=== PATIENT | male | born 1955 | race Caucasian/White ===

== ENCOUNTER 2016-11-07 13:53 | Inpatient (IN) | payer MEDICAID, OTHER ==
[~2016-11-07] VITALS: Ht 160 cm; Wt 84.1 kg
[~2016-11-07 13:53] MED LIST: LACTATED RINGER'S 1000 ML INJ 1,000 ML IV ONE; NEOSTIGMINE 3 MG/3 ML SYR IV ONE; NORMOSOL R INJ 1,000 ML IV ONE; ONDANSETRON HCL 4 MG/2 ML VIAL IV PUSH ONE; PHENYLEPH/NS 1000 MCG/10 ML SYR IV ONE; PROPOFOL 200 MG/20 ML AMP IV ONE; ePHEDrine/NS 25 MG/5 ML SYR IV ONE
[2016-11-07] MEDS ORDERED: DIPHTH/TETANUS/ACEL PERTUSSIS (BOOSTER) 0.5 ML VIAL/PFS IM ONE (13:58)
[2016-11-07] MEDS ORDERED: ceFAZolin 2 GM PREMIX 50 ML ONE (13:58)
[2016-11-07] MEDS ORDERED: MORPHINE SULFATE 8 MG/ML INJ ONE (14:01)
[2016-11-07] MEDS ORDERED: HYDROmorphone HCL PF 1 MG/ML VIAL ONE (14:05)
[2016-11-07 14:07] VITALS: O2SAT 99
[2016-11-07 14:16] LABS: I-STAT POTASSIUM 3.8 MMOL/L (3.5-4.9)
[2016-11-07 14:17] LABS: AUTOMATED NEUTROPHIL # 7.4 TH/MM3 (1.8-7.7); BASOPHIL # 0.2 TH/MM3 (0-0.2); BASOPHIL % 1.3 % (0.0-2.0); EOSINOPHIL # 0.1 TH/MM3 (0-0.4); HEMATOCRIT 40.4 % (39.0-51.0); HEMO FLAGS DIFF FINAL; LYMPH % 20.9 % (9.0-44.0); LYMPHOCYTE # 2.4 TH/MM3 (1.0-4.8); MEAN CELL VOLUME 97.1 FL (80.0-100.0); MEAN CORPUSCULAR HEMOGLOBIN 34.3 PG (27.0-34.0); MEAN CORPUSCULAR HGB CONC 35.3 % (32.0-36.0); MONO % 11.5 % (0.0-8.0); NEUT % 65.3 % (16.0-70.0); PLATELET COUNT 200 TH/MM3 (150-450); RED BLOOD COUNT 4.16 MIL/MM3 (4.50-5.90); RED CELL DISTRIBUTION WIDTH 12.6 % (11.6-17.2); WHITE BLOOD COUNT 11.4 TH/MM3 (4.0-11.0)
[2016-11-07 14:18] VITALS: BP 123/66; PULSE 66; RESP 15; O2SAT 97
[2016-11-07] MEDS ORDERED: LACTATED RINGER'S 1000 ML INJ 1,000 ML IV SCH (14:22)
[2016-11-07 14:28] LABS: APTT (PATIENT) 25.8 SEC (24.3-30.1); INTERNATIONAL NORMALIZED RATIO 0.9 RATIO; PROTHROMBIN TIME - PATIENT 10.2 SEC (9.8-11.6)
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
[2016-11-07] MEDS ORDERED: HYDROmorphone HCL PF 1 MG/ML VIAL IV PRN (14:30)
[2016-11-07] MEDS ORDERED: NALOXONE HCL 0.4 MG/ML AMP IV PRN (14:30)
[2016-11-07] MEDS ORDERED: GENTAMICIN SULFATE 80 MG/2 ML VIAL IM SCH (14:30)
[2016-11-07] MEDS ORDERED: Post-op Orders (for Pharmacy) MISC XX ONE (14:30)
[2016-11-07] MEDS ORDERED: oxyCODONE/ACETAMINOPHEN 10 MG/325 MG TAB PO PRN (14:30)
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
[2016-11-07] MEDS ORDERED: HYDROmorphone HCL PF 1 MG/ML VIAL IV PUSH PRN (14:45)
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
[2016-11-07 15:30] VITALS: BP 123/66
[2016-11-07] MEDS ORDERED: Post-op Orders (for Pharmacy) MISC XX SCH (15:45)
[2016-11-07] MEDS ORDERED: ceFAZolin INJ 1,000 MG VIAL ONE (15:48)
[2016-11-07] MEDS ORDERED: GENTAMICIN SULFATE 80 MG/2 ML VIAL ONE ×2 (15:49→17:10)
[2016-11-07] MEDS ORDERED: ACETAMINOPHEN 1000 MG/100 ML VIAL IV ONE (15:56)
[2016-11-07] MEDS ORDERED: MIDAZOLAM HCL 2 MG/2 ML VIAL ONE (15:56)
[2016-11-07] MEDS ORDERED: FAMOTIDINE 20 MG/2 ML VIAL ONE (15:56)
--- NOTE | 2016-11-07 15:56 | MH ---
cc: MD JOSE,ОЛЬГА DATE OF ADMISSION: 11/07/2016 ADMITTING DIAGNOSIS: Bilateral open comminuted tibia and fibula fractures. HISTORY OF PRESENT ILLNESS: This 50-mkg-dlhf-old male was transferred to our institution as a Priority One Trauma Alert. 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 The patient presents with bilateral open tibia fractures. PAST MEDICAL HISTORY: 1. Diabetes mellitus. 2. Hypertension. PAST SURGICAL HISTORY: CABG. MEDICATIONS: Not known. ALLERGIES: Not known. SOCIAL HISTORY: Not known. PHYSICAL EXAMINATION: GENERAL: The physical examination reveals a 52-xss-ljuf-old male in moderate distress. HEAD, EYES, EARS, NOSE, THROAT: Normocephalic. No trauma to the head. Pupils equal and reactive. Extraocular muscles intact. No hemotympanum. No miner sign. No raccoon's eyes. NECK: Bilateral carotid pulses. No bruits. CHEST: Clear. Bilateral breath sounds. HEART: Regular rhythm. ABDOMEN: Soft. Active bowel sounds. No rebound. No guarding. No masses. EXTREMITIES: The patient has bilateral femoral, bilateral popliteal, posterior tibial and dorsalis pedis pulses on palpation. He has bilateral comminuted tibia and fibula fractures on the left side and mid tibia on the right side, a proximal tibial fracture and then distally above the ankle. NEUROLOGIC: The patient is grossly intact. He is awake, alert and oriented. Motorically he is intact with limitations of moving his legs. He has severe pain in both. BACK: No injury to the back noted. IMPRESSION AND RECOMMENDATIONS: The patient was assessed according to trauma principals. Primary and secondary survey, resuscitation and definitive care were carried out. The patient is resuscitated with fluids, given antibiotics, tetanus and pain medication and is now admitted to the trauma service with orthopedic consult for washout and fixation today. CRITICAL CARE TIME: Thirty-eight (38) minutes. Ольга CARRASCO/SARAH /3:44 PM /3:51 PM
[2016-11-07] MEDS ORDERED: GENTAMICIN SULFATE 80 MG/2 ML VIAL IRRIGATION ONE (16:26)
[2016-11-07] MEDS ORDERED: PANTOPRAZOLE SODIUM 40 MG VIAL IV SCH (17:00)
[2016-11-07] MEDS ORDERED: GENTAMICIN/SOD CHL 80 MG/100 ML IV SCH (17:00)
[2016-11-07] MEDS ORDERED: fentaNYL CITRATE 250 MCG/5 ML AMP ONE (17:03)
[2016-11-07] MEDS ORDERED: BACITRACIN TOP OINT 15 GM TUBE ONE (18:09)
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
--- NOTE | 2016-11-07 18:26 | RADRPT ---
EXAM DATE/TIME: 11/07/2016 17:31 [facility] COMPARISON: No previous studies available for comparison. INDICATIONS : Ex-fix right ankle fracture. Trauma alert. MEDICAL HISTORY : None. SURGICAL HISTORY : None. ENCOUNTER: Subsequent ACUITY: 1 day PAIN SCORE: Non-responsive. LOCATION: Right ankle FINDINGS: 2 spot intraoperative fluoroscopic views of the right ankle demonstrate oblique comminuted fracture o f the distal tibia and fibular fracture with improved alignment and fibular external fixation intrame dullary pin placement. CONCLUSION: Postoperative changes. Mumtaz Cornelius MD on November 07, 2016 at 18:23 Board Certified Radiologist. This report was verified electronically.
[2016-11-07] MEDS ORDERED: DO NOT ADM ANY ANTICOAGULANT DRUGS PRN (18:33)
--- NOTE | 2016-11-07 19:42 | MB ---
cc: JOSE HART DATE OF CONSULTATION 11/07/2016 REASON FOR CONSULTATION Open bilateral tibia and fibula fractures. CONSULTING PHYSICIAN Dr. Anaya. 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 The car apparently slipped off blocks. The car pinned him against a wall. He had severe bilateral leg pain. He presented to the emergency room as a trauma alert. He is found to have bilateral open tibia and fibula fractures. He is currently awake and alert in the emergency department. He complains of bilateral leg pain. He denies loss of consciousness. Pain is worse with movement. PAST MEDICAL HISTORY Illnesses diabetes, hypertension and smoking dependence. SURGERIES Coronary artery bypass. MEDICATIONS Please see EMR for completed list of inpatient medications. ALLERGIES NO KNOWN DRUG ALLERGIES. SOCIAL HISTORY The patient smokes a pack a day. He does drink alcohol. He denies drug use. FAMILY HISTORY Noncontributory. REVIEW OF SYSTEMS The patient denies headache, visual changes, neck pain, chest pain, shortness of breath, abdominal pain, nausea or vomiting or recent weight loss. He complains of bilateral leg pain. PHYSICAL EXAMINATION GENERAL: The patient is a well-developed, well-nourished male in no acute distress. He is awake and alert. He is alert and oriented x3. VITAL SIGNS: Pulse 80, respirations 15, blood pressure 123/65, O2 sat 98% on 3 liters nasal cannula. HEAD: The patient is normocephalic. Pupils are equal. NECK: Soft, nontender. Trachea is midline. ABDOMEN: Soft, nontender, nondistended. EXTREMITIES: Examination of bilateral upper extremities reveals no pain with shoulder, elbow or wrist motion. He has intact sensation in all fingers. He has good cap refill in fingers. Radial pulses are palpable. Examination of left leg reveals no obvious pain or deformity about his hip or knee. He has a large laceration over his mid tibia. There is exposed bone. Dorsalis pedis pulses palpable. He has good cap refill in his foot. Examination of right leg reveals no obvious pain or deformity about his hip or knee. There is obvious deformity around his ankle. There is exposed tibia and fibula fracture noted. There is a large laceration over the ankle joint and posterior calf. X-RAYS X-rays of the left tibia were reviewed. The patient has a comminuted midshaft tibia fracture. X-rays of right ankle were reviewed. The patient has a displaced complex distal tibia and fibula fracture. IMPRESSION 1. Open right tibia and fibula fractures. 2. Open left tibia and fibula fractures. 3. Diabetes. 4. Smoking dependence. PLAN Treatment options were discussed with the patient. At this point I would recommend irrigation debridement of bilateral lower legs today with possible internal fixation versus possible external fixation of fractures. He will likely need multiple surgeries. Risks of surgery include bleeding, infection, injury to arteris, nerves or blood vessels, nonunion, malunion, need for amputation osteomyelitis, painful hardware as well as medical complications including blood clot, stroke, heart attack and . I had a lengthy discussion with the patient regarding the need to stop smoking. If he continues to smoke he has high risk of developing infection and need for amputation. All questions were answered. I will plan on surgery today. A mid-level provider in my office, nurse practitioner or PA, may see this patient on a follow-up basis and continue to implement the objective of this plan including: Starting or adjusting medications, injections of muscle, tendon, bursa or joints, cast application, orthotic or brace application, physical therapy, further radiographic studies including x-ray, MRI, CT, ultrasounds or bone scan, vascular studies, neurologic studies, or other specialist consultations, and proceeding with surgical management as appropriate. MD BASILIO Bazan/ROSEMARIE /6:02 PM /7:33 PM
[2016-11-07] MEDS: KETOROLAC TROMETHAMINE 30 MG/ML (IVP) VIAL IVP SCH (20:00)
[2016-11-07] MEDS: LACTATED RINGER'S 1000 ML INJ 1,000 ML IV SCH (20:00)
[2016-11-07 20:40] VITALS: BP 109/78; PULSE 83; RESP 18; TEMP 96.8; O2SAT 96
[2016-11-07] MEDS: ACETAMINOPHEN/HYDROcodone 325 MG/10 MG TAB PO PRN (20:57)
[2016-11-07] MEDS: ONDANSETRON HCL 4 MG/2 ML VIAL IV PRN (21:36)
[2016-11-07] MEDS: SODIUM CHLORIDE 0.9% FLUSH 10 ML FLUSH IV FLUSH SCH (21:42)
[2016-11-07] MEDS: DOCUSATE SODIUM 100 MG CAP PO SCH (21:43)
[2016-11-08] VITALS (8 sets, daily range): BP systolic 103–119; BP diastolic 58–65; PULSE 69–85; RESP 18; TEMP 96.2–99; O2SAT 94–96
[2016-11-08] MEDS: ceFAZolin 2 GM PREMIX 50 ML IV SCH ×4 (00:42→22:58)
[2016-11-08] MEDS: GENTAMICIN 80 MG PREMIX 100 ML IV SCH ×4 (00:43→22:58)
[2016-11-08] MEDS: ACETAMINOPHEN/HYDROcodone 325 MG/10 MG TAB PO PRN ×6 (03:04→23:25)
[2016-11-08] MEDS: LACTATED RINGER'S 1000 ML INJ 1,000 ML IV SCH ×2 (03:07→07:51)
[2016-11-08] MEDS: MORPHINE SULFATE 4 MG/ML INJ IV PUSH PRN ×2 (04:45→07:50)
[2016-11-08] MEDS: KETOROLAC TROMETHAMINE 30 MG/ML (IVP) VIAL IVP SCH ×2 (05:53→18:21)
--- NOTE | 2016-11-08 06:56 | PD.ORT.PN ---
Subjective Subjective Remarks s/p I&D with exfix application bilateral tibias s/p wound vac application left tibia reports pain. otherwise no new complaints. Objective Vitals Vital Signs Date Time Temp Pulse Resp B/P Pulse Ox O2 Delivery O2 Flow Rate FiO2 11/08/16 04:30 98.7 76 18 105/58 96 11/08/16 00:35 96.2 69 18 103/61 96 11/07/16 20:40 96.8 83 18 109/78 96 11/07/16 20:20 70 14 119/68 97 Nasal Cannula 2 11/07/16 20:12 Room Air 11/07/16 20:00 72 14 122/62 100 Nasal Cannula 2 11/07/16 19:46 78 14 119/63 100 Nasal Cannula 2 11/07/16 19:45 70 14 114/70 99 Nasal Cannula 2 11/07/16 19:30 78 14 119/63 100 Nasal Cannula 2 11/07/16 19:15 71 14 122/63 98 Nasal Cannula 2 11/07/16 19:00 67 14 121/67 97 Nasal Cannula 2 11/07/16 18:45 69 14 159/75 96 Nasal Cannula 2 11/07/16 18:30 98.6 79 14 133/77 97 Nasal Cannula 2 11/07/16 15:30 80 15 123/66 98 11/07/16 14:18 66 15 123/66 97 11/07/16 14:07 99 3.00 I/O 11/07/16 11/07/16 11/07/16 11/08/16 11/08/16 11/08/16 07:00 15:00 23:00 07:00 15:00 23:00 Intake Total 3240 ml 680 ml Output Total 1450 ml 100 ml Balance 1790 ml 580 ml Intake Oral 240 ml IV Total 700 ml 680 ml Other 2300 ml Output Urine Total 1100 ml Drainage Total 200 ml 100 ml Estimated Blood Loss 150 ml # Bowel Movements 0 Result Diagram: 11/07/16 135 Other Results Laboratory Tests Test 11/07/16 13:55 Prothrombin Time 10.2 SEC (9.8-11.6) Prothromb Time International 0.9 RATIO Ratio Imaging Last 24 hours Impressions Pelvis X-Ray 11/07/16 1355 Signed Impressions: Service Date/Time: Monday, November 07, 2016 13:34 - CONCLUSION: No acute disease. Behzad Finch Jr., MD Chest X-Ray 11/07/16 4218 Signed Impressions: Service Date/Time: Monday, November 07, 2016 13:34 - CONCLUSION: No acute disease. Jac Gonzales MD Objective Remarks RLE: Dressings clean and dry. intact. NVI with full sensation and motor function. +exfix. pin sites. clean LLE: +vac. good seal. exfix in place. pin sites clean. no sensation over medial foot. inability to dorsiflex or flex toes/foot. Assessment & Plan Assessment and Plan 1) Bilateral Open Tibia Fractures s/p I&D with exfix/wound vac application - POD 1 -NWB BLE -maintain vac left leg - 125mmHg, intermittent, 3:1 -maintain dressings right leg - pin care BID -npo after MN -hold lovenox -sign consents -potential surgery tomorrow Jef Steve Nov 08, 2016 06:56
[2016-11-08 07:51] LABS: HEMATOCRIT 28.4 % (39.0-51.0); REVIEW FLAG FINAL
[2016-11-08] MEDS: SODIUM CHLORIDE 0.9% FLUSH 10 ML FLUSH IV FLUSH SCH ×2 (07:52→19:46)
[2016-11-08] MEDS: DOCUSATE SODIUM 100 MG CAP PO SCH (07:57)
[2016-11-08] MEDS ORDERED: ACETAMINOPHEN 325 MG TAB PO PRN (08:15)
[2016-11-08] MEDS ORDERED: GLUCAGON 1 MG/ML VIAL OTHER PRN (08:15)
[2016-11-08] MEDS ORDERED: MAGNESIUM HYDROXIDE SUSP 30 ML CUP PO PRN (08:15)
[2016-11-08] MEDS ORDERED: cloNIDine HCL 0.1 MG TAB PO PRN (08:15)
[2016-11-08] MEDS ORDERED: ENALAPRILAT 1.25 MG/ML VIAL IV PRN (08:15)
[2016-11-08] MEDS ORDERED: DEXTROSE 50% IN WATER 50 ML VIAL(D50) IV PRN (08:15)
--- NOTE | 2016-11-08 08:15 | PD.CONS ---
[facility] By Dr Anaya Reason for Consult Medical management of diabetes disease, hypertension and coronary artery disease Primary Care Physician Unknown Diagnoses: History of Present Illness This is a 60sh male who was brought in as a TRAUMA ALERT. He was working on a car when the car apparently slipped off the blocks. The car pinned him against a wall. He had severe bilateral leg pain and sustained bilateral open tibial and fibular fractures. He underwent I and D and external fixation. Wound VAC has been applied on the left lower extremity. He is on IV Ancef and gentamicin. Consultation has been requested by patient's attending to evaluate and manage multiple medical conditions which are CAD, hypertension and diabetes mellitus. He underwent CABG in 2010 and has been pain-free on aspirin, lisinopril, propranolol and pravastatin. He also has hypertension which is controlled on MARGIE inhibitor and beta gil. He also has diabetes mellitus also stable on metformin. Review of Systems Except as stated in HPI: all other systems reviewed are Neg Past Family Social History Allergies: Coded Allergies: No Known Allergies (Unverified , 11/07/16) Past Medical History As previously mentioned Past Surgical History CABG Reported Medications Protonix (Pantoprazole Sodium) 40 Mg Tab 40 Mg PO DAILY Ferrous Sulfate 325 Mg (65 Mg Iron) Tablet 325 Mg PO DAILY Metformin (Metformin HCl) 500 Mg Tab 500 Mg PO BIDPC With meals Propranolol (Propranolol HCl) 80 Mg Tab 80 Mg PO Q12HR Nitroglycerin SL (Nitroglycerin) 0.4 Mg Subl 0.4 Mg SL DIRECTED PRN ONE TABLET UNDER THE TONGUE NEEDED FOR CHEST PAIN, MAY REPEAT EVERY FIVE MINUTES FOR A TOTAL OF 3 DOSES OR CALL 911 IF NO RELIEF Lisinopril 5 Mg Tab 25 Mg PO DAILY Pravastatin 80 Mg Tab 80 Mg PO DAILY Aspirin 81 Mg Chew 81 Mg CHEW DAILY Family History Coronary artery disease Social History He smokes and drinks Physical Exam Vital Signs Vital Signs Date Time Temp Pulse Resp B/P Pulse Ox O2 Delivery O2 Flow Rate FiO2 11/08/16 07:55 96 21 11/08/16 04:30 98.7 76 18 105/58 96 11/08/16 00:35 96.2 69 18 103/61 96 11/07/16 20:40 96.8 83 18 109/78 96 11/07/16 20:20 70 14 119/68 97 Nasal Cannula 2 11/07/16 20:12 Room Air 7/21/17 20:00 72 14 122/62 100 Nasal Cannula 2 11/07/16 19:46 78 14 119/63 100 Nasal Cannula 2 11/07/16 19:45 70 14 114/70 99 Nasal Cannula 2 11/07/16 19:30 78 14 119/63 100 Nasal Cannula 2 11/07/16 19:15 71 14 122/63 98 Nasal Cannula 2 11/07/16 19:00 67 14 121/67 97 Nasal Cannula 2 11/07/16 18:45 69 14 159/75 96 Nasal Cannula 2 11/07/16 18:30 98.6 79 14 133/77 97 Nasal Cannula 2 11/07/16 15:30 80 15 123/66 98 11/07/16 14:18 66 15 123/66 97 11/07/16 14:07 99 3.00 Physical Exam GENERAL: This is a well-nourished, well-developed patient, in no apparent distress. SKIN: No rashes, ecchymoses or lesions. Cool and dry. HEAD: Atraumatic. Normocephalic. No temporal or scalp tenderness. EYES: Pupils equal round and reactive. Extraocular motions intact. No scleral icterus. No injection or drainage. ENT: Nose without bleeding, purulent drainage or septal hematoma. Throat without erythema, tonsillar hypertrophy or exudate. Uvula midline. Airway patent. NECK: Trachea midline. No JVD or lymphadenopathy. Supple, nontender, no meningeal signs. CARDIOVASCULAR: Regular rate and rhythm without murmurs, gallops, or rubs. RESPIRATORY: Clear to auscultation. Breath sounds equal bilaterally. No wheezes , rales, or rhonchi. GASTROINTESTINAL: Abdomen soft, non-tender, nondistended. No hepato-splenomegaly , or palpable masses. No guarding. MUSCULOSKELETAL: Extremities without clubbing, cyanosis, or edema. Ex fix BLE. Decreased left toe movements NEUROLOGICAL: Awake and alert. Cranial nerves II through XII intact. Normal speech. Intermittent bilateral upper intention tremors Laboratory Laboratory Tests Test 11/07/16 11/08/16 13:55 07:19 White Blood Count 11.4 Red Blood Count 4.16 Hemoglobin 14.3 9.9 Bedside Hemoglobin 13.9 Hematocrit 40.4 28.4 Bedside Hematocrit 41.0 Mean Corpuscular Volume 97.1 Mean Corpuscular Hemoglobin 34.3 Mean Corpuscular Hemoglobin 35.3 Concent Red Cell Distribution Width 12.6 Platelet Count 200 Mean Platelet Volume 7.8 Neutrophils (%) (Auto) 65.3 Lymphocytes (%) (Auto) 20.9 Monocytes (%) (Auto) 11.5 Eosinophils (%) (Auto) 1.0 Basophils (%) (Auto) 1.3 Neutrophils # (Auto) 7.4 Lymphocytes # (Auto) 2.4 Monocytes # (Auto) 1.3 Eosinophils # (Auto) 0.1 Basophils # (Auto) 0.2 CBC Comment DIFF FINAL Differential Comment Prothrombin Time 10.2 Prothromb Time International 0.9 Ratio Activated Partial 25.8 Thromboplast Time Bedside Sodium 140 Bedside Potassium 3.8 Bedside Chloride 108 Bedside Blood Urea Nitrogen 13 Bedside Creatinine 0.9 Bedside Glucose 116 Blood Type O POSITIVE Antibody Screen NEGATIVE Crossmatch Leukocyte-Reduced Red Blood Cells Blood Bank Comment Result Diagram: 11/08/16 0719 Imaging EKG tracing interpreted by me with sinus rhythm Chest x-ray image interpreted with no acute cardiopulmonary disease Last Impressions Pelvis X-Ray 11/07/16 1355 Signed Impressions: Service Date/Time: Monday, November 07, 2016 13:34 - CONCLUSION: No acute disease. Behzad Finch Jr., MD Chest X-Ray 11/07/16 1355 Signed Impressions: Service Date/Time: Monday, November 07, 2016 13:34 - CONCLUSION: No acute disease. Jac Gonzales MD Tibia/Fibula X-Ray 11/07/16 0000 Signed Impressions: Service Date/Time: Monday, November 07, 2016 16:44 - CONCLUSION: Postoperative changes. Mumtaz Cornelius MD Ankle X-Ray 11/07/16 0000 Signed Impressions: Service Date/Time: Monday, November 07, 2016 17:31 - CONCLUSION: Postoperative changes. Mumtaz Cornelius MD Assessment and Plan Assessment and Plan This is a male who was brought in as a TRAUMA ALERT. He was working on a car when the car apparently slipped off the blocks. The car pinned him against a wall. He had severe bilateral leg pain and sustained bilateral open tibial and fibular fractures. He underwent I and D and external fixation. Wound VAC has been applied on the left lower extremity. He is on IV Ancef and gentamicin. Continue postoperative care with physical therapy, wound care, incentive spirometry, pain management with Lortab and IV morphine and DVT prophylaxis with Lovenox currently on hold for possible surgery in the morning. Consultation has been requested by patient's attending to evaluate and manage multiple medical conditions which are CAD, hypertension and diabetes mellitus. Coronary artery disease. EKG tracing with sinus rhythm. He is pain-free. Restart aspirin if okay with orthopedic surgery, MARGIE inhibitor, beta gil and statin Hypertension. Stable. Continue above-named mentioned medications. Monitor with as needed clonidine and IV Vasotec Diabetes mellitus. Monitor fingerstick sugars sliding scale coverage. Hold metformin for now Tobacco abuse. Counseled Alcohol abuse. CIWA protocol. Counseled Chronic tremors. Patient on Inderal Leukocytosis likely reactive. Monitor Discussed Condition With Patient Trent Leon MD Nov 08, 2016 08:15
[2016-11-08] MEDS ORDERED: METF500T PO (10:32)
[2016-11-08] MEDS ORDERED: PROT40TA PO (10:32)
[2016-11-08] MEDS ORDERED: NITR1SUB3 SL (10:32)
[2016-11-08] MEDS ORDERED: PRAV80TA2 PO (10:32)
[2016-11-08] MEDS ORDERED: LISI-519 PO (10:32)
[2016-11-08] MEDS ORDERED: PROP80TA PO (10:32)
[2016-11-08] MEDS ORDERED: FERR325T8 PO (10:32)
[2016-11-08] MEDS ORDERED: ASPI81CH CHEW (10:32)
[2016-11-08] MEDS: INSULIN ASPART SUPPLEMENTAL SCALE SQ SCH ×3 (10:57→20:21)
--- NOTE | 2016-11-08 12:26 | EKG ---
Date Performed: 11/07/2016 Time Performed: 15:53:25 PTAGE: 89 years EKG: Sinus rhythm NORMAL ECG INTERPRETATION BASED ON A DEFAULT AGE OF 40 YEARS NO PREVIOUS TRACING DOCTOR: Jhon De Luna Interpretating Date/Time 11/08/2016 12:20:39
[2016-11-08] MEDS ORDERED: LACTULOSE SYRUP 20 GM/30 ML CUP PO PRN (12:45)
[2016-11-08] MEDS ORDERED: PILL SPLITTER OTHER PRN (12:45)
[2016-11-08] MEDS ORDERED: NITROGLYCERIN 0.4 MG SL 25 TABS/BTL SL PRN (12:45)
--- NOTE | 2016-11-08 12:59 | HHI.PR ---
Subjective Subjective Notes S/P Bilateral tib/fib I & D, bilateral external fixation Complains of leg pain Reports he has a baseline tremor, denies ETOH abuse Objective Vitals/I&O Vital Signs Date Time Temp Pulse Resp B/P Pulse Ox O2 Delivery O2 Flow Rate FiO2 11/08/16 11:39 98.8 78 18 119/65 94 11/08/16 07:55 21 11/07/16 20:20 Nasal Cannula 2 Labs Laboratory Tests Test 11/07/16 11/08/16 13:55 07:19 White Blood Count 11.4 Red Blood Count 4.16 Hemoglobin 14.3 9.9 Bedside Hemoglobin 13.9 Hematocrit 40.4 28.4 Bedside Hematocrit 41.0 Mean Corpuscular Volume 97.1 Mean Corpuscular Hemoglobin 34.3 Mean Corpuscular Hemoglobin 35.3 Concent Red Cell Distribution Width 12.6 Platelet Count 200 Mean Platelet Volume 7.8 Neutrophils (%) (Auto) 65.3 Lymphocytes (%) (Auto) 20.9 Monocytes (%) (Auto) 11.5 Eosinophils (%) (Auto) 1.0 Basophils (%) (Auto) 1.3 Neutrophils # (Auto) 7.4 Lymphocytes # (Auto) 2.4 Monocytes # (Auto) 1.3 Eosinophils # (Auto) 0.1 Basophils # (Auto) 0.2 CBC Comment DIFF FINAL Differential Comment Prothrombin Time 10.2 Prothromb Time International 0.9 Ratio Activated Partial 25.8 Thromboplast Time Bedside Sodium 140 Bedside Potassium 3.8 Bedside Chloride 108 Bedside Blood Urea Nitrogen 13 Bedside Creatinine 0.9 Bedside Glucose 116 Blood Type O POSITIVE Antibody Screen NEGATIVE Crossmatch Leukocyte-Reduced Red Blood Cells Blood Bank Comment Radiology Last Impressions Pelvis X-Ray 11/07/16 1355 Signed Impressions: Service Date/Time: Monday, November 07, 2016 13:34 - CONCLUSION: No acute disease. Behzad Finch Jr., MD Chest X-Ray 11/07/16 1355 Signed Impressions: Service Date/Time: Monday, November 07, 2016 13:34 - CONCLUSION: No acute disease. Jac Gonzales MD Tibia/Fibula X-Ray 11/07/16 0000 Signed Impressions: Service Date/Time: Monday, November 07, 2016 16:44 - CONCLUSION: Postoperative changes. Mumtaz Cornelius MD Ankle X-Ray 11/07/16 0000 Signed Impressions: Service Date/Time: Monday, November 07, 2016 17:31 - CONCLUSION: Postoperative changes. Mumtaz Cornelius MD Narrative Exam GENERAL: Adult male in his 60s lying in bed. SKIN: Warm and dry. HEAD: Atraumatic. Normocephalic. NECK: Trachea midline. No JVD. CARDIOVASCULAR: Regular rate and rhythm. RESPIRATORY: No accessory muscle use. Lungs clear to auscultation. Breath sounds equal bilaterally. GASTROINTESTINAL: Abdomen soft, non-tender, nondistended. + BS. MUSCULOSKELETAL: Extremities without cyanosis, or edema. Bilateral legs with external fixators in place. LLE with wound vac. + pulses NEUROLOGICAL: Awake and alert. Normal speech. Patient with tremors in hands. A/P Assessment and Plan INJURIES: BILAT Open tib/fib fxs 11/07: Bilateral tib/fib I & D, bilateral external fixation PMHx: HLD, DM, HTN, CAD, CVA, GERD, tremor? Diet: ADA Pulmonary: IS Pain: [place], Toradol IV, Added Neurontin 400 TID, Increased IV Morphine Activity:BR. PT ordered (NWB BLE) GI: PO Protonix Bowel: Elke-colace, PRN Lactulose. LBM 0 DVT: SCDs, Lovenox 30 BID BILAT Open tib/fib fxs Orthopedics consulted 11/07: Bilateral tib/fib I & D, bilateral external fixation Pain control PT ordered- W/C training NWB BLE ABX: Gentamycin Ortho plans to take patient back to the OR possible tomorrow Plan of care discussed with patient, family and RN at bedside. Case management consulted to assist with discharge planning. Alina Sosa Nov 08, 2016 12:59
[2016-11-08] MEDS ORDERED: LORazepam 2 MG/ML VIAL IV PUSH PRN ×4 (13:00)
[2016-11-08] MEDS ORDERED: FLUMAZENIL 0.5 MG/5 ML VIAL IV PUSH PRN (13:00)
[2016-11-08] MEDS ORDERED: HALOPERIDOL LACTATE 5 MG/ML AMP IM PRN (13:00)
[2016-11-08] MEDS ORDERED: LORazepam 1 MG TAB PO PRN (13:00)
[2016-11-08] MEDS ORDERED: LORazepam 2 MG TAB PO PRN (13:00)
[2016-11-08] MEDS: PANTOPRAZOLE SOD 40 MG DELAYED RELEASE TAB PO SCH (13:15)
[2016-11-08] MEDS: CALCIUM CARBONATE 500 MG CHEWABLE TAB CHEW PRN (13:15)
[2016-11-08] MEDS: ASPIRIN 81 MG CHEW TAB CHEW SCH (13:15)
[2016-11-08] MEDS: MORPHINE SULFATE 8 MG/ML INJ IV PUSH PRN (13:15)
[2016-11-08] MEDS: FERROUS SULFATE 325 MG (65 MG ELEMENTAL IRON) TAB PO SCH (13:16)
[2016-11-08] MEDS: GABAPENTIN 400 MG CAP PO SCH ×2 (13:16→18:20)
[2016-11-08] MEDS: LISINOPRIL 10 MG TAB PO SCH (13:16)
[2016-11-08] MEDS: DOCUSATE SODIUM 50 MG/SENNA 8.6 MG TAB PO SCH ×2 (13:16→19:44)
[2016-11-08] MEDS ORDERED: ENOXAPARIN SODIUM 30 MG/0.3 ML SYRINGE SQ SCH (17:00)
[2016-11-08] MEDS: PRAVASTATIN SOD 80 MG TAB PO SCH (19:45)
[2016-11-08] MEDS: PROPRANOLOL HCL 80 MG TAB PO SCH (19:47)
[2016-11-08] MEDS ORDERED: SENN1TAB PO (20:12)
[2016-11-08] MEDS ORDERED: MAGN400S PO (20:12)
[2016-11-08] MEDS ORDERED: COMMODE 3-IN-11 MIS (20:16)
[2016-11-08] MEDS ORDERED: TUB TRANSFER BO1 MIS (20:16)
[2016-11-08] MEDS ORDERED: BEDSIDE COMMODE1 MI1 (20:16)
[2016-11-08] MEDS ORDERED: WHEEMIS3 (20:16)
[2016-11-09] VITALS (7 sets, daily range): BP systolic 93–121; BP diastolic 55–69; PULSE 73–95; RESP 18–20; TEMP 96.9–100.4; O2SAT 92–95
[2016-11-09] MEDS ORDERED: INSULIN HUMAN REGULAR 1,000 UNITS/10 ML VIAL SQ PRN (00:45)
[2016-11-09] MEDS ORDERED: CHLORHEXIDINE GLUCONATE 2 % 1 PACK (2 CLOTHS) TOPICAL PRN (00:45)
[2016-11-09] MEDS ORDERED: POVIDONE IODINE 5% (ANTISEPSIS KIT) 4 APPLICATIONS EACH NARE PRN (00:45)
[2016-11-09] MEDS ORDERED: METOPROLOL TARTRATE 25 MG TAB PO PRN (00:45)
[2016-11-09] MEDS ORDERED: LACTATED RINGER'S 1000 ML IV PRN (00:45)
[2016-11-09] MEDS ORDERED: SODIUM CHLORID 0.9% 500 ML IV PRN (00:45)
[2016-11-09] MEDS: ACETAMINOPHEN/HYDROcodone 325 MG/10 MG TAB PO PRN ×5 (03:27→23:46)
[2016-11-09] MEDS: MORPHINE SULFATE 8 MG/ML INJ IV PUSH PRN ×3 (04:08→17:45)
[2016-11-09] MEDS: KETOROLAC TROMETHAMINE 30 MG/ML (IVP) VIAL IVP SCH ×2 (06:26→17:47)
[2016-11-09] MEDS: INSULIN ASPART SUPPLEMENTAL SCALE SQ SCH ×4 (06:26→20:16)
--- NOTE | 2016-11-09 06:40 | PD.ORT.PN ---
Subjective Subjective Remarks s/p I&D with exfix application bilateral tibias s/p wound vac application left tibia reports pain. otherwise no new complaints. Objective Vitals Vital Signs Date Time Temp Pulse Resp B/P Pulse Ox O2 Delivery O2 Flow Rate FiO2 11/09/16 04:04 99.0 84 18 98/66 95 11/09/16 00:07 98.0 74 18 95/58 95 11/08/16 23:14 80 11/08/16 20:35 98.5 82 18 109/60 96 11/08/16 20:21 18 11/08/16 19:36 18 11/08/16 16:00 99.0 85 18 118/62 95 11/08/16 11:39 98.8 78 18 119/65 94 11/08/16 08:00 98.7 77 18 109/62 94 11/08/16 07:55 96 21 I/O 11/08/16 11/08/16 11/08/16 11/09/16 11/09/16 11/09/16 07:00 15:00 23:00 07:00 15:00 23:00 Intake Total 920 ml 1816 ml 420 ml Output Total 500 ml 1025 ml 1000 ml 50 ml Balance 420 ml 791 ml -580 ml -50 ml Intake Oral 240 ml 900 ml 420 ml IV Total 680 ml 916 ml Output Urine Total 400 ml 950 ml 1000 ml Drainage Total 100 ml 75 ml 50 ml # Bowel Movements 0 0 0 Result Diagram: 11/08/16 0719 Imaging Last 24 hours Impressions Pelvis X-Ray 11/07/16 1355 Signed Impressions: Service Date/Time: Monday, November 07, 2016 13:34 - CONCLUSION: No acute disease. Behzad Finch Jr., MD Chest X-Ray 11/07/16 1355 Signed Impressions: Service Date/Time: Monday, November 07, 2016 13:34 - CONCLUSION: No acute disease. Jac Gonzales MD Objective Remarks RLE: Dressings clean and dry. intact. NVI with full sensation and motor function. +exfix. pin sites. clean LLE: +vac. good seal. exfix in place. pin sites clean. no sensation over medial foot. inability to dorsiflex or flex toes/foot. Assessment & Plan Assessment and Plan 1) Bilateral Open Tibia Fractures s/p I&D with exfix/wound vac application - POD 2 -NWB BLE -maintain vac left leg - 125mmHg, intermittent, 3:1 -maintain dressings right leg - pin care BID -no surgery today. -restart diet -npo after MN -hold lovenox -sign consents -potential surgery tomorrow Jef Steve Nov 09, 2016 06:40
[2016-11-09 07:00] LABS: AUTOMATED NEUTROPHIL # 10.6 TH/MM3 (1.8-7.7); BASOPHIL % 0.3 % (0.0-2.0); EOSINOPHIL # 0.1 TH/MM3 (0-0.4); EOSINOPHIL % 0.7 % (0.0-4.0); HEMATOCRIT 26.9 % (39.0-51.0); HEMO FLAGS DIFF FINAL; LYMPH % 7.1 % (9.0-44.0); LYMPHOCYTE # 0.9 TH/MM3 (1.0-4.8); MEAN CELL VOLUME 97.7 FL (80.0-100.0); MEAN CORPUSCULAR HEMOGLOBIN 34.5 PG (27.0-34.0); MEAN CORPUSCULAR HGB CONC 35.3 % (32.0-36.0); MONO % 11.6 % (0.0-8.0); NEUT % 80.3 % (16.0-70.0); PLATELET COUNT 114 TH/MM3 (150-450); RED BLOOD COUNT 2.76 MIL/MM3 (4.50-5.90); RED CELL DISTRIBUTION WIDTH 12.4 % (11.6-17.2); WHITE BLOOD COUNT 13.3 TH/MM3 (4.0-11.0)
[2016-11-09 07:23] LABS: ALT (GPT) 17 U/L (12-78); ANION GAP 7 MEQ/L (5-15); AST (GOT) 61 U/L (15-37); BICARBONATE 28.2 MEQ/L (21.0-32.0); BLOOD UREA NITROGEN 6 MG/DL (7-18); CHLORIDE 104 MEQ/L (98-107); GLOMERULAR FILTRATION RATE 132 ML/MIN (>89); MAGNESIUM 1.9 MG/DL (1.5-2.5); POTASSIUM 3.6 MEQ/L (3.5-5.1); SODIUM (NA) 139 MEQ/L (136-145)
[2016-11-09 07:25] LABS: ALKALINE PHOSPHATASE 52 U/L (45-117); TOTAL BILIRUBIN ADULT 0.6 MG/DL (0.2-1.0)
[2016-11-09] MEDS: GENTAMICIN 80 MG PREMIX 100 ML IV SCH ×3 (08:45→23:43)
[2016-11-09] MEDS: ceFAZolin 2 GM PREMIX 50 ML IV SCH ×3 (08:45→23:42)
[2016-11-09] MEDS: DOCUSATE SODIUM 50 MG/SENNA 8.6 MG TAB PO SCH ×2 (08:46→20:15)
[2016-11-09] MEDS: PROPRANOLOL HCL 80 MG TAB PO SCH ×3 (08:48→20:19)
[2016-11-09] MEDS: MULTIVITAMINS/MINERALS THERAPEUTIC TAB PO SCH (08:48)
[2016-11-09] MEDS: FOLIC ACID 1 MG TAB PO SCH (08:48)
[2016-11-09] MEDS: FERROUS SULFATE 325 MG (65 MG ELEMENTAL IRON) TAB PO SCH (08:48)
[2016-11-09] MEDS: GABAPENTIN 400 MG CAP PO SCH ×3 (08:48→17:47)
[2016-11-09] MEDS: ASPIRIN 81 MG CHEW TAB CHEW SCH (08:48)
[2016-11-09] MEDS: THIAMINE HCL 100 MG TAB PO SCH (08:49)
[2016-11-09] MEDS: PANTOPRAZOLE SOD 40 MG DELAYED RELEASE TAB PO SCH (08:49)
[2016-11-09] MEDS: LISINOPRIL 10 MG TAB PO SCH (08:51)
[2016-11-09] MEDS: SODIUM CHLORIDE 0.9% FLUSH 10 ML FLUSH IV FLUSH SCH ×2 (08:51→20:15)
[2016-11-09] MEDS ORDERED: POTASSIUM CHLORIDE 20 MEQ CONTROLLED RELEASE TAB PO ONE (11:00)
--- NOTE | 2016-11-09 12:15 | HHI.PR ---
Subjective Subjective Notes PTD: 2 Patient sitting up in bed. No distress noted. Patient states, "I'll live, I guess." Objective Vitals/I&O Vital Signs Date Time Temp Pulse Resp B/P Pulse Ox O2 Delivery O2 Flow Rate FiO2 11/09/16 08:00 98.3 95 20 93/55 94 11/08/16 07:55 21 11/07/16 20:20 Nasal Cannula 2 Labs Laboratory Tests Test 11/09/16 06:09 White Blood Count 13.3 Red Blood Count 2.76 Hemoglobin 9.5 Hematocrit 26.9 Mean Corpuscular Volume 97.7 Mean Corpuscular Hemoglobin 34.5 Mean Corpuscular Hemoglobin 35.3 Concent Red Cell Distribution Width 12.4 Platelet Count 114 Mean Platelet Volume 8.2 Neutrophils (%) (Auto) 80.3 Lymphocytes (%) (Auto) 7.1 Monocytes (%) (Auto) 11.6 Eosinophils (%) (Auto) 0.7 Basophils (%) (Auto) 0.3 Neutrophils # (Auto) 10.6 Lymphocytes # (Auto) 0.9 Monocytes # (Auto) 1.5 Eosinophils # (Auto) 0.1 Basophils # (Auto) 0.0 CBC Comment DIFF FINAL Differential Comment Sodium Level 139 Potassium Level 3.6 Chloride Level 104 Carbon Dioxide Level 28.2 Anion Gap 7 Blood Urea Nitrogen 6 Creatinine 0.62 Estimat Glomerular Filtration 132 Rate Random Glucose 112 Calcium Level 8.0 Magnesium Level 1.9 Total Bilirubin 0.6 Aspartate Amino Transf 61 (AST/SGOT) Alanine Aminotransferase 17 (ALT/SGPT) Alkaline Phosphatase 52 Total Protein 5.9 Albumin 2.6 Radiology Last Impressions Pelvis X-Ray 11/07/16 1355 Signed Impressions: Service Date/Time: Monday, November 07, 2016 13:34 - CONCLUSION: No acute disease. Behzad Finch Jr., MD Chest X-Ray 11/07/16 1355 Signed Impressions: Service Date/Time: Monday, November 07, 2016 13:34 - CONCLUSION: No acute disease. Jac Gonzales MD Tibia/Fibula X-Ray 11/07/16 0000 Signed Impressions: Service Date/Time: Monday, November 07, 2016 16:44 - CONCLUSION: Postoperative changes. Mumtaz Cornelius MD Ankle X-Ray 11/07/16 0000 Signed Impressions: Service Date/Time: Monday, November 07, 2016 17:31 - CONCLUSION: Postoperative changes. Mumtaz Cornelius MD Narrative Exam GENERAL: This is a 61-year-old male lying in bed. No distress noted. Pleasant and cooperative. SKIN: Warm and dry. HEAD: Atraumatic. Normocephalic. EYES: PERRLA ENT: No nasal bleeding or discharge. Mucous membranes pink and moist. NECK: Trachea midline. No JVD. CARDIOVASCULAR: Regular rate and rhythm. RESPIRATORY: No accessory muscle use. Lungs are clear to auscultation. Breath sounds equal bilaterally. No distress or dyspnea. GASTROINTESTINAL: BS + x 4 quads. Abdomen soft, non-tender, nondistended. MUSCULOSKELETAL: Extremities without cyanosis, or edema. Bilateral lower extremity ex-fixes in place . Pin sites intact and healthy . Wound vac noted to LEFT lower extremity. + peripheral pulses x 4 extremities. Warm with good capillary refill and sensation. MAEW. NEUROLOGICAL: Awake and alert. Normal speech and pattern. 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 PMHx: HLD, DM, HTN, CAD, CVA, GERD, tremor? INJURIES: BILAT Open tib/fib fxs Procedures: 11/07: Bilateral tib/fib I & D, bilateral external fixation w wound vac to LEFT 11/10: Back to OR with ortho Consults: Orthopedics. Hospitalists. Diet: Regular ADA diet. Tolerating po diet. Encourage good po intake with each meal. Pulmonary: Encourage good pulmonary toileting. IS at bedside and pt encouraged to use. Rationale for use explained to patient, and verbalized understanding. Intensified with acapella and EZ pap. Follow-up labs in the morning. DC IV fluids Hypertension management: Lisinopril. Propanolol. (Pravachol). PAIN Management: [place] 15 mg. Morphine 6 mg q 2h. Toradol 30 mg q 12 h. Neurontin 400 mg TID. CIWA protocol in place, with the addition of Haldol 2 mg PRN Activity: BR. PT and OT ordered. (NWB BLE) wheelchair training. GI prophylaxis: Protonix po. Bowel regimen: Elke-colace and MOM. Lactulose. LBM: 0 DVT prophylaxis: Mechanical VTE with SCDs. Chemical management with Lovenox 30 BID SQ - on hold for surgery tomorrow. DC Planning: Case management consulted for assistance with final discharge disposition. Emotional support provided to patient and family at bedside and plan of care discussed. Discussed with RN at bedside. Patient is hemodynamically stable and being managed on the med/surg floor. BILAT Open tib/fib fxs Orthopedics consulted and assisting in management and care 11/07: Bilateral tib/fib I & D, bilateral external fixation w wound vac to LEFT 11/10: Return to OR with ortho Pain management. PT and OT ordered Wheelchair training NWB BLE IV antibiotics DVT prophylaxis Hypertension Diabetes Hospitalist consulted and assisting in management and care Resume home medications - lisinopril. Propanolol. Resume Pravachol ADA diet Sliding-scale insulin EtOH abuse CIWA protocol Haldol 2 mg PRN MVI Serial neuro checks Monitor for withdrawal Problem Qualifiers (1) Fracture of tibia, left, open: Qualified Code: S82.255B - Type I or II open nondisplaced comminuted fracture of shaft of left tibia, initial encounter (2) Fracture of tibia, right, open: Qualified Code: S82.251C - Type III open displaced comminuted fracture of shaft of right tibia, initial encounter Josefina Yin Nov 09, 2016 12:15
--- NOTE | 2016-11-09 12:18 | HHI.PR ---
Subjective Remarks Follow-up bilateral lower extremity fractures. States he is doing okay pain currently managed. Requesting a clipper to cut avulsed skin right middle finger which he sustained 1 week ago when finger got caught. Dw RN, low normal BP from pain meds denies dizziness, syncope, chest pain and shortness of breath Objective Vitals Vital Signs Date Time Temp Pulse Resp B/P Pulse Ox O2 Delivery O2 Flow Rate FiO2 11/09/16 08:00 98.3 95 20 93/55 94 11/09/16 04:04 99.0 84 18 98/66 95 11/09/16 00:07 98.0 74 18 95/58 95 11/08/16 23:14 80 11/08/16 20:35 98.5 82 18 109/60 96 11/08/16 20:21 18 11/08/16 19:36 18 11/08/16 16:00 99.0 85 18 118/62 95 I/O 11/08/16 11/08/16 11/08/16 11/09/16 11/09/16 11/09/16 07:00 15:00 23:00 07:00 15:00 23:00 Intake Total 920 ml 1816 ml 420 ml 0 ml Output Total 500 ml 1025 ml 1000 ml 600 ml Balance 420 ml 791 ml -580 ml -600 ml Intake Oral 240 ml 900 ml 420 ml 0 ml IV Total 680 ml 916 ml Output Urine Total 400 ml 950 ml 1000 ml 550 ml Drainage Total 100 ml 75 ml 50 ml # Bowel Movements 0 0 0 0 Result Diagram: 11/09/1609 11/09/16 06 Objective Remarks Well-developed, well-nourished in no distress Lungs are clear equal expansion Regular rate and rhythm no murmur Intermittent intention tremors Bilateral lower extremities with external fixator. Decrease bowel movements worse on the left Procedures s/p I&D with exfix application bilateral tibias s/p wound vac application left tibia With the assistance of RN, under sterile technique the avulsed skin of the right middle finger was clipped. No bleeding noted. Patient gave consent A/P Problem List: (1) Fracture of tibia, left, open ICD Code: S82.202B Status: Acute (2) Fracture of tibia, right, open ICD Code: S82.201B Status: Acute Assessment and Plan This is a male who was brought in as a TRAUMA ALERT. He was working on a car when the car apparently slipped off the blocks. The car pinned him against a wall. He had severe bilateral leg pain and sustained bilateral open tibial and fibular fractures. He underwent I and D and external fixation. Wound VAC has been applied on the left lower extremity. He is on IV Ancef and gentamicin. Continue postoperative care with physical therapy, wound care, incentive spirometry, pain management with Lortab and IV morphine and DVT prophylaxis with Lovenox currently on hold for possible surgery in the morning. Consultation has been requested by patient's attending to evaluate and manage multiple medical conditions which are CAD, hypertension and diabetes mellitus. Coronary artery disease. EKG tracing with sinus rhythm. He is pain-free. Restart aspirin if okay with orthopedic surgery, MARGIE inhibitor, beta gil and statin Hypertension. Low normal BP readings likely secondary to narcotic. He is asymptomatic. Continue above-named mentioned medications with hold parameters. Monitor with as needed clonidine and IV Vasotec Diabetes mellitus. Monitor fingerstick sugars sliding scale coverage. Hold metformin for now Tobacco abuse. Counseled Alcohol abuse. CIWA protocol. Counseled Slightly elevated AST secondary to call use. We'll monitor Chronic tremors. Patient on Inderal Leukocytosis likely reactive. Monitor. UA pending Wound care. Discharge Planning I spent 35 minutes [id number] with the patient or on the miller discussing the patient's disposition, prognosis, and plan of care with patient's caregivers. Over half the time spent was devoted to counseling the patient regarding care with caregivers Problem Qualifiers (1) Fracture of tibia, left, open: Qualified Code: S82.255B - Type I or II open nondisplaced comminuted fracture of shaft of left tibia, initial encounter (2) Fracture of tibia, right, open: Qualified Code: S82.251C - Type III open displaced comminuted fracture of shaft of right tibia, initial encounter Trent Leon MD Nov 09, 2016 12:18
[2016-11-09 12:19] LABS: HEMOGLOBIN A1a 1.7 %; HEMOGLOBIN A1b 0.7 %; HEMOGLOBIN Ao 84.9 %; HEMOGLOBIN F 1.3 %; HEMOGLOBIN LA1C 1.6 %; HEMOGLOBIN P3 3.3 %
[2016-11-09] MEDS: PRAVASTATIN SOD 80 MG TAB PO SCH (20:15)
[2016-11-10] VITALS (8 sets, daily range): BP systolic 100–110; BP diastolic 54–60; PULSE 83–105; RESP 16–19; TEMP 99–99.6; O2SAT 92–95
[2016-11-10] MEDS: MORPHINE SULFATE 8 MG/ML INJ IV PUSH PRN ×3 (02:56→18:43)
[2016-11-10] MEDS: KETOROLAC TROMETHAMINE 30 MG/ML (IVP) VIAL IVP SCH (05:32)
[2016-11-10] MEDS: INSULIN ASPART SUPPLEMENTAL SCALE SQ SCH ×4 (05:49→22:31)
--- NOTE | 2016-11-10 06:51 | PD.ORT.PN ---
Subjective Subjective Remarks s/p I&D with exfix application bilateral tibias s/p wound vac application left tibia reports pain. otherwise no new complaints. Objective Vitals Vital Signs Date Time Temp Pulse Resp B/P Pulse Ox O2 Delivery O2 Flow Rate FiO2 11/10/16 00:48 99.0 88 18 103/58 95 11/09/16 20:16 99.0 73 19 95/69 93 11/09/16 19:25 88 11/09/16 16:00 100.4 95 18 121/69 92 11/09/16 12:00 96.9 87 20 106/57 94 11/09/16 08:00 98.3 95 20 93/55 94 I/O 11/09/16 11/09/16 11/09/16 11/10/16 11/10/16 11/10/16 06:59 14:59 22:59 06:59 14:59 22:59 Intake Total 0 ml 1396 ml 360 ml 170 ml Output Total 600 ml 650 ml 650 ml 650 ml Balance -600 ml 746 ml -290 ml -480 ml Intake Oral 0 ml 600 ml 360 ml 0 ml IV Total 796 ml 170 ml Output Urine Total 550 ml 650 ml 650 ml 650 ml Drainage Total 50 ml 0 ml # Bowel Movements 0 0 0 0 Result Diagram: 11/09/16 0609 11/09/16 06 Imaging Last 24 hours Impressions Pelvis X-Ray 11/07/16 1355 Signed Impressions: Service Date/Time: Monday, November 07, 2016 13:34 - CONCLUSION: No acute disease. Behzad Finch Jr., MD Chest X-Ray 11/07/16 1355 Signed Impressions: Service Date/Time: Monday, November 07, 2016 13:34 - CONCLUSION: No acute disease. Jac Gonzales MD Objective Remarks RLE: Dressings clean and dry. intact. NVI with full sensation and motor function. +exfix. pin sites. clean LLE: +vac. good seal. exfix in place. pin sites clean. no sensation over medial foot. inability to dorsiflex or flex toes/foot. Assessment & Plan Assessment and Plan 1) Bilateral Open Tibia Fractures s/p I&D with exfix/wound vac application - POD 3 -NWB BLE -maintain vac left leg - 125mmHg, intermittent, 3:1 -maintain dressings right leg - pin care BID -surgery today Jef Steve Nov 10, 2016 06:51
[2016-11-10 07:13] LABS: HEMATOCRIT 26.9 % (39.0-51.0); MEAN CELL VOLUME 98.6 FL (80.0-100.0); MEAN CORPUSCULAR HEMOGLOBIN 33.7 PG (27.0-34.0); MEAN CORPUSCULAR HGB CONC 34.2 % (32.0-36.0); PLATELET COUNT 112 TH/MM3 (150-450); RED BLOOD COUNT 2.73 MIL/MM3 (4.50-5.90); RED CELL DISTRIBUTION WIDTH 12.5 % (11.6-17.2); REVIEW FLAG FINAL; WHITE BLOOD COUNT 11.8 TH/MM3 (4.0-11.0)
[2016-11-10 07:36] LABS: BICARBONATE 28.3 MEQ/L (21.0-32.0); POTASSIUM 3.8 MEQ/L (3.5-5.1)
[2016-11-10] MEDS: GENTAMICIN 80 MG PREMIX 100 ML IV SCH ×3 (08:16→16:30)
[2016-11-10] MEDS: ceFAZolin 2 GM PREMIX 50 ML IV SCH ×2 (08:16→16:29)
[2016-11-10] MEDS ORDERED: FAMOTIDINE 20 MG/2 ML VIAL ONE (08:51)
[2016-11-10] MEDS ORDERED: RESP: ALBUTEROL 2.5 MG/3 ML NEB (PRN) ONE (08:53)
--- NOTE | 2016-11-10 08:56 | MP ---
cc: SALBADOR HART DATE OF SURGERY 11/07/2016 PREOPERATIVE DIAGNOSES 1. Open left tibia and fibula fractures. 2. Open right tibia and fibula fractures. POSTOPERATIVE DIAGNOSES 1. Open left tibia and fibula fractures. 2. Open right tibia and fibula fractures. SURGEON Salbador Hart MD. MERCHANDISING EXECUTION MANAGER SURGEON Jef Steve PA-C. The surgical procedure was assisted by my physician assistant professor of marine biology. My PA's presence was necessary throughout this case for the manipulation and positioning of the surgical extremity. My PA was assisting me throughout the duration of this procedure. The skill set of a physician assistant professor of marine biology was medically necessary to complete this procedure. During the surgical case the surgical consultant was working at the back table and the physician assistant professor of marine biology was directly assisting me. PROCEDURE 1. Left tibia and fibula irrigation and debridement. 2. Open reduction of left tibia fracture. 3. External fixation of left tibia fracture. 4. Application of wound VAC dressing 5. Irrigation and debridement of right tibia and fibula fractures. 6. Open reduction of right tibia and fibula fractures. 7. External fixation of right tibia fracture. 8. Open reduction internal fixation of right fibula fracture. 9. Complex wound closure of a 20-cm laceration. DETAILS OF PROCEDURE This patient known as Jonathan Cloud was working on a car when it pinned him against a wall. He was seen and evaluated preoperatively. I had a lengthy discussion regarding the risks ad benefits of surgery. The operative sites were marked. He was brought to the OR and placed on the OR table. He was given IV sedation and general anesthesia. A time-out procedure was performed. The left leg was prepped with alcohol followed by Hibiclens and draped in the usual sterile fashion. The procedure began with irrigation and debridement of the open fracture. The skin, subcutaneous tissue, fascia and bone were sharply debrided. Multiple bone fragments were removed. Curettes were used to debride the edges of the bone. Overall the wound was relatively clean. Soft tissue was excised that was contaminated. The wound was now thoroughly irrigated with pulsatile lavage. Next attention was turned to external fixation. An external fixator construct was created. Two pins were placed in the tibia above the fracture and two pins were placed below the fracture. Next, attention was turned to reduction of the fracture. The fracture was manipulated. A fracture tenaculum was used to aid in reduction. Fluoroscopy confirmed well-aligned fracture. The external fixator was now tightened to hold reduction. At this point attention was turned to application of the wound VAC dressing. A VAC dressing was cut to fit the wound. Adaptic was placed around the skin edges. VAC dressing was sealed appropriately. Sterile dressings were applied. At this point the patient was repositioned. The right leg was now prepped with alcohol, followed by Hibiclens and draped in the usual fashion. The procedure began with irrigation and debridement of the right tibia and fibula fractures. The fractures were easily visualized through the open wound. The skin, subcutaneous tissue and fascia were sharply debrided. Curettes and rongeurs were used to debride soft tissue and bone. The wound was now thoroughly irrigated with 3 liters of sterile saline. Next, attention was turned to reduction of the tibia. The tibia was manipulated, the fracture reduced to a well-aligned position. The fractures was relatively unstable. At this point attention was turned to the fibula. A percutaneous incision was made distal to the fibula. A 2-mm Steinmann pin was now placed through the tip of the fibula. The fibula was held in a reduced position and visualized through the open wound. The Steinmann pin was placed in a retrograde fashion across the fracture. This was found to stabilize the fibula well. Next, attention was turned to external fixation. An external fixator construct was created. Two pins were placed at the tibia. A transcalcaneal pin was placed into the calcaneus. Additional pins were placed in the first and fifth metatarsals. External fixator construct was created. External fixator was tightened after the tibia was reduced. Fluoroscopy confirmed reduction of the tibia. The fracture was manipulated to achieve excellent reduction. Last, attention was turned to wound closure. The patient had two complex lacerations on his calf. The subcutaneous tissue was reapproximated 3-0 PDS. The skin was then closed with 3-0 nylon. A combination of retention sutures and vertical mattress sutures were utilized. Sterile dressings were applied. The patient was transferred to Recovery in stable condition. MD BASILIO Bazan/MIGUELINA /6:06 PM /8:35 AM
[2016-11-10] MEDS: GABAPENTIN 400 MG CAP PO SCH ×3 (09:00→16:30)
[2016-11-10] MEDS: SODIUM CHLORIDE 0.9% FLUSH 10 ML FLUSH IV FLUSH SCH ×2 (09:00→22:29)
[2016-11-10] MEDS: FERROUS SULFATE 325 MG (65 MG ELEMENTAL IRON) TAB PO SCH (09:00)
[2016-11-10] MEDS: PROPRANOLOL HCL 80 MG TAB PO SCH ×2 (09:00→22:31)
[2016-11-10] MEDS: MULTIVITAMINS/MINERALS THERAPEUTIC TAB PO SCH (09:00)
[2016-11-10] MEDS: DOCUSATE SODIUM 50 MG/SENNA 8.6 MG TAB PO SCH ×2 (09:00→22:24)
[2016-11-10] MEDS: ASPIRIN 81 MG CHEW TAB CHEW SCH (09:00)
[2016-11-10] MEDS: THIAMINE HCL 100 MG TAB PO SCH (09:00)
[2016-11-10] MEDS: LISINOPRIL 10 MG TAB PO SCH (09:00)
[2016-11-10] MEDS: FOLIC ACID 1 MG TAB PO SCH (09:00)
[2016-11-10] MEDS: LACTULOSE SYRUP 20 GM/30 ML CUP PO SCH (09:00)
[2016-11-10] MEDS: PANTOPRAZOLE SOD 40 MG DELAYED RELEASE TAB PO SCH (09:00)
[2016-11-10] MEDS: NEOMYCIN/POLYMYXIN/BACITRACIN OINT 15 GM TUBE TOPICAL SCH (09:00)
[2016-11-10] MEDS ORDERED: GENTAMICIN SULFATE 80 MG/2 ML VIAL ONE (09:02)
[2016-11-10] MEDS ORDERED: ACETAMINOPHEN 1000 MG/100 ML VIAL IV ONE (09:13)
--- NOTE | 2016-11-10 10:54 | HHI.PR ---
Subjective Subjective Notes PTD: 3 1000: IN OR 1100: In OR 1235: In OR 1430: In OR Objective Vitals/I&O Vital Signs Date Time Temp Pulse Resp B/P Pulse Ox O2 Delivery O2 Flow Rate FiO2 11/10/16 07:48 99.4 84 19 102/60 93 11/08/16 07:55 21 11/07/16 20:20 Nasal Cannula 2 Labs Laboratory Tests Test 11/10/16 06:47 White Blood Count 11.8 Red Blood Count 2.73 Hemoglobin 9.2 Hematocrit 26.9 Mean Corpuscular Volume 98.6 Mean Corpuscular Hemoglobin 33.7 Mean Corpuscular Hemoglobin 34.2 Concent Red Cell Distribution Width 12.5 Platelet Count 112 Mean Platelet Volume 7.5 Sodium Level 136 Potassium Level 3.8 Chloride Level 102 Carbon Dioxide Level 28.3 Anion Gap 6 Blood Urea Nitrogen 7 Creatinine 0.69 Estimat Glomerular Filtration 117 Rate Random Glucose 105 Calcium Level 8.2 Radiology Last Impressions Pelvis X-Ray 11/07/16 1355 Signed Impressions: Service Date/Time: Monday, November 07, 2016 13:34 - CONCLUSION: No acute disease. Behzad Finch Jr., MD Chest X-Ray 11/07/16 1355 Signed Impressions: Service Date/Time: Monday, November 07, 2016 13:34 - CONCLUSION: No acute disease. Jac Gonzales MD Tibia/Fibula X-Ray 11/07/16 0000 Signed Impressions: Service Date/Time: Monday, November 07, 2016 16:44 - CONCLUSION: Postoperative changes. Mumtaz Cornelius MD Ankle X-Ray 11/07/16 0000 Signed Impressions: Service Date/Time: Monday, November 07, 2016 17:31 - CONCLUSION: Postoperative changes. 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 PMHx: HLD, DM, HTN, CAD, CVA, GERD, tremor? INJURIES: BILAT Open tib/fib fxs Procedures: 11/07: Bilateral tib/fib I & D, bilateral external fixation w wound vac to LEFT 11/10: ORIF RIGHT tib/fib fx. I&D LEFT tib fx. Muscle flap. IM Nail LEFT tibia w wound vac. Consults: Orthopedics. Hospitalists. Diet: Regular ADA diet once awake after OR. Encourage good po intake with each meal. Pulmonary: Encourage good pulmonary toileting. IS at bedside and pt encouraged to use. Rationale for use explained to patient, and verbalized understanding. Intensified with acapella and EZ pap. Hypertension management: Lisinopril. Propanolol. (Pravachol). PAIN Management: Headrick 10 mg q 3 h. Morphine 6 mg q 2h. Toradol 30 mg q 12 h. Neurontin 400 mg TID. CIWA protocol in place, with the addition of Haldol 2 mg PRN Activity: BR. PT and OT ordered. (NWB BLE) wheelchair training. GI prophylaxis: Protonix po. Bowel regimen: Elke-colace and MOM. Lactulose. LBM: 0 DVT prophylaxis: Mechanical VTE with SCDs. Chemical management with Lovenox 30 BID SQ post OR. DC Planning: Case management consulted for assistance with final discharge disposition. Emotional support provided to patient and family at bedside and plan of care discussed. Discussed with RN at bedside. Patient is hemodynamically stable and being managed on the med/surg floor. BILAT Open tib/fib fxs Orthopedics consulted and assisting in management and care 11/07: Bilateral tib/fib I & D, bilateral external fixation w wound vac to LEFT * 11/10: ORIF RIGHT tib/fib fx. I&D LEFT tib fx. Muscle flap. IM Nail LEFT tibia w wound vac. Pain management. PT and OT ordered Wheelchair training NWB BLE IV antibiotics DVT prophylaxis Hypertension Diabetes Hospitalist consulted and assisting in management and care Resume home medications - lisinopril. Propanolol. Resume Pravachol ADA diet Sliding-scale insulin EtOH abuse CIWA protocol Haldol 2 mg PRN MVI Serial neuro checks Monitor for withdrawal The exam, history, and the medical decision-making described in the above note were completed with the assistance of the mid-level provider. I reviewed and agree with the findings presented. I attest that I had a [id number] encounter with the patient on the same day, and personally performed and documented my assessment and findings in the medical record. Problem Qualifiers (1) Fracture of tibia, left, open: Qualified Code: S82.255B - Type I or II open nondisplaced comminuted fracture of shaft of left tibia, initial encounter (2) Fracture of tibia, right, open: Qualified Code: S82.251C - Type III open displaced comminuted fracture of shaft of right tibia, initial encounter Josefina Yin Nov 10, 2016 10:54 Lacho Felipe MD Nov 11, 2016 17:21 (1) Fracture of tibia, left, open: Qualified Code: S82.255B - Type I or II open nondisplaced comminuted fracture of shaft of left tibia, initial encounter (2) Fracture of tibia, right, open: Qualified Code: S82.251C - Type III open displaced comminuted fracture of shaft of right tibia, initial encounter Josefina Yin Nov 10, 2016 10:54
--- NOTE | 2016-11-10 11:59 | PD.OP ---
cc: Salbador Gillis MD Operative Report Date of Surgery: Nov 10, 2016 Preoperative Diagnosis: Open right distal tibia and fibula fractures, open left tibia and fibula shaft fractures Postoperative Diagnosis: Procedure: Open reduction internal fixation of right distal tibia and fibula fractures Nonoperative treatment left tibial plateau fracture Irrigation and debridement of left tibia shaft fracture, removal external fixation, soleus muscle rotational flap, intramedullary nail fixation left tibia , application of wound VAC dressing Surgeon: Salbador Gillis Art Installer(s): KAMALA Ibarra PA-C The surgical procedure was assisted by my physician addictions counselor assistant. My P.A. presence was necessary throughout this case for the manipulation and positioning of the surgical extremity. My P.A. was assisting me throughout the duration of this procedure. The skill set of a physician addictions counselor assistant was medically necessary to complete this procedure. During the surgical case the surgical garment fitter was working at the back table and the physician addictions counselor assistant was directly assisting me. Operation and Findings: Implants: synthes [10]mm x [315]mm tibial nail Plan of activity: Nonweightbearing bilateral legs Patient was seen and examined preoperatively. An informed consent was obtained from patient after detailed discussion of risk and benefits. Risks of surgery include bleeding, infection, painful hardware, nonunion, malunion, leg length discrepancy, need for hardware removal, and medical complications associated with anesthesia including blood clots, stroke, heart attack, and were discussed. Operative site was marked. Patient was brought to the operating room placed on or table. Patient received IV antibiotics and was given IV sedation GETA. The right leg leg was prepped with alcohol Hibiclens and draped in usual sterile fashion. Timeout procedure was performed Procedure began with examination of the right tibia and fibula fractures under fluoroscopy. The previously placed pin was removed from the fibula. The skin flaps appeared to be healthy and viable. The traumatic lacerations were well closed. At this point attention was turned towards fixation of the tibia. The external fixator clamps were loosened. The tibia was gently manipulated. 2 percutaneous incisions were made on each side of the tibia fracture. A pointed fracture tenaculum was used to reduce and compress fracture. Fluoroscopy confirmed appropriate reduction of fracture. Two 3.5 mm Synthes cortical lag screws were now placed from medial to lateral. Decompression was obtained. The fracture tenaculum was removed. Next attention was turned towards the fibula. The fibula was manually reduced. A per case incision was made distal to the fibula. The 2.8 mm drill was placed through the tip of the fibula and advanced up the fibular canal. Fluoroscopy confirmed appropriate drill placement. A Synthes 4.0 cortical screw 100 mm in length was now placed in a retrograde fashion across the fracture site. Fluoroscopy confirmed well aligned fracture with well-placed hardware. The external fixator was now tightened for additional stability. Sterile dressings were now applied. Next attention was turned to the left leg. The left leg was now prepped with alcohol followed by Hibiclens. Procedure began with loosening of the external fixator. Clamps were now removed. The fracture was exposed. Curettes and rongeurs were now used to debride bone. Overall the skin and soft tissue appeared relatively healthy. There were areas of the anterior tibialis and deep compartment muscles which were debrided sharply. Soft tissue and bone were now thoroughly irrigated with sterile saline. At this point the remainder the extra fixator was removed. Clamps were loosened. Pins were now removed. Pin sites were cleaned with curettes and then thoroughly irrigated. Next, attention was turned towards reduction of fracture. A pointed fracture clamp was placed. Traction was applied. Fracture was reduced. There was comminution of the fracture. The fracture reduced and excellent alignment was achieved. Fracture clamp was used to aid in reduction. Next a 3 cm incision was made proximal to the patella. Quadriceps tendon was split in line with fibers. Cannulas were placed in the patellofemoral joint to protect the articular surface at all times. A guidepin was placed into the tibia and advanced in the tibial canal. Fluoroscopy was used to confirm appropriate guidepin placement. An opening reamer was used to open the tibial canal. A ball-tipped guidewire was advanced down the tibial canal. Guidepin was passed across the fracture site into the center of the distal tibia. Fluoroscopy confirmed guidepin placement. The nail length was now measured. The fracture was now held in a reduced position and the canal was reamed. The canal was reamed up to appropriate size. A Synthes nail was now selected. Next the nail was fully seated. Using perfect karuk technique 2 distal interlocking screws were placed. Using the insertion handle as a guide 2 proximal interlocking screws were placed. Fluoroscopy confirmed excellent of fracture with well- placed hardware. Incisions and the knee joint were thoroughly irrigated with sterile saline. Fascia was closed with #1 Vicryl, subcutaneous tissues closed with 3-0 Vicryl and skin was closed with giuseppe. Next attention was turned to soleus muscle flap. The fracture and medial aspect of the tibia had no soft tissue coverage. The traumatic laceration was extended distally to expose the soleus muscle. The soleus muscle was carefully mobilized from the deep posterior compartment. Care was taken to avoid injury to neurovascular structures. Proximally the soleus was mobilized from the medial head of the gastrocnemius muscle. The majority of the soleus muscle appeared to be healthy. The distal portion did have some traumatic injury from the fracture. This portion of the soleus did appear questionable for long-term survival. The soleus was now split midline. The medial aspect of the soleus was mobilized for coverage of the tibia. Once the soleus was mobilized it was wrapped around the tibial fracture. The tibia fracture was completely covered. The soleus muscle and fascia were now sutured in place using 2-0 PDS suture. The skin flaps were now closed with 3-0 PDS and 3-0 nylon. At this point a VAC dressing was placed over the entire wound. VAC dressing was sealed appropriately and set at 75 mmHg intermittent. Patient will need additional surgery later this week for evaluation of the viability of the muscle flap and possible split-thickness skin grafting. If the soleus muscle necrosis and does not survive, patient will likely need a free tissue transfer. Sterile dressings were applied. Patient was awakened and transferred to recovery in stable condition. Salbador Gillis MD Nov 10, 2016 11:59
[2016-11-10] MEDS ORDERED: PHENYLEPH/NS 1000 MCG/10 ML SYR IV ONE (12:00)
[2016-11-10] MEDS ORDERED: ONDANSETRON HCL 4 MG/2 ML VIAL IV PUSH ONE (12:00)
[2016-11-10] MEDS ORDERED: PROPOFOL 200 MG/20 ML AMP IV ONE (12:00)
[2016-11-10] MEDS ORDERED: LACTATED RINGER'S 1000 ML INJ 1,000 ML IV ONE (12:00)
[2016-11-10] MEDS ORDERED: DO NOT ADM ANY ANTICOAGULANT DRUGS PRN (12:29)
[2016-11-10] MEDS ORDERED: *MEPERIDINE 25 MG INJ VIAL PERIprocedural Use ONLY ONE (12:36)
[2016-11-10] MEDS ORDERED: fentaNYL CITRATE 250 MCG/5 ML AMP ONE (12:48)
[2016-11-10] MEDS ORDERED: MIDAZOLAM HCL 2 MG/2 ML VIAL ONE (12:48)
--- NOTE | 2016-11-10 12:53 | RADRPT ---
EXAM DATE/TIME: 11/10/2016 10:07 [facility] COMPARISON: ANKLE RIGHT LIMITED (AP&LAT), November 07, 2016, 17:31. INDICATIONS : ORIF right ankle. MEDICAL HISTORY : None. SURGICAL HISTORY : External fixator. ENCOUNTER: Subsequent ACUITY: 3 days PAIN SCORE: Non-responsive. LOCATION: Right distal tib/fib. FINDINGS: Again is seen bridging the fibula. Cortical lag screws are seen in the tibia. External fixer is amy dent. Alignment anatomic. CONCLUSION: Anatomic alignment following ORIF in an external fixator. Arvind Flores MD FACR on November 10, 2016 at 12:51 Board Certified Radiologist. This report was verified electronically.
--- NOTE | 2016-11-10 12:54 | RADRPT ---
EXAM DATE/TIME: 11/10/2016 10:07 [facility] COMPARISON: TIBIA/FIBULA LEFT (AP/LAT), November 07, 2016, 16:44. INDICATIONS : Left tibia IM nail. MEDICAL HISTORY : None. SURGICAL HISTORY : External fixator. ENCOUNTER: Subsequent ACUITY: 3 days PAIN SCORE: Non-responsive. LOCATION: Left tibia. FINDINGS: Intramedullary mariano is seen bridging the tibial fracture. Alignment anatomic. CONCLUSION: Anatomic Alignment following left tibial IM mariano. Arvind Flores MD FACR on November 10, 2016 at 12:52 Board Certified Radiologist. This report was verified electronically.
[2016-11-10] MEDS: CALCIUM/VITAMIN D 250 MG/125 U TAB PO SCH ×2 (13:00→16:31)
[2016-11-10] MEDS: LACTATED RINGER'S 1000 ML INJ 1,000 ML IV SCH (13:00)
[2016-11-10] MEDS ORDERED: *morphine SULFATE 8 MG/ML PERIprocedure ONLY ONE (14:36)
--- NOTE | 2016-11-10 15:19 | HHI.PR ---
Subjective Remarks Follow-up orthopedic injuries. Tolerated surgery today. He has no complaints seen with daughter. Discussed with RN Objective Vitals Vital Signs Date Time Temp Pulse Resp B/P Pulse Ox O2 Delivery O2 Flow Rate FiO2 11/10/16 07:48 99.4 84 19 102/60 93 11/10/16 04:59 99.0 86 18 104/60 95 11/10/16 00:48 99.0 88 18 103/58 95 11/09/16 20:16 99.0 73 19 95/69 93 11/09/16 19:25 88 11/09/16 16:00 100.4 95 18 121/69 92 I/O 11/09/16 11/09/16 11/09/16 11/10/16 11/10/16 11/10/16 07:00 15:00 23:00 07:00 15:00 23:00 Intake Total 0 ml 1396 ml 360 ml 170 ml 0 ml Output Total 600 ml 650 ml 650 ml 650 ml 650 ml Balance -600 ml 746 ml -290 ml -480 ml -650 ml Intake Oral 0 ml 600 ml 360 ml 0 ml 0 ml IV Total 796 ml 170 ml Output Urine Total 550 ml 650 ml 650 ml 650 ml 650 ml Drainage Total 50 ml 0 ml # Bowel Movements 0 0 0 0 Result Diagram: 11/10/16 0647 11/10/16646 Objective Remarks Well-developed, well-nourished in no distress Lungs are clear equal expansion Regular rate and rhythm no murmur Improved tremors Bilateral lower extremities with dry dressing. Fixators removed. Decrease bowel movements worse on the left Procedures 1.s/p I&D with exfix application bilateral tibias s/p wound vac application left tibia 2.With the assistance of RN, under sterile technique the avulsed skin of the right middle finger was clipped. No bleeding noted. Patient gave consent 3.Open reduction internal fixation of right distal tibia and fibula fractures Nonoperative treatment left tibial plateau fracture Irrigation and debridement of left tibia shaft fracture, removal external fixation, soleus muscle rotational flap, intramedullary nail fixation left tibia , application of wound VAC dressing A/P Problem List: (1) Fracture of tibia, left, open ICD Code: S82.202B Status: Acute (2) Fracture of tibia, right, open ICD Code: S82.201B Status: Acute Assessment and Plan This is a male who was brought in as a TRAUMA ALERT. He was working on a car when the car apparently slipped off the blocks. The car pinned him against a wall. He had severe bilateral leg pain and sustained bilateral open tibial and fibular fractures. He underwent I and D and external fixation. Wound VAC has been applied on the left lower extremity. He is on IV Ancef and gentamicin. Had another surgery today 11/10 as follows: Open reduction internal fixation of right distal tibia and fibula fractures. Nonoperative treatment left tibial plateau fracture. Irrigation and debridement of left tibia shaft fracture, removal external fixation, soleus muscle rotational flap, intramedullary nail fixation left tibia, application of wound VAC dressing. Stable. Continue postoperative care with physical therapy, wound care, incentive spirometry, pain management with Lortab and IV morphine and DVT prophylaxis with Lovenox currently on hold Coronary artery disease. EKG tracing with sinus rhythm. He is pain-free. Restart aspirin if okay with orthopedic surgery, MARGIE inhibitor, beta gil and statin Hypertension. Low normal BP readings likely secondary to narcotic. Stable blood counts. He is asymptomatic. Continue above-named mentioned medications with hold parameters. Monitor with as needed clonidine and IV Vasotec Diabetes mellitus. Stable. Monitor fingerstick sugars sliding scale coverage. Hold metformin for now Tobacco abuse. Counseled Alcohol abuse. CIWA protocol. Counseled Slightly elevated AST secondary to call use. We'll monitor Chronic tremors. Patient on Inderal Leukocytosis likely reactive. Improving. Monitor. UA ordered Wound care. Discharge Planning Discharge when cleared by orthopedic surgery Problem Qualifiers (1) Fracture of tibia, left, open: Qualified Code: S82.255B - Type I or II open nondisplaced comminuted fracture of shaft of left tibia, initial encounter (2) Fracture of tibia, right, open: Qualified Code: S82.251C - Type III open displaced comminuted fracture of shaft of right tibia, initial encounter Trent Leon MD Nov 10, 2016 15:19
[2016-11-10] MEDS: ACETAMINOPHEN/HYDROcodone 325 MG/10 MG TAB PO PRN ×2 (16:28→22:25)
[2016-11-10] MEDS: PRAVASTATIN SOD 80 MG TAB PO SCH (22:24)
[2016-11-10] MEDS: MAGNESIUM HYDROXIDE SUSP 30 ML CUP PO SCH (22:24)
[2016-11-11] VITALS (15 sets, daily range): BP systolic 84–114; BP diastolic 40–66; PULSE 75–99; RESP 16–20; TEMP 96.8–99.4; O2SAT 90–98
[2016-11-11] MEDS: ceFAZolin 2 GM PREMIX 50 ML IV SCH ×4 (00:53→23:12)
[2016-11-11] MEDS: ENOXAPARIN SODIUM 30 MG/0.3 ML SYRINGE SQ SCH ×3 (00:53→23:13)
[2016-11-11] MEDS: LACTATED RINGER'S 1000 ML INJ 1,000 ML IV SCH ×2 (00:53→09:00)
[2016-11-11] MEDS: MORPHINE SULFATE 8 MG/ML INJ IV PUSH PRN (00:54)
[2016-11-11] MEDS: GENTAMICIN 80 MG PREMIX 100 ML IV SCH ×3 (01:03→18:56)
--- NOTE | 2016-11-11 06:31 | PD.ORT.PN ---
Subjective Subjective Remarks POD 1 s/p IMN left tibia with soleus muscle flap POD 1 s/p ORIF with revision exfix right tibia doing well. pain controlled Objective Vitals Vital Signs Date Time Temp Pulse Resp B/P Pulse Ox O2 Delivery O2 Flow Rate FiO2 11/11/16 04:00 98.4 79 18 84/50 96 11/11/16 00:00 99.2 85 17 102/59 90 11/10/16 23:53 94 Nasal Cannula 2.00 11/10/16 19:02 Nasal Cannula 2.00 11/10/16 19:00 99.0 105 16 100/54 94 11/10/16 17:18 92 2.00 11/10/16 14:45 95 14 105/52 94 Nasal Cannula 2 11/10/16 14:30 97 14 112/55 96 Nasal Cannula 2 11/10/16 14:15 91 14 116/67 94 Nasal Cannula 2 11/10/16 14:00 90 14 116/57 93 Nasal Cannula 4 11/10/16 14:00 99.6 94 19 110/57 92 11/10/16 13:45 96 14 119/66 93 Nasal Cannula 4 11/10/16 13:30 95 14 118/58 93 Nasal Cannula 4 11/10/16 13:15 97 14 118/58 93 Nasal Cannula 4 11/10/16 13:00 93 14 115/60 100 Simple Mask 10 11/10/16 12:36 97.2 109 14 107/71 100 Simple Mask 10 11/10/16 07:48 99.4 84 19 102/60 93 I/O 11/10/16 11/10/16 11/10/16 11/11/16 11/11/16 11/11/16 06:59 14:59 22:59 06:59 14:59 22:59 Intake Total 170 ml 2250 ml 540 ml 480 ml Output Total 650 ml 1500 ml 0 ml 800 ml Balance -480 ml 750 ml 540 ml -320 ml Intake Oral 0 ml 0 ml 0 ml 480 ml IV Total 170 ml 250 ml 540 ml Other 2000 ml Output Urine Total 650 ml 1350 ml 800 ml Drainage Total 0 ml 0 ml Estimated Blood Loss 150 ml # Bowel Movements 0 0 Result Diagram: 11/10/16 0647 11/10/16 0647 Imaging Last 24 hours Impressions Pelvis X-Ray 11/07/16 1355 Signed Impressions: Service Date/Time: Monday, November 07, 2016 13:34 - CONCLUSION: No acute disease. Behzad Finch Jr., MD Chest X-Ray 11/07/16 1359 Signed Impressions: Service Date/Time: Monday, November 07, 2016 13:34 - CONCLUSION: No acute disease. Jac Gonzales MD Objective Remarks RLE: Dressings clean and dry. intact. NVI with full sensation and motor function. +exfix. pin sites. clean LLE: +vac. good seal. no sensation over medial foot. inability to dorsiflex or flex toes/foot. Assessment & Plan Assessment and Plan 1) Right Open Tibia Fracture s/p exfix revision with ORIF - POD 1 2) Left Open Tibia Fracture s/p Soleus muscle flap with IMN and removal of exfix - POD 1 -NWB BLE -pin care BID right leg -maintain vac left leg -vac settinmmHg, intermittent, 3:1 -npo after MN wed -plan for surgery thurs for potential skin grafting left let -if muscle flap and wound does not look graftable, will have to transfer to [facility] for free tissue flap Jef Steve Nov 11, 2016 06:31
[2016-11-11] MEDS: INSULIN ASPART SUPPLEMENTAL SCALE SQ SCH ×4 (06:44→23:16)
[2016-11-11] MEDS ORDERED: BISACODYL 10 MG SUPP RECTAL ONE (07:00)
[2016-11-11] MEDS ORDERED: BISACODYL EC 5 MG TABEC PO ONE (07:00)
[2016-11-11 07:14] LABS: HEMATOCRIT 21.7 % (39.0-51.0); REVIEW FLAG FINAL
[2016-11-11] MEDS: LISINOPRIL 10 MG TAB PO SCH (09:00)
[2016-11-11] MEDS: NEOMYCIN/POLYMYXIN/BACITRACIN OINT 15 GM TUBE TOPICAL SCH (09:00)
[2016-11-11] MEDS: PROPRANOLOL HCL 80 MG TAB PO SCH ×2 (09:00→23:14)
[2016-11-11] MEDS: LACTULOSE SYRUP 20 GM/30 ML CUP PO SCH (10:16)
[2016-11-11] MEDS: DOCUSATE SODIUM 50 MG/SENNA 8.6 MG TAB PO SCH ×2 (10:16→23:14)
[2016-11-11] MEDS: FERROUS SULFATE 325 MG (65 MG ELEMENTAL IRON) TAB PO SCH (10:17)
[2016-11-11] MEDS: FOLIC ACID 1 MG TAB PO SCH (10:17)
[2016-11-11] MEDS: CALCIUM/VITAMIN D 250 MG/125 U TAB PO SCH ×3 (10:17→17:12)
[2016-11-11] MEDS: GABAPENTIN 400 MG CAP PO SCH ×3 (10:17→17:12)
[2016-11-11] MEDS: ASPIRIN 81 MG CHEW TAB CHEW SCH (10:17)
[2016-11-11] MEDS: SODIUM CHLORIDE 0.9% FLUSH 10 ML FLUSH IV FLUSH SCH ×2 (10:18→23:14)
[2016-11-11] MEDS: ACETAMINOPHEN/HYDROcodone 325 MG/10 MG TAB PO PRN ×2 (10:19→23:13)
[2016-11-11] MEDS: MULTIVITAMINS/MINERALS THERAPEUTIC TAB PO SCH (10:23)
[2016-11-11] MEDS: PANTOPRAZOLE SOD 40 MG DELAYED RELEASE TAB PO SCH (10:23)
[2016-11-11] MEDS: THIAMINE HCL 100 MG TAB PO SCH (10:23)
--- NOTE | 2016-11-11 10:30 | HHI.PR ---
Subjective Subjective Notes PTD: 4 Patient sitting up in bed. No distress noted. Patient states, "I've been here a week and I have gone yet [bowel movement]. Objective Vitals/I&O Vital Signs Date Time Temp Pulse Resp B/P Pulse Ox O2 Delivery O2 Flow Rate FiO2 11/11/16 08:00 99.4 82 18 90/48 90 11/10/16 23:53 Nasal Cannula 2.00 11/08/16 07:55 21 Labs Laboratory Tests Test 11/11/16 05:37 Hemoglobin 7.4 Hematocrit 21.7 Radiology Last Impressions Pelvis X-Ray 11/07/16 1355 Signed Impressions: Service Date/Time: Monday, November 07, 2016 13:34 - CONCLUSION: No acute disease. Behzad Finch Jr., MD Chest X-Ray 11/07/16 1355 Signed Impressions: Service Date/Time: Monday, November 07, 2016 13:34 - CONCLUSION: No acute disease. Jac Gonzales MD Tibia/Fibula X-Ray 11/07/16 0000 Signed Impressions: Service Date/Time: Monday, November 07, 2016 16:44 - CONCLUSION: Postoperative changes. Mumtaz Cornelius MD Ankle X-Ray 11/07/16 0000 Signed Impressions: Service Date/Time: Monday, November 07, 2016 17:31 - CONCLUSION: Postoperative changes. Mumtaz Cornelius MD Narrative Exam GENERAL: This is a 61-year-old male sitting up in bed. No distress noted. SKIN: Warm and dry. HEAD: Atraumatic. Normocephalic. EYES: PERRLA ENT: No nasal bleeding or discharge. Mucous membranes pink and moist. NECK: Trachea midline. No JVD. CARDIOVASCULAR: Regular rate and rhythm. RESPIRATORY: No accessory muscle use. Lungs are clear to auscultation. Breath sounds equal bilaterally. No distress or dyspnea. GASTROINTESTINAL: BS + x 4 quads. Abdomen soft, non-tender, nondistended. MUSCULOSKELETAL: Extremities without cyanosis, or edema. Right lower extremity ex-fix in place. Left lower extremity with wound VAC in place and wrapped in Raul bandage. + peripheral pulses x 4 extremities. Warm with good capillary refill and sensation. MAEW. NEUROLOGICAL: Awake and alert. Normal speech and pattern. 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 PMHx: HLD, DM, HTN, CAD, CVA, GERD, tremor? INJURIES: BILAT Open tib/fib fxs Procedures: 11/07: Bilateral tib/fib I & D, bilateral external fixation w wound vac to LEFT 11/10: ORIF RIGHT tib/fib fx. I&D LEFT tib fx. Muscle flap. IM Nail LEFT tibia w wound vac. Consults: Orthopedics. Hospitalists. Diet: Regular ADA diet once awake after OR. Encourage good po intake with each meal. Pulmonary: Encourage good pulmonary toileting. IS at bedside and pt encouraged to use. Rationale for use explained to patient, and verbalized understanding. Intensified with acapella and EZ pap. Hypertension management: Lisinopril. Propanolol. (Pravachol). PAIN Management: [place] 10 mg q 3 h. Morphine 6 mg q 2h. Toradol 30 mg q 12 h. Neurontin 400 mg TID. CIWA protocol in place, with the addition of Haldol 2 mg PRN Activity: OOB with assistance PT and OT ordered. (NWB BLE) wheelchair training. GI prophylaxis: Protonix po. Bowel regimen: Elke-colace and MOM. Lactulose. LBM: 0. Intensified with bisacodyl PO/WI 1 dose today. DVT prophylaxis: Mechanical VTE with SCDs. Chemical management with Lovenox 30 BID SQ. DC Planning: Case management consulted for assistance with final discharge disposition. Patient is pending to go for additional surgery on , he may need to go to [facility] for a free flap. Await Dr. Mathias's recommendation. Emotional support provided to patient and family at bedside and plan of care discussed. Discussed with RN at bedside. Patient is hemodynamically stable and being managed on the med/surg floor. BILAT Open tib/fib fxs Orthopedics consulted and assisting in management and care 11/07: Bilateral tib/fib I & D, bilateral external fixation w wound vac to LEFT 11/10: ORIF RIGHT tib/fib fx. I&D LEFT tib fx. Muscle flap. IM Nail LEFT tibia w wound vac. 11/13: Patient will return to the OR with orthopedics. Orthopedics will attempt a muscle graft, however the patient may need to go to [facility] for a free flap Pain management. PT and OT ordered OOB with assist Wheelchair training NWB BLE IV antibiotics DVT prophylaxis Posttraumatic blood loss anemia H&H - 7..7 11/11: PRBC x 2 Follow-up labs in the morning Hypertension Diabetes Hospitalist consulted and assisting in management and care Resume home medications - lisinopril. Propanolol. Resume Pravachol ADA diet Sliding-scale insulin EtOH abuse CIWA protocol Haldol 2 mg PRN MVI Serial neuro checks Monitor for withdrawal The exam, history, and the medical decision-making described in the above note were completed with the assistance of the mid-level provider. I reviewed and agree with the findings presented. I attest that I had a [id number] encounter with the patient on the same day, and personally performed and documented my assessment and findings in the medical record. Problem Qualifiers (1) Fracture of tibia, left, open: Qualified Code: S82.255B - Type I or II open nondisplaced comminuted fracture of shaft of left tibia, initial encounter (2) Fracture of tibia, right, open: Qualified Code: S82.251C - Type III open displaced comminuted fracture of shaft of right tibia, initial encounter Josefina Yin Nov 11, 2016 10:30 Lacho Felipe MD Nov 11, 2016 17:16
--- NOTE | 2016-11-11 11:14 | HHI.PR ---
Trent Leon MD Nov 11, 2016 11:14
[2016-11-11] MEDS ORDERED: FUROSEMIDE 20 MG/2 ML VIAL IV ONE (11:15)
--- NOTE | 2016-11-11 14:08 | HHI.PR ---
Subjective Remarks Follow-up anemia. Complains of surgical pain. States he will be dizzy if he gets up with hemoglobin of 7.4. Agrees with blood transfusion. Discussed with RN Objective Vitals Vital Signs Date Time Temp Pulse Resp B/P Pulse Ox O2 Delivery O2 Flow Rate FiO2 11/11/16 14:05 75 11/11/16 12:46 79 11/11/16 12:40 98.4 79 16 90/40 92 11/11/16 12:40 92 Nasal Cannula 3.00 11/11/16 11:40 94 11/11/16 11:02 2.00 11/11/16 10:15 92 Nasal Cannula 2.00 11/11/16 08:00 99.4 82 18 90/48 90 11/11/16 06:41 84 11/11/16 04:00 98.4 79 18 84/50 96 11/11/16 00:00 99.2 85 17 102/59 90 11/10/16 23:53 94 Nasal Cannula 2.00 11/10/16 20:45 83 11/10/16 19:02 Nasal Cannula 2.00 11/10/16 19:00 99.0 105 16 100/54 94 11/10/16 17:18 92 2.00 11/10/16 14:45 95 14 105/52 94 Nasal Cannula 2 11/10/16 14:30 97 14 112/55 96 Nasal Cannula 2 11/10/16 14:15 91 14 116/67 94 Nasal Cannula 2 I/O 11/10/16 11/10/16 11/10/16 11/11/16 11/11/16 11/11/16 06:59 14:59 22:59 06:59 14:59 22:59 Intake Total 170 ml 2250 ml 540 ml 480 ml 1472 ml Output Total 650 ml 1500 ml 0 ml 900 ml 100 ml Balance -480 ml 750 ml 540 ml -420 ml 1372 ml Intake Oral 0 ml 0 ml 0 ml 480 ml IV Total 170 ml 250 ml 540 ml 1472 ml Other 2000 ml Output Urine Total 650 ml 1350 ml 800 ml Drainage Total 0 ml 0 ml 100 ml 100 ml Estimated Blood Loss 150 ml # Bowel Movements 0 0 Result Diagram: 11/11/16 0537 11/10/16 0647 Imaging Last Impressions Tibia/Fibula X-Ray 11/10/16 0000 Signed Impressions: Service Date/Time: Thursday, November 10, 2016 10:07 - CONCLUSION: Anatomic Alignment following left tibial IM mariano. Arvind Flores MD FACR Ankle X-Ray 11/10/16 0000 Signed Impressions: Service Date/Time: Thursday, November 10, 2016 10:07 - CONCLUSION: Anatomic alignment following ORIF in an external fixator. Arvind Flores MD FACR Pelvis X-Ray 11/07/16 1355 Signed Impressions: Service Date/Time: Monday, November 07, 2016 13:34 - CONCLUSION: No acute disease. Behzad Finch Jr., MD Chest X-Ray 11/07/16 1355 Signed Impressions: Service Date/Time: Monday, November 07, 2016 13:34 - CONCLUSION: No acute disease. Jac Gonzales MD Objective Remarks Well-developed, well-nourished in no distress Skin is warm not diaphoretic Pupils equal or that the jaundice Lungs are clear equal expansion Regular rate and rhythm no murmur Improved tremors Bilateral lower extremities with dry dressing. Right leg with fixator. Decrease digit movements much less on the left Alert and oriented speech is clear Procedures 1.s/p I&D with exfix application bilateral tibias s/p wound vac application left tibia 2.With the assistance of RN, under sterile technique the avulsed skin of the right middle finger was clipped. No bleeding noted. Patient gave consent 3.Open reduction internal fixation of right distal tibia and fibula fractures Nonoperative treatment left tibial plateau fracture Irrigation and debridement of left tibia shaft fracture, removal external fixation, soleus muscle rotational flap, intramedullary nail fixation left tibia , application of wound VAC dressing A/P Problem List: (1) Fracture of tibia, left, open ICD Code: S82.202B Status: Acute (2) Fracture of tibia, right, open ICD Code: S82.201B Status: Acute Assessment and Plan This is a male who was brought in as a [employer]. He was working on a car when the car apparently slipped off the blocks. The car pinned him against a wall. He had severe bilateral leg pain and sustained bilateral open tibial and fibular fractures. He underwent I and D and external fixation. Wound VAC has been applied on the left lower extremity. He is on IV Ancef and gentamicin. Had another surgery 11/10 as follows: Open reduction internal fixation of right distal tibia and fibula fractures. Nonoperative treatment left tibial plateau fracture. Irrigation and debridement of left tibia shaft fracture, removal external fixation, soleus muscle rotational flap, intramedullary nail fixation left tibia, application of wound VAC dressing. Stable. Continue postoperative care with physical therapy, wound care, incentive spirometry, pain management with Lortab and IV morphine and DVT prophylaxis with Lovenox. 11/13 potential skin grafting left leg. If muscle flap and wound does not look graftable, will have to transfer to [facility] for free tissue flap per orthopedic surgery Postoperative anemia secondary to acute blood loss with hemoglobin 7.4. Agrees with blood transfusion. Repeat H&H in the morning Coronary artery disease. EKG tracing with sinus rhythm. He is pain-free. Restart aspirin if okay with orthopedic surgery, MARGIE inhibitor, beta gil and statin Hypertension. Low normal BP readings likely secondary to narcotic. Stable blood counts. He is asymptomatic. Continue above-named mentioned medications with hold parameters. Monitor with as needed clonidine and IV Vasotec Diabetes mellitus. Stable. Monitor fingerstick sugars sliding scale coverage. Hold metformin for now Tobacco abuse. Counseled Alcohol abuse. CIWA protocol. Counseled Slightly elevated AST secondary to call use. We'll monitor Chronic tremors. Patient on Inderal Leukocytosis likely reactive. Improving. Monitor. UA ordered Wound care. Discharge Planning Discharge when cleared by orthopedic surgery Problem Qualifiers (1) Fracture of tibia, left, open: Qualified Code: S82.255B - Type I or II open nondisplaced comminuted fracture of shaft of left tibia, initial encounter (2) Fracture of tibia, right, open: Qualified Code: S82.251C - Type III open displaced comminuted fracture of shaft of right tibia, initial encounter Trent Leon MD Nov 11, 2016 14:08
[2016-11-11] MEDS: SODIUM CHLOR 0.9% 250 ML INJ 250 ML IV ONE (14:10)
[2016-11-11] MEDS: PRAVASTATIN SOD 80 MG TAB PO SCH (23:12)
[2016-11-11] MEDS: MAGNESIUM HYDROXIDE SUSP 30 ML CUP PO SCH (23:14)
[2016-11-12] VITALS (13 sets, daily range): BP systolic 85–116; BP diastolic 46–60; PULSE 74–86; RESP 18–19; TEMP 96.2–100.5; O2SAT 87–97
[2016-11-12] MEDS: GENTAMICIN 80 MG PREMIX 100 ML IV SCH ×3 (02:35→17:26)
[2016-11-12] MEDS: ACETAMINOPHEN/HYDROcodone 325 MG/10 MG TAB PO PRN ×5 (05:47→21:16)
[2016-11-12] MEDS: INSULIN ASPART SUPPLEMENTAL SCALE SQ SCH ×4 (06:50→21:00)
--- NOTE | 2016-11-12 06:56 | PD.ORT.PN ---
Subjective Subjective Remarks POD 2 s/p IMN left tibia with soleus muscle flap POD 2 s/p ORIF with revision exfix right tibia doing well. pain controlled Objective Vitals Vital Signs Date Time Temp Pulse Resp B/P Pulse Ox O2 Delivery O2 Flow Rate FiO2 11/12/16 05:25 99.5 80 18 111/59 93 11/12/16 05:05 99.4 81 19 112/53 93 11/12/16 04:40 99.1 78 18 90/53 94 11/12/16 00:50 99.7 86 18 85/49 94 11/11/16 20:40 99.1 93 18 98/53 94 11/11/16 20:05 88 11/11/16 19:30 Nasal Cannula 3.00 11/11/16 19:14 89 11/11/16 17:37 83 11/11/16 16:00 97.8 78 20 92/50 92 11/11/16 15:39 75 11/11/16 14:05 75 11/11/16 12:46 79 11/11/16 12:40 98.4 79 16 90/40 92 11/11/16 12:40 92 Nasal Cannula 3.00 11/11/16 11:40 94 11/11/16 11:02 2.00 11/11/16 10:15 92 Nasal Cannula 2.00 11/11/16 08:00 99.4 82 18 90/48 90 I/O 11/11/16 11/11/16 11/11/16 11/12/16 11/12/16 11/12/16 06:59 14:59 22:59 06:59 14:59 22:59 Intake Total 480 ml 2072 ml 240 ml 588 ml Output Total 900 ml 1100 ml 900 ml 100 ml Balance -420 ml 972 ml -660 ml 488 ml Intake Oral 480 ml 600 ml 240 ml IV Total 1472 ml 588 ml Output Urine Total 800 ml 1000 ml 900 ml Drainage Total 100 ml 100 ml 100 ml # Bowel Movements 0 1 1 Result Diagram: 11/11/16 0537 11/10/16 0647 Imaging Last 24 hours Impressions Pelvis X-Ray 11/07/16 8405 Signed Impressions: Service Date/Time: Monday, November 07, 2016 13:34 - CONCLUSION: No acute disease. Behzad Finch Jr., MD Chest X-Ray 11/07/16 8223 Signed Impressions: Service Date/Time: Monday, November 07, 2016 13:34 - CONCLUSION: No acute disease. Jac Gonzales MD Objective Remarks RLE: Dressings clean and dry. intact. NVI with full sensation and motor function. +exfix. pin sites. clean LLE: +vac. good seal. no sensation over medial foot. inability to dorsiflex or flex toes/foot. Assessment & Plan Assessment and Plan 1) Right Open Tibia Fracture s/p exfix revision with ORIF - POD 2 2) Left Open Tibia Fracture s/p Soleus muscle flap with IMN and removal of exfix - POD 2 -NWB BLE -pin care BID right leg -maintain vac left leg -vac settinmmHg, intermittent, 3:1 -npo after MN wed -plan for surgery thurs for potential skin grafting left leg -if muscle flap and wound does not look graftable, will have to transfer to [facility] for free tissue flap Jef Steve Nov 12, 2016 06:55
[2016-11-12] MEDS: LISINOPRIL 10 MG TAB PO SCH (09:00)
[2016-11-12] MEDS: LACTULOSE SYRUP 20 GM/30 ML CUP PO SCH (09:00)
[2016-11-12] MEDS: DOCUSATE SODIUM 50 MG/SENNA 8.6 MG TAB PO SCH ×2 (09:00→21:12)
[2016-11-12] MEDS: PROPRANOLOL HCL 80 MG TAB PO SCH ×2 (09:00→21:12)
[2016-11-12] MEDS: SODIUM CHLORIDE 0.9% FLUSH 10 ML FLUSH IV FLUSH SCH ×2 (09:00→21:00)
[2016-11-12] MEDS: GABAPENTIN 400 MG CAP PO SCH ×3 (09:12→17:25)
[2016-11-12] MEDS: CALCIUM/VITAMIN D 250 MG/125 U TAB PO SCH ×3 (09:13→17:26)
[2016-11-12] MEDS: MULTIVITAMINS/MINERALS THERAPEUTIC TAB PO SCH (09:13)
[2016-11-12] MEDS: THIAMINE HCL 100 MG TAB PO SCH (09:13)
[2016-11-12] MEDS: PANTOPRAZOLE SOD 40 MG DELAYED RELEASE TAB PO SCH (09:13)
[2016-11-12] MEDS: ASPIRIN 81 MG CHEW TAB CHEW SCH (09:13)
[2016-11-12] MEDS: FOLIC ACID 1 MG TAB PO SCH (09:14)
[2016-11-12] MEDS: FERROUS SULFATE 325 MG (65 MG ELEMENTAL IRON) TAB PO SCH (09:14)
[2016-11-12] MEDS: NEOMYCIN/POLYMYXIN/BACITRACIN OINT 15 GM TUBE TOPICAL SCH (09:15)
[2016-11-12] MEDS: ceFAZolin 2 GM PREMIX 50 ML IV SCH ×2 (09:17→17:25)
--- NOTE | 2016-11-12 10:43 | HHI.PR ---
Subjective Subjective Notes PTD: 5 Patient sitting up in bed. Patient disgruntled. " Aren't they gonna do nothing?" Objective Vitals/I&O Vital Signs Date Time Temp Pulse Resp B/P Pulse Ox O2 Delivery O2 Flow Rate FiO2 11/12/16 08:02 96.2 81 18 96/48 93 11/11/16 19:30 Nasal Cannula 3.00 11/08/16 07:55 21 Labs Laboratory Tests Test 11/12/16 00:31 Blood Type O POSITIVE Antibody Screen NEGATIVE Crossmatch Leukocyte-Reduced Red Blood Cells Blood Bank Comment Radiology Last Impressions Tibia/Fibula X-Ray 11/10/16 0000 Signed Impressions: Service Date/Time: Thursday, November 10, 2016 10:07 - CONCLUSION: Anatomic Alignment following left tibial IM mariano. Arvind Flores MD FACR Ankle X-Ray 11/10/16 0000 Signed Impressions: Service Date/Time: Thursday, November 10, 2016 10:07 - CONCLUSION: Anatomic alignment following ORIF in an external fixator. Arvind Flores MD FACR Pelvis X-Ray 11/07/16 1355 Signed Impressions: Service Date/Time: Monday, November 07, 2016 13:34 - CONCLUSION: No acute disease. Behzad Finch Jr., MD Chest X-Ray 11/07/16 1355 Signed Impressions: Service Date/Time: Monday, November 07, 2016 13:34 - CONCLUSION: No acute disease. Jac Gonzales MD Narrative Exam GENERAL: This is a 61-year-old male sitting up in bed. No distress noted. SKIN: Warm and dry. HEAD: Atraumatic. Normocephalic. EYES: PERRLA ENT: No nasal bleeding or discharge. Mucous membranes pink and moist. NECK: Trachea midline. No JVD. CARDIOVASCULAR: Regular rate and rhythm. RESPIRATORY: No accessory muscle use. Lungs are clear to auscultation. Breath sounds equal bilaterally. No distress or dyspnea. GASTROINTESTINAL: BS + x 4 quads. Abdomen soft, non-tender, nondistended. MUSCULOSKELETAL: Extremities without cyanosis, or edema. Right lower extremity ex-fix in place. Left lower extremity with wound VAC in place and wrapped in Raul bandage. + peripheral pulses x 4 extremities. Warm with good capillary refill and sensation. MAEW. NEUROLOGICAL: Awake and alert. Normal speech and pattern. 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 PMHx: HLD, DM, HTN, CAD, CVA, GERD, tremor? INJURIES: BILAT Open tib/fib fxs Procedures: 11/07: Bilateral tib/fib I & D, bilateral external fixation w wound vac to LEFT 11/10: ORIF RIGHT tib/fib fx. I&D LEFT tib fx. Muscle flap. IM Nail LEFT tibia w wound vac. 11/13: Plan for return to OR for skin/muscle graft. Consults: Orthopedics. Hospitalists. Diet: Regular ADA diet once awake after OR. Encourage good po intake with each meal. Pulmonary: Encourage good pulmonary toileting. IS at bedside and pt encouraged to use. Rationale for use explained to patient, and verbalized understanding. Intensified with acapella and EZ pap. Added duo nebs PRN wheezing . Hypertension management: Lisinopril. Propanolol. (Pravachol). PAIN Management: [place] 10 mg q 3 h. Morphine 6 mg q 2h. Toradol 30 mg q 12 h. Neurontin 400 mg TID. CIWA protocol in place, with the addition of Haldol 2 mg PRN Activity: Bedrest per Dr. Mathias. PT and OT ordered. (NWB BLE) wheelchair training. GI prophylaxis: Protonix po. Bowel regimen: Elke-colace and MOM. Lactulose. LBM: 11/12. DVT prophylaxis: Mechanical VTE with SCDs. Chemical management with Lovenox 30 BID SQ. DC Planning: Case management consulted for assistance with final discharge disposition. Patient is pending to go for additional surgery on tomorrow, and he may need to go to [facility] for a free flap. Await Dr. Mathias's recommendation. Emotional support provided to patient and family at bedside and plan of care discussed. Discussed with RN at bedside. Patient is hemodynamically stable and being managed on the med/surg floor. BILAT Open tib/fib fxs Orthopedics consulted and assisting in management and care 11/07: Bilateral tib/fib I & D, bilateral external fixation w wound vac to LEFT 11/10: ORIF RIGHT tib/fib fx. I&D LEFT tib fx. Muscle flap. IM Nail LEFT tibia w wound vac. *11/13: Patient will return to the OR with orthopedics. Orthopedics will attempt a muscle graft, however the patient may need to go to [facility] for a free flap Pain management. PT and OT ordered Bedrest only per Dr. Mathias NWMarlyn BLE IV antibiotics DVT prophylaxis Posttraumatic blood loss anemia H&H - ..7 11/12: PRBC x 2 Follow-up labs post transfusion Hypertension Diabetes Hospitalist consulted and assisting in management and care Resume home medications - lisinopril. Propanolol. Resume Pravachol ADA diet Sliding-scale insulin EtOH abuse CIWA protocol Haldol 2 mg PRN MVI Serial neuro checks Monitor for withdrawal The exam, history, and the medical decision-making described in the above note were completed with the assistance of the mid-level provider. I reviewed and agree with the findings presented. I attest that I had a [id number] encounter with the patient on the same day, and personally performed and documented my assessment and findings in the medical record. Problem Qualifiers (1) Fracture of tibia, left, open: (2) Fracture of tibia, right, open: Josefina Yin Nov 12, 2016 10:42 Lacho Felipe MD Jan 04, 2017 17:36
[2016-11-12] MEDS ORDERED: FUROSEMIDE 20 MG/2 ML VIAL IV ONE (11:00)
[2016-11-12] MEDS: SODIUM CHLOR 0.9% 250 ML INJ 250 ML IV ONE (11:19)
[2016-11-12] MEDS ORDERED: RESP: ALBUTEROL 2.5 MG/IPRATROPIUM 0.5 MG NEB (PRN) NEB (13:15)
--- NOTE | 2016-11-12 16:23 | HHI.PR ---
Subjective Remarks Follow-up anemia. Tolerated blood transfusion. Denies any complaints for more surgery tomorrow. Seen with . Discussed with RN Objective Vitals Vital Signs Date Time Temp Pulse Resp B/P Pulse Ox O2 Delivery O2 Flow Rate FiO2 11/12/16 14:38 99.9 74 18 97/46 97 11/12/16 13:54 87 21 11/12/16 12:05 99.0 81 19 103/53 93 11/12/16 11:54 100.0 78 18 103/60 96 11/12/16 10:55 99.0 82 19 101/57 95 11/12/16 09:10 99.0 82 19 101/57 95 Manual Cuff/Auscultation 11/12/16 08:02 96.2 81 18 96/48 93 11/12/16 05:25 99.5 80 18 111/59 93 11/12/16 05:05 99.4 81 19 112/53 93 11/12/16 04:40 99.1 78 18 90/53 94 11/12/16 00:50 99.7 86 18 85/49 94 11/11/16 20:40 99.1 93 18 98/53 94 11/11/16 20:05 88 11/11/16 19:30 Nasal Cannula 3.00 11/11/16 19:14 89 11/11/16 17:37 83 I/O 11/11/16 11/11/16 11/11/16 11/12/16 11/12/16 11/12/16 07:00 15:00 23:00 07:00 15:00 23:00 Intake Total 480 ml 2072 ml 240 ml 828 ml Output Total 900 ml 1100 ml 900 ml 1600 ml 50 ml Balance -420 ml 972 ml -660 ml -772 ml -50 ml Intake Oral 480 ml 600 ml 240 ml 240 ml IV Total 1472 ml 588 ml Output Urine Total 800 ml 1000 ml 900 ml 1400 ml Drainage Total 100 ml 100 ml 200 ml 50 ml # Bowel Movements 0 1 1 1 Result Diagram: 11/11/16 0537 11/10/16 0647 Objective Remarks Well-developed, well-nourished in no distress Skin is warm not diaphoretic Pupils equal or that the jaundice Lungs are clear equal expansion Regular rate and rhythm no murmur Improved tremors Bilateral lower extremities with dry dressing. Right leg with fixator. Improving toe movements less on the left Alert and oriented speech is clear Procedures 1.s/p I&D with exfix application bilateral tibias s/p wound vac application left tibia 2.With the assistance of RN, under sterile technique the avulsed skin of the right middle finger was clipped. No bleeding noted. Patient gave consent 3.Open reduction internal fixation of right distal tibia and fibula fractures Nonoperative treatment left tibial plateau fracture Irrigation and debridement of left tibia shaft fracture, removal external fixation, soleus muscle rotational flap, intramedullary nail fixation left tibia , application of wound VAC dressing A/P Problem List: (1) Fracture of tibia, left, open ICD Code: S82.202B Status: Acute (2) Fracture of tibia, right, open ICD Code: S82.201B Status: Acute Assessment and Plan This is a male who was brought in as a TRAUMA ALERT. He was working on a car when the car apparently slipped off the blocks. The car pinned him against a wall. He had severe bilateral leg pain and sustained bilateral open tibial and fibular fractures. He underwent I and D and external fixation. Wound VAC has been applied on the left lower extremity. He is on IV Ancef and gentamicin. Had another surgery 11/10 as follows: Open reduction internal fixation of right distal tibia and fibula fractures. Nonoperative treatment left tibial plateau fracture. Irrigation and debridement of left tibia shaft fracture, removal external fixation, soleus muscle rotational flap, intramedullary nail fixation left tibia, application of wound VAC dressing. Stable. Continue postoperative care with physical therapy, wound care, incentive spirometry, pain management with Lortab and IV morphine and DVT prophylaxis with Lovenox. Tomorrow 11/13 for potential skin grafting left leg. If muscle flap and wound does not look graftable, will have to transfer to [facility] for free tissue flap per orthopedic surgery Postoperative anemia secondary to acute blood loss with hemoglobin 7.4. Status post blood transfusion. Repeat H&H pending Coronary artery disease. EKG tracing with sinus rhythm. He is pain-free. Restart aspirin if okay with orthopedic surgery, MARGIE inhibitor, beta gil and statin Hypertension. Low normal BP readings likely secondary to narcotic and anemia. He is asymptomatic. Improving. Continue above-named mentioned medications with hold parameters. Diabetes mellitus. Stable. Monitor fingerstick sugars sliding scale coverage. Hold metformin for now Tobacco abuse. Counseled Alcohol abuse. CIWA protocol. Counseled Slightly elevated AST secondary to call use. We'll monitor Chronic tremors. Patient on Inderal Leukocytosis likely reactive. Improving. Monitor. Discontinue Reinoso catheter after surgery Wound care. Discharge Planning Discharge when cleared by orthopedic surgery Problem Qualifiers (1) Fracture of tibia, left, open: Qualified Code: S82.255B - Type I or II open nondisplaced comminuted fracture of shaft of left tibia, initial encounter (2) Fracture of tibia, right, open: Qualified Code: S82.251C - Type III open displaced comminuted fracture of shaft of right tibia, initial encounter Trent Leon MD Nov 12, 2016 16:23
[2016-11-12 20:25] LABS: HEMATOCRIT 27.8 % (39.0-51.0); MEAN CELL VOLUME 95.2 FL (80.0-100.0); MEAN CORPUSCULAR HEMOGLOBIN 32.4 PG (27.0-34.0); MEAN CORPUSCULAR HGB CONC 34.1 % (32.0-36.0); PLATELET COUNT 183 TH/MM3 (150-450); RED BLOOD COUNT 2.92 MIL/MM3 (4.50-5.90); RED CELL DISTRIBUTION WIDTH 14.1 % (11.6-17.2); REVIEW FLAG FINAL; WHITE BLOOD COUNT 10.9 TH/MM3 (4.0-11.0)
[2016-11-12 20:41] LABS: BICARBONATE 26.9 MEQ/L (21.0-32.0); POTASSIUM 3.3 MEQ/L (3.5-5.1)
[2016-11-12] MEDS: PRAVASTATIN SOD 80 MG TAB PO SCH (21:12)
[2016-11-12] MEDS: MAGNESIUM HYDROXIDE SUSP 30 ML CUP PO SCH (21:12)
[2016-11-13] VITALS (9 sets, daily range): BP systolic 93–106; BP diastolic 51–74; PULSE 61–87; RESP 17–20; TEMP 96.4–100.1; O2SAT 94–99
[2016-11-13] MEDS: ceFAZolin 2 GM PREMIX 50 ML IV SCH ×4 (00:05→20:40)
[2016-11-13] MEDS: ACETAMINOPHEN/HYDROcodone 325 MG/10 MG TAB PO PRN ×6 (00:07→23:46)
[2016-11-13] MEDS: GENTAMICIN 80 MG PREMIX 100 ML IV SCH ×3 (02:49→17:20)
[2016-11-13] MEDS ORDERED: CHLORHEXIDINE GLUCONATE 2 % 1 PACK (2 CLOTHS) TOPICAL PRN (05:00)
[2016-11-13] MEDS ORDERED: POVIDONE IODINE 5% (ANTISEPSIS KIT) 4 APPLICATIONS EACH NARE PRN (05:00)
[2016-11-13] MEDS ORDERED: LACTATED RINGER'S 1000 ML IV PRN (05:00)
[2016-11-13] MEDS ORDERED: SODIUM CHLORID 0.9% 500 ML IV PRN (05:00)
[2016-11-13] MEDS ORDERED: METOPROLOL TARTRATE 25 MG TAB PO PRN (05:00)
[2016-11-13] MEDS: INSULIN ASPART SUPPLEMENTAL SCALE SQ SCH ×4 (06:28→20:42)
--- NOTE | 2016-11-13 06:34 | PD.ORT.PN ---
Subjective Subjective Remarks POD 3 s/p IMN left tibia with soleus muscle flap POD 3 s/p ORIF with revision exfix right tibia doing well. pain controlled Objective Vitals Vital Signs Date Time Temp Pulse Resp B/P Pulse Ox O2 Delivery O2 Flow Rate FiO2 11/13/16 04:40 99.9 67 18 93/51 95 11/13/16 01:07 18 11/13/16 00:15 100.1 72 18 106/57 96 11/12/16 20:40 100.5 83 18 116/59 96 11/12/16 19:30 Nasal Cannula 3.00 11/12/16 15:45 99.1 76 19 106/59 96 11/12/16 14:38 99.9 74 18 97/46 97 11/12/16 13:54 87 21 11/12/16 12:05 99.0 81 19 103/53 93 11/12/16 11:54 100.0 78 18 103/60 96 11/12/16 10:55 99.0 82 19 101/57 95 11/12/16 09:10 99.0 82 19 101/57 95 Manual Cuff/Auscultation 11/12/16 08:02 96.2 81 18 96/48 93 I/O 11/12/16 11/12/16 11/12/16 11/13/16 11/13/16 11/13/16 07:00 15:00 23:00 07:00 15:00 23:00 Intake Total 828 ml 960 ml 240 ml Output Total 1600 ml 2700 ml 1150 ml Balance -772 ml -1740 ml -910 ml Intake Oral 240 ml 960 ml 240 ml IV Total 588 ml Output Urine Total 1400 ml 2650 ml 1150 ml Drainage Total 200 ml 50 ml # Voids 0 # Bowel Movements 1 0 0 Result Diagram: 11/12/16199911/12/161999 Imaging Last 24 hours Impressions Pelvis X-Ray 11/07/16 6490 Signed Impressions: Service Date/Time: Monday, November 07, 2016 13:34 - CONCLUSION: No acute disease. Behzad Finch Jr., MD Chest X-Ray 11/07/16 8659 Signed Impressions: Service Date/Time: Monday, November 07, 2016 13:34 - CONCLUSION: No acute disease. Jac F. Tocci, MD Objective Remarks RLE: Dressings clean and dry. intact. NVI with full sensation and motor function. +exfix. pin sites. clean LLE: +vac. good seal. no sensation over medial foot. inability to dorsiflex or flex toes/foot. Assessment & Plan Assessment and Plan 1) Right Open Tibia Fracture s/p exfix revision with ORIF - POD 3 2) Left Open Tibia Fracture s/p Soleus muscle flap with IMN and removal of exfix - POD 3 -NWB BLE -pin care BID right leg -maintain vac left leg -vac settinmmHg, intermittent, 3:1 -surgery today for I&D and potential skin grafting left leg Jef Steve Nov 13, 2016 06:34
[2016-11-13] MEDS ORDERED: GENTAMICIN SULFATE 80 MG/2 ML VIAL ONE (07:15)
[2016-11-13] MEDS ORDERED: LIDOCAINE 2% JELLY 30 ML TUBE ONE (07:15)
[2016-11-13] MEDS ORDERED: MINERAL OIL 10 ML VIAL ONE (07:15)
[2016-11-13] MEDS ORDERED: RESP: ALBUTEROL 2.5 MG/3 ML NEB (PRN) ONE (07:34)
[2016-11-13] MEDS ORDERED: DEXAMETHASONE SOD PHOS 4 MG/ML VIAL ONE (07:36)
[2016-11-13] MEDS ORDERED: FAMOTIDINE 20 MG/2 ML VIAL ONE (07:36)
[2016-11-13 07:41] LABS: BASOPHIL % 0.3 % (0.0-2.0); EOSINOPHIL # 0.2 TH/MM3 (0-0.4); EOSINOPHIL % 1.6 % (0.0-4.0); HEMATOCRIT 27.7 % (39.0-51.0); HEMO FLAGS DIFF FINAL; LYMPH % 5.5 % (9.0-44.0); LYMPHOCYTE # 0.7 TH/MM3 (1.0-4.8); MEAN CELL VOLUME 95.7 FL (80.0-100.0); MEAN CORPUSCULAR HGB CONC 33.5 % (32.0-36.0); MONO % 12.9 % (0.0-8.0); NEUT % 79.7 % (16.0-70.0); PLATELET COUNT 206 TH/MM3 (150-450); RED CELL DISTRIBUTION WIDTH 14.2 % (11.6-17.2); WHITE BLOOD COUNT 12.5 TH/MM3 (4.0-11.0)
[2016-11-13] MEDS ORDERED: RESP: ALBUTEROL 2.5 MG/IPRATROPIUM 0.5 MG NEB (SCH) ONE (07:47)
[2016-11-13] MEDS: LACTATED RINGER'S 1000 ML INJ 1,000 ML IV SCH ×3 (08:42→20:44)
[2016-11-13 08:45] LABS: ALT (GPT) 16 U/L (12-78); ANION GAP 9 MEQ/L (5-15); AST (GOT) 74 U/L (15-37); BICARBONATE 24.9 MEQ/L (21.0-32.0); BLOOD UREA NITROGEN 11 MG/DL (7-18); CHLORIDE 97 MEQ/L (98-107); GLOMERULAR FILTRATION RATE 123 ML/MIN (>89); POTASSIUM 3.7 MEQ/L (3.5-5.1); SODIUM (NA) 131 MEQ/L (136-145)
[2016-11-13 08:48] LABS: ALKALINE PHOSPHATASE 70 U/L (45-117); TOTAL BILIRUBIN ADULT 0.5 MG/DL (0.2-1.0)
--- NOTE | 2016-11-13 08:48 | PD.OP ---
cc: Salbador Gillis MD Operative Report Date of Surgery: Nov 13, 2016 Preoperative Diagnosis: Open left tibia fracture Postoperative Diagnosis: Procedure: Irrigation and debridement of left tibia, application wound VAC dressing Anesthesia: Gen. Surgeon: Salbador Gillis Diagnostic Radiologic Technologist(s): KAMALA Ibarra PA-C The surgical procedure was assisted by my physician web production assistant. My P.A. presence was necessary throughout this case for the manipulation and positioning of the surgical extremity. My P.A. was assisting me throughout the duration of this procedure. The skill set of a physician web production assistant was medically necessary to complete this procedure. During the surgical case the surgical brace maker was working at the back table and the physician web production assistant was directly assisting me. Operation and Findings: [place] sustained open bilateral tibia fractures from being hit by a car that he was working on. Informed consent was obtained preoperatively and operative site was marked. He was brought to operating room. He was given IV sedation and general anesthesia. He received IV antibiotics. Timeout procedure was performed. Left leg was prepped with alcohol followed by Hibiclens and draped in usual sterile fashion. Procedure began with debridement of the wound. Areas of skin subcutaneous tissue fascia and muscle were sharply debrided. At this time of last surgery he had a soleus muscle flap performed. The distal portion of the muscle flap appears to be necrosing. The distal portion of the soleus muscle was excised. The bone was cleaned with curettes. The proximal portion of the muscle still appeared to be mostly viable. Wound was now thoroughly irrigated with sterile saline. A VAC dressing was cut to fit the wound. VAC dressing was sealed appropriately. Patient was awakened and transferred to recovery room in stable condition. Patient will need additional surgery for his left leg. Patient may benefit from a free tissue transfer. I will discuss with plastic surgery at [facility] for possible free tissue transfer. Without free tissue transfer, patient will likely need multiple VAC dressings until there is enough graduation tissues to skin graft. Salbador Gillis MD Nov 13, 2016 08:48
[2016-11-13] MEDS: PROPRANOLOL HCL 80 MG TAB PO SCH ×2 (09:00→20:31)
[2016-11-13] MEDS: MULTIVITAMINS/MINERALS THERAPEUTIC TAB PO SCH (09:00)
[2016-11-13] MEDS: GABAPENTIN 400 MG CAP PO SCH ×3 (09:00→17:19)
[2016-11-13] MEDS: LISINOPRIL 10 MG TAB PO SCH (09:00)
[2016-11-13] MEDS: FERROUS SULFATE 325 MG (65 MG ELEMENTAL IRON) TAB PO SCH (09:00)
[2016-11-13] MEDS: LACTULOSE SYRUP 20 GM/30 ML CUP PO SCH (09:00)
[2016-11-13] MEDS: CALCIUM/VITAMIN D 250 MG/125 U TAB PO SCH ×3 (09:00→17:19)
[2016-11-13] MEDS: PANTOPRAZOLE SOD 40 MG DELAYED RELEASE TAB PO SCH (09:00)
[2016-11-13] MEDS: DOCUSATE SODIUM 50 MG/SENNA 8.6 MG TAB PO SCH ×2 (09:00→20:40)
[2016-11-13] MEDS: FOLIC ACID 1 MG TAB PO SCH (09:00)
[2016-11-13] MEDS: THIAMINE HCL 100 MG TAB PO SCH (09:00)
[2016-11-13] MEDS: ASPIRIN 81 MG CHEW TAB CHEW SCH (09:00)
[2016-11-13] MEDS: SODIUM CHLORIDE 0.9% FLUSH 10 ML FLUSH IV FLUSH SCH ×2 (09:00→20:41)
[2016-11-13] MEDS: NEOMYCIN/POLYMYXIN/BACITRACIN OINT 15 GM TUBE TOPICAL SCH (09:00)
[2016-11-13] MEDS ORDERED: MIDAZOLAM HCL 2 MG/2 ML VIAL ONE (09:25)
[2016-11-13] MEDS ORDERED: fentaNYL CITRATE 250 MCG/5 ML AMP ONE (09:25)
--- NOTE | 2016-11-13 11:31 | HHI.PR ---
Subjective Subjective Notes PTD: 6 Patient lying in bed. Visitor at bedside. " I'm hurting like hell, but other than that." " I have no idea what's going on here." Objective Vitals/I&O Vital Signs Date Time Temp Pulse Resp B/P Pulse Ox O2 Delivery O2 Flow Rate FiO2 11/13/16 10:10 97.8 60 16 117/61 95 Nasal Cannula 3 11/12/16 13:54 21 Labs Laboratory Tests Test 11/12/16 11/13/16 20:00 07:13 White Blood Count 10.9 12.5 Red Blood Count 2.92 2.90 Hemoglobin 9.5 9.3 Hematocrit 27.8 27.7 Mean Corpuscular Volume 95.2 95.7 Mean Corpuscular Hemoglobin 32.4 32.0 Mean Corpuscular Hemoglobin 34.1 33.5 Concent Red Cell Distribution Width 14.1 14.2 Platelet Count 183 206 Mean Platelet Volume 7.8 7.9 Sodium Level 131 131 Potassium Level 3.3 3.7 Chloride Level 97 97 Carbon Dioxide Level 26.9 24.9 Anion Gap 7 9 Blood Urea Nitrogen 12 11 Creatinine 0.86 0.66 Estimat Glomerular Filtration 90 123 Rate Random Glucose 175 109 Calcium Level 7.6 7.9 Neutrophils (%) (Auto) 79.7 Lymphocytes (%) (Auto) 5.5 Monocytes (%) (Auto) 12.9 Eosinophils (%) (Auto) 1.6 Basophils (%) (Auto) 0.3 Neutrophils # (Auto) 10.0 Lymphocytes # (Auto) 0.7 Monocytes # (Auto) 1.6 Eosinophils # (Auto) 0.2 Basophils # (Auto) 0.0 CBC Comment DIFF FINAL Differential Comment Total Bilirubin 0.5 Aspartate Amino Transf 74 (AST/SGOT) Alanine Aminotransferase 16 (ALT/SGPT) Alkaline Phosphatase 70 Total Protein 5.9 Albumin 1.9 Radiology Last Impressions Tibia/Fibula X-Ray 11/10/16 0000 Signed Impressions: Service Date/Time: Thursday, November 10, 2016 10:07 - CONCLUSION: Anatomic Alignment following left tibial IM mariano. Arvind Flores MD FACR Ankle X-Ray 11/10/16 0000 Signed Impressions: Service Date/Time: Thursday, November 10, 2016 10:07 - CONCLUSION: Anatomic alignment following ORIF in an external fixator. Arvind Flores MD FACR Pelvis X-Ray 11/07/16 2060 Signed Impressions: Service Date/Time: Monday, November 07, 2016 13:34 - CONCLUSION: No acute disease. Behzad Finch Jr., MD Chest X-Ray 11/07/16 9663 Signed Impressions: Service Date/Time: Monday, November 07, 2016 13:34 - CONCLUSION: No acute disease. Jac Gonzales MD Narrative Exam GENERAL: This is a 61-year-old male sitting up in bed. No distress noted. SKIN: Warm and dry. HEAD: Atraumatic. Normocephalic. EYES: PERRLA ENT: No nasal bleeding or discharge. Mucous membranes pink and moist. NECK: Trachea midline. No JVD. CARDIOVASCULAR: Regular rate and rhythm. RESPIRATORY: No accessory muscle use. Lungs are clear to auscultation. Breath sounds equal bilaterally. No distress or dyspnea. GASTROINTESTINAL: BS + x 4 quads. Abdomen soft, non-tender, nondistended. MUSCULOSKELETAL: Extremities without cyanosis, or edema. Right lower extremity ex-fix in place. Left lower extremity with wound VAC in place and wrapped in Raul bandage. + peripheral pulses x 4 extremities. Warm with good capillary refill and sensation. MAEW. NEUROLOGICAL: Awake and alert. Normal speech and pattern. 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 PMHx: HLD, DM, HTN, CAD, CVA, GERD, tremor? INJURIES: BILAT Open tib/fib fxs Procedures: 11/07: Bilateral tib/fib I & D, bilateral external fixation w wound vac to LEFT 11/10: ORIF RIGHT tib/fib fx. I&D LEFT tib fx. Muscle flap. IM Nail LEFT tibia w wound vac. 11/13: LEFT leg I&D. Consults: Orthopedics. Hospitalists. Diet: Regular ADA diet once awake after OR. Encourage good po intake with each meal. Pulmonary: Encourage good pulmonary toileting. IS at bedside and pt encouraged to use. Rationale for use explained to patient, and verbalized understanding. Intensified with acapella and EZ pap. Added duo nebs PRN wheezing Hypertension management: Lisinopril. Propanolol. (Pravachol). PAIN Management: [place] 10 mg q 3 h. Morphine 6 mg q 2h. Toradol 30 mg q 12 h. Neurontin 400 mg TID. CIWA protocol in place, with the addition of Haldol 2 mg PRN Activity: Bedrest per Dr. Mathias. PT and OT ordered. (NWB BLE) wheelchair training. GI prophylaxis: Protonix po. Bowel regimen: Elke-colace and MOM. Lactulose. LBM: 11/12. DVT prophylaxis: Mechanical VTE with SCDs. Chemical management with Lovenox 30 BID SQ. DC Planning: Case management consulted for assistance with final discharge disposition. Surgery completed today/left leg I&D. Plans may be arranged by Dr. Mathias for patient to transfer to [facility] for a free flap. Await Dr. Mathias's plan. Emotional support provided to patient and family at bedside and plan of care discussed. Discussed with RN at bedside. Patient is hemodynamically stable and being managed on the med/surg floor. BILAT Open tib/fib fxs Orthopedics consulted and assisting in management and care 11/07: Bilateral tib/fib I & D, bilateral external fixation w wound vac to LEFT 11/10: ORIF RIGHT tib/fib fx. I&D LEFT tib fx. Muscle flap. IM Nail LEFT tibia w wound vac. 11/13: LEFT leg I&D. Patient may need to go to [facility] for a free flap - awaiting Dr. Mathias's plan Pain management. PT and OT ordered Bedrest only per Dr. Mathias NWB BLE IV antibiotics DVT prophylaxis Posttraumatic blood loss anemia H&H - 9.11/12: PRBC x 2 Continue to monitor closely Transfuse for hemoglobin less than 7.0 Hypertension Diabetes Hospitalist consulted and assisting in management and care Resume home medications - lisinopril. Propanolol. Resume Pravachol ADA diet Sliding-scale insulin EtOH abuse CIWA protocol Haldol 2 mg PRN MVI Serial neuro checks Monitor for withdrawal Attending Statement The exam, history, and the medical decision-making described in the above note were completed with the assistance of the mid-level provider. I reviewed and agree with the findings presented. I attest that I had a [id number] encounter with the patient on the same day, and personally performed and documented my assessment and findings in the medical record. bilateral extremities warm, perfused, exfix on right wants to go home TERELL continue PT/OT DC once cleared by ortho Problem Qualifiers (1) Fracture of tibia, left, open: Qualified Code: S82.255B - Type I or II open nondisplaced comminuted fracture of shaft of left tibia, initial encounter (2) Fracture of tibia, right, open: Qualified Code: S82.251C - Type III open displaced comminuted fracture of shaft of right tibia, initial encounter Josefina Yin Nov 13, 2016 11:31 Kayden Manrique MD Nov 13, 2016 22:50
[2016-11-13] MEDS ORDERED: ePHEDrine/NS 25 MG/5 ML SYR IV ONE (12:00)
[2016-11-13] MEDS ORDERED: ONDANSETRON HCL 4 MG/2 ML VIAL IV PUSH ONE (12:00)
[2016-11-13] MEDS ORDERED: PROPOFOL 200 MG/20 ML AMP IV ONE (12:00)
[2016-11-13] MEDS ORDERED: NEOSTIGMINE 3 MG/3 ML SYR IV ONE (12:00)
[2016-11-13] MEDS ORDERED: PHENYLEPH/NS 1000 MCG/10 ML SYR IV ONE (12:00)
[2016-11-13] MEDS ORDERED: LACTATED RINGER'S 1000 ML INJ 1,000 ML IV ONE (12:00)
--- NOTE | 2016-11-13 14:17 | HHI.PR ---
Subjective Remarks Seen postop. We are still determining at the patient's graft surgery will be enough for if he needs a flap procedure. Patient seen postop and has no complaints of pain. Objective Vital Signs Date Time Temp Pulse Resp B/P Pulse Ox O2 Delivery O2 Flow Rate FiO2 11/13/16 12:00 87 11/13/16 11:38 96.4 61 17 100/56 95 11/13/16 10:10 97.8 60 16 117/61 95 Nasal Cannula 3 11/13/16 10:02 96 Simple Mask 8.00 11/13/16 10:00 61 16 112/63 93 Nasal Cannula 3 11/13/16 09:45 62 16 110/66 92 Nasal Cannula 3 11/13/16 09:30 63 16 108/65 96 Simple Mask 8 11/13/16 09:15 98.3 65 18 100/56 94 Simple Mask 8 11/13/16 07:40 99.1 68 17 95/54 95 11/13/16 04:40 99.9 67 18 93/51 95 11/13/16 01:07 18 11/13/16 00:15 100.1 72 18 106/57 96 11/12/16 20:40 100.5 83 18 116/59 96 11/12/16 19:30 Nasal Cannula 3.00 11/12/16 15:45 99.1 76 19 106/59 96 11/12/16 14:38 99.9 74 18 97/46 97 I/O 11/12/16 11/12/16 11/12/16 11/13/16 11/13/16 11/13/16 06:59 14:59 22:59 06:59 14:59 22:59 Intake Total 828 ml 960 ml 240 ml 0 ml 1100 ml Output Total 1600 ml 2700 ml 1150 ml 1000 ml 610 ml Balance -772 ml -1740 ml -910 ml -1000 ml 490 ml Intake Oral 240 ml 960 ml 240 ml 0 ml IV Total 588 ml 100 ml Other 1000 ml Output Urine Total 1400 ml 2650 ml 1150 ml 1000 ml 600 ml Drainage Total 200 ml 50 ml Estimated Blood Loss 10 ml # Voids 0 # Bowel Movements 1 0 0 0 Result Diagram: 11/13/1671211/13/16712 Objective Remarks GENERAL: NAD, A&Ox3 HEAD: Normocephalic. NECK: Supple, trachea midline. No lymphadenopathy. EYES: No scleral icterus. No injection or drainage. CARDIOVASCULAR: Regular rate and rhythm without murmurs, gallops, or rubs. RESPIRATORY: Breath sounds equal bilaterally. No accessory muscle use. GASTROINTESTINAL: Abdomen soft, non-tender, nondistended. MUSCULOSKELETAL: No cyanosis, or edema. Right lower leg bandaged with external fixation in place. Left lower and upper leg bandaged SKIN: Warm and dry. NEURO: No focal neurological deficitis. A/P Problem List: (1) Fracture of tibia, left, open ICD Code: S82.202B (2) Fracture of tibia, right, open ICD Code: S82.201B Assessment and Plan Assessment and Plan 61-year-old male admitted secondary to bilateral leg trauma after car fell on his legs while he was working on. Open fractures were present bilaterally. Now status post surgical repair Bilateral open tibia-fibula fractures Left tibial plateau fracture Open fractures have been surgically repaired, right side has external fixation Determination of need for transfer to [facility] is in process Patient doing well postop here today Continue pain treatments Continue DVT prophylaxis Continue wound VAC as needed Orthopedics following Anemia Related to blood loss Stable since transfusion Follow hemoglobin and hematocrit Coronary artery disease Asymptomatic Continue beta gil, MARGIE inhibitor, and statin Hypertension Treatments being held Narcotics have a blood pressure depressing effect in this patient Diabetes mellitus type 2 Follow blood sugars Insulin sliding scale Diabetic diet Alcohol abuse Elevated LFTs No DTs when seen Cessation recommended Tobacco abuse Cessation recommended Chronic essential tremor Continue Inderal Discharge Planning Long-term plan is for discharge to home with wheelchair needed as patient rehabs over long-term period of time (3 months or more) Problem Qualifiers (1) Fracture of tibia, left, open: Qualified Code: S82.255B - Type I or II open nondisplaced comminuted fracture of shaft of left tibia, initial encounter (2) Fracture of tibia, right, open: Qualified Code: S82.251C - Type III open displaced comminuted fracture of shaft of right tibia, initial encounter Sony Pickard MD Nov 13, 2016 14:17
[2016-11-13] MEDS: MORPHINE SULFATE 8 MG/ML INJ IV PUSH PRN ×2 (14:50→20:43)
[2016-11-13] MEDS: PRAVASTATIN SOD 80 MG TAB PO SCH (20:40)
[2016-11-13] MEDS: MAGNESIUM HYDROXIDE SUSP 30 ML CUP PO SCH (20:41)
[2016-11-14] VITALS (7 sets, daily range): BP systolic 98–120; BP diastolic 56–67; PULSE 62–74; RESP 16–18; TEMP 96.5–98.9; O2SAT 95–98
[2016-11-14] MEDS: MORPHINE SULFATE 8 MG/ML INJ IV PUSH PRN ×5 (00:55→19:46)
[2016-11-14] MEDS: GENTAMICIN 80 MG PREMIX 100 ML IV SCH ×3 (02:15→17:53)
[2016-11-14] MEDS: CALCIUM CARBONATE 500 MG CHEWABLE TAB CHEW PRN (02:31)
[2016-11-14] MEDS: ceFAZolin 2 GM PREMIX 50 ML IV SCH ×3 (04:28→19:46)
[2016-11-14] MEDS: ACETAMINOPHEN/HYDROcodone 325 MG/10 MG TAB PO PRN ×5 (04:28→22:10)
[2016-11-14] MEDS: INSULIN ASPART SUPPLEMENTAL SCALE SQ SCH ×4 (06:18→19:47)
[2016-11-14 06:31] LABS: HEMATOCRIT 27.4 % (39.0-51.0); MEAN CELL VOLUME 95.9 FL (80.0-100.0); MEAN CORPUSCULAR HEMOGLOBIN 31.7 PG (27.0-34.0); PLATELET COUNT 225 TH/MM3 (150-450); RED BLOOD COUNT 2.86 MIL/MM3 (4.50-5.90); RED CELL DISTRIBUTION WIDTH 14.2 % (11.6-17.2); REVIEW FLAG FINAL; WHITE BLOOD COUNT 11.8 TH/MM3 (4.0-11.0)
[2016-11-14 07:00] LABS: BICARBONATE 29.5 MEQ/L (21.0-32.0); POTASSIUM 4.3 MEQ/L (3.5-5.1)
--- NOTE | 2016-11-14 07:44 | PD.ORT.PN ---
Subjective Subjective Remarks Pain controlled Objective Vitals Vital Signs Date Time Temp Pulse Resp B/P Pulse Ox O2 Delivery O2 Flow Rate FiO2 11/14/16 04:00 97.0 68 16 108/67 96 11/14/16 00:00 98.0 69 16 104/61 98 11/13/16 19:50 97.9 67 20 102/74 99 11/13/16 16:00 97.5 62 17 104/57 94 11/13/16 12:00 87 11/13/16 11:38 96.4 61 17 100/56 95 11/13/16 10:10 97.8 60 16 117/61 95 Nasal Cannula 3 11/13/16 10:02 96 Simple Mask 8.00 11/13/16 10:00 61 16 112/63 93 Nasal Cannula 3 11/13/16 09:45 62 16 110/66 92 Nasal Cannula 3 11/13/16 09:30 63 16 108/65 96 Simple Mask 8 11/13/16 09:15 98.3 65 18 100/56 94 Simple Mask 8 I/O 11/13/16 11/13/16 11/13/16 11/14/16 11/14/16 11/14/16 07:00 15:00 23:00 07:00 15:00 23:00 Intake Total 0 ml 1650 ml 960 ml 720 ml Output Total 1000 ml 1560 ml 1900 ml 1650 ml Balance -1000 ml 90 ml -940 ml -930 ml Intake Oral 0 ml 550 ml 960 ml 720 ml IV Total 100 ml Other 1000 ml Output Urine Total 1000 ml 1550 ml 1900 ml 1650 ml Estimated Blood Loss 10 ml # Bowel Movements 0 0 Result Diagram: 11/14/1612 11/14/16 0612 Imaging Last 24 hours Impressions Pelvis X-Ray 11/07/16 1355 Signed Impressions: Service Date/Time: Monday, November 07, 2016 13:34 - CONCLUSION: No acute disease. Behzad Finch Jr., MD Chest X-Ray 11/07/16 1355 Signed Impressions: Service Date/Time: Monday, November 07, 2016 13:34 - CONCLUSION: No acute disease. Jac Gonzales MD Objective Remarks RLE: Dressings clean and dry. intact. NVI with full sensation and motor function. +exfix. pin sites. clean LLE: +vac. good seal. no sensation over medial foot. inability to dorsiflex or flex toes/foot. Assessment & Plan Assessment and Plan 1) Right Open Tibia Fracture s/p exfix revision with ORIF - POD 4 2) Left Open Tibia Fracture s/p Soleus muscle flap with IMN and removal of exfix - POD 1 -NWB BLE -pin care BID right leg -maintain vac left leg -vac settinmmHg, intermittent, 3:1 -Will plan on vac change bedside on Thursday and - have Ioban, Xeroform and extra-large wound VAC sponge bedside Ronald Hatch Jr. Nov 14, 2016 07:44
[2016-11-14] MEDS: NEOMYCIN/POLYMYXIN/BACITRACIN OINT 15 GM TUBE TOPICAL SCH (09:00)
[2016-11-14] MEDS: PROPRANOLOL HCL 80 MG TAB PO SCH ×2 (09:00→19:46)
[2016-11-14] MEDS: LACTULOSE SYRUP 20 GM/30 ML CUP PO SCH (09:00)
[2016-11-14] MEDS: DOCUSATE SODIUM 50 MG/SENNA 8.6 MG TAB PO SCH ×2 (09:00→19:46)
[2016-11-14] MEDS: LISINOPRIL 10 MG TAB PO SCH (09:00)
[2016-11-14] MEDS: GABAPENTIN 400 MG CAP PO SCH ×3 (09:24→17:51)
[2016-11-14] MEDS: FERROUS SULFATE 325 MG (65 MG ELEMENTAL IRON) TAB PO SCH (09:24)
[2016-11-14] MEDS: THIAMINE HCL 100 MG TAB PO SCH (09:24)
[2016-11-14] MEDS: PANTOPRAZOLE SOD 40 MG DELAYED RELEASE TAB PO SCH (09:24)
[2016-11-14] MEDS: CALCIUM/VITAMIN D 250 MG/125 U TAB PO SCH ×3 (09:25→17:51)
[2016-11-14] MEDS: ASPIRIN 81 MG CHEW TAB CHEW SCH (09:25)
[2016-11-14] MEDS: SODIUM CHLORIDE 0.9% FLUSH 10 ML FLUSH IV FLUSH SCH ×2 (09:26→19:47)
--- NOTE | 2016-11-14 10:56 | HHI.PR ---
Subjective Remarks Pain was present overnight but is better controlled today. Patient's primary complaint is difficulty sleeping at night. Long-term hospitalization is expected and patient understands possible need of amputation if no healing occurs or infection starts. Objective Vital Signs Date Time Temp Pulse Resp B/P Pulse Ox O2 Delivery O2 Flow Rate FiO2 11/14/16 07:50 97.6 64 18 109/67 95 11/14/16 04:00 97.0 68 16 108/67 96 11/14/16 00:00 98.0 69 16 104/61 98 11/13/16 20:40 74 11/13/16 20:40 98 Nasal Cannula 3.00 11/13/16 19:50 97.9 67 20 102/74 99 11/13/16 16:00 97.5 62 17 104/57 94 11/13/16 12:00 87 11/13/16 11:38 96.4 61 17 100/56 95 I/O 11/13/16 11/13/16 11/13/16 11/14/16 11/14/16 11/14/16 07:00 15:00 23:00 07:00 15:00 23:00 Intake Total 0 ml 1650 ml 960 ml 720 ml Output Total 1000 ml 1560 ml 1900 ml 1650 ml Balance -1000 ml 90 ml -940 ml -930 ml Intake Oral 0 ml 550 ml 960 ml 720 ml IV Total 100 ml Other 1000 ml Output Urine Total 1000 ml 1550 ml 1900 ml 1650 ml Drainage Total 0 ml 0 ml Estimated Blood Loss 10 ml # Bowel Movements 0 0 Result Diagram: 11/14/1661111/14/16 0612 Objective Remarks GENERAL: NAD, A&Ox3 HEAD: Normocephalic. NECK: Supple, trachea midline. No lymphadenopathy. EYES: No scleral icterus. No injection or drainage. CARDIOVASCULAR: Regular rate and rhythm without murmurs, gallops, or rubs. RESPIRATORY: Breath sounds equal bilaterally. No accessory muscle use. GASTROINTESTINAL: Abdomen soft, non-tender, nondistended. MUSCULOSKELETAL: No cyanosis, or edema. Right lower leg bandaged with external fixation in place. Left lower and upper leg bandaged SKIN: Warm and dry. NEURO: No focal neurological deficitis. A/P Problem List: (1) Fracture of tibia, left, open ICD Code: S82.202B (2) Fracture of tibia, right, open ICD Code: S82.201B Assessment and Plan Assessment and Plan 61-year-old male admitted secondary to bilateral leg trauma after car fell on his legs while he was working on. Open fractures were present bilaterally. Now status post surgical repair. Ambien started for insomnia. Plan for further surgical intervention in 3 days. Bilateral open tibia-fibula fractures Left tibial plateau fracture Open fractures have been surgically repaired, right side has external fixation Determination of need for transfer to [facility] is in process Patient doing well postop here today Continue pain treatments Continue DVT prophylaxis Continue wound VAC as needed Orthopedics following Anemia Related to blood loss Stable since transfusion Follow hemoglobin and hematocrit Coronary artery disease Asymptomatic Continue beta gil, MARGIE inhibitor, and statin Hypertension Treatments being held Narcotics have a blood pressure depressing effect in this patient Diabetes mellitus type 2 Follow blood sugars Insulin sliding scale Diabetic diet Alcohol abuse Elevated LFTs No DTs when seen Cessation recommended Tobacco abuse Cessation recommended Chronic essential tremor Continue Inderal Discharge Planning Long-term plan is for discharge to home with wheelchair needed as patient rehabs over long-term period of time (3 months or more) Problem Qualifiers (1) Fracture of tibia, left, open: Qualified Code: S82.255B - Type I or II open nondisplaced comminuted fracture of shaft of left tibia, initial encounter (2) Fracture of tibia, right, open: Qualified Code: S82.251C - Type III open displaced comminuted fracture of shaft of right tibia, initial encounter Sony Pickard MD Nov 14, 2016 10:56
--- NOTE | 2016-11-14 14:40 | HHI.PR ---
Subjective Subjective Notes Complains of insomnia Pain controlled Objective Vitals/I&O Vital Signs Date Time Temp Pulse Resp B/P Pulse Ox O2 Delivery O2 Flow Rate FiO2 11/14/16 11:48 97.6 74 18 120/59 95 11/14/16 11:37 Nasal Cannula 3.00 11/12/16 13:54 21 Labs Laboratory Tests Test 11/14/16 06:12 White Blood Count 11.8 Red Blood Count 2.86 Hemoglobin 9.1 Hematocrit 27.4 Mean Corpuscular Volume 95.9 Mean Corpuscular Hemoglobin 31.7 Mean Corpuscular Hemoglobin 33.0 Concent Red Cell Distribution Width 14.2 Platelet Count 225 Mean Platelet Volume 7.8 Sodium Level 135 Potassium Level 4.3 Chloride Level 98 Carbon Dioxide Level 29.5 Anion Gap 8 Blood Urea Nitrogen 11 Creatinine 0.75 Estimat Glomerular Filtration 106 Rate Random Glucose 136 Calcium Level 8.5 Radiology Last Impressions Tibia/Fibula X-Ray 11/10/16 0000 Signed Impressions: Service Date/Time: Thursday, November 10, 2016 10:07 - CONCLUSION: Anatomic Alignment following left tibial IM mariano. Arvind Flores MD FACR Ankle X-Ray 11/10/16 0000 Signed Impressions: Service Date/Time: Thursday, November 10, 2016 10:07 - CONCLUSION: Anatomic alignment following ORIF in an external fixator. Arvind Flores MD FACR Pelvis X-Ray 11/07/16 1355 Signed Impressions: Service Date/Time: Monday, November 07, 2016 13:34 - CONCLUSION: No acute disease. Behzad Finch Jr., MD Chest X-Ray 11/07/16 1355 Signed Impressions: Service Date/Time: Monday, November 07, 2016 13:34 - CONCLUSION: No acute disease. Jac Gonzales MD Narrative Exam GENERAL: 61 year old well-nourished male OOB in wheelchair. SKIN: Warm and dry. HEAD: Atraumatic. Normocephalic. NECK: Trachea midline. No JVD. CARDIOVASCULAR: Regular rate and rhythm. RESPIRATORY: No accessory muscle use. Lungs clear to auscultation. Breath sounds equal bilaterally. GASTROINTESTINAL: Abdomen soft, non-tender, nondistended. + BS. MUSCULOSKELETAL: Extremities without cyanosis, or edema. RLE with ex-fix. LLE with tamia wrap and wound vac in place. + pulses x4, MAEW. NEUROLOGICAL: Awake and alert. Normal speech. A/P Problem List: (1) Fracture of tibia, left, open (2) Fracture of tibia, right, open Assessment and Plan INJURIES: BILAT Open tib/fib fxs 11/07: Bilateral tib/fib I & D, bilateral external fixation 11/10: ORIF RIGHT tib/fib fx. I&D LEFT tib fx. Muscle flap. IM Nail LEFT tibia w wound vac placement 11/13: LEFT leg I&D PMHx: HLD, DM, HTN, CAD, CVA, GERD, tremor? Diet: ADA, tolerating Pulmonary: IS Pain: [place]ony, Toradol IV, Neurontin, IV Morphine Activity: OOB. PT ordered (NWB BLE) GI: PO Protonix Bowel: Elke-colace, PRN Lactulose. LBM 11/12 DVT: SCDs, Lovenox 30 BID BILAT Open tib/fib fxs Orthopedics consulted 11/07: Bilateral tib/fib I & D, bilateral external fixation 11/10: ORIF RIGHT tib/fib fx. I&D LEFT tib fx. Muscle flap. IM Nail LEFT tibia w wound vac placement 11/13: LEFT leg I&D Pain control Pin care BID OOB- PT - W/C training NWB BLE ABX: Gentamycin, Ancef Insomnia Added Trazodone 100 HS DC gomez today Plan of care discussed with patient and RN at bedside. Case management consulted to assist with discharge planning. Problem Qualifiers (1) Fracture of tibia, left, open: Qualified Code: S82.255B - Type I or II open nondisplaced comminuted fracture of shaft of left tibia, initial encounter (2) Fracture of tibia, right, open: Qualified Code: S82.251C - Type III open displaced comminuted fracture of shaft of right tibia, initial encounter Alina Sosa [employer] Nov 14, 2016 14:40
[2016-11-14] MEDS: LACTATED RINGER'S 1000 ML INJ 1,000 ML IV SCH ×2 (14:42→19:47)
[2016-11-14] MEDS: traZODone HCL 100 MG TAB PO SCH (19:46)
[2016-11-14] MEDS: MAGNESIUM HYDROXIDE SUSP 30 ML CUP PO SCH (19:46)
[2016-11-14] MEDS: PRAVASTATIN SOD 80 MG TAB PO SCH (19:46)
[2016-11-15 00:35] VITALS: BP 114/65; PULSE 68; RESP 18; TEMP 98.3; O2SAT 96
[2016-11-15] MEDS: GENTAMICIN 80 MG PREMIX 100 ML IV SCH ×3 (02:03→17:58)
[2016-11-15] MEDS: ACETAMINOPHEN/HYDROcodone 325 MG/10 MG TAB PO PRN ×6 (02:07→22:38)
[2016-11-15] MEDS: ceFAZolin 2 GM PREMIX 50 ML IV SCH ×3 (05:01→19:56)
[2016-11-15] MEDS: INSULIN ASPART SUPPLEMENTAL SCALE SQ SCH ×4 (07:00→19:58)
[2016-11-15 08:00] VITALS: BP 121/70; PULSE 70; RESP 18; TEMP 97.6; O2SAT 97
[2016-11-15] MEDS: THIAMINE HCL 100 MG TAB PO SCH (08:24)
[2016-11-15] MEDS: FERROUS SULFATE 325 MG (65 MG ELEMENTAL IRON) TAB PO SCH (08:25)
[2016-11-15] MEDS: PROPRANOLOL HCL 80 MG TAB PO SCH ×2 (08:25→19:58)
[2016-11-15] MEDS: ASPIRIN 81 MG CHEW TAB CHEW SCH (08:26)
[2016-11-15] MEDS: PANTOPRAZOLE SOD 40 MG DELAYED RELEASE TAB PO SCH (08:26)
[2016-11-15] MEDS: GABAPENTIN 400 MG CAP PO SCH ×3 (08:27→17:55)
[2016-11-15] MEDS: CALCIUM/VITAMIN D 250 MG/125 U TAB PO SCH ×3 (08:27→17:55)
[2016-11-15] MEDS: LISINOPRIL 10 MG TAB PO SCH (08:28)
[2016-11-15] MEDS: DOCUSATE SODIUM 50 MG/SENNA 8.6 MG TAB PO SCH ×2 (08:28→19:58)
[2016-11-15] MEDS: LACTULOSE SYRUP 20 GM/30 ML CUP PO SCH (08:29)
[2016-11-15] MEDS: SODIUM CHLORIDE 0.9% FLUSH 10 ML FLUSH IV FLUSH SCH ×2 (08:30→19:58)
[2016-11-15] MEDS: NEOMYCIN/POLYMYXIN/BACITRACIN OINT 15 GM TUBE TOPICAL SCH (08:31)
--- NOTE | 2016-11-15 10:35 | HHI.PR ---
Subjective Remarks Pain controlled except when patient moves. Plan for further surgical intervention on Thursday. Patient slept better with Ambien. Objective Vital Signs Date Time Temp Pulse Resp B/P Pulse Ox O2 Delivery O2 Flow Rate FiO2 11/15/16 08:00 97.6 70 18 121/70 97 11/15/16 00:35 98.3 68 18 114/65 96 11/14/16 22:07 21 11/14/16 20:35 98.9 65 18 98/56 95 11/14/16 19:45 96 Nasal Cannula 2.00 11/14/16 16:00 96.5 62 18 119/62 97 11/14/16 11:48 97.6 74 18 120/59 95 11/14/16 11:37 96 Nasal Cannula 3.00 I/O 11/14/16 11/14/16 11/14/16 11/15/16 11/15/16 11/15/16 07:00 15:00 23:00 07:00 15:00 23:00 Intake Total 720 ml 620 ml 240 ml 480 ml Output Total 1650 ml 50 ml 600 ml 1400 ml Balance -930 ml 570 ml -360 ml -920 ml Intake Oral 720 ml 620 ml 240 ml 480 ml Output Urine Total 1650 ml 600 ml 1400 ml Drainage Total 0 ml 50 ml 0 ml 0 ml # Voids 2 # Bowel Movements 2 1 Result Diagram: 11/14/1661111/14/16611 Objective Remarks GENERAL: NAD, A&Ox3 HEAD: Normocephalic. NECK: Supple, trachea midline. No lymphadenopathy. EYES: No scleral icterus. No injection or drainage. CARDIOVASCULAR: Regular rate and rhythm without murmurs, gallops, or rubs. RESPIRATORY: Breath sounds equal bilaterally. No accessory muscle use. GASTROINTESTINAL: Abdomen soft, non-tender, nondistended. MUSCULOSKELETAL: No cyanosis, or edema. Right lower leg bandaged with external fixation in place. Left lower and upper leg bandaged SKIN: Warm and dry. NEURO: No focal neurological deficitis. A/P Problem List: (1) Fracture of tibia, left, open ICD Code: S82.202B (2) Fracture of tibia, right, open ICD Code: S82.201B Assessment and Plan Assessment and Plan 61-year-old male admitted secondary to bilateral leg trauma after car fell on his legs while he was working on. Open fractures were present bilaterally. Now status post surgical repair. Sonny has had benefit and will be continued. Plan for further surgical intervention in 2 days. Continue PT. Continue monitoring in the hospital. Bilateral open tibia-fibula fractures Left tibial plateau fracture Open fractures have been surgically repaired, right side has external fixation Determination of need for transfer to [facility] is in process Patient doing well postop here today Continue pain treatments Continue DVT prophylaxis Continue wound VAC as needed Orthopedics following Anemia Related to blood loss Stable since transfusion Follow hemoglobin and hematocrit Coronary artery disease Asymptomatic Continue beta gil, MARGIE inhibitor, and statin Hypertension Treatments being held Narcotics have a blood pressure depressing effect in this patient Diabetes mellitus type 2 Follow blood sugars Insulin sliding scale Diabetic diet Alcohol abuse Elevated LFTs No DTs when seen Cessation recommended Tobacco abuse Cessation recommended Chronic essential tremor Continue Inderal Discharge Planning Long-term plan is for discharge to home with wheelchair needed as patient rehabs over long-term period of time (3 months or more) Problem Qualifiers (1) Fracture of tibia, left, open: Qualified Code: S82.255B - Type I or II open nondisplaced comminuted fracture of shaft of left tibia, initial encounter (2) Fracture of tibia, right, open: Qualified Code: S82.251C - Type III open displaced comminuted fracture of shaft of right tibia, initial encounter Sony Pickard MD Nov 15, 2016 10:35 am
[2016-11-15] MEDS: LACTATED RINGER'S 1000 ML INJ 1,000 ML IV SCH ×2 (10:42→20:42)
[2016-11-15 12:00] VITALS: BP 89/51; PULSE 62; RESP 18; TEMP 97.9; O2SAT 98
[2016-11-15 12:39] VITALS: BP 107/63; PULSE 61; RESP 18; O2SAT 94
--- NOTE | 2016-11-15 14:12 | HHI.PR ---
Subjective Subjective Notes Pain controlled Concerned about needing an amputation of his RLE Objective Vitals/I&O Vital Signs Date Time Temp Pulse Resp B/P Pulse Ox O2 Delivery O2 Flow Rate FiO2 11/15/16 12:39 61 18 107/63 94 11/15/16 12:00 97.9 11/14/16 22:07 21 11/14/16 19:45 Nasal Cannula 2.00 Radiology Last Impressions Tibia/Fibula X-Ray 11/10/16 0000 Signed Impressions: Service Date/Time: Thursday, November 10, 2016 10:07 - CONCLUSION: Anatomic Alignment following left tibial IM mariano. Arvind Flores MD FACR Ankle X-Ray 11/10/16 0000 Signed Impressions: Service Date/Time: Thursday, November 10, 2016 10:07 - CONCLUSION: Anatomic alignment following ORIF in an external fixator. Arvind Flores MD FACR Pelvis X-Ray 11/07/16 1355 Signed Impressions: Service Date/Time: Monday, November 07, 2016 13:34 - CONCLUSION: No acute disease. Behzad Finch Jr., MD Chest X-Ray 11/07/16 1355 Signed Impressions: Service Date/Time: Monday, November 07, 2016 13:34 - CONCLUSION: No acute disease. Jac Gonzales MD Narrative Exam GENERAL: 61 year old well-nourished male lying in bed. SKIN: Warm and dry. HEAD: Atraumatic. Normocephalic. NECK: Trachea midline. No JVD. CARDIOVASCULAR: Regular rate and rhythm. RESPIRATORY: No accessory muscle use. Lungs clear to auscultation. Breath sounds equal bilaterally. GASTROINTESTINAL: Abdomen soft, non-tender, nondistended. + BS. MUSCULOSKELETAL: Extremities without cyanosis, +2 edema RLE. RLE with ex-fix, pin sites clean. LLE with tamia wrap and wound vac in place. + pulses x4, MAEW. NEUROLOGICAL: Awake and alert. Normal speech. A/P Problem List: (1) Fracture of tibia, left, open (2) Fracture of tibia, right, open Assessment and Plan INJURIES: BILAT Open tib/fib fxs 11/07: Bilateral tib/fib I & D, bilateral external fixation 11/10: ORIF RIGHT tib/fib fx. I&D LEFT tib fx. Muscle flap. IM Nail LEFT tibia w wound vac placement 11/13: LEFT leg I&D PMHx: HLD, DM, HTN, CAD, CVA, GERD, tremor? Diet: ADA, tolerating. Added Glucerna shakes Pulmonary: IS Pain: [place], Toradol IV, Neurontin, IV Morphine Activity: OOB. PT ordered (NWB BLE) GI: PO Protonix Bowel: Elke-colace, PRN Lactulose. LBM 11/15 DVT: SCDs, Lovenox 30 BID BILAT Open tib/fib fxs Orthopedics consulted 11/07: Bilateral tib/fib I & D, bilateral external fixation 11/10: ORIF RIGHT tib/fib fx. I&D LEFT tib fx. Muscle flap. IM Nail LEFT tibia w wound vac placement 11/13: LEFT leg I&D Pain control Pin care BID OOB- PT - W/C training NWB BLE ABX: Gentamicin, Ancef Ortho planning vac change on Thursday Insomnia Trazodone 100 HS Plan of care discussed with patient and RN at bedside. Case management consulted to assist with discharge planning. Attending Statement The exam, history, and the medical decision-making described in the above note were completed with the assistance of the mid-level provider. I reviewed and agree with the findings presented. I attest that I had a [id number] encounter with the patient on the same day, and personally performed and documented my assessment and findings in the medical record. bilateral lower extremity open fractures, complex, may need flap at [facility], await ortho recs continue supportive care, PT, OOB, pain control Problem Qualifiers (1) Fracture of tibia, left, open: Qualified Code: S82.255B - Type I or II open nondisplaced comminuted fracture of shaft of left tibia, initial encounter (2) Fracture of tibia, right, open: Qualified Code: S82.251C - Type III open displaced comminuted fracture of shaft of right tibia, initial encounter Alina Sosa Nov 15, 2016 14:12 Kayden Manrique MD Nov 15, 2016 19:22
[2016-11-15] MEDS: CALCIUM CARBONATE 500 MG CHEWABLE TAB CHEW PRN (14:16)
[2016-11-15 16:00] VITALS: BP 95/54; PULSE 60; RESP 18; TEMP 99.2; O2SAT 99
[2016-11-15] MEDS: MAGNESIUM HYDROXIDE SUSP 30 ML CUP PO SCH (19:57)
[2016-11-15] MEDS: MORPHINE SULFATE 8 MG/ML INJ IV PUSH PRN (19:57)
[2016-11-15] MEDS: PRAVASTATIN SOD 80 MG TAB PO SCH (19:58)
[2016-11-15] MEDS: traZODone HCL 100 MG TAB PO SCH (19:58)
[2016-11-15 20:00] VITALS: BP 119/65; PULSE 68; RESP 21; TEMP 97.7; O2SAT 97
--- NOTE | 2016-11-15 21:48 | PD.ORT.PN ---
Subjective Subjective Remarks no issues. Objective Vitals Vital Signs Date Time Temp Pulse Resp B/P Pulse Ox O2 Delivery O2 Flow Rate FiO2 11/15/16 20:02 18 11/15/16 20:00 97.7 68 21 119/65 97 11/15/16 16:00 99.2 60 18 95/54 99 11/15/16 12:39 61 18 107/63 94 11/15/16 12:00 97.9 62 18 89/51 98 11/15/16 08:00 97.6 70 18 121/70 97 11/15/16 00:35 98.3 68 18 114/65 96 11/14/16 22:07 21 I/O 11/14/16 11/14/16 11/14/16 11/15/16 11/15/16 11/15/16 07:00 15:00 23:00 07:00 15:00 23:00 Intake Total 720 ml 620 ml 240 ml 480 ml 600 ml Output Total 1650 ml 50 ml 600 ml 1400 ml 1000 ml Balance -930 ml 570 ml -360 ml -920 ml -400 ml Intake Oral 720 ml 620 ml 240 ml 480 ml 600 ml Output Urine Total 1650 ml 600 ml 1400 ml 1000 ml Drainage Total 0 ml 50 ml 0 ml 0 ml # Voids 2 # Bowel Movements 2 1 1 Result Diagram: 11/14/1612 11/14/16 0612 Imaging Last 24 hours Impressions Pelvis X-Ray 11/07/16 1355 Signed Impressions: Service Date/Time: Monday, November 07, 2016 13:34 - CONCLUSION: No acute disease. Behzad Finch Jr., MD Chest X-Ray 11/07/16 1355 Signed Impressions: Service Date/Time: Monday, November 07, 2016 13:34 - CONCLUSION: No acute disease. Jac Gonzales MD Objective Remarks RLE: Dressings clean and dry. intact. NVI with full sensation and motor function. +exfix. pin sites. clean LLE: +vac. good seal. no sensation over medial foot. inability to dorsiflex or flex toes/foot. Assessment & Plan Assessment and Plan 1) Right Open Tibia Fracture s/p exfix revision with ORIF - POD 5 2) Left Open Tibia Fracture s/p Soleus muscle flap with IMN and removal of exfix - POD 2 -NWB BLE -pin care BID right leg -maintain vac left leg -vac settinmmHg, intermittent, 3:1 -Will plan on vac change bedside on Thursday and - have Ioban, Xeroform and extra-large wound VAC sponge bedside Yoandy Sosa Jr., MD Nov 15, 2016 21:47
[2016-11-16] VITALS (9 sets, daily range): BP systolic 95–114; BP diastolic 51–69; PULSE 59–75; RESP 16–18; TEMP 96.8–98.3; O2SAT 95–98
[2016-11-16] MEDS: ACETAMINOPHEN/HYDROcodone 325 MG/10 MG TAB PO PRN ×4 (02:37→17:43)
[2016-11-16] MEDS: GENTAMICIN 80 MG PREMIX 100 ML IV SCH ×2 (02:38→09:14)
[2016-11-16] MEDS: ceFAZolin 2 GM PREMIX 50 ML IV SCH ×3 (04:09→21:54)
[2016-11-16] MEDS: MORPHINE SULFATE 8 MG/ML INJ IV PUSH PRN (04:42)
[2016-11-16] MEDS: LACTATED RINGER'S 1000 ML INJ 1,000 ML IV SCH ×3 (04:58→21:53)
[2016-11-16] MEDS: INSULIN ASPART SUPPLEMENTAL SCALE SQ SCH ×4 (06:58→21:00)
[2016-11-16] MEDS: NEOMYCIN/POLYMYXIN/BACITRACIN OINT 15 GM TUBE TOPICAL SCH (09:00)
[2016-11-16] MEDS: LISINOPRIL 10 MG TAB PO SCH (09:00)
[2016-11-16] MEDS: PROPRANOLOL HCL 80 MG TAB PO SCH ×2 (09:00→21:53)
[2016-11-16] MEDS: PANTOPRAZOLE SOD 40 MG DELAYED RELEASE TAB PO SCH (09:10)
[2016-11-16] MEDS: LACTULOSE SYRUP 20 GM/30 ML CUP PO SCH (09:10)
[2016-11-16] MEDS: GABAPENTIN 400 MG CAP PO SCH (09:10)
[2016-11-16] MEDS: FERROUS SULFATE 325 MG (65 MG ELEMENTAL IRON) TAB PO SCH (09:10)
[2016-11-16] MEDS: CALCIUM/VITAMIN D 250 MG/125 U TAB PO SCH ×3 (09:12→17:42)
[2016-11-16] MEDS: DOCUSATE SODIUM 50 MG/SENNA 8.6 MG TAB PO SCH ×2 (09:12→21:53)
[2016-11-16] MEDS: ASPIRIN 81 MG CHEW TAB CHEW SCH (09:13)
[2016-11-16] MEDS: THIAMINE HCL 100 MG TAB PO SCH (09:13)
[2016-11-16] MEDS: SODIUM CHLORIDE 0.9% FLUSH 10 ML FLUSH IV FLUSH SCH ×2 (09:16→21:53)
[2016-11-16] MEDS ORDERED: MORPHINE SULFATE 15 MG CONTROLLED RELEASE TAB PO ONE (10:15)
--- NOTE | 2016-11-16 10:18 | HHI.PR ---
Subjective Remarks Further surgical intervention tomorrow. Primary complaint today is pain. No constipation. No other complaints. Objective Vital Signs Date Time Temp Pulse Resp B/P Pulse Ox O2 Delivery O2 Flow Rate FiO2 11/16/16 08:00 98.0 59 18 95/51 97 11/16/16 04:47 17 11/16/16 04:44 96 Nasal Cannula 2.00 11/16/16 04:35 97.0 60 17 95/55 95 11/16/16 03:37 16 11/16/16 01:37 Nasal Cannula 2.00 11/16/16 00:00 98.3 63 16 96/58 96 11/15/16 20:00 97.7 68 21 119/65 97 11/15/16 16:00 99.2 60 18 95/54 99 11/15/16 12:39 61 18 107/63 94 11/15/16 12:00 97.9 62 18 89/51 98 I/O 11/15/16 11/15/16 11/15/16 11/16/16 11/16/16 11/16/16 06:59 14:59 22:59 06:59 14:59 22:59 Intake Total 480 ml 1320 ml 720 ml Output Total 1400 ml 1650 ml 600 ml Balance -920 ml -330 ml 120 ml Intake Oral 480 ml 1320 ml 720 ml Output Urine Total 1400 ml 1650 ml 600 ml Drainage Total 0 ml 0 ml 0 ml # Bowel Movements 1 1 1 Result Diagram: 11/14/16 0612 11/14/16 0612 Objective Remarks GENERAL: NAD, A&Ox3 HEAD: Normocephalic. NECK: Supple, trachea midline. No lymphadenopathy. EYES: No scleral icterus. No injection or drainage. CARDIOVASCULAR: Regular rate and rhythm without murmurs, gallops, or rubs. RESPIRATORY: Breath sounds equal bilaterally. No accessory muscle use. GASTROINTESTINAL: Abdomen soft, non-tender, nondistended. MUSCULOSKELETAL: No cyanosis, or edema. Right lower leg bandaged with external fixation in place. Left lower and upper leg bandaged SKIN: Warm and dry. NEURO: No focal neurological deficitis. A/P Problem List: (1) Fracture of tibia, left, open ICD Code: S82.202B (2) Fracture of tibia, right, open ICD Code: S82.201B Assessment and Plan Assessment and Plan 61-year-old male admitted secondary to bilateral leg trauma after car fell on his legs while he was working on. Open fractures were present bilaterally. Now status post surgical repair. Further surgical intervention tomorrow. Pain treatments adjusted. MS Contin 15 mg by mouth every 12 hours added. Bilateral open tibia-fibula fractures Left tibial plateau fracture Open fractures have been surgically repaired, right side has external fixation Determination of need for transfer to [facility] is in process Patient doing well postop here today Continue pain treatments Continue DVT prophylaxis Continue wound VAC as needed Orthopedics following Anemia Related to blood loss Stable since transfusion Follow hemoglobin and hematocrit Coronary artery disease Asymptomatic Continue beta gil, MARGIE inhibitor, and statin Hypertension Treatments being held Narcotics have a blood pressure depressing effect in this patient Diabetes mellitus type 2 Follow blood sugars Insulin sliding scale Diabetic diet Alcohol abuse Elevated LFTs No DTs when seen Cessation recommended Tobacco abuse Cessation recommended Chronic essential tremor Continue Inderal Discharge Planning Long-term plan is for discharge to home with wheelchair needed as patient rehabs over long-term period of time (3 months or more) Problem Qualifiers (1) Fracture of tibia, left, open: Qualified Code: S82.255B - Type I or II open nondisplaced comminuted fracture of shaft of left tibia, initial encounter (2) Fracture of tibia, right, open: Qualified Code: S82.251C - Type III open displaced comminuted fracture of shaft of right tibia, initial encounter Sony Pickard MD Nov 16, 2016 10:18
--- NOTE | 2016-11-16 12:03 | PD.ORT.PN ---
Subjective Subjective Remarks POD 6 s/p IMN left tibia with soleus muscle flap POD 6 s/p ORIF with revision exfix right tibia POD 3 s/p vac change left leg doing well. pain controlled Objective Vitals Vital Signs Date Time Temp Pulse Resp B/P Pulse Ox O2 Delivery O2 Flow Rate FiO2 11/16/16 08:00 98.0 59 18 95/51 97 11/16/16 04:47 17 11/16/16 04:44 96 Nasal Cannula 2.00 11/16/16 04:35 97.0 60 17 95/55 95 11/16/16 03:37 16 11/16/16 01:37 Nasal Cannula 2.00 11/16/16 00:00 98.3 63 16 96/58 96 11/15/16 20:00 97.7 68 21 119/65 97 11/15/16 16:00 99.2 60 18 95/54 99 11/15/16 12:39 61 18 107/63 94 I/O 11/15/16 11/15/16 11/15/16 11/16/16 11/16/16 11/16/16 07:00 15:00 23:00 07:00 15:00 23:00 Intake Total 480 ml 1320 ml 720 ml Output Total 1400 ml 1650 ml 600 ml Balance -920 ml -330 ml 120 ml Intake Oral 480 ml 1320 ml 720 ml Output Urine Total 1400 ml 1650 ml 600 ml Drainage Total 0 ml 0 ml 0 ml # Bowel Movements 1 1 1 Result Diagram: 11/14/16 0612 11/14/16 0612 Imaging Last 24 hours Impressions Pelvis X-Ray 11/07/16 1355 Signed Impressions: Service Date/Time: Monday, November 07, 2016 13:34 - CONCLUSION: No acute disease. Behzad Finch Jr., MD Chest X-Ray 11/07/16 1355 Signed Impressions: Service Date/Time: Monday, November 07, 2016 13:34 - CONCLUSION: No acute disease. Jac Gonzales MD Objective Remarks RLE: Dressings clean and dry. intact. NVI with full sensation and motor function. +exfix. pin sites. clean LLE: +vac. good seal. no sensation over medial foot. inability to dorsiflex or flex toes/foot. Assessment & Plan Assessment and Plan 1) Right Open Tibia Fracture s/p exfix revision with ORIF - POD 6 2) Left Open Tibia Fracture s/p Soleus muscle flap with IMN and removal of exfix - POD 6 -NWB BLE -pin care BID right leg -maintain vac left leg -vac settinmmHg, intermittent, 3:1 -Will plan on vac change bedside on Thursday and - have Ioban, Xeroform and extra-large wound VAC sponge bedside Jef Steve Nov 16, 2016 12:03
[2016-11-16] MEDS: GABAPENTIN 300 MG CAP PO SCH ×2 (12:32→17:43)
--- NOTE | 2016-11-16 12:59 | HHI.PR ---
Subjective Subjective Notes Reports left leg pain was bad this AM Eating well Objective Vitals/I&O Vital Signs Date Time Temp Pulse Resp B/P Pulse Ox O2 Delivery O2 Flow Rate FiO2 11/16/16 08:00 98.0 59 18 95/51 97 11/16/16 04:44 Nasal Cannula 2.00 11/14/16 22:07 21 Radiology Last Impressions Tibia/Fibula X-Ray 11/10/16 0000 Signed Impressions: Service Date/Time: Thursday, November 10, 2016 10:07 - CONCLUSION: Anatomic Alignment following left tibial IM mariano. Arvind Flores MD FACR Ankle X-Ray 11/10/16 0000 Signed Impressions: Service Date/Time: Thursday, November 10, 2016 10:07 - CONCLUSION: Anatomic alignment following ORIF in an external fixator. Arvind Flores MD FACR Pelvis X-Ray 11/07/16 1355 Signed Impressions: Service Date/Time: Monday, November 07, 2016 13:34 - CONCLUSION: No acute disease. Behzad Finch Jr., MD Chest X-Ray 11/07/16 1355 Signed Impressions: Service Date/Time: Monday, November 07, 2016 13:34 - CONCLUSION: No acute disease. Jac Gonzales MD Narrative Exam GENERAL: 61 year old well-nourished male lying in bed. SKIN: Warm and dry. HEAD: Atraumatic. Normocephalic. NECK: Trachea midline. No JVD. CARDIOVASCULAR: Regular rate and rhythm. RESPIRATORY: No accessory muscle use. Lungs clear to auscultation. Breath sounds equal bilaterally. GASTROINTESTINAL: Abdomen soft, non-tender, nondistended. + BS. MUSCULOSKELETAL: Extremities without cyanosis, +2 edema RLE. RLE with ex-fix, pin sites clean. LLE with tamia wrap and wound vac in place. + pulses x4, MAEW. NEUROLOGICAL: Awake and alert. Normal speech. A/P Problem List: (1) Fracture of tibia, left, open (2) Fracture of tibia, right, open Assessment and Plan INJURIES: BILAT Open tib/fib fxs 11/07: Bilateral tib/fib I & D, bilateral external fixation 11/10: ORIF RIGHT tib/fib fx. I&D LEFT tib fx. Muscle flap. IM Nail LEFT tibia w wound vac placement 7/27: LEFT leg I&D PMHx: HLD, tobacco abuse, DM, HTN, CAD, CVA, GERD, tremor? Diet: ADA, tolerating, Glucerna shakes Pulmonary: IS Pain: [place], Toradol IV, IV Morphine, Neurontin dose increased. Activity: OOB. PT ordered (NWB BLE) GI: PO Protonix Bowel: Elke-colace, PRN Lactulose. LBM 11/15 DVT: SCDs, Lovenox 30 BID BILAT Open tib/fib fxs Orthopedics consulted 11/07: Bilateral tib/fib I & D, bilateral external fixation 11/10: ORIF RIGHT tib/fib fx. I&D LEFT tib fx. Muscle flap. IM Nail LEFT tibia w wound vac placement 11/13: LEFT leg I&D Pain control Pin care BID OOB- PT - W/C training NWB BLE ABX: Gentamicin, Ancef Ortho planning vac change on Thursday Insomnia Trazodone 100 HS Plan of care discussed with patient and RN at bedside. Case management consulted to assist with discharge planning. Remarks seen and examined with [employer]-agree with assessment and plan overall stable pain control DVT prophylaxis ortho-OR next week Problem Qualifiers (1) Fracture of tibia, left, open: Qualified Code: S82.255B - Type I or II open nondisplaced comminuted fracture of shaft of left tibia, initial encounter (2) Fracture of tibia, right, open: Qualified Code: S82.251C - Type III open displaced comminuted fracture of shaft of right tibia, initial encounter Alina Sosa Nov 16, 2016 12:59 Rebekah Massey MD Nov 16, 2016 17:01
[2016-11-16] MEDS: traZODone HCL 100 MG TAB PO SCH (21:53)
[2016-11-16] MEDS: MAGNESIUM HYDROXIDE SUSP 30 ML CUP PO SCH (21:53)
[2016-11-16] MEDS: MORPHINE SULFATE 15 MG CONTROLLED RELEASE TAB PO SCH (21:54)
[2016-11-16] MEDS: PRAVASTATIN SOD 80 MG TAB PO SCH (21:54)
[2016-11-17] MEDS: ceFAZolin 2 GM PREMIX 50 ML IV SCH ×3 (03:40→21:09)
[2016-11-17] MEDS: ACETAMINOPHEN/HYDROcodone 325 MG/10 MG TAB PO PRN ×3 (03:41→23:34)
[2016-11-17 04:00] VITALS: BP 116/64; PULSE 63; RESP 18; TEMP 98; O2SAT 95
[2016-11-17] MEDS: INSULIN ASPART SUPPLEMENTAL SCALE SQ SCH ×4 (06:37→21:00)
[2016-11-17 07:55] VITALS: BP 106/66; PULSE 62; RESP 18; TEMP 96.5; O2SAT 97
[2016-11-17] MEDS: MORPHINE SULFATE 8 MG/ML INJ IV PUSH PRN ×3 (08:25→15:09)
--- NOTE | 2016-11-17 08:29 | PD.ORT.PN ---
Subjective Subjective Remarks Pain controlled Objective Vitals Vital Signs Date Time Temp Pulse Resp B/P Pulse Ox O2 Delivery O2 Flow Rate FiO2 11/17/16 07:55 96.5 62 18 106/66 97 11/17/16 04:30 18 11/17/16 04:00 98.0 63 18 116/64 95 11/17/16 01:00 Room Air 11/16/16 23:40 97.5 60 17 95/61 96 11/16/16 22:54 17 11/16/16 22:00 98 Nasal Cannula 2.00 11/16/16 20:05 96.8 75 17 114/69 96 11/16/16 16:00 97.6 70 18 108/61 98 11/16/16 12:00 97.5 65 18 97/56 98 I/O 11/16/16 11/16/16 11/16/16 11/17/16 11/17/16 11/17/16 06:59 14:59 22:59 06:59 14:59 22:59 Intake Total 720 ml 840 ml 720 ml Output Total 600 ml 1750 ml 0 ml 1600 ml Balance 120 ml -910 ml 0 ml -880 ml Intake Oral 720 ml 840 ml 720 ml Output Urine Total 600 ml 1750 ml 1600 ml Drainage Total 0 ml 0 ml 0 ml # Bowel Movements 1 0 1 Result Diagram: 11/14/1612 11/14/16 06 Imaging Last 24 hours Impressions Pelvis X-Ray 11/07/16 1355 Signed Impressions: Service Date/Time: Monday, November 07, 2016 13:34 - CONCLUSION: No acute disease. Behzad Finch Jr., MD Chest X-Ray 11/07/16 1355 Signed Impressions: Service Date/Time: Monday, November 07, 2016 13:34 - CONCLUSION: No acute disease. Jac Gonzales MD Objective Remarks RLE: Dressings clean and dry. intact. NVI with full sensation and motor function. +exfix. pin sites. clean LLE: Wound VAC taken down. Soleus muscle flap debrided. Distal end of soleus is dusky but not necrosis. Medial portion of the soleus that had traumatic puncture with tibia had small portion with necrosis. Necrosed muscle is debrided with scalpel. New wound VAC application applied. Good seal. no sensation over medial foot. inability to dorsiflex or flex toes/foot. Assessment & Plan Assessment and Plan 1) Right Open Tibia Fracture s/p exfix revision with ORIF - POD 7 2) Left Open Tibia Fracture s/p Soleus muscle flap with IMN and removal of exfix - POD 7 -NWB BLE -pin care BID right leg -maintain vac left leg -vac settinmmHg, intermittent, 3:1 -Will plan on vac change bedside on - have Ioban, Xeroform and extra- large wound VAC sponge bedside Ronald Hatch Jr. Nov 17, 2016 08:29
[2016-11-17] MEDS: DOCUSATE SODIUM 50 MG/SENNA 8.6 MG TAB PO SCH ×2 (09:57→21:00)
[2016-11-17] MEDS: GABAPENTIN 300 MG CAP PO SCH ×3 (09:57→17:21)
[2016-11-17] MEDS: FERROUS SULFATE 325 MG (65 MG ELEMENTAL IRON) TAB PO SCH (09:57)
[2016-11-17] MEDS: PANTOPRAZOLE SOD 40 MG DELAYED RELEASE TAB PO SCH (09:57)
[2016-11-17] MEDS: CALCIUM/VITAMIN D 250 MG/125 U TAB PO SCH ×3 (09:57→17:21)
[2016-11-17] MEDS: ASPIRIN 81 MG CHEW TAB CHEW SCH (09:58)
[2016-11-17] MEDS: LISINOPRIL 10 MG TAB PO SCH (09:58)
[2016-11-17] MEDS: PROPRANOLOL HCL 80 MG TAB PO SCH ×2 (09:59→21:09)
[2016-11-17] MEDS: THIAMINE HCL 100 MG TAB PO SCH (09:59)
[2016-11-17] MEDS: LACTULOSE SYRUP 20 GM/30 ML CUP PO SCH (09:59)
[2016-11-17] MEDS: SODIUM CHLORIDE 0.9% FLUSH 10 ML FLUSH IV FLUSH SCH ×2 (10:00→21:09)
[2016-11-17] MEDS: MORPHINE SULFATE 15 MG CONTROLLED RELEASE TAB PO SCH ×2 (10:01→21:10)
[2016-11-17] MEDS: NEOMYCIN/POLYMYXIN/BACITRACIN OINT 15 GM TUBE TOPICAL SCH (10:03)
[2016-11-17 11:50] VITALS: BP 121/68; PULSE 67; RESP 18; TEMP 97.5; O2SAT 96
--- NOTE | 2016-11-17 12:00 | HHI.PR ---
Subjective Remarks Status post surgical procedure this morning. Patient's primary complaint is pain. No other complaints. Wound needs to be monitored further. Objective Vital Signs Date Time Temp Pulse Resp B/P Pulse Ox O2 Delivery O2 Flow Rate FiO2 11/17/16 08:30 18 11/17/16 07:55 96.5 62 18 106/66 97 11/17/16 04:30 18 11/17/16 04:00 98.0 63 18 116/64 95 11/17/16 01:00 Room Air 11/16/16 23:40 97.5 60 17 95/61 96 11/16/16 22:54 17 11/16/16 22:00 98 Nasal Cannula 2.00 11/16/16 20:05 96.8 75 17 114/69 96 11/16/16 16:00 97.6 70 18 108/61 98 11/16/16 12:00 97.5 65 18 97/56 98 I/O 11/16/16 11/16/16 11/16/16 11/17/16 11/17/16 11/17/16 07:00 15:00 23:00 07:00 15:00 23:00 Intake Total 720 ml 840 ml 720 ml Output Total 600 ml 1750 ml 0 ml 1600 ml Balance 120 ml -910 ml 0 ml -880 ml Intake Oral 720 ml 840 ml 720 ml Output Urine Total 600 ml 1750 ml 1600 ml Drainage Total 0 ml 0 ml 0 ml # Bowel Movements 1 0 1 Result Diagram: 11/14/1661111/14/16 0612 Objective Remarks GENERAL: NAD, A&Ox3 HEAD: Normocephalic. NECK: Supple, trachea midline. No lymphadenopathy. EYES: No scleral icterus. No injection or drainage. CARDIOVASCULAR: Regular rate and rhythm without murmurs, gallops, or rubs. RESPIRATORY: Breath sounds equal bilaterally. No accessory muscle use. GASTROINTESTINAL: Abdomen soft, non-tender, nondistended. MUSCULOSKELETAL: No cyanosis, or edema. Right lower leg bandaged with external fixation in place. Left lower and upper leg bandaged SKIN: Warm and dry. NEURO: No focal neurological deficitis. A/P Problem List: (1) Fracture of tibia, left, open ICD Code: S82.202B (2) Fracture of tibia, right, open ICD Code: S82.201B Assessment and Plan Assessment and Plan 61-year-old male admitted secondary to bilateral leg trauma after car fell on his legs while he was working on. Open fractures were present bilaterally. Now status post surgical repair. Further surgical intervention occurred today. Continue pain treatments. Continue monitoring given started MS Contin yesterday. Wound care and dressing changes. Bilateral open tibia-fibula fractures Left tibial plateau fracture Open fractures have been surgically repaired, right side has external fixation Determination of need for transfer to [facility] is in process Patient doing well postop here today Continue pain treatments Continue DVT prophylaxis Continue wound VAC as needed Orthopedics following Anemia Related to blood loss Stable since transfusion Follow hemoglobin and hematocrit Coronary artery disease Asymptomatic Continue beta gil, MARGIE inhibitor, and statin Hypertension Treatments being held Narcotics have a blood pressure depressing effect in this patient Diabetes mellitus type 2 Follow blood sugars Insulin sliding scale Diabetic diet Alcohol abuse Elevated LFTs No DTs when seen Cessation recommended Tobacco abuse Cessation recommended Chronic essential tremor Continue Inderal Discharge Planning Long-term plan is for discharge to home with wheelchair needed as patient rehabs over long-term period of time (3 months or more) Problem Qualifiers (1) Fracture of tibia, left, open: Qualified Code: S82.255B - Type I or II open nondisplaced comminuted fracture of shaft of left tibia, initial encounter (2) Fracture of tibia, right, open: Qualified Code: S82.251C - Type III open displaced comminuted fracture of shaft of right tibia, initial encounter Sony Pickard MD Nov 17, 2016 12:00
--- NOTE | 2016-11-17 12:02 | HHI.PR ---
Subjective Subjective Notes Painful S/P wound vac change this AM with Ortho Objective Vitals/I&O Vital Signs Date Time Temp Pulse Resp B/P Pulse Ox O2 Delivery O2 Flow Rate FiO2 11/17/16 08:30 18 11/17/16 07:55 96.5 62 106/66 97 11/17/16 01:00 Room Air 11/16/16 22:00 2.00 11/14/16 22:07 21 Radiology Last Impressions Tibia/Fibula X-Ray 11/10/16 0000 Signed Impressions: Service Date/Time: Thursday, November 10, 2016 10:07 - CONCLUSION: Anatomic Alignment following left tibial IM mariano. Arvind Flores MD FACR Ankle X-Ray 11/10/16 0000 Signed Impressions: Service Date/Time: Thursday, November 10, 2016 10:07 - CONCLUSION: Anatomic alignment following ORIF in an external fixator. Arvind Flores MD FACR Pelvis X-Ray 11/07/16 1355 Signed Impressions: Service Date/Time: Monday, November 07, 2016 13:34 - CONCLUSION: No acute disease. Behzad Finch Jr., MD Chest X-Ray 11/07/16 1355 Signed Impressions: Service Date/Time: Monday, November 07, 2016 13:34 - CONCLUSION: No acute disease. Jac Gonzales MD Narrative Exam GENERAL: 61 year old well-nourished male lying in bed. SKIN: Warm and dry. HEAD: Atraumatic. Normocephalic. NECK: Trachea midline. No JVD. CARDIOVASCULAR: Regular rate and rhythm. RESPIRATORY: No accessory muscle use. Lungs clear to auscultation. Breath sounds equal bilaterally. GASTROINTESTINAL: Abdomen soft, non-tender, nondistended. + BS. MUSCULOSKELETAL: Extremities without cyanosis, +2 edema RLE. RLE with ex-fix, pin sites clean. LLE with tamia wrap and wound vac in place. + pulses x4, MAEW. NEUROLOGICAL: Awake and alert. Normal speech. A/P Problem List: (1) Fracture of tibia, left, open (2) Fracture of tibia, right, open Assessment and Plan INJURIES: BILAT Open tib/fib fxs 11/07: Bilateral tib/fib I & D, bilateral external fixation 11/10: ORIF RIGHT tib/fib fx. I&D LEFT tib fx. Muscle flap. IM Nail LEFT tibia w wound vac placement 11/13: LEFT leg I&D PMHx: HLD, tobacco abuse, DM, HTN, CAD, CVA, GERD, tremor? Diet: ADA, tolerating, Glucerna shakes Pulmonary: IS Pain: [place], Toradol IV, IV Morphine, Neurontin dose increased. Activity: OOB. PT ordered (NWB BLE) GI: PO Protonix Bowel: Elke-colace, PRN Lactulose. LBM 11/17 DVT: SCDs, Lovenox 30 BID BILAT Open tib/fib fxs Orthopedics consulted 11/07: Bilateral tib/fib I & D, bilateral external fixation 11/10: ORIF RIGHT tib/fib fx. I&D LEFT tib fx. Muscle flap. IM Nail LEFT tibia w wound vac placement 11/13: LEFT leg I&D Pain control Pin care BID OOB- PT - W/C training NWB BLE ABX: Gentamicin, Ancef Ortho planning vac change on Insomnia Trazodone 100 HS Plan of care discussed with patient at bedside. Case management consulted to assist with discharge planning. Problem Qualifiers (1) Fracture of tibia, left, open: Qualified Code: S82.255B - Type I or II open nondisplaced comminuted fracture of shaft of left tibia, initial encounter (2) Fracture of tibia, right, open: Qualified Code: S82.251C - Type III open displaced comminuted fracture of shaft of right tibia, initial encounter Alina Sosa Nov 17, 2016 12:02
[2016-11-17] MEDS: LACTATED RINGER'S 1000 ML INJ 1,000 ML IV SCH ×2 (12:14→22:42)
[2016-11-17] MEDS: SODIUM CHLORIDE 0.9% FLUSH 10 ML FLUSH IV FLUSH PRN (15:09)
[2016-11-17 16:00] VITALS: BP 129/65; PULSE 67; RESP 18; TEMP 97.8; O2SAT 96
[2016-11-17 19:00] VITALS: BP 129/73; PULSE 68; RESP 17; TEMP 99.1; O2SAT 95
[2016-11-17] MEDS: traZODone HCL 100 MG TAB PO SCH (21:00)
[2016-11-17] MEDS: PRAVASTATIN SOD 80 MG TAB PO SCH (21:09)
[2016-11-17] MEDS: MAGNESIUM HYDROXIDE SUSP 30 ML CUP PO SCH (21:10)
[2016-11-18] VITALS: BP 109/67; PULSE 69; RESP 17; TEMP 98.6; O2SAT 95
[2016-11-18] MEDS: ACETAMINOPHEN/HYDROcodone 325 MG/10 MG TAB PO PRN (04:34)
[2016-11-18] MEDS: ceFAZolin 2 GM PREMIX 50 ML IV SCH ×3 (04:34→20:46)
[2016-11-18] MEDS: INSULIN ASPART SUPPLEMENTAL SCALE SQ SCH ×4 (05:53→20:45)
[2016-11-18 08:00] VITALS: BP 125/70; PULSE 60; RESP 18; TEMP 97.7; O2SAT 98
[2016-11-18 08:19] LABS: BICARBONATE 26.5 MEQ/L (21.0-32.0); POTASSIUM 5.2 MEQ/L (3.5-5.1)
[2016-11-18 08:31] LABS: HEMATOCRIT 36.8 % (39.0-51.0); MEAN CELL VOLUME 96.6 FL (80.0-100.0); MEAN CORPUSCULAR HEMOGLOBIN 31.5 PG (27.0-34.0); MEAN CORPUSCULAR HGB CONC 32.6 % (32.0-36.0); PLATELET COUNT 532 TH/MM3 (150-450); RED BLOOD COUNT 3.81 MIL/MM3 (4.50-5.90); RED CELL DISTRIBUTION WIDTH 14.1 % (11.6-17.2); REVIEW FLAG FINAL; WHITE BLOOD COUNT 16.8 TH/MM3 (4.0-11.0)
[2016-11-18] MEDS: LACTATED RINGER'S 1000 ML INJ 1,000 ML IV SCH (08:42)
[2016-11-18] MEDS: ASPIRIN 81 MG CHEW TAB CHEW SCH (09:58)
[2016-11-18] MEDS: GABAPENTIN 300 MG CAP PO SCH ×3 (09:58→17:23)
[2016-11-18] MEDS: PANTOPRAZOLE SOD 40 MG DELAYED RELEASE TAB PO SCH (09:58)
[2016-11-18] MEDS: CALCIUM/VITAMIN D 250 MG/125 U TAB PO SCH ×3 (09:59→17:23)
[2016-11-18] MEDS: THIAMINE HCL 100 MG TAB PO SCH (09:59)
[2016-11-18] MEDS: LISINOPRIL 10 MG TAB PO SCH (09:59)
[2016-11-18] MEDS: MORPHINE SULFATE 15 MG CONTROLLED RELEASE TAB PO SCH ×2 (10:00→20:44)
[2016-11-18] MEDS: FERROUS SULFATE 325 MG (65 MG ELEMENTAL IRON) TAB PO SCH (10:00)
[2016-11-18] MEDS: NEOMYCIN/POLYMYXIN/BACITRACIN OINT 15 GM TUBE TOPICAL SCH (10:00)
[2016-11-18] MEDS: PROPRANOLOL HCL 80 MG TAB PO SCH ×2 (10:01→20:45)
[2016-11-18] MEDS: SODIUM CHLORIDE 0.9% FLUSH 10 ML FLUSH IV FLUSH SCH ×2 (10:01→20:45)
[2016-11-18] MEDS: LACTULOSE SYRUP 20 GM/30 ML CUP PO SCH (10:02)
[2016-11-18] MEDS: DOCUSATE SODIUM 50 MG/SENNA 8.6 MG TAB PO SCH ×2 (10:06→20:45)
[2016-11-18] MEDS: SODIUM CHLORIDE 0.9% FLUSH 10 ML FLUSH IV FLUSH PRN (11:14)
[2016-11-18 12:00] VITALS: BP 99/65; PULSE 57; RESP 18; TEMP 96.8; O2SAT 100
--- NOTE | 2016-11-18 13:00 | PD.ORT.PN ---
Subjective Subjective Remarks POD 8 s/p IMN left tibia with soleus muscle flap POD 8 s/p ORIF with revision exfix right tibia POD 1 s/p vac change left leg doing well. pain controlled Objective Vitals Vital Signs Date Time Temp Pulse Resp B/P Pulse Ox O2 Delivery O2 Flow Rate FiO2 11/18/16 08:00 97.7 60 18 125/70 98 11/18/16 00:00 98.6 69 17 109/67 95 11/17/16 19:00 99.1 68 17 129/73 95 11/17/16 18:58 Room Air 11/17/16 16:00 97.8 67 18 129/65 96 I/O 11/17/16 11/17/16 11/17/16 11/18/16 11/18/16 11/18/16 07:00 15:00 23:00 07:00 15:00 23:00 Intake Total 3403 ml 480 ml 300 ml Output Total 0 ml 3300 ml 1000 ml 800 ml Balance 0 ml 103 ml -520 ml -500 ml Intake Oral 1680 ml 480 ml 300 ml IV Total 1723 ml Output Urine Total 3300 ml 1000 ml 800 ml Drainage Total 0 ml 0 ml 0 ml # Voids 2 # Bowel Movements 2 0 0 Result Diagram: 11/18/16 0653 11/18/16 0653 Imaging Last 24 hours Impressions Pelvis X-Ray 11/07/16 1355 Signed Impressions: Service Date/Time: Monday, November 07, 2016 13:34 - CONCLUSION: No acute disease. Behzad Finch Jr., MD Chest X-Ray 11/07/16 1355 Signed Impressions: Service Date/Time: Monday, November 07, 2016 13:34 - CONCLUSION: No acute disease. Jac Gonzales MD Objective Remarks RLE: Dressings clean and dry. intact. NVI with full sensation and motor function. +exfix. pin sites. clean LLE: Wound VAC taken down. Soleus muscle flap debrided. Distal end of soleus is dusky but not necrosis. Medial portion of the soleus that had traumatic puncture with tibia had small portion with necrosis. Necrosed muscle is debrided with scalpel. New wound VAC application applied. Good seal. no sensation over medial foot. inability to dorsiflex or flex toes/foot. Assessment & Plan Assessment and Plan 1) Right Open Tibia Fracture s/p exfix revision with ORIF - POD 8 2) Left Open Tibia Fracture s/p Soleus muscle flap with IMN and removal of exfix - POD 8 -NWB BLE -pin care BID right leg -maintain vac left leg -vac settinmmHg, intermittent, 3:1 -Will plan on vac change bedside on - have Ioban, Xeroform and extra- large wound VAC sponge bedside Jef Steve Nov 18, 2016 13:00
--- NOTE | 2016-11-18 14:40 | HHI.PR ---
Subjective Subjective Notes Painful, states he just got back to bed with PT Objective Vitals/I&O Vital Signs Date Time Temp Pulse Resp B/P Pulse Ox O2 Delivery O2 Flow Rate FiO2 11/18/16 12:00 96.8 57 18 99/65 100 11/17/16 18:58 Room Air 11/16/16 22:00 2.00 11/14/16 22:07 21 Labs Laboratory Tests Test 11/18/16 06:53 White Blood Count 16.8 Red Blood Count 3.81 Hemoglobin 12.0 Hematocrit 36.8 Mean Corpuscular Volume 96.6 Mean Corpuscular Hemoglobin 31.5 Mean Corpuscular Hemoglobin 32.6 Concent Red Cell Distribution Width 14.1 Platelet Count 532 Mean Platelet Volume 7.7 Sodium Level 129 Potassium Level 5.2 Chloride Level 93 Carbon Dioxide Level 26.5 Anion Gap 10 Blood Urea Nitrogen 17 Creatinine 0.93 Estimat Glomerular Filtration 83 Rate Random Glucose 121 Calcium Level 9.5 Radiology Last Impressions Tibia/Fibula X-Ray 11/10/16 0000 Signed Impressions: Service Date/Time: Thursday, November 10, 2016 10:07 - CONCLUSION: Anatomic Alignment following left tibial IM mariano. Arvind Flores MD FACR Ankle X-Ray 11/10/16 0000 Signed Impressions: Service Date/Time: Thursday, November 10, 2016 10:07 - CONCLUSION: Anatomic alignment following ORIF in an external fixator. Arvind Flores MD FACR Pelvis X-Ray 11/07/16 1355 Signed Impressions: Service Date/Time: Monday, November 07, 2016 13:34 - CONCLUSION: No acute disease. Behzad Finch Jr., MD Chest X-Ray 11/07/16 1355 Signed Impressions: Service Date/Time: Monday, November 07, 2016 13:34 - CONCLUSION: No acute disease. Jac Gonzales MD Narrative Exam GENERAL: 61 year old well-nourished male lying in bed. SKIN: Warm and dry. HEAD: Atraumatic. Normocephalic. NECK: Trachea midline. No JVD. CARDIOVASCULAR: Regular rate and rhythm. RESPIRATORY: No accessory muscle use. Lungs clear to auscultation. Breath sounds equal bilaterally. GASTROINTESTINAL: Abdomen soft, non-tender, nondistended. + BS. MUSCULOSKELETAL: Extremities without cyanosis, +2 edema RLE. RLE with ex-fix, pin sites clean. LLE with tamia wrap and wound vac in place. + pulses x4, MAEW. NEUROLOGICAL: Awake and alert. Normal speech. A/P Problem List: (1) Fracture of tibia, left, open (2) Fracture of tibia, right, open Assessment and Plan INJURIES: BILAT Open tib/fib fxs 11/07: Bilateral tib/fib I & D, bilateral external fixation 11/10: ORIF RIGHT tib/fib fx. I&D LEFT tib fx. Muscle flap. IM Nail LEFT tibia w wound vac placement 11/13: LEFT leg I&D PMHx: HLD, tobacco abuse, DM, HTN, CAD, CVA, GERD Diet: ADA, tolerating, Glucerna shakes Pulmonary: IS Pain: [place], Toradol IV, IV Morphine, Neurontin dose increased. Activity: OOB. PT ordered (NWB BLE) GI: PO Protonix Bowel: Elke-colace, PRN Lactulose. LBM 11/17 DVT: SCDs, Lovenox 30 BID BILAT Open tib/fib fxs Orthopedics consulted 11/07: Bilateral tib/fib I & D, bilateral external fixation 11/10: ORIF RIGHT tib/fib fx. I&D LEFT tib fx. Muscle flap. IM Nail LEFT tibia w wound vac placement 11/13: LEFT leg I&D Pain control Pin care BID OOB- PT - W/C training NWB BLE ABX: Gentamicin, Ancef Ortho planning vac change on Th Insomnia Trazodone 100 HS Plan of care discussed with patient at bedside. Case management consulted to assist with discharge planning. Problem Qualifiers (1) Fracture of tibia, left, open: Qualified Code: S82.255B - Type I or II open nondisplaced comminuted fracture of shaft of left tibia, initial encounter (2) Fracture of tibia, right, open: Qualified Code: S82.251C - Type III open displaced comminuted fracture of shaft of right tibia, initial encounter Alina Sosa Nov 18, 2016 14:40
[2016-11-18 16:00] VITALS: BP 92/51; PULSE 58; RESP 18; TEMP 97.1; O2SAT 97
--- NOTE | 2016-11-18 16:31 | HHI.PR ---
Subjective Remarks patient c/o pain in lower extremities bp noted to be low rn states patient is taking lots of water wbc is trending up sodium trended down Objective Vitals Vital Signs Date Time Temp Pulse Resp B/P Pulse Ox O2 Delivery O2 Flow Rate FiO2 11/18/16 12:00 96.8 57 18 99/65 100 11/18/16 08:00 97.7 60 18 125/70 98 11/18/16 00:00 98.6 69 17 109/67 95 11/17/16 19:00 99.1 68 17 129/73 95 11/17/16 18:58 Room Air I/O 11/17/16 11/17/16 11/17/16 11/18/16 11/18/16 11/18/16 07:00 15:00 23:00 07:00 15:00 23:00 Intake Total 3403 ml 480 ml 300 ml Output Total 0 ml 3300 ml 1000 ml 800 ml 0 ml Balance 0 ml 103 ml -520 ml -500 ml 0 ml Intake Oral 1680 ml 480 ml 300 ml IV Total 1723 ml Output Urine Total 3300 ml 1000 ml 800 ml Drainage Total 0 ml 0 ml 0 ml 0 ml # Voids 2 # Bowel Movements 2 0 0 Result Diagram: 11/18/16 0653 11/18/16 0653 Imaging Last Impressions Tibia/Fibula X-Ray 11/10/16 0000 Signed Impressions: Service Date/Time: Thursday, November 10, 2016 10:07 - CONCLUSION: Anatomic Alignment following left tibial IM mariano. Arvind Flores MD FACR Ankle X-Ray 11/10/16 0000 Signed Impressions: Service Date/Time: Thursday, November 10, 2016 10:07 - CONCLUSION: Anatomic alignment following ORIF in an external fixator. Arvind Flores MD FACR Pelvis X-Ray 11/07/16 1355 Signed Impressions: Service Date/Time: Monday, November 07, 2016 13:34 - CONCLUSION: No acute disease. Behzad Finch Jr., MD Chest X-Ray 11/07/16 1355 Signed Impressions: Service Date/Time: Monday, November 07, 2016 13:34 - CONCLUSION: No acute disease. Jac Gonzales MD Objective Remarks GENERAL: NAD, A&Ox3 HEAD: Normocephalic. NECK: Supple, trachea midline. No lymphadenopathy. EYES: No scleral icterus. No injection or drainage. CARDIOVASCULAR: Regular rate and rhythm without murmurs, gallops, or rubs. RESPIRATORY: Breath sounds equal bilaterally. No accessory muscle use. GASTROINTESTINAL: Abdomen soft, non-tender, nondistended. MUSCULOSKELETAL: No cyanosis, or edema. Right lower leg bandaged with external fixation in place. Left lower and upper leg bandaged SKIN: Warm and dry. NEURO: No focal neurological deficitis. Procedures 1.s/p I&D with exfix application bilateral tibias s/p wound vac application left tibia 2.With the assistance of RN, under sterile technique the avulsed skin of the right middle finger was clipped. No bleeding noted. Patient gave consent 3.Open reduction internal fixation of right distal tibia and fibula fractures Nonoperative treatment left tibial plateau fracture Irrigation and debridement of left tibia shaft fracture, removal external fixation, soleus muscle rotational flap, intramedullary nail fixation left tibia , application of wound VAC dressing Medications and IVs Current Medications Medications (Trade) Dose Ordered Sig/Milagro Route Start Time Stop Time Status Last Admin (NS Flush) 2 ml UNSCH PRN IV FLUSH 11/07/16 14:30 11/18/16 11:14 (NS Flush) 2 ml BID IV FLUSH 11/07/16 21:00 11/18/16 20:45 (Zofran Inj) 4 mg Q6H PRN IV 11/07/16 14:30 11/07/16 21:36 (Narcan Inj) 0.4 mg UNSCH PRN IV 11/07/16 14:30 (Tylenol) 650 mg Q4H PRN PO 11/08/16 08:15 (Tums Chew) 1,000 mg TID PRN CHEW 11/08/16 08:15 11/15/16 14:16 (D50w (Vial) Inj) 50 ml UNSCH PRN IV 11/08/16 08:15 (Glucagon Inj) 1 mg UNSCH PRN OTHER 11/08/16 08:15 (Vasotec Inj) 1.25 mg Q6H PRN IV 11/08/16 08:15 (Catapres) 0.1 mg Q6H PRN PO 11/08/16 08:15 (Aspirin Chew) 81 mg DAILY CHEW 11/08/16 12:45 11/18/16 09:58 (Ferrous Sulfate) 325 mg DAILY PO 11/08/16 12:45 11/18/16 10:00 (Prinivil) 25 mg DAILY PO 11/08/16 12:45 Hold 11/18/16 09:59 (Nitrostat Sl) 0.4 mg Q6HR PRN SL 11/08/16 12:45 (Protonix) 40 mg DAILY PO 11/08/16 12:45 11/18/16 09:58 (Pravachol) 80 mg HS PO 11/08/16 21:00 11/18/16 20:46 (Inderal) 80 mg Q12HR PO 11/08/16 21:00 11/18/16 10:01 (Pill Splitter) 1 ea UNSCH PRN OTHER 11/08/16 12:45 (Elke-Colace) 1 tab BID PO 11/08/16 12:45 11/18/16 10:06 (Vitamin B1) 100 mg DAILY PO 11/09/16 09:00 11/18/16 09:59 (Romazicon Inj) 0.2 mg Q1M PRN IV PUSH 11/08/16 13:00 (Ativan) 1 mg Q4H PRN PO 11/08/16 13:00 (Ativan Inj) 1 mg Q4H PRN IV PUSH 11/08/16 13:00 (Ativan) 2 mg Q2H PRN PO 11/08/16 13:00 (Ativan Inj) 2 mg Q2H PRN IV PUSH 11/08/16 13:00 (Ativan Inj) 2 mg Q1H PRN IV PUSH 11/08/16 13:00 (Ativan Inj) 2 mg Q15M PRN IV PUSH 11/08/16 13:00 (Haldol Inj) 2 mg Q15M PRN IM 11/08/16 13:00 (Neosporin Oint) 1 applic DAILY TOPICAL 11/10/16 09:00 11/15/16 08:31 (Lactulose Liq) 30 ml DAILY PO 11/10/16 09:00 11/18/16 10:02 (Milk Of Magnesia Liq) 30 ml HS PO 11/10/16 21:00 11/17/16 21:10 (Lovenox Inj) 30 mg Q12H SQ 11/11/16 00:00 Hold 11/11/16 23:13 Calcium/Vitamin D 250 mg 250 mg TID PO 11/10/16 13:00 11/18/16 17:23 (Ancef 2 Gm Premix) 50 ml @ 100 mls/hr Q8H IV 11/13/16 12:00 11/20/16 11:59 11/18/16 20:46 (Ambien) 5 mg HS PRN PO 11/14/16 11:00 (Desyrel) 100 mg HS PO 11/14/16 21:00 11/17/16 21:00 (Neurontin) 600 mg TID PO 11/16/16 13:00 11/18/16 17:23 (Oramorph Sr) 30 mg Q12HR PO 11/18/16 21:00 11/18/16 20:44 (Morphine Inj) 6 mg Q4H PRN IV PUSH 11/18/16 16:45 Morphine Sulfate 3 mg 3 mg Q3H PRN IV PUSH 11/18/16 16:45 (NS 1000 ml Inj) 1,000 ml @ 125 mls/hr Q8H IV 11/19/16 00:15 UNV Urinary Catheter: No A/P Problem List: (1) Fracture of tibia, left, open ICD Code: S82.202B Status: Acute (2) Fracture of tibia, right, open ICD Code: S82.201B Status: Acute Assessment and Plan 61-year-old male admitted secondary to bilateral leg trauma after car fell on his legs while he was working on. Open fractures were present bilaterally. Bilateral open tibia-fibula fractures Left tibial plateau fracture Open fractures have been surgically repaired, right side has external fixation Determination of need for transfer to [facility] is in process Patient doing well postop here today Continue pain treatments Continue DVT prophylaxis Continue wound VAC as needed Orthopedics following 11/18 Pain uncontrolled, Increase dose of Oramorph from 15 mg BID to 30 mg po BID. Will DC oral percocet until pain is controlled and keep on IV morphine only. Anemia Related to blood loss Stable since transfusion Follow hemoglobin and hematocrit Coronary artery disease Asymptomatic Continue beta gil, MARGIE inhibitor, and statin 11/18 Will hold BB and MARGIE due to hypotension. Hypertension Treatments being held Narcotics have a blood pressure depressing effect in this patient Diabetes mellitus type 2 Follow blood sugars Insulin sliding scale Diabetic diet Alcohol abuse Elevated LFTs No DTs when seen Cessation recommended Tobacco abuse Cessation recommended Chronic essential tremor Hold inderal for now due to hypotension Hypotension Will give !liter normal saline bolus x1, DC LR and start normal saline. Bolus with NS prn Hyponatremia check serum and urine osmolality. DC Lactated Ringers and start on NS. Will fluid restrict depending on osmolality results. Will monitor BMP Mild Hyperkalemia Monitor BMP. Leukocytosis Check urinalysis. No fevers. Likely reactive to stres due to hypotension. Discharge Planning GI prophylaxis: PPI No chemoprophylaxis due to blood loss Problem Qualifiers (1) Fracture of tibia, left, open: Qualified Code: S82.255B - Type I or II open nondisplaced comminuted fracture of shaft of left tibia, initial encounter (2) Fracture of tibia, right, open: Qualified Code: S82.251C - Type III open displaced comminuted fracture of shaft of right tibia, initial encounter Davis Tao MD Nov 18, 2016 16:31
[2016-11-18] MEDS ORDERED: SODIUM CHLOR 0.9% 1000 ML INJ 1,000 ML IV ONE (16:45)
[2016-11-18] MEDS ORDERED: MORPHINE SULFATE 8 MG/ML INJ IV PUSH PRN (16:45)
[2016-11-18 20:30] VITALS: BP 92/55; PULSE 79; RESP 18; TEMP 97.6; O2SAT 96
[2016-11-18] MEDS: traZODone HCL 100 MG TAB PO SCH (20:45)
[2016-11-18] MEDS: MAGNESIUM HYDROXIDE SUSP 30 ML CUP PO SCH (20:45)
[2016-11-18] MEDS: PRAVASTATIN SOD 80 MG TAB PO SCH (20:46)
[2016-11-18 22:39] LABS: BLOOD, URINE NEG (NEG); COMMENT (UR) CULT NOT INDICATED; CULTURE IF INDICATED CULT NOT INDICATED; GLUCOSE,URINE NEG (NEG); KETONE, URINE NEG (NEG); MUCUS URINE FEW /lpf (OCC); NITRITE,URINE NEG (NEG); URINE COLOR YELLOW (YELLW/STRAW)
[2016-11-19 00:15] VITALS: BP 98/58; PULSE 62; RESP 18; TEMP 97.4; O2SAT 95
[2016-11-19] MEDS ORDERED: SODIUM CHLORID 0.9% 500 ML INJ 500 ML IV ONE (00:15)
[2016-11-19] MEDS: MORPHINE SULFATE 4 MG/ML INJ IV PUSH PRN ×2 (02:18→16:36)
[2016-11-19] MEDS: SODIUM CHLOR 0.9% 1000 ML INJ 1,000 ML IV SCH ×3 (02:20→16:15)
[2016-11-19 03:02] LABS: AUTOMATED NEUTROPHIL # 14.1 TH/MM3 (1.8-7.7); BASOPHIL # 0.1 TH/MM3 (0-0.2); BASOPHIL % 0.6 % (0.0-2.0); EOSINOPHIL # 0.2 TH/MM3 (0-0.4); EOSINOPHIL % 0.9 % (0.0-4.0); HEMATOCRIT 34.5 % (39.0-51.0); LYMPH % 7.7 % (9.0-44.0); LYMPHOCYTE # 1.3 TH/MM3 (1.0-4.8); MEAN CELL VOLUME 96.2 FL (80.0-100.0); MEAN CORPUSCULAR HEMOGLOBIN 31.6 PG (27.0-34.0); MEAN CORPUSCULAR HGB CONC 32.8 % (32.0-36.0); MONO % 9.8 % (0.0-8.0); PLATELET COUNT 475 TH/MM3 (150-450); RED BLOOD COUNT 3.59 MIL/MM3 (4.50-5.90); RED CELL DISTRIBUTION WIDTH 14.2 % (11.6-17.2); WHITE BLOOD COUNT 17.5 TH/MM3 (4.0-11.0)
[2016-11-19 03:07] LABS: HEMO FLAGS AUTO DIFF
[2016-11-19 03:26] LABS: ALT (GPT) 32 U/L (12-78); ANION GAP 7 MEQ/L (5-15); AST (GOT) 64 U/L (15-37); BICARBONATE 28.7 MEQ/L (21.0-32.0); BLOOD UREA NITROGEN 23 MG/DL (7-18); CHLORIDE 96 MEQ/L (98-107); GLOMERULAR FILTRATION RATE 73 ML/MIN (>89); MAGNESIUM 2.6 MG/DL (1.5-2.5); POTASSIUM 5.6 MEQ/L (3.5-5.1); SODIUM (NA) 132 MEQ/L (136-145)
[2016-11-19 03:29] LABS: ALKALINE PHOSPHATASE 87 U/L (45-117); TOTAL BILIRUBIN ADULT 0.4 MG/DL (0.2-1.0)
[2016-11-19] MEDS: ceFAZolin 2 GM PREMIX 50 ML IV SCH ×3 (04:22→20:52)
[2016-11-19] MEDS: INSULIN ASPART SUPPLEMENTAL SCALE SQ SCH ×4 (05:59→20:52)
[2016-11-19 08:02] VITALS: BP 112/64; PULSE 63; RESP 17; TEMP 95.7; O2SAT 97
[2016-11-19 08:11] LABS: BANDS 5 % (0-6); EOSINOPHILS 2 % (0-4); METAMYELOCYTES 1 % (0-1); MYELOCYTES 1 % (0-0); NEUTROPHIL # MANUAL DIFF 14.2 TH/MM3 (1.8-7.7); PLATELET ESTIMATE SMEAR HIGH (NORMAL); PLATELET MORPHOLOGY NORMAL (NORMAL); POLYS (SEG NEUTROPHILS) 74 % (16-70); SCAN/DIFF FINAL DIFF MANUAL; WBC DIFF SAMPLE 100
[2016-11-19] MEDS: DOCUSATE SODIUM 50 MG/SENNA 8.6 MG TAB PO SCH ×3 (09:00→20:54)
[2016-11-19] MEDS: SODIUM CHLORIDE 0.9% FLUSH 10 ML FLUSH IV FLUSH SCH ×2 (09:00→20:52)
[2016-11-19] MEDS: LACTULOSE SYRUP 20 GM/30 ML CUP PO SCH (09:00)
[2016-11-19] MEDS: NEOMYCIN/POLYMYXIN/BACITRACIN OINT 15 GM TUBE TOPICAL SCH (09:00)
[2016-11-19] MEDS: FERROUS SULFATE 325 MG (65 MG ELEMENTAL IRON) TAB PO SCH (09:25)
[2016-11-19] MEDS: CALCIUM/VITAMIN D 250 MG/125 U TAB PO SCH ×3 (09:25→16:41)
[2016-11-19] MEDS: GABAPENTIN 300 MG CAP PO SCH ×3 (09:25→16:41)
[2016-11-19] MEDS: THIAMINE HCL 100 MG TAB PO SCH (09:25)
[2016-11-19] MEDS: MORPHINE SULFATE 15 MG CONTROLLED RELEASE TAB PO SCH ×2 (09:26→20:51)
[2016-11-19] MEDS: ASPIRIN 81 MG CHEW TAB CHEW SCH (09:26)
[2016-11-19] MEDS: PANTOPRAZOLE SOD 40 MG DELAYED RELEASE TAB PO SCH (09:26)
--- NOTE | 2016-11-19 11:13 | PD.ORT.PN ---
Subjective Subjective Remarks POD 9 s/p IMN left tibia with soleus muscle flap POD 9 s/p ORIF with revision exfix right tibia POD 2 s/p vac change left leg at bedside doing well. pain controlled. no changes Objective Vitals Vital Signs Date Time Temp Pulse Resp B/P Pulse Ox O2 Delivery O2 Flow Rate FiO2 11/19/16 08:02 95.7 63 17 112/64 97 11/19/16 00:15 97.4 62 18 98/58 95 11/18/16 20:30 97.6 79 18 92/55 96 11/18/16 16:00 97.1 58 18 92/51 97 11/18/16 12:00 96.8 57 18 99/65 100 I/O 11/18/16 11/18/16 11/18/16 11/19/16 11/19/16 11/19/16 07:00 15:00 23:00 07:00 15:00 23:00 Intake Total 300 ml 960 ml 240 ml 1340 ml Output Total 800 ml 0 ml 400 ml 1400 ml Balance -500 ml 960 ml -160 ml -60 ml Intake Oral 300 ml 960 ml 240 ml 480 ml IV Total 860 ml Output Urine Total 800 ml 400 ml 1400 ml Drainage Total 0 ml 0 ml 0 ml # Voids 3 # Bowel Movements 0 2 0 1 Result Diagram: 11/19/16 0220 11/19/16 0220 Imaging Last 24 hours Impressions Pelvis X-Ray 11/07/16 1355 Signed Impressions: Service Date/Time: Monday, November 07, 2016 13:34 - CONCLUSION: No acute disease. Behzad Finch Jr., MD Chest X-Ray 11/07/16 1355 Signed Impressions: Service Date/Time: Monday, November 07, 2016 13:34 - CONCLUSION: No acute disease. Jac Gonzales MD Objective Remarks RLE: Dressings clean and dry. intact. NVI with full sensation and motor function. +exfix. pin sites. clean LLE: Wound VAC taken down. Soleus muscle flap debrided. Distal end of soleus is dusky but not necrosis. Medial portion of the soleus that had traumatic puncture with tibia had small portion with necrosis. Necrosed muscle is debrided with scalpel. New wound VAC application applied. Good seal. no sensation over medial foot. inability to dorsiflex or flex toes/foot. Assessment & Plan Assessment and Plan 1) Right Open Tibia Fracture s/p exfix revision with ORIF - POD 9 2) Left Open Tibia Fracture s/p Soleus muscle flap with IMN and removal of exfix - POD 9 -NWB BLE -pin care BID right leg -maintain vac left leg -vac settinmmHg, intermittent, 3:1 -Will plan on vac change bedside on - have Ioban, Xeroform and extra- large wound VAC sponge bedside Jef Steve Nov 19, 2016 11:12
[2016-11-19 11:19] VITALS: BP 115/63; PULSE 67; RESP 17; TEMP 97.6; O2SAT 97
[2016-11-19 14:32] LABS: BICARBONATE 26.6 MEQ/L (21.0-32.0); POTASSIUM 5.1 MEQ/L (3.5-5.1)
[2016-11-19 16:00] VITALS: BP 108/64; PULSE 69; RESP 17; TEMP 97.4; O2SAT 98
--- NOTE | 2016-11-19 18:59 | HHI.PR ---
Subjective Remarks late entry - patient seen at 11:20 am states pain is better wbc trending up bp low overnight Objective Vitals Vital Signs Date Time Temp Pulse Resp B/P Pulse Ox O2 Delivery O2 Flow Rate FiO2 11/19/16 16:00 97.4 69 17 108/64 98 11/19/16 11:19 97.6 67 17 115/63 97 11/19/16 09:20 Room Air 11/19/16 08:02 95.7 63 17 112/64 97 11/19/16 00:15 97.4 62 18 98/58 95 11/18/16 20:30 97.6 79 18 92/55 96 I/O 11/18/16 11/18/16 11/18/16 11/19/16 11/19/16 11/19/16 06:59 14:59 22:59 06:59 14:59 22:59 Intake Total 300 ml 960 ml 240 ml 1340 ml 1200 ml Output Total 800 ml 0 ml 400 ml 1400 ml 2375 ml Balance -500 ml 960 ml -160 ml -60 ml -1175 ml Intake Oral 300 ml 960 ml 240 ml 480 ml 1200 ml IV Total 860 ml Output Urine Total 800 ml 400 ml 1400 ml 2375 ml Drainage Total 0 ml 0 ml 0 ml # Voids 3 6 # Bowel Movements 0 2 0 1 0 Result Diagram: 11/19/16 0220 11/19/16 1340 Imaging Last Impressions Tibia/Fibula X-Ray 11/10/16 0000 Signed Impressions: Service Date/Time: Thursday, November 10, 2016 10:07 - CONCLUSION: Anatomic Alignment following left tibial IM mariano. Arvind Flores MD FACR Ankle X-Ray 11/10/16 0000 Signed Impressions: Service Date/Time: Thursday, November 10, 2016 10:07 - CONCLUSION: Anatomic alignment following ORIF in an external fixator. Arvind Flores MD FACR Pelvis X-Ray 11/07/16 1355 Signed Impressions: Service Date/Time: Monday, November 07, 2016 13:34 - CONCLUSION: No acute disease. Behzad Finch Jr., MD Chest X-Ray 11/07/16 1355 Signed Impressions: Service Date/Time: Monday, November 07, 2016 13:34 - CONCLUSION: No acute disease. Jac Gonzales MD Objective Remarks GENERAL: NAD, A&Ox3 HEAD: Normocephalic. NECK: Supple, trachea midline. No lymphadenopathy. EYES: No scleral icterus. No injection or drainage. CARDIOVASCULAR: Regular rate and rhythm without murmurs, gallops, or rubs. RESPIRATORY: Breath sounds equal bilaterally. No accessory muscle use. GASTROINTESTINAL: Abdomen soft, non-tender, nondistended. MUSCULOSKELETAL: No cyanosis, or edema. Right lower leg bandaged with external fixation in place. Left lower and upper leg bandaged SKIN: Warm and dry. NEURO: No focal neurological deficitis. Procedures 1.s/p I&D with exfix application bilateral tibias s/p wound vac application left tibia 2.With the assistance of RN, under sterile technique the avulsed skin of the right middle finger was clipped. No bleeding noted. Patient gave consent 3.Open reduction internal fixation of right distal tibia and fibula fractures Nonoperative treatment left tibial plateau fracture Irrigation and debridement of left tibia shaft fracture, removal external fixation, soleus muscle rotational flap, intramedullary nail fixation left tibia , application of wound VAC dressing Medications and IVs Current Medications Medications (Trade) Dose Ordered Sig/Milagro Route Start Time Stop Time Status Last Admin (NS Flush) 2 ml UNSCH PRN IV FLUSH 11/07/16 14:30 11/18/16 11:14 (NS Flush) 2 ml BID IV FLUSH 11/07/16 21:00 11/19/16 20:52 (Zofran Inj) 4 mg Q6H PRN IV 11/07/16 14:30 11/07/16 21:36 (Narcan Inj) 0.4 mg UNSCH PRN IV 11/07/16 14:30 (Tylenol) 650 mg Q4H PRN PO 11/08/16 08:15 (Tums Chew) 1,000 mg TID PRN CHEW 11/08/16 08:15 11/15/16 14:16 (D50w (Vial) Inj) 50 ml UNSCH PRN IV 11/08/16 08:15 (Glucagon Inj) 1 mg UNSCH PRN OTHER 11/08/16 08:15 (Vasotec Inj) 1.25 mg Q6H PRN IV 11/08/16 08:15 (Catapres) 0.1 mg Q6H PRN PO 11/08/16 08:15 (Aspirin Chew) 81 mg DAILY CHEW 11/08/16 12:45 11/19/16 09:26 (Ferrous Sulfate) 325 mg DAILY PO 11/08/16 12:45 11/19/16 09:25 (Prinivil) 25 mg DAILY PO 11/08/16 12:45 Hold 11/18/16 09:59 (Nitrostat Sl) 0.4 mg Q6HR PRN SL 11/08/16 12:45 (Protonix) 40 mg DAILY PO 11/08/16 12:45 11/19/16 09:26 (Pravachol) 80 mg HS PO 11/08/16 21:00 11/19/16 20:51 (Inderal) 80 mg Q12HR PO 11/08/16 21:00 Hold 11/18/16 10:01 (Pill Splitter) 1 ea UNSCH PRN OTHER 11/08/16 12:45 (Elke-Colace) 1 tab BID PO 11/08/16 12:45 11/18/16 10:06 (Vitamin B1) 100 mg DAILY PO 11/09/16 09:00 11/19/16 09:25 (Romazicon Inj) 0.2 mg Q1M PRN IV PUSH 11/08/16 13:00 (Ativan) 1 mg Q4H PRN PO 11/08/16 13:00 (Ativan Inj) 1 mg Q4H PRN IV PUSH 11/08/16 13:00 (Ativan) 2 mg Q2H PRN PO 11/08/16 13:00 (Ativan Inj) 2 mg Q2H PRN IV PUSH 11/08/16 13:00 (Ativan Inj) 2 mg Q1H PRN IV PUSH 11/08/16 13:00 (Ativan Inj) 2 mg Q15M PRN IV PUSH 11/08/16 13:00 (Haldol Inj) 2 mg Q15M PRN IM 11/08/16 13:00 (Neosporin Oint) 1 applic DAILY TOPICAL 11/10/16 09:00 11/15/16 08:31 (Lactulose Liq) 30 ml DAILY PO 11/10/16 09:00 11/18/16 10:02 (Milk Of Magnesia Liq) 30 ml HS PO 11/10/16 21:00 11/19/16 20:51 (Lovenox Inj) 30 mg Q12H SQ 11/11/16 00:00 Hold 11/11/16 23:13 Calcium/Vitamin D 250 mg 250 mg TID PO 11/10/16 13:00 11/19/16 16:41 (Ancef 2 Gm Premix) 50 ml @ 100 mls/hr Q8H IV 11/13/16 12:00 11/20/16 11:59 11/19/16 20:52 (Ambien) 5 mg HS PRN PO 11/14/16 11:00 (Desyrel) 100 mg HS PO 11/14/16 21:00 11/19/16 20:51 (Neurontin) 600 mg TID PO 11/16/16 13:00 11/19/16 16:41 (Oramorph Sr) 30 mg Q12HR PO 11/18/16 21:00 11/19/16 20:51 (Morphine Inj) 6 mg Q4H PRN IV PUSH 11/18/16 16:45 11/19/16 05:59 (Morphine Inj) 3 mg Q3H PRN IV PUSH 11/18/16 16:45 11/19/16 16:36 (Mycostatin Powder) 1 applic Q12HR TOPICAL 11/19/16 21:00 Urinary Catheter: No Vascular Central Line Catheter: No A/P Problem List: (1) Fracture of tibia, left, open ICD Code: S82.202B Status: Acute (2) Fracture of tibia, right, open ICD Code: S82.201B Status: Acute Assessment and Plan 61-year-old male admitted secondary to bilateral leg trauma after car fell on his legs while he was working on. Open fractures were present bilaterally. Bilateral open tibia-fibula fractures Left tibial plateau fracture Open fractures have been surgically repaired, right side has external fixation Determination of need for transfer to [facility] is in process Patient doing well postop here today Continue pain treatments Continue DVT prophylaxis Continue wound VAC as needed Orthopedics following 11/18 Pain uncontrolled, Increase dose of Oramorph from 15 mg BID to 30 mg po BID. Will DC oral percocet until pain is controlled and keep on IV morphine only. 11/19 Pain better controlled. Continue pain management as above. Anemia Related to blood loss Stable since transfusion Follow hemoglobin and hematocrit Coronary artery disease Asymptomatic Continue beta gil, MARGIE inhibitor, and statin 11/19 Continue to hold BB and MARGIE due to hypotension. Hypertension Treatments being held Narcotics have a blood pressure depressing effect in this patient Diabetes mellitus type 2 Follow blood sugars Insulin sliding scale Diabetic diet Alcohol abuse Elevated LFTs No DTs when seen Cessation recommended Tobacco abuse Cessation recommended Chronic essential tremor Hold inderal for now due to hypotension Hypotension 8/1 sp 1 !liter normal saline bolus x1, DC LR and start normal saline. Bolus with NS prn 8/2 bp better. Cotninue to monitor Hyponatremia check serum and urine osmolality. DC Lactated Ringers and start on NS. Will fluid restrict depending on osmolality results. Will monitor BMP 8/2 Sodium trending down on normal saline - start fluid restriction. Mild Hyperkalemia 8/2 K better on IV fluids - continue to monitor BMP Leukocytosis Check urinalysis. No fevers. Likely reactive to stres due to hypotension. 8/2 UA negative. Patient afebrile. consult infectious disease. GI prophylaxis: PPI No chemoprophylaxis due to blood loss Discharge Planning Pending ID consult. improvement of hyponatremia Problem Qualifiers (1) Fracture of tibia, left, open: Qualified Code: S82.255B - Type I or II open nondisplaced comminuted fracture of shaft of left tibia, initial encounter (2) Fracture of tibia, right, open: Qualified Code: S82.251C - Type III open displaced comminuted fracture of shaft of right tibia, initial encounter Davis Tao MD Nov 19, 2016 18:59
[2016-11-19 20:45] VITALS: BP 119/62; PULSE 67; RESP 17; TEMP 97; O2SAT 99
[2016-11-19] MEDS: traZODone HCL 100 MG TAB PO SCH (20:51)
[2016-11-19] MEDS: PRAVASTATIN SOD 80 MG TAB PO SCH (20:51)
[2016-11-19] MEDS: MAGNESIUM HYDROXIDE SUSP 30 ML CUP PO SCH (20:51)
[2016-11-19] MEDS: NYSTATIN 100,000 U/GM PWD 15 GM BTL TOPICAL SCH (21:00)
[2016-11-20 00:35] VITALS: BP 133/69; PULSE 76; RESP 18; TEMP 97.6; O2SAT 98
[2016-11-20] MEDS ORDERED: ACETAMINOPHEN/HYDROcodone 325 MG/7.5 MG TAB PO PRN (00:45)
[2016-11-20] MEDS: ACETAMINOPHEN/HYDROcodone 325 MG/10 MG TAB PO PRN ×4 (01:01→16:47)
[2016-11-20] MEDS: ceFAZolin 2 GM PREMIX 50 ML IV SCH (04:43)
[2016-11-20] MEDS: INSULIN ASPART SUPPLEMENTAL SCALE SQ SCH ×4 (07:00→22:30)
[2016-11-20 07:58] LABS: BASOPHIL # 0.1 TH/MM3 (0-0.2); BASOPHIL % 0.6 % (0.0-2.0); EOSINOPHIL # 0.1 TH/MM3 (0-0.4); EOSINOPHIL % 0.7 % (0.0-4.0); HEMATOCRIT 32.8 % (39.0-51.0); LYMPH % 8.5 % (9.0-44.0); LYMPHOCYTE # 1.2 TH/MM3 (1.0-4.8); MEAN CELL VOLUME 95.5 FL (80.0-100.0); MEAN CORPUSCULAR HEMOGLOBIN 31.1 PG (27.0-34.0); MEAN CORPUSCULAR HGB CONC 32.5 % (32.0-36.0); MONO % 12.7 % (0.0-8.0); NEUT % 77.5 % (16.0-70.0); PLATELET COUNT 436 TH/MM3 (150-450); RED BLOOD COUNT 3.43 MIL/MM3 (4.50-5.90); WHITE BLOOD COUNT 14.3 TH/MM3 (4.0-11.0)
[2016-11-20 08:00] VITALS: BP 119/69; PULSE 81; RESP 18; TEMP 97.2; O2SAT 97
[2016-11-20 08:04] LABS: HEMO FLAGS AUTO DIFF
[2016-11-20 08:23] LABS: ANION GAP 8 MEQ/L (5-15); AST (GOT) 56 U/L (15-37); BICARBONATE 23.8 MEQ/L (21.0-32.0); BLOOD UREA NITROGEN 14 MG/DL (7-18); CHLORIDE 97 MEQ/L (98-107); GLOMERULAR FILTRATION RATE 125 ML/MIN (>89); POTASSIUM 4.7 MEQ/L (3.5-5.1); SODIUM (NA) 129 MEQ/L (136-145)
[2016-11-20 08:24] LABS: ALT (GPT) 27 U/L (12-78)
[2016-11-20] MEDS: CALCIUM/VITAMIN D 250 MG/125 U TAB PO SCH ×3 (08:25→16:46)
[2016-11-20] MEDS: LACTULOSE SYRUP 20 GM/30 ML CUP PO SCH (08:25)
[2016-11-20] MEDS: FERROUS SULFATE 325 MG (65 MG ELEMENTAL IRON) TAB PO SCH (08:25)
[2016-11-20 08:26] LABS: ALKALINE PHOSPHATASE 86 U/L (45-117); TOTAL BILIRUBIN ADULT 0.4 MG/DL (0.2-1.0)
[2016-11-20] MEDS: MORPHINE SULFATE 15 MG CONTROLLED RELEASE TAB PO SCH ×2 (08:26→22:32)
[2016-11-20] MEDS: NYSTATIN 100,000 U/GM PWD 15 GM BTL TOPICAL SCH ×2 (08:26→21:00)
[2016-11-20] MEDS: PANTOPRAZOLE SOD 40 MG DELAYED RELEASE TAB PO SCH (08:26)
[2016-11-20] MEDS: DOCUSATE SODIUM 50 MG/SENNA 8.6 MG TAB PO SCH ×2 (08:26→22:32)
[2016-11-20] MEDS: ASPIRIN 81 MG CHEW TAB CHEW SCH (08:26)
[2016-11-20] MEDS: THIAMINE HCL 100 MG TAB PO SCH (08:26)
[2016-11-20] MEDS: SODIUM CHLORIDE 0.9% FLUSH 10 ML FLUSH IV FLUSH SCH ×2 (08:26→22:33)
[2016-11-20] MEDS: GABAPENTIN 300 MG CAP PO SCH ×3 (08:26→16:46)
[2016-11-20] MEDS: NEOMYCIN/POLYMYXIN/BACITRACIN OINT 15 GM TUBE TOPICAL SCH (08:27)
[2016-11-20 10:31] LABS: BANDS 6 % (0-6); BASOPHILS 1 % (0-2); MYELOCYTES 2 % (0-0); NEUTROPHIL # MANUAL DIFF 11.6 TH/MM3 (1.8-7.7); PLATELET ESTIMATE SMEAR NORMAL (NORMAL); PLATELET MORPHOLOGY NORMAL (NORMAL); POLYS (SEG NEUTROPHILS) 73 % (16-70); SCAN/DIFF FINAL DIFF MANUAL; WBC DIFF SAMPLE 100
[2016-11-20 12:00] VITALS: BP 127/69; PULSE 68; RESP 18; TEMP 98.4; O2SAT 98
--- NOTE | 2016-11-20 13:41 | HHI.PR ---
Subjective Remarks states pain is better controlled states oral pain medications give him indigestion denies cp/sob afebrile wbc trending down Objective Vitals Vital Signs Date Time Temp Pulse Resp B/P Pulse Ox O2 Delivery O2 Flow Rate FiO2 11/20/16 12:00 98.4 68 18 127/69 98 11/20/16 08:00 97.2 81 18 119/69 97 11/20/16 00:35 97.6 76 18 133/69 98 11/19/16 20:45 97.0 67 17 119/62 99 11/19/16 16:00 97.4 69 17 108/64 98 I/O 11/19/16 11/19/16 11/19/16 11/20/16 11/20/16 11/20/16 06:59 14:59 22:59 06:59 14:59 22:59 Intake Total 1340 ml 1200 ml 480 ml 240 ml Output Total 1400 ml 2375 ml 950 ml 850 ml Balance -60 ml -1175 ml -470 ml -610 ml Intake Oral 480 ml 1200 ml 480 ml 240 ml IV Total 860 ml Output Urine Total 1400 ml 2375 ml 950 ml 850 ml Drainage Total 0 ml # Voids 6 # Bowel Movements 1 0 0 1 Result Diagram: 11/20/16 0737 11/20/16 0737 Imaging Last Impressions Tibia/Fibula X-Ray 11/10/16 0000 Signed Impressions: Service Date/Time: Thursday, November 10, 2016 10:07 - CONCLUSION: Anatomic Alignment following left tibial IM mariano. Arvind Flores MD FACR Ankle X-Ray 11/10/16 0000 Signed Impressions: Service Date/Time: Thursday, November 10, 2016 10:07 - CONCLUSION: Anatomic alignment following ORIF in an external fixator. Arvind Flores MD FACR Pelvis X-Ray 11/07/16 1355 Signed Impressions: Service Date/Time: Monday, November 07, 2016 13:34 - CONCLUSION: No acute disease. Behzad Finch Jr., MD Chest X-Ray 11/07/16 1355 Signed Impressions: Service Date/Time: Monday, November 07, 2016 13:34 - CONCLUSION: No acute disease. Jac Gonzales MD Objective Remarks GENERAL: NAD, A&Ox3 HEAD: Normocephalic. NECK: Supple, trachea midline. No lymphadenopathy. EYES: No scleral icterus. No injection or drainage. CARDIOVASCULAR: Regular rate and rhythm without murmurs, gallops, or rubs. RESPIRATORY: Breath sounds equal bilaterally. No accessory muscle use. GASTROINTESTINAL: Abdomen soft, non-tender, nondistended. MUSCULOSKELETAL: No cyanosis, or edema. Right lower leg bandaged with external fixation in place. Left lower and upper leg bandaged SKIN: Warm and dry. NEURO: No focal neurological deficitis. Procedures 1.s/p I&D with exfix application bilateral tibias s/p wound vac application left tibia 2.With the assistance of RN, under sterile technique the avulsed skin of the right middle finger was clipped. No bleeding noted. Patient gave consent 3.Open reduction internal fixation of right distal tibia and fibula fractures Nonoperative treatment left tibial plateau fracture Irrigation and debridement of left tibia shaft fracture, removal external fixation, soleus muscle rotational flap, intramedullary nail fixation left tibia , application of wound VAC dressing Medications and IVs Current Medications Medications (Trade) Dose Ordered Sig/Milagro Route Start Time Stop Time Status Last Admin (NS Flush) 2 ml UNSCH PRN IV FLUSH 11/07/16 14:30 11/18/16 11:14 (NS Flush) 2 ml BID IV FLUSH 11/07/16 21:00 11/20/16 08:26 (Zofran Inj) 4 mg Q6H PRN IV 11/07/16 14:30 11/07/16 21:36 (Narcan Inj) 0.4 mg UNSCH PRN IV 11/07/16 14:30 (Tylenol) 650 mg Q4H PRN PO 11/08/16 08:15 (Tums Chew) 1,000 mg TID PRN CHEW 11/08/16 08:15 11/15/16 14:16 (D50w (Vial) Inj) 50 ml UNSCH PRN IV 11/08/16 08:15 (Glucagon Inj) 1 mg UNSCH PRN OTHER 11/08/16 08:15 (Vasotec Inj) 1.25 mg Q6H PRN IV 11/08/16 08:15 (Catapres) 0.1 mg Q6H PRN PO 11/08/16 08:15 (Aspirin Chew) 81 mg DAILY CHEW 11/08/16 12:45 11/20/16 08:26 (Ferrous Sulfate) 325 mg DAILY PO 11/08/16 12:45 11/20/16 08:25 (Prinivil) 25 mg DAILY PO 11/08/16 12:45 Hold 11/18/16 09:59 (Nitrostat Sl) 0.4 mg Q6HR PRN SL 11/08/16 12:45 (Protonix) 40 mg DAILY PO 11/08/16 12:45 11/20/16 08:26 (Pravachol) 80 mg HS PO 11/08/16 21:00 11/19/16 20:51 (Inderal) 80 mg Q12HR PO 11/08/16 21:00 Hold 11/18/16 10:01 (Pill Splitter) 1 ea UNSCH PRN OTHER 11/08/16 12:45 ([place]-Colace) 1 tab BID PO 11/08/16 12:45 11/20/16 08:26 (Vitamin B1) 100 mg DAILY PO 11/09/16 09:00 11/20/16 08:26 (Romazicon Inj) 0.2 mg Q1M PRN IV PUSH 11/08/16 13:00 (Ativan) 1 mg Q4H PRN PO 11/08/16 13:00 (Ativan Inj) 1 mg Q4H PRN IV PUSH 11/08/16 13:00 (Ativan) 2 mg Q2H PRN PO 11/08/16 13:00 (Ativan Inj) 2 mg Q2H PRN IV PUSH 11/08/16 13:00 (Ativan Inj) 2 mg Q1H PRN IV PUSH 11/08/16 13:00 (Ativan Inj) 2 mg Q15M PRN IV PUSH 11/08/16 13:00 (Haldol Inj) 2 mg Q15M PRN IM 11/08/16 13:00 (Neosporin Oint) 1 applic DAILY TOPICAL 11/10/16 09:00 11/20/16 08:27 (Lactulose Liq) 30 ml DAILY PO 11/10/16 09:00 11/20/16 08:25 (Milk Of Magnesia Liq) 30 ml HS PO 11/10/16 21:00 11/19/16 20:51 (Lovenox Inj) 30 mg Q12H SQ 11/11/16 00:00 Hold 11/11/16 23:13 (Oscal-D 250-125) 250 mg TID PO 11/10/16 13:00 11/20/16 16:46 (Ambien) 5 mg HS PRN PO 11/14/16 11:00 (Desyrel) 100 mg HS PO 11/14/16 21:00 11/19/16 20:51 (Neurontin) 600 mg TID PO 11/16/16 13:00 11/20/16 16:46 (Oramorph Sr) 30 mg Q12HR PO 11/18/16 21:00 11/20/16 08:26 (Mycostatin Powder) 1 applic Q12HR TOPICAL 11/19/16 21:00 ([place] 7.5-325 Mg) 1 tab Q4H PRN PO 11/20/16 00:45 ([place] 10-325 Mg) 1 tab Q4H PRN PO 11/20/16 00:45 11/20/16 16:47 (Dilaudid Pf Inj) 1 mg Q4H PRN IV PUSH 11/20/16 00:45 Urinary Catheter: No Vascular Central Line Catheter: No A/P Problem List: (1) Fracture of tibia, left, open ICD Code: S82.202B Status: Acute (2) Fracture of tibia, right, open ICD Code: S82.201B Status: Acute Assessment and Plan 61-year-old male admitted secondary to bilateral leg trauma after car fell on his legs while he was working on. Open fractures were present bilaterally. Bilateral open tibia-fibula fractures Left tibial plateau fracture Open fractures have been surgically repaired, right side has external fixation Determination of need for transfer to [facility] is in process Patient doing well postop here today Continue pain treatments Continue DVT prophylaxis Continue wound VAC as needed Orthopedics following 11/18 Pain uncontrolled, Increase dose of Oramorph from 15 mg BID to 30 mg po BID. Will DC oral percocet until pain is controlled and keep on IV morphine only. 11/19 Pain better controlled. Continue pain management as above. Anemia Related to blood loss Stable since transfusion Follow hemoglobin and hematocrit Coronary artery disease Asymptomatic Continue beta gil, MARGIE inhibitor, and statin 11/30 Continue to hold BB and MARGIE due to hypotension. Hypertension Treatments being held Narcotics have a blood pressure depressing effect in this patient Diabetes mellitus type 2 Follow blood sugars Insulin sliding scale Diabetic diet Alcohol abuse Elevated LFTs No DTs when seen Cessation recommended Tobacco abuse Cessation recommended Chronic essential tremor Hold inderal for now due to hypotension Hypotension 8/1 sp 1 !liter normal saline bolus x1, DC LR and start normal saline. Bolus with NS prn 8/2 bp better. Continue to monitor 8/3 bp stable. Hyponatremia check serum and urine osmolality. DC Lactated Ringers and start on NS. Will fluid restrict depending on osmolality results. Will monitor BMP 8/2 Sodium trending down on normal saline - start fluid restriction. 8/3 sodium slightly improved 128 - 129. Mild Hyperkalemia 8/2 K better on IV fluids - continue to monitor BMP 8/3 resolved. Leukocytosis Check urinalysis. No fevers. Likely reactive to stres due to hypotension. 8/2 UA negative. Patient afebrile. consult infectious disease. 8/3 Likely reactive - now wbc trending down. GI prophylaxis: PPI No chemoprophylaxis due to blood loss Discharge Planning Pending ID consult. improvement of hyponatremia Problem Qualifiers (1) Fracture of tibia, left, open: Qualified Code: S82.255B - Type I or II open nondisplaced comminuted fracture of shaft of left tibia, initial encounter (2) Fracture of tibia, right, open: Qualified Code: S82.251C - Type III open displaced comminuted fracture of shaft of right tibia, initial encounter Davis Tao MD Nov 20, 2016 13:41
[2016-11-20 16:00] VITALS: BP 143/86; PULSE 71; RESP 18; TEMP 99.1; O2SAT 100
--- NOTE | 2016-11-20 17:01 | PD.ID.CON ---
History of Present Illness Service ID Consult Requested By Reason for Consult Evaluation and management of leukocytosis post trauma surgery patient Primary Care Physician Unknown Diagnoses: History of Present Illness is a 61 y/o CM with PMHx of DM,HTN, Hard of hearing, CAD, s/p CABG who was brought in as a trauma alert. Patient was apparently working on his car and the car apparently slipped off the block and the car pinned the patient against a wall. He sustained bilateral open tibia fibula fractures. He has undergone multiple irrigation debridement procedures last one being on 11/13/16. Patient has had no fevers but leucocytosis which fluctuates. Infection workup is pending but clinically does not behave like infection or sepsis. He denies any complaints. Denies diarrhea Has no Central line. UA negative CXR ordered and reviewed by me negative. ID consulted for leucocytosis in post op trauma pt. Review of Systems ROS Limitations: Hearing Impaired, Poor Historian Past Family Social History Allergies: Coded Allergies: No Known Allergies (Unverified , 11/07/16) Past Medical History CABG HTN CAD DM Past Surgical History CABG Reported Medications Reported Meds & Active Scripts Active Reported Protonix (Pantoprazole Sodium) 40 Mg Tab 40 Mg PO DAILY Ferrous Sulfate 325 Mg (65 Mg Iron) Tablet 325 Mg PO DAILY Metformin (Metformin HCl) 500 Mg Tab 500 Mg PO BIDPC With meals Propranolol (Propranolol HCl) 80 Mg Tab 80 Mg PO Q12HR Nitroglycerin SL (Nitroglycerin) 0.4 Mg Subl 0.4 Mg SL DIRECTED PRN ONE TABLET UNDER THE TONGUE NEEDED FOR CHEST PAIN, MAY REPEAT EVERY FIVE MINUTES FOR A TOTAL OF 3 DOSES OR CALL 911 IF NO RELIEF Lisinopril 5 Mg Tab 25 Mg PO DAILY Pravastatin 80 Mg Tab 80 Mg PO DAILY Aspirin 81 Mg Chew 81 Mg CHEW DAILY Active Ordered Medications Current Medications Medications (Trade) Dose Ordered Sig/Milagro Route Start Time Stop Time Status Last Admin (NS Flush) 2 ml UNSCH PRN IV FLUSH 11/07/16 14:30 11/18/16 11:14 (NS Flush) 2 ml BID IV FLUSH 11/07/16 21:00 11/20/16 08:26 (Zofran Inj) 4 mg Q6H PRN IV 11/07/16 14:30 11/07/16 21:36 (Narcan Inj) 0.4 mg UNSCH PRN IV 11/07/16 14:30 (Tylenol) 650 mg Q4H PRN PO 11/08/16 08:15 (Tums Chew) 1,000 mg TID PRN CHEW 11/08/16 08:15 11/15/16 14:16 (D50w (Vial) Inj) 50 ml UNSCH PRN IV 11/08/16 08:15 (Glucagon Inj) 1 mg UNSCH PRN OTHER 11/08/16 08:15 (Vasotec Inj) 1.25 mg Q6H PRN IV 11/08/16 08:15 (Catapres) 0.1 mg Q6H PRN PO 11/08/16 08:15 (Aspirin Chew) 81 mg DAILY CHEW 11/08/16 12:45 11/20/16 08:26 (Ferrous Sulfate) 325 mg DAILY PO 11/08/16 12:45 11/20/16 08:25 (Prinivil) 25 mg DAILY PO 11/08/16 12:45 Hold 11/18/16 09:59 (Nitrostat Sl) 0.4 mg Q6HR PRN SL 11/08/16 12:45 (Protonix) 40 mg DAILY PO 11/08/16 12:45 11/20/16 08:26 (Pravachol) 80 mg HS PO 11/08/16 21:00 11/19/16 20:51 (Inderal) 80 mg Q12HR PO 11/08/16 21:00 Hold 11/18/16 10:01 (Pill Splitter) 1 ea UNSCH PRN OTHER 11/08/16 12:45 (Elke-Colace) 1 tab BID PO 11/08/16 12:45 11/20/16 08:26 (Vitamin B1) 100 mg DAILY PO 11/09/16 09:00 11/20/16 08:26 (Romazicon Inj) 0.2 mg Q1M PRN IV PUSH 11/08/16 13:00 (Ativan) 1 mg Q4H PRN PO 11/08/16 13:00 (Ativan Inj) 1 mg Q4H PRN IV PUSH 11/08/16 13:00 (Ativan) 2 mg Q2H PRN PO 11/08/16 13:00 (Ativan Inj) 2 mg Q2H PRN IV PUSH 11/08/16 13:00 (Ativan Inj) 2 mg Q1H PRN IV PUSH 11/08/16 13:00 (Ativan Inj) 2 mg Q15M PRN IV PUSH 11/08/16 13:00 (Haldol Inj) 2 mg Q15M PRN IM 11/08/16 13:00 (Neosporin Oint) 1 applic DAILY TOPICAL 11/10/16 09:00 11/20/16 08:27 (Lactulose Liq) 30 ml DAILY PO 11/10/16 09:00 11/20/16 08:25 (Milk Of Magnesia Liq) 30 ml HS PO 11/10/16 21:00 11/19/16 20:51 (Lovenox Inj) 30 mg Q12H SQ 11/11/16 00:00 Hold 11/11/16 23:13 (Oscal-D 250-125) 250 mg TID PO 11/10/16 13:00 11/20/16 16:46 (Ambien) 5 mg HS PRN PO 11/14/16 11:00 (Desyrel) 100 mg HS PO 11/14/16 21:00 11/19/16 20:51 (Neurontin) 600 mg TID PO 11/16/16 13:00 11/20/16 16:46 (Oramorph Sr) 30 mg Q12HR PO 11/18/16 21:00 11/20/16 08:26 (Mycostatin Powder) 1 applic Q12HR TOPICAL 11/19/16 21:00 ([place] 7.5-325 Mg) 1 tab Q4H PRN PO 11/20/16 00:45 ([place] 10-325 Mg) 1 tab Q4H PRN PO 11/20/16 00:45 11/20/16 16:47 (Dilaudid Pf Inj) 1 mg Q4H PRN IV PUSH 11/20/16 00:45 Family History could not be obtained. Pt hard of hearing. Social History He smokes and drinks. Hard of hearing. Physical Exam Vital Signs Vital Signs Date Time Temp Pulse Resp B/P Pulse Ox O2 Delivery O2 Flow Rate FiO2 11/20/16 12:00 98.4 68 18 127/69 98 11/20/16 08:00 97.2 81 18 119/69 97 11/20/16 00:35 97.6 76 18 133/69 98 11/19/16 20:45 97.0 67 17 119/62 99 Physical Exam GENERAL: This is a well-nourished, well-developed patient, in no apparent distress. SKIN: No rashes, ecchymoses or lesions. Cool and dry. HEAD: Atraumatic. Normocephalic. No temporal or scalp tenderness. EYES: Pupils equal round and reactive. Extraocular motions intact. No scleral icterus. No injection or drainage. ENT: Nose without bleeding, purulent drainage or septal hematoma. Throat without erythema, tonsillar hypertrophy or exudate. Uvula midline. Airway patent. NECK: Trachea midline. Supple, nontender, no meningeal signs. CARDIOVASCULAR: Regular rate and rhythm without murmurs, gallops, or rubs. RESPIRATORY: Clear to auscultation. Breath sounds equal bilaterally. No wheezes , rales, or rhonchi. GASTROINTESTINAL: Abdomen soft, non-tender, nondistended. MUSCULOSKELETAL: Right LE with pins and rods. LLE with wound vac in place. Bilateral toes able to wiggle. NEUROLOGICAL: Awake and alert.Grossly non focal Psych: cooperative IV line sites with no e.o infection. Laboratory Laboratory Tests Test 11/20/16 07:37 White Blood Count 14.3 Red Blood Count 3.43 Hemoglobin 10.7 Hematocrit 32.8 Mean Corpuscular Volume 95.5 Mean Corpuscular Hemoglobin 31.1 Mean Corpuscular Hemoglobin 32.5 Concent Red Cell Distribution Width 14.0 Platelet Count 436 Mean Platelet Volume 7.2 Neutrophils (%) (Auto) 77.5 Lymphocytes (%) (Auto) 8.5 Monocytes (%) (Auto) 12.7 Eosinophils (%) (Auto) 0.7 Basophils (%) (Auto) 0.6 Neutrophils # (Auto) 11.0 Lymphocytes # (Auto) 1.2 Monocytes # (Auto) 1.8 Eosinophils # (Auto) 0.1 Basophils # (Auto) 0.1 CBC Comment AUTO DIFF Differential Total Cells 100 Counted Neutrophils % (Manual) 73 Band Neutrophils % 6 Lymphocytes % 8 Monocytes % 10 Basophils % 1 Neutrophils # (Manual) 11.6 Myelocytes 2 Differential Comment FINAL DIFF MANUAL Platelet Estimate NORMAL Platelet Morphology Comment NORMAL Red Cell Morphology Comment NORMAL Sodium Level 129 Potassium Level 4.7 Chloride Level 97 Carbon Dioxide Level 23.8 Anion Gap 8 Blood Urea Nitrogen 14 Creatinine 0.65 Estimat Glomerular Filtration 125 Rate Random Glucose 120 Calcium Level 8.2 Total Bilirubin 0.4 Aspartate Amino Transf 56 (AST/SGOT) Alanine Aminotransferase 27 (ALT/SGPT) Alkaline Phosphatase 86 Total Protein 6.7 Albumin 2.5 Date/Time Procedure Status Source Growth 11/19/16 13:45 Aerobic Blood Culture - Preliminary Resulted Blood Peripheral NO GROWTH IN 1 DAY 11/19/16 13:45 Anaerobic Blood Culture - Preliminary Resulted Blood Peripheral NO GROWTH IN 1 DAY Result Diagram: 11/20/16 0737 11/20/16 0737 Imaging Last Impressions Tibia/Fibula X-Ray 11/10/16 0000 Signed Impressions: Service Date/Time: Thursday, November 10, 2016 10:07 - CONCLUSION: Anatomic Alignment following left tibial IM mariano. Arvind Flores MD FACR Ankle X-Ray 11/10/16 0000 Signed Impressions: Service Date/Time: Thursday, November 10, 2016 10:07 - CONCLUSION: Anatomic alignment following ORIF in an external fixator. Arvind Flores MD FACR Pelvis X-Ray 11/07/16 1355 Signed Impressions: Service Date/Time: Monday, November 07, 2016 13:34 - CONCLUSION: No acute disease. Behzad Finch Jr., MD Chest X-Ray 11/07/16 1355 Signed Impressions: Service Date/Time: Monday, November 07, 2016 13:34 - CONCLUSION: No acute disease. Jac Gonzales MD Assessment and Plan Assessment and Plan Leucocytosis likely reactive. Bilateral tibia fibular fractures s/p I&D. External fixator in right leg. wound vac in left leg. Recs Leucocytosis likely reactive. Follow all cultures Unless shows signs of sepsis ok to withold antibiotics. Will sign off please call back if any change in clinical condition or questions or any positive cultures. Lauren Reyez MD Nov 20, 2016 17:01
[2016-11-20] MEDS: HYDROmorphone HCL PF 1 MG/ML VIAL IV PUSH PRN (17:21)
--- NOTE | 2016-11-20 17:40 | RADRPT ---
EXAM DATE/TIME: 11/20/2016 17:08 [facility] COMPARISON: CHEST SINGLE AP, November 07, 2016, 13:34. INDICATIONS : Short of breath. MEDICAL HISTORY : Hypertension. Diabetes mellitus type II. SURGICAL HISTORY : Cardiac bypass. ENCOUNTER: Subsequent ACUITY: 2 weeks PAIN SCORE: 0/10 LOCATION: Bilateral chest FINDINGS: Median sternotomy wires with disruption of the cephalad wires similar to prior exam. No new focal ple ural or parenchymal opacities. Cardiomediastinal contours are within normal limits. Bony thorax is in tact. CONCLUSION: 1. No acute abnormality or significant interval change. Sukhi Stevens MD on November 20, 2016 at 17:37 Board Certified Radiologist. This report was verified electronically.
--- NOTE | 2016-11-20 18:25 | PD.ORT.PN ---
Subjective Subjective Remarks Pain controlled Objective Vitals Vital Signs Date Time Temp Pulse Resp B/P Pulse Ox O2 Delivery O2 Flow Rate FiO2 11/20/16 16:00 99.1 71 18 143/86 100 11/20/16 12:00 98.4 68 18 127/69 98 11/20/16 08:00 97.2 81 18 119/69 97 11/20/16 00:35 97.6 76 18 133/69 98 11/19/16 20:45 97.0 67 17 119/62 99 I/O 11/19/16 11/19/16 11/19/16 11/20/16 11/20/16 11/20/16 06:59 14:59 22:59 06:59 14:59 22:59 Intake Total 1340 ml 1200 ml 480 ml 240 ml 720 ml Output Total 1400 ml 2375 ml 950 ml 850 ml 1300 ml Balance -60 ml -1175 ml -470 ml -610 ml -580 ml Intake Oral 480 ml 1200 ml 480 ml 240 ml 720 ml IV Total 860 ml Output Urine Total 1400 ml 2375 ml 950 ml 850 ml 1300 ml Drainage Total 0 ml # Voids 6 # Bowel Movements 1 0 0 1 0 Result Diagram: 11/20/16 0737 11/20/16 0737 Imaging Last 24 hours Impressions Pelvis X-Ray 11/07/16 1355 Signed Impressions: Service Date/Time: Monday, November 07, 2016 13:34 - CONCLUSION: No acute disease. Behzad Finch Jr., MD Chest X-Ray 11/07/16 1355 Signed Impressions: Service Date/Time: Monday, November 07, 2016 13:34 - CONCLUSION: No acute disease. Jac Gonzales MD Objective Remarks RLE: Dressings clean and dry. intact. NVI with full sensation and motor function. +exfix. pin sites. clean LLE: Wound VAC taken down. Soleus muscle flap debrided. Distal end of soleus is dusky but not necrosed. Medial portion of the soleus that had traumatic puncture with tibia had small portion with necrosis. New wound VAC application applied. Good seal. no sensation over medial foot. inability to dorsiflex or flex toes/foot. Assessment & Plan Assessment and Plan 1) Right Open Tibia Fracture s/p exfix revision with ORIF - POD 10 2) Left Open Tibia Fracture s/p Soleus muscle flap with IMN and removal of exfix - POD 10 -NWB BLE -pin care BID right leg -maintain vac left leg -vac settinmmHg, intermittent, 3:1 -Will plan on vac change bedside on Thursday- have Ioban, Xeroform and extra- large wound VAC sponge bedside Nothing by mouth after midnight on Thursday night and will examine with Dr. Gillis Thursday morning for future plan Ronald Hatch Jr. Nov 20, 2016 18:25
[2016-11-20 20:35] VITALS: BP 110/56; PULSE 72; RESP 17; TEMP 98.9; O2SAT 100
[2016-11-20] MEDS: MAGNESIUM HYDROXIDE SUSP 30 ML CUP PO SCH (22:31)
[2016-11-20] MEDS: PRAVASTATIN SOD 80 MG TAB PO SCH (22:31)
[2016-11-20] MEDS: traZODone HCL 100 MG TAB PO SCH (22:32)
[2016-11-21 00:35] VITALS: BP 107/66; PULSE 85; RESP 17; TEMP 99.8; O2SAT 98
[2016-11-21] MEDS: HYDROmorphone HCL PF 1 MG/ML VIAL IV PUSH PRN (03:45)
[2016-11-21] MEDS: INSULIN ASPART SUPPLEMENTAL SCALE SQ SCH ×4 (06:35→21:59)
[2016-11-21 08:00] VITALS: BP 126/72; PULSE 82; RESP 18; TEMP 97.9; O2SAT 99
[2016-11-21] MEDS: DOCUSATE SODIUM 50 MG/SENNA 8.6 MG TAB PO SCH ×2 (08:15→21:52)
[2016-11-21] MEDS: ASPIRIN 81 MG CHEW TAB CHEW SCH (08:15)
[2016-11-21] MEDS: FERROUS SULFATE 325 MG (65 MG ELEMENTAL IRON) TAB PO SCH (08:15)
[2016-11-21] MEDS: CALCIUM/VITAMIN D 250 MG/125 U TAB PO SCH ×3 (08:15→16:35)
[2016-11-21] MEDS: THIAMINE HCL 100 MG TAB PO SCH (08:15)
[2016-11-21] MEDS: PANTOPRAZOLE SOD 40 MG DELAYED RELEASE TAB PO SCH (08:15)
[2016-11-21] MEDS: GABAPENTIN 300 MG CAP PO SCH ×3 (08:15→16:35)
[2016-11-21] MEDS: MORPHINE SULFATE 15 MG CONTROLLED RELEASE TAB PO SCH ×2 (08:15→21:52)
[2016-11-21] MEDS: SODIUM CHLORIDE 0.9% FLUSH 10 ML FLUSH IV FLUSH SCH ×2 (08:16→21:53)
[2016-11-21] MEDS: LACTULOSE SYRUP 20 GM/30 ML CUP PO SCH (08:16)
[2016-11-21] MEDS: NEOMYCIN/POLYMYXIN/BACITRACIN OINT 15 GM TUBE TOPICAL SCH (08:17)
[2016-11-21] MEDS: NYSTATIN 100,000 U/GM PWD 15 GM BTL TOPICAL SCH ×2 (08:18→21:00)
[2016-11-21] MEDS: ACETAMINOPHEN/HYDROcodone 325 MG/10 MG TAB PO PRN ×2 (11:42→16:35)
[2016-11-21 12:00] VITALS: BP 119/62; PULSE 77; RESP 18; TEMP 98.5; O2SAT 97
[2016-11-21 16:00] VITALS: BP 114/70; PULSE 76; RESP 18; TEMP 98; O2SAT 98
--- NOTE | 2016-11-21 16:11 | HHI.PR ---
Subjective Remarks pain is controlled denies fevers/chills Objective Vitals Vital Signs Date Time Temp Pulse Resp B/P Pulse Ox O2 Delivery O2 Flow Rate FiO2 11/21/16 08:00 97.9 82 18 126/72 99 11/21/16 04:12 16 11/21/16 02:00 Room Air 11/21/16 00:35 99.8 85 17 107/66 98 11/20/16 23:32 18 11/20/16 20:35 98.9 72 17 110/56 100 I/O 11/20/16 11/20/16 11/20/16 11/21/16 11/21/16 11/21/16 07:00 15:00 23:00 07:00 15:00 23:00 Intake Total 240 ml 1440 ml 480 ml Output Total 850 ml 2100 ml 0 ml Balance -610 ml -660 ml 480 ml Intake Oral 240 ml 1440 ml 480 ml Output Urine Total 850 ml 2100 ml Drainage Total 0 ml 0 ml # Voids 2 # Bowel Movements 1 0 0 Result Diagram: 11/20/16 0737 11/20/16 0737 Imaging Last Impressions Chest X-Ray 11/20/16 0000 Signed Impressions: Service Date/Time: November 17:08 - CONCLUSION: 1. No acute abnormality or significant interval change. Sukhi Stevens MD Tibia/Fibula X-Ray 11/10/16 0000 Signed Impressions: Service Date/Time: Thursday, November 10, 2016 10:07 - CONCLUSION: Anatomic Alignment following left tibial IM mariano. Arvind Flores MD FACR Ankle X-Ray 11/10/16 0000 Signed Impressions: Service Date/Time: Thursday, November 10, 2016 10:07 - CONCLUSION: Anatomic alignment following ORIF in an external fixator. Arvind Flores MD FACR Pelvis X-Ray 11/07/16 1355 Signed Impressions: Service Date/Time: Monday, November 07, 2016 13:34 - CONCLUSION: No acute disease. Behzad Finch Jr., MD Objective Remarks GENERAL: NAD, A&Ox3 HEAD: Normocephalic. NECK: Supple, trachea midline. No lymphadenopathy. EYES: No scleral icterus. No injection or drainage. CARDIOVASCULAR: Regular rate and rhythm without murmurs, gallops, or rubs. RESPIRATORY: Breath sounds equal bilaterally. No accessory muscle use. GASTROINTESTINAL: Abdomen soft, non-tender, nondistended. MUSCULOSKELETAL: No cyanosis, or edema. Right lower leg bandaged with external fixation in place. Left lower and upper leg bandaged SKIN: Warm and dry. NEURO: No focal neurological deficitis. Procedures 1.s/p I&D with exfix application bilateral tibias s/p wound vac application left tibia 2.With the assistance of RN, under sterile technique the avulsed skin of the right middle finger was clipped. No bleeding noted. Patient gave consent 3.Open reduction internal fixation of right distal tibia and fibula fractures Nonoperative treatment left tibial plateau fracture Irrigation and debridement of left tibia shaft fracture, removal external fixation, soleus muscle rotational flap, intramedullary nail fixation left tibia , application of wound VAC dressing Medications and IVs Current Medications Medications (Trade) Dose Ordered Sig/Milagro Route Start Time Stop Time Status Last Admin (NS Flush) 2 ml UNSCH PRN IV FLUSH 11/07/16 14:30 11/18/16 11:14 (NS Flush) 2 ml BID IV FLUSH 11/07/16 21:00 11/21/16 08:16 (Zofran Inj) 4 mg Q6H PRN IV 11/07/16 14:30 11/07/16 21:36 (Narcan Inj) 0.4 mg UNSCH PRN IV 11/07/16 14:30 (Tylenol) 650 mg Q4H PRN PO 11/08/16 08:15 (Tums Chew) 1,000 mg TID PRN CHEW 11/08/16 08:15 11/15/16 14:16 (D50w (Vial) Inj) 50 ml UNSCH PRN IV 11/08/16 08:15 (Glucagon Inj) 1 mg UNSCH PRN OTHER 11/08/16 08:15 (Vasotec Inj) 1.25 mg Q6H PRN IV 11/08/16 08:15 (Catapres) 0.1 mg Q6H PRN PO 11/08/16 08:15 (Aspirin Chew) 81 mg DAILY CHEW 11/08/16 12:45 11/21/16 08:15 (Ferrous Sulfate) 325 mg DAILY PO 11/08/16 12:45 11/21/16 08:15 (Prinivil) 25 mg DAILY PO 11/08/16 12:45 Hold 11/18/16 09:59 (Nitrostat Sl) 0.4 mg Q6HR PRN SL 11/08/16 12:45 (Protonix) 40 mg DAILY PO 11/08/16 12:45 11/21/16 08:15 (Pravachol) 80 mg HS PO 11/08/16 21:00 11/20/16 22:31 (Inderal) 80 mg Q12HR PO 11/08/16 21:00 Hold 11/18/16 10:01 (Pill Splitter) 1 ea UNSCH PRN OTHER 11/08/16 12:45 (Elke-Colace) 1 tab BID PO 11/08/16 12:45 11/21/16 08:15 (Vitamin B1) 100 mg DAILY PO 11/09/16 09:00 11/21/16 08:15 (Romazicon Inj) 0.2 mg Q1M PRN IV PUSH 11/08/16 13:00 (Ativan) 1 mg Q4H PRN PO 11/08/16 13:00 (Ativan Inj) 1 mg Q4H PRN IV PUSH 11/08/16 13:00 (Ativan) 2 mg Q2H PRN PO 11/08/16 13:00 (Ativan Inj) 2 mg Q2H PRN IV PUSH 11/08/16 13:00 (Ativan Inj) 2 mg Q1H PRN IV PUSH 11/08/16 13:00 (Ativan Inj) 2 mg Q15M PRN IV PUSH 11/08/16 13:00 (Haldol Inj) 2 mg Q15M PRN IM 11/08/16 13:00 (Neosporin Oint) 1 applic DAILY TOPICAL 11/10/16 09:00 11/20/16 08:27 (Lactulose Liq) 30 ml DAILY PO 11/10/16 09:00 11/20/16 08:25 (Milk Of Magnesia Liq) 30 ml HS PO 11/10/16 21:00 11/20/16 22:31 (Lovenox Inj) 30 mg Q12H SQ 11/11/16 00:00 Hold 11/11/16 23:13 (Oscal-D 250-125) 250 mg TID PO 11/10/16 13:00 11/21/16 16:35 (Ambien) 5 mg HS PRN PO 11/14/16 11:00 (Desyrel) 100 mg HS PO 11/14/16 21:00 11/20/16 22:32 (Neurontin) 600 mg TID PO 11/16/16 13:00 11/21/16 16:35 (Oramorph Sr) 30 mg Q12HR PO 11/18/16 21:00 11/21/16 08:15 (Mycostatin Powder) 1 applic Q12HR TOPICAL 11/19/16 21:00 ([place] 7.5-325 Mg) 1 tab Q4H PRN PO 11/20/16 00:45 ([place] 10-325 Mg) 1 tab Q4H PRN PO 11/20/16 00:45 11/21/16 16:35 (Dilaudid Pf Inj) 1 mg Q4H PRN IV PUSH 11/20/16 00:45 11/21/16 03:45 A/P Problem List: (1) Fracture of tibia, left, open ICD Code: S82.202B Status: Acute (2) Fracture of tibia, right, open ICD Code: S82.201B Status: Acute Assessment and Plan 61-year-old male admitted secondary to bilateral leg trauma after car fell on his legs while he was working on. Open fractures were present bilaterally. Bilateral open tibia-fibula fractures Left tibial plateau fracture Open fractures have been surgically repaired, right side has external fixation Determination of need for transfer to [facility] is in process Patient doing well postop here today Continue pain treatments Continue DVT prophylaxis Continue wound VAC as needed Orthopedics following 11/18 Pain uncontrolled, Increase dose of Oramorph from 15 mg BID to 30 mg po BID. Will DC oral percocet until pain is controlled and keep on IV morphine only. 11/19 Pain better controlled. Continue pain management as above. Anemia Related to blood loss Stable since transfusion Follow hemoglobin and hematocrit Coronary artery disease Asymptomatic Continue beta gil, MARGIE inhibitor, and statin 11/30 Continue to hold BB and MARGIE due to hypotension. 12/01 Bp better resume MARGIE. Hypertension antihypertensives held Narcotics have a blood pressure depressing effect in this patient Diabetes mellitus type 2 Follow blood sugars Insulin sliding scale Diabetic diet Alcohol abuse Elevated LFTs No DTs when seen Cessation recommended Tobacco abuse Cessation recommended Chronic essential tremor Hold inderal for now due to hypotension 12/01 Resume Inderal since BP better Hypotension 11/18 sp 1 !liter normal saline bolus x1, DC LR and start normal saline. Bolus with NS prn 8/2 bp better. Continue to monitor 8/3 bp stable. Hyponatremia check serum and urine osmolality. DC Lactated Ringers and start on NS. Will fluid restrict depending on osmolality results. Will monitor BMP 8/2 Sodium trending down on normal saline - start fluid restriction. 8/3 sodium slightly improved 128 - 129. Mild Hyperkalemia 8/2 K better on IV fluids - continue to monitor BMP 8/3 resolved. Leukocytosis Check urinalysis. No fevers. Likely reactive to stres due to hypotension. 8/2 UA negative. Patient afebrile. consult infectious disease. 11/21 Likely reactive - now wbc trending down. Antibiotics discontinued. GI prophylaxis: PPI No chemoprophylaxis due to blood loss Discharge Planning Possible Dc in am if sodium stable. Problem Qualifiers (1) Fracture of tibia, left, open: Qualified Code: S82.255B - Type I or II open nondisplaced comminuted fracture of shaft of left tibia, initial encounter (2) Fracture of tibia, right, open: Qualified Code: S82.251C - Type III open displaced comminuted fracture of shaft of right tibia, initial encounter Davis Tao MD Nov 21, 2016 16:11
[2016-11-21 20:30] VITALS: BP 117/62; PULSE 72; RESP 17; TEMP 98.2; O2SAT 95
[2016-11-21] MEDS: PRAVASTATIN SOD 80 MG TAB PO SCH (21:52)
[2016-11-21] MEDS: traZODone HCL 100 MG TAB PO SCH (21:52)
[2016-11-21] MEDS: MAGNESIUM HYDROXIDE SUSP 30 ML CUP PO SCH (21:52)
[2016-11-22 00:35] VITALS: BP 104/67; PULSE 99; RESP 18; TEMP 99.2; O2SAT 96
[2016-11-22] MEDS: HYDROmorphone HCL PF 1 MG/ML VIAL IV PUSH PRN ×4 (00:50→21:28)
[2016-11-22] MEDS: ACETAMINOPHEN/HYDROcodone 325 MG/10 MG TAB PO PRN ×2 (04:46→18:21)
[2016-11-22] MEDS: INSULIN ASPART SUPPLEMENTAL SCALE SQ SCH ×4 (07:00→21:30)
--- NOTE | 2016-11-22 07:45 | PD.ORT.PN ---
Subjective Subjective Remarks pt has no complaints Objective Vitals Vital Signs Date Time Temp Pulse Resp B/P Pulse Ox O2 Delivery O2 Flow Rate FiO2 11/22/16 05:55 18 11/22/16 03:18 Room Air 11/22/16 01:20 18 11/22/16 00:35 99.2 99 18 104/67 96 11/21/16 22:52 18 11/21/16 20:30 98.2 72 17 117/62 95 11/21/16 16:00 98.0 76 18 114/70 98 11/21/16 12:00 98.5 77 18 119/62 97 11/21/16 08:00 97.9 82 18 126/72 99 I/O 11/21/16 11/21/16 11/21/16 11/22/16 11/22/16 11/22/16 07:00 15:00 23:00 07:00 15:00 23:00 Intake Total 480 ml 1440 ml 480 ml 480 ml Output Total 0 ml 1500 ml 850 ml 700 ml Balance 480 ml -60 ml -370 ml -220 ml Intake Oral 480 ml 1440 ml 480 ml 480 ml Output Urine Total 1500 ml 850 ml 700 ml Drainage Total 0 ml 0 ml 0 ml # Voids 2 3 # Bowel Movements 1 0 0 Result Diagram: 11/20/16 0737 11/20/16 0737 Imaging Last 24 hours Impressions Pelvis X-Ray 11/07/16 1355 Signed Impressions: Service Date/Time: Monday, November 07, 2016 13:34 - CONCLUSION: No acute disease. Behzad Finch Jr., MD Chest X-Ray 11/07/16 1355 Signed Impressions: Service Date/Time: Monday, November 07, 2016 13:34 - CONCLUSION: No acute disease. Jac Gonzales MD Objective Remarks seen by Dr. Jimmy Quiles sitting in wheelchair at bedside RLE: Dressings clean and dry. intact. NVI with full sensation and motor function. +exfix. pin sites. clean LLE: Wound VAC previously taken down. Soleus muscle flap debrided. Distal end of soleus is dusky but not necrosed. Medial portion of the soleus that had traumatic puncture with tibia had small portion with necrosis. New wound VAC application applied. Good seal. no sensation over medial foot. inability to dorsiflex or flex toes/foot. Assessment & Plan Assessment and Plan 1) Right Open Tibia Fracture s/p exfix revision with ORIF - POD 12 2) Left Open Tibia Fracture s/p Soleus muscle flap with IMN and removal of exfix - POD 12 -NWB BLE -pin care BID right leg -maintain vac left leg -vac settinmmHg, intermittent, 3:1 -Will plan on vac change bedside on Thursday- have Ioban, Xeroform and extra- large wound VAC sponge bedside Nothing by mouth after midnight on Thursday night and will examine with Dr. Gillis Thursday morning for future plan Niru Ravi Nov 22, 2016 07:45
[2016-11-22 08:00] VITALS: BP 141/80; PULSE 79; RESP 18; TEMP 98.1; O2SAT 99
[2016-11-22] MEDS: THIAMINE HCL 100 MG TAB PO SCH (08:04)
[2016-11-22] MEDS: CALCIUM/VITAMIN D 250 MG/125 U TAB PO SCH ×3 (08:04→18:21)
[2016-11-22] MEDS: ASPIRIN 81 MG CHEW TAB CHEW SCH (08:04)
[2016-11-22] MEDS: NYSTATIN 100,000 U/GM PWD 15 GM BTL TOPICAL SCH ×2 (08:05→21:00)
[2016-11-22] MEDS: PANTOPRAZOLE SOD 40 MG DELAYED RELEASE TAB PO SCH (08:05)
[2016-11-22] MEDS: FERROUS SULFATE 325 MG (65 MG ELEMENTAL IRON) TAB PO SCH (08:05)
[2016-11-22] MEDS: GABAPENTIN 300 MG CAP PO SCH ×3 (08:05→18:21)
[2016-11-22] MEDS: LACTULOSE SYRUP 20 GM/30 ML CUP PO SCH (08:06)
[2016-11-22] MEDS: NEOMYCIN/POLYMYXIN/BACITRACIN OINT 15 GM TUBE TOPICAL SCH (08:06)
[2016-11-22] MEDS: DOCUSATE SODIUM 50 MG/SENNA 8.6 MG TAB PO SCH ×2 (08:07→21:29)
[2016-11-22] MEDS: SODIUM CHLORIDE 0.9% FLUSH 10 ML FLUSH IV FLUSH SCH ×2 (08:07→21:29)
[2016-11-22 08:29] LABS: AUTOMATED NEUTROPHIL # 10.5 TH/MM3 (1.8-7.7); BASOPHIL # 0.1 TH/MM3 (0-0.2); BASOPHIL % 0.7 % (0.0-2.0); EOSINOPHIL # 0.1 TH/MM3 (0-0.4); EOSINOPHIL % 0.9 % (0.0-4.0); HEMATOCRIT 33.2 % (39.0-51.0); HEMO FLAGS DIFF FINAL; LYMPH % 11.7 % (9.0-44.0); LYMPHOCYTE # 1.6 TH/MM3 (1.0-4.8); MEAN CELL VOLUME 94.3 FL (80.0-100.0); MEAN CORPUSCULAR HEMOGLOBIN 31.9 PG (27.0-34.0); MEAN CORPUSCULAR HGB CONC 33.9 % (32.0-36.0); MONO % 11.7 % (0.0-8.0); PLATELET COUNT 472 TH/MM3 (150-450); RED BLOOD COUNT 3.52 MIL/MM3 (4.50-5.90); RED CELL DISTRIBUTION WIDTH 13.6 % (11.6-17.2)
[2016-11-22 08:59] LABS: ALKALINE PHOSPHATASE 111 U/L (45-117); ALT (GPT) 33 U/L (12-78); ANION GAP 11 MEQ/L (5-15); AST (GOT) 56 U/L (15-37); BICARBONATE 26.4 MEQ/L (21.0-32.0); BLOOD UREA NITROGEN 13 MG/DL (7-18); CHLORIDE 93 MEQ/L (98-107); GLOMERULAR FILTRATION RATE 97 ML/MIN (>89); POTASSIUM 4.5 MEQ/L (3.5-5.1); SODIUM (NA) 130 MEQ/L (136-145); TOTAL BILIRUBIN ADULT 0.4 MG/DL (0.2-1.0)
[2016-11-22 11:58] VITALS: BP 136/84; PULSE 74; RESP 17; TEMP 96.8; O2SAT 99
[2016-11-22] MEDS: MORPHINE SULFATE 15 MG CONTROLLED RELEASE TAB PO SCH ×3 (12:41→21:28)
--- NOTE | 2016-11-22 12:56 | HHI.PR ---
Subjective Remarks Pain is controlled The patient denies fevers or chills Denies chest pain, shortness of breath Denies abdominal pain, nausea or vomiting Afebrile Objective Vitals Vital Signs Date Time Temp Pulse Resp B/P Pulse Ox O2 Delivery O2 Flow Rate FiO2 11/22/16 11:58 96.8 74 17 136/84 99 11/22/16 08:40 16 11/22/16 08:00 98.1 79 18 141/80 99 11/22/16 05:55 18 11/22/16 03:18 Room Air 11/22/16 00:35 99.2 99 18 104/67 96 11/21/16 22:52 18 11/21/16 20:30 98.2 72 17 117/62 95 11/21/16 16:00 98.0 76 18 114/70 98 I/O 11/21/16 11/21/16 11/21/16 11/22/16 11/22/16 11/22/16 06:59 14:59 22:59 06:59 14:59 22:59 Intake Total 480 ml 1920 ml 480 ml Output Total 0 ml 2350 ml 700 ml 0 ml Balance 480 ml -430 ml -220 ml 0 ml Intake Oral 480 ml 1920 ml 480 ml Output Urine Total 2350 ml 700 ml Drainage Total 0 ml 0 ml 0 ml # Voids 2 3 # Bowel Movements 1 0 0 Result Diagram: 11/22/16 0743 11/22/16 0743 Imaging Last Impressions Chest X-Ray 11/20/16 0000 Signed Impressions: Service Date/Time: November 17:08 - CONCLUSION: 1. No acute abnormality or significant interval change. Sukhi Stevens MD Tibia/Fibula X-Ray 11/10/16 0000 Signed Impressions: Service Date/Time: Thursday, November 10, 2016 10:07 - CONCLUSION: Anatomic Alignment following left tibial IM mariano. Arvind Flores MD FACR Ankle X-Ray 11/10/16 0000 Signed Impressions: Service Date/Time: Thursday, November 10, 2016 10:07 - CONCLUSION: Anatomic alignment following ORIF in an external fixator. Arvind Flores MD FACR Pelvis X-Ray 11/07/16 1355 Signed Impressions: Service Date/Time: Monday, November 07, 2016 13:34 - CONCLUSION: No acute disease. Behzad Finch Jr., MD Objective Remarks GENERAL: NAD, A&Ox3 HEAD: Normocephalic. NECK: Supple, trachea midline. No lymphadenopathy. EYES: No scleral icterus. No injection or drainage. CARDIOVASCULAR: Regular rate and rhythm without murmurs, gallops, or rubs. RESPIRATORY: Breath sounds equal bilaterally. No accessory muscle use. GASTROINTESTINAL: Abdomen soft, non-tender, nondistended. MUSCULOSKELETAL: No cyanosis, or edema. Right lower leg bandaged with external fixation in place. Left lower and upper leg bandaged SKIN: Warm and dry. NEURO: No focal neurological deficitis. Procedures 1.s/p I&D with exfix application bilateral tibias s/p wound vac application left tibia 2.With the assistance of RN, under sterile technique the avulsed skin of the right middle finger was clipped. No bleeding noted. Patient gave consent 3.Open reduction internal fixation of right distal tibia and fibula fractures Nonoperative treatment left tibial plateau fracture Irrigation and debridement of left tibia shaft fracture, removal external fixation, soleus muscle rotational flap, intramedullary nail fixation left tibia , application of wound VAC dressing Medications and IVs Current Medications Medications (Trade) Dose Ordered Sig/Milagro Route Start Time Stop Time Status Last Admin (NS Flush) 2 ml UNSCH PRN IV FLUSH 11/07/16 14:30 11/18/16 11:14 (NS Flush) 2 ml BID IV FLUSH 11/07/16 21:00 11/22/16 08:07 (Zofran Inj) 4 mg Q6H PRN IV 11/07/16 14:30 11/07/16 21:36 (Narcan Inj) 0.4 mg UNSCH PRN IV 11/07/16 14:30 (Tylenol) 650 mg Q4H PRN PO 11/08/16 08:15 (Tums Chew) 1,000 mg TID PRN CHEW 11/08/16 08:15 11/15/16 14:16 (D50w (Vial) Inj) 50 ml UNSCH PRN IV 11/08/16 08:15 (Glucagon Inj) 1 mg UNSCH PRN OTHER 11/08/16 08:15 (Vasotec Inj) 1.25 mg Q6H PRN IV 11/08/16 08:15 (Catapres) 0.1 mg Q6H PRN PO 11/08/16 08:15 (Aspirin Chew) 81 mg DAILY CHEW 11/08/16 12:45 11/22/16 08:04 (Ferrous Sulfate) 325 mg DAILY PO 11/08/16 12:45 11/22/16 08:05 (Prinivil) 25 mg DAILY PO 11/08/16 12:45 Hold 11/18/16 09:59 (Nitrostat Sl) 0.4 mg Q6HR PRN SL 11/08/16 12:45 (Protonix) 40 mg DAILY PO 11/08/16 12:45 11/22/16 08:05 (Pravachol) 80 mg HS PO 11/08/16 21:00 11/21/16 21:52 (Inderal) 80 mg Q12HR PO 11/08/16 21:00 Hold 11/18/16 10:01 (Pill Splitter) 1 ea UNSCH PRN OTHER 11/08/16 12:45 (Elke-Colace) 1 tab BID PO 11/08/16 12:45 11/21/16 08:15 (Vitamin B1) 100 mg DAILY PO 11/09/16 09:00 11/22/16 08:04 (Romazicon Inj) 0.2 mg Q1M PRN IV PUSH 11/08/16 13:00 (Ativan) 1 mg Q4H PRN PO 11/08/16 13:00 (Ativan Inj) 1 mg Q4H PRN IV PUSH 11/08/16 13:00 (Ativan) 2 mg Q2H PRN PO 11/08/16 13:00 (Ativan Inj) 2 mg Q2H PRN IV PUSH 11/08/16 13:00 (Ativan Inj) 2 mg Q1H PRN IV PUSH 11/08/16 13:00 (Ativan Inj) 2 mg Q15M PRN IV PUSH 11/08/16 13:00 (Haldol Inj) 2 mg Q15M PRN IM 11/08/16 13:00 (Neosporin Oint) 1 applic DAILY TOPICAL 11/10/16 09:00 11/22/16 08:06 (Lactulose Liq) 30 ml DAILY PO 11/10/16 09:00 11/20/16 08:25 (Milk Of Magnesia Liq) 30 ml HS PO 11/10/16 21:00 11/21/16 21:52 (Lovenox Inj) 30 mg Q12H SQ 11/11/16 00:00 Hold 11/11/16 23:13 (Oscal-D 250-125) 250 mg TID PO 11/10/16 13:00 11/22/16 08:04 (Ambien) 5 mg HS PRN PO 11/14/16 11:00 (Desyrel) 100 mg HS PO 11/14/16 21:00 11/21/16 21:52 (Neurontin) 600 mg TID PO 11/16/16 13:00 11/22/16 08:05 (Oramorph Sr) 30 mg Q12HR PO 11/18/16 21:00 11/21/16 21:52 (Mycostatin Powder) 1 applic Q12HR TOPICAL 11/19/16 21:00 11/22/16 08:05 ([place] 7.5-325 Mg) 1 tab Q4H PRN PO 11/20/16 00:45 ([place] 10-325 Mg) 1 tab Q4H PRN PO 11/20/16 00:45 11/22/16 04:46 (Dilaudid Pf Inj) 1 mg Q4H PRN IV PUSH 11/20/16 00:45 11/22/16 08:04 Urinary Catheter: No Vascular Central Line Catheter: No A/P Problem List: (1) Fracture of tibia, left, open ICD Code: S82.202B Status: Acute (2) Fracture of tibia, right, open ICD Code: S82.201B Status: Acute Assessment and Plan 61-year-old male admitted secondary to bilateral leg trauma after car fell on his legs while he was working on. Open fractures were present bilaterally. Bilateral open tibia-fibula fractures Left tibial plateau fracture Open fractures have been surgically repaired, right side has external fixation Determination of need for transfer to [facility] is in process Patient doing well postop here today Continue DVT prophylaxis Continue wound VAC over left leg as per orthopedic surgery recommendations. Appreciate orthopedic surgery recommendations and efforts. Patient was started on Oramorph initially at 15 mg by mouth twice a day which was increased to 30 mg by mouth twice a day on 11/18/16 due to uncontrolled pain. Patient was also started on [place] and Dilaudid IV for breakthrough pain. 11/22 pain seems to be better controlled. Continue pain management as above. Acute blood loss anemia Related to blood loss Status post transfusion of 2 units of packed red blood cells in 11/12/16. Continue to monitor CBC and hemoglobin as well as hematocrit which have been stable. Coronary artery disease Seems stable. The patient is asymptomatic. Continue beta gil, MARGIE inhibitor, and statin 11/22 Continue to hold MARGIE inhibitor Hypertension Antihypertensive held due to hypotension. Narcotics seem to have a depressive affect on this patient, however blood pressure has much improved after the patient was taken off IV morphine 11/22 Resume propanolol at a lower dose - 40 mg by mouth twice a day instead of 80 mg by mouth twice a day with holding parameters, continue to monitor vital signs. Diabetes mellitus type 2 Blood sugar seems to be stable. Continue SSI with insulin NovoLog. Continue to monitor Accu-Cheks. Continue with diabetic diet Alcohol abuse AST mildly elevated, AST within normal range. There is no evidence of alcohol withdrawal at this moment. Alcohol cessation recommended Tobacco abuse Cessation recommended. Chronic essential tremor Hold inderal for now due to hypotension 11/22 Resume Inderal at a lowetr dose and holding parameters since patient tremors are worst.1 Hypotension Resolved after IV normal saline bolus. Continue to monitor vital signs. Hyponatremia Sodium trending up on fluid restriction. 128 -129 - 130. Continue to monitor BMP. Mild Hyperkalemia Potassium trending down on IV fluids. Continue to monitor BMP. K currently 4.5 on 11/22. Leukocytosis Likely reactive. ID consulted, appreciate recommendations. Blood cultures negative to date, continue to monitor. WBC continued to trend down and patient is a febrile without clear signs of infection. GI prophylaxis: PPI No chemoprophylaxis due to blood loss Discharge Planning Patient for wound VAC change on Thursday. Problem Qualifiers (1) Fracture of tibia, left, open: Qualified Code: S82.255B - Type I or II open nondisplaced comminuted fracture of shaft of left tibia, initial encounter (2) Fracture of tibia, right, open: Qualified Code: S82.251C - Type III open displaced comminuted fracture of shaft of right tibia, initial encounter Davis Tao MD Nov 22, 2016 12:56
[2016-11-22 16:00] VITALS: BP 123/70; PULSE 77; RESP 18; TEMP 97.5; O2SAT 99
[2016-11-22 20:00] VITALS: BP 130/68; PULSE 79; RESP 20; TEMP 99.3; O2SAT 97
[2016-11-22] MEDS: traZODone HCL 100 MG TAB PO SCH (21:28)
[2016-11-22] MEDS: PROPRANOLOL HCL 40 MG TAB PO SCH (21:29)
[2016-11-22] MEDS: PRAVASTATIN SOD 80 MG TAB PO SCH (21:29)
[2016-11-22] MEDS: MAGNESIUM HYDROXIDE SUSP 30 ML CUP PO SCH (21:29)
[2016-11-23] VITALS: BP 109/68; PULSE 82; RESP 20; TEMP 97.6; O2SAT 99
[2016-11-23] MEDS: ACETAMINOPHEN/HYDROcodone 325 MG/10 MG TAB PO PRN ×4 (01:56→20:40)
[2016-11-23] MEDS: HYDROmorphone HCL PF 1 MG/ML VIAL IV PUSH PRN ×3 (04:11→16:43)
[2016-11-23] MEDS: INSULIN ASPART SUPPLEMENTAL SCALE SQ SCH ×4 (06:16→20:41)
[2016-11-23 08:00] VITALS: BP 103/63; PULSE 59; RESP 18; TEMP 97.1; O2SAT 100
--- NOTE | 2016-11-23 08:15 | PD.ORT.PN ---
Subjective Subjective Remarks pt has no complaints Objective Vitals Vital Signs Date Time Temp Pulse Resp B/P Pulse Ox O2 Delivery O2 Flow Rate FiO2 11/23/16 00:00 97.6 82 20 109/68 99 11/22/16 20:00 99.3 79 20 130/68 97 11/22/16 16:00 97.5 77 18 123/70 99 11/22/16 15:39 16 11/22/16 15:07 16 11/22/16 11:58 96.8 74 17 136/84 99 I/O 11/22/16 11/22/16 11/22/16 11/23/16 11/23/16 11/23/16 07:00 15:00 23:00 07:00 15:00 23:00 Intake Total 480 ml 1200 ml 240 ml 360 ml Output Total 700 ml 1000 ml 1100 ml Balance -220 ml 1200 ml -760 ml -740 ml Intake Oral 480 ml 1200 ml 240 ml 360 ml Output Urine Total 700 ml 1000 ml 1100 ml Drainage Total 0 ml 0 ml 0 ml # Voids 5 # Bowel Movements 0 1 Result Diagram: 11/22/16 0743 11/22/16 0743 Imaging Last 24 hours Impressions Pelvis X-Ray 11/07/16 1355 Signed Impressions: Service Date/Time: Monday, November 07, 2016 13:34 - CONCLUSION: No acute disease. Behzad Finch Jr., MD Chest X-Ray 11/07/16 1355 Signed Impressions: Service Date/Time: Monday, November 07, 2016 13:34 - CONCLUSION: No acute disease. Jac Gonzales MD Objective Remarks seen by Dr. Jimmy Quiles sitting up in bed RLE: Dressings clean and dry. intact. NVI with full sensation and motor function. +exfix. pin sites. clean LLE: Wound VAC previously taken down. Soleus muscle flap debrided. Distal end of soleus is dusky but not necrosed. Medial portion of the soleus that had traumatic puncture with tibia had small portion with necrosis. New wound VAC application applied. Good seal. no sensation over medial foot. inability to dorsiflex or flex toes/foot. Assessment & Plan Assessment and Plan 1) Right Open Tibia Fracture s/p exfix revision with ORIF - POD #13 2) Left Open Tibia Fracture s/p Soleus muscle flap with IMN and removal of exfix - POD #13 -NWB BLE -pin care BID right leg -maintain vac left leg -vac settinmmHg, intermittent, 3:1 -Will plan on vac change bedside on Thursday- have Ioban, Xeroform and extra- large wound VAC sponge bedside Nothing by mouth after midnight on Thursday night and will examine with Dr. Gillis Thursday morning for future plan Niru Ravi Nov 23, 2016 08:15
[2016-11-23] MEDS: GABAPENTIN 300 MG CAP PO SCH ×3 (08:29→16:43)
[2016-11-23] MEDS: ASPIRIN 81 MG CHEW TAB CHEW SCH (08:29)
[2016-11-23] MEDS: PANTOPRAZOLE SOD 40 MG DELAYED RELEASE TAB PO SCH (08:29)
[2016-11-23] MEDS: THIAMINE HCL 100 MG TAB PO SCH (08:29)
[2016-11-23] MEDS: CALCIUM/VITAMIN D 250 MG/125 U TAB PO SCH ×3 (08:29→16:43)
[2016-11-23] MEDS: FERROUS SULFATE 325 MG (65 MG ELEMENTAL IRON) TAB PO SCH (08:29)
[2016-11-23] MEDS: MORPHINE SULFATE 15 MG CONTROLLED RELEASE TAB PO SCH ×2 (08:30→20:40)
[2016-11-23] MEDS: PROPRANOLOL HCL 40 MG TAB PO SCH ×2 (08:30→20:40)
[2016-11-23] MEDS: DOCUSATE SODIUM 50 MG/SENNA 8.6 MG TAB PO SCH ×2 (08:31→20:41)
[2016-11-23] MEDS: NYSTATIN 100,000 U/GM PWD 15 GM BTL TOPICAL SCH ×2 (08:31→20:41)
[2016-11-23] MEDS: NEOMYCIN/POLYMYXIN/BACITRACIN OINT 15 GM TUBE TOPICAL SCH (08:31)
[2016-11-23] MEDS: SODIUM CHLORIDE 0.9% FLUSH 10 ML FLUSH IV FLUSH SCH ×2 (08:34→20:41)
[2016-11-23] MEDS: LACTULOSE SYRUP 20 GM/30 ML CUP PO SCH (08:34)
[2016-11-23 12:00] VITALS: BP 101/66; PULSE 58; RESP 18; TEMP 97.1; O2SAT 94
[2016-11-23 16:00] VITALS: BP 119/65; PULSE 63; RESP 18; TEMP 98.1; O2SAT 99
--- NOTE | 2016-11-23 18:19 | HHI.PR ---
Subjective Remarks patient seen on wheelchair denies cp/sob denies fevers/chills pain controlled' Objective Vitals Vital Signs Date Time Temp Pulse Resp B/P Pulse Ox O2 Delivery O2 Flow Rate FiO2 11/23/16 17:21 16 11/23/16 16:31 16 11/23/16 16:00 98.1 63 18 119/65 99 11/23/16 12:00 97.1 58 18 101/66 94 11/23/16 09:37 16 11/23/16 08:00 97.1 59 18 103/63 100 11/23/16 00:00 97.6 82 20 109/68 99 11/22/16 20:00 99.3 79 20 130/68 97 I/O 11/22/16 11/22/16 11/22/16 11/23/16 11/23/16 11/23/16 07:00 15:00 23:00 07:00 15:00 23:00 Intake Total 480 ml 1200 ml 240 ml 360 ml 1200 ml Output Total 700 ml 1000 ml 1100 ml Balance -220 ml 1200 ml -760 ml -740 ml 1200 ml Intake Oral 480 ml 1200 ml 240 ml 360 ml 1200 ml Output Urine Total 700 ml 1000 ml 1100 ml Drainage Total 0 ml 0 ml 0 ml # Voids 5 6 # Bowel Movements 0 1 0 Result Diagram: 11/22/1643 11/22/16 0743 Objective Remarks GENERAL: NAD, A&Ox3 HEAD: Normocephalic. NECK: Supple, trachea midline. No lymphadenopathy. EYES: No scleral icterus. No injection or drainage. CARDIOVASCULAR: Regular rate and rhythm without murmurs, gallops, or rubs. RESPIRATORY: Breath sounds equal bilaterally. No accessory muscle use. GASTROINTESTINAL: Abdomen soft, non-tender, nondistended. MUSCULOSKELETAL: No cyanosis, or edema. Right lower leg bandaged with external fixation in place. Left lower and upper leg bandaged SKIN: Warm and dry. NEURO: No focal neurological deficitis. Procedures 1.s/p I&D with exfix application bilateral tibias s/p wound vac application left tibia 2.With the assistance of RN, under sterile technique the avulsed skin of the right middle finger was clipped. No bleeding noted. Patient gave consent 3.Open reduction internal fixation of right distal tibia and fibula fractures Nonoperative treatment left tibial plateau fracture Irrigation and debridement of left tibia shaft fracture, removal external fixation, soleus muscle rotational flap, intramedullary nail fixation left tibia , application of wound VAC dressing A/P Problem List: (1) Fracture of tibia, left, open ICD Code: S82.202B Status: Acute (2) Fracture of tibia, right, open ICD Code: S82.201B Status: Acute Assessment and Plan 61-year-old male admitted secondary to bilateral leg trauma after car fell on his legs while he was working on. Open fractures were present bilaterally. Bilateral open tibia-fibula fractures Left tibial plateau fracture Open fractures have been surgically repaired, right side has external fixation Determination of need for transfer to [facility] is in process Patient doing well postop here today Continue DVT prophylaxis Continue wound VAC over left leg as per orthopedic surgery recommendations. Appreciate orthopedic surgery recommendations and efforts. Patient was started on Oramorph initially at 15 mg by mouth twice a day which was increased to 30 mg by mouth twice a day on 11/18/16 due to uncontrolled pain. Patient was also started on [place] and Dilaudid IV for breakthrough pain. 11/22 pain seems to be better controlled. Continue pain management as above. 11/23 for wound vanc change in am as per Dr Gillis. Acute blood loss anemia Related to blood loss Status post transfusion of 2 units of packed red blood cells in 11/12/16. Continue to monitor CBC and hemoglobin as well as hematocrit which have been stable. Coronary artery disease Seems stable. The patient is asymptomatic. Continue beta gil, MARGIE inhibitor, and statin 11/22 Continue to hold MARGIE inhibitor Hypertension Antihypertensive held due to hypotension. Narcotics seem to have a depressive affect on this patient, however blood pressure has much improved after the patient was taken off IV morphine 11/22 Resume propanolol at a lower dose - 40 mg by mouth twice a day instead of 80 mg by mouth twice a day with holding parameters, continue to monitor vital signs. Diabetes mellitus type 2 Blood sugar seems to be stable. Continue SSI with insulin NovoLog. Continue to monitor Accu-Cheks. Continue with diabetic diet Alcohol abuse AST mildly elevated, AST within normal range. There is no evidence of alcohol withdrawal at this moment. Alcohol cessation recommended Tobacco abuse Cessation recommended. Chronic essential tremor Hold inderal for now due to hypotension 11/22 Resume Inderal at a lowetr dose and holding parameters since patient tremors are worst.1 Hypotension Resolved after IV normal saline bolus. Continue to monitor vital signs. Hyponatremia Sodium trending up on fluid restriction. 128 -129 - 130. Continue to monitor BMP. Mild Hyperkalemia Potassium trending down on IV fluids. Continue to monitor BMP. K currently 4.5 on 11/22. Leukocytosis Likely reactive. ID consulted, appreciate recommendations. Blood cultures negative to date, continue to monitor. WBC continued to trend down and patient is a febrile without clear signs of infection. GI prophylaxis: PPI No chemoprophylaxis due to blood loss Discharge Planning Patient for wound VAC change on Thursday. Problem Qualifiers (1) Fracture of tibia, left, open: Qualified Code: S82.255B - Type I or II open nondisplaced comminuted fracture of shaft of left tibia, initial encounter (2) Fracture of tibia, right, open: Qualified Code: S82.251C - Type III open displaced comminuted fracture of shaft of right tibia, initial encounter Davis Tao MD Nov 23, 2016 18:19
[2016-11-23] MEDS: traZODone HCL 100 MG TAB PO SCH (20:40)
[2016-11-23] MEDS: PRAVASTATIN SOD 80 MG TAB PO SCH (20:41)
[2016-11-23] MEDS: MAGNESIUM HYDROXIDE SUSP 30 ML CUP PO SCH (20:41)
[2016-11-23 20:55] VITALS: BP 127/77; PULSE 72; RESP 16; TEMP 98.6; O2SAT 98
[2016-11-24] MEDS: HYDROmorphone HCL PF 1 MG/ML VIAL IV PUSH PRN ×3 (00:06→18:35)
[2016-11-24 00:57] VITALS: BP 102/68; PULSE 68; RESP 17; TEMP 98; O2SAT 97
[2016-11-24] MEDS ORDERED: POVIDONE IODINE 5% (ANTISEPSIS KIT) 4 APPLICATIONS EACH NARE PRN (02:45)
[2016-11-24] MEDS ORDERED: INSULIN HUMAN REGULAR 1,000 UNITS/10 ML VIAL SQ PRN (02:45)
[2016-11-24] MEDS ORDERED: LACTATED RINGER'S 1000 ML IV PRN (02:45)
[2016-11-24] MEDS ORDERED: CHLORHEXIDINE GLUCONATE 2 % 1 PACK (2 CLOTHS) TOPICAL PRN (02:45)
[2016-11-24] MEDS ORDERED: SODIUM CHLORID 0.9% 500 ML IV PRN (02:45)
[2016-11-24 04:50] VITALS: BP 102/64; PULSE 67; RESP 18; TEMP 97.2; O2SAT 98
[2016-11-24] MEDS: ACETAMINOPHEN/HYDROcodone 325 MG/10 MG TAB PO PRN ×4 (05:10→23:50)
[2016-11-24] MEDS: INSULIN ASPART SUPPLEMENTAL SCALE SQ SCH ×4 (07:00→21:00)
--- NOTE | 2016-11-24 07:11 | PD.ORT.PN ---
Subjective Subjective Remarks Pain controlled Objective Vitals Vital Signs Date Time Temp Pulse Resp B/P Pulse Ox O2 Delivery O2 Flow Rate FiO2 11/24/16 04:50 97.2 67 18 102/64 98 11/24/16 00:57 98.0 68 17 102/68 97 11/23/16 20:55 98.6 72 16 127/77 98 11/23/16 17:21 16 11/23/16 16:31 16 11/23/16 16:00 98.1 63 18 119/65 99 11/23/16 12:00 97.1 58 18 101/66 94 11/23/16 09:37 16 11/23/16 08:00 97.1 59 18 103/63 100 I/O 11/23/16 11/23/16 11/23/16 11/24/16 11/24/16 11/24/16 06:59 14:59 22:59 06:59 14:59 22:59 Intake Total 360 ml 1200 ml 480 ml 0 ml Output Total 1100 ml 0 ml Balance -740 ml 1200 ml 480 ml 0 ml Intake Oral 360 ml 1200 ml 480 ml 0 ml Output Urine Total 1100 ml Drainage Total 0 ml 0 ml # Voids 6 2 2 # Bowel Movements 0 0 0 Result Diagram: 11/22/16 0743 11/22/16 0743 Imaging Last 24 hours Impressions Pelvis X-Ray 11/07/16 1355 Signed Impressions: Service Date/Time: Monday, November 07, 2016 13:34 - CONCLUSION: No acute disease. Behzad Finch Jr., MD Chest X-Ray 11/07/16 1355 Signed Impressions: Service Date/Time: Monday, November 07, 2016 13:34 - CONCLUSION: No acute disease. Jca Gonzales MD Objective Remarks sitting up in bed RLE: Dressings clean and dry. intact. NVI with full sensation and motor function. +exfix. pin sites. clean LLE: Wound VAC previously taken down. Soleus muscle flap debrided. Distal end of soleus is dusky but not necrosed. Medial portion of the soleus that had traumatic puncture with tibia had small portion with necrosis. New wound VAC application applied. Good seal. no sensation over medial foot. inability to dorsiflex or flex toes/foot. Assessment & Plan Assessment and Plan 1) Right Open Tibia Fracture s/p exfix revision with ORIF - POD #14 2) Left Open Tibia Fracture s/p Soleus muscle flap with IMN and removal of exfix - POD #14 -NWB BLE -pin care BID right leg -maintain vac left leg -vac settinmmHg, intermittent, 3:1 -xrays right ankle and left tibia -Will plan on vac change bedside on - have Ioban, Xeroform and extra- large wound VAC sponge bedside resume diet Ronald Hatch Jr. Nov 24, 2016 07:11
[2016-11-24 08:00] VITALS: BP 126/68; PULSE 66; RESP 18; TEMP 99.7; O2SAT 96
[2016-11-24] MEDS: PROPRANOLOL HCL 40 MG TAB PO SCH ×2 (08:43→21:47)
[2016-11-24] MEDS: CALCIUM/VITAMIN D 250 MG/125 U TAB PO SCH ×3 (08:43→16:36)
[2016-11-24] MEDS: GABAPENTIN 300 MG CAP PO SCH ×3 (08:43→16:36)
[2016-11-24] MEDS: THIAMINE HCL 100 MG TAB PO SCH (08:43)
[2016-11-24] MEDS: MORPHINE SULFATE 15 MG CONTROLLED RELEASE TAB PO SCH ×2 (08:44→21:47)
[2016-11-24] MEDS: PANTOPRAZOLE SOD 40 MG DELAYED RELEASE TAB PO SCH (08:44)
[2016-11-24] MEDS: ASPIRIN 81 MG CHEW TAB CHEW SCH (08:44)
[2016-11-24] MEDS: FERROUS SULFATE 325 MG (65 MG ELEMENTAL IRON) TAB PO SCH (08:44)
[2016-11-24] MEDS: NYSTATIN 100,000 U/GM PWD 15 GM BTL TOPICAL SCH ×2 (08:48→21:48)
[2016-11-24] MEDS: DOCUSATE SODIUM 50 MG/SENNA 8.6 MG TAB PO SCH ×2 (08:48→21:46)
[2016-11-24] MEDS: SODIUM CHLORIDE 0.9% FLUSH 10 ML FLUSH IV FLUSH SCH ×2 (08:48→21:47)
[2016-11-24] MEDS: NEOMYCIN/POLYMYXIN/BACITRACIN OINT 15 GM TUBE TOPICAL SCH (08:48)
[2016-11-24] MEDS: LACTULOSE SYRUP 20 GM/30 ML CUP PO SCH (08:48)
[2016-11-24 09:25] LABS: HEMATOCRIT 33.2 % (39.0-51.0); MEAN CELL VOLUME 93.3 FL (80.0-100.0); MEAN CORPUSCULAR HEMOGLOBIN 31.7 PG (27.0-34.0); MEAN CORPUSCULAR HGB CONC 33.9 % (32.0-36.0); PLATELET COUNT 483 TH/MM3 (150-450); RED BLOOD COUNT 3.56 MIL/MM3 (4.50-5.90); RED CELL DISTRIBUTION WIDTH 13.9 % (11.6-17.2); REVIEW FLAG FINAL; WHITE BLOOD COUNT 14.1 TH/MM3 (4.0-11.0)
[2016-11-24 09:31] LABS: APTT (PATIENT) 28.2 SEC (24.3-30.1); PROTHROMBIN TIME - PATIENT 10.6 SEC (9.8-11.6)
[2016-11-24 10:08] LABS: BICARBONATE 26.2 MEQ/L (21.0-32.0); POTASSIUM 4.3 MEQ/L (3.5-5.1)
--- NOTE | 2016-11-24 10:41 | RADRPT ---
EXAM DATE/TIME: 11/24/2016 10:06 [facility] COMPARISON: TIBIA/FIBULA RIGHT (AP/LAT), November 07, 2016, 13:34. TIBIA/FIBULA LEFT (AP/LAT), November 07, 2016, 13:34. TIBIA/FIBULA LEFT (AP/LAT), November 10, 2016, 10:07. INDICATIONS : Post op left tibia fracture. MEDICAL HISTORY : None. SURGICAL HISTORY : ORIF left tibia ENCOUNTER: Subsequent ACUITY: 2 weeks PAIN SCORE: 8/10 LOCATION: Left tibia FINDINGS: Two view examination of the left tibia again demonstrates postsurgical changes following ORIF. A tibi al intramedullary mariano is in stable position. Fracture fragment alignment including displaced fibular fractures are stable. There are no erosive changes or significant periosteal reaction. A mildly displaced avulsion fracture is identified involving the lateral tibial plateau. CONCLUSION: 1. Mildly displaced lateral tibial plateau fracture which is not clearly evident on the previous stud ies. 2. Otherwise stable left tibia status post ORIF. 3. Wound VAC remains in place. Dex Wild MD on November 24, 2016 at 10:35 Board Certified Radiologist. This report was verified electronically.
--- NOTE | 2016-11-24 10:44 | RADRPT ---
EXAM DATE/TIME: 11/24/2016 10:08 [facility] COMPARISON: ANKLE RIGHT LIMITED (AP&LAT), November 10, 2016, 10:07. INDICATIONS : Post op right ankle. MEDICAL HISTORY : None. SURGICAL HISTORY : ORIF and ex-fix right ankle ENCOUNTER: Subsequent ACUITY: 2 weeks PAIN SCORE: 8/10 LOCATION: Right ankle FINDINGS: Three view exam was performed of the right ankle. Postsurgical changes following ORIF and placement o f an external fixation device are again noted. Distal left fibular and tibial screws are in stable po sition. There is no significant change in fracture fragment alignment. Ankle mortise remains well maintained. CONCLUSION: Stable satisfactory appearance of the right ankle as described. Dex Wild MD on November 24, 2016 at 10:40 Board Certified Radiologist. This report was verified electronically.
[2016-11-24 12:00] VITALS: BP 92/55; PULSE 62; RESP 18; TEMP 98.2; O2SAT 95
[2016-11-24 16:00] VITALS: BP 109/56; PULSE 57; RESP 18; TEMP 98.2; O2SAT 94
[2016-11-24] MEDS: ONDANSETRON HCL 4 MG/2 ML VIAL IV PRN ×2 (16:15→21:48)
--- NOTE | 2016-11-24 16:26 | HHI.PR ---
Subjective Remarks pain controlled denies fevers/chills denies diarrhea denies cough had a Tmax of 99.7 Objective Vitals Vital Signs Date Time Temp Pulse Resp B/P Pulse Ox O2 Delivery O2 Flow Rate FiO2 11/24/16 16:00 98.2 57 18 109/56 94 11/24/16 12:00 98.2 62 18 92/55 95 11/24/16 08:00 99.7 66 18 126/68 96 11/24/16 04:50 97.2 67 18 102/64 98 11/24/16 00:57 98.0 68 17 102/68 97 11/23/16 20:55 98.6 72 16 127/77 98 11/23/16 17:21 16 11/23/16 16:31 16 I/O 11/23/16 11/23/16 11/23/16 11/24/16 11/24/16 11/24/16 07:00 15:00 23:00 07:00 15:00 23:00 Intake Total 360 ml 1200 ml 480 ml 0 ml 600 ml Output Total 1100 ml 0 ml 0 ml 800 ml Balance -740 ml 1200 ml 480 ml 0 ml -200 ml Intake Oral 360 ml 1200 ml 480 ml 0 ml 600 ml Output Urine Total 1100 ml 800 ml Drainage Total 0 ml 0 ml 0 ml # Voids 6 2 2 # Bowel Movements 0 0 0 Result Diagram: 11/24/16 0858 11/24/16 0858 Imaging Last Impressions Tibia/Fibula X-Ray 11/24/16 0000 Signed Impressions: Service Date/Time: Thursday, November 24, 2016 10:06 - CONCLUSION: 1. Mildly displaced lateral tibial plateau fracture which is not clearly evident on the previous studies. 2. Otherwise stable left tibia status post ORIF. 3. Wound VAC remains in place. Dex Wild MD Ankle X-Ray 11/24/16 0000 Signed Impressions: Service Date/Time: Thursday, November 24, 2016 10:08 - CONCLUSION: Stable satisfactory appearance of the right ankle as described. Dex Wild MD Chest X-Ray 11/20/16 0000 Signed Impressions: Service Date/Time: November 17:08 - CONCLUSION: 1. No acute abnormality or significant interval change. Sukhi Stevens MD Pelvis X-Ray 11/07/16 9547 Signed Impressions: Service Date/Time: Monday, November 07, 2016 13:34 - CONCLUSION: No acute disease. Behzad Finch Jr., MD Objective Remarks GENERAL: NAD, A&Ox3 HEAD: Normocephalic. NECK: Supple, trachea midline. No lymphadenopathy. EYES: No scleral icterus. No injection or drainage. CARDIOVASCULAR: Regular rate and rhythm without murmurs, gallops, or rubs. RESPIRATORY: Breath sounds equal bilaterally. No accessory muscle use. GASTROINTESTINAL: Abdomen soft, non-tender, nondistended. MUSCULOSKELETAL: No cyanosis, or edema. Right lower leg bandaged with external fixation in place. Left lower and upper leg bandaged SKIN: Warm and dry. NEURO: No focal neurological deficitis. Procedures 1.s/p I&D with exfix application bilateral tibias s/p wound vac application left tibia 2.With the assistance of RN, under sterile technique the avulsed skin of the right middle finger was clipped. No bleeding noted. Patient gave consent 3.Open reduction internal fixation of right distal tibia and fibula fractures Nonoperative treatment left tibial plateau fracture Irrigation and debridement of left tibia shaft fracture, removal external fixation, soleus muscle rotational flap, intramedullary nail fixation left tibia , application of wound VAC dressing Medications and IVs Current Medications Medications (Trade) Dose Ordered Sig/Milagro Route Start Time Stop Time Status Last Admin (NS Flush) 2 ml UNSCH PRN IV FLUSH 11/07/16 14:30 11/18/16 11:14 (NS Flush) 2 ml BID IV FLUSH 11/07/16 21:00 11/24/16 08:48 (Zofran Inj) 4 mg Q6H PRN IV 11/07/16 14:30 11/24/16 16:15 (Narcan Inj) 0.4 mg UNSCH PRN IV 11/07/16 14:30 (Tylenol) 650 mg Q4H PRN PO 11/08/16 08:15 (Tums Chew) 1,000 mg TID PRN CHEW 11/08/16 08:15 11/15/16 14:16 (D50w (Vial) Inj) 50 ml UNSCH PRN IV 11/08/16 08:15 (Glucagon Inj) 1 mg UNSCH PRN OTHER 11/08/16 08:15 (Vasotec Inj) 1.25 mg Q6H PRN IV 11/08/16 08:15 (Catapres) 0.1 mg Q6H PRN PO 11/08/16 08:15 (Aspirin Chew) 81 mg DAILY CHEW 11/08/16 12:45 11/24/16 08:44 (Ferrous Sulfate) 325 mg DAILY PO 11/08/16 12:45 11/24/16 08:44 (Prinivil) 25 mg DAILY PO 11/08/16 12:45 Hold 11/18/16 09:59 (Nitrostat Sl) 0.4 mg Q6HR PRN SL 11/08/16 12:45 (Protonix) 40 mg DAILY PO 11/08/16 12:45 11/24/16 08:44 (Pravachol) 80 mg HS PO 11/08/16 21:00 11/23/16 20:41 (Pill Splitter) 1 ea UNSCH PRN OTHER 11/08/16 12:45 (Elke-Colace) 1 tab BID PO 11/08/16 12:45 11/23/16 20:41 (Vitamin B1) 100 mg DAILY PO 11/09/16 09:00 11/24/16 08:43 (Romazicon Inj) 0.2 mg Q1M PRN IV PUSH 11/08/16 13:00 (Ativan) 1 mg Q4H PRN PO 11/08/16 13:00 (Ativan Inj) 1 mg Q4H PRN IV PUSH 11/08/16 13:00 (Ativan) 2 mg Q2H PRN PO 11/08/16 13:00 (Ativan Inj) 2 mg Q2H PRN IV PUSH 11/08/16 13:00 (Ativan Inj) 2 mg Q1H PRN IV PUSH 11/08/16 13:00 (Ativan Inj) 2 mg Q15M PRN IV PUSH 11/08/16 13:00 (Haldol Inj) 2 mg Q15M PRN IM 11/08/16 13:00 (Neosporin Oint) 1 applic DAILY TOPICAL 11/10/16 09:00 11/23/16 08:31 (Lactulose Liq) 30 ml DAILY PO 11/10/16 09:00 11/20/16 08:25 (Milk Of Magnesia Liq) 30 ml HS PO 11/10/16 21:00 8/6/17 20:41 (Lovenox Inj) 30 mg Q12H SQ 11/11/16 00:00 Hold 11/11/16 23:13 (Oscal-D 250-125) 250 mg TID PO 11/10/16 13:00 11/24/16 16:36 (Ambien) 5 mg HS PRN PO 11/14/16 11:00 (Desyrel) 100 mg HS PO 11/14/16 21:00 11/23/16 20:40 (Neurontin) 600 mg TID PO 11/16/16 13:00 11/24/16 16:36 (Oramorph Sr) 30 mg Q12HR PO 11/18/16 21:00 11/24/16 08:44 (Mycostatin Powder) 1 applic Q12HR TOPICAL 11/19/16 21:00 11/23/16 20:41 ([place] 7.5-325 Mg) 1 tab Q4H PRN PO 11/20/16 00:45 ([place] 10-325 Mg) 1 tab Q4H PRN PO 11/20/16 00:45 11/24/16 16:37 (Dilaudid Pf Inj) 1 mg Q4H PRN IV PUSH 11/20/16 00:45 11/24/16 06:22 Propranolol HCl 40 mg 40 mg Q12HR PO 11/22/16 21:00 11/24/16 08:43 Lactated Ringer's 1,000 ml @ 30 mls/hr Q24H PRN IV 11/24/16 02:45 11/27/16 02:44 (NS 500 ml Inj) 500 ml @ 30 mls/hr [id number] PRN IV 11/24/16 02:45 11/27/16 02:44 Urinary Catheter: No Vascular Central Line Catheter: No A/P Problem List: (1) Fracture of tibia, left, open ICD Code: S82.202B Status: Acute (2) Fracture of tibia, right, open ICD Code: S82.201B Status: Acute Assessment and Plan 61-year-old male admitted secondary to bilateral leg trauma after car fell on his legs while he was working on. Open fractures were present bilaterally. Bilateral open tibia-fibula fractures Left tibial plateau fracture Open fractures have been surgically repaired, right side has external fixation Determination of need for transfer to [facility] is in process Patient doing well postop here today Continue DVT prophylaxis Continue wound VAC over left leg as per orthopedic surgery recommendations. Appreciate orthopedic surgery recommendations and efforts. Patient was started on Oramorph initially at 15 mg by mouth twice a day which was increased to 30 mg by mouth twice a day on 11/18/16 due to uncontrolled pain. Patient was also started on [place] and Dilaudid IV for breakthrough pain. Continue pain management - for wound vac change on . Acute blood loss anemia Related to blood loss Status post transfusion of 2 units of packed red blood cells in 11/12/16. Continue to monitor CBC and hemoglobin as well as hematocrit which have been stable. Coronary artery disease Seems stable. The patient is asymptomatic. Continue beta gil, MARGIE inhibitor, and statin 11/22 Continue to hold MARGIE inhibitor Hypertension Antihypertensive held due to hypotension. Narcotics seem to have a depressive affect on this patient, however blood pressure has much improved after the patient was taken off IV morphine 11/22 Resume propanolol at a lower dose - 40 mg by mouth twice a day instead of 80 mg by mouth twice a day with holding parameters, continue to monitor vital signs. Diabetes mellitus type 2 Blood sugar seems to be stable. Continue SSI with insulin NovoLog. Continue to monitor Accu-Cheks. Continue with diabetic diet Alcohol abuse AST mildly elevated, AST within normal range. There is no evidence of alcohol withdrawal at this moment. Alcohol cessation recommended Tobacco abuse Cessation recommended. Chronic essential tremor Hold inderal for now due to hypotension Continue Inderal with holding parameters. Hypotension Resolved after IV normal saline bolus. Continue to monitor vital signs. Hyponatremia Sodium trending up on fluid restriction. 128 -129 - 130 - 132. Continue to monitor BMP. Mild Hyperkalemia Treated w Iv fluids. now resolved. Continue to monitor BMP. Leukocytosis Likely reactive. ID consulted, appreciate recommendations. Blood cultures negative to date, continue to monitor. 11/24 WBC stable at 14 K - no fevers. continue to monitor WBC. GI prophylaxis: PPI No chemoprophylaxis due to blood loss Discharge Planning Patient for wound VAC change on . Problem Qualifiers (1) Fracture of tibia, left, open: Qualified Code: S82.255B - Type I or II open nondisplaced comminuted fracture of shaft of left tibia, initial encounter (2) Fracture of tibia, right, open: Qualified Code: S82.251C - Type III open displaced comminuted fracture of shaft of right tibia, initial encounter Davis Tao MD Nov 24, 2016 16:26
[2016-11-24 20:00] VITALS: BP 106/60; PULSE 68; RESP 18; TEMP 98.5; O2SAT 100
[2016-11-24] MEDS: PRAVASTATIN SOD 80 MG TAB PO SCH (21:46)
[2016-11-24] MEDS: MAGNESIUM HYDROXIDE SUSP 30 ML CUP PO SCH (21:47)
[2016-11-24] MEDS: traZODone HCL 100 MG TAB PO SCH (23:50)
[2016-11-25] VITALS: BP 108/64; PULSE 62; RESP 19; TEMP 97.9; O2SAT 98
[2016-11-25] MEDS: ACETAMINOPHEN/HYDROcodone 325 MG/10 MG TAB PO PRN ×3 (03:48→15:22)
[2016-11-25 04:00] VITALS: BP 109/63; PULSE 61; RESP 20; TEMP 97.8; O2SAT 97
[2016-11-25] MEDS: INSULIN ASPART SUPPLEMENTAL SCALE SQ SCH ×4 (07:00→21:00)
--- NOTE | 2016-11-25 07:00 | RADRPT ---
EXAM DATE/TIME: 11/25/2016 06:44 [facility] COMPARISON: TIBIA/FIBULA LEFT (AP/LAT), November 24, 2016, 10:06. INDICATIONS : Follow up on left tibial surgery. MEDICAL HISTORY : None. SURGICAL HISTORY : None. ENCOUNTER: Subsequent ACUITY: 3 days PAIN SCORE: 4/10 LOCATION: Left lower extremity FINDINGS: Antegrade intramedullary mariano is noted at the proximal tibia with 2 proximal interlocking screws. Ther e are skin giuseppe at the medial aspect of the left lower leg and suprapatellar region. There is a fr acture deformity of the lateral tibial plateau again seen. CONCLUSION: Post surgical changes are identified. Mumtaz Cornelius MD on November 25, 2016 at 6:57 Board Certified Radiologist. This report was verified electronically.
[2016-11-25 08:00] VITALS: BP 103/58; PULSE 58; RESP 18; TEMP 97.5; O2SAT 97
[2016-11-25] MEDS: GABAPENTIN 300 MG CAP PO SCH ×3 (08:24→18:06)
[2016-11-25] MEDS: THIAMINE HCL 100 MG TAB PO SCH (08:25)
[2016-11-25] MEDS: DOCUSATE SODIUM 50 MG/SENNA 8.6 MG TAB PO SCH ×2 (08:25→22:37)
[2016-11-25] MEDS: PROPRANOLOL HCL 40 MG TAB PO SCH ×2 (08:25→22:37)
[2016-11-25] MEDS: ASPIRIN 81 MG CHEW TAB CHEW SCH (08:25)
[2016-11-25] MEDS: PANTOPRAZOLE SOD 40 MG DELAYED RELEASE TAB PO SCH (08:25)
[2016-11-25] MEDS: FERROUS SULFATE 325 MG (65 MG ELEMENTAL IRON) TAB PO SCH (08:25)
[2016-11-25] MEDS: CALCIUM/VITAMIN D 250 MG/125 U TAB PO SCH ×3 (08:25→18:00)
[2016-11-25] MEDS: MORPHINE SULFATE 15 MG CONTROLLED RELEASE TAB PO SCH ×2 (08:25→22:37)
[2016-11-25] MEDS: LACTULOSE SYRUP 20 GM/30 ML CUP PO SCH (08:27)
[2016-11-25] MEDS: SODIUM CHLORIDE 0.9% FLUSH 10 ML FLUSH IV FLUSH SCH ×2 (08:28→22:39)
[2016-11-25] MEDS: NEOMYCIN/POLYMYXIN/BACITRACIN OINT 15 GM TUBE TOPICAL SCH (08:30)
[2016-11-25] MEDS: NYSTATIN 100,000 U/GM PWD 15 GM BTL TOPICAL SCH ×2 (08:30→22:38)
[2016-11-25] MEDS: ONDANSETRON HCL 4 MG/2 ML VIAL IV PRN (10:50)
[2016-11-25 12:00] VITALS: BP 94/62; PULSE 68; RESP 18; TEMP 98.1; O2SAT 95
[2016-11-25 12:27] LABS: BICARBONATE 28.6 MEQ/L (21.0-32.0)
[2016-11-25 16:00] VITALS: BP 102/58; PULSE 64; RESP 18; TEMP 97.6; O2SAT 97
[2016-11-25] MEDS ORDERED: PROCHLORPERAZINE INJ 10 MG/2 ML VIAL IV PUSH PRN (16:15)
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
[2016-11-25] MEDS ORDERED: SODIUM CHLORID 0.9% 500 ML INJ 500 ML IV ONE (17:00)
[2016-11-25] MEDS: MAGNESIUM HYDROXIDE SUSP 30 ML CUP PO SCH ×2 (21:00→22:37)
[2016-11-25] MEDS: PRAVASTATIN SOD 80 MG TAB PO SCH (22:37)
[2016-11-25] MEDS: traZODone HCL 100 MG TAB PO SCH (22:37)
[2016-11-25 22:45] VITALS: BP 123/74; PULSE 63; RESP 20; TEMP 98.4; O2SAT 99
[2016-11-26] VITALS: BP 101/63; PULSE 63; RESP 17; TEMP 98.9; O2SAT 98
[2016-11-26] MEDS: ACETAMINOPHEN/HYDROcodone 325 MG/10 MG TAB PO PRN ×5 (03:35→22:24)
[2016-11-26 04:00] VITALS: BP 102/60; PULSE 59; RESP 20; TEMP 96.4; O2SAT 98
[2016-11-26] MEDS: INSULIN ASPART SUPPLEMENTAL SCALE SQ SCH ×4 (05:58→20:59)
--- NOTE | 2016-11-26 07:16 | PD.ORT.PN ---
Subjective Subjective Remarks Pain controlled Objective Vitals Vital Signs Date Time Temp Pulse Resp B/P Pulse Ox O2 Delivery O2 Flow Rate FiO2 11/26/16 04:00 96.4 59 20 102/60 98 11/26/16 00:00 98.9 63 17 101/63 98 11/25/16 22:45 98.4 63 20 123/74 99 11/25/16 18:53 Room Air 11/25/16 16:00 97.6 64 18 102/58 97 11/25/16 12:00 98.1 68 18 94/62 95 11/25/16 08:00 97.5 58 18 103/58 97 I/O 11/25/16 11/25/16 11/25/16 11/26/16 11/26/16 11/26/16 07:00 15:00 23:00 07:00 15:00 23:00 Intake Total 480 ml 971 ml 480 ml Output Total 1225 ml 20 ml 800 ml Balance -745 ml 951 ml -320 ml Intake Oral 480 ml 650 ml 480 ml IV Total 321 ml Output Urine Total 1225 ml 800 ml Drainage Total 20 ml # Voids 4 Result Diagram: 11/24/16 0858 11/25/16 1134 Imaging Last 24 hours Impressions Pelvis X-Ray 11/07/16 1355 Signed Impressions: Service Date/Time: Monday, November 07, 2016 13:34 - CONCLUSION: No acute disease. Behzad Finch Jr., MD Chest X-Ray 11/07/16 1355 Signed Impressions: Service Date/Time: Monday, November 07, 2016 13:34 - CONCLUSION: No acute disease. Jac Gonzales MD Objective Remarks sitting up in bed RLE: Dressings clean and dry. intact. NVI with full sensation and motor function. +exfix. pin sites. clean LLE: Wound VAC intact. Good seal. no sensation over medial foot. inability to dorsiflex or flex toes/foot. Assessment & Plan Assessment and Plan 1) Right Open Tibia Fracture s/p exfix revision with ORIF - POD #15 2) Left Open Tibia Fracture s/p Soleus muscle flap with IMN and removal of exfix - POD #15 -NWB BLE -pin care BID right leg -maintain vac left leg -vac settinmmHg, intermittent, 3:1 -xrays right ankle and left tibia -Resume diet -Nothing by mouth after midnight with planned surgery tomorrow morning with Dr. Stew Hatch,Ronald CLEARY Nov 26, 2016 07:16
[2016-11-26 08:00] VITALS: BP 104/61; PULSE 95; RESP 17; TEMP 97; O2SAT 98
[2016-11-26 08:20] LABS: AUTOMATED NEUTROPHIL # 8.7 TH/MM3 (1.8-7.7); BASOPHIL # 0.1 TH/MM3 (0-0.2); BASOPHIL % 0.9 % (0.0-2.0); EOSINOPHIL # 0.1 TH/MM3 (0-0.4); EOSINOPHIL % 1.3 % (0.0-4.0); HEMATOCRIT 32.8 % (39.0-51.0); HEMO FLAGS DIFF FINAL; LYMPH % 14.9 % (9.0-44.0); LYMPHOCYTE # 1.8 TH/MM3 (1.0-4.8); MEAN CELL VOLUME 94.7 FL (80.0-100.0); MEAN CORPUSCULAR HEMOGLOBIN 31.8 PG (27.0-34.0); MEAN CORPUSCULAR HGB CONC 33.5 % (32.0-36.0); MONO % 9.6 % (0.0-8.0); NEUT % 73.3 % (16.0-70.0); PLATELET COUNT 373 TH/MM3 (150-450); RED BLOOD COUNT 3.46 MIL/MM3 (4.50-5.90); RED CELL DISTRIBUTION WIDTH 13.7 % (11.6-17.2); WHITE BLOOD COUNT 11.9 TH/MM3 (4.0-11.0)
[2016-11-26] MEDS: DOCUSATE SODIUM 50 MG/SENNA 8.6 MG TAB PO SCH ×2 (08:29→20:12)
[2016-11-26] MEDS: GABAPENTIN 300 MG CAP PO SCH ×3 (08:29→17:12)
[2016-11-26] MEDS: ASPIRIN 81 MG CHEW TAB CHEW SCH (08:29)
[2016-11-26] MEDS: THIAMINE HCL 100 MG TAB PO SCH (08:29)
[2016-11-26] MEDS: CALCIUM/VITAMIN D 250 MG/125 U TAB PO SCH ×3 (08:29→17:12)
[2016-11-26] MEDS: PROPRANOLOL HCL 40 MG TAB PO SCH ×2 (08:29→20:13)
[2016-11-26] MEDS: FERROUS SULFATE 325 MG (65 MG ELEMENTAL IRON) TAB PO SCH (08:29)
[2016-11-26] MEDS: LACTULOSE SYRUP 20 GM/30 ML CUP PO SCH (08:31)
[2016-11-26] MEDS: PANTOPRAZOLE SOD 40 MG DELAYED RELEASE TAB PO SCH (08:34)
[2016-11-26 08:38] LABS: ALT (GPT) 18 U/L (12-78); ANION GAP 7 MEQ/L (5-15); AST (GOT) 23 U/L (15-37); BICARBONATE 31.6 MEQ/L (21.0-32.0); BLOOD UREA NITROGEN 9 MG/DL (7-18); CHLORIDE 99 MEQ/L (98-107); GLOMERULAR FILTRATION RATE 111 ML/MIN (>89); POTASSIUM 4.2 MEQ/L (3.5-5.1); SODIUM (NA) 138 MEQ/L (136-145)
[2016-11-26] MEDS: SODIUM CHLORIDE 0.9% FLUSH 10 ML FLUSH IV FLUSH SCH ×2 (08:38→20:14)
[2016-11-26 08:40] LABS: ALKALINE PHOSPHATASE 104 U/L (45-117); TOTAL BILIRUBIN ADULT 0.3 MG/DL (0.2-1.0)
[2016-11-26] MEDS: NYSTATIN 100,000 U/GM PWD 15 GM BTL TOPICAL SCH ×2 (09:00→21:00)
[2016-11-26] MEDS: NEOMYCIN/POLYMYXIN/BACITRACIN OINT 15 GM TUBE TOPICAL SCH (09:00)
[2016-11-26] MEDS: MORPHINE SULFATE 15 MG CONTROLLED RELEASE TAB PO SCH ×2 (10:47→20:13)
[2016-11-26 12:00] VITALS: BP 134/77; PULSE 58; PULSE 98; RESP 17; TEMP 96.9; O2SAT 100
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
[2016-11-26 16:00] VITALS: BP 105/59; PULSE 58; RESP 17; TEMP 97.4; O2SAT 100
[2016-11-26 20:00] VITALS: BP 122/67; PULSE 63; RESP 18; TEMP 97.3; O2SAT 100
[2016-11-26] MEDS: MAGNESIUM HYDROXIDE SUSP 30 ML CUP PO SCH (20:12)
[2016-11-26] MEDS: PRAVASTATIN SOD 80 MG TAB PO SCH (20:12)
[2016-11-26] MEDS: traZODone HCL 100 MG TAB PO SCH (20:12)
[2016-11-27] VITALS: BP 107/60; PULSE 63; RESP 18; TEMP 98.7; O2SAT 98
[2016-11-27] MEDS: ACETAMINOPHEN/HYDROcodone 325 MG/10 MG TAB PO PRN ×2 (03:15→14:57)
[2016-11-27] MEDS: HYDROmorphone HCL PF 1 MG/ML VIAL IV PUSH PRN (06:27)
[2016-11-27] MEDS: INSULIN ASPART SUPPLEMENTAL SCALE SQ SCH ×4 (06:44→20:04)
[2016-11-27 08:00] VITALS: BP 139/80; PULSE 60; RESP 17; TEMP 98.5; O2SAT 95
[2016-11-27] MEDS: NYSTATIN 100,000 U/GM PWD 15 GM BTL TOPICAL SCH ×2 (09:00→20:05)
--- NOTE | 2016-11-27 09:35 | PD.ORT.PN ---
Subjective Subjective Remarks Pain controlled Objective Vitals Vital Signs Date Time Temp Pulse Resp B/P Pulse Ox O2 Delivery O2 Flow Rate FiO2 11/27/16 08:00 98.5 60 17 139/80 95 11/27/16 00:00 98.7 63 18 107/60 98 11/26/16 20:00 100 Room Air 11/26/16 20:00 97.3 63 18 122/67 100 11/26/16 16:00 97.4 58 17 105/59 100 11/26/16 12:00 96.9 58 17 134/77 100 I/O 11/26/16 11/26/16 11/26/16 11/27/16 11/27/16 11/27/16 06:59 14:59 22:59 06:59 14:59 22:59 Intake Total 600 ml 240 ml 0 ml Output Total 600 ml Balance 0 ml 240 ml 0 ml Intake Oral 600 ml 240 ml 0 ml Output Urine Total 600 ml # Voids 1 1 # Bowel Movements 0 0 0 Result Diagram: 11/26/16 0649 11/26/16 0649 Imaging Last 24 hours Impressions Pelvis X-Ray 11/07/16 1095 Signed Impressions: Service Date/Time: Monday, November 07, 2016 13:34 - CONCLUSION: No acute disease. Behzad Finch Jr., MD Chest X-Ray 11/07/16 9284 Signed Impressions: Service Date/Time: Monday, November 07, 2016 13:34 - CONCLUSION: No acute disease. Jac Gonzales MD Objective Remarks sitting up in bed RLE: Dressings clean and dry. intact. with full sensation and motor function. + exfix. pin sites. clean LLE: Wound VAC intact. Wound VAC taken down and soleus flap is continuing to granulate in over the proximal portion. The distal portion of the muscle does appear to be demarcating with the most distal end failing NVI Good seal. no sensation over medial foot. inability to dorsiflex or flex toes/foot. Assessment & Plan Assessment and Plan 1) Right Open Tibia Fracture s/p exfix revision with ORIF - POD #16 2) Left Open Tibia Fracture s/p Soleus muscle flap with IMN and removal of exfix - POD #16 3) left tibia plateau fracture treated nonoperatively -NWB BLE -pin care BID right leg -maintain vac left leg -vac settinmmHg, intermittent, 3:1 -Resume diet -Nothing by mouth after midnight with planned surgery tomorrow morning with Dr. Stew Hatch,Ronald CLEARY Nov 27, 2016 09:34
[2016-11-27] MEDS: MORPHINE SULFATE 15 MG CONTROLLED RELEASE TAB PO SCH ×2 (09:40→20:03)
[2016-11-27] MEDS: CALCIUM/VITAMIN D 250 MG/125 U TAB PO SCH ×3 (09:40→17:12)
[2016-11-27] MEDS: DOCUSATE SODIUM 50 MG/SENNA 8.6 MG TAB PO SCH ×2 (09:40→20:04)
[2016-11-27] MEDS: LACTULOSE SYRUP 20 GM/30 ML CUP PO SCH (09:40)
[2016-11-27] MEDS: PANTOPRAZOLE SOD 40 MG DELAYED RELEASE TAB PO SCH (09:40)
[2016-11-27] MEDS: PROPRANOLOL HCL 40 MG TAB PO SCH ×2 (09:41→20:04)
[2016-11-27] MEDS: SODIUM CHLORIDE 0.9% FLUSH 10 ML FLUSH IV FLUSH SCH ×2 (09:41→20:04)
[2016-11-27] MEDS: GABAPENTIN 300 MG CAP PO SCH ×3 (09:41→17:12)
[2016-11-27] MEDS: ASPIRIN 81 MG CHEW TAB CHEW SCH (09:41)
[2016-11-27] MEDS: FERROUS SULFATE 325 MG (65 MG ELEMENTAL IRON) TAB PO SCH (09:41)
[2016-11-27] MEDS: THIAMINE HCL 100 MG TAB PO SCH (09:41)
[2016-11-27] MEDS: NEOMYCIN/POLYMYXIN/BACITRACIN OINT 15 GM TUBE TOPICAL SCH (09:45)
[2016-11-27 11:24] VITALS: O2SAT 96
[2016-11-27 12:00] VITALS: BP 114/66; PULSE 62; RESP 17; TEMP 97.5; O2SAT 97
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
[2016-11-27 16:00] VITALS: BP 141/61; PULSE 70; RESP 17; TEMP 97.8; O2SAT 98
[2016-11-27 20:00] VITALS: BP 120/66; PULSE 70; RESP 18; TEMP 98.8; O2SAT 97
[2016-11-27] MEDS: MAGNESIUM HYDROXIDE SUSP 30 ML CUP PO SCH (20:03)
[2016-11-27] MEDS: PRAVASTATIN SOD 80 MG TAB PO SCH (20:03)
[2016-11-27] MEDS: traZODone HCL 100 MG TAB PO SCH (20:04)
[2016-11-28] VITALS: BP 95/52; PULSE 65; RESP 18; TEMP 98.4; O2SAT 97
[2016-11-28] MEDS: ACETAMINOPHEN/HYDROcodone 325 MG/10 MG TAB PO PRN ×4 (00:18→15:46)
[2016-11-28] MEDS: HYDROmorphone HCL PF 1 MG/ML VIAL IV PUSH PRN (02:24)
[2016-11-28 04:00] VITALS: BP 104/62; PULSE 66; RESP 18; TEMP 96.7; O2SAT 98
[2016-11-28] MEDS: PROPRANOLOL HCL 40 MG TAB PO SCH ×2 (06:45→21:26)
[2016-11-28] MEDS: INSULIN ASPART SUPPLEMENTAL SCALE SQ SCH ×4 (07:00→21:24)
[2016-11-28] MEDS ORDERED: GENTAMICIN SULFATE 80 MG/2 ML VIAL ONE (07:18)
[2016-11-28] MEDS ORDERED: ceFAZolin 2 GM PREMIX 50 ML ONE (07:38)
[2016-11-28] MEDS ORDERED: VANCOMYCIN HCL 1000 MG VIAL ONE (07:38)
[2016-11-28] MEDS ORDERED: SODIUM CHLOR 0.9% 250 ML INJ 250 ML ONE (07:39)
--- NOTE | 2016-11-28 07:47 | PD.ORT.PN ---
Subjective Subjective Remarks Pain controlled Objective Vitals Vital Signs Date Time Temp Pulse Resp B/P Pulse Ox O2 Delivery O2 Flow Rate FiO2 11/28/16 05:58 18 11/28/16 04:00 96.7 66 18 104/62 98 11/28/16 02:45 18 11/28/16 00:00 98.4 65 18 95/52 97 11/27/16 21:03 18 11/27/16 20:00 98.8 70 18 120/66 97 11/27/16 16:00 97.8 70 17 141/61 98 11/27/16 12:00 97.5 62 17 114/66 97 11/27/16 11:24 96 21 11/27/16 08:00 98.5 60 17 139/80 95 I/O 11/27/16 11/27/16 11/27/16 11/28/16 11/28/16 11/28/16 07:00 15:00 23:00 07:00 15:00 23:00 Intake Total 0 ml 800 ml 720 ml 0 ml Output Total 2400 ml 700 ml 1000 ml Balance 0 ml -1600 ml 20 ml -1000 ml Intake Oral 0 ml 800 ml 720 ml 0 ml Output Urine Total 2400 ml 700 ml 1000 ml Drainage Total 0 ml 0 ml 0 ml # Voids 1 # Bowel Movements 0 0 0 0 Result Diagram: 11/26/16 0649 11/26/16 0649 Imaging Last 24 hours Impressions Pelvis X-Ray 11/07/16 1355 Signed Impressions: Service Date/Time: Monday, November 07, 2016 13:34 - CONCLUSION: No acute disease. Behzad Finch Jr., MD Chest X-Ray 11/07/16 2502 Signed Impressions: Service Date/Time: Monday, November 07, 2016 13:34 - CONCLUSION: No acute disease. Jac Gonzales MD Objective Remarks sitting up in bed RLE: Dressings clean and dry. intact. with full sensation and motor function. + exfix. pin sites. clean LLE: Wound VAC intact. Good seal. no sensation over medial foot. inability to dorsiflex or flex toes/foot. Assessment & Plan Assessment and Plan 1) Right Open Tibia Fracture s/p exfix revision with ORIF - POD #17 2) Left Open Tibia Fracture s/p Soleus muscle flap with IMN and removal of exfix - POD #17 3) left tibia plateau fracture treated nonoperatively -NWB BLE -pin care BID right leg -maintain vac left leg -vac settinmmHg, intermittent, 3:1 -Nothing by mouth Surgery this morning Ronald Hatch Jr. Nov 28, 2016 07:47
[2016-11-28 08:00] VITALS: BP 107/64; PULSE 59; RESP 19; TEMP 96.8; O2SAT 96
[2016-11-28] MEDS: MORPHINE SULFATE 15 MG CONTROLLED RELEASE TAB PO SCH ×2 (08:50→21:26)
[2016-11-28] MEDS: CALCIUM/VITAMIN D 250 MG/125 U TAB PO SCH ×3 (08:53→17:53)
[2016-11-28] MEDS: ASPIRIN 81 MG CHEW TAB CHEW SCH (08:53)
[2016-11-28] MEDS: GABAPENTIN 300 MG CAP PO SCH ×3 (08:53→17:53)
[2016-11-28] MEDS: FERROUS SULFATE 325 MG (65 MG ELEMENTAL IRON) TAB PO SCH (08:53)
[2016-11-28] MEDS: SODIUM CHLORIDE 0.9% FLUSH 10 ML FLUSH IV FLUSH SCH ×2 (08:53→21:26)
[2016-11-28] MEDS: LACTULOSE SYRUP 20 GM/30 ML CUP PO SCH (08:53)
[2016-11-28] MEDS: THIAMINE HCL 100 MG TAB PO SCH (08:54)
[2016-11-28] MEDS: NYSTATIN 100,000 U/GM PWD 15 GM BTL TOPICAL SCH (08:54)
[2016-11-28] MEDS: PANTOPRAZOLE SOD 40 MG DELAYED RELEASE TAB PO SCH (08:54)
[2016-11-28] MEDS: NEOMYCIN/POLYMYXIN/BACITRACIN OINT 15 GM TUBE TOPICAL SCH (08:54)
[2016-11-28] MEDS: DOCUSATE SODIUM 50 MG/SENNA 8.6 MG TAB PO SCH ×2 (08:54→21:26)
[2016-11-28] MEDS ORDERED: fentaNYL CITRATE 250 MCG/5 ML AMP ONE (10:15)
[2016-11-28] MEDS ORDERED: ceFAZolin INJ 1,000 MG VIAL ONE (10:23)
[2016-11-28] MEDS: LACTATED RINGER'S 1000 ML INJ 1,000 ML IV SCH ×2 (10:59→20:59)
--- NOTE | 2016-11-28 11:06 | PD.OP ---
cc: Salbador Gillis MD Operative Report Date of Surgery: Nov 28, 2016 Preoperative Diagnosis: Open left tibia and fibular fractures with large open wound Postoperative Diagnosis: Same Procedure: Irrigation and debridement of left open tibia fracture with application of wound VAC dressing Anesthesia: Gen. Surgeon: Salbador Gillis Local Hazmat Driver(s): KAMALA Ibarra PA-C The surgical procedure was assisted by my physician instructional assistant. My P.A. presence was necessary throughout this case for the manipulation and positioning of the surgical extremity. My P.A. was assisting me throughout the duration of this procedure. The skill set of a physician instructional assistant was medically necessary to complete this procedure. During the surgical case the neurosurgical nurse was working at the back table and the physician instructional assistant was directly assisting me. Operation and Findings: Mr. Donohue is well-known to me from previous lower extremity surgeries. Informed consent was obtained and operative site was marked. He is brought to operating room. He was given IV sedation and general anesthesia. He received IV antibiotics. Timeout procedure was performed. Left leg was prepped with alcohol followed by Hibiclens and draped usual sterile fashion. Procedure began with debridement of the wound. Skin subcutaneous tissue and fascia were sharply debrided. A small area of the soleus muscle was also debrided. A portion of the anterior tibialis was also debrided. Curettes were used to debride around the tibia. Overall the wound appeared to be healthy with good granulation tissue forming. The wound was now thoroughly irrigated with sterile saline. Next attention was turned to wound VAC dressing. VAC dressing was cut to fit the wound. Xeroform was placed around the skin edges. VAC dressing was now sealed appropriately using Ioban. VAC dressing was set at intermittent 125 mmHg 3 on and 1 off. Patient was awakened and transferred to recovery room in stable condition. Salbador Gillis MD Nov 28, 2016 11:06
--- NOTE | 2016-11-28 11:21 | PD.ORT.PN ---
Subjective Subjective Remarks Pain controlled Objective Vitals Vital Signs Date Time Temp Pulse Resp B/P Pulse Ox O2 Delivery O2 Flow Rate FiO2 11/28/16 08:00 96.8 59 19 107/64 96 11/28/16 05:58 18 11/28/16 04:00 96.7 66 18 104/62 98 11/28/16 02:45 18 11/28/16 00:00 98.4 65 18 95/52 97 11/27/16 21:03 18 11/27/16 20:00 98.8 70 18 120/66 97 11/27/16 16:00 97.8 70 17 141/61 98 11/27/16 12:00 97.5 62 17 114/66 97 11/27/16 11:24 96 21 I/O 11/27/16 11/27/16 11/27/16 11/28/16 11/28/16 11/28/16 07:00 15:00 23:00 07:00 15:00 23:00 Intake Total 0 ml 800 ml 720 ml 0 ml Output Total 2400 ml 700 ml 1000 ml Balance 0 ml -1600 ml 20 ml -1000 ml Intake Oral 0 ml 800 ml 720 ml 0 ml Output Urine Total 2400 ml 700 ml 1000 ml Drainage Total 0 ml 0 ml 0 ml # Voids 1 # Bowel Movements 0 0 0 0 Result Diagram: 11/26/16 0649 11/26/16 0649 Imaging Last 24 hours Impressions Pelvis X-Ray 11/07/16 1355 Signed Impressions: Service Date/Time: Monday, November 07, 2016 13:34 - CONCLUSION: No acute disease. Behzad Finch Jr., MD Chest X-Ray 11/07/16 7779 Signed Impressions: Service Date/Time: Monday, November 07, 2016 13:34 - CONCLUSION: No acute disease. Jac Gonzales MD Objective Remarks sitting up in bed RLE: Dressings clean and dry. intact. with full sensation and motor function. + exfix. pin sites. clean LLE: Wound VAC intact. Good seal. no sensation over medial foot. inability to dorsiflex or flex toes/foot. Assessment & Plan Assessment and Plan 1) Right Open Tibia Fracture s/p exfix revision with ORIF - POD #17 2) Left Open Tibia Fracture s/p Soleus muscle flap with IMN and removal of exfix - POD #17 3) left tibia plateau fracture treated nonoperatively -NWB BLE -pin care BID right leg -maintain vac left leg -vac settinmmHg, intermittent, 3:1 -will plan on vac change Thursday Ronald Hatch Jr. Nov 28, 2016 11:21
[2016-11-28] MEDS ORDERED: DO NOT ADM ANY ANTICOAGULANT DRUGS PRN (11:22)
[2016-11-28] MEDS ORDERED: SENNOSIDES 8.6 MG TAB PO PRN (11:30)
[2016-11-28] MEDS ORDERED: *RESP: ALBUTEROL 2.5 MG/3 ML NEB (PRN) PERIprocedural Use ONLY NEB ONE (11:38)
[2016-11-28] MEDS ORDERED: DEXAMETHASONE SOD PHOS 4 MG/ML VIAL ONE (11:51)
[2016-11-28] MEDS ORDERED: PROPOFOL 200 MG/20 ML AMP IV ONE (12:00)
[2016-11-28] MEDS ORDERED: DEXAMETHASONE SOD PHOS 4 MG/ML VIAL IV ONE (12:00)
[2016-11-28] MEDS ORDERED: ONDANSETRON HCL 4 MG/2 ML VIAL IV PUSH ONE (12:00)
[2016-11-28] MEDS ORDERED: ePHEDrine/NS 25 MG/5 ML SYR IV ONE (12:00)
[2016-11-28] MEDS ORDERED: *morphine SULFATE 8 MG/ML PERIprocedure ONLY ONE (12:01)
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
[2016-11-28] MEDS: NYSTATIN 100,000 UNIT/GM CREAM 15 GM TOPICAL SCH ×2 (15:39→17:57)
[2016-11-28] MEDS: ceFAZolin 2 GM PREMIX 50 ML IV SCH (15:45)
[2016-11-28 16:00] VITALS: BP 114/82; PULSE 70; RESP 18; TEMP 95.6; O2SAT 96
[2016-11-28 20:20] VITALS: BP 120/71; PULSE 66; RESP 18; TEMP 97.3; O2SAT 97
[2016-11-28] MEDS: PRAVASTATIN SOD 80 MG TAB PO SCH (21:26)
[2016-11-28] MEDS: MAGNESIUM HYDROXIDE SUSP 30 ML CUP PO SCH (21:26)
[2016-11-28] MEDS: traZODone HCL 100 MG TAB PO SCH (21:26)
[2016-11-29] MEDS: ceFAZolin 2 GM PREMIX 50 ML IV SCH ×4 (00:01→23:50)
[2016-11-29] MEDS: ACETAMINOPHEN/HYDROcodone 325 MG/10 MG TAB PO PRN ×6 (00:02→23:50)
[2016-11-29] MEDS: NYSTATIN 100,000 UNIT/GM CREAM 15 GM TOPICAL SCH ×4 (00:07→18:13)
[2016-11-29 00:21] VITALS: BP 142/69; PULSE 55; RESP 18; TEMP 96.5; O2SAT 99
[2016-11-29 06:32] VITALS: O2SAT 98
[2016-11-29] MEDS: INSULIN ASPART SUPPLEMENTAL SCALE SQ SCH ×4 (06:42→21:00)
[2016-11-29] MEDS: LACTATED RINGER'S 1000 ML INJ 1,000 ML IV SCH ×2 (06:42→16:59)
[2016-11-29] MEDS: HYDROmorphone HCL PF 1 MG/ML VIAL IV PUSH PRN ×2 (06:48→16:30)
[2016-11-29 08:00] VITALS: BP 120/73; PULSE 57; RESP 18; TEMP 97.5; O2SAT 98
[2016-11-29] MEDS: NEOMYCIN/POLYMYXIN/BACITRACIN OINT 15 GM TUBE TOPICAL SCH ×2 (09:00→18:10)
[2016-11-29] MEDS: PROPRANOLOL HCL 40 MG TAB PO SCH ×2 (09:00→20:37)
[2016-11-29] MEDS: SODIUM CHLORIDE 0.9% FLUSH 10 ML FLUSH IV FLUSH SCH ×2 (09:00→20:37)
[2016-11-29] MEDS: THIAMINE HCL 100 MG TAB PO SCH (09:17)
[2016-11-29] MEDS: GABAPENTIN 300 MG CAP PO SCH ×3 (09:18→18:09)
[2016-11-29] MEDS: DOCUSATE SODIUM 50 MG/SENNA 8.6 MG TAB PO SCH ×2 (09:18→20:37)
[2016-11-29] MEDS: CALCIUM/VITAMIN D 250 MG/125 U TAB PO SCH ×3 (09:18→18:09)
[2016-11-29] MEDS: FERROUS SULFATE 325 MG (65 MG ELEMENTAL IRON) TAB PO SCH (09:19)
[2016-11-29] MEDS: ASPIRIN 81 MG CHEW TAB CHEW SCH (09:19)
[2016-11-29] MEDS: MORPHINE SULFATE 15 MG CONTROLLED RELEASE TAB PO SCH ×2 (09:24→20:37)
[2016-11-29] MEDS: LACTULOSE SYRUP 20 GM/30 ML CUP PO SCH (09:24)
[2016-11-29] MEDS: PANTOPRAZOLE SOD 40 MG DELAYED RELEASE TAB PO SCH (09:24)
[2016-11-29 12:00] VITALS: BP 98/60; PULSE 64; RESP 18; TEMP 97.1; O2SAT 97
[2016-11-29] MEDS: MAGNESIUM HYDROXIDE SUSP 30 ML CUP PO PRN (12:43)
[2016-11-29] MEDS: BISACODYL 10 MG SUPP RECTAL PRN (13:48)
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
[2016-11-29 16:00] VITALS: BP 117/70; PULSE 63; RESP 18; TEMP 95.6; O2SAT 100
[2016-11-29 20:00] VITALS: BP 117/70; PULSE 60; RESP 17; TEMP 97.7; O2SAT 98
[2016-11-29] MEDS: MAGNESIUM HYDROXIDE SUSP 30 ML CUP PO SCH (20:36)
[2016-11-29] MEDS: PRAVASTATIN SOD 80 MG TAB PO SCH (20:37)
[2016-11-29] MEDS: traZODone HCL 100 MG TAB PO SCH (20:37)
[2016-11-30] VITALS (7 sets, daily range): BP systolic 103–126; BP diastolic 56–70; PULSE 53–114; RESP 16–18; TEMP 96.3–97.2; O2SAT 96–100
[2016-11-30] MEDS: NYSTATIN 100,000 UNIT/GM CREAM 15 GM TOPICAL SCH ×4 (00:02→18:00)
[2016-11-30] MEDS: LACTATED RINGER'S 1000 ML INJ 1,000 ML IV SCH ×3 (02:32→21:25)
[2016-11-30] MEDS: MORPHINE SULFATE 15 MG CONTROLLED RELEASE TAB PO SCH ×3 (05:33→20:25)
[2016-11-30] MEDS: ceFAZolin 2 GM PREMIX 50 ML IV SCH ×3 (05:34→22:36)
[2016-11-30] MEDS: INSULIN ASPART SUPPLEMENTAL SCALE SQ SCH ×4 (07:00→20:26)
[2016-11-30] MEDS: PROPRANOLOL HCL 40 MG TAB PO SCH ×2 (08:40→20:25)
[2016-11-30] MEDS: THIAMINE HCL 100 MG TAB PO SCH (08:40)
[2016-11-30] MEDS: CALCIUM/VITAMIN D 250 MG/125 U TAB PO SCH ×3 (08:40→17:38)
[2016-11-30] MEDS: DOCUSATE SODIUM 50 MG/SENNA 8.6 MG TAB PO SCH ×2 (08:40→20:25)
[2016-11-30] MEDS: FERROUS SULFATE 325 MG (65 MG ELEMENTAL IRON) TAB PO SCH (08:40)
[2016-11-30] MEDS: ASPIRIN 81 MG CHEW TAB CHEW SCH (08:40)
[2016-11-30] MEDS: LACTULOSE SYRUP 20 GM/30 ML CUP PO SCH (08:40)
[2016-11-30] MEDS: GABAPENTIN 300 MG CAP PO SCH ×3 (08:40→17:38)
[2016-11-30] MEDS: PANTOPRAZOLE SOD 40 MG DELAYED RELEASE TAB PO SCH (08:40)
[2016-11-30] MEDS: SODIUM CHLORIDE 0.9% FLUSH 10 ML FLUSH IV FLUSH SCH ×2 (08:43→20:24)
[2016-11-30] MEDS: ACETAMINOPHEN/HYDROcodone 325 MG/10 MG TAB PO PRN ×4 (08:43→22:37)
[2016-11-30] MEDS: HYDROmorphone HCL PF 1 MG/ML VIAL IV PUSH PRN (10:46)
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
[2016-11-30] MEDS: MAGNESIUM HYDROXIDE SUSP 30 ML CUP PO SCH (20:25)
[2016-11-30] MEDS: traZODone HCL 100 MG TAB PO SCH (20:25)
[2016-11-30] MEDS: PRAVASTATIN SOD 80 MG TAB PO SCH (20:25)
[2016-12-01] VITALS (7 sets, daily range): BP systolic 93–124; BP diastolic 51–69; PULSE 55–73; RESP 16–18; TEMP 96.8–98.1; O2SAT 94–99
[2016-12-01] MEDS: ACETAMINOPHEN/HYDROcodone 325 MG/10 MG TAB PO PRN ×5 (02:53→22:26)
[2016-12-01] MEDS: MORPHINE SULFATE 15 MG CONTROLLED RELEASE TAB PO SCH ×3 (06:04→20:40)
[2016-12-01] MEDS: NYSTATIN 100,000 UNIT/GM CREAM 15 GM TOPICAL SCH ×5 (06:11→22:13)
[2016-12-01] MEDS: INSULIN ASPART SUPPLEMENTAL SCALE SQ SCH ×4 (06:12→20:42)
[2016-12-01] MEDS: ceFAZolin 2 GM PREMIX 50 ML IV SCH (06:46)
--- NOTE | 2016-12-01 06:49 | PD.ORT.PN ---
Subjective Subjective Remarks Pain controlled Objective Vitals Vital Signs Date Time Temp Pulse Resp B/P Pulse Ox O2 Delivery O2 Flow Rate FiO2 12/01/16 04:46 Room Air 12/01/16 04:07 18 12/01/16 00:00 98.0 70 16 102/59 98 11/30/16 21:24 18 11/30/16 19:00 96.7 61 17 105/66 100 11/30/16 16:00 96.9 61 18 103/66 99 11/30/16 12:00 97.0 114 18 104/61 97 11/30/16 10:08 96 21 11/30/16 08:00 98 Room Air 11/30/16 08:00 96.3 53 18 126/70 96 I/O 11/30/16 11/30/16 11/30/16 12/01/16 12/01/16 12/01/16 07:00 15:00 23:00 07:00 15:00 23:00 Intake Total 480 ml 1080 ml Output Total 850 ml 25 ml 25 ml Balance -370 ml 1055 ml -25 ml Intake Oral 480 ml 1080 ml Output Urine Total 800 ml Drainage Total 50 ml 25 ml 25 ml # Voids 7 # Bowel Movements 1 Imaging Last 24 hours Impressions Pelvis X-Ray 11/07/16 1355 Signed Impressions: Service Date/Time: Monday, November 07, 2016 13:34 - CONCLUSION: No acute disease. Behzad Finch Jr., MD Chest X-Ray 11/07/16 1355 Signed Impressions: Service Date/Time: Monday, November 07, 2016 13:34 - CONCLUSION: No acute disease. Jac Gonzales MD Objective Remarks sitting up in bed RLE: Dressings clean and dry. intact. with full sensation and motor function. + exfix. pin sites. clean LLE: Wound VAC intact. Good seal. no sensation over medial foot. inability to dorsiflex or flex toes/foot. Assessment & Plan Assessment and Plan 1) Right Open Tibia Fracture s/p exfix revision with ORIF - POD #20 2) Left Open Tibia Fracture s/p Soleus muscle flap with IMN and removal of exfix - POD #20 3) left tibia plateau fracture treated nonoperatively -NWB BLE -pin care BID right leg -maintain vac left leg -vac settinmmHg, intermittent, 3:1 -will plan on vac change Thursday - need extra-large wound VAC, to Xeroform, and Ioban bedside for change Ronald Hatch Jr. Dec 01, 2016 06:48
[2016-12-01] MEDS: LACTATED RINGER'S 1000 ML INJ 1,000 ML IV SCH ×3 (08:59→22:13)
[2016-12-01] MEDS: DOCUSATE SODIUM 50 MG/SENNA 8.6 MG TAB PO SCH ×2 (09:00→20:41)
[2016-12-01] MEDS: LACTULOSE SYRUP 20 GM/30 ML CUP PO SCH (09:00)
[2016-12-01] MEDS: SODIUM CHLORIDE 0.9% FLUSH 10 ML FLUSH IV FLUSH SCH ×2 (09:00→20:42)
[2016-12-01] MEDS: NEOMYCIN/POLYMYXIN/BACITRACIN OINT 15 GM TUBE TOPICAL SCH (09:00)
[2016-12-01] MEDS: PROPRANOLOL HCL 40 MG TAB PO SCH ×2 (09:37→20:41)
[2016-12-01] MEDS: ASPIRIN 81 MG CHEW TAB CHEW SCH (09:37)
[2016-12-01] MEDS: THIAMINE HCL 100 MG TAB PO SCH (09:37)
[2016-12-01] MEDS: FERROUS SULFATE 325 MG (65 MG ELEMENTAL IRON) TAB PO SCH (09:38)
[2016-12-01] MEDS: PANTOPRAZOLE SOD 40 MG DELAYED RELEASE TAB PO SCH (09:38)
[2016-12-01] MEDS: CALCIUM/VITAMIN D 250 MG/125 U TAB PO SCH ×3 (09:38→17:13)
[2016-12-01] MEDS: GABAPENTIN 300 MG CAP PO SCH ×3 (09:38→17:13)
--- NOTE | 2016-12-01 10:58 | HHI.PR ---
Subjective Remarks Follow-up visit bilateral leg trauma, external fixator in place. Patient seen and examined today. Pain is more manageable. States he woke up this morning feeling that his ears are stuffy. States his sinuses are bothering him overnight. Reports postnasal drip. Otherwise, denies SOB/ dyspnea. Denies chest pain, palpitations, headaches, dizziness. Denies fevers, chills, n/v/d. Denies hematuria, dysuria. Objective Vitals Vital Signs Date Time Temp Pulse Resp B/P Pulse Ox O2 Delivery O2 Flow Rate FiO2 12/01/16 08:00 97.4 55 18 124/61 99 12/01/16 07:35 18 12/01/16 04:46 Room Air 12/01/16 04:07 18 12/01/16 00:00 98.0 70 16 102/59 98 11/30/16 19:00 96.7 61 17 105/66 100 11/30/16 16:00 96.9 61 18 103/66 99 11/30/16 12:00 97.0 114 18 104/61 97 I/O 11/30/16 11/30/16 11/30/16 12/01/16 12/01/16 12/01/16 07:00 15:00 23:00 07:00 15:00 23:00 Intake Total 480 ml 1080 ml Output Total 850 ml 25 ml 25 ml Balance -370 ml 1055 ml -25 ml Intake Oral 480 ml 1080 ml Output Urine Total 800 ml Drainage Total 50 ml 25 ml 25 ml # Voids 7 # Bowel Movements 1 Imaging Last Impressions Knee X-Ray 11/25/16 0000 Signed Impressions: Service Date/Time: Friday, November 25, 2016 06:44 - CONCLUSION: Post surgical changes are identified. Mumtaz Cornelius MD Tibia/Fibula X-Ray 11/24/16 0000 Signed Impressions: Service Date/Time: Thursday, November 24, 2016 10:06 - CONCLUSION: 1. Mildly displaced lateral tibial plateau fracture which is not clearly evident on the previous studies. 2. Otherwise stable left tibia status post ORIF. 3. Wound VAC remains in place. Dex Wild MD Ankle X-Ray 11/24/16 0000 Signed Impressions: Service Date/Time: Thursday, November 24, 2016 10:08 - CONCLUSION: Stable satisfactory appearance of the right ankle as described. Dex Wild MD Chest X-Ray 11/20/16 0000 Signed Impressions: Service Date/Time: November 17:08 - CONCLUSION: 1. No acute abnormality or significant interval change. Sukhi Stevens MD Pelvis X-Ray 11/07/16 1355 Signed Impressions: Service Date/Time: Monday, November 07, 2016 13:34 - CONCLUSION: No acute disease. Behzad Finch Jr., MD Objective Remarks GENERAL: This is a well-nourished, well-developed patient, in no apparent distress. SKIN: Warm and dry. Wound VAC in place left lower extremity draining small amount serosanguineous. HEENT: Normocephalic. Pupils equal round and reactive. Nose without bleeding. Airway patent. Bilateral tympanic membranes clear, no erythema, or edema in the canal area, no effusion NECK: Trachea midline. No JVD. Supple. CARDIOVASCULAR: Regular rate and rhythm without murmurs, gallops, or rubs. RESPIRATORY: Clear to auscultation. Breath sounds equal bilaterally. No wheezes , rales, or rhonchi. GASTROINTESTINAL: Abdomen soft, non-tender, nondistended. Bowel Sounds normoactive x4. MUSCULOSKELETAL: Extremities without clubbing, cyanosis. Right lower extremity with Raul wrap external fixation in place. Left lower and upper leg with Raul wrap's. Bilateral toes able to wiggle weakly. Pulses palpable. NEUROLOGICAL: Awake and alert. Oriented to time, place, person. No focal neuro deficit. Tremors RUE > LUE. Moves all extremities. Normal speech. Procedures 1.s/p I&D with ex fix application bilateral tibias s/p wound vac application left tibia 2.With the assistance of RN, under sterile technique the avulsed skin of the right middle finger was clipped. No bleeding noted. Patient gave consent 3.Open reduction internal fixation of right distal tibia and fibula fractures Nonoperative treatment left tibial plateau fracture Irrigation and debridement of left tibia shaft fracture, removal external fixation, soleus muscle rotational flap, intramedullary nail fixation left tibia , application of wound VAC dressing 4.7 Irrigation and debridement of left tibia, application wound VAC dressing 5. 8 Irrigation and debridement of left open tibia fracture with application of wound VAC dressing A/P Problem List: (1) Fracture of tibia, left, open ICD Code: S82.202B Status: Acute (2) Fracture of tibia, right, open ICD Code: S82.201B Status: Acute (3) Hypotension ICD Code: I95.9 Status: Acute Assessment and Plan 61-year-old male admitted secondary to bilateral leg trauma after car fell on his legs while he was working on. Open fractures were present bilaterally. Sinus irritation - Bilat TM clear - Zyrtec qhs - Flonase daily Bilateral open tibia-fibula fractures Left tibial plateau fracture - Open fractures have been surgically repaired, right side has external fixation - Continue wound VAC over left leg as per orthopedic surgery recommendations. - Continue pain management with Lortab, Oramorph and IV Dilaudid. - Lortab dose when necessary, increase Oramorph to every 8 hours and keep IV Dilaudid. Discuss with patient that this is short-term related to injuries. - Improved pain control Acute blood loss anemia - Related to trauma vs post op blood loss - Status post transfusion of 2 units of packed red blood cells in 11/12/16. - Continue to monitor CBC - Stable for now Coronary artery disease - Seems stable. The patient is asymptomatic. - Continue propranolol and statin - Clonidine PRN Hypertension - RAUL inhibitor held due to hypotension. - Narcotics seem to have a depressive affect on this patient, however blood pressure has much improved after the patient was taken off IV morphine - Propranolol being tolerated by patient Diabetes mellitus type 2 - Blood sugar seems to be stable. - Continue SSI with insulin NovoLog. Continue to monitor Accu-Cheks. - Continue with diabetic diet Alcohol abuse - AST mildly elevated, AST within normal range. - There is no evidence of alcohol withdrawal at this moment. - Alcohol cessation recommended Tobacco abuse - Cessation recommended. Chronic essential tremor - Continue Propranolol with holding parameters, HR <55 Hyponatremia - Sodium trending up on fluid restriction. - Improving Sodium 134 -->138 - Continue to monitor BMP. Leukocytosis - Likely reactive. ID consulted, appreciate recommendations. - Blood cultures negative to date, continue to monitor. - Continue Cefazolin IV , stop date 12/01/16 Dermatitis. Nystatin. wd care GI prophylaxis: PPI No chemoprophylaxis due to blood loss. Pharmacological prophylaxis on hold per orthopedic surgery Discharge Planning Plan for discharge pending clearance from orthopedic team. Problem Qualifiers (1) Fracture of tibia, left, open: Qualified Code: S82.255B - Type I or II open nondisplaced comminuted fracture of shaft of left tibia, initial encounter (2) Fracture of tibia, right, open: Qualified Code: S82.251C - Type III open displaced comminuted fracture of shaft of right tibia, initial encounter (3) Hypotension: Qualified Code: I95.89 - Other specified hypotension Dion Umana [facility] Dec 01, 2016 10:58
[2016-12-01] MEDS: FLUTICASONE PROPIONATE 50 MCG/ACT 16 GM NASAL SPRAY EACH NARE SCH (14:26)
[2016-12-01] MEDS: HYDROmorphone HCL PF 1 MG/ML VIAL IV PUSH PRN (17:12)
[2016-12-01] MEDS: MAGNESIUM HYDROXIDE SUSP 30 ML CUP PO SCH (20:41)
[2016-12-01] MEDS: PRAVASTATIN SOD 80 MG TAB PO SCH (20:41)
[2016-12-01] MEDS: CETIRIZINE HCL 10 MG TAB PO SCH (20:42)
[2016-12-01] MEDS: traZODone HCL 100 MG TAB PO SCH (20:42)
[2016-12-02] VITALS (7 sets, daily range): BP systolic 95–114; BP diastolic 61–68; PULSE 58–75; RESP 16–18; TEMP 96–98.2; O2SAT 95–97
[2016-12-02] MEDS: HYDROmorphone HCL PF 1 MG/ML VIAL IV PUSH PRN ×2 (00:30→07:42)
[2016-12-02] MEDS: ACETAMINOPHEN/HYDROcodone 325 MG/10 MG TAB PO PRN ×4 (03:46→20:31)
[2016-12-02] MEDS: NYSTATIN 100,000 UNIT/GM CREAM 15 GM TOPICAL SCH ×3 (05:06→18:40)
[2016-12-02] MEDS: MORPHINE SULFATE 15 MG CONTROLLED RELEASE TAB PO SCH ×3 (05:06→22:39)
[2016-12-02] MEDS: INSULIN ASPART SUPPLEMENTAL SCALE SQ SCH ×4 (06:23→20:40)
[2016-12-02] MEDS: SODIUM CHLORIDE 0.9% FLUSH 10 ML FLUSH IV FLUSH SCH ×2 (09:00→20:35)
[2016-12-02] MEDS: NEOMYCIN/POLYMYXIN/BACITRACIN OINT 15 GM TUBE TOPICAL SCH (09:00)
[2016-12-02] MEDS: ASPIRIN 81 MG CHEW TAB CHEW SCH (09:18)
[2016-12-02] MEDS: PANTOPRAZOLE SOD 40 MG DELAYED RELEASE TAB PO SCH (09:18)
[2016-12-02] MEDS: LACTULOSE SYRUP 20 GM/30 ML CUP PO SCH (09:18)
[2016-12-02] MEDS: FERROUS SULFATE 325 MG (65 MG ELEMENTAL IRON) TAB PO SCH (09:18)
[2016-12-02] MEDS: GABAPENTIN 300 MG CAP PO SCH ×3 (09:18→18:40)
[2016-12-02] MEDS: DOCUSATE SODIUM 50 MG/SENNA 8.6 MG TAB PO SCH ×2 (09:19→20:30)
[2016-12-02] MEDS: THIAMINE HCL 100 MG TAB PO SCH (09:19)
[2016-12-02] MEDS: CALCIUM/VITAMIN D 250 MG/125 U TAB PO SCH ×3 (09:19→18:40)
[2016-12-02] MEDS: PROPRANOLOL HCL 40 MG TAB PO SCH ×2 (09:19→20:30)
[2016-12-02] MEDS: FLUTICASONE PROPIONATE 50 MCG/ACT 16 GM NASAL SPRAY EACH NARE SCH (09:32)
--- NOTE | 2016-12-02 11:41 | HHI.PR ---
Subjective Remarks Follow-up visit bilateral leg trauma, external fixator in place. Patient seen and examined today. Patient reports pain is controlled at present. He denies any acute medical complaints. He denies any fever or chills. Denies any chest pain or shortness of breath. Denies any nausea, vomiting or abdominal pain. He reports a good appetite. States he is moving his bowels. Denies any complaints of dysuria or diarrhea. Underwent wound VAC change at the bedside earlier this morning. Objective Vitals Vital Signs Date Time Temp Pulse Resp B/P Pulse Ox O2 Delivery O2 Flow Rate FiO2 12/02/16 08:00 98.2 61 18 108/65 96 12/02/16 00:15 96.7 72 18 102/62 95 12/01/16 20:30 97.7 67 17 109/66 95 12/01/16 18:10 18 12/01/16 18:00 98 21 12/01/16 16:21 17 12/01/16 16:00 96.8 58 18 108/69 94 12/01/16 14:26 18 12/01/16 12:08 98 12/01/16 12:00 98.1 73 18 93/51 96 I/O 12/01/16 12/01/16 12/01/16 12/02/16 12/02/16 12/02/16 07:00 15:00 23:00 07:00 15:00 23:00 Intake Total 1440 ml 480 ml Output Total 25 ml 500 ml 450 ml Balance -25 ml 940 ml 30 ml Intake Oral 1440 ml 480 ml Output Urine Total 500 ml 450 ml Drainage Total 25 ml 0 ml 0 ml # Voids 3 2 # Bowel Movements 1 0 Imaging Last Impressions Knee X-Ray 11/25/16 0000 Signed Impressions: Service Date/Time: Friday, November 25, 2016 06:44 - CONCLUSION: Post surgical changes are identified. Mumtaz Cornelius MD Tibia/Fibula X-Ray 11/24/16 0000 Signed Impressions: Service Date/Time: Thursday, November 24, 2016 10:06 - CONCLUSION: 1. Mildly displaced lateral tibial plateau fracture which is not clearly evident on the previous studies. 2. Otherwise stable left tibia status post ORIF. 3. Wound VAC remains in place. Dex Wild MD Ankle X-Ray 11/24/16 0000 Signed Impressions: Service Date/Time: Thursday, November 24, 2016 10:08 - CONCLUSION: Stable satisfactory appearance of the right ankle as described. Dex Wild MD Chest X-Ray 11/20/16 0000 Signed Impressions: Service Date/Time: November 17:08 - CONCLUSION: 1. No acute abnormality or significant interval change. Sukhi Stevens MD Pelvis X-Ray 11/07/16 1355 Signed Impressions: Service Date/Time: Monday, November 07, 2016 13:34 - CONCLUSION: No acute disease. Behzad Finch Jr., MD Objective Remarks GENERAL: This is a well-nourished, well-developed patient, in no apparent distress. Awake and alert. SKIN: Warm and dry. Wound VAC in place left lower extremity draining small amount serosanguineous. HEENT: Normocephalic. Pupils equal round and reactive. Nose without bleeding. Airway patent. NECK: Trachea midline. No JVD. Supple. CARDIOVASCULAR: Regular rate and rhythm without murmurs, gallops, or rubs. RESPIRATORY: Clear to auscultation. Breath sounds equal bilaterally. No wheezes , rales, or rhonchi. GASTROINTESTINAL: Abdomen soft, non-tender, nondistended. Bowel Sounds normoactive x4. MUSCULOSKELETAL: Extremities without clubbing, cyanosis. Right lower extremity with Raul wrap external fixation in place. Left lower and upper leg with Raul wrap's. Bilateral toes able to wiggle weakly. Pulses palpable. Edema noted in bilateral feet. NEUROLOGICAL: Awake and alert. Oriented to time, place, person. No focal neuro deficit. Non-tremulous. Moves all extremities. Normal speech. Procedures 1.s/p I&D with ex fix application bilateral tibias s/p wound vac application left tibia 2.With the assistance of RN, under sterile technique the avulsed skin of the right middle finger was clipped. No bleeding noted. Patient gave consent 3.Open reduction internal fixation of right distal tibia and fibula fractures Nonoperative treatment left tibial plateau fracture Irrigation and debridement of left tibia shaft fracture, removal external fixation, soleus muscle rotational flap, intramedullary nail fixation left tibia , application of wound VAC dressing 4.11/13 Irrigation and debridement of left tibia, application wound VAC dressing 5. 8 Irrigation and debridement of left open tibia fracture with application of wound VAC dressing 6. 12/01 wound vac change at the bedside Medications and IVs Current Medications Medications (Trade) Dose Ordered Sig/Milagro Route Start Time Stop Time Status Last Admin (NS Flush) 2 ml UNSCH PRN IV FLUSH 11/07/16 14:30 11/18/16 11:14 (NS Flush) 2 ml BID IV FLUSH 11/07/16 21:00 12/01/16 20:42 (Zofran Inj) 4 mg Q6H PRN IV 11/07/16 14:30 11/25/16 10:50 (Narcan Inj) 0.4 mg UNSCH PRN IV 11/07/16 14:30 (Tylenol) 650 mg Q4H PRN PO 11/08/16 08:15 (Tums Chew) 1,000 mg TID PRN CHEW 11/08/16 08:15 11/15/16 14:16 (D50w (Vial) Inj) 50 ml UNSCH PRN IV 11/08/16 08:15 (Glucagon Inj) 1 mg UNSCH PRN OTHER 11/08/16 08:15 (Vasotec Inj) 1.25 mg Q6H PRN IV 11/08/16 08:15 (Catapres) 0.1 mg Q6H PRN PO 11/08/16 08:15 (Aspirin Chew) 81 mg DAILY CHEW 11/08/16 12:45 12/02/16 09:18 (Ferrous Sulfate) 325 mg DAILY PO 11/08/16 12:45 12/02/16 09:18 (Prinivil) 25 mg DAILY PO 11/08/16 12:45 Hold 11/18/16 09:59 (Nitrostat Sl) 0.4 mg Q6HR PRN SL 11/08/16 12:45 (Protonix) 40 mg DAILY PO 11/08/16 12:45 12/02/16 09:18 (Pravachol) 80 mg HS PO 11/08/16 21:00 12/01/16 20:41 (Pill Splitter) 1 ea UNSCH PRN OTHER 11/08/16 12:45 (Elke-Colace) 1 tab BID PO 11/08/16 12:45 12/02/16 09:19 (Vitamin B1) 100 mg DAILY PO 11/09/16 09:00 12/02/16 09:19 (Romazicon Inj) 0.2 mg Q1M PRN IV PUSH 11/08/16 13:00 (Haldol Inj) 2 mg Q15M PRN IM 11/08/16 13:00 (Neosporin Oint) 1 applic DAILY TOPICAL 11/10/16 09:00 11/29/16 18:10 (Lactulose Liq) 30 ml DAILY PO 11/10/16 09:00 12/02/16 09:18 (Milk Of Magnesia Liq) 30 ml HS PO 11/10/16 21:00 12/01/16 20:41 (Lovenox Inj) 30 mg Q12H SQ 11/11/16 00:00 Hold 11/11/16 23:13 (Oscal-D 250-125) 250 mg TID PO 11/10/16 13:00 12/02/16 09:19 (Ambien) 5 mg HS PRN PO 11/14/16 11:00 (Desyrel) 100 mg HS PO 11/14/16 21:00 12/01/16 20:42 (Neurontin) 600 mg TID PO 11/16/16 13:00 12/02/16 09:18 ([place] 10-325 Mg) 1 tab Q4H PRN PO 11/20/16 00:45 11/28/16 08:50 (Dilaudid Pf Inj) 1 mg Q4H PRN IV PUSH 11/20/16 00:45 12/02/16 07:42 (Inderal) 40 mg Q12HR PO 11/22/16 21:00 12/02/16 09:19 Prochlorperazine Edisylate 10 mg 10 mg Q8H PRN IV PUSH 11/25/16 16:15 11/25/16 18:00 (Lr 1000 ml Inj) 1,000 ml @ 100 mls/hr Q10H IV 11/28/16 10:59 (Milk Of Magnesia Liq) 30 ml Q12H PRN PO 11/28/16 11:30 11/29/16 12:43 (Senokot) 17.2 mg Q12H PRN PO 11/28/16 11:30 (Dulcolax Supp) 10 mg DAILY PRN RECTAL 11/28/16 11:30 11/29/16 13:48 ([place] 10-325 Mg) 1.5 tab Q4H PRN PO 11/28/16 15:00 12/02/16 09:19 (Mycostatin Cream) 1 applic Q6HR TOPICAL 11/28/16 14:00 12/02/16 05:06 (Oramorph Sr) 30 mg Q8HR PO 11/29/16 22:00 12/02/16 05:06 (ZyrTEC) 10 mg HS PO 12/01/16 21:00 12/08/16 20:59 12/01/16 20:42 (Flonase Jerzy Spr) 2 spray DAILY EACH NARE 12/01/16 11:00 12/15/16 10:59 12/02/16 09:32 A/P Problem List: (1) Fracture of tibia, left, open ICD Code: S82.202B Status: Acute (2) Fracture of tibia, right, open ICD Code: S82.201B Status: Acute (3) Hypotension ICD Code: I95.9 Status: Acute Assessment and Plan 61-year-old male admitted secondary to bilateral leg trauma after car fell on his legs while he was working on. Open fractures were present bilaterally. Bilateral open tibia-fibula fractures Left tibial plateau fracture - Open fractures have been surgically repaired, right side has external fixation - Continue wound VAC over left leg as per orthopedic surgery recommendations. s/p wound vac change earlier today at the bedside. - left tibial plateau treated nonoperatively - Pin care BID to right leg - Lortab dose when necessary, Oramorph 30mg every 8 hours and IV Dilaudid 1mg q4H prn breakthrough pain. - discussed with MADIHA Chaudhari - patient cleared to resume Lovenox sq Acute blood loss anemia - Related to trauma vs post op blood loss - Status post transfusion of 2 units of packed red blood cells in 11/12/16. - Stable - on iron supplementation daily. Check iron studies. - monitor CBC as indicated Coronary artery disease with h/o previous CABG - Appears stable. Patient is asymptomatic. - Continue propranolol and statin - ASA 81mg daily - Clonidine PRN Hypertension - RAUL inhibitor held due to hypotension. - Narcotics seem to have a depressive affect on this patient, however blood pressure has much improved after the patient was taken off IV morphine - Propranolol being tolerated by patient Diabetes mellitus type 2 - Blood sugar 88 this am - Continue SSI with insulin NovoLog. Continue to monitor Accu-Cheks. Alcohol abuse Transaminitis, resolved - AST and ALT now within normal range. - Continue with daily thiamine and folic acid - Alcohol cessation recommended Tobacco abuse - Cessation recommended. Chronic essential tremor - Continue Propranolol with holding parameters, HR <55 Hyponatremia - Sodium trending up on fluid restriction. - Improving Sodium 134 -->138 - Continue to monitor BMP. Labs ordered for tomorrow. Leukocytosis - Likely reactive. ID consulted, appreciate recommendations. - Blood cultures show no growth in 5 days - Completed Cefazolin IV, stop date 12/01/16 - CBC ordered for am Dermatitis. Nystatin. care GI prophylaxis: PPI Resume Lovenox sq Discussed with patient and Dr. Leon Problem Qualifiers (1) Fracture of tibia, left, open: Qualified Code: S82.255B - Type I or II open nondisplaced comminuted fracture of shaft of left tibia, initial encounter (2) Fracture of tibia, right, open: Qualified Code: S82.251C - Type III open displaced comminuted fracture of shaft of right tibia, initial encounter (3) Hypotension: Qualified Code: I95.89 - Other specified hypotension Mary De Luna Dec 02, 2016 11:41 Mary De Luna Dec 02, 2016 11:41
--- NOTE | 2016-12-02 11:56 | PD.ORT.PN ---
Subjective Subjective Remarks POD 22 s/p left tibia IMN and right tibia ORIF s/p left tibia soleus flap doing well. pain controlled. ambulating with walker Objective Vitals Vital Signs Date Time Temp Pulse Resp B/P Pulse Ox O2 Delivery O2 Flow Rate FiO2 12/02/16 08:00 98.2 61 18 108/65 96 12/02/16 00:15 96.7 72 18 102/62 95 12/01/16 20:30 97.7 67 17 109/66 95 12/01/16 18:10 18 12/01/16 18:00 98 21 12/01/16 16:21 17 12/01/16 16:00 96.8 58 18 108/69 94 12/01/16 14:26 18 12/01/16 12:08 98 12/01/16 12:00 98.1 73 18 93/51 96 I/O 12/01/16 12/01/16 12/01/16 12/02/16 12/02/16 12/02/16 06:59 14:59 22:59 06:59 14:59 22:59 Intake Total 1440 ml 480 ml Output Total 25 ml 500 ml 450 ml Balance -25 ml 940 ml 30 ml Intake Oral 1440 ml 480 ml Output Urine Total 500 ml 450 ml Drainage Total 25 ml 0 ml 0 ml # Voids 3 2 # Bowel Movements 1 0 Imaging Last 24 hours Impressions Pelvis X-Ray 11/07/16 1355 Signed Impressions: Service Date/Time: Monday, November 07, 2016 13:34 - CONCLUSION: No acute disease. Behzad Finch Jr., MD Chest X-Ray 11/07/16 1355 Signed Impressions: Service Date/Time: Monday, November 07, 2016 13:34 - CONCLUSION: No acute disease. Jac Gonzales MD Objective Remarks sitting up in bed RLE: Dressings clean and dry. intact. with full sensation and motor function. + exfix. pin sites. clean LLE: Wound VAC intact. Good seal. no sensation over medial foot. inability to dorsiflex or flex toes/foot. vac removed. muscle flap healing. Assessment & Plan Assessment and Plan 1) Right Open Tibia Fracture s/p exfix revision with ORIF - POD #22 2) Left Open Tibia Fracture s/p Soleus muscle flap with IMN and removal of exfix - POD #22 3) left tibia plateau fracture treated nonoperatively -NWB BLE -pin care BID right leg -vac changed at bedside -maintain vac left leg -vac settinmmHg, intermittent, 3:1 Jef Steve Dec 02, 2016 11:56
[2016-12-02] MEDS: LACTATED RINGER'S 1000 ML INJ 1,000 ML IV SCH (14:59)
[2016-12-02] MEDS: MAGNESIUM HYDROXIDE SUSP 30 ML CUP PO SCH (20:30)
[2016-12-02] MEDS: traZODone HCL 100 MG TAB PO SCH (20:30)
[2016-12-02] MEDS: CETIRIZINE HCL 10 MG TAB PO SCH (20:31)
[2016-12-02] MEDS: PRAVASTATIN SOD 80 MG TAB PO SCH (20:31)
[2016-12-03] VITALS (7 sets, daily range): BP systolic 97–119; BP diastolic 62–71; PULSE 58–70; RESP 17–18; TEMP 96–97.9; O2SAT 96–98
[2016-12-03] MEDS: ENOXAPARIN SODIUM 30 MG/0.3 ML SYRINGE SQ SCH ×2 (02:37→11:16)
[2016-12-03] MEDS: ACETAMINOPHEN/HYDROcodone 325 MG/10 MG TAB PO PRN ×4 (02:45→17:48)
[2016-12-03] MEDS: MORPHINE SULFATE 15 MG CONTROLLED RELEASE TAB PO SCH (06:09)
[2016-12-03] MEDS: INSULIN ASPART SUPPLEMENTAL SCALE SQ SCH (06:14)
[2016-12-03] MEDS: NYSTATIN 100,000 UNIT/GM CREAM 15 GM TOPICAL SCH ×3 (06:14→12:00)
[2016-12-03] MEDS: GABAPENTIN 300 MG CAP PO SCH ×3 (08:05→17:43)
[2016-12-03] MEDS: PROPRANOLOL HCL 40 MG TAB PO SCH ×2 (08:05→21:00)
[2016-12-03] MEDS: DOCUSATE SODIUM 50 MG/SENNA 8.6 MG TAB PO SCH ×2 (08:06→21:00)
[2016-12-03] MEDS: ASPIRIN 81 MG CHEW TAB CHEW SCH (08:06)
[2016-12-03] MEDS: CALCIUM/VITAMIN D 250 MG/125 U TAB PO SCH ×3 (08:06→17:43)
[2016-12-03] MEDS: FOLIC ACID 1 MG TAB PO SCH (08:06)
[2016-12-03] MEDS: FERROUS SULFATE 325 MG (65 MG ELEMENTAL IRON) TAB PO SCH (08:06)
[2016-12-03] MEDS: PANTOPRAZOLE SOD 40 MG DELAYED RELEASE TAB PO SCH (08:06)
--- NOTE | 2016-12-03 08:51 | HHI.PR ---
Subjective Remarks Follow-up visit bilateral leg trauma, external fixator in place. Patient seen and examined. Patient denies any issues overnight. Pain controlled. Cleared by Ortho to resume Lovenox. Patient denies any chest pain or SOB. No fever or chills. No nausea, vomiting or abdominal pain. (+)BM at 330am. Denies any dysuria. Objective Vitals Vital Signs Date Time Temp Pulse Resp B/P Pulse Ox O2 Delivery O2 Flow Rate FiO2 12/03/16 07:32 97.3 58 18 110/62 97 12/03/16 00:35 97.9 70 17 97/62 97 12/02/16 20:40 96.7 75 16 114/68 97 12/02/16 17:50 96 21 12/02/16 16:00 97.9 58 18 103/61 97 12/02/16 13:39 96 12/02/16 12:00 96.0 70 18 95/62 96 I/O 12/02/16 12/02/16 12/02/16 12/03/16 12/03/16 12/03/16 07:00 15:00 23:00 07:00 15:00 23:00 Intake Total 480 ml 740 ml 480 ml 480 ml Output Total 450 ml 50 ml 500 ml Balance 30 ml 740 ml 430 ml -20 ml Intake Oral 480 ml 740 ml 480 ml 480 ml Output Urine Total 450 ml 500 ml Drainage Total 0 ml 50 ml # Voids 2 4 2 # Bowel Movements 0 0 1 0 Imaging Last Impressions Knee X-Ray 11/25/16 0000 Signed Impressions: Service Date/Time: Friday, November 25, 2016 06:44 - CONCLUSION: Post surgical changes are identified. Mumtaz Cornelius MD Tibia/Fibula X-Ray 11/24/16 0000 Signed Impressions: Service Date/Time: Thursday, November 24, 2016 10:06 - CONCLUSION: 1. Mildly displaced lateral tibial plateau fracture which is not clearly evident on the previous studies. 2. Otherwise stable left tibia status post ORIF. 3. Wound VAC remains in place. Dex Wild MD Ankle X-Ray 11/24/16 0000 Signed Impressions: Service Date/Time: Thursday, November 24, 2016 10:08 - CONCLUSION: Stable satisfactory appearance of the right ankle as described. Dex Wild MD Chest X-Ray 11/20/16 0000 Signed Impressions: Service Date/Time: November 17:08 - CONCLUSION: 1. No acute abnormality or significant interval change. Sukhi Stevens MD Pelvis X-Ray 11/07/16 1355 Signed Impressions: Service Date/Time: Monday, November 07, 2016 13:34 - CONCLUSION: No acute disease. Behzad Finch Jr., MD Objective Remarks GENERAL: This is a well-nourished, well-developed patient, in no apparent distress. Awake and alert. Sitting up in hospital bed. SKIN: Warm and dry. Wound VAC in place left lower extremity draining serosanguineous fluid. HEENT: Normocephalic. Pupils equal round and reactive. Nose without bleeding. Airway patent. NECK: Trachea midline. No JVD. Supple. CARDIOVASCULAR: Regular rate and rhythm without murmurs, gallops, or rubs. RESPIRATORY: Clear to auscultation. Breath sounds equal bilaterally. No wheezes , rales, or rhonchi. GASTROINTESTINAL: Abdomen soft, non-tender, nondistended. Bowel Sounds normoactive x4. MUSCULOSKELETAL: Extremities without clubbing, cyanosis. Right lower extremity with external fixation in place. Left lower leg with Raul wrap's, wound vac in place. Bilateral toes able to wiggle weakly. Pulses palpable. Edema noted in bilateral feet. NEUROLOGICAL: Awake and alert. Oriented to time, place, person. No focal neuro deficit. Non-tremulous. Moves all extremities. Normal speech. Procedures 1.s/p I&D with ex fix application bilateral tibias s/p wound vac application left tibia 2.With the assistance of RN, under sterile technique the avulsed skin of the right middle finger was clipped. No bleeding noted. Patient gave consent 3.Open reduction internal fixation of right distal tibia and fibula fractures Nonoperative treatment left tibial plateau fracture Irrigation and debridement of left tibia shaft fracture, removal external fixation, soleus muscle rotational flap, intramedullary nail fixation left tibia , application of wound VAC dressing 4.11/13 Irrigation and debridement of left tibia, application wound VAC dressing 5. 11/28 Irrigation and debridement of left open tibia fracture with application of wound VAC dressing 6. 12/01 wound vac change at the bedside Medications and IVs Current Medications Medications (Trade) Dose Ordered Sig/Milagro Route Start Time Stop Time Status Last Admin (NS Flush) 2 ml UNSCH PRN IV FLUSH 11/07/16 14:30 11/18/16 11:14 (NS Flush) 2 ml BID IV FLUSH 11/07/16 21:00 12/02/16 20:35 (Zofran Inj) 4 mg Q6H PRN IV 11/07/16 14:30 11/25/16 10:50 (Narcan Inj) 0.4 mg UNSCH PRN IV 11/07/16 14:30 (Tylenol) 650 mg Q4H PRN PO 11/08/16 08:15 (Tums Chew) 1,000 mg TID PRN CHEW 11/08/16 08:15 11/15/16 14:16 (D50w (Vial) Inj) 50 ml UNSCH PRN IV 11/08/16 08:15 (Glucagon Inj) 1 mg UNSCH PRN OTHER 11/08/16 08:15 (Vasotec Inj) 1.25 mg Q6H PRN IV 11/08/16 08:15 (Catapres) 0.1 mg Q6H PRN PO 11/08/16 08:15 (Aspirin Chew) 81 mg DAILY CHEW 11/08/16 12:45 12/03/16 08:06 (Ferrous Sulfate) 325 mg DAILY PO 11/08/16 12:45 12/03/16 08:06 (Prinivil) 25 mg DAILY PO 11/08/16 12:45 Hold 11/18/16 09:59 (Nitrostat Sl) 0.4 mg Q6HR PRN SL 11/08/16 12:45 (Protonix) 40 mg DAILY PO 11/08/16 12:45 12/03/16 08:06 (Pravachol) 80 mg HS PO 11/08/16 21:00 12/02/16 20:31 (Pill Splitter) 1 ea UNSCH PRN OTHER 11/08/16 12:45 (Elke-Colace) 1 tab BID PO 11/08/16 12:45 12/03/16 08:06 (Vitamin B1) 100 mg DAILY PO 11/09/16 09:00 12/02/16 09:19 (Romazicon Inj) 0.2 mg Q1M PRN IV PUSH 11/08/16 13:00 (Haldol Inj) 2 mg Q15M PRN IM 11/08/16 13:00 (Neosporin Oint) 1 applic DAILY TOPICAL 11/10/16 09:00 11/29/16 18:10 (Lactulose Liq) 30 ml DAILY PO 11/10/16 09:00 12/02/16 09:18 (Milk Of Magnesia Liq) 30 ml HS PO 11/10/16 21:00 12/02/16 20:30 (Lovenox Inj) 30 mg Q12H SQ 11/11/16 00:00 12/03/16 02:37 (Oscal-D 250-125) 250 mg TID PO 11/10/16 13:00 12/03/16 08:06 (Ambien) 5 mg HS PRN PO 11/14/16 11:00 (Desyrel) 100 mg HS PO 11/14/16 21:00 12/02/16 20:30 (Neurontin) 600 mg TID PO 11/16/16 13:00 12/03/16 08:05 (Ethan 10-325 Mg) 1 tab Q4H PRN PO 11/20/16 00:45 12/03/16 08:04 (Dilaudid Pf Inj) 1 mg Q4H PRN IV PUSH 11/20/16 00:45 12/02/16 07:42 (Inderal) 40 mg Q12HR PO 11/22/16 21:00 12/03/16 08:05 Prochlorperazine Edisylate 10 mg 10 mg Q8H PRN IV PUSH 11/25/16 16:15 11/25/16 18:00 (Lr 1000 ml Inj) 1,000 ml @ 100 mls/hr Q10H IV 11/28/16 10:59 (Milk Of Magnesia Liq) 30 ml Q12H PRN PO 11/28/16 11:30 11/29/16 12:43 (Senokot) 17.2 mg Q12H PRN PO 11/28/16 11:30 (Dulcolax Supp) 10 mg DAILY PRN RECTAL 11/28/16 11:30 11/29/16 13:48 (Ethan 10-325 Mg) 1.5 tab Q4H PRN PO 11/28/16 15:00 12/03/16 02:45 (Mycostatin Cream) 1 applic Q6HR TOPICAL 11/28/16 14:00 12/03/16 06:14 (Oramorph Sr) 30 mg Q8HR PO 11/29/16 22:00 12/03/16 06:09 (ZyrTEC) 10 mg HS PO 12/01/16 21:00 12/08/16 20:59 12/02/16 20:31 (Flonase Jerzy Spr) 2 spray DAILY EACH NARE 12/01/16 11:00 12/15/16 10:59 12/02/16 09:32 (Folate) 1 mg DAILY PO 12/03/16 09:00 12/03/16 08:06 A/P Problem List: (1) Fracture of tibia, left, open ICD Code: S82.202B Status: Acute (2) Fracture of tibia, right, open ICD Code: S82.201B Status: Acute (3) Hypotension ICD Code: I95.9 Status: Acute Assessment and Plan 61-year-old male admitted secondary to bilateral leg trauma after car fell on his legs while he was working on. Open fractures were present bilaterally. Bilateral open tibia-fibula fractures Left tibial plateau fracture - Open fractures have been surgically repaired, right side has external fixation - Continue wound VAC left leg as per orthopedic surgery recommendations. s/ p wound vac change 12/02 at the bedside. - left tibial plateau treated nonoperatively - Pin care BID to right leg - NWB Alden LEs - Lortab dose when necessary, Oramorph 30mg every 8 hours and IV Dilaudid 1mg q4H prn breakthrough pain. - discussed with MADIHA Chaudhari - patient cleared to resume Lovenox sq Acute blood loss anemia - Related to trauma vs post op blood loss - Status post transfusion of 2 units of packed red blood cells in 11/12/16. - Stable - on iron supplementation daily. Check iron studies. - today's labs pending - monitor CBC as indicated Coronary artery disease with h/o previous CABG - Appears stable. Patient is asymptomatic. - Continue propranolol and statin - ASA 81mg daily - Clonidine PRN Hypertension - RAUL inhibitor held due to hypotension. - Narcotics seem to have a depressive affect on this patient, however blood pressure has much improved after the patient was taken off IV morphine - Propranolol being tolerated by patient Diabetes mellitus type 2 - Blood sugar 92 this am - Continue SSI with insulin NovoLog. Continue to monitor Accu-Cheks. Alcohol abuse Transaminitis, resolved - AST and ALT now within normal range. - Continue with daily thiamine and folic acid - Alcohol cessation recommended Tobacco abuse - Cessation recommended. Chronic essential tremor - Continue Propranolol with holding parameters, HR <55 Hyponatremia - Sodium trending up on fluid restriction. - Improving Sodium 134 -->138 - Continue to monitor BMP. Labs pending. Leukocytosis - Likely reactive. ID consulted, appreciate recommendations. - Blood cultures show no growth in 5 days - Completed Cefazolin IV, stop date 12/01/16 - CBC pending Dermatitis. Nystatin. care GI prophylaxis: PPI DVT prophylaxis: Lovenox sq Discussed with patient and Dr. Leon Discharge Planning Pending Ortho clearance Problem Qualifiers (1) Fracture of tibia, left, open: Qualified Code: S82.255B - Type I or II open nondisplaced comminuted fracture of shaft of left tibia, initial encounter (2) Fracture of tibia, right, open: Qualified Code: S82.251C - Type III open displaced comminuted fracture of shaft of right tibia, initial encounter (3) Hypotension: Qualified Code: I95.89 - Other specified hypotension Mary De Luna Dec 03, 2016 08:51 Mary De Luna Dec 03, 2016 08:51
[2016-12-03] MEDS: FLUTICASONE PROPIONATE 50 MCG/ACT 16 GM NASAL SPRAY EACH NARE SCH (09:00)
[2016-12-03] MEDS: SODIUM CHLORIDE 0.9% FLUSH 10 ML FLUSH IV FLUSH SCH ×2 (09:00→21:05)
[2016-12-03] MEDS: THIAMINE HCL 100 MG TAB PO SCH (09:00)
[2016-12-03] MEDS: LACTULOSE SYRUP 20 GM/30 ML CUP PO SCH (09:00)
[2016-12-03] MEDS: NEOMYCIN/POLYMYXIN/BACITRACIN OINT 15 GM TUBE TOPICAL SCH (09:00)
[2016-12-03 10:05] LABS: HEMATOCRIT 32.6 % (39.0-51.0); MEAN CELL VOLUME 95.2 FL (80.0-100.0); MEAN CORPUSCULAR HEMOGLOBIN 31.8 PG (27.0-34.0); MEAN CORPUSCULAR HGB CONC 33.4 % (32.0-36.0); PLATELET COUNT 179 TH/MM3 (150-450); RED BLOOD COUNT 3.43 MIL/MM3 (4.50-5.90); RED CELL DISTRIBUTION WIDTH 14.1 % (11.6-17.2); REVIEW FLAG FINAL; WHITE BLOOD COUNT 8.4 TH/MM3 (4.0-11.0)
[2016-12-03 10:28] LABS: BLOOD UREA NITROGEN 6 MG/DL (7-18)
[2016-12-03 10:29] LABS: ANION GAP 7 MEQ/L (5-15); BICARBONATE 31.7 MEQ/L (21.0-32.0); CHLORIDE 100 MEQ/L (98-107); GLOMERULAR FILTRATION RATE 103 ML/MIN (>89); POTASSIUM 3.9 MEQ/L (3.5-5.1); SODIUM (NA) 139 MEQ/L (136-145); TRANSFERRIN IRON PROFILE 195 MG/DL (200-360)
[2016-12-03 10:31] LABS: FERRITIN 208 NG/ML (26-388)
[2016-12-03] MEDS: HYDROmorphone HCL PF 1 MG/ML VIAL IV PUSH PRN ×3 (11:18→21:04)
[2016-12-03] MEDS: MORPHINE SULFATE 30 MG CONTROLLED RELEASE TAB PO SCH ×2 (15:08→21:00)
[2016-12-03] MEDS: PRAVASTATIN SOD 80 MG TAB PO SCH (21:00)
[2016-12-03] MEDS: MAGNESIUM HYDROXIDE SUSP 30 ML CUP PO SCH (21:00)
[2016-12-03] MEDS: CETIRIZINE HCL 10 MG TAB PO SCH (21:00)
[2016-12-03] MEDS: traZODone HCL 100 MG TAB PO SCH (21:00)
[2016-12-04] MEDS: ENOXAPARIN SODIUM 30 MG/0.3 ML SYRINGE SQ SCH (00:03)
[2016-12-04] MEDS: ACETAMINOPHEN/HYDROcodone 325 MG/10 MG TAB PO PRN ×5 (00:03→20:40)
[2016-12-04] MEDS: NYSTATIN 100,000 UNIT/GM CREAM 15 GM TOPICAL SCH ×4 (00:05→17:28)
[2016-12-04] MEDS: ONDANSETRON HCL 4 MG/2 ML VIAL IV PRN ×2 (00:12→06:13)
[2016-12-04 00:33] VITALS: BP 109/68; PULSE 71; RESP 18; TEMP 97.3; O2SAT 97
[2016-12-04] MEDS: MORPHINE SULFATE 30 MG CONTROLLED RELEASE TAB PO SCH ×3 (06:08→22:20)
[2016-12-04 07:27] VITALS: BP 95/49; PULSE 59; RESP 18; TEMP 97.1; O2SAT 96
--- NOTE | 2016-12-04 07:40 | PD.ORT.PN ---
Subjective Subjective Remarks POD 24 s/p left tibia IMN and right tibia ORIF s/p left tibia soleus flap doing well. pain controlled. ambulating with walker Objective Vitals Vital Signs Date Time Temp Pulse Resp B/P Pulse Ox O2 Delivery O2 Flow Rate FiO2 12/04/16 07:27 97.1 59 18 95/49 96 12/04/16 05:00 16 12/04/16 00:33 97.3 71 18 109/68 97 12/03/16 20:40 96.8 70 18 104/63 96 12/03/16 17:47 98 21 12/03/16 16:06 18 12/03/16 16:00 96.0 62 18 119/69 98 12/03/16 15:45 18 12/03/16 14:16 98 12/03/16 11:40 97.1 70 18 104/71 98 12/03/16 09:30 18 I/O 12/03/16 12/03/16 12/03/16 12/04/16 12/04/16 12/04/16 06:59 14:59 22:59 06:59 14:59 22:59 Intake Total 480 ml 960 ml 360 ml 480 ml Output Total 500 ml 200 ml 700 ml Balance -20 ml 960 ml 160 ml -220 ml Intake Oral 480 ml 960 ml 360 ml 480 ml Output Urine Total 500 ml 200 ml 700 ml # Voids 4 # Bowel Movements 0 1 0 1 Result Diagram: 12/03/16 0857 12/03/16 0857 Imaging Last 24 hours Impressions Pelvis X-Ray 11/07/16 1355 Signed Impressions: Service Date/Time: Monday, November 07, 2016 13:34 - CONCLUSION: No acute disease. Behzad Finch Jr., MD Chest X-Ray 11/07/16 1355 Signed Impressions: Service Date/Time: Monday, November 07, 2016 13:34 - CONCLUSION: No acute disease. Jac Gonzales MD Objective Remarks sitting up in bed RLE: Dressings clean and dry. intact. with full sensation and motor function. + exfix. pin sites. clean LLE: Wound VAC intact. Good seal. no sensation over medial foot. inability to dorsiflex or flex toes/foot. Assessment & Plan Assessment and Plan 1) Right Open Tibia Fracture s/p exfix revision with ORIF - POD #24 2) Left Open Tibia Fracture s/p Soleus muscle flap with IMN and removal of exfix - POD #24 3) left tibia plateau fracture treated nonoperatively -NWB BLE -pin care BID right leg -vac changed at bedside -maintain vac left leg -vac settinmmHg, intermittent, 3:1 -will change vac at bedside tomorrow; have supplies in room Jef Steve Dec 04, 2016 07:40
[2016-12-04] MEDS: GABAPENTIN 300 MG CAP PO SCH ×3 (08:31→17:26)
[2016-12-04] MEDS: DOCUSATE SODIUM 50 MG/SENNA 8.6 MG TAB PO SCH ×2 (08:32→20:43)
[2016-12-04] MEDS: FERROUS SULFATE 325 MG (65 MG ELEMENTAL IRON) TAB PO SCH (08:32)
[2016-12-04] MEDS: ASPIRIN 81 MG CHEW TAB CHEW SCH (08:32)
[2016-12-04] MEDS: THIAMINE HCL 100 MG TAB PO SCH (08:32)
[2016-12-04] MEDS: PANTOPRAZOLE SOD 40 MG DELAYED RELEASE TAB PO SCH (08:32)
[2016-12-04] MEDS: FOLIC ACID 1 MG TAB PO SCH (08:32)
[2016-12-04] MEDS: CALCIUM/VITAMIN D 250 MG/125 U TAB PO SCH ×3 (08:32→17:25)
[2016-12-04] MEDS: LACTULOSE SYRUP 20 GM/30 ML CUP PO SCH (08:34)
[2016-12-04] MEDS: NEOMYCIN/POLYMYXIN/BACITRACIN OINT 15 GM TUBE TOPICAL SCH (08:34)
[2016-12-04] MEDS: SODIUM CHLORIDE 0.9% FLUSH 10 ML FLUSH IV FLUSH SCH ×2 (08:34→20:42)
[2016-12-04] MEDS: FLUTICASONE PROPIONATE 50 MCG/ACT 16 GM NASAL SPRAY EACH NARE SCH (08:34)
[2016-12-04] MEDS: PROPRANOLOL HCL 40 MG TAB PO SCH ×2 (08:34→20:36)
[2016-12-04] MEDS: CALCIUM CARBONATE 500 MG CHEWABLE TAB CHEW PRN ×2 (09:18→17:26)
[2016-12-04] MEDS: LACTOBACILLUS ACIDOPHILUS TAB PO SCH ×3 (11:25→17:25)
--- NOTE | 2016-12-04 11:32 | RADRPT ---
EXAM DATE/TIME: 12/04/2016 10:42 [facility] COMPARISON: No previous studies available for comparison. INDICATIONS : Nausea, vomiting. MEDICAL HISTORY : heart burn SURGICAL HISTORY : None. ENCOUNTER: Initial ACUITY: 3 weeks PAIN SCORE: 0/10 LOCATION: Bilateral abdomen FINDINGS: Supine view of the abdomen was performed. The abdominal bowel gas pattern is normal. No abnormal ma sses, calcifications, or organomegaly is seen. The osseous structures are unremarkable. Vascular monica cifications are present. CONCLUSION: Unremarkable bowel gas pattern. Ronald Rao MD on December 04, 2016 at 11:14 Board Certified Radiologist. This report was verified electronically.
[2016-12-04] MEDS ORDERED: ALUMINUM/MAGNESIUM/SIMETH 30 ML CUP PO ONE (11:45)
[2016-12-04 12:00] VITALS: BP 106/61; PULSE 65; RESP 18; TEMP 96.5; O2SAT 95
--- NOTE | 2016-12-04 12:05 | HHI.PR ---
Subjective Remarks Follow-up visit bilateral leg trauma, external fixator in place. Patient seen and examined. Patient complaining of nausea with single episode of vomiting this morning. Reports he's had heartburn since yesterday afternoon. No relief with Tums the patient's been taking that he had brought in from the outside. Denies any abdominal pain. Denies any fever or chills. Does endorse 1 loose stool last night. Denies any chest pain or shortness of breath. Objective Vitals Vital Signs Date Time Temp Pulse Resp B/P Pulse Ox O2 Delivery O2 Flow Rate FiO2 12/04/16 07:27 97.1 59 18 95/49 96 12/04/16 05:00 16 12/04/16 00:33 97.3 71 18 109/68 97 12/03/16 20:40 96.8 70 18 104/63 96 12/03/16 17:47 98 21 12/03/16 16:06 18 12/03/16 16:00 96.0 62 18 119/69 98 12/03/16 15:45 18 12/03/16 14:16 98 12/03/16 11:40 97.1 70 18 104/71 98 I/O 12/03/16 12/03/16 12/03/16 12/04/16 12/04/16 12/04/16 07:00 15:00 23:00 07:00 15:00 23:00 Intake Total 480 ml 960 ml 360 ml 480 ml Output Total 500 ml 200 ml 700 ml Balance -20 ml 960 ml 160 ml -220 ml Intake Oral 480 ml 960 ml 360 ml 480 ml Output Urine Total 500 ml 200 ml 700 ml # Voids 4 # Bowel Movements 0 1 0 1 Result Diagram: 12/03/16 0857 12/03/16 0857 Imaging Last Impressions Knee X-Ray 11/25/16 0000 Signed Impressions: Service Date/Time: Friday, November 25, 2016 06:44 - CONCLUSION: Post surgical changes are identified. Mumtaz Cornelius MD Tibia/Fibula X-Ray 11/24/16 0000 Signed Impressions: Service Date/Time: Thursday, November 24, 2016 10:06 - CONCLUSION: 1. Mildly displaced lateral tibial plateau fracture which is not clearly evident on the previous studies. 2. Otherwise stable left tibia status post ORIF. 3. Wound VAC remains in place. Dex F. Torri, MD Ankle X-Ray 11/24/16 0000 Signed Impressions: Service Date/Time: Thursday, November 24, 2016 10:08 - CONCLUSION: Stable satisfactory appearance of the right ankle as described. Dex Wild MD Chest X-Ray 11/20/16 0000 Signed Impressions: Service Date/Time: November 17:08 - CONCLUSION: 1. No acute abnormality or significant interval change. Sukhi Stevens MD Pelvis X-Ray 11/07/16 1355 Signed Impressions: Service Date/Time: Monday, November 07, 2016 13:34 - CONCLUSION: No acute disease. Behzad Finch Jr., MD Objective Remarks GENERAL: This is a well-nourished, well-developed patient, in no apparent distress. Awake and alert. Sitting up in hospital bed. SKIN: Warm and dry. Wound VAC in place left lower extremity draining serosanguineous fluid. HEENT: Normocephalic. Pupils equal round and reactive. Nose without bleeding. Airway patent. NECK: Trachea midline. No JVD. Supple. CARDIOVASCULAR: Regular rate and rhythm without murmurs, gallops, or rubs. RESPIRATORY: Clear to auscultation. Breath sounds equal bilaterally. No wheezes , rales, or rhonchi. GASTROINTESTINAL: Abdomen soft, non-tender, nondistended. Bowel Sounds normoactive x4. MUSCULOSKELETAL: Extremities without clubbing, cyanosis. Right lower extremity with external fixation in place. Left lower leg with Raul wrap's, wound vac in place. Bilateral toes able to wiggle weakly. Pulses palpable. Edema noted in bilateral feet. NEUROLOGICAL: Awake and alert. Oriented to time, place, person. No focal neuro deficit. Non-tremulous. Moves all extremities. Normal speech. Procedures 1.s/p I&D with ex fix application bilateral tibias s/p wound vac application left tibia 2.With the assistance of RN, under sterile technique the avulsed skin of the right middle finger was clipped. No bleeding noted. Patient gave consent 3.Open reduction internal fixation of right distal tibia and fibula fractures Nonoperative treatment left tibial plateau fracture Irrigation and debridement of left tibia shaft fracture, removal external fixation, soleus muscle rotational flap, intramedullary nail fixation left tibia , application of wound VAC dressing 4.11/13 Irrigation and debridement of left tibia, application wound VAC dressing 5. 11/28 Irrigation and debridement of left open tibia fracture with application of wound VAC dressing 6. 12/01 wound vac change at the bedside Medications and IVs Current Medications Medications (Trade) Dose Ordered Sig/Milagro Route Start Time Stop Time Status Last Admin (NS Flush) 2 ml UNSCH PRN IV FLUSH 11/07/16 14:30 11/18/16 11:14 (NS Flush) 2 ml BID IV FLUSH 11/07/16 21:00 12/03/16 21:05 (Zofran Inj) 4 mg Q6H PRN IV 11/07/16 14:30 12/04/16 06:13 (Narcan Inj) 0.4 mg UNSCH PRN IV 11/07/16 14:30 (Tylenol) 650 mg Q4H PRN PO 11/08/16 08:15 (Tums Chew) 1,000 mg TID PRN CHEW 11/08/16 08:15 12/04/16 09:18 (Vasotec Inj) 1.25 mg Q6H PRN IV 11/08/16 08:15 (Catapres) 0.1 mg Q6H PRN PO 11/08/16 08:15 (Aspirin Chew) 81 mg DAILY CHEW 11/08/16 12:45 12/04/16 08:32 (Ferrous Sulfate) 325 mg DAILY PO 11/08/16 12:45 12/04/16 08:32 (Prinivil) 25 mg DAILY PO 11/08/16 12:45 Hold 11/18/16 09:59 (Nitrostat Sl) 0.4 mg Q6HR PRN SL 11/08/16 12:45 (Protonix) 40 mg DAILY PO 11/08/16 12:45 12/04/16 08:32 (Pravachol) 80 mg HS PO 11/08/16 21:00 12/03/16 21:00 (Pill Splitter) 1 ea UNSCH PRN OTHER 11/08/16 12:45 (Elke-Colace) 1 tab BID PO 11/08/16 12:45 12/04/16 08:32 (Vitamin B1) 100 mg DAILY PO 11/09/16 09:00 12/04/16 08:32 (Romazicon Inj) 0.2 mg Q1M PRN IV PUSH 11/08/16 13:00 (Haldol Inj) 2 mg Q15M PRN IM 11/08/16 13:00 (Neosporin Oint) 1 applic DAILY TOPICAL 11/10/16 09:00 12/03/16 09:00 (Lactulose Liq) 30 ml DAILY PO 11/10/16 09:00 12/02/16 09:18 (Milk Of Magnesia Liq) 30 ml HS PO 11/10/16 21:00 12/02/16 20:30 (Oscal-D 250-125) 250 mg TID PO 11/10/16 13:00 12/04/16 08:32 (Ambien) 5 mg HS PRN PO 11/14/16 11:00 (Desyrel) 100 mg HS PO 11/14/16 21:00 12/03/16 21:00 (Neurontin) 600 mg TID PO 11/16/16 13:00 12/04/16 08:31 (Jackson 10-325 Mg) 1 tab Q4H PRN PO 11/20/16 00:45 12/03/16 08:04 (Dilaudid Pf Inj) 1 mg Q4H PRN IV PUSH 11/20/16 00:45 12/03/16 21:04 (Inderal) 40 mg Q12HR PO 11/22/16 21:00 12/03/16 21:00 (Compazine Inj) 10 mg Q8H PRN IV PUSH 11/25/16 16:15 11/25/16 18:00 (Milk Of Magnesia Liq) 30 ml Q12H PRN PO 11/28/16 11:30 11/29/16 12:43 (Senokot) 17.2 mg Q12H PRN PO 11/28/16 11:30 (Dulcolax Supp) 10 mg DAILY PRN RECTAL 11/28/16 11:30 11/29/16 13:48 (Jackson 10-325 Mg) 1.5 tab Q4H PRN PO 11/28/16 15:00 12/04/16 04:01 (Mycostatin Cream) 1 applic Q6HR TOPICAL 11/28/16 14:00 12/04/16 06:09 (ZyrTEC) 10 mg HS PO 12/01/16 21:00 12/08/16 20:59 12/03/16 21:00 (Flonase Jerzy Spr) 2 spray DAILY EACH NARE 12/01/16 11:00 12/15/16 10:59 12/04/16 08:34 (Folate) 1 mg DAILY PO 12/03/16 09:00 12/04/16 08:32 (Oramorph Sr) 30 mg Q8HR PO 12/03/16 14:00 12/04/16 06:08 (Lactinex) 1 tab TID PO 12/04/16 09:00 (Lovenox Inj) 40 mg DAILY SQ 12/05/16 09:00 A/P Problem List: (1) Fracture of tibia, left, open ICD Code: S82.202B Status: Acute (2) Fracture of tibia, right, open ICD Code: S82.201B Status: Acute (3) Hypotension ICD Code: I95.9 Status: Acute Assessment and Plan 61-year-old male admitted secondary to bilateral leg trauma after car fell on his legs while he was working on. Open fractures were present bilaterally. N/V Dyspepsia KUB requested patient informed his nurse if he has another loose stool and we will order C. difficile trial of Mylanta follow up on labs Zofran prn Monitor Bilateral open tibia-fibula fractures Left tibial plateau fracture s/p left tibia IMN and soleus flap s/p RIght tibia ORIF and application of external fixator with subsequent revision - Open fractures have been surgically repaired, right side has external fixation - Continue wound VAC left leg as per orthopedic surgery recommendations. s/ p wound vac change 12/02 at the bedside. Plan for repeat wound vac change tomorrow am. - left tibial plateau treated nonoperatively - Pin care BID to right leg - NWB BLEs - Lortab dose when necessary, Oramorph 30mg every 8 hours and IV Dilaudid 1mg q4H prn breakthrough pain. - discussed with MADIHA Chaudhari - patient cleared to resume Lovenox sq Acute blood loss anemia - Related to trauma vs post op blood loss - Status post transfusion of 2 units of packed red blood cells in 11/12/16. - Stable - on iron supplementation daily. Iron studies reviewed - iron 55, TIBC 273, %sat 20.1 and ferritin 208 - monitor CBC as indicated Coronary artery disease with h/o previous CABG - Appears stable. Patient is asymptomatic. - Continue propranolol and statin - ASA 81mg daily - Clonidine PRN Hypertension - RAUL inhibitor held due to hypotension. - Narcotics seem to have a depressive affect on this patient, however blood pressure has much improved after the patient was taken off IV morphine - Propranolol being tolerated by patient Diabetes mellitus type 2 - blood sugars consistently low - discontinue accucheks Alcohol abuse Transaminitis, resolved - AST and ALT now within normal range. - Continue with daily thiamine and folic acid - Alcohol cessation recommended Tobacco abuse - Cessation recommended. Chronic essential tremor - Continue Propranolol with holding parameters, HR <55 Hyponatremia - resolved Leukocytosis - Likely reactive. ID consulted, appreciate recommendations. - Blood cultures show no growth in 5 days - Completed Cefazolin IV, stop date 12/01/16 - resolved Dermatitis. Nystatin. wd care GI prophylaxis: PPI DVT prophylaxis: Lovenox sq Discussed with patient and Dr. Pickard Discharge Planning Pending Ortho clearance Problem Qualifiers (1) Fracture of tibia, left, open: Qualified Code: S82.255B - Type I or II open nondisplaced comminuted fracture of shaft of left tibia, initial encounter (2) Fracture of tibia, right, open: Qualified Code: S82.251C - Type III open displaced comminuted fracture of shaft of right tibia, initial encounter (3) Hypotension: Qualified Code: I95.89 - Other specified hypotension Mary De Luna Dec 04, 2016 12:05
[2016-12-04 14:17] VITALS: O2SAT 97
[2016-12-04 16:00] VITALS: BP 105/58; PULSE 63; RESP 18; TEMP 97.4; O2SAT 96
[2016-12-04 16:38] LABS: AUTOMATED NEUTROPHIL # 6.1 TH/MM3 (1.8-7.7); BASOPHIL # 0.1 TH/MM3 (0-0.2); BASOPHIL % 0.7 % (0.0-2.0); EOSINOPHIL # 0.2 TH/MM3 (0-0.4); EOSINOPHIL % 2.5 % (0.0-4.0); HEMATOCRIT 36.7 % (39.0-51.0); HEMO FLAGS DIFF FINAL; LYMPH % 21.4 % (9.0-44.0); MONO % 9.9 % (0.0-8.0); NEUT % 65.5 % (16.0-70.0); PLATELET COUNT 176 TH/MM3 (150-450); RED BLOOD COUNT 3.78 MIL/MM3 (4.50-5.90); WHITE BLOOD COUNT 9.3 TH/MM3 (4.0-11.0)
[2016-12-04 16:58] LABS: ANION GAP 6 MEQ/L (5-15); AST (GOT) 17 U/L (15-37); BICARBONATE 32.2 MEQ/L (21.0-32.0); BLOOD UREA NITROGEN 8 MG/DL (7-18); CHLORIDE 99 MEQ/L (98-107); GLOMERULAR FILTRATION RATE 98 ML/MIN (>89); POTASSIUM 4.1 MEQ/L (3.5-5.1); SODIUM (NA) 137 MEQ/L (136-145)
[2016-12-04 16:59] LABS: ALT (GPT) 10 U/L (12-78)
[2016-12-04 17:01] LABS: ALKALINE PHOSPHATASE 104 U/L (45-117); TOTAL BILIRUBIN ADULT 0.5 MG/DL (0.2-1.0)
[2016-12-04 20:30] VITALS: BP 102/69; PULSE 69; RESP 18; TEMP 96.8; O2SAT 96
[2016-12-04] MEDS: PRAVASTATIN SOD 80 MG TAB PO SCH (20:36)
[2016-12-04] MEDS: CETIRIZINE HCL 10 MG TAB PO SCH (20:36)
[2016-12-04] MEDS: traZODone HCL 100 MG TAB PO SCH (20:37)
[2016-12-04] MEDS: MAGNESIUM HYDROXIDE SUSP 30 ML CUP PO SCH (20:42)
[2016-12-05 00:36] VITALS: BP 108/64; PULSE 62; RESP 18; TEMP 98.2; O2SAT 97
[2016-12-05] MEDS: ACETAMINOPHEN/HYDROcodone 325 MG/10 MG TAB PO PRN ×5 (00:37→21:44)
[2016-12-05] MEDS: NYSTATIN 100,000 UNIT/GM CREAM 15 GM TOPICAL SCH ×5 (05:20→20:09)
[2016-12-05] MEDS: MORPHINE SULFATE 30 MG CONTROLLED RELEASE TAB PO SCH ×3 (06:03→20:08)
[2016-12-05] MEDS: HYDROmorphone HCL PF 1 MG/ML VIAL IV PUSH PRN ×3 (07:33→20:09)
[2016-12-05] MEDS: SODIUM CHLORIDE 0.9% FLUSH 10 ML FLUSH IV FLUSH SCH ×2 (07:35→20:09)
[2016-12-05 08:00] VITALS: BP 115/63; PULSE 60; RESP 20; TEMP 97.8; O2SAT 94
[2016-12-05] MEDS: DOCUSATE SODIUM 50 MG/SENNA 8.6 MG TAB PO SCH ×2 (08:10→20:07)
[2016-12-05] MEDS: PANTOPRAZOLE SOD 40 MG DELAYED RELEASE TAB PO SCH (08:10)
[2016-12-05] MEDS: GABAPENTIN 300 MG CAP PO SCH ×3 (08:10→16:56)
[2016-12-05] MEDS: LACTOBACILLUS ACIDOPHILUS TAB PO SCH ×2 (08:10→20:08)
[2016-12-05] MEDS: FERROUS SULFATE 325 MG (65 MG ELEMENTAL IRON) TAB PO SCH (08:11)
[2016-12-05] MEDS: CALCIUM/VITAMIN D 250 MG/125 U TAB PO SCH ×3 (08:11→16:56)
[2016-12-05] MEDS: FOLIC ACID 1 MG TAB PO SCH (08:11)
[2016-12-05] MEDS: THIAMINE HCL 100 MG TAB PO SCH (08:11)
[2016-12-05] MEDS: CALCIUM CARBONATE 500 MG CHEWABLE TAB CHEW PRN ×2 (08:11→16:56)
[2016-12-05] MEDS: ASPIRIN 81 MG CHEW TAB CHEW SCH (08:11)
[2016-12-05] MEDS: ENOXAPARIN SODIUM 40 MG/0.4 ML SYRINGE SQ SCH (08:12)
[2016-12-05] MEDS: PROPRANOLOL HCL 40 MG TAB PO SCH ×2 (08:12→20:07)
[2016-12-05] MEDS: LACTULOSE SYRUP 20 GM/30 ML CUP PO SCH (08:13)
[2016-12-05] MEDS: FLUTICASONE PROPIONATE 50 MCG/ACT 16 GM NASAL SPRAY EACH NARE SCH (08:17)
[2016-12-05] MEDS: NEOMYCIN/POLYMYXIN/BACITRACIN OINT 15 GM TUBE TOPICAL SCH (09:00)
--- NOTE | 2016-12-05 09:26 | HHI.PR ---
Subjective Remarks Follow-up visit bilateral leg trauma, external fixator in place. Patient seen and examined. Patient continues to have nausea. No further episodes of vomiting since yesterday am. Eating some but appetite decreased. Still complaining of "heart burn". Denies any abdominal pain. Previous EGD but patient can not recall when or the results. States he has heartburn frequently at home. Denies any relief from Mylanta or Tums. Denies any fever or chills. Denies any chest pain or SOB. Denies any diarrhea since the one loose stool he had night before last. Reports normal BM earlier today. s/p wound vac change at the bedside this morning. Objective Vitals Vital Signs Date Time Temp Pulse Resp B/P Pulse Ox O2 Delivery O2 Flow Rate FiO2 12/05/16 00:36 98.2 62 18 108/64 97 12/04/16 20:30 96.8 69 18 102/69 96 12/04/16 16:00 97.4 63 18 105/58 96 12/04/16 14:17 97 21 12/04/16 12:00 96.5 65 18 106/61 95 I/O 12/04/16 12/04/16 12/04/16 12/05/16 12/05/16 12/05/16 06:59 14:59 22:59 06:59 14:59 22:59 Intake Total 480 ml 480 ml 240 ml 240 ml Output Total 700 ml 500 ml Balance -220 ml 480 ml 240 ml -260 ml Intake Oral 480 ml 480 ml 240 ml 240 ml Output Urine Total 700 ml 500 ml # Voids 2 1 # Bowel Movements 1 1 0 Result Diagram: 12/04/16 1550 12/04/16 1550 Imaging Last Impressions Abdomen X-Ray 12/04/16 0000 Signed Impressions: Service Date/Time: November 10:42 - CONCLUSION: Unremarkable bowel gas pattern. Ronald Rao MD Knee X-Ray 11/25/16 0000 Signed Impressions: Service Date/Time: Friday, November 25, 2016 06:44 - CONCLUSION: Post surgical changes are identified. Mumtaz Cornelius MD Tibia/Fibula X-Ray 11/24/16 0000 Signed Impressions: Service Date/Time: Thursday, November 24, 2016 10:06 - CONCLUSION: 1. Mildly displaced lateral tibial plateau fracture which is not clearly evident on the previous studies. 2. Otherwise stable left tibia status post ORIF. 3. Wound VAC remains in place. Dex Wild MD Ankle X-Ray 11/24/16 0000 Signed Impressions: Service Date/Time: Thursday, November 24, 2016 10:08 - CONCLUSION: Stable satisfactory appearance of the right ankle as described. Dex Wild MD Chest X-Ray 11/20/16 0000 Signed Impressions: Service Date/Time: November 17:08 - CONCLUSION: 1. No acute abnormality or significant interval change. Sukhi Stevens MD Pelvis X-Ray 11/07/16 1355 Signed Impressions: Service Date/Time: Monday, November 07, 2016 13:34 - CONCLUSION: No acute disease. Behzad Finch Jr., MD Objective Remarks GENERAL: This is a well-nourished, well-developed patient, in no apparent distress. Awake and alert. Sitting up in hospital bed. SKIN: Warm and dry. Wound VAC in place left lower extremity draining serosanguineous fluid. Dressing C/D/I. HEENT: Normocephalic. Pupils equal round and reactive. Nose without bleeding. Airway patent. NECK: Trachea midline. No JVD. Supple. CARDIOVASCULAR: Regular rate and rhythm without murmurs, gallops, or rubs. RESPIRATORY: Clear to auscultation. Breath sounds equal bilaterally. No wheezes , rales, or rhonchi. GASTROINTESTINAL: Abdomen soft, non-tender, nondistended. Bowel Sounds normoactive x4. MUSCULOSKELETAL: Extremities without clubbing, cyanosis. Right lower extremity with external fixation in place. Left lower leg with Raul wrap's, wound vac in place. Bilateral toes able to wiggle weakly. Pulses palpable. Edema noted in bilateral feet. NEUROLOGICAL: Awake and alert. Oriented to time, place, person. No focal neuro deficit. Non-tremulous. Moves all extremities. Normal speech. Procedures 1.s/p I&D with ex fix application bilateral tibias s/p wound vac application left tibia 2.With the assistance of RN, under sterile technique the avulsed skin of the right middle finger was clipped. No bleeding noted. Patient gave consent 3.Open reduction internal fixation of right distal tibia and fibula fractures Nonoperative treatment left tibial plateau fracture Irrigation and debridement of left tibia shaft fracture, removal external fixation, soleus muscle rotational flap, intramedullary nail fixation left tibia , application of wound VAC dressing 4.11/13 Irrigation and debridement of left tibia, application wound VAC dressing 5. 11/28 Irrigation and debridement of left open tibia fracture with application of wound VAC dressing 6. 12/01 wound vac change at the bedside 7. 12/05 wound vac change at the bedside Medications and IVs Current Medications Medications (Trade) Dose Ordered Sig/Milagro Route Start Time Stop Time Status Last Admin (NS Flush) 2 ml UNSCH PRN IV FLUSH 11/07/16 14:30 11/18/16 11:14 (NS Flush) 2 ml BID IV FLUSH 11/07/16 21:00 12/05/16 07:35 (Zofran Inj) 4 mg Q6H PRN IV 11/07/16 14:30 12/04/16 06:13 (Narcan Inj) 0.4 mg UNSCH PRN IV 11/07/16 14:30 (Tylenol) 650 mg Q4H PRN PO 11/08/16 08:15 (Tums Chew) 1,000 mg TID PRN CHEW 11/08/16 08:15 12/05/16 08:11 (Vasotec Inj) 1.25 mg Q6H PRN IV 11/08/16 08:15 (Catapres) 0.1 mg Q6H PRN PO 11/08/16 08:15 (Aspirin Chew) 81 mg DAILY CHEW 11/08/16 12:45 12/05/16 08:11 (Ferrous Sulfate) 325 mg DAILY PO 11/08/16 12:45 12/05/16 08:11 (Prinivil) 25 mg DAILY PO 11/08/16 12:45 Hold 11/18/16 09:59 (Nitrostat Sl) 0.4 mg Q6HR PRN SL 11/08/16 12:45 (Protonix) 40 mg DAILY PO 11/08/16 12:45 12/05/16 08:10 (Pravachol) 80 mg HS PO 11/08/16 21:00 12/04/16 20:36 (Pill Splitter) 1 ea UNSCH PRN OTHER 11/08/16 12:45 (Elke-Colace) 1 tab BID PO 11/08/16 12:45 12/05/16 08:10 (Vitamin B1) 100 mg DAILY PO 11/09/16 09:00 12/05/16 08:11 (Romazicon Inj) 0.2 mg Q1M PRN IV PUSH 11/08/16 13:00 (Haldol Inj) 2 mg Q15M PRN IM 11/08/16 13:00 (Neosporin Oint) 1 applic DAILY TOPICAL 11/10/16 09:00 12/03/16 09:00 (Lactulose Liq) 30 ml DAILY PO 11/10/16 09:00 12/02/16 09:18 (Milk Of Magnesia Liq) 30 ml HS PO 11/10/16 21:00 12/02/16 20:30 (Oscal-D 250-125) 250 mg TID PO 11/10/16 13:00 12/05/16 08:11 (Ambien) 5 mg HS PRN PO 11/14/16 11:00 (Desyrel) 100 mg HS PO 11/14/16 21:00 12/04/16 20:37 (Neurontin) 600 mg TID PO 11/16/16 13:00 12/05/16 08:10 (Rule 10-325 Mg) 1 tab Q4H PRN PO 11/20/16 00:45 12/03/16 08:04 (Dilaudid Pf Inj) 1 mg Q4H PRN IV PUSH 11/20/16 00:45 12/05/16 07:33 (Inderal) 40 mg Q12HR PO 11/22/16 21:00 12/05/16 08:12 (Compazine Inj) 10 mg Q8H PRN IV PUSH 11/25/16 16:15 11/25/16 18:00 (Milk Of Magnesia Liq) 30 ml Q12H PRN PO 11/28/16 11:30 11/29/16 12:43 (Senokot) 17.2 mg Q12H PRN PO 11/28/16 11:30 (Dulcolax Supp) 10 mg DAILY PRN RECTAL 11/28/16 11:30 11/29/16 13:48 (Rule 10-325 Mg) 1.5 tab Q4H PRN PO 11/28/16 15:00 12/05/16 05:19 (Mycostatin Cream) 1 applic Q6HR TOPICAL 11/28/16 14:00 12/05/16 05:20 (ZyrTEC) 10 mg HS PO 12/01/16 21:00 12/08/16 20:59 12/04/16 20:36 (Flonase Jerzy Spr) 2 spray DAILY EACH NARE 12/01/16 11:00 12/15/16 10:59 12/05/16 08:17 (Folate) 1 mg DAILY PO 12/03/16 09:00 12/05/16 08:11 (Oramorph Sr) 30 mg Q8HR PO 12/03/16 14:00 12/05/16 06:03 (Lactinex) 1 tab TID PO 12/04/16 09:00 12/05/16 08:10 (Lovenox Inj) 40 mg DAILY SQ 12/05/16 09:00 12/05/16 08:12 (Mag-Al Plus Susp Liq) 30 ml Q6HR PRN PO 12/04/16 18:00 (Carafate Liq) 1 gm QID PO 12/05/16 09:00 A/P Problem List: (1) Fracture of tibia, left, open ICD Code: S82.202B Status: Acute (2) Fracture of tibia, right, open ICD Code: S82.201B Status: Acute (3) Hypotension ICD Code: I95.9 Status: Acute Assessment and Plan 61-year-old male admitted secondary to bilateral leg trauma after car fell on his legs while he was working on. Open fractures were present bilaterally. N/V Dyspepsia no vomiting but persistent nausea. Obtain Gallbladder US. KUB personally reviewed and was unremarkable requested patient informed his nurse if he has another loose stool and we will order C. difficile - no further episodes of diarrhea trial of Mylanta - no relief ppr. Continue Protonix 40mg daily. Add Carafate. normal white count. LFTs WNL. Lipase normal. Zofran prn Monitor Bilateral open tibia-fibula fractures Left tibial plateau fracture - Open fractures have been surgically repaired, right side has external fixation - Continue wound VAC left leg as per orthopedic surgery recommendations. s/ p wound vac change this morning. Repeat wound vac change on Thursday. - left tibial plateau treated nonoperatively - Pin care BID to right leg - NWB BLEs - Lortab dose when necessary, Oramorph 30mg every 8 hours and IV Dilaudid 1mg q4H prn breakthrough pain. - discussed with MADIHA Chaudhari - patient cleared to resume Lovenox sq Acute blood loss anemia - Related to trauma vs post op blood loss - Status post transfusion of 2 units of packed red blood cells in 11/12/16. - on iron supplementation daily. Iron studies reviewed. - hemoglobin trending up - monitor CBC as indicated Coronary artery disease with h/o previous CABG - Appears stable. Patient is asymptomatic. - Continue propranolol and statin - ASA 81mg daily - Clonidine PRN Hypertension - RAUL inhibitor held due to hypotension. - Narcotics seem to have a depressive affect on this patient, however blood pressure has much improved after the patient was taken off IV morphine - Propranolol being tolerated by patient Diabetes mellitus type 2 - blood sugars well controlled - d/c ISS and accucheks Alcohol abuse Transaminitis, resolved - AST and ALT now within normal range. - Continue with daily thiamine and folic acid - Alcohol cessation recommended Tobacco abuse - Cessation recommended. Chronic essential tremor - Continue Propranolol with holding parameters, HR <55 Leukocytosis - Likely reactive. ID consulted, appreciate recommendations. - Blood cultures show no growth in 5 days - Completed Cefazolin IV, stop date 12/01/16 - resolved GI prophylaxis: PPI DVT prophylaxis: Lovenox sq Discussed with patient and Dr. Pickard Discharge Planning Pending Ortho clearance Problem Qualifiers (1) Fracture of tibia, left, open: Qualified Code: S82.255B - Type I or II open nondisplaced comminuted fracture of shaft of left tibia, initial encounter (2) Fracture of tibia, right, open: Qualified Code: S82.251C - Type III open displaced comminuted fracture of shaft of right tibia, initial encounter (3) Hypotension: Qualified Code: I95.89 - Other specified hypotension Mary De Luna Dec 05, 2016 09:26
[2016-12-05] MEDS: SUCRALFATE 1 GM/10 ML CUP PO SCH ×4 (09:27→20:08)
--- NOTE | 2016-12-05 09:41 | PD.ORT.PN ---
Subjective Subjective Remarks POD 25 s/p left tibia IMN and right tibia ORIF s/p left tibia soleus flap s/p left tibial plateau fracture doing well. pain controlled. ambulating with wheelchair Objective Vitals Vital Signs Date Time Temp Pulse Resp B/P Pulse Ox O2 Delivery O2 Flow Rate FiO2 12/05/16 00:36 98.2 62 18 108/64 97 12/04/16 20:30 96.8 69 18 102/69 96 12/04/16 16:00 97.4 63 18 105/58 96 12/04/16 14:17 97 21 12/04/16 12:00 96.5 65 18 106/61 95 I/O 12/04/16 12/04/16 12/04/16 12/05/16 12/05/16 12/05/16 07:00 15:00 23:00 07:00 15:00 23:00 Intake Total 480 ml 480 ml 240 ml 240 ml Output Total 700 ml 500 ml Balance -220 ml 480 ml 240 ml -260 ml Intake Oral 480 ml 480 ml 240 ml 240 ml Output Urine Total 700 ml 500 ml # Voids 2 1 # Bowel Movements 1 1 0 Result Diagram: 12/04/16 1550 12/04/16 1550 Imaging Last 24 hours Impressions Pelvis X-Ray 11/07/16 1355 Signed Impressions: Service Date/Time: Monday, November 07, 2016 13:34 - CONCLUSION: No acute disease. Behzad Finch Jr., MD Chest X-Ray 11/07/16 1355 Signed Impressions: Service Date/Time: Monday, November 07, 2016 13:34 - CONCLUSION: No acute disease. Jac Gonzales MD Objective Remarks sitting up in bed RLE: Dressings clean and dry. intact. with full sensation and motor function. + exfix. pin sites. clean LLE: Wound VAC intact. Good seal. no sensation over medial foot. inability to dorsiflex or flex toes/foot. vac removed and wound visualized. clean. + granulation tissue. Assessment & Plan Assessment and Plan 1) Right Open Tibia Fracture s/p exfix revision with ORIF - POD #25 2) Left Open Tibia Fracture s/p Soleus muscle flap with IMN and removal of exfix - POD #25 3) left tibia plateau fracture treated nonoperatively -NWB BLE -pin care BID right leg -vac changed at bedside today -maintain vac left leg -vac settinmmHg, intermittent, 3:1 -plan for another vac change catarino/Jef Tapia Dec 05, 2016 09:41
--- NOTE | 2016-12-05 09:49 | RADRPT ---
EXAM DATE/TIME: 12/05/2016 08:38 [facility] COMPARISON: No previous studies available for comparison. INDICATIONS : Nausea and vomiting. MEDICAL HISTORY : No additional SURGICAL HISTORY : No additional ENCOUNTER: Initial ACUITY: 1 day PAIN SCORE: 0/10 LOCATION: Right upper quadrant MEASUREMENTS: LIVER: 14.8 cm length COMMON DUCT: 4 mm RIGHT KIDNEY: 10.8 x 5.3 x 5.3 cm FINDINGS: LIVER: Normal echotexture without focal lesion or ductal dilatation. COMMON DUCT: No intraluminal mass or stone visualized. GALLBLADDER: Contains no stones, demonstrates no wall thickening or pericholecystic fluid. PANCREAS: Could not visualize or evaluate due to overlying bowel gas. RIGHT KIDNEY: No evidence of hydronephrosis, stone, or mass. CONCLUSION: Unremarkable exam. Gallbladder is within normal limits with no evidence of cholelithi asis. Ronald Rao MD on December 05, 2016 at 9:47 Board Certified Radiologist. This report was verified electronically.
[2016-12-05] MEDS: SODIUM CHLORIDE 0.9% FLUSH 10 ML FLUSH IV FLUSH PRN (12:05)
[2016-12-05 12:40] VITALS: BP 108/59; PULSE 61; RESP 20; TEMP 95.7; O2SAT 96
[2016-12-05 16:00] VITALS: BP 106/60; PULSE 63; RESP 20; TEMP 96.5; O2SAT 96
[2016-12-05 17:59] VITALS: O2SAT 96
[2016-12-05 19:00] VITALS: BP 118/69; PULSE 64; RESP 18; TEMP 97; O2SAT 97
[2016-12-05] MEDS: CETIRIZINE HCL 10 MG TAB PO SCH (20:07)
[2016-12-05] MEDS: PRAVASTATIN SOD 80 MG TAB PO SCH (20:07)
[2016-12-05] MEDS: traZODone HCL 100 MG TAB PO SCH (20:08)
[2016-12-05] MEDS: MAGNESIUM HYDROXIDE SUSP 30 ML CUP PO SCH (20:08)
[2016-12-05] MEDS: ALUMINUM/MAGNESIUM/SIMETH 30 ML CUP PO PRN (20:13)
[2016-12-06] VITALS (7 sets, daily range): BP systolic 85–113; BP diastolic 54–70; PULSE 60–66; RESP 16–19; TEMP 96.7–98.9; O2SAT 93–99
[2016-12-06] MEDS: HYDROmorphone HCL PF 1 MG/ML VIAL IV PUSH PRN (00:04)
[2016-12-06] MEDS: ACETAMINOPHEN/HYDROcodone 325 MG/10 MG TAB PO PRN ×4 (04:00→20:22)
[2016-12-06] MEDS: NYSTATIN 100,000 UNIT/GM CREAM 15 GM TOPICAL SCH ×4 (06:00→20:23)
[2016-12-06] MEDS: MORPHINE SULFATE 30 MG CONTROLLED RELEASE TAB PO SCH ×3 (06:13→20:22)
[2016-12-06] MEDS: CALCIUM CARBONATE 500 MG CHEWABLE TAB CHEW PRN (08:52)
[2016-12-06] MEDS: LACTOBACILLUS ACIDOPHILUS TAB PO SCH ×2 (08:52→20:22)
[2016-12-06] MEDS: SUCRALFATE 1 GM/10 ML CUP PO SCH ×4 (08:52→20:23)
[2016-12-06] MEDS: ALUMINUM/MAGNESIUM/SIMETH 30 ML CUP PO PRN (08:52)
[2016-12-06] MEDS: PANTOPRAZOLE SOD 40 MG DELAYED RELEASE TAB PO SCH (08:52)
[2016-12-06] MEDS: FOLIC ACID 1 MG TAB PO SCH (08:52)
[2016-12-06] MEDS: ENOXAPARIN SODIUM 40 MG/0.4 ML SYRINGE SQ SCH (08:52)
[2016-12-06] MEDS: DOCUSATE SODIUM 50 MG/SENNA 8.6 MG TAB PO SCH ×2 (08:53→20:22)
[2016-12-06] MEDS: GABAPENTIN 300 MG CAP PO SCH ×3 (08:53→17:06)
[2016-12-06] MEDS: THIAMINE HCL 100 MG TAB PO SCH (08:53)
[2016-12-06] MEDS: ASPIRIN 81 MG CHEW TAB CHEW SCH (08:53)
[2016-12-06] MEDS: CALCIUM/VITAMIN D 250 MG/125 U TAB PO SCH ×3 (08:53→17:06)
[2016-12-06] MEDS: PROPRANOLOL HCL 40 MG TAB PO SCH ×2 (08:53→20:22)
[2016-12-06] MEDS: FLUTICASONE PROPIONATE 50 MCG/ACT 16 GM NASAL SPRAY EACH NARE SCH (08:57)
[2016-12-06] MEDS: SODIUM CHLORIDE 0.9% FLUSH 10 ML FLUSH IV FLUSH SCH ×2 (08:57→20:23)
[2016-12-06] MEDS: LACTULOSE SYRUP 20 GM/30 ML CUP PO SCH (08:57)
[2016-12-06] MEDS: NEOMYCIN/POLYMYXIN/BACITRACIN OINT 15 GM TUBE TOPICAL SCH (08:57)
--- NOTE | 2016-12-06 10:00 | HHI.PR ---
Subjective Remarks Follow-up visit bilateral leg trauma, external fixator in place. Patient seen and examined. Patient reports vomiting last night. States he feels much better today. No nausea. Looking forward to breakfast. Denies any fever or chills. Denies any chest pain or SOB. (+)BM yesterday. No diarrhea. Leg pain fairly well controlled. Objective Vitals Vital Signs Date Time Temp Pulse Resp B/P Pulse Ox O2 Delivery O2 Flow Rate FiO2 12/06/16 08:48 97.0 63 16 111/70 93 12/06/16 00:00 97.8 64 17 102/61 95 12/05/16 19:00 97.0 64 18 118/69 97 12/05/16 19:00 97.0 64 18 118/69 97 12/05/16 17:59 96 21 12/05/16 16:00 96.5 63 20 106/60 96 12/05/16 12:40 95.7 61 20 108/59 96 I/O 12/05/16 12/05/16 12/05/16 12/06/16 12/06/16 12/06/16 07:00 15:00 23:00 07:00 15:00 23:00 Intake Total 240 ml 480 ml 480 ml Output Total 500 ml 100 ml 0 ml 0 ml Balance -260 ml -100 ml 480 ml 480 ml Intake Oral 240 ml 480 ml 480 ml Output Urine Total 500 ml Drainage Total 100 ml 0 ml 0 ml # Voids 3 3 # Bowel Movements 1 0 Result Diagram: 12/04/16 1550 12/04/16 1550 Imaging Last Impressions Gall Bladder Ultrasound 12/05/16 0000 Signed Impressions: Service Date/Time: Monday, December 05, 2016 08:38 - CONCLUSION: Unremarkable exam. Gallbladder is within normal limits with no evidence of cholelithiasis. Ronald Rao MD Abdomen X-Ray 12/04/16 0000 Signed Impressions: Service Date/Time: November 10:42 - CONCLUSION: Unremarkable bowel gas pattern. Ronald Rao MD Knee X-Ray 11/25/16 0000 Signed Impressions: Service Date/Time: Friday, November 25, 2016 06:44 - CONCLUSION: Post surgical changes are identified. Mumtaz Cornelius MD Tibia/Fibula X-Ray 11/24/16 0000 Signed Impressions: Service Date/Time: Thursday, November 24, 2016 10:06 - CONCLUSION: 1. Mildly displaced lateral tibial plateau fracture which is not clearly evident on the previous studies. 2. Otherwise stable left tibia status post ORIF. 3. Wound VAC remains in place. Dex Wild MD Ankle X-Ray 11/24/16 0000 Signed Impressions: Service Date/Time: Thursday, November 24, 2016 10:08 - CONCLUSION: Stable satisfactory appearance of the right ankle as described. Dex Wild MD Chest X-Ray 11/20/16 0000 Signed Impressions: Service Date/Time: November 17:08 - CONCLUSION: 1. No acute abnormality or significant interval change. Sukhi Stevens MD Pelvis X-Ray 11/07/16 1355 Signed Impressions: Service Date/Time: Monday, November 07, 2016 13:34 - CONCLUSION: No acute disease. Behzad Finch Jr., MD Objective Remarks GENERAL: This is a well-nourished, well-developed patient, in no apparent distress. Awake and alert. Sitting up in hospital bed. SKIN: Warm and dry. Wound VAC in place left lower extremity draining serosanguineous fluid. Dressing C/D/I. HEENT: Normocephalic. EOMI. Nose without bleeding. MMM. Airway patent. NECK: Trachea midline. Supple. CARDIOVASCULAR: Regular rate and rhythm without murmurs, gallops, or rubs. RESPIRATORY: Clear to auscultation. Breath sounds equal bilaterally. No wheezes , rales, or rhonchi. GASTROINTESTINAL: Abdomen soft, non-tender, nondistended. Bowel Sounds normoactive x4. MUSCULOSKELETAL: Extremities without clubbing, cyanosis. Right lower extremity with external fixation in place. Left lower leg with Raul wrap's, wound vac in place. Bilateral toes able to wiggle weakly. Pulses palpable. Edema noted in bilateral feet. NEUROLOGICAL: Awake and alert. Oriented to time, place, person. No focal neuro deficit. Non-tremulous. Moves all extremities. Normal speech. Procedures 1.s/p I&D with ex fix application bilateral tibias s/p wound vac application left tibia 2.With the assistance of RN, under sterile technique the avulsed skin of the right middle finger was clipped. No bleeding noted. Patient gave consent 3.Open reduction internal fixation of right distal tibia and fibula fractures Nonoperative treatment left tibial plateau fracture Irrigation and debridement of left tibia shaft fracture, removal external fixation, soleus muscle rotational flap, intramedullary nail fixation left tibia , application of wound VAC dressing 4.11/13 Irrigation and debridement of left tibia, application wound VAC dressing 5. 11/28 Irrigation and debridement of left open tibia fracture with application of wound VAC dressing 6. 12/01 wound vac change at the bedside 7. 12/05 wound vac change at the bedside Medications and IVs Current Medications Medications (Trade) Dose Ordered Sig/Milagro Route Start Time Stop Time Status Last Admin (NS Flush) 2 ml UNSCH PRN IV FLUSH 11/07/16 14:30 12/05/16 12:05 (NS Flush) 2 ml BID IV FLUSH 11/07/16 21:00 12/05/16 20:09 (Zofran Inj) 4 mg Q6H PRN IV 11/07/16 14:30 12/04/16 06:13 (Narcan Inj) 0.4 mg UNSCH PRN IV 11/07/16 14:30 (Tylenol) 650 mg Q4H PRN PO 11/08/16 08:15 (Tums Chew) 1,000 mg TID PRN CHEW 11/08/16 08:15 12/06/16 08:52 (Vasotec Inj) 1.25 mg Q6H PRN IV 11/08/16 08:15 (Catapres) 0.1 mg Q6H PRN PO 11/08/16 08:15 (Aspirin Chew) 81 mg DAILY CHEW 11/08/16 12:45 12/06/16 08:53 (Prinivil) 25 mg DAILY PO 11/08/16 12:45 Hold 11/18/16 09:59 (Nitrostat Sl) 0.4 mg Q6HR PRN SL 11/08/16 12:45 (Protonix) 40 mg DAILY PO 11/08/16 12:45 12/06/16 08:52 (Pravachol) 80 mg HS PO 11/08/16 21:00 12/05/16 20:07 (Pill Splitter) 1 ea UNSCH PRN OTHER 11/08/16 12:45 (Elke-Colace) 1 tab BID PO 11/08/16 12:45 12/06/16 08:53 (Vitamin B1) 100 mg DAILY PO 11/09/16 09:00 12/06/16 08:53 (Romazicon Inj) 0.2 mg Q1M PRN IV PUSH 11/08/16 13:00 (Haldol Inj) 2 mg Q15M PRN IM 11/08/16 13:00 (Neosporin Oint) 1 applic DAILY TOPICAL 11/10/16 09:00 12/03/16 09:00 (Lactulose Liq) 30 ml DAILY PO 11/10/16 09:00 12/02/16 09:18 (Milk Of Magnesia Liq) 30 ml HS PO 11/10/16 21:00 12/05/16 20:08 (Oscal-D 250-125) 250 mg TID PO 11/10/16 13:00 12/06/16 08:53 (Ambien) 5 mg HS PRN PO 11/14/16 11:00 (Desyrel) 100 mg HS PO 11/14/16 21:00 12/05/16 20:08 (Neurontin) 600 mg TID PO 11/16/16 13:00 12/06/16 08:53 ([place] 10-325 Mg) 1 tab Q4H PRN PO 11/20/16 00:45 12/03/16 08:04 (Dilaudid Pf Inj) 1 mg Q4H PRN IV PUSH 11/20/16 00:45 12/06/16 00:04 (Inderal) 40 mg Q12HR PO 11/22/16 21:00 12/06/16 08:53 (Compazine Inj) 10 mg Q8H PRN IV PUSH 11/25/16 16:15 11/25/16 18:00 (Milk Of Magnesia Liq) 30 ml Q12H PRN PO 11/28/16 11:30 11/29/16 12:43 (Senokot) 17.2 mg Q12H PRN PO 11/28/16 11:30 (Dulcolax Supp) 10 mg DAILY PRN RECTAL 11/28/16 11:30 11/29/16 13:48 ([place] 10-325 Mg) 1.5 tab Q4H PRN PO 11/28/16 15:00 12/06/16 08:54 (Mycostatin Cream) 1 applic Q6HR TOPICAL 11/28/16 14:00 12/06/16 06:00 (ZyrTEC) 10 mg HS PO 12/01/16 21:00 12/08/16 20:59 12/05/16 20:07 (Flonase Jerzy Spr) 2 spray DAILY EACH NARE 12/01/16 11:00 12/15/16 10:59 12/06/16 08:57 (Folate) 1 mg DAILY PO 12/03/16 09:00 12/06/16 08:52 (Oramorph Sr) 30 mg Q8HR PO 12/03/16 14:00 12/06/16 06:13 (Lovenox Inj) 40 mg DAILY SQ 12/05/16 09:00 12/06/16 08:52 (Mag-Al Plus Susp Liq) 30 ml Q6HR PRN PO 12/04/16 18:00 12/06/16 08:52 (Carafate Liq) 1 gm QID PO 12/05/16 09:00 12/06/16 08:52 (Lactinex) 1 tab BID PO 12/05/16 21:00 12/06/16 08:52 A/P Problem List: (1) Fracture of tibia, left, open ICD Code: S82.202B Status: Acute (2) Fracture of tibia, right, open ICD Code: S82.201B Status: Acute (3) Hypotension ICD Code: I95.9 Status: Acute Assessment and Plan 61-year-old male admitted secondary to bilateral leg trauma after car fell on his legs while he was working on. Open fractures were present bilaterally. N/V Dyspepsia Improved Gallbladder personally reviewed and unremarkable KUB unremarkable requested patient informed his nurse if he has another loose stool and we will order C. difficile - no further episodes of diarrhea trial of Mylanta - no relief ppr. Continue Protonix 40mg daily. Continue Carafate. normal white count. LFTs WNL. Lipase normal. Zofran prn Monitor Bilateral open tibia-fibula fractures Left tibial plateau fracture - Open fractures have been surgically repaired, right side has external fixation - Continue wound VAC left leg as per orthopedic surgery recommendations. s/ p wound vac change yesterday. Repeat wound vac change on Thursday. - left tibial plateau treated nonoperatively - Pin care BID to right leg - NWB BLEs - Lortab dose when necessary, Oramorph 30mg every 8 hours and IV Dilaudid 1mg q4H prn breakthrough pain. - discussed with MADIHA Chaudhari - patient cleared to resume Lovenox sq Acute blood loss anemia - Related to trauma vs post op blood loss - Status post transfusion of 2 units of packed red blood cells in 11/12/16. - on iron supplementation daily. Iron studies reviewed. - hemoglobin trending up - monitor CBC as indicated Coronary artery disease with h/o previous CABG - Appears stable. Patient is asymptomatic. - Continue propranolol and statin - ASA 81mg daily - Clonidine PRN Hypertension - RAUL inhibitor held due to hypotension. - Narcotics seem to have a depressive affect on this patient, however blood pressure has much improved after the patient was taken off IV morphine - Propranolol being tolerated by patient Diabetes mellitus type 2 - blood sugars well controlled - d/c ISS and accucheks Alcohol abuse Transaminitis, resolved - AST and ALT now within normal range. - Continue with daily thiamine and folic acid - Alcohol cessation recommended Tobacco abuse - Cessation recommended. Chronic essential tremor - Continue Propranolol with holding parameters, HR <55 Leukocytosis - Likely reactive. ID consulted, appreciate recommendations. - Blood cultures show no growth in 5 days - Completed Cefazolin IV, stop date 12/01/16 - resolved GI prophylaxis: PPI DVT prophylaxis: Lovenox sq Discussed with patient, nursing staff and Dr. Pickard Discharge Planning Pending Ortho clearance Problem Qualifiers (1) Fracture of tibia, left, open: Qualified Code: S82.255B - Type I or II open nondisplaced comminuted fracture of shaft of left tibia, initial encounter (2) Fracture of tibia, right, open: Qualified Code: S82.251C - Type III open displaced comminuted fracture of shaft of right tibia, initial encounter (3) Hypotension: Qualified Code: I95.89 - Other specified hypotension Mary De Luna Dec 06, 2016 10:00
[2016-12-06] MEDS: BISACODYL 10 MG SUPP RECTAL PRN (17:06)
[2016-12-06] MEDS: MAGNESIUM HYDROXIDE SUSP 30 ML CUP PO SCH (20:21)
[2016-12-06] MEDS: CETIRIZINE HCL 10 MG TAB PO SCH (20:22)
[2016-12-06] MEDS: traZODone HCL 100 MG TAB PO SCH (20:23)
[2016-12-06] MEDS: PRAVASTATIN SOD 80 MG TAB PO SCH (20:23)
[2016-12-07] MEDS: ACETAMINOPHEN/HYDROcodone 325 MG/10 MG TAB PO PRN ×4 (00:20→17:27)
[2016-12-07] MEDS: HYDROmorphone HCL PF 1 MG/ML VIAL IV PUSH PRN (03:51)
[2016-12-07] MEDS: NYSTATIN 100,000 UNIT/GM CREAM 15 GM TOPICAL SCH ×4 (05:45→20:05)
[2016-12-07] MEDS: MORPHINE SULFATE 30 MG CONTROLLED RELEASE TAB PO SCH ×3 (05:45→20:04)
[2016-12-07 07:53] VITALS: BP 118/68; PULSE 66; RESP 18; TEMP 96.5; O2SAT 97
[2016-12-07] MEDS: CALCIUM/VITAMIN D 250 MG/125 U TAB PO SCH ×3 (09:15→17:26)
[2016-12-07] MEDS: THIAMINE HCL 100 MG TAB PO SCH (09:15)
[2016-12-07] MEDS: ASPIRIN 81 MG CHEW TAB CHEW SCH (09:15)
[2016-12-07] MEDS: DOCUSATE SODIUM 50 MG/SENNA 8.6 MG TAB PO SCH ×2 (09:15→20:05)
[2016-12-07] MEDS: LACTOBACILLUS ACIDOPHILUS TAB PO SCH ×2 (09:15→20:03)
[2016-12-07] MEDS: NEOMYCIN/POLYMYXIN/BACITRACIN OINT 15 GM TUBE TOPICAL SCH (09:15)
[2016-12-07] MEDS: PROPRANOLOL HCL 40 MG TAB PO SCH ×2 (09:15→20:03)
[2016-12-07] MEDS: GABAPENTIN 300 MG CAP PO SCH ×3 (09:15→17:26)
[2016-12-07] MEDS: FLUTICASONE PROPIONATE 50 MCG/ACT 16 GM NASAL SPRAY EACH NARE SCH (09:15)
[2016-12-07] MEDS: SODIUM CHLORIDE 0.9% FLUSH 10 ML FLUSH IV FLUSH SCH ×2 (09:15→20:05)
[2016-12-07] MEDS: SUCRALFATE 1 GM/10 ML CUP PO SCH ×4 (09:15→20:04)
[2016-12-07] MEDS: FOLIC ACID 1 MG TAB PO SCH (09:15)
[2016-12-07] MEDS: ENOXAPARIN SODIUM 40 MG/0.4 ML SYRINGE SQ SCH (09:15)
[2016-12-07] MEDS: PANTOPRAZOLE SOD 40 MG DELAYED RELEASE TAB PO SCH (09:15)
[2016-12-07] MEDS: LACTULOSE SYRUP 20 GM/30 ML CUP PO SCH (09:15)
[2016-12-07 12:00] VITALS: BP 112/64; PULSE 70; RESP 18; TEMP 95.8; O2SAT 99
--- NOTE | 2016-12-07 15:43 | HHI.PR ---
Subjective Remarks Follow-up visit bilateral leg trauma, external fixator in place. Patient seen and examined today. Patient denies any stomach issues this morning. No recurrence of vomiting. Denies any nausea. Denies any abdominal pain. Reports he has a good appetite. Denies any fever of chills. Denies any chest pain or shortness of breath. Pain is controlled. Patient reports multiple bowel movements. Discussed with nursing staff - patient had Dulcolax suppository, MOM and Elke Colace yesterday. Objective Vitals Vital Signs Date Time Temp Pulse Resp B/P (MAP) Pulse Ox O2 Delivery O2 Flow Rate FiO2 12/07/16 12:00 95.8 70 18 112/64 (80) 99 12/07/16 07:53 96.5 66 18 118/68 (85) 97 12/06/16 23:58 97.3 66 18 112/65 (81) 98 12/06/16 19:27 97.1 60 19 112/68 (83) 98 12/06/16 16:00 98.9 64 16 113/69 (84) 99 I/O 12/06/16 12/06/16 12/06/16 12/07/16 12/07/16 12/07/16 06:59 14:59 22:59 06:59 14:59 22:59 Intake Total 480 ml 750 ml 720 ml 480 ml Output Total 0 ml 250 ml 850 ml Balance 480 ml 750 ml 470 ml -370 ml Intake Oral 480 ml 750 ml 720 ml 480 ml Output Urine Total 250 ml 850 ml Drainage Total 0 ml 0 ml 0 ml # Voids 3 3 3 # Bowel Movements 0 0 0 3 Result Diagram: 12/04/16 1550 12/04/16 1550 Imaging Last Impressions Gall Bladder Ultrasound 12/05/16 0000 Signed Impressions: Service Date/Time: Monday, December 05, 2016 08:38 - CONCLUSION: Unremarkable exam. Gallbladder is within normal limits with no evidence of cholelithiasis. Ronald Rao MD Abdomen X-Ray 12/04/16 0000 Signed Impressions: Service Date/Time: November 10:42 - CONCLUSION: Unremarkable bowel gas pattern. Ronald Rao MD Knee X-Ray 11/25/16 0000 Signed Impressions: Service Date/Time: Friday, November 25, 2016 06:44 - CONCLUSION: Post surgical changes are identified. Mumtaz Cornelius MD Tibia/Fibula X-Ray 11/24/16 0000 Signed Impressions: Service Date/Time: Thursday, November 24, 2016 10:06 - CONCLUSION: 1. Mildly displaced lateral tibial plateau fracture which is not clearly evident on the previous studies. 2. Otherwise stable left tibia status post ORIF. 3. Wound VAC remains in place. Dex Wild MD Ankle X-Ray 11/24/16 0000 Signed Impressions: Service Date/Time: Thursday, November 24, 2016 10:08 - CONCLUSION: Stable satisfactory appearance of the right ankle as described. Dex Wild MD Chest X-Ray 11/20/16 0000 Signed Impressions: Service Date/Time: November 17:08 - CONCLUSION: 1. No acute abnormality or significant interval change. Sukhi Stevens MD Pelvis X-Ray 11/07/16 1355 Signed Impressions: Service Date/Time: Monday, November 07, 2016 13:34 - CONCLUSION: No acute disease. Behzad Finch Jr., MD Objective Remarks GENERAL: This is a well-nourished, well-developed patient, in no apparent distress. Awake and alert. Sitting up in hospital bed. Appears comfortable. SKIN: Warm and dry. Wound VAC in place left lower extremity draining serosanguineous fluid. Dressing C/D/I. HEENT: Normocephalic. EOMI. Nose without bleeding. MMM. Airway patent. NECK: Trachea midline. Supple. CARDIOVASCULAR: Regular rate and rhythm without murmurs, gallops, or rubs. RESPIRATORY: Clear to auscultation. Breath sounds equal bilaterally. No wheezes , rales, or rhonchi. GASTROINTESTINAL: Abdomen soft, non-tender, nondistended. Bowel Sounds normoactive x4. MUSCULOSKELETAL: Extremities without clubbing, cyanosis. Right lower extremity with external fixation in place. Left lower leg with Raul wrap's, wound vac in place. Bilateral toes able to wiggle weakly. Pulses palpable. Edema noted in bilateral feet. NEUROLOGICAL: Awake and alert. Oriented to time, place, person. No focal neuro deficit. Non-tremulous. Moves all extremities. Normal speech. Procedures 1.s/p I&D with ex fix application bilateral tibias s/p wound vac application left tibia 2.With the assistance of RN, under sterile technique the avulsed skin of the right middle finger was clipped. No bleeding noted. Patient gave consent 3.Open reduction internal fixation of right distal tibia and fibula fractures Nonoperative treatment left tibial plateau fracture Irrigation and debridement of left tibia shaft fracture, removal external fixation, soleus muscle rotational flap, intramedullary nail fixation left tibia , application of wound VAC dressing 4.11/13 Irrigation and debridement of left tibia, application wound VAC dressing 5. 11/28 Irrigation and debridement of left open tibia fracture with application of wound VAC dressing 6. 12/01 wound vac change at the bedside 7. 12/05 wound vac change at the bedside Medications and IVs Current Medications Medications (Trade) Dose Ordered Sig/Milagro Route Start Time Stop Time Status Last Admin (NS Flush) 2 ml UNSCH PRN IV FLUSH 11/07/16 14:30 12/05/16 12:05 (NS Flush) 2 ml BID IV FLUSH 11/07/16 21:00 12/07/16 09:15 (Zofran Inj) 4 mg Q6H PRN IV 11/07/16 14:30 12/04/16 06:13 (Narcan Inj) 0.4 mg UNSCH PRN IV 11/07/16 14:30 (Tylenol) 650 mg Q4H PRN PO 11/08/16 08:15 (Tums Chew) 1,000 mg TID PRN CHEW 11/08/16 08:15 12/06/16 08:52 (Vasotec Inj) 1.25 mg Q6H PRN IV 11/08/16 08:15 (Catapres) 0.1 mg Q6H PRN PO 11/08/16 08:15 (Aspirin Chew) 81 mg DAILY CHEW 11/08/16 12:45 12/07/16 09:15 (Prinivil) 25 mg DAILY PO 11/08/16 12:45 Future Hold 11/18/16 09:59 (Nitrostat Sl) 0.4 mg Q6HR PRN SL 11/08/16 12:45 (Protonix) 40 mg DAILY PO 11/08/16 12:45 12/07/16 09:15 (Pravachol) 80 mg HS PO 11/08/16 21:00 12/06/16 20:23 (Pill Splitter) 1 ea UNSCH PRN OTHER 11/08/16 12:45 (Elke-Colace) 1 tab BID PO 11/08/16 12:45 12/07/16 09:15 (Vitamin B1) 100 mg DAILY PO 11/09/16 09:00 12/07/16 09:15 (Romazicon Inj) 0.2 mg Q1M PRN IV PUSH 11/08/16 13:00 (Haldol Inj) 2 mg Q15M PRN IM 11/08/16 13:00 (Neosporin Oint) 1 applic DAILY TOPICAL 11/10/16 09:00 12/07/16 09:15 (Lactulose Liq) 30 ml DAILY PO 11/10/16 09:00 12/02/16 09:18 (Milk Of Magnesia Liq) 30 ml HS PO 11/10/16 21:00 12/06/16 20:21 (Oscal-D 250-125) 250 mg TID PO 11/10/16 13:00 12/07/16 12:47 (Duoneb Neb) 1 ampule Q4HR NEB PRN NEB 11/12/16 13:15 (Ambien) 5 mg HS PRN PO 11/14/16 11:00 (Desyrel) 100 mg HS PO 11/14/16 21:00 12/06/16 20:23 (Neurontin) 600 mg TID PO 11/16/16 13:00 12/07/16 12:47 (Alden 10-325 Mg) 1 tab Q4H PRN PO 11/20/16 00:45 12/07/16 12:47 (Dilaudid Pf Inj) 1 mg Q4H PRN IV PUSH 11/20/16 00:45 12/07/16 03:51 (Inderal) 40 mg Q12HR PO 11/22/16 21:00 12/06/16 20:22 (Compazine Inj) 10 mg Q8H PRN IV PUSH 11/25/16 16:15 11/25/16 18:00 (Milk Of Magnesia Liq) 30 ml Q12H PRN PO 11/28/16 11:30 11/29/16 12:43 (Senokot) 17.2 mg Q12H PRN PO 11/28/16 11:30 (Dulcolax Supp) 10 mg DAILY PRN RECTAL 11/28/16 11:30 12/06/16 17:06 (Alden 10-325 Mg) 1.5 tab Q4H PRN PO 11/28/16 15:00 12/06/16 08:54 (Mycostatin Cream) 1 applic Q6HR TOPICAL 11/28/16 14:00 12/07/16 09:15 (ZyrTEC) 10 mg HS PO 12/01/16 21:00 12/08/16 20:59 12/06/16 20:22 (Flonase Jerzy Spr) 2 spray DAILY EACH NARE 12/01/16 11:00 12/15/16 10:59 12/07/16 09:15 (Folate) 1 mg DAILY PO 12/03/16 09:00 12/07/16 09:15 (Oramorph Sr) 30 mg Q8HR PO 12/03/16 14:00 12/07/16 14:32 (Lovenox Inj) 40 mg DAILY SQ 12/05/16 09:00 12/07/16 09:15 (Mag-Al Plus Susp Liq) 30 ml Q6HR PRN PO 12/04/16 18:00 12/06/16 08:52 (Carafate Liq) 1 gm QID PO 12/05/16 09:00 12/07/16 12:47 (Lactinex) 1 tab BID PO 12/05/16 21:00 12/07/16 09:15 A/P Problem List: (1) Fracture of tibia, left, open ICD Code: S82.202B - Unspecified fracture of shaft of left tibia, initial encounter for open fracture type I or II Status: Acute (2) Fracture of tibia, right, open ICD Code: S82.201B - Unspecified fracture of shaft of right tibia, initial encounter for open fracture type I or II Status: Acute (3) Hypotension ICD Code: I95.9 - Hypotension, unspecified Status: Acute Assessment and Plan 61-year-old male admitted secondary to bilateral leg trauma after car fell on his legs while he was working on. Open fractures were present bilaterally. N/V Dyspepsia Resolved Continue PPI and Carafate Multiple bowel movements likely due to receiving multiple constipation meds Patient does not appear septic. He is afebrile. Denies any N/V or abdominal pain. Good appetite. Bilateral open tibia-fibula fractures Left tibial plateau fracture - Open fractures have been surgically repaired, right side has external fixation - Continue wound VAC left leg as per orthopedic surgery recommendations. s/ p wound vac change Thursday. Repeat wound vac change on Thursday. - left tibial plateau treated nonoperatively - Pin care BID to right leg - NWB BLEs - Lortab dose when necessary, Oramorph 30mg every 8 hours and IV Dilaudid 1mg q4H prn breakthrough pain. - discussed with MADIHA Chaudhari - patient cleared to resume Lovenox sq Acute blood loss anemia - Related to trauma vs post op blood loss - Status post transfusion of 2 units of packed red blood cells in 11/12/16. - on iron supplementation daily. Iron studies reviewed. - hemoglobin trending up - monitor CBC as indicated Coronary artery disease with h/o previous CABG - Appears stable. Patient is asymptomatic. - Continue propranolol and statin - ASA 81mg daily - Clonidine PRN Hypertension - RAUL inhibitor held due to hypotension. - Narcotics seem to have a depressive affect on this patient, however blood pressure has much improved after the patient was taken off IV morphine - Propranolol being tolerated by patient Diabetes mellitus type 2 - blood sugars well controlled - d/c ISS and accucheks Alcohol abuse Transaminitis, resolved - AST and ALT now within normal range. - Continue with daily thiamine and folic acid - Alcohol cessation recommended Tobacco abuse - Cessation recommended. Chronic essential tremor - Continue Propranolol with holding parameters, HR <55 Leukocytosis - Likely reactive. ID consulted, appreciate recommendations. - Blood cultures show no growth in 5 days - Completed Cefazolin IV, stop date 12/01/16 - resolved GI prophylaxis: PPI DVT prophylaxis: Lovenox sq Discussed with patient, nursing staff and Dr. Pickard Discharge Planning Pending Ortho clearance Problem Qualifiers (1) Fracture of tibia, left, open: (2) Fracture of tibia, right, open: (3) Hypotension: Mary De Luna Dec 07, 2016 15:43
[2016-12-07 16:00] VITALS: BP 124/63; PULSE 69; RESP 18; TEMP 96.3; O2SAT 98
[2016-12-07] MEDS: CETIRIZINE HCL 10 MG TAB PO SCH (20:03)
[2016-12-07] MEDS: traZODone HCL 100 MG TAB PO SCH (20:03)
[2016-12-07] MEDS: PRAVASTATIN SOD 80 MG TAB PO SCH (20:03)
[2016-12-07] MEDS: MAGNESIUM HYDROXIDE SUSP 30 ML CUP PO SCH (20:05)
[2016-12-07 20:36] VITALS: BP 116/64; PULSE 69; RESP 19; TEMP 96.7; O2SAT 98
[2016-12-07 23:15] VITALS: BP 118/66; PULSE 67; RESP 18; TEMP 97.1; O2SAT 99
[2016-12-08] MEDS: ACETAMINOPHEN/HYDROcodone 325 MG/10 MG TAB PO PRN ×6 (01:11→20:09)
[2016-12-08] MEDS: HYDROmorphone HCL PF 1 MG/ML VIAL IV PUSH PRN ×4 (03:12→16:08)
[2016-12-08] MEDS: NYSTATIN 100,000 UNIT/GM CREAM 15 GM TOPICAL SCH ×3 (05:03→18:00)
[2016-12-08] MEDS: MORPHINE SULFATE 30 MG CONTROLLED RELEASE TAB PO SCH ×3 (05:03→22:18)
[2016-12-08 05:24] LABS: HEMATOCRIT 33.7 % (39.0-51.0); MEAN CELL VOLUME 94.9 FL (80.0-100.0); MEAN CORPUSCULAR HEMOGLOBIN 31.5 PG (27.0-34.0); MEAN CORPUSCULAR HGB CONC 33.2 % (32.0-36.0); PLATELET COUNT 181 TH/MM3 (150-450); RED BLOOD COUNT 3.55 MIL/MM3 (4.50-5.90); RED CELL DISTRIBUTION WIDTH 13.8 % (11.6-17.2); REVIEW FLAG FINAL; WHITE BLOOD COUNT 10.4 TH/MM3 (4.0-11.0)
[2016-12-08 05:28] LABS: PROTHROMBIN TIME - PATIENT 10.7 SEC (9.8-11.6)
[2016-12-08 05:33] LABS: BICARBONATE 29.8 MEQ/L (21.0-32.0); POTASSIUM 3.8 MEQ/L (3.5-5.1)
--- NOTE | 2016-12-08 06:54 | PD.ORT.PN ---
Subjective Subjective Remarks POD 28 s/p left tibia IMN and right tibia ORIF s/p left tibia soleus flap s/p left tibial plateau fracture doing well. pain controlled. ambulating with wheelchair Objective Vitals Vital Signs Date Time Temp Pulse Resp B/P (MAP) Pulse Ox O2 Delivery O2 Flow Rate FiO2 12/07/16 23:15 97.1 67 18 118/66 (83) 99 12/07/16 20:36 96.7 69 19 116/64 (81) 98 12/07/16 16:00 96.3 69 18 124/63 (83) 98 12/07/16 12:00 95.8 70 18 112/64 (80) 99 12/07/16 07:53 96.5 66 18 118/68 (85) 97 I/O 12/07/16 12/07/16 12/07/16 12/08/16 12/08/16 12/08/16 07:00 15:00 23:00 07:00 15:00 23:00 Intake Total 480 ml 960 ml 480 ml Output Total 850 ml 50 ml Balance -370 ml 960 ml 430 ml Intake Oral 480 ml 960 ml 480 ml Output Urine Total 850 ml Drainage Total 0 ml 50 ml # Voids 4 5 # Bowel Movements 3 3 0 Result Diagram: 12/08/16 0458 12/08/16 0458 Other Results Laboratory Tests Test 12/08/16 04:58 Prothromb Time International Ratio 1.0 RATIO Prothrombin Time 10.7 SEC (9.8-11.6) Imaging Last 24 hours Impressions Pelvis X-Ray 11/07/16 6388 Signed Impressions: Service Date/Time: Monday, November 07, 2016 13:34 - CONCLUSION: No acute disease. Behzad Finch Jr., MD Chest X-Ray 11/07/16 2301 Signed Impressions: Service Date/Time: Monday, November 07, 2016 13:34 - CONCLUSION: No acute disease. Jac Gonzales MD Objective Remarks sitting up in bed RLE: Dressings clean and dry. intact. with full sensation and motor function. + exfix. pin sites. clean LLE: Wound VAC intact. Good seal. no sensation over medial foot. inability to dorsiflex or flex toes/foot. vac removed and wound visualized. clean. + granulation tissue. Assessment & Plan Assessment and Plan 1) Right Open Tibia Fracture s/p exfix revision with ORIF - POD #28 2) Left Open Tibia Fracture s/p Soleus muscle flap with IMN and removal of exfix - POD #28 3) left tibia plateau fracture treated nonoperatively -NWB BLE -pin care BID right leg -vac changed at bedside today -maintain vac left leg -vac settinmmHg, intermittent, 3:1 -plan for vac change and I&D in OR tomorrow -NPO Jef Esteban Dec 08, 2016 06:54
[2016-12-08 07:52] VITALS: BP 107/58; PULSE 57; RESP 17; TEMP 98.4; O2SAT 100
[2016-12-08] MEDS: FOLIC ACID 1 MG TAB PO SCH (08:00)
[2016-12-08] MEDS: ENOXAPARIN SODIUM 40 MG/0.4 ML SYRINGE SQ SCH (08:00)
[2016-12-08] MEDS: SUCRALFATE 1 GM/10 ML CUP PO SCH ×4 (08:00→20:09)
[2016-12-08] MEDS: THIAMINE HCL 100 MG TAB PO SCH (08:01)
[2016-12-08] MEDS: LACTOBACILLUS ACIDOPHILUS TAB PO SCH ×2 (08:01→20:08)
[2016-12-08] MEDS: PROPRANOLOL HCL 40 MG TAB PO SCH (08:01)
[2016-12-08] MEDS: PANTOPRAZOLE SOD 40 MG DELAYED RELEASE TAB PO SCH (08:02)
[2016-12-08] MEDS: GABAPENTIN 300 MG CAP PO SCH ×3 (08:02→16:08)
[2016-12-08] MEDS: CALCIUM/VITAMIN D 250 MG/125 U TAB PO SCH ×3 (08:02→16:08)
[2016-12-08] MEDS: ASPIRIN 81 MG CHEW TAB CHEW SCH (08:02)
[2016-12-08] MEDS: LACTULOSE SYRUP 20 GM/30 ML CUP PO SCH (08:06)
[2016-12-08] MEDS: DOCUSATE SODIUM 50 MG/SENNA 8.6 MG TAB PO SCH ×2 (08:06→20:10)
[2016-12-08] MEDS: NEOMYCIN/POLYMYXIN/BACITRACIN OINT 15 GM TUBE TOPICAL SCH (09:00)
[2016-12-08] MEDS: FLUTICASONE PROPIONATE 50 MCG/ACT 16 GM NASAL SPRAY EACH NARE SCH (09:00)
[2016-12-08] MEDS: SODIUM CHLORIDE 0.9% FLUSH 10 ML FLUSH IV FLUSH SCH ×2 (09:00→20:13)
[2016-12-08] MEDS ORDERED: POLYETHYLENE GLYCOL 17 GM PKG PO PRN (10:00)
--- NOTE | 2016-12-08 10:03 | HHI.PR ---
Subjective Remarks Follow-up visit bilateral leg trauma, external fixator in place. Patient seen and examined today. He endorses poor sleep last night. Diarrhea resolved - laxatives on hold. Patient denies any nausea, vomiting or abdominal pain. Denies any fever or chills. Denies any chest pain or shortness of breath. Wound vac change at the bedside. OR procedure in am for possible skin flap or wound vac change intraop. NPO after MN. Objective Vitals Vital Signs Date Time Temp Pulse Resp B/P (MAP) Pulse Ox O2 Delivery O2 Flow Rate FiO2 12/08/16 07:52 98.4 57 17 107/58 (74) 100 12/07/16 23:15 97.1 67 18 118/66 (83) 99 12/07/16 20:36 96.7 69 19 116/64 (81) 98 12/07/16 16:00 96.3 69 18 124/63 (83) 98 12/07/16 12:00 95.8 70 18 112/64 (80) 99 I/O 12/07/16 12/07/16 12/07/16 12/08/16 12/08/16 12/08/16 07:00 15:00 23:00 07:00 15:00 23:00 Intake Total 480 ml 960 ml 480 ml 720 ml Output Total 850 ml 50 ml 750 ml Balance -370 ml 960 ml 430 ml -30 ml Intake Oral 480 ml 960 ml 480 ml 720 ml Output Urine Total 850 ml 750 ml Drainage Total 0 ml 50 ml 0 ml # Voids 4 5 # Bowel Movements 3 3 0 0 Result Diagram: 12/08/16 0458 12/08/16 0458 Imaging Last Impressions Gall Bladder Ultrasound 12/05/16 0000 Signed Impressions: Service Date/Time: Monday, December 05, 2016 08:38 - CONCLUSION: Unremarkable exam. Gallbladder is within normal limits with no evidence of cholelithiasis. Ronald Rao MD Abdomen X-Ray 12/04/16 0000 Signed Impressions: Service Date/Time: November 10:42 - CONCLUSION: Unremarkable bowel gas pattern. Ronald Rao MD Knee X-Ray 11/25/16 0000 Signed Impressions: Service Date/Time: Friday, November 25, 2016 06:44 - CONCLUSION: Post surgical changes are identified. Mumtaz Cornelius MD Tibia/Fibula X-Ray 11/24/16 0000 Signed Impressions: Service Date/Time: Thursday, November 24, 2016 10:06 - CONCLUSION: 1. Mildly displaced lateral tibial plateau fracture which is not clearly evident on the previous studies. 2. Otherwise stable left tibia status post ORIF. 3. Wound VAC remains in place. Dex Wild MD Ankle X-Ray 11/24/16 0000 Signed Impressions: Service Date/Time: Thursday, November 24, 2016 10:08 - CONCLUSION: Stable satisfactory appearance of the right ankle as described. Dex Wild MD Chest X-Ray 11/20/16 0000 Signed Impressions: Service Date/Time: November 17:08 - CONCLUSION: 1. No acute abnormality or significant interval change. Sukhi Stevens MD Pelvis X-Ray 11/07/16 1355 Signed Impressions: Service Date/Time: Monday, November 07, 2016 13:34 - CONCLUSION: No acute disease. Behzad Finch Jr., MD Objective Remarks GENERAL: This is a well-nourished, well-developed patient, in no apparent distress. Awake and alert. Sitting up in hospital bed. Looks tired. SKIN: Warm and dry. Wound VAC in place left lower extremity draining serosanguineous fluid. Dressing C/D/I. HEENT: Normocephalic. EOMI. Nose without bleeding. MMM. Airway patent. NECK: Trachea midline. Supple. CARDIOVASCULAR: Regular rate and rhythm without murmurs, gallops, or rubs. RESPIRATORY: Clear to auscultation. Breath sounds equal bilaterally. No wheezes , rales, or rhonchi. GASTROINTESTINAL: Abdomen soft, non-tender, nondistended. Bowel Sounds normoactive x4. MUSCULOSKELETAL: Extremities without clubbing, cyanosis. Right lower extremity with external fixation in place. Left lower leg with Raul wrap's, wound vac in place. Bilateral toes able to wiggle weakly. Pulses palpable. Edema noted in bilateral feet. NEUROLOGICAL: Awake and alert. Oriented to time, place, person. No focal neuro deficit. Non-tremulous. Moves all extremities. Decreased sensation to light touch tops of both feet. Normal speech. Procedures 1.s/p I&D with ex fix application bilateral tibias s/p wound vac application left tibia 2.With the assistance of RN, under sterile technique the avulsed skin of the right middle finger was clipped. No bleeding noted. Patient gave consent 3.Open reduction internal fixation of right distal tibia and fibula fractures Nonoperative treatment left tibial plateau fracture Irrigation and debridement of left tibia shaft fracture, removal external fixation, soleus muscle rotational flap, intramedullary nail fixation left tibia , application of wound VAC dressing 4.11/13 Irrigation and debridement of left tibia, application wound VAC dressing 5. 11/28 Irrigation and debridement of left open tibia fracture with application of wound VAC dressing 6. 12/01 wound vac change at the bedside 7. 12/05 wound vac change at the bedside 8. 12/08 wound vac change at the bedside Medications and IVs Current Medications Medications (Trade) Dose Ordered Sig/Milagro Route Start Time Stop Time Status Last Admin (NS Flush) 2 ml UNSCH PRN IV FLUSH 11/07/16 14:30 12/05/16 12:05 (NS Flush) 2 ml BID IV FLUSH 11/07/16 21:00 12/07/16 20:05 (Zofran Inj) 4 mg Q6H PRN IV 11/07/16 14:30 12/04/16 06:13 (Narcan Inj) 0.4 mg UNSCH PRN IV 11/07/16 14:30 (Tylenol) 650 mg Q4H PRN PO 11/08/16 08:15 (Tums Chew) 1,000 mg TID PRN CHEW 11/08/16 08:15 12/06/16 08:52 (Vasotec Inj) 1.25 mg Q6H PRN IV 11/08/16 08:15 (Catapres) 0.1 mg Q6H PRN PO 11/08/16 08:15 (Aspirin Chew) 81 mg DAILY CHEW 11/08/16 12:45 12/08/16 08:02 (Prinivil) 25 mg DAILY PO 11/08/16 12:45 Future Hold 11/18/16 09:59 (Nitrostat Sl) 0.4 mg Q6HR PRN SL 11/08/16 12:45 (Protonix) 40 mg DAILY PO 11/08/16 12:45 12/08/16 08:02 (Pravachol) 80 mg HS PO 11/08/16 21:00 12/07/16 20:03 (Pill Splitter) 1 ea UNSCH PRN OTHER 11/08/16 12:45 (Elke-Colace) 1 tab BID PO 11/08/16 12:45 12/07/16 09:15 (Vitamin B1) 100 mg DAILY PO 11/09/16 09:00 12/08/16 08:01 (Romazicon Inj) 0.2 mg Q1M PRN IV PUSH 11/08/16 13:00 (Haldol Inj) 2 mg Q15M PRN IM 11/08/16 13:00 (Neosporin Oint) 1 applic DAILY TOPICAL 11/10/16 09:00 12/07/16 09:15 (Lactulose Liq) 30 ml DAILY PO 11/10/16 09:00 12/02/16 09:18 (Milk Of Magnesia Liq) 30 ml HS PO 11/10/16 21:00 12/06/16 20:21 (Oscal-D 250-125) 250 mg TID PO 11/10/16 13:00 12/08/16 08:02 (Duoneb Neb) 1 ampule Q4HR NEB PRN NEB 11/12/16 13:15 (Ambien) 5 mg HS PRN PO 11/14/16 11:00 (Desyrel) 100 mg HS PO 11/14/16 21:00 12/07/16 20:03 (Neurontin) 600 mg TID PO 11/16/16 13:00 12/08/16 08:02 (Ada 10-325 Mg) 1 tab Q4H PRN PO 11/20/16 00:45 12/08/16 06:20 (Dilaudid Pf Inj) 1 mg Q4H PRN IV PUSH 11/20/16 00:45 12/08/16 08:11 (Inderal) 40 mg Q12HR PO 11/22/16 21:00 12/08/16 08:01 (Compazine Inj) 10 mg Q8H PRN IV PUSH 11/25/16 16:15 11/25/16 18:00 (Milk Of Magnesia Liq) 30 ml Q12H PRN PO 11/28/16 11:30 11/29/16 12:43 (Senokot) 17.2 mg Q12H PRN PO 11/28/16 11:30 (Dulcolax Supp) 10 mg DAILY PRN RECTAL 11/28/16 11:30 12/06/16 17:06 (Ada 10-325 Mg) 1.5 tab Q4H PRN PO 11/28/16 15:00 12/06/16 08:54 (Mycostatin Cream) 1 applic Q6HR TOPICAL 11/28/16 14:00 12/08/16 05:03 (ZyrTEC) 10 mg HS PO 12/01/16 21:00 12/08/16 20:59 12/07/16 20:03 (Flonase Jerzy Spr) 2 spray DAILY EACH NARE 12/01/16 11:00 12/15/16 10:59 12/07/16 09:15 (Folate) 1 mg DAILY PO 12/03/16 09:00 12/08/16 08:00 (Oramorph Sr) 30 mg Q8HR PO 12/03/16 14:00 12/08/16 05:03 (Lovenox Inj) 40 mg DAILY SQ 12/05/16 09:00 12/08/16 08:00 (Mag-Al Plus Susp Liq) 30 ml Q6HR PRN PO 12/04/16 18:00 12/06/16 08:52 (Carafate Liq) 1 gm QID PO 12/05/16 09:00 12/08/16 08:00 (Lactinex) 1 tab BID PO 12/05/16 21:00 12/08/16 08:01 A/P Problem List: (1) Fracture of tibia, left, open ICD Code: S82.202B - Unspecified fracture of shaft of left tibia, initial encounter for open fracture type I or II Status: Acute (2) Fracture of tibia, right, open ICD Code: S82.201B - Unspecified fracture of shaft of right tibia, initial encounter for open fracture type I or II Status: Acute (3) Hypotension ICD Code: I95.9 - Hypotension, unspecified Status: Acute Assessment and Plan 61-year-old male admitted secondary to bilateral leg trauma after car fell on his legs while he was working on. Open fractures were present bilaterally. Diarrhea Improved Patient does not appear septic. He is afebrile. Denies any N/V or abdominal pain. Good appetite. D/C lactulose Elke Colace on hold continue Lactobacillus N/V Dyspepsia Resolved Continue PPI and Carafate Bilateral open tibia-fibula fractures Left tibial plateau fracture - Open fractures have been surgically repaired, right side has external fixation - Continue wound VAC left leg as per orthopedic surgery recommendations. s/ p wound vac change at bedside today. Ortho plans to take patient to the OR tomorrow for possible skin flap vs wound vac change. NPO after MN. - left tibial plateau treated nonoperatively - Pin care BID to right leg - NWB BLEs - Lortab dose when necessary, Oramorph 30mg every 8 hours and IV Dilaudid 1mg q4H prn breakthrough pain. - discussed with MADIHA Chaudhari - patient cleared to resume Lovenox sq Acute blood loss anemia - Related to trauma vs post op blood loss - Status post transfusion of 2 units of packed red blood cells in 11/12/16. - on iron supplementation daily. Iron studies reviewed. - hemoglobin stable - monitor CBC as indicated Coronary artery disease with h/o previous CABG - Appears stable. Patient is asymptomatic. - Continue propranolol and statin - ASA 81mg daily - Clonidine PRN Hypertension - RAUL inhibitor held due to hypotension. - Narcotics seem to have a depressive affect on this patient, however blood pressure has much improved after the patient was taken off IV morphine - BP 107/58. HR 57. Decrease dose of propranolol 20mg BID. Monitor. Diabetes mellitus type 2 - blood sugars well controlled - d/c ISS and accucheks Hyponatremia - mild - encourage fluids - monitor. repeat labs in few days.CBC Alcohol abuse Transaminitis, resolved - AST and ALT now within normal range. - Continue with daily thiamine and folic acid - Alcohol cessation recommended Tobacco abuse - Cessation recommended. Chronic essential tremor - Continue Propranolol at lower dose due to bradycardia with holding parameters, HR <55 Leukocytosis - Likely reactive. ID consulted, appreciate recommendations. - Blood cultures show no growth in 5 days - Completed Cefazolin IV, stop date 12/01/16 - resolved GI prophylaxis: PPI DVT prophylaxis: Lovenox sq Discussed with patient, nursing staff and Dr. Pickard Discharge Planning Pending Ortho clearance Problem Qualifiers (1) Fracture of tibia, left, open: (2) Fracture of tibia, right, open: (3) Hypotension: Mary De Luna Dec 08, 2016 10:03
[2016-12-08 11:39] VITALS: BP 103/53; PULSE 63; RESP 17; TEMP 98.7; O2SAT 97
[2016-12-08 15:44] VITALS: BP 100/58; PULSE 72; RESP 17; TEMP 98.6; O2SAT 98
[2016-12-08 19:00] VITALS: BP 115/65; PULSE 62; RESP 17; TEMP 97.9; O2SAT 100
[2016-12-08] MEDS: PRAVASTATIN SOD 80 MG TAB PO SCH (20:08)
[2016-12-08] MEDS: MAGNESIUM HYDROXIDE SUSP 30 ML CUP PO SCH (20:10)
[2016-12-08] MEDS: PROPRANOLOL HCL 20 MG TAB PO SCH (20:10)
[2016-12-08] MEDS: traZODone HCL 100 MG TAB PO SCH (20:12)
[2016-12-09] VITALS: BP 116/60; PULSE 59; RESP 17; TEMP 97; O2SAT 99
[2016-12-09] MEDS: ACETAMINOPHEN/HYDROcodone 325 MG/10 MG TAB PO PRN ×5 (00:25→22:29)
[2016-12-09] MEDS: NYSTATIN 100,000 UNIT/GM CREAM 15 GM TOPICAL SCH ×4 (00:30→18:00)
[2016-12-09] MEDS ORDERED: POVIDONE IODINE 5% (ANTISEPSIS KIT) 4 APPLICATIONS EACH NARE PRN (01:30)
[2016-12-09] MEDS ORDERED: CHLORHEXIDINE GLUCONATE 2 % 1 PACK (2 CLOTHS) TOPICAL PRN (01:30)
[2016-12-09] MEDS ORDERED: SODIUM CHLORID 0.9% 500 ML IV PRN (01:30)
[2016-12-09] MEDS ORDERED: INSULIN HUMAN REGULAR 1,000 UNITS/10 ML VIAL SQ PRN (01:30)
[2016-12-09] MEDS ORDERED: LACTATED RINGER'S 1000 ML IV PRN (01:30)
[2016-12-09 04:00] VITALS: BP 121/64; PULSE 61; RESP 17; TEMP 96.6; O2SAT 99
[2016-12-09] MEDS: MORPHINE SULFATE 30 MG CONTROLLED RELEASE TAB PO SCH ×3 (05:04→20:34)
--- NOTE | 2016-12-09 06:42 | PD.ORT.PN ---
Subjective Subjective Remarks POD 29 s/p left tibia IMN and right tibia ORIF s/p left tibia soleus flap s/p left tibial plateau fracture doing well. pain controlled. ambulating with wheelchair Objective Vitals Vital Signs Date Time Temp Pulse Resp B/P (MAP) Pulse Ox O2 Delivery O2 Flow Rate FiO2 12/09/16 04:00 96.6 61 17 121/64 (83) 99 12/09/16 00:00 97.0 59 17 116/60 (78) 99 12/08/16 19:00 97.9 62 17 115/65 (82) 100 12/08/16 15:44 98.6 72 17 100/58 (72) 98 12/08/16 11:39 98.7 63 17 103/53 (70) 97 12/08/16 07:52 98.4 57 17 107/58 (74) 100 I/O 12/08/16 12/08/16 12/08/16 12/09/16 12/09/16 12/09/16 07:00 15:00 23:00 07:00 15:00 23:00 Intake Total 720 ml 700 ml 480 ml 480 ml Output Total 750 ml 500 ml 600 ml Balance -30 ml 200 ml 480 ml -120 ml Intake Oral 720 ml 700 ml 480 ml 480 ml Output Urine Total 750 ml 500 ml 600 ml Drainage Total 0 ml # Voids 4 # Bowel Movements 0 0 0 Result Diagram: 12/08/16 0458 12/08/16 0458 Imaging Last 24 hours Impressions Pelvis X-Ray 11/07/16 5395 Signed Impressions: Service Date/Time: Monday, November 07, 2016 13:34 - CONCLUSION: No acute disease. Behzad Finch Jr., MD Chest X-Ray 11/07/16 8342 Signed Impressions: Service Date/Time: Monday, November 07, 2016 13:34 - CONCLUSION: No acute disease. Jac Gonzales MD Objective Remarks sitting up in bed RLE: Dressings clean and dry. intact. with full sensation and motor function. + exfix. pin sites. clean LLE: Wound VAC intact. Good seal. no sensation over medial foot. inability to dorsiflex or flex toes/foot. vac removed and wound visualized. clean. + granulation tissue. Assessment & Plan Assessment and Plan 1) Right Open Tibia Fracture s/p exfix revision with ORIF - POD #29 2) Left Open Tibia Fracture s/p Soleus muscle flap with IMN and removal of exfix - POD #29 3) left tibia plateau fracture treated nonoperatively -NWB BLE -pin care BID right leg -vac changed at bedside today -maintain vac left leg -vac settinmmHg, intermittent, 3:1 -OR today for I&D and vac change Jef Steve Dec 09, 2016 06:41
[2016-12-09 07:42] VITALS: BP 102/58; PULSE 66; RESP 18; TEMP 97.1; O2SAT 98
[2016-12-09] MEDS: HYDROmorphone HCL PF 1 MG/ML VIAL IV PUSH PRN ×2 (08:16→12:55)
[2016-12-09] MEDS: CALCIUM/VITAMIN D 250 MG/125 U TAB PO SCH ×3 (08:16→18:04)
[2016-12-09] MEDS: GABAPENTIN 300 MG CAP PO SCH ×3 (08:17→18:04)
[2016-12-09] MEDS: PANTOPRAZOLE SOD 40 MG DELAYED RELEASE TAB PO SCH (08:17)
[2016-12-09] MEDS: THIAMINE HCL 100 MG TAB PO SCH (08:17)
[2016-12-09] MEDS: LACTOBACILLUS ACIDOPHILUS TAB PO SCH ×2 (08:17→20:34)
[2016-12-09] MEDS: PROPRANOLOL HCL 20 MG TAB PO SCH ×2 (08:17→20:34)
[2016-12-09] MEDS: DOCUSATE SODIUM 50 MG/SENNA 8.6 MG TAB PO SCH ×2 (08:17→20:54)
[2016-12-09] MEDS: FOLIC ACID 1 MG TAB PO SCH (08:18)
[2016-12-09] MEDS: FLUTICASONE PROPIONATE 50 MCG/ACT 16 GM NASAL SPRAY EACH NARE SCH (08:19)
[2016-12-09] MEDS: SUCRALFATE 1 GM/10 ML CUP PO SCH ×4 (08:19→20:33)
[2016-12-09] MEDS: SODIUM CHLORIDE 0.9% FLUSH 10 ML FLUSH IV FLUSH SCH ×2 (08:19→20:54)
[2016-12-09] MEDS: NEOMYCIN/POLYMYXIN/BACITRACIN OINT 15 GM TUBE TOPICAL SCH (08:20)
[2016-12-09] MEDS: ENOXAPARIN SODIUM 40 MG/0.4 ML SYRINGE SQ SCH (08:20)
[2016-12-09] MEDS: ASPIRIN 81 MG CHEW TAB CHEW SCH (09:00)
[2016-12-09 11:25] VITALS: BP 96/51; PULSE 54; RESP 18; TEMP 98.4; O2SAT 97
[2016-12-09] MEDS ORDERED: ePHEDrine/NS 25 MG/5 ML SYR IV ONE (12:00)
[2016-12-09] MEDS ORDERED: ONDANSETRON HCL 4 MG/2 ML VIAL IV PUSH ONE (12:00)
[2016-12-09] MEDS ORDERED: PROPOFOL 200 MG/20 ML AMP IV ONE (12:00)
--- NOTE | 2016-12-09 13:30 | HHI.PR ---
Subjective Remarks Follow-up visit bilateral leg trauma, external fixator in place. Patient seen and examined today. He endorses poor sleep last night. Pt stated he was "hungry" and wanting to eat; he is awaiting surgery this am. He denied fever, chills, nausea, vomiting, abdominal pain, cough, shortness of breath, Per RN ( Annita) pt without acute issues overnight or since start of shift. Objective Vitals Vital Signs Date Time Temp Pulse Resp B/P (MAP) Pulse Ox O2 Delivery O2 Flow Rate FiO2 12/09/16 11:25 98.4 54 18 96/51 (66) 97 12/09/16 07:42 97.1 66 18 102/58 (73) 98 12/09/16 04:00 96.6 61 17 121/64 (83) 99 12/09/16 00:00 97.0 59 17 116/60 (78) 99 12/08/16 19:00 97.9 62 17 115/65 (82) 100 12/08/16 15:44 98.6 72 17 100/58 (72) 98 I/O 12/08/16 12/08/16 12/08/16 12/09/16 12/09/16 12/09/16 07:00 15:00 23:00 07:00 15:00 23:00 Intake Total 720 ml 700 ml 480 ml 480 ml Output Total 750 ml 500 ml 600 ml Balance -30 ml 200 ml 480 ml -120 ml Intake Oral 720 ml 700 ml 480 ml 480 ml Output Urine Total 750 ml 500 ml 600 ml Drainage Total 0 ml # Voids 4 # Bowel Movements 0 0 0 Result Diagram: 12/08/16 0458 12/08/16 0458 Imaging Last Impressions Gall Bladder Ultrasound 12/05/16 0000 Signed Impressions: Service Date/Time: Monday, December 05, 2016 08:38 - CONCLUSION: Unremarkable exam. Gallbladder is within normal limits with no evidence of cholelithiasis. Ronald Rao MD Abdomen X-Ray 12/04/16 0000 Signed Impressions: Service Date/Time: November 10:42 - CONCLUSION: Unremarkable bowel gas pattern. Ronald Rao MD Knee X-Ray 11/25/16 0000 Signed Impressions: Service Date/Time: Friday, November 25, 2016 06:44 - CONCLUSION: Post surgical changes are identified. Mumtaz Cornelius MD Tibia/Fibula X-Ray 11/24/16 0000 Signed Impressions: Service Date/Time: Thursday, November 24, 2016 10:06 - CONCLUSION: 1. Mildly displaced lateral tibial plateau fracture which is not clearly evident on the previous studies. 2. Otherwise stable left tibia status post ORIF. 3. Wound VAC remains in place. Dex Wild MD Ankle X-Ray 11/24/16 0000 Signed Impressions: Service Date/Time: Thursday, November 24, 2016 10:08 - CONCLUSION: Stable satisfactory appearance of the right ankle as described. Dex Wild MD Chest X-Ray 11/20/16 0000 Signed Impressions: Service Date/Time: November 17:08 - CONCLUSION: 1. No acute abnormality or significant interval change. Sukhi Stevens MD Pelvis X-Ray 11/07/16 1355 Signed Impressions: Service Date/Time: Monday, November 07, 2016 13:34 - CONCLUSION: No acute disease. Behzad Finch Jr., MD Objective Remarks GENERAL: Pt laying abed, awake and alert. SKIN: Warm and dry. HEAD: Normocephalic. EYES: No scleral icterus. No injection or drainage. NECK: Supple, trachea midline. No lymphadenopathy. CARDIOVASCULAR: Regular rate and rhythm without murmurs, gallops, or rubs. RESPIRATORY: Breath sounds equal bilaterally. No accessory muscle use. GASTROINTESTINAL: Abdomen soft, non-tender, nondistended. MUSCULOSKELETAL: No cyanosis, or edema. Right leg ORIF. PSYCHIATRIC: Alert and oriented x 3. No overt signs of depression/anxiety. Procedures 1.s/p I&D with ex fix application bilateral tibias s/p wound vac application left tibia 2.With the assistance of RN, under sterile technique the avulsed skin of the right middle finger was clipped. No bleeding noted. Patient gave consent 3.Open reduction internal fixation of right distal tibia and fibula fractures Nonoperative treatment left tibial plateau fracture Irrigation and debridement of left tibia shaft fracture, removal external fixation, soleus muscle rotational flap, intramedullary nail fixation left tibia , application of wound VAC dressing 4.11/13 Irrigation and debridement of left tibia, application wound VAC dressing 5. 11/28 Irrigation and debridement of left open tibia fracture with application of wound VAC dressing 6. 12/01 wound vac change at the bedside 7. 12/05 wound vac change at the bedside 8. 12/08 wound vac change at the bedside Medications and IVs Current Medications Medications (Trade) Dose Ordered Sig/Milagro Route Start Time Stop Time Status Last Admin (NS Flush) 2 ml UNSCH PRN IV FLUSH 11/07/16 14:30 12/05/16 12:05 (NS Flush) 2 ml BID IV FLUSH 11/07/16 21:00 12/09/16 08:19 (Zofran Inj) 4 mg Q6H PRN IV 11/07/16 14:30 12/04/16 06:13 (Narcan Inj) 0.4 mg UNSCH PRN IV 11/07/16 14:30 (Tylenol) 650 mg Q4H PRN PO 11/08/16 08:15 (Tums Chew) 1,000 mg TID PRN CHEW 11/08/16 08:15 12/06/16 08:52 (Vasotec Inj) 1.25 mg Q6H PRN IV 11/08/16 08:15 (Catapres) 0.1 mg Q6H PRN PO 11/08/16 08:15 (Aspirin Chew) 81 mg DAILY CHEW 11/08/16 12:45 12/09/16 09:00 (Prinivil) 25 mg DAILY PO 11/08/16 12:45 Future Hold 11/18/16 09:59 (Nitrostat Sl) 0.4 mg Q6HR PRN SL 11/08/16 12:45 (Protonix) 40 mg DAILY PO 11/08/16 12:45 12/09/16 08:17 (Pravachol) 80 mg HS PO 11/08/16 21:00 12/08/16 20:08 (Pill Splitter) 1 ea UNSCH PRN OTHER 11/08/16 12:45 (Elke-Colace) 1 tab BID PO 11/08/16 12:45 12/09/16 08:17 (Vitamin B1) 100 mg DAILY PO 11/09/16 09:00 12/09/16 08:17 (Romazicon Inj) 0.2 mg Q1M PRN IV PUSH 11/08/16 13:00 (Haldol Inj) 2 mg Q15M PRN IM 11/08/16 13:00 (Neosporin Oint) 1 applic DAILY TOPICAL 11/10/16 09:00 12/09/16 08:20 (Milk Of Magnesia Liq) 30 ml HS PO 11/10/16 21:00 12/06/16 20:21 (Oscal-D 250-125) 250 mg TID PO 11/10/16 13:00 12/09/16 12:55 (Duoneb Neb) 1 ampule Q4HR NEB PRN NEB 11/12/16 13:15 (Ambien) 5 mg HS PRN PO 11/14/16 11:00 (Desyrel) 100 mg HS PO 11/14/16 21:00 12/08/16 20:12 (Neurontin) 600 mg TID PO 11/16/16 13:00 12/09/16 12:54 ([place]hattan 10-325 Mg) 1 tab Q4H PRN PO 11/20/16 00:45 12/08/16 18:40 (Dilaudid Pf Inj) 1 mg Q4H PRN IV PUSH 11/20/16 00:45 12/09/16 12:55 (Compazine Inj) 10 mg Q8H PRN IV PUSH 11/25/16 16:15 11/25/16 18:00 (Milk Of Magnesia Liq) 30 ml Q12H PRN PO 11/28/16 11:30 11/29/16 12:43 (Senokot) 17.2 mg Q12H PRN PO 11/28/16 11:30 (Dulcolax Supp) 10 mg DAILY PRN RECTAL 11/28/16 11:30 12/06/16 17:06 ([place]hattan 10-325 Mg) 1.5 tab Q4H PRN PO 11/28/16 15:00 12/09/16 10:27 (Mycostatin Cream) 1 applic Q6HR TOPICAL 11/28/16 14:00 12/09/16 08:20 (Flonase Jerzy Spr) 2 spray DAILY EACH NARE 12/01/16 11:00 12/15/16 10:59 12/09/16 08:19 (Folate) 1 mg DAILY PO 12/03/16 09:00 12/09/16 08:18 (Oramorph Sr) 30 mg Q8HR PO 12/03/16 14:00 12/09/16 12:55 (Lovenox Inj) 40 mg DAILY SQ 12/05/16 09:00 12/08/16 08:00 (Mag-Al Plus Susp Liq) 30 ml Q6HR PRN PO 12/04/16 18:00 12/06/16 08:52 (Carafate Liq) 1 gm QID PO 12/05/16 09:00 12/08/16 20:09 (Lactinex) 1 tab BID PO 12/05/16 21:00 12/09/16 08:17 (Miralax) 17 gm DAILY PRN PO 12/08/16 10:00 (Inderal) 20 mg Q12HR PO 12/08/16 21:00 12/09/16 08:17 Lactated Ringer's 1,000 ml @ 30 mls/hr Q24H PRN IV 12/09/16 01:30 12/12/16 01:29 Sodium Chloride 500 ml @ 30 mls/hr [id number] PRN IV 12/09/16 01:30 12/12/16 01:29 (Betadine 5% Antisepsis Kit) 1 applic [employer] PRN EACH NARE 12/09/16 01:30 12/12/16 01:29 (Chlorhexidine 2% Cloth) 3 pack [employer] PRN TOPICAL 12/09/16 01:30 12/12/16 01:29 (NovoLIN R INJ) See Protocol Table ... [employer] PRN SQ 12/09/16 01:30 12/12/16 01:29 A/P Problem List: (1) Fracture of tibia, left, open ICD Code: S82.202B - Unspecified fracture of shaft of left tibia, initial encounter for open fracture type I or II Status: Acute (2) Fracture of tibia, right, open ICD Code: S82.201B - Unspecified fracture of shaft of right tibia, initial encounter for open fracture type I or II Status: Acute (3) Hypotension ICD Code: I95.9 - Hypotension, unspecified Status: Acute Assessment and Plan 61-year-old male admitted secondary to bilateral leg trauma after car fell on his legs while he was working on. Open fractures were present bilaterally. Hypotensive episodes continue. Monitor blood pressure. Decrease of beta gil noted 12/08/16. Pt to OR on 12/09/16 for skin I&D and wound vac change Diarrhea -Improved -Patient does not appear septic. He is afebrile. Denies any N/V or abdominal pain. Good appetite. -D/C lactulose -Elke Colace on hold -continue Lactobacillus N/V Dyspepsia -Resolved -Continue PPI and Carafate Bilateral open tibia-fibula fractures Left tibial plateau fracture - Open fractures have been surgically repaired, right side has external fixation - Continue wound VAC left leg as per orthopedic surgery recommendations. s/ p wound vac change at bedside today. Ortho plans to take patient to the OR tomorrow for possible skin flap vs wound vac change. NPO after MN. - left tibial plateau treated nonoperatively - Pin care BID to right leg - NWB BLEs - Lortab dose when necessary, Oramorph 30mg every 8 hours and IV Dilaudid 1mg q4H prn breakthrough pain. - patient cleared by Ortho to resume Lovenox sq Acute blood loss anemia - Related to trauma vs post op blood loss - Status post transfusion of 2 units of packed red blood cells in 11/12/16. - on iron supplementation daily. Iron studies reviewed. - hemoglobin stable - monitor CBC as indicated Coronary artery disease with h/o previous CABG - Appears stable. Patient is asymptomatic. - Continue propranolol and statin - ASA 81mg daily - Clonidine PRN Hypertension - MARGIE inhibitor held due to hypotension. - Narcotics seem to have a depressive affect on this patient, however blood pressure has much improved after the patient was taken off IV morphine - BP 107/58. HR 57. Decrease dose of propranolol 20mg BID. Monitor. Diabetes mellitus type 2 - blood sugars well controlled - d/c ISS and accucheks Hyponatremia - mild - encourage fluids - monitor. repeat labs in few days.CBC Alcohol abuse Transaminitis, resolved - AST and ALT now within normal range. - Continue with daily thiamine and folic acid - Alcohol cessation recommended Tobacco abuse - Cessation recommended. Chronic essential tremor - Continue Propranolol at lower dose due to bradycardia with holding parameters, HR <55 Leukocytosis - Likely reactive. ID consulted, appreciate recommendations. - Blood cultures show no growth in 5 days - Completed Cefazolin IV, stop date 12/01/16 - resolved GI prophylaxis: PPI DVT prophylaxis: Lovenox sq Discussed with patient, nursing staff and Dr. Pickard Problem Qualifiers (1) Fracture of tibia, left, open: (2) Fracture of tibia, right, open: (3) Hypotension: Aurelio Patterson Jr. MADIHA Dec 09, 2016 13:30
[2016-12-09] MEDS ORDERED: GENTAMICIN SULFATE 80 MG/2 ML VIAL ONE (14:07)
[2016-12-09] MEDS ORDERED: BUPIVACAINE/EPINEPHRINE 0.25% 50 ML VIAL ONE (14:07)
[2016-12-09] MEDS ORDERED: MINERAL OIL 10 ML VIAL ONE (14:07)
[2016-12-09] MEDS ORDERED: ceFAZolin 2 GM PREMIX 50 ML ONE (15:06)
[2016-12-09] MEDS ORDERED: VANCOMYCIN HCL 1000 MG VIAL ONE (15:06)
[2016-12-09] MEDS: LACTATED RINGER'S 1000 ML INJ 1,000 ML IV SCH (15:57)
--- NOTE | 2016-12-09 16:02 | PD.OP ---
cc: Salbador Gillis MD Operative Report Date of Surgery: Dec 09, 2016 Preoperative Diagnosis: Open left tibia fracture with large open wound Postoperative Diagnosis: Procedure: Irrigation debridement of left tibia, application wound VAC dressing, application of AlloMax allograft dermal matrix Surgeon: Salbador Gillis Game Programmer(s): Jef Steve PA-C The surgical procedure was assisted by my physician ophthalmic surgical assistant. My P.A. presence was necessary throughout this case for the manipulation and positioning of the surgical extremity. My P.A. was assisting me throughout the duration of this procedure. The skill set of a physician ophthalmic surgical assistant was medically necessary to complete this procedure. During the surgical case the surgical appliance fitter was working at the back table and the physician ophthalmic surgical assistant was directly assisting me. Operation and Findings: Mr. Donohue is well-known to me from multiple previous lower extremity surgeries for bilateral open tibia fractures. Informed consent was obtained and operative site was marked. He is brought to operating room. He was given IV sedation and general anesthesia. He received IV antibiotics. Timeout procedure was performed. Left leg was prepped with alcohol followed by Hibiclens and draped usual sterile fashion. Procedure began with debridement of the wound. Skin subcutaneous tissue and fascia were sharply debrided. A small area of the soleus and gastrocnemius muscles were also debrided. A portion of the anterior tibialis was also debrided. Curettes were used to debride around the tibia. Overall the wound appeared to be healthy with good granulation tissue forming. The wound was now thoroughly irrigated with sterile saline. Patient has an area of exposed anterior tibialis tendon. There is essentially no granulation tissue forming over this tendon. At this point decision was made to place allograft dermal matrix. A 6 cm x 15 cm Allomax graft was opened. The graft was soaked in saline appropriately for 5 minutes. The graft was now perforated throughout the length of the graft. The graft was now placed over the open wound and exposed tendon. The graft was stapled in place. The graft was now covered with Adaptic. Next attention was turned to wound VAC dressing. VAC dressing was cut to fit the wound. Xeroform was placed around the skin edges. VAC dressing was now sealed appropriately using Ioban. VAC dressing was set at intermittent 125 mmHg 3 on and 1 off. Patient was awakened and transferred to recovery room in stable condition. Salbador Gillis MD Dec 09, 2016 16:02
[2016-12-09] MEDS ORDERED: DO NOT ADM ANY ANTICOAGULANT DRUGS PRN (16:20)
[2016-12-09] MEDS ORDERED: *morphine SULFATE 8 MG/ML PERIprocedure ONLY ONE ×2 (16:32→17:01)
[2016-12-09] MEDS ORDERED: fentaNYL CITRATE 250 MCG/5 ML AMP ONE (16:33)
[2016-12-09 19:27] VITALS: BP 116/63; PULSE 78; RESP 18; TEMP 97.9; O2SAT 99
[2016-12-09] MEDS: ceFAZolin 2 GM PREMIX 50 ML IV SCH (20:33)
[2016-12-09] MEDS: traZODone HCL 100 MG TAB PO SCH (20:34)
[2016-12-09] MEDS: PRAVASTATIN SOD 80 MG TAB PO SCH (20:34)
[2016-12-09] MEDS: GENTAMICIN 80 MG PREMIX 100 ML IV SCH (20:53)
[2016-12-09] MEDS: MAGNESIUM HYDROXIDE SUSP 30 ML CUP PO SCH (20:54)
[2016-12-09 23:37] VITALS: BP 109/58; PULSE 66; RESP 18; TEMP 98.4; O2SAT 97
[2016-12-10] MEDS: HYDROmorphone HCL PF 1 MG/ML VIAL IV PUSH PRN ×3 (00:43→18:05)
[2016-12-10] MEDS: LACTATED RINGER'S 1000 ML INJ 1,000 ML IV SCH ×3 (01:57→21:36)
[2016-12-10] MEDS: ACETAMINOPHEN/HYDROcodone 325 MG/10 MG TAB PO PRN ×5 (02:35→20:31)
[2016-12-10] MEDS: ceFAZolin 2 GM PREMIX 50 ML IV SCH ×3 (04:14→21:35)
[2016-12-10 04:48] VITALS: BP 95/56; PULSE 74; RESP 17; TEMP 98.6; O2SAT 96
[2016-12-10] MEDS: GENTAMICIN 80 MG PREMIX 100 ML IV SCH ×3 (04:59→21:35)
[2016-12-10] MEDS: MORPHINE SULFATE 30 MG CONTROLLED RELEASE TAB PO SCH ×3 (05:00→22:37)
[2016-12-10] MEDS: NYSTATIN 100,000 UNIT/GM CREAM 15 GM TOPICAL SCH ×4 (05:00→18:00)
--- NOTE | 2016-12-10 07:13 | PD.ORT.PN ---
Subjective Subjective Remarks POD 30 s/p left tibia IMN and right tibia ORIF s/p left tibia soleus flap s/p left tibial plateau fracture doing well. pain controlled. ambulating with wheelchair Objective Vitals Vital Signs Date Time Temp Pulse Resp B/P (MAP) Pulse Ox O2 Delivery O2 Flow Rate FiO2 12/10/16 05:44 21 12/10/16 04:48 98.6 74 17 95/56 (69) 96 12/10/16 01:13 18 12/09/16 23:37 98.4 66 18 109/58 (75) 97 12/09/16 19:27 97.9 78 18 116/63 (80) 99 12/09/16 19:05 18 12/09/16 17:00 97.5 63 12 108/56 (73) 95 Room Air 12/09/16 16:45 63 12 128/61 (83) 95 Room Air 12/09/16 16:30 67 12 141/77 (98) 95 Room Air 12/09/16 16:21 97.5 71 12 134/69 (90) 98 Room Air 12/09/16 11:25 98.4 54 18 96/51 (66) 97 12/09/16 07:42 97.1 66 18 102/58 (73) 98 I/O 12/09/16 12/09/16 12/09/16 12/10/16 12/10/16 12/10/16 07:00 15:00 23:00 07:00 15:00 23:00 Intake Total 480 ml 0 ml 880 ml 720 ml Output Total 600 ml 200 ml 5 ml 450 ml Balance -120 ml -200 ml 875 ml 270 ml Intake Oral 480 ml 0 ml 480 ml 720 ml Other 400 ml Output Urine Total 600 ml 200 ml 450 ml Drainage Total 0 ml Estimated Blood Loss 5 ml # Voids 3 4 4 # Bowel Movements 0 2 1 Result Diagram: 12/08/16 0458 12/08/16 045 Imaging Last 24 hours Impressions Pelvis X-Ray 11/07/16 846 Signed Impressions: Service Date/Time: Monday, November 07, 2016 13:34 - CONCLUSION: No acute disease. Behzad Finch Jr., MD Chest X-Ray 11/07/16 0459 Signed Impressions: Service Date/Time: Monday, November 07, 2016 13:34 - CONCLUSION: No acute disease. Jac Gonzales MD Objective Remarks sitting up in bed RLE: Dressings clean and dry. intact. with full sensation and motor function. + exfix. pin sites. clean LLE: Wound VAC intact. Good seal. no sensation over medial foot. inability to dorsiflex or flex toes/foot. vac removed and wound visualized. clean. + granulation tissue. Assessment & Plan Assessment and Plan 1) Right Open Tibia Fracture s/p exfix revision with ORIF - POD #30 2) Left Open Tibia Fracture s/p Soleus muscle flap with IMN and removal of exfix - POD #30 3) left tibia plateau fracture treated nonoperatively 4) s/p vac change with collagen grafting - POD 1 -NWB BLE -pin care BID right leg -vac changed at bedside today -maintain vac left leg -vac settinmmHg, intermittent, 3:1 - will plan for vac change at bedside thursday -if arrangements can be made from hospital standpoint to allow patient to leave for a few hours to attend to personal matters and come back, OK per ortho. Jef Steve Dec 10, 2016 07:13
[2016-12-10 08:00] VITALS: BP 105/64; PULSE 60; RESP 18; TEMP 96.9; O2SAT 97
[2016-12-10 08:14] LABS: AUTOMATED NEUTROPHIL # 6.1 TH/MM3 (1.8-7.7); BASOPHIL % 0.5 % (0.0-2.0); EOSINOPHIL # 0.2 TH/MM3 (0-0.4); EOSINOPHIL % 2.6 % (0.0-4.0); HEMO FLAGS DIFF FINAL; LYMPH % 20.2 % (9.0-44.0); LYMPHOCYTE # 1.9 TH/MM3 (1.0-4.8); MEAN CELL VOLUME 94.6 FL (80.0-100.0); MEAN CORPUSCULAR HEMOGLOBIN 31.3 PG (27.0-34.0); MONO % 12.9 % (0.0-8.0); NEUT % 63.8 % (16.0-70.0); PLATELET COUNT 211 TH/MM3 (150-450); RED BLOOD COUNT 3.49 MIL/MM3 (4.50-5.90); RED CELL DISTRIBUTION WIDTH 13.7 % (11.6-17.2); WHITE BLOOD COUNT 9.5 TH/MM3 (4.0-11.0)
[2016-12-10 08:39] LABS: BICARBONATE 27.4 MEQ/L (21.0-32.0); POTASSIUM 3.9 MEQ/L (3.5-5.1)
[2016-12-10] MEDS: PANTOPRAZOLE SOD 40 MG DELAYED RELEASE TAB PO SCH (08:41)
[2016-12-10] MEDS: FOLIC ACID 1 MG TAB PO SCH (08:41)
[2016-12-10] MEDS: PROPRANOLOL HCL 10 MG TAB PO SCH ×2 (08:41→21:36)
[2016-12-10] MEDS: DOCUSATE SODIUM 50 MG/SENNA 8.6 MG TAB PO SCH ×2 (08:41→20:31)
[2016-12-10] MEDS: LACTOBACILLUS ACIDOPHILUS TAB PO SCH ×2 (08:41→21:36)
[2016-12-10] MEDS: THIAMINE HCL 100 MG TAB PO SCH (08:41)
[2016-12-10] MEDS: GABAPENTIN 300 MG CAP PO SCH ×3 (08:42→18:04)
[2016-12-10] MEDS: ASPIRIN 81 MG CHEW TAB CHEW SCH (08:42)
[2016-12-10] MEDS: SODIUM CHLORIDE 0.9% FLUSH 10 ML FLUSH IV FLUSH SCH ×2 (08:42→21:36)
[2016-12-10] MEDS: CALCIUM/VITAMIN D 250 MG/125 U TAB PO SCH ×3 (08:42→18:05)
[2016-12-10] MEDS: FLUTICASONE PROPIONATE 50 MCG/ACT 16 GM NASAL SPRAY EACH NARE SCH (08:42)
[2016-12-10] MEDS: SUCRALFATE 1 GM/10 ML CUP PO SCH ×4 (08:43→20:31)
[2016-12-10] MEDS: ENOXAPARIN SODIUM 40 MG/0.4 ML SYRINGE SQ SCH (08:44)
[2016-12-10] MEDS: NEOMYCIN/POLYMYXIN/BACITRACIN OINT 15 GM TUBE TOPICAL SCH (08:45)
[2016-12-10 10:28] VITALS: O2SAT 98
--- NOTE | 2016-12-10 11:14 | HHI.PR ---
Subjective Remarks Follow-up visit bilateral leg trauma, external fixator in place. Pt seen and examined. Pt reported pain being controlled. He spoke of yesterday's debridement as "going well." Discussed hypotensive episodes, pt stated he takes propranolol "only for my shake" (history of tremor). Pt stated he has been on propranolol "since the 1989". He denied any new issues. Pt denied fever, cough, shortness of breath, NVD, bloody urine or stool. Per RN (Annita) no acute issues over night or since start of shift. Objective Vitals Vital Signs Date Time Temp Pulse Resp B/P (MAP) Pulse Ox O2 Delivery O2 Flow Rate FiO2 12/10/16 10:28 98 12/10/16 08:00 96.9 60 18 105/64 (78) 97 12/10/16 05:44 21 12/10/16 04:48 98.6 74 17 95/56 (69) 96 12/10/16 01:13 18 12/09/16 23:37 98.4 66 18 109/58 (75) 97 12/09/16 19:27 97.9 78 18 116/63 (80) 99 12/09/16 19:05 18 12/09/16 17:00 97.5 63 12 108/56 (73) 95 Room Air 12/09/16 16:45 63 12 128/61 (83) 95 Room Air 12/09/16 16:30 67 12 141/77 (98) 95 Room Air 12/09/16 16:21 97.5 71 12 134/69 (90) 98 Room Air 12/09/16 11:25 98.4 54 18 96/51 (66) 97 I/O 12/09/16 12/09/16 12/09/16 12/10/16 12/10/16 12/10/16 07:00 15:00 23:00 07:00 15:00 23:00 Intake Total 480 ml 0 ml 1030 ml 870 ml Output Total 600 ml 200 ml 5 ml 450 ml Balance -120 ml -200 ml 1025 ml 420 ml Intake Oral 480 ml 0 ml 480 ml 720 ml IV Total 150 ml 150 ml Other 400 ml Output Urine Total 600 ml 200 ml 450 ml Drainage Total 0 ml Estimated Blood Loss 5 ml # Voids 3 4 4 # Bowel Movements 0 2 1 Result Diagram: 12/10/1645 12/10/16744 Objective Remarks GENERAL: Pt laying abed, awake and alert. SKIN: Warm and dry. HEAD: Normocephalic. EYES: No scleral icterus. No injection or drainage. NECK: Supple, trachea midline. No lymphadenopathy. CARDIOVASCULAR: Regular rate and rhythm without murmurs, gallops, or rubs. RESPIRATORY: Breath sounds equal bilaterally. No accessory muscle use. GASTROINTESTINAL: Abdomen soft, non-tender, nondistended. MUSCULOSKELETAL: No cyanosis, or edema. Right leg ORIF. PSYCHIATRIC: Alert and oriented x 3. No overt signs of depression/anxiety. Pleasant and cooperative. Procedures 1.s/p I&D with ex fix application bilateral tibias s/p wound vac application left tibia 2.With the assistance of RN, under sterile technique the avulsed skin of the right middle finger was clipped. No bleeding noted. Patient gave consent 3.Open reduction internal fixation of right distal tibia and fibula fractures Nonoperative treatment left tibial plateau fracture Irrigation and debridement of left tibia shaft fracture, removal external fixation, soleus muscle rotational flap, intramedullary nail fixation left tibia , application of wound VAC dressing 4.11/13 Irrigation and debridement of left tibia, application wound VAC dressing 5. 11/28 Irrigation and debridement of left open tibia fracture with application of wound VAC dressing 6. 12/01 wound vac change at the bedside 7. 12/05 wound vac change at the bedside 8. 12/08 wound vac change at the bedside Medications and IVs Current Medications Medications (Trade) Dose Ordered Sig/Milagro Route Start Time Stop Time Status Last Admin (NS Flush) 2 ml UNSCH PRN IV FLUSH 11/07/16 14:30 12/05/16 12:05 (NS Flush) 2 ml BID IV FLUSH 11/07/16 21:00 12/10/16 08:42 (Zofran Inj) 4 mg Q6H PRN IV 11/07/16 14:30 12/04/16 06:13 (Narcan Inj) 0.4 mg UNSCH PRN IV 11/07/16 14:30 (Tylenol) 650 mg Q4H PRN PO 11/08/16 08:15 (Tums Chew) 1,000 mg TID PRN CHEW 11/08/16 08:15 12/06/16 08:52 (Vasotec Inj) 1.25 mg Q6H PRN IV 11/08/16 08:15 (Catapres) 0.1 mg Q6H PRN PO 11/08/16 08:15 (Aspirin Chew) 81 mg DAILY CHEW 11/08/16 12:45 12/10/16 08:42 (Prinivil) 25 mg DAILY PO 11/08/16 12:45 Future Hold 11/18/16 09:59 (Nitrostat Sl) 0.4 mg Q6HR PRN SL 11/08/16 12:45 (Protonix) 40 mg DAILY PO 11/08/16 12:45 12/10/16 08:41 (Pravachol) 80 mg HS PO 11/08/16 21:00 12/09/16 20:34 (Pill Splitter) 1 ea UNSCH PRN OTHER 11/08/16 12:45 (Elke-Colace) 1 tab BID PO 11/08/16 12:45 12/10/16 08:41 (Vitamin B1) 100 mg DAILY PO 11/09/16 09:00 12/10/16 08:41 (Romazicon Inj) 0.2 mg Q1M PRN IV PUSH 11/08/16 13:00 (Haldol Inj) 2 mg Q15M PRN IM 11/08/16 13:00 (Neosporin Oint) 1 applic DAILY TOPICAL 11/10/16 09:00 12/09/16 08:20 (Milk Of Magnesia Liq) 30 ml HS PO 11/10/16 21:00 12/06/16 20:21 (Oscal-D 250-125) 250 mg TID PO 11/10/16 13:00 12/10/16 08:42 (Duoneb Neb) 1 ampule Q4HR NEB PRN NEB 11/12/16 13:15 (Ambien) 5 mg HS PRN PO 11/14/16 11:00 (Desyrel) 100 mg HS PO 11/14/16 21:00 12/09/16 20:34 (Neurontin) 600 mg TID PO 11/16/16 13:00 12/10/16 08:42 (George 10-325 Mg) 1 tab Q4H PRN PO 11/20/16 00:45 12/08/16 18:40 (Dilaudid Pf Inj) 1 mg Q4H PRN IV PUSH 11/20/16 00:45 12/10/16 08:41 (Compazine Inj) 10 mg Q8H PRN IV PUSH 11/25/16 16:15 11/25/16 18:00 (Milk Of Magnesia Liq) 30 ml Q12H PRN PO 11/28/16 11:30 11/29/16 12:43 (Senokot) 17.2 mg Q12H PRN PO 11/28/16 11:30 (Dulcolax Supp) 10 mg DAILY PRN RECTAL 11/28/16 11:30 12/06/16 17:06 (George 10-325 Mg) 1.5 tab Q4H PRN PO 11/28/16 15:00 12/10/16 06:37 (Mycostatin Cream) 1 applic Q6HR TOPICAL 11/28/16 14:00 12/10/16 05:00 (Flonase Jerzy Spr) 2 spray DAILY EACH NARE 12/01/16 11:00 12/15/16 10:59 12/10/16 08:42 (Folate) 1 mg DAILY PO 12/03/16 09:00 12/10/16 08:41 (Oramorph Sr) 30 mg Q8HR PO 12/03/16 14:00 12/10/16 05:00 (Lovenox Inj) 40 mg DAILY SQ 12/05/16 09:00 12/08/16 08:00 (Mag-Al Plus Susp Liq) 30 ml Q6HR PRN PO 12/04/16 18:00 12/06/16 08:52 (Carafate Liq) 1 gm QID PO 12/05/16 09:00 12/10/16 08:43 (Lactinex) 1 tab BID PO 12/05/16 21:00 12/10/16 08:41 (Miralax) 17 gm DAILY PRN PO 12/08/16 10:00 Lactated Ringer's 1,000 ml @ 30 mls/hr Q24H PRN IV 12/09/16 01:30 12/12/16 01:29 Sodium Chloride 500 ml @ 30 mls/hr [id number] PRN IV 12/09/16 01:30 12/12/16 01:29 (Betadine 5% Antisepsis Kit) 1 applic SCREW CUTTER PRN EACH NARE 12/09/16 01:30 12/12/16 01:29 (Chlorhexidine 2% Cloth) 3 pack SCREW CUTTER PRN TOPICAL 12/09/16 01:30 12/12/16 01:29 (NovoLIN R INJ) See Protocol Table ... SCREW CUTTER PRN SQ 12/09/16 01:30 12/12/16 01:29 Lactated Ringer's 1,000 ml @ 100 mls/hr Q10H IV 12/09/16 15:57 Cefazolin Sodium/ Dextrose 50 ml @ 100 mls/hr Q8H IV 12/09/16 20:00 12/16/16 19:59 12/10/16 04:14 Gentamicin Sulfate/Sodium Chloride 100 ml @ 200 mls/hr Q8H IV 12/09/16 21:00 12/12/16 20:59 12/10/16 04:59 Miscellaneous Information ALL NURSING DEPARTME... UNSCH PRN .XX 12/09/16 16:20 12/10/16 16:19 (Inderal) 10 mg Q12HR PO 12/10/16 09:00 12/10/16 08:41 Urinary Catheter: No A/P Problem List: (1) Fracture of tibia, left, open ICD Code: S82.202B - Unspecified fracture of shaft of left tibia, initial encounter for open fracture type I or II Status: Acute (2) Fracture of tibia, right, open ICD Code: S82.201B - Unspecified fracture of shaft of right tibia, initial encounter for open fracture type I or II Status: Acute (3) Hypotension ICD Code: I95.9 - Hypotension, unspecified Status: Acute Assessment and Plan 61-year-old male admitted secondary to bilateral leg trauma after car fell on his legs while he was working on. Open fractures were present bilaterally. Hypotensive episodes continue. Decreased Propranolol to 10 mg BID. Diarrhea -Improved -Patient does not appear septic. He is afebrile. Denies any N/V or abdominal pain. Good appetite. -D/C lactulose -Elke Colace on hold -continue Lactobacillus N/V Dyspepsia -Resolved -Continue PPI and Carafate Bilateral open tibia-fibula fractures Left tibial plateau fracture - Open fractures have been surgically repaired, right side has external fixation - Continue wound VAC left leg as per orthopedic surgery recommendations. s/ p wound vac change at bedside today. Ortho plans to take patient to the OR tomorrow for possible skin flap vs wound vac change. NPO after MN. - left tibial plateau treated nonoperatively - Pin care BID to right leg - NWB BLEs - Lortab dose when necessary, Oramorph 30mg every 8 hours and IV Dilaudid 1mg q4H prn breakthrough pain. - patient cleared by Ortho to resume Lovenox sq Acute blood loss anemia - Related to trauma vs post op blood loss - Status post transfusion of 2 units of packed red blood cells in 11/12/16. - on iron supplementation daily. Iron studies reviewed. - hemoglobin stable - monitor CBC as indicated Coronary artery disease with h/o previous CABG - Appears stable. Patient is asymptomatic. - Continue propranolol and statin - ASA 81mg daily - Clonidine PRN Hypertension - MARGIE inhibitor held due to hypotension. - Narcotics seem to have a depressive affect on this patient, however blood pressure has much improved after the patient was taken off IV morphine - BP 107/58. HR 57. Decrease dose of propranolol 20mg BID. Monitor. Diabetes mellitus type 2 - blood sugars well controlled - d/c ISS and accucheks Hyponatremia - mild - encourage fluids - monitor. repeat labs in few days.CBC Alcohol abuse Transaminitis, resolved - AST and ALT now within normal range. - Continue with daily thiamine and folic acid - Alcohol cessation recommended Tobacco abuse - Cessation recommended. Chronic essential tremor - Continue Propranolol at lower dose due to bradycardia with holding parameters, HR <55 -Decreased propranolol to 10 mg BID Leukocytosis - Likely reactive. ID consulted, appreciate recommendations. - Blood cultures show no growth in 5 days - Completed Cefazolin IV, stop date 12/01/16 - resolved GI prophylaxis: PPI DVT prophylaxis: Lovenox sq Discussed with patient, nursing staff and Dr. Pickard Problem Qualifiers (1) Fracture of tibia, left, open: (2) Fracture of tibia, right, open: (3) Hypotension: Aurelio Patterson Jr. Dec 10, 2016 11:14
[2016-12-10 12:00] VITALS: BP 107/60; PULSE 64; RESP 18; TEMP 96.7; O2SAT 100
[2016-12-10 16:00] VITALS: BP 104/64; PULSE 63; RESP 18; TEMP 97; O2SAT 99
[2016-12-10 20:10] VITALS: BP 110/55; PULSE 71; RESP 17; TEMP 98; O2SAT 99
[2016-12-10] MEDS: PRAVASTATIN SOD 80 MG TAB PO SCH (20:31)
[2016-12-10] MEDS: traZODone HCL 100 MG TAB PO SCH (20:31)
[2016-12-10] MEDS: MAGNESIUM HYDROXIDE SUSP 30 ML CUP PO SCH (20:31)
[2016-12-11 00:21] VITALS: BP 86/56; PULSE 84; RESP 18; TEMP 97.8; O2SAT 96
[2016-12-11 03:50] VITALS: BP 115/62; PULSE 89; RESP 18; TEMP 98.2; O2SAT 97
[2016-12-11] MEDS: ACETAMINOPHEN/HYDROcodone 325 MG/10 MG TAB PO PRN ×4 (04:09→21:19)
[2016-12-11] MEDS: ceFAZolin 2 GM PREMIX 50 ML IV SCH ×3 (04:10→21:20)
[2016-12-11] MEDS: GENTAMICIN 80 MG PREMIX 100 ML IV SCH ×3 (04:36→21:20)
[2016-12-11] MEDS: LACTATED RINGER'S 1000 ML INJ 1,000 ML IV SCH ×3 (05:25→23:09)
[2016-12-11] MEDS: NYSTATIN 100,000 UNIT/GM CREAM 15 GM TOPICAL SCH ×5 (05:25→22:32)
[2016-12-11] MEDS: MORPHINE SULFATE 30 MG CONTROLLED RELEASE TAB PO SCH ×3 (05:29→22:31)
[2016-12-11 07:55] VITALS: BP 117/59; PULSE 58; RESP 16; TEMP 97.5; O2SAT 98
[2016-12-11] MEDS: ENOXAPARIN SODIUM 40 MG/0.4 ML SYRINGE SQ SCH (08:23)
[2016-12-11] MEDS: CALCIUM/VITAMIN D 250 MG/125 U TAB PO SCH ×3 (08:23→18:06)
[2016-12-11] MEDS: FOLIC ACID 1 MG TAB PO SCH (08:23)
[2016-12-11] MEDS: ASPIRIN 81 MG CHEW TAB CHEW SCH (08:23)
[2016-12-11] MEDS: GABAPENTIN 300 MG CAP PO SCH ×3 (08:23→18:06)
[2016-12-11] MEDS: PROPRANOLOL HCL 10 MG TAB PO SCH ×2 (08:23→21:20)
[2016-12-11] MEDS: PANTOPRAZOLE SOD 40 MG DELAYED RELEASE TAB PO SCH (08:23)
[2016-12-11] MEDS: THIAMINE HCL 100 MG TAB PO SCH (08:23)
[2016-12-11] MEDS: LACTOBACILLUS ACIDOPHILUS TAB PO SCH ×2 (08:23→21:19)
[2016-12-11] MEDS: SUCRALFATE 1 GM/10 ML CUP PO SCH ×4 (08:24→21:19)
[2016-12-11] MEDS: SODIUM CHLORIDE 0.9% FLUSH 10 ML FLUSH IV FLUSH SCH ×2 (08:24→21:20)
[2016-12-11] MEDS: DOCUSATE SODIUM 50 MG/SENNA 8.6 MG TAB PO SCH ×2 (08:24→21:20)
[2016-12-11] MEDS: NEOMYCIN/POLYMYXIN/BACITRACIN OINT 15 GM TUBE TOPICAL SCH (08:25)
[2016-12-11] MEDS: FLUTICASONE PROPIONATE 50 MCG/ACT 16 GM NASAL SPRAY EACH NARE SCH (08:26)
[2016-12-11] MEDS: HYDROmorphone HCL PF 1 MG/ML VIAL IV PUSH PRN ×2 (11:31→19:08)
[2016-12-11] MEDS: SODIUM CHLORIDE 0.9% FLUSH 10 ML FLUSH IV FLUSH PRN (11:31)
[2016-12-11 11:40] VITALS: BP 105/60; PULSE 65; RESP 16; TEMP 96.9; O2SAT 97
[2016-12-11] MEDS: BISACODYL 10 MG SUPP RECTAL PRN (12:30)
--- NOTE | 2016-12-11 14:48 | HHI.PR ---
Subjective Remarks Follow-up visit bilateral leg trauma, external fixator in place. Pt seen and examined. Pt reported pain being "up there this morning" and rated it as an "8 or 9 out of 10." Pt stated he was waiting "on my pain pill." Pt denied any worsening of his essential tremor since propranolol has been decreased.. He denied any new issues. Pt denied fever, cough, shortness of breath, NVD, bloody urine or stool. Per RN (Germania) no acute issues over night or since start of shift. Objective Vitals Vital Signs Date Time Temp Pulse Resp B/P (MAP) Pulse Ox O2 Delivery O2 Flow Rate FiO2 12/11/16 08:33 Room Air 12/11/16 07:55 97.5 58 16 117/59 (78) 98 12/11/16 03:50 98.2 89 18 115/62 (79) 97 12/11/16 00:21 97.8 84 18 86/56 (66) 96 12/10/16 20:10 98.0 71 17 110/55 (73) 99 12/10/16 16:00 97.0 63 18 104/64 (77) 99 I/O 12/10/16 12/10/16 12/10/16 12/11/16 12/11/16 12/11/16 07:00 15:00 23:00 07:00 15:00 23:00 Intake Total 870 ml 1110 ml 620 ml 580 ml Output Total 450 ml 75 ml 785 ml Balance 420 ml 1110 ml 545 ml -205 ml Intake Oral 720 ml 960 ml 620 ml 480 ml IV Total 150 ml 150 ml 100 ml Output Urine Total 450 ml 775 ml Drainage Total 75 ml 10 ml # Voids 4 5 2 # Bowel Movements 1 2 0 0 Result Diagram: 12/10/16 0745 12/10/16 0745 Imaging Last Impressions Gall Bladder Ultrasound 12/05/16 0000 Signed Impressions: Service Date/Time: Monday, December 05, 2016 08:38 - CONCLUSION: Unremarkable exam. Gallbladder is within normal limits with no evidence of cholelithiasis. Ronald Rao MD Abdomen X-Ray 12/04/16 0000 Signed Impressions: Service Date/Time: November 10:42 - CONCLUSION: Unremarkable bowel gas pattern. Ronald Rao MD Knee X-Ray 11/25/16 0000 Signed Impressions: Service Date/Time: Friday, November 25, 2016 06:44 - CONCLUSION: Post surgical changes are identified. Mumtaz Cornelius MD Tibia/Fibula X-Ray 11/24/16 0000 Signed Impressions: Service Date/Time: Thursday, November 24, 2016 10:06 - CONCLUSION: 1. Mildly displaced lateral tibial plateau fracture which is not clearly evident on the previous studies. 2. Otherwise stable left tibia status post ORIF. 3. Wound VAC remains in place. Dex Wild MD Ankle X-Ray 11/24/16 0000 Signed Impressions: Service Date/Time: Thursday, November 24, 2016 10:08 - CONCLUSION: Stable satisfactory appearance of the right ankle as described. Dex Wild MD Chest X-Ray 11/20/16 0000 Signed Impressions: Service Date/Time: November 17:08 - CONCLUSION: 1. No acute abnormality or significant interval change. Sukhi Stevens MD Pelvis X-Ray 11/07/16 1355 Signed Impressions: Service Date/Time: Monday, November 07, 2016 13:34 - CONCLUSION: No acute disease. Behzad Finch Jr., MD Objective Remarks GENERAL: Pt laying abed, awake and alert. Talking with physical therapist. SKIN: Warm and dry. HEAD: Normocephalic. EYES: No scleral icterus. No injection or drainage. NECK: Supple, trachea midline. No lymphadenopathy. CARDIOVASCULAR: Regular rate and rhythm without murmurs, gallops, or rubs. RESPIRATORY: Breath sounds equal bilaterally. No accessory muscle use. GASTROINTESTINAL: Abdomen soft, non-tender, nondistended. MUSCULOSKELETAL: No cyanosis, or edema. Right leg ORIF. PSYCHIATRIC: Alert and oriented x 3. No overt signs of depression/anxiety. Pleasant and cooperative. Procedures 1.s/p I&D with ex fix application bilateral tibias s/p wound vac application left tibia 2.With the assistance of RN, under sterile technique the avulsed skin of the right middle finger was clipped. No bleeding noted. Patient gave consent 3.Open reduction internal fixation of right distal tibia and fibula fractures Nonoperative treatment left tibial plateau fracture Irrigation and debridement of left tibia shaft fracture, removal external fixation, soleus muscle rotational flap, intramedullary nail fixation left tibia , application of wound VAC dressing 4.11/13 Irrigation and debridement of left tibia, application wound VAC dressing 5. 11/28 Irrigation and debridement of left open tibia fracture with application of wound VAC dressing 6. 12/01 wound vac change at the bedside 7. 12/05 wound vac change at the bedside 8. 12/08 wound vac change at the bedside Medications and IVs Current Medications Medications (Trade) Dose Ordered Sig/Milagro Route Start Time Stop Time Status Last Admin (NS Flush) 2 ml UNSCH PRN IV FLUSH 11/07/16 14:30 12/11/16 11:31 (NS Flush) 2 ml BID IV FLUSH 11/07/16 21:00 12/11/16 08:24 (Zofran Inj) 4 mg Q6H PRN IV 11/07/16 14:30 12/04/16 06:13 (Narcan Inj) 0.4 mg UNSCH PRN IV 11/07/16 14:30 (Tylenol) 650 mg Q4H PRN PO 11/08/16 08:15 (Tums Chew) 1,000 mg TID PRN CHEW 11/08/16 08:15 12/06/16 08:52 (Vasotec Inj) 1.25 mg Q6H PRN IV 11/08/16 08:15 (Catapres) 0.1 mg Q6H PRN PO 11/08/16 08:15 (Aspirin Chew) 81 mg DAILY CHEW 11/08/16 12:45 12/11/16 08:23 (Prinivil) 25 mg DAILY PO 11/08/16 12:45 Future Hold 11/18/16 09:59 (Nitrostat Sl) 0.4 mg Q6HR PRN SL 11/08/16 12:45 (Protonix) 40 mg DAILY PO 11/08/16 12:45 12/11/16 08:23 (Pravachol) 80 mg HS PO 11/08/16 21:00 12/10/16 20:31 (Pill Splitter) 1 ea UNSCH PRN OTHER 11/08/16 12:45 (Elke-Colace) 1 tab BID PO 11/08/16 12:45 12/11/16 08:24 (Vitamin B1) 100 mg DAILY PO 11/09/16 09:00 12/11/16 08:23 (Romazicon Inj) 0.2 mg Q1M PRN IV PUSH 11/08/16 13:00 (Haldol Inj) 2 mg Q15M PRN IM 11/08/16 13:00 (Neosporin Oint) 1 applic DAILY TOPICAL 11/10/16 09:00 12/09/16 08:20 (Milk Of Magnesia Liq) 30 ml HS PO 11/10/16 21:00 12/10/16 20:31 (Oscal-D 250-125) 250 mg TID PO 11/10/16 13:00 12/11/16 12:31 (Duoneb Neb) 1 ampule Q4HR NEB PRN NEB 11/12/16 13:15 (Ambien) 5 mg HS PRN PO 11/14/16 11:00 (Desyrel) 100 mg HS PO 11/14/16 21:00 12/10/16 20:31 (Neurontin) 600 mg TID PO 11/16/16 13:00 12/11/16 12:31 (Howard 10-325 Mg) 1 tab Q4H PRN PO 11/20/16 00:45 12/08/16 18:40 (Dilaudid Pf Inj) 1 mg Q4H PRN IV PUSH 11/20/16 00:45 12/11/16 11:31 (Compazine Inj) 10 mg Q8H PRN IV PUSH 11/25/16 16:15 11/25/16 18:00 (Milk Of Magnesia Liq) 30 ml Q12H PRN PO 11/28/16 11:30 11/29/16 12:43 (Senokot) 17.2 mg Q12H PRN PO 11/28/16 11:30 (Dulcolax Supp) 10 mg DAILY PRN RECTAL 11/28/16 11:30 12/11/16 12:30 (Howard 10-325 Mg) 1.5 tab Q4H PRN PO 11/28/16 15:00 12/11/16 08:25 (Mycostatin Cream) 1 applic Q6HR TOPICAL 11/28/16 14:00 12/10/16 05:00 (Flonase Jerzy Spr) 2 spray DAILY EACH NARE 12/01/16 11:00 12/15/16 10:59 12/11/16 08:26 (Folate) 1 mg DAILY PO 12/03/16 09:00 12/11/16 08:23 (Oramorph Sr) 30 mg Q8HR PO 12/03/16 14:00 12/11/16 14:10 (Lovenox Inj) 40 mg DAILY SQ 12/05/16 09:00 12/11/16 08:23 (Mag-Al Plus Susp Liq) 30 ml Q6HR PRN PO 12/04/16 18:00 12/06/16 08:52 (Carafate Liq) 1 gm QID PO 12/05/16 09:00 12/11/16 12:31 (Lactinex) 1 tab BID PO 12/05/16 21:00 12/11/16 08:23 (Miralax) 17 gm DAILY PRN PO 12/08/16 10:00 Lactated Ringer's 1,000 ml @ 30 mls/hr Q24H PRN IV 12/09/16 01:30 12/12/16 01:29 Sodium Chloride 500 ml @ 30 mls/hr [id number] PRN IV 12/09/16 01:30 12/12/16 01:29 (Betadine 5% Antisepsis Kit) 1 applic [employer] PRN EACH NARE 12/09/16 01:30 12/12/16 01:29 (Chlorhexidine 2% Cloth) 3 pack [employer]ER PRN TOPICAL 12/09/16 01:30 12/12/16 01:29 (NovoLIN R INJ) See Protocol Table ... [employer]ER PRN SQ 12/09/16 01:30 12/12/16 01:29 Lactated Ringer's 1,000 ml @ 100 mls/hr Q10H IV 12/09/16 15:57 Cefazolin Sodium/ Dextrose 50 ml @ 100 mls/hr Q8H IV 12/09/16 20:00 12/16/16 19:59 12/11/16 11:33 Gentamicin Sulfate/Sodium Chloride 100 ml @ 200 mls/hr Q8H IV 12/09/16 21:00 12/12/16 20:59 12/11/16 12:31 (Inderal) 10 mg Q12HR PO 12/10/16 09:00 12/11/16 08:23 Urinary Catheter: No A/P Problem List: (1) Fracture of tibia, left, open ICD Code: S82.202B - Unspecified fracture of shaft of left tibia, initial encounter for open fracture type I or II Status: Acute (2) Fracture of tibia, right, open ICD Code: S82.201B - Unspecified fracture of shaft of right tibia, initial encounter for open fracture type I or II Status: Acute (3) Hypotension ICD Code: I95.9 - Hypotension, unspecified Status: Acute Assessment and Plan 61-year-old male admitted secondary to bilateral leg trauma after car fell on his legs while he was working on. Open fractures were present bilaterally. Hypotensive episodes: lessening in frequency. Essential tremor: not appreciated. Decreased sodium level: Monitor with labs (12/12/16). Diarrhea -Improved -Patient does not appear septic. He is afebrile. Denies any N/V or abdominal pain. Good appetite. -D/C lactulose -Elke Colace on hold -continue Lactobacillus N/V Dyspepsia -Resolved -Continue PPI and Carafate Bilateral open tibia-fibula fractures Left tibial plateau fracture - Open fractures have been surgically repaired, right side has external fixation - Continue wound VAC left leg as per orthopedic surgery recommendations. s/ p wound vac change at bedside today. Ortho plans to take patient to the OR tomorrow for possible skin flap vs wound vac change. NPO after MN. - left tibial plateau treated nonoperatively - Pin care BID to right leg - NWB BLEs - Lortab dose when necessary, Oramorph 30mg every 8 hours and IV Dilaudid 1mg q4H prn breakthrough pain. - patient cleared by Ortho to resume Lovenox sq Acute blood loss anemia - Related to trauma vs post op blood loss - Status post transfusion of 2 units of packed red blood cells in 11/12/16. - on iron supplementation daily. Iron studies reviewed. - hemoglobin stable - monitor CBC as indicated Coronary artery disease with h/o previous CABG - Appears stable. Patient is asymptomatic. - Continue propranolol and statin - ASA 81mg daily - Clonidine PRN Hypertension - MARGIE inhibitor held due to hypotension. - Narcotics seem to have a depressive affect on this patient, however blood pressure has much improved after the patient was taken off IV morphine - BP 107/58. HR 57. Decrease dose of propranolol 10mg BID. Monitor. Diabetes mellitus type 2 - blood sugars well controlled - d/c ISS and accucheks Hyponatremia - mild - encourage fluids - monitor. repeat labs in few days.CBC Alcohol abuse Transaminitis, resolved - AST and ALT now within normal range. - Continue with daily thiamine and folic acid - Alcohol cessation recommended Tobacco abuse - Cessation recommended. Chronic essential tremor - Continue Propranolol at lower dose due to bradycardia with holding parameters, HR <55 -Decreased propranolol to 10 mg BID Leukocytosis - Likely reactive. ID consulted, appreciate recommendations. - Blood cultures show no growth in 5 days - Completed Cefazolin IV, stop date 12/01/16 - resolved GI prophylaxis: PPI DVT prophylaxis: Lovenox sq Discussed with patient, nursing staff and Dr. Pickard Problem Qualifiers (1) Fracture of tibia, left, open: (2) Fracture of tibia, right, open: (3) Hypotension: Aurelio Patterson Jr. Dec 11, 2016 14:48
[2016-12-11 15:15] VITALS: BP 103/58; PULSE 67; RESP 17; TEMP 96.8; O2SAT 99
[2016-12-11] MEDS ORDERED: MENTHOL/METHYL SALICYLATE OINT 30 GM TUBE TOPICAL PRN (15:30)
[2016-12-11 19:50] VITALS: BP 127/61; PULSE 98; RESP 16; TEMP 98.2; O2SAT 97
[2016-12-11] MEDS: MAGNESIUM HYDROXIDE SUSP 30 ML CUP PO SCH (21:19)
[2016-12-11] MEDS: PRAVASTATIN SOD 80 MG TAB PO SCH (21:20)
[2016-12-11] MEDS: traZODone HCL 100 MG TAB PO SCH (21:20)
[2016-12-12] VITALS: BP 116/60; PULSE 85; RESP 17; TEMP 98.3; O2SAT 99
[2016-12-12] MEDS: HYDROmorphone HCL PF 1 MG/ML VIAL IV PUSH PRN (00:23)
[2016-12-12] MEDS: ACETAMINOPHEN/HYDROcodone 325 MG/10 MG TAB PO PRN ×5 (01:50→23:50)
[2016-12-12] MEDS: MORPHINE SULFATE 30 MG CONTROLLED RELEASE TAB PO SCH ×3 (05:27→21:49)
[2016-12-12] MEDS: ceFAZolin 2 GM PREMIX 50 ML IV SCH ×3 (05:28→20:00)
[2016-12-12] MEDS: GENTAMICIN 80 MG PREMIX 100 ML IV SCH ×2 (05:28→12:25)
[2016-12-12] MEDS: NYSTATIN 100,000 UNIT/GM CREAM 15 GM TOPICAL SCH ×5 (05:32→21:52)
--- NOTE | 2016-12-12 07:07 | PD.ORT.PN ---
Subjective Subjective Remarks POD 30 s/p left tibia IMN and right tibia ORIF s/p left tibia soleus flap s/p left tibial plateau fracture doing well. pain controlled. ambulating with wheelchair Objective Vitals Vital Signs Date Time Temp Pulse Resp B/P (MAP) Pulse Ox O2 Delivery O2 Flow Rate FiO2 12/12/16 00:00 98.3 85 17 116/60 (78) 99 12/11/16 19:50 98.2 98 16 127/61 (83) 97 12/11/16 15:15 96.8 67 17 103/58 (73) 99 12/11/16 11:40 96.9 65 16 105/60 (75) 97 12/11/16 08:33 Room Air 12/11/16 07:55 97.5 58 16 117/59 (78) 98 I/O 12/11/16 12/11/16 12/11/16 12/12/16 12/12/16 12/12/16 07:00 15:00 23:00 07:00 15:00 23:00 Intake Total 580 ml 1160 ml 1060 ml 700 ml Output Total 785 ml 25 ml 775 ml 750 ml Balance -205 ml 1135 ml 285 ml -50 ml Intake Oral 480 ml 960 ml 960 ml 600 ml IV Total 100 ml 200 ml 100 ml 100 ml Output Urine Total 775 ml 750 ml 750 ml Drainage Total 10 ml 25 ml 25 ml 0 ml # Voids 3 # Bowel Movements 0 1 Result Diagram: 12/10/16 0745 12/10/16 0745 Imaging Last 24 hours Impressions Pelvis X-Ray 11/07/16 1355 Signed Impressions: Service Date/Time: Monday, November 07, 2016 13:34 - CONCLUSION: No acute disease. Behzad Finch Jr., MD Chest X-Ray 11/07/16 1355 Signed Impressions: Service Date/Time: Monday, November 07, 2016 13:34 - CONCLUSION: No acute disease. Jac Gonzales MD Objective Remarks sitting up in bed RLE: Dressings clean and dry. intact. with full sensation and motor function. + exfix. pin sites. clean LLE: Wound VAC intact. Good seal. no sensation over medial foot. inability to dorsiflex or flex toes/foot. vac removed and wound visualized. clean. + granulation tissue. Assessment & Plan Assessment and Plan 1) Right Open Tibia Fracture s/p exfix revision with ORIF - POD #31 2) Left Open Tibia Fracture s/p Soleus muscle flap with IMN and removal of exfix - POD #31 3) left tibia plateau fracture treated nonoperatively 4) s/p vac change with collagen grafting - POD 3 -NWB BLE -pin care BID right leg -vac changed at bedside today -maintain vac left leg -vac settinmmHg, intermittent, 3:1 - will plan for vac change at bedside thursday -if arrangements can be made from hospital standpoint to allow patient to leave for a few hours to attend to personal matters and come back, OK per ortho. Jef Steve Dec 12, 2016 07:07
[2016-12-12 07:15] VITALS: BP 119/58; PULSE 66; RESP 16; TEMP 97.2; O2SAT 96
[2016-12-12 07:57] LABS: HEMATOCRIT 33.2 % (39.0-51.0); MEAN CELL VOLUME 94.5 FL (80.0-100.0); MEAN CORPUSCULAR HGB CONC 31.7 % (32.0-36.0); PLATELET COUNT 270 TH/MM3 (150-450); RED BLOOD COUNT 3.52 MIL/MM3 (4.50-5.90); RED CELL DISTRIBUTION WIDTH 13.7 % (11.6-17.2); REVIEW FLAG FINAL; WHITE BLOOD COUNT 8.6 TH/MM3 (4.0-11.0)
[2016-12-12 08:19] LABS: BICARBONATE 30.1 MEQ/L (21.0-32.0); POTASSIUM 3.6 MEQ/L (3.5-5.1)
[2016-12-12] MEDS: FLUTICASONE PROPIONATE 50 MCG/ACT 16 GM NASAL SPRAY EACH NARE SCH (09:00)
[2016-12-12] MEDS: SODIUM CHLORIDE 0.9% FLUSH 10 ML FLUSH IV FLUSH SCH ×2 (09:00→21:00)
[2016-12-12] MEDS: PROPRANOLOL HCL 10 MG TAB PO SCH ×2 (09:00→21:50)
[2016-12-12] MEDS: NEOMYCIN/POLYMYXIN/BACITRACIN OINT 15 GM TUBE TOPICAL SCH (09:00)
[2016-12-12] MEDS: CALCIUM/VITAMIN D 250 MG/125 U TAB PO SCH ×3 (09:22→17:51)
[2016-12-12] MEDS: ENOXAPARIN SODIUM 40 MG/0.4 ML SYRINGE SQ SCH (09:22)
[2016-12-12] MEDS: THIAMINE HCL 100 MG TAB PO SCH (09:23)
[2016-12-12] MEDS: LACTOBACILLUS ACIDOPHILUS TAB PO SCH ×2 (09:23→21:50)
[2016-12-12] MEDS: PANTOPRAZOLE SOD 40 MG DELAYED RELEASE TAB PO SCH (09:23)
[2016-12-12] MEDS: ASPIRIN 81 MG CHEW TAB CHEW SCH (09:23)
[2016-12-12] MEDS: GABAPENTIN 300 MG CAP PO SCH ×3 (09:23→17:51)
[2016-12-12] MEDS: DOCUSATE SODIUM 50 MG/SENNA 8.6 MG TAB PO SCH ×2 (09:23→21:50)
[2016-12-12] MEDS: FOLIC ACID 1 MG TAB PO SCH (09:23)
[2016-12-12] MEDS: SUCRALFATE 1 GM/10 ML CUP PO SCH ×4 (09:23→21:49)
[2016-12-12 12:28] VITALS: BP 119/70; PULSE 66; RESP 17; TEMP 98.7; O2SAT 100
[2016-12-12] MEDS: LACTATED RINGER'S 1000 ML INJ 1,000 ML IV SCH ×2 (13:57→21:50)
--- NOTE | 2016-12-12 14:54 | HHI.PR ---
Subjective Remarks Follow-up visit bilateral leg trauma, external fixator in place. Pt seen and examined. Pt reported pain being a 5 /10 at time of interview. he spoke of pain ranging as high as "8 or a 9" and is "usually between 7 and a 8". Pt continues to deny any worsening of his essential tremor since propranolol has been decreased. Pt reported right shoulder pain due to arthritis. Requesting "dhaval-daniels or Icy hot ". Pt stated he is getting around unit in his wheelchair. He denied any new issues. Pt denied fever, cough, shortness of breath, NVD, headache, light headedness, bloody urine or stool. Per RN (Nataliia) no acute issues over night or since start of shift. Objective Vitals Vital Signs Date Time Temp Pulse Resp B/P (MAP) Pulse Ox O2 Delivery O2 Flow Rate FiO2 12/12/16 12:28 98.7 66 17 119/70 (86) 100 12/12/16 07:15 97.2 66 16 119/58 (78) 96 12/12/16 00:00 98.3 85 17 116/60 (78) 99 12/11/16 19:50 98.2 98 16 127/61 (83) 97 12/11/16 15:15 96.8 67 17 103/58 (73) 99 I/O 12/11/16 12/11/16 12/11/16 12/12/16 12/12/16 12/12/16 07:00 15:00 23:00 07:00 15:00 23:00 Intake Total 580 ml 1160 ml 1060 ml 700 ml Output Total 785 ml 25 ml 775 ml 750 ml Balance -205 ml 1135 ml 285 ml -50 ml Intake Oral 480 ml 960 ml 960 ml 600 ml IV Total 100 ml 200 ml 100 ml 100 ml Output Urine Total 775 ml 750 ml 750 ml Drainage Total 10 ml 25 ml 25 ml 0 ml # Voids 3 # Bowel Movements 0 1 Result Diagram: 12/12/1673112/12/16731 Objective Remarks GENERAL: Pt laying abed, awake and alert. SKIN: Warm and dry. HEAD: Normocephalic. EYES: No scleral icterus. No injection or drainage. NECK: Supple, trachea midline. No lymphadenopathy. CARDIOVASCULAR: Regular rate and rhythm without murmurs, gallops, or rubs. RESPIRATORY: Breath sounds equal bilaterally. No accessory muscle use. GASTROINTESTINAL: Abdomen soft, non-tender, nondistended. MUSCULOSKELETAL: No cyanosis, or edema. Right leg ORIF. PSYCHIATRIC: Alert and oriented x 3. No overt signs of depression/anxiety. Pleasant and cooperative. Procedures 1.s/p I&D with ex fix application bilateral tibias s/p wound vac application left tibia 2.With the assistance of RN, under sterile technique the avulsed skin of the right middle finger was clipped. No bleeding noted. Patient gave consent 3.Open reduction internal fixation of right distal tibia and fibula fractures Nonoperative treatment left tibial plateau fracture Irrigation and debridement of left tibia shaft fracture, removal external fixation, soleus muscle rotational flap, intramedullary nail fixation left tibia , application of wound VAC dressing 4.11/13 Irrigation and debridement of left tibia, application wound VAC dressing 5. 11/28 Irrigation and debridement of left open tibia fracture with application of wound VAC dressing 6. 12/01 wound vac change at the bedside 7. 12/05 wound vac change at the bedside 8. 12/08 wound vac change at the bedside Medications and IVs Current Medications Medications (Trade) Dose Ordered Sig/Milagro Route Start Time Stop Time Status Last Admin (NS Flush) 2 ml UNSCH PRN IV FLUSH 11/07/16 14:30 12/11/16 11:31 (NS Flush) 2 ml BID IV FLUSH 11/07/16 21:00 12/12/16 09:00 (Zofran Inj) 4 mg Q6H PRN IV 11/07/16 14:30 12/04/16 06:13 (Narcan Inj) 0.4 mg UNSCH PRN IV 11/07/16 14:30 (Tylenol) 650 mg Q4H PRN PO 11/08/16 08:15 (Tums Chew) 1,000 mg TID PRN CHEW 11/08/16 08:15 12/06/16 08:52 (Vasotec Inj) 1.25 mg Q6H PRN IV 11/08/16 08:15 (Catapres) 0.1 mg Q6H PRN PO 11/08/16 08:15 (Aspirin Chew) 81 mg DAILY CHEW 11/08/16 12:45 12/12/16 09:23 (Prinivil) 25 mg DAILY PO 11/08/16 12:45 Future Hold 11/18/16 09:59 (Nitrostat Sl) 0.4 mg Q6HR PRN SL 11/08/16 12:45 (Protonix) 40 mg DAILY PO 11/08/16 12:45 12/12/16 09:23 (Pravachol) 80 mg HS PO 11/08/16 21:00 12/11/16 21:20 (Pill Splitter) 1 ea UNSCH PRN OTHER 11/08/16 12:45 (Elke-Colace) 1 tab BID PO 11/08/16 12:45 12/12/16 09:23 (Vitamin B1) 100 mg DAILY PO 11/09/16 09:00 12/12/16 09:23 (Romazicon Inj) 0.2 mg Q1M PRN IV PUSH 11/08/16 13:00 (Haldol Inj) 2 mg Q15M PRN IM 11/08/16 13:00 (Neosporin Oint) 1 applic DAILY TOPICAL 11/10/16 09:00 12/09/16 08:20 (Milk Of Magnesia Liq) 30 ml HS PO 11/10/16 21:00 12/11/16 21:19 (Oscal-D 250-125) 250 mg TID PO 11/10/16 13:00 12/12/16 12:24 (Duoneb Neb) 1 ampule Q4HR NEB PRN NEB 11/12/16 13:15 (Ambien) 5 mg HS PRN PO 11/14/16 11:00 (Desyrel) 100 mg HS PO 11/14/16 21:00 12/11/16 21:20 (Neurontin) 600 mg TID PO 11/16/16 13:00 12/12/16 12:24 ([place] 10-325 Mg) 1 tab Q4H PRN PO 11/20/16 00:45 12/08/16 18:40 (Dilaudid Pf Inj) 1 mg Q4H PRN IV PUSH 11/20/16 00:45 12/12/16 00:23 (Compazine Inj) 10 mg Q8H PRN IV PUSH 11/25/16 16:15 11/25/16 18:00 (Milk Of Magnesia Liq) 30 ml Q12H PRN PO 11/28/16 11:30 11/29/16 12:43 (Senokot) 17.2 mg Q12H PRN PO 11/28/16 11:30 (Dulcolax Supp) 10 mg DAILY PRN RECTAL 11/28/16 11:30 12/11/16 12:30 ([place] 10-325 Mg) 1.5 tab Q4H PRN PO 11/28/16 15:00 12/12/16 12:26 (Mycostatin Cream) 1 applic Q6HR TOPICAL 11/28/16 14:00 12/10/16 05:00 (Flonase Jerzy Spr) 2 spray DAILY EACH NARE 12/01/16 11:00 12/15/16 10:59 12/11/16 08:26 (Folate) 1 mg DAILY PO 12/03/16 09:00 12/12/16 09:23 (Oramorph Sr) 30 mg Q8HR PO 12/03/16 14:00 12/12/16 05:27 (Lovenox Inj) 40 mg DAILY SQ 12/05/16 09:00 12/12/16 09:22 (Mag-Al Plus Susp Liq) 30 ml Q6HR PRN PO 12/04/16 18:00 12/06/16 08:52 (Carafate Liq) 1 gm QID PO 12/05/16 09:00 12/12/16 12:24 (Lactinex) 1 tab BID PO 12/05/16 21:00 12/12/16 09:23 Lactated Ringer's 1,000 ml @ 100 mls/hr Q10H IV 12/09/16 15:57 Cefazolin Sodium/ Dextrose 50 ml @ 100 mls/hr Q8H IV 12/09/16 20:00 12/16/16 19:59 12/12/16 12:24 Gentamicin Sulfate/Sodium Chloride 100 ml @ 200 mls/hr Q8H IV 12/09/16 21:00 12/12/16 20:59 12/12/16 12:25 (Inderal) 10 mg Q12HR PO 12/10/16 09:00 12/11/16 21:20 (Dhaval Daniels Oint) 1 applic UNSCH PRN TOPICAL 12/11/16 15:30 Urinary Catheter: No A/P Problem List: (1) Fracture of tibia, left, open ICD Code: S82.202B - Unspecified fracture of shaft of left tibia, initial encounter for open fracture type I or II Status: Acute (2) Fracture of tibia, right, open ICD Code: S82.201B - Unspecified fracture of shaft of right tibia, initial encounter for open fracture type I or II Status: Acute (3) Hypotension ICD Code: I95.9 - Hypotension, unspecified Status: Acute (4) Right shoulder pain ICD Code: M25.511 - Pain in right shoulder Assessment and Plan 61-year-old male admitted secondary to bilateral leg trauma after car fell on his legs while he was working on. Open fractures were present bilaterally. Hypotensive episodes: lessening in frequency. Essential tremor: not appreciated. Decreased sodium level: WNL. Right shoulder pain: Dhaval-daniels ordered. Diarrhea -Improved -Patient does not appear septic. He is afebrile. Denies any N/V or abdominal pain. Good appetite. -D/C lactulose -Elke Colace on hold -continue Lactobacillus N/V Dyspepsia -Resolved -Continue PPI and Carafate Bilateral open tibia-fibula fractures Left tibial plateau fracture - Open fractures have been surgically repaired, right side has external fixation - Continue wound VAC left leg as per orthopedic surgery recommendations. s/ p wound vac change at bedside today. Ortho plans to take patient to the OR tomorrow for possible skin flap vs wound vac change. NPO after MN. - left tibial plateau treated nonoperatively - Pin care BID to right leg - NWB BLEs - Lortab dose when necessary, Oramorph 30mg every 8 hours and IV Dilaudid 1mg q4H prn breakthrough pain. - patient cleared by Ortho to resume Lovenox sq Acute blood loss anemia - Related to trauma vs post op blood loss - Status post transfusion of 2 units of packed red blood cells in 11/12/16. - on iron supplementation daily. Iron studies reviewed. - hemoglobin stable - monitor CBC as indicated Coronary artery disease with h/o previous CABG - Appears stable. Patient is asymptomatic. - Continue propranolol and statin - ASA 81mg daily - Clonidine PRN Hypertension - MARGIE inhibitor held due to hypotension. - Narcotics seem to have a depressive affect on this patient, however blood pressure has much improved after the patient was taken off IV morphine - BP 107/58. HR 57. Decrease dose of propranolol 10mg BID. Monitor. Diabetes mellitus type 2 - blood sugars well controlled - d/c ISS and accucheks Hyponatremia - mild - encourage fluids - monitor. repeat labs in few days.CBC -WNL Alcohol abuse Transaminitis, resolved - AST and ALT now within normal range. - Continue with daily thiamine and folic acid - Alcohol cessation recommended Tobacco abuse - Cessation recommended. Chronic essential tremor - Continue Propranolol at lower dose due to bradycardia with holding parameters, HR <55 -Decreased propranolol to 10 mg BID Leukocytosis - Likely reactive. ID consulted, appreciate recommendations. - Blood cultures show no growth in 5 days - Completed Cefazolin IV, stop date 12/01/16 - resolved Right shoulder pain (arthritis): -Dhaval daniels, apply PRN GI prophylaxis: PPI DVT prophylaxis: Lovenox sq Discussed with patient, nursing staff and Dr. Pickard Problem Qualifiers (1) Fracture of tibia, left, open: (2) Fracture of tibia, right, open: (3) Hypotension: (4) Right shoulder pain: Qualified Codes: M25.511 - Pain in right shoulder; G89.29 - Other chronic pain Aurelio Patterson Jr. Dec 12, 2016 14:54
[2016-12-12 16:04] VITALS: BP 103/57; PULSE 71; RESP 18; TEMP 95.7; O2SAT 98
[2016-12-12 20:05] VITALS: BP 112/57; PULSE 68; RESP 16; TEMP 97; O2SAT 98
[2016-12-12] MEDS: PRAVASTATIN SOD 80 MG TAB PO SCH (21:50)
[2016-12-12] MEDS: MAGNESIUM HYDROXIDE SUSP 30 ML CUP PO SCH (21:50)
[2016-12-12] MEDS: traZODone HCL 100 MG TAB PO SCH (21:50)
[2016-12-13 00:12] VITALS: BP 127/77; PULSE 67; RESP 16; TEMP 97.3; O2SAT 98
[2016-12-13] MEDS: HYDROmorphone HCL PF 1 MG/ML VIAL IV PUSH PRN ×2 (02:22→19:59)
[2016-12-13] MEDS: ceFAZolin 2 GM PREMIX 50 ML IV SCH ×3 (02:22→19:58)
[2016-12-13] MEDS: MORPHINE SULFATE 30 MG CONTROLLED RELEASE TAB PO SCH ×3 (05:34→22:42)
[2016-12-13] MEDS: ACETAMINOPHEN/HYDROcodone 325 MG/10 MG TAB PO PRN ×4 (06:54→23:44)
[2016-12-13 08:00] VITALS: BP 124/66; PULSE 62; RESP 18; TEMP 97.2; O2SAT 100
[2016-12-13] MEDS: SODIUM CHLORIDE 0.9% FLUSH 10 ML FLUSH IV FLUSH SCH ×2 (09:00→19:59)
[2016-12-13] MEDS: FLUTICASONE PROPIONATE 50 MCG/ACT 16 GM NASAL SPRAY EACH NARE SCH (09:00)
[2016-12-13] MEDS: NEOMYCIN/POLYMYXIN/BACITRACIN OINT 15 GM TUBE TOPICAL SCH (09:00)
[2016-12-13] MEDS: CALCIUM/VITAMIN D 250 MG/125 U TAB PO SCH ×3 (09:42→17:29)
[2016-12-13] MEDS: PROPRANOLOL HCL 10 MG TAB PO SCH ×2 (09:42→19:58)
[2016-12-13] MEDS: ASPIRIN 81 MG CHEW TAB CHEW SCH (09:42)
[2016-12-13] MEDS: GABAPENTIN 300 MG CAP PO SCH ×3 (09:42→17:29)
[2016-12-13] MEDS: SUCRALFATE 1 GM/10 ML CUP PO SCH ×4 (09:42→19:58)
[2016-12-13] MEDS: LACTOBACILLUS ACIDOPHILUS TAB PO SCH ×2 (09:42→19:58)
[2016-12-13] MEDS: DOCUSATE SODIUM 50 MG/SENNA 8.6 MG TAB PO SCH ×2 (09:42→19:58)
[2016-12-13] MEDS: FOLIC ACID 1 MG TAB PO SCH (09:42)
[2016-12-13] MEDS: PANTOPRAZOLE SOD 40 MG DELAYED RELEASE TAB PO SCH (09:42)
[2016-12-13] MEDS: THIAMINE HCL 100 MG TAB PO SCH (09:42)
[2016-12-13] MEDS: LACTATED RINGER'S 1000 ML INJ 1,000 ML IV SCH ×2 (09:43→19:57)
[2016-12-13] MEDS: ENOXAPARIN SODIUM 40 MG/0.4 ML SYRINGE SQ SCH (09:43)
[2016-12-13 11:57] VITALS: BP 94/50; PULSE 70; RESP 18; TEMP 96.5; O2SAT 97
[2016-12-13] MEDS: NYSTATIN 100,000 UNIT/GM CREAM 15 GM TOPICAL SCH ×2 (12:00→17:44)
--- NOTE | 2016-12-13 12:04 | HHI.PR ---
Subjective Remarks Follow-up visit bilateral leg trauma, external fixator in place. Pt seen and examined. Pt reported pain "up there this morning." Stated his left knee was more painful than his right. Pt attributed some of the pain to "getting my (drainage) hose caught up in the wheel the other day. And I twisted my knee a bit" Pt stated "my tremor came back fierce this morning." Pt stated it impacted his ability to eat. Pt stated tremor can "get bad enough that my entire body shakes. " Pt reported right shoulder pain due was "better since I got some that dhaval-daniels on there." Pt stated as a result he had increased mobility of the shoulder as well as his neck. He denied any new issues. Pt denied fever, cough, shortness of breath, NVD, headache, light headedness, bloody urine or stool. Per RN (Aide) no acute issues over night or since start of shift. Objective Vitals Vital Signs Date Time Temp Pulse Resp B/P (MAP) Pulse Ox O2 Delivery O2 Flow Rate FiO2 12/13/16 08:00 97.2 62 18 124/66 (85) 100 12/13/16 00:12 97.3 67 16 127/77 (94) 98 12/12/16 20:05 97.0 68 16 112/57 (75) 98 12/12/16 16:04 95.7 71 18 103/57 (72) 98 12/12/16 12:28 98.7 66 17 119/70 (86) 100 I/O 12/12/16 12/12/16 12/12/16 12/13/16 12/13/16 12/13/16 07:00 15:00 23:00 07:00 15:00 23:00 Intake Total 700 ml 770 ml 1010 ml 960 ml Output Total 750 ml 930 ml 5 ml Balance -50 ml 770 ml 80 ml 960 ml -5 ml Intake Oral 600 ml 720 ml 960 ml 960 ml IV Total 100 ml 50 ml 50 ml Output Urine Total 750 ml 900 ml Drainage Total 0 ml 30 ml 5 ml # Voids 4 2 # Bowel Movements 1 Result Diagram: 12/12/16 0732 12/12/16 0732 Objective Remarks GENERAL: Pt laying abed, awake and alert. SKIN: Warm and dry. HEAD: Normocephalic. EYES: No scleral icterus. No injection or drainage. NECK: Supple, trachea midline. No lymphadenopathy. CARDIOVASCULAR: Regular rate and rhythm without murmurs, gallops, or rubs. RESPIRATORY: Breath sounds equal bilaterally. No accessory muscle use. GASTROINTESTINAL: Abdomen soft, non-tender, nondistended. MUSCULOSKELETAL: No cyanosis, or edema. Right leg ORIF. Bilateral upper extremity tremor noted. PSYCHIATRIC: Alert and oriented x 3. No overt signs of depression/anxiety. Pleasant and cooperative. Procedures 1.s/p I&D with ex fix application bilateral tibias s/p wound vac application left tibia 2.With the assistance of RN, under sterile technique the avulsed skin of the right middle finger was clipped. No bleeding noted. Patient gave consent 3.Open reduction internal fixation of right distal tibia and fibula fractures Nonoperative treatment left tibial plateau fracture Irrigation and debridement of left tibia shaft fracture, removal external fixation, soleus muscle rotational flap, intramedullary nail fixation left tibia , application of wound VAC dressing 4.11/13 Irrigation and debridement of left tibia, application wound VAC dressing 5. 11/28 Irrigation and debridement of left open tibia fracture with application of wound VAC dressing 6. 12/01 wound vac change at the bedside 7. 12/05 wound vac change at the bedside 8. 12/08 wound vac change at the bedside Medications and IVs Current Medications Medications (Trade) Dose Ordered Sig/Milagro Route Start Time Stop Time Status Last Admin (NS Flush) 2 ml UNSCH PRN IV FLUSH 11/07/16 14:30 12/11/16 11:31 (NS Flush) 2 ml BID IV FLUSH 11/07/16 21:00 12/12/16 09:00 (Zofran Inj) 4 mg Q6H PRN IV 11/07/16 14:30 12/04/16 06:13 (Narcan Inj) 0.4 mg UNSCH PRN IV 11/07/16 14:30 (Tylenol) 650 mg Q4H PRN PO 11/08/16 08:15 (Tums Chew) 1,000 mg TID PRN CHEW 11/08/16 08:15 12/06/16 08:52 (Vasotec Inj) 1.25 mg Q6H PRN IV 11/08/16 08:15 (Catapres) 0.1 mg Q6H PRN PO 11/08/16 08:15 (Aspirin Chew) 81 mg DAILY CHEW 11/08/16 12:45 12/13/16 09:42 (Prinivil) 25 mg DAILY PO 11/08/16 12:45 Future Hold 11/18/16 09:59 (Nitrostat Sl) 0.4 mg Q6HR PRN SL 11/08/16 12:45 (Protonix) 40 mg DAILY PO 11/08/16 12:45 12/13/16 09:42 (Pravachol) 80 mg HS PO 11/08/16 21:00 12/12/16 21:50 (Pill Splitter) 1 ea UNSCH PRN OTHER 11/08/16 12:45 (Elke-Colace) 1 tab BID PO 11/08/16 12:45 12/13/16 09:42 (Vitamin B1) 100 mg DAILY PO 11/09/16 09:00 12/13/16 09:42 (Romazicon Inj) 0.2 mg Q1M PRN IV PUSH 11/08/16 13:00 (Haldol Inj) 2 mg Q15M PRN IM 11/08/16 13:00 (Neosporin Oint) 1 applic DAILY TOPICAL 11/10/16 09:00 12/09/16 08:20 (Milk Of Magnesia Liq) 30 ml HS PO 11/10/16 21:00 12/12/16 21:50 (Oscal-D 250-125) 250 mg TID PO 11/10/16 13:00 12/13/16 09:42 (Duoneb Neb) 1 ampule Q4HR NEB PRN NEB 11/12/16 13:15 (Ambien) 5 mg HS PRN PO 11/14/16 11:00 (Desyrel) 100 mg HS PO 11/14/16 21:00 12/12/16 21:50 (Neurontin) 600 mg TID PO 11/16/16 13:00 12/13/16 09:42 ([place] 10-325 Mg) 1 tab Q4H PRN PO 11/20/16 00:45 12/08/16 18:40 (Dilaudid Pf Inj) 1 mg Q4H PRN IV PUSH 11/20/16 00:45 12/13/16 02:22 (Compazine Inj) 10 mg Q8H PRN IV PUSH 11/25/16 16:15 11/25/16 18:00 (Milk Of Magnesia Liq) 30 ml Q12H PRN PO 11/28/16 11:30 11/29/16 12:43 (Senokot) 17.2 mg Q12H PRN PO 11/28/16 11:30 (Dulcolax Supp) 10 mg DAILY PRN RECTAL 11/28/16 11:30 12/11/16 12:30 ([place] 10-325 Mg) 1.5 tab Q4H PRN PO 11/28/16 15:00 12/13/16 06:54 (Mycostatin Cream) 1 applic Q6HR TOPICAL 11/28/16 14:00 12/10/16 05:00 (Flonase Jerzy Spr) 2 spray DAILY EACH NARE 12/01/16 11:00 12/15/16 10:59 12/11/16 08:26 (Folate) 1 mg DAILY PO 12/03/16 09:00 12/13/16 09:42 (Oramorph Sr) 30 mg Q8HR PO 12/03/16 14:00 12/13/16 05:34 (Lovenox Inj) 40 mg DAILY SQ 12/05/16 09:00 12/13/16 09:43 (Mag-Al Plus Susp Liq) 30 ml Q6HR PRN PO 12/04/16 18:00 12/06/16 08:52 (Carafate Liq) 1 gm QID PO 12/05/16 09:00 12/13/16 09:42 (Lactinex) 1 tab BID PO 12/05/16 21:00 12/13/16 09:42 Lactated Ringer's 1,000 ml @ 100 mls/hr Q10H IV 12/09/16 15:57 Cefazolin Sodium/ Dextrose 50 ml @ 100 mls/hr Q8H IV 12/09/16 20:00 12/16/16 19:59 12/13/16 02:22 (Dhaval Daniels Oint) 1 applic UNSCH PRN TOPICAL 12/11/16 15:30 12/12/16 17:51 (Inderal) 20 mg Q12HR PO 12/13/16 21:00 Urinary Catheter: No A/P Problem List: (1) Fracture of tibia, left, open ICD Code: S82.202B - Unspecified fracture of shaft of left tibia, initial encounter for open fracture type I or II Status: Acute (2) Fracture of tibia, right, open ICD Code: S82.201B - Unspecified fracture of shaft of right tibia, initial encounter for open fracture type I or II Status: Acute (3) Hypotension ICD Code: I95.9 - Hypotension, unspecified Status: Acute (4) Right shoulder pain ICD Code: M25.511 - Pain in right shoulder Assessment and Plan 61-year-old male admitted secondary to bilateral leg trauma after car fell on his legs while he was working on. Open fractures were present bilaterally. Hypotensive episodes: continues. Monitor as Propranolol has been increased. Essential tremor: clearly present. Propranolol increased 20 mg BID Right shoulder pain: improved with use of Dhaval-daniels.. Diarrhea -Improved -Patient does not appear septic. He is afebrile. Denies any N/V or abdominal pain. Good appetite. -D/C lactulose -Elke Colace on hold -continue Lactobacillus N/V Dyspepsia -Resolved -Continue PPI and Carafate Bilateral open tibia-fibula fractures Left tibial plateau fracture - Open fractures have been surgically repaired, right side has external fixation - Continue wound VAC left leg as per orthopedic surgery recommendations. s/ p wound vac change at bedside today. Ortho plans to take patient to the OR tomorrow for possible skin flap vs wound vac change. NPO after MN. - left tibial plateau treated nonoperatively - Pin care BID to right leg - NWB BLEs - Lortab dose when necessary, Oramorph 30mg every 8 hours and IV Dilaudid 1mg q4H prn breakthrough pain. - patient cleared by Ortho to resume Lovenox sq Acute blood loss anemia - Related to trauma vs post op blood loss - Status post transfusion of 2 units of packed red blood cells in 11/12/16. - on iron supplementation daily. Iron studies reviewed. - hemoglobin stable - monitor CBC as indicated Coronary artery disease with h/o previous CABG - Appears stable. Patient is asymptomatic. - Continue propranolol and statin - ASA 81mg daily - Clonidine PRN Hypertension - MARGIE inhibitor held due to hypotension. - Narcotics seem to have a depressive affect on this patient, however blood pressure has much improved after the patient was taken off IV morphine - BP 107/58. HR 57. Decrease dose of propranolol 10mg BID. Monitor. -Propranolol increased 20 mg BID. Monitor Diabetes mellitus type 2 - blood sugars well controlled - d/c ISS and accucheks Hyponatremia - mild - encourage fluids - monitor. repeat labs in few days.CBC -WNL Alcohol abuse Transaminitis, resolved - AST and ALT now within normal range. - Continue with daily thiamine and folic acid - Alcohol cessation recommended Tobacco abuse - Cessation recommended. Chronic essential tremor - Continue Propranolol at lower dose due to bradycardia with holding parameters, HR <55 -Decreased propranolol to 10 mg BID -Increased propranolol to 20 mg BID due to resumption of essential tremor () Leukocytosis - Likely reactive. ID consulted, appreciate recommendations. - Blood cultures show no growth in 5 days - Completed Cefazolin IV, stop date 12/01/16 - resolved Right shoulder pain (arthritis): -Dhaval daniels, apply PRN GI prophylaxis: PPI DVT prophylaxis: Lovenox sq Discussed with patient, nursing staff and Dr. Rios Problem Qualifiers (1) Fracture of tibia, left, open: (2) Fracture of tibia, right, open: (3) Hypotension: (4) Right shoulder pain: Qualified Codes: M25.511 - Pain in right shoulder; G89.29 - Other chronic pain Aurelio Patterson Jr. Dec 13, 2016 12:04
[2016-12-13 16:00] VITALS: BP 118/69; PULSE 62; RESP 18; TEMP 97.4; O2SAT 97
[2016-12-13 19:15] VITALS: BP 112/68; PULSE 67; RESP 18; TEMP 97.2; O2SAT 97
[2016-12-13] MEDS: traZODone HCL 100 MG TAB PO SCH (19:58)
[2016-12-13] MEDS: MAGNESIUM HYDROXIDE SUSP 30 ML CUP PO SCH (19:58)
[2016-12-13] MEDS: PRAVASTATIN SOD 80 MG TAB PO SCH (19:58)
[2016-12-13] MEDS ORDERED: PROPRANOLOL HCL 10 MG TAB PO SCH (21:00)
[2016-12-13 23:15] VITALS: BP 108/58; PULSE 61; RESP 17; TEMP 97; O2SAT 98
[2016-12-13] MEDS: ZOLPIDEM TARTRATE 5 MG TAB PO PRN (23:44)
[2016-12-14] MEDS: NYSTATIN 100,000 UNIT/GM CREAM 15 GM TOPICAL SCH ×5 (00:10→21:47)
[2016-12-14] MEDS: HYDROmorphone HCL PF 1 MG/ML VIAL IV PUSH PRN (02:33)
[2016-12-14] MEDS: ceFAZolin 2 GM PREMIX 50 ML IV SCH ×3 (02:34→19:52)
[2016-12-14] MEDS: LACTATED RINGER'S 1000 ML INJ 1,000 ML IV SCH ×2 (03:33→15:57)
[2016-12-14 04:50] VITALS: BP 119/67; PULSE 68; RESP 16; TEMP 97.3; O2SAT 96
[2016-12-14] MEDS: MORPHINE SULFATE 30 MG CONTROLLED RELEASE TAB PO SCH ×3 (05:36→21:47)
[2016-12-14] MEDS: ACETAMINOPHEN/HYDROcodone 325 MG/10 MG TAB PO PRN ×3 (05:36→17:42)
[2016-12-14 08:16] VITALS: BP 116/67; PULSE 67; RESP 17; TEMP 96.6; O2SAT 99
[2016-12-14] MEDS: PROPRANOLOL HCL 10 MG TAB PO SCH ×2 (08:17→19:52)
[2016-12-14] MEDS: FOLIC ACID 1 MG TAB PO SCH (08:17)
[2016-12-14] MEDS: SUCRALFATE 1 GM/10 ML CUP PO SCH ×4 (08:17→19:53)
[2016-12-14] MEDS: ASPIRIN 81 MG CHEW TAB CHEW SCH (08:17)
[2016-12-14] MEDS: CALCIUM/VITAMIN D 250 MG/125 U TAB PO SCH ×3 (08:17→17:41)
[2016-12-14] MEDS: ENOXAPARIN SODIUM 40 MG/0.4 ML SYRINGE SQ SCH (08:17)
[2016-12-14] MEDS: GABAPENTIN 300 MG CAP PO SCH ×3 (08:18→17:42)
[2016-12-14] MEDS: FLUTICASONE PROPIONATE 50 MCG/ACT 16 GM NASAL SPRAY EACH NARE SCH (08:18)
[2016-12-14] MEDS: LACTOBACILLUS ACIDOPHILUS TAB PO SCH ×2 (08:18→19:53)
[2016-12-14] MEDS: PANTOPRAZOLE SOD 40 MG DELAYED RELEASE TAB PO SCH (08:18)
[2016-12-14] MEDS: DOCUSATE SODIUM 50 MG/SENNA 8.6 MG TAB PO SCH ×2 (08:18→19:53)
[2016-12-14] MEDS: THIAMINE HCL 100 MG TAB PO SCH (08:18)
[2016-12-14] MEDS: SODIUM CHLORIDE 0.9% FLUSH 10 ML FLUSH IV FLUSH SCH ×2 (08:20→19:53)
[2016-12-14] MEDS: NEOMYCIN/POLYMYXIN/BACITRACIN OINT 15 GM TUBE TOPICAL SCH (08:20)
--- NOTE | 2016-12-14 14:00 | HHI.PR ---
Subjective Remarks Follow-up visit bilateral leg trauma, external fixator in place. Pt seen and examined. Pt stated his tremor was "there a bit when I got up this morning." However, with medication "it went away." Pt stated he could "keep my breakfast on the fork this morning." Pt reported right shoulder pain due was "gone" due to the use of the "Aleks Daniels." He denied any new issues. Pt denied fever, cough, shortness of breath, NVD, headache, light headedness, bloody urine or stool. Per RN (Nataliia) no acute issues over night or since start of shift. Objective Vitals Vital Signs Date Time Temp Pulse Resp B/P (MAP) Pulse Ox O2 Delivery O2 Flow Rate FiO2 12/14/16 08:16 96.6 67 17 116/67 (83) 99 12/14/16 04:50 97.3 68 16 119/67 (84) 96 12/13/16 23:15 97.0 61 17 108/58 (75) 98 12/13/16 19:15 97.2 67 18 112/68 (83) 97 12/13/16 16:00 97.4 62 18 118/69 (85) 97 I/O 12/13/16 12/13/16 12/13/16 12/14/16 12/14/16 12/14/16 07:00 15:00 23:00 07:00 15:00 23:00 Intake Total 960 ml 960 ml 480 ml 640 ml Output Total 5 ml 600 ml 465 ml Balance 960 ml 955 ml -120 ml 175 ml Intake Oral 960 ml 960 ml 480 ml 640 ml Output Urine Total 600 ml 450 ml Drainage Total 5 ml 0 ml 15 ml # Voids 2 7 # Bowel Movements 1 1 0 Result Diagram: 12/12/16 0732 12/12/16 0732 Objective Remarks GENERAL: Pt laying abed using urinal asked clinician to return "when I'm done". Upon return, pt had transitioned to his wheelchair away from the bed. SKIN: Warm and dry. HEAD: Normocephalic. EYES: No scleral icterus. No injection or drainage. NECK: Supple, trachea midline. No lymphadenopathy. CARDIOVASCULAR: Regular rate and rhythm without murmurs, gallops, or rubs. RESPIRATORY: Breath sounds equal bilaterally. No accessory muscle use. GASTROINTESTINAL: Abdomen soft, non-tender, nondistended. MUSCULOSKELETAL: No cyanosis, or edema. Right leg ORIF. Bilateral upper extremity tremor absent. PSYCHIATRIC: Alert and oriented x 3. No overt signs of depression/anxiety. Pleasant and cooperative. Procedures 1.s/p I&D with ex fix application bilateral tibias s/p wound vac application left tibia 2.With the assistance of RN, under sterile technique the avulsed skin of the right middle finger was clipped. No bleeding noted. Patient gave consent 3.Open reduction internal fixation of right distal tibia and fibula fractures Nonoperative treatment left tibial plateau fracture Irrigation and debridement of left tibia shaft fracture, removal external fixation, soleus muscle rotational flap, intramedullary nail fixation left tibia , application of wound VAC dressing 4.11/13 Irrigation and debridement of left tibia, application wound VAC dressing 5. 11/28 Irrigation and debridement of left open tibia fracture with application of wound VAC dressing 6. 12/01 wound vac change at the bedside 7. 12/05 wound vac change at the bedside 8. 12/08 wound vac change at the bedside Medications and IVs Current Medications Medications (Trade) Dose Ordered Sig/Milagro Route Start Time Stop Time Status Last Admin (NS Flush) 2 ml UNSCH PRN IV FLUSH 11/07/16 14:30 12/11/16 11:31 (NS Flush) 2 ml BID IV FLUSH 11/07/16 21:00 12/12/16 09:00 (Zofran Inj) 4 mg Q6H PRN IV 11/07/16 14:30 12/04/16 06:13 (Narcan Inj) 0.4 mg UNSCH PRN IV 11/07/16 14:30 (Tylenol) 650 mg Q4H PRN PO 11/08/16 08:15 (Tums Chew) 1,000 mg TID PRN CHEW 11/08/16 08:15 12/06/16 08:52 (Vasotec Inj) 1.25 mg Q6H PRN IV 11/08/16 08:15 (Catapres) 0.1 mg Q6H PRN PO 11/08/16 08:15 (Aspirin Chew) 81 mg DAILY CHEW 11/08/16 12:45 12/14/16 08:17 (Prinivil) 25 mg DAILY PO 11/08/16 12:45 Future Hold 11/18/16 09:59 (Nitrostat Sl) 0.4 mg Q6HR PRN SL 11/08/16 12:45 (Protonix) 40 mg DAILY PO 11/08/16 12:45 12/14/16 08:18 (Pravachol) 80 mg HS PO 11/08/16 21:00 12/13/16 19:58 (Pill Splitter) 1 ea UNSCH PRN OTHER 11/08/16 12:45 (Elke-Colace) 1 tab BID PO 11/08/16 12:45 12/14/16 08:18 (Vitamin B1) 100 mg DAILY PO 11/09/16 09:00 12/14/16 08:18 (Romazicon Inj) 0.2 mg Q1M PRN IV PUSH 11/08/16 13:00 (Haldol Inj) 2 mg Q15M PRN IM 11/08/16 13:00 (Neosporin Oint) 1 applic DAILY TOPICAL 11/10/16 09:00 12/09/16 08:20 (Milk Of Magnesia Liq) 30 ml HS PO 11/10/16 21:00 12/13/16 19:58 (Oscal-D 250-125) 250 mg TID PO 11/10/16 13:00 12/14/16 12:41 (Duoneb Neb) 1 ampule Q4HR NEB PRN NEB 11/12/16 13:15 (Ambien) 5 mg HS PRN PO 11/14/16 11:00 12/13/16 23:44 (Desyrel) 100 mg HS PO 11/14/16 21:00 12/13/16 19:58 (Neurontin) 600 mg TID PO 11/16/16 13:00 12/14/16 12:41 (Doyle 10-325 Mg) 1 tab Q4H PRN PO 11/20/16 00:45 12/08/16 18:40 (Dilaudid Pf Inj) 1 mg Q4H PRN IV PUSH 11/20/16 00:45 12/14/16 02:33 (Compazine Inj) 10 mg Q8H PRN IV PUSH 11/25/16 16:15 11/25/16 18:00 (Milk Of Magnesia Liq) 30 ml Q12H PRN PO 11/28/16 11:30 11/29/16 12:43 (Senokot) 17.2 mg Q12H PRN PO 11/28/16 11:30 (Dulcolax Supp) 10 mg DAILY PRN RECTAL 11/28/16 11:30 12/11/16 12:30 (Doyle 10-325 Mg) 1.5 tab Q4H PRN PO 11/28/16 15:00 12/14/16 12:42 (Mycostatin Cream) 1 applic Q6HR TOPICAL 11/28/16 14:00 12/10/16 05:00 (Flonase Jerzy Spr) 2 spray DAILY EACH NARE 12/01/16 11:00 12/15/16 10:59 12/14/16 08:18 (Folate) 1 mg DAILY PO 12/03/16 09:00 12/14/16 08:17 (Oramorph Sr) 30 mg Q8HR PO 12/03/16 14:00 12/14/16 05:36 (Lovenox Inj) 40 mg DAILY SQ 12/05/16 09:00 12/14/16 08:17 (Mag-Al Plus Susp Liq) 30 ml Q6HR PRN PO 12/04/16 18:00 12/06/16 08:52 (Carafate Liq) 1 gm QID PO 12/05/16 09:00 12/14/16 12:41 (Lactinex) 1 tab BID PO 12/05/16 21:00 12/14/16 08:18 Lactated Ringer's 1,000 ml @ 100 mls/hr Q10H IV 12/09/16 15:57 Cefazolin Sodium/ Dextrose 50 ml @ 100 mls/hr Q8H IV 12/09/16 20:00 12/16/16 19:59 12/14/16 12:41 (Aleks Daniels Oint) 1 applic UNSCH PRN TOPICAL 12/11/16 15:30 12/12/16 17:51 (Inderal) 10 mg Q12HR PO 12/13/16 21:00 12/14/16 08:17 Urinary Catheter: No A/P Problem List: (1) Fracture of tibia, left, open ICD Code: S82.202B - Unspecified fracture of shaft of left tibia, initial encounter for open fracture type I or II Status: Acute (2) Fracture of tibia, right, open ICD Code: S82.201B - Unspecified fracture of shaft of right tibia, initial encounter for open fracture type I or II Status: Acute (3) Hypotension ICD Code: I95.9 - Hypotension, unspecified Status: Acute (4) Right shoulder pain ICD Code: M25.511 - Pain in right shoulder Assessment and Plan 61-year-old male admitted secondary to bilateral leg trauma after car fell on his legs while he was working on. Open fractures were present bilaterally. Hypotensive episodes: continues 2 in past 24 hours. Essential tremor: Absent. Propranolol continues at 10 mg BID Right shoulder pain: absent this morning... Diarrhea -Improved -Patient does not appear septic. He is afebrile. Denies any N/V or abdominal pain. Good appetite. -D/C lactulose -Elke Colace on hold -continue Lactobacillus N/V Dyspepsia -Resolved -Continue PPI and Carafate Bilateral open tibia-fibula fractures Left tibial plateau fracture - Open fractures have been surgically repaired, right side has external fixation - Continue wound VAC left leg as per orthopedic surgery recommendations. s/ p wound vac change at bedside today. Ortho plans to take patient to the OR tomorrow for possible skin flap vs wound vac change. NPO after MN. - left tibial plateau treated nonoperatively - Pin care BID to right leg - NWB BLEs - Lortab dose when necessary, Oramorph 30mg every 8 hours and IV Dilaudid 1mg q4H prn breakthrough pain. - patient cleared by Ortho to resume Lovenox sq Acute blood loss anemia - Related to trauma vs post op blood loss - Status post transfusion of 2 units of packed red blood cells in 11/12/16. - on iron supplementation daily. Iron studies reviewed. - hemoglobin stable - monitor CBC as indicated Coronary artery disease with h/o previous CABG - Appears stable. Patient is asymptomatic. - Continue propranolol and statin - ASA 81mg daily - Clonidine PRN Hypertension - MARGIE inhibitor held due to hypotension. - Narcotics seem to have a depressive affect on this patient, however blood pressure has much improved after the patient was taken off IV morphine - BP 107/58. HR 57. Decrease dose of propranolol 10mg BID. Monitor. -Propranolol dosage was missed for one day. Continue dose at 10 mg BID. Monitor BP. Diabetes mellitus type 2 - blood sugars well controlled - d/c ISS and accucheks Hyponatremia - mild - encourage fluids - monitor. repeat labs in few days.CBC -WNL Alcohol abuse Transaminitis, resolved - AST and ALT now within normal range. - Continue with daily thiamine and folic acid - Alcohol cessation recommended Tobacco abuse - Cessation recommended. Chronic essential tremor - Continue Propranolol at lower dose due to bradycardia with holding parameters, HR <55 -Decreased propranolol to 10 mg BID -Propranolol continues at 10 mg BID Leukocytosis - Likely reactive. ID consulted, appreciate recommendations. - Blood cultures show no growth in 5 days - Completed Cefazolin IV, stop date 12/01/16 - resolved Right shoulder pain (arthritis): -Aleks daniels, apply PRN -pain improved/absent. GI prophylaxis: PPI DVT prophylaxis: Lovenox sq Discussed with patient, nursing staff and Dr. Rios Problem Qualifiers (1) Fracture of tibia, left, open: (2) Fracture of tibia, right, open: (3) Hypotension: (4) Right shoulder pain: Qualified Codes: M25.511 - Pain in right shoulder; G89.29 - Other chronic pain Aurelio Patterson Jr. Dec 14, 2016 14:00
[2016-12-14 16:00] VITALS: BP 117/62; PULSE 61; RESP 18; TEMP 95.9; O2SAT 100
[2016-12-14] MEDS: PRAVASTATIN SOD 80 MG TAB PO SCH (19:52)
[2016-12-14] MEDS: MAGNESIUM HYDROXIDE SUSP 30 ML CUP PO SCH (19:53)
[2016-12-14] MEDS: traZODone HCL 100 MG TAB PO SCH (19:53)
[2016-12-14 20:25] VITALS: BP 124/66; PULSE 57; RESP 17; TEMP 96.7; O2SAT 99
[2016-12-14 23:15] VITALS: BP 100/55; PULSE 77; RESP 16; TEMP 97; O2SAT 97
[2016-12-15] MEDS: ACETAMINOPHEN/HYDROcodone 325 MG/10 MG TAB PO PRN ×3 (01:52→17:01)
[2016-12-15] MEDS: HYDROmorphone HCL PF 1 MG/ML VIAL IV PUSH PRN ×4 (03:55→20:52)
[2016-12-15] MEDS: ceFAZolin 2 GM PREMIX 50 ML IV SCH ×3 (03:56→20:52)
[2016-12-15] MEDS: LACTATED RINGER'S 1000 ML INJ 1,000 ML IV SCH ×3 (04:13→21:57)
[2016-12-15 05:00] VITALS: BP 105/66; PULSE 62; RESP 17; TEMP 96.7; O2SAT 99
[2016-12-15] MEDS: NYSTATIN 100,000 UNIT/GM CREAM 15 GM TOPICAL SCH ×4 (05:33→23:46)
[2016-12-15] MEDS: MORPHINE SULFATE 30 MG CONTROLLED RELEASE TAB PO SCH ×3 (05:33→22:38)
[2016-12-15 08:00] VITALS: BP 110/62; PULSE 60; RESP 18; TEMP 97; O2SAT 100
[2016-12-15] MEDS: DOCUSATE SODIUM 50 MG/SENNA 8.6 MG TAB PO SCH ×2 (08:50→20:52)
[2016-12-15] MEDS: PROPRANOLOL HCL 10 MG TAB PO SCH ×2 (08:50→20:52)
[2016-12-15] MEDS: THIAMINE HCL 100 MG TAB PO SCH (08:50)
[2016-12-15] MEDS: ENOXAPARIN SODIUM 40 MG/0.4 ML SYRINGE SQ SCH (08:50)
[2016-12-15] MEDS: SUCRALFATE 1 GM/10 ML CUP PO SCH ×4 (08:51→20:52)
[2016-12-15] MEDS: FOLIC ACID 1 MG TAB PO SCH (08:51)
[2016-12-15] MEDS: PANTOPRAZOLE SOD 40 MG DELAYED RELEASE TAB PO SCH (08:51)
[2016-12-15] MEDS: LACTOBACILLUS ACIDOPHILUS TAB PO SCH ×2 (08:51→20:52)
[2016-12-15] MEDS: GABAPENTIN 300 MG CAP PO SCH ×3 (08:51→16:58)
[2016-12-15] MEDS: SODIUM CHLORIDE 0.9% FLUSH 10 ML FLUSH IV FLUSH SCH (08:51)
[2016-12-15] MEDS: ASPIRIN 81 MG CHEW TAB CHEW SCH (08:51)
[2016-12-15] MEDS: CALCIUM/VITAMIN D 250 MG/125 U TAB PO SCH ×3 (08:51→16:58)
[2016-12-15] MEDS: NEOMYCIN/POLYMYXIN/BACITRACIN OINT 15 GM TUBE TOPICAL SCH (08:54)
[2016-12-15] MEDS: FLUTICASONE PROPIONATE 50 MCG/ACT 16 GM NASAL SPRAY EACH NARE SCH (08:54)
--- NOTE | 2016-12-15 10:14 | HHI.PR ---
Subjective Remarks Follow-up visit bilateral leg trauma, external fixator in place. Pt seen and examined. Pt stated his tremor was "hardly there this morning." He stated he is eating without food shaking off utensils. No right shoulder pain reported this morning. Pt reported poor sleep waking at 0200 and "being up until about 4 AM before I went back to sleep." Pt stated he "couldn't go back to sleep after they came in here at two o'clock and woke me up." Pt noted abdomen is "black and blue from that blood thinner shot they keep giving me." He denied any new issues. Pt denied fever, cough, shortness of breath, NVD, headache, light headedness, bloody urine or stool. Per RN (Meri) no acute issues over night or since start of shift. She reported pt is to have wound vac change today at bedside. Objective Vitals Vital Signs Date Time Temp Pulse Resp B/P (MAP) Pulse Ox O2 Delivery O2 Flow Rate FiO2 12/15/16 08:00 97.0 60 18 110/62 (78) 100 12/15/16 07:35 Room Air 12/15/16 05:00 96.7 62 17 105/66 (79) 99 12/14/16 23:15 97.0 77 16 100/55 (70) 97 12/14/16 20:25 96.7 57 17 124/66 (85) 99 12/14/16 16:00 95.9 61 18 117/62 (80) 100 I/O 12/14/16 12/14/16 12/14/16 12/15/16 12/15/16 12/15/16 06:59 14:59 22:59 06:59 14:59 22:59 Intake Total 640 ml 1560 ml 720 ml Output Total 465 ml 0 ml 650 ml Balance 175 ml 1560 ml 70 ml Intake Oral 640 ml 1560 ml 720 ml Output Urine Total 450 ml 600 ml Drainage Total 15 ml 0 ml 50 ml # Voids 9 # Bowel Movements 0 1 0 Result Diagram: 12/12/16 0732 12/12/16 0732 Objective Remarks GENERAL: Pt laying abed resting. NAD SKIN: Warm and dry. HEAD: Normocephalic. EYES: No scleral icterus. No injection or drainage. NECK: Supple, trachea midline. No lymphadenopathy. CARDIOVASCULAR: Regular rate and rhythm without murmurs, gallops, or rubs. RESPIRATORY: Breath sounds equal bilaterally. No accessory muscle use. GASTROINTESTINAL: Abdomen soft, nondistended. Left lower quadrant tenderness elicited. MUSCULOSKELETAL: No cyanosis, or edema. Right leg ORIF. Bilateral upper extremity tremor again absent. PSYCHIATRIC: Alert and oriented x 3. No overt signs of depression/anxiety. Pleasant and cooperative. Procedures 1.s/p I&D with ex fix application bilateral tibias s/p wound vac application left tibia 2.With the assistance of RN, under sterile technique the avulsed skin of the right middle finger was clipped. No bleeding noted. Patient gave consent 3.Open reduction internal fixation of right distal tibia and fibula fractures Nonoperative treatment left tibial plateau fracture Irrigation and debridement of left tibia shaft fracture, removal external fixation, soleus muscle rotational flap, intramedullary nail fixation left tibia , application of wound VAC dressing 4.11/13 Irrigation and debridement of left tibia, application wound VAC dressing 5. 11/28 Irrigation and debridement of left open tibia fracture with application of wound VAC dressing 6. 12/01 wound vac change at the bedside 7. 12/05 wound vac change at the bedside 8. 12/08 wound vac change at the bedside Medications and IVs Current Medications Medications (Trade) Dose Ordered Sig/Milagro Route Start Time Stop Time Status Last Admin (NS Flush) 2 ml UNSCH PRN IV FLUSH 11/07/16 14:30 12/11/16 11:31 (NS Flush) 2 ml BID IV FLUSH 11/07/16 21:00 12/15/16 08:51 (Zofran Inj) 4 mg Q6H PRN IV 11/07/16 14:30 12/04/16 06:13 (Narcan Inj) 0.4 mg UNSCH PRN IV 11/07/16 14:30 (Tylenol) 650 mg Q4H PRN PO 11/08/16 08:15 (Tums Chew) 1,000 mg TID PRN CHEW 11/08/16 08:15 12/06/16 08:52 (Vasotec Inj) 1.25 mg Q6H PRN IV 11/08/16 08:15 (Catapres) 0.1 mg Q6H PRN PO 11/08/16 08:15 (Aspirin Chew) 81 mg DAILY CHEW 11/08/16 12:45 12/15/16 08:51 (Prinivil) 25 mg DAILY PO 11/08/16 12:45 Future Hold 11/18/16 09:59 (Nitrostat Sl) 0.4 mg Q6HR PRN SL 11/08/16 12:45 (Protonix) 40 mg DAILY PO 11/08/16 12:45 12/15/16 08:51 (Pravachol) 80 mg HS PO 11/08/16 21:00 12/14/16 19:52 (Pill Splitter) 1 ea UNSCH PRN OTHER 11/08/16 12:45 (Elke-Colace) 1 tab BID PO 11/08/16 12:45 12/15/16 08:50 (Vitamin B1) 100 mg DAILY PO 11/09/16 09:00 12/15/16 08:50 (Romazicon Inj) 0.2 mg Q1M PRN IV PUSH 11/08/16 13:00 (Haldol Inj) 2 mg Q15M PRN IM 11/08/16 13:00 (Neosporin Oint) 1 applic DAILY TOPICAL 11/10/16 09:00 12/09/16 08:20 (Milk Of Magnfidencio Liq) 30 ml HS PO 11/10/16 21:00 12/14/16 19:53 (Oscal-D 250-125) 250 mg TID PO 11/10/16 13:00 12/15/16 08:51 (Duoneb Neb) 1 ampule Q4HR NEB PRN NEB 11/12/16 13:15 (Ambien) 5 mg HS PRN PO 11/14/16 11:00 12/13/16 23:44 (Desyrel) 100 mg HS PO 11/14/16 21:00 12/14/16 19:53 (Neurontin) 600 mg TID PO 11/16/16 13:00 12/15/16 08:51 (Clive 10-325 Mg) 1 tab Q4H PRN PO 11/20/16 00:45 12/08/16 18:40 (Dilaudid Pf Inj) 1 mg Q4H PRN IV PUSH 11/20/16 00:45 12/15/16 08:50 (Compazine Inj) 10 mg Q8H PRN IV PUSH 11/25/16 16:15 11/25/16 18:00 (Milk Of Magnesia Liq) 30 ml Q12H PRN PO 11/28/16 11:30 11/29/16 12:43 (Senokot) 17.2 mg Q12H PRN PO 11/28/16 11:30 (Dulcolax Supp) 10 mg DAILY PRN RECTAL 11/28/16 11:30 12/11/16 12:30 (Clive 10-325 Mg) 1.5 tab Q4H PRN PO 11/28/16 15:00 12/15/16 01:52 (Mycostatin Cream) 1 applic Q6HR TOPICAL 11/28/16 14:00 12/10/16 05:00 (Flonase Jerzy Spr) 2 spray DAILY EACH NARE 12/01/16 11:00 12/15/16 10:59 12/15/16 08:54 (Folate) 1 mg DAILY PO 12/03/16 09:00 12/15/16 08:51 (Oramorph Sr) 30 mg Q8HR PO 12/03/16 14:00 12/15/16 05:33 (Lovenox Inj) 40 mg DAILY SQ 12/05/16 09:00 12/15/16 08:50 (Mag-Al Plus Susp Liq) 30 ml Q6HR PRN PO 12/04/16 18:00 12/06/16 08:52 (Carafate Liq) 1 gm QID PO 12/05/16 09:00 12/15/16 08:51 (Lactinex) 1 tab BID PO 12/05/16 21:00 12/15/16 08:51 Lactated Ringer's 1,000 ml @ 100 mls/hr Q10H IV 12/09/16 15:57 Cefazolin Sodium/ Dextrose 50 ml @ 100 mls/hr Q8H IV 12/09/16 20:00 12/16/16 19:59 12/15/16 03:56 (Aleks Adniels Oint) 1 applic UNSCH PRN TOPICAL 12/11/16 15:30 12/12/16 17:51 (Inderal) 10 mg Q12HR PO 12/13/16 21:00 12/15/16 08:50 Urinary Catheter: No A/P Problem List: (1) Fracture of tibia, left, open ICD Code: S82.202B - Unspecified fracture of shaft of left tibia, initial encounter for open fracture type I or II Status: Acute (2) Fracture of tibia, right, open ICD Code: S82.201B - Unspecified fracture of shaft of right tibia, initial encounter for open fracture type I or II Status: Acute (3) Hypotension ICD Code: I95.9 - Hypotension, unspecified Status: Acute (4) Right shoulder pain ICD Code: M25.511 - Pain in right shoulder Assessment and Plan 61-year-old male admitted secondary to bilateral leg trauma after car fell on his legs while he was working on. Open fractures were present bilaterally. Hypotensive episodes: 2 noted over past 24 hours. Asymptomatic. Essential tremor: Absent. Insomnia: monitor. Pt declined sleeping agents at this time. Abdominal discomfort associated with Lovenox injection. Noted. Pt compliant with regimen at this time. Diarrhea -Improved -Patient does not appear septic. He is afebrile. Denies any N/V or abdominal pain. Good appetite. -D/C lactulose -Elke Colace on hold -continue Lactobacillus N/V Dyspepsia -Resolved -Continue PPI and Carafate Bilateral open tibia-fibula fractures Left tibial plateau fracture - Open fractures have been surgically repaired, right side has external fixation - Continue wound VAC left leg as per orthopedic surgery recommendations. s/ p wound vac change at bedside today. Ortho plans to take patient to the OR tomorrow for possible skin flap vs wound vac change. NPO after MN. - left tibial plateau treated nonoperatively - Pin care BID to right leg - NWB BLEs - Lortab dose when necessary, Oramorph 30mg every 8 hours and IV Dilaudid 1mg q4H prn breakthrough pain. - patient cleared by Ortho to resume Lovenox sq Acute blood loss anemia - Related to trauma vs post op blood loss - Status post transfusion of 2 units of packed red blood cells in 11/12/16. - on iron supplementation daily. Iron studies reviewed. - hemoglobin stable - monitor CBC as indicated Coronary artery disease with h/o previous CABG - Appears stable. Patient is asymptomatic. - Continue propranolol and statin - ASA 81mg daily - Clonidine PRN Hypertension - MARGIE inhibitor held due to hypotension. - Narcotics seem to have a depressive affect on this patient, however blood pressure has much improved after the patient was taken off IV morphine - BP 107/58. HR 57. Decrease dose of propranolol 10mg BID. Monitor. -Propranolol dosage was missed for one day. Continue dose at 10 mg BID. Monitor BP. Diabetes mellitus type 2 - blood sugars well controlled - d/c ISS and accucheks Hyponatremia - mild - encourage fluids - monitor. repeat labs in few days.CBC -WNL Alcohol abuse Transaminitis, resolved - AST and ALT now within normal range. - Continue with daily thiamine and folic acid - Alcohol cessation recommended Tobacco abuse - Cessation recommended. Chronic essential tremor - Continue Propranolol at lower dose due to bradycardia with holding parameters, HR <55 -Decreased propranolol to 10 mg BID -Propranolol continues at 10 mg BID Leukocytosis - Likely reactive. ID consulted, appreciate recommendations. - Blood cultures show no growth in 5 days - Completed Cefazolin IV, stop date 12/01/16 - resolved Right shoulder pain (arthritis): -Aleks daniels, apply PRN -pain improved/absent. GI prophylaxis: PPI DVT prophylaxis: Lovenox sq Discussed with patient, nursing staff and Dr. Rios Problem Qualifiers (1) Fracture of tibia, left, open: (2) Fracture of tibia, right, open: (3) Hypotension: (4) Right shoulder pain: Qualified Codes: M25.511 - Pain in right shoulder; G89.29 - Other chronic pain Aurelio Patterson Jr. Dec 15, 2016 10:14
[2016-12-15 12:00] VITALS: BP 108/68; PULSE 55; RESP 18; TEMP 96.5; O2SAT 99
[2016-12-15] MEDS ORDERED: BACITRACIN TOP OINT 15 GM TUBE TOPICAL PRN (12:30)
[2016-12-15 16:00] VITALS: BP 98/63; PULSE 73; RESP 16; TEMP 97; O2SAT 100
[2016-12-15] MEDS: traZODone HCL 100 MG TAB PO SCH (20:52)
[2016-12-15] MEDS: PRAVASTATIN SOD 80 MG TAB PO SCH (20:52)
[2016-12-15] MEDS: MAGNESIUM HYDROXIDE SUSP 30 ML CUP PO SCH (20:52)
[2016-12-16] VITALS (7 sets, daily range): BP systolic 112–132; BP diastolic 59–70; PULSE 58–73; RESP 17–18; TEMP 95.8–98.7; O2SAT 97–99
[2016-12-16] MEDS: ACETAMINOPHEN/HYDROcodone 325 MG/10 MG TAB PO PRN ×3 (02:17→21:30)
[2016-12-16] MEDS: ceFAZolin 2 GM PREMIX 50 ML IV SCH ×2 (04:13→13:42)
[2016-12-16] MEDS: HYDROmorphone HCL PF 1 MG/ML VIAL IV PUSH PRN ×5 (04:13→18:48)
[2016-12-16] MEDS: SODIUM CHLORIDE 0.9% FLUSH 10 ML FLUSH IV FLUSH SCH ×3 (04:14→21:35)
[2016-12-16] MEDS: MORPHINE SULFATE 30 MG CONTROLLED RELEASE TAB PO SCH ×3 (06:06→21:30)
--- NOTE | 2016-12-16 06:35 | PD.ORT.PN ---
Subjective Subjective Remarks Pain controlled Doing well, rolling in wheelchair around the floor Objective Vitals Vital Signs Date Time Temp Pulse Resp B/P (MAP) Pulse Ox O2 Delivery O2 Flow Rate FiO2 12/16/16 00:00 96.5 66 17 120/70 (87) 98 12/15/16 16:00 97.0 73 16 98/63 (75) 100 12/15/16 12:00 96.5 55 18 108/68 (81) 99 12/15/16 08:00 97.0 60 18 110/62 (78) 100 12/15/16 07:35 Room Air I/O 12/15/16 12/15/16 12/15/16 12/16/16 12/16/16 12/16/16 07:00 15:00 23:00 07:00 15:00 23:00 Intake Total 720 ml 50 ml 480 ml Output Total 650 ml Balance 70 ml 50 ml 480 ml Intake Oral 720 ml 480 ml IV Total 50 ml Output Urine Total 600 ml Drainage Total 50 ml # Voids 3 # Bowel Movements 0 0 Result Diagram: 12/12/16 0732 12/12/16 0732 Imaging Last 24 hours Impressions Pelvis X-Ray 11/07/16 1355 Signed Impressions: Service Date/Time: Monday, November 07, 2016 13:34 - CONCLUSION: No acute disease. Behzad Finch Jr., MD Chest X-Ray 11/07/16 1355 Signed Impressions: Service Date/Time: Monday, November 07, 2016 13:34 - CONCLUSION: No acute disease. Jac Gonzales MD Objective Remarks In wheelchair RLE: Dressings clean and dry. intact. with full sensation and motor function. + exfix. pin sites. clean LLE: Wound VAC intact. Good seal. no sensation over medial foot. inability to dorsiflex or flex toes/foot. Clean dry dressings intact Assessment & Plan Assessment and Plan 1) Right Open Tibia Fracture s/p exfix revision with ORIF - POD #33 2) Left Open Tibia Fracture s/p Soleus muscle flap with IMN and removal of exfix - POD #33 3) left tibia plateau fracture treated nonoperatively 4) s/p vac change with collagen grafting - POD 5/ recent vac change day 1 -NWB BLE -pin care BID right leg -maintain vac left leg -vac settinmmHg, intermittent, 3:1 - will plan for vac change at bedside Thursday Materials needed: Extra large large wound VAC, romel Costello, 3 large Adaptic's Ronald Hatch Jr. Dec 16, 2016 06:35
[2016-12-16] MEDS: LACTATED RINGER'S 1000 ML INJ 1,000 ML IV SCH (07:57)
[2016-12-16] MEDS: CALCIUM/VITAMIN D 250 MG/125 U TAB PO SCH ×3 (08:16→18:06)
[2016-12-16] MEDS: PROPRANOLOL HCL 10 MG TAB PO SCH ×2 (08:16→21:29)
[2016-12-16] MEDS: PANTOPRAZOLE SOD 40 MG DELAYED RELEASE TAB PO SCH (08:16)
[2016-12-16] MEDS: ASPIRIN 81 MG CHEW TAB CHEW SCH (08:16)
[2016-12-16] MEDS: DOCUSATE SODIUM 50 MG/SENNA 8.6 MG TAB PO SCH ×2 (08:16→21:31)
[2016-12-16] MEDS: FOLIC ACID 1 MG TAB PO SCH (08:17)
[2016-12-16] MEDS: LACTOBACILLUS ACIDOPHILUS TAB PO SCH ×2 (08:17→21:29)
[2016-12-16] MEDS: SUCRALFATE 1 GM/10 ML CUP PO SCH ×3 (08:17→21:30)
[2016-12-16] MEDS: GABAPENTIN 300 MG CAP PO SCH ×3 (08:17→18:06)
[2016-12-16] MEDS: THIAMINE HCL 100 MG TAB PO SCH (08:17)
[2016-12-16] MEDS: ENOXAPARIN SODIUM 40 MG/0.4 ML SYRINGE SQ SCH (09:00)
[2016-12-16] MEDS: NEOMYCIN/POLYMYXIN/BACITRACIN OINT 15 GM TUBE TOPICAL SCH (09:00)
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
[2016-12-16] MEDS: PRAVASTATIN SOD 80 MG TAB PO SCH (21:29)
[2016-12-16] MEDS: traZODone HCL 100 MG TAB PO SCH (21:29)
[2016-12-16] MEDS: MAGNESIUM HYDROXIDE SUSP 30 ML CUP PO SCH (21:30)
[2016-12-17] MEDS: ACETAMINOPHEN/HYDROcodone 325 MG/10 MG TAB PO PRN ×5 (03:55→21:14)
[2016-12-17 04:00] VITALS: BP 125/72; PULSE 60; RESP 17; TEMP 96.8; O2SAT 99
[2016-12-17] MEDS: MORPHINE SULFATE 30 MG CONTROLLED RELEASE TAB PO SCH ×3 (05:55→21:14)
[2016-12-17 08:00] VITALS: BP 116/70; PULSE 56; RESP 17; TEMP 97; O2SAT 99
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
[2016-12-17] MEDS: FOLIC ACID 1 MG TAB PO SCH (08:20)
[2016-12-17] MEDS: THIAMINE HCL 100 MG TAB PO SCH (08:20)
[2016-12-17] MEDS: ENOXAPARIN SODIUM 40 MG/0.4 ML SYRINGE SQ SCH (08:20)
[2016-12-17] MEDS: PANTOPRAZOLE SOD 40 MG DELAYED RELEASE TAB PO SCH (08:20)
[2016-12-17] MEDS: CALCIUM/VITAMIN D 250 MG/125 U TAB PO SCH ×3 (08:21→17:16)
[2016-12-17] MEDS: PROPRANOLOL HCL 10 MG TAB PO SCH ×2 (08:21→21:12)
[2016-12-17] MEDS: GABAPENTIN 300 MG CAP PO SCH ×3 (08:21→17:16)
[2016-12-17] MEDS: DOCUSATE SODIUM 50 MG/SENNA 8.6 MG TAB PO SCH ×2 (08:21→21:13)
[2016-12-17] MEDS: ASPIRIN 81 MG CHEW TAB CHEW SCH (08:21)
[2016-12-17] MEDS: LACTOBACILLUS ACIDOPHILUS TAB PO SCH ×2 (08:21→21:13)
[2016-12-17] MEDS: SODIUM CHLORIDE 0.9% FLUSH 10 ML FLUSH IV FLUSH SCH ×2 (08:28→21:19)
[2016-12-17] MEDS: NEOMYCIN/POLYMYXIN/BACITRACIN OINT 15 GM TUBE TOPICAL SCH (09:00)
[2016-12-17] MEDS: HYDROmorphone HCL PF 1 MG/ML VIAL IV PUSH PRN (10:38)
[2016-12-17] MEDS: SUCRALFATE 1 GM/10 ML CUP PO SCH ×2 (10:39→21:14)
--- NOTE | 2016-12-17 11:06 | RADRPT ---
EXAM DATE/TIME: 12/17/2016 10:13 [facility] COMPARISON: No previous studies available for comparison. INDICATIONS : Left ankle pain, patient fell forward out of the wheelchair yesterday. MEDICAL HISTORY : None. SURGICAL HISTORY : ORIF left ankle ENCOUNTER: Subsequent ACUITY: 2 days PAIN SCORE: 8/10 LOCATION: Left ankle FINDINGS: Severely comminuted fracture of the fibula is noted. Intramedullary mariano is evident. Alignment is an atomic across the fibula. CONCLUSION: Intramedullary mariano in tibia. Severely comminuted fibular fracture. Arvind Flores MD FACR on December 17, 2016 at 11:04 Board Certified Radiologist. This report was verified electronically.
--- NOTE | 2016-12-17 11:07 | RADRPT ---
EXAM DATE/TIME: 12/17/2016 10:16 [facility] COMPARISON: ANKLE RIGHT COMPLETE ([id number]), November 24, 2016, 10:08. INDICATIONS : Right ankle pain, patient fell forward out of wheelchair yesterday. MEDICAL HISTORY : None. SURGICAL HISTORY : ORIF and ex-fix right ankle ENCOUNTER: Subsequent ACUITY: 1 day PAIN SCORE: 0/10 LOCATION: Right ankle FINDINGS: Anatomic alignment in the external fixer. Screws are seen bridging the tibial fracture as well as fi bular fracture. CONCLUSION: Anatomic alignment. Arvind Flores MD FACR on December 17, 2016 at 11:05 Board Certified Radiologist. This report was verified electronically.
[2016-12-17 12:00] VITALS: BP 98/64; PULSE 76; RESP 17; TEMP 98.4; O2SAT 96
[2016-12-17 16:00] VITALS: BP 129/68; PULSE 67; RESP 17; TEMP 96.4; O2SAT 98
[2016-12-17 20:15] VITALS: BP 117/68; PULSE 65; RESP 17; TEMP 96.7; O2SAT 97
[2016-12-17] MEDS: PRAVASTATIN SOD 80 MG TAB PO SCH (21:13)
[2016-12-17] MEDS: traZODone HCL 100 MG TAB PO SCH (21:13)
[2016-12-17] MEDS: MAGNESIUM HYDROXIDE SUSP 30 ML CUP PO SCH (21:13)
[2016-12-18] MEDS: ACETAMINOPHEN/HYDROcodone 325 MG/10 MG TAB PO PRN ×5 (01:35→20:26)
[2016-12-18 03:50] VITALS: BP 101/65; PULSE 72; RESP 18; TEMP 97.9; O2SAT 97
[2016-12-18] MEDS: MORPHINE SULFATE 30 MG CONTROLLED RELEASE TAB PO SCH ×3 (05:26→20:23)
[2016-12-18 08:00] VITALS: BP 125/66; PULSE 66; RESP 16; TEMP 96.6; O2SAT 97
[2016-12-18] MEDS: DOCUSATE SODIUM 50 MG/SENNA 8.6 MG TAB PO SCH (09:00)
[2016-12-18] MEDS: SODIUM CHLORIDE 0.9% FLUSH 10 ML FLUSH IV FLUSH SCH ×2 (09:00→20:24)
[2016-12-18] MEDS: NEOMYCIN/POLYMYXIN/BACITRACIN OINT 15 GM TUBE TOPICAL SCH (09:00)
[2016-12-18] MEDS: LACTOBACILLUS ACIDOPHILUS TAB PO SCH ×3 (09:36→20:23)
[2016-12-18] MEDS: SUCRALFATE 1 GM/10 ML CUP PO SCH ×2 (09:36→20:22)
[2016-12-18] MEDS: GABAPENTIN 300 MG CAP PO SCH ×3 (09:36→20:23)
[2016-12-18] MEDS: PROPRANOLOL HCL 10 MG TAB PO SCH ×2 (09:36→20:23)
[2016-12-18] MEDS: PANTOPRAZOLE SOD 40 MG DELAYED RELEASE TAB PO SCH (09:36)
[2016-12-18] MEDS: THIAMINE HCL 100 MG TAB PO SCH (09:36)
[2016-12-18] MEDS: FOLIC ACID 1 MG TAB PO SCH (09:37)
[2016-12-18] MEDS: ENOXAPARIN SODIUM 40 MG/0.4 ML SYRINGE SQ SCH (09:37)
[2016-12-18] MEDS: CALCIUM/VITAMIN D 250 MG/125 U TAB PO SCH ×3 (09:37→20:23)
[2016-12-18] MEDS: ASPIRIN 81 MG CHEW TAB CHEW SCH (09:37)
--- NOTE | 2016-12-18 10:47 | HHI.PR ---
Subjective Remarks Follow-up visit bilateral leg trauma, external fixator in place. Patient seen and examined today. Patient reports both ankles are back to his baseline pain. States he didn't sleep well due to waking up at 2am in severe pain. He is also complaining of abdominal pain from the Lovenox shots. He is requesting if he can have a pill instead. Patient reports 4 loose stools this morning, the last one being completely watery. Denies any blood in stools. Denies any fever , chills, nausea or vomiting. Patient also endorses right sided upper back pain /spasm. Denies any chest pain or shortness of breath. Discussed with nursing staff, patient lost IV access and is requesting replacement for IV Dilaudid. Objective Vitals Vital Signs Date Time Temp Pulse Resp B/P (MAP) Pulse Ox O2 Delivery O2 Flow Rate FiO2 12/18/16 03:50 97.9 72 18 101/65 (77) 97 12/18/16 02:18 18 12/17/16 20:15 96.7 65 17 117/68 (84) 97 12/17/16 16:00 96.4 67 17 129/68 (88) 98 12/17/16 12:00 98.4 76 17 98/64 (75) 96 I/O 12/17/16 12/17/16 12/17/16 12/18/16 12/18/16 12/18/16 07:00 15:00 23:00 07:00 15:00 23:00 Intake Total 1760 ml 720 ml 720 ml Output Total 2450 ml 1000 ml 25 ml Balance -690 ml -280 ml 695 ml Intake Oral 1760 ml 720 ml 720 ml Output Urine Total 2450 ml 1000 ml Drainage Total 25 ml # Voids 3 # Bowel Movements 0 0 2 Imaging Last Impressions Ankle X-Ray 12/17/16 0000 Signed Impressions: Service Date/Time: Saturday, December 17, 2016 10:13 - CONCLUSION: Intramedullary mariano in tibia. Severely comminuted fibular fracture. Arvind Flores MD FACR Gall Bladder Ultrasound 12/05/16 0000 Signed Impressions: Service Date/Time: Monday, December 05, 2016 08:38 - CONCLUSION: Unremarkable exam. Gallbladder is within normal limits with no evidence of cholelithiasis. Ronald Rao MD Abdomen X-Ray 12/04/16 0000 Signed Impressions: Service Date/Time: November 10:42 - CONCLUSION: Unremarkable bowel gas pattern. Ronald Rao MD Knee X-Ray 11/25/16 0000 Signed Impressions: Service Date/Time: Friday, November 25, 2016 06:44 - CONCLUSION: Post surgical changes are identified. Mumtaz Cornelius MD Tibia/Fibula X-Ray 11/24/16 0000 Signed Impressions: Service Date/Time: Thursday, November 24, 2016 10:06 - CONCLUSION: 1. Mildly displaced lateral tibial plateau fracture which is not clearly evident on the previous studies. 2. Otherwise stable left tibia status post ORIF. 3. Wound VAC remains in place. Dex Wild MD Chest X-Ray 11/20/16 0000 Signed Impressions: Service Date/Time: November 17:08 - CONCLUSION: 1. No acute abnormality or significant interval change. Sukhi Stevens MD Pelvis X-Ray 11/07/16 1355 Signed Impressions: Service Date/Time: Monday, November 07, 2016 13:34 - CONCLUSION: No acute disease. Behzad Finch Jr., MD Objective Remarks GENERAL: This is a well-nourished, well-developed patient, in no apparent distress. Sitting up in hospital bed. Awake and alert. Requesting pain medication. SKIN: Warm and dry. Wound VAC in place left lower extremity draining serosanguineous fluid. Dressing C/D/I. HEENT: Normocephalic. EOMI. Nose without bleeding. MMM. Airway patent. NECK: Trachea midline. Supple. CARDIOVASCULAR: Regular rate and rhythm without murmurs, gallops, or rubs. RESPIRATORY: Clear to auscultation. Breath sounds equal bilaterally. No wheezes , rales, or rhonchi. GASTROINTESTINAL: Abdomen soft, non-tender, nondistended. Bowel Sounds normoactive x4. MUSCULOSKELETAL: Extremities without clubbing, cyanosis. Right lower extremity with external fixation in place. Left lower leg with Raul wrap's, wound vac in place. Bilateral toes able to wiggle weakly. Pulses palpable. Edema noted in bilateral feet. NEUROLOGICAL: Awake and alert. Oriented to time, place, person. No focal neuro deficit. Non-tremulous. Moves all extremities. Decreased sensation to light touch tops of both feet. Normal speech. Procedures 1.s/p I&D with ex fix application bilateral tibias s/p wound vac application left tibia 2.With the assistance of RN, under sterile technique the avulsed skin of the right middle finger was clipped. No bleeding noted. Patient gave consent 3.Open reduction internal fixation of right distal tibia and fibula fractures Nonoperative treatment left tibial plateau fracture Irrigation and debridement of left tibia shaft fracture, removal external fixation, soleus muscle rotational flap, intramedullary nail fixation left tibia , application of wound VAC dressing 4.11/13 Irrigation and debridement of left tibia, application wound VAC dressing 5. 11/28 Irrigation and debridement of left open tibia fracture with application of wound VAC dressing 6. 12/01 wound vac change at the bedside 7. 12/05 wound vac change at the bedside 8. 12/08 wound vac change at the bedside 9. 12/09 I&D left tibia, application of wound VAC dressing and application of AlloMax allograft dermal matrix Medications and IVs Current Medications Medications (Trade) Dose Ordered Sig/Milagro Route Start Time Stop Time Status Last Admin (NS Flush) 2 ml UNSCH PRN IV FLUSH 11/07/16 14:30 12/11/16 11:31 (NS Flush) 2 ml BID IV FLUSH 11/07/16 21:00 12/17/16 21:19 (Zofran Inj) 4 mg Q6H PRN IV 11/07/16 14:30 12/04/16 06:13 (Narcan Inj) 0.4 mg UNSCH PRN IV 11/07/16 14:30 (Tylenol) 650 mg Q4H PRN PO 11/08/16 08:15 (Tums Chew) 1,000 mg TID PRN CHEW 11/08/16 08:15 12/06/16 08:52 (Vasotec Inj) 1.25 mg Q6H PRN IV 11/08/16 08:15 (Catapres) 0.1 mg Q6H PRN PO 11/08/16 08:15 (Aspirin Chew) 81 mg DAILY CHEW 11/08/16 12:45 12/18/16 09:37 (Prinivil) 25 mg DAILY PO 11/08/16 12:45 Future Hold 11/18/16 09:59 (Nitrostat Sl) 0.4 mg Q6HR PRN SL 11/08/16 12:45 (Protonix) 40 mg DAILY PO 11/08/16 12:45 12/18/16 09:36 (Pravachol) 80 mg HS PO 11/08/16 21:00 12/17/16 21:13 (Pill Splitter) 1 ea UNSCH PRN OTHER 11/08/16 12:45 (Elke-Colace) 1 tab BID PO 11/08/16 12:45 Future Hold 12/17/16 21:13 (Vitamin B1) 100 mg DAILY PO 11/09/16 09:00 12/18/16 09:36 (Romazicon Inj) 0.2 mg Q1M PRN IV PUSH 11/08/16 13:00 (Haldol Inj) 2 mg Q15M PRN IM 11/08/16 13:00 (Neosporin Oint) 1 applic DAILY TOPICAL 11/10/16 09:00 12/17/16 09:00 (Milk Of Magnesia Liq) 30 ml HS PO 11/10/16 21:00 Future Hold 12/17/16 21:13 (Oscal-D 250-125) 250 mg TID PO 11/10/16 13:00 12/18/16 09:37 (Duoneb Neb) 1 ampule Q4HR NEB PRN NEB 11/12/16 13:15 (Ambien) 5 mg HS PRN PO 11/14/16 11:00 12/13/16 23:44 (Desyrel) 100 mg HS PO 11/14/16 21:00 12/17/16 21:13 (Neurontin) 600 mg TID PO 11/16/16 13:00 12/18/16 09:36 ([place] 10-325 Mg) 1 tab Q4H PRN PO 11/20/16 00:45 12/18/16 01:35 (Dilaudid Pf Inj) 1 mg Q4H PRN IV PUSH 11/20/16 00:45 12/17/16 10:38 (Compazine Inj) 10 mg Q8H PRN IV PUSH 11/25/16 16:15 11/25/16 18:00 (Milk Of Magnesia Liq) 30 ml Q12H PRN PO 11/28/16 11:30 11/29/16 12:43 (Senokot) 17.2 mg Q12H PRN PO 11/28/16 11:30 (Dulcolax Supp) 10 mg DAILY PRN RECTAL 11/28/16 11:30 12/11/16 12:30 ([place] 10-325 Mg) 1.5 tab Q4H PRN PO 11/28/16 15:00 12/18/16 09:37 (Folate) 1 mg DAILY PO 12/03/16 09:00 12/18/16 09:37 (Oramorph Sr) 30 mg Q8HR PO 12/03/16 14:00 12/18/16 05:26 (Lovenox Inj) 40 mg DAILY SQ 12/05/16 09:00 12/18/16 09:37 (Mag-Al Plus Susp Liq) 30 ml Q6HR PRN PO 12/04/16 18:00 12/06/16 08:52 (Lactinex) 1 tab BID PO 12/05/16 21:00 12/18/16 09:36 (Aleks Daniels Oint) 1 applic UNSCH PRN TOPICAL 12/11/16 15:30 12/12/16 17:51 (Inderal) 10 mg Q12HR PO 12/13/16 21:00 12/18/16 09:36 (Baciguent Oint) 1 applic DAILY PRN TOPICAL 12/15/16 12:30 (Carafate Liq) 1 gm BID PO 12/16/16 21:00 12/30/16 20:59 12/18/16 09:36 (Lidoderm 5% Patch.12 Hr) 1 patch DAILY T-DERMAL 12/18/16 10:00 Miscellaneous Information 1 Q24H T-DERMAL 12/18/16 21:00 A/P Problem List: (1) Fracture of tibia, left, open ICD Code: S82.202B - Unspecified fracture of shaft of left tibia, initial encounter for open fracture type I or II Status: Acute (2) Fracture of tibia, right, open ICD Code: S82.201B - Unspecified fracture of shaft of right tibia, initial encounter for open fracture type I or II Status: Acute (3) Hypotension ICD Code: I95.9 - Hypotension, unspecified Status: Acute (4) Right shoulder pain ICD Code: M25.511 - Pain in right shoulder Assessment and Plan 61-year-old male admitted secondary to bilateral leg trauma after car fell on his legs while he was working on. Open fractures were present bilaterally. Diarrhea - loose stools x 4 this am - hold stool softeners/laxatives - C diff PCR ordered - patient is afebrile, no N/V - continue on Lactobacillus, increase to TID - monitor Bilateral open tibia-fibula fractures Left tibial plateau fracture - Open fractures have been surgically repaired, right side has external fixation - Continue wound VAC left leg as per orthopedic surgery recommendations. s/p repeat I&D left tibia, application of wound VAC dressing and application of AlloMax allograft dermal matrix. On Cefazolin stopped 12/16/16. Plan for wound vac change on Thursday at the bedside. - left tibial plateau fracture treated nonoperatively - Pin care BID to right leg - NWB BLEs - Lortab dose when necessary, Oramorph 30mg every 8 hours. D/C IV Dilaudid. - 12/17 patient reports increased bilateral ankle pain and swelling after he fell forward onto both ankles while leaning down to pick something up off the floor while in his wheelchair. Xrays bilateral ankles ordered and reviewed personally - previously implanted hardware appears to be in place/intact. Improving clinically. Will defer to Ortho team. Discussed with patient safety concerns regarding wheelchair use. Acute blood loss anemia - Related to trauma vs post op blood loss - Status post transfusion of 2 units of packed red blood cells in 11/12/16. - on iron supplementation daily. Iron studies reviewed. - hemoglobin stable - monitor CBC as indicated Coronary artery disease with h/o previous CABG - Appears stable. Patient is asymptomatic. - Continue propranolol and statin - ASA 81mg daily - Clonidine PRN Hypertension - controlled - RAUL inhibitor held due to hypotension. - Narcotics seem to have a depressive affect on this patient, however blood pressure has much improved after the patient was taken off IV morphine Diabetes mellitus type 2 - blood sugars well controlled Alcohol abuse Transaminitis, resolved - AST and ALT now within normal range. - Continue with daily thiamine and folic acid - Alcohol cessation recommended Tobacco abuse - Cessation recommended. Chronic essential tremor - Continue Propranolol at lower dose due to bradycardia with holding parameters, HR <55 GI prophylaxis: PPI DVT prophylaxis: Lovenox sq Discussed with patient, nursing staff and Dr. Gabriel Discharge Planning Pending Ortho clearance Problem Qualifiers (1) Fracture of tibia, left, open: (2) Fracture of tibia, right, open: (3) Hypotension: (4) Right shoulder pain: Qualified Codes: M25.511 - Pain in right shoulder; G89.29 - Other chronic pain Mary De Luna Dec 18, 2016 10:47
[2016-12-18] MEDS: LIDOCAINE HCL 5% PATCH T-DERMAL SCH (11:33)
[2016-12-18 12:00] VITALS: BP 127/67; PULSE 63; RESP 18; TEMP 97; O2SAT 98
[2016-12-18 16:00] VITALS: BP 101/60; PULSE 61; RESP 16; TEMP 97.6; O2SAT 98
[2016-12-18 19:00] VITALS: BP 105/60; PULSE 67; RESP 16; TEMP 96.9; O2SAT 99
[2016-12-18] MEDS: PRAVASTATIN SOD 80 MG TAB PO SCH (20:23)
[2016-12-18] MEDS: traZODone HCL 100 MG TAB PO SCH (20:23)
[2016-12-18] MEDS ORDERED: REMOVE OLD LIDOCAINE PATCH T-DERMAL SCH (21:00)
[2016-12-19] MEDS: ACETAMINOPHEN/HYDROcodone 325 MG/10 MG TAB PO PRN ×6 (00:32→21:46)
[2016-12-19 04:00] VITALS: BP 105/60; PULSE 69; RESP 16; TEMP 97.3; O2SAT 99
[2016-12-19] MEDS: MORPHINE SULFATE 30 MG CONTROLLED RELEASE TAB PO SCH ×3 (05:06→21:47)
[2016-12-19 08:00] VITALS: BP 115/69; PULSE 62; RESP 18; TEMP 98; O2SAT 98
--- NOTE | 2016-12-19 08:00 | PD.ORT.PN ---
Subjective Subjective Remarks s/p left tibia IMN and right tibia ORIF with exfix s/p left tibia soleus flap s/p left tibial plateau fracture doing well. pain controlled. ambulating with wheelchair Objective Vitals Vital Signs Date Time Temp Pulse Resp B/P (MAP) Pulse Ox O2 Delivery O2 Flow Rate FiO2 12/19/16 04:00 97.3 69 16 105/60 (75) 99 12/18/16 19:00 96.9 67 16 105/60 (75) 99 12/18/16 16:00 97.6 61 16 101/60 (74) 98 12/18/16 12:00 97.0 63 18 127/67 (87) 98 12/18/16 08:00 96.6 66 16 125/66 (85) 97 I/O 12/18/16 12/18/16 12/18/16 12/19/16 12/19/16 12/19/16 07:00 15:00 23:00 07:00 15:00 23:00 Intake Total 720 ml 700 ml 480 ml 240 ml Output Total 25 ml 900 ml 250 ml 0 ml Balance 695 ml -200 ml 230 ml 240 ml Intake Oral 720 ml 700 ml 480 ml 240 ml Output Urine Total 900 ml 200 ml Drainage Total 25 ml 50 ml 0 ml # Voids 3 1 3 3 # Bowel Movements 2 4 0 0 Imaging Last 24 hours Impressions Pelvis X-Ray 11/07/16 1355 Signed Impressions: Service Date/Time: Monday, November 07, 2016 13:34 - CONCLUSION: No acute disease. Behzad Finch Jr., MD Chest X-Ray 11/07/16 1355 Signed Impressions: Service Date/Time: Monday, November 07, 2016 13:34 - CONCLUSION: No acute disease. Jac Gonzales MD Objective Remarks In wheelchair RLE: Dressings clean and dry. intact. with full sensation and motor function. + exfix. pin sites. clean LLE: Wound VAC intact. Good seal. no sensation over medial foot. slight stiffness with dorsiflexion. graft healing. +granulation tissue Assessment & Plan Assessment and Plan 1) Right Open Tibia Fracture s/p exfix revision with ORIF 2) Left Open Tibia Fracture s/p Soleus muscle flap with IMN and removal of exfix 3) left tibia plateau fracture treated nonoperatively 4) s/p vac change with collagen grafting - POD 6 / vac change today -NWB BLE -pin care BID right leg -maintain vac left leg -vac settinmmHg, intermittent, 3:1 - will plan for vac change at bedside thursday/thursday Materials needed: Extra large large wound VAC, romel Costello, 3 large Adaptic's Jef Steve Dec 19, 2016 08:00
[2016-12-19] MEDS: NEOMYCIN/POLYMYXIN/BACITRACIN OINT 15 GM TUBE TOPICAL SCH (09:00)
[2016-12-19] MEDS: SODIUM CHLORIDE 0.9% FLUSH 10 ML FLUSH IV FLUSH SCH ×2 (09:00→21:54)
[2016-12-19] MEDS: SUCRALFATE 1 GM/10 ML CUP PO SCH ×2 (09:29→21:47)
[2016-12-19] MEDS: ASPIRIN 81 MG CHEW TAB CHEW SCH (09:30)
[2016-12-19] MEDS: FOLIC ACID 1 MG TAB PO SCH (09:30)
[2016-12-19] MEDS: PANTOPRAZOLE SOD 40 MG DELAYED RELEASE TAB PO SCH (09:30)
[2016-12-19] MEDS: GABAPENTIN 300 MG CAP PO SCH ×3 (09:30→17:43)
[2016-12-19] MEDS: LACTOBACILLUS ACIDOPHILUS TAB PO SCH ×3 (09:30→17:43)
[2016-12-19] MEDS: PROPRANOLOL HCL 10 MG TAB PO SCH ×2 (09:30→21:47)
[2016-12-19] MEDS: THIAMINE HCL 100 MG TAB PO SCH (09:30)
[2016-12-19] MEDS: LIDOCAINE HCL 5% PATCH T-DERMAL SCH ×2 (09:31→21:45)
[2016-12-19] MEDS: CALCIUM/VITAMIN D 250 MG/125 U TAB PO SCH ×3 (09:31→17:43)
[2016-12-19] MEDS: ENOXAPARIN SODIUM 40 MG/0.4 ML SYRINGE SQ SCH (09:32)
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
[2016-12-19 12:00] VITALS: BP 113/66; PULSE 71; RESP 18; TEMP 95.7; O2SAT 94
[2016-12-19 20:30] VITALS: BP 125/75; PULSE 70; RESP 18; TEMP 96.8; O2SAT 100
[2016-12-19] MEDS: PRAVASTATIN SOD 80 MG TAB PO SCH (21:46)
[2016-12-19] MEDS: traZODone HCL 100 MG TAB PO SCH (21:46)
[2016-12-20 00:26] VITALS: BP 118/73; PULSE 65; RESP 18; TEMP 97; O2SAT 98
[2016-12-20] MEDS: ACETAMINOPHEN/HYDROcodone 325 MG/10 MG TAB PO PRN ×5 (03:51→20:45)
[2016-12-20] MEDS: MORPHINE SULFATE 30 MG CONTROLLED RELEASE TAB PO SCH ×3 (05:14→23:12)
--- NOTE | 2016-12-20 06:57 | PD.ORT.PN ---
Subjective Subjective Remarks Pain controlled Doing well Objective Vitals Vital Signs Date Time Temp Pulse Resp B/P (MAP) Pulse Ox O2 Delivery O2 Flow Rate FiO2 12/20/16 00:26 97.0 65 18 118/73 (88) 98 12/19/16 20:30 96.8 70 18 125/75 (92) 100 12/19/16 12:00 95.7 71 18 113/66 (82) 94 12/19/16 08:00 98.0 62 18 115/69 (84) 98 I/O 12/19/16 12/19/16 12/19/16 12/20/16 12/20/16 12/20/16 07:00 15:00 23:00 07:00 15:00 23:00 Intake Total 240 ml 800 ml 480 ml Output Total 0 ml 1200 ml 0 ml Balance 240 ml -400 ml 480 ml Intake Oral 240 ml 800 ml 480 ml Output Urine Total 1200 ml Drainage Total 0 ml 0 ml 0 ml # Voids 3 5 # Bowel Movements 0 1 0 Imaging Last 24 hours Impressions Pelvis X-Ray 11/07/16 [id number] Signed Impressions: Service Date/Time: Monday, November 07, 2016 13:34 - CONCLUSION: No acute disease. Behzad Finch Jr., MD Chest X-Ray 11/07/16 1359 Signed Impressions: Service Date/Time: Monday, November 07, 2016 13:34 - CONCLUSION: No acute disease. Jac Gonzales MD Objective Remarks RLE: Dressings clean and dry. intact. with full sensation and motor function. + exfix. pin sites. clean LLE: Wound VAC intact. Good seal. no sensation over medial foot. slight stiffness with dorsiflexion. graft healing. +granulation tissue. CKS Assessment & Plan Assessment and Plan 1) Right Open Tibia Fracture s/p exfix revision with ORIF 2) Left Open Tibia Fracture s/p Soleus muscle flap with IMN and removal of exfix 3) left tibia plateau fracture treated nonoperatively 4) s/p vac change with collagen grafting - POD 7 / vac change today -NWB BLE -pin care BID right leg -maintain vac left leg -vac settinmmHg, intermittent, 3:1 - will plan for vac change at bedside thursday/thursday Materials needed: Extra large large wound VAC, Ioban, bacitracin, 3 large Adaptic's Ronald Hatch Jr. MADIHA Dec 20, 2016 06:57
[2016-12-20 08:17] VITALS: BP 114/67; PULSE 66; RESP 17; TEMP 97.9; O2SAT 98
[2016-12-20] MEDS: PANTOPRAZOLE SOD 40 MG DELAYED RELEASE TAB PO SCH (08:21)
[2016-12-20] MEDS: CALCIUM/VITAMIN D 250 MG/125 U TAB PO SCH ×3 (08:21→17:32)
[2016-12-20] MEDS: PROPRANOLOL HCL 10 MG TAB PO SCH ×2 (08:21→20:41)
[2016-12-20] MEDS: THIAMINE HCL 100 MG TAB PO SCH (08:21)
[2016-12-20] MEDS: FOLIC ACID 1 MG TAB PO SCH (08:22)
[2016-12-20] MEDS: ASPIRIN 81 MG CHEW TAB CHEW SCH (08:22)
[2016-12-20] MEDS: SUCRALFATE 1 GM/10 ML CUP PO SCH ×2 (08:22→20:41)
[2016-12-20] MEDS: LACTOBACILLUS ACIDOPHILUS TAB PO SCH ×3 (08:22→17:32)
[2016-12-20] MEDS: GABAPENTIN 300 MG CAP PO SCH ×3 (08:22→17:32)
[2016-12-20] MEDS: ENOXAPARIN SODIUM 40 MG/0.4 ML SYRINGE SQ SCH (08:23)
[2016-12-20] MEDS: SODIUM CHLORIDE 0.9% FLUSH 10 ML FLUSH IV FLUSH SCH ×2 (08:24→20:41)
[2016-12-20] MEDS: REMOVE OLD LIDOCAINE PATCH T-DERMAL SCH (08:25)
[2016-12-20] MEDS: NEOMYCIN/POLYMYXIN/BACITRACIN OINT 15 GM TUBE TOPICAL SCH (08:25)
[2016-12-20 09:10] LABS: AUTOMATED NEUTROPHIL # 7.4 TH/MM3 (1.8-7.7); BASOPHIL % 0.4 % (0.0-2.0); EOSINOPHIL # 0.1 TH/MM3 (0-0.4); EOSINOPHIL % 1.2 % (0.0-4.0); HEMO FLAGS DIFF FINAL; LYMPH % 16.4 % (9.0-44.0); LYMPHOCYTE # 1.7 TH/MM3 (1.0-4.8); MEAN CELL VOLUME 93.4 FL (80.0-100.0); MEAN CORPUSCULAR HEMOGLOBIN 31.1 PG (27.0-34.0); MEAN CORPUSCULAR HGB CONC 33.3 % (32.0-36.0); PLATELET COUNT 211 TH/MM3 (150-450); RED BLOOD COUNT 3.64 MIL/MM3 (4.50-5.90); RED CELL DISTRIBUTION WIDTH 13.6 % (11.6-17.2); WHITE BLOOD COUNT 10.4 TH/MM3 (4.0-11.0)
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
[2016-12-20 09:38] LABS: BICARBONATE 28.7 MEQ/L (21.0-32.0)
[2016-12-20 11:25] VITALS: BP 109/63; PULSE 63; RESP 17; TEMP 97.3; O2SAT 100
[2016-12-20 16:30] VITALS: BP 114/66; PULSE 72; RESP 17; TEMP 97.4; O2SAT 98
[2016-12-20 20:20] VITALS: BP 140/69; PULSE 71; RESP 18; TEMP 96.2; O2SAT 98
[2016-12-20] MEDS: LIDOCAINE HCL 5% PATCH T-DERMAL SCH (20:40)
[2016-12-20] MEDS: traZODone HCL 100 MG TAB PO SCH (20:41)
[2016-12-20] MEDS: PRAVASTATIN SOD 80 MG TAB PO SCH (20:41)
[2016-12-21 00:09] VITALS: BP 113/69; PULSE 67; RESP 18; TEMP 96.9; O2SAT 96
[2016-12-21] MEDS: ACETAMINOPHEN/HYDROcodone 325 MG/10 MG TAB PO PRN ×5 (03:23→22:58)
[2016-12-21] MEDS: MORPHINE SULFATE 30 MG CONTROLLED RELEASE TAB PO SCH ×3 (06:03→21:04)
[2016-12-21 08:00] VITALS: BP 121/70; PULSE 73; RESP 18; TEMP 96.1; O2SAT 100
[2016-12-21] MEDS: LACTOBACILLUS ACIDOPHILUS TAB PO SCH ×3 (08:01→18:21)
[2016-12-21] MEDS: SUCRALFATE 1 GM/10 ML CUP PO SCH ×2 (08:01→21:04)
[2016-12-21] MEDS: PANTOPRAZOLE SOD 40 MG DELAYED RELEASE TAB PO SCH (08:01)
[2016-12-21] MEDS: ASPIRIN 81 MG CHEW TAB CHEW SCH (08:01)
[2016-12-21] MEDS: PROPRANOLOL HCL 10 MG TAB PO SCH ×2 (08:01→21:04)
[2016-12-21] MEDS: THIAMINE HCL 100 MG TAB PO SCH (08:01)
[2016-12-21] MEDS: CALCIUM/VITAMIN D 250 MG/125 U TAB PO SCH ×3 (08:01→18:21)
[2016-12-21] MEDS: FOLIC ACID 1 MG TAB PO SCH (08:01)
[2016-12-21] MEDS: GABAPENTIN 300 MG CAP PO SCH ×3 (08:02→18:21)
[2016-12-21] MEDS: ENOXAPARIN SODIUM 40 MG/0.4 ML SYRINGE SQ SCH (08:02)
[2016-12-21] MEDS: SODIUM CHLORIDE 0.9% FLUSH 10 ML FLUSH IV FLUSH SCH ×2 (08:02→21:00)
[2016-12-21] MEDS: NEOMYCIN/POLYMYXIN/BACITRACIN OINT 15 GM TUBE TOPICAL SCH (08:03)
[2016-12-21] MEDS: REMOVE OLD LIDOCAINE PATCH T-DERMAL SCH (08:03)
--- NOTE | 2016-12-21 09:33 | HHI.PR ---
Subjective Remarks No acute events overnight. Afebrile, vital signs stable. Patient states his diarrhea has resolved and he is now constipated. Is wheeling around the floor in a wheelchair. Appears very comfortable. Objective Vitals Vital Signs Date Time Temp Pulse Resp B/P (MAP) Pulse Ox O2 Delivery O2 Flow Rate FiO2 12/21/16 08:00 96.1 73 18 121/70 (87) 100 12/21/16 00:09 96.9 67 18 113/69 (84) 96 12/20/16 20:20 96.2 71 18 140/69 (92) 98 12/20/16 20:00 98 Room Air 12/20/16 16:30 97.4 72 17 114/66 (82) 98 12/20/16 11:25 97.3 63 17 109/63 (78) 100 I/O 12/20/16 12/20/16 12/20/16 12/21/16 12/21/16 12/21/16 07:00 15:00 23:00 07:00 15:00 23:00 Intake Total 480 ml 1200 ml 360 ml 480 ml Output Total 100 ml 0 ml 1200 ml Balance 380 ml 1200 ml 360 ml -720 ml Intake Oral 480 ml 1200 ml 360 ml 480 ml Output Urine Total 100 ml 1200 ml Drainage Total 0 ml 0 ml # Voids 3 5 3 # Bowel Movements 1 1 0 1 Result Diagram: 12/20/16 0811 12/20/16 0811 Objective Remarks GENERAL: This is a well-nourished, well-developed patient, in no apparent distress. Awake and alert. Requesting pain medication. SKIN: Warm and dry. Wound VAC in place left lower extremity draining serosanguineous fluid. Dressing C/D/I. HEENT: Normocephalic. EOMI. Nose without bleeding. MMM. Airway patent. NECK: Trachea midline. Supple. CARDIOVASCULAR: Regular rate and rhythm without murmurs, gallops, or rubs. RESPIRATORY: Clear to auscultation. Breath sounds equal bilaterally. No wheezes , rales, or rhonchi. GASTROINTESTINAL: Abdomen soft, non-tender, nondistended. Bowel Sounds normoactive x4. MUSCULOSKELETAL: Extremities without clubbing, cyanosis. Right lower extremity with external fixation in place. Left lower leg with Raul wrap's, wound vac in place. Bilateral toes able to wiggle weakly. Pulses palpable. NEUROLOGICAL: Awake and alert. Oriented to time, place, person. No focal neuro deficit. Non-tremulous. Moves all extremities. Decreased sensation to light touch tops of both feet. Normal speech. Procedures 1.s/p I&D with ex fix application bilateral tibias s/p wound vac application left tibia 2.With the assistance of RN, under sterile technique the avulsed skin of the right middle finger was clipped. No bleeding noted. Patient gave consent 3.Open reduction internal fixation of right distal tibia and fibula fractures Nonoperative treatment left tibial plateau fracture Irrigation and debridement of left tibia shaft fracture, removal external fixation, soleus muscle rotational flap, intramedullary nail fixation left tibia , application of wound VAC dressing 4.7 Irrigation and debridement of left tibia, application wound VAC dressing 5. 8 Irrigation and debridement of left open tibia fracture with application of wound VAC dressing 6. 8 wound vac change at the bedside 7. 8 wound vac change at the bedside 8. 8 wound vac change at the bedside 9. 8 I&D left tibia, application of wound VAC dressing and application of AlloMax allograft dermal matrix A/P Problem List: (1) Fracture of tibia, left, open ICD Code: S82.202B - Unspecified fracture of shaft of left tibia, initial encounter for open fracture type I or II Status: Acute (2) Fracture of tibia, right, open ICD Code: S82.201B - Unspecified fracture of shaft of right tibia, initial encounter for open fracture type I or II Status: Acute (3) Hypotension ICD Code: I95.9 - Hypotension, unspecified Status: Acute (4) Right shoulder pain ICD Code: M25.511 - Pain in right shoulder Assessment and Plan 61-year-old male admitted secondary to bilateral leg trauma after car fell on his legs while he was working on. Open fractures were present bilaterally. Constipation - Patient's diarrhea has resolved, no sample was able to be collected for C. difficile - Stool softeners resumed Bilateral open tibia-fibula fractures Left tibial plateau fracture - Follow-up visit bilateral leg trauma, external fixator in place. Patient seen and examined today. as we know he has diagnosis of Right Open Tibia Fracture status post External fixation revision with ORIF, Left Open Tibia Fracture status post Soleus Muscle flap with intramedullary nail removal of external fixation, left tibia plateau fracture non operatively, Status post Vac change with collagen grafting POD #7. vacuum changed yesterday, No weight bearing Acute blood loss anemia - Related to trauma vs post op blood loss - Status post transfusion of 2 units of packed red blood cells in 11/12/16. - on iron supplementation daily. Iron studies reviewed. - hemoglobin stable - monitor CBC as indicated Coronary artery disease with h/o previous CABG - Appears stable. Patient is asymptomatic. - Continue propranolol and statin - ASA 81mg daily - Clonidine PRN Hypertension - controlled - RAUL inhibitor held due to hypotension. - Narcotics seem to have a depressive affect on this patient, however blood pressure has much improved after the patient was taken off IV morphine Diabetes mellitus type 2 - blood sugars well controlled Alcohol abuse Transaminitis, resolved - AST and ALT now within normal range. - Continue with daily thiamine and folic acid - Alcohol cessation recommended Tobacco abuse - Cessation recommended. Chronic essential tremor - Continue Propranolol at lower dose due to bradycardia with holding parameters, HR <55 GI prophylaxis: PPI DVT prophylaxis: Lovenox sq Discharge Planning Pending clearance by orthopedic surgery Problem Qualifiers (1) Fracture of tibia, left, open: (2) Fracture of tibia, right, open: (3) Hypotension: (4) Right shoulder pain: Qualified Codes: M25.511 - Pain in right shoulder; G89.29 - Other chronic pain Kim Becker MD R3 Dec 21, 2016 09:33
[2016-12-21 12:00] VITALS: BP 131/74; PULSE 59; RESP 18; TEMP 96.1; O2SAT 98
[2016-12-21] MEDS: MAGNESIUM HYDROXIDE SUSP 30 ML CUP PO SCH (12:08)
[2016-12-21 16:00] VITALS: BP 113/74; PULSE 62; RESP 18; TEMP 95.7; O2SAT 100
[2016-12-21 20:31] VITALS: BP 137/71; PULSE 63; RESP 18; TEMP 98.6; O2SAT 96
[2016-12-21] MEDS: DOCUSATE SODIUM 50 MG/SENNA 8.6 MG TAB PO SCH (21:04)
[2016-12-21] MEDS: PRAVASTATIN SOD 80 MG TAB PO SCH (21:04)
[2016-12-21] MEDS: traZODone HCL 100 MG TAB PO SCH (21:04)
[2016-12-21] MEDS: LIDOCAINE HCL 5% PATCH T-DERMAL SCH (21:09)
[2016-12-22 00:30] VITALS: BP 106/69; PULSE 65; RESP 18; TEMP 98.2; O2SAT 96
[2016-12-22] MEDS: MORPHINE SULFATE 30 MG CONTROLLED RELEASE TAB PO SCH ×3 (05:36→23:04)
[2016-12-22] MEDS: ACETAMINOPHEN/HYDROcodone 325 MG/10 MG TAB PO PRN ×4 (07:40→20:46)
[2016-12-22 08:00] VITALS: BP 127/72; PULSE 72; RESP 18; TEMP 96.5; O2SAT 99
[2016-12-22] MEDS: SODIUM CHLORIDE 0.9% FLUSH 10 ML FLUSH IV FLUSH SCH ×2 (09:00→20:45)
[2016-12-22] MEDS: NEOMYCIN/POLYMYXIN/BACITRACIN OINT 15 GM TUBE TOPICAL SCH (09:00)
[2016-12-22] MEDS: PROPRANOLOL HCL 10 MG TAB PO SCH ×2 (09:32→20:45)
[2016-12-22] MEDS: CALCIUM/VITAMIN D 250 MG/125 U TAB PO SCH ×3 (09:32→17:07)
[2016-12-22] MEDS: GABAPENTIN 300 MG CAP PO SCH ×3 (09:32→17:07)
[2016-12-22] MEDS: SUCRALFATE 1 GM/10 ML CUP PO SCH ×2 (09:32→20:45)
[2016-12-22] MEDS: DOCUSATE SODIUM 50 MG/SENNA 8.6 MG TAB PO SCH ×2 (09:32→20:45)
[2016-12-22] MEDS: THIAMINE HCL 100 MG TAB PO SCH (09:32)
[2016-12-22] MEDS: FOLIC ACID 1 MG TAB PO SCH (09:32)
[2016-12-22] MEDS: PANTOPRAZOLE SOD 40 MG DELAYED RELEASE TAB PO SCH (09:32)
[2016-12-22] MEDS: LACTOBACILLUS ACIDOPHILUS TAB PO SCH ×3 (09:32→17:07)
[2016-12-22] MEDS: ASPIRIN 81 MG CHEW TAB CHEW SCH (09:32)
[2016-12-22] MEDS: ENOXAPARIN SODIUM 40 MG/0.4 ML SYRINGE SQ SCH (09:33)
[2016-12-22] MEDS: REMOVE OLD LIDOCAINE PATCH T-DERMAL SCH (09:34)
[2016-12-22 12:00] VITALS: BP 101/65; PULSE 72; RESP 18; TEMP 96.7; O2SAT 99
--- NOTE | 2016-12-22 14:21 | HHI.PR ---
Subjective Remarks Follow-up visit bilateral leg trauma, external fixator in place. Patient seen and examined today. Patient encountered wheeling around the unit. Patient complaining his pain medication only last a few hours. Otherwise has no acute medical complaints. Patient denies any fever, chills, N/V, chest pain, shortness of breath or abdominal pain. Objective Vitals Vital Signs Date Time Temp Pulse Resp B/P (MAP) Pulse Ox O2 Delivery O2 Flow Rate FiO2 12/22/16 12:00 96.7 72 18 101/65 (77) 99 12/22/16 08:40 16 12/22/16 08:00 96.5 72 18 127/72 (90) 99 12/22/16 00:30 98.2 65 18 106/69 (81) 96 12/21/16 20:31 98.6 63 18 137/71 (93) 96 12/21/16 20:00 99 Room Air 12/21/16 16:00 95.7 62 18 113/74 (87) 100 I/O 12/21/16 12/21/16 12/21/16 12/22/16 12/22/16 12/22/16 07:00 15:00 23:00 07:00 15:00 23:00 Intake Total 480 ml 1200 ml 360 ml 240 ml Output Total 1200 ml 800 ml Balance -720 ml 1200 ml 360 ml -560 ml Intake Oral 480 ml 1200 ml 360 ml 240 ml Output Urine Total 1200 ml 800 ml Drainage Total 0 ml # Voids 6 3 # Bowel Movements 1 1 0 0 Result Diagram: 12/20/16 0811 12/20/16 0811 Imaging Last Impressions Ankle X-Ray 12/17/16 0000 Signed Impressions: Service Date/Time: Saturday, December 17, 2016 10:13 - CONCLUSION: Intramedullary mariano in tibia. Severely comminuted fibular fracture. Arvind Flores MD FACR Gall Bladder Ultrasound 12/05/16 0000 Signed Impressions: Service Date/Time: Monday, December 05, 2016 08:38 - CONCLUSION: Unremarkable exam. Gallbladder is within normal limits with no evidence of cholelithiasis. Ronald Rao MD Abdomen X-Ray 12/04/16 0000 Signed Impressions: Service Date/Time: November 10:42 - CONCLUSION: Unremarkable bowel gas pattern. Ronald Rao MD Knee X-Ray 11/25/16 0000 Signed Impressions: Service Date/Time: Friday, November 25, 2016 06:44 - CONCLUSION: Post surgical changes are identified. Mumtaz Cornelius MD Tibia/Fibula X-Ray 11/24/16 0000 Signed Impressions: Service Date/Time: Thursday, November 24, 2016 10:06 - CONCLUSION: 1. Mildly displaced lateral tibial plateau fracture which is not clearly evident on the previous studies. 2. Otherwise stable left tibia status post ORIF. 3. Wound VAC remains in place. Dex Wild MD Chest X-Ray 11/20/16 0000 Signed Impressions: Service Date/Time: November 17:08 - CONCLUSION: 1. No acute abnormality or significant interval change. Sukhi Stevens MD Pelvis X-Ray 11/07/16 1355 Signed Impressions: Service Date/Time: Monday, November 07, 2016 13:34 - CONCLUSION: No acute disease. Behzad Finch Jr., MD Objective Remarks GENERAL: This is a well-nourished, well-developed patient, in no apparent distress. Awake and alert. Self propelling himself around the unit in wheelchair. SKIN: Warm and dry. Wound VAC in place left lower extremity draining serosanguineous fluid. Dressing C/D/I. HEENT: Normocephalic. EOMI. Nose without bleeding. MMM. Airway patent. NECK: Trachea midline. Supple. CARDIOVASCULAR: Regular rate and rhythm without murmurs, gallops, or rubs. RESPIRATORY: Clear to auscultation. Breath sounds equal bilaterally. No wheezes , rales, or rhonchi. GASTROINTESTINAL: Abdomen soft, non-tender, nondistended. Bowel Sounds normoactive x4. MUSCULOSKELETAL: Extremities without clubbing, cyanosis. Right lower extremity with external fixation in place. Left lower leg with Raul wrap's, wound vac in place. Bilateral toes able to wiggle weakly. Pulses palpable. Edema noted in bilateral feet. NEUROLOGICAL: Awake and alert. Oriented to time, place, person. No focal neuro deficit. Non-tremulous. Moves all extremities. Decreased sensation to light touch tops of both feet. Normal speech. Procedures 1.s/p I&D with ex fix application bilateral tibias s/p wound vac application left tibia 2.With the assistance of RN, under sterile technique the avulsed skin of the right middle finger was clipped. No bleeding noted. Patient gave consent 3.Open reduction internal fixation of right distal tibia and fibula fractures Nonoperative treatment left tibial plateau fracture Irrigation and debridement of left tibia shaft fracture, removal external fixation, soleus muscle rotational flap, intramedullary nail fixation left tibia , application of wound VAC dressing 4.11/13 Irrigation and debridement of left tibia, application wound VAC dressing 5. 11/28 Irrigation and debridement of left open tibia fracture with application of wound VAC dressing 6. 12/01 wound vac change at the bedside 7. 12/05 wound vac change at the bedside 8. 12/08 wound vac change at the bedside 9. 12/09 I&D left tibia, application of wound VAC dressing and application of AlloMax allograft dermal matrix Medications and IVs Current Medications Medications (Trade) Dose Ordered Sig/Milagro Route Start Time Stop Time Status Last Admin (NS Flush) 2 ml UNSCH PRN IV FLUSH 11/07/16 14:30 12/11/16 11:31 (NS Flush) 2 ml BID IV FLUSH 11/07/16 21:00 12/17/16 21:19 (Zofran Inj) 4 mg Q6H PRN IV 11/07/16 14:30 12/04/16 06:13 (Narcan Inj) 0.4 mg UNSCH PRN IV 11/07/16 14:30 (Tylenol) 650 mg Q4H PRN PO 11/08/16 08:15 (Tums Chew) 1,000 mg TID PRN CHEW 11/08/16 08:15 12/06/16 08:52 (Vasotec Inj) 1.25 mg Q6H PRN IV 11/08/16 08:15 (Catapres) 0.1 mg Q6H PRN PO 11/08/16 08:15 (Aspirin Chew) 81 mg DAILY CHEW 11/08/16 12:45 12/22/16 09:32 (Prinivil) 25 mg DAILY PO 11/08/16 12:45 Future Hold 11/18/16 09:59 (Nitrostat Sl) 0.4 mg Q6HR PRN SL 11/08/16 12:45 (Protonix) 40 mg DAILY PO 11/08/16 12:45 12/22/16 09:32 (Pravachol) 80 mg HS PO 11/08/16 21:00 12/21/16 21:04 (Pill Splitter) 1 ea UNSCH PRN OTHER 11/08/16 12:45 (Elke-Colace) 1 tab BID PO 11/08/16 12:45 Future hold 12/22/16 09:32 (Vitamin B1) 100 mg DAILY PO 11/09/16 09:00 12/22/16 09:32 (Romazicon Inj) 0.2 mg Q1M PRN IV PUSH 11/08/16 13:00 (Haldol Inj) 2 mg Q15M PRN IM 11/08/16 13:00 (Neosporin Oint) 1 applic DAILY TOPICAL 11/10/16 09:00 12/17/16 09:00 (Milk Of Magnesia Liq) 30 ml HS PO 11/10/16 21:00 Future hold 12/21/16 12:08 (Oscal-D 250-125) 250 mg TID PO 11/10/16 13:00 12/22/16 09:32 (Duoneb Neb) 1 ampule Q4HR NEB PRN NEB 11/12/16 13:15 (Ambien) 5 mg HS PRN PO 11/14/16 11:00 12/13/16 23:44 (Desyrel) 100 mg HS PO 11/14/16 21:00 12/21/16 21:04 (Neurontin) 600 mg TID PO 11/16/16 13:00 12/22/16 09:32 (Hancock 10-325 Mg) 1 tab Q4H PRN PO 11/20/16 00:45 12/20/16 12:53 (Compazine Inj) 10 mg Q8H PRN IV PUSH 11/25/16 16:15 11/25/16 18:00 (Milk Of Magnesia Liq) 30 ml Q12H PRN PO 11/28/16 11:30 11/29/16 12:43 (Senokot) 17.2 mg Q12H PRN PO 11/28/16 11:30 (Dulcolax Supp) 10 mg DAILY PRN RECTAL 11/28/16 11:30 12/11/16 12:30 (Hancock 10-325 Mg) 1.5 tab Q4H PRN PO 11/28/16 15:00 12/22/16 11:42 (Folate) 1 mg DAILY PO 12/03/16 09:00 12/22/16 09:32 (Oramorph Sr) 30 mg Q8HR PO 12/03/16 14:00 12/22/16 05:36 (Lovenox Inj) 40 mg DAILY SQ 12/05/16 09:00 12/22/16 09:33 (Mag-Al Plus Susp Liq) 30 ml Q6HR PRN PO 12/04/16 18:00 12/06/16 08:52 (Aleks Daniels Oint) 1 applic UNSCH PRN TOPICAL 12/11/16 15:30 12/12/16 17:51 (Inderal) 10 mg Q12HR PO 12/13/16 21:00 12/22/16 09:32 (Baciguent Oint) 1 applic DAILY PRN TOPICAL 12/15/16 12:30 (Carafate Liq) 1 gm BID PO 12/16/16 21:00 12/30/16 20:59 12/22/16 09:32 (Lactinex) 1 tab TID PO 12/18/16 13:00 12/22/16 09:32 (Lidoderm 5% Patch.12 Hr) 1 patch HS T-DERMAL 12/19/16 21:00 12/21/16 21:09 Miscellaneous Information 1 Q24H T-DERMAL 12/20/16 09:00 12/22/16 09:34 A/P Problem List: (1) Fracture of tibia, left, open ICD Code: S82.202B - Unspecified fracture of shaft of left tibia, initial encounter for open fracture type I or II Status: Acute (2) Fracture of tibia, right, open ICD Code: S82.201B - Unspecified fracture of shaft of right tibia, initial encounter for open fracture type I or II Status: Acute (3) Hypotension ICD Code: I95.9 - Hypotension, unspecified Status: Acute (4) Right shoulder pain ICD Code: M25.511 - Pain in right shoulder Assessment and Plan 61-year-old male admitted secondary to bilateral leg trauma after car fell on his legs while he was working on. Open fractures were present bilaterally. Constipation - Patient's diarrhea has resolved, no sample was able to be collected for C. difficile - Stool softeners resumed Bilateral open tibia-fibula fractures Left tibial plateau fracture - Open fractures have been surgically repaired, right side has external fixation - Continue wound VAC left leg as per orthopedic surgery recommendations. Undergoing serial wound vac changes per ortho. - left tibial plateau fracture treated nonoperatively - Pin care BID to right leg - NWB BLEs - Lortab dose when necessary, Oramorph 30mg every 8 hours. Acute blood loss anemia - Related to trauma vs post op blood loss - Status post transfusion of 2 units of packed red blood cells in 11/12/16. - on iron supplementation daily. Iron studies reviewed. - hemoglobin stable - monitor CBC as indicated Coronary artery disease with h/o previous CABG - Appears stable. Patient is asymptomatic. - Continue propranolol and statin - ASA 81mg daily - Clonidine PRN Hypertension - controlled - RAUL inhibitor held due to hypotension. - Narcotics seem to have a depressive affect on this patient, however blood pressure has much improved after the patient was taken off IV morphine Diabetes mellitus type 2 - blood sugars well controlled Alcohol abuse Transaminitis, resolved - AST and ALT now within normal range. - Continue with daily thiamine and folic acid - Alcohol cessation recommended Tobacco abuse - Cessation recommended. Chronic essential tremor - Continue Propranolol at lower dose due to bradycardia with holding parameters, HR <55 GI prophylaxis: PPI DVT prophylaxis: Lovenox sq Discussed with patient and Dr. Cisneros Discharge Planning Pending Ortho clearance Problem Qualifiers (1) Fracture of tibia, left, open: (2) Fracture of tibia, right, open: (3) Hypotension: (4) Right shoulder pain: Qualified Codes: M25.511 - Pain in right shoulder; G89.29 - Other chronic pain Mary De Luna Dec 22, 2016 14:21
[2016-12-22 16:00] VITALS: BP 116/70; PULSE 70; RESP 18; TEMP 96.4; O2SAT 99
[2016-12-22 19:00] VITALS: BP 114/62; PULSE 75; RESP 16; TEMP 96.5; O2SAT 99
[2016-12-22] MEDS: PRAVASTATIN SOD 80 MG TAB PO SCH (20:45)
[2016-12-22] MEDS: MAGNESIUM HYDROXIDE SUSP 30 ML CUP PO SCH (20:45)
[2016-12-22] MEDS: traZODone HCL 100 MG TAB PO SCH (20:45)
[2016-12-22] MEDS: LIDOCAINE HCL 5% PATCH T-DERMAL SCH (20:49)
[2016-12-22 23:35] VITALS: BP 148/54; PULSE 69; RESP 17; TEMP 97.8; O2SAT 97
[2016-12-23] MEDS: ACETAMINOPHEN/HYDROcodone 325 MG/10 MG TAB PO PRN ×5 (05:26→21:38)
[2016-12-23] MEDS: MORPHINE SULFATE 30 MG CONTROLLED RELEASE TAB PO SCH ×3 (06:58→21:37)
--- NOTE | 2016-12-23 07:00 | PD.ORT.PN ---
Subjective Subjective Remarks s/p left tibia IMN and right tibia ORIF with exfix s/p left tibia soleus flap s/p left tibial plateau fracture doing well. pain controlled. ambulating with wheelchair Objective Vitals Vital Signs Date Time Temp Pulse Resp B/P (MAP) Pulse Ox O2 Delivery O2 Flow Rate FiO2 12/22/16 23:35 97.8 69 17 148/54 (85) 97 12/22/16 20:00 99 Room Air 12/22/16 19:00 96.5 75 16 114/62 (79) 99 12/22/16 16:00 96.4 70 18 116/70 (85) 99 12/22/16 12:00 96.7 72 18 101/65 (77) 99 12/22/16 08:40 16 12/22/16 08:00 96.5 72 18 127/72 (90) 99 I/O 12/22/16 12/22/16 12/22/16 12/23/16 12/23/16 12/23/16 06:59 14:59 22:59 06:59 14:59 22:59 Intake Total 240 ml 720 ml 480 ml 480 ml Output Total 800 ml 0 ml Balance -560 ml 720 ml 480 ml 480 ml Intake Oral 240 ml 720 ml 480 ml 480 ml Output Urine Total 800 ml Drainage Total 0 ml # Voids 3 3 2 # Bowel Movements 0 2 0 0 Result Diagram: 12/20/16 0811 12/20/16 0811 Imaging Last 24 hours Impressions Pelvis X-Ray 11/07/16 1355 Signed Impressions: Service Date/Time: Monday, November 07, 2016 13:34 - CONCLUSION: No acute disease. Behzad Finch Jr., MD Chest X-Ray 11/07/16 1355 Signed Impressions: Service Date/Time: Monday, November 07, 2016 13:34 - CONCLUSION: No acute disease. Jac Gonzales MD Objective Remarks RLE: Dressings clean and dry. intact. with full sensation and motor function. + exfix. pin sites. clean LLE: Wound VAC intact. Good seal. no sensation over medial foot. slight stiffness with dorsiflexion. graft healing. +granulation tissue. CKS. slight drainage over distal aspect of graft. Assessment & Plan Assessment and Plan 1) Right Open Tibia Fracture s/p exfix revision with ORIF 2) Left Open Tibia Fracture s/p Soleus muscle flap with IMN and removal of exfix 3) left tibia plateau fracture treated nonoperatively 4) s/p vac change with collagen grafting -NWB BLE -pin care BID right leg -maintain vac left leg -vac settinmmHg, intermittent, 3:1 -vac changed at bedside today -swab culture done of drainage from graft -plan for vac change later in week. Jef Steve Dec 23, 2016 07:00
[2016-12-23 07:39] VITALS: BP 123/70; PULSE 73; RESP 18; TEMP 96.7; O2SAT 97
[2016-12-23] MEDS: LACTOBACILLUS ACIDOPHILUS TAB PO SCH ×3 (08:56→17:35)
[2016-12-23] MEDS: PANTOPRAZOLE SOD 40 MG DELAYED RELEASE TAB PO SCH (08:57)
[2016-12-23] MEDS: CALCIUM/VITAMIN D 250 MG/125 U TAB PO SCH ×3 (08:57→17:35)
[2016-12-23] MEDS: THIAMINE HCL 100 MG TAB PO SCH (08:57)
[2016-12-23] MEDS: PROPRANOLOL HCL 10 MG TAB PO SCH ×2 (08:58→21:38)
[2016-12-23] MEDS: DOCUSATE SODIUM 50 MG/SENNA 8.6 MG TAB PO SCH ×2 (08:58→21:37)
[2016-12-23] MEDS: FOLIC ACID 1 MG TAB PO SCH (08:58)
[2016-12-23] MEDS: ASPIRIN 81 MG CHEW TAB CHEW SCH (08:58)
[2016-12-23] MEDS: ENOXAPARIN SODIUM 40 MG/0.4 ML SYRINGE SQ SCH (08:59)
[2016-12-23] MEDS: SUCRALFATE 1 GM/10 ML CUP PO SCH ×2 (09:00→21:36)
[2016-12-23] MEDS: GABAPENTIN 300 MG CAP PO SCH ×3 (09:00→17:34)
[2016-12-23] MEDS: NEOMYCIN/POLYMYXIN/BACITRACIN OINT 15 GM TUBE TOPICAL SCH (09:00)
[2016-12-23] MEDS: REMOVE OLD LIDOCAINE PATCH T-DERMAL SCH (09:00)
[2016-12-23 15:51] VITALS: BP 123/73; PULSE 69; RESP 18; TEMP 97.9; O2SAT 98
[2016-12-23 20:06] VITALS: BP 112/68; PULSE 72; RESP 18; TEMP 97.8; O2SAT 97
--- NOTE | 2016-12-23 20:19 | HHI.PR ---
Subjective Remarks Follow-up visit bilateral leg trauma, external fixator in place. Patient seen and examined today. Patient encountered in his room sitting in wheel chair. Pt reported continued leg pain and medication not working for long periods of time. Pt reported increased sensation in his toes. Otherwise has no acute medical complaints. Patient denies any fever, chills, N/V, chest pain, shortness of breath or abdominal pain. Per Rn (Nadia) pt's pain medication had been addressed by surgical team earlier in he day. Per RN, pt had wound vac changed earlier in the day. Objective Vitals Vital Signs Date Time Temp Pulse Resp B/P (MAP) Pulse Ox O2 Delivery O2 Flow Rate FiO2 12/23/16 15:51 97.9 69 18 123/73 (90) 98 12/23/16 14:30 18 12/23/16 14:30 18 12/23/16 10:00 18 12/23/16 07:39 96.7 73 18 123/70 (87) 97 12/22/16 23:35 97.8 69 17 148/54 (85) 97 I/O 12/22/16 12/22/16 12/22/16 12/23/16 12/23/16 12/23/16 07:00 15:00 23:00 07:00 15:00 23:00 Intake Total 240 ml 720 ml 480 ml 480 ml 380 ml Output Total 800 ml 0 ml 0 ml Balance -560 ml 720 ml 480 ml 480 ml 380 ml Intake Oral 240 ml 720 ml 480 ml 480 ml 380 ml Output Urine Total 800 ml Drainage Total 0 ml 0 ml # Voids 3 3 2 3 # Bowel Movements 0 2 0 0 1 Result Diagram: 12/20/16 0811 12/20/16 0811 Imaging Last Impressions Ankle X-Ray 12/17/16 0000 Signed Impressions: Service Date/Time: Saturday, December 17, 2016 10:13 - CONCLUSION: Intramedullary mariano in tibia. Severely comminuted fibular fracture. Arvind Flores MD FACR Gall Bladder Ultrasound 12/05/16 0000 Signed Impressions: Service Date/Time: Monday, December 05, 2016 08:38 - CONCLUSION: Unremarkable exam. Gallbladder is within normal limits with no evidence of cholelithiasis. Ronald Rao MD Abdomen X-Ray 12/04/16 0000 Signed Impressions: Service Date/Time: November 10:42 - CONCLUSION: Unremarkable bowel gas pattern. Ronald Rao MD Knee X-Ray 11/25/16 0000 Signed Impressions: Service Date/Time: Friday, November 25, 2016 06:44 - CONCLUSION: Post surgical changes are identified. Mumtaz Cornelius MD Tibia/Fibula X-Ray 11/24/16 0000 Signed Impressions: Service Date/Time: Thursday, November 24, 2016 10:06 - CONCLUSION: 1. Mildly displaced lateral tibial plateau fracture which is not clearly evident on the previous studies. 2. Otherwise stable left tibia status post ORIF. 3. Wound VAC remains in place. Dex Wild MD Chest X-Ray 11/20/16 0000 Signed Impressions: Service Date/Time: November 17:08 - CONCLUSION: 1. No acute abnormality or significant interval change. Sukhi Stevens MD Pelvis X-Ray 11/07/16 1355 Signed Impressions: Service Date/Time: Monday, November 07, 2016 13:34 - CONCLUSION: No acute disease. Behzad Finch Jr., MD Objective Remarks GENERAL: Pt sitting in wheel chair. Smiling.NAD SKIN: Warm and dry. HEAD: Normocephalic. EYES: No scleral icterus. No injection or drainage. NECK: Supple, trachea midline. No lymphadenopathy. CARDIOVASCULAR: Regular rate and rhythm without murmurs, gallops, or rubs. RESPIRATORY: Breath sounds equal bilaterally. No accessory muscle use. GASTROINTESTINAL: Abdomen soft, nondistended. Left lower quadrant tenderness elicited. MUSCULOSKELETAL: No cyanosis, or edema. Right leg ORIF. No tremor noted. PSYCHIATRIC: Alert and oriented x 3. No overt signs of depression/anxiety. Pleasant and cooperative. Procedures 1.s/p I&D with ex fix application bilateral tibias s/p wound vac application left tibia 2.With the assistance of RN, under sterile technique the avulsed skin of the right middle finger was clipped. No bleeding noted. Patient gave consent 3.Open reduction internal fixation of right distal tibia and fibula fractures Nonoperative treatment left tibial plateau fracture Irrigation and debridement of left tibia shaft fracture, removal external fixation, soleus muscle rotational flap, intramedullary nail fixation left tibia , application of wound VAC dressing 4.11/13 Irrigation and debridement of left tibia, application wound VAC dressing 5. 11/28 Irrigation and debridement of left open tibia fracture with application of wound VAC dressing 6. 12/01 wound vac change at the bedside 7. 12/05 wound vac change at the bedside 8. 12/08 wound vac change at the bedside 9. 12/09 I&D left tibia, application of wound VAC dressing and application of AlloMax allograft dermal matrix Medications and IVs Current Medications Medications (Trade) Dose Ordered Sig/Milagro Route Start Time Stop Time Status Last Admin (NS Flush) 2 ml UNSCH PRN IV FLUSH 11/07/16 14:30 12/11/16 11:31 (NS Flush) 2 ml BID IV FLUSH 11/07/16 21:00 12/17/16 21:19 (Zofran Inj) 4 mg Q6H PRN IV 11/07/16 14:30 12/04/16 06:13 (Narcan Inj) 0.4 mg UNSCH PRN IV 11/07/16 14:30 (Tylenol) 650 mg Q4H PRN PO 11/08/16 08:15 (Tums Chew) 1,000 mg TID PRN CHEW 11/08/16 08:15 12/06/16 08:52 (Vasotec Inj) 1.25 mg Q6H PRN IV 11/08/16 08:15 (Catapres) 0.1 mg Q6H PRN PO 11/08/16 08:15 (Aspirin Chew) 81 mg DAILY CHEW 11/08/16 12:45 12/23/16 08:58 (Prinivil) 25 mg DAILY PO 11/08/16 12:45 Future Hold 11/18/16 09:59 (Nitrostat Sl) 0.4 mg Q6HR PRN SL 11/08/16 12:45 (Protonix) 40 mg DAILY PO 11/08/16 12:45 12/23/16 08:57 (Pravachol) 80 mg HS PO 11/08/16 21:00 12/22/16 20:45 (Pill Splitter) 1 ea UNSCH PRN OTHER 11/08/16 12:45 (Elke-Colace) 1 tab BID PO 11/08/16 12:45 Future hold 12/23/16 08:58 (Vitamin B1) 100 mg DAILY PO 11/09/16 09:00 12/23/16 08:57 (Romazicon Inj) 0.2 mg Q1M PRN IV PUSH 11/08/16 13:00 (Haldol Inj) 2 mg Q15M PRN IM 11/08/16 13:00 (Neosporin Oint) 1 applic DAILY TOPICAL 11/10/16 09:00 12/23/16 09:00 (Milk Of Magnesia Liq) 30 ml HS PO 11/10/16 21:00 Future hold 12/22/16 20:45 (Oscal-D 250-125) 250 mg TID PO 11/10/16 13:00 12/23/16 17:35 (Duoneb Neb) 1 ampule Q4HR NEB PRN NEB 11/12/16 13:15 (Ambien) 5 mg HS PRN PO 11/14/16 11:00 12/13/16 23:44 (Desyrel) 100 mg HS PO 11/14/16 21:00 12/22/16 20:45 (Neurontin) 600 mg TID PO 11/16/16 13:00 12/23/16 17:34 ([place] 10-325 Mg) 1 tab Q4H PRN PO 11/20/16 00:45 12/23/16 08:58 (Compazine Inj) 10 mg Q8H PRN IV PUSH 11/25/16 16:15 11/25/16 18:00 (Milk Of Magnesia Liq) 30 ml Q12H PRN PO 11/28/16 11:30 11/29/16 12:43 (Senokot) 17.2 mg Q12H PRN PO 11/28/16 11:30 (Dulcolax Supp) 10 mg DAILY PRN RECTAL 11/28/16 11:30 12/11/16 12:30 (Folate) 1 mg DAILY PO 12/03/16 09:00 12/23/16 08:58 (Oramorph Sr) 30 mg Q8HR PO 12/03/16 14:00 12/23/16 13:43 (Lovenox Inj) 40 mg DAILY SQ 12/05/16 09:00 12/23/16 08:59 (Mag-Al Plus Susp Liq) 30 ml Q6HR PRN PO 12/04/16 18:00 12/06/16 08:52 (Aleks Daniels Oint) 1 applic UNSCH PRN TOPICAL 12/11/16 15:30 12/12/16 17:51 (Inderal) 10 mg Q12HR PO 12/13/16 21:00 12/23/16 08:58 (Baciguent Oint) 1 applic DAILY PRN TOPICAL 12/15/16 12:30 (Carafate Liq) 1 gm BID PO 12/16/16 21:00 12/30/16 20:59 12/23/16 09:00 (Lactinex) 1 tab TID PO 12/18/16 13:00 12/23/16 17:35 (Lidoderm 5% Patch.12 Hr) 1 patch HS T-DERMAL 12/19/16 21:00 12/21/16 21:09 Miscellaneous Information 1 Q24H T-DERMAL 12/20/16 09:00 12/23/16 09:00 ([place] 10-325 Mg) 2 tab Q4H PRN PO 12/23/16 18:45 Urinary Catheter: No A/P Problem List: (1) Fracture of tibia, left, open ICD Code: S82.202B - Unspecified fracture of shaft of left tibia, initial encounter for open fracture type I or II Status: Acute (2) Fracture of tibia, right, open ICD Code: S82.201B - Unspecified fracture of shaft of right tibia, initial encounter for open fracture type I or II Status: Acute (3) Hypotension ICD Code: I95.9 - Hypotension, unspecified Status: Acute (4) Right shoulder pain ICD Code: M25.511 - Pain in right shoulder Assessment and Plan 61-year-old male admitted secondary to bilateral leg trauma after car fell on his legs while he was working on. Open fractures were present bilaterally. Constipation - Patient's diarrhea has resolved, no sample was able to be collected for C. difficile - Stool softeners resumed -noted to have 1-2 bowel movements per day. Bilateral open tibia-fibula fractures Left tibial plateau fracture - Open fractures have been surgically repaired, right side has external fixation - Continue wound VAC left leg as per orthopedic surgery recommendations. Undergoing serial wound vac changes per ortho. - left tibial plateau fracture treated nonoperatively - Pin care BID to right leg - NWB BLEs - Lortab dose when necessary, Oramorph 30mg every 8 hours. -Orthopedics increased [place] to 20 mg per administration. Acute blood loss anemia - Related to trauma vs post op blood loss - Status post transfusion of 2 units of packed red blood cells in 11/12/16. - on iron supplementation daily. Iron studies reviewed. - hemoglobin stable - monitor CBC as indicated Coronary artery disease with h/o previous CABG - Appears stable. Patient is asymptomatic. - Continue propranolol and statin - ASA 81mg daily - Clonidine PRN Hypertension - controlled - MARGIE inhibitor held due to hypotension. - Narcotics seem to have a depressive affect on this patient, however blood pressure has much improved after the patient was taken off IV morphine Diabetes mellitus type 2 - blood sugars well controlled Alcohol abuse Transaminitis, resolved - AST and ALT now within normal range. - Continue with daily thiamine and folic acid - Alcohol cessation recommended Tobacco abuse - Cessation recommended. Chronic essential tremor - Continue Propranolol at lower dose due to bradycardia with holding parameters, HR <55 GI prophylaxis: PPI DVT prophylaxis: Lovenox sq Discussed with patient, RN, and Dr. Cisneros Problem Qualifiers (1) Fracture of tibia, left, open: (2) Fracture of tibia, right, open: (3) Hypotension: (4) Right shoulder pain: Qualified Codes: M25.511 - Pain in right shoulder; G89.29 - Other chronic pain Aurelio Patterson Jr. Dec 23, 2016 20:19
[2016-12-23] MEDS: SODIUM CHLORIDE 0.9% FLUSH 10 ML FLUSH IV FLUSH SCH (21:20)
[2016-12-23] MEDS: traZODone HCL 100 MG TAB PO SCH (21:36)
[2016-12-23] MEDS: PRAVASTATIN SOD 80 MG TAB PO SCH (21:37)
[2016-12-23] MEDS: MAGNESIUM HYDROXIDE SUSP 30 ML CUP PO SCH (21:38)
[2016-12-23] MEDS: LIDOCAINE HCL 5% PATCH T-DERMAL SCH (21:42)
[2016-12-24] MEDS: ACETAMINOPHEN/HYDROcodone 325 MG/10 MG TAB PO PRN ×5 (02:01→21:10)
[2016-12-24] MEDS: MORPHINE SULFATE 30 MG CONTROLLED RELEASE TAB PO SCH ×3 (06:03→21:11)
--- NOTE | 2016-12-24 06:44 | PD.ORT.PN ---
Subjective Subjective Remarks Pain controlled Doing well Objective Vitals Vital Signs Date Time Temp Pulse Resp B/P (MAP) Pulse Ox O2 Delivery O2 Flow Rate FiO2 12/23/16 20:06 97.8 72 18 112/68 (83) 97 12/23/16 15:51 97.9 69 18 123/73 (90) 98 12/23/16 14:30 18 12/23/16 14:30 18 12/23/16 10:00 18 12/23/16 07:39 96.7 73 18 123/70 (87) 97 I/O 12/23/16 12/23/16 12/23/16 12/24/16 12/24/16 12/24/16 06:59 14:59 22:59 06:59 14:59 22:59 Intake Total 480 ml 380 ml 720 ml 480 ml Output Total 0 ml 0 ml 0 ml Balance 480 ml 380 ml 720 ml 480 ml Intake Oral 480 ml 380 ml 720 ml 480 ml Drainage Total 0 ml 0 ml 0 ml # Voids 2 3 2 3 # Bowel Movements 0 1 0 1 Result Diagram: 12/20/16 0811 12/20/16 0811 Imaging Last 24 hours Impressions Pelvis X-Ray 11/07/16 1355 Signed Impressions: Service Date/Time: Monday, November 07, 2016 13:34 - CONCLUSION: No acute disease. Behzad Finch Jr., MD Chest X-Ray 11/07/16 1355 Signed Impressions: Service Date/Time: Monday, November 07, 2016 13:34 - CONCLUSION: No acute disease. Jac Gonzales MD Objective Remarks RLE: Dressings clean and dry. intact. with full sensation and motor function. + exfix. pin sites. clean LLE: Wound VAC intact. Good seal. no sensation over medial foot. slight stiffness with dorsiflexion.CKS. slight drainage over distal aspect of graft. Assessment & Plan Assessment and Plan 1) Right Open Tibia Fracture s/p exfix revision with ORIF 2) Left Open Tibia Fracture s/p Soleus muscle flap with IMN and removal of exfix 3) left tibia plateau fracture treated nonoperatively 4) s/p vac change with collagen grafting -NWB BLE -pin care BID right leg -maintain vac left leg -vac settinmmHg, intermittent, 3:1 -vac change to be planned for Thursday Ronald Hatch Jr. Dec 24, 2016 06:44
[2016-12-24] MEDS: NEOMYCIN/POLYMYXIN/BACITRACIN OINT 15 GM TUBE TOPICAL SCH (09:00)
[2016-12-24] MEDS: REMOVE OLD LIDOCAINE PATCH T-DERMAL SCH (09:00)
[2016-12-24] MEDS: SODIUM CHLORIDE 0.9% FLUSH 10 ML FLUSH IV FLUSH SCH ×2 (09:00→21:12)
[2016-12-24] MEDS: SUCRALFATE 1 GM/10 ML CUP PO SCH ×2 (09:49→21:12)
[2016-12-24] MEDS: FOLIC ACID 1 MG TAB PO SCH (09:50)
[2016-12-24] MEDS: GABAPENTIN 300 MG CAP PO SCH ×3 (09:50→17:01)
[2016-12-24] MEDS: PANTOPRAZOLE SOD 40 MG DELAYED RELEASE TAB PO SCH (09:50)
[2016-12-24] MEDS: CALCIUM/VITAMIN D 250 MG/125 U TAB PO SCH ×3 (09:50→17:00)
[2016-12-24] MEDS: LACTOBACILLUS ACIDOPHILUS TAB PO SCH ×3 (09:50→17:01)
[2016-12-24] MEDS: PROPRANOLOL HCL 10 MG TAB PO SCH ×2 (09:50→21:11)
[2016-12-24] MEDS: THIAMINE HCL 100 MG TAB PO SCH (09:50)
[2016-12-24] MEDS: ASPIRIN 81 MG CHEW TAB CHEW SCH (09:50)
[2016-12-24] MEDS: DOCUSATE SODIUM 50 MG/SENNA 8.6 MG TAB PO SCH ×2 (09:50→21:11)
[2016-12-24] MEDS: ENOXAPARIN SODIUM 40 MG/0.4 ML SYRINGE SQ SCH (09:51)
[2016-12-24 11:50] VITALS: BP 106/56; PULSE 75; RESP 17; TEMP 97.7; O2SAT 98
[2016-12-24 15:53] VITALS: BP 110/58; PULSE 60; RESP 18; TEMP 97.8; O2SAT 99
--- NOTE | 2016-12-24 17:30 | HHI.PR ---
Subjective Remarks Follow-up visit bilateral leg trauma, external fixator in place. Patient seen and examined today. Patient encountered in hallway sitting in wheel chair. Pt reported being upset over financial issues related to his social security payment. Pt stated he "had the shakes really bad yesterday." Pt speculated it was related to him "being pissed off about my Social security getting screwed up." Pt reported continued bilateral leg pain. pt reported the left leg of his wheel chair "is a bit long and my foot is cramping." Pt said he is contacted nursing staff and "they called maintenance last night but they didn't come." Otherwise pt has no acute medical complaints. Patient denies any fever, chills, N/V, chest pain, shortness of breath or abdominal pain. Per RN, no acute issues noted overnight or since start of shift. Objective Vitals Vital Signs Date Time Temp Pulse Resp B/P (MAP) Pulse Ox O2 Delivery O2 Flow Rate FiO2 12/24/16 15:53 97.8 60 18 110/58 (75) 99 12/24/16 11:50 97.7 75 17 106/56 (73) 98 12/23/16 20:06 97.8 72 18 112/68 (83) 97 I/O 12/23/16 12/23/16 12/23/16 12/24/16 12/24/16 12/24/16 06:59 14:59 22:59 06:59 14:59 22:59 Intake Total 480 ml 380 ml 720 ml 480 ml 1000 ml Output Total 0 ml 0 ml 0 ml 700 ml Balance 480 ml 380 ml 720 ml 480 ml 300 ml Intake Oral 480 ml 380 ml 720 ml 480 ml 1000 ml Output Urine Total 700 ml Drainage Total 0 ml 0 ml 0 ml # Voids 2 3 2 3 # Bowel Movements 0 1 0 1 1 Result Diagram: 12/20/16 0811 12/20/16 0811 Imaging Last Impressions Ankle X-Ray 12/17/16 0000 Signed Impressions: Service Date/Time: Saturday, December 17, 2016 10:13 - CONCLUSION: Intramedullary mariano in tibia. Severely comminuted fibular fracture. Arvind Flores MD FACR Gall Bladder Ultrasound 12/05/16 0000 Signed Impressions: Service Date/Time: Monday, December 05, 2016 08:38 - CONCLUSION: Unremarkable exam. Gallbladder is within normal limits with no evidence of cholelithiasis. Ronald Rao MD Abdomen X-Ray 12/04/16 0000 Signed Impressions: Service Date/Time: November 10:42 - CONCLUSION: Unremarkable bowel gas pattern. Ronald Rao MD Knee X-Ray 11/25/16 0000 Signed Impressions: Service Date/Time: Friday, November 25, 2016 06:44 - CONCLUSION: Post surgical changes are identified. Mumtaz Cornelius MD Tibia/Fibula X-Ray 11/24/16 0000 Signed Impressions: Service Date/Time: Thursday, November 24, 2016 10:06 - CONCLUSION: 1. Mildly displaced lateral tibial plateau fracture which is not clearly evident on the previous studies. 2. Otherwise stable left tibia status post ORIF. 3. Wound VAC remains in place. Dex Wild MD Chest X-Ray 11/20/16 0000 Signed Impressions: Service Date/Time: November 17:08 - CONCLUSION: 1. No acute abnormality or significant interval change. Sukhi Stevens MD Pelvis X-Ray 11/07/16 1355 Signed Impressions: Service Date/Time: Monday, November 07, 2016 13:34 - CONCLUSION: No acute disease. Behzad Finch Jr., MD Objective Remarks GENERAL: Pt sitting in wheel chair. Smiling.NAD SKIN: Warm and dry. HEAD: Normocephalic. EYES: No scleral icterus. No injection or drainage. NECK: Supple, trachea midline. No lymphadenopathy. CARDIOVASCULAR: Regular rate and rhythm without murmurs, gallops, or rubs. RESPIRATORY: Breath sounds equal bilaterally. No accessory muscle use. GASTROINTESTINAL: Abdomen soft, nondistended. Left lower quadrant tenderness elicited. MUSCULOSKELETAL: No cyanosis, or edema. Right leg ORIF. Slight tremor noted. PSYCHIATRIC: Alert and oriented x 3. No overt signs of depression/anxiety. Pleasant and cooperative. Procedures 1.s/p I&D with ex fix application bilateral tibias s/p wound vac application left tibia 2.With the assistance of RN, under sterile technique the avulsed skin of the right middle finger was clipped. No bleeding noted. Patient gave consent 3.Open reduction internal fixation of right distal tibia and fibula fractures Nonoperative treatment left tibial plateau fracture Irrigation and debridement of left tibia shaft fracture, removal external fixation, soleus muscle rotational flap, intramedullary nail fixation left tibia , application of wound VAC dressing 4.7 Irrigation and debridement of left tibia, application wound VAC dressing 5. 8 Irrigation and debridement of left open tibia fracture with application of wound VAC dressing 6. 12/01 wound vac change at the bedside 7. 12/05 wound vac change at the bedside 8. 12/08 wound vac change at the bedside 9. 12/09 I&D left tibia, application of wound VAC dressing and application of AlloMax allograft dermal matrix Medications and IVs Current Medications Medications (Trade) Dose Ordered Sig/Milagro Route Start Time Stop Time Status Last Admin (NS Flush) 2 ml UNSCH PRN IV FLUSH 11/07/16 14:30 12/11/16 11:31 (NS Flush) 2 ml BID IV FLUSH 11/07/16 21:00 12/17/16 21:19 (Zofran Inj) 4 mg Q6H PRN IV 11/07/16 14:30 12/04/16 06:13 (Narcan Inj) 0.4 mg UNSCH PRN IV 11/07/16 14:30 (Tylenol) 650 mg Q4H PRN PO 11/08/16 08:15 (Tums Chew) 1,000 mg TID PRN CHEW 11/08/16 08:15 12/06/16 08:52 (Vasotec Inj) 1.25 mg Q6H PRN IV 11/08/16 08:15 (Catapres) 0.1 mg Q6H PRN PO 11/08/16 08:15 (Aspirin Chew) 81 mg DAILY CHEW 11/08/16 12:45 12/24/16 09:50 (Prinivil) 25 mg DAILY PO 11/08/16 12:45 Future Hold 11/18/16 09:59 (Nitrostat Sl) 0.4 mg Q6HR PRN SL 11/08/16 12:45 (Protonix) 40 mg DAILY PO 11/08/16 12:45 12/24/16 09:50 (Pravachol) 80 mg HS PO 11/08/16 21:00 12/23/16 21:37 (Pill Splitter) 1 ea UNSCH PRN OTHER 11/08/16 12:45 (Elke-Colace) 1 tab BID PO 11/08/16 12:45 Future hold 12/24/16 09:50 (Vitamin B1) 100 mg DAILY PO 11/09/16 09:00 12/24/16 09:50 (Romazicon Inj) 0.2 mg Q1M PRN IV PUSH 11/08/16 13:00 (Haldol Inj) 2 mg Q15M PRN IM 11/08/16 13:00 (Neosporin Oint) 1 applic DAILY TOPICAL 11/10/16 09:00 12/24/16 09:00 (Milk Of Magnesia Liq) 30 ml HS PO 11/10/16 21:00 Future hold 12/23/16 21:38 (Oscal-D 250-125) 250 mg TID PO 11/10/16 13:00 12/24/16 17:00 (Duoneb Neb) 1 ampule Q4HR NEB PRN NEB 11/12/16 13:15 (Ambien) 5 mg HS PRN PO 11/14/16 11:00 12/13/16 23:44 (Desyrel) 100 mg HS PO 11/14/16 21:00 12/23/16 21:36 (Neurontin) 600 mg TID PO 11/16/16 13:00 12/24/16 17:01 ([place] 10-325 Mg) 1 tab Q4H PRN PO 11/20/16 00:45 12/23/16 08:58 (Compazine Inj) 10 mg Q8H PRN IV PUSH 11/25/16 16:15 11/25/16 18:00 (Milk Of Magnesia Liq) 30 ml Q12H PRN PO 11/28/16 11:30 11/29/16 12:43 (Senokot) 17.2 mg Q12H PRN PO 11/28/16 11:30 (Dulcolax Supp) 10 mg DAILY PRN RECTAL 11/28/16 11:30 12/11/16 12:30 (Folate) 1 mg DAILY PO 12/03/16 09:00 12/24/16 09:50 (Oramorph Sr) 30 mg Q8HR PO 12/03/16 14:00 12/24/16 13:50 (Lovenox Inj) 40 mg DAILY SQ 12/05/16 09:00 12/24/16 09:51 (Mag-Al Plus Susp Liq) 30 ml Q6HR PRN PO 12/04/16 18:00 12/06/16 08:52 (Aleks Daniels Oint) 1 applic UNSCH PRN TOPICAL 12/11/16 15:30 12/12/16 17:51 (Inderal) 10 mg Q12HR PO 12/13/16 21:00 12/24/16 09:50 (Baciguent Oint) 1 applic DAILY PRN TOPICAL 12/15/16 12:30 (Carafate Liq) 1 gm BID PO 12/16/16 21:00 12/30/16 20:59 12/24/16 09:49 (Lactinex) 1 tab TID PO 12/18/16 13:00 12/24/16 17:01 (Lidoderm 5% Patch.12 Hr) 1 patch HS T-DERMAL 12/19/16 21:00 12/21/16 21:09 Miscellaneous Information 1 Q24H T-DERMAL 12/20/16 09:00 12/24/16 09:00 ([place] 10-325 Mg) 2 tab Q4H PRN PO 12/23/16 18:45 12/24/16 17:00 Urinary Catheter: No A/P Problem List: (1) Fracture of tibia, left, open ICD Code: S82.202B - Unspecified fracture of shaft of left tibia, initial encounter for open fracture type I or II Status: Acute (2) Fracture of tibia, right, open ICD Code: S82.201B - Unspecified fracture of shaft of right tibia, initial encounter for open fracture type I or II Status: Acute (3) Hypotension ICD Code: I95.9 - Hypotension, unspecified Status: Acute (4) Right shoulder pain ICD Code: M25.511 - Pain in right shoulder Assessment and Plan 61-year-old male admitted secondary to bilateral leg trauma after car fell on his legs while he was working on. Open fractures were present bilaterally. Tremors: Review beta gil. Consider increase if tremor continues. Constipation - Patient's diarrhea has resolved, no sample was able to be collected for C. difficile - Stool softeners resumed -noted to have 1-2 bowel movements per day. Bilateral open tibia-fibula fractures Left tibial plateau fracture - Open fractures have been surgically repaired, right side has external fixation - Continue wound VAC left leg as per orthopedic surgery recommendations. Undergoing serial wound vac changes per ortho. - left tibial plateau fracture treated nonoperatively - Pin care BID to right leg - NWB BLEs - Lortab dose when necessary, Oramorph 30mg every 8 hours. -Orthopedics increased [place] to 20 mg per administration. Acute blood loss anemia - Related to trauma vs post op blood loss - Status post transfusion of 2 units of packed red blood cells in 11/12/16. - on iron supplementation daily. Iron studies reviewed. - hemoglobin stable - monitor CBC as indicated Coronary artery disease with h/o previous CABG - Appears stable. Patient is asymptomatic. - Continue propranolol and statin - ASA 81mg daily - Clonidine PRN Hypertension - controlled - MARGIE inhibitor held due to hypotension. - Narcotics seem to have a depressive affect on this patient, however blood pressure has much improved after the patient was taken off IV morphine Diabetes mellitus type 2 - blood sugars well controlled Alcohol abuse Transaminitis, resolved - AST and ALT now within normal range. - Continue with daily thiamine and folic acid - Alcohol cessation recommended Tobacco abuse - Cessation recommended. Chronic essential tremor - Continue Propranolol at lower dose due to bradycardia with holding parameters, HR <55 GI prophylaxis: PPI DVT prophylaxis: Lovenox sq Discussed with patient, RN, and Dr. Cisneros Problem Qualifiers (1) Fracture of tibia, left, open: (2) Fracture of tibia, right, open: (3) Hypotension: (4) Right shoulder pain: Qualified Codes: M25.511 - Pain in right shoulder; G89.29 - Other chronic pain Aurelio Patterson Jr. Dec 24, 2016 17:30
[2016-12-24 20:58] VITALS: BP 119/56; PULSE 76; RESP 18; TEMP 97.8; O2SAT 96
[2016-12-24] MEDS: LIDOCAINE HCL 5% PATCH T-DERMAL SCH (21:11)
[2016-12-24] MEDS: PRAVASTATIN SOD 80 MG TAB PO SCH (21:11)
[2016-12-24] MEDS: traZODone HCL 100 MG TAB PO SCH (21:11)
[2016-12-24] MEDS: MAGNESIUM HYDROXIDE SUSP 30 ML CUP PO SCH (21:12)
[2016-12-25 00:41] VITALS: BP 102/57; PULSE 71; RESP 18; TEMP 98.4; O2SAT 96
[2016-12-25] MEDS: ACETAMINOPHEN/HYDROcodone 325 MG/10 MG TAB PO PRN ×5 (01:34→20:27)
[2016-12-25] MEDS: MORPHINE SULFATE 30 MG CONTROLLED RELEASE TAB PO SCH ×3 (05:47→20:28)
--- NOTE | 2016-12-25 06:57 | PD.ORT.PN ---
Subjective Subjective Remarks s/p left tibia IMN and right tibia ORIF with exfix s/p left tibia soleus flap s/p left tibial plateau fracture doing well. pain controlled. ambulating with wheelchair. cultures yesterday came back positive or MRSA from wound on leg Objective Vitals Vital Signs Date Time Temp Pulse Resp B/P (MAP) Pulse Ox O2 Delivery O2 Flow Rate FiO2 12/25/16 00:41 98.4 71 18 102/57 (72) 96 12/24/16 20:58 97.8 76 18 119/56 (77) 96 12/24/16 15:53 97.8 60 18 110/58 (75) 99 12/24/16 11:50 97.7 75 17 106/56 (73) 98 I/O 12/24/16 12/24/16 12/24/16 12/25/16 12/25/16 12/25/16 07:00 15:00 23:00 07:00 15:00 23:00 Intake Total 480 ml 1000 ml 840 ml Output Total 0 ml 700 ml 300 ml Balance 480 ml 300 ml 540 ml Intake Oral 480 ml 1000 ml 840 ml Output Urine Total 700 ml 300 ml Drainage Total 0 ml # Voids 3 3 # Bowel Movements 1 1 0 Imaging Last 24 hours Impressions Pelvis X-Ray 11/07/16 1355 Signed Impressions: Service Date/Time: Monday, November 07, 2016 13:34 - CONCLUSION: No acute disease. Behzad Finch Jr., MD Chest X-Ray 11/07/16 1355 Signed Impressions: Service Date/Time: Monday, November 07, 2016 13:34 - CONCLUSION: No acute disease. Jac Gonzales MD Objective Remarks RLE: Dressings clean and dry. intact. with full sensation and motor function. + exfix. pin sites. clean LLE: Wound VAC intact. Good seal. no sensation over medial foot. slight stiffness with dorsiflexion.CKS. slight drainage over distal aspect of graft. Assessment & Plan Assessment and Plan 1) Right Open Tibia Fracture s/p exfix revision with ORIF 2) Left Open Tibia Fracture s/p Soleus muscle flap with IMN and removal of exfix 3) left tibia plateau fracture treated nonoperatively 4) s/p vac change with collagen grafting -NWB BLE -pin care BID right leg -maintain vac left leg -plan for transition of vac to veraflow vac today at bedside. 3L bag of NS infused with 5g of vanc Jef Steve Dec 25, 2016 06:57
[2016-12-25 08:00] VITALS: BP 121/63; PULSE 97; RESP 16; TEMP 97.8; O2SAT 97
[2016-12-25] MEDS: REMOVE OLD LIDOCAINE PATCH T-DERMAL SCH (09:00)
[2016-12-25] MEDS: ENOXAPARIN SODIUM 40 MG/0.4 ML SYRINGE SQ SCH (09:46)
[2016-12-25] MEDS: FOLIC ACID 1 MG TAB PO SCH (09:47)
[2016-12-25] MEDS: NEOMYCIN/POLYMYXIN/BACITRACIN OINT 15 GM TUBE TOPICAL SCH (09:47)
[2016-12-25] MEDS: DOCUSATE SODIUM 50 MG/SENNA 8.6 MG TAB PO SCH ×2 (09:47→20:29)
[2016-12-25] MEDS: PROPRANOLOL HCL 10 MG TAB PO SCH ×2 (09:47→20:29)
[2016-12-25] MEDS: SODIUM CHLORIDE 0.9% FLUSH 10 ML FLUSH IV FLUSH SCH ×2 (09:47→20:30)
[2016-12-25] MEDS: LACTOBACILLUS ACIDOPHILUS TAB PO SCH ×3 (09:47→18:03)
[2016-12-25] MEDS: SUCRALFATE 1 GM/10 ML CUP PO SCH ×2 (09:47→20:30)
[2016-12-25] MEDS: CALCIUM/VITAMIN D 250 MG/125 U TAB PO SCH ×3 (09:47→18:04)
[2016-12-25] MEDS: GABAPENTIN 300 MG CAP PO SCH ×3 (09:47→18:04)
[2016-12-25] MEDS: PANTOPRAZOLE SOD 40 MG DELAYED RELEASE TAB PO SCH (09:47)
[2016-12-25] MEDS: THIAMINE HCL 100 MG TAB PO SCH (09:48)
[2016-12-25] MEDS: ASPIRIN 81 MG CHEW TAB CHEW SCH (09:48)
[2016-12-25] MEDS: MAGNESIUM HYDROXIDE SUSP 30 ML CUP PO PRN (09:54)
[2016-12-25 12:00] VITALS: BP 134/74; PULSE 96; RESP 18; TEMP 97.4; O2SAT 97
[2016-12-25 16:00] VITALS: BP 108/66; PULSE 61; RESP 18; TEMP 96.1; O2SAT 96
--- NOTE | 2016-12-25 16:43 | HHI.PR ---
Subjective Remarks Follow-up visit bilateral leg trauma, external fixator in place. Patient seen and examined today. Patient encountered in bed. Pt questioning why "all of you are wearing those damn things" (gowns). Informed pt of his MRSA status and the need for isolation precautions. Patient stated his tremors were not present today. Patient reported area of itching on his left leg. Otherwise pt has no acute medical complaints. Patient denies any fever, chills, N/V, chest pain, shortness of breath or abdominal pain. Per RN, no acute issues noted overnight or since start of shift. RN stated that she had explained to patient his MRSA status and was working to further educate him on this matter. Objective Vitals Vital Signs Date Time Temp Pulse Resp B/P (MAP) Pulse Ox O2 Delivery O2 Flow Rate FiO2 12/25/16 12:00 97.4 96 18 134/74 (94) 97 12/25/16 09:47 Room Air 12/25/16 08:00 97.8 97 16 121/63 (82) 97 12/25/16 00:41 98.4 71 18 102/57 (72) 96 12/24/16 20:58 97.8 76 18 119/56 (77) 96 I/O 12/24/16 12/24/16 12/24/16 12/25/16 12/25/16 12/25/16 06:59 14:59 22:59 06:59 14:59 22:59 Intake Total 480 ml 1000 ml 840 ml 480 ml 800 ml Output Total 0 ml 700 ml 300 ml 1200 ml 0 ml Balance 480 ml 300 ml 540 ml -720 ml 800 ml 0 ml Intake Oral 480 ml 1000 ml 840 ml 480 ml 800 ml Output Urine Total 700 ml 300 ml 1200 ml Drainage Total 0 ml 0 ml 0 ml # Voids 3 3 4 # Bowel Movements 1 1 0 0 1 Imaging Last Impressions Ankle X-Ray 12/17/16 0000 Signed Impressions: Service Date/Time: Saturday, December 17, 2016 10:13 - CONCLUSION: Intramedullary mariano in tibia. Severely comminuted fibular fracture. Arvind Flores MD FACR Gall Bladder Ultrasound 12/05/16 0000 Signed Impressions: Service Date/Time: Monday, December 05, 2016 08:38 - CONCLUSION: Unremarkable exam. Gallbladder is within normal limits with no evidence of cholelithiasis. Ronald Rao MD Abdomen X-Ray 12/04/16 0000 Signed Impressions: Service Date/Time: November 10:42 - CONCLUSION: Unremarkable bowel gas pattern. Ronald Rao MD Knee X-Ray 11/25/16 0000 Signed Impressions: Service Date/Time: Friday, November 25, 2016 06:44 - CONCLUSION: Post surgical changes are identified. Mumtaz Cornelius MD Tibia/Fibula X-Ray 11/24/16 0000 Signed Impressions: Service Date/Time: Thursday, November 24, 2016 10:06 - CONCLUSION: 1. Mildly displaced lateral tibial plateau fracture which is not clearly evident on the previous studies. 2. Otherwise stable left tibia status post ORIF. 3. Wound VAC remains in place. Dex Wild MD Chest X-Ray 11/20/16 0000 Signed Impressions: Service Date/Time: November 17:08 - CONCLUSION: 1. No acute abnormality or significant interval change. Sukhi Stevens MD Pelvis X-Ray 11/07/16 1355 Signed Impressions: Service Date/Time: Monday, November 07, 2016 13:34 - CONCLUSION: No acute disease. Behzad Finch Jr., MD Objective Remarks GENERAL: Pt sitting in his bed. Smiling.NAD SKIN: Warm and dry. HEAD: Normocephalic. EYES: No scleral icterus. No injection or drainage. NECK: Supple, trachea midline. No lymphadenopathy. CARDIOVASCULAR: Regular rate and rhythm without murmurs, gallops, or rubs. RESPIRATORY: Breath sounds equal bilaterally. No accessory muscle use. GASTROINTESTINAL: Abdomen soft, nondistended. Left lower quadrant tenderness elicited. MUSCULOSKELETAL: No cyanosis, or edema. Right leg ORIF. Slight tremor noted. PSYCHIATRIC: Alert and oriented x 3. No overt signs of depression/anxiety. Pleasant and cooperative. Procedures 1.s/p I&D with ex fix application bilateral tibias s/p wound vac application left tibia 2.With the assistance of RN, under sterile technique the avulsed skin of the right middle finger was clipped. No bleeding noted. Patient gave consent 3.Open reduction internal fixation of right distal tibia and fibula fractures Nonoperative treatment left tibial plateau fracture Irrigation and debridement of left tibia shaft fracture, removal external fixation, soleus muscle rotational flap, intramedullary nail fixation left tibia , application of wound VAC dressing 4.11/13 Irrigation and debridement of left tibia, application wound VAC dressing 5. 11/28 Irrigation and debridement of left open tibia fracture with application of wound VAC dressing 6. 12/01 wound vac change at the bedside 7. 12/05 wound vac change at the bedside 8. 12/08 wound vac change at the bedside 9. 12/09 I&D left tibia, application of wound VAC dressing and application of AlloMax allograft dermal matrix Medications and IVs Current Medications Medications (Trade) Dose Ordered Sig/Milagro Route Start Time Stop Time Status Last Admin (NS Flush) 2 ml UNSCH PRN IV FLUSH 11/07/16 14:30 12/11/16 11:31 (NS Flush) 2 ml BID IV FLUSH 11/07/16 21:00 12/17/16 21:19 (Zofran Inj) 4 mg Q6H PRN IV 11/07/16 14:30 12/04/16 06:13 (Narcan Inj) 0.4 mg UNSCH PRN IV 11/07/16 14:30 (Tylenol) 650 mg Q4H PRN PO 11/08/16 08:15 (Tums Chew) 1,000 mg TID PRN CHEW 11/08/16 08:15 12/06/16 08:52 (Vasotec Inj) 1.25 mg Q6H PRN IV 11/08/16 08:15 (Catapres) 0.1 mg Q6H PRN PO 11/08/16 08:15 (Aspirin Chew) 81 mg DAILY CHEW 11/08/16 12:45 12/25/16 09:48 (Prinivil) 25 mg DAILY PO 11/08/16 12:45 Future Hold 11/18/16 09:59 (Nitrostat Sl) 0.4 mg Q6HR PRN SL 11/08/16 12:45 (Protonix) 40 mg DAILY PO 11/08/16 12:45 12/25/16 09:47 (Pravachol) 80 mg HS PO 11/08/16 21:00 12/24/16 21:11 (Pill Splitter) 1 ea UNSCH PRN OTHER 11/08/16 12:45 (Elke-Colace) 1 tab BID PO 11/08/16 12:45 Future hold 12/25/16 09:47 (Vitamin B1) 100 mg DAILY PO 11/09/16 09:00 12/25/16 09:48 (Romazicon Inj) 0.2 mg Q1M PRN IV PUSH 11/08/16 13:00 (Haldol Inj) 2 mg Q15M PRN IM 11/08/16 13:00 (Neosporin Oint) 1 applic DAILY TOPICAL 11/10/16 09:00 12/24/16 09:00 (Milk Of Magnesia Liq) 30 ml HS PO 11/10/16 21:00 Future hold 12/23/16 21:38 (Oscal-D 250-125) 250 mg TID PO 11/10/16 13:00 12/25/16 13:50 (Duoneb Neb) 1 ampule Q4HR NEB PRN NEB 11/12/16 13:15 (Ambien) 5 mg HS PRN PO 11/14/16 11:00 12/13/16 23:44 (Desyrel) 100 mg HS PO 11/14/16 21:00 12/24/16 21:11 (Neurontin) 600 mg TID PO 11/16/16 13:00 12/25/16 13:50 ([place] 10-325 Mg) 1 tab Q4H PRN PO 11/20/16 00:45 12/23/16 08:58 (Compazine Inj) 10 mg Q8H PRN IV PUSH 11/25/16 16:15 11/25/16 18:00 (Milk Of Magnesia Liq) 30 ml Q12H PRN PO 11/28/16 11:30 12/25/16 09:54 (Senokot) 17.2 mg Q12H PRN PO 11/28/16 11:30 12/25/16 09:48 (Dulcolax Supp) 10 mg DAILY PRN RECTAL 11/28/16 11:30 12/11/16 12:30 (Folate) 1 mg DAILY PO 12/03/16 09:00 12/25/16 09:47 (Oramorph Sr) 30 mg Q8HR PO 12/03/16 14:00 12/25/16 13:50 (Lovenox Inj) 40 mg DAILY SQ 12/05/16 09:00 12/25/16 09:46 (Mag-Al Plus Susp Liq) 30 ml Q6HR PRN PO 12/04/16 18:00 12/06/16 08:52 (Aleks Daniels Oint) 1 applic UNSCH PRN TOPICAL 12/11/16 15:30 12/12/16 17:51 (Inderal) 10 mg Q12HR PO 12/13/16 21:00 12/25/16 09:47 (Baciguent Oint) 1 applic DAILY PRN TOPICAL 12/15/16 12:30 (Carafate Liq) 1 gm BID PO 12/16/16 21:00 12/30/16 20:59 12/25/16 09:47 (Lactinex) 1 tab TID PO 12/18/16 13:00 12/25/16 13:49 (Lidoderm 5% Patch.12 Hr) 1 patch HS T-DERMAL 12/19/16 21:00 12/21/16 21:09 Miscellaneous Information 1 Q24H T-DERMAL 12/20/16 09:00 12/24/16 09:00 ([place] 10-325 Mg) 2 tab Q4H PRN PO 12/23/16 18:45 12/25/16 15:45 Vancomycin HCl 5000 mg/Sodium Chloride 3,000 ml @ 10 mls/hr Q24H PRN IRRIGATION 12/25/16 08:00 Urinary Catheter: No A/P Problem List: (1) Fracture of tibia, left, open ICD Code: S82.202B - Unspecified fracture of shaft of left tibia, initial encounter for open fracture type I or II Status: Acute (2) Fracture of tibia, right, open ICD Code: S82.201B - Unspecified fracture of shaft of right tibia, initial encounter for open fracture type I or II Status: Acute (3) Hypotension ICD Code: I95.9 - Hypotension, unspecified Status: Acute (4) Right shoulder pain ICD Code: M25.511 - Pain in right shoulder Assessment and Plan 61-year-old male admitted secondary to bilateral leg trauma after car fell on his legs while he was working on. Open fractures were present bilaterally. Tremors: Absent at present. MRSA: Noted in left leg wound. ID consulted. Vancomycin ordered this morning. Constipation - Patient's diarrhea has resolved, no sample was able to be collected for C. difficile - Stool softeners resumed -noted to have 1-2 bowel movements per day. Bilateral open tibia-fibula fractures Left tibial plateau fracture - Open fractures have been surgically repaired, right side has external fixation - Continue wound VAC left leg as per orthopedic surgery recommendations. Undergoing serial wound vac changes per ortho. - left tibial plateau fracture treated nonoperatively - Pin care BID to right leg - NWB BLEs - Lortab dose when necessary, Oramorph 30mg every 8 hours. -Orthopedics increased [place] to 20 mg per administration. Acute blood loss anemia - Related to trauma vs post op blood loss - Status post transfusion of 2 units of packed red blood cells in 11/12/16. - on iron supplementation daily. Iron studies reviewed. - hemoglobin stable - monitor CBC as indicated Coronary artery disease with h/o previous CABG - Appears stable. Patient is asymptomatic. - Continue propranolol and statin - ASA 81mg daily - Clonidine PRN Hypertension - controlled - MARGIE inhibitor held due to hypotension. - Narcotics seem to have a depressive affect on this patient, however blood pressure has much improved after the patient was taken off IV morphine Diabetes mellitus type 2 - blood sugars well controlled Alcohol abuse Transaminitis, resolved - AST and ALT now within normal range. - Continue with daily thiamine and folic acid - Alcohol cessation recommended Tobacco abuse - Cessation recommended. Chronic essential tremor - Continue Propranolol at lower dose due to bradycardia with holding parameters, HR <55 GI prophylaxis: PPI DVT prophylaxis: Lovenox sq Discussed with patient, RN, and Dr. East Qualifiers (1) Fracture of tibia, left, open: (2) Fracture of tibia, right, open: (3) Hypotension: (4) Right shoulder pain: Qualified Codes: M25.511 - Pain in right shoulder; G89.29 - Other chronic pain Aurelio Patterson Jr. Dec 25, 2016 16:43
[2016-12-25] MEDS: LIDOCAINE HCL 5% PATCH T-DERMAL SCH (20:28)
[2016-12-25] MEDS: MAGNESIUM HYDROXIDE SUSP 30 ML CUP PO SCH (20:29)
[2016-12-25] MEDS: PRAVASTATIN SOD 80 MG TAB PO SCH (20:29)
[2016-12-25] MEDS: traZODone HCL 100 MG TAB PO SCH (20:29)
[2016-12-25 20:46] VITALS: BP 107/65; PULSE 61; RESP 18; TEMP 97.2; O2SAT 98
[2016-12-26] VITALS: BP 112/65; PULSE 67; RESP 18; TEMP 97; O2SAT 97
[2016-12-26] MEDS: MORPHINE SULFATE 30 MG CONTROLLED RELEASE TAB PO SCH ×3 (04:47→20:18)
[2016-12-26] MEDS: ACETAMINOPHEN/HYDROcodone 325 MG/10 MG TAB PO PRN ×4 (04:47→22:36)
[2016-12-26 08:00] VITALS: BP 132/68; PULSE 62; RESP 18; TEMP 96.4; O2SAT 96
[2016-12-26] MEDS: SUCRALFATE 1 GM/10 ML CUP PO SCH ×2 (10:04→20:18)
[2016-12-26] MEDS: PANTOPRAZOLE SOD 40 MG DELAYED RELEASE TAB PO SCH (10:05)
[2016-12-26] MEDS: PROPRANOLOL HCL 10 MG TAB PO SCH ×2 (10:05→20:18)
[2016-12-26] MEDS: ASPIRIN 81 MG CHEW TAB CHEW SCH (10:05)
[2016-12-26] MEDS: LACTOBACILLUS ACIDOPHILUS TAB PO SCH ×3 (10:05→17:57)
[2016-12-26] MEDS: ENOXAPARIN SODIUM 40 MG/0.4 ML SYRINGE SQ SCH (10:05)
[2016-12-26] MEDS: GABAPENTIN 300 MG CAP PO SCH ×3 (10:06→17:55)
[2016-12-26] MEDS: NEOMYCIN/POLYMYXIN/BACITRACIN OINT 15 GM TUBE TOPICAL SCH (10:06)
[2016-12-26] MEDS: CALCIUM/VITAMIN D 250 MG/125 U TAB PO SCH ×3 (10:06→17:55)
[2016-12-26] MEDS: FOLIC ACID 1 MG TAB PO SCH (10:06)
[2016-12-26] MEDS: ASCORBIC ACID 500 MG TAB PO SCH ×2 (10:06→20:18)
[2016-12-26] MEDS: REMOVE OLD LIDOCAINE PATCH T-DERMAL SCH (10:06)
[2016-12-26] MEDS: SODIUM CHLORIDE 0.9% FLUSH 10 ML FLUSH IV FLUSH SCH ×2 (10:06→20:19)
[2016-12-26] MEDS: THIAMINE HCL 100 MG TAB PO SCH (10:07)
[2016-12-26] MEDS: MAGNESIUM HYDROXIDE SUSP 30 ML CUP PO PRN (10:08)
[2016-12-26] MEDS: DOCUSATE SODIUM 50 MG/SENNA 8.6 MG TAB PO SCH ×2 (10:09→20:18)
[2016-12-26 12:00] VITALS: BP 147/61; PULSE 66; RESP 18; TEMP 97.3; O2SAT 97
--- NOTE | 2016-12-26 12:52 | PD.ORT.PN ---
Subjective Subjective Remarks s/p left tibia IMN and right tibia ORIF with exfix s/p left tibia soleus flap s/p left tibial plateau fracture doing well. pain controlled. ambulating with wheelchair. cultures yesterday came back positive or MRSA from wound on leg Objective Vitals Vital Signs Date Time Temp Pulse Resp B/P (MAP) Pulse Ox O2 Delivery O2 Flow Rate FiO2 12/26/16 08:00 96.4 62 18 132/68 (89) 96 12/26/16 00:00 97.0 67 18 112/65 (81) 97 12/25/16 20:46 97.2 61 18 107/65 (79) 98 12/25/16 16:00 96.1 61 18 108/66 (80) 96 I/O 12/25/16 12/25/16 12/25/16 12/26/16 12/26/16 12/26/16 07:00 15:00 23:00 07:00 15:00 23:00 Intake Total 480 ml 800 ml 480 ml 480 ml Output Total 1200 ml 675 ml 1000 ml Balance -720 ml 800 ml -195 ml -520 ml Intake Oral 480 ml 800 ml 480 ml 480 ml Output Urine Total 1200 ml 600 ml 1000 ml Drainage Total 0 ml 75 ml 0 ml # Voids 4 # Bowel Movements 0 1 0 0 Imaging Last 24 hours Impressions Pelvis X-Ray 11/07/16 1355 Signed Impressions: Service Date/Time: Monday, November 07, 2016 13:34 - CONCLUSION: No acute disease. Behzad Finch Jr., MD Chest X-Ray 11/07/16 1355 Signed Impressions: Service Date/Time: Monday, November 07, 2016 13:34 - CONCLUSION: No acute disease. Jac Gonzales MD Objective Remarks RLE: Dressings clean and dry. intact. with full sensation and motor function. + exfix. pin sites. clean LLE: Wound VAC intact. Good seal. no sensation over medial foot. slight stiffness with dorsiflexion.CKS. slight drainage over distal aspect of graft. Assessment & Plan Assessment and Plan 1) Right Open Tibia Fracture s/p exfix revision with ORIF 2) Left Open Tibia Fracture s/p Soleus muscle flap with IMN and removal of exfix 3) left tibia plateau fracture treated nonoperatively 4) s/p vac change with collagen grafting -NWB BLE -pin care BID right leg -veraflow vac placed on left leg -vac settings: -soak time: 3min -suction: 15min @ 100mmHg -maintain vac at all times -enough fluid in bag to last til approx late thu/ morning Jef Steve Dec 26, 2016 12:52
[2016-12-26] MEDS: FERROUS SULFATE 325 MG (65 MG ELEMENTAL IRON) TAB PO SCH ×2 (12:57→17:55)
--- NOTE | 2016-12-26 14:33 | HHI.IDPN ---
Subjective Subjective Remarks is a 61 y/o CM with PMHx of DM,HTN, Hard of hearing, CAD, s/p CABG who was brought in as a trauma alert. Patient was apparently working on his car and the car apparently slipped off the block and the car pinned the patient against a wall. He sustained bilateral open tibia fibula fractures. He has undergone multiple irrigation debridement procedures last one being on 11/13/16. Patient has had no fevers but leucocytosis which fluctuates. Infection workup is pending but clinically does not behave like infection or sepsis. He denies any complaints. He has undergone multiple debridements. ID was consulted as last culture grew MRSA. I d/w he is concerned that bone is exposed and there is deep infection. Overnight events reviewed with RN. No fevers No rash No diarrhea Started Vanco irrigation in wound vac. Antibiotics None Lines Line sites with no e.o infection Past Medical History reviewed Allergies: Coded Allergies: No Known Allergies (Unverified , 11/07/16) Objective . Vital Signs Date Time Temp Pulse Resp B/P (MAP) Pulse Ox O2 Delivery O2 Flow Rate FiO2 12/26/16 08:00 96.4 62 18 132/68 (89) 96 12/26/16 00:00 97.0 67 18 112/65 (81) 97 12/25/16 20:46 97.2 61 18 107/65 (79) 98 12/25/16 16:00 96.1 61 18 108/66 (80) 96 Imaging Last Impressions Ankle X-Ray 12/17/16 0000 Signed Impressions: Service Date/Time: Saturday, December 17, 2016 10:13 - CONCLUSION: Intramedullary mariano in tibia. Severely comminuted fibular fracture. Arvind Flores MD FACR Gall Bladder Ultrasound 12/05/16 0000 Signed Impressions: Service Date/Time: Monday, December 05, 2016 08:38 - CONCLUSION: Unremarkable exam. Gallbladder is within normal limits with no evidence of cholelithiasis. Ronald Rao MD Abdomen X-Ray 12/04/16 0000 Signed Impressions: Service Date/Time: November 10:42 - CONCLUSION: Unremarkable bowel gas pattern. Ronald Rao MD Knee X-Ray 11/25/16 0000 Signed Impressions: Service Date/Time: Friday, November 25, 2016 06:44 - CONCLUSION: Post surgical changes are identified. Mumtaz Cornelius MD Tibia/Fibula X-Ray 11/24/16 0000 Signed Impressions: Service Date/Time: Thursday, November 24, 2016 10:06 - CONCLUSION: 1. Mildly displaced lateral tibial plateau fracture which is not clearly evident on the previous studies. 2. Otherwise stable left tibia status post ORIF. 3. Wound VAC remains in place. Dex Wild MD Chest X-Ray 11/20/16 0000 Signed Impressions: Service Date/Time: November 17:08 - CONCLUSION: 1. No acute abnormality or significant interval change. Suhki Stevens MD Pelvis X-Ray 11/07/16 1355 Signed Impressions: Service Date/Time: Monday, November 07, 2016 13:34 - CONCLUSION: No acute disease. Behzad Finch Jr., MD Physical Exam GENERAL: This is a well-nourished, well-developed patient, in no apparent distress. SKIN: No rashes, ecchymoses or lesions. Cool and dry. HEAD: Atraumatic. Normocephalic. No temporal or scalp tenderness. EYES: Pupils equal round and reactive. Extraocular motions intact. No scleral icterus. No injection or drainage. ENT: Nose without bleeding, purulent drainage or septal hematoma. Throat without erythema, tonsillar hypertrophy or exudate. Uvula midline. Airway patent. NECK: Trachea midline. Supple, nontender, no meningeal signs. CARDIOVASCULAR: Regular rate and rhythm without murmurs, gallops, or rubs. RESPIRATORY: Clear to auscultation. Breath sounds equal bilaterally. No wheezes , rales, or rhonchi. GASTROINTESTINAL: Abdomen soft, non-tender, nondistended. MUSCULOSKELETAL: Right LE wound vac in place with vanco irrigation. NEUROLOGICAL: Awake and alert.Grossly non focal Psych: cooperative IV line sites with no e.o infection. Assessment & Plan Remarks MRSA in wound. Deep infection ? Osteomyelitis per dw Bilateral tibia fibular fractures s/p I&D. External fixator in right leg. wound vac in left leg. Recs Start Vanco IV (target 15-20) Weekly CBC with diff, CMP, to be followed by Hepas team. Vanco managed by pharmacy per targets above. Other ID MDs covering for me per call schedule till 12/30/16. Lauren Reyez MD Dec 26, 2016 14:33
[2016-12-26] MEDS ORDERED: Vancomycin Consult Pharmacy 1 EA OTHER SCH (14:45)
--- NOTE | 2016-12-26 16:06 | HHI.PR ---
Subjective Remarks Follow-up visit bilateral leg trauma, external fixator in place. Patient seen and examined today. Patient encountered in bed. Pt questioning "how I got that stuff (MRSA) on me?" Patient stated his tremors were "here for a little while this morning. They ain' t too bad now." Patient reported area of itching on his left leg had resolved with change of tape. He did not use Benadryl that had been ordered for him. Pt reported having history of being treated for iron deficiency and hemorrhoid bleeding. He denied presence of blood for the past two days. Otherwise pt has no acute medical complaints. Patient denies any fever, chills, N/V, chest pain, shortness of breath or abdominal pain. Per RN ([place]), no acute issues noted overnight or since start of shift. Objective Vitals Vital Signs Date Time Temp Pulse Resp B/P (MAP) Pulse Ox O2 Delivery O2 Flow Rate FiO2 12/26/16 08:00 96.4 62 18 132/68 (89) 96 12/26/16 00:00 97.0 67 18 112/65 (81) 97 12/25/16 20:46 97.2 61 18 107/65 (79) 98 12/25/16 16:00 96.1 61 18 108/66 (80) 96 I/O 12/25/16 12/25/16 12/25/16 12/26/16 12/26/16 12/26/16 06:59 14:59 22:59 06:59 14:59 22:59 Intake Total 480 ml 800 ml 480 ml 480 ml Output Total 1200 ml 675 ml 1000 ml Balance -720 ml 800 ml -195 ml -520 ml Intake Oral 480 ml 800 ml 480 ml 480 ml Output Urine Total 1200 ml 600 ml 1000 ml Drainage Total 0 ml 75 ml 0 ml # Voids 4 # Bowel Movements 0 1 0 0 Objective Remarks GENERAL: Pt sitting in his bed. Smiling.NAD SKIN: Warm and dry. HEAD: Normocephalic. EYES: No scleral icterus. No injection or drainage. NECK: Supple, trachea midline. No lymphadenopathy. CARDIOVASCULAR: Regular rate and rhythm without murmurs, gallops, or rubs. RESPIRATORY: Breath sounds equal bilaterally. No accessory muscle use. GASTROINTESTINAL: Abdomen soft, nondistended. Left lower quadrant tenderness elicited. MUSCULOSKELETAL: No cyanosis, or edema. Right leg ORIF. No tremor noted. PSYCHIATRIC: Alert and oriented x 3. No overt signs of depression/anxiety. Pleasant and cooperative. Procedures 1.s/p I&D with ex fix application bilateral tibias s/p wound vac application left tibia 2.With the assistance of RN, under sterile technique the avulsed skin of the right middle finger was clipped. No bleeding noted. Patient gave consent 3.Open reduction internal fixation of right distal tibia and fibula fractures Nonoperative treatment left tibial plateau fracture Irrigation and debridement of left tibia shaft fracture, removal external fixation, soleus muscle rotational flap, intramedullary nail fixation left tibia , application of wound VAC dressing 4.11/13 Irrigation and debridement of left tibia, application wound VAC dressing 5. 11/28 Irrigation and debridement of left open tibia fracture with application of wound VAC dressing 6. 12/01 wound vac change at the bedside 7. 12/05 wound vac change at the bedside 8. 12/08 wound vac change at the bedside 9. 12/09 I&D left tibia, application of wound VAC dressing and application of AlloMax allograft dermal matrix Medications and IVs Current Medications Medications (Trade) Dose Ordered Sig/Milagro Route Start Time Stop Time Status Last Admin (NS Flush) 2 ml UNSCH PRN IV FLUSH 11/07/16 14:30 12/11/16 11:31 (NS Flush) 2 ml BID IV FLUSH 11/07/16 21:00 12/17/16 21:19 (Zofran Inj) 4 mg Q6H PRN IV 11/07/16 14:30 12/04/16 06:13 (Narcan Inj) 0.4 mg UNSCH PRN IV 11/07/16 14:30 (Tylenol) 650 mg Q4H PRN PO 11/08/16 08:15 (Tums Chew) 1,000 mg TID PRN CHEW 11/08/16 08:15 12/06/16 08:52 (Vasotec Inj) 1.25 mg Q6H PRN IV 11/08/16 08:15 (Catapres) 0.1 mg Q6H PRN PO 11/08/16 08:15 (Aspirin Chew) 81 mg DAILY CHEW 11/08/16 12:45 12/26/16 10:05 (Prinivil) 25 mg DAILY PO 11/08/16 12:45 Future Hold 11/18/16 09:59 (Nitrostat Sl) 0.4 mg Q6HR PRN SL 11/08/16 12:45 (Protonix) 40 mg DAILY PO 11/08/16 12:45 12/26/16 10:05 (Pravachol) 80 mg HS PO 11/08/16 21:00 12/25/16 20:29 (Pill Splitter) 1 ea UNSCH PRN OTHER 11/08/16 12:45 (Elke-Colace) 1 tab BID PO 11/08/16 12:45 Future hold 12/26/16 10:09 (Vitamin B1) 100 mg DAILY PO 11/09/16 09:00 12/26/16 10:07 (Romazicon Inj) 0.2 mg Q1M PRN IV PUSH 11/08/16 13:00 (Haldol Inj) 2 mg Q15M PRN IM 11/08/16 13:00 (Neosporin Oint) 1 applic DAILY TOPICAL 11/10/16 09:00 12/24/16 09:00 (Milk Of Magnesia Liq) 30 ml HS PO 11/10/16 21:00 Future hold 12/25/16 20:29 (Oscal-D 250-125) 250 mg TID PO 11/10/16 13:00 12/26/16 12:57 (Duoneb Neb) 1 ampule Q4HR NEB PRN NEB 11/12/16 13:15 (Ambien) 5 mg HS PRN PO 11/14/16 11:00 12/13/16 23:44 (Desyrel) 100 mg HS PO 11/14/16 21:00 12/25/16 20:29 (Neurontin) 600 mg TID PO 11/16/16 13:00 12/26/16 12:57 ([place] 10-325 Mg) 1 tab Q4H PRN PO 11/20/16 00:45 12/23/16 08:58 (Compazine Inj) 10 mg Q8H PRN IV PUSH 11/25/16 16:15 11/25/16 18:00 (Milk Of Magnesia Liq) 30 ml Q12H PRN PO 11/28/16 11:30 12/26/16 10:08 (Senokot) 17.2 mg Q12H PRN PO 11/28/16 11:30 12/25/16 09:48 (Dulcolax Supp) 10 mg DAILY PRN RECTAL 11/28/16 11:30 12/11/16 12:30 (Folate) 1 mg DAILY PO 12/03/16 09:00 12/26/16 10:06 (Oramorph Sr) 30 mg Q8HR PO 12/03/16 14:00 12/26/16 14:24 (Lovenox Inj) 40 mg DAILY SQ 12/05/16 09:00 12/26/16 10:05 (Mag-Al Plus Susp Liq) 30 ml Q6HR PRN PO 12/04/16 18:00 12/06/16 08:52 (Aleks Daniels Oint) 1 applic UNSCH PRN TOPICAL 12/11/16 15:30 12/12/16 17:51 (Inderal) 10 mg Q12HR PO 12/13/16 21:00 12/26/16 10:05 (Baciguent Oint) 1 applic DAILY PRN TOPICAL 12/15/16 12:30 (Carafate Liq) 1 gm BID PO 12/16/16 21:00 12/30/16 20:59 12/26/16 10:04 (Lactinex) 1 tab TID PO 12/18/16 13:00 12/26/16 12:57 (Lidoderm 5% Patch.12 Hr) 1 patch HS T-DERMAL 12/19/16 21:00 12/21/16 21:09 Miscellaneous Information 1 Q24H T-DERMAL 12/20/16 09:00 12/24/16 09:00 ([place] 10-325 Mg) 2 tab Q4H PRN PO 12/23/16 18:45 12/26/16 10:08 Vancomycin HCl 5000 mg/Sodium Chloride 3,000 ml @ 10 mls/hr Q24H PRN IRRIGATION 12/25/16 08:00 (Benadryl) 12.5 mg Q4H PRN PO 12/25/16 16:45 (Ferrous Sulfate) 325 mg BID@,17 PO 12/26/16 12:00 12/26/16 12:57 (Vitamin C) 500 mg BID PO 12/26/16 09:00 12/26/16 10:06 Pharmacy Profile Note 0 ml @ 0 mls/hr UNSCH OTHER 12/26/16 14:45 Vancomycin HCl 1500 mg/Sodium Chloride 515 ml @ 257.5 mls/ hr Q12H IV 12/26/16 17:00 Miscellaneous Information SPECIFIC LAB TO BE .. ONCE ONCE .XX 12/28/16 04:45 12/28/16 04:46 Urinary Catheter: No A/P Problem List: (1) Fracture of tibia, left, open ICD Code: S82.202B - Unspecified fracture of shaft of left tibia, initial encounter for open fracture type I or II Status: Acute (2) Fracture of tibia, right, open ICD Code: S82.201B - Unspecified fracture of shaft of right tibia, initial encounter for open fracture type I or II Status: Acute (3) Hypotension ICD Code: I95.9 - Hypotension, unspecified Status: Acute (4) Right shoulder pain ICD Code: M25.511 - Pain in right shoulder Assessment and Plan 61-year-old male admitted secondary to bilateral leg trauma after car fell on his legs while he was working on. Open fractures were present bilaterally. Tremors: Absent at present. MRSA: ID consulted for reported MRSA of left leg. Awaiting their input. Iron deficiency: Supplementation initiated. labs ordered for AM. Constipation - Patient's diarrhea has resolved, no sample was able to be collected for C. difficile - Stool softeners resumed -noted to have 1-2 bowel movements per day. Bilateral open tibia-fibula fractures Left tibial plateau fracture - Open fractures have been surgically repaired, right side has external fixation - Continue wound VAC left leg as per orthopedic surgery recommendations. Undergoing serial wound vac changes per ortho. - left tibial plateau fracture treated nonoperatively - Pin care BID to right leg - NWB BLEs - Lortab dose when necessary, Oramorph 30mg every 8 hours. -Orthopedics increased [place] to 20 mg per administration. Acute blood loss anemia - Related to trauma vs post op blood loss - Status post transfusion of 2 units of packed red blood cells in 11/12/16. - on iron supplementation daily. Iron studies reviewed. - hemoglobin stable - monitor CBC as indicated Coronary artery disease with h/o previous CABG - Appears stable. Patient is asymptomatic. - Continue propranolol and statin - ASA 81mg daily - Clonidine PRN Hypertension - controlled - MARGIE inhibitor held due to hypotension. - Narcotics seem to have a depressive affect on this patient, however blood pressure has much improved after the patient was taken off IV morphine Diabetes mellitus type 2 - blood sugars well controlled Alcohol abuse Transaminitis, resolved - AST and ALT now within normal range. - Continue with daily thiamine and folic acid - Alcohol cessation recommended Tobacco abuse - Cessation recommended. Chronic essential tremor - Continue Propranolol at lower dose due to bradycardia with holding parameters, HR <55 GI prophylaxis: PPI DVT prophylaxis: Lovenox sq Discussed with patient, RN, and Dr. East Qualifiers (1) Fracture of tibia, left, open: (2) Fracture of tibia, right, open: (3) Hypotension: (4) Right shoulder pain: Qualified Codes: M25.511 - Pain in right shoulder; G89.29 - Other chronic pain Aurelio Patterson Jr. Dec 26, 2016 16:05
[2016-12-26] MEDS ORDERED: VANCOMYCIN 1,500 MG/NS 500 ML IV SCH ×2 (17:00)
[2016-12-26 17:23] LABS: BICARBONATE 30.7 MEQ/L (21.0-32.0); POTASSIUM 3.9 MEQ/L (3.5-5.1)
[2016-12-26] MEDS: PRAVASTATIN SOD 80 MG TAB PO SCH (20:18)
[2016-12-26] MEDS: MAGNESIUM HYDROXIDE SUSP 30 ML CUP PO SCH (20:18)
[2016-12-26] MEDS: traZODone HCL 100 MG TAB PO SCH (20:18)
[2016-12-26] MEDS: LIDOCAINE HCL 5% PATCH T-DERMAL SCH (20:18)
[2016-12-26 20:41] VITALS: BP 110/73; PULSE 72; RESP 18; TEMP 98.4; O2SAT 98
[2016-12-26] MEDS: diphenhydrAMINE HCL 25 MG CAP PO PRN (22:41)
[2016-12-27 00:42] VITALS: BP 102/61; PULSE 76; RESP 18; TEMP 97.9; O2SAT 98
[2016-12-27] MEDS: MORPHINE SULFATE 30 MG CONTROLLED RELEASE TAB PO SCH ×3 (05:44→20:54)
[2016-12-27 08:00] VITALS: BP 116/64; PULSE 77; RESP 18; TEMP 98.2; O2SAT 96
[2016-12-27] MEDS: VANCOMYCIN 1,500 MG/NS 500 ML IV SCH ×4 (08:00→20:03)
[2016-12-27] MEDS: ASCORBIC ACID 500 MG TAB PO SCH ×2 (08:39→20:01)
[2016-12-27] MEDS: ASPIRIN 81 MG CHEW TAB CHEW SCH (08:39)
[2016-12-27] MEDS: PROPRANOLOL HCL 10 MG TAB PO SCH ×2 (08:39→20:01)
[2016-12-27] MEDS: LACTOBACILLUS ACIDOPHILUS TAB PO SCH ×3 (08:39→17:49)
[2016-12-27] MEDS: CALCIUM/VITAMIN D 250 MG/125 U TAB PO SCH ×3 (08:39→17:50)
[2016-12-27] MEDS: DOCUSATE SODIUM 50 MG/SENNA 8.6 MG TAB PO SCH ×2 (08:39→20:01)
[2016-12-27] MEDS: GABAPENTIN 300 MG CAP PO SCH ×3 (08:39→17:49)
[2016-12-27] MEDS: THIAMINE HCL 100 MG TAB PO SCH (08:39)
[2016-12-27] MEDS: SUCRALFATE 1 GM/10 ML CUP PO SCH ×2 (08:40→20:01)
[2016-12-27] MEDS: ACETAMINOPHEN/HYDROcodone 325 MG/10 MG TAB PO PRN ×4 (08:40→22:34)
[2016-12-27] MEDS: PANTOPRAZOLE SOD 40 MG DELAYED RELEASE TAB PO SCH (08:40)
[2016-12-27] MEDS: FOLIC ACID 1 MG TAB PO SCH (08:40)
[2016-12-27] MEDS: ENOXAPARIN SODIUM 40 MG/0.4 ML SYRINGE SQ SCH (08:48)
[2016-12-27] MEDS: REMOVE OLD LIDOCAINE PATCH T-DERMAL SCH (09:00)
[2016-12-27] MEDS: SODIUM CHLORIDE 0.9% FLUSH 10 ML FLUSH IV FLUSH SCH ×2 (09:00→20:03)
[2016-12-27] MEDS: NEOMYCIN/POLYMYXIN/BACITRACIN OINT 15 GM TUBE TOPICAL SCH (09:00)
[2016-12-27 10:11] LABS: HEMATOCRIT 34.1 % (39.0-51.0); MEAN CELL VOLUME 92.3 FL (80.0-100.0); MEAN CORPUSCULAR HEMOGLOBIN 30.4 PG (27.0-34.0); PLATELET COUNT 203 TH/MM3 (150-450); RED BLOOD COUNT 3.69 MIL/MM3 (4.50-5.90); RED CELL DISTRIBUTION WIDTH 13.2 % (11.6-17.2); REVIEW FLAG FINAL; WHITE BLOOD COUNT 10.6 TH/MM3 (4.0-11.0)
[2016-12-27 10:39] LABS: BICARBONATE 28.6 MEQ/L (21.0-32.0); POTASSIUM 4.1 MEQ/L (3.5-5.1)
[2016-12-27 12:00] VITALS: BP 111/63; PULSE 72; RESP 18; TEMP 98.1; O2SAT 95
[2016-12-27] MEDS: FERROUS SULFATE 325 MG (65 MG ELEMENTAL IRON) TAB PO SCH ×2 (12:54→17:49)
[2016-12-27 16:00] VITALS: BP 104/62; PULSE 72; RESP 18; TEMP 98.1; O2SAT 99
--- NOTE | 2016-12-27 16:28 | HHI.PR ---
Subjective Remarks Follow-up visit bilateral leg trauma, external fixator in place. Patient seen and examined today. Patient encountered in bed. Patient reported significant left foot pain associated with a loose bone screw in the ORIF device. Patient reported loosening of the screw occurred overnight and experienced "a hell of a lot of pain whenever I move my foot". Patient reported itching associated with vancomycin administration in an IV line. He stated he did not have the same effect with the vancomycin administered through his wound VAC and fluids. Pt reported having tremors this morning before morning propranolol. He stated he did not recall if he had tremors late in the day or overnight. Otherwise pt has no acute medical complaints. Patient denies any fever, chills, N/V, chest pain, shortness of breath or abdominal pain. Per RN ([place]), patient is having foot pain as noted above. Otherwise, no acute issues noted overnight or since start of shift. Objective Vitals Vital Signs Date Time Temp Pulse Resp B/P (MAP) Pulse Ox O2 Delivery O2 Flow Rate FiO2 12/27/16 08:00 98.2 77 18 116/64 (81) 96 12/27/16 00:42 97.9 76 18 102/61 (75) 98 12/26/16 20:41 98.4 72 18 110/73 (85) 98 I/O 12/26/16 12/26/16 12/26/16 12/27/16 12/27/16 12/27/16 06:59 14:59 22:59 06:59 14:59 22:59 Intake Total 480 ml 800 ml 360 ml 995 ml Output Total 1000 ml 800 ml 700 ml 1050 ml Balance -520 ml 0 ml -340 ml -55 ml Intake Oral 480 ml 800 ml 360 ml 480 ml IV Total 515 ml Output Urine Total 1000 ml 800 ml 600 ml 700 ml Drainage Total 0 ml 100 ml 350 ml # Bowel Movements 0 1 0 0 Result Diagram: 12/27/16 1001 12/27/16 1001 Imaging Last Impressions Ankle X-Ray 12/17/16 0000 Signed Impressions: Service Date/Time: Saturday, December 17, 2016 10:13 - CONCLUSION: Intramedullary mariano in tibia. Severely comminuted fibular fracture. Arvind Flores MD FACR Gall Bladder Ultrasound 12/05/16 0000 Signed Impressions: Service Date/Time: Monday, December 05, 2016 08:38 - CONCLUSION: Unremarkable exam. Gallbladder is within normal limits with no evidence of cholelithiasis. Ronald Rao MD Abdomen X-Ray 12/04/16 0000 Signed Impressions: Service Date/Time: November 10:42 - CONCLUSION: Unremarkable bowel gas pattern. Ronald Rao MD Knee X-Ray 11/25/16 0000 Signed Impressions: Service Date/Time: Friday, November 25, 2016 06:44 - CONCLUSION: Post surgical changes are identified. Mumtaz Cornelius MD Tibia/Fibula X-Ray 11/24/16 0000 Signed Impressions: Service Date/Time: Thursday, November 24, 2016 10:06 - CONCLUSION: 1. Mildly displaced lateral tibial plateau fracture which is not clearly evident on the previous studies. 2. Otherwise stable left tibia status post ORIF. 3. Wound VAC remains in place. Dex Wild MD Chest X-Ray 11/20/16 0000 Signed Impressions: Service Date/Time: November 17:08 - CONCLUSION: 1. No acute abnormality or significant interval change. Sukih Stevens MD Pelvis X-Ray 11/07/16 1355 Signed Impressions: Service Date/Time: Monday, November 07, 2016 13:34 - CONCLUSION: No acute disease. Behzad Finch Jr., MD Objective Remarks GENERAL: Pt laying in his bed. Mild distress when pt moves his right foot. None noted when pt is at rest. SKIN: Warm and dry. Right foot slightly swollen. HEAD: Normocephalic. EYES: No scleral icterus. No injection or drainage. NECK: Supple, trachea midline. No lymphadenopathy. CARDIOVASCULAR: Regular rate and rhythm without murmurs, gallops, or rubs. RESPIRATORY: Breath sounds equal bilaterally. No accessory muscle use. GASTROINTESTINAL: Abdomen soft, nondistended. Left lower quadrant tenderness elicited. MUSCULOSKELETAL: No cyanosis, or edema. Right leg ORIF. No tremor noted. PSYCHIATRIC: Alert and oriented x 3. No overt signs of depression/anxiety. Pleasant and cooperative. Procedures 1.s/p I&D with ex fix application bilateral tibias s/p wound vac application left tibia 2.With the assistance of RN, under sterile technique the avulsed skin of the right middle finger was clipped. No bleeding noted. Patient gave consent 3.Open reduction internal fixation of right distal tibia and fibula fractures Nonoperative treatment left tibial plateau fracture Irrigation and debridement of left tibia shaft fracture, removal external fixation, soleus muscle rotational flap, intramedullary nail fixation left tibia , application of wound VAC dressing 4.11/13 Irrigation and debridement of left tibia, application wound VAC dressing 5. 11/28 Irrigation and debridement of left open tibia fracture with application of wound VAC dressing 6. 12/01 wound vac change at the bedside 7. 12/05 wound vac change at the bedside 8. 12/08 wound vac change at the bedside 9. 12/09 I&D left tibia, application of wound VAC dressing and application of AlloMax allograft dermal matrix Medications and IVs Current Medications Medications (Trade) Dose Ordered Sig/Milagro Route Start Time Stop Time Status Last Admin (NS Flush) 2 ml UNSCH PRN IV FLUSH 11/07/16 14:30 12/11/16 11:31 (NS Flush) 2 ml BID IV FLUSH 11/07/16 21:00 12/26/16 20:19 (Zofran Inj) 4 mg Q6H PRN IV 11/07/16 14:30 12/04/16 06:13 (Narcan Inj) 0.4 mg UNSCH PRN IV 11/07/16 14:30 (Tylenol) 650 mg Q4H PRN PO 11/08/16 08:15 (Tums Chew) 1,000 mg TID PRN CHEW 11/08/16 08:15 12/06/16 08:52 (Vasotec Inj) 1.25 mg Q6H PRN IV 11/08/16 08:15 (Catapres) 0.1 mg Q6H PRN PO 11/08/16 08:15 (Aspirin Chew) 81 mg DAILY CHEW 11/08/16 12:45 12/27/16 08:39 (Prinivil) 25 mg DAILY PO 11/08/16 12:45 Future Hold 11/18/16 09:59 (Nitrostat Sl) 0.4 mg Q6HR PRN SL 11/08/16 12:45 (Protonix) 40 mg DAILY PO 11/08/16 12:45 12/27/16 08:40 (Pravachol) 80 mg HS PO 11/08/16 21:00 12/26/16 20:18 (Pill Splitter) 1 ea UNSCH PRN OTHER 11/08/16 12:45 (Elke-Colace) 1 tab BID PO 11/08/16 12:45 Future hold 12/27/16 08:39 (Vitamin B1) 100 mg DAILY PO 11/09/16 09:00 12/27/16 08:39 (Romazicon Inj) 0.2 mg Q1M PRN IV PUSH 11/08/16 13:00 (Haldol Inj) 2 mg Q15M PRN IM 11/08/16 13:00 (Neosporin Oint) 1 applic DAILY TOPICAL 11/10/16 09:00 12/24/16 09:00 (Milk Of Magnesia Liq) 30 ml HS PO 11/10/16 21:00 Future hold 12/26/16 20:18 (Oscal-D 250-125) 250 mg TID PO 11/10/16 13:00 12/27/16 12:55 (Duoneb Neb) 1 ampule Q4HR NEB PRN NEB 11/12/16 13:15 (Ambien) 5 mg HS PRN PO 11/14/16 11:00 12/13/16 23:44 (Desyrel) 100 mg HS PO 11/14/16 21:00 12/26/16 20:18 (Neurontin) 600 mg TID PO 11/16/16 13:00 12/27/16 12:54 ([place] 10-325 Mg) 1 tab Q4H PRN PO 11/20/16 00:45 12/23/16 08:58 (Compazine Inj) 10 mg Q8H PRN IV PUSH 11/25/16 16:15 11/25/16 18:00 (Milk Of Magnesia Liq) 30 ml Q12H PRN PO 11/28/16 11:30 12/26/16 10:08 (Senokot) 17.2 mg Q12H PRN PO 11/28/16 11:30 12/25/16 09:48 (Dulcolax Supp) 10 mg DAILY PRN RECTAL 11/28/16 11:30 12/11/16 12:30 (Folate) 1 mg DAILY PO 12/03/16 09:00 12/27/16 08:40 (Oramorph Sr) 30 mg Q8HR PO 12/03/16 14:00 12/27/16 12:55 (Lovenox Inj) 40 mg DAILY SQ 12/05/16 09:00 12/27/16 08:48 (Mag-Al Plus Susp Liq) 30 ml Q6HR PRN PO 12/04/16 18:00 12/06/16 08:52 (Aleks Daniels Oint) 1 applic UNSCH PRN TOPICAL 12/11/16 15:30 12/12/16 17:51 (Inderal) 10 mg Q12HR PO 12/13/16 21:00 12/27/16 08:39 (Baciguent Oint) 1 applic DAILY PRN TOPICAL 12/15/16 12:30 (Carafate Liq) 1 gm BID PO 12/16/16 21:00 12/30/16 20:59 12/27/16 08:40 (Lactinex) 1 tab TID PO 12/18/16 13:00 12/27/16 12:54 (Lidoderm 5% Patch.12 Hr) 1 patch HS T-DERMAL 12/19/16 21:00 12/21/16 21:09 Miscellaneous Information 1 Q24H T-DERMAL 12/20/16 09:00 12/24/16 09:00 ([place] 10-325 Mg) 2 tab Q4H PRN PO 12/23/16 18:45 12/27/16 12:54 Vancomycin HCl 5000 mg/Sodium Chloride 3,000 ml @ 10 mls/hr Q24H PRN IRRIGATION 12/25/16 08:00 (Benadryl) 12.5 mg Q4H PRN PO 12/25/16 16:45 12/26/16 22:41 (Ferrous Sulfate) 325 mg BID@12,17 PO 12/26/16 12:00 12/27/16 12:54 (Vitamin C) 500 mg BID PO 12/26/16 09:00 12/27/16 08:39 Pharmacy Profile Note 0 ml @ 0 mls/hr UNSCH OTHER 12/26/16 14:45 Vancomycin HCl 1500 mg/Sodium Chloride 515 ml @ 257.5 mls/ hr Q12H IV 12/27/16 08:00 12/27/16 08:00 Miscellaneous Information SPECIFIC LAB TO BE LEANNA... ONCE ONCE .XX 12/28/16 07:45 12/28/16 07:46 Urinary Catheter: No A/P Problem List: (1) Fracture of tibia, left, open ICD Code: S82.202B - Unspecified fracture of shaft of left tibia, initial encounter for open fracture type I or II Status: Acute (2) Fracture of tibia, right, open ICD Code: S82.201B - Unspecified fracture of shaft of right tibia, initial encounter for open fracture type I or II Status: Acute (3) Hypotension ICD Code: I95.9 - Hypotension, unspecified Status: Acute (4) Right shoulder pain ICD Code: M25.511 - Pain in right shoulder Assessment and Plan 61-year-old male admitted secondary to bilateral leg trauma after car fell on his legs while he was working on. Open fractures were present bilaterally. MRSA: ID consulted for reported MRSA of left leg. Awaiting their input. Iron deficiency: Supplementation initiated. labs indicated slight improvement noted. Right foot pain: xray ordered. Constipation - Patient's diarrhea has resolved, no sample was able to be collected for C. difficile - Stool softeners resumed -noted to have 1-2 bowel movements per day. Bilateral open tibia-fibula fractures Left tibial plateau fracture - Open fractures have been surgically repaired, right side has external fixation - Continue wound VAC left leg as per orthopedic surgery recommendations. Undergoing serial wound vac changes per ortho. - left tibial plateau fracture treated nonoperatively - Pin care BID to right leg - NWB BLEs - Lortab dose when necessary, Oramorph 30mg every 8 hours. -Orthopedics increased [place] to 20 mg per administration. Acute blood loss anemia - Related to trauma vs post op blood loss - Status post transfusion of 2 units of packed red blood cells in 11/12/16. - on iron supplementation daily. Iron studies reviewed. - hemoglobin stable - monitor CBC as indicated Coronary artery disease with h/o previous CABG - Appears stable. Patient is asymptomatic. - Continue propranolol and statin - ASA 81mg daily - Clonidine PRN Hypertension - controlled - MARGIE inhibitor held due to hypotension. - Narcotics seem to have a depressive affect on this patient, however blood pressure has much improved after the patient was taken off IV morphine Diabetes mellitus type 2 - blood sugars well controlled Alcohol abuse Transaminitis, resolved - AST and ALT now within normal range. - Continue with daily thiamine and folic acid - Alcohol cessation recommended Tobacco abuse - Cessation recommended. Chronic essential tremor - Continue Propranolol at lower dose due to bradycardia with holding parameters, HR <55 GI prophylaxis: PPI DVT prophylaxis: Lovenox sq Discussed with patient, RN, and Dr. Olsno Problem Qualifiers (1) Fracture of tibia, left, open: (2) Fracture of tibia, right, open: (3) Hypotension: (4) Right shoulder pain: Qualified Codes: M25.511 - Pain in right shoulder; G89.29 - Other chronic pain Aurelio Patterson Jr. Dec 27, 2016 16:27
--- NOTE | 2016-12-27 17:37 | RADRPT ---
EXAM DATE/TIME: 12/27/2016 16:50 [facility] COMPARISON: ANKLE RIGHT COMPLETE ([id number]), December 17, 2016, 10:16. INDICATIONS : Right foot pain. MEDICAL HISTORY : None. SURGICAL HISTORY : ORIF and ex-fix right ankle. ENCOUNTER: Subsequent ACUITY: 2 weeks PAIN SCORE: 10/10 LOCATION: Right foot. FINDINGS: 2 views right foot. External fixator pin is seen in the great toe metatarsal shaft. Longitudinal inte rnal fixation screw in the distal fibula. 2 transverse screws in the distal tibia. Distal tibia and f ibula fractures again noted. No significant interval change at the fracture sites. 1 mm thick bone corinna cency is seen adjacent to the metatarsal pin. CONCLUSION: Distal tibia and fibula fractures with internal fixation hardware. Samir Massey MD on December 27, 2016 at 17:33 Board Certified Radiologist. This report was verified electronically.
[2016-12-27] MEDS: traZODone HCL 100 MG TAB PO SCH (20:01)
[2016-12-27] MEDS: PRAVASTATIN SOD 80 MG TAB PO SCH (20:01)
[2016-12-27] MEDS: diphenhydrAMINE HCL 25 MG CAP PO PRN (20:01)
[2016-12-27] MEDS: MAGNESIUM HYDROXIDE SUSP 30 ML CUP PO SCH (20:01)
[2016-12-27] MEDS: LIDOCAINE HCL 5% PATCH T-DERMAL SCH (20:03)
[2016-12-27 23:25] VITALS: BP_SYST 111; BP_SYST 116; BP_DIAS 68; BP_DIAS 80; PULSE 75; PULSE 83; RESP 17; TEMP 97.9; TEMP 98.8; O2SAT 97; O2SAT 98
[2016-12-28] MEDS: MORPHINE SULFATE 30 MG CONTROLLED RELEASE TAB PO SCH ×3 (04:05→21:12)
[2016-12-28] MEDS: ACETAMINOPHEN/HYDROcodone 325 MG/10 MG TAB PO PRN ×5 (04:05→21:12)
[2016-12-28 04:25] VITALS: BP 100/64; PULSE 70; RESP 17; TEMP 97.3; O2SAT 96
[2016-12-28] MEDS ORDERED: PHARMACY ORDERED LAB ONE ×2 (04:45→07:45)
[2016-12-28] MEDS: DOCUSATE SODIUM 50 MG/SENNA 8.6 MG TAB PO SCH ×2 (07:53→20:19)
[2016-12-28] MEDS: THIAMINE HCL 100 MG TAB PO SCH (07:53)
[2016-12-28] MEDS: ENOXAPARIN SODIUM 40 MG/0.4 ML SYRINGE SQ SCH (07:53)
[2016-12-28] MEDS: LACTOBACILLUS ACIDOPHILUS TAB PO SCH ×3 (07:53→17:05)
[2016-12-28] MEDS: ASCORBIC ACID 500 MG TAB PO SCH ×2 (07:53→20:19)
[2016-12-28] MEDS: PROPRANOLOL HCL 10 MG TAB PO SCH ×2 (07:53→20:19)
[2016-12-28] MEDS: GABAPENTIN 300 MG CAP PO SCH ×3 (07:53→17:05)
[2016-12-28] MEDS: SUCRALFATE 1 GM/10 ML CUP PO SCH ×2 (07:53→20:19)
[2016-12-28] MEDS: FOLIC ACID 1 MG TAB PO SCH (07:54)
[2016-12-28] MEDS: ASPIRIN 81 MG CHEW TAB CHEW SCH (07:54)
[2016-12-28] MEDS: SODIUM CHLORIDE 0.9% FLUSH 10 ML FLUSH IV FLUSH SCH ×2 (07:54→20:19)
[2016-12-28] MEDS: CALCIUM/VITAMIN D 250 MG/125 U TAB PO SCH ×3 (07:54→17:06)
[2016-12-28] MEDS: PANTOPRAZOLE SOD 40 MG DELAYED RELEASE TAB PO SCH (07:54)
[2016-12-28] MEDS: diphenhydrAMINE HCL 25 MG CAP PO PRN (07:54)
[2016-12-28 08:00] VITALS: BP 134/69; PULSE 58; RESP 18; TEMP 97.5; O2SAT 98
[2016-12-28] MEDS: NEOMYCIN/POLYMYXIN/BACITRACIN OINT 15 GM TUBE TOPICAL SCH (09:00)
[2016-12-28] MEDS: REMOVE OLD LIDOCAINE PATCH T-DERMAL SCH (09:00)
[2016-12-28] MEDS: VANCOMYCIN 1,500 MG/NS 500 ML IV SCH ×4 (09:30→20:19)
[2016-12-28 12:00] VITALS: BP 112/57; PULSE 71; RESP 18; TEMP 96.5; O2SAT 99
[2016-12-28] MEDS: FERROUS SULFATE 325 MG (65 MG ELEMENTAL IRON) TAB PO SCH ×2 (12:25→17:06)
--- NOTE | 2016-12-28 13:49 | HHI.PR ---
Subjective Remarks Follow-up for infection Patient complaining about not getting enough Benadryl when he is given vancomycin. Otherwise he stated that he wants the external fixator out. He has no other complaints. Dealt with patient's nurse. Patient's tech was at the bedside during the interview. Objective Vitals Vital Signs Date Time Temp Pulse Resp B/P (MAP) Pulse Ox O2 Delivery O2 Flow Rate FiO2 12/28/16 12:00 96.5 71 18 112/57 (75) 99 12/28/16 08:00 97.5 58 18 134/69 (90) 98 12/28/16 04:25 97.3 70 17 100/64 (76) 96 12/27/16 23:25 97.9 83 17 111/80 (90) 98 12/27/16 23:25 98.8 75 17 116/68 (84) 97 12/27/16 16:00 98.1 72 18 104/62 (76) 99 I/O 12/27/16 12/27/16 12/27/16 12/28/16 12/28/16 12/28/16 06:59 14:59 22:59 06:59 14:59 22:59 Intake Total 995 ml 1475 ml 995 ml 480 ml Output Total 1050 ml 875 ml 750 ml Balance -55 ml 1475 ml 120 ml -270 ml Intake Oral 480 ml 960 ml 480 ml 480 ml IV Total 515 ml 515 ml 515 ml Output Urine Total 700 ml 700 ml 400 ml Drainage Total 350 ml 175 ml 350 ml # Voids 5 # Bowel Movements 0 1 1 0 Result Diagram: 12/27/16 1001 12/27/16 1001 Objective Remarks GENERAL: Pt laying in his bed in no distress. CARDIOVASCULAR: Regular rate and rhythm without murmurs, gallops, or rubs. RESPIRATORY: Breath sounds equal bilaterally. No accessory muscle use. GASTROINTESTINAL: Abdomen soft, nondistended. Left lower quadrant tenderness elicited. MUSCULOSKELETAL: No cyanosis, or edema. Right leg ORIF. No tremor noted. Right with external fixator placed. There is erythema on the lower part of his ankle. An around some of the equipment. PSYCHIATRIC: Alert and oriented x 3. Procedures 1.s/p I&D with ex fix application bilateral tibias s/p wound vac application left tibia 2.With the assistance of RN, under sterile technique the avulsed skin of the right middle finger was clipped. No bleeding noted. Patient gave consent 3.Open reduction internal fixation of right distal tibia and fibula fractures Nonoperative treatment left tibial plateau fracture Irrigation and debridement of left tibia shaft fracture, removal external fixation, soleus muscle rotational flap, intramedullary nail fixation left tibia , application of wound VAC dressing 4.11/13 Irrigation and debridement of left tibia, application wound VAC dressing 5. 11/28 Irrigation and debridement of left open tibia fracture with application of wound VAC dressing 6. 12/01 wound vac change at the bedside 7. 12/05 wound vac change at the bedside 8. 12/08 wound vac change at the bedside 9. 12/09 I&D left tibia, application of wound VAC dressing and application of AlloMax allograft dermal matrix Medications and IVs Current Medications Cefazolin Sodium/ Dextrose 50 ml @ As Directed STK-MED ONCE .ROUTE Last administered on 11/13/16 08:09; Start 11/07/16 at 13:58; Stop 11/07/16 at 13:59 ; Status DC Diphtheria/ Tetanus/Acell Pertussis (Boostrix Inj) 0.5 ml STK-MED ONCE IM ; Start 11/07/16 at 13:58; Stop 11/07/16 at 13:59; Status DC Morphine Sulfate (Morphine Inj) 8 mg STK-MED ONCE .ROUTE ; Start 11/07/16 at 14: 01; Stop 11/07/16 at 14:02; Status DC Hydromorphone HCl (Dilaudid Pf Inj) 1 mg STK-MED ONCE .ROUTE Last administered on 11/07/16 19:15; Start 11/07/16 at 14:05; Stop 11/07/16 at 14:06; Status DC Lactated Ringer's 1,000 ml @ 100 mls/hr Q10H IV ; Start 11/07/16 at 14:22; Stop 11/07/16 at 19:02; Status DC Sodium Chloride (NS Flush) 2 ml UNSCH PRN IV FLUSH FLUSH AFTER USING IV ACCESS Last administered on 12/11/16 11:31; Start 11/07/16 at 14:30 Sodium Chloride (NS Flush) 2 ml BID IV FLUSH Last administered on 12/28/16 07: 54; Start 11/07/16 at 21:00 Ondansetron HCl (Zofran Inj) 4 mg Q6H PRN IV NAUSEA OR VOMITING Last administered on 12/04/16t 06:13; Start 11/07/16 at 14:30 Pantoprazole Sodium (Protonix Inj) 40 mg Q24H IV Last administered on t 20:00; Start 11/07/16 at 17:00; Stop 11/08/16 at 08:09; Status DC Docusate Sodium (Colace) 100 mg BID PO ; Start 11/07/16 at 21:00; Stop 11/08/16 at 13:04; Status DC Cefazolin Sodium 1000 mg/Sodium Chloride 100 ml @ 200 mls/hr Q8H IV ; Start at 22:00; Stop 11/07/16 at 22:00; Status DC Miscellaneous Information (Post-op Orders (for Pharmacy)) STAT ONCE XX ; Start 11/07/16 at 14:30; Stop 11/07/16 at 15:39; Status DC Oxycodone/ Acetaminophen (Percocet 10-325 Mg) 1 tab Q4H PRN PO 3-5; Start 11/07 at 14:30; Stop 11/07/16 at 19:03; Status DC Hydromorphone HCl (Dilaudid Pf Inj) 1 mg Q2H PRN IV Pain 6-10; Start 11/07/16 at 14:30; Stop 11/07/16 at 19:11; Status DC Naloxone HCl (Narcan Inj) 0.4 mg UNSCH PRN IV SEE LABEL COMMENTS; Start at 14:30 Gentamicin Sulfate (Gentamicin Inj) 80 mg Q8H IM ; Start 11/07/16 at 14:30; Stop 11/07/16 at 15:37; Status DC Hydromorphone HCl (Dilaudid Pf Inj) 0.5 mg ANCHOR TACK PULLER DOSING PRN IV PUSH pain; Start 11/07/16 at 14:45; Stop 11/07/16 at 19:11; Status DC Gentamicin Sulfate/Sodium Chloride 100 ml @ 200 mls/hr Q8H IV ; Start 11/07/16 at 17:00; Status Cancel Miscellaneous Information (Post-op Orders (for Pharmacy)) UNSCH X1 XX ; Start 11/07/16 at 15:45; Stop 11/08/16 at 06:00; Status DC Cefazolin Sodium (Ancef Inj) 1,000 mg STK-MED ONCE .ROUTE Last administered on 11/07/16 16:26; Start 11/07/16 at 15:48; Stop 11/07/16 at 15:49; Status DC Gentamicin Sulfate (Gentamicin Inj) 80 mg STK-MED ONCE .ROUTE Last administered on 11/07/16 16:26; Start 11/07/16 at 15:49; Stop 11/07/16 at 15:50 ; Status DC Acetaminophen (Ofirmev Inj) 1,000 mg STK-MED ONCE IV ; Start 11/07/16 at 15:56; Stop 11/07/16 at 15:57; Status DC Midazolam HCl (Versed Inj) 2 mg STK-MED ONCE .ROUTE ; Start 11/07/16 at 15:56; Stop 11/07/16 at 15:57; Status DC Famotidine (Pepcid Inj) 20 mg STK-MED ONCE .ROUTE ; Start 11/07/16 at 15:56; Stop 11/07/16 at 15:57; Status DC Gentamicin Sulfate (Gentamicin Inj) 240 mg STK-MED ONCE IRRIGATION Last administered on 11/07/16 16:26; Start 11/07/16 at 16:26; Stop 11/07/16 at 16:42 ; Status DC Fentanyl Citrate (fentaNYL INJ) 250 mcg STK-MED ONCE .ROUTE ; Start 11/07/16 at 17:03; Stop 11/07/16 at 17:04; Status DC Gentamicin Sulfate (Gentamicin Inj) 240 mg STK-MED ONCE .ROUTE Last administered on 11/07/16 16:26; Start 11/07/16 at 17:10; Stop 11/07/16 at 17:11 ; Status DC Lactated Ringer's 1,000 ml @ 100 mls/hr Q10H IV Last administered on 07:51; Start 11/07/16 at 18:00; Stop 11/08/16 at 12:46; Status DC Enoxaparin Sodium (Lovenox Inj) 30 mg Q12H SQ ; Start 11/08/16 at 17:00; Stop at 11:48; Status DC Cefazolin Sodium/ Dextrose 50 ml @ 100 mls/hr Q8H IV Last administered on 11/10 08:16; Start 11/08/16 at 00:00; Stop 11/10/16 at 12:47; Status DC Gentamicin Sulfate/Sodium Chloride 100 ml @ 200 mls/hr Q8H IV Last administered on 11/10/16 16:30; Start 11/08/16 at 00:00; Stop 11/10/16 at 16:29 ; Status DC Acetaminophen/ Hydrocodone Bitart (Hewitt 10-325 Mg) 1 tab Q3H PRN PO PAIN 3<10 Last administered on 11/08/16 10:36; Start 11/07/16 at 18:00; Stop 11/08/16 at 13:04; Status DC Morphine Sulfate (Morphine Inj) 4 mg Q3H PRN IV PUSH Break thru Pain Last administered on 11/08/16 07:50; Start 11/07/16 at 18:00; Stop 11/08/16 at 12:21 ; Status DC Ketorolac Tromethamine (Toradol Inj) 30 mg Q12H IVP Last administered on 05:32; Start 11/07/16 at 18:00; Stop 11/10/16 at 06:01; Status DC Bacitracin (Baciguent Oint) 15 applic STK-MED ONCE .ROUTE Last administered on 11/07/16 18:09; Start 11/07/16 at 18:09; Stop 11/07/16 at 18:10; Status DC Miscellaneous Information ALL NURSING DEPARTME... UNSCH PRN .XX SEE LABEL COMMENTS; Start 11/07/16 at 18:33; Stop 11/08/16 at 18:32; Status DC Acetaminophen (Tylenol) 650 mg Q4H PRN PO Temp > 100.4, pain 1-2; Start at 08:15 Magnesium Hydroxide (Milk Of Magnesia Liq) 30 ml DAILY PRN PO for Severe Constipation Last administered on 11/09/16 20:15; Start 11/08/16 at 08:15; Stop 11/10/16 at 09:00; Status DC Calcium Carbonate (Tums Chew) 1,000 mg TID PRN CHEW DYSPEPSIA Last administered on 12/06/16 08:52; Start 11/08/16 at 08:15 Dextrose (D50w (Vial) Inj) 50 ml UNSCH PRN IV HYPOGLYCEMIA-SEE COMMENTS; Start 11/08/16 at 08:15; Stop 12/03/16 at 09:16; Status DC Glucagon (Glucagon Inj) 1 mg UNSCH PRN OTHER HYPOGLYCEMIA-SEE COMMENTS; Start 11/08/16 at 08:15; Stop 12/03/16 at 09:16; Status DC Insulin Aspart (NovoLOG SUPPLEMENTAL SCALE) 1 ACHS SLIDING SCALE SQ Last administered on 12/01/16 13:21; Start 11/08/16 at 11:00; Stop 12/03/16 at 09:16 ; Status DC Enalaprilat (Vasotec Inj) 1.25 mg Q6H PRN IV SBP> OR = 180, DBP> OR = 100; Start 11/08/16 at 08:15 Clonidine (Catapres) 0.1 mg Q6H PRN PO SBP> OR = 180, DBP> OR = 100; Start at 08:15 Gabapentin (Neurontin) 400 mg TID PO Last administered on 11/16/16 09:10; Start 11/08/16 at 13:00; Stop 11/16/16 at 11:46; Status DC Morphine Sulfate (Morphine Inj) 6 mg Q3H PRN IV PUSH PAIN 6-10 Last administered on 11/17/16 15:09; Start 11/08/16 at 15:00; Stop 11/18/16 at 16:37 ; Status DC Aspirin (Aspirin Chew) 81 mg DAILY CHEW Last administered on 12/28/16 07:54; Start 11/08/16 at 12:45 Ferrous Sulfate (Ferrous Sulfate) 325 mg DAILY PO Last administered on 08:11; Start 11/08/16 at 12:45; Stop 12/05/16 at 09:25; Status DC Lisinopril (Prinivil) 25 mg DAILY PO Last administered on 11/18/16 09:59; Start 11/08/16 at 12:45; Status Future Hold Nitroglycerin (Nitrostat Sl) 0.4 mg Q6HR PRN SL CHEST PAIN; Start 11/08/16 at 12:45 Pantoprazole Sodium (Protonix) 40 mg DAILY PO Last administered on 12/28/16 07 :54; Start 11/08/16 at 12:45 Pravastatin Sodium (Pravachol) 80 mg HS PO Last administered on 12/27/16 20:01 ; Start 11/08/16 at 21:00 Propranolol HCl (Inderal) 80 mg Q12HR PO Last administered on 11/18/16 10:01; Start 11/08/16 at 21:00; Stop 11/22/16 at 12:49; Status DC Miscellaneous (Pill Splitter) 1 ea UNSCH PRN OTHER SEE LABEL COMMENTS; Start at 12:45 Senna/Docusate Sodium (Elke-Colace) 1 tab BID PO Last administered on 07:53; Start 11/08/16 at 12:45; Status Future hold Lactulose (Lactulose Liq) 30 ml DAILY PRN PO No BM in 2 days; Start 11/08/16 at 12:45; Stop 11/10/16 at 07:47; Status DC Acetaminophen/ Hydrocodone Bitart (Hewitt 10-325 Mg) 1.5 tab Q3H PRN PO PAIN 3- 10 Last administered on 11/09/16 23:46; Start 11/08/16 at 15:00; Stop 11/10/16 at 12:45; Status DC Folic Acid (Folate) 1 mg DAILY PO Last administered on 11/12/16 09:14; Start 11/09/16 at 09:00; Stop 11/14/16 at 08:59; Status DC Thiamine HCl (Vitamin B1) 100 mg DAILY PO Last administered on 12/28/16 07:53 ; Start 11/09/16 at 09:00 Multivitamins/ Minerals Therapeutic (Theragran M Tab) 1 tab DAILY PO Last administered on 11/12/16 09:13; Start 11/09/16 at 09:00; Stop 11/14/16 at 08:59 ; Status DC Flumazenil (Romazicon Inj) 0.2 mg Q1M PRN IV PUSH SEE LABEL COMMENTS; Start at 13:00 Lorazepam (Ativan) 1 mg Q4H PRN PO CIWA 8 - 10; Start 11/08/16 at 13:00; Stop 11/26/16 at 16:05; Status DC Lorazepam (Ativan Inj) 1 mg Q4H PRN IV PUSH CIWA 8 - 10; Start 11/08/16 at 13: 00; Stop 11/26/16 at 16:05; Status DC Lorazepam (Ativan) 2 mg Q2H PRN PO CIWA 11-14; Start 11/08/16 at 13:00; Stop at 16:05; Status DC Lorazepam (Ativan Inj) 2 mg Q2H PRN IV PUSH CIWA 11-14; Start 11/08/16 at 13:00 ; Stop 11/26/16 at 16:05; Status DC Lorazepam (Ativan Inj) 2 mg Q1H PRN IV PUSH CIWA 15-20; Start 11/08/16 at 13:00 ; Stop 11/26/16 at 16:05; Status DC Lorazepam (Ativan Inj) 2 mg Q15M PRN IV PUSH CIWA > 20; Start 11/08/16 at 13:00 ; Stop 11/26/16 at 16:05; Status DC Haloperidol Lactate (Haldol Inj) 2 mg Q15M PRN IM SEE LABEL COMMENTS; Start at 13:00 Lactated Ringer's 1,000 ml @ 30 mls/hr Q24H PRN IV SEE LABEL COMMENTS; Start at 00:45; Stop 11/09/16 at 12:05; Status DC Sodium Chloride 500 ml @ 30 mls/hr [id number] PRN IV SEE LABEL COMMENTS; Start at 00:45; Stop 11/09/16 at 12:05; Status DC Metoprolol Tartrate (Lopressor) 25 mg SHEET MET[employer] SUPERVISOR PRN PO SEE LABEL COMMENTS; Start 11/09/16 at 00:45; Stop 11/12/16 at 00:44; Status DC Povidone Iodine (Betadine 5% Antisepsis Kit) 1 applic SHEET [employer] SUPERVISOR PRN EACH NARE SEE LABEL COMMENTS; Start 11/09/16 at 00:45; Stop 11/12/16 at 00:44; Status DC Chlorhexidine Gluconate (Chlorhexidine 2% Cloth) 3 pack SHEET [employer] SUPERVISOR PRN TOPICAL SEE LABEL COMMENTS; Start 11/09/16 at 00:45; Stop 11/09/16 at 12:05; Status DC Insulin Human Regular (NovoLIN R INJ) See Protocol Table ... [employer] SUPERVISOR PRN SQ SEE PROTOCOL TABLE; Start 11/09/16 at 00:45; Stop 11/12/16 at 00:44; Status DC Potassium Chloride (KCl) 20 meq ONCE ONCE PO Last administered on 11/09/16 11 :40; Start 11/09/16 at 11:00; Stop 11/09/16 at 11:01; Status DC Neomycin/ Polymyxin/ Bacitracin (Neosporin Oint) 1 applic DAILY TOPICAL Last administered on 12/28/16 09:00; Start 11/10/16 at 09:00 Lactulose (Lactulose Liq) 30 ml DAILY PO Last administered on 12/02/16 09:18; Start 11/10/16 at 09:00; Stop 12/08/16 at 09:52; Status DC Magnesium Hydroxide (Milk Of Magnesia Liq) 30 ml HS PO Last administered on 12/27 20:01; Start 11/10/16 at 21:00; Status Future hold Famotidine (Pepcid Inj) 20 mg STK-MED ONCE .ROUTE Last administered on 08:51; Start 11/10/16 at 08:51; Stop 11/10/16 at 08:52; Status DC Albuterol Sulfate (Albuterol Neb) 2.5 mg STK-MED ONCE .ROUTE Last administered on 11/10/16 08:55; Start 11/10/16 at 08:53; Stop 11/10/16 at 08:54; Status DC Gentamicin Sulfate (Gentamicin Inj) 240 mg STK-MED ONCE .ROUTE Last administered on 11/10/16 09:48; Start 11/10/16 at 09:02; Stop 11/10/16 at 09:03 ; Status DC Acetaminophen (Ofirmev Inj) 1,000 mg STK-MED ONCE IV ; Start 11/10/16 at 09:13; Stop 11/10/16 at 09:14; Status DC Lactated Ringer's 1,000 ml @ 100 mls/hr Q10H IV Last administered on 00:53; Start 11/10/16 at 13:00; Stop 11/11/16 at 11:56; Status DC Enoxaparin Sodium (Lovenox Inj) 30 mg Q12H SQ Last administered on 12/04/16 00 :03; Start 11/11/16 at 00:00; Stop 12/04/16 at 09:43; Status DC Cefazolin Sodium/ Dextrose 50 ml @ 100 mls/hr Q8H IV Last administered on 11/13 00:05; Start 11/10/16 at 16:00; Stop 11/13/16 at 08:29; Status DC Gentamicin Sulfate/Sodium Chloride 100 ml @ 200 mls/hr Q8H IV Last administered on 11/13/16 10:00; Start 11/10/16 at 18:00; Stop 11/13/16 at 10:29 ; Status DC Acetaminophen/ Hydrocodone Bitart (Hewitt 10-325 Mg) 1 tab Q3H PRN PO PAIN 3<10 Last administered on 11/18/16 04:34; Start 11/10/16 at 11:45; Stop 11/18/16 at 16 :37; Status DC Calcium/Vitamin D (Oscal-D 250-125) 250 mg TID PO Last administered on 12:26; Start 11/10/16 at 13:00 Meperidine HCl (*DEMEROL INJ PERIprocedural ONLY) 25 mg STK-MED ONCE .ROUTE Last administered on 11/10/16 12:36; Start 11/10/16 at 12:36; Stop 11/10/16 at 12:37; Status DC Miscellaneous Information ALL NURSING DEPARTME... UNSCH PRN .XX SEE LABEL COMMENTS; Start 11/10/16 at 12:29; Stop 11/11/16 at 12:28; Status DC Midazolam HCl (Versed Inj) 2 mg STK-MED ONCE .ROUTE ; Start 11/10/16 at 12:48; Stop 11/10/16 at 12:49; Status DC Fentanyl Citrate (fentaNYL INJ) 250 mcg STK-MED ONCE .ROUTE ; Start 11/10/16 at 12:48; Stop 11/10/16 at 12:49; Status DC Morphine Sulfate (*morphine INJ PERIprocedure ONLY) 8 mg STK-MED ONCE .ROUTE Last administered on 11/10/16 14:36; Start 11/10/16 at 14:36; Stop 11/10/16 at 14:37; Status DC Bisacodyl (Dulcolax Ec) 10 mg ONCE ONCE PO Last administered on 11/11/16 10: 17; Start 11/11/16 at 07:00; Stop 11/11/16 at 07:04; Status DC Bisacodyl (Dulcolax Supp) 10 mg ONCE ONCE RECTAL Last administered on 10:17; Start 11/11/16 at 07:00; Stop 11/11/16 at 07:04; Status DC Sodium Chloride 250 ml @ 15 mls/hr ONCE ONCE IV Last administered on 11:19; Start 11/11/16 at 11:15; Stop 11/12/16 at 03:54; Status DC Furosemide (Lasix Inj) 20 mg ONCE ONCE IV ; Start 11/11/16 at 11:15; Stop 11/11 at 11:16; Status Cancel Furosemide (Lasix Inj) 20 mg ONCE ONCE IV Last administered on 11/12/16 11:18 ; Start 11/12/16 at 11:00; Stop 11/12/16 at 11:01; Status DC Albuterol/ Ipratropium (Duoneb Neb) 1 ampule Q4HR NEB PRN NEB wheezing; Start 11/12/16 at 13:15 Lactated Ringer's 1,000 ml @ 30 mls/hr Q24H PRN IV SEE LABEL COMMENTS; Start at 05:00; Stop 11/16/16 at 04:59; Status Cancel Sodium Chloride 500 ml @ 30 mls/hr [id number] PRN IV SEE LABEL COMMENTS; Start at 05:00; Stop 11/16/16 at 04:59; Status DC Metoprolol Tartrate (Lopressor) 25 mg SHEET [employer] SUPERVISOR PRN PO SEE LABEL COMMENTS; Start 11/13/16 at 05:00; Stop 11/16/16 at 04:59; Status DC Povidone Iodine (Betadine 5% Antisepsis Kit) 1 applic [employer] SUPERVISOR PRN EACH NARE SEE LABEL COMMENTS; Start 11/13/16 at 05:00; Stop 11/16/16 at 04:59; Status DC Chlorhexidine Gluconate (Chlorhexidine 2% Cloth) 3 pack SHEET [employer] SUPERVISOR PRN TOPICAL SEE LABEL COMMENTS; Start 11/13/16 at 05:00; Stop 11/16/16 at 04:59; Status DC Lidocaine HCl (Xylocaine 2% Jelly) 30 applic STK-MED ONCE .ROUTE ; Start at 07:15; Stop 11/13/16 at 07:16; Status DC Mineral Oil (Muri-Lube Oil) 10 ml STK-MED ONCE .ROUTE ; Start 11/13/16 at 07:15 ; Stop 11/13/16 at 07:16; Status DC Gentamicin Sulfate (Gentamicin Inj) 240 mg STK-MED ONCE .ROUTE Last administered on 11/13/16 08:20; Start 11/13/16 at 07:15; Stop 11/13/16 at 07:16 ; Status DC Albuterol Sulfate (Albuterol Neb) 2.5 mg STK-MED ONCE .ROUTE ; Start 11/13/16 at 07:34; Stop 11/13/16 at 07:35; Status DC Dexamethasone Sodium Phosphate (Decadron Inj) 4 mg STK-MED ONCE .ROUTE ; Start 11/13/16 at 07:36; Stop 11/13/16 at 07:37; Status DC Famotidine (Pepcid Inj) 20 mg STK-MED ONCE .ROUTE ; Start 11/13/16 at 07:36; Stop 11/13/16 at 07:37; Status DC Albuterol/ Ipratropium (Duoneb Neb) 1 ampule STK-MED ONCE .ROUTE Last administered on 11/13/16 07:50; Start 11/13/16 at 07:47; Stop 11/13/16 at 07:48 ; Status DC Lactated Ringer's 1,000 ml @ 100 mls/hr Q10H IV Last administered on 12:14; Start 11/13/16 at 08:42; Stop 11/18/16 at 16:33; Status DC Cefazolin Sodium/ Dextrose 50 ml @ 100 mls/hr Q8H IV Last administered on 04:43; Start 11/13/16 at 12:00; Stop 11/20/16 at 11:59; Status DC Gentamicin Sulfate/Sodium Chloride 100 ml @ 200 mls/hr Q8H IV Last administered on 11/16/16 09:14; Start 11/13/16 at 18:00; Stop 11/16/16 at 17:59 ; Status DC Midazolam HCl (Versed Inj) 2 mg STK-MED ONCE .ROUTE ; Start 11/13/16 at 09:25; Stop 11/13/16 at 09:26; Status DC Fentanyl Citrate (fentaNYL INJ) 250 mcg STK-MED ONCE .ROUTE ; Start 11/13/16 at 09:25; Stop 11/13/16 at 09:26; Status DC Zolpidem Tartrate (Ambien) 5 mg HS PRN PO Insomnia Last administered on 23:44; Start 11/14/16 at 11:00 Trazodone HCl (Desyrel) 100 mg HS PO Last administered on 12/27/16 20:01; Start 11/14/16 at 21:00 Morphine Sulfate (Oramorph Sr) 15 mg Q12HR PO Last administered on 11/18/16 10: 00; Start 11/16/16 at 21:00; Stop 11/18/16 at 16:36; Status DC Morphine Sulfate (Oramorph Sr) 15 mg ONCE ONCE PO Last administered on 12:32; Start 11/16/16 at 10:15; Stop 11/16/16 at 10:24; Status DC Gabapentin (Neurontin) 600 mg TID PO Last administered on 12/28/16 12:25; Start 11/16/16 at 13:00 Sodium Chloride 1,000 ml @ 999 mls/hr BOLUS ONCE IV Last administered on 17:22; Start 11/18/16 at 16:45; Stop 11/18/16 at 17:45; Status DC Morphine Sulfate (Oramorph Sr) 30 mg Q12HR PO Last administered on 11/29/16 09 :24; Start 11/18/16 at 21:00; Stop 11/29/16 at 14:26; Status DC Morphine Sulfate (Morphine Inj) 6 mg Q4H PRN IV PUSH PAIN SCALE 5 TO 10 Last administered on 11/19/16 05:59; Start 11/18/16 at 16:45; Stop 11/20/16 at 00:46; Status DC Morphine Sulfate (Morphine Inj) 3 mg Q3H PRN IV PUSH PAIN SCALE 1 TO 4 Last administered on 11/19/16 16:36; Start 11/18/16 at 16:45; Stop 11/20/16 at 00:46; Status DC Sodium Chloride 1,000 ml @ 125 mls/hr Q8H IV Last administered on 11/19/16 16: 15; Start 11/19/16 at 00:15; Stop 11/19/16 at 19:21; Status DC Sodium Chloride 500 ml @ 500 mls/hr BOLUS ONCE IV Last administered on 00:15; Start 11/19/16 at 00:15; Stop 11/19/16 at 01:14; Status DC Nystatin (Mycostatin Powder) 1 applic Q12HR TOPICAL Last administered on 08:54; Start 11/19/16 at 21:00; Stop 11/28/16 at 13:46; Status DC Acetaminophen/ Hydrocodone Bitart (Hewitt 7.5-325 Mg) 1 tab Q4H PRN PO PAIN SCALE 1 TO 4; Start 11/20/16 at 00:45; Stop 11/28/16 at 13:46; Status DC Acetaminophen/ Hydrocodone Bitart (Hewitt 10-325 Mg) 1 tab Q4H PRN PO PAIN SCALE 3-5 Last administered on 12/23/16 08:58; Start 11/20/16 at 00:45 Hydromorphone HCl (Dilaudid Pf Inj) 1 mg Q4H PRN IV PUSH BREAKTHROUGH PAIN Last administered on 12/17/16 10:38; Start 11/20/16 at 00:45; Stop 12/18/16 at 10:47; Status DC Propranolol HCl (Inderal) 40 mg Q12HR PO Last administered on 12/08/16 08:01; Start 11/22/16 at 21:00; Stop 12/08/16 at 10:00; Status DC Lactated Ringer's 1,000 ml @ 30 mls/hr Q24H PRN IV SEE LABEL COMMENTS; Start at 02:45; Stop 11/27/16 at 02:44; Status DC Sodium Chloride 500 ml @ 30 mls/hr [id number] PRN IV SEE LABEL COMMENTS; Start 11/24/16 at 02:45; Stop 11/27/16 at 02:44; Status DC Povidone Iodine (Betadine 5% Antisepsis Kit) 1 applic [employer]ET [employer] SUPERVISOR PRN EACH NARE SEE LABEL COMMENTS; Start 11/24/16 at 02:45; Stop 11/27/16 at 02:44; Status DC Chlorhexidine Gluconate (Chlorhexidine 2% Cloth) 3 pack SHEET [employer] SUPERVISOR PRN TOPICAL SEE LABEL COMMENTS; Start 11/24/16 at 02:45; Stop 11/27/16 at 02:44; Status DC Insulin Human Regular (NovoLIN R INJ) See Protocol Table ... [employer]ER SUPERVISOR PRN SQ SEE PROTOCOL TABLE; Start 11/24/16 at 02:45; Stop 11/27/16 at 02:44; Status DC Prochlorperazine Edisylate (Compazine Inj) 10 mg Q8H PRN IV PUSH NAUSEA/ VOMITING Last administered on 11/25/16 18:00; Start 11/25/16 at 16:15 Sodium Chloride 500 ml @ 500 mls/hr BOLUS ONCE IV Last administered on 18:06; Start 11/25/16 at 17:00; Stop 11/25/16 at 17:59; Status DC Gentamicin Sulfate (Gentamicin Inj) 240 mg STK-MED ONCE .ROUTE Last administered on 11/28/16 10:42; Start 11/28/16 at 07:18; Stop 11/28/16 at 07:19 ; Status DC Vancomycin HCl (Vancomycin Inj) 1,000 mg STK-MED ONCE .ROUTE Last administered on 12/09/16 15:25; Start 11/28/16 at 07:38; Stop 11/28/16 at 07:39; Status DC Cefazolin Sodium/ Dextrose 50 ml @ As Directed STK-MED ONCE .ROUTE Last administered on 12/09/16 15:20; Start 11/28/16 at 07:38; Stop 11/28/16 at 07:39 ; Status DC Sodium Chloride 250 ml @ As Directed STK-MED ONCE .ROUTE ; Start 11/28/16 at 07 :39; Stop 11/28/16 at 07:40; Status DC Fentanyl Citrate (fentaNYL INJ) 250 mcg STK-MED ONCE .ROUTE ; Start 11/28/16 at 10:15; Stop 11/28/16 at 10:16; Status DC Cefazolin Sodium (Ancef Inj) 1,000 mg STK-MED ONCE .ROUTE Last administered on 11/28/16 10:31; Start 11/28/16 at 10:23; Stop 11/28/16 at 10:24; Status DC Lactated Ringer's 1,000 ml @ 100 mls/hr Q10H IV ; Start 11/28/16 at 10:59; Stop 12/03/16 at 09:16; Status DC Cefazolin Sodium/ Dextrose 50 ml @ 100 mls/hr Q8H IV Last administered on 12/01 06:46; Start 11/28/16 at 15:00; Stop 12/01/16 at 14:59; Status DC Magnesium Hydroxide (Milk Of Magnfidencio Liq) 30 ml Q12H PRN PO MILD - MODERATE CONSTIPATION Last administered on 12/26/16 10:08; Start 11/28/16 at 11:30 Sennosides (Senokot) 17.2 mg Q12H PRN PO MODERATE - SEVERE CONSTIPATION Last administered on 12/25/16 09:48; Start 11/28/16 at 11:30 Bisacodyl (Dulcolax Supp) 10 mg DAILY PRN RECTAL SEVERE CONSITIPATION Last administered on 12/11/16 12:30; Start 11/28/16 at 11:30 Albuterol Sulfate (*ALBUTEROL NEB PERIprocedure ONLY) 2.5 mg STK-MED ONCE NEB Last administered on 11/28/16 11:38; Start 11/28/16 at 11:38; Stop 11/28/16 at 11:39; Status DC Dexamethasone Sodium Phosphate (Decadron Inj) 4 mg STK-MED ONCE .ROUTE ; Start 11/28/16 at 11:51; Stop 11/28/16 at 11:52; Status DC Dexamethasone Sodium Phosphate (Decadron Inj) 4 mg NOW ONCE IV Last administered on 11/28/16 12:00; Start 11/28/16 at 12:00; Stop 11/28/16 at 12:01 ; Status DC Miscellaneous Information ALL NURSING DEPARTME... UNSCH PRN .XX SEE LABEL COMMENTS; Start 11/28/16 at 11:22; Stop 11/29/16 at 11:21; Status DC Morphine Sulfate (*morphine INJ PERIprocedure ONLY) 8 mg STK-MED ONCE .ROUTE Last administered on 11/28/16 12:01; Start 11/28/16 at 12:01; Stop 11/28/16 at 12:02; Status DC Acetaminophen/ Hydrocodone Bitart ([place]itt 10-325 Mg) 1.5 tab Q4H PRN PO pain 6- 10 Last administered on 12/23/16 17:35; Start 11/28/16 at 15:00; Stop 12/23/16 at 18:38; Status DC Nystatin (Mycostatin Cream) 1 applic Q6HR TOPICAL Last administered on 05:00; Start 11/28/16 at 14:00; Stop 12/16/16 at 13:46; Status DC Morphine Sulfate (Oramorph Sr) 30 mg Q8HR PO Last administered on 12/03/16 06: 09; Start 11/29/16 at 22:00; Stop 12/03/16 at 12:16; Status DC Cetirizine HCl (ZyrTEC) 10 mg HS PO Last administered on 12/07/16 20:03; Start 12/01/16 at 21:00; Stop 12/08/16 at 20:59; Status DC Fluticasone Propionate (Flonase Jerzy Spr) 2 spray DAILY EACH NARE Last administered on 12/15/16 08:54; Start 12/01/16 at 11:00; Stop 12/15/16 at 10:59 ; Status DC Folic Acid (Folate) 1 mg DAILY PO Last administered on 12/28/16 07:54; Start 12/03/16 at 09:00 Morphine Sulfate (Oramorph Sr) 30 mg Q8HR PO Last administered on 12/28/16 12: 26; Start 12/03/16 at 14:00 Lactobacillus Acidophilus (Lactinex) 1 tab TID PO Last administered on 08:10; Start 12/04/16 at 09:00; Stop 12/05/16 at 09:26; Status DC Enoxaparin Sodium (Lovenox Inj) 40 mg DAILY SQ Last administered on 12/28/16 07:53; Start 12/05/16 at 09:00 Al Hydrox/Mg Hydrox/Simethicone (Mag-Al Plus Susp Liq) 30 ml ONCE ONCE PO Last administered on 12/04/16 11:55; Start 12/04/16 at 11:45; Stop 12/04/16 at 11:50; Status DC Al Hydrox/Mg Hydrox/Simethicone (Mag-Al Plus Susp Liq) 30 ml Q6HR PRN PO HEARTBURN, INDIGESTION Last administered on 12/06/16 08:52; Start 12/04/16 at 18:00 Sucralfate (Carafate Liq) 1 gm QID PO Last administered on 12/16/16 13:41; Start 12/05/16 at 09:00; Stop 12/16/16 at 13:43; Status DC Lactobacillus Acidophilus (Lactinex) 1 tab BID PO Last administered on 09:36; Start 12/05/16 at 21:00; Stop 12/18/16 at 10:47; Status DC Polyethylene Glycol (Miralax) 17 gm DAILY PRN PO CONSTIPATION; Start 12/08/16 at 10:00; Stop 12/11/16 at 15:18; Status DC Propranolol HCl (Inderal) 20 mg Q12HR PO Last administered on 12/09/16 20:34; Start 12/08/16 at 21:00; Stop 12/10/16 at 07:34; Status DC Lactated Ringer's 1,000 ml @ 30 mls/hr Q24H PRN IV SEE LABEL COMMENTS; Start at 01:30; Stop 12/12/16 at 01:29; Status DC Sodium Chloride 500 ml @ 30 mls/hr [id number] PRN IV SEE LABEL COMMENTS; Start at 01:30; Stop 12/12/16 at 01:29; Status DC Povidone Iodine (Betadine 5% Antisepsis Kit) 1 applic [employer] PRN EACH NARE SEE LABEL COMMENTS; Start 12/09/16 at 01:30; Stop 12/12/16 at 01:29; Status DC Chlorhexidine Gluconate (Chlorhexidine 2% Cloth) 3 pack [employer] PRN TOPICAL SEE LABEL COMMENTS; Start 12/09/16 at 01:30; Stop 12/12/16 at 01:29; Status DC Insulin Human Regular (NovoLIN R INJ) See Protocol Table ... [employer] PRN SQ SEE PROTOCOL TABLE; Start 12/09/16 at 01:30; Stop 12/12/16 at 01:29; Status DC Bupivacaine HCl/ Epinephrine Bitart (Sensorcaine-Epinephrine 0.25% Inj) 50 ml STK-MED ONCE .ROUTE ; Start 12/09/16 at 14:07; Stop 12/09/16 at 14:08; Status DC Mineral Oil (Muri-Lube Oil) 10 ml STK-MED ONCE .ROUTE ; Start 12/09/16 at 14:07 ; Stop 12/09/16 at 14:08; Status DC Gentamicin Sulfate (Gentamicin Inj) 240 mg STK-MED ONCE .ROUTE Last administered on 12/09/16 15:31; Start 12/09/16 at 14:07; Stop 12/09/16 at 14:08 ; Status DC Vancomycin HCl (Vancomycin Inj) 1,000 mg STK-MED ONCE .ROUTE ; Start 12/09/16 at 15:06; Stop 12/09/16 at 15:07; Status DC Cefazolin Sodium/ Dextrose 50 ml @ As Directed STK-MED ONCE .ROUTE ; Start 12/09 at 15:06; Stop 12/09/16 at 15:07; Status DC Lactated Ringer's 1,000 ml @ 100 mls/hr Q10H IV ; Start 12/09/16 at 15:57; Stop 12/16/16 at 13:45; Status DC Cefazolin Sodium/ Dextrose 50 ml @ 100 mls/hr Q8H IV Last administered on 12/16 13:42; Start 12/09/16 at 20:00; Stop 12/16/16 at 19:59; Status DC Gentamicin Sulfate/Sodium Chloride 100 ml @ 200 mls/hr Q8H IV Last administered on 12/12/16 12:25; Start 12/09/16 at 21:00; Stop 12/12/16 at 20:59 ; Status DC Morphine Sulfate (*morphine INJ PERIprocedure ONLY) 8 mg STK-MED ONCE .ROUTE Last administered on 12/09/16 16:32; Start 12/09/16 at 16:32; Stop 12/09/16 at 16:33; Status DC Fentanyl Citrate (fentaNYL INJ) 250 mcg STK-MED ONCE .ROUTE ; Start 12/09/16 at 16:33; Stop 12/09/16 at 16:34; Status DC Miscellaneous Information ALL NURSING DEPARTME... UNSCH PRN .XX SEE LABEL COMMENTS; Start 12/09/16 at 16:20; Stop 12/10/16 at 16:19; Status DC Morphine Sulfate (*morphine INJ PERIprocedure ONLY) 8 mg STK-MED ONCE .ROUTE Last administered on 12/09/16 17:01; Start 12/09/16 at 17:01; Stop 12/09/16 at 17:02; Status DC Propranolol HCl (Inderal) 10 mg Q12HR PO Last administered on 12/13/16 09:42; Start 12/10/16 at 09:00; Stop 12/13/16 at 10:32; Status DC Menthol/Methyl Salicylate (Aleks Daniels Oint) 1 applic UNSCH PRN TOPICAL arthritic pain Last administered on 12/12/16 17:51; Start 12/11/16 at 15:30 Propranolol HCl (Inderal) 20 mg Q12HR PO ; Start 12/13/16 at 21:00; Stop at 21:00; Status DC Propranolol HCl (Inderal) 10 mg Q12HR PO Last administered on 12/28/16 07:53; Start 12/13/16 at 21:00 Bacitracin (Baciguent Oint) 1 applic DAILY PRN TOPICAL WOUND VAC DRESSING CHANGE; Start 12/15/16 at 12:30 Sucralfate (Carafate Liq) 1 gm BID PO Last administered on 12/28/16 07:53; Start 12/16/16 at 21:00; Stop 12/30/16 at 20:59 Lidocaine HCl (Lidoderm 5% Patch.12 Hr) 1 patch DAILY T-DERMAL Last administered on 12/18/16 11:33; Start 12/18/16 at 10:00; Stop 12/19/16 at 19:35 ; Status DC Miscellaneous Information 1 Q24H T-DERMAL ; Start 12/18/16 at 21:00; Stop at 19:35; Status DC Lactobacillus Acidophilus (Lactinex) 1 tab TID PO Last administered on 12:24; Start 12/18/16 at 13:00 Lidocaine HCl (Lidoderm 5% Patch.12 Hr) 1 patch HS T-DERMAL Last administered on 12/21/16 21:09; Start 12/19/16 at 21:00 Miscellaneous Information 1 Q24H T-DERMAL Last administered on 9/6/17at 09:00; Start 12/20/16 at 09:00 Propofol (Diprivan 200 Mg/20 ml Inj) 200 mg STK-MED ONCE IV ; Start 11/07/16 at 12:00; Stop 12/23/16 at 10:36; Status DC Ephedrine Sulfate (ePHEDrine/NS 25 MG/5 ML SYR) 50 mg STK-MED ONCE IV ; Start at 12:00; Stop 12/23/16 at 10:36; Status DC Neostigmine Methylsulfate (Prostigmin Inj) 3 mg STK-MED ONCE IV ; Start at 12:00; Stop 12/23/16 at 10:36; Status DC Phenylephrine HCl (Neosynephrine/ NS 1000 Mcg/10ml Syr) 1,000 mcg STK-MED ONCE IV ; Start 11/07/16 at 12:00; Stop 12/23/16 at 10:37; Status DC Ondansetron HCl (Zofran Inj) 4 mg STK-MED ONCE IV PUSH ; Start 11/07/16 at 12:00 ; Stop 12/23/16 at 10:37; Status DC Lactated Ringer's 1,000 ml @ As Directed STK-MED ONCE IV ; Start 11/07/16 at 12 :00; Stop 12/23/16 at 10:37; Status DC Parenteral Electrolytes 1,000 ml @ As Directed STK-MED ONCE IV ; Start at 12:00; Stop 12/23/16 at 10:37; Status DC Propofol (Diprivan 200 Mg/20 ml Inj) 400 mg STK-MED ONCE IV ; Start 11/10/16 at 12:00; Stop 12/23/16 at 12:04; Status DC Phenylephrine HCl (Neosynephrine/ NS 1000 Mcg/10ml Syr) 2,000 mcg STK-MED ONCE IV ; Start 11/10/16 at 12:00; Stop 12/23/16 at 12:04; Status DC Ondansetron HCl (Zofran Inj) 4 mg STK-MED ONCE IV PUSH ; Start 11/10/16 at 12:00 ; Stop 12/23/16 at 12:04; Status DC Lactated Ringer's 1,000 ml @ As Directed STK-MED ONCE IV ; Start 11/10/16 at 12 :00; Stop 12/23/16 at 12:04; Status DC Propofol (Diprivan 200 Mg/20 ml Inj) 200 mg STK-MED ONCE IV ; Start 11/13/16 at 12:00; Stop 12/23/16 at 12:38; Status DC Ephedrine Sulfate (ePHEDrine/NS 25 MG/5 ML SYR) 25 mg STK-MED ONCE IV ; Start at 12:00; Stop 12/23/16 at 12:38; Status DC Phenylephrine HCl (Neosynephrine/ NS 1000 Mcg/10ml Syr) 1,000 mcg STK-MED ONCE IV ; Start 11/13/16 at 12:00; Stop 12/23/16 at 12:38; Status DC Ondansetron HCl (Zofran Inj) 4 mg STK-MED ONCE IV PUSH ; Start 11/13/16 at 12:00 ; Stop 12/23/16 at 12:38; Status DC Lactated Ringer's 1,000 ml @ As Directed STK-MED ONCE IV ; Start 11/13/16 at 12 :00; Stop 12/23/16 at 12:38; Status DC Neostigmine Methylsulfate (Prostigmin Inj) 3 mg STK-MED ONCE IV ; Start at 12:00; Stop 12/23/16 at 12:38; Status DC Propofol (Diprivan 200 Mg/20 ml Inj) 200 mg STK-MED ONCE IV ; Start 11/28/16 at 12:00; Stop 12/23/16 at 12:50; Status DC Ephedrine Sulfate (ePHEDrine/NS 25 MG/5 ML SYR) 25 mg STK-MED ONCE IV ; Start at 12:00; Stop 12/23/16 at 12:50; Status DC Ondansetron HCl (Zofran Inj) 4 mg STK-MED ONCE IV PUSH ; Start 11/28/16 at 12:00 ; Stop 12/23/16 at 12:50; Status DC Propofol (Diprivan 200 Mg/20 ml Inj) 200 mg STK-MED ONCE IV ; Start 12/09/16 at 12:00; Stop 12/23/16 at 14:38; Status DC Ephedrine Sulfate (ePHEDrine/NS 25 MG/5 ML SYR) 50 mg STK-MED ONCE IV ; Start at 12:00; Stop 12/23/16 at 14:38; Status DC Ondansetron HCl (Zofran Inj) 4 mg STK-MED ONCE IV PUSH ; Start 12/09/16 at 12:00 ; Stop 12/23/16 at 14:38; Status DC Acetaminophen/ Hydrocodone Bitart (Hewitt 10-325 Mg) 2 tab Q4H PRN PO pain 6-10 Last administered on 12/28/16 12:26; Start 12/23/16 at 18:45 Vancomycin HCl 5000 mg/Sodium Chloride 3,000 ml @ 10 mls/hr Q24H PRN IRRIGATION DRESSING CHANGE; Start 12/25/16 at 08:00 Diphenhydramine HCl (Benadryl) 12.5 mg Q4H PRN PO itching Last administered on 12/28/16 07:54; Start 12/25/16 at 16:45 Ferrous Sulfate (Ferrous Sulfate) 325 mg BID@12,17 PO Last administered on 12/28 12:25; Start 12/26/16 at 12:00 Ascorbic Acid (Vitamin C) 500 mg BID PO Last administered on 12/28/16 07:53; Start 12/26/16 at 09:00 Pharmacy Profile Note 0 ml @ 0 mls/hr UNSCH OTHER ; Start 12/26/16 at 14:45 Vancomycin HCl 1500 mg/Sodium Chloride 515 ml @ 257.5 mls/ hr Q12H IV Last administered on 12/26/16 20:17; Start 12/26/16 at 17:00; Stop 12/27/16 at 04:54; Status DC Miscellaneous Information SPECIFIC LAB TO BE LEANNA... ONCE ONCE .XX ; Start 12/28 at 04:45; Stop 12/28/16 at 04:46; Status Cancel Vancomycin HCl 1500 mg/Sodium Chloride 515 ml @ 257.5 mls/ hr Q12H IV Last administered on 12/28/16 09:30; Start 12/27/16 at 08:00 Miscellaneous Information SPECIFIC LAB TO BE LEANNA... ONCE ONCE .XX ; Start 12/28 at 07:45; Stop 12/28/16 at 07:46; Status DC Miscellaneous Information SPECIFIC LAB TO BE LEANNA... ONCE ONCE .XX ; Start 12/29 at 20:45; Stop 12/29/16 at 20:46 A/P Problem List: (1) Fracture of tibia, left, open ICD Code: S82.202B - Unspecified fracture of shaft of left tibia, initial encounter for open fracture type I or II Status: Acute (2) Fracture of tibia, right, open ICD Code: S82.201B - Unspecified fracture of shaft of right tibia, initial encounter for open fracture type I or II Status: Acute (3) Hypotension ICD Code: I95.9 - Hypotension, unspecified Status: Acute (4) Right shoulder pain ICD Code: M25.511 - Pain in right shoulder Assessment and Plan 61-year-old male admitted secondary to bilateral leg trauma after car fell on his legs while he was working on. Open fractures were present bilaterally. MRSA: -ID consulted stated to continue with vancomycin. Iron deficiency: -Supplementation initiated. Constipation - Patient's diarrhea has resolved, no sample was able to be collected for C. difficile - Stool softeners resumed -noted to have 1-2 bowel movements per day. Bilateral open tibia-fibula fractures Left tibial plateau fracture - Open fractures have been surgically repaired, right side has external fixation - Continue wound VAC left leg as per orthopedic surgery recommendations. Undergoing serial wound vac changes per ortho. - left tibial plateau fracture treated nonoperatively - Pin care BID to right leg - NWB BLEs - Lortab dose when necessary, Oramorph 30mg every 8 hours. -Orthopedics increased Hewitt to 20 mg per administration. Acute blood loss anemia - Related to trauma vs post op blood loss - Status post transfusion of 2 units of packed red blood cells in 11/12/16. - on iron supplementation daily. Iron studies reviewed. - hemoglobin stable - monitor CBC as indicated Coronary artery disease with h/o previous CABG - stable. Patient is asymptomatic. - Continue propranolol and statin - ASA 81mg daily - Clonidine PRN Hypertension - controlled - MARGIE inhibitor held due to hypotension. - Narcotics seem to have a depressive affect on this patient, however blood pressure has much improved after the patient was taken off IV morphine Diabetes mellitus type 2 - blood sugars well controlled Alcohol abuse Transaminitis, resolved - AST and ALT now within normal range. - Continue with daily thiamine and folic acid - Alcohol cessation recommended Tobacco abuse - Cessation recommended. Chronic essential tremor - Continue Propranolol at lower dose due to bradycardia with holding parameters, HR <55 GI prophylaxis: PPI DVT prophylaxis: Lovenox sq Problem Qualifiers (1) Fracture of tibia, left, open: (2) Fracture of tibia, right, open: (3) Hypotension: (4) Right shoulder pain: Qualified Codes: M25.511 - Pain in right shoulder; G89.29 - Other chronic pain Samreen Olson MD Dec 28, 2016 13:49
[2016-12-28 16:00] VITALS: BP 104/58; PULSE 69; RESP 18; TEMP 96.6; O2SAT 98
[2016-12-28] MEDS: diphenhydrAMINE HCL 50 MG CAP PO PRN (20:19)
[2016-12-28] MEDS: MAGNESIUM HYDROXIDE SUSP 30 ML CUP PO SCH (20:19)
[2016-12-28] MEDS: traZODone HCL 100 MG TAB PO SCH (20:19)
[2016-12-28] MEDS: PRAVASTATIN SOD 80 MG TAB PO SCH (20:19)
[2016-12-28] MEDS: LIDOCAINE HCL 5% PATCH T-DERMAL SCH (20:21)
[2016-12-29] MEDS: ACETAMINOPHEN/HYDROcodone 325 MG/10 MG TAB PO PRN ×5 (03:24→22:59)
[2016-12-29 03:30] VITALS: BP 108/72; PULSE 70; RESP 16; TEMP 96.1; O2SAT 97
[2016-12-29] MEDS: MORPHINE SULFATE 30 MG CONTROLLED RELEASE TAB PO SCH ×3 (05:53→20:51)
--- NOTE | 2016-12-29 08:06 | PD.ORT.PN ---
Subjective Subjective Remarks Patient complains of right foot pain around external fixator pin Objective Vitals Vital Signs Date Time Temp Pulse Resp B/P (MAP) Pulse Ox O2 Delivery O2 Flow Rate FiO2 12/29/16 03:30 96.1 70 16 108/72 (84) 97 12/28/16 16:00 96.6 69 18 104/58 (73) 98 12/28/16 12:00 96.5 71 18 112/57 (75) 99 I/O 12/28/16 12/28/16 12/28/16 12/29/16 12/29/16 12/29/16 07:00 15:00 23:00 07:00 15:00 23:00 Intake Total 480 ml 1200 ml 720 ml 480 ml Output Total 750 ml 1800 ml Balance -270 ml 1200 ml 720 ml -1320 ml Intake Oral 480 ml 1200 ml 720 ml 480 ml Output Urine Total 400 ml 1300 ml Drainage Total 350 ml 500 ml # Voids 7 3 # Bowel Movements 0 1 0 0 Result Diagram: 12/27/16 1001 12/27/16 1001 Imaging Last 24 hours Impressions Pelvis X-Ray 11/07/16 1355 Signed Impressions: Service Date/Time: Monday, November 07, 2016 13:34 - CONCLUSION: No acute disease. Behzad Finch Jr., MD Chest X-Ray 11/07/16 1355 Signed Impressions: Service Date/Time: Monday, November 07, 2016 13:34 - CONCLUSION: No acute disease. Jac Gonzales MD Objective Remarks RLE: Dressings clean and dry. intact. with full sensation and motor function. + exfix. pin sites--first metatarsal pin is loose, other pins appear to be clean and dry LLE: Wound VAC intact. Good seal. no sensation over medial foot. slight stiffness with dorsiflexion.CKS. slight drainage over distal aspect of graft. Assessment & Plan Assessment and Plan 1) Right Open Tibia Fracture s/p exfix revision with ORIF --- first metatarsal pin removed today 2) Left Open Tibia Fracture s/p Soleus muscle flap with IMN and removal of exfix 3) left tibia plateau fracture treated nonoperatively 4) s/p vac change with collagen grafting -NWB BLE -pin care BID right leg -veraflow vac placed on left leg -vac settings: -soak time: 3min -suction: 15min @ 100mmHg -maintain vac at all times -enough fluid in bag to last til approx late thu/ morning Salbador Mathias MD Dec 29, 2016 08:06
[2016-12-29] MEDS: REMOVE OLD LIDOCAINE PATCH T-DERMAL SCH (09:00)
[2016-12-29] MEDS: NEOMYCIN/POLYMYXIN/BACITRACIN OINT 15 GM TUBE TOPICAL SCH (09:00)
[2016-12-29] MEDS: THIAMINE HCL 100 MG TAB PO SCH (09:46)
[2016-12-29] MEDS: LACTOBACILLUS ACIDOPHILUS TAB PO SCH ×3 (09:46→17:43)
[2016-12-29] MEDS: PANTOPRAZOLE SOD 40 MG DELAYED RELEASE TAB PO SCH (09:46)
[2016-12-29] MEDS: ASCORBIC ACID 500 MG TAB PO SCH ×2 (09:46→20:30)
[2016-12-29] MEDS: ASPIRIN 81 MG CHEW TAB CHEW SCH (09:46)
[2016-12-29] MEDS: DOCUSATE SODIUM 50 MG/SENNA 8.6 MG TAB PO SCH ×2 (09:46→20:31)
[2016-12-29] MEDS: CALCIUM/VITAMIN D 250 MG/125 U TAB PO SCH ×3 (09:46→17:43)
[2016-12-29] MEDS: PROPRANOLOL HCL 10 MG TAB PO SCH ×2 (09:46→20:50)
[2016-12-29] MEDS: GABAPENTIN 300 MG CAP PO SCH ×3 (09:46→17:43)
[2016-12-29] MEDS: FOLIC ACID 1 MG TAB PO SCH (09:46)
[2016-12-29] MEDS: VANCOMYCIN 1,500 MG/NS 500 ML IV SCH ×8 (09:46→20:51)
[2016-12-29 09:47] VITALS: BP 119/62; PULSE 69; RESP 17; TEMP 97.2; O2SAT 98
[2016-12-29] MEDS: SODIUM CHLORIDE 0.9% FLUSH 10 ML FLUSH IV FLUSH SCH ×2 (09:47→20:30)
[2016-12-29] MEDS: ENOXAPARIN SODIUM 40 MG/0.4 ML SYRINGE SQ SCH (09:47)
[2016-12-29] MEDS: SUCRALFATE 1 GM/10 ML CUP PO SCH ×2 (09:47→20:30)
[2016-12-29] MEDS: diphenhydrAMINE HCL 50 MG CAP PO PRN (09:50)
--- NOTE | 2016-12-29 11:06 | HHI.PR ---
Subjective Remarks Follow-up for infection Patient has no complaints. He stated that the change Benadryl dose help with his itchiness while getting vancomycin. He had no other concerns. Objective Vitals Vital Signs Date Time Temp Pulse Resp B/P (MAP) Pulse Ox O2 Delivery O2 Flow Rate FiO2 12/29/16 09:47 97.2 69 17 119/62 (81) 98 12/29/16 03:30 96.1 70 16 108/72 (84) 97 12/28/16 16:00 96.6 69 18 104/58 (73) 98 12/28/16 12:00 96.5 71 18 112/57 (75) 99 I/O 12/28/16 12/28/16 12/28/16 12/29/16 12/29/16 12/29/16 07:00 15:00 23:00 07:00 15:00 23:00 Intake Total 480 ml 1200 ml 720 ml 480 ml Output Total 750 ml 1800 ml Balance -270 ml 1200 ml 720 ml -1320 ml Intake Oral 480 ml 1200 ml 720 ml 480 ml Output Urine Total 400 ml 1300 ml Drainage Total 350 ml 500 ml # Voids 7 3 # Bowel Movements 0 1 0 0 Result Diagram: 12/27/16 1001 12/27/16 1001 Objective Remarks GENERAL: Pt laying in his bed in no distress. CARDIOVASCULAR: Regular rate and rhythm without murmurs, gallops, or rubs. RESPIRATORY: Breath sounds equal bilaterally. No accessory muscle use. GASTROINTESTINAL: Abdomen soft, nondistended. Left lower quadrant tenderness elicited. MUSCULOSKELETAL: No cyanosis, or edema. Right leg ORIF. No tremor noted. Right with external fixator placed. Improvement in erythema and edema of the lower part of his ankle. PSYCHIATRIC: Alert and oriented x 3. Procedures 1.s/p I&D with ex fix application bilateral tibias s/p wound vac application left tibia 2.With the assistance of RN, under sterile technique the avulsed skin of the right middle finger was clipped. No bleeding noted. Patient gave consent 3.Open reduction internal fixation of right distal tibia and fibula fractures Nonoperative treatment left tibial plateau fracture Irrigation and debridement of left tibia shaft fracture, removal external fixation, soleus muscle rotational flap, intramedullary nail fixation left tibia , application of wound VAC dressing 4.11/13 Irrigation and debridement of left tibia, application wound VAC dressing 5. 11/28 Irrigation and debridement of left open tibia fracture with application of wound VAC dressing 6. 12/01 wound vac change at the bedside 7. 12/05 wound vac change at the bedside 8. 12/08 wound vac change at the bedside 9. 12/09 I&D left tibia, application of wound VAC dressing and application of AlloMax allograft dermal matrix Medications and IVs Current Medications Cefazolin Sodium/ Dextrose 50 ml @ As Directed STK-MED ONCE .ROUTE Last administered on 11/13/16 08:09; Start 11/07/16 at 13:58; Stop 11/07/16 at 13:59 ; Status DC Diphtheria/ Tetanus/Acell Pertussis (Boostrix Inj) 0.5 ml STK-MED ONCE IM ; Start 11/07/16 at 13:58; Stop 11/07/16 at 13:59; Status DC Morphine Sulfate (Morphine Inj) 8 mg STK-MED ONCE .ROUTE ; Start 11/07/16 at 14: 01; Stop 11/07/16 at 14:02; Status DC Hydromorphone HCl (Dilaudid Pf Inj) 1 mg STK-MED ONCE .ROUTE Last administered on 11/07/16 19:15; Start 11/07/16 at 14:05; Stop 11/07/16 at 14:06; Status DC Lactated Ringer's 1,000 ml @ 100 mls/hr Q10H IV ; Start 11/07/16 at 14:22; Stop 11/07/16 at 19:02; Status DC Sodium Chloride (NS Flush) 2 ml UNSCH PRN IV FLUSH FLUSH AFTER USING IV ACCESS Last administered on 12/11/16 11:31; Start 11/07/16 at 14:30 Sodium Chloride (NS Flush) 2 ml BID IV FLUSH Last administered on 12/29/16 09: 47; Start 11/07/16 at 21:00 Ondansetron HCl (Zofran Inj) 4 mg Q6H PRN IV NAUSEA OR VOMITING Last administered on 12/04/16 06:13; Start 11/07/16 at 14:30 Pantoprazole Sodium (Protonix Inj) 40 mg Q24H IV Last administered on 20:00; Start 11/07/16 at 17:00; Stop 11/08/16 at 08:09; Status DC Docusate Sodium (Colace) 100 mg BID PO ; Start 11/07/16 at 21:00; Stop 11/08/16 at 13:04; Status DC Cefazolin Sodium 1000 mg/Sodium Chloride 100 ml @ 200 mls/hr Q8H IV ; Start at 22:00; Stop 11/07/16 at 22:00; Status DC Miscellaneous Information (Post-op Orders (for Pharmacy)) STAT ONCE XX ; Start 11/07/16 at 14:30; Stop 11/07/16 at 15:39; Status DC Oxycodone/ Acetaminophen (Percocet 10-325 Mg) 1 tab Q4H PRN PO 3-5; Start 11/07 at 14:30; Stop 11/07/16 at 19:03; Status DC Hydromorphone HCl (Dilaudid Pf Inj) 1 mg Q2H PRN IV Pain 6-10; Start 11/07/16 at 14:30; Stop 11/07/16 at 19:11; Status DC Naloxone HCl (Narcan Inj) 0.4 mg UNSCH PRN IV SEE LABEL COMMENTS; Start at 14:30 Gentamicin Sulfate (Gentamicin Inj) 80 mg Q8H IM ; Start 11/07/16 at 14:30; Stop 11/07/16 at 15:37; Status DC Hydromorphone HCl (Dilaudid Pf Inj) 0.5 mg LINE LOCATOR DOSING PRN IV PUSH pain; Start 11/07/16 at 14:45; Stop 11/07/16 at 19:11; Status DC Gentamicin Sulfate/Sodium Chloride 100 ml @ 200 mls/hr Q8H IV ; Start 11/07/16 at 17:00; Status Cancel Miscellaneous Information (Post-op Orders (for Pharmacy)) UNSCH X1 XX ; Start 11/07/16 at 15:45; Stop 11/08/16 at 06:00; Status DC Cefazolin Sodium (Ancef Inj) 1,000 mg STK-MED ONCE .ROUTE Last administered on 11/07/16 16:26; Start 11/07/16 at 15:48; Stop 11/07/16 at 15:49; Status DC Gentamicin Sulfate (Gentamicin Inj) 80 mg STK-MED ONCE .ROUTE Last administered on 11/07/16 16:26; Start 11/07/16 at 15:49; Stop 11/07/16 at 15:50 ; Status DC Acetaminophen (Ofirmev Inj) 1,000 mg STK-MED ONCE IV ; Start 11/07/16 at 15:56; Stop 11/07/16 at 15:57; Status DC Midazolam HCl (Versed Inj) 2 mg STK-MED ONCE .ROUTE ; Start 11/07/16 at 15:56; Stop 11/07/16 at 15:57; Status DC Famotidine (Pepcid Inj) 20 mg STK-MED ONCE .ROUTE ; Start 11/07/16 at 15:56; Stop 11/07/16 at 15:57; Status DC Gentamicin Sulfate (Gentamicin Inj) 240 mg STK-MED ONCE IRRIGATION Last administered on 11/07/16 16:26; Start 11/07/16 at 16:26; Stop 11/07/16 at 16:42 ; Status DC Fentanyl Citrate (fentaNYL INJ) 250 mcg STK-MED ONCE .ROUTE ; Start 11/07/16 at 17:03; Stop 11/07/16 at 17:04; Status DC Gentamicin Sulfate (Gentamicin Inj) 240 mg STK-MED ONCE .ROUTE Last administered on 11/07/16 16:26; Start 11/07/16 at 17:10; Stop 11/07/16 at 17:11 ; Status DC Lactated Ringer's 1,000 ml @ 100 mls/hr Q10H IV Last administered on 07:51; Start 11/07/16 at 18:00; Stop 11/08/16 at 12:46; Status DC Enoxaparin Sodium (Lovenox Inj) 30 mg Q12H SQ ; Start 11/08/16 at 17:00; Stop at 11:48; Status DC Cefazolin Sodium/ Dextrose 50 ml @ 100 mls/hr Q8H IV Last administered on 11/10 08:16; Start 11/08/16 at 00:00; Stop 11/10/16 at 12:47; Status DC Gentamicin Sulfate/Sodium Chloride 100 ml @ 200 mls/hr Q8H IV Last administered on 11/10/16 16:30; Start 11/08/16 at 00:00; Stop 11/10/16 at 16:29 ; Status DC Acetaminophen/ Hydrocodone Bitart ([place] 10-325 Mg) 1 tab Q3H PRN PO PAIN 3<10 Last administered on 11/08/16 10:36; Start 11/07/16 at 18:00; Stop 11/08/16 at 13:04; Status DC Morphine Sulfate (Morphine Inj) 4 mg Q3H PRN IV PUSH Break thru Pain Last administered on 11/08/16 07:50; Start 11/07/16 at 18:00; Stop 11/08/16 at 12:21 ; Status DC Ketorolac Tromethamine (Toradol Inj) 30 mg Q12H IVP Last administered on 05:32; Start 11/07/16 at 18:00; Stop 11/10/16 at 06:01; Status DC Bacitracin (Baciguent Oint) 15 applic STK-MED ONCE .ROUTE Last administered on 11/07/16 18:09; Start 11/07/16 at 18:09; Stop 11/07/16 at 18:10; Status DC Miscellaneous Information ALL NURSING DEPARTME... UNSCH PRN .XX SEE LABEL COMMENTS; Start 11/07/16 at 18:33; Stop 11/08/16 at 18:32; Status DC Acetaminophen (Tylenol) 650 mg Q4H PRN PO Temp > 100.4, pain 1-2; Start at 08:15 Magnesium Hydroxide (Milk Of Magnesia Liq) 30 ml DAILY PRN PO for Severe Constipation Last administered on 11/09/16 20:15; Start 11/08/16 at 08:15; Stop 11/10/16 at 09:00; Status DC Calcium Carbonate (Tums Chew) 1,000 mg TID PRN CHEW DYSPEPSIA Last administered on 12/06/16 08:52; Start 11/08/16 at 08:15 Dextrose (D50w (Vial) Inj) 50 ml UNSCH PRN IV HYPOGLYCEMIA-SEE COMMENTS; Start 11/08/16 at 08:15; Stop 12/03/16 at 09:16; Status DC Glucagon (Glucagon Inj) 1 mg UNSCH PRN OTHER HYPOGLYCEMIA-SEE COMMENTS; Start 11/08/16 at 08:15; Stop 12/03/16 at 09:16; Status DC Insulin Aspart (NovoLOG SUPPLEMENTAL SCALE) 1 ACHS SLIDING SCALE SQ Last administered on 12/01/16 13:21; Start 11/08/16 at 11:00; Stop 12/03/16 at 09:16 ; Status DC Enalaprilat (Vasotec Inj) 1.25 mg Q6H PRN IV SBP> OR = 180, DBP> OR = 100; Start 11/08/16 at 08:15 Clonidine (Catapres) 0.1 mg Q6H PRN PO SBP> OR = 180, DBP> OR = 100; Start at 08:15 Gabapentin (Neurontin) 400 mg TID PO Last administered on 11/16/16 09:10; Start 11/08/16 at 13:00; Stop 11/16/16 at 11:46; Status DC Morphine Sulfate (Morphine Inj) 6 mg Q3H PRN IV PUSH PAIN 6-10 Last administered on 11/17/16 15:09; Start 11/08/16 at 15:00; Stop 11/18/16 at 16:37 ; Status DC Aspirin (Aspirin Chew) 81 mg DAILY CHEW Last administered on 12/29/16 09:46; Start 11/08/16 at 12:45 Ferrous Sulfate (Ferrous Sulfate) 325 mg DAILY PO Last administered on 08:11; Start 11/08/16 at 12:45; Stop 12/05/16 at 09:25; Status DC Lisinopril (Prinivil) 25 mg DAILY PO Last administered on 11/18/16 09:59; Start 11/08/16 at 12:45; Status Future Hold Nitroglycerin (Nitrostat Sl) 0.4 mg Q6HR PRN SL CHEST PAIN; Start 11/08/16 at 12:45 Pantoprazole Sodium (Protonix) 40 mg DAILY PO Last administered on 12/29/16 09 :46; Start 11/08/16 at 12:45 Pravastatin Sodium (Pravachol) 80 mg HS PO Last administered on 12/28/16 20:19 ; Start 11/08/16 at 21:00 Propranolol HCl (Inderal) 80 mg Q12HR PO Last administered on 11/18/16 10:01; Start 11/08/16 at 21:00; Stop 11/22/16 at 12:49; Status DC Miscellaneous (Pill Splitter) 1 ea UNSCH PRN OTHER SEE LABEL COMMENTS; Start at 12:45 Senna/Docusate Sodium (Elke-Colace) 1 tab BID PO Last administered on 09:46; Start 11/08/16 at 12:45; Status Future hold Lactulose (Lactulose Liq) 30 ml DAILY PRN PO No BM in 2 days; Start 11/08/16 at 12:45; Stop 11/10/16 at 07:47; Status DC Acetaminophen/ Hydrocodone Bitart ([place] 10-325 Mg) 1.5 tab Q3H PRN PO PAIN 3- 10 Last administered on 11/09/16 23:46; Start 11/08/16 at 15:00; Stop 11/10/16 at 12:45; Status DC Folic Acid (Folate) 1 mg DAILY PO Last administered on 11/12/16 09:14; Start 11/09/16 at 09:00; Stop 11/14/16 at 08:59; Status DC Thiamine HCl (Vitamin B1) 100 mg DAILY PO Last administered on 12/29/16 09:46 ; Start 11/09/16 at 09:00 Multivitamins/ Minerals Therapeutic (Theragran M Tab) 1 tab DAILY PO Last administered on 11/12/16 09:13; Start 11/09/16 at 09:00; Stop 11/14/16 at 08:59 ; Status DC Flumazenil (Romazicon Inj) 0.2 mg Q1M PRN IV PUSH SEE LABEL COMMENTS; Start at 13:00 Lorazepam (Ativan) 1 mg Q4H PRN PO CIWA 8 - 10; Start 11/08/16 at 13:00; Stop 11/26/16 at 16:05; Status DC Lorazepam (Ativan Inj) 1 mg Q4H PRN IV PUSH CIWA 8 - 10; Start 11/08/16 at 13: 00; Stop 11/26/16 at 16:05; Status DC Lorazepam (Ativan) 2 mg Q2H PRN PO CIWA 11-14; Start 11/08/16 at 13:00; Stop at 16:05; Status DC Lorazepam (Ativan Inj) 2 mg Q2H PRN IV PUSH CIWA 11-14; Start 11/08/16 at 13:00 ; Stop 11/26/16 at 16:05; Status DC Lorazepam (Ativan Inj) 2 mg Q1H PRN IV PUSH CIWA 15-20; Start 11/08/16 at 13:00 ; Stop 11/26/16 at 16:05; Status DC Lorazepam (Ativan Inj) 2 mg Q15M PRN IV PUSH CIWA > 20; Start 11/08/16 at 13:00 ; Stop 11/26/16 at 16:05; Status DC Haloperidol Lactate (Haldol Inj) 2 mg Q15M PRN IM SEE LABEL COMMENTS; Start at 13:00 Lactated Ringer's 1,000 ml @ 30 mls/hr Q24H PRN IV SEE LABEL COMMENTS; Start at 00:45; Stop 11/09/16 at 12:05; Status DC Sodium Chloride 500 ml @ 30 mls/hr [id number] PRN IV SEE LABEL COMMENTS; Start at 00:45; Stop 11/09/16 at 12:05; Status DC Metoprolol Tartrate (Lopressor) 25 mg MAINTENANCE MAN PRN PO SEE LABEL COMMENTS; Start 11/09/16 at 00:45; Stop 11/12/16 at 00:44; Status DC Povidone Iodine (Betadine 5% Antisepsis Kit) 1 applic MAINTENANCE MAN PRN EACH NARE SEE LABEL COMMENTS; Start 11/09/16 at 00:45; Stop 11/12/16 at 00:44; Status DC Chlorhexidine Gluconate (Chlorhexidine 2% Cloth) 3 pack MAINTENANCE MAN PRN TOPICAL SEE LABEL COMMENTS; Start 11/09/16 at 00:45; Stop 11/09/16 at 12:05; Status DC Insulin Human Regular (NovoLIN R INJ) See Protocol Table ... MAINTENANCE MAN PRN SQ SEE PROTOCOL TABLE; Start 11/09/16 at 00:45; Stop 11/12/16 at 00:44; Status DC Potassium Chloride (KCl) 20 meq ONCE ONCE PO Last administered on 11/09/16t 11 :40; Start 11/09/16 at 11:00; Stop 11/09/16 at 11:01; Status DC Neomycin/ Polymyxin/ Bacitracin (Neosporin Oint) 1 applic DAILY TOPICAL Last administered on 12/28/16 09:00; Start 11/10/16 at 09:00 Lactulose (Lactulose Liq) 30 ml DAILY PO Last administered on 12/02/16 09:18; Start 11/10/16 at 09:00; Stop 12/08/16 at 09:52; Status DC Magnesium Hydroxide (Milk Of Magnesia Liq) 30 ml HS PO Last administered on 20:19; Start 11/10/16 at 21:00; Status Future hold Famotidine (Pepcid Inj) 20 mg STK-MED ONCE .ROUTE Last administered on 08:51; Start 11/10/16 at 08:51; Stop 11/10/16 at 08:52; Status DC Albuterol Sulfate (Albuterol Neb) 2.5 mg STK-MED ONCE .ROUTE Last administered on 11/10/16 08:55; Start 11/10/16 at 08:53; Stop 11/10/16 at 08:54; Status DC Gentamicin Sulfate (Gentamicin Inj) 240 mg STK-MED ONCE .ROUTE Last administered on 11/10/16 09:48; Start 11/10/16 at 09:02; Stop 11/10/16 at 09:03 ; Status DC Acetaminophen (Ofirmev Inj) 1,000 mg STK-MED ONCE IV ; Start 11/10/16 at 09:13; Stop 11/10/16 at 09:14; Status DC Lactated Ringer's 1,000 ml @ 100 mls/hr Q10H IV Last administered on 00:53; Start 11/10/16 at 13:00; Stop 11/11/16 at 11:56; Status DC Enoxaparin Sodium (Lovenox Inj) 30 mg Q12H SQ Last administered on 12/04/16 00 :03; Start 11/11/16 at 00:00; Stop 12/04/16 at 09:43; Status DC Cefazolin Sodium/ Dextrose 50 ml @ 100 mls/hr Q8H IV Last administered on 11/13 00:05; Start 11/10/16 at 16:00; Stop 11/13/16 at 08:29; Status DC Gentamicin Sulfate/Sodium Chloride 100 ml @ 200 mls/hr Q8H IV Last administered on 11/13/16 10:00; Start 11/10/16 at 18:00; Stop 11/13/16 at 10:29 ; Status DC Acetaminophen/ Hydrocodone Bitart ([place] 10-325 Mg) 1 tab Q3H PRN PO PAIN 3<10 Last administered on 11/18/16 04:34; Start 11/10/16 at 11:45; Stop 11/18/16 at 16 :37; Status DC Calcium/Vitamin D (Oscal-D 250-125) 250 mg TID PO Last administered on 09:46; Start 11/10/16 at 13:00 Meperidine HCl (*DEMEROL INJ PERIprocedural ONLY) 25 mg STK-MED ONCE .ROUTE Last administered on 11/10/16 12:36; Start 11/10/16 at 12:36; Stop 11/10/16 at 12:37; Status DC Miscellaneous Information ALL NURSING DEPARTME... UNSCH PRN .XX SEE LABEL COMMENTS; Start 11/10/16 at 12:29; Stop 11/11/16 at 12:28; Status DC Midazolam HCl (Versed Inj) 2 mg STK-MED ONCE .ROUTE ; Start 11/10/16 at 12:48; Stop 11/10/16 at 12:49; Status DC Fentanyl Citrate (fentaNYL INJ) 250 mcg STK-MED ONCE .ROUTE ; Start 11/10/16 at 12:48; Stop 11/10/16 at 12:49; Status DC Morphine Sulfate (*morphine INJ PERIprocedure ONLY) 8 mg STK-MED ONCE .ROUTE Last administered on 11/10/16 14:36; Start 11/10/16 at 14:36; Stop 11/10/16 at 14:37; Status DC Bisacodyl (Dulcolax Ec) 10 mg ONCE ONCE PO Last administered on 11/11/16 10: 17; Start 11/11/16 at 07:00; Stop 11/11/16 at 07:04; Status DC Bisacodyl (Dulcolax Supp) 10 mg ONCE ONCE RECTAL Last administered on 10:17; Start 11/11/16 at 07:00; Stop 11/11/16 at 07:04; Status DC Sodium Chloride 250 ml @ 15 mls/hr ONCE ONCE IV Last administered on 11:19; Start 11/11/16 at 11:15; Stop 11/12/16 at 03:54; Status DC Furosemide (Lasix Inj) 20 mg ONCE ONCE IV ; Start 11/11/16 at 11:15; Stop 11/11 at 11:16; Status Cancel Furosemide (Lasix Inj) 20 mg ONCE ONCE IV Last administered on 11/12/16 11:18 ; Start 11/12/16 at 11:00; Stop 11/12/16 at 11:01; Status DC Albuterol/ Ipratropium (Duoneb Neb) 1 ampule Q4HR NEB PRN NEB wheezing; Start 11/12/16 at 13:15 Lactated Ringer's 1,000 ml @ 30 mls/hr Q24H PRN IV SEE LABEL COMMENTS; Start at 05:00; Stop 11/16/16 at 04:59; Status Cancel Sodium Chloride 500 ml @ 30 mls/hr [id number] PRN IV SEE LABEL COMMENTS; Start at 05:00; Stop 11/16/16 at 04:59; Status DC Metoprolol Tartrate (Lopressor) 25 mg MAINTENANCE MAN PRN PO SEE LABEL COMMENTS; Start 11/13/16 at 05:00; Stop 11/16/16 at 04:59; Status DC Povidone Iodine (Betadine 5% Antisepsis Kit) 1 applic MAINTENANCE MAN PRN EACH NARE SEE LABEL COMMENTS; Start 11/13/16 at 05:00; Stop 11/16/16 at 04:59; Status DC Chlorhexidine Gluconate (Chlorhexidine 2% Cloth) 3 pack MAINTENANCE MAN PRN TOPICAL SEE LABEL COMMENTS; Start 11/13/16 at 05:00; Stop 11/16/16 at 04:59; Status DC Lidocaine HCl (Xylocaine 2% Jelly) 30 applic STK-MED ONCE .ROUTE ; Start at 07:15; Stop 11/13/16 at 07:16; Status DC Mineral Oil (Muri-Lube Oil) 10 ml STK-MED ONCE .ROUTE ; Start 11/13/16 at 07:15 ; Stop 11/13/16 at 07:16; Status DC Gentamicin Sulfate (Gentamicin Inj) 240 mg STK-MED ONCE .ROUTE Last administered on 11/13/16 08:20; Start 11/13/16 at 07:15; Stop 11/13/16 at 07:16 ; Status DC Albuterol Sulfate (Albuterol Neb) 2.5 mg STK-MED ONCE .ROUTE ; Start 11/13/16 at 07:34; Stop 11/13/16 at 07:35; Status DC Dexamethasone Sodium Phosphate (Decadron Inj) 4 mg STK-MED ONCE .ROUTE ; Start 11/13/16 at 07:36; Stop 11/13/16 at 07:37; Status DC Famotidine (Pepcid Inj) 20 mg STK-MED ONCE .ROUTE ; Start 11/13/16 at 07:36; Stop 11/13/16 at 07:37; Status DC Albuterol/ Ipratropium (Duoneb Neb) 1 ampule STK-MED ONCE .ROUTE Last administered on 11/13/16 07:50; Start 11/13/16 at 07:47; Stop 11/13/16 at 07:48 ; Status DC Lactated Ringer's 1,000 ml @ 100 mls/hr Q10H IV Last administered on 12:14; Start 11/13/16 at 08:42; Stop 11/18/16 at 16:33; Status DC Cefazolin Sodium/ Dextrose 50 ml @ 100 mls/hr Q8H IV Last administered on 04:43; Start 11/13/16 at 12:00; Stop 11/20/16 at 11:59; Status DC Gentamicin Sulfate/Sodium Chloride 100 ml @ 200 mls/hr Q8H IV Last administered on 11/16/16 09:14; Start 11/13/16 at 18:00; Stop 11/16/16 at 17:59 ; Status DC Midazolam HCl (Versed Inj) 2 mg STK-MED ONCE .ROUTE ; Start 11/13/16 at 09:25; Stop 11/13/16 at 09:26; Status DC Fentanyl Citrate (fentaNYL INJ) 250 mcg STK-MED ONCE .ROUTE ; Start 11/13/16 at 09:25; Stop 11/13/16 at 09:26; Status DC Zolpidem Tartrate (Ambien) 5 mg HS PRN PO Insomnia Last administered on 23:44; Start 11/14/16 at 11:00 Trazodone HCl (Desyrel) 100 mg HS PO Last administered on 12/28/16 20:19; Start 11/14/16 at 21:00 Morphine Sulfate (Oramorph Sr) 15 mg Q12HR PO Last administered on 11/18/16 10: 00; Start 11/16/16 at 21:00; Stop 11/18/16 at 16:36; Status DC Morphine Sulfate (Oramorph Sr) 15 mg ONCE ONCE PO Last administered on 12:32; Start 11/16/16 at 10:15; Stop 11/16/16 at 10:24; Status DC Gabapentin (Neurontin) 600 mg TID PO Last administered on 12/29/16 09:46; Start 11/16/16 at 13:00 Sodium Chloride 1,000 ml @ 999 mls/hr BOLUS ONCE IV Last administered on 17:22; Start 11/18/16 at 16:45; Stop 11/18/16 at 17:45; Status DC Morphine Sulfate (Oramorph Sr) 30 mg Q12HR PO Last administered on 11/29/16 09 :24; Start 11/18/16 at 21:00; Stop 11/29/16 at 14:26; Status DC Morphine Sulfate (Morphine Inj) 6 mg Q4H PRN IV PUSH PAIN SCALE 5 TO 10 Last administered on 11/19/16 05:59; Start 11/18/16 at 16:45; Stop 11/20/16 at 00:46; Status DC Morphine Sulfate (Morphine Inj) 3 mg Q3H PRN IV PUSH PAIN SCALE 1 TO 4 Last administered on 11/19/16 16:36; Start 11/18/16 at 16:45; Stop 11/20/16 at 00:46; Status DC Sodium Chloride 1,000 ml @ 125 mls/hr Q8H IV Last administered on 11/19/16 16: 15; Start 11/19/16 at 00:15; Stop 11/19/16 at 19:21; Status DC Sodium Chloride 500 ml @ 500 mls/hr BOLUS ONCE IV Last administered on 00:15; Start 11/19/16 at 00:15; Stop 11/19/16 at 01:14; Status DC Nystatin (Mycostatin Powder) 1 applic Q12HR TOPICAL Last administered on 08:54; Start 11/19/16 at 21:00; Stop 11/28/16 at 13:46; Status DC Acetaminophen/ Hydrocodone Bitart ([place] 7.5-325 Mg) 1 tab Q4H PRN PO PAIN SCALE 1 TO 4; Start 11/20/16 at 00:45; Stop 11/28/16 at 13:46; Status DC Acetaminophen/ Hydrocodone Bitart ([place] 10-325 Mg) 1 tab Q4H PRN PO PAIN SCALE 3-5 Last administered on 12/23/16 08:58; Start 11/20/16 at 00:45 Hydromorphone HCl (Dilaudid Pf Inj) 1 mg Q4H PRN IV PUSH BREAKTHROUGH PAIN Last administered on 12/17/16 10:38; Start 11/20/16 at 00:45; Stop 12/18/16 at 10:47; Status DC Propranolol HCl (Inderal) 40 mg Q12HR PO Last administered on 12/08/16 08:01; Start 11/22/16 at 21:00; Stop 12/08/16 at 10:00; Status DC Lactated Ringer's 1,000 ml @ 30 mls/hr Q24H PRN IV SEE LABEL COMMENTS; Start at 02:45; Stop 11/27/16 at 02:44; Status DC Sodium Chloride 500 ml @ 30 mls/hr [id number] PRN IV SEE LABEL COMMENTS; Start 11/24/16 at 02:45; Stop 11/27/16 at 02:44; Status DC Povidone Iodine (Betadine 5% Antisepsis Kit) 1 applic MAINTENANCE MAN PRN EACH NARE SEE LABEL COMMENTS; Start 11/24/16 at 02:45; Stop 11/27/16 at 02:44; Status DC Chlorhexidine Gluconate (Chlorhexidine 2% Cloth) 3 pack MAINTENANCE MAN PRN TOPICAL SEE LABEL COMMENTS; Start 11/24/16 at 02:45; Stop 11/27/16 at 02:44; Status DC Insulin Human Regular (NovoLIN R INJ) See Protocol Table ... MAINTENANCE MAN PRN SQ SEE PROTOCOL TABLE; Start 11/24/16 at 02:45; Stop 11/27/16 at 02:44; Status DC Prochlorperazine Edisylate (Compazine Inj) 10 mg Q8H PRN IV PUSH NAUSEA/ VOMITING Last administered on 11/25/16 18:00; Start 11/25/16 at 16:15 Sodium Chloride 500 ml @ 500 mls/hr BOLUS ONCE IV Last administered on 18:06; Start 11/25/16 at 17:00; Stop 11/25/16 at 17:59; Status DC Gentamicin Sulfate (Gentamicin Inj) 240 mg STK-MED ONCE .ROUTE Last administered on 11/28/16 10:42; Start 11/28/16 at 07:18; Stop 11/28/16 at 07:19 ; Status DC Vancomycin HCl (Vancomycin Inj) 1,000 mg STK-MED ONCE .ROUTE Last administered on 12/09/16 15:25; Start 11/28/16 at 07:38; Stop 11/28/16 at 07:39; Status DC Cefazolin Sodium/ Dextrose 50 ml @ As Directed STK-MED ONCE .ROUTE Last administered on 12/09/16 15:20; Start 11/28/16 at 07:38; Stop 11/28/16 at 07:39 ; Status DC Sodium Chloride 250 ml @ As Directed STK-MED ONCE .ROUTE ; Start 11/28/16 at 07 :39; Stop 11/28/16 at 07:40; Status DC Fentanyl Citrate (fentaNYL INJ) 250 mcg STK-MED ONCE .ROUTE ; Start 11/28/16 at 10:15; Stop 11/28/16 at 10:16; Status DC Cefazolin Sodium (Ancef Inj) 1,000 mg STK-MED ONCE .ROUTE Last administered on 11/28/16 10:31; Start 11/28/16 at 10:23; Stop 11/28/16 at 10:24; Status DC Lactated Ringer's 1,000 ml @ 100 mls/hr Q10H IV ; Start 11/28/16 at 10:59; Stop 12/03/16 at 09:16; Status DC Cefazolin Sodium/ Dextrose 50 ml @ 100 mls/hr Q8H IV Last administered on 12/01 06:46; Start 11/28/16 at 15:00; Stop 12/01/16 at 14:59; Status DC Magnesium Hydroxide (Milk Of Magnfidencio Liq) 30 ml Q12H PRN PO MILD - MODERATE CONSTIPATION Last administered on 12/26/16 10:08; Start 11/28/16 at 11:30 Sennosides (Senokot) 17.2 mg Q12H PRN PO MODERATE - SEVERE CONSTIPATION Last administered on 12/25/16 09:48; Start 11/28/16 at 11:30 Bisacodyl (Dulcolax Supp) 10 mg DAILY PRN RECTAL SEVERE CONSITIPATION Last administered on 12/11/16 12:30; Start 11/28/16 at 11:30 Albuterol Sulfate (*ALBUTEROL NEB PERIprocedure ONLY) 2.5 mg STK-MED ONCE NEB Last administered on 11/28/16 11:38; Start 11/28/16 at 11:38; Stop 11/28/16 at 11:39; Status DC Dexamethasone Sodium Phosphate (Decadron Inj) 4 mg STK-MED ONCE .ROUTE ; Start 11/28/16 at 11:51; Stop 11/28/16 at 11:52; Status DC Dexamethasone Sodium Phosphate (Decadron Inj) 4 mg NOW ONCE IV Last administered on 11/28/16 12:00; Start 11/28/16 at 12:00; Stop 11/28/16 at 12:01 ; Status DC Miscellaneous Information ALL NURSING DEPARTME... UNSCH PRN .XX SEE LABEL COMMENTS; Start 11/28/16 at 11:22; Stop 11/29/16 at 11:21; Status DC Morphine Sulfate (*morphine INJ PERIprocedure ONLY) 8 mg STK-MED ONCE .ROUTE Last administered on 11/28/16 12:01; Start 11/28/16 at 12:01; Stop 11/28/16 at 12:02; Status DC Acetaminophen/ Hydrocodone Bitart ([place] 10-325 Mg) 1.5 tab Q4H PRN PO pain 6- 10 Last administered on 12/23/16 17:35; Start 11/28/16 at 15:00; Stop 12/23/16 at 18:38; Status DC Nystatin (Mycostatin Cream) 1 applic Q6HR TOPICAL Last administered on 05:00; Start 11/28/16 at 14:00; Stop 12/16/16 at 13:46; Status DC Morphine Sulfate (Oramorph Sr) 30 mg Q8HR PO Last administered on 12/03/16 06: 09; Start 11/29/16 at 22:00; Stop 12/03/16 at 12:16; Status DC Cetirizine HCl (ZyrTEC) 10 mg HS PO Last administered on 12/07/16 20:03; Start 12/01/16 at 21:00; Stop 12/08/16 at 20:59; Status DC Fluticasone Propionate (Flonase Jerzy Spr) 2 spray DAILY EACH NARE Last administered on 12/15/16 08:54; Start 12/01/16 at 11:00; Stop 12/15/16 at 10:59 ; Status DC Folic Acid (Folate) 1 mg DAILY PO Last administered on 12/29/16 09:46; Start 12/03/16 at 09:00 Morphine Sulfate (Oramorph Sr) 30 mg Q8HR PO Last administered on 12/29/16 05: 53; Start 12/03/16 at 14:00 Lactobacillus Acidophilus (Lactinex) 1 tab TID PO Last administered on 08:10; Start 12/04/16 at 09:00; Stop 12/05/16 at 09:26; Status DC Enoxaparin Sodium (Lovenox Inj) 40 mg DAILY SQ Last administered on 12/29/16 09:47; Start 12/05/16 at 09:00 Al Hydrox/Mg Hydrox/Simethicone (Mag-Al Plus Susp Liq) 30 ml ONCE ONCE PO Last administered on 12/04/16 11:55; Start 12/04/16 at 11:45; Stop 12/04/16 at 11:50; Status DC Al Hydrox/Mg Hydrox/Simethicone (Mag-Al Plus Susp Liq) 30 ml Q6HR PRN PO HEARTBURN, INDIGESTION Last administered on 12/06/16 08:52; Start 12/04/16 at 18:00 Sucralfate (Carafate Liq) 1 gm QID PO Last administered on 12/16/16 13:41; Start 12/05/16 at 09:00; Stop 12/16/16 at 13:43; Status DC Lactobacillus Acidophilus (Lactinex) 1 tab BID PO Last administered on 09:36; Start 12/05/16 at 21:00; Stop 12/18/16 at 10:47; Status DC Polyethylene Glycol (Miralax) 17 gm DAILY PRN PO CONSTIPATION; Start 12/08/16 at 10:00; Stop 12/11/16 at 15:18; Status DC Propranolol HCl (Inderal) 20 mg Q12HR PO Last administered on 12/09/16t 20:34; Start 12/08/16 at 21:00; Stop 12/10/16 at 07:34; Status DC Lactated Ringer's 1,000 ml @ 30 mls/hr Q24H PRN IV SEE LABEL COMMENTS; Start at 01:30; Stop 12/12/16 at 01:29; Status DC Sodium Chloride 500 ml @ 30 mls/hr [id number] PRN IV SEE LABEL COMMENTS; Start at 01:30; Stop 12/12/16 at 01:29; Status DC Povidone Iodine (Betadine 5% Antisepsis Kit) 1 applic MAINTENANCE MAN PRN EACH NARE SEE LABEL COMMENTS; Start 12/09/16 at 01:30; Stop 12/12/16 at 01:29; Status DC Chlorhexidine Gluconate (Chlorhexidine 2% Cloth) 3 pack MAINTENANCE MAN PRN TOPICAL SEE LABEL COMMENTS; Start 12/09/16 at 01:30; Stop 12/12/16 at 01:29; Status DC Insulin Human Regular (NovoLIN R INJ) See Protocol Table ... MAINTENANCE MAN PRN SQ SEE PROTOCOL TABLE; Start 12/09/16 at 01:30; Stop 12/12/16 at 01:29; Status DC Bupivacaine HCl/ Epinephrine Bitart (Sensorcaine-Epinephrine 0.25% Inj) 50 ml STK-MED ONCE .ROUTE ; Start 12/09/16 at 14:07; Stop 12/09/16 at 14:08; Status DC Mineral Oil (Muri-Lube Oil) 10 ml STK-MED ONCE .ROUTE ; Start 12/09/16 at 14:07 ; Stop 12/09/16 at 14:08; Status DC Gentamicin Sulfate (Gentamicin Inj) 240 mg STK-MED ONCE .ROUTE Last administered on 12/09/16 15:31; Start 12/09/16 at 14:07; Stop 12/09/16 at 14:08 ; Status DC Vancomycin HCl (Vancomycin Inj) 1,000 mg STK-MED ONCE .ROUTE ; Start 12/09/16 at 15:06; Stop 12/09/16 at 15:07; Status DC Cefazolin Sodium/ Dextrose 50 ml @ As Directed STK-MED ONCE .ROUTE ; Start 12/09 at 15:06; Stop 12/09/16 at 15:07; Status DC Lactated Ringer's 1,000 ml @ 100 mls/hr Q10H IV ; Start 12/09/16 at 15:57; Stop 12/16/16 at 13:45; Status DC Cefazolin Sodium/ Dextrose 50 ml @ 100 mls/hr Q8H IV Last administered on 12/16 13:42; Start 12/09/16 at 20:00; Stop 12/16/16 at 19:59; Status DC Gentamicin Sulfate/Sodium Chloride 100 ml @ 200 mls/hr Q8H IV Last administered on 12/12/16 12:25; Start 12/09/16 at 21:00; Stop 12/12/16 at 20:59 ; Status DC Morphine Sulfate (*morphine INJ PERIprocedure ONLY) 8 mg STK-MED ONCE .ROUTE Last administered on 12/09/16 16:32; Start 12/09/16 at 16:32; Stop 12/09/16 at 16:33; Status DC Fentanyl Citrate (fentaNYL INJ) 250 mcg STK-MED ONCE .ROUTE ; Start 12/09/16 at 16:33; Stop 12/09/16 at 16:34; Status DC Miscellaneous Information ALL NURSING DEPARTME... UNSCH PRN .XX SEE LABEL COMMENTS; Start 12/09/16 at 16:20; Stop 12/10/16 at 16:19; Status DC Morphine Sulfate (*morphine INJ PERIprocedure ONLY) 8 mg STK-MED ONCE .ROUTE Last administered on 12/09/16 17:01; Start 12/09/16 at 17:01; Stop 12/09/16 at 17:02; Status DC Propranolol HCl (Inderal) 10 mg Q12HR PO Last administered on 12/13/16 09:42; Start 12/10/16 at 09:00; Stop 12/13/16 at 10:32; Status DC Menthol/Methyl Salicylate (Aleks Daniels Oint) 1 applic UNSCH PRN TOPICAL arthritic pain Last administered on 12/12/16 17:51; Start 12/11/16 at 15:30 Propranolol HCl (Inderal) 20 mg Q12HR PO ; Start 12/13/16 at 21:00; Stop at 21:00; Status DC Propranolol HCl (Inderal) 10 mg Q12HR PO Last administered on 12/29/16 09:46; Start 12/13/16 at 21:00 Bacitracin (Baciguent Oint) 1 applic DAILY PRN TOPICAL WOUND VAC DRESSING CHANGE; Start 12/15/16 at 12:30 Sucralfate (Carafate Liq) 1 gm BID PO Last administered on 12/29/16 09:47; Start 12/16/16 at 21:00; Stop 12/30/16 at 20:59 Lidocaine HCl (Lidoderm 5% Patch.12 Hr) 1 patch DAILY T-DERMAL Last administered on 12/18/16 11:33; Start 12/18/16 at 10:00; Stop 12/19/16 at 19:35 ; Status DC Miscellaneous Information 1 Q24H T-DERMAL ; Start 12/18/16 at 21:00; Stop at 19:35; Status DC Lactobacillus Acidophilus (Lactinex) 1 tab TID PO Last administered on 09:46; Start 12/18/16 at 13:00 Lidocaine HCl (Lidoderm 5% Patch.12 Hr) 1 patch HS T-DERMAL Last administered on 12/21/16 21:09; Start 12/19/16 at 21:00 Miscellaneous Information 1 Q24H T-DERMAL Last administered on 12/24/16 09:00; Start 12/20/16 at 09:00 Propofol (Diprivan 200 Mg/20 ml Inj) 200 mg STK-MED ONCE IV ; Start 11/07/16 at 12:00; Stop 12/23/16 at 10:36; Status DC Ephedrine Sulfate (ePHEDrine/NS 25 MG/5 ML SYR) 50 mg STK-MED ONCE IV ; Start at 12:00; Stop 12/23/16 at 10:36; Status DC Neostigmine Methylsulfate (Prostigmin Inj) 3 mg STK-MED ONCE IV ; Start at 12:00; Stop 12/23/16 at 10:36; Status DC Phenylephrine HCl (Neosynephrine/ NS 1000 Mcg/10ml Syr) 1,000 mcg STK-MED ONCE IV ; Start 11/07/16 at 12:00; Stop 12/23/16 at 10:37; Status DC Ondansetron HCl (Zofran Inj) 4 mg STK-MED ONCE IV PUSH ; Start 11/07/16 at 12:00 ; Stop 12/23/16 at 10:37; Status DC Lactated Ringer's 1,000 ml @ As Directed STK-MED ONCE IV ; Start 11/07/16 at 12 :00; Stop 12/23/16 at 10:37; Status DC Parenteral Electrolytes 1,000 ml @ As Directed STK-MED ONCE IV ; Start at 12:00; Stop 12/23/16 at 10:37; Status DC Propofol (Diprivan 200 Mg/20 ml Inj) 400 mg STK-MED ONCE IV ; Start 11/10/16 at 12:00; Stop 12/23/16 at 12:04; Status DC Phenylephrine HCl (Neosynephrine/ NS 1000 Mcg/10ml Syr) 2,000 mcg STK-MED ONCE IV ; Start 11/10/16 at 12:00; Stop 12/23/16 at 12:04; Status DC Ondansetron HCl (Zofran Inj) 4 mg STK-MED ONCE IV PUSH ; Start 11/10/16 at 12:00 ; Stop 12/23/16 at 12:04; Status DC Lactated Ringer's 1,000 ml @ As Directed STK-MED ONCE IV ; Start 11/10/16 at 12 :00; Stop 12/23/16 at 12:04; Status DC Propofol (Diprivan 200 Mg/20 ml Inj) 200 mg STK-MED ONCE IV ; Start 11/13/16 at 12:00; Stop 12/23/16 at 12:38; Status DC Ephedrine Sulfate (ePHEDrine/NS 25 MG/5 ML SYR) 25 mg STK-MED ONCE IV ; Start at 12:00; Stop 12/23/16 at 12:38; Status DC Phenylephrine HCl (Neosynephrine/ NS 1000 Mcg/10ml Syr) 1,000 mcg STK-MED ONCE IV ; Start 11/13/16 at 12:00; Stop 12/23/16 at 12:38; Status DC Ondansetron HCl (Zofran Inj) 4 mg STK-MED ONCE IV PUSH ; Start 11/13/16 at 12:00 ; Stop 12/23/16 at 12:38; Status DC Lactated Ringer's 1,000 ml @ As Directed STK-MED ONCE IV ; Start 11/13/16 at 12 :00; Stop 12/23/16 at 12:38; Status DC Neostigmine Methylsulfate (Prostigmin Inj) 3 mg STK-MED ONCE IV ; Start at 12:00; Stop 12/23/16 at 12:38; Status DC Propofol (Diprivan 200 Mg/20 ml Inj) 200 mg STK-MED ONCE IV ; Start 11/28/16 at 12:00; Stop 12/23/16 at 12:50; Status DC Ephedrine Sulfate (ePHEDrine/NS 25 MG/5 ML SYR) 25 mg STK-MED ONCE IV ; Start at 12:00; Stop 12/23/16 at 12:50; Status DC Ondansetron HCl (Zofran Inj) 4 mg STK-MED ONCE IV PUSH ; Start 11/28/16 at 12:00 ; Stop 12/23/16 at 12:50; Status DC Propofol (Diprivan 200 Mg/20 ml Inj) 200 mg STK-MED ONCE IV ; Start 12/09/16 at 12:00; Stop 12/23/16 at 14:38; Status DC Ephedrine Sulfate (ePHEDrine/NS 25 MG/5 ML SYR) 50 mg STK-MED ONCE IV ; Start at 12:00; Stop 12/23/16 at 14:38; Status DC Ondansetron HCl (Zofran Inj) 4 mg STK-MED ONCE IV PUSH ; Start 12/09/16 at 12:00 ; Stop 12/23/16 at 14:38; Status DC Acetaminophen/ Hydrocodone Bitart ([place] 10-325 Mg) 2 tab Q4H PRN PO pain 6-10 Last administered on 12/29/16 07:22; Start 12/23/16 at 18:45 Vancomycin HCl 5000 mg/Sodium Chloride 3,000 ml @ 10 mls/hr Q24H PRN IRRIGATION DRESSING CHANGE; Start 12/25/16 at 08:00 Diphenhydramine HCl (Benadryl) 12.5 mg Q4H PRN PO itching Last administered on 12/28/16 07:54; Start 12/25/16 at 16:45; Stop 12/28/16 at 13:48; Status DC Ferrous Sulfate (Ferrous Sulfate) 325 mg BID@12,17 PO Last administered on 12/28 17:06; Start 12/26/16 at 12:00 Ascorbic Acid (Vitamin C) 500 mg BID PO Last administered on 12/29/16 09:46; Start 12/26/16 at 09:00 Pharmacy Profile Note 0 ml @ 0 mls/hr UNSCH OTHER ; Start 12/26/16 at 14:45 Vancomycin HCl 1500 mg/Sodium Chloride 515 ml @ 257.5 mls/ hr Q12H IV Last administered on 12/26/16 20:17; Start 12/26/16 at 17:00; Stop 12/27/16 at 04:54; Status DC Miscellaneous Information SPECIFIC LAB TO BE LEANNA... ONCE ONCE .XX ; Start 12/28 at 04:45; Stop 12/28/16 at 04:46; Status Cancel Vancomycin HCl 1500 mg/Sodium Chloride 515 ml @ 257.5 mls/ hr Q12H IV Last administered on 12/29/16 09:46; Start 12/27/16 at 08:00 Miscellaneous Information SPECIFIC LAB TO BE LEANNA... ONCE ONCE .XX ; Start 12/28 at 07:45; Stop 12/28/16 at 07:46; Status DC Miscellaneous Information SPECIFIC LAB TO BE LEANNA... ONCE ONCE .XX ; Start 12/29 at 20:45; Stop 12/29/16 at 20:46 Diphenhydramine HCl (Benadryl) 50 mg Q4H PRN PO itching Last administered on 09:50; Start 12/28/16 at 16:45 A/P Problem List: (1) Fracture of tibia, left, open ICD Code: S82.202B - Unspecified fracture of shaft of left tibia, initial encounter for open fracture type I or II Status: Acute (2) Fracture of tibia, right, open ICD Code: S82.201B - Unspecified fracture of shaft of right tibia, initial encounter for open fracture type I or II Status: Acute (3) Hypotension ICD Code: I95.9 - Hypotension, unspecified Status: Acute (4) Right shoulder pain ICD Code: M25.511 - Pain in right shoulder Assessment and Plan 61-year-old male admitted secondary to bilateral leg trauma after car fell on his legs while he was working on. Open fractures were present bilaterally. MRSA: -ID consulted stated to continue with vancomycin. Iron deficiency: -Supplementation given. Constipation - Patient's diarrhea has resolved, no sample was able to be collected for C. difficile - Stool softeners resumed Bilateral open tibia-fibula fractures Left tibial plateau fracture - Open fractures have been surgically repaired, right side has external fixation - Continue wound VAC left leg as per orthopedic surgery recommendations. Undergoing serial wound vac changes per ortho. - left tibial plateau fracture treated nonoperatively - Pin care BID to right leg - NWB BLEs - Lortab dose when necessary, Oramorph 30mg every 8 hours. -Orthopedics increased [place] to 20 mg per administration. Acute blood loss anemia - Related to trauma vs post op blood loss - Status post transfusion of 2 units of packed red blood cells in 11/12/16. - on iron supplementation daily. Iron studies reviewed. - hemoglobin stable - monitor CBC as indicated Coronary artery disease with h/o previous CABG - stable. Patient is asymptomatic. - Continue propranolol and statin - ASA 81mg daily - Clonidine PRN Hypertension - controlled - MARGIE inhibitor held due to hypotension. - Narcotics seem to have a depressive affect on this patient, however blood pressure has much improved after the patient was taken off IV morphine Diabetes mellitus type 2 - blood sugars well controlled Alcohol abuse Transaminitis, resolved - AST and ALT now within normal range. - Continue with daily thiamine and folic acid - Alcohol cessation recommended Tobacco abuse - Cessation recommended. Chronic essential tremor - Continue Propranolol at lower dose due to bradycardia with holding parameters, HR <55 GI prophylaxis: PPI DVT prophylaxis: Lovenox sq Problem Qualifiers (1) Fracture of tibia, left, open: (2) Fracture of tibia, right, open: (3) Hypotension: (4) Right shoulder pain: Qualified Codes: M25.511 - Pain in right shoulder; G89.29 - Other chronic pain Samreen Olson MD Dec 29, 2016 11:06
[2016-12-29] MEDS: FERROUS SULFATE 325 MG (65 MG ELEMENTAL IRON) TAB PO SCH ×2 (12:13→17:43)
[2016-12-29 12:15] VITALS: BP 107/58; PULSE 64; RESP 17; TEMP 96.1; O2SAT 97
[2016-12-29 16:00] VITALS: BP 107/57; PULSE 68; RESP 18; TEMP 96.1; O2SAT 99
[2016-12-29 20:05] VITALS: BP 109/59; PULSE 75; RESP 18; TEMP 97.9; O2SAT 99
[2016-12-29] MEDS: PRAVASTATIN SOD 80 MG TAB PO SCH (20:30)
[2016-12-29] MEDS: traZODone HCL 100 MG TAB PO SCH (20:30)
[2016-12-29] MEDS: MAGNESIUM HYDROXIDE SUSP 30 ML CUP PO SCH (20:31)
[2016-12-29] MEDS: LIDOCAINE HCL 5% PATCH T-DERMAL SCH (20:31)
[2016-12-29] MEDS ORDERED: PHARMACY ORDERED LAB ONE (20:45)
[2016-12-29] MEDS: ZOLPIDEM TARTRATE 5 MG TAB PO PRN (22:59)
[2016-12-30] MEDS: ACETAMINOPHEN/HYDROcodone 325 MG/10 MG TAB PO PRN ×4 (04:49→22:11)
[2016-12-30 08:00] VITALS: BP 123/67; PULSE 56; RESP 18; TEMP 97.1; O2SAT 98
[2016-12-30] MEDS: MORPHINE SULFATE 30 MG CONTROLLED RELEASE TAB PO SCH ×4 (08:29→22:06)
[2016-12-30] MEDS: LACTOBACILLUS ACIDOPHILUS TAB PO SCH ×3 (08:29→17:40)
[2016-12-30] MEDS: PANTOPRAZOLE SOD 40 MG DELAYED RELEASE TAB PO SCH (08:30)
[2016-12-30] MEDS: ASPIRIN 81 MG CHEW TAB CHEW SCH (08:30)
[2016-12-30] MEDS: GABAPENTIN 300 MG CAP PO SCH ×3 (08:30→17:40)
[2016-12-30] MEDS: THIAMINE HCL 100 MG TAB PO SCH (08:30)
[2016-12-30] MEDS: ASCORBIC ACID 500 MG TAB PO SCH ×2 (08:30→22:05)
[2016-12-30] MEDS: CALCIUM/VITAMIN D 250 MG/125 U TAB PO SCH ×3 (08:30→17:40)
[2016-12-30] MEDS: DOCUSATE SODIUM 50 MG/SENNA 8.6 MG TAB PO SCH ×2 (08:30→22:05)
[2016-12-30] MEDS: ENOXAPARIN SODIUM 40 MG/0.4 ML SYRINGE SQ SCH (08:30)
[2016-12-30] MEDS: FOLIC ACID 1 MG TAB PO SCH (08:30)
[2016-12-30] MEDS: SUCRALFATE 1 GM/10 ML CUP PO SCH (08:30)
[2016-12-30] MEDS: PROPRANOLOL HCL 10 MG TAB PO SCH ×2 (08:30→22:06)
[2016-12-30] MEDS: REMOVE OLD LIDOCAINE PATCH T-DERMAL SCH (08:31)
[2016-12-30] MEDS: NEOMYCIN/POLYMYXIN/BACITRACIN OINT 15 GM TUBE TOPICAL SCH (08:31)
[2016-12-30] MEDS: VANCOMYCIN 1,500 MG/NS 500 ML IV SCH ×4 (08:31→23:03)
[2016-12-30] MEDS: SODIUM CHLORIDE 0.9% FLUSH 10 ML FLUSH IV FLUSH SCH ×2 (08:31→22:06)
[2016-12-30] MEDS: diphenhydrAMINE HCL 50 MG CAP PO PRN ×2 (08:39→22:11)
[2016-12-30 11:59] VITALS: BP 112/66; PULSE 59; RESP 18; TEMP 97.9; O2SAT 97
[2016-12-30] MEDS: FERROUS SULFATE 325 MG (65 MG ELEMENTAL IRON) TAB PO SCH ×2 (12:19→17:40)
--- NOTE | 2016-12-30 14:33 | HHI.PR ---
Subjective Remarks f/u for infection patient has no complaints. He stated he is doing well but needs the hardware out. he remains afebrile. Objective Vitals Vital Signs Date Time Temp Pulse Resp B/P (MAP) Pulse Ox O2 Delivery O2 Flow Rate FiO2 12/30/16 11:59 97.9 59 18 112/66 (81) 97 12/30/16 08:00 97.1 56 18 123/67 (85) 98 12/29/16 20:05 97.9 75 18 109/59 (76) 99 12/29/16 16:00 96.1 68 18 107/57 (74) 99 I/O 12/29/16 12/29/16 12/29/16 12/30/16 12/30/16 12/30/16 07:00 15:00 23:00 07:00 15:00 23:00 Intake Total 480 ml 1200 ml 360 ml 480 ml Output Total 1800 ml 300 ml 700 ml 800 ml Balance -1320 ml 900 ml -340 ml -320 ml Intake Oral 480 ml 1200 ml 360 ml 480 ml Output Urine Total 1300 ml 700 ml 800 ml Drainage Total 500 ml 300 ml # Voids 6 # Bowel Movements 0 1 0 0 Result Diagram: 12/27/16 1001 12/27/16 1001 Objective Remarks GENERAL: Pt laying in his bed in no distress. CARDIOVASCULAR: Regular rate and rhythm without murmurs, gallops, or rubs. RESPIRATORY: Breath sounds equal bilaterally. No accessory muscle use. GASTROINTESTINAL: Abdomen soft, nondistended. Left lower quadrant tenderness elicited. MUSCULOSKELETAL: No cyanosis, or edema. Right leg ORIF. No tremor noted. Right with external fixator placed. Improvement in erythema and edema of the lower part of his ankle. PSYCHIATRIC: Alert and oriented x 3. Procedures 1.s/p I&D with ex fix application bilateral tibias s/p wound vac application left tibia 2.With the assistance of RN, under sterile technique the avulsed skin of the right middle finger was clipped. No bleeding noted. Patient gave consent 3.Open reduction internal fixation of right distal tibia and fibula fractures Nonoperative treatment left tibial plateau fracture Irrigation and debridement of left tibia shaft fracture, removal external fixation, soleus muscle rotational flap, intramedullary nail fixation left tibia , application of wound VAC dressing 4.11/13 Irrigation and debridement of left tibia, application wound VAC dressing 5. 11/28 Irrigation and debridement of left open tibia fracture with application of wound VAC dressing 6. 12/01 wound vac change at the bedside 7. 12/05 wound vac change at the bedside 8. 12/08 wound vac change at the bedside 9. 12/09 I&D left tibia, application of wound VAC dressing and application of AlloMax allograft dermal matrix Medications and IVs Current Medications Cefazolin Sodium/ Dextrose 50 ml @ As Directed STK-MED ONCE .ROUTE Last administered on 11/13/16 08:09; Start 11/07/16 at 13:58; Stop 11/07/16 at 13:59 ; Status DC Diphtheria/ Tetanus/Acell Pertussis (Boostrix Inj) 0.5 ml STK-MED ONCE IM ; Start 11/07/16 at 13:58; Stop 11/07/16 at 13:59; Status DC Morphine Sulfate (Morphine Inj) 8 mg STK-MED ONCE .ROUTE ; Start 11/07/16 at 14: 01; Stop 11/07/16 at 14:02; Status DC Hydromorphone HCl (Dilaudid Pf Inj) 1 mg STK-MED ONCE .ROUTE Last administered on 11/07/16 19:15; Start 11/07/16 at 14:05; Stop 11/07/16 at 14:06; Status DC Lactated Ringer's 1,000 ml @ 100 mls/hr Q10H IV ; Start 11/07/16 at 14:22; Stop 11/07/16 at 19:02; Status DC Sodium Chloride (NS Flush) 2 ml UNSCH PRN IV FLUSH FLUSH AFTER USING IV ACCESS Last administered on 12/11/16 11:31; Start 11/07/16 at 14:30 Sodium Chloride (NS Flush) 2 ml BID IV FLUSH Last administered on 12/30/16 08: 31; Start 11/07/16 at 21:00 Ondansetron HCl (Zofran Inj) 4 mg Q6H PRN IV NAUSEA OR VOMITING Last administered on 12/04/16 06:13; Start 11/07/16 at 14:30 Pantoprazole Sodium (Protonix Inj) 40 mg Q24H IV Last administered on 20:00; Start 11/07/16 at 17:00; Stop 11/08/16 at 08:09; Status DC Docusate Sodium (Colace) 100 mg BID PO ; Start 11/07/16 at 21:00; Stop 11/08/16 at 13:04; Status DC Cefazolin Sodium 1000 mg/Sodium Chloride 100 ml @ 200 mls/hr Q8H IV ; Start at 22:00; Stop 11/07/16 at 22:00; Status DC Miscellaneous Information (Post-op Orders (for Pharmacy)) STAT ONCE XX ; Start 11/07/16 at 14:30; Stop 11/07/16 at 15:39; Status DC Oxycodone/ Acetaminophen (Percocet 10-325 Mg) 1 tab Q4H PRN PO 3-5; Start 11/07 at 14:30; Stop 11/07/16 at 19:03; Status DC Hydromorphone HCl (Dilaudid Pf Inj) 1 mg Q2H PRN IV Pain 6-10; Start 11/07/16 at 14:30; Stop 11/07/16 at 19:11; Status DC Naloxone HCl (Narcan Inj) 0.4 mg UNSCH PRN IV SEE LABEL COMMENTS; Start at 14:30 Gentamicin Sulfate (Gentamicin Inj) 80 mg Q8H IM ; Start 11/07/16 at 14:30; Stop 11/07/16 at 15:37; Status DC Hydromorphone HCl (Dilaudid Pf Inj) 0.5 mg CLERK TELEVISION [employer]ODUCTION DOSING PRN IV PUSH pain; Start 11/07/16 at 14:45; Stop 11/07/16 at 19:11; Status DC Gentamicin Sulfate/Sodium Chloride 100 ml @ 200 mls/hr Q8H IV ; Start 11/07/16 at 17:00; Status Cancel Miscellaneous Information (Post-op Orders (for Pharmacy)) UNSCH X1 XX ; Start 11/07/16 at 15:45; Stop 11/08/16 at 06:00; Status DC Cefazolin Sodium (Ancef Inj) 1,000 mg STK-MED ONCE .ROUTE Last administered on 11/07/16 16:26; Start 11/07/16 at 15:48; Stop 11/07/16 at 15:49; Status DC Gentamicin Sulfate (Gentamicin Inj) 80 mg STK-MED ONCE .ROUTE Last administered on 11/07/16 16:26; Start 11/07/16 at 15:49; Stop 11/07/16 at 15:50 ; Status DC Acetaminophen (Ofirmev Inj) 1,000 mg STK-MED ONCE IV ; Start 11/07/16 at 15:56; Stop 11/07/16 at 15:57; Status DC Midazolam HCl (Versed Inj) 2 mg STK-MED ONCE .ROUTE ; Start 11/07/16 at 15:56; Stop 11/07/16 at 15:57; Status DC Famotidine (Pepcid Inj) 20 mg STK-MED ONCE .ROUTE ; Start 11/07/16 at 15:56; Stop 11/07/16 at 15:57; Status DC Gentamicin Sulfate (Gentamicin Inj) 240 mg STK-MED ONCE IRRIGATION Last administered on 11/07/16 16:26; Start 11/07/16 at 16:26; Stop 11/07/16 at 16:42 ; Status DC Fentanyl Citrate (fentaNYL INJ) 250 mcg STK-MED ONCE .ROUTE ; Start 11/07/16 at 17:03; Stop 11/07/16 at 17:04; Status DC Gentamicin Sulfate (Gentamicin Inj) 240 mg STK-MED ONCE .ROUTE Last administered on 11/07/16 16:26; Start 11/07/16 at 17:10; Stop 11/07/16 at 17:11 ; Status DC Lactated Ringer's 1,000 ml @ 100 mls/hr Q10H IV Last administered on 07:51; Start 11/07/16 at 18:00; Stop 11/08/16 at 12:46; Status DC Enoxaparin Sodium (Lovenox Inj) 30 mg Q12H SQ ; Start 11/08/16 at 17:00; Stop at 11:48; Status DC Cefazolin Sodium/ Dextrose 50 ml @ 100 mls/hr Q8H IV Last administered on 11/10 08:16; Start 11/08/16 at 00:00; Stop 11/10/16 at 12:47; Status DC Gentamicin Sulfate/Sodium Chloride 100 ml @ 200 mls/hr Q8H IV Last administered on 11/10/16 16:30; Start 11/08/16 at 00:00; Stop 11/10/16 at 16:29 ; Status DC Acetaminophen/ Hydrocodone Bitart ([place] 10-325 Mg) 1 tab Q3H PRN PO PAIN 3<10 Last administered on 11/08/16 10:36; Start 11/07/16 at 18:00; Stop 11/08/16 at 13:04; Status DC Morphine Sulfate (Morphine Inj) 4 mg Q3H PRN IV PUSH Break thru Pain Last administered on 11/08/16 07:50; Start 11/07/16 at 18:00; Stop 11/08/16 at 12:21 ; Status DC Ketorolac Tromethamine (Toradol Inj) 30 mg Q12H IVP Last administered on 05:32; Start 11/07/16 at 18:00; Stop 11/10/16 at 06:01; Status DC Bacitracin (Baciguent Oint) 15 applic STK-MED ONCE .ROUTE Last administered on 11/07/16 18:09; Start 11/07/16 at 18:09; Stop 11/07/16 at 18:10; Status DC Miscellaneous Information ALL NURSING DEPARTME... UNSCH PRN .XX SEE LABEL COMMENTS; Start 11/07/16 at 18:33; Stop 11/08/16 at 18:32; Status DC Acetaminophen (Tylenol) 650 mg Q4H PRN PO Temp > 100.4, pain 1-2; Start at 08:15 Magnesium Hydroxide (Milk Of Magnesia Liq) 30 ml DAILY PRN PO for Severe Constipation Last administered on 11/09/16 20:15; Start 11/08/16 at 08:15; Stop 11/10/16 at 09:00; Status DC Calcium Carbonate (Tums Chew) 1,000 mg TID PRN CHEW DYSPEPSIA Last administered on 12/06/16 08:52; Start 11/08/16 at 08:15 Dextrose (D50w (Vial) Inj) 50 ml UNSCH PRN IV HYPOGLYCEMIA-SEE COMMENTS; Start 11/08/16 at 08:15; Stop 12/03/16 at 09:16; Status DC Glucagon (Glucagon Inj) 1 mg UNSCH PRN OTHER HYPOGLYCEMIA-SEE COMMENTS; Start 11/08/16 at 08:15; Stop 12/03/16 at 09:16; Status DC Insulin Aspart (NovoLOG SUPPLEMENTAL SCALE) 1 ACHS SLIDING SCALE SQ Last administered on 12/01/16 13:21; Start 11/08/16 at 11:00; Stop 12/03/16 at 09:16 ; Status DC Enalaprilat (Vasotec Inj) 1.25 mg Q6H PRN IV SBP> OR = 180, DBP> OR = 100; Start 11/08/16 at 08:15 Clonidine (Catapres) 0.1 mg Q6H PRN PO SBP> OR = 180, DBP> OR = 100; Start at 08:15 Gabapentin (Neurontin) 400 mg TID PO Last administered on 11/16/16 09:10; Start 11/08/16 at 13:00; Stop 11/16/16 at 11:46; Status DC Morphine Sulfate (Morphine Inj) 6 mg Q3H PRN IV PUSH PAIN 6-10 Last administered on 11/17/16 15:09; Start 11/08/16 at 15:00; Stop 11/18/16 at 16:37 ; Status DC Aspirin (Aspirin Chew) 81 mg DAILY CHEW Last administered on 12/30/16 08:30; Start 11/08/16 at 12:45 Ferrous Sulfate (Ferrous Sulfate) 325 mg DAILY PO Last administered on 08:11; Start 11/08/16 at 12:45; Stop 12/05/16 at 09:25; Status DC Lisinopril (Prinivil) 25 mg DAILY PO Last administered on 11/18/16 09:59; Start 11/08/16 at 12:45; Status Future Hold Nitroglycerin (Nitrostat Sl) 0.4 mg Q6HR PRN SL CHEST PAIN; Start 11/08/16 at 12:45 Pantoprazole Sodium (Protonix) 40 mg DAILY PO Last administered on 12/30/16 08 :30; Start 11/08/16 at 12:45 Pravastatin Sodium (Pravachol) 80 mg HS PO Last administered on 12/29/16 20:30 ; Start 11/08/16 at 21:00 Propranolol HCl (Inderal) 80 mg Q12HR PO Last administered on 11/18/16 10:01; Start 11/08/16 at 21:00; Stop 11/22/16 at 12:49; Status DC Miscellaneous (Pill Splitter) 1 ea UNSCH PRN OTHER SEE LABEL COMMENTS; Start at 12:45 Senna/Docusate Sodium (Elke-Colace) 1 tab BID PO Last administered on 08:30; Start 11/08/16 at 12:45; Status Future hold Lactulose (Lactulose Liq) 30 ml DAILY PRN PO No BM in 2 days; Start 11/08/16 at 12:45; Stop 11/10/16 at 07:47; Status DC Acetaminophen/ Hydrocodone Bitart ([place] 10-325 Mg) 1.5 tab Q3H PRN PO PAIN 3- 10 Last administered on 11/09/16 23:46; Start 11/08/16 at 15:00; Stop 11/10/16 at 12:45; Status DC Folic Acid (Folate) 1 mg DAILY PO Last administered on 11/12/16 09:14; Start 11/09/16 at 09:00; Stop 11/14/16 at 08:59; Status DC Thiamine HCl (Vitamin B1) 100 mg DAILY PO Last administered on 12/30/16 08:30 ; Start 11/09/16 at 09:00 Multivitamins/ Minerals Therapeutic (Theragran M Tab) 1 tab DAILY PO Last administered on 11/12/16 09:13; Start 11/09/16 at 09:00; Stop 11/14/16 at 08:59 ; Status DC Flumazenil (Romazicon Inj) 0.2 mg Q1M PRN IV PUSH SEE LABEL COMMENTS; Start at 13:00 Lorazepam (Ativan) 1 mg Q4H PRN PO CIWA 8 - 10; Start 11/08/16 at 13:00; Stop 11/26/16 at 16:05; Status DC Lorazepam (Ativan Inj) 1 mg Q4H PRN IV PUSH CIWA 8 - 10; Start 11/08/16 at 13: 00; Stop 11/26/16 at 16:05; Status DC Lorazepam (Ativan) 2 mg Q2H PRN PO CIWA 11-14; Start 11/08/16 at 13:00; Stop at 16:05; Status DC Lorazepam (Ativan Inj) 2 mg Q2H PRN IV PUSH CIWA 11-14; Start 11/08/16 at 13:00 ; Stop 11/26/16 at 16:05; Status DC Lorazepam (Ativan Inj) 2 mg Q1H PRN IV PUSH CIWA 15-20; Start 11/08/16 at 13:00 ; Stop 11/26/16 at 16:05; Status DC Lorazepam (Ativan Inj) 2 mg Q15M PRN IV PUSH CIWA > 20; Start 11/08/16 at 13:00 ; Stop 11/26/16 at 16:05; Status DC Haloperidol Lactate (Haldol Inj) 2 mg Q15M PRN IM SEE LABEL COMMENTS; Start at 13:00 Lactated Ringer's 1,000 ml @ 30 mls/hr Q24H PRN IV SEE LABEL COMMENTS; Start at 00:45; Stop 11/09/16 at 12:05; Status DC Sodium Chloride 500 ml @ 30 mls/hr [id number] PRN IV SEE LABEL COMMENTS; Start at 00:45; Stop 11/09/16 at 12:05; Status DC Metoprolol Tartrate (Lopressor) 25 mg DEMAND GENERATOR MANAGER PRN PO SEE LABEL COMMENTS; Start 11/09/16 at 00:45; Stop 11/12/16 at 00:44; Status DC Povidone Iodine (Betadine 5% Antisepsis Kit) 1 applic DEMAND GENERATOR MANAGER PRN EACH NARE SEE LABEL COMMENTS; Start 11/09/16 at 00:45; Stop 11/12/16 at 00:44; Status DC Chlorhexidine Gluconate (Chlorhexidine 2% Cloth) 3 pack DEMAND GENERATOR MANAGER PRN TOPICAL SEE LABEL COMMENTS; Start 11/09/16 at 00:45; Stop 11/09/16 at 12:05; Status DC Insulin Human Regular (NovoLIN R INJ) See Protocol Table ... DEMAND GENERATOR MANAGER PRN SQ SEE PROTOCOL TABLE; Start 11/09/16 at 00:45; Stop 11/12/16 at 00:44; Status DC Potassium Chloride (KCl) 20 meq ONCE ONCE PO Last administered on 11/09/16t 11 :40; Start 11/09/16 at 11:00; Stop 11/09/16 at 11:01; Status DC Neomycin/ Polymyxin/ Bacitracin (Neosporin Oint) 1 applic DAILY TOPICAL Last administered on 12/28/16 09:00; Start 11/10/16 at 09:00 Lactulose (Lactulose Liq) 30 ml DAILY PO Last administered on 12/02/16 09:18; Start 11/10/16 at 09:00; Stop 12/08/16 at 09:52; Status DC Magnesium Hydroxide (Milk Of Magnesia Liq) 30 ml HS PO Last administered on 20:19; Start 11/10/16 at 21:00; Status Future hold Famotidine (Pepcid Inj) 20 mg STK-MED ONCE .ROUTE Last administered on 08:51; Start 11/10/16 at 08:51; Stop 11/10/16 at 08:52; Status DC Albuterol Sulfate (Albuterol Neb) 2.5 mg STK-MED ONCE .ROUTE Last administered on 11/10/16 08:55; Start 11/10/16 at 08:53; Stop 11/10/16 at 08:54; Status DC Gentamicin Sulfate (Gentamicin Inj) 240 mg STK-MED ONCE .ROUTE Last administered on 11/10/16 09:48; Start 11/10/16 at 09:02; Stop 11/10/16 at 09:03 ; Status DC Acetaminophen (Ofirmev Inj) 1,000 mg STK-MED ONCE IV ; Start 11/10/16 at 09:13; Stop 11/10/16 at 09:14; Status DC Lactated Ringer's 1,000 ml @ 100 mls/hr Q10H IV Last administered on 00:53; Start 11/10/16 at 13:00; Stop 11/11/16 at 11:56; Status DC Enoxaparin Sodium (Lovenox Inj) 30 mg Q12H SQ Last administered on 12/04/16 00 :03; Start 11/11/16 at 00:00; Stop 12/04/16 at 09:43; Status DC Cefazolin Sodium/ Dextrose 50 ml @ 100 mls/hr Q8H IV Last administered on 11/13 00:05; Start 11/10/16 at 16:00; Stop 11/13/16 at 08:29; Status DC Gentamicin Sulfate/Sodium Chloride 100 ml @ 200 mls/hr Q8H IV Last administered on 11/13/16 10:00; Start 11/10/16 at 18:00; Stop 11/13/16 at 10:29 ; Status DC Acetaminophen/ Hydrocodone Bitart ([place] 10-325 Mg) 1 tab Q3H PRN PO PAIN 3<10 Last administered on 11/18/16 04:34; Start 11/10/16 at 11:45; Stop 11/18/16 at 16 :37; Status DC Calcium/Vitamin D (Oscal-D 250-125) 250 mg TID PO Last administered on 12:20; Start 11/10/16 at 13:00 Meperidine HCl (*DEMEROL INJ PERIprocedural ONLY) 25 mg STK-MED ONCE .ROUTE Last administered on 11/10/16 12:36; Start 11/10/16 at 12:36; Stop 11/10/16 at 12:37; Status DC Miscellaneous Information ALL NURSING DEPARTME... UNSCH PRN .XX SEE LABEL COMMENTS; Start 11/10/16 at 12:29; Stop 11/11/16 at 12:28; Status DC Midazolam HCl (Versed Inj) 2 mg STK-MED ONCE .ROUTE ; Start 11/10/16 at 12:48; Stop 11/10/16 at 12:49; Status DC Fentanyl Citrate (fentaNYL INJ) 250 mcg STK-MED ONCE .ROUTE ; Start 11/10/16 at 12:48; Stop 11/10/16 at 12:49; Status DC Morphine Sulfate (*morphine INJ PERIprocedure ONLY) 8 mg STK-MED ONCE .ROUTE Last administered on 11/10/16 14:36; Start 11/10/16 at 14:36; Stop 11/10/16 at 14:37; Status DC Bisacodyl (Dulcolax Ec) 10 mg ONCE ONCE PO Last administered on 11/11/16 10: 17; Start 11/11/16 at 07:00; Stop 11/11/16 at 07:04; Status DC Bisacodyl (Dulcolax Supp) 10 mg ONCE ONCE RECTAL Last administered on 10:17; Start 11/11/16 at 07:00; Stop 11/11/16 at 07:04; Status DC Sodium Chloride 250 ml @ 15 mls/hr ONCE ONCE IV Last administered on 11:19; Start 11/11/16 at 11:15; Stop 11/12/16 at 03:54; Status DC Furosemide (Lasix Inj) 20 mg ONCE ONCE IV ; Start 11/11/16 at 11:15; Stop 11/11 at 11:16; Status Cancel Furosemide (Lasix Inj) 20 mg ONCE ONCE IV Last administered on 11/12/16 11:18 ; Start 11/12/16 at 11:00; Stop 11/12/16 at 11:01; Status DC Albuterol/ Ipratropium (Duoneb Neb) 1 ampule Q4HR NEB PRN NEB wheezing; Start 11/12/16 at 13:15 Lactated Ringer's 1,000 ml @ 30 mls/hr Q24H PRN IV SEE LABEL COMMENTS; Start at 05:00; Stop 11/16/16 at 04:59; Status Cancel Sodium Chloride 500 ml @ 30 mls/hr [id number] PRN IV SEE LABEL COMMENTS; Start at 05:00; Stop 11/16/16 at 04:59; Status DC Metoprolol Tartrate (Lopressor) 25 mg DEMAND GENERATOR MANAGER PRN PO SEE LABEL COMMENTS; Start 11/13/16 at 05:00; Stop 11/16/16 at 04:59; Status DC Povidone Iodine (Betadine 5% Antisepsis Kit) 1 applic DEMAND GENERATOR MANAGER PRN EACH NARE SEE LABEL COMMENTS; Start 11/13/16 at 05:00; Stop 11/16/16 at 04:59; Status DC Chlorhexidine Gluconate (Chlorhexidine 2% Cloth) 3 pack DEMAND GENERATOR MANAGER PRN TOPICAL SEE LABEL COMMENTS; Start 11/13/16 at 05:00; Stop 11/16/16 at 04:59; Status DC Lidocaine HCl (Xylocaine 2% Jelly) 30 applic STK-MED ONCE .ROUTE ; Start at 07:15; Stop 11/13/16 at 07:16; Status DC Mineral Oil (Muri-Lube Oil) 10 ml STK-MED ONCE .ROUTE ; Start 11/13/16 at 07:15 ; Stop 11/13/16 at 07:16; Status DC Gentamicin Sulfate (Gentamicin Inj) 240 mg STK-MED ONCE .ROUTE Last administered on 11/13/16 08:20; Start 11/13/16 at 07:15; Stop 11/13/16 at 07:16 ; Status DC Albuterol Sulfate (Albuterol Neb) 2.5 mg STK-MED ONCE .ROUTE ; Start 11/13/16 at 07:34; Stop 11/13/16 at 07:35; Status DC Dexamethasone Sodium Phosphate (Decadron Inj) 4 mg STK-MED ONCE .ROUTE ; Start 11/13/16 at 07:36; Stop 11/13/16 at 07:37; Status DC Famotidine (Pepcid Inj) 20 mg STK-MED ONCE .ROUTE ; Start 11/13/16 at 07:36; Stop 11/13/16 at 07:37; Status DC Albuterol/ Ipratropium (Duoneb Neb) 1 ampule STK-MED ONCE .ROUTE Last administered on 11/13/16 07:50; Start 11/13/16 at 07:47; Stop 11/13/16 at 07:48 ; Status DC Lactated Ringer's 1,000 ml @ 100 mls/hr Q10H IV Last administered on 12:14; Start 11/13/16 at 08:42; Stop 11/18/16 at 16:33; Status DC Cefazolin Sodium/ Dextrose 50 ml @ 100 mls/hr Q8H IV Last administered on 04:43; Start 11/13/16 at 12:00; Stop 11/20/16 at 11:59; Status DC Gentamicin Sulfate/Sodium Chloride 100 ml @ 200 mls/hr Q8H IV Last administered on 11/16/16 09:14; Start 11/13/16 at 18:00; Stop 11/16/16 at 17:59 ; Status DC Midazolam HCl (Versed Inj) 2 mg STK-MED ONCE .ROUTE ; Start 11/13/16 at 09:25; Stop 11/13/16 at 09:26; Status DC Fentanyl Citrate (fentaNYL INJ) 250 mcg STK-MED ONCE .ROUTE ; Start 11/13/16 at 09:25; Stop 11/13/16 at 09:26; Status DC Zolpidem Tartrate (Ambien) 5 mg HS PRN PO Insomnia Last administered on 22:59; Start 11/14/16 at 11:00 Trazodone HCl (Desyrel) 100 mg HS PO Last administered on 12/29/16 20:30; Start 11/14/16 at 21:00 Morphine Sulfate (Oramorph Sr) 15 mg Q12HR PO Last administered on 11/18/16 10: 00; Start 11/16/16 at 21:00; Stop 11/18/16 at 16:36; Status DC Morphine Sulfate (Oramorph Sr) 15 mg ONCE ONCE PO Last administered on 12:32; Start 11/16/16 at 10:15; Stop 11/16/16 at 10:24; Status DC Gabapentin (Neurontin) 600 mg TID PO Last administered on 12/30/16 12:19; Start 11/16/16 at 13:00 Sodium Chloride 1,000 ml @ 999 mls/hr BOLUS ONCE IV Last administered on 17:22; Start 11/18/16 at 16:45; Stop 11/18/16 at 17:45; Status DC Morphine Sulfate (Oramorph Sr) 30 mg Q12HR PO Last administered on 11/29/16 09 :24; Start 11/18/16 at 21:00; Stop 11/29/16 at 14:26; Status DC Morphine Sulfate (Morphine Inj) 6 mg Q4H PRN IV PUSH PAIN SCALE 5 TO 10 Last administered on 11/19/16 05:59; Start 11/18/16 at 16:45; Stop 11/20/16 at 00:46; Status DC Morphine Sulfate (Morphine Inj) 3 mg Q3H PRN IV PUSH PAIN SCALE 1 TO 4 Last administered on 11/19/16 16:36; Start 11/18/16 at 16:45; Stop 11/20/16 at 00:46; Status DC Sodium Chloride 1,000 ml @ 125 mls/hr Q8H IV Last administered on 11/19/16 16: 15; Start 11/19/16 at 00:15; Stop 11/19/16 at 19:21; Status DC Sodium Chloride 500 ml @ 500 mls/hr BOLUS ONCE IV Last administered on 00:15; Start 11/19/16 at 00:15; Stop 11/19/16 at 01:14; Status DC Nystatin (Mycostatin Powder) 1 applic Q12HR TOPICAL Last administered on 08:54; Start 11/19/16 at 21:00; Stop 11/28/16 at 13:46; Status DC Acetaminophen/ Hydrocodone Bitart ([place] 7.5-325 Mg) 1 tab Q4H PRN PO PAIN SCALE 1 TO 4; Start 11/20/16 at 00:45; Stop 11/28/16 at 13:46; Status DC Acetaminophen/ Hydrocodone Bitart ([place] 10-325 Mg) 1 tab Q4H PRN PO PAIN SCALE 3-5 Last administered on 12/23/16 08:58; Start 11/20/16 at 00:45 Hydromorphone HCl (Dilaudid Pf Inj) 1 mg Q4H PRN IV PUSH BREAKTHROUGH PAIN Last administered on 12/17/16 10:38; Start 11/20/16 at 00:45; Stop 12/18/16 at 10:47; Status DC Propranolol HCl (Inderal) 40 mg Q12HR PO Last administered on 12/08/16 08:01; Start 11/22/16 at 21:00; Stop 12/08/16 at 10:00; Status DC Lactated Ringer's 1,000 ml @ 30 mls/hr Q24H PRN IV SEE LABEL COMMENTS; Start at 02:45; Stop 11/27/16 at 02:44; Status DC Sodium Chloride 500 ml @ 30 mls/hr [id number] PRN IV SEE LABEL COMMENTS; Start 11/24/16 at 02:45; Stop 11/27/16 at 02:44; Status DC Povidone Iodine (Betadine 5% Antisepsis Kit) 1 applic DEMAND GENERATOR MANAGER PRN EACH NARE SEE LABEL COMMENTS; Start 11/24/16 at 02:45; Stop 11/27/16 at 02:44; Status DC Chlorhexidine Gluconate (Chlorhexidine 2% Cloth) 3 pack DEMAND GENERATOR MANAGER PRN TOPICAL SEE LABEL COMMENTS; Start 11/24/16 at 02:45; Stop 11/27/16 at 02:44; Status DC Insulin Human Regular (NovoLIN R INJ) See Protocol Table ... DEMAND GENERATOR MANAGER PRN SQ SEE PROTOCOL TABLE; Start 11/24/16 at 02:45; Stop 11/27/16 at 02:44; Status DC Prochlorperazine Edisylate (Compazine Inj) 10 mg Q8H PRN IV PUSH NAUSEA/ VOMITING Last administered on 11/25/16 18:00; Start 11/25/16 at 16:15 Sodium Chloride 500 ml @ 500 mls/hr BOLUS ONCE IV Last administered on 18:06; Start 11/25/16 at 17:00; Stop 11/25/16 at 17:59; Status DC Gentamicin Sulfate (Gentamicin Inj) 240 mg STK-MED ONCE .ROUTE Last administered on 11/28/16 10:42; Start 11/28/16 at 07:18; Stop 11/28/16 at 07:19 ; Status DC Vancomycin HCl (Vancomycin Inj) 1,000 mg STK-MED ONCE .ROUTE Last administered on 12/09/16 15:25; Start 11/28/16 at 07:38; Stop 11/28/16 at 07:39; Status DC Cefazolin Sodium/ Dextrose 50 ml @ As Directed STK-MED ONCE .ROUTE Last administered on 12/09/16 15:20; Start 11/28/16 at 07:38; Stop 11/28/16 at 07:39 ; Status DC Sodium Chloride 250 ml @ As Directed STK-MED ONCE .ROUTE ; Start 11/28/16 at 07 :39; Stop 11/28/16 at 07:40; Status DC Fentanyl Citrate (fentaNYL INJ) 250 mcg STK-MED ONCE .ROUTE ; Start 11/28/16 at 10:15; Stop 11/28/16 at 10:16; Status DC Cefazolin Sodium (Ancef Inj) 1,000 mg STK-MED ONCE .ROUTE Last administered on 11/28/16 10:31; Start 11/28/16 at 10:23; Stop 11/28/16 at 10:24; Status DC Lactated Ringer's 1,000 ml @ 100 mls/hr Q10H IV ; Start 11/28/16 at 10:59; Stop 12/03/16 at 09:16; Status DC Cefazolin Sodium/ Dextrose 50 ml @ 100 mls/hr Q8H IV Last administered on 12/01 06:46; Start 11/28/16 at 15:00; Stop 12/01/16 at 14:59; Status DC Magnesium Hydroxide (Milk Of Magnfidencio Liq) 30 ml Q12H PRN PO MILD - MODERATE CONSTIPATION Last administered on 12/26/16 10:08; Start 11/28/16 at 11:30 Sennosides (Senokot) 17.2 mg Q12H PRN PO MODERATE - SEVERE CONSTIPATION Last administered on 12/25/16 09:48; Start 11/28/16 at 11:30 Bisacodyl (Dulcolax Supp) 10 mg DAILY PRN RECTAL SEVERE CONSITIPATION Last administered on 12/11/16 12:30; Start 11/28/16 at 11:30 Albuterol Sulfate (*ALBUTEROL NEB PERIprocedure ONLY) 2.5 mg STK-MED ONCE NEB Last administered on 11/28/16 11:38; Start 11/28/16 at 11:38; Stop 11/28/16 at 11:39; Status DC Dexamethasone Sodium Phosphate (Decadron Inj) 4 mg STK-MED ONCE .ROUTE ; Start 11/28/16 at 11:51; Stop 11/28/16 at 11:52; Status DC Dexamethasone Sodium Phosphate (Decadron Inj) 4 mg NOW ONCE IV Last administered on 11/28/16 12:00; Start 11/28/16 at 12:00; Stop 11/28/16 at 12:01 ; Status DC Miscellaneous Information ALL NURSING DEPARTME... UNSCH PRN .XX SEE LABEL COMMENTS; Start 11/28/16 at 11:22; Stop 11/29/16 at 11:21; Status DC Morphine Sulfate (*morphine INJ PERIprocedure ONLY) 8 mg STK-MED ONCE .ROUTE Last administered on 11/28/16 12:01; Start 11/28/16 at 12:01; Stop 11/28/16 at 12:02; Status DC Acetaminophen/ Hydrocodone Bitart ([place] 10-325 Mg) 1.5 tab Q4H PRN PO pain 6- 10 Last administered on 12/23/16 17:35; Start 11/28/16 at 15:00; Stop 12/23/16 at 18:38; Status DC Nystatin (Mycostatin Cream) 1 applic Q6HR TOPICAL Last administered on 05:00; Start 11/28/16 at 14:00; Stop 12/16/16 at 13:46; Status DC Morphine Sulfate (Oramorph Sr) 30 mg Q8HR PO Last administered on 12/03/16 06: 09; Start 11/29/16 at 22:00; Stop 12/03/16 at 12:16; Status DC Cetirizine HCl (ZyrTEC) 10 mg HS PO Last administered on 12/07/16 20:03; Start 12/01/16 at 21:00; Stop 12/08/16 at 20:59; Status DC Fluticasone Propionate (Flonase Jerzy Spr) 2 spray DAILY EACH NARE Last administered on 12/15/16 08:54; Start 12/01/16 at 11:00; Stop 12/15/16 at 10:59 ; Status DC Folic Acid (Folate) 1 mg DAILY PO Last administered on 12/30/16 08:30; Start 12/03/16 at 09:00 Morphine Sulfate (Oramorph Sr) 30 mg Q8HR PO Last administered on 12/30/16 14: 17; Start 12/03/16 at 14:00 Lactobacillus Acidophilus (Lactinex) 1 tab TID PO Last administered on 08:10; Start 12/04/16 at 09:00; Stop 12/05/16 at 09:26; Status DC Enoxaparin Sodium (Lovenox Inj) 40 mg DAILY SQ Last administered on 12/30/16 08:30; Start 12/05/16 at 09:00 Al Hydrox/Mg Hydrox/Simethicone (Mag-Al Plus Susp Liq) 30 ml ONCE ONCE PO Last administered on 12/04/16 11:55; Start 12/04/16 at 11:45; Stop 12/04/16 at 11:50; Status DC Al Hydrox/Mg Hydrox/Simethicone (Mag-Al Plus Susp Liq) 30 ml Q6HR PRN PO HEARTBURN, INDIGESTION Last administered on 12/06/16 08:52; Start 12/04/16 at 18:00 Sucralfate (Carafate Liq) 1 gm QID PO Last administered on 12/16/16 13:41; Start 12/05/16 at 09:00; Stop 12/16/16 at 13:43; Status DC Lactobacillus Acidophilus (Lactinex) 1 tab BID PO Last administered on 09:36; Start 12/05/16 at 21:00; Stop 12/18/16 at 10:47; Status DC Polyethylene Glycol (Miralax) 17 gm DAILY PRN PO CONSTIPATION; Start 12/08/16 at 10:00; Stop 12/11/16 at 15:18; Status DC Propranolol HCl (Inderal) 20 mg Q12HR PO Last administered on 12/09/16t 20:34; Start 12/08/16 at 21:00; Stop 12/10/16 at 07:34; Status DC Lactated Ringer's 1,000 ml @ 30 mls/hr Q24H PRN IV SEE LABEL COMMENTS; Start at 01:30; Stop 12/12/16 at 01:29; Status DC Sodium Chloride 500 ml @ 30 mls/hr [id number] PRN IV SEE LABEL COMMENTS; Start at 01:30; Stop 12/12/16 at 01:29; Status DC Povidone Iodine (Betadine 5% Antisepsis Kit) 1 applic DEMAND GENERATOR MANAGER PRN EACH NARE SEE LABEL COMMENTS; Start 12/09/16 at 01:30; Stop 12/12/16 at 01:29; Status DC Chlorhexidine Gluconate (Chlorhexidine 2% Cloth) 3 pack DEMAND GENERATOR MANAGER PRN TOPICAL SEE LABEL COMMENTS; Start 12/09/16 at 01:30; Stop 12/12/16 at 01:29; Status DC Insulin Human Regular (NovoLIN R INJ) See Protocol Table ... DEMAND GENERATOR MANAGER PRN SQ SEE PROTOCOL TABLE; Start 12/09/16 at 01:30; Stop 12/12/16 at 01:29; Status DC Bupivacaine HCl/ Epinephrine Bitart (Sensorcaine-Epinephrine 0.25% Inj) 50 ml STK-MED ONCE .ROUTE ; Start 12/09/16 at 14:07; Stop 12/09/16 at 14:08; Status DC Mineral Oil (Muri-Lube Oil) 10 ml STK-MED ONCE .ROUTE ; Start 12/09/16 at 14:07 ; Stop 12/09/16 at 14:08; Status DC Gentamicin Sulfate (Gentamicin Inj) 240 mg STK-MED ONCE .ROUTE Last administered on 12/09/16 15:31; Start 12/09/16 at 14:07; Stop 12/09/16 at 14:08 ; Status DC Vancomycin HCl (Vancomycin Inj) 1,000 mg STK-MED ONCE .ROUTE ; Start 12/09/16 at 15:06; Stop 12/09/16 at 15:07; Status DC Cefazolin Sodium/ Dextrose 50 ml @ As Directed STK-MED ONCE .ROUTE ; Start 12/09 at 15:06; Stop 12/09/16 at 15:07; Status DC Lactated Ringer's 1,000 ml @ 100 mls/hr Q10H IV ; Start 12/09/16 at 15:57; Stop 12/16/16 at 13:45; Status DC Cefazolin Sodium/ Dextrose 50 ml @ 100 mls/hr Q8H IV Last administered on 12/16 13:42; Start 12/09/16 at 20:00; Stop 12/16/16 at 19:59; Status DC Gentamicin Sulfate/Sodium Chloride 100 ml @ 200 mls/hr Q8H IV Last administered on 12/12/16 12:25; Start 12/09/16 at 21:00; Stop 12/12/16 at 20:59 ; Status DC Morphine Sulfate (*morphine INJ PERIprocedure ONLY) 8 mg STK-MED ONCE .ROUTE Last administered on 12/09/16 16:32; Start 12/09/16 at 16:32; Stop 12/09/16 at 16:33; Status DC Fentanyl Citrate (fentaNYL INJ) 250 mcg STK-MED ONCE .ROUTE ; Start 12/09/16 at 16:33; Stop 12/09/16 at 16:34; Status DC Miscellaneous Information ALL NURSING DEPARTME... UNSCH PRN .XX SEE LABEL COMMENTS; Start 12/09/16 at 16:20; Stop 12/10/16 at 16:19; Status DC Morphine Sulfate (*morphine INJ PERIprocedure ONLY) 8 mg STK-MED ONCE .ROUTE Last administered on 12/09/16 17:01; Start 12/09/16 at 17:01; Stop 12/09/16 at 17:02; Status DC Propranolol HCl (Inderal) 10 mg Q12HR PO Last administered on 12/13/16 09:42; Start 12/10/16 at 09:00; Stop 12/13/16 at 10:32; Status DC Menthol/Methyl Salicylate (Aleks Daniels Oint) 1 applic UNSCH PRN TOPICAL arthritic pain Last administered on 12/12/16 17:51; Start 12/11/16 at 15:30 Propranolol HCl (Inderal) 20 mg Q12HR PO ; Start 12/13/16 at 21:00; Stop at 21:00; Status DC Propranolol HCl (Inderal) 10 mg Q12HR PO Last administered on 12/30/16 08:30; Start 12/13/16 at 21:00 Bacitracin (Baciguent Oint) 1 applic DAILY PRN TOPICAL WOUND VAC DRESSING CHANGE; Start 12/15/16 at 12:30 Sucralfate (Carafate Liq) 1 gm BID PO Last administered on 12/30/16 08:30; Start 12/16/16 at 21:00; Stop 12/30/16 at 20:59 Lidocaine HCl (Lidoderm 5% Patch.12 Hr) 1 patch DAILY T-DERMAL Last administered on 12/18/16 11:33; Start 12/18/16 at 10:00; Stop 12/19/16 at 19:35 ; Status DC Miscellaneous Information 1 Q24H T-DERMAL ; Start 12/18/16 at 21:00; Stop at 19:35; Status DC Lactobacillus Acidophilus (Lactinex) 1 tab TID PO Last administered on 12:19; Start 12/18/16 at 13:00 Lidocaine HCl (Lidoderm 5% Patch.12 Hr) 1 patch HS T-DERMAL Last administered on 12/29/16 20:31; Start 12/19/16 at 21:00 Miscellaneous Information 1 Q24H T-DERMAL Last administered on 12/24/16 09:00; Start 12/20/16 at 09:00 Propofol (Diprivan 200 Mg/20 ml Inj) 200 mg STK-MED ONCE IV ; Start 11/07/16 at 12:00; Stop 12/23/16 at 10:36; Status DC Ephedrine Sulfate (ePHEDrine/NS 25 MG/5 ML SYR) 50 mg STK-MED ONCE IV ; Start at 12:00; Stop 12/23/16 at 10:36; Status DC Neostigmine Methylsulfate (Prostigmin Inj) 3 mg STK-MED ONCE IV ; Start at 12:00; Stop 12/23/16 at 10:36; Status DC Phenylephrine HCl (Neosynephrine/ NS 1000 Mcg/10ml Syr) 1,000 mcg STK-MED ONCE IV ; Start 11/07/16 at 12:00; Stop 12/23/16 at 10:37; Status DC Ondansetron HCl (Zofran Inj) 4 mg STK-MED ONCE IV PUSH ; Start 11/07/16 at 12:00 ; Stop 12/23/16 at 10:37; Status DC Lactated Ringer's 1,000 ml @ As Directed STK-MED ONCE IV ; Start 11/07/16 at 12 :00; Stop 12/23/16 at 10:37; Status DC Parenteral Electrolytes 1,000 ml @ As Directed STK-MED ONCE IV ; Start at 12:00; Stop 12/23/16 at 10:37; Status DC Propofol (Diprivan 200 Mg/20 ml Inj) 400 mg STK-MED ONCE IV ; Start 11/10/16 at 12:00; Stop 12/23/16 at 12:04; Status DC Phenylephrine HCl (Neosynephrine/ NS 1000 Mcg/10ml Syr) 2,000 mcg STK-MED ONCE IV ; Start 11/10/16 at 12:00; Stop 12/23/16 at 12:04; Status DC Ondansetron HCl (Zofran Inj) 4 mg STK-MED ONCE IV PUSH ; Start 11/10/16 at 12:00 ; Stop 12/23/16 at 12:04; Status DC Lactated Ringer's 1,000 ml @ As Directed STK-MED ONCE IV ; Start 11/10/16 at 12 :00; Stop 12/23/16 at 12:04; Status DC Propofol (Diprivan 200 Mg/20 ml Inj) 200 mg STK-MED ONCE IV ; Start 11/13/16 at 12:00; Stop 12/23/16 at 12:38; Status DC Ephedrine Sulfate (ePHEDrine/NS 25 MG/5 ML SYR) 25 mg STK-MED ONCE IV ; Start at 12:00; Stop 12/23/16 at 12:38; Status DC Phenylephrine HCl (Neosynephrine/ NS 1000 Mcg/10ml Syr) 1,000 mcg STK-MED ONCE IV ; Start 11/13/16 at 12:00; Stop 12/23/16 at 12:38; Status DC Ondansetron HCl (Zofran Inj) 4 mg STK-MED ONCE IV PUSH ; Start 11/13/16 at 12:00 ; Stop 12/23/16 at 12:38; Status DC Lactated Ringer's 1,000 ml @ As Directed STK-MED ONCE IV ; Start 11/13/16 at 12 :00; Stop 12/23/16 at 12:38; Status DC Neostigmine Methylsulfate (Prostigmin Inj) 3 mg STK-MED ONCE IV ; Start at 12:00; Stop 12/23/16 at 12:38; Status DC Propofol (Diprivan 200 Mg/20 ml Inj) 200 mg STK-MED ONCE IV ; Start 11/28/16 at 12:00; Stop 12/23/16 at 12:50; Status DC Ephedrine Sulfate (ePHEDrine/NS 25 MG/5 ML SYR) 25 mg STK-MED ONCE IV ; Start at 12:00; Stop 12/23/16 at 12:50; Status DC Ondansetron HCl (Zofran Inj) 4 mg STK-MED ONCE IV PUSH ; Start 11/28/16 at 12:00 ; Stop 12/23/16 at 12:50; Status DC Propofol (Diprivan 200 Mg/20 ml Inj) 200 mg STK-MED ONCE IV ; Start 12/09/16 at 12:00; Stop 12/23/16 at 14:38; Status DC Ephedrine Sulfate (ePHEDrine/NS 25 MG/5 ML SYR) 50 mg STK-MED ONCE IV ; Start at 12:00; Stop 12/23/16 at 14:38; Status DC Ondansetron HCl (Zofran Inj) 4 mg STK-MED ONCE IV PUSH ; Start 12/09/16 at 12:00 ; Stop 12/23/16 at 14:38; Status DC Acetaminophen/ Hydrocodone Bitart ([place] 10-325 Mg) 2 tab Q4H PRN PO pain 6-10 Last administered on 12/30/16 12:21; Start 12/23/16 at 18:45 Vancomycin HCl 5000 mg/Sodium Chloride 3,000 ml @ 10 mls/hr Q24H PRN IRRIGATION DRESSING CHANGE; Start 12/25/16 at 08:00 Diphenhydramine HCl (Benadryl) 12.5 mg Q4H PRN PO itching Last administered on 12/28/16 07:54; Start 12/25/16 at 16:45; Stop 12/28/16 at 13:48; Status DC Ferrous Sulfate (Ferrous Sulfate) 325 mg BID@12,17 PO Last administered on 12/30 12:19; Start 12/26/16 at 12:00 Ascorbic Acid (Vitamin C) 500 mg BID PO Last administered on 12/30/16 08:30; Start 12/26/16 at 09:00 Pharmacy Profile Note 0 ml @ 0 mls/hr UNSCH OTHER ; Start 12/26/16 at 14:45 Vancomycin HCl 1500 mg/Sodium Chloride 515 ml @ 257.5 mls/ hr Q12H IV Last administered on 12/26/16 20:17; Start 12/26/16 at 17:00; Stop 12/27/16 at 04:54; Status DC Miscellaneous Information SPECIFIC LAB TO BE LEANNA... ONCE ONCE .XX ; Start 12/28 at 04:45; Stop 12/28/16 at 04:46; Status Cancel Vancomycin HCl 1500 mg/Sodium Chloride 515 ml @ 257.5 mls/ hr Q12H IV Last administered on 12/29/16 20:50; Start 12/27/16 at 08:00; Stop 12/29/16 at 20:35 ; Status DC Miscellaneous Information SPECIFIC LAB TO BE LEANNA... ONCE ONCE .XX ; Start 12/28 at 07:45; Stop 12/28/16 at 07:46; Status DC Miscellaneous Information SPECIFIC LAB TO BE LEANNA... ONCE ONCE .XX Last administered on 12/29/16 20:45; Start 12/29/16 at 20:45; Stop 12/29/16 at 20:46 ; Status DC Diphenhydramine HCl (Benadryl) 50 mg Q4H PRN PO itching Last administered on 08:39; Start 12/28/16 at 16:45 Vancomycin HCl 1500 mg/Sodium Chloride 515 ml @ 257.5 mls/ hr Q12H IV Last administered on 12/30/16 08:31; Start 12/29/16 at 21:00 Miscellaneous Information SPECIFIC LAB TO BE DRAWN:[facility] DATE TO BE DRDomenica. ONCE ONCE .XX ; Start 12/31/16 at 08:45; Stop 12/31/16 at 08:46 A/P Problem List: (1) Fracture of tibia, left, open ICD Code: S82.202B - Unspecified fracture of shaft of left tibia, initial encounter for open fracture type I or II Status: Acute (2) Fracture of tibia, right, open ICD Code: S82.201B - Unspecified fracture of shaft of right tibia, initial encounter for open fracture type I or II Status: Acute (3) Hypotension ICD Code: I95.9 - Hypotension, unspecified Status: Acute (4) Right shoulder pain ICD Code: M25.511 - Pain in right shoulder Assessment and Plan 61-year-old male admitted secondary to bilateral leg trauma after car fell on his legs while he was working on. Open fractures were present bilaterally. MRSA: -ID consulted stated to continue with vancomycin. Iron deficiency: -Supplementation given. Constipation - Patient's diarrhea has resolved, no sample was able to be collected for C. difficile - Stool softeners resumed Bilateral open tibia-fibula fractures Left tibial plateau fracture - Open fractures have been surgically repaired, right side has external fixation - Continue wound VAC left leg as per orthopedic surgery recommendations. Undergoing serial wound vac changes per ortho. - left tibial plateau fracture treated nonoperatively - Pin care BID to right leg - NWB BLEs - Lortab dose when necessary, Oramorph 30mg every 8 hours. -Orthopedics increased [place] to 20 mg per administration. Acute blood loss anemia - Related to trauma vs post op blood loss - Status post transfusion of 2 units of packed red blood cells in 11/12/16. - on iron supplementation daily. Iron studies reviewed. - hemoglobin stable - monitor CBC as indicated Coronary artery disease with h/o previous CABG - stable. Patient is asymptomatic. - Continue propranolol and statin - ASA 81mg daily - Clonidine PRN Hypertension - controlled - MARGIE inhibitor held due to hypotension. - Narcotics seem to have a depressive affect on this patient, however blood pressure has much improved after the patient was taken off IV morphine Diabetes mellitus type 2 - blood sugars well controlled Alcohol abuse Transaminitis, resolved - AST and ALT now within normal range. - Continue with daily thiamine and folic acid - Alcohol cessation recommended Tobacco abuse - Cessation recommended. Chronic essential tremor - Continue Propranolol at lower dose due to bradycardia with holding parameters, HR <55 GI prophylaxis: PPI DVT prophylaxis: Lovenox sq Problem Qualifiers (1) Fracture of tibia, left, open: (2) Fracture of tibia, right, open: (3) Hypotension: (4) Right shoulder pain: Qualified Codes: M25.511 - Pain in right shoulder; G89.29 - Other chronic pain Samreen Olson MD Dec 30, 2016 14:33
--- NOTE | 2016-12-30 15:11 | PD.ORT.PN ---
Subjective Subjective Remarks Pain controlled Doing well Objective Vitals Vital Signs Date Time Temp Pulse Resp B/P (MAP) Pulse Ox O2 Delivery O2 Flow Rate FiO2 12/30/16 11:59 97.9 59 18 112/66 (81) 97 12/30/16 08:00 97.1 56 18 123/67 (85) 98 12/29/16 20:05 97.9 75 18 109/59 (76) 99 12/29/16 16:00 96.1 68 18 107/57 (74) 99 I/O 12/29/16 12/29/16 12/29/16 12/30/16 12/30/16 12/30/16 07:00 15:00 23:00 07:00 15:00 23:00 Intake Total 480 ml 1200 ml 360 ml 480 ml Output Total 1800 ml 300 ml 700 ml 800 ml Balance -1320 ml 900 ml -340 ml -320 ml Intake Oral 480 ml 1200 ml 360 ml 480 ml Output Urine Total 1300 ml 700 ml 800 ml Drainage Total 500 ml 300 ml # Voids 6 # Bowel Movements 0 1 0 0 Result Diagram: 12/27/16 1001 12/27/16 1001 Imaging Last 24 hours Impressions Pelvis X-Ray 11/07/16 1355 Signed Impressions: Service Date/Time: Monday, November 07, 2016 13:34 - CONCLUSION: No acute disease. Behzad Finch Jr., MD Chest X-Ray 11/07/16 1355 Signed Impressions: Service Date/Time: Monday, November 07, 2016 13:34 - CONCLUSION: No acute disease. Jac Gonzales MD Objective Remarks RLE: Dressings clean and dry. intact. with full sensation and motor function. + exfix. pin sites--first metatarsal pin is loose, other pins appear to be clean and dry LLE: Wound VAC intact. Good seal. no sensation over medial foot. slight stiffness with dorsiflexion.CKS. vac removed showing graft incorporating well. One portion of anterior tibialis tendon is resistant to graft.wound vac with veriflo reapplied Assessment & Plan Assessment and Plan 1) Right Open Tibia Fracture s/p exfix revision with ORIF 2) Left Open Tibia Fracture s/p Soleus muscle flap with IMN and removal of exfix 3) left tibia plateau fracture treated nonoperatively 4) s/p vac change with collagen grafting 12/30 -NWB BLE -pin care BID right leg -veraflow vac placed on left leg -vac settings: -soak time: 3min of 10 CCs -suction: 15min @ 100mmHg -maintain vac at all times -will plan on vac change Thursday Ronald Hatch Jr. Dec 30, 2016 15:11
[2016-12-30 16:00] VITALS: BP 105/55; PULSE 72; RESP 18; TEMP 96.7; O2SAT 98
[2016-12-30 20:20] VITALS: BP 122/67; PULSE 69; RESP 18; TEMP 98; O2SAT 98
[2016-12-30] MEDS: MAGNESIUM HYDROXIDE SUSP 30 ML CUP PO SCH (22:05)
[2016-12-30] MEDS: PRAVASTATIN SOD 80 MG TAB PO SCH (22:05)
[2016-12-30] MEDS: traZODone HCL 100 MG TAB PO SCH (22:05)
[2016-12-30] MEDS: LIDOCAINE HCL 5% PATCH T-DERMAL SCH (22:08)
[2016-12-31 00:21] VITALS: BP 100/50; PULSE 65; RESP 18; TEMP 98.3; O2SAT 97
[2016-12-31] MEDS: ACETAMINOPHEN/HYDROcodone 325 MG/10 MG TAB PO PRN ×4 (03:31→16:58)
[2016-12-31] MEDS: MORPHINE SULFATE 30 MG CONTROLLED RELEASE TAB PO SCH ×3 (06:11→22:16)
[2016-12-31 08:00] VITALS: BP 114/65; PULSE 64; RESP 18; TEMP 97.7; O2SAT 97
[2016-12-31] MEDS: GABAPENTIN 300 MG CAP PO SCH ×3 (08:33→17:23)
[2016-12-31] MEDS: PANTOPRAZOLE SOD 40 MG DELAYED RELEASE TAB PO SCH (08:33)
[2016-12-31] MEDS: CALCIUM/VITAMIN D 250 MG/125 U TAB PO SCH ×3 (08:33→17:23)
[2016-12-31] MEDS: DOCUSATE SODIUM 50 MG/SENNA 8.6 MG TAB PO SCH ×2 (08:33→22:16)
[2016-12-31] MEDS: FOLIC ACID 1 MG TAB PO SCH (08:33)
[2016-12-31] MEDS: LACTOBACILLUS ACIDOPHILUS TAB PO SCH ×3 (08:33→17:24)
[2016-12-31] MEDS: ENOXAPARIN SODIUM 40 MG/0.4 ML SYRINGE SQ SCH (08:33)
[2016-12-31] MEDS: PROPRANOLOL HCL 10 MG TAB PO SCH ×2 (08:33→22:15)
[2016-12-31] MEDS: ASCORBIC ACID 500 MG TAB PO SCH ×2 (08:33→22:15)
[2016-12-31] MEDS: ASPIRIN 81 MG CHEW TAB CHEW SCH (08:34)
[2016-12-31] MEDS: THIAMINE HCL 100 MG TAB PO SCH (08:42)
[2016-12-31] MEDS: SODIUM CHLORIDE 0.9% FLUSH 10 ML FLUSH IV FLUSH SCH ×2 (08:42→22:15)
[2016-12-31] MEDS: diphenhydrAMINE HCL 50 MG CAP PO PRN ×2 (08:42→22:15)
[2016-12-31] MEDS ORDERED: PHARMACY ORDERED LAB ONE (08:45)
[2016-12-31] MEDS: VANCOMYCIN 1,500 MG/NS 500 ML IV SCH ×4 (08:48→22:17)
[2016-12-31] MEDS: NEOMYCIN/POLYMYXIN/BACITRACIN OINT 15 GM TUBE TOPICAL SCH (09:00)
[2016-12-31] MEDS: REMOVE OLD LIDOCAINE PATCH T-DERMAL SCH (09:00)
--- NOTE | 2016-12-31 10:59 | HHI.PR ---
Subjective Remarks Follow-up visit bilateral leg trauma, external fixator in place RLE, wound vac LLE, MRSA. Patient seen and examined. Patients only complaints are the Lovenox injections. He denies any fever or chills. Denies any chest pain or shortness of breath. Denies any N/V or abdominal pain. BLE pain controlled. Objective Vitals Vital Signs Date Time Temp Pulse Resp B/P (MAP) Pulse Ox O2 Delivery O2 Flow Rate FiO2 12/31/16 08:00 97.7 64 18 114/65 (81) 97 12/31/16 07:04 18 12/31/16 04:11 18 12/31/16 01:00 Room Air 12/31/16 00:21 98.3 65 18 100/50 (67) 97 12/30/16 20:20 98.0 69 18 122/67 (85) 98 12/30/16 16:00 96.7 72 18 105/55 (72) 98 12/30/16 11:59 97.9 59 18 112/66 (81) 97 I/O 12/30/16 12/30/16 12/30/16 12/31/16 12/31/16 12/31/16 07:00 15:00 23:00 07:00 15:00 23:00 Intake Total 480 ml 750 ml 360 ml 995 ml Output Total 800 ml 500 ml 1350 ml Balance -320 ml 750 ml -140 ml -355 ml Intake Oral 480 ml 750 ml 360 ml 480 ml IV Total 515 ml Output Urine Total 800 ml 300 ml 1100 ml Drainage Total 200 ml 250 ml # Voids 4 # Bowel Movements 0 0 0 2 Result Diagram: 12/27/16 1001 12/27/16 1001 Imaging Last Impressions Foot X-Ray 12/27/16 0000 Signed Impressions: Service Date/Time: Tuesday, December 27, 2016 16:50 - CONCLUSION: Distal tibia and fibula fractures with internal fixation hardware. Samir Massey MD Ankle X-Ray 12/17/16 0000 Signed Impressions: Service Date/Time: Saturday, December 17, 2016 10:13 - CONCLUSION: Intramedullary mariano in tibia. Severely comminuted fibular fracture. Arvind Flores MD FACR Gall Bladder Ultrasound 12/05/16 0000 Signed Impressions: Service Date/Time: Monday, December 05, 2016 08:38 - CONCLUSION: Unremarkable exam. Gallbladder is within normal limits with no evidence of cholelithiasis. Ronald Rao MD Abdomen X-Ray 12/04/16 0000 Signed Impressions: Service Date/Time: November 10:42 - CONCLUSION: Unremarkable bowel gas pattern. Ronald Rao MD Knee X-Ray 11/25/16 0000 Signed Impressions: Service Date/Time: Friday, November 25, 2016 06:44 - CONCLUSION: Post surgical changes are identified. Mumtaz Cornelius MD Tibia/Fibula X-Ray 11/24/16 0000 Signed Impressions: Service Date/Time: Thursday, November 24, 2016 10:06 - CONCLUSION: 1. Mildly displaced lateral tibial plateau fracture which is not clearly evident on the previous studies. 2. Otherwise stable left tibia status post ORIF. 3. Wound VAC remains in place. Dex Wild MD Chest X-Ray 11/20/16 0000 Signed Impressions: Service Date/Time: November 17:08 - CONCLUSION: 1. No acute abnormality or significant interval change. Sukhi Stevens MD Pelvis X-Ray 11/07/16 1355 Signed Impressions: Service Date/Time: Monday, November 07, 2016 13:34 - CONCLUSION: No acute disease. Behzad Finch Jr., MD Objective Remarks GENERAL: This is a well-nourished, well-developed patient, in no apparent distress. Awake and alert. Lying in hospital bed. SKIN: Warm and dry. Wound VAC in place left lower extremity draining serosanguineous fluid. Dressing C/D/I. HEENT: Normocephalic. EOMI. Nose without bleeding. MMM. Airway patent. NECK: Trachea midline. Supple. CARDIOVASCULAR: Regular rate and rhythm without murmurs, gallops, or rubs. RESPIRATORY: Clear to auscultation. Breath sounds equal bilaterally. No wheezes , rales, or rhonchi. GASTROINTESTINAL: Abdomen soft, non-tender, nondistended. Bowel Sounds normoactive x4. MUSCULOSKELETAL: Extremities without clubbing, cyanosis. Right lower extremity with external fixation in place. Left lower leg with Raul wrap's, wound vac in place. Bilateral toes able to wiggle weakly. Pulses palpable. Edema noted in bilateral feet improving. Decreased sensation medial aspect of left foot. NEUROLOGICAL: Awake and alert. Oriented to time, place, person. No focal neuro deficit. Non-tremulous. Moves all extremities. Normal speech. Procedures 1.s/p I&D with ex fix application bilateral tibias s/p wound vac application left tibia 2.With the assistance of RN, under sterile technique the avulsed skin of the right middle finger was clipped. No bleeding noted. Patient gave consent 3.Open reduction internal fixation of right distal tibia and fibula fractures Nonoperative treatment left tibial plateau fracture Irrigation and debridement of left tibia shaft fracture, removal external fixation, soleus muscle rotational flap, intramedullary nail fixation left tibia , application of wound VAC dressing 4.11/13 Irrigation and debridement of left tibia, application wound VAC dressing 5. 11/28 Irrigation and debridement of left open tibia fracture with application of wound VAC dressing 6. 12/01 wound vac change at the bedside 7. 12/05 wound vac change at the bedside 8. 12/08 wound vac change at the bedside 9. 12/09 I&D left tibia, application of wound VAC dressing and application of AlloMax allograft dermal matrix Medications and IVs Current Medications Medications (Trade) Dose Ordered Sig/Milagro Route Start Time Stop Time Status Last Admin (NS Flush) 2 ml UNSCH PRN IV FLUSH 11/07/16 14:30 12/11/16 11:31 (NS Flush) 2 ml BID IV FLUSH 11/07/16 21:00 12/31/16 08:42 (Zofran Inj) 4 mg Q6H PRN IV 11/07/16 14:30 12/04/16 06:13 (Narcan Inj) 0.4 mg UNSCH PRN IV 11/07/16 14:30 (Tylenol) 650 mg Q4H PRN PO 11/08/16 08:15 (Tums Chew) 1,000 mg TID PRN CHEW 11/08/16 08:15 12/06/16 08:52 (Vasotec Inj) 1.25 mg Q6H PRN IV 11/08/16 08:15 (Catapres) 0.1 mg Q6H PRN PO 11/08/16 08:15 (Aspirin Chew) 81 mg DAILY CHEW 11/08/16 12:45 12/31/16 08:34 (Prinivil) 25 mg DAILY PO 11/08/16 12:45 Future Hold 11/18/16 09:59 (Nitrostat Sl) 0.4 mg Q6HR PRN SL 11/08/16 12:45 (Protonix) 40 mg DAILY PO 11/08/16 12:45 12/31/16 08:33 (Pravachol) 80 mg HS PO 11/08/16 21:00 12/30/16 22:05 (Pill Splitter) 1 ea UNSCH PRN OTHER 11/08/16 12:45 (Elke-Colace) 1 tab BID PO 11/08/16 12:45 Future hold 12/31/16 08:33 (Vitamin B1) 100 mg DAILY PO 11/09/16 09:00 12/31/16 08:42 (Romazicon Inj) 0.2 mg Q1M PRN IV PUSH 11/08/16 13:00 (Haldol Inj) 2 mg Q15M PRN IM 11/08/16 13:00 (Neosporin Oint) 1 applic DAILY TOPICAL 11/10/16 09:00 12/28/16 09:00 (Milk Of Magnesia Liq) 30 ml HS PO 11/10/16 21:00 Future hold 12/30/16 22:05 (Oscal-D 250-125) 250 mg TID PO 11/10/16 13:00 12/31/16 08:33 (Duoneb Neb) 1 ampule Q4HR NEB PRN NEB 11/12/16 13:15 (Ambien) 5 mg HS PRN PO 11/14/16 11:00 12/29/16 22:59 (Desyrel) 100 mg HS PO 11/14/16 21:00 12/30/16 22:05 (Neurontin) 600 mg TID PO 11/16/16 13:00 12/31/16 08:33 ([place] 10-325 Mg) 1 tab Q4H PRN PO 11/20/16 00:45 12/23/16 08:58 (Compazine Inj) 10 mg Q8H PRN IV PUSH 11/25/16 16:15 11/25/16 18:00 (Milk Of Magnesia Liq) 30 ml Q12H PRN PO 11/28/16 11:30 12/26/16 10:08 (Senokot) 17.2 mg Q12H PRN PO 11/28/16 11:30 12/25/16 09:48 (Dulcolax Supp) 10 mg DAILY PRN RECTAL 11/28/16 11:30 12/11/16 12:30 (Folate) 1 mg DAILY PO 12/03/16 09:00 12/31/16 08:33 (Oramorph Sr) 30 mg Q8HR PO 12/03/16 14:00 12/31/16 06:11 (Lovenox Inj) 40 mg DAILY SQ 12/05/16 09:00 12/31/16 08:33 (Mag-Al Plus Susp Liq) 30 ml Q6HR PRN PO 12/04/16 18:00 12/06/16 08:52 (Aleks Daniels Oint) 1 applic UNSCH PRN TOPICAL 12/11/16 15:30 12/12/16 17:51 (Inderal) 10 mg Q12HR PO 12/13/16 21:00 12/31/16 08:33 (Baciguent Oint) 1 applic DAILY PRN TOPICAL 12/15/16 12:30 (Lactinex) 1 tab TID PO 12/18/16 13:00 12/31/16 08:33 (Lidoderm 5% Patch.12 Hr) 1 patch HS T-DERMAL 12/19/16 21:00 12/29/16 20:31 Miscellaneous Information 1 Q24H T-DERMAL 12/20/16 09:00 12/24/16 09:00 ([place] 10-325 Mg) 2 tab Q4H PRN PO 12/23/16 18:45 12/31/16 08:34 Vancomycin HCl 5000 mg/Sodium Chloride 3,000 ml @ 10 mls/hr Q24H PRN IRRIGATION 12/25/16 08:00 (Ferrous Sulfate) 325 mg BID@ PO 12/26/16 12:00 12/30/16 17:40 (Vitamin C) 500 mg BID PO 12/26/16 09:00 12/31/16 08:33 Pharmacy Profile Note 0 ml @ 0 mls/hr UNSCH OTHER 12/26/16 14:45 (Benadryl) 50 mg Q4H PRN PO 12/28/16 16:45 12/31/16 08:42 Vancomycin HCl 1500 mg/Sodium Chloride 515 ml @ 257.5 mls/ hr Q12H IV 12/29/16 21:00 12/31/16 08:48 A/P Problem List: (1) Fracture of tibia, left, open ICD Code: S82.202B - Unspecified fracture of shaft of left tibia, initial encounter for open fracture type I or II Status: Acute (2) Fracture of tibia, right, open ICD Code: S82.201B - Unspecified fracture of shaft of right tibia, initial encounter for open fracture type I or II Status: Acute (3) Hypotension ICD Code: I95.9 - Hypotension, unspecified Status: Acute (4) Right shoulder pain ICD Code: M25.511 - Pain in right shoulder Assessment and Plan 61-year-old male admitted secondary to bilateral leg trauma after car fell on his legs while he was working on. Open fractures were present bilaterally. Bilateral open tibia-fibula fractures Left tibial plateau fracture - Open fractures have been surgically repaired, right side has external fixation - Continue wound VAC left leg as per orthopedic surgery recommendations. Undergoing serial wound vac changes per ortho. - left tibial plateau fracture treated nonoperatively - Pin care BID to right leg - NWB BLEs - Lortab dose when necessary, Oramorph 30mg every 8 hours. MRSA - wound culture 12/23 positive for MRSA - ID following, appreciate their assistance. Started on Vanco with weekly CBC with diff, CMP per ID. Next lab draw 01/03/17. Acute blood loss anemia JAMAR - Related to trauma vs post op blood loss - Status post transfusion of 2 units of packed red blood cells in 11/12/16. - on iron supplementation daily. Iron studies reviewed. - hemoglobin stable - monitor CBC as indicated Coronary artery disease with h/o previous CABG - Appears stable. Patient is asymptomatic. - Continue propranolol and statin - ASA 81mg daily - Clonidine PRN Hypertension - controlled - RAUL inhibitor held due to hypotension. - Narcotics seem to have a depressive affect on this patient, however blood pressure has much improved after the patient was taken off IV morphine Diabetes mellitus type 2 - blood sugars well controlled Alcohol abuse Transaminitis, resolved - AST and ALT now within normal range. - Continue with daily thiamine and folic acid - Alcohol cessation recommended Tobacco abuse - Cessation recommended. Chronic essential tremor - Continue Propranolol at lower dose due to bradycardia with holding parameters, HR <55 GI prophylaxis: PPI DVT prophylaxis: Lovenox sq Discussed with patient, nursing staff and Dr. Meyer Discharge Planning Pending Ortho clearance Problem Qualifiers (1) Fracture of tibia, left, open: (2) Fracture of tibia, right, open: (3) Hypotension: (4) Right shoulder pain: Qualified Codes: M25.511 - Pain in right shoulder; G89.29 - Other chronic pain Mary De Luna Dec 31, 2016 10:59
[2016-12-31 12:00] VITALS: BP 123/76; PULSE 71; RESP 18; TEMP 97.2; O2SAT 98
[2016-12-31] MEDS: ALUMINUM/MAGNESIUM/SIMETH 30 ML CUP PO PRN (12:33)
[2016-12-31] MEDS: FERROUS SULFATE 325 MG (65 MG ELEMENTAL IRON) TAB PO SCH ×2 (12:34→16:58)
[2016-12-31 16:00] VITALS: BP 112/65; PULSE 62; RESP 18; TEMP 96.6; O2SAT 97
[2016-12-31 19:00] VITALS: BP 124/69; PULSE 64; RESP 16; TEMP 96.7; O2SAT 100
[2016-12-31] MEDS: traZODone HCL 100 MG TAB PO SCH (22:15)
[2016-12-31] MEDS: PRAVASTATIN SOD 80 MG TAB PO SCH (22:15)
[2016-12-31] MEDS: MAGNESIUM HYDROXIDE SUSP 30 ML CUP PO SCH (22:15)
[2016-12-31] MEDS: LIDOCAINE HCL 5% PATCH T-DERMAL SCH (22:21)
[2017-01-01] MEDS: ACETAMINOPHEN/HYDROcodone 325 MG/10 MG TAB PO PRN ×4 (02:42→20:37)
[2017-01-01] MEDS: MORPHINE SULFATE 30 MG CONTROLLED RELEASE TAB PO SCH ×3 (06:25→20:37)
--- NOTE | 2017-01-01 06:34 | PD.ORT.PN ---
Subjective Subjective Remarks Pain controlled Doing well Objective Vitals Vital Signs Date Time Temp Pulse Resp B/P (MAP) Pulse Ox O2 Delivery O2 Flow Rate FiO2 01/01/17 03:43 16 01/01/17 01:50 Room Air 12/31/16 23:27 18 12/31/16 19:00 96.7 64 16 124/69 (87) 100 12/31/16 16:00 96.6 62 18 112/65 (81) 97 12/31/16 12:00 97.2 71 18 123/76 (92) 98 12/31/16 08:00 97.7 64 18 114/65 (81) 97 I/O 12/31/16 12/31/16 12/31/16 01/01/17 01/01/17 01/01/17 07:00 15:00 23:00 07:00 15:00 23:00 Intake Total 995 ml 1475 ml 480 ml 995 ml Output Total 1350 ml 750 ml Balance -355 ml 1475 ml -270 ml 995 ml Intake Oral 480 ml 960 ml 480 ml 480 ml IV Total 515 ml 515 ml 515 ml Output Urine Total 1100 ml Drainage Total 250 ml 750 ml # Voids 3 4 3 # Bowel Movements 2 2 0 0 Imaging Last 24 hours Impressions Pelvis X-Ray 11/07/16 1355 Signed Impressions: Service Date/Time: Monday, November 07, 2016 13:34 - CONCLUSION: No acute disease. Behzad Finch Jr., MD Chest X-Ray 11/07/16 1355 Signed Impressions: Service Date/Time: Monday, November 07, 2016 13:34 - CONCLUSION: No acute disease. Jac Gonzales MD Objective Remarks RLE: Dressings clean and dry. intact. with full sensation and motor function. + exfix. pin sites--first metatarsal pin is loose, other pins appear to be clean and dry LLE: Wound VAC intact. Good seal. no sensation over medial foot. slight stiffness with dorsiflexion.CKS. Assessment & Plan Assessment and Plan 1) Right Open Tibia Fracture s/p exfix revision with ORIF 2) Left Open Tibia Fracture s/p Soleus muscle flap with IMN and removal of exfix 3) left tibia plateau fracture treated nonoperatively 4) s/p vac change with collagen grafting 12/30 -NWB BLE -pin care BID right leg -veraflow vac placed on left leg -vac settings: -soak time: 3min of 10 CCs -suction: 15min @ 100mmHg -maintain vac at all times -will plan on vac change Thursday Ronald Hatch Jr. Jan 01, 2017 06:34
[2017-01-01 08:00] VITALS: BP 112/67; PULSE 74; RESP 16; TEMP 97; O2SAT 99
[2017-01-01] MEDS: NEOMYCIN/POLYMYXIN/BACITRACIN OINT 15 GM TUBE TOPICAL SCH (09:00)
[2017-01-01] MEDS: LACTOBACILLUS ACIDOPHILUS TAB PO SCH ×3 (09:00→16:51)
[2017-01-01] MEDS: DOCUSATE SODIUM 50 MG/SENNA 8.6 MG TAB PO SCH ×2 (09:00→20:36)
[2017-01-01] MEDS: REMOVE OLD LIDOCAINE PATCH T-DERMAL SCH (09:00)
--- NOTE | 2017-01-01 09:59 | RADRPT ---
EXAM DATE/TIME: 01/01/2017 09:33 [facility] COMPARISON: No previous studies available for comparison. INDICATIONS : Left tibial rodding post trauma. MEDICAL HISTORY : None. SURGICAL HISTORY : Bilateral lower leg fixation ENCOUNTER: Subsequent ACUITY: 3 months PAIN SCORE: 7/10 LOCATION: Bilateral lower legs FINDINGS: Two views left lower leg demonstrate the patient has an IM nail in the fib/tibia with two proximal tw o distal interlocking screws. There is a fracture through the very lateral aspect of the lateral tib ial plateau. There are comminuted fractures of the fibula. There is no visible complication with th e hardware. CONCLUSION: There are no complications. Paul Fuentes MD on January 01, 2017 at 9:52 Board Certified Radiologist. This report was verified electronically.
--- NOTE | 2017-01-01 10:04 | RADRPT ---
EXAM DATE/TIME: 01/01/2017 09:34 [facility] COMPARISON: No previous studies available for comparison. INDICATIONS : Right external fixator application on lower leg. MEDICAL HISTORY : None. SURGICAL HISTORY : Bilateral lower left fx ENCOUNTER: Subsequent ACUITY: 3 months PAIN SCORE: 7/10 LOCATION: Bilateral lower legs FINDINGS: Three view right lower leg demonstrates has an external fixator in place. Two screws traverse the ob lique tibial fracture. The tibia fracture has a slight anterior angulation. There is a long screw i n the fibular fracture with a fragment posteriorly. Talar dome is preserved. External fixator is in good position without complication. There is a fibula neck fracture. There are multiple bone infar cts in the distal femur. CONCLUSION: External fixator in good position. Fracture fragments aas described above. Paul Fuentes MD on January 01, 2017 at 9:51 Board Certified Radiologist. This report was verified electronically.
--- NOTE | 2017-01-01 10:09 | RADRPT ---
EXAM DATE/TIME: 01/01/2017 09:37 [facility] COMPARISON: No previous studies available for comparison. INDICATIONS : Left tibial rodding post trauma. MEDICAL HISTORY : None. SURGICAL HISTORY : Bilateral lower extremity surgery ENCOUNTER: Subsequent ACUITY: 3 months PAIN SCORE: 7/10 LOCATION: Left knee FINDINGS: Two view left knee demonstrates there is a parasagittal fracture through the lateral margin of the la teral tibial plateau. Tibial IM nail is in good position. There is a small joint effusion. There i s a bone infarct in the lateral femoral condyle, chronic. CONCLUSION: Lateral tibial plateau fracture without involvement of the articulating surface. Paul Fuentes MD on January 01, 2017 at 9:53 Board Certified Radiologist. This report was verified electronically.
[2017-01-01] MEDS: ENOXAPARIN SODIUM 40 MG/0.4 ML SYRINGE SQ SCH (10:23)
[2017-01-01] MEDS: FOLIC ACID 1 MG TAB PO SCH (10:24)
[2017-01-01] MEDS: PANTOPRAZOLE SOD 40 MG DELAYED RELEASE TAB PO SCH (10:24)
[2017-01-01] MEDS: ASCORBIC ACID 500 MG TAB PO SCH ×2 (10:24→20:36)
[2017-01-01] MEDS: THIAMINE HCL 100 MG TAB PO SCH (10:24)
[2017-01-01] MEDS: GABAPENTIN 300 MG CAP PO SCH ×3 (10:24→16:51)
[2017-01-01] MEDS: CALCIUM/VITAMIN D 250 MG/125 U TAB PO SCH ×3 (10:24→16:52)
[2017-01-01] MEDS: ASPIRIN 81 MG CHEW TAB CHEW SCH (10:24)
[2017-01-01] MEDS: PROPRANOLOL HCL 10 MG TAB PO SCH ×2 (10:24→20:36)
[2017-01-01] MEDS: diphenhydrAMINE HCL 50 MG CAP PO PRN ×2 (10:24→20:36)
[2017-01-01] MEDS: VANCOMYCIN 1,500 MG/NS 500 ML IV SCH ×4 (10:26→20:37)
[2017-01-01] MEDS: SODIUM CHLORIDE 0.9% FLUSH 10 ML FLUSH IV FLUSH SCH ×2 (10:26→20:37)
--- NOTE | 2017-01-01 10:42 | HHI.PR ---
Subjective Remarks Follow-up visit bilateral leg trauma, external fixator in place RLE, wound vac LLE, MRSA. Patient seen and examined. Patient denies any complaints today. Witnessed eating all of breakfast. Denies any fever or chills. Denies any N/V or abdominal pain. Denies any chest pain or shortness of breath. BLE pain controlled. Objective Vitals Vital Signs Date Time Temp Pulse Resp B/P (MAP) Pulse Ox O2 Delivery O2 Flow Rate FiO2 01/01/17 07:31 18 01/01/17 03:43 16 01/01/17 01:50 Room Air 12/31/16 19:00 96.7 64 16 124/69 (87) 100 12/31/16 16:00 96.6 62 18 112/65 (81) 97 12/31/16 12:00 97.2 71 18 123/76 (92) 98 I/O 12/31/16 12/31/16 12/31/16 01/01/17 01/01/17 01/01/17 07:00 15:00 23:00 07:00 15:00 23:00 Intake Total 995 ml 1475 ml 480 ml 995 ml Output Total 1350 ml 750 ml 150 ml Balance -355 ml 1475 ml -270 ml 845 ml Intake Oral 480 ml 960 ml 480 ml 480 ml IV Total 515 ml 515 ml 515 ml Output Urine Total 1100 ml Drainage Total 250 ml 750 ml 150 ml # Voids 3 4 3 # Bowel Movements 2 2 0 0 Imaging Last Impressions Foot X-Ray 12/27/16 0000 Signed Impressions: Service Date/Time: Tuesday, December 27, 2016 16:50 - CONCLUSION: Distal tibia and fibula fractures with internal fixation hardware. Samir Massey MD Ankle X-Ray 12/17/16 0000 Signed Impressions: Service Date/Time: Saturday, December 17, 2016 10:13 - CONCLUSION: Intramedullary mariano in tibia. Severely comminuted fibular fracture. Arvind Flores MD FACR Gall Bladder Ultrasound 12/05/16 0000 Signed Impressions: Service Date/Time: Monday, December 05, 2016 08:38 - CONCLUSION: Unremarkable exam. Gallbladder is within normal limits with no evidence of cholelithiasis. Ronald Rao MD Abdomen X-Ray 12/04/16 0000 Signed Impressions: Service Date/Time: November 10:42 - CONCLUSION: Unremarkable bowel gas pattern. Ronald Rao MD Knee X-Ray 11/25/16 0000 Signed Impressions: Service Date/Time: Friday, November 25, 2016 06:44 - CONCLUSION: Post surgical changes are identified. Mumtaz Cornelius MD Tibia/Fibula X-Ray 11/24/16 0000 Signed Impressions: Service Date/Time: Thursday, November 24, 2016 10:06 - CONCLUSION: 1. Mildly displaced lateral tibial plateau fracture which is not clearly evident on the previous studies. 2. Otherwise stable left tibia status post ORIF. 3. Wound VAC remains in place. Dex Wild MD Chest X-Ray 11/20/16 0000 Signed Impressions: Service Date/Time: November 17:08 - CONCLUSION: 1. No acute abnormality or significant interval change. Sukhi Stevens MD Pelvis X-Ray 11/07/16 1355 Signed Impressions: Service Date/Time: Monday, November 07, 2016 13:34 - CONCLUSION: No acute disease. Behzad Finch Jr., MD Objective Remarks GENERAL: This is a well-nourished, well-developed patient, in no apparent distress. Awake and alert. Sitting up in hospital bed eating breakfast. SKIN: Warm and dry. Wound VAC in place left lower extremity draining serosanguineous fluid. Dressing C/D/I. HEENT: Normocephalic. EOMI. Nose without bleeding. MMM. Airway patent. NECK: Trachea midline. Supple. CARDIOVASCULAR: Regular rate and rhythm without murmurs, gallops, or rubs. RESPIRATORY: Clear to auscultation. Breath sounds equal bilaterally. No wheezes , rales, or rhonchi. GASTROINTESTINAL: Abdomen soft, non-tender, nondistended. Bowel Sounds normoactive x4. MUSCULOSKELETAL: Extremities without clubbing, cyanosis. Right lower extremity with external fixation in place. Left lower leg with Raul wrap's, wound vac in place. Bilateral toes able to wiggle weakly. Pulses palpable. Edema noted in bilateral feet improving. Decreased sensation medial aspect of left foot. NEUROLOGICAL: Awake and alert. Oriented to time, place, person. No focal neuro deficit. Non-tremulous. Moves all extremities. Normal speech. Procedures 1.s/p I&D with ex fix application bilateral tibias s/p wound vac application left tibia 2.With the assistance of RN, under sterile technique the avulsed skin of the right middle finger was clipped. No bleeding noted. Patient gave consent 3.Open reduction internal fixation of right distal tibia and fibula fractures Nonoperative treatment left tibial plateau fracture Irrigation and debridement of left tibia shaft fracture, removal external fixation, soleus muscle rotational flap, intramedullary nail fixation left tibia , application of wound VAC dressing 4.11/13 Irrigation and debridement of left tibia, application wound VAC dressing 5. 11/28 Irrigation and debridement of left open tibia fracture with application of wound VAC dressing 6. 12/01 wound vac change at the bedside 7. 12/05 wound vac change at the bedside 8. 12/08 wound vac change at the bedside 9. 12/09 I&D left tibia, application of wound VAC dressing and application of AlloMax allograft dermal matrix Medications and IVs Current Medications Medications (Trade) Dose Ordered Sig/Milagro Route Start Time Stop Time Status Last Admin (NS Flush) 2 ml UNSCH PRN IV FLUSH 11/07/16 14:30 12/11/16 11:31 (NS Flush) 2 ml BID IV FLUSH 11/07/16 21:00 01/01/17 10:26 (Zofran Inj) 4 mg Q6H PRN IV 11/07/16 14:30 12/04/16 06:13 (Narcan Inj) 0.4 mg UNSCH PRN IV 11/07/16 14:30 (Tylenol) 650 mg Q4H PRN PO 11/08/16 08:15 (Tums Chew) 1,000 mg TID PRN CHEW 11/08/16 08:15 12/06/16 08:52 (Vasotec Inj) 1.25 mg Q6H PRN IV 11/08/16 08:15 (Catapres) 0.1 mg Q6H PRN PO 11/08/16 08:15 (Aspirin Chew) 81 mg DAILY CHEW 11/08/16 12:45 01/01/17 10:24 (Prinivil) 25 mg DAILY PO 11/08/16 12:45 Future Hold 11/18/16 09:59 (Nitrostat Sl) 0.4 mg Q6HR PRN SL 11/08/16 12:45 (Protonix) 40 mg DAILY PO 11/08/16 12:45 01/01/17 10:24 (Pravachol) 80 mg HS PO 11/08/16 21:00 12/31/16 22:15 (Pill Splitter) 1 ea UNSCH PRN OTHER 11/08/16 12:45 ([place]-Colace) 1 tab BID PO 11/08/16 12:45 Future hold 12/31/16 22:16 (Vitamin B1) 100 mg DAILY PO 11/09/16 09:00 01/01/17 10:24 (Romazicon Inj) 0.2 mg Q1M PRN IV PUSH 11/08/16 13:00 (Haldol Inj) 2 mg Q15M PRN IM 11/08/16 13:00 (Neosporin Oint) 1 applic DAILY TOPICAL 11/10/16 09:00 12/28/16 09:00 (Milk Of Magnesia Liq) 30 ml HS PO 11/10/16 21:00 Future hold 12/31/16 22:15 (Oscal-D 250-125) 250 mg TID PO 11/10/16 13:00 01/01/17 10:24 (Duoneb Neb) 1 ampule Q4HR NEB PRN NEB 11/12/16 13:15 (Ambien) 5 mg HS PRN PO 11/14/16 11:00 12/29/16 22:59 (Desyrel) 100 mg HS PO 11/14/16 21:00 12/31/16 22:15 (Neurontin) 600 mg TID PO 11/16/16 13:00 01/01/17 10:24 ([place] 10-325 Mg) 1 tab Q4H PRN PO 11/20/16 00:45 12/23/16 08:58 (Compazine Inj) 10 mg Q8H PRN IV PUSH 11/25/16 16:15 11/25/16 18:00 (Milk Of Magnesia Liq) 30 ml Q12H PRN PO 11/28/16 11:30 12/26/16 10:08 (Senokot) 17.2 mg Q12H PRN PO 11/28/16 11:30 12/25/16 09:48 (Dulcolax Supp) 10 mg DAILY PRN RECTAL 11/28/16 11:30 12/11/16 12:30 (Folate) 1 mg DAILY PO 12/03/16 09:00 01/01/17 10:24 (Oramorph Sr) 30 mg Q8HR PO 12/03/16 14:00 01/01/17 06:25 (Lovenox Inj) 40 mg DAILY SQ 12/05/16 09:00 01/01/17 10:23 (Mag-Al Plus Susp Liq) 30 ml Q6HR PRN PO 12/04/16 18:00 12/31/16 12:33 (Aleks Daniels Oint) 1 applic UNSCH PRN TOPICAL 12/11/16 15:30 12/12/16 17:51 (Inderal) 10 mg Q12HR PO 12/13/16 21:00 01/01/17 10:24 (Baciguent Oint) 1 applic DAILY PRN TOPICAL 12/15/16 12:30 (Lactinex) 1 tab TID PO 12/18/16 13:00 12/31/16 17:24 (Lidoderm 5% Patch.12 Hr) 1 patch HS T-DERMAL 12/19/16 21:00 12/29/16 20:31 Miscellaneous Information 1 Q24H T-DERMAL 12/20/16 09:00 12/24/16 09:00 ([place] 10-325 Mg) 2 tab Q4H PRN PO 12/23/16 18:45 01/01/17 10:25 Vancomycin HCl 5000 mg/Sodium Chloride 3,000 ml @ 10 mls/hr Q24H PRN IRRIGATION 12/25/16 08:00 (Ferrous Sulfate) 325 mg BID@ PO 12/26/16 12:00 12/31/16 16:58 (Vitamin C) 500 mg BID PO 12/26/16 09:00 01/01/17 10:24 Pharmacy Profile Note 0 ml @ 0 mls/hr UNSCH OTHER 12/26/16 14:45 (Benadryl) 50 mg Q4H PRN PO 12/28/16 16:45 01/01/17 10:24 Vancomycin HCl 1500 mg/Sodium Chloride 515 ml @ 257.5 mls/ hr Q12H IV 12/29/16 21:00 01/01/17 10:26 A/P Problem List: (1) Fracture of tibia, left, open ICD Code: S82.202B - Unspecified fracture of shaft of left tibia, initial encounter for open fracture type I or II Status: Acute (2) Fracture of tibia, right, open ICD Code: S82.201B - Unspecified fracture of shaft of right tibia, initial encounter for open fracture type I or II Status: Acute (3) Hypotension ICD Code: I95.9 - Hypotension, unspecified Status: Acute (4) Right shoulder pain ICD Code: M25.511 - Pain in right shoulder Assessment and Plan 61-year-old male admitted secondary to bilateral leg trauma after car fell on his legs while he was working on. Open fractures were present bilaterally. Bilateral open tibia-fibula fractures Left tibial plateau fracture - Open fractures have been surgically repaired, right side has external fixation - Continue wound VAC left leg as per orthopedic surgery recommendations. Undergoing serial wound vac changes per ortho - plan for wound vac change tomorrow. - left tibial plateau fracture treated nonoperatively - Pin care BID to right leg - NWB BLEs - Lortab dose when necessary, Oramorph 30mg every 8 hours. MRSA - wound culture 12/23 positive for MRSA - ID following, appreciate their assistance. Started on Vanco with weekly CBC with diff, CMP per ID. Next lab draw 01/03/17. Acute blood loss anemia JAMAR - Related to trauma vs post op blood loss - Status post transfusion of 2 units of packed red blood cells in 11/12/16. - on iron supplementation daily. Iron studies reviewed. - hemoglobin stable - monitor CBC as indicated Coronary artery disease with h/o previous CABG - Appears stable. Patient is asymptomatic. - Continue propranolol and statin - ASA 81mg daily - Clonidine PRN Hypertension - controlled - RAUL inhibitor held due to hypotension. - Narcotics seem to have a depressive affect on this patient, however blood pressure has much improved after the patient was taken off IV morphine Diabetes mellitus type 2 - blood sugars well controlled - accuchecks discontinued Alcohol abuse Transaminitis, resolved - AST and ALT now within normal range. - Continue with daily thiamine and folic acid - Alcohol cessation recommended Tobacco abuse - Cessation recommended. Chronic essential tremor - Continue Propranolol at lower dose due to bradycardia with holding parameters, HR <55 GI prophylaxis: PPI DVT prophylaxis: Lovenox sq Discussed with patient and Dr. Meyer Discharge Planning Pending Ortho clearance Problem Qualifiers (1) Fracture of tibia, left, open: (2) Fracture of tibia, right, open: (3) Hypotension: (4) Right shoulder pain: Qualified Codes: M25.511 - Pain in right shoulder; G89.29 - Other chronic pain Mary De Luna Jan 01, 2017 10:42
[2017-01-01 11:19] VITALS: O2SAT 98
[2017-01-01 12:00] VITALS: BP 110/67; PULSE 62; RESP 16; TEMP 97.5; O2SAT 96
[2017-01-01] MEDS: FERROUS SULFATE 325 MG (65 MG ELEMENTAL IRON) TAB PO SCH ×2 (13:34→16:52)
[2017-01-01 16:00] VITALS: BP 109/61; PULSE 70; RESP 16; TEMP 97.5; O2SAT 97
[2017-01-01 20:05] VITALS: BP 120/64; PULSE 81; RESP 16; TEMP 97; O2SAT 98
[2017-01-01] MEDS: traZODone HCL 100 MG TAB PO SCH (20:36)
[2017-01-01] MEDS: PRAVASTATIN SOD 80 MG TAB PO SCH (20:36)
[2017-01-01] MEDS: MAGNESIUM HYDROXIDE SUSP 30 ML CUP PO SCH (20:38)
[2017-01-01] MEDS: LIDOCAINE HCL 5% PATCH T-DERMAL SCH (20:38)
[2017-01-02] MEDS: MORPHINE SULFATE 30 MG CONTROLLED RELEASE TAB PO SCH ×3 (05:01→22:05)
[2017-01-02] MEDS: ACETAMINOPHEN/HYDROcodone 325 MG/10 MG TAB PO PRN ×4 (05:01→22:05)
[2017-01-02 08:00] VITALS: BP 118/74; PULSE 62; RESP 18; TEMP 95.7; O2SAT 98
[2017-01-02] MEDS: DOCUSATE SODIUM 50 MG/SENNA 8.6 MG TAB PO SCH ×2 (08:34→20:28)
[2017-01-02] MEDS: GABAPENTIN 300 MG CAP PO SCH ×3 (08:34→17:29)
[2017-01-02] MEDS: THIAMINE HCL 100 MG TAB PO SCH (08:35)
[2017-01-02] MEDS: PANTOPRAZOLE SOD 40 MG DELAYED RELEASE TAB PO SCH (08:35)
[2017-01-02] MEDS: FOLIC ACID 1 MG TAB PO SCH (08:35)
[2017-01-02] MEDS: ASPIRIN 81 MG CHEW TAB CHEW SCH (08:35)
[2017-01-02] MEDS: LACTOBACILLUS ACIDOPHILUS TAB PO SCH ×3 (08:35→17:29)
[2017-01-02] MEDS: CALCIUM/VITAMIN D 250 MG/125 U TAB PO SCH ×3 (08:35→17:29)
[2017-01-02] MEDS: PROPRANOLOL HCL 10 MG TAB PO SCH ×2 (08:35→20:28)
[2017-01-02] MEDS: ASCORBIC ACID 500 MG TAB PO SCH ×2 (08:35→20:28)
[2017-01-02] MEDS: ENOXAPARIN SODIUM 40 MG/0.4 ML SYRINGE SQ SCH (08:35)
[2017-01-02] MEDS: SODIUM CHLORIDE 0.9% FLUSH 10 ML FLUSH IV FLUSH SCH ×2 (08:36→20:28)
[2017-01-02] MEDS: VANCOMYCIN 1,500 MG/NS 500 ML IV SCH ×4 (08:45→20:29)
[2017-01-02] MEDS: diphenhydrAMINE HCL 50 MG CAP PO PRN ×2 (08:50→20:28)
[2017-01-02] MEDS: REMOVE OLD LIDOCAINE PATCH T-DERMAL SCH (09:00)
[2017-01-02] MEDS: NEOMYCIN/POLYMYXIN/BACITRACIN OINT 15 GM TUBE TOPICAL SCH (09:00)
[2017-01-02 12:00] VITALS: BP 106/63; PULSE 66; RESP 18; TEMP 97; O2SAT 96
--- NOTE | 2017-01-02 12:23 | HHI.PR ---
Subjective Remarks Follow-up visit bilateral leg trauma, external fixator in place RLE, wound vac LLE, MRSA. Patient seen and examined. Patient denies any new medical complaints. He is requesting prescription for Flonase. BLE pain controlled. Has not had wound vac change as of yet today but supplies are at the bedside. Denies any fever or chills. Denies any chest pain or SOB. Denies any N/V or abdominal pain. Objective Vitals Vital Signs Date Time Temp Pulse Resp B/P (MAP) Pulse Ox O2 Delivery O2 Flow Rate FiO2 01/02/17 08:00 95.7 62 18 118/74 (89) 98 01/01/17 20:05 97.0 81 16 120/64 (82) 98 01/01/17 16:00 97.5 70 16 109/61 (77) 97 I/O 01/01/17 01/01/17 01/01/17 01/02/17 01/02/17 01/02/17 07:00 15:00 23:00 07:00 15:00 23:00 Intake Total 995 ml 600 ml 1220 ml 600 ml Output Total 150 ml 3 ml 500 ml 450 ml Balance 845 ml 597 ml 720 ml 150 ml Intake Oral 480 ml 600 ml 720 ml 600 ml IV Total 515 ml 500 ml Output Urine Total 3 ml Drainage Total 150 ml 500 ml 450 ml # Voids 3 2 2 # Bowel Movements 0 Imaging Last Impressions Tibia/Fibula X-Ray 01/01/17 0000 Signed Impressions: Service Date/Time: December 09:33 - CONCLUSION: There are no complications. Paul Fuentes MD Knee X-Ray 01/01/17 0000 Signed Impressions: Service Date/Time: December 09:37 - CONCLUSION: Lateral tibial plateau fracture without involvement of the articulating surface. Paul Fuentes MD Foot X-Ray 12/27/16 0000 Signed Impressions: Service Date/Time: Tuesday, December 27, 2016 16:50 - CONCLUSION: Distal tibia and fibula fractures with internal fixation hardware. Samir Massey MD Ankle X-Ray 12/17/16 0000 Signed Impressions: Service Date/Time: Saturday, December 17, 2016 10:13 - CONCLUSION: Intramedullary mariano in tibia. Severely comminuted fibular fracture. Arvind Flores MD FACR Gall Bladder Ultrasound 12/05/16 0000 Signed Impressions: Service Date/Time: Monday, December 05, 2016 08:38 - CONCLUSION: Unremarkable exam. Gallbladder is within normal limits with no evidence of cholelithiasis. Ronald Rao MD Abdomen X-Ray 12/04/16 0000 Signed Impressions: Service Date/Time: November 10:42 - CONCLUSION: Unremarkable bowel gas pattern. Ronald Rao MD Chest X-Ray 11/20/16 0000 Signed Impressions: Service Date/Time: November 17:08 - CONCLUSION: 1. No acute abnormality or significant interval change. Sukhi Stevens MD Pelvis X-Ray 11/07/16 1355 Signed Impressions: Service Date/Time: Monday, November 07, 2016 13:34 - CONCLUSION: No acute disease. Behzad Finch Jr., MD Objective Remarks GENERAL: This is a well-nourished, well-developed patient, in no apparent distress. Awake and alert. Propelling himself around unit in wheelchair. SKIN: Warm and dry. Wound VAC in place left lower extremity draining serosanguineous fluid. Dressing C/D/I. HEENT: Normocephalic. EOMI. Nose without bleeding. MMM. Airway patent. NECK: Trachea midline. Supple. CARDIOVASCULAR: Regular rate and rhythm without murmurs, gallops, or rubs. RESPIRATORY: Clear to auscultation. Breath sounds equal bilaterally. No wheezes , rales, or rhonchi. GASTROINTESTINAL: Abdomen soft, non-tender, nondistended. Bowel Sounds normoactive x4. MUSCULOSKELETAL: Extremities without clubbing, cyanosis. Right lower extremity with external fixation in place. Left lower leg with Raul wrap's, wound vac in place. Bilateral toes able to wiggle weakly. Pulses palpable. Edema noted in bilateral feet improving. Decreased sensation medial aspect of left foot and tops of both feet. NEUROLOGICAL: Awake and alert. Oriented to time, place, person. No focal neuro deficit. Non-tremulous. Moves all extremities. Normal speech. Procedures 1.s/p I&D with ex fix application bilateral tibias s/p wound vac application left tibia 2.With the assistance of RN, under sterile technique the avulsed skin of the right middle finger was clipped. No bleeding noted. Patient gave consent 3.Open reduction internal fixation of right distal tibia and fibula fractures Nonoperative treatment left tibial plateau fracture Irrigation and debridement of left tibia shaft fracture, removal external fixation, soleus muscle rotational flap, intramedullary nail fixation left tibia , application of wound VAC dressing 4.11/13 Irrigation and debridement of left tibia, application wound VAC dressing 5. 11/28 Irrigation and debridement of left open tibia fracture with application of wound VAC dressing 6. 12/01 wound vac change at the bedside 7. 12/05 wound vac change at the bedside 8. 12/08 wound vac change at the bedside 9. 12/09 I&D left tibia, application of wound VAC dressing and application of AlloMax allograft dermal matrix Medications and IVs Current Medications Medications (Trade) Dose Ordered Sig/Milagro Route Start Time Stop Time Status Last Admin (NS Flush) 2 ml UNSCH PRN IV FLUSH 11/07/16 14:30 12/11/16 11:31 (NS Flush) 2 ml BID IV FLUSH 11/07/16 21:00 01/02/17 08:36 (Zofran Inj) 4 mg Q6H PRN IV 11/07/16 14:30 12/04/16 06:13 (Narcan Inj) 0.4 mg UNSCH PRN IV 11/07/16 14:30 (Tylenol) 650 mg Q4H PRN PO 11/08/16 08:15 (Tums Chew) 1,000 mg TID PRN CHEW 11/08/16 08:15 12/06/16 08:52 (Vasotec Inj) 1.25 mg Q6H PRN IV 11/08/16 08:15 (Catapres) 0.1 mg Q6H PRN PO 11/08/16 08:15 (Aspirin Chew) 81 mg DAILY CHEW 11/08/16 12:45 01/02/17 08:35 (Prinivil) 25 mg DAILY PO 11/08/16 12:45 Future Hold 11/18/16 09:59 (Nitrostat Sl) 0.4 mg Q6HR PRN SL 11/08/16 12:45 (Protonix) 40 mg DAILY PO 11/08/16 12:45 01/02/17 08:35 (Pravachol) 80 mg HS PO 11/08/16 21:00 01/01/17 20:36 (Pill Splitter) 1 ea UNSCH PRN OTHER 11/08/16 12:45 (Elke-Colace) 1 tab BID PO 11/08/16 12:45 Future hold 01/01/17 20:36 (Vitamin B1) 100 mg DAILY PO 11/09/16 09:00 01/02/17 08:35 (Romazicon Inj) 0.2 mg Q1M PRN IV PUSH 11/08/16 13:00 (Haldol Inj) 2 mg Q15M PRN IM 11/08/16 13:00 (Neosporin Oint) 1 applic DAILY TOPICAL 11/10/16 09:00 12/28/16 09:00 (Milk Of Magnesia Liq) 30 ml HS PO 11/10/16 21:00 Future hold 01/01/17 20:38 (Oscal-D 250-125) 250 mg TID PO 11/10/16 13:00 01/02/17 08:35 (Duoneb Neb) 1 ampule Q4HR NEB PRN NEB 11/12/16 13:15 (Ambien) 5 mg HS PRN PO 11/14/16 11:00 12/29/16 22:59 (Desyrel) 100 mg HS PO 11/14/16 21:00 01/01/17 20:36 (Neurontin) 600 mg TID PO 11/16/16 13:00 01/02/17 08:34 ([place] 10-325 Mg) 1 tab Q4H PRN PO 11/20/16 00:45 12/23/16 08:58 (Compazine Inj) 10 mg Q8H PRN IV PUSH 11/25/16 16:15 11/25/16 18:00 (Milk Of Magnesia Liq) 30 ml Q12H PRN PO 11/28/16 11:30 12/26/16 10:08 (Senokot) 17.2 mg Q12H PRN PO 11/28/16 11:30 12/25/16 09:48 (Dulcolax Supp) 10 mg DAILY PRN RECTAL 11/28/16 11:30 12/11/16 12:30 (Folate) 1 mg DAILY PO 12/03/16 09:00 01/02/17 08:35 (Oramorph Sr) 30 mg Q8HR PO 12/03/16 14:00 01/02/17 05:01 (Lovenox Inj) 40 mg DAILY SQ 12/05/16 09:00 01/02/17 08:35 (Mag-Al Plus Susp Liq) 30 ml Q6HR PRN PO 12/04/16 18:00 12/31/16 12:33 (Aleks Daniels Oint) 1 applic UNSCH PRN TOPICAL 12/11/16 15:30 12/12/16 17:51 (Inderal) 10 mg Q12HR PO 12/13/16 21:00 01/02/17 08:35 (Baciguent Oint) 1 applic DAILY PRN TOPICAL 12/15/16 12:30 (Lactinex) 1 tab TID PO 12/18/16 13:00 01/02/17 08:35 (Lidoderm 5% Patch.12 Hr) 1 patch HS T-DERMAL 12/19/16 21:00 12/29/16 20:31 Miscellaneous Information 1 Q24H T-DERMAL 12/20/16 09:00 12/24/16 09:00 ([place] 10-325 Mg) 2 tab Q4H PRN PO 12/23/16 18:45 01/02/17 08:46 Vancomycin HCl 5000 mg/Sodium Chloride 3,000 ml @ 10 mls/hr Q24H PRN IRRIGATION 12/25/16 08:00 (Ferrous Sulfate) 325 mg BID@12,17 PO 12/26/16 12:00 01/01/17 16:52 (Vitamin C) 500 mg BID PO 12/26/16 09:00 01/02/17 08:35 Pharmacy Profile Note 0 ml @ 0 mls/hr UNSCH OTHER 12/26/16 14:45 (Benadryl) 50 mg Q4H PRN PO 12/28/16 16:45 01/02/17 08:50 Vancomycin HCl 1500 mg/Sodium Chloride 515 ml @ 257.5 mls/ hr Q12H IV 12/29/16 21:00 01/02/17 08:45 Miscellaneous Information SPECIFIC LAB TO BE LEANNA... ONCE ONCE .XX 01/03/17 08:45 01/03/17 08:46 A/P Problem List: (1) Fracture of tibia, left, open ICD Code: S82.202B - Unspecified fracture of shaft of left tibia, initial encounter for open fracture type I or II Status: Acute (2) Fracture of tibia, right, open ICD Code: S82.201B - Unspecified fracture of shaft of right tibia, initial encounter for open fracture type I or II Status: Acute (3) Hypotension ICD Code: I95.9 - Hypotension, unspecified Status: Acute (4) Right shoulder pain ICD Code: M25.511 - Pain in right shoulder Assessment and Plan 61-year-old male admitted secondary to bilateral leg trauma after car fell on his legs while he was working on. Open fractures were present bilaterally. Bilateral open tibia-fibula fractures Left tibial plateau fracture - Open fractures have been surgically repaired, right side has external fixation - Continue wound VAC left leg as per orthopedic surgery recommendations. Undergoing serial wound vac changes per ortho - plan for wound vac change today. - left tibial plateau fracture treated nonoperatively - Pin care BID to right leg - NWB BLEs - Lortab dose when necessary, Oramorph 30mg every 8 hours. MRSA - wound culture 12/23 positive for MRSA - ID following, appreciate their assistance. Started on Vanco with weekly CBC with diff, CMP per ID. Next lab draw 01/03/17. Acute blood loss anemia JAMAR - Related to trauma vs post op blood loss - Status post transfusion of 2 units of packed red blood cells in 11/12/16. - on iron supplementation daily. Iron studies reviewed. - hemoglobin stable - monitor CBC as indicated Coronary artery disease with h/o previous CABG - Appears stable. Patient is asymptomatic. - Continue propranolol and statin - ASA 81mg daily - Clonidine PRN Hypertension - controlled - RAUL inhibitor held due to hypotension. - Narcotics seem to have a depressive affect on this patient, however blood pressure has much improved after the patient was taken off IV morphine Diabetes mellitus type 2 - blood sugars well controlled - accuchecks discontinued Alcohol abuse Transaminitis, resolved - AST and ALT now within normal range. - Continue with daily thiamine and folic acid - Alcohol cessation recommended Tobacco abuse - Cessation recommended. Chronic essential tremor - Continue Propranolol at lower dose due to bradycardia with holding parameters, HR <55 Allergic rhinitis - Flonase ordered GI prophylaxis: PPI DVT prophylaxis: Lovenox sq Discussed with patient and Dr. Meyer Discharge Planning Pending Ortho clearance Attending Statement Patient seen and examined. Agree with above. Patient in wheelchair. No complaints at this time. Ex-fix on RLE. LLE bandaged. Sensation decreased over much of both feet. RRR. Lungs are clear. Continue current management of injuries per orthopedic surgery. Problem Qualifiers (1) Fracture of tibia, left, open: (2) Fracture of tibia, right, open: (3) Hypotension: (4) Right shoulder pain: Qualified Codes: M25.511 - Pain in right shoulder; G89.29 - Other chronic pain Mary De Luna Jan 02, 2017 12:23 Mac Meyer MD Jan 02, 2017 14:07
[2017-01-02] MEDS: FERROUS SULFATE 325 MG (65 MG ELEMENTAL IRON) TAB PO SCH ×2 (14:15→17:29)
[2017-01-02 16:00] VITALS: BP 124/76; PULSE 77; RESP 18; TEMP 97.7; O2SAT 97
--- NOTE | 2017-01-02 17:02 | PD.ORT.PN ---
Subjective Subjective Remarks s/p left tibia IMN and right tibia ORIF with exfix s/p left tibia soleus flap s/p left tibial plateau fracture doing well. pain controlled. ambulating with wheelchair. cultures yesterday came back positive or MRSA from wound on leg Objective Vitals Vital Signs Date Time Temp Pulse Resp B/P (MAP) Pulse Ox O2 Delivery O2 Flow Rate FiO2 01/02/17 12:00 97.0 66 18 106/63 (77) 96 01/02/17 08:00 95.7 62 18 118/74 (89) 98 01/01/17 20:05 97.0 81 16 120/64 (82) 98 I/O 01/01/17 01/01/17 01/01/17 01/02/17 01/02/17 01/02/17 06:59 14:59 22:59 06:59 14:59 22:59 Intake Total 995 ml 600 ml 1220 ml 600 ml Output Total 150 ml 3 ml 500 ml 450 ml 100 ml Balance 845 ml 597 ml 720 ml 150 ml -100 ml Intake Oral 480 ml 600 ml 720 ml 600 ml IV Total 515 ml 500 ml Output Urine Total 3 ml Drainage Total 150 ml 500 ml 450 ml 100 ml # Voids 3 2 2 # Bowel Movements 0 Imaging Last 24 hours Impressions Pelvis X-Ray 11/07/16 1355 Signed Impressions: Service Date/Time: Monday, November 07, 2016 13:34 - CONCLUSION: No acute disease. Behzad Finch Jr., MD Chest X-Ray 11/07/16 1355 Signed Impressions: Service Date/Time: Monday, November 07, 2016 13:34 - CONCLUSION: No acute disease. Jac Gonzales MD Objective Remarks RLE: Dressings clean and dry. intact. with full sensation and motor function. + exfix. pin sites--first metatarsal pin is loose, other pins appear to be clean and dry LLE: Wound VAC intact. Good seal. no sensation over medial foot. slight stiffness with dorsiflexion.CKS. Assessment & Plan Assessment and Plan 1) Right Open Tibia Fracture s/p exfix revision with ORIF 2) Left Open Tibia Fracture s/p Soleus muscle flap with IMN and removal of exfix 3) left tibia plateau fracture treated nonoperatively 4) s/p vac change with collagen grafting 01/02/17 -NWB BLE -pin care BID right leg -veraflow vac placed on left leg -vac settings: -soak time: 3min of 10 CCs -suction: 15min @ 100mmHg -maintain vac at all times -will plan on vac change Jef Kaur Jan 02, 2017 17:02
[2017-01-02 20:00] VITALS: BP 123/76; PULSE 87; RESP 16; TEMP 97.6; O2SAT 98
[2017-01-02] MEDS: traZODone HCL 100 MG TAB PO SCH (20:28)
[2017-01-02] MEDS: PRAVASTATIN SOD 80 MG TAB PO SCH (20:28)
[2017-01-02] MEDS: FLUTICASONE PROPIONATE 50 MCG/ACT 16 GM NASAL SPRAY NASAL SCH (20:28)
[2017-01-02] MEDS: MAGNESIUM HYDROXIDE SUSP 30 ML CUP PO SCH (20:28)
[2017-01-02] MEDS: LIDOCAINE HCL 5% PATCH T-DERMAL SCH (20:29)
[2017-01-03] MEDS: ACETAMINOPHEN/HYDROcodone 325 MG/10 MG TAB PO PRN ×5 (04:25→22:25)
[2017-01-03] MEDS: MORPHINE SULFATE 30 MG CONTROLLED RELEASE TAB PO SCH ×3 (06:04→20:54)
[2017-01-03 08:00] VITALS: BP 122/71; PULSE 63; RESP 18; TEMP 96.5; O2SAT 96
[2017-01-03 08:33] LABS: BASOPHIL % 0.3 % (0.0-2.0); EOSINOPHIL # 0.2 TH/MM3 (0-0.4); EOSINOPHIL % 2.2 % (0.0-4.0); HEMATOCRIT 34.8 % (39.0-51.0); HEMO FLAGS DIFF FINAL; LYMPH % 17.4 % (9.0-44.0); LYMPHOCYTE # 1.8 TH/MM3 (1.0-4.8); MEAN CELL VOLUME 91.4 FL (80.0-100.0); MEAN CORPUSCULAR HGB CONC 32.8 % (32.0-36.0); MONO % 11.2 % (0.0-8.0); NEUT % 68.9 % (16.0-70.0); PLATELET COUNT 248 TH/MM3 (150-450); RED BLOOD COUNT 3.81 MIL/MM3 (4.50-5.90); RED CELL DISTRIBUTION WIDTH 13.4 % (11.6-17.2); WHITE BLOOD COUNT 10.2 TH/MM3 (4.0-11.0)
[2017-01-03] MEDS ORDERED: PHARMACY ORDERED LAB ONE ×2 (08:45→20:45)
[2017-01-03] MEDS: ASCORBIC ACID 500 MG TAB PO SCH ×2 (08:51→20:54)
[2017-01-03] MEDS: VANCOMYCIN 1,500 MG/NS 500 ML IV SCH ×4 (08:51→22:22)
[2017-01-03] MEDS: PROPRANOLOL HCL 10 MG TAB PO SCH ×2 (08:51→20:54)
[2017-01-03] MEDS: ENOXAPARIN SODIUM 40 MG/0.4 ML SYRINGE SQ SCH (08:51)
[2017-01-03] MEDS: GABAPENTIN 300 MG CAP PO SCH ×3 (08:51→17:09)
[2017-01-03] MEDS: PANTOPRAZOLE SOD 40 MG DELAYED RELEASE TAB PO SCH (08:51)
[2017-01-03] MEDS: FOLIC ACID 1 MG TAB PO SCH (08:51)
[2017-01-03] MEDS: DOCUSATE SODIUM 50 MG/SENNA 8.6 MG TAB PO SCH ×2 (08:52→20:55)
[2017-01-03] MEDS: NEOMYCIN/POLYMYXIN/BACITRACIN OINT 15 GM TUBE TOPICAL SCH (08:52)
[2017-01-03] MEDS: diphenhydrAMINE HCL 50 MG CAP PO PRN ×2 (08:52→20:43)
[2017-01-03] MEDS: REMOVE OLD LIDOCAINE PATCH T-DERMAL SCH (08:52)
[2017-01-03] MEDS: ASPIRIN 81 MG CHEW TAB CHEW SCH (08:52)
[2017-01-03] MEDS: LACTOBACILLUS ACIDOPHILUS TAB PO SCH ×3 (08:52→17:09)
[2017-01-03] MEDS: SODIUM CHLORIDE 0.9% FLUSH 10 ML FLUSH IV FLUSH SCH ×2 (08:52→20:56)
[2017-01-03] MEDS: CALCIUM/VITAMIN D 250 MG/125 U TAB PO SCH ×3 (08:52→17:09)
[2017-01-03] MEDS: THIAMINE HCL 100 MG TAB PO SCH (08:52)
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
[2017-01-03] MEDS: FLUTICASONE PROPIONATE 50 MCG/ACT 16 GM NASAL SPRAY NASAL SCH ×2 (09:00→20:57)
[2017-01-03 09:01] LABS: ANION GAP 7 MEQ/L (5-15); AST (GOT) 14 U/L (15-37); BICARBONATE 31.1 MEQ/L (21.0-32.0); BLOOD UREA NITROGEN 6 MG/DL (7-18); CHLORIDE 101 MEQ/L (98-107); GLOMERULAR FILTRATION RATE 103 ML/MIN (>89); POTASSIUM 4.3 MEQ/L (3.5-5.1); SODIUM (NA) 139 MEQ/L (136-145)
[2017-01-03 09:05] LABS: ALKALINE PHOSPHATASE 65 U/L (45-117); ALT (GPT) 10 U/L (12-78); TOTAL BILIRUBIN ADULT 0.2 MG/DL (0.2-1.0)
[2017-01-03 12:00] VITALS: BP 105/62; PULSE 68; RESP 18; TEMP 97.1; O2SAT 95
[2017-01-03] MEDS: FERROUS SULFATE 325 MG (65 MG ELEMENTAL IRON) TAB PO SCH ×2 (12:35→17:09)
[2017-01-03 16:00] VITALS: BP 115/68; PULSE 76; RESP 18; TEMP 96.5; O2SAT 98
[2017-01-03] MEDS: IRR IRRIGATION PRN (18:54)
[2017-01-03] MEDS: SODIUM CHLORIDE 0.9% IRRIGATION PRN (18:54)
[2017-01-03] MEDS: VANCOMYCIN IRRIGATION PRN (18:54)
[2017-01-03] MEDS: CALCIUM CARBONATE 500 MG CHEWABLE TAB CHEW PRN (18:59)
[2017-01-03 20:40] VITALS: BP 122/71; PULSE 76; RESP 18; TEMP 96.4; O2SAT 97
[2017-01-03] MEDS: PRAVASTATIN SOD 80 MG TAB PO SCH (20:54)
[2017-01-03] MEDS: traZODone HCL 100 MG TAB PO SCH (20:54)
[2017-01-03] MEDS: MAGNESIUM HYDROXIDE SUSP 30 ML CUP PO SCH (20:55)
[2017-01-03] MEDS: LIDOCAINE HCL 5% PATCH T-DERMAL SCH (20:55)
[2017-01-03] MEDS: ZOLPIDEM TARTRATE 5 MG TAB PO PRN (22:24)
[2017-01-04] MEDS: ACETAMINOPHEN/HYDROcodone 325 MG/10 MG TAB PO PRN ×3 (04:51→16:37)
[2017-01-04] MEDS: MORPHINE SULFATE 30 MG CONTROLLED RELEASE TAB PO SCH ×3 (06:00→21:41)
[2017-01-04] MEDS: NEOMYCIN/POLYMYXIN/BACITRACIN OINT 15 GM TUBE TOPICAL SCH (09:00)
[2017-01-04] MEDS: FLUTICASONE PROPIONATE 50 MCG/ACT 16 GM NASAL SPRAY NASAL SCH ×2 (09:00→21:00)
[2017-01-04] MEDS: DOCUSATE SODIUM 50 MG/SENNA 8.6 MG TAB PO SCH ×2 (09:04→21:00)
[2017-01-04] MEDS: PANTOPRAZOLE SOD 40 MG DELAYED RELEASE TAB PO SCH (09:04)
[2017-01-04] MEDS: CALCIUM CARBONATE 500 MG CHEWABLE TAB CHEW PRN ×2 (09:04→16:36)
[2017-01-04] MEDS: diphenhydrAMINE HCL 50 MG CAP PO PRN ×2 (09:04→21:41)
[2017-01-04] MEDS: FOLIC ACID 1 MG TAB PO SCH (09:04)
[2017-01-04] MEDS: GABAPENTIN 300 MG CAP PO SCH ×3 (09:05→16:37)
[2017-01-04] MEDS: THIAMINE HCL 100 MG TAB PO SCH (09:05)
[2017-01-04] MEDS: ENOXAPARIN SODIUM 40 MG/0.4 ML SYRINGE SQ SCH (09:05)
[2017-01-04] MEDS: ASCORBIC ACID 500 MG TAB PO SCH ×2 (09:05→21:41)
[2017-01-04] MEDS: REMOVE OLD LIDOCAINE PATCH T-DERMAL SCH (09:05)
[2017-01-04] MEDS: ASPIRIN 81 MG CHEW TAB CHEW SCH (09:05)
[2017-01-04] MEDS: LACTOBACILLUS ACIDOPHILUS TAB PO SCH ×3 (09:05→16:37)
[2017-01-04] MEDS: CALCIUM/VITAMIN D 250 MG/125 U TAB PO SCH ×3 (09:05→16:37)
[2017-01-04] MEDS: PROPRANOLOL HCL 10 MG TAB PO SCH ×2 (09:05→21:41)
[2017-01-04] MEDS: VANCOMYCIN 1,500 MG/NS 500 ML IV SCH ×4 (09:06→21:42)
[2017-01-04 09:07] VITALS: BP 118/60; PULSE 73; RESP 18; TEMP 96.8; O2SAT 98
[2017-01-04] MEDS: SODIUM CHLORIDE 0.9% FLUSH 10 ML FLUSH IV FLUSH SCH ×2 (09:07→21:42)
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
[2017-01-04] MEDS: FERROUS SULFATE 325 MG (65 MG ELEMENTAL IRON) TAB PO SCH ×2 (13:14→16:37)
[2017-01-04 16:00] VITALS: BP 137/70; PULSE 64; RESP 18; TEMP 96.9; O2SAT 98
[2017-01-04] MEDS: ALUMINUM/MAGNESIUM/SIMETH 30 ML CUP PO PRN (19:11)
[2017-01-04 20:55] VITALS: BP 126/70; PULSE 73; RESP 18; TEMP 97.2; O2SAT 98
[2017-01-04] MEDS: MAGNESIUM HYDROXIDE SUSP 30 ML CUP PO SCH (21:00)
[2017-01-04] MEDS: LIDOCAINE HCL 5% PATCH T-DERMAL SCH (21:00)
[2017-01-04] MEDS: PRAVASTATIN SOD 80 MG TAB PO SCH (21:41)
[2017-01-04] MEDS: traZODone HCL 100 MG TAB PO SCH (21:42)
[2017-01-04] MEDS ORDERED: PHARMACY ORDERED LAB ONE (21:45)
[2017-01-05] MEDS: ACETAMINOPHEN/HYDROcodone 325 MG/10 MG TAB PO PRN ×4 (02:28→22:43)
[2017-01-05] MEDS: MORPHINE SULFATE 30 MG CONTROLLED RELEASE TAB PO SCH ×3 (07:42→21:07)
[2017-01-05 08:00] VITALS: BP 109/64; PULSE 71; RESP 17; TEMP 97.4; O2SAT 96
[2017-01-05] MEDS: REMOVE OLD LIDOCAINE PATCH T-DERMAL SCH (09:00)
[2017-01-05] MEDS: SODIUM CHLORIDE 0.9% FLUSH 10 ML FLUSH IV FLUSH SCH ×2 (09:00→21:00)
[2017-01-05] MEDS: FLUTICASONE PROPIONATE 50 MCG/ACT 16 GM NASAL SPRAY NASAL SCH ×2 (09:00→21:00)
[2017-01-05] MEDS: NEOMYCIN/POLYMYXIN/BACITRACIN OINT 15 GM TUBE TOPICAL SCH (09:00)
[2017-01-05] MEDS: GABAPENTIN 300 MG CAP PO SCH ×3 (10:51→17:13)
[2017-01-05] MEDS: ENOXAPARIN SODIUM 40 MG/0.4 ML SYRINGE SQ SCH (10:51)
[2017-01-05] MEDS: VANCOMYCIN 1,500 MG/NS 500 ML IV SCH ×4 (10:51→21:07)
[2017-01-05] MEDS: THIAMINE HCL 100 MG TAB PO SCH (10:51)
[2017-01-05] MEDS: ASCORBIC ACID 500 MG TAB PO SCH ×2 (10:52→21:06)
[2017-01-05] MEDS: DOCUSATE SODIUM 50 MG/SENNA 8.6 MG TAB PO SCH ×2 (10:52→21:06)
[2017-01-05] MEDS: PANTOPRAZOLE SOD 40 MG DELAYED RELEASE TAB PO SCH (10:52)
[2017-01-05] MEDS: LACTOBACILLUS ACIDOPHILUS TAB PO SCH ×3 (10:52→17:13)
[2017-01-05] MEDS: FERROUS SULFATE 325 MG (65 MG ELEMENTAL IRON) TAB PO SCH ×2 (10:52→17:13)
[2017-01-05] MEDS: CALCIUM/VITAMIN D 250 MG/125 U TAB PO SCH ×3 (10:52→17:13)
[2017-01-05] MEDS: PROPRANOLOL HCL 10 MG TAB PO SCH ×2 (10:52→21:06)
[2017-01-05] MEDS: FOLIC ACID 1 MG TAB PO SCH (10:53)
[2017-01-05] MEDS: ASPIRIN 81 MG CHEW TAB CHEW SCH (10:54)
[2017-01-05] MEDS: diphenhydrAMINE HCL 50 MG CAP PO PRN ×2 (11:01→21:07)
--- NOTE | 2017-01-05 11:15 | HHI.PR ---
Subjective Remarks Follow-up for infection Patient is no complaints. He is very anxious to go home. He does complain of indigestion. Otherwise denies any abdominal pain or nausea or vomiting. Objective Vitals Vital Signs Date Time Temp Pulse Resp B/P (MAP) Pulse Ox O2 Delivery O2 Flow Rate FiO2 01/05/17 08:42 18 01/05/17 08:00 97.4 71 17 109/64 (79) 96 01/05/17 03:28 18 01/04/17 20:55 97.2 73 18 126/70 (88) 98 01/04/17 16:00 96.9 64 18 137/70 (92) 98 I/O 01/04/17 01/04/17 01/04/17 01/05/17 01/05/17 01/05/17 07:00 15:00 23:00 07:00 15:00 23:00 Intake Total 480 ml 1200 ml 480 ml 480 ml Output Total 800 ml 600 ml 1100 ml Balance -320 ml 1200 ml -120 ml -620 ml Intake Oral 480 ml 1200 ml 480 ml 480 ml Output Urine Total 800 ml 600 ml 1100 ml # Voids 7 # Bowel Movements 0 1 0 0 Result Diagram: 01/03/17 0800 01/03/17 0800 Objective Remarks GENERAL: Pt laying in his bed in no distress. CARDIOVASCULAR: Regular rate and rhythm without murmurs, gallops, or rubs. RESPIRATORY: Breath sounds equal bilaterally. No accessory muscle use. GASTROINTESTINAL: Abdomen soft, nondistended. Left lower quadrant tenderness elicited. MUSCULOSKELETAL: No cyanosis, or edema. Right leg ORIF. No tremor noted. Right with external fixator placed no erythema swelling or discharge noted. Procedures 1.s/p I&D with ex fix application bilateral tibias s/p wound vac application left tibia 2.With the assistance of RN, under sterile technique the avulsed skin of the right middle finger was clipped. No bleeding noted. Patient gave consent 3.Open reduction internal fixation of right distal tibia and fibula fractures Nonoperative treatment left tibial plateau fracture Irrigation and debridement of left tibia shaft fracture, removal external fixation, soleus muscle rotational flap, intramedullary nail fixation left tibia , application of wound VAC dressing 4.11/13 Irrigation and debridement of left tibia, application wound VAC dressing 5. 8 Irrigation and debridement of left open tibia fracture with application of wound VAC dressing 6. 8 wound vac change at the bedside 7. 12/05 wound vac change at the bedside 8. 12/08 wound vac change at the bedside 9. 12/09 I&D left tibia, application of wound VAC dressing and application of AlloMax allograft dermal matrix Medications and IVs Current Medications Cefazolin Sodium/ Dextrose 50 ml @ As Directed STK-MED ONCE .ROUTE Last administered on 11/13/16 08:09; Start 11/07/16 at 13:58; Stop 11/07/16 at 13:59 ; Status DC Diphtheria/ Tetanus/Acell Pertussis (Boostrix Inj) 0.5 ml STK-MED ONCE IM ; Start 11/07/16 at 13:58; Stop 11/07/16 at 13:59; Status DC Morphine Sulfate (Morphine Inj) 8 mg STK-MED ONCE .ROUTE ; Start 11/07/16 at 14: 01; Stop 11/07/16 at 14:02; Status DC Hydromorphone HCl (Dilaudid Pf Inj) 1 mg STK-MED ONCE .ROUTE Last administered on 11/07/16 19:15; Start 11/07/16 at 14:05; Stop 11/07/16 at 14:06; Status DC Lactated Ringer's 1,000 ml @ 100 mls/hr Q10H IV ; Start 11/07/16 at 14:22; Stop 11/07/16 at 19:02; Status DC Sodium Chloride (NS Flush) 2 ml UNSCH PRN IV FLUSH FLUSH AFTER USING IV ACCESS Last administered on 12/11/16 11:31; Start 11/07/16 at 14:30 Sodium Chloride (NS Flush) 2 ml BID IV FLUSH Last administered on 01/05/17 09: 00; Start 11/07/16 at 21:00 Ondansetron HCl (Zofran Inj) 4 mg Q6H PRN IV NAUSEA OR VOMITING Last administered on 12/04/16 06:13; Start 11/07/16 at 14:30 Pantoprazole Sodium (Protonix Inj) 40 mg Q24H IV Last administered on 20:00; Start 11/07/16 at 17:00; Stop 11/08/16 at 08:09; Status DC Docusate Sodium (Colace) 100 mg BID PO ; Start 11/07/16 at 21:00; Stop 11/08/16 at 13:04; Status DC Cefazolin Sodium 1000 mg/Sodium Chloride 100 ml @ 200 mls/hr Q8H IV ; Start at 22:00; Stop 11/07/16 at 22:00; Status DC Miscellaneous Information (Post-op Orders (for Pharmacy)) STAT ONCE XX ; Start 11/07/16 at 14:30; Stop 11/07/16 at 15:39; Status DC Oxycodone/ Acetaminophen (Percocet 10-325 Mg) 1 tab Q4H PRN PO 3-5; Start 11/07 at 14:30; Stop 11/07/16 at 19:03; Status DC Hydromorphone HCl (Dilaudid Pf Inj) 1 mg Q2H PRN IV Pain 6-10; Start 11/07/16 at 14:30; Stop 11/07/16 at 19:11; Status DC Naloxone HCl (Narcan Inj) 0.4 mg UNSCH PRN IV SEE LABEL COMMENTS; Start at 14:30 Gentamicin Sulfate (Gentamicin Inj) 80 mg Q8H IM ; Start 11/07/16 at 14:30; Stop 11/07/16 at 15:37; Status DC Hydromorphone HCl (Dilaudid Pf Inj) 0.5 mg AGENT LICENSING CLERK DOSING PRN IV PUSH pain; Start 11/07/16 at 14:45; Stop 11/07/16 at 19:11; Status DC Gentamicin Sulfate/Sodium Chloride 100 ml @ 200 mls/hr Q8H IV ; Start 11/07/16 at 17:00; Status Cancel Miscellaneous Information (Post-op Orders (for Pharmacy)) UNSCH X1 XX ; Start 11/07/16 at 15:45; Stop 11/08/16 at 06:00; Status DC Cefazolin Sodium (Ancef Inj) 1,000 mg STK-MED ONCE .ROUTE Last administered on 11/07/16 16:26; Start 11/07/16 at 15:48; Stop 11/07/16 at 15:49; Status DC Gentamicin Sulfate (Gentamicin Inj) 80 mg STK-MED ONCE .ROUTE Last administered on 11/07/16 16:26; Start 11/07/16 at 15:49; Stop 11/07/16 at 15:50 ; Status DC Acetaminophen (Ofirmev Inj) 1,000 mg STK-MED ONCE IV ; Start 11/07/16 at 15:56; Stop 11/07/16 at 15:57; Status DC Midazolam HCl (Versed Inj) 2 mg STK-MED ONCE .ROUTE ; Start 11/07/16 at 15:56; Stop 11/07/16 at 15:57; Status DC Famotidine (Pepcid Inj) 20 mg STK-MED ONCE .ROUTE ; Start 11/07/16 at 15:56; Stop 11/07/16 at 15:57; Status DC Gentamicin Sulfate (Gentamicin Inj) 240 mg STK-MED ONCE IRRIGATION Last administered on 11/07/16 16:26; Start 11/07/16 at 16:26; Stop 11/07/16 at 16:42 ; Status DC Fentanyl Citrate (fentaNYL INJ) 250 mcg STK-MED ONCE .ROUTE ; Start 11/07/16 at 17:03; Stop 11/07/16 at 17:04; Status DC Gentamicin Sulfate (Gentamicin Inj) 240 mg STK-MED ONCE .ROUTE Last administered on 11/07/16 16:26; Start 11/07/16 at 17:10; Stop 11/07/16 at 17:11 ; Status DC Lactated Ringer's 1,000 ml @ 100 mls/hr Q10H IV Last administered on 07:51; Start 11/07/16 at 18:00; Stop 11/08/16 at 12:46; Status DC Enoxaparin Sodium (Lovenox Inj) 30 mg Q12H SQ ; Start 11/08/16 at 17:00; Stop at 11:48; Status DC Cefazolin Sodium/ Dextrose 50 ml @ 100 mls/hr Q8H IV Last administered on 11/10 08:16; Start 11/08/16 at 00:00; Stop 11/10/16 at 12:47; Status DC Gentamicin Sulfate/Sodium Chloride 100 ml @ 200 mls/hr Q8H IV Last administered on 11/10/16 16:30; Start 11/08/16 at 00:00; Stop 11/10/16 at 16:29 ; Status DC Acetaminophen/ Hydrocodone Bitart ([place] 10-325 Mg) 1 tab Q3H PRN PO PAIN 3<10 Last administered on 11/08/16 10:36; Start 11/07/16 at 18:00; Stop 11/08/16 at 13:04; Status DC Morphine Sulfate (Morphine Inj) 4 mg Q3H PRN IV PUSH Break thru Pain Last administered on 11/08/16 07:50; Start 11/07/16 at 18:00; Stop 11/08/16 at 12:21 ; Status DC Ketorolac Tromethamine (Toradol Inj) 30 mg Q12H IVP Last administered on 05:32; Start 11/07/16 at 18:00; Stop 11/10/16 at 06:01; Status DC Bacitracin (Baciguent Oint) 15 applic STK-MED ONCE .ROUTE Last administered on 11/07/16 18:09; Start 11/07/16 at 18:09; Stop 11/07/16 at 18:10; Status DC Miscellaneous Information ALL NURSING DEPARTME... UNSCH PRN .XX SEE LABEL COMMENTS; Start 11/07/16 at 18:33; Stop 11/08/16 at 18:32; Status DC Acetaminophen (Tylenol) 650 mg Q4H PRN PO Temp > 100.4, pain 1-2; Start at 08:15 Magnesium Hydroxide (Milk Of Magnesia Liq) 30 ml DAILY PRN PO for Severe Constipation Last administered on 11/09/16 20:15; Start 11/08/16 at 08:15; Stop 11/10/16 at 09:00; Status DC Calcium Carbonate (Tums Chew) 1,000 mg TID PRN CHEW DYSPEPSIA Last administered on 01/04/17 16:36; Start 11/08/16 at 08:15 Dextrose (D50w (Vial) Inj) 50 ml UNSCH PRN IV HYPOGLYCEMIA-SEE COMMENTS; Start 11/08/16 at 08:15; Stop 12/03/16 at 09:16; Status DC Glucagon (Glucagon Inj) 1 mg UNSCH PRN OTHER HYPOGLYCEMIA-SEE COMMENTS; Start 11/08/16 at 08:15; Stop 12/03/16 at 09:16; Status DC Insulin Aspart (NovoLOG SUPPLEMENTAL SCALE) 1 ACHS SLIDING SCALE SQ Last administered on 12/01/16 13:21; Start 11/08/16 at 11:00; Stop 12/03/16 at 09:16 ; Status DC Enalaprilat (Vasotec Inj) 1.25 mg Q6H PRN IV SBP> OR = 180, DBP> OR = 100; Start 11/08/16 at 08:15 Clonidine (Catapres) 0.1 mg Q6H PRN PO SBP> OR = 180, DBP> OR = 100; Start at 08:15 Gabapentin (Neurontin) 400 mg TID PO Last administered on 11/16/16 09:10; Start 11/08/16 at 13:00; Stop 11/16/16 at 11:46; Status DC Morphine Sulfate (Morphine Inj) 6 mg Q3H PRN IV PUSH PAIN 6-10 Last administered on 11/17/16 15:09; Start 11/08/16 at 15:00; Stop 11/18/16 at 16:37 ; Status DC Aspirin (Aspirin Chew) 81 mg DAILY CHEW Last administered on 01/05/17 10:54; Start 11/08/16 at 12:45 Ferrous Sulfate (Ferrous Sulfate) 325 mg DAILY PO Last administered on 08:11; Start 11/08/16 at 12:45; Stop 12/05/16 at 09:25; Status DC Lisinopril (Prinivil) 25 mg DAILY PO Last administered on 11/18/16 09:59; Start 11/08/16 at 12:45; Status Future Hold Nitroglycerin (Nitrostat Sl) 0.4 mg Q6HR PRN SL CHEST PAIN; Start 11/08/16 at 12:45 Pantoprazole Sodium (Protonix) 40 mg DAILY PO Last administered on 01/05/17 10 :52; Start 11/08/16 at 12:45 Pravastatin Sodium (Pravachol) 80 mg HS PO Last administered on 01/04/17 21:41 ; Start 11/08/16 at 21:00 Propranolol HCl (Inderal) 80 mg Q12HR PO Last administered on 11/18/16 10:01; Start 11/08/16 at 21:00; Stop 11/22/16 at 12:49; Status DC Miscellaneous (Pill Splitter) 1 ea UNSCH PRN OTHER SEE LABEL COMMENTS; Start at 12:45 Senna/Docusate Sodium (Elke-Colace) 1 tab BID PO Last administered on 10:52; Start 11/08/16 at 12:45; Status Future hold Lactulose (Lactulose Liq) 30 ml DAILY PRN PO No BM in 2 days; Start 11/08/16 at 12:45; Stop 11/10/16 at 07:47; Status DC Acetaminophen/ Hydrocodone Bitart ([place] 10-325 Mg) 1.5 tab Q3H PRN PO PAIN 3- 10 Last administered on 11/09/16 23:46; Start 11/08/16 at 15:00; Stop 11/10/16 at 12:45; Status DC Folic Acid (Folate) 1 mg DAILY PO Last administered on 11/12/16 09:14; Start 11/09/16 at 09:00; Stop 11/14/16 at 08:59; Status DC Thiamine HCl (Vitamin B1) 100 mg DAILY PO Last administered on 01/05/17 10:51 ; Start 11/09/16 at 09:00 Multivitamins/ Minerals Therapeutic (Theragran M Tab) 1 tab DAILY PO Last administered on 11/12/16 09:13; Start 11/09/16 at 09:00; Stop 11/14/16 at 08:59 ; Status DC Flumazenil (Romazicon Inj) 0.2 mg Q1M PRN IV PUSH SEE LABEL COMMENTS; Start at 13:00 Lorazepam (Ativan) 1 mg Q4H PRN PO CIWA 8 - 10; Start 11/08/16 at 13:00; Stop 11/26/16 at 16:05; Status DC Lorazepam (Ativan Inj) 1 mg Q4H PRN IV PUSH CIWA 8 - 10; Start 11/08/16 at 13: 00; Stop 11/26/16 at 16:05; Status DC Lorazepam (Ativan) 2 mg Q2H PRN PO CIWA 11-14; Start 11/08/16 at 13:00; Stop at 16:05; Status DC Lorazepam (Ativan Inj) 2 mg Q2H PRN IV PUSH CIWA 11-14; Start 11/08/16 at 13:00 ; Stop 11/26/16 at 16:05; Status DC Lorazepam (Ativan Inj) 2 mg Q1H PRN IV PUSH CIWA 15-20; Start 11/08/16 at 13:00 ; Stop 11/26/16 at 16:05; Status DC Lorazepam (Ativan Inj) 2 mg Q15M PRN IV PUSH CIWA > 20; Start 11/08/16 at 13:00 ; Stop 11/26/16 at 16:05; Status DC Haloperidol Lactate (Haldol Inj) 2 mg Q15M PRN IM SEE LABEL COMMENTS; Start at 13:00 Lactated Ringer's 1,000 ml @ 30 mls/hr Q24H PRN IV SEE LABEL COMMENTS; Start at 00:45; Stop 11/09/16 at 12:05; Status DC Sodium Chloride 500 ml @ 30 mls/hr [id number] PRN IV SEE LABEL COMMENTS; Start at 00:45; Stop 11/09/16 at 12:05; Status DC Metoprolol Tartrate (Lopressor) 25 mg DAIRY PROCESSING EQUIPMENT OPERATOR PRN PO SEE LABEL COMMENTS; Start 11/09/16 at 00:45; Stop 11/12/16 at 00:44; Status DC Povidone Iodine (Betadine 5% Antisepsis Kit) 1 applic DAIRY PROCESSING EQUIPMENT OPERATOR PRN EACH NARE SEE LABEL COMMENTS; Start 11/09/16 at 00:45; Stop 11/12/16 at 00:44; Status DC Chlorhexidine Gluconate (Chlorhexidine 2% Cloth) 3 pack DAIRY PROCESSING EQUIPMENT OPERATOR PRN TOPICAL SEE LABEL COMMENTS; Start 11/09/16 at 00:45; Stop 11/09/16 at 12:05; Status DC Insulin Human Regular (NovoLIN R INJ) See Protocol Table ... DAIRY PROCESSING EQUIPMENT OPERATOR PRN SQ SEE PROTOCOL TABLE; Start 11/09/16 at 00:45; Stop 11/12/16 at 00:44; Status DC Potassium Chloride (KCl) 20 meq ONCE ONCE PO Last administered on 11/09/16t 11 :40; Start 11/09/16 at 11:00; Stop 11/09/16 at 11:01; Status DC Neomycin/ Polymyxin/ Bacitracin (Neosporin Oint) 1 applic DAILY TOPICAL Last administered on 01/02/17 09:00; Start 11/10/16 at 09:00 Lactulose (Lactulose Liq) 30 ml DAILY PO Last administered on 12/02/16 09:18; Start 11/10/16 at 09:00; Stop 12/08/16 at 09:52; Status DC Magnesium Hydroxide (Milk Of Magnesia Liq) 30 ml HS PO Last administered on 20:28; Start 11/10/16 at 21:00; Status Future hold Famotidine (Pepcid Inj) 20 mg STK-MED ONCE .ROUTE Last administered on 08:51; Start 11/10/16 at 08:51; Stop 11/10/16 at 08:52; Status DC Albuterol Sulfate (Albuterol Neb) 2.5 mg STK-MED ONCE .ROUTE Last administered on 11/10/16 08:55; Start 11/10/16 at 08:53; Stop 11/10/16 at 08:54; Status DC Gentamicin Sulfate (Gentamicin Inj) 240 mg STK-MED ONCE .ROUTE Last administered on 11/10/16 09:48; Start 11/10/16 at 09:02; Stop 11/10/16 at 09:03 ; Status DC Acetaminophen (Ofirmev Inj) 1,000 mg STK-MED ONCE IV ; Start 11/10/16 at 09:13; Stop 11/10/16 at 09:14; Status DC Lactated Ringer's 1,000 ml @ 100 mls/hr Q10H IV Last administered on 00:53; Start 11/10/16 at 13:00; Stop 11/11/16 at 11:56; Status DC Enoxaparin Sodium (Lovenox Inj) 30 mg Q12H SQ Last administered on 12/04/16 00 :03; Start 11/11/16 at 00:00; Stop 12/04/16 at 09:43; Status DC Cefazolin Sodium/ Dextrose 50 ml @ 100 mls/hr Q8H IV Last administered on 11/13 00:05; Start 11/10/16 at 16:00; Stop 11/13/16 at 08:29; Status DC Gentamicin Sulfate/Sodium Chloride 100 ml @ 200 mls/hr Q8H IV Last administered on 7/27/17at 10:00; Start 11/10/16 at 18:00; Stop 11/13/16 at 10:29 ; Status DC Acetaminophen/ Hydrocodone Bitart ([place] 10-325 Mg) 1 tab Q3H PRN PO PAIN 3<10 Last administered on 11/18/16 04:34; Start 11/10/16 at 11:45; Stop 11/18/16 at 16 :37; Status DC Calcium/Vitamin D (Oscal-D 250-125) 250 mg TID PO Last administered on 10:52; Start 11/10/16 at 13:00 Meperidine HCl (*DEMEROL INJ PERIprocedural ONLY) 25 mg STK-MED ONCE .ROUTE Last administered on 11/10/16 12:36; Start 11/10/16 at 12:36; Stop 11/10/16 at 12:37; Status DC Miscellaneous Information ALL NURSING DEPARTME... UNSCH PRN .XX SEE LABEL COMMENTS; Start 11/10/16 at 12:29; Stop 11/11/16 at 12:28; Status DC Midazolam HCl (Versed Inj) 2 mg STK-MED ONCE .ROUTE ; Start 11/10/16 at 12:48; Stop 11/10/16 at 12:49; Status DC Fentanyl Citrate (fentaNYL INJ) 250 mcg STK-MED ONCE .ROUTE ; Start 11/10/16 at 12:48; Stop 11/10/16 at 12:49; Status DC Morphine Sulfate (*morphine INJ PERIprocedure ONLY) 8 mg STK-MED ONCE .ROUTE Last administered on 11/10/16 14:36; Start 11/10/16 at 14:36; Stop 11/10/16 at 14:37; Status DC Bisacodyl (Dulcolax Ec) 10 mg ONCE ONCE PO Last administered on 11/11/16 10: 17; Start 11/11/16 at 07:00; Stop 11/11/16 at 07:04; Status DC Bisacodyl (Dulcolax Supp) 10 mg ONCE ONCE RECTAL Last administered on 10:17; Start 11/11/16 at 07:00; Stop 11/11/16 at 07:04; Status DC Sodium Chloride 250 ml @ 15 mls/hr ONCE ONCE IV Last administered on 11:19; Start 11/11/16 at 11:15; Stop 11/12/16 at 03:54; Status DC Furosemide (Lasix Inj) 20 mg ONCE ONCE IV ; Start 11/11/16 at 11:15; Stop 11/11 at 11:16; Status Cancel Furosemide (Lasix Inj) 20 mg ONCE ONCE IV Last administered on 11/12/16 11:18 ; Start 11/12/16 at 11:00; Stop 11/12/16 at 11:01; Status DC Albuterol/ Ipratropium (Duoneb Neb) 1 ampule Q4HR NEB PRN NEB wheezing; Start 11/12/16 at 13:15 Lactated Ringer's 1,000 ml @ 30 mls/hr Q24H PRN IV SEE LABEL COMMENTS; Start at 05:00; Stop 11/16/16 at 04:59; Status Cancel Sodium Chloride 500 ml @ 30 mls/hr [id number] PRN IV SEE LABEL COMMENTS; Start at 05:00; Stop 11/16/16 at 04:59; Status DC Metoprolol Tartrate (Lopressor) 25 mg DAIRY PROCESSING EQUIPMENT OPERATOR PRN PO SEE LABEL COMMENTS; Start 11/13/16 at 05:00; Stop 11/16/16 at 04:59; Status DC Povidone Iodine (Betadine 5% Antisepsis Kit) 1 applic DAIRY PROCESSING EQUIPMENT OPERATOR PRN EACH NARE SEE LABEL COMMENTS; Start 11/13/16 at 05:00; Stop 11/16/16 at 04:59; Status DC Chlorhexidine Gluconate (Chlorhexidine 2% Cloth) 3 pack DAIRY PROCESSING EQUIPMENT OPERATOR PRN TOPICAL SEE LABEL COMMENTS; Start 11/13/16 at 05:00; Stop 11/16/16 at 04:59; Status DC Lidocaine HCl (Xylocaine 2% Jelly) 30 applic STK-MED ONCE .ROUTE ; Start at 07:15; Stop 11/13/16 at 07:16; Status DC Mineral Oil (Muri-Lube Oil) 10 ml STK-MED ONCE .ROUTE ; Start 11/13/16 at 07:15 ; Stop 11/13/16 at 07:16; Status DC Gentamicin Sulfate (Gentamicin Inj) 240 mg STK-MED ONCE .ROUTE Last administered on 11/13/16 08:20; Start 11/13/16 at 07:15; Stop 11/13/16 at 07:16 ; Status DC Albuterol Sulfate (Albuterol Neb) 2.5 mg STK-MED ONCE .ROUTE ; Start 11/13/16 at 07:34; Stop 11/13/16 at 07:35; Status DC Dexamethasone Sodium Phosphate (Decadron Inj) 4 mg STK-MED ONCE .ROUTE ; Start 11/13/16 at 07:36; Stop 11/13/16 at 07:37; Status DC Famotidine (Pepcid Inj) 20 mg STK-MED ONCE .ROUTE ; Start 11/13/16 at 07:36; Stop 11/13/16 at 07:37; Status DC Albuterol/ Ipratropium (Duoneb Neb) 1 ampule STK-MED ONCE .ROUTE Last administered on 11/13/16 07:50; Start 11/13/16 at 07:47; Stop 11/13/16 at 07:48 ; Status DC Lactated Ringer's 1,000 ml @ 100 mls/hr Q10H IV Last administered on 12:14; Start 11/13/16 at 08:42; Stop 11/18/16 at 16:33; Status DC Cefazolin Sodium/ Dextrose 50 ml @ 100 mls/hr Q8H IV Last administered on 04:43; Start 11/13/16 at 12:00; Stop 11/20/16 at 11:59; Status DC Gentamicin Sulfate/Sodium Chloride 100 ml @ 200 mls/hr Q8H IV Last administered on 11/16/16 09:14; Start 11/13/16 at 18:00; Stop 11/16/16 at 17:59 ; Status DC Midazolam HCl (Versed Inj) 2 mg STK-MED ONCE .ROUTE ; Start 11/13/16 at 09:25; Stop 11/13/16 at 09:26; Status DC Fentanyl Citrate (fentaNYL INJ) 250 mcg STK-MED ONCE .ROUTE ; Start 11/13/16 at 09:25; Stop 11/13/16 at 09:26; Status DC Zolpidem Tartrate (Ambien) 5 mg HS PRN PO Insomnia Last administered on 22:24; Start 11/14/16 at 11:00 Trazodone HCl (Desyrel) 100 mg HS PO Last administered on 01/04/17 21:42; Start 11/14/16 at 21:00 Morphine Sulfate (Oramorph Sr) 15 mg Q12HR PO Last administered on 11/18/16 10: 00; Start 11/16/16 at 21:00; Stop 11/18/16 at 16:36; Status DC Morphine Sulfate (Oramorph Sr) 15 mg ONCE ONCE PO Last administered on 12:32; Start 11/16/16 at 10:15; Stop 11/16/16 at 10:24; Status DC Gabapentin (Neurontin) 600 mg TID PO Last administered on 01/05/17 10:51; Start 11/16/16 at 13:00 Sodium Chloride 1,000 ml @ 999 mls/hr BOLUS ONCE IV Last administered on 17:22; Start 11/18/16 at 16:45; Stop 11/18/16 at 17:45; Status DC Morphine Sulfate (Oramorph Sr) 30 mg Q12HR PO Last administered on 11/29/16 09 :24; Start 11/18/16 at 21:00; Stop 11/29/16 at 14:26; Status DC Morphine Sulfate (Morphine Inj) 6 mg Q4H PRN IV PUSH PAIN SCALE 5 TO 10 Last administered on 11/19/16 05:59; Start 11/18/16 at 16:45; Stop 11/20/16 at 00:46; Status DC Morphine Sulfate (Morphine Inj) 3 mg Q3H PRN IV PUSH PAIN SCALE 1 TO 4 Last administered on 11/19/16 16:36; Start 11/18/16 at 16:45; Stop 11/20/16 at 00:46; Status DC Sodium Chloride 1,000 ml @ 125 mls/hr Q8H IV Last administered on 11/19/16 16: 15; Start 11/19/16 at 00:15; Stop 11/19/16 at 19:21; Status DC Sodium Chloride 500 ml @ 500 mls/hr BOLUS ONCE IV Last administered on 00:15; Start 11/19/16 at 00:15; Stop 11/19/16 at 01:14; Status DC Nystatin (Mycostatin Powder) 1 applic Q12HR TOPICAL Last administered on 08:54; Start 11/19/16 at 21:00; Stop 11/28/16 at 13:46; Status DC Acetaminophen/ Hydrocodone Bitart ([place] 7.5-325 Mg) 1 tab Q4H PRN PO PAIN SCALE 1 TO 4; Start 11/20/16 at 00:45; Stop 11/28/16 at 13:46; Status DC Acetaminophen/ Hydrocodone Bitart ([place] 10-325 Mg) 1 tab Q4H PRN PO PAIN SCALE 3-5 Last administered on 12/23/16 08:58; Start 11/20/16 at 00:45 Hydromorphone HCl (Dilaudid Pf Inj) 1 mg Q4H PRN IV PUSH BREAKTHROUGH PAIN Last administered on 12/17/16 10:38; Start 11/20/16 at 00:45; Stop 12/18/16 at 10:47; Status DC Propranolol HCl (Inderal) 40 mg Q12HR PO Last administered on 12/08/16 08:01; Start 11/22/16 at 21:00; Stop 12/08/16 at 10:00; Status DC Lactated Ringer's 1,000 ml @ 30 mls/hr Q24H PRN IV SEE LABEL COMMENTS; Start at 02:45; Stop 11/27/16 at 02:44; Status DC Sodium Chloride 500 ml @ 30 mls/hr [id number] PRN IV SEE LABEL COMMENTS; Start 11/24/16 at 02:45; Stop 11/27/16 at 02:44; Status DC Povidone Iodine (Betadine 5% Antisepsis Kit) 1 applic DAIRY PROCESSING EQUIPMENT OPERATOR PRN EACH NARE SEE LABEL COMMENTS; Start 11/24/16 at 02:45; Stop 11/27/16 at 02:44; Status DC Chlorhexidine Gluconate (Chlorhexidine 2% Cloth) 3 pack DAIRY PROCESSING EQUIPMENT OPERATOR PRN TOPICAL SEE LABEL COMMENTS; Start 11/24/16 at 02:45; Stop 11/27/16 at 02:44; Status DC Insulin Human Regular (NovoLIN R INJ) See Protocol Table ... DAIRY PROCESSING EQUIPMENT OPERATOR PRN SQ SEE PROTOCOL TABLE; Start 11/24/16 at 02:45; Stop 11/27/16 at 02:44; Status DC Prochlorperazine Edisylate (Compazine Inj) 10 mg Q8H PRN IV PUSH NAUSEA/ VOMITING Last administered on 11/25/16 18:00; Start 11/25/16 at 16:15 Sodium Chloride 500 ml @ 500 mls/hr BOLUS ONCE IV Last administered on 18:06; Start 11/25/16 at 17:00; Stop 11/25/16 at 17:59; Status DC Gentamicin Sulfate (Gentamicin Inj) 240 mg STK-MED ONCE .ROUTE Last administered on 11/28/16 10:42; Start 11/28/16 at 07:18; Stop 11/28/16 at 07:19 ; Status DC Vancomycin HCl (Vancomycin Inj) 1,000 mg STK-MED ONCE .ROUTE Last administered on 12/09/16 15:25; Start 11/28/16 at 07:38; Stop 11/28/16 at 07:39; Status DC Cefazolin Sodium/ Dextrose 50 ml @ As Directed STK-MED ONCE .ROUTE Last administered on 12/09/16 15:20; Start 11/28/16 at 07:38; Stop 11/28/16 at 07:39 ; Status DC Sodium Chloride 250 ml @ As Directed STK-MED ONCE .ROUTE ; Start 11/28/16 at 07 :39; Stop 11/28/16 at 07:40; Status DC Fentanyl Citrate (fentaNYL INJ) 250 mcg STK-MED ONCE .ROUTE ; Start 11/28/16 at 10:15; Stop 11/28/16 at 10:16; Status DC Cefazolin Sodium (Ancef Inj) 1,000 mg STK-MED ONCE .ROUTE Last administered on 11/28/16 10:31; Start 11/28/16 at 10:23; Stop 11/28/16 at 10:24; Status DC Lactated Ringer's 1,000 ml @ 100 mls/hr Q10H IV ; Start 11/28/16 at 10:59; Stop 12/03/16 at 09:16; Status DC Cefazolin Sodium/ Dextrose 50 ml @ 100 mls/hr Q8H IV Last administered on 12/01 06:46; Start 11/28/16 at 15:00; Stop 12/01/16 at 14:59; Status DC Magnesium Hydroxide (Milk Of Clyde Liq) 30 ml Q12H PRN PO MILD - MODERATE CONSTIPATION Last administered on 12/26/16 10:08; Start 11/28/16 at 11:30 Sennosides (Senokot) 17.2 mg Q12H PRN PO MODERATE - SEVERE CONSTIPATION Last administered on 12/25/16 09:48; Start 11/28/16 at 11:30 Bisacodyl (Dulcolax Supp) 10 mg DAILY PRN RECTAL SEVERE CONSITIPATION Last administered on 12/11/16 12:30; Start 11/28/16 at 11:30 Albuterol Sulfate (*ALBUTEROL NEB PERIprocedure ONLY) 2.5 mg STK-MED ONCE NEB Last administered on 11/28/16 11:38; Start 11/28/16 at 11:38; Stop 11/28/16 at 11:39; Status DC Dexamethasone Sodium Phosphate (Decadron Inj) 4 mg STK-MED ONCE .ROUTE ; Start 11/28/16 at 11:51; Stop 11/28/16 at 11:52; Status DC Dexamethasone Sodium Phosphate (Decadron Inj) 4 mg NOW ONCE IV Last administered on 11/28/16 12:00; Start 11/28/16 at 12:00; Stop 11/28/16 at 12:01 ; Status DC Miscellaneous Information ALL NURSING DEPARTME... UNSCH PRN .XX SEE LABEL COMMENTS; Start 11/28/16 at 11:22; Stop 11/29/16 at 11:21; Status DC Morphine Sulfate (*morphine INJ PERIprocedure ONLY) 8 mg STK-MED ONCE .ROUTE Last administered on 11/28/16 12:01; Start 11/28/16 at 12:01; Stop 11/28/16 at 12:02; Status DC Acetaminophen/ Hydrocodone Bitart ([place] 10-325 Mg) 1.5 tab Q4H PRN PO pain 6- 10 Last administered on 12/23/16 17:35; Start 11/28/16 at 15:00; Stop 12/23/16 at 18:38; Status DC Nystatin (Mycostatin Cream) 1 applic Q6HR TOPICAL Last administered on 05:00; Start 11/28/16 at 14:00; Stop 12/16/16 at 13:46; Status DC Morphine Sulfate (Oramorph Sr) 30 mg Q8HR PO Last administered on 12/03/16 06: 09; Start 11/29/16 at 22:00; Stop 12/03/16 at 12:16; Status DC Cetirizine HCl (ZyrTEC) 10 mg HS PO Last administered on 12/07/16 20:03; Start 12/01/16 at 21:00; Stop 12/08/16 at 20:59; Status DC Fluticasone Propionate (Flonase Jerzy Spr) 2 spray DAILY EACH NARE Last administered on 12/15/16 08:54; Start 12/01/16 at 11:00; Stop 12/15/16 at 10:59 ; Status DC Folic Acid (Folate) 1 mg DAILY PO Last administered on 01/05/17 10:53; Start 12/03/16 at 09:00 Morphine Sulfate (Oramorph Sr) 30 mg Q8HR PO Last administered on 01/05/17 07: 42; Start 12/03/16 at 14:00 Lactobacillus Acidophilus (Lactinex) 1 tab TID PO Last administered on 08:10; Start 12/04/16 at 09:00; Stop 12/05/16 at 09:26; Status DC Enoxaparin Sodium (Lovenox Inj) 40 mg DAILY SQ Last administered on 01/05/17 10:51; Start 12/05/16 at 09:00 Al Hydrox/Mg Hydrox/Simethicone (Mag-Al Plus Susp Liq) 30 ml ONCE ONCE PO Last administered on 12/04/16 11:55; Start 12/04/16 at 11:45; Stop 12/04/16 at 11:50; Status DC Al Hydrox/Mg Hydrox/Simethicone (Mag-Al Plus Susp Liq) 30 ml Q6HR PRN PO HEARTBURN, INDIGESTION Last administered on 01/04/17 19:11; Start 12/04/16 at 18:00 Sucralfate (Carafate Liq) 1 gm QID PO Last administered on 12/16/16 13:41; Start 12/05/16 at 09:00; Stop 12/16/16 at 13:43; Status DC Lactobacillus Acidophilus (Lactinex) 1 tab BID PO Last administered on 09:36; Start 12/05/16 at 21:00; Stop 12/18/16 at 10:47; Status DC Polyethylene Glycol (Miralax) 17 gm DAILY PRN PO CONSTIPATION; Start 12/08/16 at 10:00; Stop 12/11/16 at 15:18; Status DC Propranolol HCl (Inderal) 20 mg Q12HR PO Last administered on 12/09/16 20:34; Start 12/08/16 at 21:00; Stop 12/10/16 at 07:34; Status DC Lactated Ringer's 1,000 ml @ 30 mls/hr Q24H PRN IV SEE LABEL COMMENTS; Start at 01:30; Stop 12/12/16 at 01:29; Status DC Sodium Chloride 500 ml @ 30 mls/hr [id number] PRN IV SEE LABEL COMMENTS; Start at 01:30; Stop 12/12/16 at 01:29; Status DC Povidone Iodine (Betadine 5% Antisepsis Kit) 1 applic DAIRY PROCESSING EQUIPMENT OPERATOR PRN EACH NARE SEE LABEL COMMENTS; Start 12/09/16 at 01:30; Stop 12/12/16 at 01:29; Status DC Chlorhexidine Gluconate (Chlorhexidine 2% Cloth) 3 pack DAIRY PROCESSING EQUIPMENT OPERATOR PRN TOPICAL SEE LABEL COMMENTS; Start 12/09/16 at 01:30; Stop 12/12/16 at 01:29; Status DC Insulin Human Regular (NovoLIN R INJ) See Protocol Table ... DAIRY PROCESSING EQUIPMENT OPERATOR PRN SQ SEE PROTOCOL TABLE; Start 12/09/16 at 01:30; Stop 12/12/16 at 01:29; Status DC Bupivacaine HCl/ Epinephrine Bitart (Sensorcaine-Epinephrine 0.25% Inj) 50 ml STK-MED ONCE .ROUTE ; Start 12/09/16 at 14:07; Stop 12/09/16 at 14:08; Status DC Mineral Oil (Muri-Lube Oil) 10 ml STK-MED ONCE .ROUTE ; Start 12/09/16 at 14:07 ; Stop 12/09/16 at 14:08; Status DC Gentamicin Sulfate (Gentamicin Inj) 240 mg STK-MED ONCE .ROUTE Last administered on 12/09/16 15:31; Start 12/09/16 at 14:07; Stop 12/09/16 at 14:08 ; Status DC Vancomycin HCl (Vancomycin Inj) 1,000 mg STK-MED ONCE .ROUTE ; Start 12/09/16 at 15:06; Stop 12/09/16 at 15:07; Status DC Cefazolin Sodium/ Dextrose 50 ml @ As Directed STK-MED ONCE .ROUTE ; Start 12/09 at 15:06; Stop 12/09/16 at 15:07; Status DC Lactated Ringer's 1,000 ml @ 100 mls/hr Q10H IV ; Start 12/09/16 at 15:57; Stop 12/16/16 at 13:45; Status DC Cefazolin Sodium/ Dextrose 50 ml @ 100 mls/hr Q8H IV Last administered on 12/16 13:42; Start 12/09/16 at 20:00; Stop 12/16/16 at 19:59; Status DC Gentamicin Sulfate/Sodium Chloride 100 ml @ 200 mls/hr Q8H IV Last administered on 12/12/16 12:25; Start 12/09/16 at 21:00; Stop 12/12/16 at 20:59 ; Status DC Morphine Sulfate (*morphine INJ PERIprocedure ONLY) 8 mg STK-MED ONCE .ROUTE Last administered on 12/09/16 16:32; Start 12/09/16 at 16:32; Stop 12/09/16 at 16:33; Status DC Fentanyl Citrate (fentaNYL INJ) 250 mcg STK-MED ONCE .ROUTE ; Start 12/09/16 at 16:33; Stop 12/09/16 at 16:34; Status DC Miscellaneous Information ALL NURSING DEPARTME... UNSCH PRN .XX SEE LABEL COMMENTS; Start 12/09/16 at 16:20; Stop 12/10/16 at 16:19; Status DC Morphine Sulfate (*morphine INJ PERIprocedure ONLY) 8 mg STK-MED ONCE .ROUTE Last administered on 12/09/16 17:01; Start 12/09/16 at 17:01; Stop 12/09/16 at 17:02; Status DC Propranolol HCl (Inderal) 10 mg Q12HR PO Last administered on 12/13/16 09:42; Start 12/10/16 at 09:00; Stop 12/13/16 at 10:32; Status DC Menthol/Methyl Salicylate (Aleks Daniels Oint) 1 applic UNSCH PRN TOPICAL arthritic pain Last administered on 12/12/16 17:51; Start 12/11/16 at 15:30 Propranolol HCl (Inderal) 20 mg Q12HR PO ; Start 12/13/16 at 21:00; Stop at 21:00; Status DC Propranolol HCl (Inderal) 10 mg Q12HR PO Last administered on 01/05/17 10:52; Start 12/13/16 at 21:00 Bacitracin (Baciguent Oint) 1 applic DAILY PRN TOPICAL WOUND VAC DRESSING CHANGE; Start 12/15/16 at 12:30 Sucralfate (Carafate Liq) 1 gm BID PO Last administered on 12/30/16 08:30; Start 12/16/16 at 21:00; Stop 12/30/16 at 20:59; Status DC Lidocaine HCl (Lidoderm 5% Patch.12 Hr) 1 patch DAILY T-DERMAL Last administered on 12/18/16 11:33; Start 12/18/16 at 10:00; Stop 12/19/16 at 19:35 ; Status DC Miscellaneous Information 1 Q24H T-DERMAL ; Start 12/18/16 at 21:00; Stop at 19:35; Status DC Lactobacillus Acidophilus (Lactinex) 1 tab TID PO Last administered on 10:52; Start 12/18/16 at 13:00 Lidocaine HCl (Lidoderm 5% Patch.12 Hr) 1 patch HS T-DERMAL Last administered on 01/03/17 20:55; Start 12/19/16 at 21:00 Miscellaneous Information 1 Q24H T-DERMAL Last administered on 12/24/16 09:00; Start 12/20/16 at 09:00 Propofol (Diprivan 200 Mg/20 ml Inj) 200 mg STK-MED ONCE IV ; Start 11/07/16 at 12:00; Stop 12/23/16 at 10:36; Status DC Ephedrine Sulfate (ePHEDrine/NS 25 MG/5 ML SYR) 50 mg STK-MED ONCE IV ; Start at 12:00; Stop 12/23/16 at 10:36; Status DC Neostigmine Methylsulfate (Prostigmin Inj) 3 mg STK-MED ONCE IV ; Start at 12:00; Stop 12/23/16 at 10:36; Status DC Phenylephrine HCl (Neosynephrine/ NS 1000 Mcg/10ml Syr) 1,000 mcg STK-MED ONCE IV ; Start 11/07/16 at 12:00; Stop 12/23/16 at 10:37; Status DC Ondansetron HCl (Zofran Inj) 4 mg STK-MED ONCE IV PUSH ; Start 11/07/16 at 12:00 ; Stop 12/23/16 at 10:37; Status DC Lactated Ringer's 1,000 ml @ As Directed STK-MED ONCE IV ; Start 11/07/16 at 12 :00; Stop 12/23/16 at 10:37; Status DC Parenteral Electrolytes 1,000 ml @ As Directed STK-MED ONCE IV ; Start at 12:00; Stop 12/23/16 at 10:37; Status DC Propofol (Diprivan 200 Mg/20 ml Inj) 400 mg STK-MED ONCE IV ; Start 11/10/16 at 12:00; Stop 12/23/16 at 12:04; Status DC Phenylephrine HCl (Neosynephrine/ NS 1000 Mcg/10ml Syr) 2,000 mcg STK-MED ONCE IV ; Start 11/10/16 at 12:00; Stop 12/23/16 at 12:04; Status DC Ondansetron HCl (Zofran Inj) 4 mg STK-MED ONCE IV PUSH ; Start 11/10/16 at 12:00 ; Stop 12/23/16 at 12:04; Status DC Lactated Ringer's 1,000 ml @ As Directed STK-MED ONCE IV ; Start 11/10/16 at 12 :00; Stop 12/23/16 at 12:04; Status DC Propofol (Diprivan 200 Mg/20 ml Inj) 200 mg STK-MED ONCE IV ; Start 11/13/16 at 12:00; Stop 12/23/16 at 12:38; Status DC Ephedrine Sulfate (ePHEDrine/NS 25 MG/5 ML SYR) 25 mg STK-MED ONCE IV ; Start at 12:00; Stop 12/23/16 at 12:38; Status DC Phenylephrine HCl (Neosynephrine/ NS 1000 Mcg/10ml Syr) 1,000 mcg STK-MED ONCE IV ; Start 11/13/16 at 12:00; Stop 12/23/16 at 12:38; Status DC Ondansetron HCl (Zofran Inj) 4 mg STK-MED ONCE IV PUSH ; Start 11/13/16 at 12:00 ; Stop 12/23/16 at 12:38; Status DC Lactated Ringer's 1,000 ml @ As Directed STK-MED ONCE IV ; Start 11/13/16 at 12 :00; Stop 12/23/16 at 12:38; Status DC Neostigmine Methylsulfate (Prostigmin Inj) 3 mg STK-MED ONCE IV ; Start at 12:00; Stop 12/23/16 at 12:38; Status DC Propofol (Diprivan 200 Mg/20 ml Inj) 200 mg STK-MED ONCE IV ; Start 11/28/16 at 12:00; Stop 12/23/16 at 12:50; Status DC Ephedrine Sulfate (ePHEDrine/NS 25 MG/5 ML SYR) 25 mg STK-MED ONCE IV ; Start at 12:00; Stop 12/23/16 at 12:50; Status DC Ondansetron HCl (Zofran Inj) 4 mg STK-MED ONCE IV PUSH ; Start 11/28/16 at 12:00 ; Stop 12/23/16 at 12:50; Status DC Propofol (Diprivan 200 Mg/20 ml Inj) 200 mg STK-MED ONCE IV ; Start 12/09/16 at 12:00; Stop 12/23/16 at 14:38; Status DC Ephedrine Sulfate (ePHEDrine/NS 25 MG/5 ML SYR) 50 mg STK-MED ONCE IV ; Start at 12:00; Stop 12/23/16 at 14:38; Status DC Ondansetron HCl (Zofran Inj) 4 mg STK-MED ONCE IV PUSH ; Start 12/09/16 at 12:00 ; Stop 12/23/16 at 14:38; Status DC Acetaminophen/ Hydrocodone Bitart ([place] 10-325 Mg) 2 tab Q4H PRN PO pain 6-10 Last administered on 01/05/17 10:52; Start 12/23/16 at 18:45 Vancomycin HCl 5000 mg/Sodium Chloride 3,000 ml @ 10 mls/hr Q24H PRN IRRIGATION DRESSING CHANGE Last administered on 01/03/17 18:54; Start 12/25/16 at 08:00 Diphenhydramine HCl (Benadryl) 12.5 mg Q4H PRN PO itching Last administered on 12/28/16 07:54; Start 12/25/16 at 16:45; Stop 12/28/16 at 13:48; Status DC Ferrous Sulfate (Ferrous Sulfate) 325 mg BID@12,17 PO Last administered on 01/05 10:52; Start 12/26/16 at 12:00 Ascorbic Acid (Vitamin C) 500 mg BID PO Last administered on 01/05/17 10:52; Start 12/26/16 at 09:00 Pharmacy Profile Note 0 ml @ 0 mls/hr UNSCH OTHER ; Start 12/26/16 at 14:45 Vancomycin HCl 1500 mg/Sodium Chloride 515 ml @ 257.5 mls/ hr Q12H IV Last administered on 12/26/16 20:17; Start 12/26/16 at 17:00; Stop 12/27/16 at 04:54; Status DC Miscellaneous Information SPECIFIC LAB TO BE LEANNA... ONCE ONCE .XX ; Start 12/28 at 04:45; Stop 12/28/16 at 04:46; Status Cancel Vancomycin HCl 1500 mg/Sodium Chloride 515 ml @ 257.5 mls/ hr Q12H IV Last administered on 12/29/16 20:50; Start 12/27/16 at 08:00; Stop 12/29/16 at 20:35 ; Status DC Miscellaneous Information SPECIFIC LAB TO BE LEANNA... ONCE ONCE .XX ; Start 12/28 at 07:45; Stop 12/28/16 at 07:46; Status DC Miscellaneous Information SPECIFIC LAB TO BE LEANNA... ONCE ONCE .XX Last administered on 12/29/16 20:45; Start 12/29/16 at 20:45; Stop 12/29/16 at 20:46 ; Status DC Diphenhydramine HCl (Benadryl) 50 mg Q4H PRN PO itching Last administered on 11:01; Start 12/28/16 at 16:45 Vancomycin HCl 1500 mg/Sodium Chloride 515 ml @ 257.5 mls/ hr Q12H IV Last administered on 01/03/17 08:51; Start 12/29/16 at 21:00; Stop 01/03/17 at 22:00 ; Status DC Miscellaneous Information SPECIFIC LAB TO BE DRAWN:VANCO TROUGH DATE TO BE DR... ONCE ONCE .XX Last administered on 12/31/16 08:45; Start 12/31/16 at 08 :45; Stop 12/31/16 at 08:46; Status DC Miscellaneous Information SPECIFIC LAB TO BE LEANNA... ONCE ONCE .XX ; Start 01/03 at 08:45; Stop 01/03/17 at 08:46; Status DC Fluticasone Propionate (Flonase Jerzy Spr) 1 spray BID NASAL Last administered on 01/04/17 09:00; Start 01/02/17 at 21:00 Miscellaneous Information SPECIFIC LAB TO BE DRAWN:VANCOMY... ONCE ONCE .XX Last administered on 01/03/17 20:45; Start 01/03/17 at 20:45; Stop 01/03/17 at 20:46; Status DC Vancomycin HCl 1500 mg/Sodium Chloride 515 ml @ 257.5 mls/ hr Q12H IV Last administered on 01/05/17 10:51; Start 01/03/17 at 22:00 Miscellaneous Information SPECIFIC LAB TO BE LEANNA... ONCE ONCE .XX ; Start 01/04 at 21:45; Stop 01/04/17 at 21:46; Status DC Miscellaneous Information SPECIFIC LAB TO BE LEANNA... ONCE ONCE .XX ; Start 01/05 at 21:45; Stop 01/05/17 at 21:46 A/P Problem List: (1) Fracture of tibia, left, open ICD Code: S82.202B - Unspecified fracture of shaft of left tibia, initial encounter for open fracture type I or II Status: Acute (2) Fracture of tibia, right, open ICD Code: S82.201B - Unspecified fracture of shaft of right tibia, initial encounter for open fracture type I or II Status: Acute (3) Hypotension ICD Code: I95.9 - Hypotension, unspecified Status: Acute (4) Right shoulder pain ICD Code: M25.511 - Pain in right shoulder Assessment and Plan 61-year-old male admitted secondary to bilateral leg trauma after car fell on his legs while he was working on. Open fractures were present bilaterally. Bilateral open tibia-fibula fractures Left tibial plateau fracture - Open fractures have been surgically repaired, right side has external fixation - Continue wound VAC left leg as per orthopedic surgery recommendations. Undergoing serial wound vac changes per ortho - plan for wound vac change Thursday or Thursday - left tibial plateau fracture treated nonoperatively - Pin care BID to right leg - NWB BLEs - Lortab dose when necessary, Oramorph 30mg every 8 hours. MRSA - wound culture 12/23 positive for MRSA - ID following, appreciate their assistance. Started on Vanco with weekly CBC with diff, CMP per ID. Next lab draw 01/10/17. Acute blood loss anemia JAMAR - Related to trauma vs post op blood loss - Status post transfusion of 2 units of packed red blood cells in 11/12/16. - on iron supplementation daily. Iron studies reviewed. - hemoglobin stable - monitor CBC as indicated Coronary artery disease with h/o previous CABG - Appears stable. Patient is asymptomatic. - Continue propranolol and statin - ASA 81mg daily - Clonidine PRN Hypertension - controlled - MARGIE inhibitor held due to hypotension. - Narcotics seem to have a depressive affect on this patient, however blood pressure has much improved after the patient was taken off IV morphine Diabetes mellitus type 2 - blood sugars well controlled - accuchecks discontinued Alcohol abuse Transaminitis, resolved - AST and ALT now within normal range. - Continue with daily thiamine and folic acid - Alcohol cessation recommended Tobacco abuse - Cessation recommended. Chronic essential tremor - Continue Propranolol at lower dose due to bradycardia with holding parameters, HR <55 Allergic rhinitis - Flonase Indigestion -Patient on Protonix and Mylanta. -Will at times. GI prophylaxis: PPI DVT prophylaxis: Lovenox sq Problem Qualifiers (1) Fracture of tibia, left, open: (2) Fracture of tibia, right, open: (3) Hypotension: (4) Right shoulder pain: Qualified Codes: M25.511 - Pain in right shoulder; G89.29 - Other chronic pain Samreen Olson MD Jan 05, 2017 11:15
[2017-01-05 12:00] VITALS: BP 115/70; PULSE 74; RESP 18; TEMP 97.8; O2SAT 96
[2017-01-05] MEDS: CALCIUM CARBONATE 500 MG CHEWABLE TAB CHEW SCH ×2 (15:00→21:00)
[2017-01-05 16:00] VITALS: BP 105/55; PULSE 63; RESP 17; TEMP 97.2; O2SAT 98
--- NOTE | 2017-01-05 18:07 | HHI.IDPN ---
Subjective Subjective Remarks is a 61 y/o CM with PMHx of DM,HTN, Hard of hearing, CAD, s/p CABG who was brought in as a trauma alert. Patient was apparently working on his car and the car apparently slipped off the block and the car pinned the patient against a wall. He sustained bilateral open tibia fibula fractures. He has undergone multiple irrigation debridement procedures last one being on 11/13/16. Patient has had no fevers but leucocytosis which fluctuates. Infection workup is pending but clinically does not behave like infection or sepsis. He denies any complaints. He has undergone multiple debridements. ID was consulted as last culture grew MRSA. I d/w he is concerned that bone is exposed and there is deep infection. Overnight events reviewed with RN. No fevers No rash No diarrhea On Vanco irrigation in wound vac. Antibiotics Vanco IV Lines Line sites with no e.o infection Past Medical History reviewed Allergies: Coded Allergies: No Known Allergies (Unverified , 11/07/16) Objective . Vital Signs Date Time Temp Pulse Resp B/P (MAP) Pulse Ox O2 Delivery O2 Flow Rate FiO2 01/05/17 16:00 97.2 63 17 105/55 (72) 98 01/05/17 16:00 18 01/05/17 12:00 97.8 74 18 115/70 (85) 96 01/05/17 11:52 18 01/05/17 08:00 97.4 71 17 109/64 (79) 96 01/04/17 20:55 97.2 73 18 126/70 (88) 98 01/05/17 01/05/17 01/06/17 15:00 23:00 07:00 Intake Total 700 ml Output Total 500 ml Balance 200 ml Intake Oral 700 ml Drainage Total 500 ml # Voids 4 Imaging Last Impressions Ankle X-Ray 12/17/16 0000 Signed Impressions: Service Date/Time: Saturday, December 17, 2016 10:13 - CONCLUSION: Intramedullary mariano in tibia. Severely comminuted fibular fracture. Arvind Flores MD FACR Gall Bladder Ultrasound 12/05/16 0000 Signed Impressions: Service Date/Time: Monday, December 05, 2016 08:38 - CONCLUSION: Unremarkable exam. Gallbladder is within normal limits with no evidence of cholelithiasis. Ronald Rao MD Abdomen X-Ray 12/04/16 0000 Signed Impressions: Service Date/Time: November 10:42 - CONCLUSION: Unremarkable bowel gas pattern. Ronald Rao MD Knee X-Ray 11/25/16 0000 Signed Impressions: Service Date/Time: Friday, November 25, 2016 06:44 - CONCLUSION: Post surgical changes are identified. Mumtaz Cornelius MD Tibia/Fibula X-Ray 11/24/16 0000 Signed Impressions: Service Date/Time: Thursday, November 24, 2016 10:06 - CONCLUSION: 1. Mildly displaced lateral tibial plateau fracture which is not clearly evident on the previous studies. 2. Otherwise stable left tibia status post ORIF. 3. Wound VAC remains in place. Dex Wild MD Chest X-Ray 11/20/16 0000 Signed Impressions: Service Date/Time: November 17:08 - CONCLUSION: 1. No acute abnormality or significant interval change. Sukhi Stevens MD Pelvis X-Ray 11/07/16 1355 Signed Impressions: Service Date/Time: Monday, November 07, 2016 13:34 - CONCLUSION: No acute disease. Behzad Finch Jr., MD Physical Exam GENERAL: This is a well-nourished, well-developed patient, in no apparent distress. SKIN: No rashes, ecchymoses or lesions. Cool and dry. HEAD: Atraumatic. Normocephalic. No temporal or scalp tenderness. EYES: Pupils equal round and reactive. Extraocular motions intact. No scleral icterus. No injection or drainage. ENT: Nose without bleeding, purulent drainage or septal hematoma. Throat without erythema, tonsillar hypertrophy or exudate. Uvula midline. Airway patent. NECK: Trachea midline. Supple, nontender, no meningeal signs. CARDIOVASCULAR: Regular rate and rhythm without murmurs, gallops, or rubs. RESPIRATORY: Clear to auscultation. Breath sounds equal bilaterally. No wheezes , rales, or rhonchi. GASTROINTESTINAL: Abdomen soft, non-tender, nondistended. MUSCULOSKELETAL: Left LE wound vac in place with vanco irrigation. Right leg with external fixator. NEUROLOGICAL: Awake and alert.Grossly non focal Psych: cooperative IV line sites with no e.o infection. Assessment & Plan Remarks MRSA in wound. Deep infection ? Osteomyelitis per dw Bilateral tibia fibular fractures s/p I&D. External fixator in right leg. wound vac in left leg. Recs Continue Vanco IV (target 15-20) plan on 6 weeks from start of Vanco IV tentatively. Weekly CBC with diff, CMP, to be followed by Hepas team. Vanco managed by pharmacy per targets above. d/w expect additional stay of at least 2-3 weeks for Vanco irrigation. D.w about communication. Will follow prn. Please call sooner if any change in clinical condition or questions or concerns. Lauren Reyez MD Jan 05, 2017 18:07
[2017-01-05 20:55] VITALS: BP 126/67; PULSE 68; RESP 18; TEMP 97.1; O2SAT 98
[2017-01-05] MEDS: LIDOCAINE HCL 5% PATCH T-DERMAL SCH (21:00)
[2017-01-05] MEDS: traZODone HCL 100 MG TAB PO SCH (21:06)
[2017-01-05] MEDS: MAGNESIUM HYDROXIDE SUSP 30 ML CUP PO SCH (21:07)
[2017-01-05] MEDS: PRAVASTATIN SOD 80 MG TAB PO SCH (21:07)
[2017-01-05] MEDS ORDERED: PHARMACY ORDERED LAB ONE (21:45)
[2017-01-06] MEDS: ACETAMINOPHEN/HYDROcodone 325 MG/10 MG TAB PO PRN ×4 (02:00→16:21)
[2017-01-06] MEDS: MORPHINE SULFATE 30 MG CONTROLLED RELEASE TAB PO SCH ×3 (05:48→22:30)
--- NOTE | 2017-01-06 07:31 | PD.ORT.PN ---
Subjective Subjective Remarks s/p left tibia IMN and right tibia ORIF with exfix s/p left tibia soleus flap s/p left tibial plateau fracture doing well. pain controlled. ambulating with wheelchair. cultures yesterday came back positive or MRSA from wound on leg Objective Vitals Vital Signs Date Time Temp Pulse Resp B/P (MAP) Pulse Ox O2 Delivery O2 Flow Rate FiO2 01/05/17 20:55 97.1 68 18 126/67 (86) 98 01/05/17 18:16 18 01/05/17 16:00 97.2 63 17 105/55 (72) 98 01/05/17 16:00 18 01/05/17 12:00 97.8 74 18 115/70 (85) 96 01/05/17 08:00 97.4 71 17 109/64 (79) 96 I/O 01/05/17 01/05/17 01/05/17 01/06/17 01/06/17 01/06/17 07:00 15:00 23:00 07:00 15:00 23:00 Intake Total 480 ml 700 ml 360 ml 480 ml Output Total 1100 ml 500 ml 525 ml 1000 ml Balance -620 ml 200 ml -165 ml -520 ml Intake Oral 480 ml 700 ml 360 ml 480 ml Output Urine Total 1100 ml 400 ml 800 ml Drainage Total 500 ml 125 ml 200 ml # Voids 4 # Bowel Movements 0 0 0 Result Diagram: 01/03/17 0800 01/03/17 0800 Imaging Last 24 hours Impressions Pelvis X-Ray 11/07/16 1355 Signed Impressions: Service Date/Time: Monday, November 07, 2016 13:34 - CONCLUSION: No acute disease. Behzad Finch Jr., MD Chest X-Ray 11/07/16 9703 Signed Impressions: Service Date/Time: Monday, November 07, 2016 13:34 - CONCLUSION: No acute disease. Jac Gonzales MD Objective Remarks RLE: Dressings clean and dry. intact. with full sensation and motor function. + exfix. pin sites--first metatarsal pin is loose, other pins appear to be clean and dry LLE: Wound VAC intact. Good seal. no sensation over medial foot. slight stiffness with dorsiflexion. vac removed and wound visualized. healing well. clean. +granulation tissue. tendon exposed on anterior tibia Assessment & Plan Assessment and Plan 1) Right Open Tibia Fracture s/p exfix revision with ORIF 2) Left Open Tibia Fracture s/p Soleus muscle flap with IMN and removal of exfix 3) left tibia plateau fracture treated nonoperatively 4) s/p vac change with collagen grafting 01/06/17 -NWB BLE -pin care BID right leg -veraflow vac changed on left leg -vac settings: -soak time: 3min of 10 CCs -suction: 15min @ 100mmHg -maintain vac at all times -will plan on vac change Thu or thursday Jef Steve Jan 06, 2017 07:31
[2017-01-06 08:29] VITALS: BP 121/68; PULSE 66; RESP 18; TEMP 96.2; O2SAT 99
[2017-01-06] MEDS: NEOMYCIN/POLYMYXIN/BACITRACIN OINT 15 GM TUBE TOPICAL SCH (09:00)
[2017-01-06] MEDS: FLUTICASONE PROPIONATE 50 MCG/ACT 16 GM NASAL SPRAY NASAL SCH ×2 (09:00→20:20)
[2017-01-06] MEDS: DOCUSATE SODIUM 50 MG/SENNA 8.6 MG TAB PO SCH ×2 (09:00→20:19)
[2017-01-06] MEDS: REMOVE OLD LIDOCAINE PATCH T-DERMAL SCH (09:00)
[2017-01-06] MEDS: ASCORBIC ACID 500 MG TAB PO SCH ×2 (09:01→20:19)
[2017-01-06] MEDS: PANTOPRAZOLE SOD 40 MG DELAYED RELEASE TAB PO SCH (09:01)
[2017-01-06] MEDS: GABAPENTIN 300 MG CAP PO SCH ×3 (09:01→16:19)
[2017-01-06] MEDS: ASPIRIN 81 MG CHEW TAB CHEW SCH (09:01)
[2017-01-06] MEDS: THIAMINE HCL 100 MG TAB PO SCH (09:02)
[2017-01-06] MEDS: FOLIC ACID 1 MG TAB PO SCH (09:02)
[2017-01-06] MEDS: ENOXAPARIN SODIUM 40 MG/0.4 ML SYRINGE SQ SCH (09:02)
[2017-01-06] MEDS: CALCIUM CARBONATE 500 MG CHEWABLE TAB CHEW SCH ×2 (09:02→20:19)
[2017-01-06] MEDS: CALCIUM/VITAMIN D 250 MG/125 U TAB PO SCH ×3 (09:02→16:19)
[2017-01-06] MEDS: LACTOBACILLUS ACIDOPHILUS TAB PO SCH ×3 (09:02→16:19)
[2017-01-06] MEDS: PROPRANOLOL HCL 10 MG TAB PO SCH ×2 (09:02→20:20)
[2017-01-06] MEDS: SODIUM CHLORIDE 0.9% FLUSH 10 ML FLUSH IV FLUSH SCH ×2 (09:14→20:20)
[2017-01-06] MEDS: VANCOMYCIN 1,500 MG/NS 500 ML IV SCH ×4 (11:24→20:20)
--- NOTE | 2017-01-06 11:26 | HHI.PR ---
Subjective Remarks Follow-up for infection Patient stated that [facility] has not worked for him. He stated that he wants some blue liquid medication that he was given prior for his indigestion. Otherwise he has no other complaints. He remains afebrile. Dealt with patient's nurse. Objective Vitals Vital Signs Date Time Temp Pulse Resp B/P (MAP) Pulse Ox O2 Delivery O2 Flow Rate FiO2 01/06/17 08:29 96.2 66 18 121/68 (85) 99 01/05/17 20:55 97.1 68 18 126/67 (86) 98 01/05/17 18:16 18 01/05/17 16:00 97.2 63 17 105/55 (72) 98 01/05/17 16:00 18 01/05/17 12:00 97.8 74 18 115/70 (85) 96 I/O 01/05/17 01/05/17 01/05/17 01/06/17 01/06/17 01/06/17 07:00 15:00 23:00 07:00 15:00 23:00 Intake Total 480 ml 700 ml 360 ml 480 ml Output Total 1100 ml 500 ml 525 ml 1000 ml Balance -620 ml 200 ml -165 ml -520 ml Intake Oral 480 ml 700 ml 360 ml 480 ml Output Urine Total 1100 ml 400 ml 800 ml Drainage Total 500 ml 125 ml 200 ml # Voids 4 # Bowel Movements 0 0 0 Result Diagram: 01/03/17 0800 01/03/17 0800 Objective Remarks GENERAL: Pt laying in his bed in no distress. CARDIOVASCULAR: Regular rate and rhythm without murmurs, gallops, or rubs. RESPIRATORY: Breath sounds equal bilaterally. No accessory muscle use. GASTROINTESTINAL: Abdomen soft, nondistended. Left lower quadrant tenderness elicited. MUSCULOSKELETAL: No cyanosis, or edema. Right leg ORIF. No tremor noted. Right with external fixator placed no erythema swelling or discharge noted. Procedures 1.s/p I&D with ex fix application bilateral tibias s/p wound vac application left tibia 2.With the assistance of RN, under sterile technique the avulsed skin of the right middle finger was clipped. No bleeding noted. Patient gave consent 3.Open reduction internal fixation of right distal tibia and fibula fractures Nonoperative treatment left tibial plateau fracture Irrigation and debridement of left tibia shaft fracture, removal external fixation, soleus muscle rotational flap, intramedullary nail fixation left tibia , application of wound VAC dressing 4.11/13 Irrigation and debridement of left tibia, application wound VAC dressing 5. 11/28 Irrigation and debridement of left open tibia fracture with application of wound VAC dressing 6. 12/01 wound vac change at the bedside 7. 12/05 wound vac change at the bedside 8. 12/08 wound vac change at the bedside 9. 12/09 I&D left tibia, application of wound VAC dressing and application of AlloMax allograft dermal matrix Medications and IVs Current Medications Cefazolin Sodium/ Dextrose 50 ml @ As Directed STK-MED ONCE .ROUTE Last administered on 11/13/16 08:09; Start 11/07/16 at 13:58; Stop 11/07/16 at 13:59 ; Status DC Diphtheria/ Tetanus/Acell Pertussis (Boostrix Inj) 0.5 ml STK-MED ONCE IM ; Start 11/07/16 at 13:58; Stop 11/07/16 at 13:59; Status DC Morphine Sulfate (Morphine Inj) 8 mg STK-MED ONCE .ROUTE ; Start 11/07/16 at 14: 01; Stop 11/07/16 at 14:02; Status DC Hydromorphone HCl (Dilaudid Pf Inj) 1 mg STK-MED ONCE .ROUTE Last administered on 11/07/16 19:15; Start 11/07/16 at 14:05; Stop 11/07/16 at 14:06; Status DC Lactated Ringer's 1,000 ml @ 100 mls/hr Q10H IV ; Start 11/07/16 at 14:22; Stop 11/07/16 at 19:02; Status DC Sodium Chloride (NS Flush) 2 ml UNSCH PRN IV FLUSH FLUSH AFTER USING IV ACCESS Last administered on 12/11/16 11:31; Start 11/07/16 at 14:30 Sodium Chloride (NS Flush) 2 ml BID IV FLUSH Last administered on 01/06/17 09: 14; Start 11/07/16 at 21:00 Ondansetron HCl (Zofran Inj) 4 mg Q6H PRN IV NAUSEA OR VOMITING Last administered on 12/04/16 06:13; Start 11/07/16 at 14:30 Pantoprazole Sodium (Protonix Inj) 40 mg Q24H IV Last administered on t 20:00; Start 11/07/16 at 17:00; Stop 11/08/16 at 08:09; Status DC Docusate Sodium (Colace) 100 mg BID PO ; Start 11/07/16 at 21:00; Stop 11/08/16 at 13:04; Status DC Cefazolin Sodium 1000 mg/Sodium Chloride 100 ml @ 200 mls/hr Q8H IV ; Start at 22:00; Stop 11/07/16 at 22:00; Status DC Miscellaneous Information (Post-op Orders (for Pharmacy)) STAT ONCE XX ; Start 11/07/16 at 14:30; Stop 11/07/16 at 15:39; Status DC Oxycodone/ Acetaminophen (Percocet 10-325 Mg) 1 tab Q4H PRN PO 3-5; Start 11/07 at 14:30; Stop 11/07/16 at 19:03; Status DC Hydromorphone HCl (Dilaudid Pf Inj) 1 mg Q2H PRN IV Pain 6-10; Start 11/07/16 at 14:30; Stop 11/07/16 at 19:11; Status DC Naloxone HCl (Narcan Inj) 0.4 mg UNSCH PRN IV SEE LABEL COMMENTS; Start at 14:30 Gentamicin Sulfate (Gentamicin Inj) 80 mg Q8H IM ; Start 11/07/16 at 14:30; Stop 11/07/16 at 15:37; Status DC Hydromorphone HCl (Dilaudid Pf Inj) 0.5 mg [employer] DOSING PRN IV PUSH pain; Start 11/07/16 at 14:45; Stop 11/07/16 at 19:11; Status DC Gentamicin Sulfate/Sodium Chloride 100 ml @ 200 mls/hr Q8H IV ; Start 11/07/16 at 17:00; Status Cancel Miscellaneous Information (Post-op Orders (for Pharmacy)) UNSCH X1 XX ; Start 11/07/16 at 15:45; Stop 11/08/16 at 06:00; Status DC Cefazolin Sodium (Ancef Inj) 1,000 mg STK-MED ONCE .ROUTE Last administered on 11/07/16 16:26; Start 11/07/16 at 15:48; Stop 11/07/16 at 15:49; Status DC Gentamicin Sulfate (Gentamicin Inj) 80 mg STK-MED ONCE .ROUTE Last administered on 11/07/16 16:26; Start 11/07/16 at 15:49; Stop 11/07/16 at 15:50 ; Status DC Acetaminophen (Ofirmev Inj) 1,000 mg STK-MED ONCE IV ; Start 11/07/16 at 15:56; Stop 11/07/16 at 15:57; Status DC Midazolam HCl (Versed Inj) 2 mg STK-MED ONCE .ROUTE ; Start 11/07/16 at 15:56; Stop 11/07/16 at 15:57; Status DC Famotidine (Pepcid Inj) 20 mg STK-MED ONCE .ROUTE ; Start 11/07/16 at 15:56; Stop 11/07/16 at 15:57; Status DC Gentamicin Sulfate (Gentamicin Inj) 240 mg STK-MED ONCE IRRIGATION Last administered on 11/07/16 16:26; Start 11/07/16 at 16:26; Stop 11/07/16 at 16:42 ; Status DC Fentanyl Citrate (fentaNYL INJ) 250 mcg STK-MED ONCE .ROUTE ; Start 11/07/16 at 17:03; Stop 11/07/16 at 17:04; Status DC Gentamicin Sulfate (Gentamicin Inj) 240 mg STK-MED ONCE .ROUTE Last administered on 11/07/16 16:26; Start 11/07/16 at 17:10; Stop 11/07/16 at 17:11 ; Status DC Lactated Ringer's 1,000 ml @ 100 mls/hr Q10H IV Last administered on 07:51; Start 11/07/16 at 18:00; Stop 11/08/16 at 12:46; Status DC Enoxaparin Sodium (Lovenox Inj) 30 mg Q12H SQ ; Start 11/08/16 at 17:00; Stop at 11:48; Status DC Cefazolin Sodium/ Dextrose 50 ml @ 100 mls/hr Q8H IV Last administered on 11/10 08:16; Start 11/08/16 at 00:00; Stop 11/10/16 at 12:47; Status DC Gentamicin Sulfate/Sodium Chloride 100 ml @ 200 mls/hr Q8H IV Last administered on 11/10/16 16:30; Start 11/08/16 at 00:00; Stop 11/10/16 at 16:29 ; Status DC Acetaminophen/ Hydrocodone Bitart ([place] 10-325 Mg) 1 tab Q3H PRN PO PAIN 3<10 Last administered on 11/08/16 10:36; Start 11/07/16 at 18:00; Stop 11/08/16 at 13:04; Status DC Morphine Sulfate (Morphine Inj) 4 mg Q3H PRN IV PUSH Break thru Pain Last administered on 11/08/16 07:50; Start 11/07/16 at 18:00; Stop 11/08/16 at 12:21 ; Status DC Ketorolac Tromethamine (Toradol Inj) 30 mg Q12H IVP Last administered on 05:32; Start 11/07/16 at 18:00; Stop 11/10/16 at 06:01; Status DC Bacitracin (Baciguent Oint) 15 applic [facility]-MED ONCE .ROUTE Last administered on 11/07/16 18:09; Start 11/07/16 at 18:09; Stop 11/07/16 at 18:10; Status DC Miscellaneous Information ALL NURSING DEPARTME... UNSCH PRN .XX SEE LABEL COMMENTS; Start 11/07/16 at 18:33; Stop 11/08/16 at 18:32; Status DC Acetaminophen (Tylenol) 650 mg Q4H PRN PO Temp > 100.4, pain 1-2; Start at 08:15 Magnesium Hydroxide (Milk Of Magnesia Liq) 30 ml DAILY PRN PO for Severe Constipation Last administered on 11/09/16 20:15; Start 11/08/16 at 08:15; Stop 11/10/16 at 09:00; Status DC Calcium Carbonate (Tums Chew) 1,000 mg TID PRN CHEW DYSPEPSIA Last administered on 01/04/17 16:36; Start 11/08/16 at 08:15 Dextrose (D50w (Vial) Inj) 50 ml UNSCH PRN IV HYPOGLYCEMIA-SEE COMMENTS; Start 11/08/16 at 08:15; Stop 12/03/16 at 09:16; Status DC Glucagon (Glucagon Inj) 1 mg UNSCH PRN OTHER HYPOGLYCEMIA-SEE COMMENTS; Start 11/08/16 at 08:15; Stop 12/03/16 at 09:16; Status DC Insulin Aspart (NovoLOG SUPPLEMENTAL SCALE) 1 ACHS SLIDING SCALE SQ Last administered on 12/01/16 13:21; Start 11/08/16 at 11:00; Stop 12/03/16 at 09:16 ; Status DC Enalaprilat (Vasotec Inj) 1.25 mg Q6H PRN IV SBP> OR = 180, DBP> OR = 100; Start 11/08/16 at 08:15 Clonidine (Catapres) 0.1 mg Q6H PRN PO SBP> OR = 180, DBP> OR = 100; Start at 08:15 Gabapentin (Neurontin) 400 mg TID PO Last administered on 11/16/16 09:10; Start 11/08/16 at 13:00; Stop 11/16/16 at 11:46; Status DC Morphine Sulfate (Morphine Inj) 6 mg Q3H PRN IV PUSH PAIN 6-10 Last administered on 11/17/16 15:09; Start 11/08/16 at 15:00; Stop 11/18/16 at 16:37 ; Status DC Aspirin (Aspirin Chew) 81 mg DAILY CHEW Last administered on 01/06/17 09:01; Start 11/08/16 at 12:45 Ferrous Sulfate (Ferrous Sulfate) 325 mg DAILY PO Last administered on 08:11; Start 11/08/16 at 12:45; Stop 12/05/16 at 09:25; Status DC Lisinopril (Prinivil) 25 mg DAILY PO Last administered on 11/18/16 09:59; Start 11/08/16 at 12:45; Status Future Hold Nitroglycerin (Nitrostat Sl) 0.4 mg Q6HR PRN SL CHEST PAIN; Start 11/08/16 at 12:45 Pantoprazole Sodium (Protonix) 40 mg DAILY PO Last administered on 01/06/17 09 :01; Start 11/08/16 at 12:45 Pravastatin Sodium (Pravachol) 80 mg HS PO Last administered on 01/05/17 21:07 ; Start 11/08/16 at 21:00 Propranolol HCl (Inderal) 80 mg Q12HR PO Last administered on 11/18/16 10:01; Start 11/08/16 at 21:00; Stop 11/22/16 at 12:49; Status DC Miscellaneous (Pill Splitter) 1 ea UNSCH PRN OTHER SEE LABEL COMMENTS; Start at 12:45 Senna/Docusate Sodium (Elke-Colace) 1 tab BID PO Last administered on 21:06; Start 11/08/16 at 12:45; Status Future hold Lactulose (Lactulose Liq) 30 ml DAILY PRN PO No BM in 2 days; Start 11/08/16 at 12:45; Stop 11/10/16 at 07:47; Status DC Acetaminophen/ Hydrocodone Bitart ([place] 10-325 Mg) 1.5 tab Q3H PRN PO PAIN 3- 10 Last administered on 11/09/16 23:46; Start 11/08/16 at 15:00; Stop 11/10/16 at 12:45; Status DC Folic Acid (Folate) 1 mg DAILY PO Last administered on 11/12/16 09:14; Start 11/09/16 at 09:00; Stop 11/14/16 at 08:59; Status DC Thiamine HCl (Vitamin B1) 100 mg DAILY PO Last administered on 01/06/17 09:02 ; Start 11/09/16 at 09:00 Multivitamins/ Minerals Therapeutic (Theragran M Tab) 1 tab DAILY PO Last administered on 11/12/16 09:13; Start 11/09/16 at 09:00; Stop 11/14/16 at 08:59 ; Status DC Flumazenil (Romazicon Inj) 0.2 mg Q1M PRN IV PUSH SEE LABEL COMMENTS; Start at 13:00 Lorazepam (Ativan) 1 mg Q4H PRN PO CIWA 8 - 10; Start 11/08/16 at 13:00; Stop 11/26/16 at 16:05; Status DC Lorazepam (Ativan Inj) 1 mg Q4H PRN IV PUSH CIWA 8 - 10; Start 11/08/16 at 13: 00; Stop 11/26/16 at 16:05; Status DC Lorazepam (Ativan) 2 mg Q2H PRN PO CIWA 11-14; Start 11/08/16 at 13:00; Stop at 16:05; Status DC Lorazepam (Ativan Inj) 2 mg Q2H PRN IV PUSH CIWA 11-14; Start 11/08/16 at 13:00 ; Stop 11/26/16 at 16:05; Status DC Lorazepam (Ativan Inj) 2 mg Q1H PRN IV PUSH CIWA 15-20; Start 11/08/16 at 13:00 ; Stop 11/26/16 at 16:05; Status DC Lorazepam (Ativan Inj) 2 mg Q15M PRN IV PUSH CIWA > 20; Start 11/08/16 at 13:00 ; Stop 11/26/16 at 16:05; Status DC Haloperidol Lactate (Haldol Inj) 2 mg Q15M PRN IM SEE LABEL COMMENTS; Start at 13:00 Lactated Ringer's 1,000 ml @ 30 mls/hr Q24H PRN IV SEE LABEL COMMENTS; Start at 00:45; Stop 11/09/16 at 12:05; Status DC Sodium Chloride 500 ml @ 30 mls/hr [id number] PRN IV SEE LABEL COMMENTS; Start at 00:45; Stop 11/09/16 at 12:05; Status DC Metoprolol Tartrate (Lopressor) 25 mg DREDGE PIPEMAN PRN PO SEE LABEL COMMENTS; Start 11/09/16 at 00:45; Stop 11/12/16 at 00:44; Status DC Povidone Iodine (Betadine 5% Antisepsis Kit) 1 applic DREDGE PIPEMAN PRN EACH NARE SEE LABEL COMMENTS; Start 11/09/16 at 00:45; Stop 11/12/16 at 00:44; Status DC Chlorhexidine Gluconate (Chlorhexidine 2% Cloth) 3 pack DREDGE PIPEMAN PRN TOPICAL SEE LABEL COMMENTS; Start 11/09/16 at 00:45; Stop 11/09/16 at 12:05; Status DC Insulin Human Regular (NovoLIN R INJ) See Protocol Table ... DREDGE PIPEMAN PRN SQ SEE PROTOCOL TABLE; Start 11/09/16 at 00:45; Stop 11/12/16 at 00:44; Status DC Potassium Chloride (KCl) 20 meq ONCE ONCE PO Last administered on 11/09/16t 11 :40; Start 11/09/16 at 11:00; Stop 11/09/16 at 11:01; Status DC Neomycin/ Polymyxin/ Bacitracin (Neosporin Oint) 1 applic DAILY TOPICAL Last administered on 01/02/17 09:00; Start 11/10/16 at 09:00 Lactulose (Lactulose Liq) 30 ml DAILY PO Last administered on 12/02/16 09:18; Start 11/10/16 at 09:00; Stop 12/08/16 at 09:52; Status DC Magnesium Hydroxide (Milk Of Magnesia Liq) 30 ml HS PO Last administered on 21:07; Start 11/10/16 at 21:00; Status Future hold Famotidine (Pepcid Inj) 20 mg STK-MED ONCE .ROUTE Last administered on 08:51; Start 11/10/16 at 08:51; Stop 11/10/16 at 08:52; Status DC Albuterol Sulfate (Albuterol Neb) 2.5 mg STK-MED ONCE .ROUTE Last administered on 11/10/16 08:55; Start 11/10/16 at 08:53; Stop 11/10/16 at 08:54; Status DC Gentamicin Sulfate (Gentamicin Inj) 240 mg STK-MED ONCE .ROUTE Last administered on 11/10/16 09:48; Start 11/10/16 at 09:02; Stop 11/10/16 at 09:03 ; Status DC Acetaminophen (Ofirmev Inj) 1,000 mg STK-MED ONCE IV ; Start 11/10/16 at 09:13; Stop 11/10/16 at 09:14; Status DC Lactated Ringer's 1,000 ml @ 100 mls/hr Q10H IV Last administered on 00:53; Start 11/10/16 at 13:00; Stop 11/11/16 at 11:56; Status DC Enoxaparin Sodium (Lovenox Inj) 30 mg Q12H SQ Last administered on 12/04/16 00 :03; Start 11/11/16 at 00:00; Stop 12/04/16 at 09:43; Status DC Cefazolin Sodium/ Dextrose 50 ml @ 100 mls/hr Q8H IV Last administered on 11/13 00:05; Start 11/10/16 at 16:00; Stop 11/13/16 at 08:29; Status DC Gentamicin Sulfate/Sodium Chloride 100 ml @ 200 mls/hr Q8H IV Last administered on 11/13/16 10:00; Start 11/10/16 at 18:00; Stop 11/13/16 at 10:29 ; Status DC Acetaminophen/ Hydrocodone Bitart ([place] 10-325 Mg) 1 tab Q3H PRN PO PAIN 3<10 Last administered on 11/18/16 04:34; Start 11/10/16 at 11:45; Stop 11/18/16 at 16 :37; Status DC Calcium/Vitamin D (Oscal-D 250-125) 250 mg TID PO Last administered on 09:02; Start 11/10/16 at 13:00 Meperidine HCl (*DEMEROL INJ PERIprocedural ONLY) 25 mg STK-MED ONCE .ROUTE Last administered on 11/10/16 12:36; Start 11/10/16 at 12:36; Stop 11/10/16 at 12:37; Status DC Miscellaneous Information ALL NURSING DEPARTME... UNSCH PRN .XX SEE LABEL COMMENTS; Start 11/10/16 at 12:29; Stop 11/11/16 at 12:28; Status DC Midazolam HCl (Versed Inj) 2 mg STK-MED ONCE .ROUTE ; Start 11/10/16 at 12:48; Stop 11/10/16 at 12:49; Status DC Fentanyl Citrate (fentaNYL INJ) 250 mcg STK-MED ONCE .ROUTE ; Start 11/10/16 at 12:48; Stop 11/10/16 at 12:49; Status DC Morphine Sulfate (*morphine INJ PERIprocedure ONLY) 8 mg STK-MED ONCE .ROUTE Last administered on 11/10/16 14:36; Start 11/10/16 at 14:36; Stop 11/10/16 at 14:37; Status DC Bisacodyl (Dulcolax Ec) 10 mg ONCE ONCE PO Last administered on 11/11/16 10: 17; Start 11/11/16 at 07:00; Stop 11/11/16 at 07:04; Status DC Bisacodyl (Dulcolax Supp) 10 mg ONCE ONCE RECTAL Last administered on 10:17; Start 11/11/16 at 07:00; Stop 11/11/16 at 07:04; Status DC Sodium Chloride 250 ml @ 15 mls/hr ONCE ONCE IV Last administered on 11:19; Start 11/11/16 at 11:15; Stop 11/12/16 at 03:54; Status DC Furosemide (Lasix Inj) 20 mg ONCE ONCE IV ; Start 11/11/16 at 11:15; Stop 11/11 at 11:16; Status Cancel Furosemide (Lasix Inj) 20 mg ONCE ONCE IV Last administered on 11/12/16 11:18 ; Start 11/12/16 at 11:00; Stop 11/12/16 at 11:01; Status DC Albuterol/ Ipratropium (Duoneb Neb) 1 ampule Q4HR NEB PRN NEB wheezing; Start 11/12/16 at 13:15 Lactated Ringer's 1,000 ml @ 30 mls/hr Q24H PRN IV SEE LABEL COMMENTS; Start at 05:00; Stop 11/16/16 at 04:59; Status Cancel Sodium Chloride 500 ml @ 30 mls/hr [id number] PRN IV SEE LABEL COMMENTS; Start at 05:00; Stop 11/16/16 at 04:59; Status DC Metoprolol Tartrate (Lopressor) 25 mg DREDGE PIPEMAN PRN PO SEE LABEL COMMENTS; Start 11/13/16 at 05:00; Stop 11/16/16 at 04:59; Status DC Povidone Iodine (Betadine 5% Antisepsis Kit) 1 applic DREDGE PIPEMAN PRN EACH NARE SEE LABEL COMMENTS; Start 11/13/16 at 05:00; Stop 11/16/16 at 04:59; Status DC Chlorhexidine Gluconate (Chlorhexidine 2% Cloth) 3 pack DREDGE PIPEMAN PRN TOPICAL SEE LABEL COMMENTS; Start 11/13/16 at 05:00; Stop 11/16/16 at 04:59; Status DC Lidocaine HCl (Xylocaine 2% Jelly) 30 applic STK-MED ONCE .ROUTE ; Start at 07:15; Stop 11/13/16 at 07:16; Status DC Mineral Oil (Muri-Lube Oil) 10 ml STK-MED ONCE .ROUTE ; Start 11/13/16 at 07:15 ; Stop 11/13/16 at 07:16; Status DC Gentamicin Sulfate (Gentamicin Inj) 240 mg STK-MED ONCE .ROUTE Last administered on 11/13/16 08:20; Start 11/13/16 at 07:15; Stop 11/13/16 at 07:16 ; Status DC Albuterol Sulfate (Albuterol Neb) 2.5 mg STK-MED ONCE .ROUTE ; Start 11/13/16 at 07:34; Stop 11/13/16 at 07:35; Status DC Dexamethasone Sodium Phosphate (Decadron Inj) 4 mg STK-MED ONCE .ROUTE ; Start 11/13/16 at 07:36; Stop 11/13/16 at 07:37; Status DC Famotidine (Pepcid Inj) 20 mg STK-MED ONCE .ROUTE ; Start 11/13/16 at 07:36; Stop 11/13/16 at 07:37; Status DC Albuterol/ Ipratropium (Duoneb Neb) 1 ampule STK-MED ONCE .ROUTE Last administered on 11/13/16 07:50; Start 11/13/16 at 07:47; Stop 11/13/16 at 07:48 ; Status DC Lactated Ringer's 1,000 ml @ 100 mls/hr Q10H IV Last administered on 12:14; Start 11/13/16 at 08:42; Stop 11/18/16 at 16:33; Status DC Cefazolin Sodium/ Dextrose 50 ml @ 100 mls/hr Q8H IV Last administered on 04:43; Start 11/13/16 at 12:00; Stop 11/20/16 at 11:59; Status DC Gentamicin Sulfate/Sodium Chloride 100 ml @ 200 mls/hr Q8H IV Last administered on 11/16/16 09:14; Start 11/13/16 at 18:00; Stop 11/16/16 at 17:59 ; Status DC Midazolam HCl (Versed Inj) 2 mg STK-MED ONCE .ROUTE ; Start 11/13/16 at 09:25; Stop 11/13/16 at 09:26; Status DC Fentanyl Citrate (fentaNYL INJ) 250 mcg STK-MED ONCE .ROUTE ; Start 11/13/16 at 09:25; Stop 11/13/16 at 09:26; Status DC Zolpidem Tartrate (Ambien) 5 mg HS PRN PO Insomnia Last administered on 22:24; Start 11/14/16 at 11:00 Trazodone HCl (Desyrel) 100 mg HS PO Last administered on 01/05/17 21:06; Start 11/14/16 at 21:00 Morphine Sulfate (Oramorph Sr) 15 mg Q12HR PO Last administered on 11/18/16 10: 00; Start 11/16/16 at 21:00; Stop 11/18/16 at 16:36; Status DC Morphine Sulfate (Oramorph Sr) 15 mg ONCE ONCE PO Last administered on 12:32; Start 11/16/16 at 10:15; Stop 11/16/16 at 10:24; Status DC Gabapentin (Neurontin) 600 mg TID PO Last administered on 01/06/17 09:01; Start 11/16/16 at 13:00 Sodium Chloride 1,000 ml @ 999 mls/hr BOLUS ONCE IV Last administered on 17:22; Start 11/18/16 at 16:45; Stop 11/18/16 at 17:45; Status DC Morphine Sulfate (Oramorph Sr) 30 mg Q12HR PO Last administered on 11/29/16 09 :24; Start 11/18/16 at 21:00; Stop 11/29/16 at 14:26; Status DC Morphine Sulfate (Morphine Inj) 6 mg Q4H PRN IV PUSH PAIN SCALE 5 TO 10 Last administered on 11/19/16 05:59; Start 11/18/16 at 16:45; Stop 11/20/16 at 00:46; Status DC Morphine Sulfate (Morphine Inj) 3 mg Q3H PRN IV PUSH PAIN SCALE 1 TO 4 Last administered on 11/19/16 16:36; Start 11/18/16 at 16:45; Stop 11/20/16 at 00:46; Status DC Sodium Chloride 1,000 ml @ 125 mls/hr Q8H IV Last administered on 11/19/16 16: 15; Start 11/19/16 at 00:15; Stop 11/19/16 at 19:21; Status DC Sodium Chloride 500 ml @ 500 mls/hr BOLUS ONCE IV Last administered on 00:15; Start 11/19/16 at 00:15; Stop 11/19/16 at 01:14; Status DC Nystatin (Mycostatin Powder) 1 applic Q12HR TOPICAL Last administered on 08:54; Start 11/19/16 at 21:00; Stop 11/28/16 at 13:46; Status DC Acetaminophen/ Hydrocodone Bitart ([place] 7.5-325 Mg) 1 tab Q4H PRN PO PAIN SCALE 1 TO 4; Start 11/20/16 at 00:45; Stop 11/28/16 at 13:46; Status DC Acetaminophen/ Hydrocodone Bitart ([place] 10-325 Mg) 1 tab Q4H PRN PO PAIN SCALE 3-5 Last administered on 12/23/16 08:58; Start 11/20/16 at 00:45 Hydromorphone HCl (Dilaudid Pf Inj) 1 mg Q4H PRN IV PUSH BREAKTHROUGH PAIN Last administered on 12/17/16 10:38; Start 11/20/16 at 00:45; Stop 12/18/16 at 10:47; Status DC Propranolol HCl (Inderal) 40 mg Q12HR PO Last administered on 12/08/16 08:01; Start 11/22/16 at 21:00; Stop 12/08/16 at 10:00; Status DC Lactated Ringer's 1,000 ml @ 30 mls/hr Q24H PRN IV SEE LABEL COMMENTS; Start at 02:45; Stop 11/27/16 at 02:44; Status DC Sodium Chloride 500 ml @ 30 mls/hr [id number] PRN IV SEE LABEL COMMENTS; Start 11/24/16 at 02:45; Stop 11/27/16 at 02:44; Status DC Povidone Iodine (Betadine 5% Antisepsis Kit) 1 applic DREDGE PIPEMAN PRN EACH NARE SEE LABEL COMMENTS; Start 11/24/16 at 02:45; Stop 11/27/16 at 02:44; Status DC Chlorhexidine Gluconate (Chlorhexidine 2% Cloth) 3 pack DREDGE PIPEMAN PRN TOPICAL SEE LABEL COMMENTS; Start 11/24/16 at 02:45; Stop 11/27/16 at 02:44; Status DC Insulin Human Regular (NovoLIN R INJ) See Protocol Table ... DREDGE PIPEMAN PRN SQ SEE PROTOCOL TABLE; Start 11/24/16 at 02:45; Stop 11/27/16 at 02:44; Status DC Prochlorperazine Edisylate (Compazine Inj) 10 mg Q8H PRN IV PUSH NAUSEA/ VOMITING Last administered on 11/25/16 18:00; Start 11/25/16 at 16:15 Sodium Chloride 500 ml @ 500 mls/hr BOLUS ONCE IV Last administered on 18:06; Start 11/25/16 at 17:00; Stop 11/25/16 at 17:59; Status DC Gentamicin Sulfate (Gentamicin Inj) 240 mg STK-MED ONCE .ROUTE Last administered on 11/28/16 10:42; Start 11/28/16 at 07:18; Stop 11/28/16 at 07:19 ; Status DC Vancomycin HCl (Vancomycin Inj) 1,000 mg STK-MED ONCE .ROUTE Last administered on 12/09/16 15:25; Start 11/28/16 at 07:38; Stop 11/28/16 at 07:39; Status DC Cefazolin Sodium/ Dextrose 50 ml @ As Directed STK-MED ONCE .ROUTE Last administered on 12/09/16 15:20; Start 11/28/16 at 07:38; Stop 11/28/16 at 07:39 ; Status DC Sodium Chloride 250 ml @ As Directed STK-MED ONCE .ROUTE ; Start 11/28/16 at 07 :39; Stop 11/28/16 at 07:40; Status DC Fentanyl Citrate (fentaNYL INJ) 250 mcg STK-MED ONCE .ROUTE ; Start 11/28/16 at 10:15; Stop 11/28/16 at 10:16; Status DC Cefazolin Sodium (Ancef Inj) 1,000 mg STK-MED ONCE .ROUTE Last administered on 11/28/16 10:31; Start 11/28/16 at 10:23; Stop 11/28/16 at 10:24; Status DC Lactated Ringer's 1,000 ml @ 100 mls/hr Q10H IV ; Start 11/28/16 at 10:59; Stop 12/03/16 at 09:16; Status DC Cefazolin Sodium/ Dextrose 50 ml @ 100 mls/hr Q8H IV Last administered on 12/01 06:46; Start 11/28/16 at 15:00; Stop 12/01/16 at 14:59; Status DC Magnesium Hydroxide (Milk Of Clyde Liq) 30 ml Q12H PRN PO MILD - MODERATE CONSTIPATION Last administered on 12/26/16 10:08; Start 11/28/16 at 11:30 Sennosides (Senokot) 17.2 mg Q12H PRN PO MODERATE - SEVERE CONSTIPATION Last administered on 12/25/16 09:48; Start 11/28/16 at 11:30 Bisacodyl (Dulcolax Supp) 10 mg DAILY PRN RECTAL SEVERE CONSITIPATION Last administered on 12/11/16 12:30; Start 11/28/16 at 11:30 Albuterol Sulfate (*ALBUTEROL NEB PERIprocedure ONLY) 2.5 mg STK-MED ONCE NEB Last administered on 11/28/16 11:38; Start 11/28/16 at 11:38; Stop 11/28/16 at 11:39; Status DC Dexamethasone Sodium Phosphate (Decadron Inj) 4 mg STK-MED ONCE .ROUTE ; Start 11/28/16 at 11:51; Stop 11/28/16 at 11:52; Status DC Dexamethasone Sodium Phosphate (Decadron Inj) 4 mg NOW ONCE IV Last administered on 11/28/16 12:00; Start 11/28/16 at 12:00; Stop 11/28/16 at 12:01 ; Status DC Miscellaneous Information ALL NURSING DEPARTME... UNSCH PRN .XX SEE LABEL COMMENTS; Start 11/28/16 at 11:22; Stop 11/29/16 at 11:21; Status DC Morphine Sulfate (*morphine INJ PERIprocedure ONLY) 8 mg STK-MED ONCE .ROUTE Last administered on 11/28/16 12:01; Start 11/28/16 at 12:01; Stop 11/28/16 at 12:02; Status DC Acetaminophen/ Hydrocodone Bitart ([place] 10-325 Mg) 1.5 tab Q4H PRN PO pain 6- 10 Last administered on 12/23/16 17:35; Start 11/28/16 at 15:00; Stop 12/23/16 at 18:38; Status DC Nystatin (Mycostatin Cream) 1 applic Q6HR TOPICAL Last administered on 05:00; Start 11/28/16 at 14:00; Stop 12/16/16 at 13:46; Status DC Morphine Sulfate (Oramorph Sr) 30 mg Q8HR PO Last administered on 12/03/16 06: 09; Start 11/29/16 at 22:00; Stop 12/03/16 at 12:16; Status DC Cetirizine HCl (ZyrTEC) 10 mg HS PO Last administered on 12/07/16 20:03; Start 12/01/16 at 21:00; Stop 12/08/16 at 20:59; Status DC Fluticasone Propionate (Flonase Jerzy Spr) 2 spray DAILY EACH NARE Last administered on 12/15/16 08:54; Start 12/01/16 at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
[2017-01-06] MEDS: ALUMINUM/MAGNESIUM/SIMETH 30 ML CUP PO PRN (11:29)
[2017-01-06] MEDS: FERROUS SULFATE 325 MG (65 MG ELEMENTAL IRON) TAB PO SCH ×2 (11:29→16:19)
[2017-01-06 14:17] VITALS: BP 107/63; PULSE 71; RESP 18; TEMP 96.4; O2SAT 95
[2017-01-06 16:00] VITALS: BP 108/64; PULSE 70; RESP 18; TEMP 96; O2SAT 96
[2017-01-06] MEDS: PRAVASTATIN SOD 80 MG TAB PO SCH (20:19)
[2017-01-06] MEDS: traZODone HCL 100 MG TAB PO SCH (20:19)
[2017-01-06] MEDS: diphenhydrAMINE HCL 50 MG CAP PO PRN (20:19)
[2017-01-06 20:20] VITALS: BP 127/68; PULSE 62; RESP 17; TEMP 97.4; O2SAT 98
[2017-01-06] MEDS: LIDOCAINE HCL 5% PATCH T-DERMAL SCH (20:20)
[2017-01-06] MEDS: MAGNESIUM HYDROXIDE SUSP 30 ML CUP PO SCH (20:23)
[2017-01-07] MEDS: ACETAMINOPHEN/HYDROcodone 325 MG/10 MG TAB PO PRN ×5 (02:55→20:56)
[2017-01-07] MEDS: MORPHINE SULFATE 30 MG CONTROLLED RELEASE TAB PO SCH ×3 (06:23→20:57)
--- NOTE | 2017-01-07 06:44 | PD.ORT.PN ---
Subjective Subjective Remarks Pain controlled Doing well Objective Vitals Vital Signs Date Time Temp Pulse Resp B/P (MAP) Pulse Ox O2 Delivery O2 Flow Rate FiO2 01/06/17 20:20 97.4 62 17 127/68 (87) 98 01/06/17 17:21 18 01/06/17 16:00 96.0 70 18 108/64 (79) 96 01/06/17 14:57 18 01/06/17 14:17 96.4 71 18 107/63 (78) 95 01/06/17 08:29 96.2 66 18 121/68 (85) 99 I/O 01/06/17 01/06/17 01/06/17 01/07/17 01/07/17 01/07/17 07:00 15:00 23:00 07:00 15:00 23:00 Intake Total 480 ml 1080 ml 720 ml 480 ml Output Total 1000 ml 350 ml 1650 ml Balance -520 ml 730 ml 720 ml -1170 ml Intake Oral 480 ml 1080 ml 720 ml 480 ml Output Urine Total 800 ml 1300 ml Drainage Total 200 ml 350 ml 350 ml # Voids 5 2 # Bowel Movements 0 4 0 0 Result Diagram: 01/03/17 0800 01/03/17 0800 Imaging Last 24 hours Impressions Pelvis X-Ray 11/07/16 1355 Signed Impressions: Service Date/Time: Monday, November 07, 2016 13:34 - CONCLUSION: No acute disease. Behzad Finch Jr., MD Chest X-Ray 11/07/16 1355 Signed Impressions: Service Date/Time: Monday, November 07, 2016 13:34 - CONCLUSION: No acute disease. Jac Gonzales MD Objective Remarks RLE: Dressings clean and dry. intact. with full sensation and motor function. + exfix. pin sites--first metatarsal pin is loose, other pins appear to be clean and dry LLE: Wound VAC intact. Good seal. no sensation over medial foot. slight stiffness with dorsiflexion. Assessment & Plan Assessment and Plan 1) Right Open Tibia Fracture s/p exfix revision with ORIF 2) Left Open Tibia Fracture s/p Soleus muscle flap with IMN and removal of exfix 3) left tibia plateau fracture treated nonoperatively 4) s/p vac change with collagen grafting 01/06/17 -NWB BLE -pin care BID right leg -veraflow vac changed on left leg -vac settings: -soak time: 3min of 10 CCs -suction: 15min @ 100mmHg -maintain vac at all times -Nothing by mouth after midnight with possible skin graft to left tibia tomorrow Ronald Hatch Jr. Jan 07, 2017 06:44
[2017-01-07] MEDS: ENOXAPARIN SODIUM 40 MG/0.4 ML SYRINGE SQ SCH (07:23)
[2017-01-07] MEDS: PANTOPRAZOLE SOD 40 MG DELAYED RELEASE TAB PO SCH (07:23)
[2017-01-07] MEDS: LACTOBACILLUS ACIDOPHILUS TAB PO SCH ×3 (07:23→15:48)
[2017-01-07] MEDS: diphenhydrAMINE HCL 50 MG CAP PO PRN ×2 (07:23→21:01)
[2017-01-07] MEDS: GABAPENTIN 300 MG CAP PO SCH ×3 (07:23→15:48)
[2017-01-07] MEDS: ASCORBIC ACID 500 MG TAB PO SCH ×2 (07:23→20:56)
[2017-01-07] MEDS: PROPRANOLOL HCL 10 MG TAB PO SCH ×2 (07:23→20:57)
[2017-01-07] MEDS: DOCUSATE SODIUM 50 MG/SENNA 8.6 MG TAB PO SCH ×2 (07:23→20:57)
[2017-01-07] MEDS: ASPIRIN 81 MG CHEW TAB CHEW SCH (07:24)
[2017-01-07] MEDS: CALCIUM CARBONATE 500 MG CHEWABLE TAB CHEW SCH ×2 (07:24→20:57)
[2017-01-07] MEDS: CALCIUM/VITAMIN D 250 MG/125 U TAB PO SCH ×3 (07:24→15:49)
[2017-01-07] MEDS: FOLIC ACID 1 MG TAB PO SCH (07:24)
[2017-01-07] MEDS: VANCOMYCIN 1,500 MG/NS 500 ML IV SCH ×4 (07:26→20:57)
[2017-01-07] MEDS: SODIUM CHLORIDE 0.9% FLUSH 10 ML FLUSH IV FLUSH SCH ×2 (07:26→20:57)
[2017-01-07] MEDS: NEOMYCIN/POLYMYXIN/BACITRACIN OINT 15 GM TUBE TOPICAL SCH (07:29)
[2017-01-07] MEDS: REMOVE OLD LIDOCAINE PATCH T-DERMAL SCH (07:29)
[2017-01-07] MEDS: THIAMINE HCL 100 MG TAB PO SCH (07:29)
[2017-01-07] MEDS: FLUTICASONE PROPIONATE 50 MCG/ACT 16 GM NASAL SPRAY NASAL SCH ×2 (07:29→20:58)
[2017-01-07 08:00] VITALS: BP 127/73; PULSE 65; RESP 17; TEMP 97.2; O2SAT 97
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
[2017-01-07] MEDS: FERROUS SULFATE 325 MG (65 MG ELEMENTAL IRON) TAB PO SCH ×2 (11:07→15:49)
[2017-01-07 11:45] VITALS: BP 103/62; PULSE 74; RESP 16; TEMP 97.6; O2SAT 96
[2017-01-07 15:35] VITALS: BP 123/80; PULSE 97; RESP 16; TEMP 96.7; O2SAT 99
[2017-01-07 19:00] VITALS: BP 116/76; PULSE 67; RESP 17; TEMP 97; O2SAT 98
[2017-01-07] MEDS: traZODone HCL 100 MG TAB PO SCH (20:56)
[2017-01-07] MEDS: PRAVASTATIN SOD 80 MG TAB PO SCH (20:56)
[2017-01-07] MEDS: LIDOCAINE HCL 5% PATCH T-DERMAL SCH (20:58)
[2017-01-07] MEDS: MAGNESIUM HYDROXIDE SUSP 30 ML CUP PO SCH (20:58)
[2017-01-08] MEDS: ACETAMINOPHEN/HYDROcodone 325 MG/10 MG TAB PO PRN ×6 (00:50→20:59)
[2017-01-08] MEDS: VANCOMYCIN IRRIGATION PRN (01:36)
[2017-01-08] MEDS: IRR IRRIGATION PRN (01:36)
[2017-01-08] MEDS: SODIUM CHLORIDE 0.9% IRRIGATION PRN (01:36)
[2017-01-08] MEDS: MORPHINE SULFATE 30 MG CONTROLLED RELEASE TAB PO SCH ×3 (05:28→22:30)
[2017-01-08 08:00] VITALS: BP 125/69; PULSE 62; RESP 18; TEMP 97.1; O2SAT 98
[2017-01-08] MEDS: CALCIUM CARBONATE 500 MG CHEWABLE TAB CHEW SCH ×2 (08:15→20:59)
[2017-01-08] MEDS: LACTOBACILLUS ACIDOPHILUS TAB PO SCH ×3 (08:15→15:38)
[2017-01-08] MEDS: CALCIUM/VITAMIN D 250 MG/125 U TAB PO SCH ×3 (08:15→15:38)
[2017-01-08] MEDS: ENOXAPARIN SODIUM 40 MG/0.4 ML SYRINGE SQ SCH (08:15)
[2017-01-08] MEDS: DOCUSATE SODIUM 50 MG/SENNA 8.6 MG TAB PO SCH ×2 (08:15→21:00)
[2017-01-08] MEDS: GABAPENTIN 300 MG CAP PO SCH ×3 (08:15→15:38)
[2017-01-08] MEDS: diphenhydrAMINE HCL 50 MG CAP PO PRN ×2 (08:15→20:58)
[2017-01-08] MEDS: FOLIC ACID 1 MG TAB PO SCH (08:15)
[2017-01-08] MEDS: PANTOPRAZOLE SOD 40 MG DELAYED RELEASE TAB PO SCH (08:15)
[2017-01-08] MEDS: ASCORBIC ACID 500 MG TAB PO SCH ×2 (08:15→20:59)
[2017-01-08] MEDS: PROPRANOLOL HCL 10 MG TAB PO SCH ×2 (08:15→20:58)
[2017-01-08] MEDS: ASPIRIN 81 MG CHEW TAB CHEW SCH (08:15)
[2017-01-08] MEDS: THIAMINE HCL 100 MG TAB PO SCH (08:15)
[2017-01-08] MEDS: SODIUM CHLORIDE 0.9% FLUSH 10 ML FLUSH IV FLUSH SCH ×2 (08:18→21:01)
[2017-01-08] MEDS: FLUTICASONE PROPIONATE 50 MCG/ACT 16 GM NASAL SPRAY NASAL SCH ×2 (08:19→21:01)
[2017-01-08] MEDS: REMOVE OLD LIDOCAINE PATCH T-DERMAL SCH (08:19)
[2017-01-08] MEDS: NEOMYCIN/POLYMYXIN/BACITRACIN OINT 15 GM TUBE TOPICAL SCH (08:19)
[2017-01-08] MEDS: VANCOMYCIN 1,500 MG/NS 500 ML IV SCH ×4 (09:08→21:01)
--- NOTE | 2017-01-08 11:42 | HHI.PR ---
Subjective Remarks in no acute distress. pain seems to be controlled. no fever. Objective Vitals Vital Signs Date Time Temp Pulse Resp B/P (MAP) Pulse Ox O2 Delivery O2 Flow Rate FiO2 01/08/17 08:00 97.1 62 18 125/69 (87) 98 01/07/17 19:00 97.0 67 17 116/76 (89) 98 01/07/17 15:35 96.7 97 16 123/80 (94) 99 01/07/17 11:45 97.6 74 16 103/62 (76) 96 I/O 01/07/17 01/07/17 01/07/17 01/08/17 01/08/17 01/08/17 07:00 15:00 23:00 07:00 15:00 23:00 Intake Total 480 ml 800 ml 480 ml 515 ml Output Total 1650 ml 860 ml 325 ml 1125 ml Balance -1170 ml -60 ml 155 ml -610 ml Intake Oral 480 ml 800 ml 480 ml 0 ml IV Total 515 ml Output Urine Total 1300 ml 700 ml 850 ml Drainage Total 350 ml 160 ml 325 ml 275 ml # Voids 2 # Bowel Movements 0 2 0 0 Result Diagram: 01/07/17 0745 Imaging Last Impressions Tibia/Fibula X-Ray 01/01/17 0000 Signed Impressions: Service Date/Time: December 09:33 - CONCLUSION: There are no complications. Paul Fuentes MD Knee X-Ray 01/01/17 0000 Signed Impressions: Service Date/Time: December 09:37 - CONCLUSION: Lateral tibial plateau fracture without involvement of the articulating surface. Paul Fuentes MD Foot X-Ray 12/27/16 0000 Signed Impressions: Service Date/Time: Tuesday, December 27, 2016 16:50 - CONCLUSION: Distal tibia and fibula fractures with internal fixation hardware. Samir Massey MD Ankle X-Ray 12/17/16 0000 Signed Impressions: Service Date/Time: Saturday, December 17, 2016 10:13 - CONCLUSION: Intramedullary mariano in tibia. Severely comminuted fibular fracture. Arvind Flores MD FACR Gall Bladder Ultrasound 12/05/16 0000 Signed Impressions: Service Date/Time: Monday, December 05, 2016 08:38 - CONCLUSION: Unremarkable exam. Gallbladder is within normal limits with no evidence of cholelithiasis. Ronald Rao MD Abdomen X-Ray 12/04/16 0000 Signed Impressions: Service Date/Time: November 10:42 - CONCLUSION: Unremarkable bowel gas pattern. Ronald Rao MD Chest X-Ray 11/20/16 0000 Signed Impressions: Service Date/Time: November 17:08 - CONCLUSION: 1. No acute abnormality or significant interval change. Sukhi Stevens MD Pelvis X-Ray 11/07/16 1355 Signed Impressions: Service Date/Time: Monday, November 07, 2016 13:34 - CONCLUSION: No acute disease. Behzad Finch Jr., MD Objective Remarks GENERAL: This is a well-nourished, well-developed patient, in no apparent distress. CARDIOVASCULAR: Regular rate and regular rhythm without murmurs, gallops, or rubs. RESPIRATORY: Clear to auscultation. Breath sounds equal bilaterally. No wheezes , rales, or rhonchi. GASTROINTESTINAL: Abdomen soft, non-tender, nondistended. Normal, active bowel sounds MUSCULOSKELETAL: external fixator on the right leg- left leg covered with clean dressing. NEURO: Alert & Oriented x4 to person, place, time, situation. Moves all ext x4 Procedures 1.s/p I&D with ex fix application bilateral tibias s/p wound vac application left tibia 2.With the assistance of RN, under sterile technique the avulsed skin of the right middle finger was clipped. No bleeding noted. Patient gave consent 3.Open reduction internal fixation of right distal tibia and fibula fractures Nonoperative treatment left tibial plateau fracture Irrigation and debridement of left tibia shaft fracture, removal external fixation, soleus muscle rotational flap, intramedullary nail fixation left tibia , application of wound VAC dressing 4.11/13 Irrigation and debridement of left tibia, application wound VAC dressing 5. 8 Irrigation and debridement of left open tibia fracture with application of wound VAC dressing 6. 8 wound vac change at the bedside 7. 8 wound vac change at the bedside 8. 12/08 wound vac change at the bedside 9. 8 I&D left tibia, application of wound VAC dressing and application of AlloMax allograft dermal matrix Medications and IVs Current Medications Cefazolin Sodium/ Dextrose 50 ml @ As Directed STK-MED ONCE .ROUTE Last administered on 11/13/16 08:09; Start 11/07/16 at 13:58; Stop 11/07/16 at 13:59 ; Status DC Diphtheria/ Tetanus/Acell Pertussis (Boostrix Inj) 0.5 ml STK-MED ONCE IM ; Start 11/07/16 at 13:58; Stop 11/07/16 at 13:59; Status DC Morphine Sulfate (Morphine Inj) 8 mg STK-MED ONCE .ROUTE ; Start 11/07/16 at 14: 01; Stop 11/07/16 at 14:02; Status DC Hydromorphone HCl (Dilaudid Pf Inj) 1 mg STK-MED ONCE .ROUTE Last administered on 11/07/16 19:15; Start 11/07/16 at 14:05; Stop 11/07/16 at 14:06; Status DC Lactated Ringer's 1,000 ml @ 100 mls/hr Q10H IV ; Start 11/07/16 at 14:22; Stop 11/07/16 at 19:02; Status DC Sodium Chloride (NS Flush) 2 ml UNSCH PRN IV FLUSH FLUSH AFTER USING IV ACCESS Last administered on 12/11/16 11:31; Start 11/07/16 at 14:30 Sodium Chloride (NS Flush) 2 ml BID IV FLUSH Last administered on 01/08/17 08: 18; Start 11/07/16 at 21:00 Ondansetron HCl (Zofran Inj) 4 mg Q6H PRN IV NAUSEA OR VOMITING Last administered on 12/04/16 06:13; Start 11/07/16 at 14:30 Pantoprazole Sodium (Protonix Inj) 40 mg Q24H IV Last administered on 20:00; Start 11/07/16 at 17:00; Stop 11/08/16 at 08:09; Status DC Docusate Sodium (Colace) 100 mg BID PO ; Start 11/07/16 at 21:00; Stop 11/08/16 at 13:04; Status DC Cefazolin Sodium 1000 mg/Sodium Chloride 100 ml @ 200 mls/hr Q8H IV ; Start at 22:00; Stop 11/07/16 at 22:00; Status DC Miscellaneous Information (Post-op Orders (for Pharmacy)) STAT ONCE XX ; Start 11/07/16 at 14:30; Stop 11/07/16 at 15:39; Status DC Oxycodone/ Acetaminophen (Percocet 10-325 Mg) 1 tab Q4H PRN PO 3-5; Start 11/07 at 14:30; Stop 11/07/16 at 19:03; Status DC Hydromorphone HCl (Dilaudid Pf Inj) 1 mg Q2H PRN IV Pain 6-10; Start 11/07/16 at 14:30; Stop 11/07/16 at 19:11; Status DC Naloxone HCl (Narcan Inj) 0.4 mg UNSCH PRN IV SEE LABEL COMMENTS; Start at 14:30 Gentamicin Sulfate (Gentamicin Inj) 80 mg Q8H IM ; Start 11/07/16 at 14:30; Stop 11/07/16 at 15:37; Status DC Hydromorphone HCl (Dilaudid Pf Inj) 0.5 mg INGOT STRIPPER DOSING PRN IV PUSH pain; Start 11/07/16 at 14:45; Stop 11/07/16 at 19:11; Status DC Gentamicin Sulfate/Sodium Chloride 100 ml @ 200 mls/hr Q8H IV ; Start 11/07/16 at 17:00; Status Cancel Miscellaneous Information (Post-op Orders (for Pharmacy)) UNSCH X1 XX ; Start 11/07/16 at 15:45; Stop 11/08/16 at 06:00; Status DC Cefazolin Sodium (Ancef Inj) 1,000 mg STK-MED ONCE .ROUTE Last administered on 11/07/16 16:26; Start 11/07/16 at 15:48; Stop 11/07/16 at 15:49; Status DC Gentamicin Sulfate (Gentamicin Inj) 80 mg STK-MED ONCE .ROUTE Last administered on 11/07/16 16:26; Start 11/07/16 at 15:49; Stop 11/07/16 at 15:50 ; Status DC Acetaminophen (Ofirmev Inj) 1,000 mg STK-MED ONCE IV ; Start 11/07/16 at 15:56; Stop 11/07/16 at 15:57; Status DC Midazolam HCl (Versed Inj) 2 mg STK-MED ONCE .ROUTE ; Start 11/07/16 at 15:56; Stop 11/07/16 at 15:57; Status DC Famotidine (Pepcid Inj) 20 mg STK-MED ONCE .ROUTE ; Start 11/07/16 at 15:56; Stop 11/07/16 at 15:57; Status DC Gentamicin Sulfate (Gentamicin Inj) 240 mg STK-MED ONCE IRRIGATION Last administered on 11/07/16 16:26; Start 11/07/16 at 16:26; Stop 11/07/16 at 16:42 ; Status DC Fentanyl Citrate (fentaNYL INJ) 250 mcg STK-MED ONCE .ROUTE ; Start 11/07/16 at 17:03; Stop 11/07/16 at 17:04; Status DC Gentamicin Sulfate (Gentamicin Inj) 240 mg STK-MED ONCE .ROUTE Last administered on 11/07/16 16:26; Start 11/07/16 at 17:10; Stop 11/07/16 at 17:11 ; Status DC Lactated Ringer's 1,000 ml @ 100 mls/hr Q10H IV Last administered on 07:51; Start 11/07/16 at 18:00; Stop 11/08/16 at 12:46; Status DC Enoxaparin Sodium (Lovenox Inj) 30 mg Q12H SQ ; Start 11/08/16 at 17:00; Stop at 11:48; Status DC Cefazolin Sodium/ Dextrose 50 ml @ 100 mls/hr Q8H IV Last administered on 11/10 08:16; Start 11/08/16 at 00:00; Stop 11/10/16 at 12:47; Status DC Gentamicin Sulfate/Sodium Chloride 100 ml @ 200 mls/hr Q8H IV Last administered on 11/10/16 16:30; Start 11/08/16 at 00:00; Stop 11/10/16 at 16:29 ; Status DC Acetaminophen/ Hydrocodone Bitart ([place] 10-325 Mg) 1 tab Q3H PRN PO PAIN 3<10 Last administered on 11/08/16 10:36; Start 11/07/16 at 18:00; Stop 11/08/16 at 13:04; Status DC Morphine Sulfate (Morphine Inj) 4 mg Q3H PRN IV PUSH Break thru Pain Last administered on 11/08/16 07:50; Start 11/07/16 at 18:00; Stop 11/08/16 at 12:21 ; Status DC Ketorolac Tromethamine (Toradol Inj) 30 mg Q12H IVP Last administered on 05:32; Start 11/07/16 at 18:00; Stop 11/10/16 at 06:01; Status DC Bacitracin (Baciguent Oint) 15 applic STK-MED ONCE .ROUTE Last administered on 11/07/16 18:09; Start 11/07/16 at 18:09; Stop 11/07/16 at 18:10; Status DC Miscellaneous Information ALL NURSING DEPARTME... UNSCH PRN .XX SEE LABEL COMMENTS; Start 11/07/16 at 18:33; Stop 11/08/16 at 18:32; Status DC Acetaminophen (Tylenol) 650 mg Q4H PRN PO Temp > 100.4, pain 1-2; Start at 08:15 Magnesium Hydroxide (Milk Of Magnesia Liq) 30 ml DAILY PRN PO for Severe Constipation Last administered on 11/09/16 20:15; Start 11/08/16 at 08:15; Stop 11/10/16 at 09:00; Status DC Calcium Carbonate (Tums Chew) 1,000 mg TID PRN CHEW DYSPEPSIA Last administered on 01/04/17 16:36; Start 11/08/16 at 08:15 Dextrose (D50w (Vial) Inj) 50 ml UNSCH PRN IV HYPOGLYCEMIA-SEE COMMENTS; Start 11/08/16 at 08:15; Stop 12/03/16 at 09:16; Status DC Glucagon (Glucagon Inj) 1 mg UNSCH PRN OTHER HYPOGLYCEMIA-SEE COMMENTS; Start 11/08/16 at 08:15; Stop 12/03/16 at 09:16; Status DC Insulin Aspart (NovoLOG SUPPLEMENTAL SCALE) 1 ACHS SLIDING SCALE SQ Last administered on 12/01/16 13:21; Start 11/08/16 at 11:00; Stop 12/03/16 at 09:16 ; Status DC Enalaprilat (Vasotec Inj) 1.25 mg Q6H PRN IV SBP> OR = 180, DBP> OR = 100; Start 11/08/16 at 08:15 Clonidine (Catapres) 0.1 mg Q6H PRN PO SBP> OR = 180, DBP> OR = 100; Start at 08:15 Gabapentin (Neurontin) 400 mg TID PO Last administered on 11/16/16 09:10; Start 11/08/16 at 13:00; Stop 11/16/16 at 11:46; Status DC Morphine Sulfate (Morphine Inj) 6 mg Q3H PRN IV PUSH PAIN 6-10 Last administered on 11/17/16 15:09; Start 11/08/16 at 15:00; Stop 11/18/16 at 16:37 ; Status DC Aspirin (Aspirin Chew) 81 mg DAILY CHEW Last administered on 01/08/17 08:15; Start 11/08/16 at 12:45 Ferrous Sulfate (Ferrous Sulfate) 325 mg DAILY PO Last administered on 08:11; Start 11/08/16 at 12:45; Stop 12/05/16 at 09:25; Status DC Lisinopril (Prinivil) 25 mg DAILY PO Last administered on 11/18/16 09:59; Start 11/08/16 at 12:45; Status Future Hold Nitroglycerin (Nitrostat Sl) 0.4 mg Q6HR PRN SL CHEST PAIN; Start 11/08/16 at 12:45 Pantoprazole Sodium (Protonix) 40 mg DAILY PO Last administered on 01/08/17 08 :15; Start 11/08/16 at 12:45 Pravastatin Sodium (Pravachol) 80 mg HS PO Last administered on 01/07/17 20:56 ; Start 11/08/16 at 21:00 Propranolol HCl (Inderal) 80 mg Q12HR PO Last administered on 11/18/16 10:01; Start 11/08/16 at 21:00; Stop 11/22/16 at 12:49; Status DC Miscellaneous (Pill Splitter) 1 ea UNSCH PRN OTHER SEE LABEL COMMENTS; Start at 12:45 Senna/Docusate Sodium (Elke-Colace) 1 tab BID PO Last administered on 08:15; Start 11/08/16 at 12:45; Status Future hold Lactulose (Lactulose Liq) 30 ml DAILY PRN PO No BM in 2 days; Start 11/08/16 at 12:45; Stop 11/10/16 at 07:47; Status DC Acetaminophen/ Hydrocodone Bitart ([place] 10-325 Mg) 1.5 tab Q3H PRN PO PAIN 3- 10 Last administered on 11/09/16 23:46; Start 11/08/16 at 15:00; Stop 11/10/16 at 12:45; Status DC Folic Acid (Folate) 1 mg DAILY PO Last administered on 11/12/16 09:14; Start 11/09/16 at 09:00; Stop 11/14/16 at 08:59; Status DC Thiamine HCl (Vitamin B1) 100 mg DAILY PO Last administered on 01/08/17 08:15 ; Start 11/09/16 at 09:00 Multivitamins/ Minerals Therapeutic (Theragran M Tab) 1 tab DAILY PO Last administered on 11/12/16 09:13; Start 11/09/16 at 09:00; Stop 11/14/16 at 08:59 ; Status DC Flumazenil (Romazicon Inj) 0.2 mg Q1M PRN IV PUSH SEE LABEL COMMENTS; Start at 13:00 Lorazepam (Ativan) 1 mg Q4H PRN PO CIWA 8 - 10; Start 11/08/16 at 13:00; Stop 11/26/16 at 16:05; Status DC Lorazepam (Ativan Inj) 1 mg Q4H PRN IV PUSH CIWA 8 - 10; Start 11/08/16 at 13: 00; Stop 11/26/16 at 16:05; Status DC Lorazepam (Ativan) 2 mg Q2H PRN PO CIWA 11-14; Start 11/08/16 at 13:00; Stop at 16:05; Status DC Lorazepam (Ativan Inj) 2 mg Q2H PRN IV PUSH CIWA 11-14; Start 11/08/16 at 13:00 ; Stop 11/26/16 at 16:05; Status DC Lorazepam (Ativan Inj) 2 mg Q1H PRN IV PUSH CIWA 15-20; Start 11/08/16 at 13:00 ; Stop 11/26/16 at 16:05; Status DC Lorazepam (Ativan Inj) 2 mg Q15M PRN IV PUSH CIWA > 20; Start 11/08/16 at 13:00 ; Stop 11/26/16 at 16:05; Status DC Haloperidol Lactate (Haldol Inj) 2 mg Q15M PRN IM SEE LABEL COMMENTS; Start at 13:00 Lactated Ringer's 1,000 ml @ 30 mls/hr Q24H PRN IV SEE LABEL COMMENTS; Start at 00:45; Stop 11/09/16 at 12:05; Status DC Sodium Chloride 500 ml @ 30 mls/hr [id number] PRN IV SEE LABEL COMMENTS; Start at 00:45; Stop 11/09/16 at 12:05; Status DC Metoprolol Tartrate (Lopressor) 25 mg GRID OPERATOR PRN PO SEE LABEL COMMENTS; Start 11/09/16 at 00:45; Stop 11/12/16 at 00:44; Status DC Povidone Iodine (Betadine 5% Antisepsis Kit) 1 applic GRID OPERATOR PRN EACH NARE SEE LABEL COMMENTS; Start 11/09/16 at 00:45; Stop 11/12/16 at 00:44; Status DC Chlorhexidine Gluconate (Chlorhexidine 2% Cloth) 3 pack GRID OPERATOR PRN TOPICAL SEE LABEL COMMENTS; Start 11/09/16 at 00:45; Stop 11/09/16 at 12:05; Status DC Insulin Human Regular (NovoLIN R INJ) See Protocol Table ... GRID OPERATOR PRN SQ SEE PROTOCOL TABLE; Start 11/09/16 at 00:45; Stop 11/12/16 at 00:44; Status DC Potassium Chloride (KCl) 20 meq ONCE ONCE PO Last administered on 11/09/16 11 :40; Start 11/09/16 at 11:00; Stop 11/09/16 at 11:01; Status DC Neomycin/ Polymyxin/ Bacitracin (Neosporin Oint) 1 applic DAILY TOPICAL Last administered on 01/02/17 09:00; Start 11/10/16 at 09:00 Lactulose (Lactulose Liq) 30 ml DAILY PO Last administered on 12/02/16 09:18; Start 11/10/16 at 09:00; Stop 12/08/16 at 09:52; Status DC Magnesium Hydroxide (Milk Of Magnesia Liq) 30 ml HS PO Last administered on 21:07; Start 11/10/16 at 21:00; Status Future hold Famotidine (Pepcid Inj) 20 mg STK-MED ONCE .ROUTE Last administered on 08:51; Start 11/10/16 at 08:51; Stop 11/10/16 at 08:52; Status DC Albuterol Sulfate (Albuterol Neb) 2.5 mg STK-MED ONCE .ROUTE Last administered on 11/10/16 08:55; Start 11/10/16 at 08:53; Stop 11/10/16 at 08:54; Status DC Gentamicin Sulfate (Gentamicin Inj) 240 mg STK-MED ONCE .ROUTE Last administered on 11/10/16 09:48; Start 11/10/16 at 09:02; Stop 11/10/16 at 09:03 ; Status DC Acetaminophen (Ofirmev Inj) 1,000 mg STK-MED ONCE IV ; Start 11/10/16 at 09:13; Stop 11/10/16 at 09:14; Status DC Lactated Ringer's 1,000 ml @ 100 mls/hr Q10H IV Last administered on 00:53; Start 11/10/16 at 13:00; Stop 11/11/16 at 11:56; Status DC Enoxaparin Sodium (Lovenox Inj) 30 mg Q12H SQ Last administered on 12/04/16 00 :03; Start 11/11/16 at 00:00; Stop 12/04/16 at 09:43; Status DC Cefazolin Sodium/ Dextrose 50 ml @ 100 mls/hr Q8H IV Last administered on 11/13 00:05; Start 11/10/16 at 16:00; Stop 11/13/16 at 08:29; Status DC Gentamicin Sulfate/Sodium Chloride 100 ml @ 200 mls/hr Q8H IV Last administered on 11/13/16 10:00; Start 11/10/16 at 18:00; Stop 11/13/16 at 10:29 ; Status DC Acetaminophen/ Hydrocodone Bitart ([place] 10-325 Mg) 1 tab Q3H PRN PO PAIN 3<10 Last administered on 11/18/16 04:34; Start 11/10/16 at 11:45; Stop 11/18/16 at 16 :37; Status DC Calcium/Vitamin D (Oscal-D 250-125) 250 mg TID PO Last administered on 08:15; Start 11/10/16 at 13:00 Meperidine HCl (*DEMEROL INJ PERIprocedural ONLY) 25 mg STK-MED ONCE .ROUTE Last administered on 11/10/16 12:36; Start 11/10/16 at 12:36; Stop 11/10/16 at 12:37; Status DC Miscellaneous Information ALL NURSING DEPARTME... UNSCH PRN .XX SEE LABEL COMMENTS; Start 11/10/16 at 12:29; Stop 11/11/16 at 12:28; Status DC Midazolam HCl (Versed Inj) 2 mg STK-MED ONCE .ROUTE ; Start 11/10/16 at 12:48; Stop 11/10/16 at 12:49; Status DC Fentanyl Citrate (fentaNYL INJ) 250 mcg STK-MED ONCE .ROUTE ; Start 11/10/16 at 12:48; Stop 11/10/16 at 12:49; Status DC Morphine Sulfate (*morphine INJ PERIprocedure ONLY) 8 mg STK-MED ONCE .ROUTE Last administered on 11/10/16 14:36; Start 11/10/16 at 14:36; Stop 11/10/16 at 14:37; Status DC Bisacodyl (Dulcolax Ec) 10 mg ONCE ONCE PO Last administered on 11/11/16 10: 17; Start 11/11/16 at 07:00; Stop 11/11/16 at 07:04; Status DC Bisacodyl (Dulcolax Supp) 10 mg ONCE ONCE RECTAL Last administered on 10:17; Start 11/11/16 at 07:00; Stop 11/11/16 at 07:04; Status DC Sodium Chloride 250 ml @ 15 mls/hr ONCE ONCE IV Last administered on 11:19; Start 11/11/16 at 11:15; Stop 11/12/16 at 03:54; Status DC Furosemide (Lasix Inj) 20 mg ONCE ONCE IV ; Start 11/11/16 at 11:15; Stop 11/11 at 11:16; Status Cancel Furosemide (Lasix Inj) 20 mg ONCE ONCE IV Last administered on 11/12/16t 11:18 ; Start 11/12/16 at 11:00; Stop 11/12/16 at 11:01; Status DC Albuterol/ Ipratropium (Duoneb Neb) 1 ampule Q4HR NEB PRN NEB wheezing; Start 11/12/16 at 13:15 Lactated Ringer's 1,000 ml @ 30 mls/hr Q24H PRN IV SEE LABEL COMMENTS; Start at 05:00; Stop 11/16/16 at 04:59; Status Cancel Sodium Chloride 500 ml @ 30 mls/hr [id number] PRN IV SEE LABEL COMMENTS; Start at 05:00; Stop 11/16/16 at 04:59; Status DC Metoprolol Tartrate (Lopressor) 25 mg GRID OPERATOR PRN PO SEE LABEL COMMENTS; Start 11/13/16 at 05:00; Stop 11/16/16 at 04:59; Status DC Povidone Iodine (Betadine 5% Antisepsis Kit) 1 applic GRID OPERATOR PRN EACH NARE SEE LABEL COMMENTS; Start 11/13/16 at 05:00; Stop 11/16/16 at 04:59; Status DC Chlorhexidine Gluconate (Chlorhexidine 2% Cloth) 3 pack GRID OPERATOR PRN TOPICAL SEE LABEL COMMENTS; Start 11/13/16 at 05:00; Stop 11/16/16 at 04:59; Status DC Lidocaine HCl (Xylocaine 2% Jelly) 30 applic STK-MED ONCE .ROUTE ; Start at 07:15; Stop 11/13/16 at 07:16; Status DC Mineral Oil (Muri-Lube Oil) 10 ml STK-MED ONCE .ROUTE ; Start 11/13/16 at 07:15 ; Stop 11/13/16 at 07:16; Status DC Gentamicin Sulfate (Gentamicin Inj) 240 mg STK-MED ONCE .ROUTE Last administered on 11/13/16t 08:20; Start 11/13/16 at 07:15; Stop 11/13/16 at 07:16 ; Status DC Albuterol Sulfate (Albuterol Neb) 2.5 mg STK-MED ONCE .ROUTE ; Start 11/13/16 at 07:34; Stop 11/13/16 at 07:35; Status DC Dexamethasone Sodium Phosphate (Decadron Inj) 4 mg STK-MED ONCE .ROUTE ; Start 11/13/16 at 07:36; Stop 11/13/16 at 07:37; Status DC Famotidine (Pepcid Inj) 20 mg STK-MED ONCE .ROUTE ; Start 11/13/16 at 07:36; Stop 11/13/16 at 07:37; Status DC Albuterol/ Ipratropium (Duoneb Neb) 1 ampule STK-MED ONCE .ROUTE Last administered on 11/13/16 07:50; Start 11/13/16 at 07:47; Stop 11/13/16 at 07:48 ; Status DC Lactated Ringer's 1,000 ml @ 100 mls/hr Q10H IV Last administered on 12:14; Start 11/13/16 at 08:42; Stop 11/18/16 at 16:33; Status DC Cefazolin Sodium/ Dextrose 50 ml @ 100 mls/hr Q8H IV Last administered on 04:43; Start 11/13/16 at 12:00; Stop 11/20/16 at 11:59; Status DC Gentamicin Sulfate/Sodium Chloride 100 ml @ 200 mls/hr Q8H IV Last administered on 11/16/16 09:14; Start 11/13/16 at 18:00; Stop 11/16/16 at 17:59 ; Status DC Midazolam HCl (Versed Inj) 2 mg STK-MED ONCE .ROUTE ; Start 11/13/16 at 09:25; Stop 11/13/16 at 09:26; Status DC Fentanyl Citrate (fentaNYL INJ) 250 mcg STK-MED ONCE .ROUTE ; Start 11/13/16 at 09:25; Stop 11/13/16 at 09:26; Status DC Zolpidem Tartrate (Ambien) 5 mg HS PRN PO Insomnia Last administered on 22:24; Start 11/14/16 at 11:00 Trazodone HCl (Desyrel) 100 mg HS PO Last administered on 01/07/17 20:56; Start 11/14/16 at 21:00 Morphine Sulfate (Oramorph Sr) 15 mg Q12HR PO Last administered on 11/18/16 10: 00; Start 11/16/16 at 21:00; Stop 11/18/16 at 16:36; Status DC Morphine Sulfate (Oramorph Sr) 15 mg ONCE ONCE PO Last administered on 12:32; Start 11/16/16 at 10:15; Stop 11/16/16 at 10:24; Status DC Gabapentin (Neurontin) 600 mg TID PO Last administered on 01/08/17 08:15; Start 11/16/16 at 13:00 Sodium Chloride 1,000 ml @ 999 mls/hr BOLUS ONCE IV Last administered on 17:22; Start 11/18/16 at 16:45; Stop 11/18/16 at 17:45; Status DC Morphine Sulfate (Oramorph Sr) 30 mg Q12HR PO Last administered on 11/29/16 09 :24; Start 11/18/16 at 21:00; Stop 11/29/16 at 14:26; Status DC Morphine Sulfate (Morphine Inj) 6 mg Q4H PRN IV PUSH PAIN SCALE 5 TO 10 Last administered on 11/19/16 05:59; Start 11/18/16 at 16:45; Stop 11/20/16 at 00:46; Status DC Morphine Sulfate (Morphine Inj) 3 mg Q3H PRN IV PUSH PAIN SCALE 1 TO 4 Last administered on 11/19/16 16:36; Start 11/18/16 at 16:45; Stop 11/20/16 at 00:46; Status DC Sodium Chloride 1,000 ml @ 125 mls/hr Q8H IV Last administered on 11/19/16 16: 15; Start 11/19/16 at 00:15; Stop 11/19/16 at 19:21; Status DC Sodium Chloride 500 ml @ 500 mls/hr BOLUS ONCE IV Last administered on 00:15; Start 11/19/16 at 00:15; Stop 11/19/16 at 01:14; Status DC Nystatin (Mycostatin Powder) 1 applic Q12HR TOPICAL Last administered on 08:54; Start 11/19/16 at 21:00; Stop 11/28/16 at 13:46; Status DC Acetaminophen/ Hydrocodone Bitart ([place] 7.5-325 Mg) 1 tab Q4H PRN PO PAIN SCALE 1 TO 4; Start 11/20/16 at 00:45; Stop 11/28/16 at 13:46; Status DC Acetaminophen/ Hydrocodone Bitart ([place] 10-325 Mg) 1 tab Q4H PRN PO PAIN SCALE 3-5 Last administered on 12/23/16 08:58; Start 11/20/16 at 00:45 Hydromorphone HCl (Dilaudid Pf Inj) 1 mg Q4H PRN IV PUSH BREAKTHROUGH PAIN Last administered on 12/17/16 10:38; Start 11/20/16 at 00:45; Stop 12/18/16 at 10:47; Status DC Propranolol HCl (Inderal) 40 mg Q12HR PO Last administered on 12/08/16 08:01; Start 11/22/16 at 21:00; Stop 12/08/16 at 10:00; Status DC Lactated Ringer's 1,000 ml @ 30 mls/hr Q24H PRN IV SEE LABEL COMMENTS; Start at 02:45; Stop 11/27/16 at 02:44; Status DC Sodium Chloride 500 ml @ 30 mls/hr [id number] PRN IV SEE LABEL COMMENTS; Start 11/24/16 at 02:45; Stop 11/27/16 at 02:44; Status DC Povidone Iodine (Betadine 5% Antisepsis Kit) 1 applic GRID OPERATOR PRN EACH NARE SEE LABEL COMMENTS; Start 11/24/16 at 02:45; Stop 11/27/16 at 02:44; Status DC Chlorhexidine Gluconate (Chlorhexidine 2% Cloth) 3 pack GRID OPERATOR PRN TOPICAL SEE LABEL COMMENTS; Start 11/24/16 at 02:45; Stop 11/27/16 at 02:44; Status DC Insulin Human Regular (NovoLIN R INJ) See Protocol Table ... GRID OPERATOR PRN SQ SEE PROTOCOL TABLE; Start 11/24/16 at 02:45; Stop 11/27/16 at 02:44; Status DC Prochlorperazine Edisylate (Compazine Inj) 10 mg Q8H PRN IV PUSH NAUSEA/ VOMITING Last administered on 11/25/16 18:00; Start 11/25/16 at 16:15 Sodium Chloride 500 ml @ 500 mls/hr BOLUS ONCE IV Last administered on 18:06; Start 11/25/16 at 17:00; Stop 11/25/16 at 17:59; Status DC Gentamicin Sulfate (Gentamicin Inj) 240 mg STK-MED ONCE .ROUTE Last administered on 11/28/16 10:42; Start 11/28/16 at 07:18; Stop 11/28/16 at 07:19 ; Status DC Vancomycin HCl (Vancomycin Inj) 1,000 mg STK-MED ONCE .ROUTE Last administered on 12/09/16 15:25; Start 11/28/16 at 07:38; Stop 11/28/16 at 07:39; Status DC Cefazolin Sodium/ Dextrose 50 ml @ As Directed STK-MED ONCE .ROUTE Last administered on 12/09/16 15:20; Start 11/28/16 at 07:38; Stop 11/28/16 at 07:39 ; Status DC Sodium Chloride 250 ml @ As Directed STK-MED ONCE .ROUTE ; Start 11/28/16 at 07 :39; Stop 11/28/16 at 07:40; Status DC Fentanyl Citrate (fentaNYL INJ) 250 mcg STK-MED ONCE .ROUTE ; Start 11/28/16 at 10:15; Stop 11/28/16 at 10:16; Status DC Cefazolin Sodium (Ancef Inj) 1,000 mg STK-MED ONCE .ROUTE Last administered on 11/28/16 10:31; Start 11/28/16 at 10:23; Stop 11/28/16 at 10:24; Status DC Lactated Ringer's 1,000 ml @ 100 mls/hr Q10H IV ; Start 11/28/16 at 10:59; Stop 12/03/16 at 09:16; Status DC Cefazolin Sodium/ Dextrose 50 ml @ 100 mls/hr Q8H IV Last administered on 12/01 06:46; Start 11/28/16 at 15:00; Stop 12/01/16 at 14:59; Status DC Magnesium Hydroxide (Milk Of Magnesia Liq) 30 ml Q12H PRN PO MILD - MODERATE CONSTIPATION Last administered on 12/26/16 10:08; Start 11/28/16 at 11:30 Sennosides (Senokot) 17.2 mg Q12H PRN PO MODERATE - SEVERE CONSTIPATION Last administered on 12/25/16 09:48; Start 11/28/16 at 11:30 Bisacodyl (Dulcolax Supp) 10 mg DAILY PRN RECTAL SEVERE CONSITIPATION Last administered on 12/11/16 12:30; Start 11/28/16 at 11:30 Albuterol Sulfate (*ALBUTEROL NEB PERIprocedure ONLY) 2.5 mg STK-MED ONCE NEB Last administered on 11/28/16 11:38; Start 11/28/16 at 11:38; Stop 11/28/16 at 11:39; Status DC Dexamethasone Sodium Phosphate (Decadron Inj) 4 mg STK-MED ONCE .ROUTE ; Start 11/28/16 at 11:51; Stop 11/28/16 at 11:52; Status DC Dexamethasone Sodium Phosphate (Decadron Inj) 4 mg NOW ONCE IV Last administered on 11/28/16 12:00; Start 11/28/16 at 12:00; Stop 11/28/16 at 12:01 ; Status DC Miscellaneous Information ALL NURSING DEPARTME... UNSCH PRN .XX SEE LABEL COMMENTS; Start 11/28/16 at 11:22; Stop 11/29/16 at 11:21; Status DC Morphine Sulfate (*morphine INJ PERIprocedure ONLY) 8 mg STK-MED ONCE .ROUTE Last administered on 11/28/16 12:01; Start 11/28/16 at 12:01; Stop 11/28/16 at 12:02; Status DC Acetaminophen/ Hydrocodone Bitart ([place] 10-325 Mg) 1.5 tab Q4H PRN PO pain 6- 10 Last administered on 12/23/16 17:35; Start 11/28/16 at 15:00; Stop 12/23/16 at 18:38; Status DC Nystatin (Mycostatin Cream) 1 applic Q6HR TOPICAL Last administered on 05:00; Start 11/28/16 at 14:00; Stop 12/16/16 at 13:46; Status DC Morphine Sulfate (Oramorph Sr) 30 mg Q8HR PO Last administered on 12/03/16 06: 09; Start 11/29/16 at 22:00; Stop 12/03/16 at 12:16; Status DC Cetirizine HCl (ZyrTEC) 10 mg HS PO Last administered on 12/07/16 20:03; Start 12/01/16 at 21:00; Stop 12/08/16 at 20:59; Status DC Fluticasone Propionate (Flonase Jerzy Spr) 2 spray DAILY EACH NARE Last administered on 12/15/16 08:54; Start 12/01/16 at 11:00; Stop 12/15/16 at 10:59 ; Status DC Folic Acid (Folate) 1 mg DAILY PO Last administered on 01/08/17 08:15; Start 12/03/16 at 09:00 Morphine Sulfate (Oramorph Sr) 30 mg Q8HR PO Last administered on 01/08/17 05: 28; Start 12/03/16 at 14:00 Lactobacillus Acidophilus (Lactinex) 1 tab TID PO Last administered on 08:10; Start 12/04/16 at 09:00; Stop 12/05/16 at 09:26; Status DC Enoxaparin Sodium (Lovenox Inj) 40 mg DAILY SQ Last administered on 01/08/17 08:15; Start 12/05/16 at 09:00 Al Hydrox/Mg Hydrox/Simethicone (Mag-Al Plus Susp Liq) 30 ml ONCE ONCE PO Last administered on 12/04/16 11:55; Start 12/04/16 at 11:45; Stop 12/04/16 at 11:50; Status DC Al Hydrox/Mg Hydrox/Simethicone (Mag-Al Plus Susp Liq) 30 ml Q6HR PRN PO HEARTBURN, INDIGESTION Last administered on 01/06/17 11:29; Start 12/04/16 at 18:00 Sucralfate (Carafate Liq) 1 gm QID PO Last administered on 12/16/16 13:41; Start 12/05/16 at 09:00; Stop 12/16/16 at 13:43; Status DC Lactobacillus Acidophilus (Lactinex) 1 tab BID PO Last administered on 09:36; Start 12/05/16 at 21:00; Stop 12/18/16 at 10:47; Status DC Polyethylene Glycol (Miralax) 17 gm DAILY PRN PO CONSTIPATION; Start 12/08/16 at 10:00; Stop 12/11/16 at 15:18; Status DC Propranolol HCl (Inderal) 20 mg Q12HR PO Last administered on 12/09/16t 20:34; Start 12/08/16 at 21:00; Stop 12/10/16 at 07:34; Status DC Lactated Ringer's 1,000 ml @ 30 mls/hr Q24H PRN IV SEE LABEL COMMENTS; Start at 01:30; Stop 12/12/16 at 01:29; Status DC Sodium Chloride 500 ml @ 30 mls/hr [id number] PRN IV SEE LABEL COMMENTS; Start at 01:30; Stop 12/12/16 at :29; Status DC Povidone Iodine (Betadine 5% Antisepsis Kit) 1 applic GRID OPERATOR PRN EACH NARE SEE LABEL COMMENTS; Start 12/09/16 at 01:30; Stop 12/12/16 at 01:29; Status DC Chlorhexidine Gluconate (Chlorhexidine 2% Cloth) 3 pack GRID OPERATOR PRN TOPICAL SEE LABEL COMMENTS; Start 12/09/16 at 01:30; Stop 12/12/16 at 01:29; Status DC Insulin Human Regular (NovoLIN R INJ) See Protocol Table ... GRID OPERATOR PRN SQ SEE PROTOCOL TABLE; Start 12/09/16 at 01:30; Stop 12/12/16 at 01:29; Status DC Bupivacaine HCl/ Epinephrine Bitart (Sensorcaine-Epinephrine 0.25% Inj) 50 ml STK-MED ONCE .ROUTE ; Start 12/09/16 at 14:07; Stop 12/09/16 at 14:08; Status DC Mineral Oil (Muri-Lube Oil) 10 ml STK-MED ONCE .ROUTE ; Start 12/09/16 at 14:07 ; Stop 12/09/16 at 14:08; Status DC Gentamicin Sulfate (Gentamicin Inj) 240 mg STK-MED ONCE .ROUTE Last administered on 12/09/16 15:31; Start 12/09/16 at 14:07; Stop 12/09/16 at 14:08 ; Status DC Vancomycin HCl (Vancomycin Inj) 1,000 mg STK-MED ONCE .ROUTE ; Start 12/09/16 at 15:06; Stop 12/09/16 at 15:07; Status DC Cefazolin Sodium/ Dextrose 50 ml @ As Directed STK-MED ONCE .ROUTE ; Start 12/09 at 15:06; Stop 12/09/16 at 15:07; Status DC Lactated Ringer's 1,000 ml @ 100 mls/hr Q10H IV ; Start 12/09/16 at 15:57; Stop 12/16/16 at 13:45; Status DC Cefazolin Sodium/ Dextrose 50 ml @ 100 mls/hr Q8H IV Last administered on 12/16 13:42; Start 12/09/16 at 20:00; Stop 12/16/16 at 19:59; Status DC Gentamicin Sulfate/Sodium Chloride 100 ml @ 200 mls/hr Q8H IV Last administered on 12/12/16 12:25; Start 12/09/16 at 21:00; Stop 12/12/16 at 20:59 ; Status DC Morphine Sulfate (*morphine INJ PERIprocedure ONLY) 8 mg STK-MED ONCE .ROUTE Last administered on 12/09/16 16:32; Start 12/09/16 at 16:32; Stop 12/09/16 at 16:33; Status DC Fentanyl Citrate (fentaNYL INJ) 250 mcg STK-MED ONCE .ROUTE ; Start 12/09/16 at 16:33; Stop 12/09/16 at 16:34; Status DC Miscellaneous Information ALL NURSING DEPARTME... UNSCH PRN .XX SEE LABEL COMMENTS; Start 12/09/16 at 16:20; Stop 12/10/16 at 16:19; Status DC Morphine Sulfate (*morphine INJ PERIprocedure ONLY) 8 mg STK-MED ONCE .ROUTE Last administered on 12/09/16 17:01; Start 12/09/16 at 17:01; Stop 12/09/16 at 17:02; Status DC Propranolol HCl (Inderal) 10 mg Q12HR PO Last administered on 12/13/16 09:42; Start 12/10/16 at 09:00; Stop 12/13/16 at 10:32; Status DC Menthol/Methyl Salicylate (Aleks Daniels Oint) 1 applic UNSCH PRN TOPICAL arthritic pain Last administered on 12/12/16 17:51; Start 12/11/16 at 15:30 Propranolol HCl (Inderal) 20 mg Q12HR PO ; Start 12/13/16 at 21:00; Stop at 21:00; Status DC Propranolol HCl (Inderal) 10 mg Q12HR PO Last administered on 01/08/17 08:15; Start 12/13/16 at 21:00 Bacitracin (Baciguent Oint) 1 applic DAILY PRN TOPICAL WOUND VAC DRESSING CHANGE; Start 12/15/16 at 12:30 Sucralfate (Carafate Liq) 1 gm BID PO Last administered on 12/30/16 08:30; Start 12/16/16 at 21:00; Stop 12/30/16 at 20:59; Status DC Lidocaine HCl (Lidoderm 5% Patch.12 Hr) 1 patch DAILY T-DERMAL Last administered on 12/18/16 11:33; Start 12/18/16 at 10:00; Stop 12/19/16 at 19:35 ; Status DC Miscellaneous Information 1 Q24H T-DERMAL ; Start 12/18/16 at 21:00; Stop at 19:35; Status DC Lactobacillus Acidophilus (Lactinex) 1 tab TID PO Last administered on 08:15; Start 12/18/16 at 13:00 Lidocaine HCl (Lidoderm 5% Patch.12 Hr) 1 patch HS T-DERMAL Last administered on 01/03/17 20:55; Start 12/19/16 at 21:00 Miscellaneous Information 1 Q24H T-DERMAL Last administered on 12/24/16 09:00; Start 12/20/16 at 09:00 Propofol (Diprivan 200 Mg/20 ml Inj) 200 mg STK-MED ONCE IV ; Start 11/07/16 at 12:00; Stop 12/23/16 at 10:36; Status DC Ephedrine Sulfate (ePHEDrine/NS 25 MG/5 ML SYR) 50 mg STK-MED ONCE IV ; Start at 12:00; Stop 12/23/16 at 10:36; Status DC Neostigmine Methylsulfate (Prostigmin Inj) 3 mg STK-MED ONCE IV ; Start at 12:00; Stop 12/23/16 at 10:36; Status DC Phenylephrine HCl (Neosynephrine/ NS 1000 Mcg/10ml Syr) 1,000 mcg STK-MED ONCE IV ; Start 11/07/16 at 12:00; Stop 12/23/16 at 10:37; Status DC Ondansetron HCl (Zofran Inj) 4 mg STK-MED ONCE IV PUSH ; Start 11/07/16 at 12:00 ; Stop 12/23/16 at 10:37; Status DC Lactated Ringer's 1,000 ml @ As Directed STK-MED ONCE IV ; Start 11/07/16 at 12 :00; Stop 12/23/16 at 10:37; Status DC Parenteral Electrolytes 1,000 ml @ As Directed STK-MED ONCE IV ; Start at 12:00; Stop 12/23/16 at 10:37; Status DC Propofol (Diprivan 200 Mg/20 ml Inj) 400 mg STK-MED ONCE IV ; Start 11/10/16 at 12:00; Stop 12/23/16 at 12:04; Status DC Phenylephrine HCl (Neosynephrine/ NS 1000 Mcg/10ml Syr) 2,000 mcg STK-MED ONCE IV ; Start 11/10/16 at 12:00; Stop 12/23/16 at 12:04; Status DC Ondansetron HCl (Zofran Inj) 4 mg STK-MED ONCE IV PUSH ; Start 11/10/16 at 12:00 ; Stop 12/23/16 at 12:04; Status DC Lactated Ringer's 1,000 ml @ As Directed STK-MED ONCE IV ; Start 11/10/16 at 12 :00; Stop 12/23/16 at 12:04; Status DC Propofol (Diprivan 200 Mg/20 ml Inj) 200 mg STK-MED ONCE IV ; Start 11/13/16 at 12:00; Stop 12/23/16 at 12:38; Status DC Ephedrine Sulfate (ePHEDrine/NS 25 MG/5 ML SYR) 25 mg STK-MED ONCE IV ; Start at 12:00; Stop 12/23/16 at 12:38; Status DC Phenylephrine HCl (Neosynephrine/ NS 1000 Mcg/10ml Syr) 1,000 mcg STK-MED ONCE IV ; Start 11/13/16 at 12:00; Stop 12/23/16 at 12:38; Status DC Ondansetron HCl (Zofran Inj) 4 mg STK-MED ONCE IV PUSH ; Start 11/13/16 at 12:00 ; Stop 12/23/16 at 12:38; Status DC Lactated Ringer's 1,000 ml @ As Directed STK-MED ONCE IV ; Start 11/13/16 at 12 :00; Stop 12/23/16 at 12:38; Status DC Neostigmine Methylsulfate (Prostigmin Inj) 3 mg STK-MED ONCE IV ; Start at 12:00; Stop 12/23/16 at 12:38; Status DC Propofol (Diprivan 200 Mg/20 ml Inj) 200 mg STK-MED ONCE IV ; Start 11/28/16 at 12:00; Stop 12/23/16 at 12:50; Status DC Ephedrine Sulfate (ePHEDrine/NS 25 MG/5 ML SYR) 25 mg STK-MED ONCE IV ; Start at 12:00; Stop 12/23/16 at 12:50; Status DC Ondansetron HCl (Zofran Inj) 4 mg STK-MED ONCE IV PUSH ; Start 11/28/16 at 12:00 ; Stop 12/23/16 at 12:50; Status DC Propofol (Diprivan 200 Mg/20 ml Inj) 200 mg STK-MED ONCE IV ; Start 12/09/16 at 12:00; Stop 12/23/16 at 14:38; Status DC Ephedrine Sulfate (ePHEDrine/NS 25 MG/5 ML SYR) 50 mg STK-MED ONCE IV ; Start at 12:00; Stop 12/23/16 at 14:38; Status DC Ondansetron HCl (Zofran Inj) 4 mg STK-MED ONCE IV PUSH ; Start 12/09/16 at 12:00 ; Stop 12/23/16 at 14:38; Status DC Acetaminophen/ Hydrocodone Bitart ([place] 10-325 Mg) 2 tab Q4H PRN PO pain 6-10 Last administered on 01/08/17 09:08; Start 12/23/16 at 18:45 Vancomycin HCl 5000 mg/Sodium Chloride 3,000 ml @ 10 mls/hr Q24H PRN IRRIGATION DRESSING CHANGE Last administered on 01/08/17 01:36; Start 12/25/16 at 08:00 Diphenhydramine HCl (Benadryl) 12.5 mg Q4H PRN PO itching Last administered on 12/28/16 07:54; Start 12/25/16 at 16:45; Stop 12/28/16 at 13:48; Status DC Ferrous Sulfate (Ferrous Sulfate) 325 mg BID@12,17 PO Last administered on 01/07 15:49; Start 12/26/16 at 12:00 Ascorbic Acid (Vitamin C) 500 mg BID PO Last administered on 01/08/17 08:15; Start 12/26/16 at 09:00 Pharmacy Profile Note 0 ml @ 0 mls/hr UNSCH OTHER ; Start 12/26/16 at 14:45 Vancomycin HCl 1500 mg/Sodium Chloride 515 ml @ 257.5 mls/ hr Q12H IV Last administered on 12/26/16 20:17; Start 12/26/16 at 17:00; Stop 12/27/16 at 04:54; Status DC Miscellaneous Information SPECIFIC LAB TO BE LEANNA... ONCE ONCE .XX ; Start 12/28 at 04:45; Stop 12/28/16 at 04:46; Status Cancel Vancomycin HCl 1500 mg/Sodium Chloride 515 ml @ 257.5 mls/ hr Q12H IV Last administered on 12/29/16 20:50; Start 12/27/16 at 08:00; Stop 12/29/16 at 20:35 ; Status DC Miscellaneous Information SPECIFIC LAB TO BE LEANNA... ONCE ONCE .XX ; Start 12/28 at 07:45; Stop 12/28/16 at 07:46; Status DC Miscellaneous Information SPECIFIC LAB TO BE LEANNA... ONCE ONCE .XX Last administered on 12/29/16 20:45; Start 12/29/16 at 20:45; Stop 12/29/16 at 20:46 ; Status DC Diphenhydramine HCl (Benadryl) 50 mg Q4H PRN PO itching Last administered on 08:15; Start 12/28/16 at 16:45 Vancomycin HCl 1500 mg/Sodium Chloride 515 ml @ 257.5 mls/ hr Q12H IV Last administered on 01/03/17 08:51; Start 12/29/16 at 21:00; Stop 01/03/17 at 22:00 ; Status DC Miscellaneous Information SPECIFIC LAB TO BE DRAWN:VANCO TROUGH DATE TO BE DR... ONCE ONCE .XX Last administered on 12/31/16 08:45; Start 12/31/16 at 08 :45; Stop 12/31/16 at 08:46; Status DC Miscellaneous Information SPECIFIC LAB TO BE LEANNA... ONCE ONCE .XX ; Start 01/03 at 08:45; Stop 01/03/17 at 08:46; Status DC Fluticasone Propionate (Flonase Jerzy Spr) 1 spray BID NASAL Last administered on 01/08/17 08:19; Start 01/02/17 at 21:00 Miscellaneous Information SPECIFIC LAB TO BE DRAWN:VANCOMY... ONCE ONCE .XX Last administered on 01/03/17 20:45; Start 01/03/17 at 20:45; Stop 01/03/17 at 20:46; Status DC Vancomycin HCl 1500 mg/Sodium Chloride 515 ml @ 257.5 mls/ hr Q12H IV Last administered on 01/08/17 09:08; Start 01/03/17 at 22:00 Miscellaneous Information SPECIFIC LAB TO BE LEANNA... ONCE ONCE .XX ; Start 01/04 at 21:45; Stop 01/04/17 at 21:46; Status DC Miscellaneous Information SPECIFIC LAB TO BE LEANNA... ONCE ONCE .XX ; Start 01/05 at 21:45; Stop 01/05/17 at 21:46; Status DC Calcium Carbonate (Tums Chew) 500 mg Q12HR CHEW Last administered on 01/08/17 08:15; Start 01/05/17 at 11:30 A/P Assessment and Plan A/P Bilateral open tibia-fibula fractures Left tibial plateau fracture - Open fractures have been surgically repaired, right side has external fixation - Continue wound VAC left leg as per orthopedic surgery recommendations. Undergoing serial wound vac changes per ortho - plan for wound vac change Thursday or Thursday - left tibial plateau fracture treated nonoperatively - Pin care BID to right leg - NWB BLEs - Lortab dose when necessary, Oramorph 30mg every 8 hours. -Most likely patient will need 2-3 weeks more hospitalization for irrigation with vancomycin. MRSA - wound culture 12/23 positive for MRSA -on Vanco- evaluated by ID Acute blood loss anemia JAMAR - Related to trauma vs post op blood loss - Status post transfusion of 2 units of packed red blood cells in 11/12/16. - on iron supplementation daily. - hemoglobin stable - monitor CBC as indicated Coronary artery disease with h/o previous CABG - Appears stable. Patient is asymptomatic. - Continue propranolol and statin - ASA 81mg daily - Clonidine PRN Hypertension - controlled - MARGIE inhibitor held due to hypotension. - Narcotics seem to have a depressive affect on this patient, however blood pressure has much improved after the patient was taken off IV morphine Diabetes mellitus type 2 - blood sugars well controlled - accu checks discontinued Alcohol abuse Transaminitis, resolved - AST and ALT now within normal range. - Continue with daily thiamine and folic acid - Alcohol cessation recommended Tobacco abuse - Cessation recommended. Chronic essential tremor - Continue Propranolol at lower dose due to bradycardia with holding parameters, HR <55 Allergic rhinitis - Flonase Indigestion -Patient on Protonix and Maalox. GI prophylaxis: PPI Blaine Corrales MD Jan 08, 2017 11:42
[2017-01-08 11:44] VITALS: BP 101/61; PULSE 61; RESP 17; TEMP 96.7; O2SAT 94
[2017-01-08] MEDS: FERROUS SULFATE 325 MG (65 MG ELEMENTAL IRON) TAB PO SCH ×2 (11:47→15:38)
[2017-01-08 15:38] VITALS: BP 109/59; PULSE 65; RESP 17; TEMP 97.6; O2SAT 96
[2017-01-08 20:35] VITALS: BP 129/61; PULSE 68; RESP 18; TEMP 97.6; O2SAT 98
[2017-01-08] MEDS: traZODone HCL 100 MG TAB PO SCH (20:58)
[2017-01-08] MEDS: PRAVASTATIN SOD 80 MG TAB PO SCH (20:59)
[2017-01-08] MEDS: MAGNESIUM HYDROXIDE SUSP 30 ML CUP PO SCH (21:00)
[2017-01-08] MEDS: LIDOCAINE HCL 5% PATCH T-DERMAL SCH (21:00)
[2017-01-09] MEDS: ACETAMINOPHEN/HYDROcodone 325 MG/10 MG TAB PO PRN ×4 (02:35→22:20)
[2017-01-09 04:50] VITALS: BP 102/58; PULSE 72; RESP 17; TEMP 98.3; O2SAT 95
[2017-01-09] MEDS: MORPHINE SULFATE 30 MG CONTROLLED RELEASE TAB PO SCH ×3 (05:40→22:35)
--- NOTE | 2017-01-09 06:28 | PD.ORT.PN ---
Subjective Subjective Remarks s/p left tibia IMN and right tibia ORIF with exfix s/p left tibia soleus flap s/p left tibial plateau fracture doing well. pain controlled. ambulating with wheelchair. cultures yesterday came back positive or MRSA from wound on leg Objective Vitals Vital Signs Date Time Temp Pulse Resp B/P (MAP) Pulse Ox O2 Delivery O2 Flow Rate FiO2 01/09/17 04:50 98.3 72 17 102/58 (73) 95 01/08/17 20:35 97.6 68 18 129/61 (83) 98 01/08/17 15:38 97.6 65 17 109/59 (76) 96 01/08/17 11:44 96.7 61 17 101/61 (74) 94 01/08/17 08:00 97.1 62 18 125/69 (87) 98 I/O 01/08/17 01/08/17 01/08/17 01/09/17 01/09/17 01/09/17 07:00 15:00 23:00 07:00 15:00 23:00 Intake Total 515 ml 800 ml 1235 ml Output Total 1125 ml 1975 ml 150 ml Balance -610 ml -1175 ml 1085 ml Intake Oral 0 ml 800 ml 720 ml IV Total 515 ml 515 ml Output Urine Total 850 ml 1700 ml Drainage Total 275 ml 275 ml 150 ml # Voids 2 2 # Bowel Movements 0 2 0 Result Diagram: 01/07/17 0745 Imaging Last 24 hours Impressions Pelvis X-Ray 11/07/16 1355 Signed Impressions: Service Date/Time: Monday, November 07, 2016 13:34 - CONCLUSION: No acute disease. Behzad Finch Jr., MD Chest X-Ray 11/07/16 1355 Signed Impressions: Service Date/Time: Monday, November 07, 2016 13:34 - CONCLUSION: No acute disease. Jac Gonzales MD Objective Remarks RLE: Dressings clean and dry. intact. with full sensation and motor function. + exfix. pin sites--first metatarsal pin is loose, other pins appear to be clean and dry LLE: Wound VAC intact. Good seal. no sensation over medial foot. slight stiffness with dorsiflexion. Assessment & Plan Assessment and Plan 1) Right Open Tibia Fracture s/p exfix revision with ORIF 2) Left Open Tibia Fracture s/p Soleus muscle flap with IMN and removal of exfix 3) left tibia plateau fracture treated nonoperatively 4) s/p vac change with collagen grafting 01/06/17 -NWB BLE -pin care BID right leg -veraflow vac changed on left leg -vac settings: -soak time: 3min of 10 CCs -suction: 15min @ 100mmHg -maintain vac at all times -surgery today for STSG of left leg Jef Steve Jan 09, 2017 06:28
[2017-01-09] MEDS: GABAPENTIN 300 MG CAP PO SCH ×4 (08:19→17:47)
[2017-01-09] MEDS: PROPRANOLOL HCL 10 MG TAB PO SCH ×2 (08:19→22:21)
[2017-01-09] MEDS: PANTOPRAZOLE SOD 40 MG DELAYED RELEASE TAB PO SCH (08:19)
[2017-01-09] MEDS: CALCIUM CARBONATE 500 MG CHEWABLE TAB CHEW SCH ×2 (08:19→22:21)
[2017-01-09] MEDS: LACTOBACILLUS ACIDOPHILUS TAB PO SCH ×3 (08:19→17:47)
[2017-01-09] MEDS: CALCIUM/VITAMIN D 250 MG/125 U TAB PO SCH ×3 (08:19→17:47)
[2017-01-09] MEDS: ASPIRIN 81 MG CHEW TAB CHEW SCH (08:20)
[2017-01-09] MEDS: FOLIC ACID 1 MG TAB PO SCH (08:20)
[2017-01-09] MEDS: THIAMINE HCL 100 MG TAB PO SCH (08:20)
[2017-01-09] MEDS: DOCUSATE SODIUM 50 MG/SENNA 8.6 MG TAB PO SCH ×2 (08:20→22:21)
[2017-01-09] MEDS: ASCORBIC ACID 500 MG TAB PO SCH ×2 (08:20→22:21)
[2017-01-09] MEDS: SODIUM CHLORIDE 0.9% FLUSH 10 ML FLUSH IV FLUSH SCH ×2 (08:21→22:21)
[2017-01-09 08:24] VITALS: BP 99/60; PULSE 66; RESP 16; TEMP 97.9; O2SAT 96
[2017-01-09] MEDS: FLUTICASONE PROPIONATE 50 MCG/ACT 16 GM NASAL SPRAY NASAL SCH ×2 (09:00→22:22)
[2017-01-09] MEDS: NEOMYCIN/POLYMYXIN/BACITRACIN OINT 15 GM TUBE TOPICAL SCH (09:00)
[2017-01-09] MEDS: REMOVE OLD LIDOCAINE PATCH T-DERMAL SCH (09:00)
[2017-01-09] MEDS: ENOXAPARIN SODIUM 40 MG/0.4 ML SYRINGE SQ SCH (09:27)
[2017-01-09] MEDS: VANCOMYCIN 1,500 MG/NS 500 ML IV SCH ×4 (09:39→22:22)
--- NOTE | 2017-01-09 10:06 | HHI.PR ---
Subjective Remarks in no distress. no fever. pain is fairly controlled. no new complaints. Objective Vitals Vital Signs Date Time Temp Pulse Resp B/P (MAP) Pulse Ox O2 Delivery O2 Flow Rate FiO2 01/09/17 08:24 97.9 66 16 99/60 (73) 96 01/09/17 04:50 98.3 72 17 102/58 (73) 95 01/08/17 20:35 97.6 68 18 129/61 (83) 98 01/08/17 15:38 97.6 65 17 109/59 (76) 96 01/08/17 11:44 96.7 61 17 101/61 (74) 94 I/O 01/08/17 01/08/17 01/08/17 01/09/17 01/09/17 01/09/17 07:00 15:00 23:00 07:00 15:00 23:00 Intake Total 515 ml 800 ml 1235 ml 0 ml Output Total 1125 ml 1975 ml 150 ml 500 ml Balance -610 ml -1175 ml 1085 ml -500 ml Intake Oral 0 ml 800 ml 720 ml 0 ml IV Total 515 ml 515 ml Output Urine Total 850 ml 1700 ml 500 ml Drainage Total 275 ml 275 ml 150 ml # Voids 2 2 2 # Bowel Movements 0 2 0 0 Result Diagram: 01/09/17 0627 Imaging Last Impressions Tibia/Fibula X-Ray 01/01/17 0000 Signed Impressions: Service Date/Time: December 09:33 - CONCLUSION: There are no complications. Paul Fuentes MD Knee X-Ray 01/01/17 0000 Signed Impressions: Service Date/Time: December 09:37 - CONCLUSION: Lateral tibial plateau fracture without involvement of the articulating surface. Paul Fuentes MD Foot X-Ray 12/27/16 0000 Signed Impressions: Service Date/Time: Tuesday, December 27, 2016 16:50 - CONCLUSION: Distal tibia and fibula fractures with internal fixation hardware. Samir Massey MD Ankle X-Ray 12/17/16 0000 Signed Impressions: Service Date/Time: Saturday, December 17, 2016 10:13 - CONCLUSION: Intramedullary mariano in tibia. Severely comminuted fibular fracture. Arvind Flores MD FACR Gall Bladder Ultrasound 12/05/16 0000 Signed Impressions: Service Date/Time: Monday, December 05, 2016 08:38 - CONCLUSION: Unremarkable exam. Gallbladder is within normal limits with no evidence of cholelithiasis. Ronald Rao MD Abdomen X-Ray 12/04/16 0000 Signed Impressions: Service Date/Time: , December 04, 2016 10:42 - CONCLUSION: Unremarkable bowel gas pattern. Ronald Rao MD Chest X-Ray 11/20/16 0000 Signed Impressions: Service Date/Time: November 17:08 - CONCLUSION: 1. No acute abnormality or significant interval change. Sukhi Stevens MD Pelvis X-Ray 11/07/16 1355 Signed Impressions: Service Date/Time: Monday, November 07, 2016 13:34 - CONCLUSION: No acute disease. Behzad Finch Jr., MD Objective Remarks GENERAL: This is a well-nourished, well-developed patient, in no apparent distress. CARDIOVASCULAR: Regular rate and regular rhythm without murmurs, gallops, or rubs. RESPIRATORY: Clear to auscultation. Breath sounds equal bilaterally. No wheezes , rales, or rhonchi. GASTROINTESTINAL: Abdomen soft, non-tender, nondistended. Normal, active bowel sounds MUSCULOSKELETAL: external fixator on the right leg- left leg covered with clean dressing. NEURO: Alert & Oriented x4 to person, place, time, situation. Moves all ext x4 Procedures 1.s/p I&D with ex fix application bilateral tibias s/p wound vac application left tibia 2.With the assistance of RN, under sterile technique the avulsed skin of the right middle finger was clipped. No bleeding noted. Patient gave consent 3.Open reduction internal fixation of right distal tibia and fibula fractures Nonoperative treatment left tibial plateau fracture Irrigation and debridement of left tibia shaft fracture, removal external fixation, soleus muscle rotational flap, intramedullary nail fixation left tibia , application of wound VAC dressing 4.7 Irrigation and debridement of left tibia, application wound VAC dressing 5. 8 Irrigation and debridement of left open tibia fracture with application of wound VAC dressing 6. 8 wound vac change at the bedside 7. 8 wound vac change at the bedside 8. 8 wound vac change at the bedside 9. 8 I&D left tibia, application of wound VAC dressing and application of AlloMax allograft dermal matrix Medications and IVs Current Medications Cefazolin Sodium/ Dextrose 50 ml @ As Directed STK-MED ONCE .ROUTE Last administered on 11/13/16 08:09; Start 11/07/16 at 13:58; Stop 11/07/16 at 13:59 ; Status DC Diphtheria/ Tetanus/Acell Pertussis (Boostrix Inj) 0.5 ml STK-MED ONCE IM ; Start 11/07/16 at 13:58; Stop 11/07/16 at 13:59; Status DC Morphine Sulfate (Morphine Inj) 8 mg STK-MED ONCE .ROUTE ; Start 11/07/16 at 14: 01; Stop 11/07/16 at 14:02; Status DC Hydromorphone HCl (Dilaudid Pf Inj) 1 mg STK-MED ONCE .ROUTE Last administered on 11/07/16 19:15; Start 11/07/16 at 14:05; Stop 11/07/16 at 14:06; Status DC Lactated Ringer's 1,000 ml @ 100 mls/hr Q10H IV ; Start 11/07/16 at 14:22; Stop 11/07/16 at 19:02; Status DC Sodium Chloride (NS Flush) 2 ml UNSCH PRN IV FLUSH FLUSH AFTER USING IV ACCESS Last administered on 12/11/16 11:31; Start 11/07/16 at 14:30 Sodium Chloride (NS Flush) 2 ml BID IV FLUSH Last administered on 01/09/17 08: 21; Start 11/07/16 at 21:00 Ondansetron HCl (Zofran Inj) 4 mg Q6H PRN IV NAUSEA OR VOMITING Last administered on 12/04/16 06:13; Start 11/07/16 at 14:30 Pantoprazole Sodium (Protonix Inj) 40 mg Q24H IV Last administered on 20:00; Start 11/07/16 at 17:00; Stop 11/08/16 at 08:09; Status DC Docusate Sodium (Colace) 100 mg BID PO ; Start 11/07/16 at 21:00; Stop 11/08/16 at 13:04; Status DC Cefazolin Sodium 1000 mg/Sodium Chloride 100 ml @ 200 mls/hr Q8H IV ; Start at 22:00; Stop 11/07/16 at 22:00; Status DC Miscellaneous Information (Post-op Orders (for Pharmacy)) STAT ONCE XX ; Start 11/07/16 at 14:30; Stop 11/07/16 at 15:39; Status DC Oxycodone/ Acetaminophen (Percocet 10-325 Mg) 1 tab Q4H PRN PO 3-5; Start 11/07 at 14:30; Stop 11/07/16 at 19:03; Status DC Hydromorphone HCl (Dilaudid Pf Inj) 1 mg Q2H PRN IV Pain 6-10; Start 11/07/16 at 14:30; Stop 11/07/16 at 19:11; Status DC Naloxone HCl (Narcan Inj) 0.4 mg UNSCH PRN IV SEE LABEL COMMENTS; Start at 14:30 Gentamicin Sulfate (Gentamicin Inj) 80 mg Q8H IM ; Start 11/07/16 at 14:30; Stop 11/07/16 at 15:37; Status DC Hydromorphone HCl (Dilaudid Pf Inj) 0.5 mg TANK CALIBRATOR DOSING PRN IV PUSH pain; Start 11/07/16 at 14:45; Stop 11/07/16 at 19:11; Status DC Gentamicin Sulfate/Sodium Chloride 100 ml @ 200 mls/hr Q8H IV ; Start 11/07/16 at 17:00; Status Cancel Miscellaneous Information (Post-op Orders (for Pharmacy)) UNSCH X1 XX ; Start 11/07/16 at 15:45; Stop 11/08/16 at 06:00; Status DC Cefazolin Sodium (Ancef Inj) 1,000 mg STK-MED ONCE .ROUTE Last administered on 11/07/16 16:26; Start 11/07/16 at 15:48; Stop 11/07/16 at 15:49; Status DC Gentamicin Sulfate (Gentamicin Inj) 80 mg STK-MED ONCE .ROUTE Last administered on 11/07/16 16:26; Start 11/07/16 at 15:49; Stop 11/07/16 at 15:50 ; Status DC Acetaminophen (Ofirmev Inj) 1,000 mg STK-MED ONCE IV ; Start 11/07/16 at 15:56; Stop 11/07/16 at 15:57; Status DC Midazolam HCl (Versed Inj) 2 mg STK-MED ONCE .ROUTE ; Start 11/07/16 at 15:56; Stop 11/07/16 at 15:57; Status DC Famotidine (Pepcid Inj) 20 mg STK-MED ONCE .ROUTE ; Start 11/07/16 at 15:56; Stop 11/07/16 at 15:57; Status DC Gentamicin Sulfate (Gentamicin Inj) 240 mg STK-MED ONCE IRRIGATION Last administered on 11/07/16 16:26; Start 11/07/16 at 16:26; Stop 11/07/16 at 16:42 ; Status DC Fentanyl Citrate (fentaNYL INJ) 250 mcg STK-MED ONCE .ROUTE ; Start 11/07/16 at 17:03; Stop 11/07/16 at 17:04; Status DC Gentamicin Sulfate (Gentamicin Inj) 240 mg STK-MED ONCE .ROUTE Last administered on 11/07/16 16:26; Start 11/07/16 at 17:10; Stop 11/07/16 at 17:11 ; Status DC Lactated Ringer's 1,000 ml @ 100 mls/hr Q10H IV Last administered on 07:51; Start 11/07/16 at 18:00; Stop 11/08/16 at 12:46; Status DC Enoxaparin Sodium (Lovenox Inj) 30 mg Q12H SQ ; Start 11/08/16 at 17:00; Stop at 11:48; Status DC Cefazolin Sodium/ Dextrose 50 ml @ 100 mls/hr Q8H IV Last administered on 11/10 08:16; Start 11/08/16 at 00:00; Stop 11/10/16 at 12:47; Status DC Gentamicin Sulfate/Sodium Chloride 100 ml @ 200 mls/hr Q8H IV Last administered on 11/10/16 16:30; Start 11/08/16 at 00:00; Stop 11/10/16 at 16:29 ; Status DC Acetaminophen/ Hydrocodone Bitart ([place] 10-325 Mg) 1 tab Q3H PRN PO PAIN 3<10 Last administered on 11/08/16 10:36; Start 11/07/16 at 18:00; Stop 11/08/16 at 13:04; Status DC Morphine Sulfate (Morphine Inj) 4 mg Q3H PRN IV PUSH Break thru Pain Last administered on 11/08/16 07:50; Start 11/07/16 at 18:00; Stop 11/08/16 at 12:21 ; Status DC Ketorolac Tromethamine (Toradol Inj) 30 mg Q12H IVP Last administered on 05:32; Start 11/07/16 at 18:00; Stop 11/10/16 at 06:01; Status DC Bacitracin (Baciguent Oint) 15 applic STK-MED ONCE .ROUTE Last administered on 11/07/16 18:09; Start 11/07/16 at 18:09; Stop 11/07/16 at 18:10; Status DC Miscellaneous Information ALL NURSING DEPARTME... UNSCH PRN .XX SEE LABEL COMMENTS; Start 11/07/16 at 18:33; Stop 11/08/16 at 18:32; Status DC Acetaminophen (Tylenol) 650 mg Q4H PRN PO Temp > 100.4, pain 1-2; Start at 08:15 Magnesium Hydroxide (Milk Of Magnesia Liq) 30 ml DAILY PRN PO for Severe Constipation Last administered on 11/09/16 20:15; Start 11/08/16 at 08:15; Stop 11/10/16 at 09:00; Status DC Calcium Carbonate (Tums Chew) 1,000 mg TID PRN CHEW DYSPEPSIA Last administered on 01/04/17 16:36; Start 11/08/16 at 08:15 Dextrose (D50w (Vial) Inj) 50 ml UNSCH PRN IV HYPOGLYCEMIA-SEE COMMENTS; Start 11/08/16 at 08:15; Stop 12/03/16 at 09:16; Status DC Glucagon (Glucagon Inj) 1 mg UNSCH PRN OTHER HYPOGLYCEMIA-SEE COMMENTS; Start 11/08/16 at 08:15; Stop 12/03/16 at 09:16; Status DC Insulin Aspart (NovoLOG SUPPLEMENTAL SCALE) 1 ACHS SLIDING SCALE SQ Last administered on 12/01/16 13:21; Start 11/08/16 at 11:00; Stop 12/03/16 at 09:16 ; Status DC Enalaprilat (Vasotec Inj) 1.25 mg Q6H PRN IV SBP> OR = 180, DBP> OR = 100; Start 11/08/16 at 08:15 Clonidine (Catapres) 0.1 mg Q6H PRN PO SBP> OR = 180, DBP> OR = 100; Start at 08:15 Gabapentin (Neurontin) 400 mg TID PO Last administered on 11/16/16 09:10; Start 11/08/16 at 13:00; Stop 11/16/16 at 11:46; Status DC Morphine Sulfate (Morphine Inj) 6 mg Q3H PRN IV PUSH PAIN 6-10 Last administered on 11/17/16 15:09; Start 11/08/16 at 15:00; Stop 11/18/16 at 16:37 ; Status DC Aspirin (Aspirin Chew) 81 mg DAILY CHEW Last administered on 01/09/17 08:20; Start 11/08/16 at 12:45 Ferrous Sulfate (Ferrous Sulfate) 325 mg DAILY PO Last administered on 08:11; Start 11/08/16 at 12:45; Stop 12/05/16 at 09:25; Status DC Lisinopril (Prinivil) 25 mg DAILY PO Last administered on 11/18/16 09:59; Start 11/08/16 at 12:45; Status Future Hold Nitroglycerin (Nitrostat Sl) 0.4 mg Q6HR PRN SL CHEST PAIN; Start 11/08/16 at 12:45 Pantoprazole Sodium (Protonix) 40 mg DAILY PO Last administered on 01/09/17 08 :19; Start 11/08/16 at 12:45 Pravastatin Sodium (Pravachol) 80 mg HS PO Last administered on 01/08/17 20:59 ; Start 11/08/16 at 21:00 Propranolol HCl (Inderal) 80 mg Q12HR PO Last administered on 11/18/16 10:01; Start 11/08/16 at 21:00; Stop 11/22/16 at 12:49; Status DC Miscellaneous (Pill Splitter) 1 ea UNSCH PRN OTHER SEE LABEL COMMENTS; Start at 12:45 Senna/Docusate Sodium ([place]ke-Colace) 1 tab BID PO Last administered on 08:20; Start 11/08/16 at 12:45; Status Future hold Lactulose (Lactulose Liq) 30 ml DAILY PRN PO No BM in 2 days; Start 11/08/16 at 12:45; Stop 11/10/16 at 07:47; Status DC Acetaminophen/ Hydrocodone Bitart ([place] 10-325 Mg) 1.5 tab Q3H PRN PO PAIN 3- 10 Last administered on 11/09/16 23:46; Start 11/08/16 at 15:00; Stop 11/10/16 at 12:45; Status DC Folic Acid (Folate) 1 mg DAILY PO Last administered on 11/12/16 09:14; Start 11/09/16 at 09:00; Stop 11/14/16 at 08:59; Status DC Thiamine HCl (Vitamin B1) 100 mg DAILY PO Last administered on 01/09/17 08:20 ; Start 11/09/16 at 09:00 Multivitamins/ Minerals Therapeutic (Theragran M Tab) 1 tab DAILY PO Last administered on 11/12/16 09:13; Start 11/09/16 at 09:00; Stop 11/14/16 at 08:59 ; Status DC Flumazenil (Romazicon Inj) 0.2 mg Q1M PRN IV PUSH SEE LABEL COMMENTS; Start at 13:00 Lorazepam (Ativan) 1 mg Q4H PRN PO CIWA 8 - 10; Start 11/08/16 at 13:00; Stop 11/26/16 at 16:05; Status DC Lorazepam (Ativan Inj) 1 mg Q4H PRN IV PUSH CIWA 8 - 10; Start 11/08/16 at 13: 00; Stop 11/26/16 at 16:05; Status DC Lorazepam (Ativan) 2 mg Q2H PRN PO CIWA 11-14; Start 11/08/16 at 13:00; Stop at 16:05; Status DC Lorazepam (Ativan Inj) 2 mg Q2H PRN IV PUSH CIWA 11-14; Start 11/08/16 at 13:00 ; Stop 11/26/16 at 16:05; Status DC Lorazepam (Ativan Inj) 2 mg Q1H PRN IV PUSH CIWA 15-20; Start 11/08/16 at 13:00 ; Stop 11/26/16 at 16:05; Status DC Lorazepam (Ativan Inj) 2 mg Q15M PRN IV PUSH CIWA > 20; Start 11/08/16 at 13:00 ; Stop 11/26/16 at 16:05; Status DC Haloperidol Lactate (Haldol Inj) 2 mg Q15M PRN IM SEE LABEL COMMENTS; Start at 13:00 Lactated Ringer's 1,000 ml @ 30 mls/hr Q24H PRN IV SEE LABEL COMMENTS; Start at 00:45; Stop 11/09/16 at 12:05; Status DC Sodium Chloride 500 ml @ 30 mls/hr [id number] PRN IV SEE LABEL COMMENTS; Start at 00:45; Stop 11/09/16 at 12:05; Status DC Metoprolol Tartrate (Lopressor) 25 mg 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 PO SEE LABEL COMMENTS; Start 11/09/16 at 00:45; Stop 11/12/16 at 00:44; Status DC Povidone Iodine (Betadine 5% Antisepsis Kit) 1 applic 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 EACH NARE SEE LABEL COMMENTS; Start 11/09/16 at 00:45; Stop 11/12/16 at 00:44; Status DC Chlorhexidine Gluconate (Chlorhexidine 2% Cloth) 3 pack 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 TOPICAL SEE LABEL COMMENTS; Start 11/09/16 at 00:45; Stop 11/09/16 at 12:05; Status DC Insulin Human Regular (NovoLIN R INJ) See Protocol Table ... 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 SQ SEE PROTOCOL TABLE; Start 11/09/16 at 00:45; Stop 11/12/16 at 00:44; Status DC Potassium Chloride (KCl) 20 meq ONCE ONCE PO Last administered on 11/09/16 11 :40; Start 11/09/16 at 11:00; Stop 11/09/16 at 11:01; Status DC Neomycin/ Polymyxin/ Bacitracin (Neosporin Oint) 1 applic DAILY TOPICAL Last administered on 01/02/17 09:00; Start 11/10/16 at 09:00 Lactulose (Lactulose Liq) 30 ml DAILY PO Last administered on 12/02/16 09:18; Start 11/10/16 at 09:00; Stop 12/08/16 at 09:52; Status DC Magnesium Hydroxide (Milk Of Magnesia Liq) 30 ml HS PO Last administered on 21:07; Start 11/10/16 at 21:00; Status Future hold Famotidine (Pepcid Inj) 20 mg STK-MED ONCE .ROUTE Last administered on 08:51; Start 11/10/16 at 08:51; Stop 11/10/16 at 08:52; Status DC Albuterol Sulfate (Albuterol Neb) 2.5 mg STK-MED ONCE .ROUTE Last administered on 11/10/16 08:55; Start 11/10/16 at 08:53; Stop 11/10/16 at 08:54; Status DC Gentamicin Sulfate (Gentamicin Inj) 240 mg STK-MED ONCE .ROUTE Last administered on 11/10/16 09:48; Start 11/10/16 at 09:02; Stop 11/10/16 at 09:03 ; Status DC Acetaminophen (Ofirmev Inj) 1,000 mg STK-MED ONCE IV ; Start 11/10/16 at 09:13; Stop 11/10/16 at 09:14; Status DC Lactated Ringer's 1,000 ml @ 100 mls/hr Q10H IV Last administered on 00:53; Start 11/10/16 at 13:00; Stop 11/11/16 at 11:56; Status DC Enoxaparin Sodium (Lovenox Inj) 30 mg Q12H SQ Last administered on 12/04/16 00 :03; Start 11/11/16 at 00:00; Stop 12/04/16 at 09:43; Status DC Cefazolin Sodium/ Dextrose 50 ml @ 100 mls/hr Q8H IV Last administered on 11/13 00:05; Start 11/10/16 at 16:00; Stop 11/13/16 at 08:29; Status DC Gentamicin Sulfate/Sodium Chloride 100 ml @ 200 mls/hr Q8H IV Last administered on 11/13/16 10:00; Start 11/10/16 at 18:00; Stop 11/13/16 at 10:29 ; Status DC Acetaminophen/ Hydrocodone Bitart ([place] 10-325 Mg) 1 tab Q3H PRN PO PAIN 3<10 Last administered on 11/18/16 04:34; Start 11/10/16 at 11:45; Stop 11/18/16 at 16 :37; Status DC Calcium/Vitamin D (Oscal-D 250-125) 250 mg TID PO Last administered on 08:19; Start 11/10/16 at 13:00 Meperidine HCl (*DEMEROL INJ PERIprocedural ONLY) 25 mg STK-MED ONCE .ROUTE Last administered on 11/10/16 12:36; Start 11/10/16 at 12:36; Stop 11/10/16 at 12:37; Status DC Miscellaneous Information ALL NURSING DEPARTME... UNSCH PRN .XX SEE LABEL COMMENTS; Start 11/10/16 at 12:29; Stop 11/11/16 at 12:28; Status DC Midazolam HCl (Versed Inj) 2 mg STK-MED ONCE .ROUTE ; Start 11/10/16 at 12:48; Stop 11/10/16 at 12:49; Status DC Fentanyl Citrate (fentaNYL INJ) 250 mcg STK-MED ONCE .ROUTE ; Start 11/10/16 at 12:48; Stop 11/10/16 at 12:49; Status DC Morphine Sulfate (*morphine INJ PERIprocedure ONLY) 8 mg STK-MED ONCE .ROUTE Last administered on 11/10/16 14:36; Start 11/10/16 at 14:36; Stop 11/10/16 at 14:37; Status DC Bisacodyl (Dulcolax Ec) 10 mg ONCE ONCE PO Last administered on 11/11/16 10: 17; Start 11/11/16 at 07:00; Stop 11/11/16 at 07:04; Status DC Bisacodyl (Dulcolax Supp) 10 mg ONCE ONCE RECTAL Last administered on 10:17; Start 11/11/16 at 07:00; Stop 11/11/16 at 07:04; Status DC Sodium Chloride 250 ml @ 15 mls/hr ONCE ONCE IV Last administered on 11:19; Start 11/11/16 at 11:15; Stop 11/12/16 at 03:54; Status DC Furosemide (Lasix Inj) 20 mg ONCE ONCE IV ; Start 11/11/16 at 11:15; Stop 11/11 at 11:16; Status Cancel Furosemide (Lasix Inj) 20 mg ONCE ONCE IV Last administered on 11/12/16t 11:18 ; Start 11/12/16 at 11:00; Stop 11/12/16 at 11:01; Status DC Albuterol/ Ipratropium (Duoneb Neb) 1 ampule Q4HR NEB PRN NEB wheezing; Start 11/12/16 at 13:15 Lactated Ringer's 1,000 ml @ 30 mls/hr Q24H PRN IV SEE LABEL COMMENTS; Start at 05:00; Stop 11/16/16 at 04:59; Status Cancel Sodium Chloride 500 ml @ 30 mls/hr [id number] PRN IV SEE LABEL COMMENTS; Start at 05:00; Stop 11/16/16 at 04:59; Status DC Metoprolol Tartrate (Lopressor) 25 mg 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 PO SEE LABEL COMMENTS; Start 11/13/16 at 05:00; Stop 11/16/16 at 04:59; Status DC Povidone Iodine (Betadine 5% Antisepsis Kit) 1 applic 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 EACH NARE SEE LABEL COMMENTS; Start 11/13/16 at 05:00; Stop 11/16/16 at 04:59; Status DC Chlorhexidine Gluconate (Chlorhexidine 2% Cloth) 3 pack 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 TOPICAL SEE LABEL COMMENTS; Start 11/13/16 at 05:00; Stop 11/16/16 at 04:59; Status DC Lidocaine HCl (Xylocaine 2% Jelly) 30 applic STK-MED ONCE .ROUTE ; Start at 07:15; Stop 11/13/16 at 07:16; Status DC Mineral Oil (Muri-Lube Oil) 10 ml STK-MED ONCE .ROUTE ; Start 11/13/16 at 07:15 ; Stop 11/13/16 at 07:16; Status DC Gentamicin Sulfate (Gentamicin Inj) 240 mg STK-MED ONCE .ROUTE Last administered on 11/13/16 08:20; Start 11/13/16 at 07:15; Stop 11/13/16 at 07:16 ; Status DC Albuterol Sulfate (Albuterol Neb) 2.5 mg STK-MED ONCE .ROUTE ; Start 11/13/16 at 07:34; Stop 11/13/16 at 07:35; Status DC Dexamethasone Sodium Phosphate (Decadron Inj) 4 mg STK-MED ONCE .ROUTE ; Start 11/13/16 at 07:36; Stop 11/13/16 at 07:37; Status DC Famotidine (Pepcid Inj) 20 mg STK-MED ONCE .ROUTE ; Start 11/13/16 at 07:36; Stop 11/13/16 at 07:37; Status DC Albuterol/ Ipratropium (Duoneb Neb) 1 ampule STK-MED ONCE .ROUTE Last administered on 11/13/16 07:50; Start 11/13/16 at 07:47; Stop 11/13/16 at 07:48 ; Status DC Lactated Ringer's 1,000 ml @ 100 mls/hr Q10H IV Last administered on 12:14; Start 11/13/16 at 08:42; Stop 11/18/16 at 16:33; Status DC Cefazolin Sodium/ Dextrose 50 ml @ 100 mls/hr Q8H IV Last administered on 04:43; Start 11/13/16 at 12:00; Stop 11/20/16 at 11:59; Status DC Gentamicin Sulfate/Sodium Chloride 100 ml @ 200 mls/hr Q8H IV Last administered on 11/16/16 09:14; Start 11/13/16 at 18:00; Stop 11/16/16 at 17:59 ; Status DC Midazolam HCl (Versed Inj) 2 mg STK-MED ONCE .ROUTE ; Start 11/13/16 at 09:25; Stop 11/13/16 at 09:26; Status DC Fentanyl Citrate (fentaNYL INJ) 250 mcg STK-MED ONCE .ROUTE ; Start 11/13/16 at 09:25; Stop 11/13/16 at 09:26; Status DC Zolpidem Tartrate (Ambien) 5 mg HS PRN PO Insomnia Last administered on 22:24; Start 11/14/16 at 11:00 Trazodone HCl (Desyrel) 100 mg HS PO Last administered on 01/08/17 20:58; Start 11/14/16 at 21:00 Morphine Sulfate (Oramorph Sr) 15 mg Q12HR PO Last administered on 11/18/16 10: 00; Start 11/16/16 at 21:00; Stop 11/18/16 at 16:36; Status DC Morphine Sulfate (Oramorph Sr) 15 mg ONCE ONCE PO Last administered on 12:32; Start 11/16/16 at 10:15; Stop 11/16/16 at 10:24; Status DC Gabapentin (Neurontin) 600 mg TID PO Last administered on 01/09/17 08:19; Start 11/16/16 at 13:00 Sodium Chloride 1,000 ml @ 999 mls/hr BOLUS ONCE IV Last administered on 17:22; Start 11/18/16 at 16:45; Stop 11/18/16 at 17:45; Status DC Morphine Sulfate (Oramorph Sr) 30 mg Q12HR PO Last administered on 11/29/16 09 :24; Start 11/18/16 at 21:00; Stop 11/29/16 at 14:26; Status DC Morphine Sulfate (Morphine Inj) 6 mg Q4H PRN IV PUSH PAIN SCALE 5 TO 10 Last administered on 11/19/16 05:59; Start 11/18/16 at 16:45; Stop 11/20/16 at 00:46; Status DC Morphine Sulfate (Morphine Inj) 3 mg Q3H PRN IV PUSH PAIN SCALE 1 TO 4 Last administered on 11/19/16 16:36; Start 11/18/16 at 16:45; Stop 11/20/16 at 00:46; Status DC Sodium Chloride 1,000 ml @ 125 mls/hr Q8H IV Last administered on 11/19/16 16: 15; Start 11/19/16 at 00:15; Stop 11/19/16 at 19:21; Status DC Sodium Chloride 500 ml @ 500 mls/hr BOLUS ONCE IV Last administered on 00:15; Start 11/19/16 at 00:15; Stop 11/19/16 at 01:14; Status DC Nystatin (Mycostatin Powder) 1 applic Q12HR TOPICAL Last administered on 08:54; Start 11/19/16 at 21:00; Stop 11/28/16 at 13:46; Status DC Acetaminophen/ Hydrocodone Bitart ([place] 7.5-325 Mg) 1 tab Q4H PRN PO PAIN SCALE 1 TO 4; Start 11/20/16 at 00:45; Stop 11/28/16 at 13:46; Status DC Acetaminophen/ Hydrocodone Bitart ([place] 10-325 Mg) 1 tab Q4H PRN PO PAIN SCALE 3-5 Last administered on 12/23/16 08:58; Start 11/20/16 at 00:45 Hydromorphone HCl (Dilaudid Pf Inj) 1 mg Q4H PRN IV PUSH BREAKTHROUGH PAIN Last administered on 12/17/16 10:38; Start 11/20/16 at 00:45; Stop 12/18/16 at 10:47; Status DC Propranolol HCl (Inderal) 40 mg Q12HR PO Last administered on 12/08/16 08:01; Start 11/22/16 at 21:00; Stop 12/08/16 at 10:00; Status DC Lactated Ringer's 1,000 ml @ 30 mls/hr Q24H PRN IV SEE LABEL COMMENTS; Start at 02:45; Stop 11/27/16 at 02:44; Status DC Sodium Chloride 500 ml @ 30 mls/hr [id number] PRN IV SEE LABEL COMMENTS; Start 11/24/16 at 02:45; Stop 11/27/16 at 02:44; Status DC Povidone Iodine (Betadine 5% Antisepsis Kit) 1 applic 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 EACH NARE SEE LABEL COMMENTS; Start 11/24/16 at 02:45; Stop 11/27/16 at 02:44; Status DC Chlorhexidine Gluconate (Chlorhexidine 2% Cloth) 3 pack 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 TOPICAL SEE LABEL COMMENTS; Start 11/24/16 at 02:45; Stop 11/27/16 at 02:44; Status DC Insulin Human Regular (NovoLIN R INJ) See Protocol Table ... 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 SQ SEE PROTOCOL TABLE; Start 11/24/16 at 02:45; Stop 11/27/16 at 02:44; Status DC Prochlorperazine Edisylate (Compazine Inj) 10 mg Q8H PRN IV PUSH NAUSEA/ VOMITING Last administered on 11/25/16 18:00; Start 11/25/16 at 16:15 Sodium Chloride 500 ml @ 500 mls/hr BOLUS ONCE IV Last administered on 18:06; Start 11/25/16 at 17:00; Stop 11/25/16 at 17:59; Status DC Gentamicin Sulfate (Gentamicin Inj) 240 mg STK-MED ONCE .ROUTE Last administered on 11/28/16 10:42; Start 11/28/16 at 07:18; Stop 11/28/16 at 07:19 ; Status DC Vancomycin HCl (Vancomycin Inj) 1,000 mg STK-MED ONCE .ROUTE Last administered on 12/09/16 15:25; Start 11/28/16 at 07:38; Stop 11/28/16 at 07:39; Status DC Cefazolin Sodium/ Dextrose 50 ml @ As Directed STK-MED ONCE .ROUTE Last administered on 12/09/16 15:20; Start 11/28/16 at 07:38; Stop 11/28/16 at 07:39 ; Status DC Sodium Chloride 250 ml @ As Directed STK-MED ONCE .ROUTE ; Start 11/28/16 at 07 :39; Stop 11/28/16 at 07:40; Status DC Fentanyl Citrate (fentaNYL INJ) 250 mcg STK-MED ONCE .ROUTE ; Start 11/28/16 at 10:15; Stop 11/28/16 at 10:16; Status DC Cefazolin Sodium (Ancef Inj) 1,000 mg STK-MED ONCE .ROUTE Last administered on 11/28/16 10:31; Start 11/28/16 at 10:23; Stop 11/28/16 at 10:24; Status DC Lactated Ringer's 1,000 ml @ 100 mls/hr Q10H IV ; Start 11/28/16 at 10:59; Stop 12/03/16 at 09:16; Status DC Cefazolin Sodium/ Dextrose 50 ml @ 100 mls/hr Q8H IV Last administered on 12/01 06:46; Start 11/28/16 at 15:00; Stop 12/01/16 at 14:59; Status DC Magnesium Hydroxide (Milk Of Magnesia Liq) 30 ml Q12H PRN PO MILD - MODERATE CONSTIPATION Last administered on 12/26/16 10:08; Start 11/28/16 at 11:30 Sennosides (Senokot) 17.2 mg Q12H PRN PO MODERATE - SEVERE CONSTIPATION Last administered on 12/25/16 09:48; Start 11/28/16 at 11:30 Bisacodyl (Dulcolax Supp) 10 mg DAILY PRN RECTAL SEVERE CONSITIPATION Last administered on 12/11/16 12:30; Start 11/28/16 at 11:30 Albuterol Sulfate (*ALBUTEROL NEB PERIprocedure ONLY) 2.5 mg STK-MED ONCE NEB Last administered on 11/28/16 11:38; Start 11/28/16 at 11:38; Stop 11/28/16 at 11:39; Status DC Dexamethasone Sodium Phosphate (Decadron Inj) 4 mg STK-MED ONCE .ROUTE ; Start 11/28/16 at 11:51; Stop 11/28/16 at 11:52; Status DC Dexamethasone Sodium Phosphate (Decadron Inj) 4 mg NOW ONCE IV Last administered on 11/28/16 12:00; Start 11/28/16 at 12:00; Stop 11/28/16 at 12:01 ; Status DC Miscellaneous Information ALL NURSING DEPARTME... UNSCH PRN .XX SEE LABEL COMMENTS; Start 11/28/16 at 11:22; Stop 11/29/16 at 11:21; Status DC Morphine Sulfate (*morphine INJ PERIprocedure ONLY) 8 mg STK-MED ONCE .ROUTE Last administered on 11/28/16 12:01; Start 11/28/16 at 12:01; Stop 11/28/16 at 12:02; Status DC Acetaminophen/ Hydrocodone Bitart ([place] 10-325 Mg) 1.5 tab Q4H PRN PO pain 6- 10 Last administered on 12/23/16 17:35; Start 11/28/16 at 15:00; Stop 12/23/16 at 18:38; Status DC Nystatin (Mycostatin Cream) 1 applic Q6HR TOPICAL Last administered on 05:00; Start 11/28/16 at 14:00; Stop 12/16/16 at 13:46; Status DC Morphine Sulfate (Oramorph Sr) 30 mg Q8HR PO Last administered on 12/03/16 06: 09; Start 11/29/16 at 22:00; Stop 12/03/16 at 12:16; Status DC Cetirizine HCl (ZyrTEC) 10 mg HS PO Last administered on 12/07/16 20:03; Start 12/01/16 at 21:00; Stop 12/08/16 at 20:59; Status DC Fluticasone Propionate (Flonase Jerzy Spr) 2 spray DAILY EACH NARE Last administered on 12/15/16 08:54; Start 12/01/16 at 11:00; Stop 12/15/16 at 10:59 ; Status DC Folic Acid (Folate) 1 mg DAILY PO Last administered on 01/09/17 08:20; Start 12/03/16 at 09:00 Morphine Sulfate (Oramorph Sr) 30 mg Q8HR PO Last administered on 01/09/17 05: 40; Start 12/03/16 at 14:00 Lactobacillus Acidophilus (Lactinex) 1 tab TID PO Last administered on 08:10; Start 12/04/16 at 09:00; Stop 12/05/16 at 09:26; Status DC Enoxaparin Sodium (Lovenox Inj) 40 mg DAILY SQ Last administered on 01/08/17 08:15; Start 12/05/16 at 09:00 Al Hydrox/Mg Hydrox/Simethicone (Mag-Al Plus Susp Liq) 30 ml ONCE ONCE PO Last administered on 12/04/16 11:55; Start 12/04/16 at 11:45; Stop 12/04/16 at 11:50; Status DC Al Hydrox/Mg Hydrox/Simethicone (Mag-Al Plus Susp Liq) 30 ml Q6HR PRN PO HEARTBURN, INDIGESTION Last administered on 01/06/17 11:29; Start 12/04/16 at 18:00 Sucralfate (Carafate Liq) 1 gm QID PO Last administered on 12/16/16 13:41; Start 12/05/16 at 09:00; Stop 12/16/16 at 13:43; Status DC Lactobacillus Acidophilus (Lactinex) 1 tab BID PO Last administered on 09:36; Start 12/05/16 at 21:00; Stop 12/18/16 at 10:47; Status DC Polyethylene Glycol (Miralax) 17 gm DAILY PRN PO CONSTIPATION; Start 12/08/16 at 10:00; Stop 12/11/16 at 15:18; Status DC Propranolol HCl (Inderal) 20 mg Q12HR PO Last administered on 12/09/16t 20:34; Start 12/08/16 at 21:00; Stop 12/10/16 at 07:34; Status DC Lactated Ringer's 1,000 ml @ 30 mls/hr Q24H PRN IV SEE LABEL COMMENTS; Start at 01:30; Stop 12/12/16 at 01:29; Status DC Sodium Chloride 500 ml @ 30 mls/hr [id number] PRN IV SEE LABEL COMMENTS; Start at 01:30; Stop 12/12/16 at 01:29; Status DC Povidone Iodine (Betadine 5% Antisepsis Kit) 1 applic 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 EACH NARE SEE LABEL COMMENTS; Start 12/09/16 at 01:30; Stop 12/12/16 at 01:29; Status DC Chlorhexidine Gluconate (Chlorhexidine 2% Cloth) 3 pack 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 TOPICAL SEE LABEL COMMENTS; Start 12/09/16 at 01:30; Stop 12/12/16 at 01:29; Status DC Insulin Human Regular (NovoLIN R INJ) See Protocol Table ... 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 SQ SEE PROTOCOL TABLE; Start 12/09/16 at 01:30; Stop 12/12/16 at 01:29; Status DC Bupivacaine HCl/ Epinephrine Bitart (Sensorcaine-Epinephrine 0.25% Inj) 50 ml STK-MED ONCE .ROUTE ; Start 12/09/16 at 14:07; Stop 12/09/16 at 14:08; Status DC Mineral Oil (Muri-Lube Oil) 10 ml STK-MED ONCE .ROUTE ; Start 12/09/16 at 14:07 ; Stop 12/09/16 at 14:08; Status DC Gentamicin Sulfate (Gentamicin Inj) 240 mg STK-MED ONCE .ROUTE Last administered on 12/09/16 15:31; Start 12/09/16 at 14:07; Stop 12/09/16 at 14:08 ; Status DC Vancomycin HCl (Vancomycin Inj) 1,000 mg STK-MED ONCE .ROUTE ; Start 12/09/16 at 15:06; Stop 12/09/16 at 15:07; Status DC Cefazolin Sodium/ Dextrose 50 ml @ As Directed STK-MED ONCE .ROUTE ; Start 12/09 at 15:06; Stop 12/09/16 at 15:07; Status DC Lactated Ringer's 1,000 ml @ 100 mls/hr Q10H IV ; Start 12/09/16 at 15:57; Stop 12/16/16 at 13:45; Status DC Cefazolin Sodium/ Dextrose 50 ml @ 100 mls/hr Q8H IV Last administered on 12/16 13:42; Start 12/09/16 at 20:00; Stop 12/16/16 at 19:59; Status DC Gentamicin Sulfate/Sodium Chloride 100 ml @ 200 mls/hr Q8H IV Last administered on 12/12/16 12:25; Start 12/09/16 at 21:00; Stop 12/12/16 at 20:59 ; Status DC Morphine Sulfate (*morphine INJ PERIprocedure ONLY) 8 mg STK-MED ONCE .ROUTE Last administered on 12/09/16 16:32; Start 12/09/16 at 16:32; Stop 12/09/16 at 16:33; Status DC Fentanyl Citrate (fentaNYL INJ) 250 mcg STK-MED ONCE .ROUTE ; Start 12/09/16 at 16:33; Stop 12/09/16 at 16:34; Status DC Miscellaneous Information ALL NURSING DEPARTME... UNSCH PRN .XX SEE LABEL COMMENTS; Start 12/09/16 at 16:20; Stop 12/10/16 at 16:19; Status DC Morphine Sulfate (*morphine INJ PERIprocedure ONLY) 8 mg STK-MED ONCE .ROUTE Last administered on 12/09/16 17:01; Start 12/09/16 at 17:01; Stop 12/09/16 at 17:02; Status DC Propranolol HCl (Inderal) 10 mg Q12HR PO Last administered on 12/13/16 09:42; Start 12/10/16 at 09:00; Stop 12/13/16 at 10:32; Status DC Menthol/Methyl Salicylate (Aleks Daniels Oint) 1 applic UNSCH PRN TOPICAL arthritic pain Last administered on 12/12/16 17:51; Start 12/11/16 at 15:30 Propranolol HCl (Inderal) 20 mg Q12HR PO ; Start 12/13/16 at 21:00; Stop at 21:00; Status DC Propranolol HCl (Inderal) 10 mg Q12HR PO Last administered on 01/09/17 08:19; Start 12/13/16 at 21:00 Bacitracin (Baciguent Oint) 1 applic DAILY PRN TOPICAL WOUND VAC DRESSING CHANGE; Start 12/15/16 at 12:30 Sucralfate (Carafate Liq) 1 gm BID PO Last administered on 12/30/16 08:30; Start 12/16/16 at 21:00; Stop 12/30/16 at 20:59; Status DC Lidocaine HCl (Lidoderm 5% Patch.12 Hr) 1 patch DAILY T-DERMAL Last administered on 12/18/16 11:33; Start 12/18/16 at 10:00; Stop 12/19/16 at 19:35 ; Status DC Miscellaneous Information 1 Q24H T-DERMAL ; Start 12/18/16 at 21:00; Stop at 19:35; Status DC Lactobacillus Acidophilus (Lactinex) 1 tab TID PO Last administered on 08:19; Start 12/18/16 at 13:00 Lidocaine HCl (Lidoderm 5% Patch.12 Hr) 1 patch HS T-DERMAL Last administered on 01/03/17 20:55; Start 12/19/16 at 21:00 Miscellaneous Information 1 Q24H T-DERMAL Last administered on 12/24/16 09:00; Start 12/20/16 at 09:00 Propofol (Diprivan 200 Mg/20 ml Inj) 200 mg STK-MED ONCE IV ; Start 11/07/16 at 12:00; Stop 12/23/16 at 10:36; Status DC Ephedrine Sulfate (ePHEDrine/NS 25 MG/5 ML SYR) 50 mg STK-MED ONCE IV ; Start at 12:00; Stop 12/23/16 at 10:36; Status DC Neostigmine Methylsulfate (Prostigmin Inj) 3 mg STK-MED ONCE IV ; Start at 12:00; Stop 12/23/16 at 10:36; Status DC Phenylephrine HCl (Neosynephrine/ NS 1000 Mcg/10ml Syr) 1,000 mcg STK-MED ONCE IV ; Start 11/07/16 at 12:00; Stop 12/23/16 at 10:37; Status DC Ondansetron HCl (Zofran Inj) 4 mg STK-MED ONCE IV PUSH ; Start 11/07/16 at 12:00 ; Stop 12/23/16 at 10:37; Status DC Lactated Ringer's 1,000 ml @ As Directed STK-MED ONCE IV ; Start 11/07/16 at 12 :00; Stop 12/23/16 at 10:37; Status DC Parenteral Electrolytes 1,000 ml @ As Directed STK-MED ONCE IV ; Start at 12:00; Stop 12/23/16 at 10:37; Status DC Propofol (Diprivan 200 Mg/20 ml Inj) 400 mg STK-MED ONCE IV ; Start 11/10/16 at 12:00; Stop 12/23/16 at 12:04; Status DC Phenylephrine HCl (Neosynephrine/ NS 1000 Mcg/10ml Syr) 2,000 mcg STK-MED ONCE IV ; Start 11/10/16 at 12:00; Stop 12/23/16 at 12:04; Status DC Ondansetron HCl (Zofran Inj) 4 mg STK-MED ONCE IV PUSH ; Start 11/10/16 at 12:00 ; Stop 12/23/16 at 12:04; Status DC Lactated Ringer's 1,000 ml @ As Directed STK-MED ONCE IV ; Start 11/10/16 at 12 :00; Stop 12/23/16 at 12:04; Status DC Propofol (Diprivan 200 Mg/20 ml Inj) 200 mg STK-MED ONCE IV ; Start 11/13/16 at 12:00; Stop 12/23/16 at 12:38; Status DC Ephedrine Sulfate (ePHEDrine/NS 25 MG/5 ML SYR) 25 mg STK-MED ONCE IV ; Start at 12:00; Stop 12/23/16 at 12:38; Status DC Phenylephrine HCl (Neosynephrine/ NS 1000 Mcg/10ml Syr) 1,000 mcg STK-MED ONCE IV ; Start 11/13/16 at 12:00; Stop 12/23/16 at 12:38; Status DC Ondansetron HCl (Zofran Inj) 4 mg STK-MED ONCE IV PUSH ; Start 11/13/16 at 12:00 ; Stop 12/23/16 at 12:38; Status DC Lactated Ringer's 1,000 ml @ As Directed STK-MED ONCE IV ; Start 11/13/16 at 12 :00; Stop 12/23/16 at 12:38; Status DC Neostigmine Methylsulfate (Prostigmin Inj) 3 mg STK-MED ONCE IV ; Start at 12:00; Stop 12/23/16 at 12:38; Status DC Propofol (Diprivan 200 Mg/20 ml Inj) 200 mg STK-MED ONCE IV ; Start 11/28/16 at 12:00; Stop 12/23/16 at 12:50; Status DC Ephedrine Sulfate (ePHEDrine/NS 25 MG/5 ML SYR) 25 mg STK-MED ONCE IV ; Start at 12:00; Stop 12/23/16 at 12:50; Status DC Ondansetron HCl (Zofran Inj) 4 mg STK-MED ONCE IV PUSH ; Start 11/28/16 at 12:00 ; Stop 12/23/16 at 12:50; Status DC Propofol (Diprivan 200 Mg/20 ml Inj) 200 mg STK-MED ONCE IV ; Start 12/09/16 at 12:00; Stop 12/23/16 at 14:38; Status DC Ephedrine Sulfate (ePHEDrine/NS 25 MG/5 ML SYR) 50 mg STK-MED ONCE IV ; Start at 12:00; Stop 12/23/16 at 14:38; Status DC Ondansetron HCl (Zofran Inj) 4 mg STK-MED ONCE IV PUSH ; Start 12/09/16 at 12:00 ; Stop 12/23/16 at 14:38; Status DC Acetaminophen/ Hydrocodone Bitart ([place] 10-325 Mg) 2 tab Q4H PRN PO pain 6-10 Last administered on 01/09/17t 07:22; Start 12/23/16 at 18:45 Vancomycin HCl 5000 mg/Sodium Chloride 3,000 ml @ 10 mls/hr Q24H PRN IRRIGATION DRESSING CHANGE Last administered on 01/08/17 01:36; Start 12/25/16 at 08:00 Diphenhydramine HCl (Benadryl) 12.5 mg Q4H PRN PO itching Last administered on 12/28/16 07:54; Start 12/25/16 at 16:45; Stop 12/28/16 at 13:48; Status DC Ferrous Sulfate (Ferrous Sulfate) 325 mg BID@12,17 PO Last administered on 01/08 15:38; Start 12/26/16 at 12:00 Ascorbic Acid (Vitamin C) 500 mg BID PO Last administered on 01/09/17 08:20; Start 12/26/16 at 09:00 Pharmacy Profile Note 0 ml @ 0 mls/hr UNSCH OTHER ; Start 12/26/16 at 14:45 Vancomycin HCl 1500 mg/Sodium Chloride 515 ml @ 257.5 mls/ hr Q12H IV Last administered on 12/26/16 20:17; Start 12/26/16 at 17:00; Stop 12/27/16 at 04:54; Status DC Miscellaneous Information SPECIFIC LAB TO BE LEANNA... ONCE ONCE .XX ; Start 12/28 at 04:45; Stop 12/28/16 at 04:46; Status Cancel Vancomycin HCl 1500 mg/Sodium Chloride 515 ml @ 257.5 mls/ hr Q12H IV Last administered on 12/29/16 20:50; Start 12/27/16 at 08:00; Stop 12/29/16 at 20:35 ; Status DC Miscellaneous Information SPECIFIC LAB TO BE LEANNA... ONCE ONCE .XX ; Start 12/28 at 07:45; Stop 12/28/16 at 07:46; Status DC Miscellaneous Information SPECIFIC LAB TO BE LEANNA... ONCE ONCE .XX Last administered on 12/29/16 20:45; Start 12/29/16 at 20:45; Stop 12/29/16 at 20:46 ; Status DC Diphenhydramine HCl (Benadryl) 50 mg Q4H PRN PO itching Last administered on 20:58; Start 12/28/16 at 16:45 Vancomycin HCl 1500 mg/Sodium Chloride 515 ml @ 257.5 mls/ hr Q12H IV Last administered on 01/03/17 08:51; Start 12/29/16 at 21:00; Stop 01/03/17 at 22:00 ; Status DC Miscellaneous Information SPECIFIC LAB TO BE DRAWN:VANCO TROUGH DATE TO BE DR... ONCE ONCE .XX Last administered on 12/31/16 08:45; Start 12/31/16 at 08 :45; Stop 12/31/16 at 08:46; Status DC Miscellaneous Information SPECIFIC LAB TO BE LEANNA... ONCE ONCE .XX ; Start 01/03 at 08:45; Stop 01/03/17 at 08:46; Status DC Fluticasone Propionate (Flonase Jerzy Spr) 1 spray BID NASAL Last administered on 01/08/17 21:01; Start 01/02/17 at 21:00 Miscellaneous Information SPECIFIC LAB TO BE DRAWN:VANCOMY... ONCE ONCE .XX Last administered on 01/03/17 20:45; Start 01/03/17 at 20:45; Stop 01/03/17 at 20:46; Status DC Vancomycin HCl 1500 mg/Sodium Chloride 515 ml @ 257.5 mls/ hr Q12H IV Last administered on 01/09/17 09:39; Start 01/03/17 at 22:00 Miscellaneous Information SPECIFIC LAB TO BE LEANNA... ONCE ONCE .XX ; Start 01/04 at 21:45; Stop 01/04/17 at 21:46; Status DC Miscellaneous Information SPECIFIC LAB TO BE LEANNA... ONCE ONCE .XX ; Start 01/05 at 21:45; Stop 01/05/17 at 21:46; Status DC Calcium Carbonate (Tums Chew) 500 mg Q12HR CHEW Last administered on 01/09/17 08:19; Start 01/05/17 at 11:30 A/P Assessment and Plan A/P Bilateral open tibia-fibula fractures Left tibial plateau fracture - Open fractures have been surgically repaired, right side has external fixation - Continue wound VAC left leg as per orthopedic surgery recommendations. Undergoing serial wound vac changes per ortho - plan for wound vac change Thursday or Thursday - left tibial plateau fracture treated nonoperatively - Pin care BID to right leg - NWB BLEs - Lortab dose when necessary, Oramorph 30mg every 8 hours. -for skin graft left leg today-per ortho. -Most likely patient will need 2-3 weeks more hospitalization for irrigation with vancomycin. MRSA - wound culture 12/23 positive for MRSA -on Vanco- evaluated by ID Acute blood loss anemia JAMAR - Related to trauma vs post op blood loss - Status post transfusion of 2 units of packed red blood cells in 11/12/16. - on iron supplementation daily. - hemoglobin stable - monitor CBC as indicated Coronary artery disease with h/o previous CABG - Appears stable. Patient is asymptomatic. - Continue propranolol and statin - ASA 81mg daily - Clonidine PRN Hypertension - controlled - MARGIE inhibitor held due to hypotension. - Narcotics seem to have a depressive affect on this patient, however blood pressure has much improved after the patient was taken off IV morphine Diabetes mellitus type 2 - blood sugars well controlled - accu checks discontinued Alcohol abuse Transaminitis, resolved - AST and ALT now within normal range. - Continue with daily thiamine and folic acid - Alcohol cessation recommended Tobacco abuse - Cessation recommended. Chronic essential tremor - Continue Propranolol at lower dose due to bradycardia with holding parameters, HR <55 Allergic rhinitis - Flonase Indigestion -Patient on Protonix and Maalox. GI prophylaxis: PPI Blaine Corrales MD Jan 09, 2017 10:06
[2017-01-09 11:07] VITALS: BP 106/60; PULSE 75; RESP 18; TEMP 97.3; O2SAT 95
[2017-01-09] MEDS ORDERED: ceFAZolin 2 GM PREMIX 50 ML ONE (11:31)
[2017-01-09] MEDS ORDERED: GENTAMICIN SULFATE 80 MG/2 ML VIAL ONE (11:31)
[2017-01-09] MEDS ORDERED: MINERAL OIL 10 ML VIAL ONE (11:31)
[2017-01-09] MEDS ORDERED: LIDOCAINE 2% JELLY 30 ML TUBE ONE (11:31)
[2017-01-09] MEDS ORDERED: PROPOFOL 200 MG/20 ML AMP IV ONE (12:00)
[2017-01-09] MEDS ORDERED: NEOSTIGMINE 3 MG/3 ML SYR IV ONE (12:00)
[2017-01-09] MEDS ORDERED: PHENYLEPH/NS 1000 MCG/10 ML SYR IV ONE (12:00)
[2017-01-09] MEDS ORDERED: ePHEDrine/NS 25 MG/5 ML SYR IV ONE (12:00)
[2017-01-09] MEDS ORDERED: ROCURONIUM INJ 50 MG/5 ML SYRINGE IV PUSH ONE (12:00)
[2017-01-09] MEDS: FERROUS SULFATE 325 MG (65 MG ELEMENTAL IRON) TAB PO SCH ×2 (12:00→17:47)
[2017-01-09] MEDS ORDERED: GLYCOPYRROLATE 1 MG/5 ML SYRINGE IV PUSH ONE (12:00)
[2017-01-09] MEDS ORDERED: ONDANSETRON HCL 4 MG/2 ML VIAL IV PUSH ONE (12:00)
[2017-01-09] MEDS ORDERED: DEXAMETHASONE SOD PHOS 4 MG/ML VIAL IV ONE (12:00)
[2017-01-09] MEDS ORDERED: LIDOCAINE HCL 1% PF 5 ML AMPULE OTHER ONE (12:00)
[2017-01-09] MEDS ORDERED: LACTATED RINGER'S 1000 ML INJ 1,000 ML IV ONE (12:00)
--- NOTE | 2017-01-09 13:44 | PD.OP ---
cc: Salbador Gillis MD Operative Report Date of Surgery: Jan 09, 2017 Preoperative Diagnosis: Right distal tibia and fibula fractures with retained external fixation Open left tibia fracture with open wound Postoperative Diagnosis: Procedure: Removal of external fixation right lower extremity, irrigation debridement of left leg, split-thickness skin graft left leg, application wound VAC dressing Surgeon: Salbador Gillis Pickle Solution Maker(s): KAMALA Pereyra PA-C The surgical procedure was assisted by my physician assistant men's lacrosse coach. My P.A. presence was necessary throughout this case for the manipulation and positioning of the surgical extremity. My P.A. was assisting me throughout the duration of this procedure. The skill set of a physician assistant men's lacrosse coach was medically necessary to complete this procedure. During the surgical case the surgical pathologist was working at the back table and the physician assistant men's lacrosse coach was directly assisting me. Operation and Findings: Patient brought to operating room and given IV sedation and general anesthesia. Timeout procedure was performed. IV antibiotics were administered. Procedure began with removal of external fixation of right leg. Clamps were loosened. The clamps and bars were now removed from the pins. The pins were now removed using a drill. Dressings were applied to the right leg. The ankle was gently manipulated to improve range of motion. Next the left leg was prepped with alcohol followed by Hibiclens and draped in usual sterile fashion. Procedure began with irrigation and debridement of the open wound. Skin subcutaneous tissue and fascia were sharply debrided. Overall the wound was healthy. A excisional debridement was performed. Muscle appeared be healthy and viable. There was granulation tissue forming. Wound was now thoroughly irrigated with sterile saline. Next was turned to skin grafting. Using the Hiram dermatome set at 0.015 skin graft was obtained from the thigh. Skin graft was now meshed at a ratio of 1- 1.5. The skin graft was now placed over the open wound. Skin graft was stapled into position. The open wound was completely covered. Skin graft was now covered with Xeroform. A VAC dressing was cut to fit over the wound. VAC dressing was sealed appropriately. A compressive dressing was applied. VAC dressing was set on continuous. Patient was awakened and transferred to recovery in stable condition. Salbador Gillis MD Jan 09, 2017 13:44
[2017-01-09] MEDS ORDERED: DO NOT ADM ANY ANTICOAGULANT DRUGS PRN (13:52)
--- NOTE | 2017-01-09 14:03 | PD.ORT.PN ---
Subjective Subjective Remarks s/p left tibia IMN and right tibia ORIF with exfix s/p left tibia soleus flap s/p left tibial plateau fracture POD 0 s/p STSG left leg and removal of exfix right leg stable in pacu Objective Vitals Vital Signs Date Time Temp Pulse Resp B/P (MAP) Pulse Ox O2 Delivery O2 Flow Rate FiO2 01/09/17 11:07 97.3 75 18 106/60 (75) 95 01/09/17 08:24 97.9 66 16 99/60 (73) 96 01/09/17 04:50 98.3 72 17 102/58 (73) 95 01/08/17 20:35 97.6 68 18 129/61 (83) 98 01/08/17 15:38 97.6 65 17 109/59 (76) 96 I/O 01/08/17 01/08/17 01/08/17 01/09/17 01/09/17 01/09/17 07:00 15:00 23:00 07:00 15:00 23:00 Intake Total 515 ml 800 ml 1235 ml 0 ml 300 ml Output Total 1125 ml 1975 ml 150 ml 500 ml 15 ml Balance -610 ml -1175 ml 1085 ml -500 ml 285 ml Intake Oral 0 ml 800 ml 720 ml 0 ml IV Total 515 ml 515 ml Other 300 ml Output Urine Total 850 ml 1700 ml 500 ml Drainage Total 275 ml 275 ml 150 ml Estimated Blood Loss 15 ml # Voids 2 2 2 # Bowel Movements 0 2 0 0 Result Diagram: 01/09/17 0627 Imaging Last 24 hours Impressions Pelvis X-Ray 11/07/16 4640 Signed Impressions: Service Date/Time: Monday, November 07, 2016 13:34 - CONCLUSION: No acute disease. Behzad Finch Jr., MD Chest X-Ray 11/07/16 5001 Signed Impressions: Service Date/Time: Monday, November 07, 2016 13:34 - CONCLUSION: No acute disease. Jac Gonzales MD Objective Remarks RLE: +fracture boot. dressings clean and dry LLE: +short leg splint. intact. +vac. good seal Assessment & Plan Assessment and Plan 1) Right Open Tibia Fracture s/p exfix revision with ORIF 2) Left Open Tibia Fracture s/p Soleus muscle flap with IMN and removal of exfix 3) left tibia plateau fracture treated nonoperatively 4) s/p STSG left leg - POD 0 LLE: -50%WB for transfers only -maintain splint at all times -maintain vac at all times -vac settinmmHg, low, continuous -will plan to remove vac at bedside on thursday RLE: -NWB -fx boot at all times except for PT -PT to work on ankle ROM -daily dressing changes of pin sites with xeroform/4x4/tamia Jef Steve Jan 09, 2017 14:03
[2017-01-09] MEDS ORDERED: *morphine SULFATE 8 MG/ML PERIprocedure ONLY ONE (14:10)
--- NOTE | 2017-01-09 14:13 | RADRPT ---
EXAM DATE/TIME: 01/09/2017 12:59 [facility] COMPARISON: No previous studies available for comparison. INDICATIONS : Right ankle ex-fix removal. MEDICAL HISTORY : None. SURGICAL HISTORY : Bilateral lower extremity surgery. ENCOUNTER: Initial ACUITY: 1 day PAIN SCORE: Non-responsive. LOCATION: Right ankle CONCLUSION: Fluoroscopic images during placement of screws along the distal tibia and single long screw along the distal fibula. Fractures are again seen.. Jac Gonzales MD on January 09, 2017 at 14:11 Board Certified Radiologist. This report was verified electronically.
[2017-01-09] MEDS: LACTATED RINGER'S 1000 ML INJ 1,000 ML IV SCH ×2 (14:15→23:34)
[2017-01-09 16:00] VITALS: BP 109/61; PULSE 76; RESP 16; TEMP 96.3; O2SAT 95
[2017-01-09 20:25] VITALS: BP 122/84; PULSE 80; RESP 18; TEMP 96.6; O2SAT 98
[2017-01-09] MEDS: LIDOCAINE HCL 5% PATCH T-DERMAL SCH (21:00)
[2017-01-09] MEDS: diphenhydrAMINE HCL 50 MG CAP PO PRN (22:20)
[2017-01-09] MEDS: traZODone HCL 100 MG TAB PO SCH (22:21)
[2017-01-09] MEDS: MAGNESIUM HYDROXIDE SUSP 30 ML CUP PO SCH (22:21)
[2017-01-09] MEDS: PRAVASTATIN SOD 80 MG TAB PO SCH (22:21)
[2017-01-09] MEDS: CALCIUM CARBONATE 500 MG CHEWABLE TAB CHEW PRN (22:36)
[2017-01-10] MEDS: ACETAMINOPHEN/HYDROcodone 325 MG/10 MG TAB PO PRN ×4 (02:55→21:00)
[2017-01-10 05:06] LABS: ANION GAP 6 MEQ/L (5-15); AST (GOT) 15 U/L (15-37); BICARBONATE 29.2 MEQ/L (21.0-32.0); BLOOD UREA NITROGEN 8 MG/DL (7-18); CHLORIDE 100 MEQ/L (98-107); GLOMERULAR FILTRATION RATE 98 ML/MIN (>89); POTASSIUM 4.2 MEQ/L (3.5-5.1); SODIUM (NA) 135 MEQ/L (136-145)
[2017-01-10 05:07] LABS: ALT (GPT) 11 U/L (12-78)
[2017-01-10 05:09] LABS: ALKALINE PHOSPHATASE 65 U/L (45-117); TOTAL BILIRUBIN ADULT 0.3 MG/DL (0.2-1.0)
[2017-01-10 05:20] LABS: AUTOMATED NEUTROPHIL # 9.7 TH/MM3 (1.8-7.7); BASOPHIL % 0.3 % (0.0-2.0); HEMATOCRIT 35.1 % (39.0-51.0); HEMO FLAGS DIFF FINAL; LYMPH % 11.3 % (9.0-44.0); LYMPHOCYTE # 1.3 TH/MM3 (1.0-4.8); MEAN CELL VOLUME 91.4 FL (80.0-100.0); MEAN CORPUSCULAR HEMOGLOBIN 30.1 PG (27.0-34.0); MEAN CORPUSCULAR HGB CONC 32.9 % (32.0-36.0); MONO % 6.5 % (0.0-8.0); NEUT % 81.9 % (16.0-70.0); PLATELET COUNT 263 TH/MM3 (150-450); RED BLOOD COUNT 3.84 MIL/MM3 (4.50-5.90); RED CELL DISTRIBUTION WIDTH 13.2 % (11.6-17.2); WHITE BLOOD COUNT 11.8 TH/MM3 (4.0-11.0)
[2017-01-10] MEDS: MORPHINE SULFATE 30 MG CONTROLLED RELEASE TAB PO SCH ×3 (05:57→21:00)
[2017-01-10 08:00] VITALS: BP 135/77; PULSE 74; RESP 19; TEMP 97; O2SAT 96
[2017-01-10] MEDS: REMOVE OLD LIDOCAINE PATCH T-DERMAL SCH (09:00)
[2017-01-10] MEDS: NEOMYCIN/POLYMYXIN/BACITRACIN OINT 15 GM TUBE TOPICAL SCH (09:00)
[2017-01-10] MEDS: CALCIUM CARBONATE 500 MG CHEWABLE TAB CHEW SCH ×2 (09:05→19:55)
[2017-01-10] MEDS: FOLIC ACID 1 MG TAB PO SCH (09:05)
[2017-01-10] MEDS: THIAMINE HCL 100 MG TAB PO SCH (09:05)
[2017-01-10] MEDS: ASCORBIC ACID 500 MG TAB PO SCH ×2 (09:05→19:55)
[2017-01-10] MEDS: CALCIUM/VITAMIN D 250 MG/125 U TAB PO SCH ×3 (09:05→17:26)
[2017-01-10] MEDS: PANTOPRAZOLE SOD 40 MG DELAYED RELEASE TAB PO SCH (09:05)
[2017-01-10] MEDS: PROPRANOLOL HCL 10 MG TAB PO SCH ×2 (09:06→19:55)
[2017-01-10] MEDS: DOCUSATE SODIUM 50 MG/SENNA 8.6 MG TAB PO SCH ×2 (09:06→19:56)
[2017-01-10] MEDS: GABAPENTIN 300 MG CAP PO SCH ×3 (09:06→17:26)
[2017-01-10] MEDS: ASPIRIN 81 MG CHEW TAB CHEW SCH (09:06)
[2017-01-10] MEDS: LACTOBACILLUS ACIDOPHILUS TAB PO SCH ×3 (09:06→17:26)
[2017-01-10] MEDS: ENOXAPARIN SODIUM 40 MG/0.4 ML SYRINGE SQ SCH (09:10)
[2017-01-10] MEDS: VANCOMYCIN 1,500 MG/NS 500 ML IV SCH ×4 (09:16→21:01)
[2017-01-10] MEDS: LACTATED RINGER'S 1000 ML INJ 1,000 ML IV SCH ×2 (09:34→19:34)
[2017-01-10] MEDS: FLUTICASONE PROPIONATE 50 MCG/ACT 16 GM NASAL SPRAY NASAL SCH ×2 (09:47→19:56)
--- NOTE | 2017-01-10 10:31 | HHI.PR ---
Subjective Remarks resting comfortably with no distress. no fever. pain seems to be fairly controlled. Objective Vitals Vital Signs Date Time Temp Pulse Resp B/P (MAP) Pulse Ox O2 Delivery O2 Flow Rate FiO2 01/10/17 08:00 97.0 74 19 135/77 (96) 96 01/09/17 20:25 96.6 80 18 122/84 (97) 98 01/09/17 16:00 96.3 76 16 109/61 (77) 95 01/09/17 14:15 97.9 59 14 121/66 (84) 96 Room Air 01/09/17 14:00 61 14 122/68 (86) 97 Room Air 01/09/17 13:54 97.9 68 14 119/64 (82) 100 Room Air 01/09/17 11:07 97.3 75 18 106/60 (75) 95 I/O 01/09/17 01/09/17 01/09/17 01/10/17 01/10/17 01/10/17 07:00 15:00 23:00 07:00 15:00 23:00 Intake Total 0 ml 960 ml 360 ml 995 ml Output Total 500 ml 15 ml 400 ml 1300 ml Balance -500 ml 945 ml -40 ml -305 ml Intake Oral 0 ml 660 ml 360 ml 480 ml IV Total 515 ml Other 300 ml Output Urine Total 500 ml 400 ml 1300 ml Estimated Blood Loss 15 ml # Voids 2 2 # Bowel Movements 0 0 0 1 Result Diagram: 01/10/17 0417 01/10/17 0417 Imaging Last Impressions Ankle X-Ray 01/09/17 0000 Signed Impressions: Service Date/Time: Monday, January 09, 2017 12:59 - CONCLUSION: Fluoroscopic images during placement of screws along the distal tibia and single long screw along the distal fibula. Fractures are again seen.. Jac Gonzales MD Tibia/Fibula X-Ray 01/01/17 0000 Signed Impressions: Service Date/Time: December 09:33 - CONCLUSION: There are no complications. Paul Fuentes MD Knee X-Ray 01/01/17 0000 Signed Impressions: Service Date/Time: December 09:37 - CONCLUSION: Lateral tibial plateau fracture without involvement of the articulating surface. Paul Fuentes MD Foot X-Ray 12/27/16 0000 Signed Impressions: Service Date/Time: Tuesday, December 27, 2016 16:50 - CONCLUSION: Distal tibia and fibula fractures with internal fixation hardware. Samir Massey MD Gall Bladder Ultrasound 12/05/16 0000 Signed Impressions: Service Date/Time: Monday, December 05, 2016 08:38 - CONCLUSION: Unremarkable exam. Gallbladder is within normal limits with no evidence of cholelithiasis. Ronald Rao MD Abdomen X-Ray 12/04/16 0000 Signed Impressions: Service Date/Time: , December 04, 2016 10:42 - CONCLUSION: Unremarkable bowel gas pattern. Ronald Rao MD Chest X-Ray 11/20/16 0000 Signed Impressions: Service Date/Time: November 17:08 - CONCLUSION: 1. No acute abnormality or significant interval change. Sukhi Stevens MD Pelvis X-Ray 11/07/16 1355 Signed Impressions: Service Date/Time: Monday, November 07, 2016 13:34 - CONCLUSION: No acute disease. Behzad Finch Jr., MD Objective Remarks GENERAL: This is a well-nourished, well-developed patient, in no apparent distress. CARDIOVASCULAR: Regular rate and regular rhythm without murmurs, gallops, or rubs. RESPIRATORY: Clear to auscultation. Breath sounds equal bilaterally. No wheezes , rales, or rhonchi. GASTROINTESTINAL: Abdomen soft, non-tender, nondistended. Normal, active bowel sounds MUSCULOSKELETAL: both legs covered with clean dressing. NEURO: Alert & Oriented x4 to person, place, time, situation. Moves all ext x4 Procedures 1.s/p I&D with ex fix application bilateral tibias s/p wound vac application left tibia 2.With the assistance of RN, under sterile technique the avulsed skin of the right middle finger was clipped. No bleeding noted. Patient gave consent 3.Open reduction internal fixation of right distal tibia and fibula fractures Nonoperative treatment left tibial plateau fracture Irrigation and debridement of left tibia shaft fracture, removal external fixation, soleus muscle rotational flap, intramedullary nail fixation left tibia , application of wound VAC dressing 4.7 Irrigation and debridement of left tibia, application wound VAC dressing 5. 8/ Irrigation and debridement of left open tibia fracture with application of wound VAC dressing 6. 12/01 wound vac change at the bedside 7. 12/05 wound vac change at the bedside 8. 12/08 wound vac change at the bedside 9. 12/09 I&D left tibia, application of wound VAC dressing and application of AlloMax allograft dermal matrix 10. 01/09 Removal of external fixation right lower extremity, irrigation debridement of left leg, split-thickness skin graft left leg, application wound VAC dressing Medications and IVs Current Medications Cefazolin Sodium/ Dextrose 50 ml @ As Directed STK-MED ONCE .ROUTE Last administered on 11/13/16 08:09; Start 11/07/16 at 13:58; Stop 11/07/16 at 13:59 ; Status DC Diphtheria/ Tetanus/Acell Pertussis (Boostrix Inj) 0.5 ml STK-MED ONCE IM ; Start 11/07/16 at 13:58; Stop 11/07/16 at 13:59; Status DC Morphine Sulfate (Morphine Inj) 8 mg STK-MED ONCE .ROUTE ; Start 11/07/16 at 14: 01; Stop 11/07/16 at 14:02; Status DC Hydromorphone HCl (Dilaudid Pf Inj) 1 mg STK-MED ONCE .ROUTE Last administered on 11/07/16 19:15; Start 11/07/16 at 14:05; Stop 11/07/16 at 14:06; Status DC Lactated Ringer's 1,000 ml @ 100 mls/hr Q10H IV ; Start 11/07/16 at 14:22; Stop 11/07/16 at 19:02; Status DC Sodium Chloride (NS Flush) 2 ml UNSCH PRN IV FLUSH FLUSH AFTER USING IV ACCESS Last administered on 12/11/16 11:31; Start 11/07/16 at 14:30 Sodium Chloride (NS Flush) 2 ml BID IV FLUSH Last administered on 01/09/17 22: 21; Start 11/07/16 at 21:00 Ondansetron HCl (Zofran Inj) 4 mg Q6H PRN IV NAUSEA OR VOMITING Last administered on 12/04/16 06:13; Start 11/07/16 at 14:30 Pantoprazole Sodium (Protonix Inj) 40 mg Q24H IV Last administered on 7/21/ 17at 20:00; Start 11/07/16 at 17:00; Stop 11/08/16 at 08:09; Status DC Docusate Sodium (Colace) 100 mg BID PO ; Start 11/07/16 at 21:00; Stop 11/08/16 at 13:04; Status DC Cefazolin Sodium 1000 mg/Sodium Chloride 100 ml @ 200 mls/hr Q8H IV ; Start at 22:00; Stop 11/07/16 at 22:00; Status DC Miscellaneous Information (Post-op Orders (for Pharmacy)) STAT ONCE XX ; Start 11/07/16 at 14:30; Stop 11/07/16 at 15:39; Status DC Oxycodone/ Acetaminophen (Percocet 10-325 Mg) 1 tab Q4H PRN PO 3-5; Start 11/07 at 14:30; Stop 11/07/16 at 19:03; Status DC Hydromorphone HCl (Dilaudid Pf Inj) 1 mg Q2H PRN IV Pain 6-10; Start 11/07/16 at 14:30; Stop 11/07/16 at 19:11; Status DC Naloxone HCl (Narcan Inj) 0.4 mg UNSCH PRN IV SEE LABEL COMMENTS; Start at 14:30 Gentamicin Sulfate (Gentamicin Inj) 80 mg Q8H IM ; Start 11/07/16 at 14:30; Stop 11/07/16 at 15:37; Status DC Hydromorphone HCl (Dilaudid Pf Inj) 0.5 mg [employer]ER [employer] DOSING PRN IV PUSH pain; Start 11/07/16 at 14:45; Stop 11/07/16 at 19:11; Status DC Gentamicin Sulfate/Sodium Chloride 100 ml @ 200 mls/hr Q8H IV ; Start 11/07/16 at 17:00; Status Cancel Miscellaneous Information (Post-op Orders (for Pharmacy)) UNSCH X1 XX ; Start 11/07/16 at 15:45; Stop 11/08/16 at 06:00; Status DC Cefazolin Sodium (Ancef Inj) 1,000 mg STK-MED ONCE .ROUTE Last administered on 11/07/16t 16:26; Start 11/07/16 at 15:48; Stop 11/07/16 at 15:49; Status DC Gentamicin Sulfate (Gentamicin Inj) 80 mg STK-MED ONCE .ROUTE Last administered on 11/07/16 16:26; Start 11/07/16 at 15:49; Stop 11/07/16 at 15:50 ; Status DC Acetaminophen (Ofirmev Inj) 1,000 mg STK-MED ONCE IV ; Start 11/07/16 at 15:56; Stop 11/07/16 at 15:57; Status DC Midazolam HCl (Versed Inj) 2 mg STK-MED ONCE .ROUTE ; Start 11/07/16 at 15:56; Stop 11/07/16 at 15:57; Status DC Famotidine (Pepcid Inj) 20 mg STK-MED ONCE .ROUTE ; Start 11/07/16 at 15:56; Stop 11/07/16 at 15:57; Status DC Gentamicin Sulfate (Gentamicin Inj) 240 mg STK-MED ONCE IRRIGATION Last administered on 11/07/16 16:26; Start 11/07/16 at 16:26; Stop 11/07/16 at 16:42 ; Status DC Fentanyl Citrate (fentaNYL INJ) 250 mcg STK-MED ONCE .ROUTE ; Start 11/07/16 at 17:03; Stop 11/07/16 at 17:04; Status DC Gentamicin Sulfate (Gentamicin Inj) 240 mg STK-MED ONCE .ROUTE Last administered on 11/07/16 16:26; Start 11/07/16 at 17:10; Stop 11/07/16 at 17:11 ; Status DC Lactated Ringer's 1,000 ml @ 100 mls/hr Q10H IV Last administered on 07:51; Start 11/07/16 at 18:00; Stop 11/08/16 at 12:46; Status DC Enoxaparin Sodium (Lovenox Inj) 30 mg Q12H SQ ; Start 11/08/16 at 17:00; Stop at 11:48; Status DC Cefazolin Sodium/ Dextrose 50 ml @ 100 mls/hr Q8H IV Last administered on 11/10 08:16; Start 11/08/16 at 00:00; Stop 11/10/16 at 12:47; Status DC Gentamicin Sulfate/Sodium Chloride 100 ml @ 200 mls/hr Q8H IV Last administered on 11/10/16 16:30; Start 11/08/16 at 00:00; Stop 11/10/16 at 16:29 ; Status DC Acetaminophen/ Hydrocodone Bitart ([place] 10-325 Mg) 1 tab Q3H PRN PO PAIN 3<10 Last administered on 11/08/16 10:36; Start 11/07/16 at 18:00; Stop 11/08/16 at 13:04; Status DC Morphine Sulfate (Morphine Inj) 4 mg Q3H PRN IV PUSH Break thru Pain Last administered on 11/08/16 07:50; Start 11/07/16 at 18:00; Stop 11/08/16 at 12:21 ; Status DC Ketorolac Tromethamine (Toradol Inj) 30 mg Q12H IVP Last administered on 05:32; Start 11/07/16 at 18:00; Stop 11/10/16 at 06:01; Status DC Bacitracin (Baciguent Oint) 15 applic STK-MED ONCE .ROUTE Last administered on 11/07/16 18:09; Start 11/07/16 at 18:09; Stop 11/07/16 at 18:10; Status DC Miscellaneous Information ALL NURSING DEPARTME... UNSCH PRN .XX SEE LABEL COMMENTS; Start 11/07/16 at 18:33; Stop 11/08/16 at 18:32; Status DC Acetaminophen (Tylenol) 650 mg Q4H PRN PO Temp > 100.4, pain 1-2; Start at 08:15 Magnesium Hydroxide (Milk Of Magnesia Liq) 30 ml DAILY PRN PO for Severe Constipation Last administered on 11/09/16 20:15; Start 11/08/16 at 08:15; Stop 11/10/16 at 09:00; Status DC Calcium Carbonate (Tums Chew) 1,000 mg TID PRN CHEW DYSPEPSIA Last administered on 01/09/17 22:36; Start 11/08/16 at 08:15 Dextrose (D50w (Vial) Inj) 50 ml UNSCH PRN IV HYPOGLYCEMIA-SEE COMMENTS; Start 11/08/16 at 08:15; Stop 12/03/16 at 09:16; Status DC Glucagon (Glucagon Inj) 1 mg UNSCH PRN OTHER HYPOGLYCEMIA-SEE COMMENTS; Start 11/08/16 at 08:15; Stop 12/03/16 at 09:16; Status DC Insulin Aspart (NovoLOG SUPPLEMENTAL SCALE) 1 ACHS SLIDING SCALE SQ Last administered on 12/01/16 13:21; Start 11/08/16 at 11:00; Stop 12/03/16 at 09:16 ; Status DC Enalaprilat (Vasotec Inj) 1.25 mg Q6H PRN IV SBP> OR = 180, DBP> OR = 100; Start 11/08/16 at 08:15 Clonidine (Catapres) 0.1 mg Q6H PRN PO SBP> OR = 180, DBP> OR = 100; Start at 08:15 Gabapentin (Neurontin) 400 mg TID PO Last administered on 11/16/16 09:10; Start 11/08/16 at 13:00; Stop 11/16/16 at 11:46; Status DC Morphine Sulfate (Morphine Inj) 6 mg Q3H PRN IV PUSH PAIN 6-10 Last administered on 11/17/16 15:09; Start 11/08/16 at 15:00; Stop 11/18/16 at 16:37 ; Status DC Aspirin (Aspirin Chew) 81 mg DAILY CHEW Last administered on 01/10/17 09:06; Start 11/08/16 at 12:45 Ferrous Sulfate (Ferrous Sulfate) 325 mg DAILY PO Last administered on 08:11; Start 11/08/16 at 12:45; Stop 12/05/16 at 09:25; Status DC Lisinopril (Prinivil) 25 mg DAILY PO Last administered on 11/18/16 09:59; Start 11/08/16 at 12:45; Status Future Hold Nitroglycerin (Nitrostat Sl) 0.4 mg Q6HR PRN SL CHEST PAIN; Start 11/08/16 at 12:45 Pantoprazole Sodium (Protonix) 40 mg DAILY PO Last administered on 01/10/17 09 :05; Start 11/08/16 at 12:45 Pravastatin Sodium (Pravachol) 80 mg HS PO Last administered on 01/09/17 22:21 ; Start 11/08/16 at 21:00 Propranolol HCl (Inderal) 80 mg Q12HR PO Last administered on 11/18/16 10:01; Start 11/08/16 at 21:00; Stop 11/22/16 at 12:49; Status DC Miscellaneous (Pill Splitter) 1 ea UNSCH PRN OTHER SEE LABEL COMMENTS; Start at 12:45 Senna/Docusate Sodium ([place]ke-Colace) 1 tab BID PO Last administered on 09:06; Start 11/08/16 at 12:45; Status Future hold Lactulose (Lactulose Liq) 30 ml DAILY PRN PO No BM in 2 days; Start 11/08/16 at 12:45; Stop 11/10/16 at 07:47; Status DC Acetaminophen/ Hydrocodone Bitart ([place] 10-325 Mg) 1.5 tab Q3H PRN PO PAIN 3- 10 Last administered on 11/09/16 23:46; Start 11/08/16 at 15:00; Stop 11/10/16 at 12:45; Status DC Folic Acid (Folate) 1 mg DAILY PO Last administered on 11/12/16 09:14; Start 11/09/16 at 09:00; Stop 11/14/16 at 08:59; Status DC Thiamine HCl (Vitamin B1) 100 mg DAILY PO Last administered on 01/10/17 09:05 ; Start 11/09/16 at 09:00 Multivitamins/ Minerals Therapeutic (Theragran M Tab) 1 tab DAILY PO Last administered on 11/12/16 09:13; Start 11/09/16 at 09:00; Stop 11/14/16 at 08:59 ; Status DC Flumazenil (Romazicon Inj) 0.2 mg Q1M PRN IV PUSH SEE LABEL COMMENTS; Start at 13:00 Lorazepam (Ativan) 1 mg Q4H PRN PO CIWA 8 - 10; Start 11/08/16 at 13:00; Stop 11/26/16 at 16:05; Status DC Lorazepam (Ativan Inj) 1 mg Q4H PRN IV PUSH CIWA 8 - 10; Start 11/08/16 at 13: 00; Stop 11/26/16 at 16:05; Status DC Lorazepam (Ativan) 2 mg Q2H PRN PO CIWA 11-14; Start 11/08/16 at 13:00; Stop at 16:05; Status DC Lorazepam (Ativan Inj) 2 mg Q2H PRN IV PUSH CIWA 11-14; Start 11/08/16 at 13:00 ; Stop 11/26/16 at 16:05; Status DC Lorazepam (Ativan Inj) 2 mg Q1H PRN IV PUSH CIWA 15-20; Start 11/08/16 at 13:00 ; Stop 11/26/16 at 16:05; Status DC Lorazepam (Ativan Inj) 2 mg Q15M PRN IV PUSH CIWA > 20; Start 11/08/16 at 13:00 ; Stop 11/26/16 at 16:05; Status DC Haloperidol Lactate (Haldol Inj) 2 mg Q15M PRN IM SEE LABEL COMMENTS; Start at 13:00 Lactated Ringer's 1,000 ml @ 30 mls/hr Q24H PRN IV SEE LABEL COMMENTS; Start at 00:45; Stop 11/09/16 at 12:05; Status DC Sodium Chloride 500 ml @ 30 mls/hr [id number] PRN IV SEE LABEL COMMENTS; Start at 00:45; Stop 11/09/16 at 12:05; Status DC Metoprolol Tartrate (Lopressor) 25 mg [employer] PRN PO SEE LABEL COMMENTS; Start 11/09/16 at 00:45; Stop 11/12/16 at 00:44; Status DC Povidone Iodine (Betadine 5% Antisepsis Kit) 1 applic [employer] PRN EACH NARE SEE LABEL COMMENTS; Start 11/09/16 at 00:45; Stop 11/12/16 at 00:44; Status DC Chlorhexidine Gluconate (Chlorhexidine 2% Cloth) 3 pack [employer] PRN TOPICAL SEE LABEL COMMENTS; Start 11/09/16 at 00:45; Stop 11/09/16 at 12:05; Status DC Insulin Human Regular (NovoLIN R INJ) See Protocol Table ... [employer]ANT PRN SQ SEE PROTOCOL TABLE; Start 11/09/16 at 00:45; Stop 11/12/16 at 00:44; Status DC Potassium Chloride (KCl) 20 meq ONCE ONCE PO Last administered on 11/09/16t 11 :40; Start 11/09/16 at 11:00; Stop 11/09/16 at 11:01; Status DC Neomycin/ Polymyxin/ Bacitracin (Neosporin Oint) 1 applic DAILY TOPICAL Last administered on 01/10/17 09:00; Start 11/10/16 at 09:00 Lactulose (Lactulose Liq) 30 ml DAILY PO Last administered on 12/02/16 09:18; Start 11/10/16 at 09:00; Stop 12/08/16 at 09:52; Status DC Magnesium Hydroxide (Milk Of Magnesia Liq) 30 ml HS PO Last administered on 22:21; Start 11/10/16 at 21:00; Status Future hold Famotidine (Pepcid Inj) 20 mg STK-MED ONCE .ROUTE Last administered on 08:51; Start 11/10/16 at 08:51; Stop 11/10/16 at 08:52; Status DC Albuterol Sulfate (Albuterol Neb) 2.5 mg STK-MED ONCE .ROUTE Last administered on 11/10/16 08:55; Start 11/10/16 at 08:53; Stop 11/10/16 at 08:54; Status DC Gentamicin Sulfate (Gentamicin Inj) 240 mg STK-MED ONCE .ROUTE Last administered on 11/10/16 09:48; Start 11/10/16 at 09:02; Stop 11/10/16 at 09:03 ; Status DC Acetaminophen (Ofirmev Inj) 1,000 mg STK-MED ONCE IV ; Start 11/10/16 at 09:13; Stop 11/10/16 at 09:14; Status DC Lactated Ringer's 1,000 ml @ 100 mls/hr Q10H IV Last administered on 00:53; Start 11/10/16 at 13:00; Stop 11/11/16 at 11:56; Status DC Enoxaparin Sodium (Lovenox Inj) 30 mg Q12H SQ Last administered on 12/04/16 00 :03; Start 11/11/16 at 00:00; Stop 12/04/16 at 09:43; Status DC Cefazolin Sodium/ Dextrose 50 ml @ 100 mls/hr Q8H IV Last administered on 11/13 00:05; Start 11/10/16 at 16:00; Stop 11/13/16 at 08:29; Status DC Gentamicin Sulfate/Sodium Chloride 100 ml @ 200 mls/hr Q8H IV Last administered on 11/13/16 10:00; Start 11/10/16 at 18:00; Stop 11/13/16 at 10:29 ; Status DC Acetaminophen/ Hydrocodone Bitart ([place] 10-325 Mg) 1 tab Q3H PRN PO PAIN 3<10 Last administered on 11/18/16 04:34; Start 11/10/16 at 11:45; Stop 11/18/16 at 16 :37; Status DC Calcium/Vitamin D (Oscal-D 250-125) 250 mg TID PO Last administered on 09:05; Start 11/10/16 at 13:00 Meperidine HCl (*DEMEROL INJ PERIprocedural ONLY) 25 mg STK-MED ONCE .ROUTE Last administered on 11/10/16 12:36; Start 11/10/16 at 12:36; Stop 11/10/16 at 12:37; Status DC Miscellaneous Information ALL NURSING DEPARTME... UNSCH PRN .XX SEE LABEL COMMENTS; Start 11/10/16 at 12:29; Stop 11/11/16 at 12:28; Status DC Midazolam HCl (Versed Inj) 2 mg STK-MED ONCE .ROUTE ; Start 11/10/16 at 12:48; Stop 11/10/16 at 12:49; Status DC Fentanyl Citrate (fentaNYL INJ) 250 mcg STK-MED ONCE .ROUTE ; Start 11/10/16 at 12:48; Stop 11/10/16 at 12:49; Status DC Morphine Sulfate (*morphine INJ PERIprocedure ONLY) 8 mg STK-MED ONCE .ROUTE Last administered on 11/10/16 14:36; Start 11/10/16 at 14:36; Stop 11/10/16 at 14:37; Status DC Bisacodyl (Dulcolax Ec) 10 mg ONCE ONCE PO Last administered on 11/11/16 10: 17; Start 11/11/16 at 07:00; Stop 11/11/16 at 07:04; Status DC Bisacodyl (Dulcolax Supp) 10 mg ONCE ONCE RECTAL Last administered on 7/25/ 17at 10:17; Start 11/11/16 at 07:00; Stop 11/11/16 at 07:04; Status DC Sodium Chloride 250 ml @ 15 mls/hr ONCE ONCE IV Last administered on t 11:19; Start 11/11/16 at 11:15; Stop 11/12/16 at 03:54; Status DC Furosemide (Lasix Inj) 20 mg ONCE ONCE IV ; Start 11/11/16 at 11:15; Stop 11/11 at 11:16; Status Cancel Furosemide (Lasix Inj) 20 mg ONCE ONCE IV Last administered on 11/12/16t 11:18 ; Start 11/12/16 at 11:00; Stop 11/12/16 at 11:01; Status DC Albuterol/ Ipratropium (Duoneb Neb) 1 ampule Q4HR NEB PRN NEB wheezing; Start 11/12/16 at 13:15 Lactated Ringer's 1,000 ml @ 30 mls/hr Q24H PRN IV SEE LABEL COMMENTS; Start at 05:00; Stop 11/16/16 at 04:59; Status Cancel Sodium Chloride 500 ml @ 30 mls/hr [id number] PRN IV SEE LABEL COMMENTS; Start at 05:00; Stop 11/16/16 at 04:59; Status DC Metoprolol Tartrate (Lopressor) 25 mg [employer] PRN PO SEE LABEL COMMENTS; Start 11/13/16 at 05:00; Stop 11/16/16 at 04:59; Status DC Povidone Iodine (Betadine 5% Antisepsis Kit) 1 applic [employer] PRN EACH NARE SEE LABEL COMMENTS; Start 11/13/16 at 05:00; Stop 11/16/16 at 04:59; Status DC Chlorhexidine Gluconate (Chlorhexidine 2% Cloth) 3 pack [employer] PRN TOPICAL SEE LABEL COMMENTS; Start 11/13/16 at 05:00; Stop 11/16/16 at 04:59; Status DC Lidocaine HCl (Xylocaine 2% Jelly) 30 applic STK-MED ONCE .ROUTE ; Start at 07:15; Stop 11/13/16 at 07:16; Status DC Mineral Oil (Muri-Lube Oil) 10 ml STK-MED ONCE .ROUTE ; Start 11/13/16 at 07:15 ; Stop 11/13/16 at 07:16; Status DC Gentamicin Sulfate (Gentamicin Inj) 240 mg STK-MED ONCE .ROUTE Last administered on 11/13/16 08:20; Start 11/13/16 at 07:15; Stop 11/13/16 at 07:16 ; Status DC Albuterol Sulfate (Albuterol Neb) 2.5 mg STK-MED ONCE .ROUTE ; Start 11/13/16 at 07:34; Stop 11/13/16 at 07:35; Status DC Dexamethasone Sodium Phosphate (Decadron Inj) 4 mg STK-MED ONCE .ROUTE ; Start 11/13/16 at 07:36; Stop 11/13/16 at 07:37; Status DC Famotidine (Pepcid Inj) 20 mg STK-MED ONCE .ROUTE ; Start 11/13/16 at 07:36; Stop 11/13/16 at 07:37; Status DC Albuterol/ Ipratropium (Duoneb Neb) 1 ampule STK-MED ONCE .ROUTE Last administered on 11/13/16 07:50; Start 11/13/16 at 07:47; Stop 11/13/16 at 07:48 ; Status DC Lactated Ringer's 1,000 ml @ 100 mls/hr Q10H IV Last administered on 12:14; Start 11/13/16 at 08:42; Stop 11/18/16 at 16:33; Status DC Cefazolin Sodium/ Dextrose 50 ml @ 100 mls/hr Q8H IV Last administered on 04:43; Start 11/13/16 at 12:00; Stop 11/20/16 at 11:59; Status DC Gentamicin Sulfate/Sodium Chloride 100 ml @ 200 mls/hr Q8H IV Last administered on 11/16/16 09:14; Start 11/13/16 at 18:00; Stop 11/16/16 at 17:59 ; Status DC Midazolam HCl (Versed Inj) 2 mg STK-MED ONCE .ROUTE ; Start 11/13/16 at 09:25; Stop 11/13/16 at 09:26; Status DC Fentanyl Citrate (fentaNYL INJ) 250 mcg STK-MED ONCE .ROUTE ; Start 11/13/16 at 09:25; Stop 11/13/16 at 09:26; Status DC Zolpidem Tartrate (Ambien) 5 mg HS PRN PO Insomnia Last administered on 22:24; Start 11/14/16 at 11:00 Trazodone HCl (Desyrel) 100 mg HS PO Last administered on 01/09/17 22:21; Start 11/14/16 at 21:00 Morphine Sulfate (Oramorph Sr) 15 mg Q12HR PO Last administered on 11/18/16 10: 00; Start 11/16/16 at 21:00; Stop 11/18/16 at 16:36; Status DC Morphine Sulfate (Oramorph Sr) 15 mg ONCE ONCE PO Last administered on 12:32; Start 11/16/16 at 10:15; Stop 11/16/16 at 10:24; Status DC Gabapentin (Neurontin) 600 mg TID PO Last administered on 01/10/17 09:06; Start 11/16/16 at 13:00 Sodium Chloride 1,000 ml @ 999 mls/hr BOLUS ONCE IV Last administered on 17:22; Start 11/18/16 at 16:45; Stop 11/18/16 at 17:45; Status DC Morphine Sulfate (Oramorph Sr) 30 mg Q12HR PO Last administered on 11/29/16 09 :24; Start 11/18/16 at 21:00; Stop 11/29/16 at 14:26; Status DC Morphine Sulfate (Morphine Inj) 6 mg Q4H PRN IV PUSH PAIN SCALE 5 TO 10 Last administered on 11/19/16 05:59; Start 11/18/16 at 16:45; Stop 11/20/16 at 00:46; Status DC Morphine Sulfate (Morphine Inj) 3 mg Q3H PRN IV PUSH PAIN SCALE 1 TO 4 Last administered on 11/19/16 16:36; Start 11/18/16 at 16:45; Stop 11/20/16 at 00:46; Status DC Sodium Chloride 1,000 ml @ 125 mls/hr Q8H IV Last administered on 11/19/16 16: 15; Start 11/19/16 at 00:15; Stop 11/19/16 at 19:21; Status DC Sodium Chloride 500 ml @ 500 mls/hr BOLUS ONCE IV Last administered on 00:15; Start 11/19/16 at 00:15; Stop 11/19/16 at 01:14; Status DC Nystatin (Mycostatin Powder) 1 applic Q12HR TOPICAL Last administered on 08:54; Start 11/19/16 at 21:00; Stop 11/28/16 at 13:46; Status DC Acetaminophen/ Hydrocodone Bitart ([place] 7.5-325 Mg) 1 tab Q4H PRN PO PAIN SCALE 1 TO 4; Start 11/20/16 at 00:45; Stop 11/28/16 at 13:46; Status DC Acetaminophen/ Hydrocodone Bitart ([place] 10-325 Mg) 1 tab Q4H PRN PO PAIN SCALE 3-5 Last administered on 12/23/16 08:58; Start 11/20/16 at 00:45 Hydromorphone HCl (Dilaudid Pf Inj) 1 mg Q4H PRN IV PUSH BREAKTHROUGH PAIN Last administered on 12/17/16 10:38; Start 11/20/16 at 00:45; Stop 12/18/16 at 10:47; Status DC Propranolol HCl (Inderal) 40 mg Q12HR PO Last administered on 12/08/16 08:01; Start 11/22/16 at 21:00; Stop 12/08/16 at 10:00; Status DC Lactated Ringer's 1,000 ml @ 30 mls/hr Q24H PRN IV SEE LABEL COMMENTS; Start at 02:45; Stop 11/27/16 at 02:44; Status DC Sodium Chloride 500 ml @ 30 mls/hr [id number] PRN IV SEE LABEL COMMENTS; Start 11/24/16 at 02:45; Stop 11/27/16 at 02:44; Status DC Povidone Iodine (Betadine 5% Antisepsis Kit) 1 applic [employer] PRN EACH NARE SEE LABEL COMMENTS; Start 11/24/16 at 02:45; Stop 11/27/16 at 02:44; Status DC Chlorhexidine Gluconate (Chlorhexidine 2% Cloth) 3 pack [employer] PRN TOPICAL SEE LABEL COMMENTS; Start 11/24/16 at 02:45; Stop 11/27/16 at 02:44; Status DC Insulin Human Regular (NovoLIN R INJ) See Protocol Table ... [employer] PRN SQ SEE PROTOCOL TABLE; Start 11/24/16 at 02:45; Stop 11/27/16 at 02:44; Status DC Prochlorperazine Edisylate (Compazine Inj) 10 mg Q8H PRN IV PUSH NAUSEA/ VOMITING Last administered on 11/25/16 18:00; Start 11/25/16 at 16:15 Sodium Chloride 500 ml @ 500 mls/hr BOLUS ONCE IV Last administered on 18:06; Start 11/25/16 at 17:00; Stop 11/25/16 at 17:59; Status DC Gentamicin Sulfate (Gentamicin Inj) 240 mg STK-MED ONCE .ROUTE Last administered on 11/28/16 10:42; Start 11/28/16 at 07:18; Stop 11/28/16 at 07:19 ; Status DC Vancomycin HCl (Vancomycin Inj) 1,000 mg STK-MED ONCE .ROUTE Last administered on 12/09/16 15:25; Start 11/28/16 at 07:38; Stop 11/28/16 at 07:39; Status DC Cefazolin Sodium/ Dextrose 50 ml @ As Directed STK-MED ONCE .ROUTE Last administered on 12/09/16 15:20; Start 11/28/16 at 07:38; Stop 11/28/16 at 07:39 ; Status DC Sodium Chloride 250 ml @ As Directed STK-MED ONCE .ROUTE ; Start 11/28/16 at 07 :39; Stop 11/28/16 at 07:40; Status DC Fentanyl Citrate (fentaNYL INJ) 250 mcg STK-MED ONCE .ROUTE ; Start 11/28/16 at 10:15; Stop 11/28/16 at 10:16; Status DC Cefazolin Sodium (Ancef Inj) 1,000 mg STK-MED ONCE .ROUTE Last administered on 11/28/16 10:31; Start 11/28/16 at 10:23; Stop 11/28/16 at 10:24; Status DC Lactated Ringer's 1,000 ml @ 100 mls/hr Q10H IV ; Start 11/28/16 at 10:59; Stop 12/03/16 at 09:16; Status DC Cefazolin Sodium/ Dextrose 50 ml @ 100 mls/hr Q8H IV Last administered on 12/01 06:46; Start 11/28/16 at 15:00; Stop 12/01/16 at 14:59; Status DC Magnesium Hydroxide (Milk Of Clyde Ortega) 30 ml Q12H PRN PO MILD - MODERATE CONSTIPATION Last administered on 12/26/16 10:08; Start 11/28/16 at 11:30 Sennosides (Senokot) 17.2 mg Q12H PRN PO MODERATE - SEVERE CONSTIPATION Last administered on 12/25/16 09:48; Start 11/28/16 at 11:30 Bisacodyl (Dulcolax Supp) 10 mg DAILY PRN RECTAL SEVERE CONSITIPATION Last administered on 12/11/16 12:30; Start 11/28/16 at 11:30 Albuterol Sulfate (*ALBUTEROL NEB PERIprocedure ONLY) 2.5 mg STK-MED ONCE NEB Last administered on 11/28/16 11:38; Start 11/28/16 at 11:38; Stop 11/28/16 at 11:39; Status DC Dexamethasone Sodium Phosphate (Decadron Inj) 4 mg STK-MED ONCE .ROUTE ; Start 11/28/16 at 11:51; Stop 11/28/16 at 11:52; Status DC Dexamethasone Sodium Phosphate (Decadron Inj) 4 mg NOW ONCE IV Last administered on 11/28/16 12:00; Start 11/28/16 at 12:00; Stop 11/28/16 at 12:01 ; Status DC Miscellaneous Information ALL NURSING DEPARTME... UNSCH PRN .XX SEE LABEL COMMENTS; Start 11/28/16 at 11:22; Stop 11/29/16 at 11:21; Status DC Morphine Sulfate (*morphine INJ PERIprocedure ONLY) 8 mg STK-MED ONCE .ROUTE Last administered on 11/28/16 12:01; Start 11/28/16 at 12:01; Stop 11/28/16 at 12:02; Status DC Acetaminophen/ Hydrocodone Bitart ([place] 10-325 Mg) 1.5 tab Q4H PRN PO pain 6- 10 Last administered on 12/23/16 17:35; Start 11/28/16 at 15:00; Stop 12/23/16 at 18:38; Status DC Nystatin (Mycostatin Cream) 1 applic Q6HR TOPICAL Last administered on 05:00; Start 11/28/16 at 14:00; Stop 12/16/16 at 13:46; Status DC Morphine Sulfate (Oramorph Sr) 30 mg Q8HR PO Last administered on 12/03/16 06: 09; Start 11/29/16 at 22:00; Stop 12/03/16 at 12:16; Status DC Cetirizine HCl (ZyrTEC) 10 mg HS PO Last administered on 12/07/16 20:03; Start 12/01/16 at 21:00; Stop 12/08/16 at 20:59; Status DC Fluticasone Propionate (Flonase Jerzy Spr) 2 spray DAILY EACH NARE Last administered on 12/15/16 08:54; Start 12/01/16 at 11:00; Stop 12/15/16 at 10:59 ; Status DC Folic Acid (Folate) 1 mg DAILY PO Last administered on 01/10/17 09:05; Start 12/03/16 at 09:00 Morphine Sulfate (Oramorph Sr) 30 mg Q8HR PO Last administered on 01/10/17 05: 57; Start 12/03/16 at 14:00 Lactobacillus Acidophilus (Lactinex) 1 tab TID PO Last administered on 08:10; Start 12/04/16 at 09:00; Stop 12/05/16 at 09:26; Status DC Enoxaparin Sodium (Lovenox Inj) 40 mg DAILY SQ Last administered on 01/10/17 09:10; Start 12/05/16 at 09:00 Al Hydrox/Mg Hydrox/Simethicone (Mag-Al Plus Susp Liq) 30 ml ONCE ONCE PO Last administered on 12/04/16 11:55; Start 12/04/16 at 11:45; Stop 12/04/16 at 11:50; Status DC Al Hydrox/Mg Hydrox/Simethicone (Mag-Al Plus Susp Liq) 30 ml Q6HR PRN PO HEARTBURN, INDIGESTION Last administered on 01/06/17 11:29; Start 12/04/16 at 18:00 Sucralfate (Carafate Liq) 1 gm QID PO Last administered on 12/16/16 13:41; Start 12/05/16 at 09:00; Stop 12/16/16 at 13:43; Status DC Lactobacillus Acidophilus (Lactinex) 1 tab BID PO Last administered on 09:36; Start 12/05/16 at 21:00; Stop 12/18/16 at 10:47; Status DC Polyethylene Glycol (Miralax) 17 gm DAILY PRN PO CONSTIPATION; Start 12/08/16 at 10:00; Stop 12/11/16 at 15:18; Status DC Propranolol HCl (Inderal) 20 mg Q12HR PO Last administered on 12/09/16 20:34; Start 12/08/16 at 21:00; Stop 12/10/16 at 07:34; Status DC Lactated Ringer's 1,000 ml @ 30 mls/hr Q24H PRN IV SEE LABEL COMMENTS; Start at 01:30; Stop 12/12/16 at 01:29; Status DC Sodium Chloride 500 ml @ 30 mls/hr [id number] PRN IV SEE LABEL COMMENTS; Start at 01:30; Stop 12/12/16 at 01:29; Status DC Povidone Iodine (Betadine 5% Antisepsis Kit) 1 applic [employer] PRN EACH NARE SEE LABEL COMMENTS; Start 12/09/16 at 01:30; Stop 12/12/16 at 01:29; Status DC Chlorhexidine Gluconate (Chlorhexidine 2% Cloth) 3 pack [employer] PRN TOPICAL SEE LABEL COMMENTS; Start 12/09/16 at 01:30; Stop 12/12/16 at 01:29; Status DC Insulin Human Regular (NovoLIN R INJ) See Protocol Table ... [employer] PRN SQ SEE PROTOCOL TABLE; Start 12/09/16 at 01:30; Stop 12/12/16 at 01:29; Status DC Bupivacaine HCl/ Epinephrine Bitart (Sensorcaine-Epinephrine 0.25% Inj) 50 ml STK-MED ONCE .ROUTE ; Start 12/09/16 at 14:07; Stop 12/09/16 at 14:08; Status DC Mineral Oil (Muri-Lube Oil) 10 ml STK-MED ONCE .ROUTE ; Start 12/09/16 at 14:07 ; Stop 12/09/16 at 14:08; Status DC Gentamicin Sulfate (Gentamicin Inj) 240 mg STK-MED ONCE .ROUTE Last administered on 12/09/16 15:31; Start 12/09/16 at 14:07; Stop 12/09/16 at 14:08 ; Status DC Vancomycin HCl (Vancomycin Inj) 1,000 mg STK-MED ONCE .ROUTE ; Start 12/09/16 at 15:06; Stop 12/09/16 at 15:07; Status DC Cefazolin Sodium/ Dextrose 50 ml @ As Directed STK-MED ONCE .ROUTE ; Start 12/09 at 15:06; Stop 12/09/16 at 15:07; Status DC Lactated Ringer's 1,000 ml @ 100 mls/hr Q10H IV ; Start 12/09/16 at 15:57; Stop 12/16/16 at 13:45; Status DC Cefazolin Sodium/ Dextrose 50 ml @ 100 mls/hr Q8H IV Last administered on 12/16 13:42; Start 12/09/16 at 20:00; Stop 12/16/16 at 19:59; Status DC Gentamicin Sulfate/Sodium Chloride 100 ml @ 200 mls/hr Q8H IV Last administered on 12/12/16 12:25; Start 12/09/16 at 21:00; Stop 12/12/16 at 20:59 ; Status DC Morphine Sulfate (*morphine INJ PERIprocedure ONLY) 8 mg STK-MED ONCE .ROUTE Last administered on 12/09/16 16:32; Start 12/09/16 at 16:32; Stop 12/09/16 at 16:33; Status DC Fentanyl Citrate (fentaNYL INJ) 250 mcg STK-MED ONCE .ROUTE ; Start 12/09/16 at 16:33; Stop 12/09/16 at 16:34; Status DC Miscellaneous Information ALL NURSING DEPARTME... UNSCH PRN .XX SEE LABEL COMMENTS; Start 12/09/16 at 16:20; Stop 12/10/16 at 16:19; Status DC Morphine Sulfate (*morphine INJ PERIprocedure ONLY) 8 mg STK-MED ONCE .ROUTE Last administered on 12/09/16 17:01; Start 12/09/16 at 17:01; Stop 12/09/16 at 17:02; Status DC Propranolol HCl (Inderal) 10 mg Q12HR PO Last administered on 12/13/16 09:42; Start 12/10/16 at 09:00; Stop 12/13/16 at 10:32; Status DC Menthol/Methyl Salicylate (Aleks Daniels Oint) 1 applic UNSCH PRN TOPICAL arthritic pain Last administered on 12/12/16 17:51; Start 12/11/16 at 15:30 Propranolol HCl (Inderal) 20 mg Q12HR PO ; Start 12/13/16 at 21:00; Stop at 21:00; Status DC Propranolol HCl (Inderal) 10 mg Q12HR PO Last administered on 01/10/17 09:06; Start 12/13/16 at 21:00 Bacitracin (Baciguent Oint) 1 applic DAILY PRN TOPICAL WOUND VAC DRESSING CHANGE; Start 12/15/16 at 12:30 Sucralfate (Carafate Liq) 1 gm BID PO Last administered on 12/30/16 08:30; Start 12/16/16 at 21:00; Stop 12/30/16 at 20:59; Status DC Lidocaine HCl (Lidoderm 5% Patch.12 Hr) 1 patch DAILY T-DERMAL Last administered on 12/18/16 11:33; Start 12/18/16 at 10:00; Stop 12/19/16 at 19:35 ; Status DC Miscellaneous Information 1 Q24H T-DERMAL ; Start 12/18/16 at 21:00; Stop at 19:35; Status DC Lactobacillus Acidophilus (Lactinex) 1 tab TID PO Last administered on 09:06; Start 12/18/16 at 13:00 Lidocaine HCl (Lidoderm 5% Patch.12 Hr) 1 patch HS T-DERMAL Last administered on 01/03/17 20:55; Start 12/19/16 at 21:00 Miscellaneous Information 1 Q24H T-DERMAL Last administered on 12/24/16 09:00; Start 12/20/16 at 09:00 Propofol (Diprivan 200 Mg/20 ml Inj) 200 mg STK-MED ONCE IV ; Start 11/07/16 at 12:00; Stop 12/23/16 at 10:36; Status DC Ephedrine Sulfate (ePHEDrine/NS 25 MG/5 ML SYR) 50 mg STK-MED ONCE IV ; Start at 12:00; Stop 12/23/16 at 10:36; Status DC Neostigmine Methylsulfate (Prostigmin Inj) 3 mg STK-MED ONCE IV ; Start at 12:00; Stop 12/23/16 at 10:36; Status DC Phenylephrine HCl (Neosynephrine/ NS 1000 Mcg/10ml Syr) 1,000 mcg STK-MED ONCE IV ; Start 11/07/16 at 12:00; Stop 12/23/16 at 10:37; Status DC Ondansetron HCl (Zofran Inj) 4 mg STK-MED ONCE IV PUSH ; Start 11/07/16 at 12:00 ; Stop 12/23/16 at 10:37; Status DC Lactated Ringer's 1,000 ml @ As Directed STK-MED ONCE IV ; Start 11/07/16 at 12 :00; Stop 12/23/16 at 10:37; Status DC Parenteral Electrolytes 1,000 ml @ As Directed STK-MED ONCE IV ; Start at 12:00; Stop 12/23/16 at 10:37; Status DC Propofol (Diprivan 200 Mg/20 ml Inj) 400 mg STK-MED ONCE IV ; Start 11/10/16 at 12:00; Stop 12/23/16 at 12:04; Status DC Phenylephrine HCl (Neosynephrine/ NS 1000 Mcg/10ml Syr) 2,000 mcg STK-MED ONCE IV ; Start 11/10/16 at 12:00; Stop 12/23/16 at 12:04; Status DC Ondansetron HCl (Zofran Inj) 4 mg STK-MED ONCE IV PUSH ; Start 11/10/16 at 12:00 ; Stop 12/23/16 at 12:04; Status DC Lactated Ringer's 1,000 ml @ As Directed STK-MED ONCE IV ; Start 11/10/16 at 12 :00; Stop 12/23/16 at 12:04; Status DC Propofol (Diprivan 200 Mg/20 ml Inj) 200 mg STK-MED ONCE IV ; Start 11/13/16 at 12:00; Stop 12/23/16 at 12:38; Status DC Ephedrine Sulfate (ePHEDrine/NS 25 MG/5 ML SYR) 25 mg STK-MED ONCE IV ; Start at 12:00; Stop 12/23/16 at 12:38; Status DC Phenylephrine HCl (Neosynephrine/ NS 1000 Mcg/10ml Syr) 1,000 mcg STK-MED ONCE IV ; Start 11/13/16 at 12:00; Stop 12/23/16 at 12:38; Status DC Ondansetron HCl (Zofran Inj) 4 mg STK-MED ONCE IV PUSH ; Start 11/13/16 at 12:00 ; Stop 12/23/16 at 12:38; Status DC Lactated Ringer's 1,000 ml @ As Directed STK-MED ONCE IV ; Start 11/13/16 at 12 :00; Stop 12/23/16 at 12:38; Status DC Neostigmine Methylsulfate (Prostigmin Inj) 3 mg STK-MED ONCE IV ; Start at 12:00; Stop 12/23/16 at 12:38; Status DC Propofol (Diprivan 200 Mg/20 ml Inj) 200 mg STK-MED ONCE IV ; Start 11/28/16 at 12:00; Stop 12/23/16 at 12:50; Status DC Ephedrine Sulfate (ePHEDrine/NS 25 MG/5 ML SYR) 25 mg STK-MED ONCE IV ; Start at 12:00; Stop 12/23/16 at 12:50; Status DC Ondansetron HCl (Zofran Inj) 4 mg STK-MED ONCE IV PUSH ; Start 11/28/16 at 12:00 ; Stop 12/23/16 at 12:50; Status DC Propofol (Diprivan 200 Mg/20 ml Inj) 200 mg STK-MED ONCE IV ; Start 12/09/16 at 12:00; Stop 12/23/16 at 14:38; Status DC Ephedrine Sulfate (ePHEDrine/NS 25 MG/5 ML SYR) 50 mg STK-MED ONCE IV ; Start at 12:00; Stop 12/23/16 at 14:38; Status DC Ondansetron HCl (Zofran Inj) 4 mg STK-MED ONCE IV PUSH ; Start 12/09/16 at 12:00 ; Stop 12/23/16 at 14:38; Status DC Acetaminophen/ Hydrocodone Bitart ([place] 10-325 Mg) 2 tab Q4H PRN PO pain 6-10 Last administered on 01/10/17 09:07; Start 12/23/16 at 18:45 Vancomycin HCl 5000 mg/Sodium Chloride 3,000 ml @ 10 mls/hr Q24H PRN IRRIGATION DRESSING CHANGE Last administered on 01/08/17 01:36; Start 12/25/16 at 08:00 Diphenhydramine HCl (Benadryl) 12.5 mg Q4H PRN PO itching Last administered on 12/28/16 07:54; Start 12/25/16 at 16:45; Stop 12/28/16 at 13:48; Status DC Ferrous Sulfate (Ferrous Sulfate) 325 mg BID@12,17 PO Last administered on 01/09 17:47; Start 12/26/16 at 12:00 Ascorbic Acid (Vitamin C) 500 mg BID PO Last administered on 01/10/17 09:05; Start 12/26/16 at 09:00 Pharmacy Profile Note 0 ml @ 0 mls/hr UNSCH OTHER ; Start 12/26/16 at 14:45 Vancomycin HCl 1500 mg/Sodium Chloride 515 ml @ 257.5 mls/ hr Q12H IV Last administered on 12/26/16 20:17; Start 12/26/16 at 17:00; Stop 12/27/16 at 04:54; Status DC Miscellaneous Information SPECIFIC LAB TO BE LEANNA... ONCE ONCE .XX ; Start 12/28 at 04:45; Stop 12/28/16 at 04:46; Status Cancel Vancomycin HCl 1500 mg/Sodium Chloride 515 ml @ 257.5 mls/ hr Q12H IV Last administered on 12/29/16 20:50; Start 12/27/16 at 08:00; Stop 12/29/16 at 20:35 ; Status DC Miscellaneous Information SPECIFIC LAB TO BE LEANNA... ONCE ONCE .XX ; Start 12/28 at 07:45; Stop 12/28/16 at 07:46; Status DC Miscellaneous Information SPECIFIC LAB TO BE LEANNA... ONCE ONCE .XX Last administered on 12/29/16 20:45; Start 12/29/16 at 20:45; Stop 12/29/16 at 20:46 ; Status DC Diphenhydramine HCl (Benadryl) 50 mg Q4H PRN PO itching Last administered on 22:20; Start 12/28/16 at 16:45 Vancomycin HCl 1500 mg/Sodium Chloride 515 ml @ 257.5 mls/ hr Q12H IV Last administered on 01/03/17 08:51; Start 12/29/16 at 21:00; Stop 01/03/17 at 22:00 ; Status DC Miscellaneous Information SPECIFIC LAB TO BE DRAWN:VANCO TROUGH DATE TO BE DR... ONCE ONCE .XX Last administered on 12/31/16 08:45; Start 12/31/16 at 08 :45; Stop 12/31/16 at 08:46; Status DC Miscellaneous Information SPECIFIC LAB TO BE LEANNA... ONCE ONCE .XX ; Start 01/03 at 08:45; Stop 01/03/17 at 08:46; Status DC Fluticasone Propionate (Flonase Jerzy Spr) 1 spray BID NASAL Last administered on 01/09/17 22:22; Start 01/02/17 at 21:00 Miscellaneous Information SPECIFIC LAB TO BE DRAWN:VANCOMY... ONCE ONCE .XX Last administered on 01/03/17 20:45; Start 01/03/17 at 20:45; Stop 01/03/17 at 20:46; Status DC Vancomycin HCl 1500 mg/Sodium Chloride 515 ml @ 257.5 mls/ hr Q12H IV Last administered on 01/10/17 09:16; Start 01/03/17 at 22:00 Miscellaneous Information SPECIFIC LAB TO BE LEANNA... ONCE ONCE .XX ; Start 01/04 at 21:45; Stop 01/04/17 at 21:46; Status DC Miscellaneous Information SPECIFIC LAB TO BE LEANNA... ONCE ONCE .XX ; Start 01/05 at 21:45; Stop 01/05/17 at 21:46; Status DC Calcium Carbonate (Tums Chew) 500 mg Q12HR CHEW Last administered on 01/10/17 09:05; Start 01/05/17 at 11:30 Cefazolin Sodium/ Dextrose 50 ml @ As Directed STK-MED ONCE .ROUTE Last administered on 01/09/17 13:01; Start 01/09/17 at 11:31; Stop 01/09/17 at 11:32 ; Status DC Lidocaine HCl (Xylocaine 2% Jelly) 30 applic STK-MED ONCE .ROUTE Last administered on 01/09/17 13:08; Start 01/09/17 at 11:31; Stop 01/09/17 at 11:32 ; Status DC Mineral Oil (Muri-Lube Oil) 10 ml STK-MED ONCE .ROUTE Last administered on 01/09 13:08; Start 01/09/17 at 11:31; Stop 01/09/17 at 11:32; Status DC Gentamicin Sulfate (Gentamicin Inj) 240 mg STK-MED ONCE .ROUTE Last administered on 01/09/17 13:08; Start 01/09/17 at 11:31; Stop 01/09/17 at 11:32 ; Status DC Lactated Ringer's 1,000 ml @ 100 mls/hr Q10H IV Last administered on 14:15; Start 01/09/17 at 13:34 Morphine Sulfate (*morphine INJ PERIprocedure ONLY) 8 mg STK-MED ONCE .ROUTE Last administered on 01/09/17 14:10; Start 01/09/17 at 14:10; Stop 01/09/17 at 14:11; Status DC Miscellaneous Information ALL NURSING DEPARTME... UNSCH PRN .XX SEE LABEL COMMENTS; Start 01/09/17 at 13:52; Stop 01/10/17 at 13:51 A/P Assessment and Plan A/P Bilateral open tibia-fibula fractures Left tibial plateau fracture - Open fractures have been surgically repaired, right side has external fixation - s/p Removal of external fixation right lower extremity, irrigation debridement of left leg, split-thickness skin graft left leg, application wound VAC dressing on 01/09 - left tibial plateau fracture treated nonoperatively - Lortab dose when necessary, Oramorph 30mg every 8 hours. -Most likely patient will need 2-3 weeks more hospitalization for irrigation with vancomycin. -management per ortho MRSA - wound culture 12/23 positive for MRSA -on Vanco- evaluated by ID Acute blood loss anemia JAMAR - Related to trauma vs post op blood loss - Status post transfusion of 2 units of packed red blood cells in 11/12/16. - on iron supplementation daily. - hemoglobin stable - monitor CBC as indicated Coronary artery disease with h/o previous CABG - Appears stable. Patient is asymptomatic. - Continue propranolol and statin - ASA 81mg daily - Clonidine PRN Hypertension - controlled - MARGIE inhibitor held due to hypotension. Diabetes mellitus type 2 - blood sugars well controlled - accu checks discontinued Alcohol abuse Transaminitis, resolved - AST and ALT now within normal range. - Continue with daily thiamine and folic acid - Alcohol cessation recommended Tobacco abuse - Cessation recommended. Chronic essential tremor - Continue Propranolol Allergic rhinitis - Flonase Indigestion -Patient on Protonix and Maalox. DVT prophylaxis with Lovenox Blaine Corrales MD Jan 10, 2017 10:31
[2017-01-10] MEDS: SODIUM CHLORIDE 0.9% FLUSH 10 ML FLUSH IV FLUSH SCH ×2 (11:11→19:55)
[2017-01-10 12:00] VITALS: BP_SYST 122; BP_SYST 129; BP_DIAS 67; BP_DIAS 81; PULSE 100; PULSE 64; RESP 18; RESP 21; TEMP 95.7; TEMP 97; O2SAT 95; O2SAT 97
[2017-01-10] MEDS: FERROUS SULFATE 325 MG (65 MG ELEMENTAL IRON) TAB PO SCH ×2 (12:00→17:26)
[2017-01-10 16:00] VITALS: BP 125/75; PULSE 68; RESP 19; TEMP 96.9; O2SAT 96
[2017-01-10] MEDS: PRAVASTATIN SOD 80 MG TAB PO SCH (19:55)
[2017-01-10] MEDS: traZODone HCL 100 MG TAB PO SCH (19:55)
[2017-01-10] MEDS: diphenhydrAMINE HCL 50 MG CAP PO PRN (19:55)
[2017-01-10] MEDS: MAGNESIUM HYDROXIDE SUSP 30 ML CUP PO SCH (19:56)
[2017-01-10] MEDS: LIDOCAINE HCL 5% PATCH T-DERMAL SCH (19:56)
[2017-01-10 20:30] VITALS: BP 111/68; PULSE 68; RESP 18; TEMP 96.3; O2SAT 97
[2017-01-11] MEDS: LACTATED RINGER'S 1000 ML INJ 1,000 ML IV SCH ×3 (01:41→21:41)
[2017-01-11] MEDS: ACETAMINOPHEN/HYDROcodone 325 MG/10 MG TAB PO PRN ×4 (05:28→20:06)
[2017-01-11] MEDS: MORPHINE SULFATE 30 MG CONTROLLED RELEASE TAB PO SCH ×3 (05:28→21:37)
[2017-01-11] MEDS: ENOXAPARIN SODIUM 40 MG/0.4 ML SYRINGE SQ SCH (07:54)
[2017-01-11] MEDS: CALCIUM/VITAMIN D 250 MG/125 U TAB PO SCH ×3 (07:55→17:33)
[2017-01-11] MEDS: ASPIRIN 81 MG CHEW TAB CHEW SCH (07:55)
[2017-01-11] MEDS: FOLIC ACID 1 MG TAB PO SCH (07:55)
[2017-01-11] MEDS: PANTOPRAZOLE SOD 40 MG DELAYED RELEASE TAB PO SCH (07:55)
[2017-01-11] MEDS: THIAMINE HCL 100 MG TAB PO SCH (07:55)
[2017-01-11] MEDS: GABAPENTIN 300 MG CAP PO SCH ×3 (07:55→17:33)
[2017-01-11] MEDS: LACTOBACILLUS ACIDOPHILUS TAB PO SCH ×3 (07:55→17:33)
[2017-01-11] MEDS: CALCIUM CARBONATE 500 MG CHEWABLE TAB CHEW SCH ×2 (07:55→20:06)
[2017-01-11] MEDS: DOCUSATE SODIUM 50 MG/SENNA 8.6 MG TAB PO SCH ×2 (07:55→20:05)
[2017-01-11] MEDS: PROPRANOLOL HCL 10 MG TAB PO SCH ×2 (07:55→20:05)
[2017-01-11] MEDS: ASCORBIC ACID 500 MG TAB PO SCH ×2 (07:56→20:05)
[2017-01-11] MEDS: FLUTICASONE PROPIONATE 50 MCG/ACT 16 GM NASAL SPRAY NASAL SCH ×2 (07:57→20:07)
[2017-01-11] MEDS: SODIUM CHLORIDE 0.9% FLUSH 10 ML FLUSH IV FLUSH SCH ×2 (07:57→20:06)
[2017-01-11] MEDS: REMOVE OLD LIDOCAINE PATCH T-DERMAL SCH (07:57)
[2017-01-11] MEDS: NEOMYCIN/POLYMYXIN/BACITRACIN OINT 15 GM TUBE TOPICAL SCH (07:58)
[2017-01-11 08:00] VITALS: BP 136/88; PULSE 80; RESP 17; TEMP 99.5; O2SAT 96
[2017-01-11 08:52] VITALS: O2SAT 96
--- NOTE | 2017-01-11 09:27 | HHI.PR ---
Subjective Remarks in no acute distress. no new complaints. pain seems to be controlled. no fever. Objective Vitals Vital Signs Date Time Temp Pulse Resp B/P (MAP) Pulse Ox O2 Delivery O2 Flow Rate FiO2 01/11/17 08:00 99.5 80 17 136/88 (104) 96 01/10/17 20:30 96.3 68 18 111/68 (82) 97 01/10/17 16:00 96.9 68 19 125/75 (92) 96 01/10/17 12:00 97.0 64 18 122/67 (85) 97 01/10/17 12:00 95.7 100 21 129/81 (97) 95 I/O 01/10/17 01/10/17 01/10/17 01/11/17 01/11/17 01/11/17 07:00 15:00 23:00 07:00 15:00 23:00 Intake Total 995 ml 360 ml 560 ml Output Total 1300 ml 400 ml 1500 ml Balance -305 ml -40 ml -940 ml Intake Oral 480 ml 360 ml 560 ml IV Total 515 ml Output Urine Total 1300 ml 400 ml 1500 ml Drainage Total 0 ml 0 ml # Voids 2 # Bowel Movements 1 6 0 0 Result Diagram: 01/10/17 0417 01/11/17 0611 Imaging Last Impressions Ankle X-Ray 01/09/17 0000 Signed Impressions: Service Date/Time: Monday, January 09, 2017 12:59 - CONCLUSION: Fluoroscopic images during placement of screws along the distal tibia and single long screw along the distal fibula. Fractures are again seen.. Jac Gonzales MD Tibia/Fibula X-Ray 01/01/17 0000 Signed Impressions: Service Date/Time: December 09:33 - CONCLUSION: There are no complications. Paul Fuentes MD Knee X-Ray 01/01/17 0000 Signed Impressions: Service Date/Time: December 09:37 - CONCLUSION: Lateral tibial plateau fracture without involvement of the articulating surface. Paul Fuentes MD Foot X-Ray 12/27/16 0000 Signed Impressions: Service Date/Time: Tuesday, December 27, 2016 16:50 - CONCLUSION: Distal tibia and fibula fractures with internal fixation hardware. Samir Massey MD Gall Bladder Ultrasound 12/05/16 0000 Signed Impressions: Service Date/Time: Monday, December 05, 2016 08:38 - CONCLUSION: Unremarkable exam. Gallbladder is within normal limits with no evidence of cholelithiasis. Ronald Rao MD Abdomen X-Ray 12/04/16 0000 Signed Impressions: Service Date/Time: , December 04, 2016 10:42 - CONCLUSION: Unremarkable bowel gas pattern. Ronald Rao MD Chest X-Ray 11/20/16 0000 Signed Impressions: Service Date/Time: November 17:08 - CONCLUSION: 1. No acute abnormality or significant interval change. Sukhi Stevens MD Pelvis X-Ray 11/07/16 1355 Signed Impressions: Service Date/Time: Monday, November 07, 2016 13:34 - CONCLUSION: No acute disease. Behzad Finch Jr., MD Objective Remarks GENERAL: This is a well-nourished, well-developed patient, in no apparent distress. CARDIOVASCULAR: Regular rate and regular rhythm without murmurs, gallops, or rubs. RESPIRATORY: Clear to auscultation. Breath sounds equal bilaterally. No wheezes , rales, or rhonchi. GASTROINTESTINAL: Abdomen soft, non-tender, nondistended. Normal, active bowel sounds MUSCULOSKELETAL: both legs covered with clean dressing. NEURO: Alert & Oriented x4 to person, place, time, situation. Moves all ext x4 Procedures 1.s/p I&D with ex fix application bilateral tibias s/p wound vac application left tibia 2.With the assistance of RN, under sterile technique the avulsed skin of the right middle finger was clipped. No bleeding noted. Patient gave consent 3.Open reduction internal fixation of right distal tibia and fibula fractures Nonoperative treatment left tibial plateau fracture Irrigation and debridement of left tibia shaft fracture, removal external fixation, soleus muscle rotational flap, intramedullary nail fixation left tibia , application of wound VAC dressing 4.7 Irrigation and debridement of left tibia, application wound VAC dressing 5. 8 Irrigation and debridement of left open tibia fracture with application of wound VAC dressing 6. 8 wound vac change at the bedside 7. 8 wound vac change at the bedside 8. 8 wound vac change at the bedside 9. 8 I&D left tibia, application of wound VAC dressing and application of AlloMax allograft dermal matrix 10. 01/09 Removal of external fixation right lower extremity, irrigation debridement of left leg, split-thickness skin graft left leg, application wound VAC dressing Medications and IVs Current Medications Cefazolin Sodium/ Dextrose 50 ml @ As Directed STK-MED ONCE .ROUTE Last administered on 11/13/16 08:09; Start 11/07/16 at 13:58; Stop 11/07/16 at 13:59 ; Status DC Diphtheria/ Tetanus/Acell Pertussis (Boostrix Inj) 0.5 ml STK-MED ONCE IM ; Start 11/07/16 at 13:58; Stop 11/07/16 at 13:59; Status DC Morphine Sulfate (Morphine Inj) 8 mg STK-MED ONCE .ROUTE ; Start 11/07/16 at 14: 01; Stop 11/07/16 at 14:02; Status DC Hydromorphone HCl (Dilaudid Pf Inj) 1 mg STK-MED ONCE .ROUTE Last administered on 11/07/16 19:15; Start 11/07/16 at 14:05; Stop 11/07/16 at 14:06; Status DC Lactated Ringer's 1,000 ml @ 100 mls/hr Q10H IV ; Start 11/07/16 at 14:22; Stop 11/07/16 at 19:02; Status DC Sodium Chloride (NS Flush) 2 ml UNSCH PRN IV FLUSH FLUSH AFTER USING IV ACCESS Last administered on 12/11/16 11:31; Start 11/07/16 at 14:30 Sodium Chloride (NS Flush) 2 ml BID IV FLUSH Last administered on 01/10/17 11: 11; Start 11/07/16 at 21:00 Ondansetron HCl (Zofran Inj) 4 mg Q6H PRN IV NAUSEA OR VOMITING Last administered on 12/04/16 06:13; Start 11/07/16 at 14:30 Pantoprazole Sodium (Protonix Inj) 40 mg Q24H IV Last administered on 20:00; Start 11/07/16 at 17:00; Stop 11/08/16 at 08:09; Status DC Docusate Sodium (Colace) 100 mg BID PO ; Start 11/07/16 at 21:00; Stop 11/08/16 at 13:04; Status DC Cefazolin Sodium 1000 mg/Sodium Chloride 100 ml @ 200 mls/hr Q8H IV ; Start at 22:00; Stop 11/07/16 at 22:00; Status DC Miscellaneous Information (Post-op Orders (for Pharmacy)) STAT ONCE XX ; Start 11/07/16 at 14:30; Stop 11/07/16 at 15:39; Status DC Oxycodone/ Acetaminophen (Percocet 10-325 Mg) 1 tab Q4H PRN PO 3-5; Start 11/07 at 14:30; Stop 11/07/16 at 19:03; Status DC Hydromorphone HCl (Dilaudid Pf Inj) 1 mg Q2H PRN IV Pain 6-10; Start 11/07/16 at 14:30; Stop 11/07/16 at 19:11; Status DC Naloxone HCl (Narcan Inj) 0.4 mg UNSCH PRN IV SEE LABEL COMMENTS; Start at 14:30 Gentamicin Sulfate (Gentamicin Inj) 80 mg Q8H IM ; Start 11/07/16 at 14:30; Stop 11/07/16 at 15:37; Status DC Hydromorphone HCl (Dilaudid Pf Inj) 0.5 mg THERMOSTATIC CONTROLS SUPERVISOR DOSING PRN IV PUSH pain; Start 11/07/16 at 14:45; Stop 11/07/16 at 19:11; Status DC Gentamicin Sulfate/Sodium Chloride 100 ml @ 200 mls/hr Q8H IV ; Start 11/07/16 at 17:00; Status Cancel Miscellaneous Information (Post-op Orders (for Pharmacy)) UNSCH X1 XX ; Start 11/07/16 at 15:45; Stop 11/08/16 at 06:00; Status DC Cefazolin Sodium (Ancef Inj) 1,000 mg STK-MED ONCE .ROUTE Last administered on 11/07/16 16:26; Start 11/07/16 at 15:48; Stop 11/07/16 at 15:49; Status DC Gentamicin Sulfate (Gentamicin Inj) 80 mg STK-MED ONCE .ROUTE Last administered on 11/07/16 16:26; Start 11/07/16 at 15:49; Stop 11/07/16 at 15:50 ; Status DC Acetaminophen (Ofirmev Inj) 1,000 mg STK-MED ONCE IV ; Start 11/07/16 at 15:56; Stop 11/07/16 at 15:57; Status DC Midazolam HCl (Versed Inj) 2 mg STK-MED ONCE .ROUTE ; Start 11/07/16 at 15:56; Stop 11/07/16 at 15:57; Status DC Famotidine (Pepcid Inj) 20 mg STK-MED ONCE .ROUTE ; Start 11/07/16 at 15:56; Stop 11/07/16 at 15:57; Status DC Gentamicin Sulfate (Gentamicin Inj) 240 mg STK-MED ONCE IRRIGATION Last administered on 11/07/16 16:26; Start 11/07/16 at 16:26; Stop 11/07/16 at 16:42 ; Status DC Fentanyl Citrate (fentaNYL INJ) 250 mcg STK-MED ONCE .ROUTE ; Start 11/07/16 at 17:03; Stop 11/07/16 at 17:04; Status DC Gentamicin Sulfate (Gentamicin Inj) 240 mg STK-MED ONCE .ROUTE Last administered on 11/07/16 16:26; Start 11/07/16 at 17:10; Stop 11/07/16 at 17:11 ; Status DC Lactated Ringer's 1,000 ml @ 100 mls/hr Q10H IV Last administered on 07:51; Start 11/07/16 at 18:00; Stop 11/08/16 at 12:46; Status DC Enoxaparin Sodium (Lovenox Inj) 30 mg Q12H SQ ; Start 11/08/16 at 17:00; Stop at 11:48; Status DC Cefazolin Sodium/ Dextrose 50 ml @ 100 mls/hr Q8H IV Last administered on 11/10 08:16; Start 11/08/16 at 00:00; Stop 11/10/16 at 12:47; Status DC Gentamicin Sulfate/Sodium Chloride 100 ml @ 200 mls/hr Q8H IV Last administered on 11/10/16 16:30; Start 11/08/16 at 00:00; Stop 11/10/16 at 16:29 ; Status DC Acetaminophen/ Hydrocodone Bitart ([place] 10-325 Mg) 1 tab Q3H PRN PO PAIN 3<10 Last administered on 11/08/16 10:36; Start 11/07/16 at 18:00; Stop 11/08/16 at 13:04; Status DC Morphine Sulfate (Morphine Inj) 4 mg Q3H PRN IV PUSH Break thru Pain Last administered on 11/08/16 07:50; Start 11/07/16 at 18:00; Stop 11/08/16 at 12:21 ; Status DC Ketorolac Tromethamine (Toradol Inj) 30 mg Q12H IVP Last administered on 05:32; Start 11/07/16 at 18:00; Stop 11/10/16 at 06:01; Status DC Bacitracin (Baciguent Oint) 15 applic STK-MED ONCE .ROUTE Last administered on 11/07/16 18:09; Start 11/07/16 at 18:09; Stop 11/07/16 at 18:10; Status DC Miscellaneous Information ALL NURSING DEPARTME... UNSCH PRN .XX SEE LABEL COMMENTS; Start 11/07/16 at 18:33; Stop 11/08/16 at 18:32; Status DC Acetaminophen (Tylenol) 650 mg Q4H PRN PO Temp > 100.4, pain 1-2; Start at 08:15 Magnesium Hydroxide (Milk Of Magnesia Liq) 30 ml DAILY PRN PO for Severe Constipation Last administered on 11/09/16 20:15; Start 11/08/16 at 08:15; Stop 11/10/16 at 09:00; Status DC Calcium Carbonate (Tums Chew) 1,000 mg TID PRN CHEW DYSPEPSIA Last administered on 01/09/17 22:36; Start 11/08/16 at 08:15 Dextrose (D50w (Vial) Inj) 50 ml UNSCH PRN IV HYPOGLYCEMIA-SEE COMMENTS; Start 11/08/16 at 08:15; Stop 12/03/16 at 09:16; Status DC Glucagon (Glucagon Inj) 1 mg UNSCH PRN OTHER HYPOGLYCEMIA-SEE COMMENTS; Start 11/08/16 at 08:15; Stop 12/03/16 at 09:16; Status DC Insulin Aspart (NovoLOG SUPPLEMENTAL SCALE) 1 ACHS SLIDING SCALE SQ Last administered on 8/14/17at 13:21; Start 11/08/16 at 11:00; Stop 12/03/16 at 09:16 ; Status DC Enalaprilat (Vasotec Inj) 1.25 mg Q6H PRN IV SBP> OR = 180, DBP> OR = 100; Start 11/08/16 at 08:15 Clonidine (Catapres) 0.1 mg Q6H PRN PO SBP> OR = 180, DBP> OR = 100; Start at 08:15 Gabapentin (Neurontin) 400 mg TID PO Last administered on 11/16/16 09:10; Start 11/08/16 at 13:00; Stop 11/16/16 at 11:46; Status DC Morphine Sulfate (Morphine Inj) 6 mg Q3H PRN IV PUSH PAIN 6-10 Last administered on 11/17/16 15:09; Start 11/08/16 at 15:00; Stop 11/18/16 at 16:37 ; Status DC Aspirin (Aspirin Chew) 81 mg DAILY CHEW Last administered on 01/11/17 07:55; Start 11/08/16 at 12:45 Ferrous Sulfate (Ferrous Sulfate) 325 mg DAILY PO Last administered on 08:11; Start 11/08/16 at 12:45; Stop 12/05/16 at 09:25; Status DC Lisinopril (Prinivil) 25 mg DAILY PO Last administered on 11/18/16 09:59; Start 11/08/16 at 12:45; Status Future Hold Nitroglycerin (Nitrostat Sl) 0.4 mg Q6HR PRN SL CHEST PAIN; Start 11/08/16 at 12:45 Pantoprazole Sodium (Protonix) 40 mg DAILY PO Last administered on 01/11/17 07 :55; Start 11/08/16 at 12:45 Pravastatin Sodium (Pravachol) 80 mg HS PO Last administered on 01/10/17 19:55 ; Start 11/08/16 at 21:00 Propranolol HCl (Inderal) 80 mg Q12HR PO Last administered on 11/18/16 10:01; Start 11/08/16 at 21:00; Stop 11/22/16 at 12:49; Status DC Miscellaneous (Pill Splitter) 1 ea UNSCH PRN OTHER SEE LABEL COMMENTS; Start at 12:45 Senna/Docusate Sodium ([place]ke-Colace) 1 tab BID PO Last administered on 07:55; Start 11/08/16 at 12:45; Status Future hold Lactulose (Lactulose Liq) 30 ml DAILY PRN PO No BM in 2 days; Start 11/08/16 at 12:45; Stop 11/10/16 at 07:47; Status DC Acetaminophen/ Hydrocodone Bitart ([place] 10-325 Mg) 1.5 tab Q3H PRN PO PAIN 3- 10 Last administered on 11/09/16 23:46; Start 11/08/16 at 15:00; Stop 11/10/16 at 12:45; Status DC Folic Acid (Folate) 1 mg DAILY PO Last administered on 11/12/16 09:14; Start 11/09/16 at 09:00; Stop 11/14/16 at 08:59; Status DC Thiamine HCl (Vitamin B1) 100 mg DAILY PO Last administered on 01/11/17 07:55 ; Start 11/09/16 at 09:00 Multivitamins/ Minerals Therapeutic (Theragran M Tab) 1 tab DAILY PO Last administered on 11/12/16 09:13; Start 11/09/16 at 09:00; Stop 11/14/16 at 08:59 ; Status DC Flumazenil (Romazicon Inj) 0.2 mg Q1M PRN IV PUSH SEE LABEL COMMENTS; Start at 13:00 Lorazepam (Ativan) 1 mg Q4H PRN PO CIWA 8 - 10; Start 11/08/16 at 13:00; Stop 11/26/16 at 16:05; Status DC Lorazepam (Ativan Inj) 1 mg Q4H PRN IV PUSH CIWA 8 - 10; Start 11/08/16 at 13: 00; Stop 11/26/16 at 16:05; Status DC Lorazepam (Ativan) 2 mg Q2H PRN PO CIWA 11-14; Start 11/08/16 at 13:00; Stop at 16:05; Status DC Lorazepam (Ativan Inj) 2 mg Q2H PRN IV PUSH CIWA 11-14; Start 11/08/16 at 13:00 ; Stop 11/26/16 at 16:05; Status DC Lorazepam (Ativan Inj) 2 mg Q1H PRN IV PUSH CIWA 15-20; Start 11/08/16 at 13:00 ; Stop 11/26/16 at 16:05; Status DC Lorazepam (Ativan Inj) 2 mg Q15M PRN IV PUSH CIWA > 20; Start 11/08/16 at 13:00 ; Stop 11/26/16 at 16:05; Status DC Haloperidol Lactate (Haldol Inj) 2 mg Q15M PRN IM SEE LABEL COMMENTS; Start at 13:00 Lactated Ringer's 1,000 ml @ 30 mls/hr Q24H PRN IV SEE LABEL COMMENTS; Start at 00:45; Stop 11/09/16 at 12:05; Status DC Sodium Chloride 500 ml @ 30 mls/hr [id number] PRN IV SEE LABEL COMMENTS; Start at 00:45; Stop 11/09/16 at 12:05; Status DC Metoprolol Tartrate (Lopressor) 25 mg TECHNICAL SUPPORT AGENT PRN PO SEE LABEL COMMENTS; Start 11/09/16 at 00:45; Stop 11/12/16 at 00:44; Status DC Povidone Iodine (Betadine 5% Antisepsis Kit) 1 applic TECHNICAL SUPPORT AGENT PRN EACH NARE SEE LABEL COMMENTS; Start 11/09/16 at 00:45; Stop 11/12/16 at 00:44; Status DC Chlorhexidine Gluconate (Chlorhexidine 2% Cloth) 3 pack TECHNICAL SUPPORT AGENT PRN TOPICAL SEE LABEL COMMENTS; Start 11/09/16 at 00:45; Stop 11/09/16 at 12:05; Status DC Insulin Human Regular (NovoLIN R INJ) See Protocol Table ... TECHNICAL SUPPORT AGENT PRN SQ SEE PROTOCOL TABLE; Start 11/09/16 at 00:45; Stop 11/12/16 at 00:44; Status DC Potassium Chloride (KCl) 20 meq ONCE ONCE PO Last administered on 11/09/16 11 :40; Start 11/09/16 at 11:00; Stop 11/09/16 at 11:01; Status DC Neomycin/ Polymyxin/ Bacitracin (Neosporin Oint) 1 applic DAILY TOPICAL Last administered on 01/10/17 09:00; Start 11/10/16 at 09:00 Lactulose (Lactulose Liq) 30 ml DAILY PO Last administered on 12/02/16 09:18; Start 11/10/16 at 09:00; Stop 12/08/16 at 09:52; Status DC Magnesium Hydroxide (Milk Of Magnesia Liq) 30 ml HS PO Last administered on 22:21; Start 11/10/16 at 21:00; Status Future hold Famotidine (Pepcid Inj) 20 mg STK-MED ONCE .ROUTE Last administered on 08:51; Start 11/10/16 at 08:51; Stop 11/10/16 at 08:52; Status DC Albuterol Sulfate (Albuterol Neb) 2.5 mg STK-MED ONCE .ROUTE Last administered on 11/10/16 08:55; Start 11/10/16 at 08:53; Stop 11/10/16 at 08:54; Status DC Gentamicin Sulfate (Gentamicin Inj) 240 mg STK-MED ONCE .ROUTE Last administered on 11/10/16 09:48; Start 11/10/16 at 09:02; Stop 11/10/16 at 09:03 ; Status DC Acetaminophen (Ofirmev Inj) 1,000 mg STK-MED ONCE IV ; Start 11/10/16 at 09:13; Stop 11/10/16 at 09:14; Status DC Lactated Ringer's 1,000 ml @ 100 mls/hr Q10H IV Last administered on 00:53; Start 11/10/16 at 13:00; Stop 11/11/16 at 11:56; Status DC Enoxaparin Sodium (Lovenox Inj) 30 mg Q12H SQ Last administered on 12/04/16 00 :03; Start 11/11/16 at 00:00; Stop 12/04/16 at 09:43; Status DC Cefazolin Sodium/ Dextrose 50 ml @ 100 mls/hr Q8H IV Last administered on 11/13 00:05; Start 11/10/16 at 16:00; Stop 11/13/16 at 08:29; Status DC Gentamicin Sulfate/Sodium Chloride 100 ml @ 200 mls/hr Q8H IV Last administered on 11/13/16 10:00; Start 11/10/16 at 18:00; Stop 11/13/16 at 10:29 ; Status DC Acetaminophen/ Hydrocodone Bitart ([place] 10-325 Mg) 1 tab Q3H PRN PO PAIN 3<10 Last administered on 11/18/16 04:34; Start 11/10/16 at 11:45; Stop 11/18/16 at 16 :37; Status DC Calcium/Vitamin D (Oscal-D 250-125) 250 mg TID PO Last administered on 07:55; Start 11/10/16 at 13:00 Meperidine HCl (*DEMEROL INJ PERIprocedural ONLY) 25 mg STK-MED ONCE .ROUTE Last administered on 11/10/16 12:36; Start 11/10/16 at 12:36; Stop 11/10/16 at 12:37; Status DC Miscellaneous Information ALL NURSING DEPARTME... UNSCH PRN .XX SEE LABEL COMMENTS; Start 11/10/16 at 12:29; Stop 11/11/16 at 12:28; Status DC Midazolam HCl (Versed Inj) 2 mg STK-MED ONCE .ROUTE ; Start 11/10/16 at 12:48; Stop 11/10/16 at 12:49; Status DC Fentanyl Citrate (fentaNYL INJ) 250 mcg STK-MED ONCE .ROUTE ; Start 11/10/16 at 12:48; Stop 11/10/16 at 12:49; Status DC Morphine Sulfate (*morphine INJ PERIprocedure ONLY) 8 mg STK-MED ONCE .ROUTE Last administered on 11/10/16 14:36; Start 11/10/16 at 14:36; Stop 11/10/16 at 14:37; Status DC Bisacodyl (Dulcolax Ec) 10 mg ONCE ONCE PO Last administered on 11/11/16 10: 17; Start 11/11/16 at 07:00; Stop 11/11/16 at 07:04; Status DC Bisacodyl (Dulcolax Supp) 10 mg ONCE ONCE RECTAL Last administered on 10:17; Start 11/11/16 at 07:00; Stop 11/11/16 at 07:04; Status DC Sodium Chloride 250 ml @ 15 mls/hr ONCE ONCE IV Last administered on 11:19; Start 11/11/16 at 11:15; Stop 11/12/16 at 03:54; Status DC Furosemide (Lasix Inj) 20 mg ONCE ONCE IV ; Start 11/11/16 at 11:15; Stop 11/11 at 11:16; Status Cancel Furosemide (Lasix Inj) 20 mg ONCE ONCE IV Last administered on 11/12/16t 11:18 ; Start 11/12/16 at 11:00; Stop 11/12/16 at 11:01; Status DC Albuterol/ Ipratropium (Duoneb Neb) 1 ampule Q4HR NEB PRN NEB wheezing; Start 11/12/16 at 13:15 Lactated Ringer's 1,000 ml @ 30 mls/hr Q24H PRN IV SEE LABEL COMMENTS; Start at 05:00; Stop 11/16/16 at 04:59; Status Cancel Sodium Chloride 500 ml @ 30 mls/hr [id number] PRN IV SEE LABEL COMMENTS; Start at 05:00; Stop 11/16/16 at 04:59; Status DC Metoprolol Tartrate (Lopressor) 25 mg TECHNICAL SUPPORT AGENT PRN PO SEE LABEL COMMENTS; Start 11/13/16 at 05:00; Stop 11/16/16 at 04:59; Status DC Povidone Iodine (Betadine 5% Antisepsis Kit) 1 applic TECHNICAL SUPPORT AGENT PRN EACH NARE SEE LABEL COMMENTS; Start 11/13/16 at 05:00; Stop 11/16/16 at 04:59; Status DC Chlorhexidine Gluconate (Chlorhexidine 2% Cloth) 3 pack TECHNICAL SUPPORT AGENT PRN TOPICAL SEE LABEL COMMENTS; Start 11/13/16 at 05:00; Stop 11/16/16 at 04:59; Status DC Lidocaine HCl (Xylocaine 2% Jelly) 30 applic STK-MED ONCE .ROUTE ; Start at 07:15; Stop 11/13/16 at 07:16; Status DC Mineral Oil (Muri-Lube Oil) 10 ml STK-MED ONCE .ROUTE ; Start 11/13/16 at 07:15 ; Stop 11/13/16 at 07:16; Status DC Gentamicin Sulfate (Gentamicin Inj) 240 mg STK-MED ONCE .ROUTE Last administered on 11/13/16t 08:20; Start 11/13/16 at 07:15; Stop 11/13/16 at 07:16 ; Status DC Albuterol Sulfate (Albuterol Neb) 2.5 mg STK-MED ONCE .ROUTE ; Start 11/13/16 at 07:34; Stop 11/13/16 at 07:35; Status DC Dexamethasone Sodium Phosphate (Decadron Inj) 4 mg STK-MED ONCE .ROUTE ; Start 11/13/16 at 07:36; Stop 11/13/16 at 07:37; Status DC Famotidine (Pepcid Inj) 20 mg STK-MED ONCE .ROUTE ; Start 11/13/16 at 07:36; Stop 11/13/16 at 07:37; Status DC Albuterol/ Ipratropium (Duoneb Neb) 1 ampule STK-MED ONCE .ROUTE Last administered on 11/13/16 07:50; Start 11/13/16 at 07:47; Stop 11/13/16 at 07:48 ; Status DC Lactated Ringer's 1,000 ml @ 100 mls/hr Q10H IV Last administered on 12:14; Start 11/13/16 at 08:42; Stop 11/18/16 at 16:33; Status DC Cefazolin Sodium/ Dextrose 50 ml @ 100 mls/hr Q8H IV Last administered on 04:43; Start 11/13/16 at 12:00; Stop 11/20/16 at 11:59; Status DC Gentamicin Sulfate/Sodium Chloride 100 ml @ 200 mls/hr Q8H IV Last administered on 11/16/16 09:14; Start 11/13/16 at 18:00; Stop 11/16/16 at 17:59 ; Status DC Midazolam HCl (Versed Inj) 2 mg STK-MED ONCE .ROUTE ; Start 11/13/16 at 09:25; Stop 11/13/16 at 09:26; Status DC Fentanyl Citrate (fentaNYL INJ) 250 mcg STK-MED ONCE .ROUTE ; Start 11/13/16 at 09:25; Stop 11/13/16 at 09:26; Status DC Zolpidem Tartrate (Ambien) 5 mg HS PRN PO Insomnia Last administered on 22:24; Start 11/14/16 at 11:00 Trazodone HCl (Desyrel) 100 mg HS PO Last administered on 01/10/17 19:55; Start 11/14/16 at 21:00 Morphine Sulfate (Oramorph Sr) 15 mg Q12HR PO Last administered on 11/18/16 10: 00; Start 11/16/16 at 21:00; Stop 11/18/16 at 16:36; Status DC Morphine Sulfate (Oramorph Sr) 15 mg ONCE ONCE PO Last administered on 12:32; Start 11/16/16 at 10:15; Stop 11/16/16 at 10:24; Status DC Gabapentin (Neurontin) 600 mg TID PO Last administered on 01/11/17 07:55; Start 11/16/16 at 13:00 Sodium Chloride 1,000 ml @ 999 mls/hr BOLUS ONCE IV Last administered on 17:22; Start 11/18/16 at 16:45; Stop 11/18/16 at 17:45; Status DC Morphine Sulfate (Oramorph Sr) 30 mg Q12HR PO Last administered on 11/29/16 09 :24; Start 11/18/16 at 21:00; Stop 11/29/16 at 14:26; Status DC Morphine Sulfate (Morphine Inj) 6 mg Q4H PRN IV PUSH PAIN SCALE 5 TO 10 Last administered on 11/19/16 05:59; Start 11/18/16 at 16:45; Stop 11/20/16 at 00:46; Status DC Morphine Sulfate (Morphine Inj) 3 mg Q3H PRN IV PUSH PAIN SCALE 1 TO 4 Last administered on 11/19/16 16:36; Start 11/18/16 at 16:45; Stop 11/20/16 at 00:46; Status DC Sodium Chloride 1,000 ml @ 125 mls/hr Q8H IV Last administered on 11/19/16 16: 15; Start 11/19/16 at 00:15; Stop 11/19/16 at 19:21; Status DC Sodium Chloride 500 ml @ 500 mls/hr BOLUS ONCE IV Last administered on 00:15; Start 11/19/16 at 00:15; Stop 11/19/16 at 01:14; Status DC Nystatin (Mycostatin Powder) 1 applic Q12HR TOPICAL Last administered on 08:54; Start 11/19/16 at 21:00; Stop 11/28/16 at 13:46; Status DC Acetaminophen/ Hydrocodone Bitart ([place] 7.5-325 Mg) 1 tab Q4H PRN PO PAIN SCALE 1 TO 4; Start 11/20/16 at 00:45; Stop 11/28/16 at 13:46; Status DC Acetaminophen/ Hydrocodone Bitart ([place] 10-325 Mg) 1 tab Q4H PRN PO PAIN SCALE 3-5 Last administered on 12/23/16 08:58; Start 11/20/16 at 00:45 Hydromorphone HCl (Dilaudid Pf Inj) 1 mg Q4H PRN IV PUSH BREAKTHROUGH PAIN Last administered on 12/17/16 10:38; Start 11/20/16 at 00:45; Stop 12/18/16 at 10:47; Status DC Propranolol HCl (Inderal) 40 mg Q12HR PO Last administered on 12/08/16 08:01; Start 11/22/16 at 21:00; Stop 12/08/16 at 10:00; Status DC Lactated Ringer's 1,000 ml @ 30 mls/hr Q24H PRN IV SEE LABEL COMMENTS; Start at 02:45; Stop 11/27/16 at 02:44; Status DC Sodium Chloride 500 ml @ 30 mls/hr [id number] PRN IV SEE LABEL COMMENTS; Start 11/24/16 at 02:45; Stop 11/27/16 at 02:44; Status DC Povidone Iodine (Betadine 5% Antisepsis Kit) 1 applic TECHNICAL SUPPORT AGENT PRN EACH NARE SEE LABEL COMMENTS; Start 11/24/16 at 02:45; Stop 11/27/16 at 02:44; Status DC Chlorhexidine Gluconate (Chlorhexidine 2% Cloth) 3 pack TECHNICAL SUPPORT AGENT PRN TOPICAL SEE LABEL COMMENTS; Start 11/24/16 at 02:45; Stop 11/27/16 at 02:44; Status DC Insulin Human Regular (NovoLIN R INJ) See Protocol Table ... TECHNICAL SUPPORT AGENT PRN SQ SEE PROTOCOL TABLE; Start 11/24/16 at 02:45; Stop 11/27/16 at 02:44; Status DC Prochlorperazine Edisylate (Compazine Inj) 10 mg Q8H PRN IV PUSH NAUSEA/ VOMITING Last administered on 11/25/16 18:00; Start 11/25/16 at 16:15 Sodium Chloride 500 ml @ 500 mls/hr BOLUS ONCE IV Last administered on 18:06; Start 11/25/16 at 17:00; Stop 11/25/16 at 17:59; Status DC Gentamicin Sulfate (Gentamicin Inj) 240 mg STK-MED ONCE .ROUTE Last administered on 11/28/16 10:42; Start 11/28/16 at 07:18; Stop 11/28/16 at 07:19 ; Status DC Vancomycin HCl (Vancomycin Inj) 1,000 mg STK-MED ONCE .ROUTE Last administered on 12/09/16 15:25; Start 11/28/16 at 07:38; Stop 11/28/16 at 07:39; Status DC Cefazolin Sodium/ Dextrose 50 ml @ As Directed STK-MED ONCE .ROUTE Last administered on 12/09/16 15:20; Start 11/28/16 at 07:38; Stop 11/28/16 at 07:39 ; Status DC Sodium Chloride 250 ml @ As Directed STK-MED ONCE .ROUTE ; Start 11/28/16 at 07 :39; Stop 11/28/16 at 07:40; Status DC Fentanyl Citrate (fentaNYL INJ) 250 mcg STK-MED ONCE .ROUTE ; Start 11/28/16 at 10:15; Stop 11/28/16 at 10:16; Status DC Cefazolin Sodium (Ancef Inj) 1,000 mg STK-MED ONCE .ROUTE Last administered on 11/28/16 10:31; Start 11/28/16 at 10:23; Stop 11/28/16 at 10:24; Status DC Lactated Ringer's 1,000 ml @ 100 mls/hr Q10H IV ; Start 11/28/16 at 10:59; Stop 12/03/16 at 09:16; Status DC Cefazolin Sodium/ Dextrose 50 ml @ 100 mls/hr Q8H IV Last administered on 12/01 06:46; Start 11/28/16 at 15:00; Stop 12/01/16 at 14:59; Status DC Magnesium Hydroxide (Milk Of Magnesia Liq) 30 ml Q12H PRN PO MILD - MODERATE CONSTIPATION Last administered on 12/26/16 10:08; Start 11/28/16 at 11:30 Sennosides (Senokot) 17.2 mg Q12H PRN PO MODERATE - SEVERE CONSTIPATION Last administered on 12/25/16 09:48; Start 11/28/16 at 11:30 Bisacodyl (Dulcolax Supp) 10 mg DAILY PRN RECTAL SEVERE CONSITIPATION Last administered on 12/11/16 12:30; Start 11/28/16 at 11:30 Albuterol Sulfate (*ALBUTEROL NEB PERIprocedure ONLY) 2.5 mg STK-MED ONCE NEB Last administered on 11/28/16 11:38; Start 11/28/16 at 11:38; Stop 11/28/16 at 11:39; Status DC Dexamethasone Sodium Phosphate (Decadron Inj) 4 mg STK-MED ONCE .ROUTE ; Start 11/28/16 at 11:51; Stop 11/28/16 at 11:52; Status DC Dexamethasone Sodium Phosphate (Decadron Inj) 4 mg NOW ONCE IV Last administered on 11/28/16 12:00; Start 11/28/16 at 12:00; Stop 11/28/16 at 12:01 ; Status DC Miscellaneous Information ALL NURSING DEPARTME... UNSCH PRN .XX SEE LABEL COMMENTS; Start 11/28/16 at 11:22; Stop 11/29/16 at 11:21; Status DC Morphine Sulfate (*morphine INJ PERIprocedure ONLY) 8 mg STK-MED ONCE .ROUTE Last administered on 11/28/16 12:01; Start 11/28/16 at 12:01; Stop 11/28/16 at 12:02; Status DC Acetaminophen/ Hydrocodone Bitart ([place] 10-325 Mg) 1.5 tab Q4H PRN PO pain 6- 10 Last administered on 12/23/16 17:35; Start 11/28/16 at 15:00; Stop 12/23/16 at 18:38; Status DC Nystatin (Mycostatin Cream) 1 applic Q6HR TOPICAL Last administered on 05:00; Start 11/28/16 at 14:00; Stop 12/16/16 at 13:46; Status DC Morphine Sulfate (Oramorph Sr) 30 mg Q8HR PO Last administered on 12/03/16 06: 09; Start 11/29/16 at 22:00; Stop 12/03/16 at 12:16; Status DC Cetirizine HCl (ZyrTEC) 10 mg HS PO Last administered on 12/07/16 20:03; Start 12/01/16 at 21:00; Stop 12/08/16 at 20:59; Status DC Fluticasone Propionate (Flonase Jerzy Spr) 2 spray DAILY EACH NARE Last administered on 12/15/16 08:54; Start 12/01/16 at 11:00; Stop 12/15/16 at 10:59 ; Status DC Folic Acid (Folate) 1 mg DAILY PO Last administered on 01/11/17 07:55; Start 12/03/16 at 09:00 Morphine Sulfate (Oramorph Sr) 30 mg Q8HR PO Last administered on 01/11/17 05: 28; Start 12/03/16 at 14:00 Lactobacillus Acidophilus (Lactinex) 1 tab TID PO Last administered on 08:10; Start 12/04/16 at 09:00; Stop 12/05/16 at 09:26; Status DC Enoxaparin Sodium (Lovenox Inj) 40 mg DAILY SQ Last administered on 01/11/17 07:54; Start 12/05/16 at 09:00 Al Hydrox/Mg Hydrox/Simethicone (Mag-Al Plus Susp Liq) 30 ml ONCE ONCE PO Last administered on 12/04/16 11:55; Start 12/04/16 at 11:45; Stop 12/04/16 at 11:50; Status DC Al Hydrox/Mg Hydrox/Simethicone (Mag-Al Plus Susp Liq) 30 ml Q6HR PRN PO HEARTBURN, INDIGESTION Last administered on 01/06/17 11:29; Start 12/04/16 at 18:00 Sucralfate (Carafate Liq) 1 gm QID PO Last administered on 12/16/16 13:41; Start 12/05/16 at 09:00; Stop 12/16/16 at 13:43; Status DC Lactobacillus Acidophilus (Lactinex) 1 tab BID PO Last administered on 09:36; Start 12/05/16 at 21:00; Stop 12/18/16 at 10:47; Status DC Polyethylene Glycol (Miralax) 17 gm DAILY PRN PO CONSTIPATION; Start 12/08/16 at 10:00; Stop 12/11/16 at 15:18; Status DC Propranolol HCl (Inderal) 20 mg Q12HR PO Last administered on 12/09/16 20:34; Start 12/08/16 at 21:00; Stop 12/10/16 at 07:34; Status DC Lactated Ringer's 1,000 ml @ 30 mls/hr Q24H PRN IV SEE LABEL COMMENTS; Start at 01:30; Stop 12/12/16 at 01:29; Status DC Sodium Chloride 500 ml @ 30 mls/hr [id number] PRN IV SEE LABEL COMMENTS; Start at 01:30; Stop 12/12/16 at 01:29; Status DC Povidone Iodine (Betadine 5% Antisepsis Kit) 1 applic TECHNICAL SUPPORT AGENT PRN EACH NARE SEE LABEL COMMENTS; Start 12/09/16 at 01:30; Stop 12/12/16 at 01:29; Status DC Chlorhexidine Gluconate (Chlorhexidine 2% Cloth) 3 pack TECHNICAL SUPPORT AGENT PRN TOPICAL SEE LABEL COMMENTS; Start 12/09/16 at 01:30; Stop 12/12/16 at 01:29; Status DC Insulin Human Regular (NovoLIN R INJ) See Protocol Table ... TECHNICAL SUPPORT AGENT PRN SQ SEE PROTOCOL TABLE; Start 12/09/16 at 01:30; Stop 12/12/16 at 01:29; Status DC Bupivacaine HCl/ Epinephrine Bitart (Sensorcaine-Epinephrine 0.25% Inj) 50 ml STK-MED ONCE .ROUTE ; Start 12/09/16 at 14:07; Stop 12/09/16 at 14:08; Status DC Mineral Oil (Muri-Lube Oil) 10 ml STK-MED ONCE .ROUTE ; Start 12/09/16 at 14:07 ; Stop 12/09/16 at 14:08; Status DC Gentamicin Sulfate (Gentamicin Inj) 240 mg STK-MED ONCE .ROUTE Last administered on 12/09/16 15:31; Start 12/09/16 at 14:07; Stop 12/09/16 at 14:08 ; Status DC Vancomycin HCl (Vancomycin Inj) 1,000 mg STK-MED ONCE .ROUTE ; Start 12/09/16 at 15:06; Stop 12/09/16 at 15:07; Status DC Cefazolin Sodium/ Dextrose 50 ml @ As Directed STK-MED ONCE .ROUTE ; Start 12/09 at 15:06; Stop 12/09/16 at 15:07; Status DC Lactated Ringer's 1,000 ml @ 100 mls/hr Q10H IV ; Start 12/09/16 at 15:57; Stop 12/16/16 at 13:45; Status DC Cefazolin Sodium/ Dextrose 50 ml @ 100 mls/hr Q8H IV Last administered on 12/16 13:42; Start 12/09/16 at 20:00; Stop 12/16/16 at 19:59; Status DC Gentamicin Sulfate/Sodium Chloride 100 ml @ 200 mls/hr Q8H IV Last administered on 12/12/16 12:25; Start 12/09/16 at 21:00; Stop 12/12/16 at 20:59 ; Status DC Morphine Sulfate (*morphine INJ PERIprocedure ONLY) 8 mg STK-MED ONCE .ROUTE Last administered on 12/09/16 16:32; Start 12/09/16 at 16:32; Stop 12/09/16 at 16:33; Status DC Fentanyl Citrate (fentaNYL INJ) 250 mcg STK-MED ONCE .ROUTE ; Start 12/09/16 at 16:33; Stop 12/09/16 at 16:34; Status DC Miscellaneous Information ALL NURSING DEPARTME... UNSCH PRN .XX SEE LABEL COMMENTS; Start 12/09/16 at 16:20; Stop 12/10/16 at 16:19; Status DC Morphine Sulfate (*morphine INJ PERIprocedure ONLY) 8 mg STK-MED ONCE .ROUTE Last administered on 12/09/16 17:01; Start 12/09/16 at 17:01; Stop 12/09/16 at 17:02; Status DC Propranolol HCl (Inderal) 10 mg Q12HR PO Last administered on 12/13/16 09:42; Start 12/10/16 at 09:00; Stop 12/13/16 at 10:32; Status DC Menthol/Methyl Salicylate (Aleks Daniels Oint) 1 applic UNSCH PRN TOPICAL arthritic pain Last administered on 12/12/16 17:51; Start 12/11/16 at 15:30 Propranolol HCl (Inderal) 20 mg Q12HR PO ; Start 12/13/16 at 21:00; Stop at 21:00; Status DC Propranolol HCl (Inderal) 10 mg Q12HR PO Last administered on 01/11/17 07:55; Start 12/13/16 at 21:00 Bacitracin (Baciguent Oint) 1 applic DAILY PRN TOPICAL WOUND VAC DRESSING CHANGE; Start 12/15/16 at 12:30 Sucralfate (Carafate Liq) 1 gm BID PO Last administered on 12/30/16 08:30; Start 12/16/16 at 21:00; Stop 12/30/16 at 20:59; Status DC Lidocaine HCl (Lidoderm 5% Patch.12 Hr) 1 patch DAILY T-DERMAL Last administered on 12/18/16 11:33; Start 12/18/16 at 10:00; Stop 12/19/16 at 19:35 ; Status DC Miscellaneous Information 1 Q24H T-DERMAL ; Start 12/18/16 at 21:00; Stop at 19:35; Status DC Lactobacillus Acidophilus (Lactinex) 1 tab TID PO Last administered on 07:55; Start 12/18/16 at 13:00 Lidocaine HCl (Lidoderm 5% Patch.12 Hr) 1 patch HS T-DERMAL Last administered on 01/03/17 20:55; Start 12/19/16 at 21:00 Miscellaneous Information 1 Q24H T-DERMAL Last administered on 12/24/16 09:00; Start 12/20/16 at 09:00 Propofol (Diprivan 200 Mg/20 ml Inj) 200 mg STK-MED ONCE IV ; Start 11/07/16 at 12:00; Stop 12/23/16 at 10:36; Status DC Ephedrine Sulfate (ePHEDrine/NS 25 MG/5 ML SYR) 50 mg STK-MED ONCE IV ; Start at 12:00; Stop 12/23/16 at 10:36; Status DC Neostigmine Methylsulfate (Prostigmin Inj) 3 mg STK-MED ONCE IV ; Start at 12:00; Stop 12/23/16 at 10:36; Status DC Phenylephrine HCl (Neosynephrine/ NS 1000 Mcg/10ml Syr) 1,000 mcg STK-MED ONCE IV ; Start 11/07/16 at 12:00; Stop 12/23/16 at 10:37; Status DC Ondansetron HCl (Zofran Inj) 4 mg STK-MED ONCE IV PUSH ; Start 11/07/16 at 12:00 ; Stop 12/23/16 at 10:37; Status DC Lactated Ringer's 1,000 ml @ As Directed STK-MED ONCE IV ; Start 11/07/16 at 12 :00; Stop 12/23/16 at 10:37; Status DC Parenteral Electrolytes 1,000 ml @ As Directed STK-MED ONCE IV ; Start at 12:00; Stop 12/23/16 at 10:37; Status DC Propofol (Diprivan 200 Mg/20 ml Inj) 400 mg STK-MED ONCE IV ; Start 11/10/16 at 12:00; Stop 12/23/16 at 12:04; Status DC Phenylephrine HCl (Neosynephrine/ NS 1000 Mcg/10ml Syr) 2,000 mcg STK-MED ONCE IV ; Start 11/10/16 at 12:00; Stop 12/23/16 at 12:04; Status DC Ondansetron HCl (Zofran Inj) 4 mg STK-MED ONCE IV PUSH ; Start 11/10/16 at 12:00 ; Stop 12/23/16 at 12:04; Status DC Lactated Ringer's 1,000 ml @ As Directed STK-MED ONCE IV ; Start 11/10/16 at 12 :00; Stop 12/23/16 at 12:04; Status DC Propofol (Diprivan 200 Mg/20 ml Inj) 200 mg STK-MED ONCE IV ; Start 11/13/16 at 12:00; Stop 12/23/16 at 12:38; Status DC Ephedrine Sulfate (ePHEDrine/NS 25 MG/5 ML SYR) 25 mg STK-MED ONCE IV ; Start at 12:00; Stop 12/23/16 at 12:38; Status DC Phenylephrine HCl (Neosynephrine/ NS 1000 Mcg/10ml Syr) 1,000 mcg STK-MED ONCE IV ; Start 11/13/16 at 12:00; Stop 12/23/16 at 12:38; Status DC Ondansetron HCl (Zofran Inj) 4 mg STK-MED ONCE IV PUSH ; Start 11/13/16 at 12:00 ; Stop 12/23/16 at 12:38; Status DC Lactated Ringer's 1,000 ml @ As Directed STK-MED ONCE IV ; Start 11/13/16 at 12 :00; Stop 12/23/16 at 12:38; Status DC Neostigmine Methylsulfate (Prostigmin Inj) 3 mg STK-MED ONCE IV ; Start at 12:00; Stop 12/23/16 at 12:38; Status DC Propofol (Diprivan 200 Mg/20 ml Inj) 200 mg STK-MED ONCE IV ; Start 11/28/16 at 12:00; Stop 12/23/16 at 12:50; Status DC Ephedrine Sulfate (ePHEDrine/NS 25 MG/5 ML SYR) 25 mg STK-MED ONCE IV ; Start at 12:00; Stop 12/23/16 at 12:50; Status DC Ondansetron HCl (Zofran Inj) 4 mg STK-MED ONCE IV PUSH ; Start 11/28/16 at 12:00 ; Stop 12/23/16 at 12:50; Status DC Propofol (Diprivan 200 Mg/20 ml Inj) 200 mg STK-MED ONCE IV ; Start 12/09/16 at 12:00; Stop 12/23/16 at 14:38; Status DC Ephedrine Sulfate (ePHEDrine/NS 25 MG/5 ML SYR) 50 mg STK-MED ONCE IV ; Start at 12:00; Stop 12/23/16 at 14:38; Status DC Ondansetron HCl (Zofran Inj) 4 mg STK-MED ONCE IV PUSH ; Start 12/09/16 at 12:00 ; Stop 12/23/16 at 14:38; Status DC Acetaminophen/ Hydrocodone Bitart ([place] 10-325 Mg) 2 tab Q4H PRN PO pain 6-10 Last administered on 01/11/17 09:13; Start 12/23/16 at 18:45 Vancomycin HCl 5000 mg/Sodium Chloride 3,000 ml @ 10 mls/hr Q24H PRN IRRIGATION DRESSING CHANGE Last administered on 01/08/17 01:36; Start 12/25/16 at 08:00 Diphenhydramine HCl (Benadryl) 12.5 mg Q4H PRN PO itching Last administered on 12/28/16 07:54; Start 12/25/16 at 16:45; Stop 12/28/16 at 13:48; Status DC Ferrous Sulfate (Ferrous Sulfate) 325 mg BID@12,17 PO Last administered on 01/10 17:26; Start 12/26/16 at 12:00 Ascorbic Acid (Vitamin C) 500 mg BID PO Last administered on 01/11/17 07:56; Start 12/26/16 at 09:00 Pharmacy Profile Note 0 ml @ 0 mls/hr UNSCH OTHER ; Start 12/26/16 at 14:45 Vancomycin HCl 1500 mg/Sodium Chloride 515 ml @ 257.5 mls/ hr Q12H IV Last administered on 12/26/16 20:17; Start 12/26/16 at 17:00; Stop 12/27/16 at 04:54; Status DC Miscellaneous Information SPECIFIC LAB TO BE LEANNA... ONCE ONCE .XX ; Start 12/28 at 04:45; Stop 12/28/16 at 04:46; Status Cancel Vancomycin HCl 1500 mg/Sodium Chloride 515 ml @ 257.5 mls/ hr Q12H IV Last administered on 12/29/16 20:50; Start 12/27/16 at 08:00; Stop 12/29/16 at 20:35 ; Status DC Miscellaneous Information SPECIFIC LAB TO BE LEANNA... ONCE ONCE .XX ; Start 12/28 at 07:45; Stop 12/28/16 at 07:46; Status DC Miscellaneous Information SPECIFIC LAB TO BE LEANNA... ONCE ONCE .XX Last administered on 12/29/16 20:45; Start 12/29/16 at 20:45; Stop 12/29/16 at 20:46 ; Status DC Diphenhydramine HCl (Benadryl) 50 mg Q4H PRN PO itching Last administered on 19:55; Start 12/28/16 at 16:45 Vancomycin HCl 1500 mg/Sodium Chloride 515 ml @ 257.5 mls/ hr Q12H IV Last administered on 01/03/17 08:51; Start 12/29/16 at 21:00; Stop 01/03/17 at 22:00 ; Status DC Miscellaneous Information SPECIFIC LAB TO BE DRAWN:VANCO TROUGH DATE TO BE DR... ONCE ONCE .XX Last administered on 12/31/16 08:45; Start 12/31/16 at 08 :45; Stop 12/31/16 at 08:46; Status DC Miscellaneous Information SPECIFIC LAB TO BE LEANNA... ONCE ONCE .XX ; Start 01/03 at 08:45; Stop 01/03/17 at 08:46; Status DC Fluticasone Propionate (Flonase Jerzy Spr) 1 spray BID NASAL Last administered on 01/11/17 07:57; Start 01/02/17 at 21:00 Miscellaneous Information SPECIFIC LAB TO BE DRAWN:VANCOMY... ONCE ONCE .XX Last administered on 01/03/17 20:45; Start 01/03/17 at 20:45; Stop 01/03/17 at 20:46; Status DC Vancomycin HCl 1500 mg/Sodium Chloride 515 ml @ 257.5 mls/ hr Q12H IV Last administered on 01/10/17 21:01; Start 01/03/17 at 22:00 Miscellaneous Information SPECIFIC LAB TO BE LEANNA... ONCE ONCE .XX ; Start 01/04 at 21:45; Stop 01/04/17 at 21:46; Status DC Miscellaneous Information SPECIFIC LAB TO BE LEANNA... ONCE ONCE .XX ; Start 01/05 at 21:45; Stop 01/05/17 at 21:46; Status DC Calcium Carbonate (Tums Chew) 500 mg Q12HR CHEW Last administered on 01/11/17 07:55; Start 01/05/17 at 11:30 Cefazolin Sodium/ Dextrose 50 ml @ As Directed STK-MED ONCE .ROUTE Last administered on 01/09/17 13:01; Start 01/09/17 at 11:31; Stop 01/09/17 at 11:32 ; Status DC Lidocaine HCl (Xylocaine 2% Jelly) 30 applic STK-MED ONCE .ROUTE Last administered on 01/09/17 13:08; Start 01/09/17 at 11:31; Stop 01/09/17 at 11:32 ; Status DC Mineral Oil (Muri-Lube Oil) 10 ml STK-MED ONCE .ROUTE Last administered on 01/09 13:08; Start 01/09/17 at 11:31; Stop 01/09/17 at 11:32; Status DC Gentamicin Sulfate (Gentamicin Inj) 240 mg STK-MED ONCE .ROUTE Last administered on 01/09/17 13:08; Start 01/09/17 at 11:31; Stop 01/09/17 at 11:32 ; Status DC Lactated Ringer's 1,000 ml @ 100 mls/hr Q10H IV Last administered on 14:15; Start 01/09/17 at 13:34 Morphine Sulfate (*morphine INJ PERIprocedure ONLY) 8 mg STK-MED ONCE .ROUTE Last administered on 01/09/17 14:10; Start 01/09/17 at 14:10; Stop 01/09/17 at 14:11; Status DC Miscellaneous Information ALL NURSING DEPARTME... UNSCH PRN .XX SEE LABEL COMMENTS; Start 01/09/17 at 13:52; Stop 01/10/17 at 13:51; Status DC Miscellaneous Information SPECIFIC LAB TO BE ... ONCE ONCE .XX ; Start 01/11 at 09:45; Stop 01/11/17 at 09:46 A/P Assessment and Plan A/P Bilateral open tibia-fibula fractures Left tibial plateau fracture - Open fractures have been surgically repaired, right side has external fixation - s/p Removal of external fixation right lower extremity, irrigation debridement of left leg, split-thickness skin graft left leg, application wound VAC dressing on 01/09 - left tibial plateau fracture treated nonoperatively - Lortab dose when necessary, Oramorph 30mg every 8 hours. -Most likely patient will need 2-3 weeks more hospitalization for irrigation with vancomycin. -management per ortho MRSA - wound culture 12/23 positive for MRSA -on Vanco- evaluated by ID Acute blood loss anemia JAMAR - Related to trauma vs post op blood loss - Status post transfusion of 2 units of packed red blood cells in 11/12/16. - on iron supplementation daily. - hemoglobin stable - monitor CBC as indicated Coronary artery disease with h/o previous CABG - Appears stable. Patient is asymptomatic. - Continue propranolol and statin - ASA 81mg daily - Clonidine PRN Hypertension - controlled - MARGIE inhibitor held due to hypotension. Diabetes mellitus type 2 - blood sugars well controlled - accu checks discontinued Alcohol abuse Transaminitis, resolved - AST and ALT now within normal range. - Continue with daily thiamine and folic acid - Alcohol cessation recommended Tobacco abuse - Cessation recommended. Chronic essential tremor - Continue Propranolol Allergic rhinitis - Flonase Indigestion -Patient on Protonix and Maalox. DVT prophylaxis with Lovenox Blaine Corrales MD Jan 11, 2017 09:27
[2017-01-11] MEDS ORDERED: PHARMACY ORDERED LAB ONE (09:45)
[2017-01-11 12:00] VITALS: BP 118/69; PULSE 64; RESP 18; TEMP 96.1; O2SAT 96
[2017-01-11] MEDS: VANCOMYCIN 1,500 MG/NS 500 ML IV SCH ×4 (13:27→21:36)
[2017-01-11] MEDS: FERROUS SULFATE 325 MG (65 MG ELEMENTAL IRON) TAB PO SCH ×2 (13:29→17:33)
[2017-01-11 16:00] VITALS: BP 116/65; PULSE 67; RESP 18; TEMP 97.1; O2SAT 96
[2017-01-11 19:36] VITALS: BP 111/69; PULSE 71; RESP 18; TEMP 96.4; O2SAT 98
[2017-01-11] MEDS: PRAVASTATIN SOD 80 MG TAB PO SCH (20:05)
[2017-01-11] MEDS: diphenhydrAMINE HCL 50 MG CAP PO PRN (20:06)
[2017-01-11] MEDS: traZODone HCL 100 MG TAB PO SCH (20:06)
[2017-01-11] MEDS: LIDOCAINE HCL 5% PATCH T-DERMAL SCH (20:07)
[2017-01-11] MEDS: MAGNESIUM HYDROXIDE SUSP 30 ML CUP PO SCH (20:07)
[2017-01-12] MEDS: ACETAMINOPHEN/HYDROcodone 325 MG/10 MG TAB PO PRN ×5 (05:05→22:10)
[2017-01-12] MEDS: MORPHINE SULFATE 30 MG CONTROLLED RELEASE TAB PO SCH ×3 (05:06→20:59)
--- NOTE | 2017-01-12 06:52 | PD.ORT.PN ---
Subjective Subjective Remarks s/p left tibia IMN and right tibia ORIF with exfix s/p left tibia soleus flap s/p left tibial plateau fracture POD 3 s/p STSG left leg and removal of exfix right leg reports pain at harvest site. otherwise, no complaints. Objective Vitals Vital Signs Date Time Temp Pulse Resp B/P (MAP) Pulse Ox O2 Delivery O2 Flow Rate FiO2 01/11/17 19:36 96.4 71 18 111/69 (83) 98 01/11/17 16:00 97.1 67 18 116/65 (82) 96 01/11/17 12:00 96.1 64 18 118/69 (85) 96 01/11/17 08:52 96 21 01/11/17 08:00 99.5 80 17 136/88 (104) 96 I/O 01/11/17 01/11/17 01/11/17 01/12/17 01/12/17 01/12/17 07:00 15:00 23:00 07:00 15:00 23:00 Intake Total 560 ml 720 ml 995 ml 480 ml Output Total 1500 ml 550 ml 5 ml Balance -940 ml 170 ml 990 ml 480 ml Intake Oral 560 ml 720 ml 480 ml 480 ml IV Total 515 ml Output Urine Total 1500 ml 550 ml Drainage Total 0 ml 5 ml # Voids 1 5 2 # Bowel Movements 0 1 0 Result Diagram: 01/10/17 0417 01/11/17 0611 Imaging Last 24 hours Impressions Pelvis X-Ray 11/07/16 1355 Signed Impressions: Service Date/Time: Monday, November 07, 2016 13:34 - CONCLUSION: No acute disease. Behzad Finch Jr., MD Chest X-Ray 11/07/16 1302 Signed Impressions: Service Date/Time: Monday, November 07, 2016 13:34 - CONCLUSION: No acute disease. Jac Gonzales MD Objective Remarks RLE: +fracture boot. dressings clean and dry LLE: +short leg splint. intact. +vac. good seal. harvest site dressings with mild bloody drainage Assessment & Plan Assessment and Plan 1) Right Open Tibia Fracture s/p exfix revision with ORIF 2) Left Open Tibia Fracture s/p Soleus muscle flap with IMN and removal of exfix 3) left tibia plateau fracture treated nonoperatively 4) s/p STSG left leg - POD 3 LLE: -50%WB for transfers only -maintain splint at all times -maintain vac at all times -vac settinmmHg, low, continuous -will plan to remove vac at bedside on thursday -daily dressing changes of harvest site. change ABD only. leave xeroform in place. RLE: -NWB -fx boot at all times except for PT -PT to work on ankle ROM -daily dressing changes of pin sites with xeroform/4x4/tamia Jef Steve Jan 12, 2017 06:52
[2017-01-12 08:00] VITALS: BP 112/67; PULSE 78; RESP 18; TEMP 96.8; O2SAT 98
[2017-01-12] MEDS: FLUTICASONE PROPIONATE 50 MCG/ACT 16 GM NASAL SPRAY NASAL SCH ×2 (09:00→21:00)
[2017-01-12] MEDS: SODIUM CHLORIDE 0.9% FLUSH 10 ML FLUSH IV FLUSH SCH ×2 (09:00→20:59)
[2017-01-12] MEDS: REMOVE OLD LIDOCAINE PATCH T-DERMAL SCH (09:00)
[2017-01-12] MEDS: NEOMYCIN/POLYMYXIN/BACITRACIN OINT 15 GM TUBE TOPICAL SCH (09:00)
[2017-01-12] MEDS: ENOXAPARIN SODIUM 40 MG/0.4 ML SYRINGE SQ SCH (09:05)
[2017-01-12] MEDS: DOCUSATE SODIUM 50 MG/SENNA 8.6 MG TAB PO SCH ×2 (09:06→21:00)
[2017-01-12] MEDS: PROPRANOLOL HCL 10 MG TAB PO SCH ×2 (09:06→20:59)
[2017-01-12] MEDS: CALCIUM CARBONATE 500 MG CHEWABLE TAB CHEW SCH ×2 (09:06→20:59)
[2017-01-12] MEDS: ASPIRIN 81 MG CHEW TAB CHEW SCH (09:06)
[2017-01-12] MEDS: CALCIUM/VITAMIN D 250 MG/125 U TAB PO SCH ×3 (09:06→18:12)
[2017-01-12] MEDS: GABAPENTIN 300 MG CAP PO SCH ×3 (09:06→18:12)
[2017-01-12] MEDS: ASCORBIC ACID 500 MG TAB PO SCH ×2 (09:06→20:59)
[2017-01-12] MEDS: LACTOBACILLUS ACIDOPHILUS TAB PO SCH ×3 (09:06→18:11)
[2017-01-12] MEDS: FOLIC ACID 1 MG TAB PO SCH (09:06)
[2017-01-12] MEDS: THIAMINE HCL 100 MG TAB PO SCH (09:06)
[2017-01-12] MEDS: PANTOPRAZOLE SOD 40 MG DELAYED RELEASE TAB PO SCH (09:06)
[2017-01-12] MEDS: VANCOMYCIN 1,500 MG/NS 500 ML IV SCH ×4 (09:10→21:00)
--- NOTE | 2017-01-12 09:10 | HHI.PR ---
Subjective Remarks resting comfortably with no distress. pain seems to be fairly controlled. no new complaints. no acute issues over night. d/w the RN. Objective Vitals Vital Signs Date Time Temp Pulse Resp B/P (MAP) Pulse Ox O2 Delivery O2 Flow Rate FiO2 01/12/17 08:00 96.8 78 18 112/67 (82) 98 01/11/17 19:36 96.4 71 18 111/69 (83) 98 01/11/17 16:00 97.1 67 18 116/65 (82) 96 01/11/17 12:00 96.1 64 18 118/69 (85) 96 I/O 01/11/17 01/11/17 01/11/17 01/12/17 01/12/17 01/12/17 07:00 15:00 23:00 07:00 15:00 23:00 Intake Total 560 ml 720 ml 995 ml 480 ml Output Total 1500 ml 550 ml 5 ml Balance -940 ml 170 ml 990 ml 480 ml Intake Oral 560 ml 720 ml 480 ml 480 ml IV Total 515 ml Output Urine Total 1500 ml 550 ml Drainage Total 0 ml 5 ml # Voids 1 5 2 # Bowel Movements 0 1 0 Result Diagram: 01/10/17 0417 01/11/17 0611 Imaging Last Impressions Ankle X-Ray 01/09/17 0000 Signed Impressions: Service Date/Time: Monday, January 09, 2017 12:59 - CONCLUSION: Fluoroscopic images during placement of screws along the distal tibia and single long screw along the distal fibula. Fractures are again seen.. Jac Gonzales MD Tibia/Fibula X-Ray 01/01/17 0000 Signed Impressions: Service Date/Time: December 09:33 - CONCLUSION: There are no complications. Paul Fuentes MD Knee X-Ray 01/01/17 0000 Signed Impressions: Service Date/Time: December 09:37 - CONCLUSION: Lateral tibial plateau fracture without involvement of the articulating surface. Paul Fuentes MD Foot X-Ray 12/27/16 0000 Signed Impressions: Service Date/Time: Tuesday, December 27, 2016 16:50 - CONCLUSION: Distal tibia and fibula fractures with internal fixation hardware. Samir Massey MD Gall Bladder Ultrasound 12/05/16 0000 Signed Impressions: Service Date/Time: Monday, December 05, 2016 08:38 - CONCLUSION: Unremarkable exam. Gallbladder is within normal limits with no evidence of cholelithiasis. Ronald Rao MD Abdomen X-Ray 12/04/16 0000 Signed Impressions: Service Date/Time: November 10:42 - CONCLUSION: Unremarkable bowel gas pattern. Ronald Rao MD Chest X-Ray 11/20/16 0000 Signed Impressions: Service Date/Time: November 17:08 - CONCLUSION: 1. No acute abnormality or significant interval change. Sukhi Stevens MD Pelvis X-Ray 11/07/16 1355 Signed Impressions: Service Date/Time: Monday, November 07, 2016 13:34 - CONCLUSION: No acute disease. Behzad Finch Jr., MD Objective Remarks GENERAL: This is a well-nourished, well-developed patient, in no apparent distress. CARDIOVASCULAR: Regular rate and regular rhythm without murmurs, gallops, or rubs. RESPIRATORY: Clear to auscultation. Breath sounds equal bilaterally. No wheezes , rales, or rhonchi. GASTROINTESTINAL: Abdomen soft, non-tender, nondistended. Normal, active bowel sounds MUSCULOSKELETAL: both legs covered with clean dressing. NEURO: Alert & Oriented x4 to person, place, time, situation. Moves all ext x4 Procedures 1.s/p I&D with ex fix application bilateral tibias s/p wound vac application left tibia 2.With the assistance of RN, under sterile technique the avulsed skin of the right middle finger was clipped. No bleeding noted. Patient gave consent 3.Open reduction internal fixation of right distal tibia and fibula fractures Nonoperative treatment left tibial plateau fracture Irrigation and debridement of left tibia shaft fracture, removal external fixation, soleus muscle rotational flap, intramedullary nail fixation left tibia , application of wound VAC dressing 4.7 Irrigation and debridement of left tibia, application wound VAC dressing 5. 8 Irrigation and debridement of left open tibia fracture with application of wound VAC dressing 6. 8 wound vac change at the bedside 7. 8 wound vac change at the bedside 8. 8 wound vac change at the bedside 9. 8 I&D left tibia, application of wound VAC dressing and application of AlloMax allograft dermal matrix 10. 01/09 Removal of external fixation right lower extremity, irrigation debridement of left leg, split-thickness skin graft left leg, application wound VAC dressing Medications and IVs Current Medications Cefazolin Sodium/ Dextrose 50 ml @ As Directed STK-MED ONCE .ROUTE Last administered on 11/13/16 08:09; Start 11/07/16 at 13:58; Stop 11/07/16 at 13:59 ; Status DC Diphtheria/ Tetanus/Acell Pertussis (Boostrix Inj) 0.5 ml STK-MED ONCE IM ; Start 11/07/16 at 13:58; Stop 11/07/16 at 13:59; Status DC Morphine Sulfate (Morphine Inj) 8 mg STK-MED ONCE .ROUTE ; Start 11/07/16 at 14: 01; Stop 11/07/16 at 14:02; Status DC Hydromorphone HCl (Dilaudid Pf Inj) 1 mg STK-MED ONCE .ROUTE Last administered on 11/07/16 19:15; Start 11/07/16 at 14:05; Stop 11/07/16 at 14:06; Status DC Lactated Ringer's 1,000 ml @ 100 mls/hr Q10H IV ; Start 11/07/16 at 14:22; Stop 11/07/16 at 19:02; Status DC Sodium Chloride (NS Flush) 2 ml UNSCH PRN IV FLUSH FLUSH AFTER USING IV ACCESS Last administered on 12/11/16 11:31; Start 11/07/16 at 14:30 Sodium Chloride (NS Flush) 2 ml BID IV FLUSH Last administered on 01/10/17 11: 11; Start 11/07/16 at 21:00 Ondansetron HCl (Zofran Inj) 4 mg Q6H PRN IV NAUSEA OR VOMITING Last administered on 12/04/16 06:13; Start 11/07/16 at 14:30 Pantoprazole Sodium (Protonix Inj) 40 mg Q24H IV Last administered on 20:00; Start 11/07/16 at 17:00; Stop 11/08/16 at 08:09; Status DC Docusate Sodium (Colace) 100 mg BID PO ; Start 11/07/16 at 21:00; Stop 11/08/16 at 13:04; Status DC Cefazolin Sodium 1000 mg/Sodium Chloride 100 ml @ 200 mls/hr Q8H IV ; Start at 22:00; Stop 11/07/16 at 22:00; Status DC Miscellaneous Information (Post-op Orders (for Pharmacy)) STAT ONCE XX ; Start 11/07/16 at 14:30; Stop 11/07/16 at 15:39; Status DC Oxycodone/ Acetaminophen (Percocet 10-325 Mg) 1 tab Q4H PRN PO 3-5; Start 11/07 at 14:30; Stop 11/07/16 at 19:03; Status DC Hydromorphone HCl (Dilaudid Pf Inj) 1 mg Q2H PRN IV Pain 6-10; Start 11/07/16 at 14:30; Stop 11/07/16 at 19:11; Status DC Naloxone HCl (Narcan Inj) 0.4 mg UNSCH PRN IV SEE LABEL COMMENTS; Start at 14:30 Gentamicin Sulfate (Gentamicin Inj) 80 mg Q8H IM ; Start 11/07/16 at 14:30; Stop 11/07/16 at 15:37; Status DC Hydromorphone HCl (Dilaudid Pf Inj) 0.5 mg FLAKE CUTTER OPERATOR DOSING PRN IV PUSH pain; Start 11/07/16 at 14:45; Stop 11/07/16 at 19:11; Status DC Gentamicin Sulfate/Sodium Chloride 100 ml @ 200 mls/hr Q8H IV ; Start 11/07/16 at 17:00; Status Cancel Miscellaneous Information (Post-op Orders (for Pharmacy)) UNSCH X1 XX ; Start 11/07/16 at 15:45; Stop 11/08/16 at 06:00; Status DC Cefazolin Sodium (Ancef Inj) 1,000 mg STK-MED ONCE .ROUTE Last administered on 11/07/16 16:26; Start 11/07/16 at 15:48; Stop 11/07/16 at 15:49; Status DC Gentamicin Sulfate (Gentamicin Inj) 80 mg STK-MED ONCE .ROUTE Last administered on 11/07/16 16:26; Start 11/07/16 at 15:49; Stop 11/07/16 at 15:50 ; Status DC Acetaminophen (Ofirmev Inj) 1,000 mg STK-MED ONCE IV ; Start 11/07/16 at 15:56; Stop 11/07/16 at 15:57; Status DC Midazolam HCl (Versed Inj) 2 mg STK-MED ONCE .ROUTE ; Start 11/07/16 at 15:56; Stop 11/07/16 at 15:57; Status DC Famotidine (Pepcid Inj) 20 mg STK-MED ONCE .ROUTE ; Start 11/07/16 at 15:56; Stop 11/07/16 at 15:57; Status DC Gentamicin Sulfate (Gentamicin Inj) 240 mg STK-MED ONCE IRRIGATION Last administered on 11/07/16 16:26; Start 11/07/16 at 16:26; Stop 11/07/16 at 16:42 ; Status DC Fentanyl Citrate (fentaNYL INJ) 250 mcg STK-MED ONCE .ROUTE ; Start 11/07/16 at 17:03; Stop 11/07/16 at 17:04; Status DC Gentamicin Sulfate (Gentamicin Inj) 240 mg STK-MED ONCE .ROUTE Last administered on 11/07/16 16:26; Start 11/07/16 at 17:10; Stop 11/07/16 at 17:11 ; Status DC Lactated Ringer's 1,000 ml @ 100 mls/hr Q10H IV Last administered on 07:51; Start 11/07/16 at 18:00; Stop 11/08/16 at 12:46; Status DC Enoxaparin Sodium (Lovenox Inj) 30 mg Q12H SQ ; Start 11/08/16 at 17:00; Stop at 11:48; Status DC Cefazolin Sodium/ Dextrose 50 ml @ 100 mls/hr Q8H IV Last administered on 11/10 08:16; Start 11/08/16 at 00:00; Stop 11/10/16 at 12:47; Status DC Gentamicin Sulfate/Sodium Chloride 100 ml @ 200 mls/hr Q8H IV Last administered on 11/10/16 16:30; Start 11/08/16 at 00:00; Stop 11/10/16 at 16:29 ; Status DC Acetaminophen/ Hydrocodone Bitart (Sterling 10-325 Mg) 1 tab Q3H PRN PO PAIN 3<10 Last administered on 11/08/16 10:36; Start 11/07/16 at 18:00; Stop 11/08/16 at 13:04; Status DC Morphine Sulfate (Morphine Inj) 4 mg Q3H PRN IV PUSH Break thru Pain Last administered on 11/08/16 07:50; Start 11/07/16 at 18:00; Stop 11/08/16 at 12:21 ; Status DC Ketorolac Tromethamine (Toradol Inj) 30 mg Q12H IVP Last administered on 05:32; Start 11/07/16 at 18:00; Stop 11/10/16 at 06:01; Status DC Bacitracin (Baciguent Oint) 15 applic STK-MED ONCE .ROUTE Last administered on 11/07/16 18:09; Start 11/07/16 at 18:09; Stop 11/07/16 at 18:10; Status DC Miscellaneous Information ALL NURSING DEPARTME... UNSCH PRN .XX SEE LABEL COMMENTS; Start 11/07/16 at 18:33; Stop 11/08/16 at 18:32; Status DC Acetaminophen (Tylenol) 650 mg Q4H PRN PO Temp > 100.4, pain 1-2; Start at 08:15 Magnesium Hydroxide (Milk Of Magnesia Liq) 30 ml DAILY PRN PO for Severe Constipation Last administered on 11/09/16 20:15; Start 11/08/16 at 08:15; Stop 11/10/16 at 09:00; Status DC Calcium Carbonate (Tums Chew) 1,000 mg TID PRN CHEW DYSPEPSIA Last administered on 01/09/17 22:36; Start 11/08/16 at 08:15 Dextrose (D50w (Vial) Inj) 50 ml UNSCH PRN IV HYPOGLYCEMIA-SEE COMMENTS; Start 11/08/16 at 08:15; Stop 12/03/16 at 09:16; Status DC Glucagon (Glucagon Inj) 1 mg UNSCH PRN OTHER HYPOGLYCEMIA-SEE COMMENTS; Start 11/08/16 at 08:15; Stop 12/03/16 at 09:16; Status DC Insulin Aspart (NovoLOG SUPPLEMENTAL SCALE) 1 ACHS SLIDING SCALE SQ Last administered on 12/01/16 13:21; Start 11/08/16 at 11:00; Stop 12/03/16 at 09:16 ; Status DC Enalaprilat (Vasotec Inj) 1.25 mg Q6H PRN IV SBP> OR = 180, DBP> OR = 100; Start 11/08/16 at 08:15 Clonidine (Catapres) 0.1 mg Q6H PRN PO SBP> OR = 180, DBP> OR = 100; Start at 08:15 Gabapentin (Neurontin) 400 mg TID PO Last administered on 11/16/16 09:10; Start 11/08/16 at 13:00; Stop 11/16/16 at 11:46; Status DC Morphine Sulfate (Morphine Inj) 6 mg Q3H PRN IV PUSH PAIN 6-10 Last administered on 11/17/16 15:09; Start 11/08/16 at 15:00; Stop 11/18/16 at 16:37 ; Status DC Aspirin (Aspirin Chew) 81 mg DAILY CHEW Last administered on 01/11/17 07:55; Start 11/08/16 at 12:45 Ferrous Sulfate (Ferrous Sulfate) 325 mg DAILY PO Last administered on 08:11; Start 11/08/16 at 12:45; Stop 12/05/16 at 09:25; Status DC Lisinopril (Prinivil) 25 mg DAILY PO Last administered on 11/18/16 09:59; Start 11/08/16 at 12:45; Status Future Hold Nitroglycerin (Nitrostat Sl) 0.4 mg Q6HR PRN SL CHEST PAIN; Start 11/08/16 at 12:45 Pantoprazole Sodium (Protonix) 40 mg DAILY PO Last administered on 01/11/17 07 :55; Start 11/08/16 at 12:45 Pravastatin Sodium (Pravachol) 80 mg HS PO Last administered on 01/11/17 20:05 ; Start 11/08/16 at 21:00 Propranolol HCl (Inderal) 80 mg Q12HR PO Last administered on 11/18/16 10:01; Start 11/08/16 at 21:00; Stop 11/22/16 at 12:49; Status DC Miscellaneous (Pill Splitter) 1 ea UNSCH PRN OTHER SEE LABEL COMMENTS; Start at 12:45 Senna/Docusate Sodium (Elke-Colace) 1 tab BID PO Last administered on 20:05; Start 11/08/16 at 12:45; Status Future hold Lactulose (Lactulose Liq) 30 ml DAILY PRN PO No BM in 2 days; Start 11/08/16 at 12:45; Stop 11/10/16 at 07:47; Status DC Acetaminophen/ Hydrocodone Bitart (Sterling 10-325 Mg) 1.5 tab Q3H PRN PO PAIN 3- 10 Last administered on 11/09/16 23:46; Start 11/08/16 at 15:00; Stop 11/10/16 at 12:45; Status DC Folic Acid (Folate) 1 mg DAILY PO Last administered on 11/12/16 09:14; Start 11/09/16 at 09:00; Stop 11/14/16 at 08:59; Status DC Thiamine HCl (Vitamin B1) 100 mg DAILY PO Last administered on 01/11/17 07:55 ; Start 11/09/16 at 09:00 Multivitamins/ Minerals Therapeutic (Theragran M Tab) 1 tab DAILY PO Last administered on 11/12/16 09:13; Start 11/09/16 at 09:00; Stop 11/14/16 at 08:59 ; Status DC Flumazenil (Romazicon Inj) 0.2 mg Q1M PRN IV PUSH SEE LABEL COMMENTS; Start at 13:00 Lorazepam (Ativan) 1 mg Q4H PRN PO CIWA 8 - 10; Start 11/08/16 at 13:00; Stop 11/26/16 at 16:05; Status DC Lorazepam (Ativan Inj) 1 mg Q4H PRN IV PUSH CIWA 8 - 10; Start 11/08/16 at 13: 00; Stop 11/26/16 at 16:05; Status DC Lorazepam (Ativan) 2 mg Q2H PRN PO CIWA 11-14; Start 11/08/16 at 13:00; Stop at 16:05; Status DC Lorazepam (Ativan Inj) 2 mg Q2H PRN IV PUSH CIWA 11-14; Start 11/08/16 at 13:00 ; Stop 11/26/16 at 16:05; Status DC Lorazepam (Ativan Inj) 2 mg Q1H PRN IV PUSH CIWA 15-20; Start 11/08/16 at 13:00 ; Stop 11/26/16 at 16:05; Status DC Lorazepam (Ativan Inj) 2 mg Q15M PRN IV PUSH CIWA > 20; Start 11/08/16 at 13:00 ; Stop 11/26/16 at 16:05; Status DC Haloperidol Lactate (Haldol Inj) 2 mg Q15M PRN IM SEE LABEL COMMENTS; Start at 13:00 Lactated Ringer's 1,000 ml @ 30 mls/hr Q24H PRN IV SEE LABEL COMMENTS; Start at 00:45; Stop 11/09/16 at 12:05; Status DC Sodium Chloride 500 ml @ 30 mls/hr [id number] PRN IV SEE LABEL COMMENTS; Start at 00:45; Stop 11/09/16 at 12:05; Status DC Metoprolol Tartrate (Lopressor) 25 mg COAT FINISHER PRN PO SEE LABEL COMMENTS; Start 11/09/16 at 00:45; Stop 11/12/16 at 00:44; Status DC Povidone Iodine (Betadine 5% Antisepsis Kit) 1 applic COAT FINISHER PRN EACH NARE SEE LABEL COMMENTS; Start 11/09/16 at 00:45; Stop 11/12/16 at 00:44; Status DC Chlorhexidine Gluconate (Chlorhexidine 2% Cloth) 3 pack COAT FINISHER PRN TOPICAL SEE LABEL COMMENTS; Start 11/09/16 at 00:45; Stop 11/09/16 at 12:05; Status DC Insulin Human Regular (NovoLIN R INJ) See Protocol Table ... COAT FINISHER PRN SQ SEE PROTOCOL TABLE; Start 11/09/16 at 00:45; Stop 11/12/16 at 00:44; Status DC Potassium Chloride (KCl) 20 meq ONCE ONCE PO Last administered on 11/09/16 11 :40; Start 11/09/16 at 11:00; Stop 11/09/16 at 11:01; Status DC Neomycin/ Polymyxin/ Bacitracin (Neosporin Oint) 1 applic DAILY TOPICAL Last administered on 01/10/17 09:00; Start 11/10/16 at 09:00 Lactulose (Lactulose Liq) 30 ml DAILY PO Last administered on 12/02/16 09:18; Start 11/10/16 at 09:00; Stop 12/08/16 at 09:52; Status DC Magnesium Hydroxide (Milk Of Magnesia Liq) 30 ml HS PO Last administered on 22:21; Start 11/10/16 at 21:00; Status Future hold Famotidine (Pepcid Inj) 20 mg STK-MED ONCE .ROUTE Last administered on 08:51; Start 11/10/16 at 08:51; Stop 11/10/16 at 08:52; Status DC Albuterol Sulfate (Albuterol Neb) 2.5 mg STK-MED ONCE .ROUTE Last administered on 11/10/16 08:55; Start 11/10/16 at 08:53; Stop 11/10/16 at 08:54; Status DC Gentamicin Sulfate (Gentamicin Inj) 240 mg STK-MED ONCE .ROUTE Last administered on 11/10/16 09:48; Start 11/10/16 at 09:02; Stop 11/10/16 at 09:03 ; Status DC Acetaminophen (Ofirmev Inj) 1,000 mg STK-MED ONCE IV ; Start 11/10/16 at 09:13; Stop 11/10/16 at 09:14; Status DC Lactated Ringer's 1,000 ml @ 100 mls/hr Q10H IV Last administered on 00:53; Start 11/10/16 at 13:00; Stop 11/11/16 at 11:56; Status DC Enoxaparin Sodium (Lovenox Inj) 30 mg Q12H SQ Last administered on 12/04/16 00 :03; Start 11/11/16 at 00:00; Stop 12/04/16 at 09:43; Status DC Cefazolin Sodium/ Dextrose 50 ml @ 100 mls/hr Q8H IV Last administered on 11/13 00:05; Start 11/10/16 at 16:00; Stop 11/13/16 at 08:29; Status DC Gentamicin Sulfate/Sodium Chloride 100 ml @ 200 mls/hr Q8H IV Last administered on 11/13/16 10:00; Start 11/10/16 at 18:00; Stop 11/13/16 at 10:29 ; Status DC Acetaminophen/ Hydrocodone Bitart (Sterling 10-325 Mg) 1 tab Q3H PRN PO PAIN 3<10 Last administered on 11/18/16 04:34; Start 11/10/16 at 11:45; Stop 11/18/16 at 16 :37; Status DC Calcium/Vitamin D (Oscal-D 250-125) 250 mg TID PO Last administered on 17:33; Start 11/10/16 at 13:00 Meperidine HCl (*DEMEROL INJ PERIprocedural ONLY) 25 mg STK-MED ONCE .ROUTE Last administered on 11/10/16 12:36; Start 11/10/16 at 12:36; Stop 11/10/16 at 12:37; Status DC Miscellaneous Information ALL NURSING DEPARTME... UNSCH PRN .XX SEE LABEL COMMENTS; Start 11/10/16 at 12:29; Stop 11/11/16 at 12:28; Status DC Midazolam HCl (Versed Inj) 2 mg STK-MED ONCE .ROUTE ; Start 11/10/16 at 12:48; Stop 11/10/16 at 12:49; Status DC Fentanyl Citrate (fentaNYL INJ) 250 mcg STK-MED ONCE .ROUTE ; Start 11/10/16 at 12:48; Stop 11/10/16 at 12:49; Status DC Morphine Sulfate (*morphine INJ PERIprocedure ONLY) 8 mg STK-MED ONCE .ROUTE Last administered on 11/10/16 14:36; Start 11/10/16 at 14:36; Stop 11/10/16 at 14:37; Status DC Bisacodyl (Dulcolax Ec) 10 mg ONCE ONCE PO Last administered on 11/11/16 10: 17; Start 11/11/16 at 07:00; Stop 11/11/16 at 07:04; Status DC Bisacodyl (Dulcolax Supp) 10 mg ONCE ONCE RECTAL Last administered on 10:17; Start 11/11/16 at 07:00; Stop 11/11/16 at 07:04; Status DC Sodium Chloride 250 ml @ 15 mls/hr ONCE ONCE IV Last administered on 11:19; Start 11/11/16 at 11:15; Stop 11/12/16 at 03:54; Status DC Furosemide (Lasix Inj) 20 mg ONCE ONCE IV ; Start 11/11/16 at 11:15; Stop 11/11 at 11:16; Status Cancel Furosemide (Lasix Inj) 20 mg ONCE ONCE IV Last administered on 11/12/16t 11:18 ; Start 11/12/16 at 11:00; Stop 11/12/16 at 11:01; Status DC Albuterol/ Ipratropium (Duoneb Neb) 1 ampule Q4HR NEB PRN NEB wheezing; Start 11/12/16 at 13:15 Lactated Ringer's 1,000 ml @ 30 mls/hr Q24H PRN IV SEE LABEL COMMENTS; Start at 05:00; Stop 11/16/16 at 04:59; Status Cancel Sodium Chloride 500 ml @ 30 mls/hr [id number] PRN IV SEE LABEL COMMENTS; Start at 05:00; Stop 11/16/16 at 04:59; Status DC Metoprolol Tartrate (Lopressor) 25 mg COAT FINISHER PRN PO SEE LABEL COMMENTS; Start 11/13/16 at 05:00; Stop 11/16/16 at 04:59; Status DC Povidone Iodine (Betadine 5% Antisepsis Kit) 1 applic COAT FINISHER PRN EACH NARE SEE LABEL COMMENTS; Start 11/13/16 at 05:00; Stop 11/16/16 at 04:59; Status DC Chlorhexidine Gluconate (Chlorhexidine 2% Cloth) 3 pack COAT FINISHER PRN TOPICAL SEE LABEL COMMENTS; Start 11/13/16 at 05:00; Stop 11/16/16 at 04:59; Status DC Lidocaine HCl (Xylocaine 2% Jelly) 30 applic STK-MED ONCE .ROUTE ; Start at 07:15; Stop 11/13/16 at 07:16; Status DC Mineral Oil (Muri-Lube Oil) 10 ml STK-MED ONCE .ROUTE ; Start 11/13/16 at 07:15 ; Stop 11/13/16 at 07:16; Status DC Gentamicin Sulfate (Gentamicin Inj) 240 mg STK-MED ONCE .ROUTE Last administered on 11/13/16t 08:20; Start 11/13/16 at 07:15; Stop 11/13/16 at 07:16 ; Status DC Albuterol Sulfate (Albuterol Neb) 2.5 mg STK-MED ONCE .ROUTE ; Start 11/13/16 at 07:34; Stop 11/13/16 at 07:35; Status DC Dexamethasone Sodium Phosphate (Decadron Inj) 4 mg STK-MED ONCE .ROUTE ; Start 11/13/16 at 07:36; Stop 11/13/16 at 07:37; Status DC Famotidine (Pepcid Inj) 20 mg STK-MED ONCE .ROUTE ; Start 11/13/16 at 07:36; Stop 11/13/16 at 07:37; Status DC Albuterol/ Ipratropium (Duoneb Neb) 1 ampule STK-MED ONCE .ROUTE Last administered on 11/13/16 07:50; Start 11/13/16 at 07:47; Stop 11/13/16 at 07:48 ; Status DC Lactated Ringer's 1,000 ml @ 100 mls/hr Q10H IV Last administered on 12:14; Start 11/13/16 at 08:42; Stop 11/18/16 at 16:33; Status DC Cefazolin Sodium/ Dextrose 50 ml @ 100 mls/hr Q8H IV Last administered on 04:43; Start 11/13/16 at 12:00; Stop 11/20/16 at 11:59; Status DC Gentamicin Sulfate/Sodium Chloride 100 ml @ 200 mls/hr Q8H IV Last administered on 11/16/16 09:14; Start 11/13/16 at 18:00; Stop 11/16/16 at 17:59 ; Status DC Midazolam HCl (Versed Inj) 2 mg STK-MED ONCE .ROUTE ; Start 11/13/16 at 09:25; Stop 11/13/16 at 09:26; Status DC Fentanyl Citrate (fentaNYL INJ) 250 mcg STK-MED ONCE .ROUTE ; Start 11/13/16 at 09:25; Stop 11/13/16 at 09:26; Status DC Zolpidem Tartrate (Ambien) 5 mg HS PRN PO Insomnia Last administered on 22:24; Start 11/14/16 at 11:00 Trazodone HCl (Desyrel) 100 mg HS PO Last administered on 01/11/17 20:06; Start 11/14/16 at 21:00 Morphine Sulfate (Oramorph Sr) 15 mg Q12HR PO Last administered on 11/18/16 10: 00; Start 11/16/16 at 21:00; Stop 11/18/16 at 16:36; Status DC Morphine Sulfate (Oramorph Sr) 15 mg ONCE ONCE PO Last administered on 12:32; Start 11/16/16 at 10:15; Stop 11/16/16 at 10:24; Status DC Gabapentin (Neurontin) 600 mg TID PO Last administered on 01/11/17 17:33; Start 11/16/16 at 13:00 Sodium Chloride 1,000 ml @ 999 mls/hr BOLUS ONCE IV Last administered on 17:22; Start 11/18/16 at 16:45; Stop 11/18/16 at 17:45; Status DC Morphine Sulfate (Oramorph Sr) 30 mg Q12HR PO Last administered on 11/29/16 09 :24; Start 11/18/16 at 21:00; Stop 11/29/16 at 14:26; Status DC Morphine Sulfate (Morphine Inj) 6 mg Q4H PRN IV PUSH PAIN SCALE 5 TO 10 Last administered on 11/19/16 05:59; Start 11/18/16 at 16:45; Stop 11/20/16 at 00:46; Status DC Morphine Sulfate (Morphine Inj) 3 mg Q3H PRN IV PUSH PAIN SCALE 1 TO 4 Last administered on 11/19/16 16:36; Start 11/18/16 at 16:45; Stop 11/20/16 at 00:46; Status DC Sodium Chloride 1,000 ml @ 125 mls/hr Q8H IV Last administered on 11/19/16 16: 15; Start 11/19/16 at 00:15; Stop 11/19/16 at 19:21; Status DC Sodium Chloride 500 ml @ 500 mls/hr BOLUS ONCE IV Last administered on 00:15; Start 11/19/16 at 00:15; Stop 11/19/16 at 01:14; Status DC Nystatin (Mycostatin Powder) 1 applic Q12HR TOPICAL Last administered on 08:54; Start 11/19/16 at 21:00; Stop 11/28/16 at 13:46; Status DC Acetaminophen/ Hydrocodone Bitart (Sterling 7.5-325 Mg) 1 tab Q4H PRN PO PAIN SCALE 1 TO 4; Start 11/20/16 at 00:45; Stop 11/28/16 at 13:46; Status DC Acetaminophen/ Hydrocodone Bitart (Sterling 10-325 Mg) 1 tab Q4H PRN PO PAIN SCALE 3-5 Last administered on 12/23/16 08:58; Start 11/20/16 at 00:45 Hydromorphone HCl (Dilaudid Pf Inj) 1 mg Q4H PRN IV PUSH BREAKTHROUGH PAIN Last administered on 12/17/16 10:38; Start 11/20/16 at 00:45; Stop 12/18/16 at 10:47; Status DC Propranolol HCl (Inderal) 40 mg Q12HR PO Last administered on 12/08/16 08:01; Start 11/22/16 at 21:00; Stop 12/08/16 at 10:00; Status DC Lactated Ringer's 1,000 ml @ 30 mls/hr Q24H PRN IV SEE LABEL COMMENTS; Start at 02:45; Stop 11/27/16 at 02:44; Status DC Sodium Chloride 500 ml @ 30 mls/hr [id number] PRN IV SEE LABEL COMMENTS; Start 11/24/16 at 02:45; Stop 11/27/16 at 02:44; Status DC Povidone Iodine (Betadine 5% Antisepsis Kit) 1 applic COAT FINISHER PRN EACH NARE SEE LABEL COMMENTS; Start 11/24/16 at 02:45; Stop 11/27/16 at 02:44; Status DC Chlorhexidine Gluconate (Chlorhexidine 2% Cloth) 3 pack COAT FINISHER PRN TOPICAL SEE LABEL COMMENTS; Start 11/24/16 at 02:45; Stop 11/27/16 at 02:44; Status DC Insulin Human Regular (NovoLIN R INJ) See Protocol Table ... [employer] PRN SQ SEE PROTOCOL TABLE; Start 11/24/16 at 02:45; Stop 11/27/16 at 02:44; Status DC Prochlorperazine Edisylate (Compazine Inj) 10 mg Q8H PRN IV PUSH NAUSEA/ VOMITING Last administered on 11/25/16 18:00; Start 11/25/16 at 16:15 Sodium Chloride 500 ml @ 500 mls/hr BOLUS ONCE IV Last administered on 18:06; Start 11/25/16 at 17:00; Stop 11/25/16 at 17:59; Status DC Gentamicin Sulfate (Gentamicin Inj) 240 mg STK-MED ONCE .ROUTE Last administered on 11/28/16 10:42; Start 11/28/16 at 07:18; Stop 11/28/16 at 07:19 ; Status DC Vancomycin HCl (Vancomycin Inj) 1,000 mg STK-MED ONCE .ROUTE Last administered on 12/09/16 15:25; Start 11/28/16 at 07:38; Stop 11/28/16 at 07:39; Status DC Cefazolin Sodium/ Dextrose 50 ml @ As Directed STK-MED ONCE .ROUTE Last administered on 12/09/16 15:20; Start 11/28/16 at 07:38; Stop 11/28/16 at 07:39 ; Status DC Sodium Chloride 250 ml @ As Directed STK-MED ONCE .ROUTE ; Start 11/28/16 at 07 :39; Stop 11/28/16 at 07:40; Status DC Fentanyl Citrate (fentaNYL INJ) 250 mcg STK-MED ONCE .ROUTE ; Start 11/28/16 at 10:15; Stop 11/28/16 at 10:16; Status DC Cefazolin Sodium (Ancef Inj) 1,000 mg STK-MED ONCE .ROUTE Last administered on 11/28/16 10:31; Start 11/28/16 at 10:23; Stop 11/28/16 at 10:24; Status DC Lactated Ringer's 1,000 ml @ 100 mls/hr Q10H IV ; Start 11/28/16 at 10:59; Stop 12/03/16 at 09:16; Status DC Cefazolin Sodium/ Dextrose 50 ml @ 100 mls/hr Q8H IV Last administered on 12/01 06:46; Start 11/28/16 at 15:00; Stop 12/01/16 at 14:59; Status DC Magnesium Hydroxide (Milk Of Magnesia Liq) 30 ml Q12H PRN PO MILD - MODERATE CONSTIPATION Last administered on 12/26/16 10:08; Start 11/28/16 at 11:30 Sennosides (Senokot) 17.2 mg Q12H PRN PO MODERATE - SEVERE CONSTIPATION Last administered on 12/25/16 09:48; Start 11/28/16 at 11:30 Bisacodyl (Dulcolax Supp) 10 mg DAILY PRN RECTAL SEVERE CONSITIPATION Last administered on 12/11/16 12:30; Start 11/28/16 at 11:30 Albuterol Sulfate (*ALBUTEROL NEB PERIprocedure ONLY) 2.5 mg STK-MED ONCE NEB Last administered on 11/28/16 11:38; Start 11/28/16 at 11:38; Stop 11/28/16 at 11:39; Status DC Dexamethasone Sodium Phosphate (Decadron Inj) 4 mg STK-MED ONCE .ROUTE ; Start 11/28/16 at 11:51; Stop 11/28/16 at 11:52; Status DC Dexamethasone Sodium Phosphate (Decadron Inj) 4 mg NOW ONCE IV Last administered on 11/28/16 12:00; Start 11/28/16 at 12:00; Stop 11/28/16 at 12:01 ; Status DC Miscellaneous Information ALL NURSING DEPARTME... UNSCH PRN .XX SEE LABEL COMMENTS; Start 11/28/16 at 11:22; Stop 11/29/16 at 11:21; Status DC Morphine Sulfate (*morphine INJ PERIprocedure ONLY) 8 mg STK-MED ONCE .ROUTE Last administered on 11/28/16 12:01; Start 11/28/16 at 12:01; Stop 11/28/16 at 12:02; Status DC Acetaminophen/ Hydrocodone Bitart (Sterling 10-325 Mg) 1.5 tab Q4H PRN PO pain 6- 10 Last administered on 12/23/16 17:35; Start 11/28/16 at 15:00; Stop 12/23/16 at 18:38; Status DC Nystatin (Mycostatin Cream) 1 applic Q6HR TOPICAL Last administered on 05:00; Start 11/28/16 at 14:00; Stop 12/16/16 at 13:46; Status DC Morphine Sulfate (Oramorph Sr) 30 mg Q8HR PO Last administered on 12/03/16 06: 09; Start 11/29/16 at 22:00; Stop 12/03/16 at 12:16; Status DC Cetirizine HCl (ZyrTEC) 10 mg HS PO Last administered on 12/07/16 20:03; Start 12/01/16 at 21:00; Stop 12/08/16 at 20:59; Status DC Fluticasone Propionate (Flonase Jerzy Spr) 2 spray DAILY EACH NARE Last administered on 12/15/16 08:54; Start 12/01/16 at 11:00; Stop 12/15/16 at 10:59 ; Status DC Folic Acid (Folate) 1 mg DAILY PO Last administered on 01/11/17 07:55; Start 12/03/16 at 09:00 Morphine Sulfate (Oramorph Sr) 30 mg Q8HR PO Last administered on 01/12/17 05: 06; Start 12/03/16 at 14:00 Lactobacillus Acidophilus (Lactinex) 1 tab TID PO Last administered on 08:10; Start 12/04/16 at 09:00; Stop 12/05/16 at 09:26; Status DC Enoxaparin Sodium (Lovenox Inj) 40 mg DAILY SQ Last administered on 01/11/17 07:54; Start 12/05/16 at 09:00 Al Hydrox/Mg Hydrox/Simethicone (Mag-Al Plus Susp Liq) 30 ml ONCE ONCE PO Last administered on 12/04/16 11:55; Start 12/04/16 at 11:45; Stop 12/04/16 at 11:50; Status DC Al Hydrox/Mg Hydrox/Simethicone (Mag-Al Plus Susp Liq) 30 ml Q6HR PRN PO HEARTBURN, INDIGESTION Last administered on 01/06/17 11:29; Start 12/04/16 at 18:00 Sucralfate (Carafate Liq) 1 gm QID PO Last administered on 12/16/16 13:41; Start 12/05/16 at 09:00; Stop 12/16/16 at 13:43; Status DC Lactobacillus Acidophilus (Lactinex) 1 tab BID PO Last administered on 09:36; Start 12/05/16 at 21:00; Stop 12/18/16 at 10:47; Status DC Polyethylene Glycol (Miralax) 17 gm DAILY PRN PO CONSTIPATION; Start 12/08/16 at 10:00; Stop 12/11/16 at 15:18; Status DC Propranolol HCl (Inderal) 20 mg Q12HR PO Last administered on 12/09/16 20:34; Start 12/08/16 at 21:00; Stop 12/10/16 at 07:34; Status DC Lactated Ringer's 1,000 ml @ 30 mls/hr Q24H PRN IV SEE LABEL COMMENTS; Start at 01:30; Stop 12/12/16 at 01:29; Status DC Sodium Chloride 500 ml @ 30 mls/hr [id number] PRN IV SEE LABEL COMMENTS; Start at 01:30; Stop 12/12/16 at 01:29; Status DC Povidone Iodine (Betadine 5% Antisepsis Kit) 1 applic COAT FINISHER PRN EACH NARE SEE LABEL COMMENTS; Start 12/09/16 at 01:30; Stop 12/12/16 at 01:29; Status DC Chlorhexidine Gluconate (Chlorhexidine 2% Cloth) 3 pack COAT FINISHER PRN TOPICAL SEE LABEL COMMENTS; Start 12/09/16 at 01:30; Stop 12/12/16 at 01:29; Status DC Insulin Human Regular (NovoLIN R INJ) See Protocol Table ... COAT FINISHER PRN SQ SEE PROTOCOL TABLE; Start 12/09/16 at 01:30; Stop 12/12/16 at 01:29; Status DC Bupivacaine HCl/ Epinephrine Bitart (Sensorcaine-Epinephrine 0.25% Inj) 50 ml STK-MED ONCE .ROUTE ; Start 12/09/16 at 14:07; Stop 12/09/16 at 14:08; Status DC Mineral Oil (Muri-Lube Oil) 10 ml STK-MED ONCE .ROUTE ; Start 12/09/16 at 14:07 ; Stop 12/09/16 at 14:08; Status DC Gentamicin Sulfate (Gentamicin Inj) 240 mg STK-MED ONCE .ROUTE Last administered on 12/09/16 15:31; Start 12/09/16 at 14:07; Stop 12/09/16 at 14:08 ; Status DC Vancomycin HCl (Vancomycin Inj) 1,000 mg STK-MED ONCE .ROUTE ; Start 12/09/16 at 15:06; Stop 12/09/16 at 15:07; Status DC Cefazolin Sodium/ Dextrose 50 ml @ As Directed STK-MED ONCE .ROUTE ; Start 12/09 at 15:06; Stop 12/09/16 at 15:07; Status DC Lactated Ringer's 1,000 ml @ 100 mls/hr Q10H IV ; Start 12/09/16 at 15:57; Stop 12/16/16 at 13:45; Status DC Cefazolin Sodium/ Dextrose 50 ml @ 100 mls/hr Q8H IV Last administered on 12/16 13:42; Start 12/09/16 at 20:00; Stop 12/16/16 at 19:59; Status DC Gentamicin Sulfate/Sodium Chloride 100 ml @ 200 mls/hr Q8H IV Last administered on 12/12/16 12:25; Start 12/09/16 at 21:00; Stop 12/12/16 at 20:59 ; Status DC Morphine Sulfate (*morphine INJ PERIprocedure ONLY) 8 mg STK-MED ONCE .ROUTE Last administered on 12/09/16 16:32; Start 12/09/16 at 16:32; Stop 12/09/16 at 16:33; Status DC Fentanyl Citrate (fentaNYL INJ) 250 mcg STK-MED ONCE .ROUTE ; Start 12/09/16 at 16:33; Stop 12/09/16 at 16:34; Status DC Miscellaneous Information ALL NURSING DEPARTME... UNSCH PRN .XX SEE LABEL COMMENTS; Start 12/09/16 at 16:20; Stop 12/10/16 at 16:19; Status DC Morphine Sulfate (*morphine INJ PERIprocedure ONLY) 8 mg STK-MED ONCE .ROUTE Last administered on 12/09/16 17:01; Start 12/09/16 at 17:01; Stop 12/09/16 at 17:02; Status DC Propranolol HCl (Inderal) 10 mg Q12HR PO Last administered on 12/13/16 09:42; Start 12/10/16 at 09:00; Stop 12/13/16 at 10:32; Status DC Menthol/Methyl Salicylate (Aleks Daniels Oint) 1 applic UNSCH PRN TOPICAL arthritic pain Last administered on 12/12/16 17:51; Start 12/11/16 at 15:30 Propranolol HCl (Inderal) 20 mg Q12HR PO ; Start 12/13/16 at 21:00; Stop at 21:00; Status DC Propranolol HCl (Inderal) 10 mg Q12HR PO Last administered on 01/11/17 20:05; Start 12/13/16 at 21:00 Bacitracin (Baciguent Oint) 1 applic DAILY PRN TOPICAL WOUND VAC DRESSING CHANGE; Start 12/15/16 at 12:30 Sucralfate (Carafate Liq) 1 gm BID PO Last administered on 12/30/16 08:30; Start 12/16/16 at 21:00; Stop 12/30/16 at 20:59; Status DC Lidocaine HCl (Lidoderm 5% Patch.12 Hr) 1 patch DAILY T-DERMAL Last administered on 12/18/16 11:33; Start 12/18/16 at 10:00; Stop 12/19/16 at 19:35 ; Status DC Miscellaneous Information 1 Q24H T-DERMAL ; Start 12/18/16 at 21:00; Stop at 19:35; Status DC Lactobacillus Acidophilus (Lactinex) 1 tab TID PO Last administered on 17:33; Start 12/18/16 at 13:00 Lidocaine HCl (Lidoderm 5% Patch.12 Hr) 1 patch HS T-DERMAL Last administered on 01/03/17 20:55; Start 12/19/16 at 21:00 Miscellaneous Information 1 Q24H T-DERMAL Last administered on 12/24/16 09:00; Start 12/20/16 at 09:00 Propofol (Diprivan 200 Mg/20 ml Inj) 200 mg STK-MED ONCE IV ; Start 11/07/16 at 12:00; Stop 12/23/16 at 10:36; Status DC Ephedrine Sulfate (ePHEDrine/NS 25 MG/5 ML SYR) 50 mg STK-MED ONCE IV ; Start at 12:00; Stop 12/23/16 at 10:36; Status DC Neostigmine Methylsulfate (Prostigmin Inj) 3 mg STK-MED ONCE IV ; Start at 12:00; Stop 12/23/16 at 10:36; Status DC Phenylephrine HCl (Neosynephrine/ NS 1000 Mcg/10ml Syr) 1,000 mcg STK-MED ONCE IV ; Start 11/07/16 at 12:00; Stop 12/23/16 at 10:37; Status DC Ondansetron HCl (Zofran Inj) 4 mg STK-MED ONCE IV PUSH ; Start 11/07/16 at 12:00 ; Stop 12/23/16 at 10:37; Status DC Lactated Ringer's 1,000 ml @ As Directed STK-MED ONCE IV ; Start 11/07/16 at 12 :00; Stop 12/23/16 at 10:37; Status DC Parenteral Electrolytes 1,000 ml @ As Directed STK-MED ONCE IV ; Start at 12:00; Stop 12/23/16 at 10:37; Status DC Propofol (Diprivan 200 Mg/20 ml Inj) 400 mg STK-MED ONCE IV ; Start 11/10/16 at 12:00; Stop 12/23/16 at 12:04; Status DC Phenylephrine HCl (Neosynephrine/ NS 1000 Mcg/10ml Syr) 2,000 mcg STK-MED ONCE IV ; Start 11/10/16 at 12:00; Stop 12/23/16 at 12:04; Status DC Ondansetron HCl (Zofran Inj) 4 mg STK-MED ONCE IV PUSH ; Start 11/10/16 at 12:00 ; Stop 12/23/16 at 12:04; Status DC Lactated Ringer's 1,000 ml @ As Directed STK-MED ONCE IV ; Start 11/10/16 at 12 :00; Stop 12/23/16 at 12:04; Status DC Propofol (Diprivan 200 Mg/20 ml Inj) 200 mg STK-MED ONCE IV ; Start 11/13/16 at 12:00; Stop 12/23/16 at 12:38; Status DC Ephedrine Sulfate (ePHEDrine/NS 25 MG/5 ML SYR) 25 mg STK-MED ONCE IV ; Start at 12:00; Stop 12/23/16 at 12:38; Status DC Phenylephrine HCl (Neosynephrine/ NS 1000 Mcg/10ml Syr) 1,000 mcg STK-MED ONCE IV ; Start 11/13/16 at 12:00; Stop 12/23/16 at 12:38; Status DC Ondansetron HCl (Zofran Inj) 4 mg STK-MED ONCE IV PUSH ; Start 11/13/16 at 12:00 ; Stop 12/23/16 at 12:38; Status DC Lactated Ringer's 1,000 ml @ As Directed STK-MED ONCE IV ; Start 11/13/16 at 12 :00; Stop 12/23/16 at 12:38; Status DC Neostigmine Methylsulfate (Prostigmin Inj) 3 mg STK-MED ONCE IV ; Start at 12:00; Stop 12/23/16 at 12:38; Status DC Propofol (Diprivan 200 Mg/20 ml Inj) 200 mg STK-MED ONCE IV ; Start 11/28/16 at 12:00; Stop 12/23/16 at 12:50; Status DC Ephedrine Sulfate (ePHEDrine/NS 25 MG/5 ML SYR) 25 mg STK-MED ONCE IV ; Start at 12:00; Stop 12/23/16 at 12:50; Status DC Ondansetron HCl (Zofran Inj) 4 mg STK-MED ONCE IV PUSH ; Start 11/28/16 at 12:00 ; Stop 12/23/16 at 12:50; Status DC Propofol (Diprivan 200 Mg/20 ml Inj) 200 mg STK-MED ONCE IV ; Start 12/09/16 at 12:00; Stop 12/23/16 at 14:38; Status DC Ephedrine Sulfate (ePHEDrine/NS 25 MG/5 ML SYR) 50 mg STK-MED ONCE IV ; Start at 12:00; Stop 12/23/16 at 14:38; Status DC Ondansetron HCl (Zofran Inj) 4 mg STK-MED ONCE IV PUSH ; Start 12/09/16 at 12:00 ; Stop 12/23/16 at 14:38; Status DC Acetaminophen/ Hydrocodone Bitart (Sterling 10-325 Mg) 2 tab Q4H PRN PO pain 6-10 Last administered on 01/12/17t 05:05; Start 12/23/16 at 18:45 Vancomycin HCl 5000 mg/Sodium Chloride 3,000 ml @ 10 mls/hr Q24H PRN IRRIGATION DRESSING CHANGE Last administered on 01/08/17 01:36; Start 12/25/16 at 08:00 Diphenhydramine HCl (Benadryl) 12.5 mg Q4H PRN PO itching Last administered on 12/28/16 07:54; Start 12/25/16 at 16:45; Stop 12/28/16 at 13:48; Status DC Ferrous Sulfate (Ferrous Sulfate) 325 mg BID@12,17 PO Last administered on 01/11 17:33; Start 12/26/16 at 12:00 Ascorbic Acid (Vitamin C) 500 mg BID PO Last administered on 01/11/17 20:05; Start 12/26/16 at 09:00 Pharmacy Profile Note 0 ml @ 0 mls/hr UNSCH OTHER ; Start 12/26/16 at 14:45 Vancomycin HCl 1500 mg/Sodium Chloride 515 ml @ 257.5 mls/ hr Q12H IV Last administered on 12/26/16 20:17; Start 12/26/16 at 17:00; Stop 12/27/16 at 04:54; Status DC Miscellaneous Information SPECIFIC LAB TO BE LEANNA... ONCE ONCE .XX ; Start 12/28 at 04:45; Stop 12/28/16 at 04:46; Status Cancel Vancomycin HCl 1500 mg/Sodium Chloride 515 ml @ 257.5 mls/ hr Q12H IV Last administered on 12/29/16 20:50; Start 12/27/16 at 08:00; Stop 12/29/16 at 20:35 ; Status DC Miscellaneous Information SPECIFIC LAB TO BE LEANNA... ONCE ONCE .XX ; Start 12/28 at 07:45; Stop 12/28/16 at 07:46; Status DC Miscellaneous Information SPECIFIC LAB TO BE LEANNA... ONCE ONCE .XX Last administered on 12/29/16 20:45; Start 12/29/16 at 20:45; Stop 12/29/16 at 20:46 ; Status DC Diphenhydramine HCl (Benadryl) 50 mg Q4H PRN PO itching Last administered on 20:06; Start 12/28/16 at 16:45 Vancomycin HCl 1500 mg/Sodium Chloride 515 ml @ 257.5 mls/ hr Q12H IV Last administered on 01/03/17 08:51; Start 12/29/16 at 21:00; Stop 01/03/17 at 22:00 ; Status DC Miscellaneous Information SPECIFIC LAB TO BE DRAWN:VANCO TROUGH DATE TO BE DR... ONCE ONCE .XX Last administered on 12/31/16 08:45; Start 12/31/16 at 08 :45; Stop 12/31/16 at 08:46; Status DC Miscellaneous Information SPECIFIC LAB TO BE LEANNA... ONCE ONCE .XX ; Start 01/03 at 08:45; Stop 01/03/17 at 08:46; Status DC Fluticasone Propionate (Flonase Jerzy Spr) 1 spray BID NASAL Last administered on 01/11/17 07:57; Start 01/02/17 at 21:00 Miscellaneous Information SPECIFIC LAB TO BE DRAWN:VANCOMY... ONCE ONCE .XX Last administered on 01/03/17 20:45; Start 01/03/17 at 20:45; Stop 01/03/17 at 20:46; Status DC Vancomycin HCl 1500 mg/Sodium Chloride 515 ml @ 257.5 mls/ hr Q12H IV Last administered on 01/11/17 21:36; Start 01/03/17 at 22:00 Miscellaneous Information SPECIFIC LAB TO BE LEANNA... ONCE ONCE .XX ; Start 01/04 at 21:45; Stop 01/04/17 at 21:46; Status DC Miscellaneous Information SPECIFIC LAB TO BE LEANNA... ONCE ONCE .XX ; Start 01/05 at 21:45; Stop 01/05/17 at 21:46; Status DC Calcium Carbonate (Tums Chew) 500 mg Q12HR CHEW Last administered on 01/11/17 20:06; Start 01/05/17 at 11:30 Cefazolin Sodium/ Dextrose 50 ml @ As Directed STK-MED ONCE .ROUTE Last administered on 01/09/17 13:01; Start 01/09/17 at 11:31; Stop 01/09/17 at 11:32 ; Status DC Lidocaine HCl (Xylocaine 2% Jelly) 30 applic STK-MED ONCE .ROUTE Last administered on 01/09/17 13:08; Start 01/09/17 at 11:31; Stop 01/09/17 at 11:32 ; Status DC Mineral Oil (Muri-Lube Oil) 10 ml STK-MED ONCE .ROUTE Last administered on 01/09 13:08; Start 01/09/17 at 11:31; Stop 01/09/17 at 11:32; Status DC Gentamicin Sulfate (Gentamicin Inj) 240 mg STK-MED ONCE .ROUTE Last administered on 01/09/17 13:08; Start 01/09/17 at 11:31; Stop 01/09/17 at 11:32 ; Status DC Lactated Ringer's 1,000 ml @ 100 mls/hr Q10H IV Last administered on 14:15; Start 01/09/17 at 13:34 Morphine Sulfate (*morphine INJ PERIprocedure ONLY) 8 mg STK-MED ONCE .ROUTE Last administered on 01/09/17 14:10; Start 01/09/17 at 14:10; Stop 01/09/17 at 14:11; Status DC Miscellaneous Information ALL NURSING DEPARTME... UNSCH PRN .XX SEE LABEL COMMENTS; Start 01/09/17 at 13:52; Stop 01/10/17 at 13:51; Status DC Miscellaneous Information SPECIFIC LAB TO BE LEANNA... ONCE ONCE .XX Last administered on 01/11/17 09:45; Start 01/11/17 at 09:45; Stop 01/11/17 at 09:46 ; Status DC A/P Assessment and Plan A/P Bilateral open tibia-fibula fractures Left tibial plateau fracture - Open fractures have been surgically repaired, right side has external fixation - s/p Removal of external fixation right lower extremity, irrigation debridement of left leg, split-thickness skin graft left leg, application wound VAC dressing on 01/09 - left tibial plateau fracture treated nonoperatively - continue with pain control. -management per ortho MRSA - wound culture 12/23 positive for MRSA -on Vanco- evaluated by ID Acute blood loss anemia JAMAR - Related to trauma vs post op blood loss - Status post transfusion of 2 units of packed red blood cells in 11/12/16. - on iron supplementation daily. - hemoglobin stable - monitor CBC as indicated Coronary artery disease with h/o previous CABG - Appears stable. Patient is asymptomatic. - Continue propranolol and statin - ASA 81mg daily - Clonidine PRN Hypertension - controlled - MARGIE inhibitor held due to hypotension. Diabetes mellitus type 2 - blood sugars well controlled - accu checks discontinued Alcohol abuse Transaminitis, resolved - AST and ALT now within normal range. - Continue with daily thiamine and folic acid - Alcohol cessation recommended Tobacco abuse - Cessation recommended. Chronic essential tremor - Continue Propranolol Allergic rhinitis - Flonase Indigestion -Patient on Protonix and Maalox. DVT prophylaxis with Lovenox Blaine Corrales MD Jan 12, 2017 09:10
[2017-01-12] MEDS: LACTATED RINGER'S 1000 ML INJ 1,000 ML IV SCH ×2 (11:34→21:00)
[2017-01-12 12:00] VITALS: BP 108/60; PULSE 61; RESP 16; TEMP 97.3; O2SAT 92
[2017-01-12] MEDS: FERROUS SULFATE 325 MG (65 MG ELEMENTAL IRON) TAB PO SCH ×2 (12:43→18:11)
[2017-01-12 16:00] VITALS: BP 110/65; PULSE 65; RESP 18; TEMP 97.1; O2SAT 98
[2017-01-12 20:36] VITALS: BP 130/81; PULSE 69; RESP 18; TEMP 96.9; O2SAT 96
[2017-01-12] MEDS: PRAVASTATIN SOD 80 MG TAB PO SCH (20:59)
[2017-01-12] MEDS: traZODone HCL 100 MG TAB PO SCH (20:59)
[2017-01-12] MEDS: MAGNESIUM HYDROXIDE SUSP 30 ML CUP PO SCH (21:00)
[2017-01-12] MEDS: LIDOCAINE HCL 5% PATCH T-DERMAL SCH (21:00)
[2017-01-13] MEDS: ACETAMINOPHEN/HYDROcodone 325 MG/10 MG TAB PO PRN ×4 (02:06→17:46)
[2017-01-13] MEDS: LACTATED RINGER'S 1000 ML INJ 1,000 ML IV SCH ×2 (02:44→17:34)
[2017-01-13] MEDS: MORPHINE SULFATE 30 MG CONTROLLED RELEASE TAB PO SCH ×3 (05:09→22:19)
[2017-01-13 08:00] VITALS: BP 119/71; PULSE 58; RESP 18; TEMP 97.9; O2SAT 98
[2017-01-13] MEDS: NEOMYCIN/POLYMYXIN/BACITRACIN OINT 15 GM TUBE TOPICAL SCH (09:00)
[2017-01-13] MEDS: REMOVE OLD LIDOCAINE PATCH T-DERMAL SCH (09:00)
[2017-01-13] MEDS: VANCOMYCIN 1,500 MG/NS 500 ML IV SCH ×4 (09:29→22:18)
[2017-01-13] MEDS: DOCUSATE SODIUM 50 MG/SENNA 8.6 MG TAB PO SCH ×2 (09:30→21:00)
[2017-01-13] MEDS: PANTOPRAZOLE SOD 40 MG DELAYED RELEASE TAB PO SCH (09:30)
[2017-01-13] MEDS: FOLIC ACID 1 MG TAB PO SCH (09:30)
[2017-01-13] MEDS: THIAMINE HCL 100 MG TAB PO SCH (09:30)
[2017-01-13] MEDS: ASCORBIC ACID 500 MG TAB PO SCH ×2 (09:30→22:19)
[2017-01-13] MEDS: diphenhydrAMINE HCL 50 MG CAP PO PRN (09:30)
[2017-01-13] MEDS: CALCIUM/VITAMIN D 250 MG/125 U TAB PO SCH ×3 (09:30→17:45)
[2017-01-13] MEDS: GABAPENTIN 300 MG CAP PO SCH ×3 (09:30→17:45)
[2017-01-13] MEDS: LACTOBACILLUS ACIDOPHILUS TAB PO SCH ×3 (09:30→17:45)
[2017-01-13] MEDS: PROPRANOLOL HCL 10 MG TAB PO SCH ×2 (09:30→22:20)
[2017-01-13] MEDS: ASPIRIN 81 MG CHEW TAB CHEW SCH (09:30)
[2017-01-13] MEDS: ENOXAPARIN SODIUM 40 MG/0.4 ML SYRINGE SQ SCH (09:31)
[2017-01-13] MEDS: CALCIUM CARBONATE 500 MG CHEWABLE TAB CHEW SCH ×2 (09:31→22:19)
[2017-01-13] MEDS: FLUTICASONE PROPIONATE 50 MCG/ACT 16 GM NASAL SPRAY NASAL SCH ×2 (09:32→21:00)
[2017-01-13] MEDS: SODIUM CHLORIDE 0.9% FLUSH 10 ML FLUSH IV FLUSH SCH ×2 (09:34→22:19)
--- NOTE | 2017-01-13 10:07 | HHI.PR ---
Subjective Remarks in no distress. pain is controlled. no new complaints. no fever. Objective Vitals Vital Signs Date Time Temp Pulse Resp B/P (MAP) Pulse Ox O2 Delivery O2 Flow Rate FiO2 01/13/17 08:00 97.9 58 18 119/71 (87) 98 01/12/17 20:36 96.9 69 18 130/81 (97) 96 01/12/17 16:00 97.1 65 18 110/65 (80) 98 01/12/17 12:00 97.3 61 16 108/60 (76) 92 I/O 01/12/17 01/12/17 01/12/17 01/13/17 01/13/17 01/13/17 07:00 15:00 23:00 07:00 15:00 23:00 Intake Total 480 ml 360 ml 720 ml Output Total 450 ml 700 ml 1100 ml Balance 480 ml -450 ml -340 ml -380 ml Intake Oral 480 ml 360 ml 720 ml Output Urine Total 450 ml 700 ml 1100 ml Drainage Total 0 ml 0 ml # Voids 2 1 # Bowel Movements 0 0 1 Result Diagram: 01/10/17 0417 01/13/17 0527 Imaging Last Impressions Ankle X-Ray 01/09/17 0000 Signed Impressions: Service Date/Time: Monday, January 09, 2017 12:59 - CONCLUSION: Fluoroscopic images during placement of screws along the distal tibia and single long screw along the distal fibula. Fractures are again seen.. Jac Gonzales MD Tibia/Fibula X-Ray 01/01/17 0000 Signed Impressions: Service Date/Time: December 09:33 - CONCLUSION: There are no complications. Paul Fuentes MD Knee X-Ray 01/01/17 0000 Signed Impressions: Service Date/Time: December 09:37 - CONCLUSION: Lateral tibial plateau fracture without involvement of the articulating surface. Paul Fuentes MD Foot X-Ray 12/27/16 0000 Signed Impressions: Service Date/Time: Tuesday, December 27, 2016 16:50 - CONCLUSION: Distal tibia and fibula fractures with internal fixation hardware. Samir Massey MD Gall Bladder Ultrasound 12/05/16 0000 Signed Impressions: Service Date/Time: Monday, December 05, 2016 08:38 - CONCLUSION: Unremarkable exam. Gallbladder is within normal limits with no evidence of cholelithiasis. Ronald Rao MD Abdomen X-Ray 12/04/16 0000 Signed Impressions: Service Date/Time: November 10:42 - CONCLUSION: Unremarkable bowel gas pattern. Ronald Rao MD Chest X-Ray 11/20/16 0000 Signed Impressions: Service Date/Time: November 17:08 - CONCLUSION: 1. No acute abnormality or significant interval change. Sukhi Stevens MD Pelvis X-Ray 11/07/16 1355 Signed Impressions: Service Date/Time: Monday, November 07, 2016 13:34 - CONCLUSION: No acute disease. Behzad Finch Jr., MD Objective Remarks GENERAL: This is a well-nourished, well-developed patient, in no apparent distress. CARDIOVASCULAR: Regular rate and regular rhythm without murmurs, gallops, or rubs. RESPIRATORY: Clear to auscultation. Breath sounds equal bilaterally. No wheezes , rales, or rhonchi. GASTROINTESTINAL: Abdomen soft, non-tender, nondistended. Normal, active bowel sounds MUSCULOSKELETAL: both legs covered with clean dressing. NEURO: Alert & Oriented x4 to person, place, time, situation. Moves all ext x4 Procedures 1.s/p I&D with ex fix application bilateral tibias s/p wound vac application left tibia 2.With the assistance of RN, under sterile technique the avulsed skin of the right middle finger was clipped. No bleeding noted. Patient gave consent 3.Open reduction internal fixation of right distal tibia and fibula fractures Nonoperative treatment left tibial plateau fracture Irrigation and debridement of left tibia shaft fracture, removal external fixation, soleus muscle rotational flap, intramedullary nail fixation left tibia , application of wound VAC dressing 4.11/13 Irrigation and debridement of left tibia, application wound VAC dressing 5. 8 Irrigation and debridement of left open tibia fracture with application of wound VAC dressing 6. 8 wound vac change at the bedside 7. 8 wound vac change at the bedside 8. 12/08 wound vac change at the bedside 9. 12/09 I&D left tibia, application of wound VAC dressing and application of AlloMax allograft dermal matrix 10. 01/09 Removal of external fixation right lower extremity, irrigation debridement of left leg, split-thickness skin graft left leg, application wound VAC dressing Medications and IVs Current Medications Cefazolin Sodium/ Dextrose 50 ml @ As Directed STK-MED ONCE .ROUTE Last administered on 11/13/16 08:09; Start 11/07/16 at 13:58; Stop 11/07/16 at 13:59 ; Status DC Diphtheria/ Tetanus/Acell Pertussis (Boostrix Inj) 0.5 ml STK-MED ONCE IM ; Start 11/07/16 at 13:58; Stop 11/07/16 at 13:59; Status DC Morphine Sulfate (Morphine Inj) 8 mg STK-MED ONCE .ROUTE ; Start 11/07/16 at 14: 01; Stop 11/07/16 at 14:02; Status DC Hydromorphone HCl (Dilaudid Pf Inj) 1 mg STK-MED ONCE .ROUTE Last administered on 11/07/16 19:15; Start 11/07/16 at 14:05; Stop 11/07/16 at 14:06; Status DC Lactated Ringer's 1,000 ml @ 100 mls/hr Q10H IV ; Start 11/07/16 at 14:22; Stop 11/07/16 at 19:02; Status DC Sodium Chloride (NS Flush) 2 ml UNSCH PRN IV FLUSH FLUSH AFTER USING IV ACCESS Last administered on 12/11/16 11:31; Start 11/07/16 at 14:30 Sodium Chloride (NS Flush) 2 ml BID IV FLUSH Last administered on 01/13/17 09: 34; Start 11/07/16 at 21:00 Ondansetron HCl (Zofran Inj) 4 mg Q6H PRN IV NAUSEA OR VOMITING Last administered on 12/04/16 06:13; Start 11/07/16 at 14:30 Pantoprazole Sodium (Protonix Inj) 40 mg Q24H IV Last administered on 20:00; Start 11/07/16 at 17:00; Stop 11/08/16 at 08:09; Status DC Docusate Sodium (Colace) 100 mg BID PO ; Start 11/07/16 at 21:00; Stop 11/08/16 at 13:04; Status DC Cefazolin Sodium 1000 mg/Sodium Chloride 100 ml @ 200 mls/hr Q8H IV ; Start at 22:00; Stop 11/07/16 at 22:00; Status DC Miscellaneous Information (Post-op Orders (for Pharmacy)) STAT ONCE XX ; Start 11/07/16 at 14:30; Stop 11/07/16 at 15:39; Status DC Oxycodone/ Acetaminophen (Percocet 10-325 Mg) 1 tab Q4H PRN PO 3-5; Start 11/07 at 14:30; Stop 11/07/16 at 19:03; Status DC Hydromorphone HCl (Dilaudid Pf Inj) 1 mg Q2H PRN IV Pain 6-10; Start 11/07/16 at 14:30; Stop 11/07/16 at 19:11; Status DC Naloxone HCl (Narcan Inj) 0.4 mg UNSCH PRN IV SEE LABEL COMMENTS; Start at 14:30 Gentamicin Sulfate (Gentamicin Inj) 80 mg Q8H IM ; Start 11/07/16 at 14:30; Stop 11/07/16 at 15:37; Status DC Hydromorphone HCl (Dilaudid Pf Inj) 0.5 mg KILN FIRER DOSING PRN IV PUSH pain; Start 11/07/16 at 14:45; Stop 11/07/16 at 19:11; Status DC Gentamicin Sulfate/Sodium Chloride 100 ml @ 200 mls/hr Q8H IV ; Start 11/07/16 at 17:00; Status Cancel Miscellaneous Information (Post-op Orders (for Pharmacy)) UNSCH X1 XX ; Start 11/07/16 at 15:45; Stop 11/08/16 at 06:00; Status DC Cefazolin Sodium (Ancef Inj) 1,000 mg STK-MED ONCE .ROUTE Last administered on 11/07/16 16:26; Start 11/07/16 at 15:48; Stop 11/07/16 at 15:49; Status DC Gentamicin Sulfate (Gentamicin Inj) 80 mg STK-MED ONCE .ROUTE Last administered on 11/07/16 16:26; Start 11/07/16 at 15:49; Stop 11/07/16 at 15:50 ; Status DC Acetaminophen (Ofirmev Inj) 1,000 mg STK-MED ONCE IV ; Start 11/07/16 at 15:56; Stop 11/07/16 at 15:57; Status DC Midazolam HCl (Versed Inj) 2 mg STK-MED ONCE .ROUTE ; Start 11/07/16 at 15:56; Stop 11/07/16 at 15:57; Status DC Famotidine (Pepcid Inj) 20 mg STK-MED ONCE .ROUTE ; Start 11/07/16 at 15:56; Stop 11/07/16 at 15:57; Status DC Gentamicin Sulfate (Gentamicin Inj) 240 mg STK-MED ONCE IRRIGATION Last administered on 11/07/16 16:26; Start 11/07/16 at 16:26; Stop 11/07/16 at 16:42 ; Status DC Fentanyl Citrate (fentaNYL INJ) 250 mcg STK-MED ONCE .ROUTE ; Start 11/07/16 at 17:03; Stop 11/07/16 at 17:04; Status DC Gentamicin Sulfate (Gentamicin Inj) 240 mg STK-MED ONCE .ROUTE Last administered on 11/07/16 16:26; Start 11/07/16 at 17:10; Stop 11/07/16 at 17:11 ; Status DC Lactated Ringer's 1,000 ml @ 100 mls/hr Q10H IV Last administered on 07:51; Start 11/07/16 at 18:00; Stop 11/08/16 at 12:46; Status DC Enoxaparin Sodium (Lovenox Inj) 30 mg Q12H SQ ; Start 11/08/16 at 17:00; Stop at 11:48; Status DC Cefazolin Sodium/ Dextrose 50 ml @ 100 mls/hr Q8H IV Last administered on 11/10 08:16; Start 11/08/16 at 00:00; Stop 11/10/16 at 12:47; Status DC Gentamicin Sulfate/Sodium Chloride 100 ml @ 200 mls/hr Q8H IV Last administered on 11/10/16 16:30; Start 11/08/16 at 00:00; Stop 11/10/16 at 16:29 ; Status DC Acetaminophen/ Hydrocodone Bitart (Richton 10-325 Mg) 1 tab Q3H PRN PO PAIN 3<10 Last administered on 11/08/16 10:36; Start 11/07/16 at 18:00; Stop 11/08/16 at 13:04; Status DC Morphine Sulfate (Morphine Inj) 4 mg Q3H PRN IV PUSH Break thru Pain Last administered on 11/08/16 07:50; Start 11/07/16 at 18:00; Stop 11/08/16 at 12:21 ; Status DC Ketorolac Tromethamine (Toradol Inj) 30 mg Q12H IVP Last administered on 05:32; Start 11/07/16 at 18:00; Stop 11/10/16 at 06:01; Status DC Bacitracin (Baciguent Oint) 15 applic STK-MED ONCE .ROUTE Last administered on 11/07/16 18:09; Start 11/07/16 at 18:09; Stop 11/07/16 at 18:10; Status DC Miscellaneous Information ALL NURSING DEPARTME... UNSCH PRN .XX SEE LABEL COMMENTS; Start 11/07/16 at 18:33; Stop 11/08/16 at 18:32; Status DC Acetaminophen (Tylenol) 650 mg Q4H PRN PO Temp > 100.4, pain 1-2; Start at 08:15 Magnesium Hydroxide (Milk Of Magnesia Liq) 30 ml DAILY PRN PO for Severe Constipation Last administered on 11/09/16 20:15; Start 11/08/16 at 08:15; Stop 11/10/16 at 09:00; Status DC Calcium Carbonate (Tums Chew) 1,000 mg TID PRN CHEW DYSPEPSIA Last administered on 01/09/17 22:36; Start 11/08/16 at 08:15 Dextrose (D50w (Vial) Inj) 50 ml UNSCH PRN IV HYPOGLYCEMIA-SEE COMMENTS; Start 11/08/16 at 08:15; Stop 12/03/16 at 09:16; Status DC Glucagon (Glucagon Inj) 1 mg UNSCH PRN OTHER HYPOGLYCEMIA-SEE COMMENTS; Start 11/08/16 at 08:15; Stop 12/03/16 at 09:16; Status DC Insulin Aspart (NovoLOG SUPPLEMENTAL SCALE) 1 ACHS SLIDING SCALE SQ Last administered on 12/01/16 13:21; Start 11/08/16 at 11:00; Stop 12/03/16 at 09:16 ; Status DC Enalaprilat (Vasotec Inj) 1.25 mg Q6H PRN IV SBP> OR = 180, DBP> OR = 100; Start 11/08/16 at 08:15 Clonidine (Catapres) 0.1 mg Q6H PRN PO SBP> OR = 180, DBP> OR = 100; Start at 08:15 Gabapentin (Neurontin) 400 mg TID PO Last administered on 11/16/16 09:10; Start 11/08/16 at 13:00; Stop 11/16/16 at 11:46; Status DC Morphine Sulfate (Morphine Inj) 6 mg Q3H PRN IV PUSH PAIN 6-10 Last administered on 11/17/16 15:09; Start 11/08/16 at 15:00; Stop 11/18/16 at 16:37 ; Status DC Aspirin (Aspirin Chew) 81 mg DAILY CHEW Last administered on 01/13/17 09:30; Start 11/08/16 at 12:45 Ferrous Sulfate (Ferrous Sulfate) 325 mg DAILY PO Last administered on 08:11; Start 11/08/16 at 12:45; Stop 12/05/16 at 09:25; Status DC Lisinopril (Prinivil) 25 mg DAILY PO Last administered on 11/18/16 09:59; Start 11/08/16 at 12:45; Status Future Hold Nitroglycerin (Nitrostat Sl) 0.4 mg Q6HR PRN SL CHEST PAIN; Start 11/08/16 at 12:45 Pantoprazole Sodium (Protonix) 40 mg DAILY PO Last administered on 01/13/17 09 :30; Start 11/08/16 at 12:45 Pravastatin Sodium (Pravachol) 80 mg HS PO Last administered on 01/12/17 20:59 ; Start 11/08/16 at 21:00 Propranolol HCl (Inderal) 80 mg Q12HR PO Last administered on 11/18/16 10:01; Start 11/08/16 at 21:00; Stop 11/22/16 at 12:49; Status DC Miscellaneous (Pill Splitter) 1 ea UNSCH PRN OTHER SEE LABEL COMMENTS; Start at 12:45 Senna/Docusate Sodium (Elke-Colace) 1 tab BID PO Last administered on 09:30; Start 11/08/16 at 12:45; Status Future hold Lactulose (Lactulose Liq) 30 ml DAILY PRN PO No BM in 2 days; Start 11/08/16 at 12:45; Stop 11/10/16 at 07:47; Status DC Acetaminophen/ Hydrocodone Bitart (Richton 10-325 Mg) 1.5 tab Q3H PRN PO PAIN 3- 10 Last administered on 11/09/16 23:46; Start 11/08/16 at 15:00; Stop 11/10/16 at 12:45; Status DC Folic Acid (Folate) 1 mg DAILY PO Last administered on 11/12/16 09:14; Start 11/09/16 at 09:00; Stop 11/14/16 at 08:59; Status DC Thiamine HCl (Vitamin B1) 100 mg DAILY PO Last administered on 01/13/17 09:30 ; Start 11/09/16 at 09:00 Multivitamins/ Minerals Therapeutic (Theragran M Tab) 1 tab DAILY PO Last administered on 11/12/16 09:13; Start 11/09/16 at 09:00; Stop 11/14/16 at 08:59 ; Status DC Flumazenil (Romazicon Inj) 0.2 mg Q1M PRN IV PUSH SEE LABEL COMMENTS; Start at 13:00 Lorazepam (Ativan) 1 mg Q4H PRN PO CIWA 8 - 10; Start 11/08/16 at 13:00; Stop 11/26/16 at 16:05; Status DC Lorazepam (Ativan Inj) 1 mg Q4H PRN IV PUSH CIWA 8 - 10; Start 11/08/16 at 13: 00; Stop 11/26/16 at 16:05; Status DC Lorazepam (Ativan) 2 mg Q2H PRN PO CIWA 11-14; Start 11/08/16 at 13:00; Stop at 16:05; Status DC Lorazepam (Ativan Inj) 2 mg Q2H PRN IV PUSH CIWA 11-14; Start 11/08/16 at 13:00 ; Stop 11/26/16 at 16:05; Status DC Lorazepam (Ativan Inj) 2 mg Q1H PRN IV PUSH CIWA 15-20; Start 11/08/16 at 13:00 ; Stop 11/26/16 at 16:05; Status DC Lorazepam (Ativan Inj) 2 mg Q15M PRN IV PUSH CIWA > 20; Start 11/08/16 at 13:00 ; Stop 11/26/16 at 16:05; Status DC Haloperidol Lactate (Haldol Inj) 2 mg Q15M PRN IM SEE LABEL COMMENTS; Start at 13:00 Lactated Ringer's 1,000 ml @ 30 mls/hr Q24H PRN IV SEE LABEL COMMENTS; Start at 00:45; Stop 11/09/16 at 12:05; Status DC Sodium Chloride 500 ml @ 30 mls/hr [id number] PRN IV SEE LABEL COMMENTS; Start at 00:45; Stop 11/09/16 at 12:05; Status DC Metoprolol Tartrate (Lopressor) 25 mg AUTOMOBILE BRAKES BONDER PRN PO SEE LABEL COMMENTS; Start 11/09/16 at 00:45; Stop 11/12/16 at 00:44; Status DC Povidone Iodine (Betadine 5% Antisepsis Kit) 1 applic AUTOMOBILE BRAKES BONDER PRN EACH NARE SEE LABEL COMMENTS; Start 11/09/16 at 00:45; Stop 11/12/16 at 00:44; Status DC Chlorhexidine Gluconate (Chlorhexidine 2% Cloth) 3 pack AUTOMOBILE BRAKES BONDER PRN TOPICAL SEE LABEL COMMENTS; Start 11/09/16 at 00:45; Stop 11/09/16 at 12:05; Status DC Insulin Human Regular (NovoLIN R INJ) See Protocol Table ... AUTOMOBILE BRAKES BONDER PRN SQ SEE PROTOCOL TABLE; Start 11/09/16 at 00:45; Stop 11/12/16 at 00:44; Status DC Potassium Chloride (KCl) 20 meq ONCE ONCE PO Last administered on 11/09/16 11 :40; Start 11/09/16 at 11:00; Stop 11/09/16 at 11:01; Status DC Neomycin/ Polymyxin/ Bacitracin (Neosporin Oint) 1 applic DAILY TOPICAL Last administered on 01/10/17 09:00; Start 11/10/16 at 09:00 Lactulose (Lactulose Liq) 30 ml DAILY PO Last administered on 12/02/16 09:18; Start 11/10/16 at 09:00; Stop 12/08/16 at 09:52; Status DC Magnesium Hydroxide (Milk Of Magnesia Liq) 30 ml HS PO Last administered on 22:21; Start 11/10/16 at 21:00; Status Future hold Famotidine (Pepcid Inj) 20 mg STK-MED ONCE .ROUTE Last administered on 08:51; Start 11/10/16 at 08:51; Stop 11/10/16 at 08:52; Status DC Albuterol Sulfate (Albuterol Neb) 2.5 mg STK-MED ONCE .ROUTE Last administered on 11/10/16 08:55; Start 11/10/16 at 08:53; Stop 11/10/16 at 08:54; Status DC Gentamicin Sulfate (Gentamicin Inj) 240 mg STK-MED ONCE .ROUTE Last administered on 11/10/16 09:48; Start 11/10/16 at 09:02; Stop 11/10/16 at 09:03 ; Status DC Acetaminophen (Ofirmev Inj) 1,000 mg STK-MED ONCE IV ; Start 11/10/16 at 09:13; Stop 11/10/16 at 09:14; Status DC Lactated Ringer's 1,000 ml @ 100 mls/hr Q10H IV Last administered on 00:53; Start 11/10/16 at 13:00; Stop 11/11/16 at 11:56; Status DC Enoxaparin Sodium (Lovenox Inj) 30 mg Q12H SQ Last administered on 12/04/16 00 :03; Start 11/11/16 at 00:00; Stop 12/04/16 at 09:43; Status DC Cefazolin Sodium/ Dextrose 50 ml @ 100 mls/hr Q8H IV Last administered on 11/13 00:05; Start 11/10/16 at 16:00; Stop 11/13/16 at 08:29; Status DC Gentamicin Sulfate/Sodium Chloride 100 ml @ 200 mls/hr Q8H IV Last administered on 11/13/16 10:00; Start 11/10/16 at 18:00; Stop 11/13/16 at 10:29 ; Status DC Acetaminophen/ Hydrocodone Bitart (Richton 10-325 Mg) 1 tab Q3H PRN PO PAIN 3<10 Last administered on 11/18/16 04:34; Start 11/10/16 at 11:45; Stop 11/18/16 at 16 :37; Status DC Calcium/Vitamin D (Oscal-D 250-125) 250 mg TID PO Last administered on 09:30; Start 11/10/16 at 13:00 Meperidine HCl (*DEMEROL INJ PERIprocedural ONLY) 25 mg STK-MED ONCE .ROUTE Last administered on 11/10/16 12:36; Start 11/10/16 at 12:36; Stop 11/10/16 at 12:37; Status DC Miscellaneous Information ALL NURSING DEPARTME... UNSCH PRN .XX SEE LABEL COMMENTS; Start 11/10/16 at 12:29; Stop 11/11/16 at 12:28; Status DC Midazolam HCl (Versed Inj) 2 mg STK-MED ONCE .ROUTE ; Start 11/10/16 at 12:48; Stop 11/10/16 at 12:49; Status DC Fentanyl Citrate (fentaNYL INJ) 250 mcg STK-MED ONCE .ROUTE ; Start 11/10/16 at 12:48; Stop 11/10/16 at 12:49; Status DC Morphine Sulfate (*morphine INJ PERIprocedure ONLY) 8 mg STK-MED ONCE .ROUTE Last administered on 11/10/16 14:36; Start 11/10/16 at 14:36; Stop 11/10/16 at 14:37; Status DC Bisacodyl (Dulcolax Ec) 10 mg ONCE ONCE PO Last administered on 11/11/16 10: 17; Start 11/11/16 at 07:00; Stop 11/11/16 at 07:04; Status DC Bisacodyl (Dulcolax Supp) 10 mg ONCE ONCE RECTAL Last administered on 10:17; Start 11/11/16 at 07:00; Stop 11/11/16 at 07:04; Status DC Sodium Chloride 250 ml @ 15 mls/hr ONCE ONCE IV Last administered on 11:19; Start 11/11/16 at 11:15; Stop 11/12/16 at 03:54; Status DC Furosemide (Lasix Inj) 20 mg ONCE ONCE IV ; Start 11/11/16 at 11:15; Stop 11/11 at 11:16; Status Cancel Furosemide (Lasix Inj) 20 mg ONCE ONCE IV Last administered on 11/12/16t 11:18 ; Start 11/12/16 at 11:00; Stop 11/12/16 at 11:01; Status DC Albuterol/ Ipratropium (Duoneb Neb) 1 ampule Q4HR NEB PRN NEB wheezing; Start 11/12/16 at 13:15 Lactated Ringer's 1,000 ml @ 30 mls/hr Q24H PRN IV SEE LABEL COMMENTS; Start at 05:00; Stop 11/16/16 at 04:59; Status Cancel Sodium Chloride 500 ml @ 30 mls/hr [id number] PRN IV SEE LABEL COMMENTS; Start at 05:00; Stop 11/16/16 at 04:59; Status DC Metoprolol Tartrate (Lopressor) 25 mg AUTOMOBILE BRAKES BONDER PRN PO SEE LABEL COMMENTS; Start 11/13/16 at 05:00; Stop 11/16/16 at 04:59; Status DC Povidone Iodine (Betadine 5% Antisepsis Kit) 1 applic AUTOMOBILE BRAKES BONDER PRN EACH NARE SEE LABEL COMMENTS; Start 11/13/16 at 05:00; Stop 11/16/16 at 04:59; Status DC Chlorhexidine Gluconate (Chlorhexidine 2% Cloth) 3 pack AUTOMOBILE BRAKES BONDER PRN TOPICAL SEE LABEL COMMENTS; Start 11/13/16 at 05:00; Stop 11/16/16 at 04:59; Status DC Lidocaine HCl (Xylocaine 2% Jelly) 30 applic STK-MED ONCE .ROUTE ; Start at 07:15; Stop 11/13/16 at 07:16; Status DC Mineral Oil (Muri-Lube Oil) 10 ml STK-MED ONCE .ROUTE ; Start 11/13/16 at 07:15 ; Stop 11/13/16 at 07:16; Status DC Gentamicin Sulfate (Gentamicin Inj) 240 mg STK-MED ONCE .ROUTE Last administered on 11/13/16 08:20; Start 11/13/16 at 07:15; Stop 11/13/16 at 07:16 ; Status DC Albuterol Sulfate (Albuterol Neb) 2.5 mg STK-MED ONCE .ROUTE ; Start 11/13/16 at 07:34; Stop 11/13/16 at 07:35; Status DC Dexamethasone Sodium Phosphate (Decadron Inj) 4 mg STK-MED ONCE .ROUTE ; Start 11/13/16 at 07:36; Stop 11/13/16 at 07:37; Status DC Famotidine (Pepcid Inj) 20 mg STK-MED ONCE .ROUTE ; Start 11/13/16 at 07:36; Stop 11/13/16 at 07:37; Status DC Albuterol/ Ipratropium (Duoneb Neb) 1 ampule STK-MED ONCE .ROUTE Last administered on 11/13/16 07:50; Start 11/13/16 at 07:47; Stop 11/13/16 at 07:48 ; Status DC Lactated Ringer's 1,000 ml @ 100 mls/hr Q10H IV Last administered on 12:14; Start 11/13/16 at 08:42; Stop 11/18/16 at 16:33; Status DC Cefazolin Sodium/ Dextrose 50 ml @ 100 mls/hr Q8H IV Last administered on 04:43; Start 11/13/16 at 12:00; Stop 11/20/16 at 11:59; Status DC Gentamicin Sulfate/Sodium Chloride 100 ml @ 200 mls/hr Q8H IV Last administered on 11/16/16 09:14; Start 11/13/16 at 18:00; Stop 11/16/16 at 17:59 ; Status DC Midazolam HCl (Versed Inj) 2 mg STK-MED ONCE .ROUTE ; Start 11/13/16 at 09:25; Stop 11/13/16 at 09:26; Status DC Fentanyl Citrate (fentaNYL INJ) 250 mcg STK-MED ONCE .ROUTE ; Start 11/13/16 at 09:25; Stop 11/13/16 at 09:26; Status DC Zolpidem Tartrate (Ambien) 5 mg HS PRN PO Insomnia Last administered on 22:24; Start 11/14/16 at 11:00 Trazodone HCl (Desyrel) 100 mg HS PO Last administered on 01/12/17 20:59; Start 11/14/16 at 21:00 Morphine Sulfate (Oramorph Sr) 15 mg Q12HR PO Last administered on 11/18/16 10: 00; Start 11/16/16 at 21:00; Stop 11/18/16 at 16:36; Status DC Morphine Sulfate (Oramorph Sr) 15 mg ONCE ONCE PO Last administered on 12:32; Start 11/16/16 at 10:15; Stop 11/16/16 at 10:24; Status DC Gabapentin (Neurontin) 600 mg TID PO Last administered on 01/13/17 09:30; Start 11/16/16 at 13:00 Sodium Chloride 1,000 ml @ 999 mls/hr BOLUS ONCE IV Last administered on 17:22; Start 11/18/16 at 16:45; Stop 11/18/16 at 17:45; Status DC Morphine Sulfate (Oramorph Sr) 30 mg Q12HR PO Last administered on 11/29/16 09 :24; Start 11/18/16 at 21:00; Stop 11/29/16 at 14:26; Status DC Morphine Sulfate (Morphine Inj) 6 mg Q4H PRN IV PUSH PAIN SCALE 5 TO 10 Last administered on 11/19/16 05:59; Start 11/18/16 at 16:45; Stop 11/20/16 at 00:46; Status DC Morphine Sulfate (Morphine Inj) 3 mg Q3H PRN IV PUSH PAIN SCALE 1 TO 4 Last administered on 11/19/16 16:36; Start 11/18/16 at 16:45; Stop 11/20/16 at 00:46; Status DC Sodium Chloride 1,000 ml @ 125 mls/hr Q8H IV Last administered on 11/19/16 16: 15; Start 11/19/16 at 00:15; Stop 11/19/16 at 19:21; Status DC Sodium Chloride 500 ml @ 500 mls/hr BOLUS ONCE IV Last administered on 00:15; Start 11/19/16 at 00:15; Stop 11/19/16 at 01:14; Status DC Nystatin (Mycostatin Powder) 1 applic Q12HR TOPICAL Last administered on 08:54; Start 11/19/16 at 21:00; Stop 11/28/16 at 13:46; Status DC Acetaminophen/ Hydrocodone Bitart (Richton 7.5-325 Mg) 1 tab Q4H PRN PO PAIN SCALE 1 TO 4; Start 11/20/16 at 00:45; Stop 11/28/16 at 13:46; Status DC Acetaminophen/ Hydrocodone Bitart (Richton 10-325 Mg) 1 tab Q4H PRN PO PAIN SCALE 3-5 Last administered on 12/23/16 08:58; Start 11/20/16 at 00:45 Hydromorphone HCl (Dilaudid Pf Inj) 1 mg Q4H PRN IV PUSH BREAKTHROUGH PAIN Last administered on 12/17/16 10:38; Start 11/20/16 at 00:45; Stop 12/18/16 at 10:47; Status DC Propranolol HCl (Inderal) 40 mg Q12HR PO Last administered on 12/08/16 08:01; Start 11/22/16 at 21:00; Stop 12/08/16 at 10:00; Status DC Lactated Ringer's 1,000 ml @ 30 mls/hr Q24H PRN IV SEE LABEL COMMENTS; Start at 02:45; Stop 11/27/16 at 02:44; Status DC Sodium Chloride 500 ml @ 30 mls/hr [id number] PRN IV SEE LABEL COMMENTS; Start 11/24/16 at 02:45; Stop 11/27/16 at 02:44; Status DC Povidone Iodine (Betadine 5% Antisepsis Kit) 1 applic AUTOMOBILE BRAKES BONDER PRN EACH NARE SEE LABEL COMMENTS; Start 11/24/16 at 02:45; Stop 11/27/16 at 02:44; Status DC Chlorhexidine Gluconate (Chlorhexidine 2% Cloth) 3 pack AUTOMOBILE BRAKES BONDER PRN TOPICAL SEE LABEL COMMENTS; Start 11/24/16 at 02:45; Stop 11/27/16 at 02:44; Status DC Insulin Human Regular (NovoLIN R INJ) See Protocol Table ... AUTOMOBILE BRAKES BONDER PRN SQ SEE PROTOCOL TABLE; Start 11/24/16 at 02:45; Stop 11/27/16 at 02:44; Status DC Prochlorperazine Edisylate (Compazine Inj) 10 mg Q8H PRN IV PUSH NAUSEA/ VOMITING Last administered on 11/25/16 18:00; Start 11/25/16 at 16:15 Sodium Chloride 500 ml @ 500 mls/hr BOLUS ONCE IV Last administered on 18:06; Start 11/25/16 at 17:00; Stop 11/25/16 at 17:59; Status DC Gentamicin Sulfate (Gentamicin Inj) 240 mg STK-MED ONCE .ROUTE Last administered on 11/28/16 10:42; Start 11/28/16 at 07:18; Stop 11/28/16 at 07:19 ; Status DC Vancomycin HCl (Vancomycin Inj) 1,000 mg STK-MED ONCE .ROUTE Last administered on 12/09/16 15:25; Start 11/28/16 at 07:38; Stop 11/28/16 at 07:39; Status DC Cefazolin Sodium/ Dextrose 50 ml @ As Directed STK-MED ONCE .ROUTE Last administered on 12/09/16 15:20; Start 11/28/16 at 07:38; Stop 11/28/16 at 07:39 ; Status DC Sodium Chloride 250 ml @ As Directed STK-MED ONCE .ROUTE ; Start 11/28/16 at 07 :39; Stop 11/28/16 at 07:40; Status DC Fentanyl Citrate (fentaNYL INJ) 250 mcg STK-MED ONCE .ROUTE ; Start 11/28/16 at 10:15; Stop 11/28/16 at 10:16; Status DC Cefazolin Sodium (Ancef Inj) 1,000 mg STK-MED ONCE .ROUTE Last administered on 11/28/16 10:31; Start 11/28/16 at 10:23; Stop 11/28/16 at 10:24; Status DC Lactated Ringer's 1,000 ml @ 100 mls/hr Q10H IV ; Start 11/28/16 at 10:59; Stop 12/03/16 at 09:16; Status DC Cefazolin Sodium/ Dextrose 50 ml @ 100 mls/hr Q8H IV Last administered on 12/01 06:46; Start 11/28/16 at 15:00; Stop 12/01/16 at 14:59; Status DC Magnesium Hydroxide (Milk Of Magnesia Liq) 30 ml Q12H PRN PO MILD - MODERATE CONSTIPATION Last administered on 12/26/16 10:08; Start 11/28/16 at 11:30 Sennosides (Senokot) 17.2 mg Q12H PRN PO MODERATE - SEVERE CONSTIPATION Last administered on 12/25/16 09:48; Start 11/28/16 at 11:30 Bisacodyl (Dulcolax Supp) 10 mg DAILY PRN RECTAL SEVERE CONSITIPATION Last administered on 12/11/16 12:30; Start 11/28/16 at 11:30 Albuterol Sulfate (*ALBUTEROL NEB PERIprocedure ONLY) 2.5 mg STK-MED ONCE NEB Last administered on 11/28/16 11:38; Start 11/28/16 at 11:38; Stop 11/28/16 at 11:39; Status DC Dexamethasone Sodium Phosphate (Decadron Inj) 4 mg STK-MED ONCE .ROUTE ; Start 11/28/16 at 11:51; Stop 11/28/16 at 11:52; Status DC Dexamethasone Sodium Phosphate (Decadron Inj) 4 mg NOW ONCE IV Last administered on 11/28/16 12:00; Start 11/28/16 at 12:00; Stop 11/28/16 at 12:01 ; Status DC Miscellaneous Information ALL NURSING DEPARTME... UNSCH PRN .XX SEE LABEL COMMENTS; Start 11/28/16 at 11:22; Stop 11/29/16 at 11:21; Status DC Morphine Sulfate (*morphine INJ PERIprocedure ONLY) 8 mg STK-MED ONCE .ROUTE Last administered on 11/28/16 12:01; Start 11/28/16 at 12:01; Stop 11/28/16 at 12:02; Status DC Acetaminophen/ Hydrocodone Bitart (Richton 10-325 Mg) 1.5 tab Q4H PRN PO pain 6- 10 Last administered on 12/23/16 17:35; Start 11/28/16 at 15:00; Stop 12/23/16 at 18:38; Status DC Nystatin (Mycostatin Cream) 1 applic Q6HR TOPICAL Last administered on 05:00; Start 11/28/16 at 14:00; Stop 12/16/16 at 13:46; Status DC Morphine Sulfate (Oramorph Sr) 30 mg Q8HR PO Last administered on 12/03/16 06: 09; Start 11/29/16 at 22:00; Stop 12/03/16 at 12:16; Status DC Cetirizine HCl (ZyrTEC) 10 mg HS PO Last administered on 12/07/16 20:03; Start 12/01/16 at 21:00; Stop 12/08/16 at 20:59; Status DC Fluticasone Propionate (Flonase Jerzy Spr) 2 spray DAILY EACH NARE Last administered on 12/15/16 08:54; Start 12/01/16 at 11:00; Stop 12/15/16 at 10:59 ; Status DC Folic Acid (Folate) 1 mg DAILY PO Last administered on 01/13/17 09:30; Start 12/03/16 at 09:00 Morphine Sulfate (Oramorph Sr) 30 mg Q8HR PO Last administered on 01/13/17 05: 09; Start 12/03/16 at 14:00 Lactobacillus Acidophilus (Lactinex) 1 tab TID PO Last administered on 08:10; Start 12/04/16 at 09:00; Stop 12/05/16 at 09:26; Status DC Enoxaparin Sodium (Lovenox Inj) 40 mg DAILY SQ Last administered on 01/13/17 09:31; Start 12/05/16 at 09:00 Al Hydrox/Mg Hydrox/Simethicone (Mag-Al Plus Susp Liq) 30 ml ONCE ONCE PO Last administered on 12/04/16 11:55; Start 12/04/16 at 11:45; Stop 12/04/16 at 11:50; Status DC Al Hydrox/Mg Hydrox/Simethicone (Mag-Al Plus Susp Liq) 30 ml Q6HR PRN PO HEARTBURN, INDIGESTION Last administered on 01/06/17 11:29; Start 12/04/16 at 18:00 Sucralfate (Carafate Liq) 1 gm QID PO Last administered on 12/16/16 13:41; Start 12/05/16 at 09:00; Stop 12/16/16 at 13:43; Status DC Lactobacillus Acidophilus (Lactinex) 1 tab BID PO Last administered on 09:36; Start 12/05/16 at 21:00; Stop 12/18/16 at 10:47; Status DC Polyethylene Glycol (Miralax) 17 gm DAILY PRN PO CONSTIPATION; Start 12/08/16 at 10:00; Stop 12/11/16 at 15:18; Status DC Propranolol HCl (Inderal) 20 mg Q12HR PO Last administered on 12/09/16t 20:34; Start 12/08/16 at 21:00; Stop 12/10/16 at 07:34; Status DC Lactated Ringer's 1,000 ml @ 30 mls/hr Q24H PRN IV SEE LABEL COMMENTS; Start at 01:30; Stop 12/12/16 at 01:29; Status DC Sodium Chloride 500 ml @ 30 mls/hr [id number] PRN IV SEE LABEL COMMENTS; Start at 01:30; Stop 12/12/16 at 01:29; Status DC Povidone Iodine (Betadine 5% Antisepsis Kit) 1 applic AUTOMOBILE BRAKES BONDER PRN EACH NARE SEE LABEL COMMENTS; Start 12/09/16 at 01:30; Stop 12/12/16 at 01:29; Status DC Chlorhexidine Gluconate (Chlorhexidine 2% Cloth) 3 pack AUTOMOBILE BRAKES BONDER PRN TOPICAL SEE LABEL COMMENTS; Start 12/09/16 at 01:30; Stop 12/12/16 at 01:29; Status DC Insulin Human Regular (NovoLIN R INJ) See Protocol Table ... AUTOMOBILE BRAKES BONDER PRN SQ SEE PROTOCOL TABLE; Start 12/09/16 at 01:30; Stop 12/12/16 at 01:29; Status DC Bupivacaine HCl/ Epinephrine Bitart (Sensorcaine-Epinephrine 0.25% Inj) 50 ml STK-MED ONCE .ROUTE ; Start 12/09/16 at 14:07; Stop 12/09/16 at 14:08; Status DC Mineral Oil (Muri-Lube Oil) 10 ml STK-MED ONCE .ROUTE ; Start 12/09/16 at 14:07 ; Stop 12/09/16 at 14:08; Status DC Gentamicin Sulfate (Gentamicin Inj) 240 mg STK-MED ONCE .ROUTE Last administered on 12/09/16 15:31; Start 12/09/16 at 14:07; Stop 12/09/16 at 14:08 ; Status DC Vancomycin HCl (Vancomycin Inj) 1,000 mg STK-MED ONCE .ROUTE ; Start 12/09/16 at 15:06; Stop 12/09/16 at 15:07; Status DC Cefazolin Sodium/ Dextrose 50 ml @ As Directed STK-MED ONCE .ROUTE ; Start 12/09 at 15:06; Stop 12/09/16 at 15:07; Status DC Lactated Ringer's 1,000 ml @ 100 mls/hr Q10H IV ; Start 12/09/16 at 15:57; Stop 12/16/16 at 13:45; Status DC Cefazolin Sodium/ Dextrose 50 ml @ 100 mls/hr Q8H IV Last administered on 12/16 13:42; Start 12/09/16 at 20:00; Stop 12/16/16 at 19:59; Status DC Gentamicin Sulfate/Sodium Chloride 100 ml @ 200 mls/hr Q8H IV Last administered on 12/12/16 12:25; Start 12/09/16 at 21:00; Stop 12/12/16 at 20:59 ; Status DC Morphine Sulfate (*morphine INJ PERIprocedure ONLY) 8 mg STK-MED ONCE .ROUTE Last administered on 12/09/16 16:32; Start 12/09/16 at 16:32; Stop 12/09/16 at 16:33; Status DC Fentanyl Citrate (fentaNYL INJ) 250 mcg STK-MED ONCE .ROUTE ; Start 12/09/16 at 16:33; Stop 12/09/16 at 16:34; Status DC Miscellaneous Information ALL NURSING DEPARTME... UNSCH PRN .XX SEE LABEL COMMENTS; Start 12/09/16 at 16:20; Stop 12/10/16 at 16:19; Status DC Morphine Sulfate (*morphine INJ PERIprocedure ONLY) 8 mg STK-MED ONCE .ROUTE Last administered on 12/09/16 17:01; Start 12/09/16 at 17:01; Stop 12/09/16 at 17:02; Status DC Propranolol HCl (Inderal) 10 mg Q12HR PO Last administered on 12/13/16 09:42; Start 12/10/16 at 09:00; Stop 12/13/16 at 10:32; Status DC Menthol/Methyl Salicylate (Aleks Daniels Oint) 1 applic UNSCH PRN TOPICAL arthritic pain Last administered on 12/12/16 17:51; Start 12/11/16 at 15:30 Propranolol HCl (Inderal) 20 mg Q12HR PO ; Start 12/13/16 at 21:00; Stop at 21:00; Status DC Propranolol HCl (Inderal) 10 mg Q12HR PO Last administered on 01/13/17 09:30; Start 12/13/16 at 21:00 Bacitracin (Baciguent Oint) 1 applic DAILY PRN TOPICAL WOUND VAC DRESSING CHANGE; Start 12/15/16 at 12:30 Sucralfate (Carafate Liq) 1 gm BID PO Last administered on 12/30/16 08:30; Start 12/16/16 at 21:00; Stop 12/30/16 at 20:59; Status DC Lidocaine HCl (Lidoderm 5% Patch.12 Hr) 1 patch DAILY T-DERMAL Last administered on 12/18/16 11:33; Start 12/18/16 at 10:00; Stop 12/19/16 at 19:35 ; Status DC Miscellaneous Information 1 Q24H T-DERMAL ; Start 12/18/16 at 21:00; Stop at 19:35; Status DC Lactobacillus Acidophilus (Lactinex) 1 tab TID PO Last administered on 09:30; Start 12/18/16 at 13:00 Lidocaine HCl (Lidoderm 5% Patch.12 Hr) 1 patch HS T-DERMAL Last administered on 01/03/17 20:55; Start 12/19/16 at 21:00 Miscellaneous Information 1 Q24H T-DERMAL Last administered on 12/24/16 09:00; Start 12/20/16 at 09:00 Propofol (Diprivan 200 Mg/20 ml Inj) 200 mg STK-MED ONCE IV ; Start 11/07/16 at 12:00; Stop 12/23/16 at 10:36; Status DC Ephedrine Sulfate (ePHEDrine/NS 25 MG/5 ML SYR) 50 mg STK-MED ONCE IV ; Start at 12:00; Stop 12/23/16 at 10:36; Status DC Neostigmine Methylsulfate (Prostigmin Inj) 3 mg STK-MED ONCE IV ; Start at 12:00; Stop 12/23/16 at 10:36; Status DC Phenylephrine HCl (Neosynephrine/ NS 1000 Mcg/10ml Syr) 1,000 mcg STK-MED ONCE IV ; Start 11/07/16 at 12:00; Stop 12/23/16 at 10:37; Status DC Ondansetron HCl (Zofran Inj) 4 mg STK-MED ONCE IV PUSH ; Start 11/07/16 at 12:00 ; Stop 12/23/16 at 10:37; Status DC Lactated Ringer's 1,000 ml @ As Directed STK-MED ONCE IV ; Start 11/07/16 at 12 :00; Stop 12/23/16 at 10:37; Status DC Parenteral Electrolytes 1,000 ml @ As Directed STK-MED ONCE IV ; Start at 12:00; Stop 12/23/16 at 10:37; Status DC Propofol (Diprivan 200 Mg/20 ml Inj) 400 mg STK-MED ONCE IV ; Start 11/10/16 at 12:00; Stop 12/23/16 at 12:04; Status DC Phenylephrine HCl (Neosynephrine/ NS 1000 Mcg/10ml Syr) 2,000 mcg STK-MED ONCE IV ; Start 11/10/16 at 12:00; Stop 12/23/16 at 12:04; Status DC Ondansetron HCl (Zofran Inj) 4 mg STK-MED ONCE IV PUSH ; Start 11/10/16 at 12:00 ; Stop 12/23/16 at 12:04; Status DC Lactated Ringer's 1,000 ml @ As Directed STK-MED ONCE IV ; Start 11/10/16 at 12 :00; Stop 12/23/16 at 12:04; Status DC Propofol (Diprivan 200 Mg/20 ml Inj) 200 mg STK-MED ONCE IV ; Start 11/13/16 at 12:00; Stop 12/23/16 at 12:38; Status DC Ephedrine Sulfate (ePHEDrine/NS 25 MG/5 ML SYR) 25 mg STK-MED ONCE IV ; Start at 12:00; Stop 12/23/16 at 12:38; Status DC Phenylephrine HCl (Neosynephrine/ NS 1000 Mcg/10ml Syr) 1,000 mcg STK-MED ONCE IV ; Start 11/13/16 at 12:00; Stop 12/23/16 at 12:38; Status DC Ondansetron HCl (Zofran Inj) 4 mg STK-MED ONCE IV PUSH ; Start 11/13/16 at 12:00 ; Stop 12/23/16 at 12:38; Status DC Lactated Ringer's 1,000 ml @ As Directed STK-MED ONCE IV ; Start 11/13/16 at 12 :00; Stop 12/23/16 at 12:38; Status DC Neostigmine Methylsulfate (Prostigmin Inj) 3 mg STK-MED ONCE IV ; Start at 12:00; Stop 12/23/16 at 12:38; Status DC Propofol (Diprivan 200 Mg/20 ml Inj) 200 mg STK-MED ONCE IV ; Start 11/28/16 at 12:00; Stop 12/23/16 at 12:50; Status DC Ephedrine Sulfate (ePHEDrine/NS 25 MG/5 ML SYR) 25 mg STK-MED ONCE IV ; Start at 12:00; Stop 12/23/16 at 12:50; Status DC Ondansetron HCl (Zofran Inj) 4 mg STK-MED ONCE IV PUSH ; Start 11/28/16 at 12:00 ; Stop 12/23/16 at 12:50; Status DC Propofol (Diprivan 200 Mg/20 ml Inj) 200 mg STK-MED ONCE IV ; Start 12/09/16 at 12:00; Stop 12/23/16 at 14:38; Status DC Ephedrine Sulfate (ePHEDrine/NS 25 MG/5 ML SYR) 50 mg STK-MED ONCE IV ; Start at 12:00; Stop 12/23/16 at 14:38; Status DC Ondansetron HCl (Zofran Inj) 4 mg STK-MED ONCE IV PUSH ; Start 12/09/16 at 12:00 ; Stop 12/23/16 at 14:38; Status DC Acetaminophen/ Hydrocodone Bitart (Richton 10-325 Mg) 2 tab Q4H PRN PO pain 6-10 Last administered on 01/13/17t 09:31; Start 12/23/16 at 18:45 Vancomycin HCl 5000 mg/Sodium Chloride 3,000 ml @ 10 mls/hr Q24H PRN IRRIGATION DRESSING CHANGE Last administered on 01/08/17 01:36; Start 12/25/16 at 08:00 Diphenhydramine HCl (Benadryl) 12.5 mg Q4H PRN PO itching Last administered on 12/28/16 07:54; Start 12/25/16 at 16:45; Stop 12/28/16 at 13:48; Status DC Ferrous Sulfate (Ferrous Sulfate) 325 mg BID@12,17 PO Last administered on 01/12 18:11; Start 12/26/16 at 12:00 Ascorbic Acid (Vitamin C) 500 mg BID PO Last administered on 01/13/17 09:30; Start 12/26/16 at 09:00 Pharmacy Profile Note 0 ml @ 0 mls/hr UNSCH OTHER ; Start 12/26/16 at 14:45 Vancomycin HCl 1500 mg/Sodium Chloride 515 ml @ 257.5 mls/ hr Q12H IV Last administered on 12/26/16 20:17; Start 12/26/16 at 17:00; Stop 12/27/16 at 04:54; Status DC Miscellaneous Information SPECIFIC LAB TO BE LEANNA... ONCE ONCE .XX ; Start 12/28 at 04:45; Stop 12/28/16 at 04:46; Status Cancel Vancomycin HCl 1500 mg/Sodium Chloride 515 ml @ 257.5 mls/ hr Q12H IV Last administered on 12/29/16 20:50; Start 12/27/16 at 08:00; Stop 12/29/16 at 20:35 ; Status DC Miscellaneous Information SPECIFIC LAB TO BE LEANNA... ONCE ONCE .XX ; Start 12/28 at 07:45; Stop 12/28/16 at 07:46; Status DC Miscellaneous Information SPECIFIC LAB TO BE LEANNA... ONCE ONCE .XX Last administered on 12/29/16 20:45; Start 12/29/16 at 20:45; Stop 12/29/16 at 20:46 ; Status DC Diphenhydramine HCl (Benadryl) 50 mg Q4H PRN PO itching Last administered on 09:30; Start 12/28/16 at 16:45 Vancomycin HCl 1500 mg/Sodium Chloride 515 ml @ 257.5 mls/ hr Q12H IV Last administered on 01/03/17 08:51; Start 12/29/16 at 21:00; Stop 01/03/17 at 22:00 ; Status DC Miscellaneous Information SPECIFIC LAB TO BE DRAWN:VANCO TROUGH DATE TO BE DR... ONCE ONCE .XX Last administered on 12/31/16 08:45; Start 12/31/16 at 08 :45; Stop 12/31/16 at 08:46; Status DC Miscellaneous Information SPECIFIC LAB TO BE LEANNA... ONCE ONCE .XX ; Start 01/03 at 08:45; Stop 01/03/17 at 08:46; Status DC Fluticasone Propionate (Flonase Jerzy Spr) 1 spray BID NASAL Last administered on 01/13/17 09:32; Start 01/02/17 at 21:00 Miscellaneous Information SPECIFIC LAB TO BE DRAWN:VANCOMY... ONCE ONCE .XX Last administered on 01/03/17 20:45; Start 01/03/17 at 20:45; Stop 01/03/17 at 20:46; Status DC Vancomycin HCl 1500 mg/Sodium Chloride 515 ml @ 257.5 mls/ hr Q12H IV Last administered on 01/13/17 09:29; Start 01/03/17 at 22:00 Miscellaneous Information SPECIFIC LAB TO BE LEANNA... ONCE ONCE .XX ; Start 01/04 at 21:45; Stop 01/04/17 at 21:46; Status DC Miscellaneous Information SPECIFIC LAB TO BE LEANNA... ONCE ONCE .XX ; Start 01/05 at 21:45; Stop 01/05/17 at 21:46; Status DC Calcium Carbonate (Tums Chew) 500 mg Q12HR CHEW Last administered on 01/13/17 09:31; Start 01/05/17 at 11:30 Cefazolin Sodium/ Dextrose 50 ml @ As Directed STK-MED ONCE .ROUTE Last administered on 01/09/17 13:01; Start 01/09/17 at 11:31; Stop 01/09/17 at 11:32 ; Status DC Lidocaine HCl (Xylocaine 2% Jelly) 30 applic STK-MED ONCE .ROUTE Last administered on 01/09/17 13:08; Start 01/09/17 at 11:31; Stop 01/09/17 at 11:32 ; Status DC Mineral Oil (Muri-Lube Oil) 10 ml STK-MED ONCE .ROUTE Last administered on 01/09 13:08; Start 01/09/17 at 11:31; Stop 01/09/17 at 11:32; Status DC Gentamicin Sulfate (Gentamicin Inj) 240 mg STK-MED ONCE .ROUTE Last administered on 01/09/17 13:08; Start 01/09/17 at 11:31; Stop 01/09/17 at 11:32 ; Status DC Lactated Ringer's 1,000 ml @ 100 mls/hr Q10H IV Last administered on 14:15; Start 01/09/17 at 13:34 Morphine Sulfate (*morphine INJ PERIprocedure ONLY) 8 mg STK-MED ONCE .ROUTE Last administered on 01/09/17 14:10; Start 01/09/17 at 14:10; Stop 01/09/17 at 14:11; Status DC Miscellaneous Information ALL NURSING DEPARTME... UNSCH PRN .XX SEE LABEL COMMENTS; Start 01/09/17 at 13:52; Stop 01/10/17 at 13:51; Status DC Miscellaneous Information SPECIFIC LAB TO BE ... ONCE ONCE .XX Last administered on 01/11/17 09:45; Start 01/11/17 at 09:45; Stop 01/11/17 at 09:46 ; Status DC A/P Assessment and Plan A/P Bilateral open tibia-fibula fractures Left tibial plateau fracture - Open fractures have been surgically repaired, right side has external fixation - s/p Removal of external fixation right lower extremity, irrigation debridement of left leg, split-thickness skin graft left leg, application wound VAC dressing on 01/09 - left tibial plateau fracture treated nonoperatively - continue with pain control. -management per ortho MRSA - wound culture 12/23 positive for MRSA -on Vanco- evaluated by ID Acute blood loss anemia JAMAR - Related to trauma vs post op blood loss - Status post transfusion of 2 units of packed red blood cells in 11/12/16. - on iron supplementation daily. - hemoglobin stable - monitor CBC as indicated Coronary artery disease with h/o previous CABG - Appears stable. Patient is asymptomatic. - Continue propranolol and statin - ASA 81mg daily - Clonidine PRN Hypertension - controlled - MARGIE inhibitor held due to hypotension. Diabetes mellitus type 2 - blood sugars well controlled - accu checks discontinued Alcohol abuse Transaminitis, resolved - AST and ALT now within normal range. - Continue with daily thiamine and folic acid - Alcohol cessation recommended Tobacco abuse - Cessation recommended. Chronic essential tremor - Continue Propranolol Allergic rhinitis - Flonase Indigestion -Patient on Protonix and Maalox. DVT prophylaxis with Lovenox Blaine Corrales MD Jan 13, 2017 10:07
[2017-01-13 12:00] VITALS: BP 121/64; PULSE 61; RESP 17; TEMP 97.4; O2SAT 98
[2017-01-13] MEDS: FERROUS SULFATE 325 MG (65 MG ELEMENTAL IRON) TAB PO SCH ×2 (12:46→17:45)
[2017-01-13 16:15] VITALS: BP 109/68; PULSE 77; RESP 16; TEMP 98; O2SAT 98
[2017-01-13 16:31] VITALS: BP 146/77; PULSE 78; RESP 17; TEMP 97.1; O2SAT 96
[2017-01-13 19:40] VITALS: BP 109/65; PULSE 73; RESP 16; TEMP 98; O2SAT 98
[2017-01-13] MEDS: MAGNESIUM HYDROXIDE SUSP 30 ML CUP PO SCH (21:00)
[2017-01-13] MEDS: LIDOCAINE HCL 5% PATCH T-DERMAL SCH (21:00)
[2017-01-13] MEDS: traZODone HCL 100 MG TAB PO SCH (22:19)
[2017-01-13] MEDS: PRAVASTATIN SOD 80 MG TAB PO SCH (22:20)
[2017-01-14] MEDS: ACETAMINOPHEN/HYDROcodone 325 MG/10 MG TAB PO PRN ×5 (02:51→23:21)
[2017-01-14] MEDS: LACTATED RINGER'S 1000 ML INJ 1,000 ML IV SCH ×3 (03:34→23:34)
[2017-01-14] MEDS: MORPHINE SULFATE 30 MG CONTROLLED RELEASE TAB PO SCH ×3 (06:22→21:15)
[2017-01-14 08:00] VITALS: BP 120/69; PULSE 68; RESP 18; TEMP 98; O2SAT 97
[2017-01-14] MEDS: SODIUM CHLORIDE 0.9% FLUSH 10 ML FLUSH IV FLUSH SCH ×2 (08:45→21:16)
[2017-01-14] MEDS: GABAPENTIN 300 MG CAP PO SCH ×3 (08:45→17:44)
[2017-01-14] MEDS: FOLIC ACID 1 MG TAB PO SCH (08:45)
[2017-01-14] MEDS: ENOXAPARIN SODIUM 40 MG/0.4 ML SYRINGE SQ SCH (08:45)
[2017-01-14] MEDS: LACTOBACILLUS ACIDOPHILUS TAB PO SCH ×3 (08:45→17:44)
[2017-01-14] MEDS: CALCIUM CARBONATE 500 MG CHEWABLE TAB CHEW SCH ×2 (08:46→21:15)
[2017-01-14] MEDS: ASPIRIN 81 MG CHEW TAB CHEW SCH (08:46)
[2017-01-14] MEDS: THIAMINE HCL 100 MG TAB PO SCH (08:46)
[2017-01-14] MEDS: PROPRANOLOL HCL 10 MG TAB PO SCH ×2 (08:46→21:00)
[2017-01-14] MEDS: CALCIUM/VITAMIN D 250 MG/125 U TAB PO SCH ×3 (08:46→17:45)
[2017-01-14] MEDS: FLUTICASONE PROPIONATE 50 MCG/ACT 16 GM NASAL SPRAY NASAL SCH ×2 (08:47→21:00)
[2017-01-14] MEDS: PANTOPRAZOLE SOD 40 MG DELAYED RELEASE TAB PO SCH (08:47)
[2017-01-14] MEDS: ASCORBIC ACID 500 MG TAB PO SCH ×2 (08:47→21:13)
[2017-01-14] MEDS: DOCUSATE SODIUM 50 MG/SENNA 8.6 MG TAB PO SCH ×2 (08:47→21:00)
[2017-01-14] MEDS: NEOMYCIN/POLYMYXIN/BACITRACIN OINT 15 GM TUBE TOPICAL SCH (08:47)
[2017-01-14] MEDS: REMOVE OLD LIDOCAINE PATCH T-DERMAL SCH (09:00)
[2017-01-14] MEDS: FERROUS SULFATE 325 MG (65 MG ELEMENTAL IRON) TAB PO SCH ×2 (10:46→17:44)
[2017-01-14] MEDS: VANCOMYCIN 1,500 MG/NS 500 ML IV SCH ×4 (10:47→21:18)
--- NOTE | 2017-01-14 11:27 | HHI.PR ---
Subjective Remarks in no distress. afebrile. pain is controlled. no new complaints. Objective Vitals Vital Signs Date Time Temp Pulse Resp B/P (MAP) Pulse Ox O2 Delivery O2 Flow Rate FiO2 01/14/17 08:00 98.0 68 18 120/69 (86) 97 01/13/17 19:40 98.0 73 16 109/65 (80) 98 01/13/17 18:56 Room Air 01/13/17 16:31 97.1 78 17 146/77 (100) 96 01/13/17 16:15 98.0 77 16 109/68 (82) 98 01/13/17 12:00 97.4 61 17 121/64 (83) 98 I/O 01/13/17 01/13/17 01/13/17 01/14/17 01/14/17 01/14/17 06:59 14:59 22:59 06:59 14:59 22:59 Intake Total 720 ml 800 ml 720 ml 604 ml Output Total 1100 ml 1800 ml 1475 ml Balance -380 ml -1000 ml 720 ml -871 ml Intake Oral 720 ml 800 ml 720 ml 604 ml Output Urine Total 1100 ml 1800 ml 1475 ml Drainage Total 0 ml # Voids 3 # Bowel Movements 1 1 1 0 Result Diagram: 01/10/17 0417 01/13/17 0527 Imaging Last Impressions Ankle X-Ray 01/09/17 0000 Signed Impressions: Service Date/Time: Monday, January 09, 2017 12:59 - CONCLUSION: Fluoroscopic images during placement of screws along the distal tibia and single long screw along the distal fibula. Fractures are again seen.. Jac Gonzales MD Tibia/Fibula X-Ray 01/01/17 0000 Signed Impressions: Service Date/Time: December 09:33 - CONCLUSION: There are no complications. Paul Fuentes MD Knee X-Ray 01/01/17 0000 Signed Impressions: Service Date/Time: December 09:37 - CONCLUSION: Lateral tibial plateau fracture without involvement of the articulating surface. Paul Fuentes MD Foot X-Ray 12/27/16 0000 Signed Impressions: Service Date/Time: Tuesday, December 27, 2016 16:50 - CONCLUSION: Distal tibia and fibula fractures with internal fixation hardware. Samir Massey MD Gall Bladder Ultrasound 12/05/16 0000 Signed Impressions: Service Date/Time: Monday, December 05, 2016 08:38 - CONCLUSION: Unremarkable exam. Gallbladder is within normal limits with no evidence of cholelithiasis. Ronald Rao MD Abdomen X-Ray 12/04/16 0000 Signed Impressions: Service Date/Time: November 10:42 - CONCLUSION: Unremarkable bowel gas pattern. Ronald Rao MD Chest X-Ray 11/20/16 0000 Signed Impressions: Service Date/Time: November 17:08 - CONCLUSION: 1. No acute abnormality or significant interval change. Sukhi Stevens MD Pelvis X-Ray 11/07/16 1355 Signed Impressions: Service Date/Time: Monday, November 07, 2016 13:34 - CONCLUSION: No acute disease. Behzad Finch Jr., MD Objective Remarks GENERAL: This is a well-nourished, well-developed patient, in no apparent distress. CARDIOVASCULAR: Regular rate and regular rhythm without murmurs, gallops, or rubs. RESPIRATORY: Clear to auscultation. Breath sounds equal bilaterally. No wheezes , rales, or rhonchi. GASTROINTESTINAL: Abdomen soft, non-tender, nondistended. Normal, active bowel sounds MUSCULOSKELETAL: both legs covered with clean dressing. NEURO: Alert & Oriented x4 to person, place, time, situation. Moves all ext x4 Procedures 1.s/p I&D with ex fix application bilateral tibias s/p wound vac application left tibia 2.With the assistance of RN, under sterile technique the avulsed skin of the right middle finger was clipped. No bleeding noted. Patient gave consent 3.Open reduction internal fixation of right distal tibia and fibula fractures Nonoperative treatment left tibial plateau fracture Irrigation and debridement of left tibia shaft fracture, removal external fixation, soleus muscle rotational flap, intramedullary nail fixation left tibia , application of wound VAC dressing 4.7 Irrigation and debridement of left tibia, application wound VAC dressing 5. 8 Irrigation and debridement of left open tibia fracture with application of wound VAC dressing 6. 8 wound vac change at the bedside 7. 8 wound vac change at the bedside 8. 8 wound vac change at the bedside 9. 12/09 I&D left tibia, application of wound VAC dressing and application of AlloMax allograft dermal matrix 10. 01/09 Removal of external fixation right lower extremity, irrigation debridement of left leg, split-thickness skin graft left leg, application wound VAC dressing Medications and IVs Current Medications Cefazolin Sodium/ Dextrose 50 ml @ As Directed STK-MED ONCE .ROUTE Last administered on 11/13/16 08:09; Start 11/07/16 at 13:58; Stop 11/07/16 at 13:59 ; Status DC Diphtheria/ Tetanus/Acell Pertussis (Boostrix Inj) 0.5 ml STK-MED ONCE IM ; Start 11/07/16 at 13:58; Stop 11/07/16 at 13:59; Status DC Morphine Sulfate (Morphine Inj) 8 mg STK-MED ONCE .ROUTE ; Start 11/07/16 at 14: 01; Stop 11/07/16 at 14:02; Status DC Hydromorphone HCl (Dilaudid Pf Inj) 1 mg STK-MED ONCE .ROUTE Last administered on 11/07/16 19:15; Start 11/07/16 at 14:05; Stop 11/07/16 at 14:06; Status DC Lactated Ringer's 1,000 ml @ 100 mls/hr Q10H IV ; Start 11/07/16 at 14:22; Stop 11/07/16 at 19:02; Status DC Sodium Chloride (NS Flush) 2 ml UNSCH PRN IV FLUSH FLUSH AFTER USING IV ACCESS Last administered on 12/11/16 11:31; Start 11/07/16 at 14:30 Sodium Chloride (NS Flush) 2 ml BID IV FLUSH Last administered on 01/14/17 08: 45; Start 11/07/16 at 21:00 Ondansetron HCl (Zofran Inj) 4 mg Q6H PRN IV NAUSEA OR VOMITING Last administered on 12/04/16 06:13; Start 11/07/16 at 14:30 Pantoprazole Sodium (Protonix Inj) 40 mg Q24H IV Last administered on 20:00; Start 11/07/16 at 17:00; Stop 11/08/16 at 08:09; Status DC Docusate Sodium (Colace) 100 mg BID PO ; Start 11/07/16 at 21:00; Stop 11/08/16 at 13:04; Status DC Cefazolin Sodium 1000 mg/Sodium Chloride 100 ml @ 200 mls/hr Q8H IV ; Start at 22:00; Stop 11/07/16 at 22:00; Status DC Miscellaneous Information (Post-op Orders (for Pharmacy)) STAT ONCE XX ; Start 11/07/16 at 14:30; Stop 11/07/16 at 15:39; Status DC Oxycodone/ Acetaminophen (Percocet 10-325 Mg) 1 tab Q4H PRN PO 3-5; Start 11/07 at 14:30; Stop 11/07/16 at 19:03; Status DC Hydromorphone HCl (Dilaudid Pf Inj) 1 mg Q2H PRN IV Pain 6-10; Start 11/07/16 at 14:30; Stop 11/07/16 at 19:11; Status DC Naloxone HCl (Narcan Inj) 0.4 mg UNSCH PRN IV SEE LABEL COMMENTS; Start at 14:30 Gentamicin Sulfate (Gentamicin Inj) 80 mg Q8H IM ; Start 11/07/16 at 14:30; Stop 11/07/16 at 15:37; Status DC Hydromorphone HCl (Dilaudid Pf Inj) 0.5 mg FILM LOADER DOSING PRN IV PUSH pain; Start 11/07/16 at 14:45; Stop 11/07/16 at 19:11; Status DC Gentamicin Sulfate/Sodium Chloride 100 ml @ 200 mls/hr Q8H IV ; Start 11/07/16 at 17:00; Status Cancel Miscellaneous Information (Post-op Orders (for Pharmacy)) UNSCH X1 XX ; Start 11/07/16 at 15:45; Stop 11/08/16 at 06:00; Status DC Cefazolin Sodium (Ancef Inj) 1,000 mg STK-MED ONCE .ROUTE Last administered on 11/07/16 16:26; Start 11/07/16 at 15:48; Stop 11/07/16 at 15:49; Status DC Gentamicin Sulfate (Gentamicin Inj) 80 mg STK-MED ONCE .ROUTE Last administered on 11/07/16 16:26; Start 11/07/16 at 15:49; Stop 11/07/16 at 15:50 ; Status DC Acetaminophen (Ofirmev Inj) 1,000 mg STK-MED ONCE IV ; Start 11/07/16 at 15:56; Stop 11/07/16 at 15:57; Status DC Midazolam HCl (Versed Inj) 2 mg STK-MED ONCE .ROUTE ; Start 11/07/16 at 15:56; Stop 11/07/16 at 15:57; Status DC Famotidine (Pepcid Inj) 20 mg STK-MED ONCE .ROUTE ; Start 11/07/16 at 15:56; Stop 11/07/16 at 15:57; Status DC Gentamicin Sulfate (Gentamicin Inj) 240 mg STK-MED ONCE IRRIGATION Last administered on 11/07/16 16:26; Start 11/07/16 at 16:26; Stop 11/07/16 at 16:42 ; Status DC Fentanyl Citrate (fentaNYL INJ) 250 mcg STK-MED ONCE .ROUTE ; Start 11/07/16 at 17:03; Stop 11/07/16 at 17:04; Status DC Gentamicin Sulfate (Gentamicin Inj) 240 mg STK-MED ONCE .ROUTE Last administered on 11/07/16 16:26; Start 11/07/16 at 17:10; Stop 11/07/16 at 17:11 ; Status DC Lactated Ringer's 1,000 ml @ 100 mls/hr Q10H IV Last administered on 07:51; Start 11/07/16 at 18:00; Stop 11/08/16 at 12:46; Status DC Enoxaparin Sodium (Lovenox Inj) 30 mg Q12H SQ ; Start 11/08/16 at 17:00; Stop at 11:48; Status DC Cefazolin Sodium/ Dextrose 50 ml @ 100 mls/hr Q8H IV Last administered on 11/10 08:16; Start 11/08/16 at 00:00; Stop 11/10/16 at 12:47; Status DC Gentamicin Sulfate/Sodium Chloride 100 ml @ 200 mls/hr Q8H IV Last administered on 11/10/16 16:30; Start 11/08/16 at 00:00; Stop 11/10/16 at 16:29 ; Status DC Acetaminophen/ Hydrocodone Bitart ([place] 10-325 Mg) 1 tab Q3H PRN PO PAIN 3<10 Last administered on 11/08/16 10:36; Start 11/07/16 at 18:00; Stop 11/08/16 at 13:04; Status DC Morphine Sulfate (Morphine Inj) 4 mg Q3H PRN IV PUSH Break thru Pain Last administered on 11/08/16 07:50; Start 11/07/16 at 18:00; Stop 11/08/16 at 12:21 ; Status DC Ketorolac Tromethamine (Toradol Inj) 30 mg Q12H IVP Last administered on 05:32; Start 11/07/16 at 18:00; Stop 11/10/16 at 06:01; Status DC Bacitracin (Baciguent Oint) 15 applic STK-MED ONCE .ROUTE Last administered on 11/07/16 18:09; Start 11/07/16 at 18:09; Stop 11/07/16 at 18:10; Status DC Miscellaneous Information ALL NURSING DEPARTME... UNSCH PRN .XX SEE LABEL COMMENTS; Start 11/07/16 at 18:33; Stop 11/08/16 at 18:32; Status DC Acetaminophen (Tylenol) 650 mg Q4H PRN PO Temp > 100.4, pain 1-2; Start at 08:15 Magnesium Hydroxide (Milk Of Magnesia Liq) 30 ml DAILY PRN PO for Severe Constipation Last administered on 11/09/16 20:15; Start 11/08/16 at 08:15; Stop 11/10/16 at 09:00; Status DC Calcium Carbonate (Tums Chew) 1,000 mg TID PRN CHEW DYSPEPSIA Last administered on 01/09/17 22:36; Start 11/08/16 at 08:15 Dextrose (D50w (Vial) Inj) 50 ml UNSCH PRN IV HYPOGLYCEMIA-SEE COMMENTS; Start 11/08/16 at 08:15; Stop 12/03/16 at 09:16; Status DC Glucagon (Glucagon Inj) 1 mg UNSCH PRN OTHER HYPOGLYCEMIA-SEE COMMENTS; Start 11/08/16 at 08:15; Stop 12/03/16 at 09:16; Status DC Insulin Aspart (NovoLOG SUPPLEMENTAL SCALE) 1 ACHS SLIDING SCALE SQ Last administered on 12/01/16 13:21; Start 11/08/16 at 11:00; Stop 12/03/16 at 09:16 ; Status DC Enalaprilat (Vasotec Inj) 1.25 mg Q6H PRN IV SBP> OR = 180, DBP> OR = 100; Start 11/08/16 at 08:15 Clonidine (Catapres) 0.1 mg Q6H PRN PO SBP> OR = 180, DBP> OR = 100; Start at 08:15 Gabapentin (Neurontin) 400 mg TID PO Last administered on 11/16/16 09:10; Start 11/08/16 at 13:00; Stop 11/16/16 at 11:46; Status DC Morphine Sulfate (Morphine Inj) 6 mg Q3H PRN IV PUSH PAIN 6-10 Last administered on 11/17/16 15:09; Start 11/08/16 at 15:00; Stop 11/18/16 at 16:37 ; Status DC Aspirin (Aspirin Chew) 81 mg DAILY CHEW Last administered on 01/14/17 08:46; Start 11/08/16 at 12:45 Ferrous Sulfate (Ferrous Sulfate) 325 mg DAILY PO Last administered on 08:11; Start 11/08/16 at 12:45; Stop 12/05/16 at 09:25; Status DC Lisinopril (Prinivil) 25 mg DAILY PO Last administered on 11/18/16 09:59; Start 11/08/16 at 12:45; Status Future Hold Nitroglycerin (Nitrostat Sl) 0.4 mg Q6HR PRN SL CHEST PAIN; Start 11/08/16 at 12:45 Pantoprazole Sodium (Protonix) 40 mg DAILY PO Last administered on 01/14/17 08 :47; Start 11/08/16 at 12:45 Pravastatin Sodium (Pravachol) 80 mg HS PO Last administered on 01/13/17 22:20 ; Start 11/08/16 at 21:00 Propranolol HCl (Inderal) 80 mg Q12HR PO Last administered on 11/18/16 10:01; Start 11/08/16 at 21:00; Stop 11/22/16 at 12:49; Status DC Miscellaneous (Pill Splitter) 1 ea UNSCH PRN OTHER SEE LABEL COMMENTS; Start at 12:45 Senna/Docusate Sodium (Elke-Colace) 1 tab BID PO Last administered on 09:30; Start 11/08/16 at 12:45; Status Future hold Lactulose (Lactulose Liq) 30 ml DAILY PRN PO No BM in 2 days; Start 11/08/16 at 12:45; Stop 11/10/16 at 07:47; Status DC Acetaminophen/ Hydrocodone Bitart ([place] 10-325 Mg) 1.5 tab Q3H PRN PO PAIN 3- 10 Last administered on 11/09/16 23:46; Start 11/08/16 at 15:00; Stop 11/10/16 at 12:45; Status DC Folic Acid (Folate) 1 mg DAILY PO Last administered on 11/12/16 09:14; Start 11/09/16 at 09:00; Stop 11/14/16 at 08:59; Status DC Thiamine HCl (Vitamin B1) 100 mg DAILY PO Last administered on 01/14/17 08:46 ; Start 11/09/16 at 09:00 Multivitamins/ Minerals Therapeutic (Theragran M Tab) 1 tab DAILY PO Last administered on 11/12/16 09:13; Start 11/09/16 at 09:00; Stop 11/14/16 at 08:59 ; Status DC Flumazenil (Romazicon Inj) 0.2 mg Q1M PRN IV PUSH SEE LABEL COMMENTS; Start at 13:00 Lorazepam (Ativan) 1 mg Q4H PRN PO CIWA 8 - 10; Start 11/08/16 at 13:00; Stop 11/26/16 at 16:05; Status DC Lorazepam (Ativan Inj) 1 mg Q4H PRN IV PUSH CIWA 8 - 10; Start 11/08/16 at 13: 00; Stop 11/26/16 at 16:05; Status DC Lorazepam (Ativan) 2 mg Q2H PRN PO CIWA 11-14; Start 11/08/16 at 13:00; Stop at 16:05; Status DC Lorazepam (Ativan Inj) 2 mg Q2H PRN IV PUSH CIWA 11-14; Start 11/08/16 at 13:00 ; Stop 11/26/16 at 16:05; Status DC Lorazepam (Ativan Inj) 2 mg Q1H PRN IV PUSH CIWA 15-20; Start 11/08/16 at 13:00 ; Stop 11/26/16 at 16:05; Status DC Lorazepam (Ativan Inj) 2 mg Q15M PRN IV PUSH CIWA > 20; Start 11/08/16 at 13:00 ; Stop 11/26/16 at 16:05; Status DC Haloperidol Lactate (Haldol Inj) 2 mg Q15M PRN IM SEE LABEL COMMENTS; Start at 13:00 Lactated Ringer's 1,000 ml @ 30 mls/hr Q24H PRN IV SEE LABEL COMMENTS; Start at 00:45; Stop 11/09/16 at 12:05; Status DC Sodium Chloride 500 ml @ 30 mls/hr [id number] PRN IV SEE LABEL COMMENTS; Start at 00:45; Stop 11/09/16 at 12:05; Status DC Metoprolol Tartrate (Lopressor) 25 mg 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 PRN PO SEE LABEL COMMENTS; Start 11/09/16 at 00:45; Stop 11/12/16 at 00:44; Status DC Povidone Iodine (Betadine 5% Antisepsis Kit) 1 applic 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 PRN EACH NARE SEE LABEL COMMENTS; Start 11/09/16 at 00:45; Stop 11/12/16 at 00:44; Status DC Chlorhexidine Gluconate (Chlorhexidine 2% Cloth) 3 pack 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 PRN TOPICAL SEE LABEL COMMENTS; Start 11/09/16 at 00:45; Stop 11/09/16 at 12:05; Status DC Insulin Human Regular (NovoLIN R INJ) See Protocol Table ... 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 PRN SQ SEE PROTOCOL TABLE; Start 11/09/16 at 00:45; Stop 11/12/16 at 00:44; Status DC Potassium Chloride (KCl) 20 meq ONCE ONCE PO Last administered on 11/09/16 11 :40; Start 11/09/16 at 11:00; Stop 11/09/16 at 11:01; Status DC Neomycin/ Polymyxin/ Bacitracin (Neosporin Oint) 1 applic DAILY TOPICAL Last administered on 01/10/17 09:00; Start 11/10/16 at 09:00 Lactulose (Lactulose Liq) 30 ml DAILY PO Last administered on 12/02/16 09:18; Start 11/10/16 at 09:00; Stop 12/08/16 at 09:52; Status DC Magnesium Hydroxide (Milk Of Magnesia Liq) 30 ml HS PO Last administered on 22:21; Start 11/10/16 at 21:00; Status Future hold Famotidine (Pepcid Inj) 20 mg STK-MED ONCE .ROUTE Last administered on 08:51; Start 11/10/16 at 08:51; Stop 11/10/16 at 08:52; Status DC Albuterol Sulfate (Albuterol Neb) 2.5 mg STK-MED ONCE .ROUTE Last administered on 11/10/16 08:55; Start 11/10/16 at 08:53; Stop 11/10/16 at 08:54; Status DC Gentamicin Sulfate (Gentamicin Inj) 240 mg STK-MED ONCE .ROUTE Last administered on 11/10/16 09:48; Start 11/10/16 at 09:02; Stop 11/10/16 at 09:03 ; Status DC Acetaminophen (Ofirmev Inj) 1,000 mg STK-MED ONCE IV ; Start 11/10/16 at 09:13; Stop 11/10/16 at 09:14; Status DC Lactated Ringer's 1,000 ml @ 100 mls/hr Q10H IV Last administered on 00:53; Start 11/10/16 at 13:00; Stop 11/11/16 at 11:56; Status DC Enoxaparin Sodium (Lovenox Inj) 30 mg Q12H SQ Last administered on 12/04/16 00 :03; Start 11/11/16 at 00:00; Stop 12/04/16 at 09:43; Status DC Cefazolin Sodium/ Dextrose 50 ml @ 100 mls/hr Q8H IV Last administered on 11/13 00:05; Start 11/10/16 at 16:00; Stop 11/13/16 at 08:29; Status DC Gentamicin Sulfate/Sodium Chloride 100 ml @ 200 mls/hr Q8H IV Last administered on 11/13/16 10:00; Start 11/10/16 at 18:00; Stop 11/13/16 at 10:29 ; Status DC Acetaminophen/ Hydrocodone Bitart ([place] 10-325 Mg) 1 tab Q3H PRN PO PAIN 3<10 Last administered on 11/18/16 04:34; Start 11/10/16 at 11:45; Stop 11/18/16 at 16 :37; Status DC Calcium/Vitamin D (Oscal-D 250-125) 250 mg TID PO Last administered on 08:46; Start 11/10/16 at 13:00 Meperidine HCl (*DEMEROL INJ PERIprocedural ONLY) 25 mg STK-MED ONCE .ROUTE Last administered on 11/10/16 12:36; Start 11/10/16 at 12:36; Stop 11/10/16 at 12:37; Status DC Miscellaneous Information ALL NURSING DEPARTME... UNSCH PRN .XX SEE LABEL COMMENTS; Start 11/10/16 at 12:29; Stop 11/11/16 at 12:28; Status DC Midazolam HCl (Versed Inj) 2 mg STK-MED ONCE .ROUTE ; Start 11/10/16 at 12:48; Stop 11/10/16 at 12:49; Status DC Fentanyl Citrate (fentaNYL INJ) 250 mcg STK-MED ONCE .ROUTE ; Start 11/10/16 at 12:48; Stop 11/10/16 at 12:49; Status DC Morphine Sulfate (*morphine INJ PERIprocedure ONLY) 8 mg STK-MED ONCE .ROUTE Last administered on 11/10/16 14:36; Start 11/10/16 at 14:36; Stop 11/10/16 at 14:37; Status DC Bisacodyl (Dulcolax Ec) 10 mg ONCE ONCE PO Last administered on 11/11/16 10: 17; Start 11/11/16 at 07:00; Stop 11/11/16 at 07:04; Status DC Bisacodyl (Dulcolax Supp) 10 mg ONCE ONCE RECTAL Last administered on 10:17; Start 11/11/16 at 07:00; Stop 11/11/16 at 07:04; Status DC Sodium Chloride 250 ml @ 15 mls/hr ONCE ONCE IV Last administered on 7/26/ 17at 11:19; Start 11/11/16 at 11:15; Stop 11/12/16 at 03:54; Status DC Furosemide (Lasix Inj) 20 mg ONCE ONCE IV ; Start 11/11/16 at 11:15; Stop 11/11 at 11:16; Status Cancel Furosemide (Lasix Inj) 20 mg ONCE ONCE IV Last administered on 11/12/16t 11:18 ; Start 11/12/16 at 11:00; Stop 11/12/16 at 11:01; Status DC Albuterol/ Ipratropium (Duoneb Neb) 1 ampule Q4HR NEB PRN NEB wheezing; Start 11/12/16 at 13:15 Lactated Ringer's 1,000 ml @ 30 mls/hr Q24H PRN IV SEE LABEL COMMENTS; Start at 05:00; Stop 11/16/16 at 04:59; Status Cancel Sodium Chloride 500 ml @ 30 mls/hr [id number] PRN IV SEE LABEL COMMENTS; Start at 05:00; Stop 11/16/16 at 04:59; Status DC Metoprolol Tartrate (Lopressor) 25 mg 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 PRN PO SEE LABEL COMMENTS; Start 11/13/16 at 05:00; Stop 11/16/16 at 04:59; Status DC Povidone Iodine (Betadine 5% Antisepsis Kit) 1 applic 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 PRN EACH NARE SEE LABEL COMMENTS; Start 11/13/16 at 05:00; Stop 11/16/16 at 04:59; Status DC Chlorhexidine Gluconate (Chlorhexidine 2% Cloth) 3 pack 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 PRN TOPICAL SEE LABEL COMMENTS; Start 11/13/16 at 05:00; Stop 11/16/16 at 04:59; Status DC Lidocaine HCl (Xylocaine 2% Jelly) 30 applic STK-MED ONCE .ROUTE ; Start at 07:15; Stop 11/13/16 at 07:16; Status DC Mineral Oil (Muri-Lube Oil) 10 ml STK-MED ONCE .ROUTE ; Start 11/13/16 at 07:15 ; Stop 11/13/16 at 07:16; Status DC Gentamicin Sulfate (Gentamicin Inj) 240 mg STK-MED ONCE .ROUTE Last administered on 11/13/16 08:20; Start 11/13/16 at 07:15; Stop 11/13/16 at 07:16 ; Status DC Albuterol Sulfate (Albuterol Neb) 2.5 mg STK-MED ONCE .ROUTE ; Start 11/13/16 at 07:34; Stop 11/13/16 at 07:35; Status DC Dexamethasone Sodium Phosphate (Decadron Inj) 4 mg STK-MED ONCE .ROUTE ; Start 11/13/16 at 07:36; Stop 11/13/16 at 07:37; Status DC Famotidine (Pepcid Inj) 20 mg STK-MED ONCE .ROUTE ; Start 11/13/16 at 07:36; Stop 11/13/16 at 07:37; Status DC Albuterol/ Ipratropium (Duoneb Neb) 1 ampule STK-MED ONCE .ROUTE Last administered on 11/13/16 07:50; Start 11/13/16 at 07:47; Stop 11/13/16 at 07:48 ; Status DC Lactated Ringer's 1,000 ml @ 100 mls/hr Q10H IV Last administered on 12:14; Start 11/13/16 at 08:42; Stop 11/18/16 at 16:33; Status DC Cefazolin Sodium/ Dextrose 50 ml @ 100 mls/hr Q8H IV Last administered on 04:43; Start 11/13/16 at 12:00; Stop 11/20/16 at 11:59; Status DC Gentamicin Sulfate/Sodium Chloride 100 ml @ 200 mls/hr Q8H IV Last administered on 11/16/16 09:14; Start 11/13/16 at 18:00; Stop 11/16/16 at 17:59 ; Status DC Midazolam HCl (Versed Inj) 2 mg STK-MED ONCE .ROUTE ; Start 11/13/16 at 09:25; Stop 11/13/16 at 09:26; Status DC Fentanyl Citrate (fentaNYL INJ) 250 mcg STK-MED ONCE .ROUTE ; Start 11/13/16 at 09:25; Stop 11/13/16 at 09:26; Status DC Zolpidem Tartrate (Ambien) 5 mg HS PRN PO Insomnia Last administered on 22:24; Start 11/14/16 at 11:00 Trazodone HCl (Desyrel) 100 mg HS PO Last administered on 01/13/17 22:19; Start 11/14/16 at 21:00 Morphine Sulfate (Oramorph Sr) 15 mg Q12HR PO Last administered on 11/18/16 10: 00; Start 11/16/16 at 21:00; Stop 11/18/16 at 16:36; Status DC Morphine Sulfate (Oramorph Sr) 15 mg ONCE ONCE PO Last administered on 12:32; Start 11/16/16 at 10:15; Stop 11/16/16 at 10:24; Status DC Gabapentin (Neurontin) 600 mg TID PO Last administered on 01/14/17 08:45; Start 11/16/16 at 13:00 Sodium Chloride 1,000 ml @ 999 mls/hr BOLUS ONCE IV Last administered on 17:22; Start 11/18/16 at 16:45; Stop 11/18/16 at 17:45; Status DC Morphine Sulfate (Oramorph Sr) 30 mg Q12HR PO Last administered on 11/29/16 09 :24; Start 11/18/16 at 21:00; Stop 11/29/16 at 14:26; Status DC Morphine Sulfate (Morphine Inj) 6 mg Q4H PRN IV PUSH PAIN SCALE 5 TO 10 Last administered on 11/19/16 05:59; Start 11/18/16 at 16:45; Stop 11/20/16 at 00:46; Status DC Morphine Sulfate (Morphine Inj) 3 mg Q3H PRN IV PUSH PAIN SCALE 1 TO 4 Last administered on 11/19/16 16:36; Start 11/18/16 at 16:45; Stop 11/20/16 at 00:46; Status DC Sodium Chloride 1,000 ml @ 125 mls/hr Q8H IV Last administered on 11/19/16 16: 15; Start 11/19/16 at 00:15; Stop 11/19/16 at 19:21; Status DC Sodium Chloride 500 ml @ 500 mls/hr BOLUS ONCE IV Last administered on 00:15; Start 11/19/16 at 00:15; Stop 11/19/16 at 01:14; Status DC Nystatin (Mycostatin Powder) 1 applic Q12HR TOPICAL Last administered on 08:54; Start 11/19/16 at 21:00; Stop 11/28/16 at 13:46; Status DC Acetaminophen/ Hydrocodone Bitart ([place] 7.5-325 Mg) 1 tab Q4H PRN PO PAIN SCALE 1 TO 4; Start 11/20/16 at 00:45; Stop 11/28/16 at 13:46; Status DC Acetaminophen/ Hydrocodone Bitart ([place] 10-325 Mg) 1 tab Q4H PRN PO PAIN SCALE 3-5 Last administered on 12/23/16 08:58; Start 11/20/16 at 00:45 Hydromorphone HCl (Dilaudid Pf Inj) 1 mg Q4H PRN IV PUSH BREAKTHROUGH PAIN Last administered on 12/17/16 10:38; Start 11/20/16 at 00:45; Stop 12/18/16 at 10:47; Status DC Propranolol HCl (Inderal) 40 mg Q12HR PO Last administered on 12/08/16 08:01; Start 11/22/16 at 21:00; Stop 12/08/16 at 10:00; Status DC Lactated Ringer's 1,000 ml @ 30 mls/hr Q24H PRN IV SEE LABEL COMMENTS; Start at 02:45; Stop 11/27/16 at 02:44; Status DC Sodium Chloride 500 ml @ 30 mls/hr [id number] PRN IV SEE LABEL COMMENTS; Start 11/24/16 at 02:45; Stop 11/27/16 at 02:44; Status DC Povidone Iodine (Betadine 5% Antisepsis Kit) 1 applic 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 PRN EACH NARE SEE LABEL COMMENTS; Start 11/24/16 at 02:45; Stop 11/27/16 at 02:44; Status DC Chlorhexidine Gluconate (Chlorhexidine 2% Cloth) 3 pack 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 PRN SQ SEE PROTOCOL TABLE; Start 11/24/16 at 02:45; Stop 11/27/16 at 02:44; Status DC Prochlorperazine Edisylate (Compazine Inj) 10 mg Q8H PRN IV PUSH NAUSEA/ VOMITING Last administered on 11/25/16 18:00; Start 11/25/16 at 16:15 Sodium Chloride 500 ml @ 500 mls/hr BOLUS ONCE IV Last administered on 18:06; Start 11/25/16 at 17:00; Stop 11/25/16 at 17:59; Status DC Gentamicin Sulfate (Gentamicin Inj) 240 mg STK-MED ONCE .ROUTE Last administered on 11/28/16 10:42; Start 11/28/16 at 07:18; Stop 11/28/16 at 07:19 ; Status DC Vancomycin HCl (Vancomycin Inj) 1,000 mg STK-MED ONCE .ROUTE Last administered on 12/09/16 15:25; Start 11/28/16 at 07:38; Stop 11/28/16 at 07:39; Status DC Cefazolin Sodium/ Dextrose 50 ml @ As Directed STK-MED ONCE .ROUTE Last administered on 12/09/16 15:20; Start 11/28/16 at 07:38; Stop 11/28/16 at 07:39 ; Status DC Sodium Chloride 250 ml @ As Directed STK-MED ONCE .ROUTE ; Start 11/28/16 at 07 :39; Stop 11/28/16 at 07:40; Status DC Fentanyl Citrate (fentaNYL INJ) 250 mcg STK-MED ONCE .ROUTE ; Start 11/28/16 at 10:15; Stop 11/28/16 at 10:16; Status DC Cefazolin Sodium (Ancef Inj) 1,000 mg STK-MED ONCE .ROUTE Last administered on 11/28/16 10:31; Start 11/28/16 at 10:23; Stop 11/28/16 at 10:24; Status DC Lactated Ringer's 1,000 ml @ 100 mls/hr Q10H IV ; Start 11/28/16 at 10:59; Stop 12/03/16 at 09:16; Status DC Cefazolin Sodium/ Dextrose 50 ml @ 100 mls/hr Q8H IV Last administered on 12/01 06:46; Start 11/28/16 at 15:00; Stop 12/01/16 at 14:59; Status DC Magnesium Hydroxide (Milk Of Magnfidencio Liq) 30 ml Q12H PRN PO MILD - MODERATE CONSTIPATION Last administered on 12/26/16 10:08; Start 11/28/16 at 11:30 Sennosides (Senokot) 17.2 mg Q12H PRN PO MODERATE - SEVERE CONSTIPATION Last administered on 12/25/16 09:48; Start 11/28/16 at 11:30 Bisacodyl (Dulcolax Supp) 10 mg DAILY PRN RECTAL SEVERE CONSITIPATION Last administered on 12/11/16 12:30; Start 11/28/16 at 11:30 Albuterol Sulfate (*ALBUTEROL NEB PERIprocedure ONLY) 2.5 mg STK-MED ONCE NEB Last administered on 11/28/16 11:38; Start 11/28/16 at 11:38; Stop 11/28/16 at 11:39; Status DC Dexamethasone Sodium Phosphate (Decadron Inj) 4 mg STK-MED ONCE .ROUTE ; Start 11/28/16 at 11:51; Stop 11/28/16 at 11:52; Status DC Dexamethasone Sodium Phosphate (Decadron Inj) 4 mg NOW ONCE IV Last administered on 11/28/16 12:00; Start 11/28/16 at 12:00; Stop 11/28/16 at 12:01 ; Status DC Miscellaneous Information ALL NURSING DEPARTME... UNSCH PRN .XX SEE LABEL COMMENTS; Start 11/28/16 at 11:22; Stop 11/29/16 at 11:21; Status DC Morphine Sulfate (*morphine INJ PERIprocedure ONLY) 8 mg STK-MED ONCE .ROUTE Last administered on 11/28/16 12:01; Start 11/28/16 at 12:01; Stop 11/28/16 at 12:02; Status DC Acetaminophen/ Hydrocodone Bitart ([place] 10-325 Mg) 1.5 tab Q4H PRN PO pain 6- 10 Last administered on 12/23/16 17:35; Start 11/28/16 at 15:00; Stop 12/23/16 at 18:38; Status DC Nystatin (Mycostatin Cream) 1 applic Q6HR TOPICAL Last administered on 05:00; Start 11/28/16 at 14:00; Stop 12/16/16 at 13:46; Status DC Morphine Sulfate (Oramorph Sr) 30 mg Q8HR PO Last administered on 12/03/16 06: 09; Start 11/29/16 at 22:00; Stop 12/03/16 at 12:16; Status DC Cetirizine HCl (ZyrTEC) 10 mg HS PO Last administered on 12/07/16 20:03; Start 12/01/16 at 21:00; Stop 12/08/16 at 20:59; Status DC Fluticasone Propionate (Flonase Jerzy Spr) 2 spray DAILY EACH NARE Last administered on 12/15/16 08:54; Start 12/01/16 at 11:00; Stop 12/15/16 at 10:59 ; Status DC Folic Acid (Folate) 1 mg DAILY PO Last administered on 01/14/17 08:45; Start 12/03/16 at 09:00 Morphine Sulfate (Oramorph Sr) 30 mg Q8HR PO Last administered on 01/14/17 06: 22; Start 12/03/16 at 14:00 Lactobacillus Acidophilus (Lactinex) 1 tab TID PO Last administered on 08:10; Start 12/04/16 at 09:00; Stop 12/05/16 at 09:26; Status DC Enoxaparin Sodium (Lovenox Inj) 40 mg DAILY SQ Last administered on 01/14/17 08:45; Start 12/05/16 at 09:00 Al Hydrox/Mg Hydrox/Simethicone (Mag-Al Plus Susp Liq) 30 ml ONCE ONCE PO Last administered on 12/04/16 11:55; Start 12/04/16 at 11:45; Stop 12/04/16 at 11:50; Status DC Al Hydrox/Mg Hydrox/Simethicone (Mag-Al Plus Susp Liq) 30 ml Q6HR PRN PO HEARTBURN, INDIGESTION Last administered on 01/06/17 11:29; Start 12/04/16 at 18:00 Sucralfate (Carafate Liq) 1 gm QID PO Last administered on 12/16/16 13:41; Start 12/05/16 at 09:00; Stop 12/16/16 at 13:43; Status DC Lactobacillus Acidophilus (Lactinex) 1 tab BID PO Last administered on 09:36; Start 12/05/16 at 21:00; Stop 12/18/16 at 10:47; Status DC Polyethylene Glycol (Miralax) 17 gm DAILY PRN PO CONSTIPATION; Start 12/08/16 at 10:00; Stop 12/11/16 at 15:18; Status DC Propranolol HCl (Inderal) 20 mg Q12HR PO Last administered on 12/09/16 20:34; Start 12/08/16 at 21:00; Stop 12/10/16 at 07:34; Status DC Lactated Ringer's 1,000 ml @ 30 mls/hr Q24H PRN IV SEE LABEL COMMENTS; Start at 01:30; Stop 12/12/16 at 01:29; Status DC Sodium Chloride 500 ml @ 30 mls/hr [id number] PRN IV SEE LABEL COMMENTS; Start at 01:30; Stop 12/12/16 at 01:29; Status DC Povidone Iodine (Betadine 5% Antisepsis Kit) 1 applic 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 PRN EACH NARE SEE LABEL COMMENTS; Start 12/09/16 at 01:30; Stop 12/12/16 at 01:29; Status DC Chlorhexidine Gluconate (Chlorhexidine 2% Cloth) 3 pack 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 PRN TOPICAL SEE LABEL COMMENTS; Start 12/09/16 at 01:30; Stop 12/12/16 at 01:29; Status DC Insulin Human Regular (NovoLIN R INJ) See Protocol Table ... 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 PRN SQ SEE PROTOCOL TABLE; Start 12/09/16 at 01:30; Stop 12/12/16 at 01:29; Status DC Bupivacaine HCl/ Epinephrine Bitart (Sensorcaine-Epinephrine 0.25% Inj) 50 ml STK-MED ONCE .ROUTE ; Start 12/09/16 at 14:07; Stop 12/09/16 at 14:08; Status DC Mineral Oil (Muri-Lube Oil) 10 ml STK-MED ONCE .ROUTE ; Start 12/09/16 at 14:07 ; Stop 12/09/16 at 14:08; Status DC Gentamicin Sulfate (Gentamicin Inj) 240 mg STK-MED ONCE .ROUTE Last administered on 12/09/16 15:31; Start 12/09/16 at 14:07; Stop 12/09/16 at 14:08 ; Status DC Vancomycin HCl (Vancomycin Inj) 1,000 mg STK-MED ONCE .ROUTE ; Start 12/09/16 at 15:06; Stop 12/09/16 at 15:07; Status DC Cefazolin Sodium/ Dextrose 50 ml @ As Directed STK-MED ONCE .ROUTE ; Start 12/09 at 15:06; Stop 12/09/16 at 15:07; Status DC Lactated Ringer's 1,000 ml @ 100 mls/hr Q10H IV ; Start 12/09/16 at 15:57; Stop 12/16/16 at 13:45; Status DC Cefazolin Sodium/ Dextrose 50 ml @ 100 mls/hr Q8H IV Last administered on 12/16 13:42; Start 12/09/16 at 20:00; Stop 12/16/16 at 19:59; Status DC Gentamicin Sulfate/Sodium Chloride 100 ml @ 200 mls/hr Q8H IV Last administered on 12/12/16 12:25; Start 12/09/16 at 21:00; Stop 12/12/16 at 20:59 ; Status DC Morphine Sulfate (*morphine INJ PERIprocedure ONLY) 8 mg STK-MED ONCE .ROUTE Last administered on 12/09/16 16:32; Start 12/09/16 at 16:32; Stop 12/09/16 at 16:33; Status DC Fentanyl Citrate (fentaNYL INJ) 250 mcg STK-MED ONCE .ROUTE ; Start 12/09/16 at 16:33; Stop 12/09/16 at 16:34; Status DC Miscellaneous Information ALL NURSING DEPARTME... UNSCH PRN .XX SEE LABEL COMMENTS; Start 12/09/16 at 16:20; Stop 12/10/16 at 16:19; Status DC Morphine Sulfate (*morphine INJ PERIprocedure ONLY) 8 mg STK-MED ONCE .ROUTE Last administered on 12/09/16 17:01; Start 12/09/16 at 17:01; Stop 12/09/16 at 17:02; Status DC Propranolol HCl (Inderal) 10 mg Q12HR PO Last administered on 12/13/16 09:42; Start 12/10/16 at 09:00; Stop 12/13/16 at 10:32; Status DC Menthol/Methyl Salicylate (Aleks Daniels Oint) 1 applic UNSCH PRN TOPICAL arthritic pain Last administered on 12/12/16 17:51; Start 12/11/16 at 15:30 Propranolol HCl (Inderal) 20 mg Q12HR PO ; Start 12/13/16 at 21:00; Stop at 21:00; Status DC Propranolol HCl (Inderal) 10 mg Q12HR PO Last administered on 01/14/17 08:46; Start 12/13/16 at 21:00 Bacitracin (Baciguent Oint) 1 applic DAILY PRN TOPICAL WOUND VAC DRESSING CHANGE; Start 12/15/16 at 12:30 Sucralfate (Carafate Liq) 1 gm BID PO Last administered on 12/30/16 08:30; Start 12/16/16 at 21:00; Stop 12/30/16 at 20:59; Status DC Lidocaine HCl (Lidoderm 5% Patch.12 Hr) 1 patch DAILY T-DERMAL Last administered on 12/18/16 11:33; Start 12/18/16 at 10:00; Stop 12/19/16 at 19:35 ; Status DC Miscellaneous Information 1 Q24H T-DERMAL ; Start 12/18/16 at 21:00; Stop at 19:35; Status DC Lactobacillus Acidophilus (Lactinex) 1 tab TID PO Last administered on 08:45; Start 12/18/16 at 13:00 Lidocaine HCl (Lidoderm 5% Patch.12 Hr) 1 patch HS T-DERMAL Last administered on 01/03/17 20:55; Start 12/19/16 at 21:00 Miscellaneous Information 1 Q24H T-DERMAL Last administered on 12/24/16 09:00; Start 12/20/16 at 09:00 Propofol (Diprivan 200 Mg/20 ml Inj) 200 mg STK-MED ONCE IV ; Start 11/07/16 at 12:00; Stop 12/23/16 at 10:36; Status DC Ephedrine Sulfate (ePHEDrine/NS 25 MG/5 ML SYR) 50 mg STK-MED ONCE IV ; Start at 12:00; Stop 12/23/16 at 10:36; Status DC Neostigmine Methylsulfate (Prostigmin Inj) 3 mg STK-MED ONCE IV ; Start at 12:00; Stop 12/23/16 at 10:36; Status DC Phenylephrine HCl (Neosynephrine/ NS 1000 Mcg/10ml Syr) 1,000 mcg STK-MED ONCE IV ; Start 11/07/16 at 12:00; Stop 12/23/16 at 10:37; Status DC Ondansetron HCl (Zofran Inj) 4 mg STK-MED ONCE IV PUSH ; Start 11/07/16 at 12:00 ; Stop 12/23/16 at 10:37; Status DC Lactated Ringer's 1,000 ml @ As Directed STK-MED ONCE IV ; Start 11/07/16 at 12 :00; Stop 12/23/16 at 10:37; Status DC Parenteral Electrolytes 1,000 ml @ As Directed STK-MED ONCE IV ; Start at 12:00; Stop 12/23/16 at 10:37; Status DC Propofol (Diprivan 200 Mg/20 ml Inj) 400 mg STK-MED ONCE IV ; Start 11/10/16 at 12:00; Stop 12/23/16 at 12:04; Status DC Phenylephrine HCl (Neosynephrine/ NS 1000 Mcg/10ml Syr) 2,000 mcg STK-MED ONCE IV ; Start 11/10/16 at 12:00; Stop 12/23/16 at 12:04; Status DC Ondansetron HCl (Zofran Inj) 4 mg STK-MED ONCE IV PUSH ; Start 11/10/16 at 12:00 ; Stop 12/23/16 at 12:04; Status DC Lactated Ringer's 1,000 ml @ As Directed STK-MED ONCE IV ; Start 11/10/16 at 12 :00; Stop 12/23/16 at 12:04; Status DC Propofol (Diprivan 200 Mg/20 ml Inj) 200 mg STK-MED ONCE IV ; Start 11/13/16 at 12:00; Stop 12/23/16 at 12:38; Status DC Ephedrine Sulfate (ePHEDrine/NS 25 MG/5 ML SYR) 25 mg STK-MED ONCE IV ; Start at 12:00; Stop 12/23/16 at 12:38; Status DC Phenylephrine HCl (Neosynephrine/ NS 1000 Mcg/10ml Syr) 1,000 mcg STK-MED ONCE IV ; Start 11/13/16 at 12:00; Stop 12/23/16 at 12:38; Status DC Ondansetron HCl (Zofran Inj) 4 mg STK-MED ONCE IV PUSH ; Start 11/13/16 at 12:00 ; Stop 12/23/16 at 12:38; Status DC Lactated Ringer's 1,000 ml @ As Directed STK-MED ONCE IV ; Start 11/13/16 at 12 :00; Stop 12/23/16 at 12:38; Status DC Neostigmine Methylsulfate (Prostigmin Inj) 3 mg STK-MED ONCE IV ; Start at 12:00; Stop 12/23/16 at 12:38; Status DC Propofol (Diprivan 200 Mg/20 ml Inj) 200 mg STK-MED ONCE IV ; Start 11/28/16 at 12:00; Stop 12/23/16 at 12:50; Status DC Ephedrine Sulfate (ePHEDrine/NS 25 MG/5 ML SYR) 25 mg STK-MED ONCE IV ; Start at 12:00; Stop 12/23/16 at 12:50; Status DC Ondansetron HCl (Zofran Inj) 4 mg STK-MED ONCE IV PUSH ; Start 11/28/16 at 12:00 ; Stop 12/23/16 at 12:50; Status DC Propofol (Diprivan 200 Mg/20 ml Inj) 200 mg STK-MED ONCE IV ; Start 12/09/16 at 12:00; Stop 12/23/16 at 14:38; Status DC Ephedrine Sulfate (ePHEDrine/NS 25 MG/5 ML SYR) 50 mg STK-MED ONCE IV ; Start at 12:00; Stop 12/23/16 at 14:38; Status DC Ondansetron HCl (Zofran Inj) 4 mg STK-MED ONCE IV PUSH ; Start 12/09/16 at 12:00 ; Stop 12/23/16 at 14:38; Status DC Acetaminophen/ Hydrocodone Bitart ([place] 10-325 Mg) 2 tab Q4H PRN PO pain 6-10 Last administered on 01/14/17 08:46; Start 12/23/16 at 18:45 Vancomycin HCl 5000 mg/Sodium Chloride 3,000 ml @ 10 mls/hr Q24H PRN IRRIGATION DRESSING CHANGE Last administered on 01/08/17 01:36; Start 12/25/16 at 08:00 Diphenhydramine HCl (Benadryl) 12.5 mg Q4H PRN PO itching Last administered on 12/28/16 07:54; Start 12/25/16 at 16:45; Stop 12/28/16 at 13:48; Status DC Ferrous Sulfate (Ferrous Sulfate) 325 mg BID@12,17 PO Last administered on 01/14 10:46; Start 12/26/16 at 12:00 Ascorbic Acid (Vitamin C) 500 mg BID PO Last administered on 01/14/17 08:47; Start 12/26/16 at 09:00 Pharmacy Profile Note 0 ml @ 0 mls/hr UNSCH OTHER ; Start 12/26/16 at 14:45 Vancomycin HCl 1500 mg/Sodium Chloride 515 ml @ 257.5 mls/ hr Q12H IV Last administered on 12/26/16 20:17; Start 12/26/16 at 17:00; Stop 12/27/16 at 04:54; Status DC Miscellaneous Information SPECIFIC LAB TO BE LEANNA... ONCE ONCE .XX ; Start 12/28 at 04:45; Stop 12/28/16 at 04:46; Status Cancel Vancomycin HCl 1500 mg/Sodium Chloride 515 ml @ 257.5 mls/ hr Q12H IV Last administered on 12/29/16 20:50; Start 12/27/16 at 08:00; Stop 12/29/16 at 20:35 ; Status DC Miscellaneous Information SPECIFIC LAB TO BE LEANNA... ONCE ONCE .XX ; Start 12/28 at 07:45; Stop 12/28/16 at 07:46; Status DC Miscellaneous Information SPECIFIC LAB TO BE LEANNA... ONCE ONCE .XX Last administered on 12/29/16 20:45; Start 12/29/16 at 20:45; Stop 12/29/16 at 20:46 ; Status DC Diphenhydramine HCl (Benadryl) 50 mg Q4H PRN PO itching Last administered on 09:30; Start 12/28/16 at 16:45 Vancomycin HCl 1500 mg/Sodium Chloride 515 ml @ 257.5 mls/ hr Q12H IV Last administered on 01/03/17 08:51; Start 12/29/16 at 21:00; Stop 01/03/17 at 22:00 ; Status DC Miscellaneous Information SPECIFIC LAB TO BE DRAWN:VANCO TROUGH DATE TO BE DR... ONCE ONCE .XX Last administered on 12/31/16 08:45; Start 12/31/16 at 08 :45; Stop 12/31/16 at 08:46; Status DC Miscellaneous Information SPECIFIC LAB TO BE LEANNA... ONCE ONCE .XX ; Start 01/03 at 08:45; Stop 01/03/17 at 08:46; Status DC Fluticasone Propionate (Flonase Jerzy Spr) 1 spray BID NASAL Last administered on 01/14/17 08:47; Start 01/02/17 at 21:00 Miscellaneous Information SPECIFIC LAB TO BE DRAWN:VANCOMY... ONCE ONCE .XX Last administered on 01/03/17 20:45; Start 01/03/17 at 20:45; Stop 01/03/17 at 20:46; Status DC Vancomycin HCl 1500 mg/Sodium Chloride 515 ml @ 257.5 mls/ hr Q12H IV Last administered on 01/14/17 10:47; Start 01/03/17 at 22:00 Miscellaneous Information SPECIFIC LAB TO BE LEANNA... ONCE ONCE .XX ; Start 01/04 at 21:45; Stop 01/04/17 at 21:46; Status DC Miscellaneous Information SPECIFIC LAB TO BE LEANNA... ONCE ONCE .XX ; Start 01/05 at 21:45; Stop 01/05/17 at 21:46; Status DC Calcium Carbonate (Tums Chew) 500 mg Q12HR CHEW Last administered on 01/14/17 08:46; Start 01/05/17 at 11:30 Cefazolin Sodium/ Dextrose 50 ml @ As Directed STK-MED ONCE .ROUTE Last administered on 01/09/17 13:01; Start 01/09/17 at 11:31; Stop 01/09/17 at 11:32 ; Status DC Lidocaine HCl (Xylocaine 2% Jelly) 30 applic STK-MED ONCE .ROUTE Last administered on 01/09/17 13:08; Start 01/09/17 at 11:31; Stop 01/09/17 at 11:32 ; Status DC Mineral Oil (Muri-Lube Oil) 10 ml STK-MED ONCE .ROUTE Last administered on 01/09 13:08; Start 01/09/17 at 11:31; Stop 01/09/17 at 11:32; Status DC Gentamicin Sulfate (Gentamicin Inj) 240 mg STK-MED ONCE .ROUTE Last administered on 01/09/17 13:08; Start 01/09/17 at 11:31; Stop 01/09/17 at 11:32 ; Status DC Lactated Ringer's 1,000 ml @ 100 mls/hr Q10H IV Last administered on 14:15; Start 01/09/17 at 13:34 Morphine Sulfate (*morphine INJ PERIprocedure ONLY) 8 mg STK-MED ONCE .ROUTE Last administered on 01/09/17 14:10; Start 01/09/17 at 14:10; Stop 01/09/17 at 14:11; Status DC Miscellaneous Information ALL NURSING DEPARTME... UNSCH PRN .XX SEE LABEL COMMENTS; Start 01/09/17 at 13:52; Stop 01/10/17 at 13:51; Status DC Miscellaneous Information SPECIFIC LAB TO BE LEANNA... ONCE ONCE .XX Last administered on 01/11/17 09:45; Start 01/11/17 at 09:45; Stop 01/11/17 at 09:46 ; Status DC A/P Assessment and Plan A/P Bilateral open tibia-fibula fractures Left tibial plateau fracture - Open fractures have been surgically repaired, right side has external fixation - s/p Removal of external fixation right lower extremity, irrigation debridement of left leg, split-thickness skin graft left leg, application wound VAC dressing on 01/09 - left tibial plateau fracture treated nonoperatively - continue with pain control. -management per ortho MRSA - wound culture 12/23 positive for MRSA -on Vanco- evaluated by ID Acute blood loss anemia JAMAR - Related to trauma vs post op blood loss - Status post transfusion of 2 units of packed red blood cells in 11/12/16. - on iron supplementation daily. - hemoglobin stable - monitor CBC as indicated Coronary artery disease with h/o previous CABG - Appears stable. Patient is asymptomatic. - Continue propranolol and statin - ASA 81mg daily - Clonidine PRN Hypertension - controlled - MARGIE inhibitor held due to hypotension. Diabetes mellitus type 2 - blood sugars well controlled - accu checks discontinued Alcohol abuse Transaminitis, resolved - AST and ALT now within normal range. - Continue with daily thiamine and folic acid - Alcohol cessation recommended Tobacco abuse - Cessation recommended. Chronic essential tremor - Continue Propranolol Allergic rhinitis - Flonase Indigestion -Patient on Protonix and Maalox. DVT prophylaxis with Lovenox Blaine Corrales MD Jan 14, 2017 11:27
[2017-01-14 12:00] VITALS: BP 120/73; PULSE 67; RESP 18; TEMP 97.4; O2SAT 98
[2017-01-14 15:30] VITALS: BP 123/66; PULSE 73; RESP 15; TEMP 97.5; O2SAT 97
[2017-01-14 18:36] VITALS: O2SAT 97
[2017-01-14 19:05] VITALS: BP 109/65; PULSE 73; RESP 16; TEMP 98.6; O2SAT 98
[2017-01-14] MEDS: MAGNESIUM HYDROXIDE SUSP 30 ML CUP PO SCH (21:00)
[2017-01-14] MEDS: LIDOCAINE HCL 5% PATCH T-DERMAL SCH (21:12)
[2017-01-14] MEDS: traZODone HCL 100 MG TAB PO SCH (21:15)
[2017-01-14] MEDS: PRAVASTATIN SOD 80 MG TAB PO SCH (21:15)
[2017-01-14] MEDS: diphenhydrAMINE HCL 50 MG CAP PO PRN (21:21)
[2017-01-15] MEDS: ACETAMINOPHEN/HYDROcodone 325 MG/10 MG TAB PO PRN ×5 (02:45→23:59)
[2017-01-15] MEDS: MORPHINE SULFATE 30 MG CONTROLLED RELEASE TAB PO SCH ×3 (06:13→21:36)
[2017-01-15 08:00] VITALS: BP 127/70; PULSE 83; RESP 18; TEMP 96.2; O2SAT 96
[2017-01-15] MEDS: PANTOPRAZOLE SOD 40 MG DELAYED RELEASE TAB PO SCH (08:46)
[2017-01-15] MEDS: VANCOMYCIN 1,500 MG/NS 500 ML IV SCH ×4 (08:46→21:35)
[2017-01-15] MEDS: ASPIRIN 81 MG CHEW TAB CHEW SCH (08:46)
[2017-01-15] MEDS: ASCORBIC ACID 500 MG TAB PO SCH ×2 (08:46→21:36)
[2017-01-15] MEDS: CALCIUM CARBONATE 500 MG CHEWABLE TAB CHEW SCH ×2 (08:46→21:36)
[2017-01-15] MEDS: CALCIUM/VITAMIN D 250 MG/125 U TAB PO SCH ×3 (08:47→18:39)
[2017-01-15] MEDS: THIAMINE HCL 100 MG TAB PO SCH (08:47)
[2017-01-15] MEDS: ENOXAPARIN SODIUM 40 MG/0.4 ML SYRINGE SQ SCH (08:47)
[2017-01-15] MEDS: PROPRANOLOL HCL 10 MG TAB PO SCH ×2 (08:47→21:36)
[2017-01-15] MEDS: LACTOBACILLUS ACIDOPHILUS TAB PO SCH ×3 (08:47→18:38)
[2017-01-15] MEDS: FOLIC ACID 1 MG TAB PO SCH (08:47)
[2017-01-15] MEDS: GABAPENTIN 300 MG CAP PO SCH ×3 (08:47→18:39)
[2017-01-15] MEDS: SODIUM CHLORIDE 0.9% FLUSH 10 ML FLUSH IV FLUSH SCH ×2 (08:48→21:35)
[2017-01-15] MEDS: NEOMYCIN/POLYMYXIN/BACITRACIN OINT 15 GM TUBE TOPICAL SCH (08:48)
[2017-01-15] MEDS: FLUTICASONE PROPIONATE 50 MCG/ACT 16 GM NASAL SPRAY NASAL SCH ×2 (08:48→21:36)
[2017-01-15] MEDS: DOCUSATE SODIUM 50 MG/SENNA 8.6 MG TAB PO SCH ×2 (08:48→21:35)
[2017-01-15] MEDS: REMOVE OLD LIDOCAINE PATCH T-DERMAL SCH (09:00)
[2017-01-15] MEDS: diphenhydrAMINE HCL 50 MG CAP PO PRN ×2 (09:02→21:36)
--- NOTE | 2017-01-15 09:21 | HHI.PR ---
Subjective Remarks in no distress. pain is controlled. remains afebrile. no new complaints. Objective Vitals Vital Signs Date Time Temp Pulse Resp B/P (MAP) Pulse Ox O2 Delivery O2 Flow Rate FiO2 01/14/17 19:05 98.6 73 16 109/65 (80) 98 01/14/17 18:58 Room Air 01/14/17 18:36 97 01/14/17 15:30 97.5 73 15 123/66 (85) 97 01/14/17 12:00 97.4 67 18 120/73 (89) 98 I/O 01/14/17 01/14/17 01/14/17 01/15/17 01/15/17 01/15/17 07:00 15:00 23:00 07:00 15:00 23:00 Intake Total 1119 ml 800 ml 1220 ml 995 ml Output Total 1475 ml 2100 ml 0 ml 1900 ml Balance -356 ml -1300 ml 1220 ml -905 ml Intake Oral 604 ml 800 ml 720 ml 480 ml IV Total 515 ml 500 ml 515 ml Output Urine Total 1475 ml 2100 ml 1900 ml Drainage Total 0 ml # Voids 4 # Bowel Movements 0 1 1 1 Result Diagram: 01/15/17 0724 Imaging Last Impressions Ankle X-Ray 01/09/17 0000 Signed Impressions: Service Date/Time: Monday, January 09, 2017 12:59 - CONCLUSION: Fluoroscopic images during placement of screws along the distal tibia and single long screw along the distal fibula. Fractures are again seen.. Jac Gonzales MD Tibia/Fibula X-Ray 01/01/17 0000 Signed Impressions: Service Date/Time: December 09:33 - CONCLUSION: There are no complications. Paul Fuentes MD Knee X-Ray 01/01/17 0000 Signed Impressions: Service Date/Time: December 09:37 - CONCLUSION: Lateral tibial plateau fracture without involvement of the articulating surface. Paul Fuentes MD Foot X-Ray 12/27/16 0000 Signed Impressions: Service Date/Time: Tuesday, December 27, 2016 16:50 - CONCLUSION: Distal tibia and fibula fractures with internal fixation hardware. Samir Massey MD Gall Bladder Ultrasound 12/05/16 0000 Signed Impressions: Service Date/Time: Monday, December 05, 2016 08:38 - CONCLUSION: Unremarkable exam. Gallbladder is within normal limits with no evidence of cholelithiasis. Ronald Rao MD Abdomen X-Ray 12/04/16 0000 Signed Impressions: Service Date/Time: November 10:42 - CONCLUSION: Unremarkable bowel gas pattern. Ronald Rao MD Chest X-Ray 11/20/16 0000 Signed Impressions: Service Date/Time: November 17:08 - CONCLUSION: 1. No acute abnormality or significant interval change. Sukhi Stevens MD Pelvis X-Ray 11/07/16 1355 Signed Impressions: Service Date/Time: Monday, November 07, 2016 13:34 - CONCLUSION: No acute disease. Behzad Finch Jr., MD Objective Remarks GENERAL: This is a well-nourished, well-developed patient, in no apparent distress. CARDIOVASCULAR: Regular rate and regular rhythm without murmurs, gallops, or rubs. RESPIRATORY: Clear to auscultation. Breath sounds equal bilaterally. No wheezes , rales, or rhonchi. GASTROINTESTINAL: Abdomen soft, non-tender, nondistended. Normal, active bowel sounds MUSCULOSKELETAL: both legs covered with clean dressing. NEURO: Alert & Oriented x4 to person, place, time, situation. Moves all ext x4 Procedures 1.s/p I&D with ex fix application bilateral tibias s/p wound vac application left tibia 2.With the assistance of RN, under sterile technique the avulsed skin of the right middle finger was clipped. No bleeding noted. Patient gave consent 3.Open reduction internal fixation of right distal tibia and fibula fractures Nonoperative treatment left tibial plateau fracture Irrigation and debridement of left tibia shaft fracture, removal external fixation, soleus muscle rotational flap, intramedullary nail fixation left tibia , application of wound VAC dressing 4.7 Irrigation and debridement of left tibia, application wound VAC dressing 5. 8 Irrigation and debridement of left open tibia fracture with application of wound VAC dressing 6. 8 wound vac change at the bedside 7. 8 wound vac change at the bedside 8. 8 wound vac change at the bedside 9. 8 I&D left tibia, application of wound VAC dressing and application of AlloMax allograft dermal matrix 10. 01/09 Removal of external fixation right lower extremity, irrigation debridement of left leg, split-thickness skin graft left leg, application wound VAC dressing Medications and IVs Current Medications Cefazolin Sodium/ Dextrose 50 ml @ As Directed STK-MED ONCE .ROUTE Last administered on 11/13/16 08:09; Start 11/07/16 at 13:58; Stop 11/07/16 at 13:59 ; Status DC Diphtheria/ Tetanus/Acell Pertussis (Boostrix Inj) 0.5 ml STK-MED ONCE IM ; Start 11/07/16 at 13:58; Stop 11/07/16 at 13:59; Status DC Morphine Sulfate (Morphine Inj) 8 mg STK-MED ONCE .ROUTE ; Start 11/07/16 at 14: 01; Stop 11/07/16 at 14:02; Status DC Hydromorphone HCl (Dilaudid Pf Inj) 1 mg STK-MED ONCE .ROUTE Last administered on 11/07/16 19:15; Start 11/07/16 at 14:05; Stop 11/07/16 at 14:06; Status DC Lactated Ringer's 1,000 ml @ 100 mls/hr Q10H IV ; Start 11/07/16 at 14:22; Stop 11/07/16 at 19:02; Status DC Sodium Chloride (NS Flush) 2 ml UNSCH PRN IV FLUSH FLUSH AFTER USING IV ACCESS Last administered on 12/11/16 11:31; Start 11/07/16 at 14:30 Sodium Chloride (NS Flush) 2 ml BID IV FLUSH Last administered on 01/15/17 08: 48; Start 11/07/16 at 21:00 Ondansetron HCl (Zofran Inj) 4 mg Q6H PRN IV NAUSEA OR VOMITING Last administered on 12/04/16 06:13; Start 11/07/16 at 14:30 Pantoprazole Sodium (Protonix Inj) 40 mg Q24H IV Last administered on 20:00; Start 11/07/16 at 17:00; Stop 11/08/16 at 08:09; Status DC Docusate Sodium (Colace) 100 mg BID PO ; Start 11/07/16 at 21:00; Stop 11/08/16 at 13:04; Status DC Cefazolin Sodium 1000 mg/Sodium Chloride 100 ml @ 200 mls/hr Q8H IV ; Start at 22:00; Stop 11/07/16 at 22:00; Status DC Miscellaneous Information (Post-op Orders (for Pharmacy)) STAT ONCE XX ; Start 11/07/16 at 14:30; Stop 11/07/16 at 15:39; Status DC Oxycodone/ Acetaminophen (Percocet 10-325 Mg) 1 tab Q4H PRN PO 3-5; Start 11/07 at 14:30; Stop 11/07/16 at 19:03; Status DC Hydromorphone HCl (Dilaudid Pf Inj) 1 mg Q2H PRN IV Pain 6-10; Start 11/07/16 at 14:30; Stop 11/07/16 at 19:11; Status DC Naloxone HCl (Narcan Inj) 0.4 mg UNSCH PRN IV SEE LABEL COMMENTS; Start at 14:30 Gentamicin Sulfate (Gentamicin Inj) 80 mg Q8H IM ; Start 11/07/16 at 14:30; Stop 11/07/16 at 15:37; Status DC Hydromorphone HCl (Dilaudid Pf Inj) 0.5 mg SCREEN TENDER HELPER DOSING PRN IV PUSH pain; Start 11/07/16 at 14:45; Stop 11/07/16 at 19:11; Status DC Gentamicin Sulfate/Sodium Chloride 100 ml @ 200 mls/hr Q8H IV ; Start 11/07/16 at 17:00; Status Cancel Miscellaneous Information (Post-op Orders (for Pharmacy)) UNSCH X1 XX ; Start 11/07/16 at 15:45; Stop 11/08/16 at 06:00; Status DC Cefazolin Sodium (Ancef Inj) 1,000 mg STK-MED ONCE .ROUTE Last administered on 11/07/16 16:26; Start 11/07/16 at 15:48; Stop 11/07/16 at 15:49; Status DC Gentamicin Sulfate (Gentamicin Inj) 80 mg STK-MED ONCE .ROUTE Last administered on 11/07/16 16:26; Start 11/07/16 at 15:49; Stop 11/07/16 at 15:50 ; Status DC Acetaminophen (Ofirmev Inj) 1,000 mg STK-MED ONCE IV ; Start 11/07/16 at 15:56; Stop 11/07/16 at 15:57; Status DC Midazolam HCl (Versed Inj) 2 mg STK-MED ONCE .ROUTE ; Start 11/07/16 at 15:56; Stop 11/07/16 at 15:57; Status DC Famotidine (Pepcid Inj) 20 mg STK-MED ONCE .ROUTE ; Start 11/07/16 at 15:56; Stop 11/07/16 at 15:57; Status DC Gentamicin Sulfate (Gentamicin Inj) 240 mg STK-MED ONCE IRRIGATION Last administered on 11/07/16 16:26; Start 11/07/16 at 16:26; Stop 11/07/16 at 16:42 ; Status DC Fentanyl Citrate (fentaNYL INJ) 250 mcg STK-MED ONCE .ROUTE ; Start 11/07/16 at 17:03; Stop 11/07/16 at 17:04; Status DC Gentamicin Sulfate (Gentamicin Inj) 240 mg STK-MED ONCE .ROUTE Last administered on 11/07/16 16:26; Start 11/07/16 at 17:10; Stop 11/07/16 at 17:11 ; Status DC Lactated Ringer's 1,000 ml @ 100 mls/hr Q10H IV Last administered on 07:51; Start 11/07/16 at 18:00; Stop 11/08/16 at 12:46; Status DC Enoxaparin Sodium (Lovenox Inj) 30 mg Q12H SQ ; Start 11/08/16 at 17:00; Stop at 11:48; Status DC Cefazolin Sodium/ Dextrose 50 ml @ 100 mls/hr Q8H IV Last administered on 11/10 08:16; Start 11/08/16 at 00:00; Stop 11/10/16 at 12:47; Status DC Gentamicin Sulfate/Sodium Chloride 100 ml @ 200 mls/hr Q8H IV Last administered on 11/10/16 16:30; Start 11/08/16 at 00:00; Stop 11/10/16 at 16:29 ; Status DC Acetaminophen/ Hydrocodone Bitart ([place] 10-325 Mg) 1 tab Q3H PRN PO PAIN 3<10 Last administered on 11/08/16 10:36; Start 11/07/16 at 18:00; Stop 11/08/16 at 13:04; Status DC Morphine Sulfate (Morphine Inj) 4 mg Q3H PRN IV PUSH Break thru Pain Last administered on 11/08/16 07:50; Start 11/07/16 at 18:00; Stop 11/08/16 at 12:21 ; Status DC Ketorolac Tromethamine (Toradol Inj) 30 mg Q12H IVP Last administered on 05:32; Start 11/07/16 at 18:00; Stop 11/10/16 at 06:01; Status DC Bacitracin (Baciguent Oint) 15 applic STK-MED ONCE .ROUTE Last administered on 11/07/16 18:09; Start 11/07/16 at 18:09; Stop 11/07/16 at 18:10; Status DC Miscellaneous Information ALL NURSING DEPARTME... UNSCH PRN .XX SEE LABEL COMMENTS; Start 11/07/16 at 18:33; Stop 11/08/16 at 18:32; Status DC Acetaminophen (Tylenol) 650 mg Q4H PRN PO Temp > 100.4, pain 1-2; Start at 08:15 Magnesium Hydroxide (Milk Of Magnesia Liq) 30 ml DAILY PRN PO for Severe Constipation Last administered on 11/09/16 20:15; Start 11/08/16 at 08:15; Stop 11/10/16 at 09:00; Status DC Calcium Carbonate (Tums Chew) 1,000 mg TID PRN CHEW DYSPEPSIA Last administered on 01/09/17 22:36; Start 11/08/16 at 08:15 Dextrose (D50w (Vial) Inj) 50 ml UNSCH PRN IV HYPOGLYCEMIA-SEE COMMENTS; Start 11/08/16 at 08:15; Stop 12/03/16 at 09:16; Status DC Glucagon (Glucagon Inj) 1 mg UNSCH PRN OTHER HYPOGLYCEMIA-SEE COMMENTS; Start 11/08/16 at 08:15; Stop 12/03/16 at 09:16; Status DC Insulin Aspart (NovoLOG SUPPLEMENTAL SCALE) 1 ACHS SLIDING SCALE SQ Last administered on 12/01/16 13:21; Start 11/08/16 at 11:00; Stop 12/03/16 at 09:16 ; Status DC Enalaprilat (Vasotec Inj) 1.25 mg Q6H PRN IV SBP> OR = 180, DBP> OR = 100; Start 11/08/16 at 08:15 Clonidine (Catapres) 0.1 mg Q6H PRN PO SBP> OR = 180, DBP> OR = 100; Start at 08:15 Gabapentin (Neurontin) 400 mg TID PO Last administered on 11/16/16 09:10; Start 11/08/16 at 13:00; Stop 11/16/16 at 11:46; Status DC Morphine Sulfate (Morphine Inj) 6 mg Q3H PRN IV PUSH PAIN 6-10 Last administered on 11/17/16 15:09; Start 11/08/16 at 15:00; Stop 11/18/16 at 16:37 ; Status DC Aspirin (Aspirin Chew) 81 mg DAILY CHEW Last administered on 01/15/17 08:46; Start 11/08/16 at 12:45 Ferrous Sulfate (Ferrous Sulfate) 325 mg DAILY PO Last administered on 08:11; Start 11/08/16 at 12:45; Stop 12/05/16 at 09:25; Status DC Lisinopril (Prinivil) 25 mg DAILY PO Last administered on 11/18/16 09:59; Start 11/08/16 at 12:45; Status Future Hold Nitroglycerin (Nitrostat Sl) 0.4 mg Q6HR PRN SL CHEST PAIN; Start 11/08/16 at 12:45 Pantoprazole Sodium (Protonix) 40 mg DAILY PO Last administered on 01/15/17 08 :46; Start 11/08/16 at 12:45 Pravastatin Sodium (Pravachol) 80 mg HS PO Last administered on 01/14/17 21:15 ; Start 11/08/16 at 21:00 Propranolol HCl (Inderal) 80 mg Q12HR PO Last administered on 11/18/16 10:01; Start 11/08/16 at 21:00; Stop 11/22/16 at 12:49; Status DC Miscellaneous (Pill Splitter) 1 ea UNSCH PRN OTHER SEE LABEL COMMENTS; Start at 12:45 Senna/Docusate Sodium (Elke-Colace) 1 tab BID PO Last administered on 09:30; Start 11/08/16 at 12:45; Status Future hold Lactulose (Lactulose Liq) 30 ml DAILY PRN PO No BM in 2 days; Start 11/08/16 at 12:45; Stop 11/10/16 at 07:47; Status DC Acetaminophen/ Hydrocodone Bitart ([place] 10-325 Mg) 1.5 tab Q3H PRN PO PAIN 3- 10 Last administered on 11/09/16 23:46; Start 11/08/16 at 15:00; Stop 11/10/16 at 12:45; Status DC Folic Acid (Folate) 1 mg DAILY PO Last administered on 11/12/16 09:14; Start 11/09/16 at 09:00; Stop 11/14/16 at 08:59; Status DC Thiamine HCl (Vitamin B1) 100 mg DAILY PO Last administered on 01/15/17 08:47 ; Start 11/09/16 at 09:00 Multivitamins/ Minerals Therapeutic (Theragran M Tab) 1 tab DAILY PO Last administered on 11/12/16 09:13; Start 11/09/16 at 09:00; Stop 11/14/16 at 08:59 ; Status DC Flumazenil (Romazicon Inj) 0.2 mg Q1M PRN IV PUSH SEE LABEL COMMENTS; Start at 13:00 Lorazepam (Ativan) 1 mg Q4H PRN PO CIWA 8 - 10; Start 11/08/16 at 13:00; Stop 11/26/16 at 16:05; Status DC Lorazepam (Ativan Inj) 1 mg Q4H PRN IV PUSH CIWA 8 - 10; Start 11/08/16 at 13: 00; Stop 11/26/16 at 16:05; Status DC Lorazepam (Ativan) 2 mg Q2H PRN PO CIWA 11-14; Start 11/08/16 at 13:00; Stop at 16:05; Status DC Lorazepam (Ativan Inj) 2 mg Q2H PRN IV PUSH CIWA 11-14; Start 11/08/16 at 13:00 ; Stop 11/26/16 at 16:05; Status DC Lorazepam (Ativan Inj) 2 mg Q1H PRN IV PUSH CIWA 15-20; Start 11/08/16 at 13:00 ; Stop 11/26/16 at 16:05; Status DC Lorazepam (Ativan Inj) 2 mg Q15M PRN IV PUSH CIWA > 20; Start 11/08/16 at 13:00 ; Stop 11/26/16 at 16:05; Status DC Haloperidol Lactate (Haldol Inj) 2 mg Q15M PRN IM SEE LABEL COMMENTS; Start at 13:00 Lactated Ringer's 1,000 ml @ 30 mls/hr Q24H PRN IV SEE LABEL COMMENTS; Start at 00:45; Stop 11/09/16 at 12:05; Status DC Sodium Chloride 500 ml @ 30 mls/hr [id number] PRN IV SEE LABEL COMMENTS; Start at 00:45; Stop 11/09/16 at 12:05; Status DC Metoprolol Tartrate (Lopressor) 25 mg ROTARY CUTTER PRN PO SEE LABEL COMMENTS; Start 11/09/16 at 00:45; Stop 11/12/16 at 00:44; Status DC Povidone Iodine (Betadine 5% Antisepsis Kit) 1 applic ROTARY CUTTER PRN EACH NARE SEE LABEL COMMENTS; Start 11/09/16 at 00:45; Stop 11/12/16 at 00:44; Status DC Chlorhexidine Gluconate (Chlorhexidine 2% Cloth) 3 pack ROTARY CUTTER PRN TOPICAL SEE LABEL COMMENTS; Start 11/09/16 at 00:45; Stop 11/09/16 at 12:05; Status DC Insulin Human Regular (NovoLIN R INJ) See Protocol Table ... ROTARY CUTTER PRN SQ SEE PROTOCOL TABLE; Start 11/09/16 at 00:45; Stop 11/12/16 at 00:44; Status DC Potassium Chloride (KCl) 20 meq ONCE ONCE PO Last administered on 11/09/16 11 :40; Start 11/09/16 at 11:00; Stop 11/09/16 at 11:01; Status DC Neomycin/ Polymyxin/ Bacitracin (Neosporin Oint) 1 applic DAILY TOPICAL Last administered on 01/10/17 09:00; Start 11/10/16 at 09:00 Lactulose (Lactulose Liq) 30 ml DAILY PO Last administered on 8/15/17at 09:18; Start 11/10/16 at 09:00; Stop 12/08/16 at 09:52; Status DC Magnesium Hydroxide (Milk Of Magnesia Liq) 30 ml HS PO Last administered on 22:21; Start 11/10/16 at 21:00; Status Future hold Famotidine (Pepcid Inj) 20 mg STK-MED ONCE .ROUTE Last administered on 08:51; Start 11/10/16 at 08:51; Stop 11/10/16 at 08:52; Status DC Albuterol Sulfate (Albuterol Neb) 2.5 mg STK-MED ONCE .ROUTE Last administered on 11/10/16 08:55; Start 11/10/16 at 08:53; Stop 11/10/16 at 08:54; Status DC Gentamicin Sulfate (Gentamicin Inj) 240 mg STK-MED ONCE .ROUTE Last administered on 11/10/16 09:48; Start 11/10/16 at 09:02; Stop 11/10/16 at 09:03 ; Status DC Acetaminophen (Ofirmev Inj) 1,000 mg STK-MED ONCE IV ; Start 11/10/16 at 09:13; Stop 11/10/16 at 09:14; Status DC Lactated Ringer's 1,000 ml @ 100 mls/hr Q10H IV Last administered on 00:53; Start 11/10/16 at 13:00; Stop 11/11/16 at 11:56; Status DC Enoxaparin Sodium (Lovenox Inj) 30 mg Q12H SQ Last administered on 12/04/16 00 :03; Start 11/11/16 at 00:00; Stop 12/04/16 at 09:43; Status DC Cefazolin Sodium/ Dextrose 50 ml @ 100 mls/hr Q8H IV Last administered on 11/13 00:05; Start 11/10/16 at 16:00; Stop 11/13/16 at 08:29; Status DC Gentamicin Sulfate/Sodium Chloride 100 ml @ 200 mls/hr Q8H IV Last administered on 11/13/16 10:00; Start 11/10/16 at 18:00; Stop 11/13/16 at 10:29 ; Status DC Acetaminophen/ Hydrocodone Bitart ([place] 10-325 Mg) 1 tab Q3H PRN PO PAIN 3<10 Last administered on 11/18/16 04:34; Start 11/10/16 at 11:45; Stop 11/18/16 at 16 :37; Status DC Calcium/Vitamin D (Oscal-D 250-125) 250 mg TID PO Last administered on 08:47; Start 11/10/16 at 13:00 Meperidine HCl (*DEMEROL INJ PERIprocedural ONLY) 25 mg STK-MED ONCE .ROUTE Last administered on 11/10/16 12:36; Start 11/10/16 at 12:36; Stop 11/10/16 at 12:37; Status DC Miscellaneous Information ALL NURSING DEPARTME... UNSCH PRN .XX SEE LABEL COMMENTS; Start 11/10/16 at 12:29; Stop 11/11/16 at 12:28; Status DC Midazolam HCl (Versed Inj) 2 mg STK-MED ONCE .ROUTE ; Start 11/10/16 at 12:48; Stop 11/10/16 at 12:49; Status DC Fentanyl Citrate (fentaNYL INJ) 250 mcg STK-MED ONCE .ROUTE ; Start 11/10/16 at 12:48; Stop 11/10/16 at 12:49; Status DC Morphine Sulfate (*morphine INJ PERIprocedure ONLY) 8 mg STK-MED ONCE .ROUTE Last administered on 11/10/16 14:36; Start 11/10/16 at 14:36; Stop 11/10/16 at 14:37; Status DC Bisacodyl (Dulcolax Ec) 10 mg ONCE ONCE PO Last administered on 11/11/16 10: 17; Start 11/11/16 at 07:00; Stop 11/11/16 at 07:04; Status DC Bisacodyl (Dulcolax Supp) 10 mg ONCE ONCE RECTAL Last administered on 10:17; Start 11/11/16 at 07:00; Stop 11/11/16 at 07:04; Status DC Sodium Chloride 250 ml @ 15 mls/hr ONCE ONCE IV Last administered on 11:19; Start 11/11/16 at 11:15; Stop 11/12/16 at 03:54; Status DC Furosemide (Lasix Inj) 20 mg ONCE ONCE IV ; Start 11/11/16 at 11:15; Stop 11/11 at 11:16; Status Cancel Furosemide (Lasix Inj) 20 mg ONCE ONCE IV Last administered on 11/12/16 11:18 ; Start 11/12/16 at 11:00; Stop 11/12/16 at 11:01; Status DC Albuterol/ Ipratropium (Duoneb Neb) 1 ampule Q4HR NEB PRN NEB wheezing; Start 11/12/16 at 13:15 Lactated Ringer's 1,000 ml @ 30 mls/hr Q24H PRN IV SEE LABEL COMMENTS; Start at 05:00; Stop 11/16/16 at 04:59; Status Cancel Sodium Chloride 500 ml @ 30 mls/hr [id number] PRN IV SEE LABEL COMMENTS; Start at 05:00; Stop 11/16/16 at 04:59; Status DC Metoprolol Tartrate (Lopressor) 25 mg ROTARY CUTTER PRN PO SEE LABEL COMMENTS; Start 11/13/16 at 05:00; Stop 11/16/16 at 04:59; Status DC Povidone Iodine (Betadine 5% Antisepsis Kit) 1 applic ROTARY CUTTER PRN EACH NARE SEE LABEL COMMENTS; Start 11/13/16 at 05:00; Stop 11/16/16 at 04:59; Status DC Chlorhexidine Gluconate (Chlorhexidine 2% Cloth) 3 pack ROTARY CUTTER PRN TOPICAL SEE LABEL COMMENTS; Start 11/13/16 at 05:00; Stop 11/16/16 at 04:59; Status DC Lidocaine HCl (Xylocaine 2% Jelly) 30 applic STK-MED ONCE .ROUTE ; Start at 07:15; Stop 11/13/16 at 07:16; Status DC Mineral Oil (Muri-Lube Oil) 10 ml STK-MED ONCE .ROUTE ; Start 11/13/16 at 07:15 ; Stop 11/13/16 at 07:16; Status DC Gentamicin Sulfate (Gentamicin Inj) 240 mg STK-MED ONCE .ROUTE Last administered on 11/13/16 08:20; Start 11/13/16 at 07:15; Stop 11/13/16 at 07:16 ; Status DC Albuterol Sulfate (Albuterol Neb) 2.5 mg STK-MED ONCE .ROUTE ; Start 11/13/16 at 07:34; Stop 11/13/16 at 07:35; Status DC Dexamethasone Sodium Phosphate (Decadron Inj) 4 mg STK-MED ONCE .ROUTE ; Start 11/13/16 at 07:36; Stop 11/13/16 at 07:37; Status DC Famotidine (Pepcid Inj) 20 mg STK-MED ONCE .ROUTE ; Start 11/13/16 at 07:36; Stop 11/13/16 at 07:37; Status DC Albuterol/ Ipratropium (Duoneb Neb) 1 ampule STK-MED ONCE .ROUTE Last administered on 11/13/16 07:50; Start 11/13/16 at 07:47; Stop 11/13/16 at 07:48 ; Status DC Lactated Ringer's 1,000 ml @ 100 mls/hr Q10H IV Last administered on 12:14; Start 11/13/16 at 08:42; Stop 11/18/16 at 16:33; Status DC Cefazolin Sodium/ Dextrose 50 ml @ 100 mls/hr Q8H IV Last administered on 04:43; Start 11/13/16 at 12:00; Stop 11/20/16 at 11:59; Status DC Gentamicin Sulfate/Sodium Chloride 100 ml @ 200 mls/hr Q8H IV Last administered on 11/16/16 09:14; Start 11/13/16 at 18:00; Stop 11/16/16 at 17:59 ; Status DC Midazolam HCl (Versed Inj) 2 mg STK-MED ONCE .ROUTE ; Start 11/13/16 at 09:25; Stop 11/13/16 at 09:26; Status DC Fentanyl Citrate (fentaNYL INJ) 250 mcg STK-MED ONCE .ROUTE ; Start 11/13/16 at 09:25; Stop 11/13/16 at 09:26; Status DC Zolpidem Tartrate (Ambien) 5 mg HS PRN PO Insomnia Last administered on 22:24; Start 11/14/16 at 11:00 Trazodone HCl (Desyrel) 100 mg HS PO Last administered on 01/14/17 21:15; Start 11/14/16 at 21:00 Morphine Sulfate (Oramorph Sr) 15 mg Q12HR PO Last administered on 11/18/16 10: 00; Start 11/16/16 at 21:00; Stop 11/18/16 at 16:36; Status DC Morphine Sulfate (Oramorph Sr) 15 mg ONCE ONCE PO Last administered on 12:32; Start 11/16/16 at 10:15; Stop 11/16/16 at 10:24; Status DC Gabapentin (Neurontin) 600 mg TID PO Last administered on 01/15/17 08:47; Start 11/16/16 at 13:00 Sodium Chloride 1,000 ml @ 999 mls/hr BOLUS ONCE IV Last administered on 17:22; Start 11/18/16 at 16:45; Stop 11/18/16 at 17:45; Status DC Morphine Sulfate (Oramorph Sr) 30 mg Q12HR PO Last administered on 11/29/16 09 :24; Start 11/18/16 at 21:00; Stop 11/29/16 at 14:26; Status DC Morphine Sulfate (Morphine Inj) 6 mg Q4H PRN IV PUSH PAIN SCALE 5 TO 10 Last administered on 11/19/16 05:59; Start 11/18/16 at 16:45; Stop 11/20/16 at 00:46; Status DC Morphine Sulfate (Morphine Inj) 3 mg Q3H PRN IV PUSH PAIN SCALE 1 TO 4 Last administered on 11/19/16 16:36; Start 11/18/16 at 16:45; Stop 11/20/16 at 00:46; Status DC Sodium Chloride 1,000 ml @ 125 mls/hr Q8H IV Last administered on 11/19/16 16: 15; Start 11/19/16 at 00:15; Stop 11/19/16 at 19:21; Status DC Sodium Chloride 500 ml @ 500 mls/hr BOLUS ONCE IV Last administered on 00:15; Start 11/19/16 at 00:15; Stop 11/19/16 at 01:14; Status DC Nystatin (Mycostatin Powder) 1 applic Q12HR TOPICAL Last administered on 08:54; Start 11/19/16 at 21:00; Stop 11/28/16 at 13:46; Status DC Acetaminophen/ Hydrocodone Bitart ([place] 7.5-325 Mg) 1 tab Q4H PRN PO PAIN SCALE 1 TO 4; Start 11/20/16 at 00:45; Stop 11/28/16 at 13:46; Status DC Acetaminophen/ Hydrocodone Bitart ([place] 10-325 Mg) 1 tab Q4H PRN PO PAIN SCALE 3-5 Last administered on 12/23/16 08:58; Start 11/20/16 at 00:45 Hydromorphone HCl (Dilaudid Pf Inj) 1 mg Q4H PRN IV PUSH BREAKTHROUGH PAIN Last administered on 12/17/16 10:38; Start 11/20/16 at 00:45; Stop 12/18/16 at 10:47; Status DC Propranolol HCl (Inderal) 40 mg Q12HR PO Last administered on 12/08/16 08:01; Start 11/22/16 at 21:00; Stop 12/08/16 at 10:00; Status DC Lactated Ringer's 1,000 ml @ 30 mls/hr Q24H PRN IV SEE LABEL COMMENTS; Start at 02:45; Stop 11/27/16 at 02:44; Status DC Sodium Chloride 500 ml @ 30 mls/hr [id number] PRN IV SEE LABEL COMMENTS; Start 11/24/16 at 02:45; Stop 11/27/16 at 02:44; Status DC Povidone Iodine (Betadine 5% Antisepsis Kit) 1 applic ROTARY CUTTER PRN EACH NARE SEE LABEL COMMENTS; Start 11/24/16 at 02:45; Stop 11/27/16 at 02:44; Status DC Chlorhexidine Gluconate (Chlorhexidine 2% Cloth) 3 pack ROTARY CUTTER PRN TOPICAL SEE LABEL COMMENTS; Start 11/24/16 at 02:45; Stop 11/27/16 at 02:44; Status DC Insulin Human Regular (NovoLIN R INJ) See Protocol Table ... 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 CUTTER PRN SQ SEE PROTOCOL TABLE; Start 11/24/16 at 02:45; Stop 11/27/16 at 02:44; Status DC Prochlorperazine Edisylate (Compazine Inj) 10 mg Q8H PRN IV PUSH NAUSEA/ VOMITING Last administered on 11/25/16 18:00; Start 11/25/16 at 16:15 Sodium Chloride 500 ml @ 500 mls/hr BOLUS ONCE IV Last administered on 18:06; Start 11/25/16 at 17:00; Stop 11/25/16 at 17:59; Status DC Gentamicin Sulfate (Gentamicin Inj) 240 mg STK-MED ONCE .ROUTE Last administered on 11/28/16 10:42; Start 11/28/16 at 07:18; Stop 11/28/16 at 07:19 ; Status DC Vancomycin HCl (Vancomycin Inj) 1,000 mg STK-MED ONCE .ROUTE Last administered on 12/09/16 15:25; Start 11/28/16 at 07:38; Stop 11/28/16 at 07:39; Status DC Cefazolin Sodium/ Dextrose 50 ml @ As Directed STK-MED ONCE .ROUTE Last administered on 12/09/16 15:20; Start 11/28/16 at 07:38; Stop 11/28/16 at 07:39 ; Status DC Sodium Chloride 250 ml @ As Directed STK-MED ONCE .ROUTE ; Start 11/28/16 at 07 :39; Stop 11/28/16 at 07:40; Status DC Fentanyl Citrate (fentaNYL INJ) 250 mcg STK-MED ONCE .ROUTE ; Start 11/28/16 at 10:15; Stop 11/28/16 at 10:16; Status DC Cefazolin Sodium (Ancef Inj) 1,000 mg STK-MED ONCE .ROUTE Last administered on 11/28/16 10:31; Start 11/28/16 at 10:23; Stop 11/28/16 at 10:24; Status DC Lactated Ringer's 1,000 ml @ 100 mls/hr Q10H IV ; Start 11/28/16 at 10:59; Stop 12/03/16 at 09:16; Status DC Cefazolin Sodium/ Dextrose 50 ml @ 100 mls/hr Q8H IV Last administered on 12/01 06:46; Start 11/28/16 at 15:00; Stop 12/01/16 at 14:59; Status DC Magnesium Hydroxide (Milk Of Magnesia Liq) 30 ml Q12H PRN PO MILD - MODERATE CONSTIPATION Last administered on 12/26/16 10:08; Start 11/28/16 at 11:30 Sennosides (Senokot) 17.2 mg Q12H PRN PO MODERATE - SEVERE CONSTIPATION Last administered on 12/25/16 09:48; Start 11/28/16 at 11:30 Bisacodyl (Dulcolax Supp) 10 mg DAILY PRN RECTAL SEVERE CONSITIPATION Last administered on 12/11/16 12:30; Start 11/28/16 at 11:30 Albuterol Sulfate (*ALBUTEROL NEB PERIprocedure ONLY) 2.5 mg STK-MED ONCE NEB Last administered on 11/28/16 11:38; Start 11/28/16 at 11:38; Stop 11/28/16 at 11:39; Status DC Dexamethasone Sodium Phosphate (Decadron Inj) 4 mg STK-MED ONCE .ROUTE ; Start 11/28/16 at 11:51; Stop 11/28/16 at 11:52; Status DC Dexamethasone Sodium Phosphate (Decadron Inj) 4 mg NOW ONCE IV Last administered on 11/28/16 12:00; Start 11/28/16 at 12:00; Stop 11/28/16 at 12:01 ; Status DC Miscellaneous Information ALL NURSING DEPARTME... UNSCH PRN .XX SEE LABEL COMMENTS; Start 11/28/16 at 11:22; Stop 11/29/16 at 11:21; Status DC Morphine Sulfate (*morphine INJ PERIprocedure ONLY) 8 mg STK-MED ONCE .ROUTE Last administered on 11/28/16 12:01; Start 11/28/16 at 12:01; Stop 11/28/16 at 12:02; Status DC Acetaminophen/ Hydrocodone Bitart ([place] 10-325 Mg) 1.5 tab Q4H PRN PO pain 6- 10 Last administered on 12/23/16 17:35; Start 11/28/16 at 15:00; Stop 12/23/16 at 18:38; Status DC Nystatin (Mycostatin Cream) 1 applic Q6HR TOPICAL Last administered on 05:00; Start 11/28/16 at 14:00; Stop 12/16/16 at 13:46; Status DC Morphine Sulfate (Oramorph Sr) 30 mg Q8HR PO Last administered on 12/03/16 06: 09; Start 11/29/16 at 22:00; Stop 12/03/16 at 12:16; Status DC Cetirizine HCl (ZyrTEC) 10 mg HS PO Last administered on 12/07/16 20:03; Start 12/01/16 at 21:00; Stop 12/08/16 at 20:59; Status DC Fluticasone Propionate (Flonase Jerzy Spr) 2 spray DAILY EACH NARE Last administered on 12/15/16 08:54; Start 12/01/16 at 11:00; Stop 12/15/16 at 10:59 ; Status DC Folic Acid (Folate) 1 mg DAILY PO Last administered on 01/15/17 08:47; Start 12/03/16 at 09:00 Morphine Sulfate (Oramorph Sr) 30 mg Q8HR PO Last administered on 01/15/17 06: 13; Start 12/03/16 at 14:00 Lactobacillus Acidophilus (Lactinex) 1 tab TID PO Last administered on 08:10; Start 12/04/16 at 09:00; Stop 12/05/16 at 09:26; Status DC Enoxaparin Sodium (Lovenox Inj) 40 mg DAILY SQ Last administered on 01/15/17 08:47; Start 12/05/16 at 09:00 Al Hydrox/Mg Hydrox/Simethicone (Mag-Al Plus Susp Liq) 30 ml ONCE ONCE PO Last administered on 12/04/16 11:55; Start 12/04/16 at 11:45; Stop 12/04/16 at 11:50; Status DC Al Hydrox/Mg Hydrox/Simethicone (Mag-Al Plus Susp Liq) 30 ml Q6HR PRN PO HEARTBURN, INDIGESTION Last administered on 01/06/17 11:29; Start 12/04/16 at 18:00 Sucralfate (Carafate Liq) 1 gm QID PO Last administered on 12/16/16 13:41; Start 12/05/16 at 09:00; Stop 12/16/16 at 13:43; Status DC Lactobacillus Acidophilus (Lactinex) 1 tab BID PO Last administered on 09:36; Start 12/05/16 at 21:00; Stop 12/18/16 at 10:47; Status DC Polyethylene Glycol (Miralax) 17 gm DAILY PRN PO CONSTIPATION; Start 12/08/16 at 10:00; Stop 12/11/16 at 15:18; Status DC Propranolol HCl (Inderal) 20 mg Q12HR PO Last administered on 12/09/16 20:34; Start 12/08/16 at 21:00; Stop 12/10/16 at 07:34; Status DC Lactated Ringer's 1,000 ml @ 30 mls/hr Q24H PRN IV SEE LABEL COMMENTS; Start at 01:30; Stop 12/12/16 at 01:29; Status DC Sodium Chloride 500 ml @ 30 mls/hr [id number] PRN IV SEE LABEL COMMENTS; Start at 01:30; Stop 12/12/16 at 01:29; Status DC Povidone Iodine (Betadine 5% Antisepsis Kit) 1 applic ROTARY CUTTER PRN EACH NARE SEE LABEL COMMENTS; Start 12/09/16 at 01:30; Stop 12/12/16 at 01:29; Status DC Chlorhexidine Gluconate (Chlorhexidine 2% Cloth) 3 pack ROTARY CUTTER PRN TOPICAL SEE LABEL COMMENTS; Start 12/09/16 at 01:30; Stop 12/12/16 at 01:29; Status DC Insulin Human Regular (NovoLIN R INJ) See Protocol Table ... ROTARY CUTTER PRN SQ SEE PROTOCOL TABLE; Start 12/09/16 at 01:30; Stop 12/12/16 at 01:29; Status DC Bupivacaine HCl/ Epinephrine Bitart (Sensorcaine-Epinephrine 0.25% Inj) 50 ml STK-MED ONCE .ROUTE ; Start 12/09/16 at 14:07; Stop 12/09/16 at 14:08; Status DC Mineral Oil (Muri-Lube Oil) 10 ml STK-MED ONCE .ROUTE ; Start 12/09/16 at 14:07 ; Stop 12/09/16 at 14:08; Status DC Gentamicin Sulfate (Gentamicin Inj) 240 mg STK-MED ONCE .ROUTE Last administered on 12/09/16 15:31; Start 12/09/16 at 14:07; Stop 12/09/16 at 14:08 ; Status DC Vancomycin HCl (Vancomycin Inj) 1,000 mg STK-MED ONCE .ROUTE ; Start 12/09/16 at 15:06; Stop 12/09/16 at 15:07; Status DC Cefazolin Sodium/ Dextrose 50 ml @ As Directed STK-MED ONCE .ROUTE ; Start 12/09 at 15:06; Stop 12/09/16 at 15:07; Status DC Lactated Ringer's 1,000 ml @ 100 mls/hr Q10H IV ; Start 12/09/16 at 15:57; Stop 12/16/16 at 13:45; Status DC Cefazolin Sodium/ Dextrose 50 ml @ 100 mls/hr Q8H IV Last administered on 12/16 13:42; Start 12/09/16 at 20:00; Stop 12/16/16 at 19:59; Status DC Gentamicin Sulfate/Sodium Chloride 100 ml @ 200 mls/hr Q8H IV Last administered on 12/12/16 12:25; Start 12/09/16 at 21:00; Stop 12/12/16 at 20:59 ; Status DC Morphine Sulfate (*morphine INJ PERIprocedure ONLY) 8 mg STK-MED ONCE .ROUTE Last administered on 12/09/16 16:32; Start 12/09/16 at 16:32; Stop 12/09/16 at 16:33; Status DC Fentanyl Citrate (fentaNYL INJ) 250 mcg STK-MED ONCE .ROUTE ; Start 12/09/16 at 16:33; Stop 12/09/16 at 16:34; Status DC Miscellaneous Information ALL NURSING DEPARTME... UNSCH PRN .XX SEE LABEL COMMENTS; Start 12/09/16 at 16:20; Stop 12/10/16 at 16:19; Status DC Morphine Sulfate (*morphine INJ PERIprocedure ONLY) 8 mg STK-MED ONCE .ROUTE Last administered on 12/09/16 17:01; Start 12/09/16 at 17:01; Stop 12/09/16 at 17:02; Status DC Propranolol HCl (Inderal) 10 mg Q12HR PO Last administered on 12/13/16 09:42; Start 12/10/16 at 09:00; Stop 12/13/16 at 10:32; Status DC Menthol/Methyl Salicylate (Aleks Daniels Oint) 1 applic UNSCH PRN TOPICAL arthritic pain Last administered on 12/12/16 17:51; Start 12/11/16 at 15:30 Propranolol HCl (Inderal) 20 mg Q12HR PO ; Start 12/13/16 at 21:00; Stop at 21:00; Status DC Propranolol HCl (Inderal) 10 mg Q12HR PO Last administered on 01/15/17 08:47; Start 12/13/16 at 21:00 Bacitracin (Baciguent Oint) 1 applic DAILY PRN TOPICAL WOUND VAC DRESSING CHANGE; Start 12/15/16 at 12:30 Sucralfate (Carafate Liq) 1 gm BID PO Last administered on 12/30/16 08:30; Start 12/16/16 at 21:00; Stop 12/30/16 at 20:59; Status DC Lidocaine HCl (Lidoderm 5% Patch.12 Hr) 1 patch DAILY T-DERMAL Last administered on 12/18/16 11:33; Start 12/18/16 at 10:00; Stop 12/19/16 at 19:35 ; Status DC Miscellaneous Information 1 Q24H T-DERMAL ; Start 12/18/16 at 21:00; Stop at 19:35; Status DC Lactobacillus Acidophilus (Lactinex) 1 tab TID PO Last administered on 08:47; Start 12/18/16 at 13:00 Lidocaine HCl (Lidoderm 5% Patch.12 Hr) 1 patch HS T-DERMAL Last administered on 01/14/17 21:12; Start 12/19/16 at 21:00 Miscellaneous Information 1 Q24H T-DERMAL Last administered on 12/24/16 09:00; Start 12/20/16 at 09:00 Propofol (Diprivan 200 Mg/20 ml Inj) 200 mg STK-MED ONCE IV ; Start 11/07/16 at 12:00; Stop 12/23/16 at 10:36; Status DC Ephedrine Sulfate (ePHEDrine/NS 25 MG/5 ML SYR) 50 mg STK-MED ONCE IV ; Start at 12:00; Stop 12/23/16 at 10:36; Status DC Neostigmine Methylsulfate (Prostigmin Inj) 3 mg STK-MED ONCE IV ; Start at 12:00; Stop 12/23/16 at 10:36; Status DC Phenylephrine HCl (Neosynephrine/ NS 1000 Mcg/10ml Syr) 1,000 mcg STK-MED ONCE IV ; Start 11/07/16 at 12:00; Stop 12/23/16 at 10:37; Status DC Ondansetron HCl (Zofran Inj) 4 mg STK-MED ONCE IV PUSH ; Start 11/07/16 at 12:00 ; Stop 12/23/16 at 10:37; Status DC Lactated Ringer's 1,000 ml @ As Directed STK-MED ONCE IV ; Start 11/07/16 at 12 :00; Stop 12/23/16 at 10:37; Status DC Parenteral Electrolytes 1,000 ml @ As Directed STK-MED ONCE IV ; Start at 12:00; Stop 12/23/16 at 10:37; Status DC Propofol (Diprivan 200 Mg/20 ml Inj) 400 mg STK-MED ONCE IV ; Start 11/10/16 at 12:00; Stop 12/23/16 at 12:04; Status DC Phenylephrine HCl (Neosynephrine/ NS 1000 Mcg/10ml Syr) 2,000 mcg STK-MED ONCE IV ; Start 11/10/16 at 12:00; Stop 12/23/16 at 12:04; Status DC Ondansetron HCl (Zofran Inj) 4 mg STK-MED ONCE IV PUSH ; Start 11/10/16 at 12:00 ; Stop 12/23/16 at 12:04; Status DC Lactated Ringer's 1,000 ml @ As Directed STK-MED ONCE IV ; Start 11/10/16 at 12 :00; Stop 12/23/16 at 12:04; Status DC Propofol (Diprivan 200 Mg/20 ml Inj) 200 mg STK-MED ONCE IV ; Start 11/13/16 at 12:00; Stop 12/23/16 at 12:38; Status DC Ephedrine Sulfate (ePHEDrine/NS 25 MG/5 ML SYR) 25 mg STK-MED ONCE IV ; Start at 12:00; Stop 12/23/16 at 12:38; Status DC Phenylephrine HCl (Neosynephrine/ NS 1000 Mcg/10ml Syr) 1,000 mcg STK-MED ONCE IV ; Start 11/13/16 at 12:00; Stop 12/23/16 at 12:38; Status DC Ondansetron HCl (Zofran Inj) 4 mg STK-MED ONCE IV PUSH ; Start 11/13/16 at 12:00 ; Stop 12/23/16 at 12:38; Status DC Lactated Ringer's 1,000 ml @ As Directed STK-MED ONCE IV ; Start 11/13/16 at 12 :00; Stop 12/23/16 at 12:38; Status DC Neostigmine Methylsulfate (Prostigmin Inj) 3 mg STK-MED ONCE IV ; Start at 12:00; Stop 12/23/16 at 12:38; Status DC Propofol (Diprivan 200 Mg/20 ml Inj) 200 mg STK-MED ONCE IV ; Start 11/28/16 at 12:00; Stop 12/23/16 at 12:50; Status DC Ephedrine Sulfate (ePHEDrine/NS 25 MG/5 ML SYR) 25 mg STK-MED ONCE IV ; Start at 12:00; Stop 12/23/16 at 12:50; Status DC Ondansetron HCl (Zofran Inj) 4 mg STK-MED ONCE IV PUSH ; Start 11/28/16 at 12:00 ; Stop 12/23/16 at 12:50; Status DC Propofol (Diprivan 200 Mg/20 ml Inj) 200 mg STK-MED ONCE IV ; Start 12/09/16 at 12:00; Stop 12/23/16 at 14:38; Status DC Ephedrine Sulfate (ePHEDrine/NS 25 MG/5 ML SYR) 50 mg STK-MED ONCE IV ; Start at 12:00; Stop 12/23/16 at 14:38; Status DC Ondansetron HCl (Zofran Inj) 4 mg STK-MED ONCE IV PUSH ; Start 12/09/16 at 12:00 ; Stop 12/23/16 at 14:38; Status DC Acetaminophen/ Hydrocodone Bitart ([place] 10-325 Mg) 2 tab Q4H PRN PO pain 6-10 Last administered on 01/15/17t 08:47; Start 12/23/16 at 18:45 Vancomycin HCl 5000 mg/Sodium Chloride 3,000 ml @ 10 mls/hr Q24H PRN IRRIGATION DRESSING CHANGE Last administered on 01/08/17 01:36; Start 12/25/16 at 08:00 Diphenhydramine HCl (Benadryl) 12.5 mg Q4H PRN PO itching Last administered on 12/28/16 07:54; Start 12/25/16 at 16:45; Stop 12/28/16 at 13:48; Status DC Ferrous Sulfate (Ferrous Sulfate) 325 mg BID@12,17 PO Last administered on 01/14 17:44; Start 12/26/16 at 12:00 Ascorbic Acid (Vitamin C) 500 mg BID PO Last administered on 01/15/17 08:46; Start 12/26/16 at 09:00 Pharmacy Profile Note 0 ml @ 0 mls/hr UNSCH OTHER ; Start 12/26/16 at 14:45 Vancomycin HCl 1500 mg/Sodium Chloride 515 ml @ 257.5 mls/ hr Q12H IV Last administered on 12/26/16 20:17; Start 12/26/16 at 17:00; Stop 12/27/16 at 04:54; Status DC Miscellaneous Information SPECIFIC LAB TO BE LEANNA... ONCE ONCE .XX ; Start 12/28 at 04:45; Stop 12/28/16 at 04:46; Status Cancel Vancomycin HCl 1500 mg/Sodium Chloride 515 ml @ 257.5 mls/ hr Q12H IV Last administered on 12/29/16 20:50; Start 12/27/16 at 08:00; Stop 12/29/16 at 20:35 ; Status DC Miscellaneous Information SPECIFIC LAB TO BE LEANNA... ONCE ONCE .XX ; Start 12/28 at 07:45; Stop 12/28/16 at 07:46; Status DC Miscellaneous Information SPECIFIC LAB TO BE LEANNA... ONCE ONCE .XX Last administered on 12/29/16 20:45; Start 12/29/16 at 20:45; Stop 12/29/16 at 20:46 ; Status DC Diphenhydramine HCl (Benadryl) 50 mg Q4H PRN PO itching Last administered on 09:02; Start 12/28/16 at 16:45 Vancomycin HCl 1500 mg/Sodium Chloride 515 ml @ 257.5 mls/ hr Q12H IV Last administered on 01/03/17 08:51; Start 12/29/16 at 21:00; Stop 01/03/17 at 22:00 ; Status DC Miscellaneous Information SPECIFIC LAB TO BE DRAWN:VANCO TROUGH DATE TO BE DR... ONCE ONCE .XX Last administered on 12/31/16 08:45; Start 12/31/16 at 08 :45; Stop 12/31/16 at 08:46; Status DC Miscellaneous Information SPECIFIC LAB TO BE LEANNA... ONCE ONCE .XX ; Start 01/03 at 08:45; Stop 01/03/17 at 08:46; Status DC Fluticasone Propionate (Flonase Jerzy Spr) 1 spray BID NASAL Last administered on 01/15/17 08:48; Start 01/02/17 at 21:00 Miscellaneous Information SPECIFIC LAB TO BE DRAWN:VANCOMY... ONCE ONCE .XX Last administered on 01/03/17 20:45; Start 01/03/17 at 20:45; Stop 01/03/17 at 20:46; Status DC Vancomycin HCl 1500 mg/Sodium Chloride 515 ml @ 257.5 mls/ hr Q12H IV Last administered on 01/15/17 08:46; Start 01/03/17 at 22:00 Miscellaneous Information SPECIFIC LAB TO BE LEANNA... ONCE ONCE .XX ; Start 01/04 at 21:45; Stop 01/04/17 at 21:46; Status DC Miscellaneous Information SPECIFIC LAB TO BE LEANNA... ONCE ONCE .XX ; Start 01/05 at 21:45; Stop 01/05/17 at 21:46; Status DC Calcium Carbonate (Tums Chew) 500 mg Q12HR CHEW Last administered on 01/15/17 08:46; Start 01/05/17 at 11:30 Cefazolin Sodium/ Dextrose 50 ml @ As Directed STK-MED ONCE .ROUTE Last administered on 01/09/17 13:01; Start 01/09/17 at 11:31; Stop 01/09/17 at 11:32 ; Status DC Lidocaine HCl (Xylocaine 2% Jelly) 30 applic STK-MED ONCE .ROUTE Last administered on 01/09/17 13:08; Start 01/09/17 at 11:31; Stop 01/09/17 at 11:32 ; Status DC Mineral Oil (Muri-Lube Oil) 10 ml STK-MED ONCE .ROUTE Last administered on 01/09 13:08; Start 01/09/17 at 11:31; Stop 01/09/17 at 11:32; Status DC Gentamicin Sulfate (Gentamicin Inj) 240 mg STK-MED ONCE .ROUTE Last administered on 01/09/17 13:08; Start 01/09/17 at 11:31; Stop 01/09/17 at 11:32 ; Status DC Lactated Ringer's 1,000 ml @ 100 mls/hr Q10H IV Last administered on 14:15; Start 01/09/17 at 13:34 Morphine Sulfate (*morphine INJ PERIprocedure ONLY) 8 mg STK-MED ONCE .ROUTE Last administered on 01/09/17 14:10; Start 01/09/17 at 14:10; Stop 01/09/17 at 14:11; Status DC Miscellaneous Information ALL NURSING DEPARTME... UNSCH PRN .XX SEE LABEL COMMENTS; Start 01/09/17 at 13:52; Stop 01/10/17 at 13:51; Status DC Miscellaneous Information SPECIFIC LAB TO BE LEANNA... ONCE ONCE .XX Last administered on 01/11/17 09:45; Start 01/11/17 at 09:45; Stop 01/11/17 at 09:46 ; Status DC A/P Assessment and Plan A/P Bilateral open tibia-fibula fractures Left tibial plateau fracture - Open fractures have been surgically repaired, right side has external fixation - s/p Removal of external fixation right lower extremity, irrigation debridement of left leg, split-thickness skin graft left leg, application wound VAC dressing on 01/09 - left tibial plateau fracture treated nonoperatively - continue with pain control. -management per ortho MRSA - wound culture ( leg) 12/23 positive for MRSA -on Vanco- evaluated by ID Acute blood loss anemia JAMAR - Related to trauma vs post op blood loss - Status post transfusion of 2 units of packed red blood cells in 11/12/16. - on iron supplementation daily. - hemoglobin stable - monitor CBC as indicated Coronary artery disease with h/o previous CABG - Appears stable. Patient is asymptomatic. - Continue propranolol and statin - ASA 81mg daily - Clonidine PRN Hypertension - controlled - MARGIE inhibitor held due to hypotension. Diabetes mellitus type 2 - blood sugars well controlled - accu checks discontinued Alcohol abuse Transaminitis, resolved - AST and ALT now within normal range. - Continue with daily thiamine and folic acid - Alcohol cessation recommended Tobacco abuse - Cessation recommended. Chronic essential tremor - Continue Propranolol Allergic rhinitis - Flonase Indigestion -Patient on Protonix and Maalox. DVT prophylaxis with Lovenox Blaine Corrales MD Jan 15, 2017 09:21
[2017-01-15] MEDS: LACTATED RINGER'S 1000 ML INJ 1,000 ML IV SCH ×2 (09:34→18:30)
--- NOTE | 2017-01-15 11:25 | PD.ORT.PN ---
Subjective Subjective Remarks Pain controlled Doing well Objective Vitals Vital Signs Date Time Temp Pulse Resp B/P (MAP) Pulse Ox O2 Delivery O2 Flow Rate FiO2 01/15/17 08:00 96.2 83 18 127/70 (89) 96 01/14/17 19:05 98.6 73 16 109/65 (80) 98 01/14/17 18:58 Room Air 01/14/17 18:36 97 01/14/17 15:30 97.5 73 15 123/66 (85) 97 01/14/17 12:00 97.4 67 18 120/73 (89) 98 I/O 01/14/17 01/14/17 01/14/17 01/15/17 01/15/17 01/15/17 07:00 15:00 23:00 07:00 15:00 23:00 Intake Total 1119 ml 800 ml 1220 ml 995 ml Output Total 1475 ml 2100 ml 0 ml 1900 ml Balance -356 ml -1300 ml 1220 ml -905 ml Intake Oral 604 ml 800 ml 720 ml 480 ml IV Total 515 ml 500 ml 515 ml Output Urine Total 1475 ml 2100 ml 1900 ml Drainage Total 0 ml # Voids 4 # Bowel Movements 0 1 1 1 Result Diagram: 01/15/17 0724 Imaging Last 24 hours Impressions Pelvis X-Ray 11/07/16 1355 Signed Impressions: Service Date/Time: Monday, November 07, 2016 13:34 - CONCLUSION: No acute disease. Behzad Finch Jr., MD Chest X-Ray 11/07/16 1355 Signed Impressions: Service Date/Time: Monday, November 07, 2016 13:34 - CONCLUSION: No acute disease. Jac Gonzales MD Objective Remarks RLE: +fracture boot. dressings clean and dry LLE: +short leg splint. intact. +vac. good seal. harvest site dressings with mild bloody drainage Assessment & Plan Assessment and Plan 1) Right Open Tibia Fracture s/p exfix revision with ORIF 2) Left Open Tibia Fracture s/p Soleus muscle flap with IMN and removal of exfix 3) left tibia plateau fracture treated nonoperatively 4) s/p STSG left leg LLE: -50%WB for transfers only -maintain splint at all times -maintain vac at all times -vac settinmmHg, low, continuous -will plan to remove vac at bedside on Thursday or Thursday and hopefully discontinue wound VAC -daily dressing changes of harvest site. change ABD only. leave xeroform in place. RLE: -NWB -fx boot at all times except for PT -PT to work on ankle ROM -daily dressing changes of pin sites with xeroform/4x4/tamia Ronald Hatch Jr. Jan 15, 2017 11:25
[2017-01-15 12:00] VITALS: BP 118/80; PULSE 68; RESP 18; TEMP 98.1; O2SAT 95
[2017-01-15] MEDS: FERROUS SULFATE 325 MG (65 MG ELEMENTAL IRON) TAB PO SCH ×2 (12:31→18:38)
[2017-01-15 16:00] VITALS: BP 114/76; PULSE 69; RESP 18; TEMP 97.6; O2SAT 97
[2017-01-15 20:00] VITALS: BP 125/75; PULSE 76; RESP 18; TEMP 97.7; O2SAT 98
[2017-01-15] MEDS: MAGNESIUM HYDROXIDE SUSP 30 ML CUP PO SCH (21:35)
[2017-01-15] MEDS: traZODone HCL 100 MG TAB PO SCH (21:36)
[2017-01-15] MEDS: LIDOCAINE HCL 5% PATCH T-DERMAL SCH (21:36)
[2017-01-15] MEDS: PRAVASTATIN SOD 80 MG TAB PO SCH (21:36)
[2017-01-16] MEDS: LACTATED RINGER'S 1000 ML INJ 1,000 ML IV SCH ×3 (03:42→22:23)
[2017-01-16] MEDS: ACETAMINOPHEN/HYDROcodone 325 MG/10 MG TAB PO PRN ×4 (05:11→19:33)
[2017-01-16] MEDS: MORPHINE SULFATE 30 MG CONTROLLED RELEASE TAB PO SCH ×3 (06:05→22:26)
[2017-01-16 07:56] VITALS: BP 109/65; PULSE 72; RESP 17; TEMP 97.3; O2SAT 94
[2017-01-16] MEDS: FLUTICASONE PROPIONATE 50 MCG/ACT 16 GM NASAL SPRAY NASAL SCH ×2 (09:00→19:33)
[2017-01-16] MEDS: NEOMYCIN/POLYMYXIN/BACITRACIN OINT 15 GM TUBE TOPICAL SCH (09:00)
[2017-01-16] MEDS: REMOVE OLD LIDOCAINE PATCH T-DERMAL SCH (09:00)
[2017-01-16] MEDS: ASPIRIN 81 MG CHEW TAB CHEW SCH (09:00)
--- NOTE | 2017-01-16 09:40 | HHI.PR ---
Subjective Remarks in no distress. pain is controlled. no fever. no new complaints. Objective Vitals Vital Signs Date Time Temp Pulse Resp B/P (MAP) Pulse Ox O2 Delivery O2 Flow Rate FiO2 01/16/17 07:56 97.3 72 17 109/65 (80) 94 01/15/17 20:00 97.7 76 18 125/75 (92) 98 01/15/17 16:00 97.6 69 18 114/76 (89) 97 01/15/17 12:00 98.1 68 18 118/80 (93) 95 I/O 01/15/17 01/15/17 01/15/17 01/16/17 01/16/17 01/16/17 07:00 15:00 23:00 07:00 15:00 23:00 Intake Total 995 ml 960 ml 1220 ml 1220 ml Output Total 1900 ml 0 ml Balance -905 ml 960 ml 1220 ml 1220 ml Intake Oral 480 ml 960 ml 720 ml 720 ml IV Total 515 ml 500 ml 500 ml Output Urine Total 1900 ml Drainage Total 0 ml # Voids 3 3 2 # Bowel Movements 1 0 Result Diagram: 01/15/17 0724 Imaging Last Impressions Ankle X-Ray 01/09/17 0000 Signed Impressions: Service Date/Time: Monday, January 09, 2017 12:59 - CONCLUSION: Fluoroscopic images during placement of screws along the distal tibia and single long screw along the distal fibula. Fractures are again seen.. Jac Gonzales MD Tibia/Fibula X-Ray 01/01/17 0000 Signed Impressions: Service Date/Time: December 09:33 - CONCLUSION: There are no complications. Paul Fuentes MD Knee X-Ray 01/01/17 0000 Signed Impressions: Service Date/Time: December 09:37 - CONCLUSION: Lateral tibial plateau fracture without involvement of the articulating surface. Paul Fuentes MD Foot X-Ray 12/27/16 0000 Signed Impressions: Service Date/Time: Tuesday, December 27, 2016 16:50 - CONCLUSION: Distal tibia and fibula fractures with internal fixation hardware. Samir Massey MD Gall Bladder Ultrasound 12/05/16 0000 Signed Impressions: Service Date/Time: Monday, December 05, 2016 08:38 - CONCLUSION: Unremarkable exam. Gallbladder is within normal limits with no evidence of cholelithiasis. Ronald Rao MD Abdomen X-Ray 12/04/16 0000 Signed Impressions: Service Date/Time: , December 04, 2016 10:42 - CONCLUSION: Unremarkable bowel gas pattern. Ronald Rao MD Chest X-Ray 11/20/16 0000 Signed Impressions: Service Date/Time: November 17:08 - CONCLUSION: 1. No acute abnormality or significant interval change. Sukhi Stevens MD Pelvis X-Ray 11/07/16 1355 Signed Impressions: Service Date/Time: Monday, November 07, 2016 13:34 - CONCLUSION: No acute disease. Behzad Finch Jr., MD Objective Remarks GENERAL: This is a well-nourished, well-developed patient, in no apparent distress. CARDIOVASCULAR: Regular rate and regular rhythm without murmurs, gallops, or rubs. RESPIRATORY: Clear to auscultation. Breath sounds equal bilaterally. No wheezes , rales, or rhonchi. GASTROINTESTINAL: Abdomen soft, non-tender, nondistended. Normal, active bowel sounds MUSCULOSKELETAL: both legs covered with clean dressing. NEURO: Alert & Oriented x4 to person, place, time, situation. Moves all ext x4 Procedures 1.s/p I&D with ex fix application bilateral tibias s/p wound vac application left tibia 2.With the assistance of RN, under sterile technique the avulsed skin of the right middle finger was clipped. No bleeding noted. Patient gave consent 3.Open reduction internal fixation of right distal tibia and fibula fractures Nonoperative treatment left tibial plateau fracture Irrigation and debridement of left tibia shaft fracture, removal external fixation, soleus muscle rotational flap, intramedullary nail fixation left tibia , application of wound VAC dressing 4.11/13 Irrigation and debridement of left tibia, application wound VAC dressing 5. 8 Irrigation and debridement of left open tibia fracture with application of wound VAC dressing 6. 8 wound vac change at the bedside 7. 8 wound vac change at the bedside 8. 12/08 wound vac change at the bedside 9. 12/09 I&D left tibia, application of wound VAC dressing and application of AlloMax allograft dermal matrix 10. 01/09 Removal of external fixation right lower extremity, irrigation debridement of left leg, split-thickness skin graft left leg, application wound VAC dressing Medications and IVs Current Medications Cefazolin Sodium/ Dextrose 50 ml @ As Directed STK-MED ONCE .ROUTE Last administered on 11/13/16 08:09; Start 11/07/16 at 13:58; Stop 11/07/16 at 13:59 ; Status DC Diphtheria/ Tetanus/Acell Pertussis (Boostrix Inj) 0.5 ml STK-MED ONCE IM ; Start 11/07/16 at 13:58; Stop 11/07/16 at 13:59; Status DC Morphine Sulfate (Morphine Inj) 8 mg STK-MED ONCE .ROUTE ; Start 11/07/16 at 14: 01; Stop 11/07/16 at 14:02; Status DC Hydromorphone HCl (Dilaudid Pf Inj) 1 mg STK-MED ONCE .ROUTE Last administered on 11/07/16 19:15; Start 11/07/16 at 14:05; Stop 11/07/16 at 14:06; Status DC Lactated Ringer's 1,000 ml @ 100 mls/hr Q10H IV ; Start 11/07/16 at 14:22; Stop 11/07/16 at 19:02; Status DC Sodium Chloride (NS Flush) 2 ml UNSCH PRN IV FLUSH FLUSH AFTER USING IV ACCESS Last administered on 12/11/16 11:31; Start 11/07/16 at 14:30 Sodium Chloride (NS Flush) 2 ml BID IV FLUSH Last administered on 01/15/17 21: 35; Start 11/07/16 at 21:00 Ondansetron HCl (Zofran Inj) 4 mg Q6H PRN IV NAUSEA OR VOMITING Last administered on 12/04/16 06:13; Start 11/07/16 at 14:30 Pantoprazole Sodium (Protonix Inj) 40 mg Q24H IV Last administered on 20:00; Start 11/07/16 at 17:00; Stop 11/08/16 at 08:09; Status DC Docusate Sodium (Colace) 100 mg BID PO ; Start 11/07/16 at 21:00; Stop 11/08/16 at 13:04; Status DC Cefazolin Sodium 1000 mg/Sodium Chloride 100 ml @ 200 mls/hr Q8H IV ; Start at 22:00; Stop 11/07/16 at 22:00; Status DC Miscellaneous Information (Post-op Orders (for Pharmacy)) STAT ONCE XX ; Start 11/07/16 at 14:30; Stop 11/07/16 at 15:39; Status DC Oxycodone/ Acetaminophen (Percocet 10-325 Mg) 1 tab Q4H PRN PO 3-5; Start 11/07 at 14:30; Stop 11/07/16 at 19:03; Status DC Hydromorphone HCl (Dilaudid Pf Inj) 1 mg Q2H PRN IV Pain 6-10; Start 11/07/16 at 14:30; Stop 11/07/16 at 19:11; Status DC Naloxone HCl (Narcan Inj) 0.4 mg UNSCH PRN IV SEE LABEL COMMENTS; Start at 14:30 Gentamicin Sulfate (Gentamicin Inj) 80 mg Q8H IM ; Start 11/07/16 at 14:30; Stop 11/07/16 at 15:37; Status DC Hydromorphone HCl (Dilaudid Pf Inj) 0.5 mg HAMMER ADJUSTER DOSING PRN IV PUSH pain; Start 11/07/16 at 14:45; Stop 11/07/16 at 19:11; Status DC Gentamicin Sulfate/Sodium Chloride 100 ml @ 200 mls/hr Q8H IV ; Start 11/07/16 at 17:00; Status Cancel Miscellaneous Information (Post-op Orders (for Pharmacy)) UNSCH X1 XX ; Start 11/07/16 at 15:45; Stop 11/08/16 at 06:00; Status DC Cefazolin Sodium (Ancef Inj) 1,000 mg STK-MED ONCE .ROUTE Last administered on 11/07/16 16:26; Start 11/07/16 at 15:48; Stop 11/07/16 at 15:49; Status DC Gentamicin Sulfate (Gentamicin Inj) 80 mg STK-MED ONCE .ROUTE Last administered on 11/07/16 16:26; Start 11/07/16 at 15:49; Stop 11/07/16 at 15:50 ; Status DC Acetaminophen (Ofirmev Inj) 1,000 mg STK-MED ONCE IV ; Start 11/07/16 at 15:56; Stop 11/07/16 at 15:57; Status DC Midazolam HCl (Versed Inj) 2 mg STK-MED ONCE .ROUTE ; Start 11/07/16 at 15:56; Stop 11/07/16 at 15:57; Status DC Famotidine (Pepcid Inj) 20 mg STK-MED ONCE .ROUTE ; Start 11/07/16 at 15:56; Stop 11/07/16 at 15:57; Status DC Gentamicin Sulfate (Gentamicin Inj) 240 mg STK-MED ONCE IRRIGATION Last administered on 11/07/16 16:26; Start 11/07/16 at 16:26; Stop 11/07/16 at 16:42 ; Status DC Fentanyl Citrate (fentaNYL INJ) 250 mcg STK-MED ONCE .ROUTE ; Start 11/07/16 at 17:03; Stop 11/07/16 at 17:04; Status DC Gentamicin Sulfate (Gentamicin Inj) 240 mg STK-MED ONCE .ROUTE Last administered on 11/07/16 16:26; Start 11/07/16 at 17:10; Stop 11/07/16 at 17:11 ; Status DC Lactated Ringer's 1,000 ml @ 100 mls/hr Q10H IV Last administered on 07:51; Start 11/07/16 at 18:00; Stop 11/08/16 at 12:46; Status DC Enoxaparin Sodium (Lovenox Inj) 30 mg Q12H SQ ; Start 11/08/16 at 17:00; Stop at 11:48; Status DC Cefazolin Sodium/ Dextrose 50 ml @ 100 mls/hr Q8H IV Last administered on 11/10 08:16; Start 11/08/16 at 00:00; Stop 11/10/16 at 12:47; Status DC Gentamicin Sulfate/Sodium Chloride 100 ml @ 200 mls/hr Q8H IV Last administered on 11/10/16 16:30; Start 11/08/16 at 00:00; Stop 11/10/16 at 16:29 ; Status DC Acetaminophen/ Hydrocodone Bitart ([place] 10-325 Mg) 1 tab Q3H PRN PO PAIN 3<10 Last administered on 11/08/16 10:36; Start 11/07/16 at 18:00; Stop 11/08/16 at 13:04; Status DC Morphine Sulfate (Morphine Inj) 4 mg Q3H PRN IV PUSH Break thru Pain Last administered on 11/08/16 07:50; Start 11/07/16 at 18:00; Stop 11/08/16 at 12:21 ; Status DC Ketorolac Tromethamine (Toradol Inj) 30 mg Q12H IVP Last administered on 05:32; Start 11/07/16 at 18:00; Stop 11/10/16 at 06:01; Status DC Bacitracin (Baciguent Oint) 15 applic STK-MED ONCE .ROUTE Last administered on 11/07/16 18:09; Start 11/07/16 at 18:09; Stop 11/07/16 at 18:10; Status DC Miscellaneous Information ALL NURSING DEPARTME... UNSCH PRN .XX SEE LABEL COMMENTS; Start 11/07/16 at 18:33; Stop 11/08/16 at 18:32; Status DC Acetaminophen (Tylenol) 650 mg Q4H PRN PO Temp > 100.4, pain 1-2; Start at 08:15 Magnesium Hydroxide (Milk Of Magnesia Liq) 30 ml DAILY PRN PO for Severe Constipation Last administered on 11/09/16 20:15; Start 11/08/16 at 08:15; Stop 11/10/16 at 09:00; Status DC Calcium Carbonate (Tums Chew) 1,000 mg TID PRN CHEW DYSPEPSIA Last administered on 01/09/17 22:36; Start 11/08/16 at 08:15 Dextrose (D50w (Vial) Inj) 50 ml UNSCH PRN IV HYPOGLYCEMIA-SEE COMMENTS; Start 11/08/16 at 08:15; Stop 12/03/16 at 09:16; Status DC Glucagon (Glucagon Inj) 1 mg UNSCH PRN OTHER HYPOGLYCEMIA-SEE COMMENTS; Start 11/08/16 at 08:15; Stop 12/03/16 at 09:16; Status DC Insulin Aspart (NovoLOG SUPPLEMENTAL SCALE) 1 ACHS SLIDING SCALE SQ Last administered on 12/01/16 13:21; Start 11/08/16 at 11:00; Stop 12/03/16 at 09:16 ; Status DC Enalaprilat (Vasotec Inj) 1.25 mg Q6H PRN IV SBP> OR = 180, DBP> OR = 100; Start 11/08/16 at 08:15 Clonidine (Catapres) 0.1 mg Q6H PRN PO SBP> OR = 180, DBP> OR = 100; Start at 08:15 Gabapentin (Neurontin) 400 mg TID PO Last administered on 11/16/16 09:10; Start 11/08/16 at 13:00; Stop 11/16/16 at 11:46; Status DC Morphine Sulfate (Morphine Inj) 6 mg Q3H PRN IV PUSH PAIN 6-10 Last administered on 11/17/16 15:09; Start 11/08/16 at 15:00; Stop 11/18/16 at 16:37 ; Status DC Aspirin (Aspirin Chew) 81 mg DAILY CHEW Last administered on 01/15/17 08:46; Start 11/08/16 at 12:45 Ferrous Sulfate (Ferrous Sulfate) 325 mg DAILY PO Last administered on 08:11; Start 11/08/16 at 12:45; Stop 12/05/16 at 09:25; Status DC Lisinopril (Prinivil) 25 mg DAILY PO Last administered on 11/18/16 09:59; Start 11/08/16 at 12:45; Status Future Hold Nitroglycerin (Nitrostat Sl) 0.4 mg Q6HR PRN SL CHEST PAIN; Start 11/08/16 at 12:45 Pantoprazole Sodium (Protonix) 40 mg DAILY PO Last administered on 01/15/17 08 :46; Start 11/08/16 at 12:45 Pravastatin Sodium (Pravachol) 80 mg HS PO Last administered on 01/15/17 21:36 ; Start 11/08/16 at 21:00 Propranolol HCl (Inderal) 80 mg Q12HR PO Last administered on 11/18/16 10:01; Start 11/08/16 at 21:00; Stop 11/22/16 at 12:49; Status DC Miscellaneous (Pill Splitter) 1 ea UNSCH PRN OTHER SEE LABEL COMMENTS; Start at 12:45 Senna/Docusate Sodium (Elke-Colace) 1 tab BID PO Last administered on 21:35; Start 11/08/16 at 12:45; Status Future hold Lactulose (Lactulose Liq) 30 ml DAILY PRN PO No BM in 2 days; Start 11/08/16 at 12:45; Stop 11/10/16 at 07:47; Status DC Acetaminophen/ Hydrocodone Bitart ([place] 10-325 Mg) 1.5 tab Q3H PRN PO PAIN 3- 10 Last administered on 11/09/16 23:46; Start 11/08/16 at 15:00; Stop 11/10/16 at 12:45; Status DC Folic Acid (Folate) 1 mg DAILY PO Last administered on 11/12/16 09:14; Start 11/09/16 at 09:00; Stop 11/14/16 at 08:59; Status DC Thiamine HCl (Vitamin B1) 100 mg DAILY PO Last administered on 01/15/17 08:47 ; Start 11/09/16 at 09:00 Multivitamins/ Minerals Therapeutic (Theragran M Tab) 1 tab DAILY PO Last administered on 11/12/16 09:13; Start 11/09/16 at 09:00; Stop 11/14/16 at 08:59 ; Status DC Flumazenil (Romazicon Inj) 0.2 mg Q1M PRN IV PUSH SEE LABEL COMMENTS; Start at 13:00 Lorazepam (Ativan) 1 mg Q4H PRN PO CIWA 8 - 10; Start 11/08/16 at 13:00; Stop 11/26/16 at 16:05; Status DC Lorazepam (Ativan Inj) 1 mg Q4H PRN IV PUSH CIWA 8 - 10; Start 11/08/16 at 13: 00; Stop 11/26/16 at 16:05; Status DC Lorazepam (Ativan) 2 mg Q2H PRN PO CIWA 11-14; Start 11/08/16 at 13:00; Stop at 16:05; Status DC Lorazepam (Ativan Inj) 2 mg Q2H PRN IV PUSH CIWA 11-14; Start 11/08/16 at 13:00 ; Stop 11/26/16 at 16:05; Status DC Lorazepam (Ativan Inj) 2 mg Q1H PRN IV PUSH CIWA 15-20; Start 11/08/16 at 13:00 ; Stop 11/26/16 at 16:05; Status DC Lorazepam (Ativan Inj) 2 mg Q15M PRN IV PUSH CIWA > 20; Start 11/08/16 at 13:00 ; Stop 11/26/16 at 16:05; Status DC Haloperidol Lactate (Haldol Inj) 2 mg Q15M PRN IM SEE LABEL COMMENTS; Start at 13:00 Lactated Ringer's 1,000 ml @ 30 mls/hr Q24H PRN IV SEE LABEL COMMENTS; Start at 00:45; Stop 11/09/16 at 12:05; Status DC Sodium Chloride 500 ml @ 30 mls/hr [id number] PRN IV SEE LABEL COMMENTS; Start at 00:45; Stop 11/09/16 at 12:05; Status DC Metoprolol Tartrate (Lopressor) 25 mg TRANSVERSE ABDOMINAL MUSCLE SURGEON PRN PO SEE LABEL COMMENTS; Start 11/09/16 at 00:45; Stop 11/12/16 at 00:44; Status DC Povidone Iodine (Betadine 5% Antisepsis Kit) 1 applic TRANSVERSE ABDOMINAL MUSCLE SURGEON PRN EACH NARE SEE LABEL COMMENTS; Start 11/09/16 at 00:45; Stop 11/12/16 at 00:44; Status DC Chlorhexidine Gluconate (Chlorhexidine 2% Cloth) 3 pack TRANSVERSE ABDOMINAL MUSCLE SURGEON PRN TOPICAL SEE LABEL COMMENTS; Start 11/09/16 at 00:45; Stop 11/09/16 at 12:05; Status DC Insulin Human Regular (NovoLIN R INJ) See Protocol Table ... TRANSVERSE ABDOMINAL MUSCLE SURGEON PRN SQ SEE PROTOCOL TABLE; Start 11/09/16 at 00:45; Stop 11/12/16 at 00:44; Status DC Potassium Chloride (KCl) 20 meq ONCE ONCE PO Last administered on 11/09/16 11 :40; Start 11/09/16 at 11:00; Stop 11/09/16 at 11:01; Status DC Neomycin/ Polymyxin/ Bacitracin (Neosporin Oint) 1 applic DAILY TOPICAL Last administered on 01/10/17 09:00; Start 11/10/16 at 09:00 Lactulose (Lactulose Liq) 30 ml DAILY PO Last administered on 12/02/16 09:18; Start 11/10/16 at 09:00; Stop 12/08/16 at 09:52; Status DC Magnesium Hydroxide (Milk Of Magnesia Liq) 30 ml HS PO Last administered on 21:35; Start 11/10/16 at 21:00; Status Future hold Famotidine (Pepcid Inj) 20 mg STK-MED ONCE .ROUTE Last administered on 08:51; Start 11/10/16 at 08:51; Stop 11/10/16 at 08:52; Status DC Albuterol Sulfate (Albuterol Neb) 2.5 mg STK-MED ONCE .ROUTE Last administered on 11/10/16 08:55; Start 11/10/16 at 08:53; Stop 11/10/16 at 08:54; Status DC Gentamicin Sulfate (Gentamicin Inj) 240 mg STK-MED ONCE .ROUTE Last administered on 11/10/16 09:48; Start 11/10/16 at 09:02; Stop 11/10/16 at 09:03 ; Status DC Acetaminophen (Ofirmev Inj) 1,000 mg STK-MED ONCE IV ; Start 11/10/16 at 09:13; Stop 11/10/16 at 09:14; Status DC Lactated Ringer's 1,000 ml @ 100 mls/hr Q10H IV Last administered on 00:53; Start 11/10/16 at 13:00; Stop 11/11/16 at 11:56; Status DC Enoxaparin Sodium (Lovenox Inj) 30 mg Q12H SQ Last administered on 12/04/16 00 :03; Start 11/11/16 at 00:00; Stop 12/04/16 at 09:43; Status DC Cefazolin Sodium/ Dextrose 50 ml @ 100 mls/hr Q8H IV Last administered on 11/13 00:05; Start 11/10/16 at 16:00; Stop 11/13/16 at 08:29; Status DC Gentamicin Sulfate/Sodium Chloride 100 ml @ 200 mls/hr Q8H IV Last administered on 11/13/16 10:00; Start 11/10/16 at 18:00; Stop 11/13/16 at 10:29 ; Status DC Acetaminophen/ Hydrocodone Bitart ([place] 10-325 Mg) 1 tab Q3H PRN PO PAIN 3<10 Last administered on 11/18/16 04:34; Start 11/10/16 at 11:45; Stop 11/18/16 at 16 :37; Status DC Calcium/Vitamin D (Oscal-D 250-125) 250 mg TID PO Last administered on 18:39; Start 11/10/16 at 13:00 Meperidine HCl (*DEMEROL INJ PERIprocedural ONLY) 25 mg STK-MED ONCE .ROUTE Last administered on 11/10/16 12:36; Start 11/10/16 at 12:36; Stop 11/10/16 at 12:37; Status DC Miscellaneous Information ALL NURSING DEPARTME... UNSCH PRN .XX SEE LABEL COMMENTS; Start 11/10/16 at 12:29; Stop 11/11/16 at 12:28; Status DC Midazolam HCl (Versed Inj) 2 mg STK-MED ONCE .ROUTE ; Start 11/10/16 at 12:48; Stop 11/10/16 at 12:49; Status DC Fentanyl Citrate (fentaNYL INJ) 250 mcg STK-MED ONCE .ROUTE ; Start 11/10/16 at 12:48; Stop 11/10/16 at 12:49; Status DC Morphine Sulfate (*morphine INJ PERIprocedure ONLY) 8 mg STK-MED ONCE .ROUTE Last administered on 11/10/16 14:36; Start 11/10/16 at 14:36; Stop 11/10/16 at 14:37; Status DC Bisacodyl (Dulcolax Ec) 10 mg ONCE ONCE PO Last administered on 11/11/16 10: 17; Start 11/11/16 at 07:00; Stop 11/11/16 at 07:04; Status DC Bisacodyl (Dulcolax Supp) 10 mg ONCE ONCE RECTAL Last administered on 10:17; Start 11/11/16 at 07:00; Stop 11/11/16 at 07:04; Status DC Sodium Chloride 250 ml @ 15 mls/hr ONCE ONCE IV Last administered on 11:19; Start 11/11/16 at 11:15; Stop 11/12/16 at 03:54; Status DC Furosemide (Lasix Inj) 20 mg ONCE ONCE IV ; Start 11/11/16 at 11:15; Stop 11/11 at 11:16; Status Cancel Furosemide (Lasix Inj) 20 mg ONCE ONCE IV Last administered on 11/12/16t 11:18 ; Start 11/12/16 at 11:00; Stop 11/12/16 at 11:01; Status DC Albuterol/ Ipratropium (Duoneb Neb) 1 ampule Q4HR NEB PRN NEB wheezing; Start 11/12/16 at 13:15 Lactated Ringer's 1,000 ml @ 30 mls/hr Q24H PRN IV SEE LABEL COMMENTS; Start at 05:00; Stop 11/16/16 at 04:59; Status Cancel Sodium Chloride 500 ml @ 30 mls/hr [id number] PRN IV SEE LABEL COMMENTS; Start at 05:00; Stop 11/16/16 at 04:59; Status DC Metoprolol Tartrate (Lopressor) 25 mg TRANSVERSE ABDOMINAL MUSCLE SURGEON PRN PO SEE LABEL COMMENTS; Start 11/13/16 at 05:00; Stop 11/16/16 at 04:59; Status DC Povidone Iodine (Betadine 5% Antisepsis Kit) 1 applic TRANSVERSE ABDOMINAL MUSCLE SURGEON PRN EACH NARE SEE LABEL COMMENTS; Start 11/13/16 at 05:00; Stop 11/16/16 at 04:59; Status DC Chlorhexidine Gluconate (Chlorhexidine 2% Cloth) 3 pack TRANSVERSE ABDOMINAL MUSCLE SURGEON PRN TOPICAL SEE LABEL COMMENTS; Start 11/13/16 at 05:00; Stop 11/16/16 at 04:59; Status DC Lidocaine HCl (Xylocaine 2% Jelly) 30 applic STK-MED ONCE .ROUTE ; Start at 07:15; Stop 11/13/16 at 07:16; Status DC Mineral Oil (Muri-Lube Oil) 10 ml STK-MED ONCE .ROUTE ; Start 11/13/16 at 07:15 ; Stop 11/13/16 at 07:16; Status DC Gentamicin Sulfate (Gentamicin Inj) 240 mg STK-MED ONCE .ROUTE Last administered on 11/13/16 08:20; Start 11/13/16 at 07:15; Stop 11/13/16 at 07:16 ; Status DC Albuterol Sulfate (Albuterol Neb) 2.5 mg STK-MED ONCE .ROUTE ; Start 11/13/16 at 07:34; Stop 11/13/16 at 07:35; Status DC Dexamethasone Sodium Phosphate (Decadron Inj) 4 mg STK-MED ONCE .ROUTE ; Start 11/13/16 at 07:36; Stop 11/13/16 at 07:37; Status DC Famotidine (Pepcid Inj) 20 mg STK-MED ONCE .ROUTE ; Start 11/13/16 at 07:36; Stop 11/13/16 at 07:37; Status DC Albuterol/ Ipratropium (Duoneb Neb) 1 ampule STK-MED ONCE .ROUTE Last administered on 11/13/16 07:50; Start 11/13/16 at 07:47; Stop 11/13/16 at 07:48 ; Status DC Lactated Ringer's 1,000 ml @ 100 mls/hr Q10H IV Last administered on 12:14; Start 11/13/16 at 08:42; Stop 11/18/16 at 16:33; Status DC Cefazolin Sodium/ Dextrose 50 ml @ 100 mls/hr Q8H IV Last administered on 04:43; Start 11/13/16 at 12:00; Stop 11/20/16 at 11:59; Status DC Gentamicin Sulfate/Sodium Chloride 100 ml @ 200 mls/hr Q8H IV Last administered on 11/16/16 09:14; Start 11/13/16 at 18:00; Stop 11/16/16 at 17:59 ; Status DC Midazolam HCl (Versed Inj) 2 mg STK-MED ONCE .ROUTE ; Start 11/13/16 at 09:25; Stop 11/13/16 at 09:26; Status DC Fentanyl Citrate (fentaNYL INJ) 250 mcg STK-MED ONCE .ROUTE ; Start 11/13/16 at 09:25; Stop 11/13/16 at 09:26; Status DC Zolpidem Tartrate (Ambien) 5 mg HS PRN PO Insomnia Last administered on 22:24; Start 11/14/16 at 11:00 Trazodone HCl (Desyrel) 100 mg HS PO Last administered on 01/15/17 21:36; Start 11/14/16 at 21:00 Morphine Sulfate (Oramorph Sr) 15 mg Q12HR PO Last administered on 11/18/16 10: 00; Start 11/16/16 at 21:00; Stop 11/18/16 at 16:36; Status DC Morphine Sulfate (Oramorph Sr) 15 mg ONCE ONCE PO Last administered on 12:32; Start 11/16/16 at 10:15; Stop 11/16/16 at 10:24; Status DC Gabapentin (Neurontin) 600 mg TID PO Last administered on 01/15/17 18:39; Start 11/16/16 at 13:00 Sodium Chloride 1,000 ml @ 999 mls/hr BOLUS ONCE IV Last administered on 17:22; Start 11/18/16 at 16:45; Stop 11/18/16 at 17:45; Status DC Morphine Sulfate (Oramorph Sr) 30 mg Q12HR PO Last administered on 11/29/16 09 :24; Start 11/18/16 at 21:00; Stop 11/29/16 at 14:26; Status DC Morphine Sulfate (Morphine Inj) 6 mg Q4H PRN IV PUSH PAIN SCALE 5 TO 10 Last administered on 11/19/16 05:59; Start 11/18/16 at 16:45; Stop 11/20/16 at 00:46; Status DC Morphine Sulfate (Morphine Inj) 3 mg Q3H PRN IV PUSH PAIN SCALE 1 TO 4 Last administered on 11/19/16 16:36; Start 11/18/16 at 16:45; Stop 11/20/16 at 00:46; Status DC Sodium Chloride 1,000 ml @ 125 mls/hr Q8H IV Last administered on 11/19/16 16: 15; Start 11/19/16 at 00:15; Stop 11/19/16 at 19:21; Status DC Sodium Chloride 500 ml @ 500 mls/hr BOLUS ONCE IV Last administered on 00:15; Start 11/19/16 at 00:15; Stop 11/19/16 at 01:14; Status DC Nystatin (Mycostatin Powder) 1 applic Q12HR TOPICAL Last administered on 08:54; Start 11/19/16 at 21:00; Stop 11/28/16 at 13:46; Status DC Acetaminophen/ Hydrocodone Bitart ([place] 7.5-325 Mg) 1 tab Q4H PRN PO PAIN SCALE 1 TO 4; Start 11/20/16 at 00:45; Stop 11/28/16 at 13:46; Status DC Acetaminophen/ Hydrocodone Bitart ([place] 10-325 Mg) 1 tab Q4H PRN PO PAIN SCALE 3-5 Last administered on 12/23/16 08:58; Start 11/20/16 at 00:45 Hydromorphone HCl (Dilaudid Pf Inj) 1 mg Q4H PRN IV PUSH BREAKTHROUGH PAIN Last administered on 12/17/16 10:38; Start 11/20/16 at 00:45; Stop 12/18/16 at 10:47; Status DC Propranolol HCl (Inderal) 40 mg Q12HR PO Last administered on 12/08/16 08:01; Start 11/22/16 at 21:00; Stop 12/08/16 at 10:00; Status DC Lactated Ringer's 1,000 ml @ 30 mls/hr Q24H PRN IV SEE LABEL COMMENTS; Start at 02:45; Stop 11/27/16 at 02:44; Status DC Sodium Chloride 500 ml @ 30 mls/hr [id number] PRN IV SEE LABEL COMMENTS; Start 11/24/16 at 02:45; Stop 11/27/16 at 02:44; Status DC Povidone Iodine (Betadine 5% Antisepsis Kit) 1 applic TRANSVERSE ABDOMINAL MUSCLE SURGEON PRN EACH NARE SEE LABEL COMMENTS; Start 11/24/16 at 02:45; Stop 11/27/16 at 02:44; Status DC Chlorhexidine Gluconate (Chlorhexidine 2% Cloth) 3 pack [employer] PRN TOPICAL SEE LABEL COMMENTS; Start 11/24/16 at 02:45; Stop 11/27/16 at 02:44; Status DC Insulin Human Regular (NovoLIN R INJ) See Protocol Table ... [employer] PRN SQ SEE PROTOCOL TABLE; Start 11/24/16 at 02:45; Stop 11/27/16 at 02:44; Status DC Prochlorperazine Edisylate (Compazine Inj) 10 mg Q8H PRN IV PUSH NAUSEA/ VOMITING Last administered on 11/25/16 18:00; Start 11/25/16 at 16:15 Sodium Chloride 500 ml @ 500 mls/hr BOLUS ONCE IV Last administered on 18:06; Start 11/25/16 at 17:00; Stop 11/25/16 at 17:59; Status DC Gentamicin Sulfate (Gentamicin Inj) 240 mg STK-MED ONCE .ROUTE Last administered on 11/28/16 10:42; Start 11/28/16 at 07:18; Stop 11/28/16 at 07:19 ; Status DC Vancomycin HCl (Vancomycin Inj) 1,000 mg STK-MED ONCE .ROUTE Last administered on 12/09/16 15:25; Start 11/28/16 at 07:38; Stop 11/28/16 at 07:39; Status DC Cefazolin Sodium/ Dextrose 50 ml @ As Directed STK-MED ONCE .ROUTE Last administered on 12/09/16 15:20; Start 11/28/16 at 07:38; Stop 11/28/16 at 07:39 ; Status DC Sodium Chloride 250 ml @ As Directed STK-MED ONCE .ROUTE ; Start 11/28/16 at 07 :39; Stop 11/28/16 at 07:40; Status DC Fentanyl Citrate (fentaNYL INJ) 250 mcg STK-MED ONCE .ROUTE ; Start 11/28/16 at 10:15; Stop 11/28/16 at 10:16; Status DC Cefazolin Sodium (Ancef Inj) 1,000 mg STK-MED ONCE .ROUTE Last administered on 11/28/16 10:31; Start 11/28/16 at 10:23; Stop 11/28/16 at 10:24; Status DC Lactated Ringer's 1,000 ml @ 100 mls/hr Q10H IV ; Start 11/28/16 at 10:59; Stop 12/03/16 at 09:16; Status DC Cefazolin Sodium/ Dextrose 50 ml @ 100 mls/hr Q8H IV Last administered on 12/01 06:46; Start 11/28/16 at 15:00; Stop 12/01/16 at 14:59; Status DC Magnesium Hydroxide (Milk Of Magnesia Liq) 30 ml Q12H PRN PO MILD - MODERATE CONSTIPATION Last administered on 12/26/16 10:08; Start 11/28/16 at 11:30 Sennosides (Senokot) 17.2 mg Q12H PRN PO MODERATE - SEVERE CONSTIPATION Last administered on 12/25/16 09:48; Start 11/28/16 at 11:30 Bisacodyl (Dulcolax Supp) 10 mg DAILY PRN RECTAL SEVERE CONSITIPATION Last administered on 12/11/16 12:30; Start 11/28/16 at 11:30 Albuterol Sulfate (*ALBUTEROL NEB PERIprocedure ONLY) 2.5 mg STK-MED ONCE NEB Last administered on 11/28/16 11:38; Start 11/28/16 at 11:38; Stop 11/28/16 at 11:39; Status DC Dexamethasone Sodium Phosphate (Decadron Inj) 4 mg STK-MED ONCE .ROUTE ; Start 11/28/16 at 11:51; Stop 11/28/16 at 11:52; Status DC Dexamethasone Sodium Phosphate (Decadron Inj) 4 mg NOW ONCE IV Last administered on 11/28/16 12:00; Start 11/28/16 at 12:00; Stop 11/28/16 at 12:01 ; Status DC Miscellaneous Information ALL NURSING DEPARTME... UNSCH PRN .XX SEE LABEL COMMENTS; Start 11/28/16 at 11:22; Stop 11/29/16 at 11:21; Status DC Morphine Sulfate (*morphine INJ PERIprocedure ONLY) 8 mg STK-MED ONCE .ROUTE Last administered on 11/28/16 12:01; Start 11/28/16 at 12:01; Stop 11/28/16 at 12:02; Status DC Acetaminophen/ Hydrocodone Bitart ([place] 10-325 Mg) 1.5 tab Q4H PRN PO pain 6- 10 Last administered on 12/23/16 17:35; Start 11/28/16 at 15:00; Stop 12/23/16 at 18:38; Status DC Nystatin (Mycostatin Cream) 1 applic Q6HR TOPICAL Last administered on 05:00; Start 11/28/16 at 14:00; Stop 12/16/16 at 13:46; Status DC Morphine Sulfate (Oramorph Sr) 30 mg Q8HR PO Last administered on 12/03/16 06: 09; Start 11/29/16 at 22:00; Stop 12/03/16 at 12:16; Status DC Cetirizine HCl (ZyrTEC) 10 mg HS PO Last administered on 12/07/16 20:03; Start 12/01/16 at 21:00; Stop 12/08/16 at 20:59; Status DC Fluticasone Propionate (Flonase Jerzy Spr) 2 spray DAILY EACH NARE Last administered on 12/15/16 08:54; Start 12/01/16 at 11:00; Stop 12/15/16 at 10:59 ; Status DC Folic Acid (Folate) 1 mg DAILY PO Last administered on 01/15/17 08:47; Start 12/03/16 at 09:00 Morphine Sulfate (Oramorph Sr) 30 mg Q8HR PO Last administered on 01/16/17 06: 05; Start 12/03/16 at 14:00 Lactobacillus Acidophilus (Lactinex) 1 tab TID PO Last administered on 08:10; Start 12/04/16 at 09:00; Stop 12/05/16 at 09:26; Status DC Enoxaparin Sodium (Lovenox Inj) 40 mg DAILY SQ Last administered on 01/15/17 08:47; Start 12/05/16 at 09:00 Al Hydrox/Mg Hydrox/Simethicone (Mag-Al Plus Susp Liq) 30 ml ONCE ONCE PO Last administered on 12/04/16 11:55; Start 12/04/16 at 11:45; Stop 12/04/16 at 11:50; Status DC Al Hydrox/Mg Hydrox/Simethicone (Mag-Al Plus Susp Liq) 30 ml Q6HR PRN PO HEARTBURN, INDIGESTION Last administered on 01/06/17 11:29; Start 12/04/16 at 18:00 Sucralfate (Carafate Liq) 1 gm QID PO Last administered on 12/16/16 13:41; Start 12/05/16 at 09:00; Stop 12/16/16 at 13:43; Status DC Lactobacillus Acidophilus (Lactinex) 1 tab BID PO Last administered on 09:36; Start 12/05/16 at 21:00; Stop 12/18/16 at 10:47; Status DC Polyethylene Glycol (Miralax) 17 gm DAILY PRN PO CONSTIPATION; Start 12/08/16 at 10:00; Stop 12/11/16 at 15:18; Status DC Propranolol HCl (Inderal) 20 mg Q12HR PO Last administered on 12/09/16t 20:34; Start 12/08/16 at 21:00; Stop 12/10/16 at 07:34; Status DC Lactated Ringer's 1,000 ml @ 30 mls/hr Q24H PRN IV SEE LABEL COMMENTS; Start at 01:30; Stop 12/12/16 at 01:29; Status DC Sodium Chloride 500 ml @ 30 mls/hr [id number] PRN IV SEE LABEL COMMENTS; Start at 01:30; Stop 12/12/16 at 01:29; Status DC Povidone Iodine (Betadine 5% Antisepsis Kit) 1 applic TRANSVERSE ABDOMINAL MUSCLE SURGEON PRN EACH NARE SEE LABEL COMMENTS; Start 12/09/16 at 01:30; Stop 12/12/16 at 01:29; Status DC Chlorhexidine Gluconate (Chlorhexidine 2% Cloth) 3 pack TRANSVERSE ABDOMINAL MUSCLE SURGEON PRN TOPICAL SEE LABEL COMMENTS; Start 12/09/16 at 01:30; Stop 12/12/16 at 01:29; Status DC Insulin Human Regular (NovoLIN R INJ) See Protocol Table ... TRANSVERSE ABDOMINAL MUSCLE SURGEON PRN SQ SEE PROTOCOL TABLE; Start 12/09/16 at 01:30; Stop 12/12/16 at 01:29; Status DC Bupivacaine HCl/ Epinephrine Bitart (Sensorcaine-Epinephrine 0.25% Inj) 50 ml STK-MED ONCE .ROUTE ; Start 12/09/16 at 14:07; Stop 12/09/16 at 14:08; Status DC Mineral Oil (Muri-Lube Oil) 10 ml STK-MED ONCE .ROUTE ; Start 12/09/16 at 14:07 ; Stop 12/09/16 at 14:08; Status DC Gentamicin Sulfate (Gentamicin Inj) 240 mg STK-MED ONCE .ROUTE Last administered on 12/09/16 15:31; Start 12/09/16 at 14:07; Stop 12/09/16 at 14:08 ; Status DC Vancomycin HCl (Vancomycin Inj) 1,000 mg STK-MED ONCE .ROUTE ; Start 12/09/16 at 15:06; Stop 12/09/16 at 15:07; Status DC Cefazolin Sodium/ Dextrose 50 ml @ As Directed STK-MED ONCE .ROUTE ; Start 12/09 at 15:06; Stop 12/09/16 at 15:07; Status DC Lactated Ringer's 1,000 ml @ 100 mls/hr Q10H IV ; Start 12/09/16 at 15:57; Stop 12/16/16 at 13:45; Status DC Cefazolin Sodium/ Dextrose 50 ml @ 100 mls/hr Q8H IV Last administered on 12/16 13:42; Start 12/09/16 at 20:00; Stop 12/16/16 at 19:59; Status DC Gentamicin Sulfate/Sodium Chloride 100 ml @ 200 mls/hr Q8H IV Last administered on 12/12/16 12:25; Start 12/09/16 at 21:00; Stop 12/12/16 at 20:59 ; Status DC Morphine Sulfate (*morphine INJ PERIprocedure ONLY) 8 mg STK-MED ONCE .ROUTE Last administered on 12/09/16 16:32; Start 12/09/16 at 16:32; Stop 12/09/16 at 16:33; Status DC Fentanyl Citrate (fentaNYL INJ) 250 mcg STK-MED ONCE .ROUTE ; Start 12/09/16 at 16:33; Stop 12/09/16 at 16:34; Status DC Miscellaneous Information ALL NURSING DEPARTME... UNSCH PRN .XX SEE LABEL COMMENTS; Start 12/09/16 at 16:20; Stop 12/10/16 at 16:19; Status DC Morphine Sulfate (*morphine INJ PERIprocedure ONLY) 8 mg STK-MED ONCE .ROUTE Last administered on 12/09/16 17:01; Start 12/09/16 at 17:01; Stop 12/09/16 at 17:02; Status DC Propranolol HCl (Inderal) 10 mg Q12HR PO Last administered on 12/13/16 09:42; Start 12/10/16 at 09:00; Stop 12/13/16 at 10:32; Status DC Menthol/Methyl Salicylate (Aleks Daniels Oint) 1 applic UNSCH PRN TOPICAL arthritic pain Last administered on 12/12/16 17:51; Start 12/11/16 at 15:30 Propranolol HCl (Inderal) 20 mg Q12HR PO ; Start 12/13/16 at 21:00; Stop at 21:00; Status DC Propranolol HCl (Inderal) 10 mg Q12HR PO Last administered on 01/15/17 21:36; Start 12/13/16 at 21:00 Bacitracin (Baciguent Oint) 1 applic DAILY PRN TOPICAL WOUND VAC DRESSING CHANGE; Start 12/15/16 at 12:30 Sucralfate (Carafate Liq) 1 gm BID PO Last administered on 12/30/16 08:30; Start 12/16/16 at 21:00; Stop 12/30/16 at 20:59; Status DC Lidocaine HCl (Lidoderm 5% Patch.12 Hr) 1 patch DAILY T-DERMAL Last administered on 12/18/16 11:33; Start 12/18/16 at 10:00; Stop 12/19/16 at 19:35 ; Status DC Miscellaneous Information 1 Q24H T-DERMAL ; Start 12/18/16 at 21:00; Stop at 19:35; Status DC Lactobacillus Acidophilus (Lactinex) 1 tab TID PO Last administered on 18:38; Start 12/18/16 at 13:00 Lidocaine HCl (Lidoderm 5% Patch.12 Hr) 1 patch HS T-DERMAL Last administered on 01/14/17 21:12; Start 12/19/16 at 21:00 Miscellaneous Information 1 Q24H T-DERMAL Last administered on 01/15/17 09:00 ; Start 12/20/16 at 09:00 Propofol (Diprivan 200 Mg/20 ml Inj) 200 mg STK-MED ONCE IV ; Start 11/07/16 at 12:00; Stop 12/23/16 at 10:36; Status DC Ephedrine Sulfate (ePHEDrine/NS 25 MG/5 ML SYR) 50 mg STK-MED ONCE IV ; Start at 12:00; Stop 12/23/16 at 10:36; Status DC Neostigmine Methylsulfate (Prostigmin Inj) 3 mg STK-MED ONCE IV ; Start at 12:00; Stop 12/23/16 at 10:36; Status DC Phenylephrine HCl (Neosynephrine/ NS 1000 Mcg/10ml Syr) 1,000 mcg STK-MED ONCE IV ; Start 11/07/16 at 12:00; Stop 12/23/16 at 10:37; Status DC Ondansetron HCl (Zofran Inj) 4 mg STK-MED ONCE IV PUSH ; Start 11/07/16 at 12:00 ; Stop 12/23/16 at 10:37; Status DC Lactated Ringer's 1,000 ml @ As Directed STK-MED ONCE IV ; Start 11/07/16 at 12 :00; Stop 12/23/16 at 10:37; Status DC Parenteral Electrolytes 1,000 ml @ As Directed STK-MED ONCE IV ; Start at 12:00; Stop 12/23/16 at 10:37; Status DC Propofol (Diprivan 200 Mg/20 ml Inj) 400 mg STK-MED ONCE IV ; Start 11/10/16 at 12:00; Stop 12/23/16 at 12:04; Status DC Phenylephrine HCl (Neosynephrine/ NS 1000 Mcg/10ml Syr) 2,000 mcg STK-MED ONCE IV ; Start 11/10/16 at 12:00; Stop 12/23/16 at 12:04; Status DC Ondansetron HCl (Zofran Inj) 4 mg STK-MED ONCE IV PUSH ; Start 11/10/16 at 12:00 ; Stop 12/23/16 at 12:04; Status DC Lactated Ringer's 1,000 ml @ As Directed STK-MED ONCE IV ; Start 11/10/16 at 12 :00; Stop 12/23/16 at 12:04; Status DC Propofol (Diprivan 200 Mg/20 ml Inj) 200 mg STK-MED ONCE IV ; Start 11/13/16 at 12:00; Stop 12/23/16 at 12:38; Status DC Ephedrine Sulfate (ePHEDrine/NS 25 MG/5 ML SYR) 25 mg STK-MED ONCE IV ; Start at 12:00; Stop 12/23/16 at 12:38; Status DC Phenylephrine HCl (Neosynephrine/ NS 1000 Mcg/10ml Syr) 1,000 mcg STK-MED ONCE IV ; Start 11/13/16 at 12:00; Stop 12/23/16 at 12:38; Status DC Ondansetron HCl (Zofran Inj) 4 mg STK-MED ONCE IV PUSH ; Start 11/13/16 at 12:00 ; Stop 12/23/16 at 12:38; Status DC Lactated Ringer's 1,000 ml @ As Directed STK-MED ONCE IV ; Start 11/13/16 at 12 :00; Stop 12/23/16 at 12:38; Status DC Neostigmine Methylsulfate (Prostigmin Inj) 3 mg STK-MED ONCE IV ; Start at 12:00; Stop 12/23/16 at 12:38; Status DC Propofol (Diprivan 200 Mg/20 ml Inj) 200 mg STK-MED ONCE IV ; Start 11/28/16 at 12:00; Stop 12/23/16 at 12:50; Status DC Ephedrine Sulfate (ePHEDrine/NS 25 MG/5 ML SYR) 25 mg STK-MED ONCE IV ; Start at 12:00; Stop 12/23/16 at 12:50; Status DC Ondansetron HCl (Zofran Inj) 4 mg STK-MED ONCE IV PUSH ; Start 11/28/16 at 12:00 ; Stop 12/23/16 at 12:50; Status DC Propofol (Diprivan 200 Mg/20 ml Inj) 200 mg STK-MED ONCE IV ; Start 12/09/16 at 12:00; Stop 12/23/16 at 14:38; Status DC Ephedrine Sulfate (ePHEDrine/NS 25 MG/5 ML SYR) 50 mg STK-MED ONCE IV ; Start at 12:00; Stop 12/23/16 at 14:38; Status DC Ondansetron HCl (Zofran Inj) 4 mg STK-MED ONCE IV PUSH ; Start 12/09/16 at 12:00 ; Stop 12/23/16 at 14:38; Status DC Acetaminophen/ Hydrocodone Bitart ([place] 10-325 Mg) 2 tab Q4H PRN PO pain 6-10 Last administered on 01/16/17t 05:11; Start 12/23/16 at 18:45 Vancomycin HCl 5000 mg/Sodium Chloride 3,000 ml @ 10 mls/hr Q24H PRN IRRIGATION DRESSING CHANGE Last administered on 01/08/17 01:36; Start 12/25/16 at 08:00 Diphenhydramine HCl (Benadryl) 12.5 mg Q4H PRN PO itching Last administered on 12/28/16 07:54; Start 12/25/16 at 16:45; Stop 12/28/16 at 13:48; Status DC Ferrous Sulfate (Ferrous Sulfate) 325 mg BID@12,17 PO Last administered on 01/15 18:38; Start 12/26/16 at 12:00 Ascorbic Acid (Vitamin C) 500 mg BID PO Last administered on 01/15/17 21:36; Start 12/26/16 at 09:00 Pharmacy Profile Note 0 ml @ 0 mls/hr UNSCH OTHER ; Start 12/26/16 at 14:45 Vancomycin HCl 1500 mg/Sodium Chloride 515 ml @ 257.5 mls/ hr Q12H IV Last administered on 12/26/16 20:17; Start 12/26/16 at 17:00; Stop 12/27/16 at 04:54; Status DC Miscellaneous Information SPECIFIC LAB TO BE LEANNA... ONCE ONCE .XX ; Start 12/28 at 04:45; Stop 12/28/16 at 04:46; Status Cancel Vancomycin HCl 1500 mg/Sodium Chloride 515 ml @ 257.5 mls/ hr Q12H IV Last administered on 12/29/16 20:50; Start 12/27/16 at 08:00; Stop 12/29/16 at 20:35 ; Status DC Miscellaneous Information SPECIFIC LAB TO BE LEANNA... ONCE ONCE .XX ; Start 12/28 at 07:45; Stop 12/28/16 at 07:46; Status DC Miscellaneous Information SPECIFIC LAB TO BE LEANNA... ONCE ONCE .XX Last administered on 12/29/16 20:45; Start 12/29/16 at 20:45; Stop 12/29/16 at 20:46 ; Status DC Diphenhydramine HCl (Benadryl) 50 mg Q4H PRN PO itching Last administered on 21:36; Start 12/28/16 at 16:45 Vancomycin HCl 1500 mg/Sodium Chloride 515 ml @ 257.5 mls/ hr Q12H IV Last administered on 01/03/17 08:51; Start 12/29/16 at 21:00; Stop 01/03/17 at 22:00 ; Status DC Miscellaneous Information SPECIFIC LAB TO BE DRAWN:VANCO TROUGH DATE TO BE DR... ONCE ONCE .XX Last administered on 12/31/16 08:45; Start 12/31/16 at 08 :45; Stop 12/31/16 at 08:46; Status DC Miscellaneous Information SPECIFIC LAB TO BE LEANNA... ONCE ONCE .XX ; Start 01/03 at 08:45; Stop 01/03/17 at 08:46; Status DC Fluticasone Propionate (Flonase Jerzy Spr) 1 spray BID NASAL Last administered on 01/15/17 21:36; Start 01/02/17 at 21:00 Miscellaneous Information SPECIFIC LAB TO BE DRAWN:VANCOMY... ONCE ONCE .XX Last administered on 01/03/17 20:45; Start 01/03/17 at 20:45; Stop 01/03/17 at 20:46; Status DC Vancomycin HCl 1500 mg/Sodium Chloride 515 ml @ 257.5 mls/ hr Q12H IV Last administered on 01/15/17 21:35; Start 01/03/17 at 22:00 Miscellaneous Information SPECIFIC LAB TO BE LEANNA... ONCE ONCE .XX ; Start 01/04 at 21:45; Stop 01/04/17 at 21:46; Status DC Miscellaneous Information SPECIFIC LAB TO BE LEANNA... ONCE ONCE .XX ; Start 01/05 at 21:45; Stop 01/05/17 at 21:46; Status DC Calcium Carbonate (Tums Chew) 500 mg Q12HR CHEW Last administered on 01/15/17 21:36; Start 01/05/17 at 11:30 Cefazolin Sodium/ Dextrose 50 ml @ As Directed STK-MED ONCE .ROUTE Last administered on 01/09/17 13:01; Start 01/09/17 at 11:31; Stop 01/09/17 at 11:32 ; Status DC Lidocaine HCl (Xylocaine 2% Jelly) 30 applic STK-MED ONCE .ROUTE Last administered on 01/09/17 13:08; Start 01/09/17 at 11:31; Stop 01/09/17 at 11:32 ; Status DC Mineral Oil (Muri-Lube Oil) 10 ml STK-MED ONCE .ROUTE Last administered on 01/09 13:08; Start 01/09/17 at 11:31; Stop 01/09/17 at 11:32; Status DC Gentamicin Sulfate (Gentamicin Inj) 240 mg STK-MED ONCE .ROUTE Last administered on 01/09/17 13:08; Start 01/09/17 at 11:31; Stop 01/09/17 at 11:32 ; Status DC Lactated Ringer's 1,000 ml @ 100 mls/hr Q10H IV Last administered on 14:15; Start 01/09/17 at 13:34 Morphine Sulfate (*morphine INJ PERIprocedure ONLY) 8 mg STK-MED ONCE .ROUTE Last administered on 01/09/17 14:10; Start 01/09/17 at 14:10; Stop 01/09/17 at 14:11; Status DC Miscellaneous Information ALL NURSING DEPARTME... UNSCH PRN .XX SEE LABEL COMMENTS; Start 01/09/17 at 13:52; Stop 01/10/17 at 13:51; Status DC Miscellaneous Information SPECIFIC LAB TO BE LEANNA... ONCE ONCE .XX Last administered on 01/11/17 09:45; Start 01/11/17 at 09:45; Stop 01/11/17 at 09:46 ; Status DC Miscellaneous Information SPECIFIC LAB TO BE LEANNA... ONCE ONCE .XX ; Start 01/17 at 09:45; Stop 01/17/17 at 09:46 A/P Assessment and Plan A/P Bilateral open tibia-fibula fractures Left tibial plateau fracture - Open fractures have been surgically repaired, right side has external fixation - s/p Removal of external fixation right lower extremity, irrigation debridement of left leg, split-thickness skin graft left leg, application wound VAC dressing on 01/09 - left tibial plateau fracture treated nonoperatively - continue with pain control. -management per ortho MRSA - wound culture ( leg) 12/23 positive for MRSA -on Vanco- plan for six weeks from the start date- per ID -repeat CBC/ CMP tomorrow. Acute blood loss anemia JAMAR - Related to trauma vs post op blood loss - Status post transfusion of 2 units of packed red blood cells in 11/12/16. - on iron supplementation daily. - hemoglobin stable - monitor CBC as indicated Coronary artery disease with h/o previous CABG - Appears stable. Patient is asymptomatic. - Continue propranolol and statin - ASA 81mg daily - Clonidine PRN Hypertension - controlled - MARGIE inhibitor held due to hypotension. Diabetes mellitus type 2 - blood sugars well controlled - accu checks discontinued Alcohol abuse Transaminitis, resolved - AST and ALT now within normal range. - Continue with daily thiamine and folic acid - Alcohol cessation recommended Tobacco abuse - Cessation recommended. Chronic essential tremor - Continue Propranolol Allergic rhinitis - Flonase Indigestion -Patient on Protonix and Maalox. DVT prophylaxis with Lovenox Blaine Corrales MD Jan 16, 2017 09:40
[2017-01-16] MEDS: VANCOMYCIN 1,500 MG/NS 500 ML IV SCH ×4 (10:00→22:26)
[2017-01-16] MEDS: FOLIC ACID 1 MG TAB PO SCH (10:04)
[2017-01-16] MEDS: CALCIUM/VITAMIN D 250 MG/125 U TAB PO SCH ×3 (10:05→17:29)
[2017-01-16] MEDS: PROPRANOLOL HCL 10 MG TAB PO SCH ×2 (10:05→19:32)
[2017-01-16] MEDS: PANTOPRAZOLE SOD 40 MG DELAYED RELEASE TAB PO SCH (10:05)
[2017-01-16] MEDS: LACTOBACILLUS ACIDOPHILUS TAB PO SCH ×3 (10:05→17:29)
[2017-01-16] MEDS: GABAPENTIN 300 MG CAP PO SCH ×3 (10:05→17:29)
[2017-01-16] MEDS: THIAMINE HCL 100 MG TAB PO SCH (10:05)
[2017-01-16] MEDS: ASCORBIC ACID 500 MG TAB PO SCH ×2 (10:05→19:33)
[2017-01-16] MEDS: ENOXAPARIN SODIUM 40 MG/0.4 ML SYRINGE SQ SCH (10:06)
[2017-01-16] MEDS: CALCIUM CARBONATE 500 MG CHEWABLE TAB CHEW SCH ×2 (10:06→19:33)
[2017-01-16] MEDS: SODIUM CHLORIDE 0.9% FLUSH 10 ML FLUSH IV FLUSH SCH ×2 (10:17→19:33)
[2017-01-16] MEDS: DOCUSATE SODIUM 50 MG/SENNA 8.6 MG TAB PO SCH ×2 (10:17→19:32)
[2017-01-16 12:07] VITALS: BP 118/78; PULSE 71; RESP 17; TEMP 96.7; O2SAT 96
[2017-01-16] MEDS: FERROUS SULFATE 325 MG (65 MG ELEMENTAL IRON) TAB PO SCH ×2 (12:37→17:29)
--- NOTE | 2017-01-16 15:04 | PD.ORT.PN ---
Subjective Subjective Remarks Pain controlled Doing well Objective Vitals Vital Signs Date Time Temp Pulse Resp B/P (MAP) Pulse Ox O2 Delivery O2 Flow Rate FiO2 01/16/17 12:07 96.7 71 17 118/78 (91) 96 01/16/17 08:00 94 Room Air 01/16/17 07:56 97.3 72 17 109/65 (80) 94 01/15/17 20:00 97.7 76 18 125/75 (92) 98 01/15/17 16:00 97.6 69 18 114/76 (89) 97 I/O 01/15/17 01/15/17 01/15/17 01/16/17 01/16/17 01/16/17 07:00 15:00 23:00 07:00 15:00 23:00 Intake Total 995 ml 960 ml 1220 ml 1220 ml Output Total 1900 ml 0 ml Balance -905 ml 960 ml 1220 ml 1220 ml Intake Oral 480 ml 960 ml 720 ml 720 ml IV Total 515 ml 500 ml 500 ml Output Urine Total 1900 ml Drainage Total 0 ml # Voids 3 3 2 # Bowel Movements 1 0 Result Diagram: 01/15/17 0724 Imaging Last 24 hours Impressions Pelvis X-Ray 11/07/16 1355 Signed Impressions: Service Date/Time: Monday, November 07, 2016 13:34 - CONCLUSION: No acute disease. Behzad Finch Jr., MD Chest X-Ray 11/07/16 1355 Signed Impressions: Service Date/Time: Monday, November 07, 2016 13:34 - CONCLUSION: No acute disease. Jac Gonzales MD Objective Remarks RLE: +fracture boot. dressings clean and dry LLE: +short leg splint. intact. +vac. good seal. harvest site dressings with mild bloody drainage Assessment & Plan Assessment and Plan 1) Right Open Tibia Fracture s/p exfix revision with ORIF 2) Left Open Tibia Fracture s/p Soleus muscle flap with IMN and removal of exfix 3) left tibia plateau fracture treated nonoperatively 4) s/p STSG left leg LLE: -50%WB for transfers only -maintain splint at all times -maintain vac at all times -vac settinmmHg, low, continuous -will plan to remove vac at bedside on Thursday or Thursday and hopefully discontinue wound VAC -daily dressing changes of harvest site. change ABD only. leave xeroform in place. RLE: -NWB -fx boot at all times except for PT -PT to work on ankle ROM -daily dressing changes of pin sites with xeroform/4x4/tamia Ronald Hatch Jr. Jan 16, 2017 15:04
[2017-01-16 16:00] VITALS: BP 110/65; PULSE 70; RESP 17; TEMP 97.3; O2SAT 97
[2017-01-16] MEDS: MAGNESIUM HYDROXIDE SUSP 30 ML CUP PO SCH (19:32)
[2017-01-16] MEDS: LIDOCAINE HCL 5% PATCH T-DERMAL SCH (19:32)
[2017-01-16] MEDS: PRAVASTATIN SOD 80 MG TAB PO SCH (19:33)
[2017-01-16] MEDS: traZODone HCL 100 MG TAB PO SCH (19:33)
[2017-01-16 22:00] VITALS: BP 116/68; PULSE 76; RESP 16; TEMP 97.1; O2SAT 99
[2017-01-16] MEDS: diphenhydrAMINE HCL 50 MG CAP PO PRN (22:26)
[2017-01-17] MEDS: ACETAMINOPHEN/HYDROcodone 325 MG/10 MG TAB PO PRN ×6 (01:32→23:03)
[2017-01-17] MEDS: MORPHINE SULFATE 30 MG CONTROLLED RELEASE TAB PO SCH ×3 (05:43→21:51)
[2017-01-17 08:00] VITALS: BP 127/72; PULSE 71; RESP 18; TEMP 99.5; O2SAT 97
[2017-01-17] MEDS: CALCIUM CARBONATE 500 MG CHEWABLE TAB CHEW SCH ×2 (08:01→21:50)
[2017-01-17] MEDS: CALCIUM/VITAMIN D 250 MG/125 U TAB PO SCH ×3 (08:02→15:18)
[2017-01-17] MEDS: ENOXAPARIN SODIUM 40 MG/0.4 ML SYRINGE SQ SCH (08:02)
[2017-01-17] MEDS: LACTOBACILLUS ACIDOPHILUS TAB PO SCH ×3 (08:02→15:18)
[2017-01-17] MEDS: THIAMINE HCL 100 MG TAB PO SCH (08:02)
[2017-01-17] MEDS: GABAPENTIN 300 MG CAP PO SCH ×3 (08:02→15:18)
[2017-01-17] MEDS: FOLIC ACID 1 MG TAB PO SCH (08:02)
[2017-01-17] MEDS: PROPRANOLOL HCL 10 MG TAB PO SCH ×2 (08:02→21:50)
[2017-01-17] MEDS: DOCUSATE SODIUM 50 MG/SENNA 8.6 MG TAB PO SCH ×2 (08:02→21:49)
[2017-01-17] MEDS: PANTOPRAZOLE SOD 40 MG DELAYED RELEASE TAB PO SCH (08:02)
[2017-01-17] MEDS: ASCORBIC ACID 500 MG TAB PO SCH ×2 (08:02→21:50)
[2017-01-17] MEDS: ASPIRIN 81 MG CHEW TAB CHEW SCH (08:03)
[2017-01-17] MEDS: FLUTICASONE PROPIONATE 50 MCG/ACT 16 GM NASAL SPRAY NASAL SCH ×2 (08:04→21:51)
[2017-01-17] MEDS: REMOVE OLD LIDOCAINE PATCH T-DERMAL SCH (08:05)
[2017-01-17] MEDS: SODIUM CHLORIDE 0.9% FLUSH 10 ML FLUSH IV FLUSH SCH ×2 (08:06→21:51)
[2017-01-17] MEDS: NEOMYCIN/POLYMYXIN/BACITRACIN OINT 15 GM TUBE TOPICAL SCH (08:07)
[2017-01-17 08:14] LABS: AUTOMATED NEUTROPHIL # 6.4 TH/MM3 (1.8-7.7); BASOPHIL % 0.5 % (0.0-2.0); EOSINOPHIL # 0.2 TH/MM3 (0-0.4); EOSINOPHIL % 2.1 % (0.0-4.0); HEMATOCRIT 35.7 % (39.0-51.0); HEMO FLAGS DIFF FINAL; LYMPH % 17.8 % (9.0-44.0); LYMPHOCYTE # 1.7 TH/MM3 (1.0-4.8); MEAN CELL VOLUME 90.6 FL (80.0-100.0); MEAN CORPUSCULAR HEMOGLOBIN 30.4 PG (27.0-34.0); MEAN CORPUSCULAR HGB CONC 33.6 % (32.0-36.0); NEUT % 66.6 % (16.0-70.0); PLATELET COUNT 235 TH/MM3 (150-450); RED BLOOD COUNT 3.95 MIL/MM3 (4.50-5.90); RED CELL DISTRIBUTION WIDTH 13.2 % (11.6-17.2); WHITE BLOOD COUNT 9.6 TH/MM3 (4.0-11.0)
[2017-01-17 08:41] LABS: ALT (GPT) 11 U/L (12-78); ANION GAP 7 MEQ/L (5-15); AST (GOT) 12 U/L (15-37); BICARBONATE 30.3 MEQ/L (21.0-32.0); BLOOD UREA NITROGEN 7 MG/DL (7-18); CHLORIDE 101 MEQ/L (98-107); GLOMERULAR FILTRATION RATE 125 ML/MIN (>89); POTASSIUM 3.9 MEQ/L (3.5-5.1); SODIUM (NA) 138 MEQ/L (136-145)
[2017-01-17 08:44] LABS: ALKALINE PHOSPHATASE 67 U/L (45-117); TOTAL BILIRUBIN ADULT 0.3 MG/DL (0.2-1.0)
[2017-01-17] MEDS: LACTATED RINGER'S 1000 ML INJ 1,000 ML IV SCH ×2 (09:41→21:34)
[2017-01-17] MEDS ORDERED: PHARMACY ORDERED LAB ONE (09:45)
--- NOTE | 2017-01-17 10:15 | HHI.PR ---
Subjective Remarks resting comfortably with no distress. pain is controlled. no fever. Objective Vitals Vital Signs Date Time Temp Pulse Resp B/P (MAP) Pulse Ox O2 Delivery O2 Flow Rate FiO2 01/17/17 08:08 Room Air 01/17/17 08:00 99.5 71 18 127/72 (90) 97 01/16/17 22:00 97.1 76 16 116/68 (84) 99 01/16/17 16:00 97.3 70 17 110/65 (80) 97 01/16/17 12:07 96.7 71 17 118/78 (91) 96 I/O 01/16/17 01/16/17 01/16/17 01/17/17 01/17/17 01/17/17 07:00 15:00 23:00 07:00 15:00 23:00 Intake Total 1220 ml 1220 ml 1220 ml 1150 ml Output Total 0 ml 0 ml Balance 1220 ml 1220 ml 1220 ml 1150 ml Intake Oral 720 ml 720 ml 720 ml 650 ml IV Total 500 ml 500 ml 500 ml 500 ml Drainage Total 0 ml 0 ml # Voids 2 3 3 2 # Bowel Movements 1 Result Diagram: 01/17/17 0742 01/17/17 0742 Imaging Last Impressions Ankle X-Ray 01/09/17 0000 Signed Impressions: Service Date/Time: Monday, January 09, 2017 12:59 - CONCLUSION: Fluoroscopic images during placement of screws along the distal tibia and single long screw along the distal fibula. Fractures are again seen.. Jac Gonzales MD Tibia/Fibula X-Ray 01/01/17 0000 Signed Impressions: Service Date/Time: December 09:33 - CONCLUSION: There are no complications. Paul Fuentes MD Knee X-Ray 01/01/17 0000 Signed Impressions: Service Date/Time: December 09:37 - CONCLUSION: Lateral tibial plateau fracture without involvement of the articulating surface. Paul Fuentes MD Foot X-Ray 12/27/16 0000 Signed Impressions: Service Date/Time: Tuesday, December 27, 2016 16:50 - CONCLUSION: Distal tibia and fibula fractures with internal fixation hardware. Samir Massey MD Gall Bladder Ultrasound 12/05/16 0000 Signed Impressions: Service Date/Time: Monday, December 05, 2016 08:38 - CONCLUSION: Unremarkable exam. Gallbladder is within normal limits with no evidence of cholelithiasis. Ronald Rao MD Abdomen X-Ray 12/04/16 0000 Signed Impressions: Service Date/Time: November 10:42 - CONCLUSION: Unremarkable bowel gas pattern. Ronald Rao MD Chest X-Ray 11/20/16 0000 Signed Impressions: Service Date/Time: November 17:08 - CONCLUSION: 1. No acute abnormality or significant interval change. Sukhi Stevens MD Pelvis X-Ray 11/07/16 1355 Signed Impressions: Service Date/Time: Monday, November 07, 2016 13:34 - CONCLUSION: No acute disease. Behzad Finch Jr., MD Objective Remarks GENERAL: This is a well-nourished, well-developed patient, in no apparent distress. CARDIOVASCULAR: Regular rate and regular rhythm without murmurs, gallops, or rubs. RESPIRATORY: Clear to auscultation. Breath sounds equal bilaterally. No wheezes , rales, or rhonchi. GASTROINTESTINAL: Abdomen soft, non-tender, nondistended. Normal, active bowel sounds MUSCULOSKELETAL: both legs covered with clean dressing. NEURO: Alert & Oriented x4 to person, place, time, situation. Moves all ext x4 Procedures 1.s/p I&D with ex fix application bilateral tibias s/p wound vac application left tibia 2.With the assistance of RN, under sterile technique the avulsed skin of the right middle finger was clipped. No bleeding noted. Patient gave consent 3.Open reduction internal fixation of right distal tibia and fibula fractures Nonoperative treatment left tibial plateau fracture Irrigation and debridement of left tibia shaft fracture, removal external fixation, soleus muscle rotational flap, intramedullary nail fixation left tibia , application of wound VAC dressing 4.7 Irrigation and debridement of left tibia, application wound VAC dressing 5. 8 Irrigation and debridement of left open tibia fracture with application of wound VAC dressing 6. 8 wound vac change at the bedside 7. 8 wound vac change at the bedside 8. 8 wound vac change at the bedside 9. 8 I&D left tibia, application of wound VAC dressing and application of AlloMax allograft dermal matrix 10. 01/09 Removal of external fixation right lower extremity, irrigation debridement of left leg, split-thickness skin graft left leg, application wound VAC dressing Medications and IVs Current Medications Cefazolin Sodium/ Dextrose 50 ml @ As Directed STK-MED ONCE .ROUTE Last administered on 11/13/16 08:09; Start 11/07/16 at 13:58; Stop 11/07/16 at 13:59 ; Status DC Diphtheria/ Tetanus/Acell Pertussis (Boostrix Inj) 0.5 ml STK-MED ONCE IM ; Start 11/07/16 at 13:58; Stop 11/07/16 at 13:59; Status DC Morphine Sulfate (Morphine Inj) 8 mg STK-MED ONCE .ROUTE ; Start 11/07/16 at 14: 01; Stop 11/07/16 at 14:02; Status DC Hydromorphone HCl (Dilaudid Pf Inj) 1 mg STK-MED ONCE .ROUTE Last administered on 11/07/16 19:15; Start 11/07/16 at 14:05; Stop 11/07/16 at 14:06; Status DC Lactated Ringer's 1,000 ml @ 100 mls/hr Q10H IV ; Start 11/07/16 at 14:22; Stop 11/07/16 at 19:02; Status DC Sodium Chloride (NS Flush) 2 ml UNSCH PRN IV FLUSH FLUSH AFTER USING IV ACCESS Last administered on 12/11/16 11:31; Start 11/07/16 at 14:30 Sodium Chloride (NS Flush) 2 ml BID IV FLUSH Last administered on 01/17/17 08: 06; Start 11/07/16 at 21:00 Ondansetron HCl (Zofran Inj) 4 mg Q6H PRN IV NAUSEA OR VOMITING Last administered on 12/04/16 06:13; Start 11/07/16 at 14:30 Pantoprazole Sodium (Protonix Inj) 40 mg Q24H IV Last administered on 20:00; Start 11/07/16 at 17:00; Stop 11/08/16 at 08:09; Status DC Docusate Sodium (Colace) 100 mg BID PO ; Start 11/07/16 at 21:00; Stop 11/08/16 at 13:04; Status DC Cefazolin Sodium 1000 mg/Sodium Chloride 100 ml @ 200 mls/hr Q8H IV ; Start at 22:00; Stop 11/07/16 at 22:00; Status DC Miscellaneous Information (Post-op Orders (for Pharmacy)) STAT ONCE XX ; Start 11/07/16 at 14:30; Stop 11/07/16 at 15:39; Status DC Oxycodone/ Acetaminophen (Percocet 10-325 Mg) 1 tab Q4H PRN PO 3-5; Start 11/07 at 14:30; Stop 11/07/16 at 19:03; Status DC Hydromorphone HCl (Dilaudid Pf Inj) 1 mg Q2H PRN IV Pain 6-10; Start 11/07/16 at 14:30; Stop 11/07/16 at 19:11; Status DC Naloxone HCl (Narcan Inj) 0.4 mg UNSCH PRN IV SEE LABEL COMMENTS; Start at 14:30 Gentamicin Sulfate (Gentamicin Inj) 80 mg Q8H IM ; Start 11/07/16 at 14:30; Stop 11/07/16 at 15:37; Status DC Hydromorphone HCl (Dilaudid Pf Inj) 0.5 mg MIME ARTIST DOSING PRN IV PUSH pain; Start 11/07/16 at 14:45; Stop 11/07/16 at 19:11; Status DC Gentamicin Sulfate/Sodium Chloride 100 ml @ 200 mls/hr Q8H IV ; Start 11/07/16 at 17:00; Status Cancel Miscellaneous Information (Post-op Orders (for Pharmacy)) UNSCH X1 XX ; Start 11/07/16 at 15:45; Stop 11/08/16 at 06:00; Status DC Cefazolin Sodium (Ancef Inj) 1,000 mg STK-MED ONCE .ROUTE Last administered on 11/07/16 16:26; Start 11/07/16 at 15:48; Stop 11/07/16 at 15:49; Status DC Gentamicin Sulfate (Gentamicin Inj) 80 mg STK-MED ONCE .ROUTE Last administered on 11/07/16 16:26; Start 11/07/16 at 15:49; Stop 11/07/16 at 15:50 ; Status DC Acetaminophen (Ofirmev Inj) 1,000 mg STK-MED ONCE IV ; Start 11/07/16 at 15:56; Stop 11/07/16 at 15:57; Status DC Midazolam HCl (Versed Inj) 2 mg STK-MED ONCE .ROUTE ; Start 11/07/16 at 15:56; Stop 11/07/16 at 15:57; Status DC Famotidine (Pepcid Inj) 20 mg STK-MED ONCE .ROUTE ; Start 11/07/16 at 15:56; Stop 11/07/16 at 15:57; Status DC Gentamicin Sulfate (Gentamicin Inj) 240 mg STK-MED ONCE IRRIGATION Last administered on 11/07/16 16:26; Start 11/07/16 at 16:26; Stop 11/07/16 at 16:42 ; Status DC Fentanyl Citrate (fentaNYL INJ) 250 mcg STK-MED ONCE .ROUTE ; Start 11/07/16 at 17:03; Stop 11/07/16 at 17:04; Status DC Gentamicin Sulfate (Gentamicin Inj) 240 mg STK-MED ONCE .ROUTE Last administered on 11/07/16 16:26; Start 11/07/16 at 17:10; Stop 11/07/16 at 17:11 ; Status DC Lactated Ringer's 1,000 ml @ 100 mls/hr Q10H IV Last administered on 07:51; Start 11/07/16 at 18:00; Stop 11/08/16 at 12:46; Status DC Enoxaparin Sodium (Lovenox Inj) 30 mg Q12H SQ ; Start 11/08/16 at 17:00; Stop at 11:48; Status DC Cefazolin Sodium/ Dextrose 50 ml @ 100 mls/hr Q8H IV Last administered on 11/10 08:16; Start 11/08/16 at 00:00; Stop 11/10/16 at 12:47; Status DC Gentamicin Sulfate/Sodium Chloride 100 ml @ 200 mls/hr Q8H IV Last administered on 11/10/16 16:30; Start 11/08/16 at 00:00; Stop 11/10/16 at 16:29 ; Status DC Acetaminophen/ Hydrocodone Bitart (Irving 10-325 Mg) 1 tab Q3H PRN PO PAIN 3<10 Last administered on 11/08/16 10:36; Start 11/07/16 at 18:00; Stop 11/08/16 at 13:04; Status DC Morphine Sulfate (Morphine Inj) 4 mg Q3H PRN IV PUSH Break thru Pain Last administered on 11/08/16 07:50; Start 11/07/16 at 18:00; Stop 11/08/16 at 12:21 ; Status DC Ketorolac Tromethamine (Toradol Inj) 30 mg Q12H IVP Last administered on 05:32; Start 11/07/16 at 18:00; Stop 11/10/16 at 06:01; Status DC Bacitracin (Baciguent Oint) 15 applic STK-MED ONCE .ROUTE Last administered on 11/07/16 18:09; Start 11/07/16 at 18:09; Stop 11/07/16 at 18:10; Status DC Miscellaneous Information ALL NURSING DEPARTME... UNSCH PRN .XX SEE LABEL COMMENTS; Start 11/07/16 at 18:33; Stop 11/08/16 at 18:32; Status DC Acetaminophen (Tylenol) 650 mg Q4H PRN PO Temp > 100.4, pain 1-2; Start at 08:15 Magnesium Hydroxide (Milk Of Magnesia Liq) 30 ml DAILY PRN PO for Severe Constipation Last administered on 11/09/16 20:15; Start 11/08/16 at 08:15; Stop 11/10/16 at 09:00; Status DC Calcium Carbonate (Tums Chew) 1,000 mg TID PRN CHEW DYSPEPSIA Last administered on 01/09/17 22:36; Start 11/08/16 at 08:15 Dextrose (D50w (Vial) Inj) 50 ml UNSCH PRN IV HYPOGLYCEMIA-SEE COMMENTS; Start 11/08/16 at 08:15; Stop 12/03/16 at 09:16; Status DC Glucagon (Glucagon Inj) 1 mg UNSCH PRN OTHER HYPOGLYCEMIA-SEE COMMENTS; Start 11/08/16 at 08:15; Stop 12/03/16 at 09:16; Status DC Insulin Aspart (NovoLOG SUPPLEMENTAL SCALE) 1 ACHS SLIDING SCALE SQ Last administered on 12/01/16 13:21; Start 11/08/16 at 11:00; Stop 12/03/16 at 09:16 ; Status DC Enalaprilat (Vasotec Inj) 1.25 mg Q6H PRN IV SBP> OR = 180, DBP> OR = 100; Start 11/08/16 at 08:15 Clonidine (Catapres) 0.1 mg Q6H PRN PO SBP> OR = 180, DBP> OR = 100; Start at 08:15 Gabapentin (Neurontin) 400 mg TID PO Last administered on 11/16/16 09:10; Start 11/08/16 at 13:00; Stop 11/16/16 at 11:46; Status DC Morphine Sulfate (Morphine Inj) 6 mg Q3H PRN IV PUSH PAIN 6-10 Last administered on 11/17/16 15:09; Start 11/08/16 at 15:00; Stop 11/18/16 at 16:37 ; Status DC Aspirin (Aspirin Chew) 81 mg DAILY CHEW Last administered on 01/17/17 08:03; Start 11/08/16 at 12:45 Ferrous Sulfate (Ferrous Sulfate) 325 mg DAILY PO Last administered on 08:11; Start 11/08/16 at 12:45; Stop 12/05/16 at 09:25; Status DC Lisinopril (Prinivil) 25 mg DAILY PO Last administered on 11/18/16 09:59; Start 11/08/16 at 12:45; Status Future Hold Nitroglycerin (Nitrostat Sl) 0.4 mg Q6HR PRN SL CHEST PAIN; Start 11/08/16 at 12:45 Pantoprazole Sodium (Protonix) 40 mg DAILY PO Last administered on 01/17/17 08 :02; Start 11/08/16 at 12:45 Pravastatin Sodium (Pravachol) 80 mg HS PO Last administered on 01/16/17 19:33 ; Start 11/08/16 at 21:00 Propranolol HCl (Inderal) 80 mg Q12HR PO Last administered on 11/18/16 10:01; Start 11/08/16 at 21:00; Stop 11/22/16 at 12:49; Status DC Miscellaneous (Pill Splitter) 1 ea UNSCH PRN OTHER SEE LABEL COMMENTS; Start at 12:45 Senna/Docusate Sodium (Elke-Colace) 1 tab BID PO Last administered on 19:32; Start 11/08/16 at 12:45; Status Future hold Lactulose (Lactulose Liq) 30 ml DAILY PRN PO No BM in 2 days; Start 11/08/16 at 12:45; Stop 11/10/16 at 07:47; Status DC Acetaminophen/ Hydrocodone Bitart (Irving 10-325 Mg) 1.5 tab Q3H PRN PO PAIN 3- 10 Last administered on 11/09/16 23:46; Start 11/08/16 at 15:00; Stop 11/10/16 at 12:45; Status DC Folic Acid (Folate) 1 mg DAILY PO Last administered on 11/12/16 09:14; Start 11/09/16 at 09:00; Stop 11/14/16 at 08:59; Status DC Thiamine HCl (Vitamin B1) 100 mg DAILY PO Last administered on 01/17/17 08:02 ; Start 11/09/16 at 09:00 Multivitamins/ Minerals Therapeutic (Theragran M Tab) 1 tab DAILY PO Last administered on 11/12/16 09:13; Start 11/09/16 at 09:00; Stop 11/14/16 at 08:59 ; Status DC Flumazenil (Romazicon Inj) 0.2 mg Q1M PRN IV PUSH SEE LABEL COMMENTS; Start at 13:00 Lorazepam (Ativan) 1 mg Q4H PRN PO CIWA 8 - 10; Start 11/08/16 at 13:00; Stop 11/26/16 at 16:05; Status DC Lorazepam (Ativan Inj) 1 mg Q4H PRN IV PUSH CIWA 8 - 10; Start 11/08/16 at 13: 00; Stop 11/26/16 at 16:05; Status DC Lorazepam (Ativan) 2 mg Q2H PRN PO CIWA 11-14; Start 11/08/16 at 13:00; Stop at 16:05; Status DC Lorazepam (Ativan Inj) 2 mg Q2H PRN IV PUSH CIWA 11-14; Start 11/08/16 at 13:00 ; Stop 11/26/16 at 16:05; Status DC Lorazepam (Ativan Inj) 2 mg Q1H PRN IV PUSH CIWA 15-20; Start 11/08/16 at 13:00 ; Stop 11/26/16 at 16:05; Status DC Lorazepam (Ativan Inj) 2 mg Q15M PRN IV PUSH CIWA > 20; Start 11/08/16 at 13:00 ; Stop 11/26/16 at 16:05; Status DC Haloperidol Lactate (Haldol Inj) 2 mg Q15M PRN IM SEE LABEL COMMENTS; Start at 13:00 Lactated Ringer's 1,000 ml @ 30 mls/hr Q24H PRN IV SEE LABEL COMMENTS; Start at 00:45; Stop 11/09/16 at 12:05; Status DC Sodium Chloride 500 ml @ 30 mls/hr [id number] PRN IV SEE LABEL COMMENTS; Start at 00:45; Stop 11/09/16 at 12:05; Status DC Metoprolol Tartrate (Lopressor) 25 mg 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 PRN PO SEE LABEL COMMENTS; Start 11/09/16 at 00:45; Stop 11/12/16 at 00:44; Status DC Povidone Iodine (Betadine 5% Antisepsis Kit) 1 applic 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 PRN EACH NARE SEE LABEL COMMENTS; Start 11/09/16 at 00:45; Stop 11/12/16 at 00:44; Status DC Chlorhexidine Gluconate (Chlorhexidine 2% Cloth) 3 pack 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 PRN TOPICAL SEE LABEL COMMENTS; Start 11/09/16 at 00:45; Stop 11/09/16 at 12:05; Status DC Insulin Human Regular (NovoLIN R INJ) See Protocol Table ... 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 PRN SQ SEE PROTOCOL TABLE; Start 11/09/16 at 00:45; Stop 11/12/16 at 00:44; Status DC Potassium Chloride (KCl) 20 meq ONCE ONCE PO Last administered on 11/09/16 11 :40; Start 11/09/16 at 11:00; Stop 11/09/16 at 11:01; Status DC Neomycin/ Polymyxin/ Bacitracin (Neosporin Oint) 1 applic DAILY TOPICAL Last administered on 01/10/17 09:00; Start 11/10/16 at 09:00 Lactulose (Lactulose Liq) 30 ml DAILY PO Last administered on 8/15/17at 09:18; Start 11/10/16 at 09:00; Stop 12/08/16 at 09:52; Status DC Magnesium Hydroxide (Milk Of Magnesia Liq) 30 ml HS PO Last administered on 19:32; Start 11/10/16 at 21:00; Status Future hold Famotidine (Pepcid Inj) 20 mg STK-MED ONCE .ROUTE Last administered on 08:51; Start 11/10/16 at 08:51; Stop 11/10/16 at 08:52; Status DC Albuterol Sulfate (Albuterol Neb) 2.5 mg STK-MED ONCE .ROUTE Last administered on 11/10/16 08:55; Start 11/10/16 at 08:53; Stop 11/10/16 at 08:54; Status DC Gentamicin Sulfate (Gentamicin Inj) 240 mg STK-MED ONCE .ROUTE Last administered on 11/10/16 09:48; Start 11/10/16 at 09:02; Stop 11/10/16 at 09:03 ; Status DC Acetaminophen (Ofirmev Inj) 1,000 mg STK-MED ONCE IV ; Start 11/10/16 at 09:13; Stop 11/10/16 at 09:14; Status DC Lactated Ringer's 1,000 ml @ 100 mls/hr Q10H IV Last administered on 00:53; Start 11/10/16 at 13:00; Stop 11/11/16 at 11:56; Status DC Enoxaparin Sodium (Lovenox Inj) 30 mg Q12H SQ Last administered on 12/04/16 00 :03; Start 11/11/16 at 00:00; Stop 12/04/16 at 09:43; Status DC Cefazolin Sodium/ Dextrose 50 ml @ 100 mls/hr Q8H IV Last administered on 11/13 00:05; Start 11/10/16 at 16:00; Stop 11/13/16 at 08:29; Status DC Gentamicin Sulfate/Sodium Chloride 100 ml @ 200 mls/hr Q8H IV Last administered on 11/13/16 10:00; Start 11/10/16 at 18:00; Stop 11/13/16 at 10:29 ; Status DC Acetaminophen/ Hydrocodone Bitart (Irving 10-325 Mg) 1 tab Q3H PRN PO PAIN 3<10 Last administered on 11/18/16 04:34; Start 11/10/16 at 11:45; Stop 11/18/16 at 16 :37; Status DC Calcium/Vitamin D (Oscal-D 250-125) 250 mg TID PO Last administered on 08:02; Start 11/10/16 at 13:00 Meperidine HCl (*DEMEROL INJ PERIprocedural ONLY) 25 mg STK-MED ONCE .ROUTE Last administered on 11/10/16 12:36; Start 11/10/16 at 12:36; Stop 11/10/16 at 12:37; Status DC Miscellaneous Information ALL NURSING DEPARTME... UNSCH PRN .XX SEE LABEL COMMENTS; Start 11/10/16 at 12:29; Stop 11/11/16 at 12:28; Status DC Midazolam HCl (Versed Inj) 2 mg STK-MED ONCE .ROUTE ; Start 11/10/16 at 12:48; Stop 11/10/16 at 12:49; Status DC Fentanyl Citrate (fentaNYL INJ) 250 mcg STK-MED ONCE .ROUTE ; Start 11/10/16 at 12:48; Stop 11/10/16 at 12:49; Status DC Morphine Sulfate (*morphine INJ PERIprocedure ONLY) 8 mg STK-MED ONCE .ROUTE Last administered on 11/10/16 14:36; Start 11/10/16 at 14:36; Stop 11/10/16 at 14:37; Status DC Bisacodyl (Dulcolax Ec) 10 mg ONCE ONCE PO Last administered on 11/11/16 10: 17; Start 11/11/16 at 07:00; Stop 11/11/16 at 07:04; Status DC Bisacodyl (Dulcolax Supp) 10 mg ONCE ONCE RECTAL Last administered on 10:17; Start 11/11/16 at 07:00; Stop 11/11/16 at 07:04; Status DC Sodium Chloride 250 ml @ 15 mls/hr ONCE ONCE IV Last administered on 11:19; Start 11/11/16 at 11:15; Stop 11/12/16 at 03:54; Status DC Furosemide (Lasix Inj) 20 mg ONCE ONCE IV ; Start 11/11/16 at 11:15; Stop 11/11 at 11:16; Status Cancel Furosemide (Lasix Inj) 20 mg ONCE ONCE IV Last administered on 11/12/16 11:18 ; Start 11/12/16 at 11:00; Stop 11/12/16 at 11:01; Status DC Albuterol/ Ipratropium (Duoneb Neb) 1 ampule Q4HR NEB PRN NEB wheezing; Start 11/12/16 at 13:15 Lactated Ringer's 1,000 ml @ 30 mls/hr Q24H PRN IV SEE LABEL COMMENTS; Start at 05:00; Stop 11/16/16 at 04:59; Status Cancel Sodium Chloride 500 ml @ 30 mls/hr [id number] PRN IV SEE LABEL COMMENTS; Start at 05:00; Stop 11/16/16 at 04:59; Status DC Metoprolol Tartrate (Lopressor) 25 mg 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 PRN PO SEE LABEL COMMENTS; Start 11/13/16 at 05:00; Stop 11/16/16 at 04:59; Status DC Povidone Iodine (Betadine 5% Antisepsis Kit) 1 applic 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 PRN EACH NARE SEE LABEL COMMENTS; Start 11/13/16 at 05:00; Stop 11/16/16 at 04:59; Status DC Chlorhexidine Gluconate (Chlorhexidine 2% Cloth) 3 pack 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 PRN TOPICAL SEE LABEL COMMENTS; Start 11/13/16 at 05:00; Stop 11/16/16 at 04:59; Status DC Lidocaine HCl (Xylocaine 2% Jelly) 30 applic STK-MED ONCE .ROUTE ; Start at 07:15; Stop 11/13/16 at 07:16; Status DC Mineral Oil (Muri-Lube Oil) 10 ml STK-MED ONCE .ROUTE ; Start 11/13/16 at 07:15 ; Stop 11/13/16 at 07:16; Status DC Gentamicin Sulfate (Gentamicin Inj) 240 mg STK-MED ONCE .ROUTE Last administered on 11/13/16 08:20; Start 11/13/16 at 07:15; Stop 11/13/16 at 07:16 ; Status DC Albuterol Sulfate (Albuterol Neb) 2.5 mg STK-MED ONCE .ROUTE ; Start 11/13/16 at 07:34; Stop 11/13/16 at 07:35; Status DC Dexamethasone Sodium Phosphate (Decadron Inj) 4 mg STK-MED ONCE .ROUTE ; Start 11/13/16 at 07:36; Stop 11/13/16 at 07:37; Status DC Famotidine (Pepcid Inj) 20 mg STK-MED ONCE .ROUTE ; Start 11/13/16 at 07:36; Stop 11/13/16 at 07:37; Status DC Albuterol/ Ipratropium (Duoneb Neb) 1 ampule STK-MED ONCE .ROUTE Last administered on 11/13/16 07:50; Start 11/13/16 at 07:47; Stop 11/13/16 at 07:48 ; Status DC Lactated Ringer's 1,000 ml @ 100 mls/hr Q10H IV Last administered on 12:14; Start 11/13/16 at 08:42; Stop 11/18/16 at 16:33; Status DC Cefazolin Sodium/ Dextrose 50 ml @ 100 mls/hr Q8H IV Last administered on 04:43; Start 11/13/16 at 12:00; Stop 11/20/16 at 11:59; Status DC Gentamicin Sulfate/Sodium Chloride 100 ml @ 200 mls/hr Q8H IV Last administered on 11/16/16 09:14; Start 11/13/16 at 18:00; Stop 11/16/16 at 17:59 ; Status DC Midazolam HCl (Versed Inj) 2 mg STK-MED ONCE .ROUTE ; Start 11/13/16 at 09:25; Stop 11/13/16 at 09:26; Status DC Fentanyl Citrate (fentaNYL INJ) 250 mcg STK-MED ONCE .ROUTE ; Start 11/13/16 at 09:25; Stop 11/13/16 at 09:26; Status DC Zolpidem Tartrate (Ambien) 5 mg HS PRN PO Insomnia Last administered on 22:24; Start 11/14/16 at 11:00 Trazodone HCl (Desyrel) 100 mg HS PO Last administered on 01/16/17 19:33; Start 11/14/16 at 21:00 Morphine Sulfate (Oramorph Sr) 15 mg Q12HR PO Last administered on 11/18/16 10: 00; Start 11/16/16 at 21:00; Stop 11/18/16 at 16:36; Status DC Morphine Sulfate (Oramorph Sr) 15 mg ONCE ONCE PO Last administered on 12:32; Start 11/16/16 at 10:15; Stop 11/16/16 at 10:24; Status DC Gabapentin (Neurontin) 600 mg TID PO Last administered on 01/17/17 08:02; Start 11/16/16 at 13:00 Sodium Chloride 1,000 ml @ 999 mls/hr BOLUS ONCE IV Last administered on 17:22; Start 11/18/16 at 16:45; Stop 11/18/16 at 17:45; Status DC Morphine Sulfate (Oramorph Sr) 30 mg Q12HR PO Last administered on 11/29/16 09 :24; Start 11/18/16 at 21:00; Stop 11/29/16 at 14:26; Status DC Morphine Sulfate (Morphine Inj) 6 mg Q4H PRN IV PUSH PAIN SCALE 5 TO 10 Last administered on 11/19/16 05:59; Start 11/18/16 at 16:45; Stop 11/20/16 at 00:46; Status DC Morphine Sulfate (Morphine Inj) 3 mg Q3H PRN IV PUSH PAIN SCALE 1 TO 4 Last administered on 11/19/16 16:36; Start 11/18/16 at 16:45; Stop 11/20/16 at 00:46; Status DC Sodium Chloride 1,000 ml @ 125 mls/hr Q8H IV Last administered on 11/19/16 16: 15; Start 11/19/16 at 00:15; Stop 11/19/16 at 19:21; Status DC Sodium Chloride 500 ml @ 500 mls/hr BOLUS ONCE IV Last administered on 00:15; Start 11/19/16 at 00:15; Stop 11/19/16 at 01:14; Status DC Nystatin (Mycostatin Powder) 1 applic Q12HR TOPICAL Last administered on 08:54; Start 11/19/16 at 21:00; Stop 11/28/16 at 13:46; Status DC Acetaminophen/ Hydrocodone Bitart (Irving 7.5-325 Mg) 1 tab Q4H PRN PO PAIN SCALE 1 TO 4; Start 11/20/16 at 00:45; Stop 11/28/16 at 13:46; Status DC Acetaminophen/ Hydrocodone Bitart (Irving 10-325 Mg) 1 tab Q4H PRN PO PAIN SCALE 3-5 Last administered on 12/23/16 08:58; Start 11/20/16 at 00:45 Hydromorphone HCl (Dilaudid Pf Inj) 1 mg Q4H PRN IV PUSH BREAKTHROUGH PAIN Last administered on 12/17/16 10:38; Start 11/20/16 at 00:45; Stop 12/18/16 at 10:47; Status DC Propranolol HCl (Inderal) 40 mg Q12HR PO Last administered on 12/08/16 08:01; Start 11/22/16 at 21:00; Stop 12/08/16 at 10:00; Status DC Lactated Ringer's 1,000 ml @ 30 mls/hr Q24H PRN IV SEE LABEL COMMENTS; Start at 02:45; Stop 11/27/16 at 02:44; Status DC Sodium Chloride 500 ml @ 30 mls/hr [id number] PRN IV SEE LABEL COMMENTS; Start 11/24/16 at 02:45; Stop 11/27/16 at 02:44; Status DC Povidone Iodine (Betadine 5% Antisepsis Kit) 1 applic 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 PRN EACH NARE SEE LABEL COMMENTS; Start 11/24/16 at 02:45; Stop 11/27/16 at 02:44; Status DC Chlorhexidine Gluconate (Chlorhexidine 2% Cloth) 3 pack 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 PRN TOPICAL SEE LABEL COMMENTS; Start 11/24/16 at 02:45; Stop 11/27/16 at 02:44; Status DC Insulin Human Regular (NovoLIN R INJ) See Protocol Table ... 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 PRN SQ SEE PROTOCOL TABLE; Start 11/24/16 at 02:45; Stop 11/27/16 at 02:44; Status DC Prochlorperazine Edisylate (Compazine Inj) 10 mg Q8H PRN IV PUSH NAUSEA/ VOMITING Last administered on 11/25/16 18:00; Start 11/25/16 at 16:15 Sodium Chloride 500 ml @ 500 mls/hr BOLUS ONCE IV Last administered on 18:06; Start 11/25/16 at 17:00; Stop 11/25/16 at 17:59; Status DC Gentamicin Sulfate (Gentamicin Inj) 240 mg STK-MED ONCE .ROUTE Last administered on 11/28/16 10:42; Start 11/28/16 at 07:18; Stop 11/28/16 at 07:19 ; Status DC Vancomycin HCl (Vancomycin Inj) 1,000 mg STK-MED ONCE .ROUTE Last administered on 12/09/16 15:25; Start 11/28/16 at 07:38; Stop 11/28/16 at 07:39; Status DC Cefazolin Sodium/ Dextrose 50 ml @ As Directed STK-MED ONCE .ROUTE Last administered on 12/09/16 15:20; Start 11/28/16 at 07:38; Stop 11/28/16 at 07:39 ; Status DC Sodium Chloride 250 ml @ As Directed STK-MED ONCE .ROUTE ; Start 11/28/16 at 07 :39; Stop 11/28/16 at 07:40; Status DC Fentanyl Citrate (fentaNYL INJ) 250 mcg STK-MED ONCE .ROUTE ; Start 11/28/16 at 10:15; Stop 11/28/16 at 10:16; Status DC Cefazolin Sodium (Ancef Inj) 1,000 mg STK-MED ONCE .ROUTE Last administered on 11/28/16 10:31; Start 11/28/16 at 10:23; Stop 11/28/16 at 10:24; Status DC Lactated Ringer's 1,000 ml @ 100 mls/hr Q10H IV ; Start 11/28/16 at 10:59; Stop 12/03/16 at 09:16; Status DC Cefazolin Sodium/ Dextrose 50 ml @ 100 mls/hr Q8H IV Last administered on 12/01 06:46; Start 11/28/16 at 15:00; Stop 12/01/16 at 14:59; Status DC Magnesium Hydroxide (Milk Of Magnesia Liq) 30 ml Q12H PRN PO MILD - MODERATE CONSTIPATION Last administered on 12/26/16 10:08; Start 11/28/16 at 11:30 Sennosides (Senokot) 17.2 mg Q12H PRN PO MODERATE - SEVERE CONSTIPATION Last administered on 12/25/16 09:48; Start 11/28/16 at 11:30 Bisacodyl (Dulcolax Supp) 10 mg DAILY PRN RECTAL SEVERE CONSITIPATION Last administered on 12/11/16 12:30; Start 11/28/16 at 11:30 Albuterol Sulfate (*ALBUTEROL NEB PERIprocedure ONLY) 2.5 mg STK-MED ONCE NEB Last administered on 11/28/16 11:38; Start 11/28/16 at 11:38; Stop 11/28/16 at 11:39; Status DC Dexamethasone Sodium Phosphate (Decadron Inj) 4 mg STK-MED ONCE .ROUTE ; Start 11/28/16 at 11:51; Stop 11/28/16 at 11:52; Status DC Dexamethasone Sodium Phosphate (Decadron Inj) 4 mg NOW ONCE IV Last administered on 11/28/16 12:00; Start 11/28/16 at 12:00; Stop 11/28/16 at 12:01 ; Status DC Miscellaneous Information ALL NURSING DEPARTME... UNSCH PRN .XX SEE LABEL COMMENTS; Start 11/28/16 at 11:22; Stop 11/29/16 at 11:21; Status DC Morphine Sulfate (*morphine INJ PERIprocedure ONLY) 8 mg STK-MED ONCE .ROUTE Last administered on 11/28/16 12:01; Start 11/28/16 at 12:01; Stop 11/28/16 at 12:02; Status DC Acetaminophen/ Hydrocodone Bitart (Irving 10-325 Mg) 1.5 tab Q4H PRN PO pain 6- 10 Last administered on 12/23/16 17:35; Start 11/28/16 at 15:00; Stop 12/23/16 at 18:38; Status DC Nystatin (Mycostatin Cream) 1 applic Q6HR TOPICAL Last administered on 05:00; Start 11/28/16 at 14:00; Stop 12/16/16 at 13:46; Status DC Morphine Sulfate (Oramorph Sr) 30 mg Q8HR PO Last administered on 12/03/16 06: 09; Start 11/29/16 at 22:00; Stop 12/03/16 at 12:16; Status DC Cetirizine HCl (ZyrTEC) 10 mg HS PO Last administered on 12/07/16 20:03; Start 12/01/16 at 21:00; Stop 12/08/16 at 20:59; Status DC Fluticasone Propionate (Flonase Jerzy Spr) 2 spray DAILY EACH NARE Last administered on 12/15/16 08:54; Start 12/01/16 at 11:00; Stop 12/15/16 at 10:59 ; Status DC Folic Acid (Folate) 1 mg DAILY PO Last administered on 01/17/17 08:02; Start 12/03/16 at 09:00 Morphine Sulfate (Oramorph Sr) 30 mg Q8HR PO Last administered on 01/17/17 05: 43; Start 12/03/16 at 14:00 Lactobacillus Acidophilus (Lactinex) 1 tab TID PO Last administered on 08:10; Start 12/04/16 at 09:00; Stop 12/05/16 at 09:26; Status DC Enoxaparin Sodium (Lovenox Inj) 40 mg DAILY SQ Last administered on 01/17/17 08:02; Start 12/05/16 at 09:00 Al Hydrox/Mg Hydrox/Simethicone (Mag-Al Plus Susp Liq) 30 ml ONCE ONCE PO Last administered on 12/04/16 11:55; Start 12/04/16 at 11:45; Stop 12/04/16 at 11:50; Status DC Al Hydrox/Mg Hydrox/Simethicone (Mag-Al Plus Susp Liq) 30 ml Q6HR PRN PO HEARTBURN, INDIGESTION Last administered on 01/06/17 11:29; Start 12/04/16 at 18:00 Sucralfate (Carafate Liq) 1 gm QID PO Last administered on 12/16/16 13:41; Start 12/05/16 at 09:00; Stop 12/16/16 at 13:43; Status DC Lactobacillus Acidophilus (Lactinex) 1 tab BID PO Last administered on 09:36; Start 12/05/16 at 21:00; Stop 12/18/16 at 10:47; Status DC Polyethylene Glycol (Miralax) 17 gm DAILY PRN PO CONSTIPATION; Start 12/08/16 at 10:00; Stop 12/11/16 at 15:18; Status DC Propranolol HCl (Inderal) 20 mg Q12HR PO Last administered on 12/09/16 20:34; Start 12/08/16 at 21:00; Stop 12/10/16 at 07:34; Status DC Lactated Ringer's 1,000 ml @ 30 mls/hr Q24H PRN IV SEE LABEL COMMENTS; Start at 01:30; Stop 12/12/16 at 01:29; Status DC Sodium Chloride 500 ml @ 30 mls/hr [id number] PRN IV SEE LABEL COMMENTS; Start at 01:30; Stop 12/12/16 at 01:29; Status DC Povidone Iodine (Betadine 5% Antisepsis Kit) 1 applic 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 PRN EACH NARE SEE LABEL COMMENTS; Start 12/09/16 at 01:30; Stop 12/12/16 at 01:29; Status DC Chlorhexidine Gluconate (Chlorhexidine 2% Cloth) 3 pack 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 PRN TOPICAL SEE LABEL COMMENTS; Start 12/09/16 at 01:30; Stop 12/12/16 at 01:29; Status DC Insulin Human Regular (NovoLIN R INJ) See Protocol Table ... 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 PRN SQ SEE PROTOCOL TABLE; Start 12/09/16 at 01:30; Stop 12/12/16 at 01:29; Status DC Bupivacaine HCl/ Epinephrine Bitart (Sensorcaine-Epinephrine 0.25% Inj) 50 ml STK-MED ONCE .ROUTE ; Start 12/09/16 at 14:07; Stop 12/09/16 at 14:08; Status DC Mineral Oil (Muri-Lube Oil) 10 ml STK-MED ONCE .ROUTE ; Start 12/09/16 at 14:07 ; Stop 12/09/16 at 14:08; Status DC Gentamicin Sulfate (Gentamicin Inj) 240 mg STK-MED ONCE .ROUTE Last administered on 12/09/16 15:31; Start 12/09/16 at 14:07; Stop 12/09/16 at 14:08 ; Status DC Vancomycin HCl (Vancomycin Inj) 1,000 mg STK-MED ONCE .ROUTE ; Start 12/09/16 at 15:06; Stop 12/09/16 at 15:07; Status DC Cefazolin Sodium/ Dextrose 50 ml @ As Directed STK-MED ONCE .ROUTE ; Start 12/09 at 15:06; Stop 12/09/16 at 15:07; Status DC Lactated Ringer's 1,000 ml @ 100 mls/hr Q10H IV ; Start 12/09/16 at 15:57; Stop 12/16/16 at 13:45; Status DC Cefazolin Sodium/ Dextrose 50 ml @ 100 mls/hr Q8H IV Last administered on 12/16 13:42; Start 12/09/16 at 20:00; Stop 12/16/16 at 19:59; Status DC Gentamicin Sulfate/Sodium Chloride 100 ml @ 200 mls/hr Q8H IV Last administered on 12/12/16 12:25; Start 12/09/16 at 21:00; Stop 12/12/16 at 20:59 ; Status DC Morphine Sulfate (*morphine INJ PERIprocedure ONLY) 8 mg STK-MED ONCE .ROUTE Last administered on 12/09/16 16:32; Start 12/09/16 at 16:32; Stop 12/09/16 at 16:33; Status DC Fentanyl Citrate (fentaNYL INJ) 250 mcg STK-MED ONCE .ROUTE ; Start 12/09/16 at 16:33; Stop 12/09/16 at 16:34; Status DC Miscellaneous Information ALL NURSING DEPARTME... UNSCH PRN .XX SEE LABEL COMMENTS; Start 12/09/16 at 16:20; Stop 12/10/16 at 16:19; Status DC Morphine Sulfate (*morphine INJ PERIprocedure ONLY) 8 mg STK-MED ONCE .ROUTE Last administered on 12/09/16 17:01; Start 12/09/16 at 17:01; Stop 12/09/16 at 17:02; Status DC Propranolol HCl (Inderal) 10 mg Q12HR PO Last administered on 12/13/16 09:42; Start 12/10/16 at 09:00; Stop 12/13/16 at 10:32; Status DC Menthol/Methyl Salicylate (Aleks Daniels Oint) 1 applic UNSCH PRN TOPICAL arthritic pain Last administered on 12/12/16 17:51; Start 12/11/16 at 15:30 Propranolol HCl (Inderal) 20 mg Q12HR PO ; Start 12/13/16 at 21:00; Stop at 21:00; Status DC Propranolol HCl (Inderal) 10 mg Q12HR PO Last administered on 01/17/17 08:02; Start 12/13/16 at 21:00 Bacitracin (Baciguent Oint) 1 applic DAILY PRN TOPICAL WOUND VAC DRESSING CHANGE; Start 12/15/16 at 12:30 Sucralfate (Carafate Liq) 1 gm BID PO Last administered on 12/30/16 08:30; Start 12/16/16 at 21:00; Stop 12/30/16 at 20:59; Status DC Lidocaine HCl (Lidoderm 5% Patch.12 Hr) 1 patch DAILY T-DERMAL Last administered on 12/18/16 11:33; Start 12/18/16 at 10:00; Stop 12/19/16 at 19:35 ; Status DC Miscellaneous Information 1 Q24H T-DERMAL ; Start 12/18/16 at 21:00; Stop at 19:35; Status DC Lactobacillus Acidophilus (Lactinex) 1 tab TID PO Last administered on 08:02; Start 12/18/16 at 13:00 Lidocaine HCl (Lidoderm 5% Patch.12 Hr) 1 patch HS T-DERMAL Last administered on 01/16/17 19:32; Start 12/19/16 at 21:00 Miscellaneous Information 1 Q24H T-DERMAL Last administered on 01/15/17 09:00 ; Start 12/20/16 at 09:00 Propofol (Diprivan 200 Mg/20 ml Inj) 200 mg STK-MED ONCE IV ; Start 11/07/16 at 12:00; Stop 12/23/16 at 10:36; Status DC Ephedrine Sulfate (ePHEDrine/NS 25 MG/5 ML SYR) 50 mg STK-MED ONCE IV ; Start at 12:00; Stop 12/23/16 at 10:36; Status DC Neostigmine Methylsulfate (Prostigmin Inj) 3 mg STK-MED ONCE IV ; Start at 12:00; Stop 12/23/16 at 10:36; Status DC Phenylephrine HCl (Neosynephrine/ NS 1000 Mcg/10ml Syr) 1,000 mcg STK-MED ONCE IV ; Start 11/07/16 at 12:00; Stop 12/23/16 at 10:37; Status DC Ondansetron HCl (Zofran Inj) 4 mg STK-MED ONCE IV PUSH ; Start 11/07/16 at 12:00 ; Stop 12/23/16 at 10:37; Status DC Lactated Ringer's 1,000 ml @ As Directed STK-MED ONCE IV ; Start 11/07/16 at 12 :00; Stop 12/23/16 at 10:37; Status DC Parenteral Electrolytes 1,000 ml @ As Directed STK-MED ONCE IV ; Start at 12:00; Stop 12/23/16 at 10:37; Status DC Propofol (Diprivan 200 Mg/20 ml Inj) 400 mg STK-MED ONCE IV ; Start 11/10/16 at 12:00; Stop 12/23/16 at 12:04; Status DC Phenylephrine HCl (Neosynephrine/ NS 1000 Mcg/10ml Syr) 2,000 mcg STK-MED ONCE IV ; Start 11/10/16 at 12:00; Stop 12/23/16 at 12:04; Status DC Ondansetron HCl (Zofran Inj) 4 mg STK-MED ONCE IV PUSH ; Start 11/10/16 at 12:00 ; Stop 12/23/16 at 12:04; Status DC Lactated Ringer's 1,000 ml @ As Directed STK-MED ONCE IV ; Start 11/10/16 at 12 :00; Stop 12/23/16 at 12:04; Status DC Propofol (Diprivan 200 Mg/20 ml Inj) 200 mg STK-MED ONCE IV ; Start 11/13/16 at 12:00; Stop 12/23/16 at 12:38; Status DC Ephedrine Sulfate (ePHEDrine/NS 25 MG/5 ML SYR) 25 mg STK-MED ONCE IV ; Start at 12:00; Stop 12/23/16 at 12:38; Status DC Phenylephrine HCl (Neosynephrine/ NS 1000 Mcg/10ml Syr) 1,000 mcg STK-MED ONCE IV ; Start 11/13/16 at 12:00; Stop 12/23/16 at 12:38; Status DC Ondansetron HCl (Zofran Inj) 4 mg STK-MED ONCE IV PUSH ; Start 11/13/16 at 12:00 ; Stop 12/23/16 at 12:38; Status DC Lactated Ringer's 1,000 ml @ As Directed STK-MED ONCE IV ; Start 11/13/16 at 12 :00; Stop 12/23/16 at 12:38; Status DC Neostigmine Methylsulfate (Prostigmin Inj) 3 mg STK-MED ONCE IV ; Start at 12:00; Stop 12/23/16 at 12:38; Status DC Propofol (Diprivan 200 Mg/20 ml Inj) 200 mg STK-MED ONCE IV ; Start 11/28/16 at 12:00; Stop 12/23/16 at 12:50; Status DC Ephedrine Sulfate (ePHEDrine/NS 25 MG/5 ML SYR) 25 mg STK-MED ONCE IV ; Start at 12:00; Stop 12/23/16 at 12:50; Status DC Ondansetron HCl (Zofran Inj) 4 mg STK-MED ONCE IV PUSH ; Start 11/28/16 at 12:00 ; Stop 12/23/16 at 12:50; Status DC Propofol (Diprivan 200 Mg/20 ml Inj) 200 mg STK-MED ONCE IV ; Start 12/09/16 at 12:00; Stop 12/23/16 at 14:38; Status DC Ephedrine Sulfate (ePHEDrine/NS 25 MG/5 ML SYR) 50 mg STK-MED ONCE IV ; Start at 12:00; Stop 12/23/16 at 14:38; Status DC Ondansetron HCl (Zofran Inj) 4 mg STK-MED ONCE IV PUSH ; Start 12/09/16 at 12:00 ; Stop 12/23/16 at 14:38; Status DC Acetaminophen/ Hydrocodone Bitart (Irving 10-325 Mg) 2 tab Q4H PRN PO pain 6-10 Last administered on 01/17/17t 06:37; Start 12/23/16 at 18:45 Vancomycin HCl 5000 mg/Sodium Chloride 3,000 ml @ 10 mls/hr Q24H PRN IRRIGATION DRESSING CHANGE Last administered on 01/08/17 01:36; Start 12/25/16 at 08:00 Diphenhydramine HCl (Benadryl) 12.5 mg Q4H PRN PO itching Last administered on 12/28/16 07:54; Start 12/25/16 at 16:45; Stop 12/28/16 at 13:48; Status DC Ferrous Sulfate (Ferrous Sulfate) 325 mg BID@12,17 PO Last administered on 01/16 17:29; Start 12/26/16 at 12:00 Ascorbic Acid (Vitamin C) 500 mg BID PO Last administered on 01/17/17 08:02; Start 12/26/16 at 09:00 Pharmacy Profile Note 0 ml @ 0 mls/hr UNSCH OTHER ; Start 12/26/16 at 14:45 Vancomycin HCl 1500 mg/Sodium Chloride 515 ml @ 257.5 mls/ hr Q12H IV Last administered on 12/26/16 20:17; Start 12/26/16 at 17:00; Stop 12/27/16 at 04:54; Status DC Miscellaneous Information SPECIFIC LAB TO BE LEANNA... ONCE ONCE .XX ; Start 12/28 at 04:45; Stop 12/28/16 at 04:46; Status Cancel Vancomycin HCl 1500 mg/Sodium Chloride 515 ml @ 257.5 mls/ hr Q12H IV Last administered on 12/29/16 20:50; Start 12/27/16 at 08:00; Stop 12/29/16 at 20:35 ; Status DC Miscellaneous Information SPECIFIC LAB TO BE LEANNA... ONCE ONCE .XX ; Start 12/28 at 07:45; Stop 12/28/16 at 07:46; Status DC Miscellaneous Information SPECIFIC LAB TO BE LEANNA... ONCE ONCE .XX Last administered on 12/29/16 20:45; Start 12/29/16 at 20:45; Stop 12/29/16 at 20:46 ; Status DC Diphenhydramine HCl (Benadryl) 50 mg Q4H PRN PO itching Last administered on 22:26; Start 12/28/16 at 16:45 Vancomycin HCl 1500 mg/Sodium Chloride 515 ml @ 257.5 mls/ hr Q12H IV Last administered on 01/03/17 08:51; Start 12/29/16 at 21:00; Stop 01/03/17 at 22:00 ; Status DC Miscellaneous Information SPECIFIC LAB TO BE DRAWN:VANCO TROUGH DATE TO BE DR... ONCE ONCE .XX Last administered on 12/31/16 08:45; Start 12/31/16 at 08 :45; Stop 12/31/16 at 08:46; Status DC Miscellaneous Information SPECIFIC LAB TO BE LEANNA... ONCE ONCE .XX ; Start 01/03 at 08:45; Stop 01/03/17 at 08:46; Status DC Fluticasone Propionate (Flonase Jerzy Spr) 1 spray BID NASAL Last administered on 01/17/17 08:04; Start 01/02/17 at 21:00 Miscellaneous Information SPECIFIC LAB TO BE DRAWN:VANCOMY... ONCE ONCE .XX Last administered on 01/03/17 20:45; Start 01/03/17 at 20:45; Stop 01/03/17 at 20:46; Status DC Vancomycin HCl 1500 mg/Sodium Chloride 515 ml @ 257.5 mls/ hr Q12H IV Last administered on 01/16/17 22:26; Start 01/03/17 at 22:00 Miscellaneous Information SPECIFIC LAB TO BE LEANNA... ONCE ONCE .XX ; Start 01/04 at 21:45; Stop 01/04/17 at 21:46; Status DC Miscellaneous Information SPECIFIC LAB TO BE LEANNA... ONCE ONCE .XX ; Start 01/05 at 21:45; Stop 01/05/17 at 21:46; Status DC Calcium Carbonate (Tums Chew) 500 mg Q12HR CHEW Last administered on 01/17/17 08:01; Start 01/05/17 at 11:30 Cefazolin Sodium/ Dextrose 50 ml @ As Directed STK-MED ONCE .ROUTE Last administered on 01/09/17 13:01; Start 01/09/17 at 11:31; Stop 01/09/17 at 11:32 ; Status DC Lidocaine HCl (Xylocaine 2% Jelly) 30 applic STK-MED ONCE .ROUTE Last administered on 01/09/17 13:08; Start 01/09/17 at 11:31; Stop 01/09/17 at 11:32 ; Status DC Mineral Oil (Muri-Lube Oil) 10 ml STK-MED ONCE .ROUTE Last administered on 01/09 13:08; Start 01/09/17 at 11:31; Stop 01/09/17 at 11:32; Status DC Gentamicin Sulfate (Gentamicin Inj) 240 mg STK-MED ONCE .ROUTE Last administered on 01/09/17 13:08; Start 01/09/17 at 11:31; Stop 01/09/17 at 11:32 ; Status DC Lactated Ringer's 1,000 ml @ 100 mls/hr Q10H IV Last administered on 14:15; Start 01/09/17 at 13:34 Morphine Sulfate (*morphine INJ PERIprocedure ONLY) 8 mg STK-MED ONCE .ROUTE Last administered on 01/09/17 14:10; Start 01/09/17 at 14:10; Stop 01/09/17 at 14:11; Status DC Miscellaneous Information ALL NURSING DEPARTME... UNSCH PRN .XX SEE LABEL COMMENTS; Start 01/09/17 at 13:52; Stop 01/10/17 at 13:51; Status DC Miscellaneous Information SPECIFIC LAB TO BE LEANNA... ONCE ONCE .XX Last administered on 01/11/17 09:45; Start 01/11/17 at 09:45; Stop 01/11/17 at 09:46 ; Status DC Miscellaneous Information SPECIFIC LAB TO BE LEANNA... ONCE ONCE .XX Last administered on 01/17/17 09:41; Start 01/17/17 at 09:45; Stop 01/17/17 at 09:46 ; Status DC A/P Assessment and Plan A/P Bilateral open tibia-fibula fractures Left tibial plateau fracture MRSA in wound- deep infection? - Open fractures have been surgically repaired, right side has external fixation - s/p Removal of external fixation right lower extremity, irrigation debridement of left leg, split-thickness skin graft left leg, application wound VAC dressing on 01/09 - left tibial plateau fracture treated nonoperatively - continue with pain control. -management per ortho: LLE: -50%WB for transfers only -maintain splint at all times -maintain vac at all times -plan to remove vac at bedside on Thursday or Thursday and hopefully discontinue wound VAC -daily dressing changes of harvest site. change ABD only. leave xeroform in place. RLE: -NWB -fx boot at all times except for PT -PT to work on ankle ROM -daily dressing changes of pin sites with xeroform/4x4/margie - wound culture ( leg) 12/23 positive for MRSA -on Vanco- plan for six weeks from the start date- per ID -monitor CBC/ CMP weekly. Acute blood loss anemia JAMAR - Related to trauma vs post op blood loss - Status post transfusion of 2 units of packed red blood cells in 11/12/16. - on iron supplementation daily. - hemoglobin stable - monitor CBC as indicated Coronary artery disease with h/o previous CABG - Appears stable. Patient is asymptomatic. - Continue propranolol and statin - ASA 81mg daily - Clonidine PRN Hypertension - controlled - MARGIE inhibitor held due to hypotension. Diabetes mellitus type 2 - blood sugars well controlled - accu checks discontinued Alcohol abuse Transaminitis, resolved - AST and ALT now within normal range. - Continue with daily thiamine and folic acid - Alcohol cessation recommended Tobacco abuse - Cessation recommended. Chronic essential tremor - Continue Propranolol Allergic rhinitis - Flonase Indigestion -Patient on Protonix and Maalox. DVT prophylaxis with Lovenox Blaine Corrales MD Jan 17, 2017 10:15
[2017-01-17] MEDS: FERROUS SULFATE 325 MG (65 MG ELEMENTAL IRON) TAB PO SCH ×2 (11:05→15:18)
[2017-01-17 11:06] VITALS: BP 111/64; PULSE 75; RESP 16; TEMP 96.4; O2SAT 97
[2017-01-17] MEDS: ALUMINUM/MAGNESIUM/SIMETH 30 ML CUP PO PRN (13:28)
[2017-01-17] MEDS: diphenhydrAMINE HCL 50 MG CAP PO PRN (15:18)
[2017-01-17] MEDS: CALCIUM CARBONATE 500 MG CHEWABLE TAB CHEW PRN (15:18)
[2017-01-17 15:19] VITALS: BP 122/73; PULSE 75; RESP 16; TEMP 97.2; O2SAT 97
[2017-01-17] MEDS: VANCOMYCIN 1,500 MG/NS 500 ML IV SCH ×2 (15:19)
[2017-01-17] MEDS: ONDANSETRON HCL 4 MG/2 ML VIAL IV PRN (19:59)
[2017-01-17 20:35] VITALS: BP 119/78; PULSE 70; RESP 17; TEMP 98.1; O2SAT 96
[2017-01-17] MEDS: MAGNESIUM HYDROXIDE SUSP 30 ML CUP PO SCH ×2 (21:49→21:54)
[2017-01-17] MEDS: LIDOCAINE HCL 5% PATCH T-DERMAL SCH (21:49)
[2017-01-17] MEDS: PRAVASTATIN SOD 80 MG TAB PO SCH (21:50)
[2017-01-17] MEDS: traZODone HCL 100 MG TAB PO SCH (21:50)
[2017-01-18] MEDS: diphenhydrAMINE HCL 50 MG CAP PO PRN ×2 (04:01→16:16)
[2017-01-18] MEDS: ACETAMINOPHEN/HYDROcodone 325 MG/10 MG TAB PO PRN ×5 (04:02→20:26)
[2017-01-18] MEDS: VANCOMYCIN 1,500 MG/NS 500 ML IV SCH ×4 (04:02→16:17)
[2017-01-18] MEDS: MORPHINE SULFATE 30 MG CONTROLLED RELEASE TAB PO SCH ×3 (05:57→22:48)
[2017-01-18] MEDS: LACTATED RINGER'S 1000 ML INJ 1,000 ML IV SCH ×2 (06:52→16:22)
[2017-01-18] MEDS: NEOMYCIN/POLYMYXIN/BACITRACIN OINT 15 GM TUBE TOPICAL SCH (06:54)
[2017-01-18] MEDS: REMOVE OLD LIDOCAINE PATCH T-DERMAL SCH (06:54)
[2017-01-18] MEDS: PANTOPRAZOLE SOD 40 MG DELAYED RELEASE TAB PO SCH (07:34)
[2017-01-18] MEDS: THIAMINE HCL 100 MG TAB PO SCH (07:34)
[2017-01-18] MEDS: FOLIC ACID 1 MG TAB PO SCH (07:34)
[2017-01-18] MEDS: ALUMINUM/MAGNESIUM/SIMETH 30 ML CUP PO PRN (07:35)
[2017-01-18] MEDS: GABAPENTIN 300 MG CAP PO SCH ×3 (07:35→16:16)
[2017-01-18] MEDS: CALCIUM CARBONATE 500 MG CHEWABLE TAB CHEW SCH ×2 (07:35→20:25)
[2017-01-18] MEDS: ASCORBIC ACID 500 MG TAB PO SCH ×2 (07:35→20:25)
[2017-01-18] MEDS: PROPRANOLOL HCL 10 MG TAB PO SCH ×2 (07:35→20:25)
[2017-01-18] MEDS: LACTOBACILLUS ACIDOPHILUS TAB PO SCH ×3 (07:35→16:16)
[2017-01-18] MEDS: ASPIRIN 81 MG CHEW TAB CHEW SCH (07:35)
[2017-01-18] MEDS: DOCUSATE SODIUM 50 MG/SENNA 8.6 MG TAB PO SCH ×2 (07:35→20:25)
[2017-01-18] MEDS: ENOXAPARIN SODIUM 40 MG/0.4 ML SYRINGE SQ SCH (07:36)
[2017-01-18] MEDS: SODIUM CHLORIDE 0.9% FLUSH 10 ML FLUSH IV FLUSH SCH ×2 (07:36→20:26)
[2017-01-18] MEDS: CALCIUM/VITAMIN D 250 MG/125 U TAB PO SCH ×3 (07:39→16:16)
[2017-01-18] MEDS: FLUTICASONE PROPIONATE 50 MCG/ACT 16 GM NASAL SPRAY NASAL SCH ×2 (07:39→20:26)
[2017-01-18 08:00] VITALS: BP 122/63; PULSE 64; RESP 18; TEMP 96.6; O2SAT 98
--- NOTE | 2017-01-18 11:09 | HHI.PR ---
Subjective Remarks Follow-up for a trauma patient with bilateral lower extremity fractures. Patient is currently doing well. Pain is well controlled. Denies any chest pain, shortness of breath, fever or chills. Objective Vitals Vital Signs Date Time Temp Pulse Resp B/P (MAP) Pulse Ox O2 Delivery O2 Flow Rate FiO2 01/18/17 08:00 96.6 64 18 122/63 (82) 98 01/17/17 20:35 98.1 70 17 119/78 (92) 96 01/17/17 15:19 97.2 75 16 122/73 (89) 97 01/17/17 11:06 96.4 75 16 111/64 (80) 97 I/O 01/17/17 01/17/17 01/17/17 01/18/17 01/18/17 01/18/17 07:00 15:00 23:00 07:00 15:00 23:00 Intake Total 1150 ml 840 ml 720 ml 480 ml Output Total 0 ml 0 ml 500 ml Balance 1150 ml 840 ml 720 ml -20 ml Intake Oral 650 ml 840 ml 720 ml 480 ml IV Total 500 ml Output Urine Total 500 ml Drainage Total 0 ml 0 ml # Voids 2 3 2 # Bowel Movements 1 0 0 Result Diagram: 01/17/17 0742 01/17/17 0742 Imaging Last Impressions Ankle X-Ray 01/09/17 0000 Signed Impressions: Service Date/Time: Monday, January 09, 2017 12:59 - CONCLUSION: Fluoroscopic images during placement of screws along the distal tibia and single long screw along the distal fibula. Fractures are again seen.. Jac Gonzales MD Tibia/Fibula X-Ray 01/01/17 0000 Signed Impressions: Service Date/Time: December 09:33 - CONCLUSION: There are no complications. Paul Fuentes MD Knee X-Ray 01/01/17 0000 Signed Impressions: Service Date/Time: December 09:37 - CONCLUSION: Lateral tibial plateau fracture without involvement of the articulating surface. Paul Fuentes MD Foot X-Ray 12/27/16 0000 Signed Impressions: Service Date/Time: Tuesday, December 27, 2016 16:50 - CONCLUSION: Distal tibia and fibula fractures with internal fixation hardware. Samir Massey MD Gall Bladder Ultrasound 12/05/16 0000 Signed Impressions: Service Date/Time: Monday, December 05, 2016 08:38 - CONCLUSION: Unremarkable exam. Gallbladder is within normal limits with no evidence of cholelithiasis. Ronald Rao MD Abdomen X-Ray 12/04/16 0000 Signed Impressions: Service Date/Time: , December 04, 2016 10:42 - CONCLUSION: Unremarkable bowel gas pattern. Ronald Rao MD Chest X-Ray 11/20/16 0000 Signed Impressions: Service Date/Time: , November 20, 2016 17:08 - CONCLUSION: 1. No acute abnormality or significant interval change. Sukhi Stevens MD Pelvis X-Ray 11/07/16 1355 Signed Impressions: Service Date/Time: Monday, November 07, 2016 13:34 - CONCLUSION: No acute disease. Behzad Finch Jr., MD Objective Remarks GENERAL: Alert, oriented 3, NAD. SKIN: Warm and dry. HEAD: Normocephalic. EYES: No scleral icterus. No injection or drainage. NECK: Supple, trachea midline. No JVD or lymphadenopathy. CARDIOVASCULAR: Regular rate and rhythm without murmurs, gallops, or rubs. RESPIRATORY: Breath sounds equal bilaterally. No accessory muscle use. GASTROINTESTINAL: Abdomen soft, non-tender, nondistended. MUSCULOSKELETAL: No cyanosis, or edema. Fracture port in place on the right lower extremity. Splint and on VAC in place on the left side. BACK: Nontender without obvious deformity. No CVA tenderness. Procedures 1.s/p I&D with ex fix application bilateral tibias s/p wound vac application left tibia 2.With the assistance of RN, under sterile technique the avulsed skin of the right middle finger was clipped. No bleeding noted. Patient gave consent 3.Open reduction internal fixation of right distal tibia and fibula fractures Nonoperative treatment left tibial plateau fracture Irrigation and debridement of left tibia shaft fracture, removal external fixation, soleus muscle rotational flap, intramedullary nail fixation left tibia , application of wound VAC dressing 4.11/13 Irrigation and debridement of left tibia, application wound VAC dressing 5. 8 Irrigation and debridement of left open tibia fracture with application of wound VAC dressing 6. 8 wound vac change at the bedside 7. 8 wound vac change at the bedside 8. 12/08 wound vac change at the bedside . 12/09 I&D left tibia, application of wound VAC dressing and application of AlloMax allograft dermal matrix . 01/09 Removal of external fixation right lower extremity, irrigation debridement of left leg, split-thickness skin graft left leg, application wound VAC dressing A/P Problem List: (1) Fracture of tibia, left, open ICD Code: S82.202B - Unspecified fracture of shaft of left tibia, initial encounter for open fracture type I or II Status: Acute (2) Fracture of tibia, right, open ICD Code: S82.201B - Unspecified fracture of shaft of right tibia, initial encounter for open fracture type I or II Status: Acute (3) Hypotension ICD Code: I95.9 - Hypotension, unspecified Status: Acute (4) Right shoulder pain ICD Code: M25.511 - Pain in right shoulder Assessment and Plan Mr. Donohue is a 61 year old male who was brought to the hospital on 11/07/2016 as a trauma alert. 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 Patient's sustained severe bilateral leg pain. Imaging studies indicated bilateral tibial and fibular fractures. Patient has undergone multiple orthopedic surgical interventions. Bilateral open tibia-fibula fractures Left tibial plateau fracture MRSA in wound- possibly deep infection. - Open fractures have been surgically repaired, right side has external fixation - s/p Removal of external fixation right lower extremity, irrigation debridement of left leg, split-thickness skin graft left leg, application wound VAC dressing on 01/09 - left tibial plateau fracture treated nonoperatively - continue with pain control. - management per ortho: LLE: -50%WB for transfers only -maintain splint at all times -maintain vac at all times -plan to remove vac at bedside on Thursday or Thursday (01/20/2017) and hopefully discontinue wound VAC -daily dressing changes of harvest site. change ABD only. leave xeroform in place. RLE: -NWB -fx boot at all times except for PT -PT to work on ankle ROM -daily dressing changes of pin sites with xeroform/4x4/tamia - wound culture ( leg) 12/23 positive for MRSA - on Vanco- plan for six weeks from the starting date which was likely 2016. - monitor CBC/ CMP weekly. Acute blood loss anemia - Related to trauma vs post op blood loss - Status post transfusion of 2 units of packed red blood cells in 11/12/16. - on iron supplementation daily. - hemoglobin stable - monitor CBC as indicated Coronary artery disease with h/o previous CABG - Appears stable. Patient is asymptomatic. - Continue propranolol 10 mg every 12 hours and pravastatin 80 mg daily at bedtime - ASA 81mg daily Hypertension - Currently normotensive. - If necessary we'll consider calcium channel gil Alcohol abuse Tobacco abuse - Continue with daily thiamine and folic acid - Tobacco, Alcohol cessation recommended Chronic essential tremor - Continue Propranolol Full code. Lovenox. Problem Qualifiers (1) Fracture of tibia, left, open: (2) Fracture of tibia, right, open: (3) Hypotension: (4) Right shoulder pain: Qualified Codes: M25.511 - Pain in right shoulder; G89.29 - Other chronic pain Neva Owens DO Jan 18, 2017 11:09
[2017-01-18 12:00] VITALS: BP 113/68; PULSE 72; RESP 18; TEMP 96.7; O2SAT 95
[2017-01-18] MEDS: FERROUS SULFATE 325 MG (65 MG ELEMENTAL IRON) TAB PO SCH ×2 (12:01→16:16)
[2017-01-18 16:14] VITALS: BP 103/62; PULSE 61; RESP 16; TEMP 97.1; O2SAT 96
[2017-01-18] MEDS: MAGNESIUM HYDROXIDE SUSP 30 ML CUP PO SCH (20:25)
[2017-01-18] MEDS: PRAVASTATIN SOD 80 MG TAB PO SCH (20:25)
[2017-01-18] MEDS: traZODone HCL 100 MG TAB PO SCH (20:25)
[2017-01-18] MEDS: LIDOCAINE HCL 5% PATCH T-DERMAL SCH (20:26)
[2017-01-18 20:39] VITALS: BP 109/63; PULSE 65; RESP 17; TEMP 96.8; O2SAT 97
[2017-01-19] MEDS: ACETAMINOPHEN/HYDROcodone 325 MG/10 MG TAB PO PRN ×5 (00:51→20:41)
[2017-01-19] MEDS: LACTATED RINGER'S 1000 ML INJ 1,000 ML IV SCH ×3 (03:34→23:27)
[2017-01-19] MEDS: diphenhydrAMINE HCL 50 MG CAP PO PRN ×2 (03:58→17:40)
[2017-01-19] MEDS: VANCOMYCIN 1,500 MG/NS 500 ML IV SCH ×4 (04:00→16:00)
[2017-01-19] MEDS: MORPHINE SULFATE 30 MG CONTROLLED RELEASE TAB PO SCH ×3 (05:55→23:25)
[2017-01-19 08:00] VITALS: BP 117/76; PULSE 73; RESP 18; TEMP 96.2; O2SAT 97
[2017-01-19] MEDS: DOCUSATE SODIUM 50 MG/SENNA 8.6 MG TAB PO SCH ×2 (08:29→20:41)
[2017-01-19] MEDS: PANTOPRAZOLE SOD 40 MG DELAYED RELEASE TAB PO SCH (08:29)
[2017-01-19] MEDS: ENOXAPARIN SODIUM 40 MG/0.4 ML SYRINGE SQ SCH (08:29)
[2017-01-19] MEDS: THIAMINE HCL 100 MG TAB PO SCH (08:29)
[2017-01-19] MEDS: FOLIC ACID 1 MG TAB PO SCH (08:29)
[2017-01-19] MEDS: ASCORBIC ACID 500 MG TAB PO SCH ×2 (08:29→20:41)
[2017-01-19] MEDS: CALCIUM/VITAMIN D 250 MG/125 U TAB PO SCH ×3 (08:29→17:37)
[2017-01-19] MEDS: LACTOBACILLUS ACIDOPHILUS TAB PO SCH ×3 (08:29→17:37)
[2017-01-19] MEDS: PROPRANOLOL HCL 10 MG TAB PO SCH ×2 (08:30→20:41)
[2017-01-19] MEDS: ASPIRIN 81 MG CHEW TAB CHEW SCH (08:30)
[2017-01-19] MEDS: FLUTICASONE PROPIONATE 50 MCG/ACT 16 GM NASAL SPRAY NASAL SCH ×2 (08:30→20:41)
[2017-01-19] MEDS: CALCIUM CARBONATE 500 MG CHEWABLE TAB CHEW SCH ×2 (08:30→20:41)
[2017-01-19] MEDS: GABAPENTIN 300 MG CAP PO SCH ×3 (08:30→17:37)
[2017-01-19] MEDS: NEOMYCIN/POLYMYXIN/BACITRACIN OINT 15 GM TUBE TOPICAL SCH (08:31)
[2017-01-19] MEDS: SODIUM CHLORIDE 0.9% FLUSH 10 ML FLUSH IV FLUSH SCH ×2 (08:31→20:41)
[2017-01-19] MEDS: REMOVE OLD LIDOCAINE PATCH T-DERMAL SCH (08:31)
--- NOTE | 2017-01-19 08:32 | PD.ORT.PN ---
Subjective Subjective Remarks Pain controlled Doing well Objective Vitals Vital Signs Date Time Temp Pulse Resp B/P (MAP) Pulse Ox O2 Delivery O2 Flow Rate FiO2 01/18/17 20:39 96.8 65 17 109/63 (78) 97 01/18/17 16:14 97.1 61 16 103/62 (76) 96 01/18/17 12:00 96.7 72 18 113/68 (83) 95 I/O 01/18/17 01/18/17 01/18/17 01/19/17 01/19/17 01/19/17 07:00 15:00 23:00 07:00 15:00 23:00 Intake Total 480 ml 1220 ml 720 ml 480 ml Output Total 500 ml 0 ml 500 ml Balance -20 ml 1220 ml 720 ml -20 ml Intake Oral 480 ml 720 ml 720 ml 480 ml IV Total 500 ml Output Urine Total 500 ml 500 ml Drainage Total 0 ml # Voids 3 2 # Bowel Movements 0 0 0 1 Result Diagram: 01/17/17 0742 01/17/17 0742 Imaging Last 24 hours Impressions Pelvis X-Ray 11/07/16 2005 Signed Impressions: Service Date/Time: Monday, November 07, 2016 13:34 - CONCLUSION: No acute disease. Behzad Finch Jr., MD Chest X-Ray 11/07/16 1359 Signed Impressions: Service Date/Time: Monday, November 07, 2016 13:34 - CONCLUSION: No acute disease. Jac Gonzales MD Objective Remarks RLE: +fracture boot. dressings clean and dry LLE: Splint taken down. Wound VAC removed. Dressing of bacitracin and Adaptic applied to skin graft. Soft dressings reapplied with 4 x 4's ABDs and Raul wrap. Assessment & Plan Assessment and Plan 1) Right Open Tibia Fracture s/p exfix revision with ORIF 2) Left Open Tibia Fracture s/p Soleus muscle flap with IMN and removal of exfix 3) left tibia plateau fracture treated nonoperatively 4) s/p STSG left leg LLE: -50%WB for transfers only -Discontinue wound VAC -Daily dressing changes with bacitracin, Adaptic, 4 x 4's and ABDs with Raul wrap -daily dressing changes of harvest site. change ABD only. leave xeroform in place. Consult plastics for exposed tendon RLE: -NWB -fx boot at all times except for PT -PT to work on ankle ROM -daily dressing changes of pin sites with xeroform/4x4/raul Ronald Hatch Jr. Jan 19, 2017 08:32
--- NOTE | 2017-01-19 09:09 | HHI.PR ---
Subjective Remarks Follow-up for a trauma patient with bilateral lower extremity fractures. Patient is doing well. No acute concerns. Wound vac discontinued by ortho today. Objective Vitals Vital Signs Date Time Temp Pulse Resp B/P (MAP) Pulse Ox O2 Delivery O2 Flow Rate FiO2 01/18/17 20:39 96.8 65 17 109/63 (78) 97 01/18/17 16:14 97.1 61 16 103/62 (76) 96 01/18/17 12:00 96.7 72 18 113/68 (83) 95 I/O 01/18/17 01/18/17 01/18/17 01/19/17 01/19/17 01/19/17 07:00 15:00 23:00 07:00 15:00 23:00 Intake Total 480 ml 1220 ml 720 ml 480 ml Output Total 500 ml 0 ml 500 ml Balance -20 ml 1220 ml 720 ml -20 ml Intake Oral 480 ml 720 ml 720 ml 480 ml IV Total 500 ml Output Urine Total 500 ml 500 ml Drainage Total 0 ml # Voids 3 2 # Bowel Movements 0 0 0 1 Result Diagram: 01/17/17 0742 01/19/17 0749 Imaging Last Impressions Ankle X-Ray 01/09/17 0000 Signed Impressions: Service Date/Time: Monday, January 09, 2017 12:59 - CONCLUSION: Fluoroscopic images during placement of screws along the distal tibia and single long screw along the distal fibula. Fractures are again seen.. Jac Gonzales MD Tibia/Fibula X-Ray 01/01/17 0000 Signed Impressions: Service Date/Time: December 09:33 - CONCLUSION: There are no complications. Paul Fuentes MD Knee X-Ray 01/01/17 0000 Signed Impressions: Service Date/Time: December 09:37 - CONCLUSION: Lateral tibial plateau fracture without involvement of the articulating surface. Paul Fuentes MD Foot X-Ray 12/27/16 0000 Signed Impressions: Service Date/Time: Tuesday, December 27, 2016 16:50 - CONCLUSION: Distal tibia and fibula fractures with internal fixation hardware. Samir Massey MD Gall Bladder Ultrasound 12/05/16 0000 Signed Impressions: Service Date/Time: Monday, December 05, 2016 08:38 - CONCLUSION: Unremarkable exam. Gallbladder is within normal limits with no evidence of cholelithiasis. Ronald Rao MD Abdomen X-Ray 12/04/16 0000 Signed Impressions: Service Date/Time: November 10:42 - CONCLUSION: Unremarkable bowel gas pattern. Ronald Rao MD Chest X-Ray 11/20/16 0000 Signed Impressions: Service Date/Time: November 17:08 - CONCLUSION: 1. No acute abnormality or significant interval change. Sukhi Stevens MD Pelvis X-Ray 11/07/16 1355 Signed Impressions: Service Date/Time: Monday, November 07, 2016 13:34 - CONCLUSION: No acute disease. Behzad Finch Jr., MD Objective Remarks GENERAL: Alert, oriented 3, NAD. SKIN: Warm and dry. HEAD: Normocephalic. EYES: No scleral icterus. No injection or drainage. NECK: Supple, trachea midline. No JVD or lymphadenopathy. CARDIOVASCULAR: Regular rate and rhythm without murmurs, gallops, or rubs. RESPIRATORY: Breath sounds equal bilaterally. No accessory muscle use. GASTROINTESTINAL: Abdomen soft, non-tender, nondistended. MUSCULOSKELETAL: No cyanosis, or edema. Fracture boot in place on RLE and dressing on the left lower ext. BACK: Nontender without obvious deformity. No CVA tenderness. Procedures 1.s/p I&D with ex fix application bilateral tibias s/p wound vac application left tibia 2.With the assistance of RN, under sterile technique the avulsed skin of the right middle finger was clipped. No bleeding noted. Patient gave consent 3.Open reduction internal fixation of right distal tibia and fibula fractures Nonoperative treatment left tibial plateau fracture Irrigation and debridement of left tibia shaft fracture, removal external fixation, soleus muscle rotational flap, intramedullary nail fixation left tibia , application of wound VAC dressing 4.11/13 Irrigation and debridement of left tibia, application wound VAC dressing 5. 8 Irrigation and debridement of left open tibia fracture with application of wound VAC dressing 6. 8 wound vac change at the bedside 7. 8 wound vac change at the bedside 8. 8 wound vac change at the bedside 9. 8 I&D left tibia, application of wound VAC dressing and application of AlloMax allograft dermal matrix 10. 01/09 Removal of external fixation right lower extremity, irrigation debridement of left leg, split-thickness skin graft left leg, application wound VAC dressing A/P Problem List: (1) Fracture of tibia, left, open ICD Code: S82.202B - Unspecified fracture of shaft of left tibia, initial encounter for open fracture type I or II Status: Acute (2) Fracture of tibia, right, open ICD Code: S82.201B - Unspecified fracture of shaft of right tibia, initial encounter for open fracture type I or II Status: Acute (3) Hypotension ICD Code: I95.9 - Hypotension, unspecified Status: Acute (4) Right shoulder pain ICD Code: M25.511 - Pain in right shoulder Assessment and Plan Mr. Donohue is a 61 year old male who was brought to the hospital on 11/07/2016 as a trauma alert. 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 Patient's sustained severe bilateral leg pain. Imaging studies indicated bilateral tibial and fibular fractures. Patient has undergone multiple orthopedic surgical interventions. Bilateral open tibia-fibula fractures Left tibial plateau fracture MRSA in wound- possibly deep infection. - Open fractures have been surgically repaired, right side has external fixation - s/p Removal of external fixation right lower extremity, irrigation debridement of left leg, split-thickness skin graft left leg, application wound VAC dressing on 01/09 - left tibial plateau fracture treated nonoperatively - continue with pain control. - management per ortho: LLE: -50%WB for transfers only -Daily dressing changes with bacitracin, Adaptic, 4 x 4's and ABDs with Raul wrap -daily dressing changes of harvest site. change ABD only. leave xeroform in place. RLE: -NWB -fx boot at all times except for PT -PT to work on ankle ROM -daily dressing changes of pin sites with xeroform/4x4/raul - wound culture ( leg) 12/23 positive for MRSA - on Vanco- plan for six weeks from the starting date which was likely 2016. - monitor CBC/ CMP weekly. - Plastic surgery consulted for exposed tendon on the LLE. Acute blood loss anemia - Related to trauma vs post op blood loss - Status post transfusion of 2 units of packed red blood cells in 11/12/16. - on iron supplementation daily. - hemoglobin stable - monitor CBC as indicated Coronary artery disease with h/o previous CABG - Appears stable. Patient is asymptomatic. - Continue propranolol 10 mg every 12 hours and pravastatin 80 mg daily at bedtime - ASA 81mg daily Hypertension - Currently normotensive. - If necessary we'll consider calcium channel gil Alcohol abuse Tobacco abuse - Continue with daily thiamine and folic acid - Tobacco, Alcohol cessation recommended Chronic essential tremor - Continue Propranolol Full code. Lovenox. Problem Qualifiers (1) Fracture of tibia, left, open: (2) Fracture of tibia, right, open: (3) Hypotension: (4) Right shoulder pain: Qualified Codes: M25.511 - Pain in right shoulder; G89.29 - Other chronic pain Neva Owens DO Jan 19, 2017 09:08
[2017-01-19 12:00] VITALS: BP 131/56; PULSE 78; RESP 18; TEMP 97.8; O2SAT 98
[2017-01-19] MEDS: FERROUS SULFATE 325 MG (65 MG ELEMENTAL IRON) TAB PO SCH ×2 (12:07→17:37)
[2017-01-19 16:00] VITALS: BP 139/70; PULSE 66; RESP 18; TEMP 97.9; O2SAT 98
[2017-01-19 19:46] VITALS: BP 134/67; PULSE 79; RESP 19; TEMP 96.7; O2SAT 98
[2017-01-19] MEDS: traZODone HCL 100 MG TAB PO SCH (20:41)
[2017-01-19] MEDS: PRAVASTATIN SOD 80 MG TAB PO SCH (20:41)
[2017-01-19] MEDS: MAGNESIUM HYDROXIDE SUSP 30 ML CUP PO SCH (20:41)
[2017-01-19] MEDS: LIDOCAINE HCL 5% PATCH T-DERMAL SCH (20:42)
[2017-01-20] MEDS: VANCOMYCIN 1,500 MG/NS 500 ML IV SCH ×4 (04:05→16:39)
[2017-01-20] MEDS: MORPHINE SULFATE 30 MG CONTROLLED RELEASE TAB PO SCH ×3 (04:07→20:45)
[2017-01-20] MEDS: ACETAMINOPHEN/HYDROcodone 325 MG/10 MG TAB PO PRN ×4 (04:08→20:45)
--- NOTE | 2017-01-20 07:46 | HHI.PR ---
Subjective Remarks Follow-up for a trauma patient with bilateral lower extremity fractures. Patient is currently doing well. No acute concerns. Wound VAC discontinued yesterday. Objective Vitals Vital Signs Date Time Temp Pulse Resp B/P (MAP) Pulse Ox O2 Delivery O2 Flow Rate FiO2 01/19/17 19:46 96.7 79 19 134/67 (89) 98 01/19/17 16:00 97.9 66 18 139/70 (93) 98 01/19/17 12:00 97.8 78 18 131/56 (81) 98 01/19/17 08:00 96.2 73 18 117/76 (90) 97 I/O 01/19/17 01/19/17 01/19/17 01/20/17 01/20/17 01/20/17 07:00 15:00 23:00 07:00 15:00 23:00 Intake Total 480 ml 720 ml 1218 ml 360 ml Output Total 500 ml 1100 ml Balance -20 ml 720 ml 1218 ml -740 ml Intake Oral 480 ml 720 ml 720 ml 360 ml IV Total 498 ml Output Urine Total 500 ml 1100 ml # Voids 3 3 # Bowel Movements 1 1 1 1 Result Diagram: 01/17/17 0742 01/19/17 0749 Imaging Last Impressions Ankle X-Ray 01/09/17 0000 Signed Impressions: Service Date/Time: Monday, January 09, 2017 12:59 - CONCLUSION: Fluoroscopic images during placement of screws along the distal tibia and single long screw along the distal fibula. Fractures are again seen.. Jac Gonzales MD Tibia/Fibula X-Ray 01/01/17 0000 Signed Impressions: Service Date/Time: December 09:33 - CONCLUSION: There are no complications. Paul Fuentes MD Knee X-Ray 01/01/17 0000 Signed Impressions: Service Date/Time: December 09:37 - CONCLUSION: Lateral tibial plateau fracture without involvement of the articulating surface. Paul Fuentes MD Foot X-Ray 12/27/16 0000 Signed Impressions: Service Date/Time: Tuesday, December 27, 2016 16:50 - CONCLUSION: Distal tibia and fibula fractures with internal fixation hardware. Samir Massey MD Gall Bladder Ultrasound 12/05/16 0000 Signed Impressions: Service Date/Time: Monday, December 05, 2016 08:38 - CONCLUSION: Unremarkable exam. Gallbladder is within normal limits with no evidence of cholelithiasis. Ronald Rao MD Abdomen X-Ray 12/04/16 0000 Signed Impressions: Service Date/Time: , December 04, 2016 10:42 - CONCLUSION: Unremarkable bowel gas pattern. Ronald Rao MD Chest X-Ray 11/20/16 0000 Signed Impressions: Service Date/Time: November 17:08 - CONCLUSION: 1. No acute abnormality or significant interval change. Sukhi Stevens MD Pelvis X-Ray 11/07/16 1355 Signed Impressions: Service Date/Time: Monday, November 07, 2016 13:34 - CONCLUSION: No acute disease. Behzad Finch Jr., MD Objective Remarks GENERAL: Alert, oriented 3, NAD. SKIN: Warm and dry. HEAD: Normocephalic. EYES: No scleral icterus. No injection or drainage. NECK: Supple, trachea midline. No JVD or lymphadenopathy. CARDIOVASCULAR: Regular rate and rhythm without murmurs, gallops, or rubs. RESPIRATORY: Breath sounds equal bilaterally. No accessory muscle use. GASTROINTESTINAL: Abdomen soft, non-tender, nondistended. MUSCULOSKELETAL: No cyanosis, or edema. Fracture boot in place on RLE and dressing on the left lower ext. BACK: Nontender without obvious deformity. No CVA tenderness. Procedures 1.s/p I&D with ex fix application bilateral tibias s/p wound vac application left tibia 2.With the assistance of RN, under sterile technique the avulsed skin of the right middle finger was clipped. No bleeding noted. Patient gave consent 3.Open reduction internal fixation of right distal tibia and fibula fractures Nonoperative treatment left tibial plateau fracture Irrigation and debridement of left tibia shaft fracture, removal external fixation, soleus muscle rotational flap, intramedullary nail fixation left tibia , application of wound VAC dressing 4.7 Irrigation and debridement of left tibia, application wound VAC dressing 5. 8 Irrigation and debridement of left open tibia fracture with application of wound VAC dressing 6. 8 wound vac change at the bedside 7. 8 wound vac change at the bedside 8. 8 wound vac change at the bedside 9. 8 I&D left tibia, application of wound VAC dressing and application of AlloMax allograft dermal matrix 01/09 Removal of external fixation right lower extremity, irrigation debridement of left leg, split-thickness skin graft left leg, application wound VAC dressing A/P Problem List: (1) Fracture of tibia, left, open ICD Code: S82.202B - Unspecified fracture of shaft of left tibia, initial encounter for open fracture type I or II Status: Acute (2) Fracture of tibia, right, open ICD Code: S82.201B - Unspecified fracture of shaft of right tibia, initial encounter for open fracture type I or II Status: Acute (3) Hypotension ICD Code: I95.9 - Hypotension, unspecified Status: Acute (4) Right shoulder pain ICD Code: M25.511 - Pain in right shoulder Assessment and Plan Mr. Donohue is a 61 year old male who was brought to the hospital on 11/07/2016 as a trauma alert. 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 Patient's sustained severe bilateral leg pain. Imaging studies indicated bilateral tibial and fibular fractures. Patient has undergone multiple orthopedic surgical interventions. Bilateral open tibia-fibula fractures Left tibial plateau fracture MRSA in wound- possibly deep infection. - Open fractures have been surgically repaired, right side has external fixation - s/p Removal of external fixation right lower extremity, irrigation debridement of left leg, split-thickness skin graft left leg, application wound VAC dressing on 01/09 - Wound vac discontinued on 01/19/2017. - left tibial plateau fracture treated nonoperatively - continue with pain control. - management per ortho: LLE: -50%WB for transfers only -Daily dressing changes with bacitracin, Adaptic, 4 x 4's and ABDs with Raul wrap -daily dressing changes of harvest site. change ABD only. leave xeroform in place. RLE: -NWB -fx boot at all times except for PT -PT to work on ankle ROM -daily dressing changes of pin sites with xeroform/4x4/raul - wound culture ( leg) 12/23 positive for MRSA - on Vanco- plan for six weeks from the starting date which was likely 2016. - monitor CBC/ CMP weekly. - Plastic surgery consulted for exposed tendon on the LLE. Plastic surgery consult pending. Acute blood loss anemia - Related to trauma vs post op blood loss - Status post transfusion of 2 units of packed red blood cells in 11/12/16. - on iron supplementation daily. - hemoglobin stable - monitor CBC as indicated Coronary artery disease with h/o previous CABG - Appears stable. Patient is asymptomatic. - Continue propranolol 10 mg every 12 hours and pravastatin 80 mg daily at bedtime - ASA 81mg daily Hypertension - Currently normotensive. - If necessary we'll consider calcium channel gil Alcohol abuse Tobacco abuse - Continue with daily thiamine and folic acid - Tobacco, Alcohol cessation recommended Chronic essential tremor - Continue Propranolol Full code. Lovenox. Problem Qualifiers (1) Fracture of tibia, left, open: (2) Fracture of tibia, right, open: (3) Hypotension: (4) Right shoulder pain: Qualified Codes: M25.511 - Pain in right shoulder; G89.29 - Other chronic pain Neva Owens DO Jan 20, 2017 7:46 am
[2017-01-20 08:00] VITALS: BP 128/72; PULSE 71; RESP 18; TEMP 98.6; O2SAT 97
[2017-01-20] MEDS: GABAPENTIN 300 MG CAP PO SCH ×3 (08:11→16:39)
[2017-01-20] MEDS: ASPIRIN 81 MG CHEW TAB CHEW SCH (08:11)
[2017-01-20] MEDS: ENOXAPARIN SODIUM 40 MG/0.4 ML SYRINGE SQ SCH (08:11)
[2017-01-20] MEDS: CALCIUM CARBONATE 500 MG CHEWABLE TAB CHEW SCH ×2 (08:11→20:45)
[2017-01-20] MEDS: LACTOBACILLUS ACIDOPHILUS TAB PO SCH ×3 (08:11→16:39)
[2017-01-20] MEDS: CALCIUM/VITAMIN D 250 MG/125 U TAB PO SCH ×3 (08:12→16:39)
[2017-01-20] MEDS: PANTOPRAZOLE SOD 40 MG DELAYED RELEASE TAB PO SCH (08:12)
[2017-01-20] MEDS: PROPRANOLOL HCL 10 MG TAB PO SCH ×2 (08:12→20:45)
[2017-01-20] MEDS: DOCUSATE SODIUM 50 MG/SENNA 8.6 MG TAB PO SCH ×2 (08:12→20:46)
[2017-01-20] MEDS: ASCORBIC ACID 500 MG TAB PO SCH ×2 (08:12→20:45)
[2017-01-20] MEDS: THIAMINE HCL 100 MG TAB PO SCH (08:12)
[2017-01-20] MEDS: FOLIC ACID 1 MG TAB PO SCH (08:12)
[2017-01-20] MEDS: FLUTICASONE PROPIONATE 50 MCG/ACT 16 GM NASAL SPRAY NASAL SCH ×2 (08:14→20:46)
[2017-01-20] MEDS: SODIUM CHLORIDE 0.9% FLUSH 10 ML FLUSH IV FLUSH SCH ×2 (08:14→20:46)
[2017-01-20] MEDS: REMOVE OLD LIDOCAINE PATCH T-DERMAL SCH (08:15)
[2017-01-20] MEDS: NEOMYCIN/POLYMYXIN/BACITRACIN OINT 15 GM TUBE TOPICAL SCH (08:15)
[2017-01-20] MEDS: LACTATED RINGER'S 1000 ML INJ 1,000 ML IV SCH ×2 (09:34→19:34)
[2017-01-20 12:00] VITALS: BP 111/62; PULSE 61; RESP 18; TEMP 97; O2SAT 98
[2017-01-20] MEDS: FERROUS SULFATE 325 MG (65 MG ELEMENTAL IRON) TAB PO SCH ×2 (13:01→16:39)
[2017-01-20 16:15] VITALS: BP 126/71; PULSE 74; RESP 18; TEMP 95.9; O2SAT 96
[2017-01-20 20:32] VITALS: BP 120/66; PULSE 65; RESP 18; TEMP 96.4; O2SAT 99
[2017-01-20] MEDS: PRAVASTATIN SOD 80 MG TAB PO SCH (20:45)
[2017-01-20] MEDS: diphenhydrAMINE HCL 50 MG CAP PO PRN (20:45)
[2017-01-20] MEDS: traZODone HCL 100 MG TAB PO SCH (20:45)
[2017-01-20] MEDS: MAGNESIUM HYDROXIDE SUSP 30 ML CUP PO SCH (20:46)
[2017-01-20] MEDS: LIDOCAINE HCL 5% PATCH T-DERMAL SCH (20:46)
[2017-01-21] MEDS: ACETAMINOPHEN/HYDROcodone 325 MG/10 MG TAB PO PRN ×5 (01:06→21:59)
[2017-01-21] MEDS ORDERED: PHARMACY ORDERED LAB ONE (03:45)
[2017-01-21] MEDS: LACTATED RINGER'S 1000 ML INJ 1,000 ML IV SCH ×3 (03:57→22:49)
[2017-01-21] MEDS: VANCOMYCIN 1,500 MG/NS 500 ML IV SCH ×4 (04:14→17:23)
[2017-01-21] MEDS: MORPHINE SULFATE 30 MG CONTROLLED RELEASE TAB PO SCH ×3 (06:05→21:59)
[2017-01-21 08:00] VITALS: BP 94/52; PULSE 60; RESP 18; TEMP 97.7; O2SAT 97
[2017-01-21] MEDS: NEOMYCIN/POLYMYXIN/BACITRACIN OINT 15 GM TUBE TOPICAL SCH (09:00)
[2017-01-21] MEDS: SODIUM CHLORIDE 0.9% FLUSH 10 ML FLUSH IV FLUSH SCH ×2 (09:00→21:59)
[2017-01-21] MEDS: PROPRANOLOL HCL 10 MG TAB PO SCH ×2 (09:00→21:59)
[2017-01-21] MEDS: FLUTICASONE PROPIONATE 50 MCG/ACT 16 GM NASAL SPRAY NASAL SCH ×2 (09:00→22:00)
[2017-01-21] MEDS: REMOVE OLD LIDOCAINE PATCH T-DERMAL SCH (09:00)
[2017-01-21] MEDS: ASCORBIC ACID 500 MG TAB PO SCH ×2 (09:06→21:59)
[2017-01-21] MEDS: CALCIUM CARBONATE 500 MG CHEWABLE TAB CHEW SCH ×2 (09:06→21:59)
[2017-01-21] MEDS: ENOXAPARIN SODIUM 40 MG/0.4 ML SYRINGE SQ SCH (09:06)
[2017-01-21] MEDS: DOCUSATE SODIUM 50 MG/SENNA 8.6 MG TAB PO SCH ×2 (09:06→21:59)
[2017-01-21] MEDS: FOLIC ACID 1 MG TAB PO SCH (09:06)
[2017-01-21] MEDS: GABAPENTIN 300 MG CAP PO SCH ×3 (09:06→17:22)
[2017-01-21] MEDS: CALCIUM/VITAMIN D 250 MG/125 U TAB PO SCH ×3 (09:06→17:22)
[2017-01-21] MEDS: LACTOBACILLUS ACIDOPHILUS TAB PO SCH ×3 (09:06→17:22)
[2017-01-21] MEDS: THIAMINE HCL 100 MG TAB PO SCH (09:06)
[2017-01-21] MEDS: PANTOPRAZOLE SOD 40 MG DELAYED RELEASE TAB PO SCH (09:07)
[2017-01-21] MEDS: ASPIRIN 81 MG CHEW TAB CHEW SCH (09:07)
[2017-01-21 12:00] VITALS: BP 142/68; PULSE 77; RESP 17; TEMP 97.1; O2SAT 98
[2017-01-21] MEDS: FERROUS SULFATE 325 MG (65 MG ELEMENTAL IRON) TAB PO SCH ×2 (13:48→17:22)
--- NOTE | 2017-01-21 14:50 | MB ---
cc: SEBASTIAN FERRER M.D. DATE OF CONSULTATION: 01/21/[address] Salbador Mathias. REASON FOR CONSULTATION Open wound of left leg. HISTORY OF PRESENT ILLNESS The patient is a 62-year-old male who was admitted on 11/07/2016 as a trauma alert. He had bilateral open comminuted tibia and fibular fractures. 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 The patient presented with bilateral open tibia fractures. The patient has been treated extensively and recently underwent a soleus flap to his left leg along with a split-thickness skin graft. The skin graft was placed on 01/09/2017. At the present time the wounds are almost completely covered, although some of the anterior tibialis tendon is exposed and there was also a small area on the medial surface which has some deep tissue exposed. Consultation is requested regarding evaluation and treatment of these wounds. ALLERGIES The patient has no known food or drug allergies. PAST MEDICAL HISTORY 1. He has a history of hearing problems. 2. Right-sided CVA. 3. Coronary artery disease. 4. History of a CABG. 5. History of hypertension. 6. Diabetes. 7. History of multidrug resistant organisms from 12/25/2016. SOCIAL HISTORY He drinks caffeine and prior to admission he smoked one pack of cigarettes per day. The patient does consume alcohol prior to admission and was an everyday smoker. MEDICATION Ambulatory medications are listed on the chart. PHYSICAL EXAMINATION GENERAL: On examination the patient is lying comfortably in bed. VITAL SIGNS: Temperature is 97.7, pulse of 60. Blood pressure is 94/52 with a mean of 66. His pulse oximetry is 97 on room air. HEENT: His extraocular muscles are intact. His pupils are equal round and reactive to light. LUNGS: The lungs are clear. HEART: Regular rate and rhythm. EXTREMITIES: Examination of his extremities reveals a well-healed soleus flap. The graft shows almost complete take, there was some retained giuseppe which have not been removed. There is an area measuring 2.5 cm x 1.5 cm at the distal end of the wound which shows exposed tendon. In addition there is an area medially which does not appear to be covered with subcutaneous tissue or muscle but no bone is visible. There is good circulation to the foot and all the surrounding tissues appear to be viable. There is mild amount of ankle swelling. IMPRESSION The patient has an open wound of the left lower extremity which is almost completely closed. There is an area of exposed tendon. PLAN After discussion with the patient, the patient will be scheduled for debridement and placement of an allograft, specifically EpiFix if available in order to help the wound regenerate and cover the tendon. The patient understands and accepts the risks and complications of surgery. MD MANISHA Watkins/TOBIAS /1:22 PM /2:26 PM KARI
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
[2017-01-21 16:00] VITALS: BP 134/58; PULSE 63; RESP 17; TEMP 97.7; O2SAT 98
[2017-01-21 19:00] VITALS: BP 128/77; PULSE 75; RESP 17; TEMP 96.9; O2SAT 97
--- NOTE | 2017-01-21 20:47 | PD.PLAS.PN ---
Vital Signs Date Time Temp Pulse Resp B/P (MAP) Pulse Ox O2 Delivery O2 Flow Rate FiO2 01/21/17 16:00 97.7 63 17 134/58 (83) 98 01/21/17 12:00 97.1 77 17 142/68 (92) 98 01/21/17 08:00 97.7 60 18 94/52 (66) 97 I/O 01/20/17 01/20/17 01/20/17 01/21/17 01/21/17 01/21/17 07:00 15:00 23:00 07:00 15:00 23:00 Intake Total 360 ml 720 ml 720 ml 480 ml 800 ml Output Total 1100 ml 500 ml Balance -740 ml 720 ml 720 ml 480 ml 300 ml Intake Oral 360 ml 720 ml 720 ml 480 ml 800 ml Output Urine Total 1100 ml 500 ml # Voids 4 2 3 3 # Bowel Movements 1 1 1 1 1 Laboratory Tests Test 01/21/17 03:45 01/21/17 07:36 Vancomycin Level Trough 18.9 Creatinine 0.68 Estimat Glomerular Filtration Rate 118 Date/Time Source Procedure Growth Status 11/19/16 13:45 Blood Peripheral Aerobic Blood Culture - Final NO GROWTH IN 5 DAYS Complete 11/19/16 13:45 Blood Peripheral Anaerobic Blood Culture - Final NO GROWTH IN 5 DAYS Complete 01/20/17 16:30 Wound Leg Gram Stain - Final Resulted 01/20/17 16:30 Wound Leg Wound Culture - Preliminary NO GROWTH IN 24 HOURS. Resulted Result Diagram: 01/17/17 0742 01/21/17 0736 Plan Surgery postponed 24 hours to obtain allograft. Denisha Resendez MD Jan 21, 2017 20:47
[2017-01-21] MEDS: traZODone HCL 100 MG TAB PO SCH (21:59)
[2017-01-21] MEDS: PRAVASTATIN SOD 80 MG TAB PO SCH (21:59)
[2017-01-21] MEDS: MAGNESIUM HYDROXIDE SUSP 30 ML CUP PO SCH (21:59)
[2017-01-21] MEDS: LIDOCAINE HCL 5% PATCH T-DERMAL SCH (22:00)
[2017-01-22] MEDS: VANCOMYCIN 1,500 MG/NS 500 ML IV SCH ×4 (05:24→17:41)
[2017-01-22] MEDS: MORPHINE SULFATE 30 MG CONTROLLED RELEASE TAB PO SCH ×3 (05:24→22:30)
[2017-01-22] MEDS: ACETAMINOPHEN/HYDROcodone 325 MG/10 MG TAB PO PRN ×4 (05:24→20:10)
[2017-01-22 08:00] VITALS: BP 106/62; PULSE 77; RESP 18; TEMP 97.3; O2SAT 98
[2017-01-22] MEDS: SILVER SULFADIAZINE 1% CR 50 GM JAR TOP SCH (08:15)
[2017-01-22] MEDS: ENOXAPARIN SODIUM 40 MG/0.4 ML SYRINGE SQ SCH (08:15)
[2017-01-22] MEDS: PANTOPRAZOLE SOD 40 MG DELAYED RELEASE TAB PO SCH (08:15)
[2017-01-22] MEDS: GABAPENTIN 300 MG CAP PO SCH ×3 (08:16→17:41)
[2017-01-22] MEDS: LACTOBACILLUS ACIDOPHILUS TAB PO SCH ×3 (08:16→17:41)
[2017-01-22] MEDS: FOLIC ACID 1 MG TAB PO SCH (08:16)
[2017-01-22] MEDS: CALCIUM/VITAMIN D 250 MG/125 U TAB PO SCH ×3 (08:16→17:41)
[2017-01-22] MEDS: ASCORBIC ACID 500 MG TAB PO SCH ×2 (08:16→20:10)
[2017-01-22] MEDS: THIAMINE HCL 100 MG TAB PO SCH (08:16)
[2017-01-22] MEDS: CALCIUM CARBONATE 500 MG CHEWABLE TAB CHEW SCH ×2 (08:16→20:10)
[2017-01-22] MEDS: ASPIRIN 81 MG CHEW TAB CHEW SCH (08:16)
[2017-01-22] MEDS: PROPRANOLOL HCL 10 MG TAB PO SCH ×2 (08:17→20:09)
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
[2017-01-22] MEDS: SODIUM CHLORIDE 0.9% FLUSH 10 ML FLUSH IV FLUSH SCH ×2 (09:00→20:10)
[2017-01-22] MEDS: REMOVE OLD LIDOCAINE PATCH T-DERMAL SCH (09:00)
[2017-01-22] MEDS: DOCUSATE SODIUM 50 MG/SENNA 8.6 MG TAB PO SCH ×2 (09:00→20:09)
[2017-01-22] MEDS: NEOMYCIN/POLYMYXIN/BACITRACIN OINT 15 GM TUBE TOPICAL SCH (09:00)
[2017-01-22] MEDS: FLUTICASONE PROPIONATE 50 MCG/ACT 16 GM NASAL SPRAY NASAL SCH ×2 (09:00→20:08)
--- NOTE | 2017-01-22 09:34 | RADRPT ---
EXAM DATE/TIME: 01/22/2017 09:18 [facility] COMPARISON: No previous studies available for comparison. INDICATIONS : Left tibia pain MEDICAL HISTORY : None. SURGICAL HISTORY : None. ENCOUNTER: Subsequent ACUITY: 1 week PAIN SCORE: 8/10 LOCATION: Left Tibia FINDINGS: Examination reveals IM mariano fixation of left tibial fracture. Hardware is intact. Alignment is anatomi c. There is adequate reduction of multiple fibula fractures. Multiple skin giuseppe are present associ ated with mid calf and orellana lacerations. Moderate arthritic changes are noted in the knee and ankle. CONCLUSION: Satisfactory postop appearance Jonathan Amezquita MD on January 22, 2017 at 9:31 Board Certified Radiologist. This report was verified electronically.
--- NOTE | 2017-01-22 09:35 | RADRPT ---
EXAM DATE/TIME: 01/22/2017 09:20 [facility] COMPARISON: TIBIA/FIBULA RIGHT (AP/LAT), January 01, 2017, 9:34. ANKLE RIGHT (1VW), January 09, 2017, 12:59. INDICATIONS : Right ankle pain MEDICAL HISTORY : None. SURGICAL HISTORY : Bilateral low extermity ENCOUNTER: Subsequent ACUITY: 1 week PAIN SCORE: 8/10 LOCATION: Right Ankle FINDINGS: Examination reveals a long cortical screw transfixing the distal fibula with good reduction of fragme nts and oriental orthodox of anatomic alignment. 2 cortical screws traverse an oblique distal tibial fractu re, also with satisfactory reduction. The ankle mortise is congruent. There's been removal of externa l fixator. CONCLUSION: Satisfactory postop appearance. Jonathan Amezquita MD on January 22, 2017 at 9:32 Board Certified Radiologist. This report was verified electronically.
[2017-01-22] MEDS: LACTATED RINGER'S 1000 ML INJ 1,000 ML IV SCH ×2 (11:34→21:34)
[2017-01-22 12:00] VITALS: BP 107/70; PULSE 66; RESP 18; TEMP 97.4; O2SAT 94
[2017-01-22] MEDS: FERROUS SULFATE 325 MG (65 MG ELEMENTAL IRON) TAB PO SCH ×2 (12:58→17:41)
[2017-01-22 16:00] VITALS: BP 135/76; PULSE 74; RESP 18; TEMP 98; O2SAT 95
[2017-01-22] MEDS: diphenhydrAMINE HCL 50 MG CAP PO PRN (19:00)
[2017-01-22 20:00] VITALS: BP 127/69; PULSE 70; RESP 16; TEMP 97.4; O2SAT 99
[2017-01-22] MEDS: LIDOCAINE HCL 5% PATCH T-DERMAL SCH (20:07)
[2017-01-22] MEDS: MAGNESIUM HYDROXIDE SUSP 30 ML CUP PO SCH (20:08)
[2017-01-22] MEDS: traZODone HCL 100 MG TAB PO SCH (20:09)
[2017-01-22] MEDS: PRAVASTATIN SOD 80 MG TAB PO SCH (20:10)
[2017-01-23] MEDS: ACETAMINOPHEN/HYDROcodone 325 MG/10 MG TAB PO PRN ×6 (01:17→22:27)
[2017-01-23] MEDS ORDERED: LACTATED RINGER'S 1000 ML IV PRN (04:00)
[2017-01-23] MEDS ORDERED: POVIDONE IODINE 5% (ANTISEPSIS KIT) 4 APPLICATIONS EACH NARE PRN (04:00)
[2017-01-23] MEDS ORDERED: SODIUM CHLORID 0.9% 500 ML IV PRN (04:00)
[2017-01-23] MEDS ORDERED: CHLORHEXIDINE GLUCONATE 2 % 1 PACK (2 CLOTHS) TOPICAL PRN (04:00)
[2017-01-23] MEDS ORDERED: INSULIN HUMAN REGULAR 1,000 UNITS/10 ML VIAL SQ PRN (04:00)
[2017-01-23] MEDS ORDERED: METOPROLOL TARTRATE 25 MG TAB PO PRN (04:00)
[2017-01-23] MEDS: MORPHINE SULFATE 30 MG CONTROLLED RELEASE TAB PO SCH ×3 (06:22→23:50)
--- NOTE | 2017-01-23 06:39 | PD.ORT.PN ---
Subjective Subjective Remarks Pain controlled Doing well Objective Vitals Vital Signs Date Time Temp Pulse Resp B/P (MAP) Pulse Ox O2 Delivery O2 Flow Rate FiO2 01/22/17 20:00 97.4 70 16 127/69 (88) 99 01/22/17 16:00 98.0 74 18 135/76 (95) 95 01/22/17 12:00 97.4 66 18 107/70 (82) 94 01/22/17 08:00 97.3 77 18 106/62 (77) 98 I/O 01/22/17 01/22/17 01/22/17 01/23/17 01/23/17 01/23/17 07:00 15:00 23:00 07:00 15:00 23:00 Intake Total 1655 ml 960 ml 0 ml Output Total 803 ml Balance 852 ml 960 ml 0 ml Intake Oral 1140 ml 960 ml 0 ml IV Total 515 ml Output Urine Total 800 ml Stool Total 3 ml # Voids 2 2 # Bowel Movements 1 Result Diagram: 01/21/17 0736 Imaging Last 24 hours Impressions Pelvis X-Ray 11/07/16 1355 Signed Impressions: Service Date/Time: Monday, November 07, 2016 13:34 - CONCLUSION: No acute disease. Behzad Finch Jr., MD Chest X-Ray 11/07/16 1352 Signed Impressions: Service Date/Time: Monday, November 07, 2016 13:34 - CONCLUSION: No acute disease. Jac Gonzales MD Objective Remarks RLE: +fracture boot. dressings clean and dry LLE: Clean dry dressings intact Dressing of bacitracin and Adaptic applied to skin graft. Soft dressings reapplied with 4 x 4's ABDs and Raul wrap. Assessment & Plan Assessment and Plan 1) Right Open Tibia Fracture s/p exfix revision with ORIF 2) Left Open Tibia Fracture s/p Soleus muscle flap with IMN and removal of exfix 3) left tibia plateau fracture treated nonoperatively 4) s/p STSG left leg LLE: - progress to weightbearing as tolerated -Daily dressing changes with bacitracin, Adaptic, 4 x 4's and ABDs with Raul wrap -daily dressing changes of harvest site. change ABD only. leave xeroform in place. Dr. Resendez for graft over exposed tendon RLE: -NWB -fx boot at all times except for PT -PT to work on ankle ROM -daily dressing changes of pin sites with xeroform/4x4/raul Ronald Hatch Jr. Jan 23, 2017 06:39
[2017-01-23] MEDS: CALCIUM CARBONATE 500 MG CHEWABLE TAB CHEW PRN (07:44)
[2017-01-23] MEDS: CALCIUM/VITAMIN D 250 MG/125 U TAB PO SCH ×3 (07:44→18:00)
[2017-01-23] MEDS: PANTOPRAZOLE SOD 40 MG DELAYED RELEASE TAB PO SCH (07:44)
[2017-01-23] MEDS: LACTOBACILLUS ACIDOPHILUS TAB PO SCH ×3 (07:45→18:00)
[2017-01-23] MEDS: GABAPENTIN 300 MG CAP PO SCH ×3 (07:45→18:00)
[2017-01-23] MEDS: ASPIRIN 81 MG CHEW TAB CHEW SCH (07:45)
[2017-01-23] MEDS: ASCORBIC ACID 500 MG TAB PO SCH ×2 (07:45→20:26)
[2017-01-23] MEDS: THIAMINE HCL 100 MG TAB PO SCH (07:45)
[2017-01-23] MEDS: PROPRANOLOL HCL 10 MG TAB PO SCH ×2 (07:45→20:26)
[2017-01-23] MEDS: FOLIC ACID 1 MG TAB PO SCH (07:46)
[2017-01-23 08:00] VITALS: BP 109/67; PULSE 57; RESP 16; TEMP 96.9; O2SAT 98
[2017-01-23] MEDS: REMOVE OLD LIDOCAINE PATCH T-DERMAL SCH (09:00)
[2017-01-23] MEDS: CALCIUM CARBONATE 500 MG CHEWABLE TAB CHEW SCH ×2 (09:00→20:25)
[2017-01-23] MEDS: FLUTICASONE PROPIONATE 50 MCG/ACT 16 GM NASAL SPRAY NASAL SCH ×2 (09:00→20:26)
[2017-01-23] MEDS: DOCUSATE SODIUM 50 MG/SENNA 8.6 MG TAB PO SCH ×2 (09:00→20:26)
[2017-01-23] MEDS: NEOMYCIN/POLYMYXIN/BACITRACIN OINT 15 GM TUBE TOPICAL SCH (09:00)
[2017-01-23] MEDS: SODIUM CHLORIDE 0.9% FLUSH 10 ML FLUSH IV FLUSH SCH ×2 (09:00→20:27)
[2017-01-23] MEDS: SILVER SULFADIAZINE 1% CR 50 GM JAR TOP SCH (09:00)
[2017-01-23] MEDS ORDERED: ACETAMINOPHEN 1000 MG/100 ML 100 ML IV ONE (10:58)
[2017-01-23] MEDS ORDERED: FAMOTIDINE 20 MG/2 ML VIAL ONE (10:58)
[2017-01-23] MEDS ORDERED: GENTAMICIN SULFATE 80 MG/2 ML VIAL ONE (11:09)
[2017-01-23] MEDS: VANCOMYCIN 1,500 MG/NS 500 ML IV SCH ×4 (11:17→23:50)
[2017-01-23] MEDS ORDERED: ONDANSETRON HCL 4 MG/2 ML VIAL IV PUSH ONE (12:00)
[2017-01-23] MEDS ORDERED: PROPOFOL 200 MG/20 ML AMP IV ONE (12:00)
[2017-01-23] MEDS ORDERED: LIDOCAINE HCL 1% PF 5 ML AMPULE OTHER ONE (12:00)
[2017-01-23] MEDS ORDERED: ePHEDrine/NS 25 MG/5 ML SYR IV ONE (12:00)
[2017-01-23] MEDS ORDERED: DEXAMETHASONE SOD PHOS 4 MG/ML VIAL IV ONE (12:00)
--- NOTE | 2017-01-23 12:15 | HHI.PR ---
Immediate Post Op Note Procedure Date: Jan 23, 2017 Pre Op Diagnosis: (1) Fracture of tibia, left, open Post Op Diagnosis: (1) Fracture of tibia, left, open Surgeon: Denisha Resendez Pourer Crane Ladle(s): None Procedure: Excisional debridement of left leg wound. Application of allograft. Estimated blood loss: None Anesthesia: General Drains: None Patient to: PACU Patient Condition: Good Implant/Devices: SEE IMPLANT LOG (if applicable) Date/Time of Procedure: SEE SURGICAL CARE RECORD Denisha Resendez MD Jan 23, 2017 12:14
[2017-01-23] MEDS ORDERED: DO NOT ADM ANY ANTICOAGULANT DRUGS PRN (12:16)
[2017-01-23] MEDS ORDERED: NITROGLYCERIN 0.4 MG SL 25 TABS/BTL SL ONE (12:34)
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
--- NOTE | 2017-01-23 14:06 | HHI.PR ---
Subjective Remarks Follow-up visit bilateral leg trauma, bilateral lower extremity fractures previously on external fixation of the right lower extremity, has been removed , patient is status post excisional debridement of left leg wound and application of allograft. Patient seen and examined today. Sitting up in his wheelchair and rolling around the unit. He is postop for allograft placement. Patient states he is doing well. Complaints of constant pain, sharp right lower extremity, states it's more than the usual, unable to tell what is relieving the pain or what worsens the pain. Otherwise, denies SOB/ dyspnea. Denies chest pain, palpitations, headaches, dizziness. Denies fevers, chills, n/ v/d. Denies dysuria. Objective Vitals Vital Signs Date Time Temp Pulse Resp B/P (MAP) Pulse Ox O2 Delivery O2 Flow Rate FiO2 01/23/17 12:15 97.8 59 13 147/78 (101) 98 Nasal Cannula 2 01/23/17 08:00 96.9 57 16 109/67 (81) 98 01/22/17 20:00 97.4 70 16 127/69 (88) 99 01/22/17 16:00 98.0 74 18 135/76 (95) 95 I/O 01/22/17 01/22/17 01/22/17 01/23/17 01/23/17 01/23/17 07:00 15:00 23:00 07:00 15:00 23:00 Intake Total 1655 ml 960 ml 0 ml Output Total 803 ml Balance 852 ml 960 ml 0 ml Intake Oral 1140 ml 960 ml 0 ml IV Total 515 ml Output Urine Total 800 ml Stool Total 3 ml # Voids 2 2 # Bowel Movements 1 Result Diagram: 01/23/17 0551 Imaging Last Impressions Chest X-Ray 01/23/17 0000 Signed Impressions: Service Date/Time: Monday, January 23, 2017 13:10 - CONCLUSION: 1. No acute cardiopulmonary disease. Sukhi Stevens MD Tibia/Fibula X-Ray 01/22/17 0000 Signed Impressions: Service Date/Time: January 09:18 - CONCLUSION: Satisfactory postop appearance Jonathan Amezquita MD Ankle X-Ray 01/22/17 0000 Signed Impressions: Service Date/Time: January 09:20 - CONCLUSION: Satisfactory postop appearance. Jonathan Amezquita MD Knee X-Ray 01/01/17 0000 Signed Impressions: Service Date/Time: December 09:37 - CONCLUSION: Lateral tibial plateau fracture without involvement of the articulating surface. Paul Fuentes MD Foot X-Ray 12/27/16 0000 Signed Impressions: Service Date/Time: Tuesday, December 27, 2016 16:50 - CONCLUSION: Distal tibia and fibula fractures with internal fixation hardware. Samir Massey MD Gall Bladder Ultrasound 12/05/16 0000 Signed Impressions: Service Date/Time: Monday, December 05, 2016 08:38 - CONCLUSION: Unremarkable exam. Gallbladder is within normal limits with no evidence of cholelithiasis. Ronald Rao MD Abdomen X-Ray 12/04/16 0000 Signed Impressions: Service Date/Time: November 10:42 - CONCLUSION: Unremarkable bowel gas pattern. Ronald Rao MD Pelvis X-Ray 11/07/16 1355 Signed Impressions: Service Date/Time: Monday, November 07, 2016 13:34 - CONCLUSION: No acute disease. Behzad Finch Jr., MD Objective Remarks GENERAL: This is a well-nourished, well-developed patient, in no apparent distress. SKIN: Warm and dry. Wound VAC in place left lower extremity draining small amount serosanguineous. HEENT: Normocephalic. Pupils equal round and reactive. Nose without bleeding. Airway patent. Bilateral tympanic membranes clear, no erythema, or edema in the canal area, no effusion NECK: Trachea midline. No JVD. Supple. CARDIOVASCULAR: Regular rate and rhythm without murmurs, gallops, or rubs. RESPIRATORY: Clear to auscultation. Breath sounds equal bilaterally. No wheezes , rales, or rhonchi. GASTROINTESTINAL: Abdomen soft, non-tender, nondistended. Bowel Sounds normoactive x4. MUSCULOSKELETAL: Extremities without clubbing, cyanosis. Right lower extremity with Raul wrap external fixation in place. Left lower and upper leg with Raul wrap's. Bilateral toes able to wiggle weakly. Pulses palpable. NEUROLOGICAL: Awake and alert. Oriented to time, place, person. No focal neuro deficit. Tremors RUE > LUE. Moves all extremities. Normal speech. Procedures 1.s/p I&D with ex fix application bilateral tibias s/p wound vac application left tibia 2.With the assistance of RN, under sterile technique the avulsed skin of the right middle finger was clipped. No bleeding noted. Patient gave consent 3.Open reduction internal fixation of right distal tibia and fibula fractures Nonoperative treatment left tibial plateau fracture Irrigation and debridement of left tibia shaft fracture, removal external fixation, soleus muscle rotational flap, intramedullary nail fixation left tibia , application of wound VAC dressing 4.11/13 Irrigation and debridement of left tibia, application wound VAC dressing 5. 11/28 Irrigation and debridement of left open tibia fracture with application of wound VAC dressing 6. 12/01 wound vac change at the bedside 7. 12/05 wound vac change at the bedside 8. 12/08 wound vac change at the bedside 9. 12/09 I&D left tibia, application of wound VAC dressing and application of AlloMax allograft dermal matrix 10. 01/09 Removal of external fixation right lower extremity, irrigation debridement of left leg, split-thickness skin graft left leg, application wound VAC dressing 12. 01/23/17 S/P Left Leg debridement and application of allograft A/P Problem List: (1) Fracture of tibia, left, open ICD Code: S82.202B - Unspecified fracture of shaft of left tibia, initial encounter for open fracture type I or II Status: Acute (2) Fracture of tibia, right, open ICD Code: S82.201B - Unspecified fracture of shaft of right tibia, initial encounter for open fracture type I or II Status: Acute (3) Hypotension ICD Code: I95.9 - Hypotension, unspecified Status: Acute (4) Right shoulder pain ICD Code: M25.511 - Pain in right shoulder Assessment and Plan Mr. Donohue is a 61 year old male who was brought to the hospital on 11/07/2016 as a trauma alert. 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 Patient's sustained severe bilateral leg pain. Imaging studies indicated bilateral tibial and fibular fractures. Patient has undergone multiple orthopedic surgical interventions. Bilateral open tibia-fibula fractures Left tibial plateau fracture MRSA in the wound - Open fractures have been surgically repaired, right side has external fixation - s/p Removal of external fixation right lower extremity, irrigation debridement of left leg, split-thickness skin graft left leg, application wound VAC dressing on 01/09 - Wound vac discontinued on 01/19/2017. - left tibial plateau fracture treated nonoperatively - continue with pain control. - management per ortho: LLE: -50%WB for transfers only -Daily dressing changes with bacitracin, Adaptic, 4 x 4's and ABDs with Raul wrap -daily dressing changes of harvest site. change ABD only. leave xeroform in place. RLE: -NWB -fx boot at all times except for PT -PT to work on ankle ROM -daily dressing changes of pin sites with xeroform/4x4/raul - wound culture ( leg) 12/23 positive for MRSA - on Vanco- plan for six weeks from the starting date which was likely 2016. Discussed with nursing end date. - monitor CBC/ CMP weekly. - S/P Left leg debridement, placement of allograft today. Acute blood loss anemia - Related to trauma vs post op blood loss - Status post transfusion of 2 units of packed red blood cells in 11/12/16. - Continue to monitor CBC - Stable for now Coronary artery disease - Seems stable. The patient is asymptomatic. - Continue propranolol and statin - Clonidine PRN Hypertension - RAUL inhibitor held due to hypotension. - Narcotics seem to have a depressive affect on this patient, however blood pressure has much improved after the patient was taken off IV morphine - Propranolol being tolerated by patient Diabetes mellitus type 2 - Blood sugar seems to be stable. - Continue SSI with insulin NovoLog. Continue to monitor Accu-Cheks. - Continue with diabetic diet Alcohol abuse - AST mildly elevated, AST within normal range. - There is no evidence of alcohol withdrawal at this moment. - Alcohol cessation recommended Tobacco abuse - Cessation recommended. Chronic essential tremor - Continue Propranolol with holding parameters, HR <55 Hyponatremia - Sodium trending up on fluid restriction. - Improved Sodium 134 -->138 - Continue to monitor BMP. Leukocytosis - Likely reactive. ID consulted, appreciate recommendations. - Blood cultures negative to date, continue to monitor. Dermatitis. Nystatin. wd care GI prophylaxis: PPI No chemoprophylaxis due to blood loss. Pharmacological prophylaxis on hold per orthopedic surgery Discussed with patient, nursing, Dr. Owens Discharge Planning Plan for discharge pending clearance from orthopedic team. Problem Qualifiers (1) Fracture of tibia, left, open: (2) Fracture of tibia, right, open: (3) Hypotension: (4) Right shoulder pain: Qualified Codes: M25.511 - Pain in right shoulder; G89.29 - Other chronic pain Dion Umana Jan 23, 2017 14:06
--- NOTE | 2017-01-23 14:21 | RADRPT ---
EXAM DATE/TIME: 01/23/2017 13:10 [facility] COMPARISON: CHEST SINGLE AP, November 20, 2016, 17:08. INDICATIONS : Chest pain. MEDICAL HISTORY : Hypertension. Diabetes mellitus type II. SURGICAL HISTORY : CABG. Coronary artery stent. ENCOUNTER: Initial ACUITY: 1 day PAIN SCORE: 0/10 LOCATION: chest FINDINGS: A single view of the chest demonstrates the lungs to be symmetrically aerated without evidence of mas s, infiltrate or effusion. The stable post surgical fusions of prior median sternotomy and cardiac s urgery. The cardiomediastinal contours are unremarkable. Osseous structures are intact. CONCLUSION: 1. No acute cardiopulmonary disease. Sukhi Stevens MD on January 23, 2017 at 14:18 Board Certified Radiologist. This report was verified electronically.
[2017-01-23 16:00] VITALS: BP 114/53; PULSE 77; RESP 16; TEMP 97.4; O2SAT 97
[2017-01-23] MEDS: FERROUS SULFATE 325 MG (65 MG ELEMENTAL IRON) TAB PO SCH (18:00)
[2017-01-23 20:00] VITALS: BP 134/63; PULSE 77; RESP 16; TEMP 96.9; O2SAT 99
[2017-01-23] MEDS: PRAVASTATIN SOD 80 MG TAB PO SCH (20:26)
[2017-01-23] MEDS: traZODone HCL 100 MG TAB PO SCH (20:26)
[2017-01-23] MEDS: MAGNESIUM HYDROXIDE SUSP 30 ML CUP PO SCH (20:26)
[2017-01-23] MEDS: LIDOCAINE HCL 5% PATCH T-DERMAL SCH (20:27)
[2017-01-23] MEDS ORDERED: VANCOMYCIN 1,500 MG/NS 500 ML IV SCH ×2 (23:00)
[2017-01-23] MEDS: diphenhydrAMINE HCL 50 MG CAP PO PRN (23:50)
[2017-01-24] MEDS: ACETAMINOPHEN/HYDROcodone 325 MG/10 MG TAB PO PRN ×5 (03:05→22:47)
--- NOTE | 2017-01-24 05:16 | EKG ---
Date Performed: 01/23/2017 Time Performed: 13:09:08 PTAGE: 62 years EKG: SINUS BRADYCARDIA POSSIBLE RIGHT VENTRICULAR CONDUCTION DELAY BORDERLINE ECG PREVIOUS TRACING : 11/07/2016 15.53 DOCTOR: Loy Gonzales Interpretating Date/Time 01/24/2017 05:08:32
[2017-01-24] MEDS: MORPHINE SULFATE 30 MG CONTROLLED RELEASE TAB PO SCH ×3 (06:12→22:47)
[2017-01-24 07:56] LABS: AUTOMATED NEUTROPHIL # 10.7 TH/MM3 (1.8-7.7); BASOPHIL # 0.1 TH/MM3 (0-0.2); BASOPHIL % 0.4 % (0.0-2.0); HEMATOCRIT 37.4 % (39.0-51.0); HEMO FLAGS DIFF FINAL; LYMPH % 10.8 % (9.0-44.0); LYMPHOCYTE # 1.4 TH/MM3 (1.0-4.8); MEAN CELL VOLUME 90.5 FL (80.0-100.0); MEAN CORPUSCULAR HEMOGLOBIN 28.9 PG (27.0-34.0); MEAN CORPUSCULAR HGB CONC 31.9 % (32.0-36.0); MONO % 7.5 % (0.0-8.0); NEUT % 81.3 % (16.0-70.0); PLATELET COUNT 222 TH/MM3 (150-450); RED BLOOD COUNT 4.13 MIL/MM3 (4.50-5.90); WHITE BLOOD COUNT 13.1 TH/MM3 (4.0-11.0)
[2017-01-24 08:23] LABS: ANION GAP 6 MEQ/L (5-15); AST (GOT) 11 U/L (15-37); BICARBONATE 28.9 MEQ/L (21.0-32.0); BLOOD UREA NITROGEN 7 MG/DL (7-18); CHLORIDE 101 MEQ/L (98-107); GLOMERULAR FILTRATION RATE 118 ML/MIN (>89); SODIUM (NA) 136 MEQ/L (136-145)
[2017-01-24 08:24] LABS: ALT (GPT) 11 U/L (12-78)
[2017-01-24 08:26] LABS: ALKALINE PHOSPHATASE 77 U/L (45-117); TOTAL BILIRUBIN ADULT 0.2 MG/DL (0.2-1.0)
[2017-01-24] MEDS: FOLIC ACID 1 MG TAB PO SCH (08:37)
[2017-01-24] MEDS: THIAMINE HCL 100 MG TAB PO SCH (08:37)
[2017-01-24] MEDS: ASCORBIC ACID 500 MG TAB PO SCH ×2 (08:37→19:47)
[2017-01-24] MEDS: PROPRANOLOL HCL 10 MG TAB PO SCH ×2 (08:38→19:47)
[2017-01-24] MEDS: CALCIUM CARBONATE 500 MG CHEWABLE TAB CHEW SCH ×2 (08:38→19:47)
[2017-01-24] MEDS: CALCIUM/VITAMIN D 250 MG/125 U TAB PO SCH ×3 (08:38→17:16)
[2017-01-24] MEDS: LACTOBACILLUS ACIDOPHILUS TAB PO SCH ×3 (08:38→17:16)
[2017-01-24] MEDS: ASPIRIN 81 MG CHEW TAB CHEW SCH (08:38)
[2017-01-24] MEDS: GABAPENTIN 300 MG CAP PO SCH ×3 (08:38→17:16)
[2017-01-24] MEDS: PANTOPRAZOLE SOD 40 MG DELAYED RELEASE TAB PO SCH (08:38)
[2017-01-24] MEDS: SODIUM CHLORIDE 0.9% FLUSH 10 ML FLUSH IV FLUSH SCH ×2 (08:38→19:47)
[2017-01-24] MEDS: DOCUSATE SODIUM 50 MG/SENNA 8.6 MG TAB PO SCH ×2 (08:39→19:47)
[2017-01-24] MEDS: REMOVE OLD LIDOCAINE PATCH T-DERMAL SCH (08:40)
[2017-01-24] MEDS: NEOMYCIN/POLYMYXIN/BACITRACIN OINT 15 GM TUBE TOPICAL SCH (08:42)
[2017-01-24] MEDS: SILVER SULFADIAZINE 1% CR 50 GM JAR TOP SCH (08:42)
[2017-01-24] MEDS: FLUTICASONE PROPIONATE 50 MCG/ACT 16 GM NASAL SPRAY NASAL SCH ×2 (08:43→19:47)
--- NOTE | 2017-01-24 10:03 | HHI.PR ---
Subjective Remarks Follow-up for a trauma patient with bilateral lower extremity fractures. Patient is currently doing well. He underwent excisional debridement of open wounds of left leg, application of allograft on 01/23/2017. Objective Vitals Vital Signs Date Time Temp Pulse Resp B/P (MAP) Pulse Ox O2 Delivery O2 Flow Rate FiO2 01/23/17 20:00 96.9 77 16 134/63 (86) 99 01/23/17 16:00 97.4 77 16 114/53 (73) 97 01/23/17 13:25 97.8 53 16 152/81 (104) 98 Room Air 01/23/17 13:15 53 16 150/78 (102) 97 Room Air 01/23/17 13:00 52 15 148/79 (102) 96 Room Air 01/23/17 12:45 54 15 149/75 (99) 100 Nasal Cannula 2 01/23/17 12:30 56 14 159/87 (111) 99 Nasal Cannula 2 01/23/17 12:15 97.8 59 13 147/78 (101) 98 Nasal Cannula 2 I/O 01/23/17 01/23/17 01/23/17 01/24/17 01/24/17 01/24/17 07:00 15:00 23:00 07:00 15:00 23:00 Intake Total 0 ml 480 ml 850 ml 515 ml Balance 0 ml 480 ml 850 ml 515 ml Intake Oral 0 ml 480 ml 850 ml IV Total 515 ml # Voids 2 4 2 # Bowel Movements 1 Result Diagram: 01/24/17 0743 01/24/17 0743 Imaging Last Impressions Chest X-Ray 01/23/17 0000 Signed Impressions: Service Date/Time: Monday, January 23, 2017 13:10 - CONCLUSION: 1. No acute cardiopulmonary disease. Sukhi Stevens MD Tibia/Fibula X-Ray 01/22/17 0000 Signed Impressions: Service Date/Time: January 09:18 - CONCLUSION: Satisfactory postop appearance Jonathan Amezquita MD Ankle X-Ray 01/22/17 0000 Signed Impressions: Service Date/Time: January 09:20 - CONCLUSION: Satisfactory postop appearance. Jonathan Amezquita MD Knee X-Ray 01/01/17 0000 Signed Impressions: Service Date/Time: December 09:37 - CONCLUSION: Lateral tibial plateau fracture without involvement of the articulating surface. Paul Fuentes MD Foot X-Ray 12/27/16 0000 Signed Impressions: Service Date/Time: Tuesday, December 27, 2016 16:50 - CONCLUSION: Distal tibia and fibula fractures with internal fixation hardware. Samir Massey MD Gall Bladder Ultrasound 12/05/16 0000 Signed Impressions: Service Date/Time: Monday, December 05, 2016 08:38 - CONCLUSION: Unremarkable exam. Gallbladder is within normal limits with no evidence of cholelithiasis. Ronald Rao MD Abdomen X-Ray 12/04/16 0000 Signed Impressions: Service Date/Time: November 10:42 - CONCLUSION: Unremarkable bowel gas pattern. Ronald Rao MD Pelvis X-Ray 11/07/16 1355 Signed Impressions: Service Date/Time: Monday, November 07, 2016 13:34 - CONCLUSION: No acute disease. Behzad Finch Jr., MD Objective Remarks GENERAL: Alert, oriented 3, NAD. SKIN: Warm and dry. HEAD: Normocephalic. EYES: No scleral icterus. No injection or drainage. NECK: Supple, trachea midline. No JVD or lymphadenopathy. CARDIOVASCULAR: Regular rate and rhythm without murmurs, gallops, or rubs. RESPIRATORY: Breath sounds equal bilaterally. No accessory muscle use. GASTROINTESTINAL: Abdomen soft, non-tender, nondistended. MUSCULOSKELETAL: No cyanosis, or edema. Fracture boot in place on RLE and dressing on the left lower ext. BACK: Nontender without obvious deformity. No CVA tenderness. Procedures 1.s/p I&D with ex fix application bilateral tibias s/p wound vac application left tibia 2.With the assistance of RN, under sterile technique the avulsed skin of the right middle finger was clipped. No bleeding noted. Patient gave consent 3.Open reduction internal fixation of right distal tibia and fibula fractures Nonoperative treatment left tibial plateau fracture Irrigation and debridement of left tibia shaft fracture, removal external fixation, soleus muscle rotational flap, intramedullary nail fixation left tibia , application of wound VAC dressing 4.11/13 Irrigation and debridement of left tibia, application wound VAC dressing 5. 8 Irrigation and debridement of left open tibia fracture with application of wound VAC dressing 6. 12/01 wound vac change at the bedside 7. 12/05 wound vac change at the bedside 8. 12/08 wound vac change at the bedside 9. 12/09 I&D left tibia, application of wound VAC dressing and application of AlloMax allograft dermal matrix 10. 01/09 Removal of external fixation right lower extremity, irrigation debridement of left leg, split-thickness skin graft left leg, application wound VAC dressing 12. 01/23/17 S/P Left Leg debridement and application of allograft A/P Problem List: (1) Fracture of tibia, left, open ICD Code: S82.202B - Unspecified fracture of shaft of left tibia, initial encounter for open fracture type I or II Status: Acute (2) Fracture of tibia, right, open ICD Code: S82.201B - Unspecified fracture of shaft of right tibia, initial encounter for open fracture type I or II Status: Acute (3) Hypotension ICD Code: I95.9 - Hypotension, unspecified Status: Acute (4) Right shoulder pain ICD Code: M25.511 - Pain in right shoulder Assessment and Plan Mr. Donohue is a 61 year old male who was brought to the hospital on 11/07/2016 as a trauma alert. 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 Patient's sustained severe bilateral leg pain. Imaging studies indicated bilateral tibial and fibular fractures. Patient has undergone multiple orthopedic surgical interventions. Bilateral open tibia-fibula fractures Left tibial plateau fracture MRSA in the wound - Open fractures have been surgically repaired, right side has external fixation - s/p Removal of external fixation right lower extremity, irrigation debridement of left leg, split-thickness skin graft left leg, application wound VAC dressing on 01/09 - Wound vac discontinued on 01/19/2017. - left tibial plateau fracture treated nonoperatively - continue with pain control. - management per ortho: LLE: -50%WB for transfers only -Daily dressing changes with bacitracin, Adaptic, 4 x 4's and ABDs with Raul wrap -daily dressing changes of harvest site. change ABD only. leave xeroform in place. RLE: -NWB -fx boot at all times except for PT -PT to work on ankle ROM -daily dressing changes of pin sites with xeroform/4x4/raul - wound culture ( leg) 12/23 positive for MRSA - on Vanco- plan for six weeks from the starting date which was likely 2016. Discussed with nursing end date. - monitor CBC/ CMP weekly. - S/P Left leg debridement, placement of allograft on 01/23/2017. - Per orthopedic surgery, probable surgery on 01/27/2017 due to remove hardware and possible IM nail with iliac cerst bone graft, stem cells. Acute blood loss anemia - Related to trauma vs post op blood loss - Status post transfusion of 2 units of packed red blood cells in 11/12/16. - Continue to monitor CBC - Stable for now Coronary artery disease - Seems stable. The patient is asymptomatic. - Continue propranolol and statin - Clonidine PRN Hypertension - RAUL inhibitor held due to hypotension. - Narcotics seem to have a depressive affect on this patient, however blood pressure has much improved after the patient was taken off IV morphine - Propranolol being tolerated by patient Diabetes mellitus type 2 - Blood sugar seems to be stable. - Continue SSI with insulin NovoLog. Continue to monitor Accu-Cheks. - Continue with diabetic diet Alcohol abuse - AST mildly elevated, AST within normal range. - There is no evidence of alcohol withdrawal at this moment. - Alcohol cessation recommended Tobacco abuse - Cessation recommended. Chronic essential tremor - Continue Propranolol with holding parameters, HR <55 Hyponatremia - Sodium trending up on fluid restriction. - Improved Sodium 134 -->138 - Continue to monitor BMP. Leukocytosis - Likely reactive. ID consulted, appreciate recommendations. - Blood cultures negative to date, continue to monitor. Dermatitis. Nystatin. wound care. GI prophylaxis: PPI No chemoprophylaxis due to blood loss. Problem Qualifiers (1) Fracture of tibia, left, open: (2) Fracture of tibia, right, open: (3) Hypotension: (4) Right shoulder pain: Qualified Codes: M25.511 - Pain in right shoulder; G89.29 - Other chronic pain Neva Owens DO Jan 24, 2017 10:03 am
[2017-01-24 10:29] VITALS: BP 119/69; PULSE 60; RESP 18; TEMP 96.5; O2SAT 99
[2017-01-24 12:00] VITALS: BP 123/70; PULSE 64; RESP 19; TEMP 96.7; O2SAT 97
[2017-01-24] MEDS: VANCOMYCIN 1,500 MG/NS 500 ML IV SCH ×4 (12:17→22:51)
[2017-01-24] MEDS: FERROUS SULFATE 325 MG (65 MG ELEMENTAL IRON) TAB PO SCH ×2 (12:18→17:16)
[2017-01-24] MEDS: diphenhydrAMINE HCL 50 MG CAP PO PRN ×2 (12:25→22:47)
[2017-01-24] MEDS: LACTATED RINGER'S 1000 ML INJ 1,000 ML IV SCH ×2 (13:34→22:51)
[2017-01-24 16:00] VITALS: BP 116/62; PULSE 60; RESP 19; TEMP 96.5; O2SAT 99
[2017-01-24] MEDS: LIDOCAINE HCL 5% PATCH T-DERMAL SCH (19:47)
[2017-01-24] MEDS: traZODone HCL 100 MG TAB PO SCH (19:47)
[2017-01-24] MEDS: MAGNESIUM HYDROXIDE SUSP 30 ML CUP PO SCH (19:47)
[2017-01-24] MEDS: PRAVASTATIN SOD 80 MG TAB PO SCH (19:47)
[2017-01-24 19:48] VITALS: BP 114/69; PULSE 68; RESP 18; TEMP 96.9; O2SAT 97
[2017-01-25] MEDS: ACETAMINOPHEN/HYDROcodone 325 MG/10 MG TAB PO PRN ×5 (02:50→21:31)
[2017-01-25] MEDS: MORPHINE SULFATE 30 MG CONTROLLED RELEASE TAB PO SCH ×3 (06:31→21:30)
[2017-01-25 08:00] VITALS: BP 135/78; PULSE 63; RESP 18; TEMP 97.7; O2SAT 99
[2017-01-25] MEDS: FLUTICASONE PROPIONATE 50 MCG/ACT 16 GM NASAL SPRAY NASAL SCH ×2 (09:00→19:59)
[2017-01-25] MEDS: REMOVE OLD LIDOCAINE PATCH T-DERMAL SCH (09:00)
[2017-01-25] MEDS: NEOMYCIN/POLYMYXIN/BACITRACIN OINT 15 GM TUBE TOPICAL SCH (09:00)
[2017-01-25] MEDS: DOCUSATE SODIUM 50 MG/SENNA 8.6 MG TAB PO SCH ×3 (09:00→19:59)
[2017-01-25] MEDS: SILVER SULFADIAZINE 1% CR 50 GM JAR TOP SCH (09:00)
[2017-01-25] MEDS: CALCIUM CARBONATE 500 MG CHEWABLE TAB CHEW SCH ×2 (09:17→19:59)
[2017-01-25] MEDS: GABAPENTIN 300 MG CAP PO SCH ×3 (09:17→16:58)
[2017-01-25] MEDS: PROPRANOLOL HCL 10 MG TAB PO SCH ×2 (09:17→19:58)
[2017-01-25] MEDS: LACTOBACILLUS ACIDOPHILUS TAB PO SCH ×3 (09:17→16:59)
[2017-01-25] MEDS: ASCORBIC ACID 500 MG TAB PO SCH ×2 (09:17→19:59)
[2017-01-25] MEDS: THIAMINE HCL 100 MG TAB PO SCH (09:17)
[2017-01-25] MEDS: PANTOPRAZOLE SOD 40 MG DELAYED RELEASE TAB PO SCH (09:17)
[2017-01-25] MEDS: SODIUM CHLORIDE 0.9% FLUSH 10 ML FLUSH IV FLUSH SCH ×2 (09:18→19:59)
[2017-01-25] MEDS: CALCIUM/VITAMIN D 250 MG/125 U TAB PO SCH ×3 (09:18→16:59)
[2017-01-25] MEDS: FOLIC ACID 1 MG TAB PO SCH (09:18)
[2017-01-25] MEDS: ASPIRIN 81 MG CHEW TAB CHEW SCH (09:18)
[2017-01-25] MEDS: LACTATED RINGER'S 1000 ML INJ 1,000 ML IV SCH ×2 (09:20→19:34)
--- NOTE | 2017-01-25 09:46 | HHI.PR ---
Subjective Remarks Follow-up for a trauma patient with bilateral lower extremity fractures. Patient is resting well in bed. No acute concerns. Objective Vitals Vital Signs Date Time Temp Pulse Resp B/P (MAP) Pulse Ox O2 Delivery O2 Flow Rate FiO2 01/25/17 08:00 97.7 63 18 135/78 (97) 99 01/24/17 19:48 96.9 68 18 114/69 (84) 97 01/24/17 16:00 96.5 60 19 116/62 (80) 99 01/24/17 12:00 96.7 64 19 123/70 (87) 97 01/24/17 10:29 96.5 60 18 119/69 (86) 99 I/O 01/24/17 01/24/17 01/24/17 01/25/17 01/25/17 01/25/17 07:00 15:00 23:00 07:00 15:00 23:00 Intake Total 515 ml 1955 ml 480 ml 995 ml Output Total 520 ml 1000 ml Balance 515 ml 1955 ml -40 ml -5 ml Intake Oral 1440 ml 480 ml 480 ml IV Total 515 ml 515 ml 515 ml Output Urine Total 520 ml 1000 ml # Voids 2 4 # Bowel Movements 4 0 0 Result Diagram: 01/24/17 0743 01/25/17 0645 Objective Remarks GENERAL: Alert, oriented 3, NAD. SKIN: Warm and dry. HEAD: Normocephalic. EYES: No scleral icterus. No injection or drainage. NECK: Supple, trachea midline. No JVD or lymphadenopathy. CARDIOVASCULAR: Regular rate and rhythm without murmurs, gallops, or rubs. RESPIRATORY: Breath sounds equal bilaterally. No accessory muscle use. GASTROINTESTINAL: Abdomen soft, non-tender, nondistended. MUSCULOSKELETAL: No cyanosis, or edema. Fracture boot in place on RLE and dressing on the left lower ext. BACK: Nontender without obvious deformity. No CVA tenderness. Procedures 1.s/p I&D with ex fix application bilateral tibias s/p wound vac application left tibia 2.With the assistance of RN, under sterile technique the avulsed skin of the right middle finger was clipped. No bleeding noted. Patient gave consent 3.Open reduction internal fixation of right distal tibia and fibula fractures Nonoperative treatment left tibial plateau fracture Irrigation and debridement of left tibia shaft fracture, removal external fixation, soleus muscle rotational flap, intramedullary nail fixation left tibia , application of wound VAC dressing 4.11/13 Irrigation and debridement of left tibia, application wound VAC dressing 5. 11/28 Irrigation and debridement of left open tibia fracture with application of wound VAC dressing 6. 12/01 wound vac change at the bedside 7. 12/05 wound vac change at the bedside 8. 12/08 wound vac change at the bedside 9. 12/09 I&D left tibia, application of wound VAC dressing and application of AlloMax allograft dermal matrix 10. 01/09 Removal of external fixation right lower extremity, irrigation debridement of left leg, split-thickness skin graft left leg, application wound VAC dressing 12. 01/23/17 S/P Left Leg debridement and application of allograft A/P Problem List: (1) Fracture of tibia, left, open ICD Code: S82.202B - Unspecified fracture of shaft of left tibia, initial encounter for open fracture type I or II Status: Acute (2) Fracture of tibia, right, open ICD Code: S82.201B - Unspecified fracture of shaft of right tibia, initial encounter for open fracture type I or II Status: Acute (3) Hypotension ICD Code: I95.9 - Hypotension, unspecified Status: Acute (4) Right shoulder pain ICD Code: M25.511 - Pain in right shoulder Assessment and Plan Mr. Donohue is a 61 year old male who was brought to the hospital on 11/07/2016 as a trauma alert. 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 Patient's sustained severe bilateral leg pain. Imaging studies indicated bilateral tibial and fibular fractures. Patient has undergone multiple orthopedic surgical interventions. Bilateral open tibia-fibula fractures Left tibial plateau fracture MRSA in the wound - Open fractures have been surgically repaired, right side has external fixation - s/p Removal of external fixation right lower extremity, irrigation debridement of left leg, split-thickness skin graft left leg, application wound VAC dressing on 01/09 - Wound vac discontinued on 01/19/2017. - left tibial plateau fracture treated nonoperatively - continue with pain control. - management per ortho: LLE: -50%WB for transfers only -Daily dressing changes with bacitracin, Adaptic, 4 x 4's and ABDs with Raul wrap -daily dressing changes of harvest site. change ABD only. leave xeroform in place. RLE: -NWB -fx boot at all times except for PT -PT to work on ankle ROM -daily dressing changes of pin sites with xeroform/4x4/raul - wound culture ( leg) 12/23 positive for MRSA - on Vanco- plan for six weeks from the starting date which was likely 2016. Discussed with nursing end date. - monitor CBC/ CMP weekly. - S/P Left leg debridement, placement of allograft on 01/23/2017. - Per orthopedic surgery, probable surgery on 01/27/2017 due to remove hardware and possible IM nail with iliac crest bone graft, stem cells. Acute blood loss anemia - Related to trauma vs post op blood loss - Status post transfusion of 2 units of packed red blood cells in 11/12/16. - Continue to monitor CBC - Stable for now, hemoglobin 11-12. Coronary artery disease - Seems stable. The patient is asymptomatic. - Continue propranolol and statin - Clonidine PRN Hypertension - RAUL inhibitor held due to hypotension. - Narcotics seem to have a depressive affect on this patient, however blood pressure has much improved after the patient was taken off IV morphine - Propranolol being tolerated by patient - Currently BP is well controlled. Diabetes mellitus type 2 - Blood sugar seems to be stable. - Continue sliding scale insulin. Continue to monitor Accu-Cheks. - Continue with diabetic diet Alcohol abuse - AST mildly elevated, AST within normal range. - There is no evidence of alcohol withdrawal at this moment. - Alcohol cessation recommended Tobacco abuse - Cessation recommended. Chronic essential tremor - Continue Propranolol with holding parameters, HR <55 Hyponatremia - Sodium trending up on fluid restriction. - Improved Sodium 134 -->138 - Continue to monitor BMP. Leukocytosis - Likely reactive. ID consulted, appreciate recommendations. - Blood cultures negative to date, continue to monitor. Dermatitis. Nystatin. wound care. GI prophylaxis: PPI No chemoprophylaxis due to blood loss. Problem Qualifiers (1) Fracture of tibia, left, open: (2) Fracture of tibia, right, open: (3) Hypotension: (4) Right shoulder pain: Qualified Codes: M25.511 - Pain in right shoulder; G89.29 - Other chronic pain Neva Owens DO Jan 25, 2017 09:46
[2017-01-25 12:00] VITALS: BP 137/79; PULSE 65; RESP 18; TEMP 97; O2SAT 100
[2017-01-25] MEDS: VANCOMYCIN 1,500 MG/NS 500 ML IV SCH ×4 (12:38→23:57)
[2017-01-25] MEDS: FERROUS SULFATE 325 MG (65 MG ELEMENTAL IRON) TAB PO SCH ×2 (12:38→16:59)
[2017-01-25] MEDS: diphenhydrAMINE HCL 50 MG CAP PO PRN (12:53)
[2017-01-25 16:00] VITALS: BP 122/70; PULSE 72; RESP 17; TEMP 98.5; O2SAT 100
[2017-01-25] MEDS ORDERED: GLUCAGON 1 MG/ML VIAL OTHER PRN (19:15)
[2017-01-25] MEDS ORDERED: DEXTROSE 50% IN WATER 50 ML VIAL(D50) IV PUSH PRN (19:15)
[2017-01-25 19:39] VITALS: BP 116/69; PULSE 74; RESP 18; TEMP 96.4; O2SAT 97
[2017-01-25] MEDS: PRAVASTATIN SOD 80 MG TAB PO SCH (19:58)
[2017-01-25] MEDS: traZODone HCL 100 MG TAB PO SCH (19:59)
[2017-01-25] MEDS: MAGNESIUM HYDROXIDE SUSP 30 ML CUP PO SCH (19:59)
[2017-01-25] MEDS: LIDOCAINE HCL 5% PATCH T-DERMAL SCH (20:00)
[2017-01-25] MEDS: INSULIN ASPART SUPPLEMENTAL SCALE SQ SCH (20:00)
[2017-01-26] MEDS: ACETAMINOPHEN/HYDROcodone 325 MG/10 MG TAB PO PRN ×4 (02:45→17:17)
[2017-01-26] MEDS: LACTATED RINGER'S 1000 ML INJ 1,000 ML IV SCH ×2 (03:47→13:13)
[2017-01-26] MEDS: MORPHINE SULFATE 30 MG CONTROLLED RELEASE TAB PO SCH ×3 (06:43→21:01)
--- NOTE | 2017-01-26 07:18 | PD.ORT.PN ---
Subjective Subjective Remarks Pain controlled Doing well Objective Vitals Vital Signs Date Time Temp Pulse Resp B/P (MAP) Pulse Ox O2 Delivery O2 Flow Rate FiO2 01/25/17 19:39 96.4 74 18 116/69 (85) 97 01/25/17 16:00 98.5 72 17 122/70 (87) 100 01/25/17 12:00 97.0 65 18 137/79 (98) 100 01/25/17 08:00 97.7 63 18 135/78 (97) 99 I/O 01/25/17 01/25/17 01/25/17 01/26/17 01/26/17 01/26/17 07:00 15:00 23:00 07:00 15:00 23:00 Intake Total 995 ml 1955 ml 480 ml 875 ml Output Total 1000 ml 1000 ml Balance -5 ml 1955 ml 480 ml -125 ml Intake Oral 480 ml 1440 ml 480 ml 360 ml IV Total 515 ml 515 ml 515 ml Output Urine Total 1000 ml 1000 ml # Voids 3 3 # Bowel Movements 0 1 0 0 Result Diagram: 01/24/17 0743 01/25/17 0645 Imaging Last 24 hours Impressions Pelvis X-Ray 11/07/16 1355 Signed Impressions: Service Date/Time: Monday, November 07, 2016 13:34 - CONCLUSION: No acute disease. Behzad Finch Jr., MD Chest X-Ray 11/07/16 1355 Signed Impressions: Service Date/Time: Monday, November 07, 2016 13:34 - CONCLUSION: No acute disease. Jac Gonzales MD Objective Remarks RLE: +fracture boot. dressings clean and dry LLE: Clean dry dressings intact Dressing of bacitracin and Adaptic applied to skin graft. Soft dressings reapplied with 4 x 4's ABDs and Raul wrap. Assessment & Plan Assessment and Plan 1) Right Open Tibia Fracture s/p exfix revision with ORIF 2) Left Open Tibia Fracture s/p Soleus muscle flap with IMN and removal of exfix 3) left tibia plateau fracture treated nonoperatively 4) s/p STSG left leg LLE: - progress to weightbearing as tolerated -daily dressing changes of harvest site. change ABD only. leave xeroform in place. Dr. 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 Jan 26, 2017 07:18
[2017-01-26 08:00] VITALS: BP 128/74; PULSE 77; RESP 18; TEMP 97.1; O2SAT 97
[2017-01-26] MEDS: INSULIN ASPART SUPPLEMENTAL SCALE SQ SCH ×4 (08:00→21:00)
[2017-01-26] MEDS: SILVER SULFADIAZINE 1% CR 50 GM JAR TOP SCH (09:00)
[2017-01-26] MEDS: REMOVE OLD LIDOCAINE PATCH T-DERMAL SCH (09:00)
[2017-01-26] MEDS: NEOMYCIN/POLYMYXIN/BACITRACIN OINT 15 GM TUBE TOPICAL SCH (09:00)
[2017-01-26] MEDS: PROPRANOLOL HCL 10 MG TAB PO SCH ×2 (10:17→20:57)
[2017-01-26] MEDS: ASCORBIC ACID 500 MG TAB PO SCH ×2 (10:17→20:57)
[2017-01-26] MEDS: THIAMINE HCL 100 MG TAB PO SCH (10:17)
[2017-01-26] MEDS: FOLIC ACID 1 MG TAB PO SCH (10:17)
[2017-01-26] MEDS: ASPIRIN 81 MG CHEW TAB CHEW SCH (10:17)
[2017-01-26] MEDS: DOCUSATE SODIUM 50 MG/SENNA 8.6 MG TAB PO SCH ×2 (10:17→20:59)
[2017-01-26] MEDS: PANTOPRAZOLE SOD 40 MG DELAYED RELEASE TAB PO SCH (10:17)
[2017-01-26] MEDS: LACTOBACILLUS ACIDOPHILUS TAB PO SCH ×3 (10:17→17:17)
[2017-01-26] MEDS: CALCIUM CARBONATE 500 MG CHEWABLE TAB CHEW PRN (10:17)
[2017-01-26] MEDS: CALCIUM/VITAMIN D 250 MG/125 U TAB PO SCH ×3 (10:17→17:17)
[2017-01-26] MEDS: GABAPENTIN 300 MG CAP PO SCH ×3 (10:18→17:17)
[2017-01-26] MEDS: SODIUM CHLORIDE 0.9% FLUSH 10 ML FLUSH IV FLUSH SCH ×2 (10:18→20:58)
[2017-01-26] MEDS: CALCIUM CARBONATE 500 MG CHEWABLE TAB CHEW SCH ×2 (10:18→20:58)
[2017-01-26] MEDS: FLUTICASONE PROPIONATE 50 MCG/ACT 16 GM NASAL SPRAY NASAL SCH ×2 (10:21→21:00)
[2017-01-26 12:00] VITALS: BP 114/71; PULSE 83; RESP 18; TEMP 97.2; O2SAT 98
[2017-01-26] MEDS: VANCOMYCIN 1,500 MG/NS 500 ML IV SCH ×2 (13:12)
[2017-01-26] MEDS: FERROUS SULFATE 325 MG (65 MG ELEMENTAL IRON) TAB PO SCH ×2 (13:12→17:17)
--- NOTE | 2017-01-26 13:51 | HHI.PR ---
Subjective Remarks Follow-up for a trauma patient with bilateral lower extremity fractures. Patient is currently doing well. No acute concerns. He knows that he will undergo surgical intervention tomorrow. However he categorically declines to do iliac crest bone graft. Objective Vitals Vital Signs Date Time Temp Pulse Resp B/P (MAP) Pulse Ox O2 Delivery O2 Flow Rate FiO2 01/26/17 12:00 97.2 83 18 114/71 (85) 98 01/26/17 08:00 97.1 77 18 128/74 (92) 97 01/25/17 19:39 96.4 74 18 116/69 (85) 97 01/25/17 16:00 98.5 72 17 122/70 (87) 100 I/O 01/25/17 01/25/17 01/25/17 01/26/17 01/26/17 01/26/17 07:00 15:00 23:00 07:00 15:00 23:00 Intake Total 995 ml 1955 ml 480 ml 875 ml Output Total 1000 ml 1000 ml Balance -5 ml 1955 ml 480 ml -125 ml Intake Oral 480 ml 1440 ml 480 ml 360 ml IV Total 515 ml 515 ml 515 ml Output Urine Total 1000 ml 1000 ml # Voids 3 3 # Bowel Movements 0 1 0 0 Result Diagram: 01/24/17 0743 01/25/17 0645 Imaging Last Impressions Chest X-Ray 01/23/17 0000 Signed Impressions: Service Date/Time: Monday, January 23, 2017 13:10 - CONCLUSION: 1. No acute cardiopulmonary disease. Sukhi Stevens MD Tibia/Fibula X-Ray 01/22/17 0000 Signed Impressions: Service Date/Time: January 09:18 - CONCLUSION: Satisfactory postop appearance Jonathan Amezquita MD Ankle X-Ray 01/22/17 0000 Signed Impressions: Service Date/Time: January 09:20 - CONCLUSION: Satisfactory postop appearance. Jonathan Amezquita MD Knee X-Ray 01/01/17 0000 Signed Impressions: Service Date/Time: December 09:37 - CONCLUSION: Lateral tibial plateau fracture without involvement of the articulating surface. Paul Fuentes MD Foot X-Ray 12/27/16 0000 Signed Impressions: Service Date/Time: Tuesday, December 27, 2016 16:50 - CONCLUSION: Distal tibia and fibula fractures with internal fixation hardware. Samir Massey MD Gall Bladder Ultrasound 12/05/16 0000 Signed Impressions: Service Date/Time: Monday, December 05, 2016 08:38 - CONCLUSION: Unremarkable exam. Gallbladder is within normal limits with no evidence of cholelithiasis. Ronald Rao MD Abdomen X-Ray 12/04/16 0000 Signed Impressions: Service Date/Time: November 10:42 - CONCLUSION: Unremarkable bowel gas pattern. Ronald Rao MD Pelvis X-Ray 11/07/16 1355 Signed Impressions: Service Date/Time: Monday, November 07, 2016 13:34 - CONCLUSION: No acute disease. Behzad Finch Jr., MD Objective Remarks GENERAL: Alert, oriented 3, NAD. SKIN: Warm and dry. HEAD: Normocephalic. EYES: No scleral icterus. No injection or drainage. NECK: Supple, trachea midline. No JVD or lymphadenopathy. CARDIOVASCULAR: Regular rate and rhythm without murmurs, gallops, or rubs. RESPIRATORY: Breath sounds equal bilaterally. No accessory muscle use. GASTROINTESTINAL: Abdomen soft, non-tender, nondistended. MUSCULOSKELETAL: No cyanosis, or edema. Fracture boot in place on RLE and dressing on the left lower ext. BACK: Nontender without obvious deformity. No CVA tenderness. Procedures 1.s/p I&D with ex fix application bilateral tibias s/p wound vac application left tibia 2.With the assistance of RN, under sterile technique the avulsed skin of the right middle finger was clipped. No bleeding noted. Patient gave consent 3.Open reduction internal fixation of right distal tibia and fibula fractures Nonoperative treatment left tibial plateau fracture Irrigation and debridement of left tibia shaft fracture, removal external fixation, soleus muscle rotational flap, intramedullary nail fixation left tibia , application of wound VAC dressing 4.11/13 Irrigation and debridement of left tibia, application wound VAC dressing 5. 8 Irrigation and debridement of left open tibia fracture with application of wound VAC dressing 6. 8 wound vac change at the bedside 7. 12/05 wound vac change at the bedside 8. 12/08 wound vac change at the bedside 9. 12/09 I&D left tibia, application of wound VAC dressing and application of AlloMax allograft dermal matrix 10. 01/09 Removal of external fixation right lower extremity, irrigation debridement of left leg, split-thickness skin graft left leg, application wound VAC dressing 12. 01/23/17 S/P Left Leg debridement and application of allograft A/P Problem List: (1) Fracture of tibia, left, open ICD Code: S82.202B - Unspecified fracture of shaft of left tibia, initial encounter for open fracture type I or II Status: Acute (2) Fracture of tibia, right, open ICD Code: S82.201B - Unspecified fracture of shaft of right tibia, initial encounter for open fracture type I or II Status: Acute (3) Hypotension ICD Code: I95.9 - Hypotension, unspecified Status: Acute (4) Right shoulder pain ICD Code: M25.511 - Pain in right shoulder Assessment and Plan Mr. Donohue is a 61 year old male who was brought to the hospital on 11/07/2016 as a trauma alert. 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 Patient's sustained severe bilateral leg pain. Imaging studies indicated bilateral tibial and fibular fractures. Patient has undergone multiple orthopedic surgical interventions. Bilateral open tibia-fibula fractures Left tibial plateau fracture MRSA in the wound - Open fractures have been surgically repaired, right side has external fixation - s/p Removal of external fixation right lower extremity, irrigation debridement of left leg, split-thickness skin graft left leg, application wound VAC dressing on 01/09 - Wound vac discontinued on 01/19/2017. - left tibial plateau fracture treated nonoperatively - continue with pain control. - management per ortho: LLE: -50%WB for transfers only -Daily dressing changes with bacitracin, Adaptic, 4 x 4's and ABDs with Raul wrap -daily dressing changes of harvest site. change ABD only. leave xeroform in place. RLE: -NWB -fx boot at all times except for PT -PT to work on ankle ROM -daily dressing changes of pin sites with xeroform/4x4/raul - wound culture ( leg) 12/23 positive for MRSA - on Vanco- plan for six weeks from the starting date which was likely 2016. Discussed with nursing end date. - monitor CBC/ CMP weekly. - S/P Left leg debridement, placement of allograft on 01/23/2017. - Per orthopedic surgery, probable surgery on 01/27/2017 due to remove hardware and possible IM nail with iliac crest bone graft, stem cells. - Patient does not want to do iliac crest bone graft. He is open to other surgical options, however. Acute blood loss anemia - Related to trauma vs post op blood loss - Status post transfusion of 2 units of packed red blood cells in 11/12/16. - Continue to monitor CBC - Stable for now, hemoglobin 11-12. Coronary artery disease - Seems stable. The patient is asymptomatic. - Continue propranolol and statin - Clonidine PRN Hypertension - RAUL inhibitor held due to hypotension. - Narcotics seem to have a depressive affect on this patient, however blood pressure has much improved after the patient was taken off IV morphine - Propranolol being tolerated by patient - Currently BP is well controlled. Diabetes mellitus type 2 - Blood sugar seems to be stable. - Continue sliding scale insulin. Continue to monitor Accu-Cheks. - Continue with diabetic diet Alcohol abuse - AST mildly elevated, AST within normal range. - There is no evidence of alcohol withdrawal at this moment. - Alcohol cessation recommended Tobacco abuse - Cessation recommended. Chronic essential tremor - Continue Propranolol with holding parameters, HR <55 Hyponatremia - Sodium trending up on fluid restriction. - Improved Sodium 134 -->136 - Continue to monitor BMP. Leukocytosis - Likely reactive. ID consulted, appreciate recommendations. - Blood cultures negative to date, continue to monitor. Dermatitis. Nystatin. wound care. GI prophylaxis: PPI No chemoprophylaxis due to blood loss. Problem Qualifiers (1) Fracture of tibia, left, open: (2) Fracture of tibia, right, open: (3) Hypotension: (4) Right shoulder pain: Qualified Codes: M25.511 - Pain in right shoulder; G89.29 - Other chronic pain Neva Owens DO Jan 26, 2017 1:51 pm
[2017-01-26 20:53] VITALS: BP 115/70; PULSE 78; RESP 18; TEMP 96.5; O2SAT 98
[2017-01-26] MEDS: MAGNESIUM HYDROXIDE SUSP 30 ML CUP PO SCH (20:57)
[2017-01-26] MEDS: PRAVASTATIN SOD 80 MG TAB PO SCH (20:57)
[2017-01-26] MEDS: LIDOCAINE HCL 5% PATCH T-DERMAL SCH (20:59)
[2017-01-26] MEDS: traZODone HCL 100 MG TAB PO SCH (21:00)
[2017-01-26] MEDS: diphenhydrAMINE HCL 50 MG CAP PO PRN (21:15)
[2017-01-27] MEDS: VANCOMYCIN 1,500 MG/NS 500 ML IV SCH ×4 (00:39→12:41)
[2017-01-27] MEDS: LACTATED RINGER'S 1000 ML INJ 1,000 ML IV SCH ×3 (01:34→12:30)
[2017-01-27] MEDS: ACETAMINOPHEN/HYDROcodone 325 MG/10 MG TAB PO PRN ×3 (02:13→23:24)
--- NOTE | 2017-01-27 06:56 | PD.ORT.PN ---
Subjective Subjective Remarks s/p left tibia IMN and right tibia ORIF with exfix s/p left tibia soleus flap s/p left tibial plateau fracture POD 18 s/p STSG left leg and removal of exfix right leg reports pain at harvest site. otherwise, no complaints. Objective Vitals Vital Signs Date Time Temp Pulse Resp B/P (MAP) Pulse Ox O2 Delivery O2 Flow Rate FiO2 01/26/17 20:53 96.5 78 18 115/70 (85) 98 01/26/17 12:00 97.2 83 18 114/71 (85) 98 01/26/17 08:00 97.1 77 18 128/74 (92) 97 I/O 01/26/17 01/26/17 01/26/17 01/27/17 01/27/17 01/27/17 07:00 15:00 23:00 07:00 15:00 23:00 Intake Total 875 ml 360 ml Output Total 1000 ml 400 ml Balance -125 ml -40 ml Intake Oral 360 ml 360 ml IV Total 515 ml Output Urine Total 1000 ml 400 ml # Bowel Movements 0 0 Result Diagram: 01/24/17 0743 01/25/17 0645 Imaging Last 24 hours Impressions Pelvis X-Ray 11/07/16 1355 Signed Impressions: Service Date/Time: Monday, November 07, 2016 13:34 - CONCLUSION: No acute disease. Behzad Finch Jr., MD Chest X-Ray 11/07/16 1355 Signed Impressions: Service Date/Time: Monday, November 07, 2016 13:34 - CONCLUSION: No acute disease. Jac Gonzales MD Objective Remarks RLE: +fracture boot. dressings clean and dry LLE: Clean dry dressings intact Dressing of bacitracin and Adaptic applied to skin graft. Soft dressings reapplied with 4 x 4's ABDs and Raul wrap. Assessment & Plan Assessment and Plan 1) Right Open Tibia Fracture s/p exfix revision with ORIF 2) Left Open Tibia Fracture s/p Soleus muscle flap with IMN and removal of exfix 3) left tibia plateau fracture treated nonoperatively 4) s/p STSG left leg LLE: - progress to weightbearing as tolerated -daily dressing changes of harvest site. change ABD only. leave xeroform in place. Dr. Dipti for graft over exposed tendon, dressing changes managed by plastics RLE: -NWB -fx boot at all times except for PT -PT to work on ankle ROM -daily dressing changes of pin sites with xeroform/4x4/raul surgery today for right leg nonunion Jef Steve Jan 27, 2017 06:56
[2017-01-27] MEDS: ASCORBIC ACID 500 MG TAB PO SCH ×2 (07:58→20:03)
[2017-01-27] MEDS: GABAPENTIN 300 MG CAP PO SCH ×3 (07:59→18:00)
[2017-01-27] MEDS: FOLIC ACID 1 MG TAB PO SCH (07:59)
[2017-01-27] MEDS: LACTOBACILLUS ACIDOPHILUS TAB PO SCH ×3 (07:59→18:00)
[2017-01-27] MEDS: PROPRANOLOL HCL 10 MG TAB PO SCH ×2 (07:59→20:02)
[2017-01-27] MEDS: PANTOPRAZOLE SOD 40 MG DELAYED RELEASE TAB PO SCH (07:59)
[2017-01-27 08:00] VITALS: BP 95/54; PULSE 76; RESP 18; TEMP 97.1; O2SAT 98
[2017-01-27] MEDS: INSULIN ASPART SUPPLEMENTAL SCALE SQ SCH ×4 (08:00→20:03)
[2017-01-27] MEDS: CALCIUM CARBONATE 500 MG CHEWABLE TAB CHEW SCH ×2 (08:00→20:02)
[2017-01-27] MEDS: MORPHINE SULFATE 30 MG CONTROLLED RELEASE TAB PO SCH ×3 (08:00→23:25)
[2017-01-27] MEDS: THIAMINE HCL 100 MG TAB PO SCH (08:00)
[2017-01-27] MEDS: CALCIUM/VITAMIN D 250 MG/125 U TAB PO SCH ×3 (08:00→18:00)
[2017-01-27] MEDS: SODIUM CHLORIDE 0.9% FLUSH 10 ML FLUSH IV FLUSH SCH (08:01)
[2017-01-27] MEDS: ASPIRIN 81 MG CHEW TAB CHEW SCH (08:04)
[2017-01-27] MEDS ORDERED: ACETAMINOPHEN 1000 MG/100 ML 100 ML IV ONE (08:26)
[2017-01-27] MEDS ORDERED: FAMOTIDINE 20 MG/2 ML VIAL ONE (08:52)
[2017-01-27] MEDS ORDERED: ceFAZolin 2 GM PREMIX 50 ML ONE (09:01)
[2017-01-27] MEDS ORDERED: GENTAMICIN SULFATE 80 MG/2 ML VIAL ONE (09:02)
[2017-01-27] MEDS ORDERED: BUPIVACAINE/EPINEPHRINE 0.25% 50 ML VIAL ONE (10:52)
--- NOTE | 2017-01-27 11:11 | PD.OP ---
cc: Salbador Gillis MD Operative Report Date of Surgery: Jan 27, 2017 Preoperative Diagnosis: Right distal tibia nonunion Postoperative Diagnosis: Procedure: Removal of deep hardware, revision open reduction internal fixation right distal tibia fracture nonunion, iliac crest bone grafting Surgeon: Salbador Gillis Business Objects Report Developer(s): KAMALA Pereyra PA-C The surgical procedure was assisted by my physician assistant inventory manager. My P.A. presence was necessary throughout this case for the manipulation and positioning of the surgical extremity. My P.A. was assisting me throughout the duration of this procedure. The skill set of a physician assistant inventory manager was medically necessary to complete this procedure. During the surgical case the pyrotechnic assembler was working at the back table and the physician assistant inventory manager was directly assisting me. Operation and Findings: Informed consent was obtained for open reduction and internal fixation of right distal tibia fracture nonunion. Soft tissue was evaluated preoperatively and found to be suitable for surgery. Patient was brought to the operating placed on operating room table. Patient was given IV sedation and general anesthesia. Timeout procedure was performed, and IV antibiotics were given prior to procedure. The operative leg was now prepped with alcohol followed by Hibiclens and draped usual sterile fashion. A 5 inch incision was now made over the medial aspect of the ankle. Saphenous vein was protected. A full thickness flap was now elevated. The distal medial tibia was now exposed. At this point attention was turned to removal of hardware. The 2 screws were identified. The screws were now removed using a screwdriver. Next attention was turned to debridement of the nonunion. Curettes and rongeurs were used to debride fibrous tissue. A TPS bur was also used to debride the fracture site. The bone was debrided back to healthy bleeding bone. Attention was now turned towards reduction. The metaphyseal fragments were reduced first. Traction was applied and fracture fragments were manipulated. These were manipulated in excellent reduction was achieved. Fracture tenaculums were used to reduce fractures. Multiple K wires were used to hold provisional fixation. Fluoroscopy confirmed excellent alignment of fractures. A Synthes medial distal tibial plate was selected. Plate was placed percutaneously along the medial aspect of the distal tibia. Plate was provisionally held to bone with K wires. 2.7 cortical screws and 3.5 cortical screws were used to compress plate to bone. Multiple screws were placed into the shaft. Multiple 2.7 locking screws were placed into the distal segment. All screws were predrilled and premeasured for appropriate lengths. Final fluoroscopy revealed well aligned fracture with well-placed hardware. At this point attention was turned iliac crest bone grafting. A 3 cm incision was made over the iliac crest. Subcutaneous tissue dissected with Bovie. Osteotomes were used to create a window in the iliac crest. Bone graft was now harvested from the iliac crest using curettes. After completion of harvesting of the bone graft fascia was closed with #1 Vicryl. Subcutaneous tissues closed with 3-0 Vicryl. Skin was closed with giuseppe. The incision area was infiltrated with quarter percent Marcaine with epinephrine. The bone graft was now packed around the nonunion site. The wound was now thoroughly irrigated. Subcutaneous tissues closed with 3-0 Vicryl and skin was closed with 3-0 nylon. Sterile dressings were applied with Xeroform 4 x 4's soft roll and a well-padded splint.. Needle and sponge counts were correct. Patient was transferred to recovery room in stable condition. Salbador Gillis MD Jan 27, 2017 11:11
[2017-01-27] MEDS ORDERED: Post-op Orders (for Pharmacy) MISC XX ONE (11:15)
[2017-01-27] MEDS ORDERED: SODIUM CHLORIDE 0.9% FLUSH 5 ML FLUSH IVF PRN (11:15)
[2017-01-27] MEDS ORDERED: PHARMACY ORDERED LAB ONE ×2 (11:45→23:45)
[2017-01-27] MEDS ORDERED: DO NOT ADM ANY ANTICOAGULANT DRUGS PRN (11:51)
[2017-01-27] MEDS ORDERED: *MEPERIDINE 25 MG INJ VIAL PERIprocedural Use ONLY ONE (11:52)
[2017-01-27] MEDS ORDERED: *morphine SULFATE 8 MG/ML PERIprocedure ONLY ONE (12:06)
[2017-01-27] MEDS: FERROUS SULFATE 325 MG (65 MG ELEMENTAL IRON) TAB PO SCH ×2 (13:42→17:00)
[2017-01-27 16:00] VITALS: BP 103/64; PULSE 79; RESP 18; TEMP 96.3; O2SAT 96
[2017-01-27] MEDS: ceFAZolin 2 GM PREMIX 50 ML IV SCH (18:00)
[2017-01-27] MEDS: DOCUSATE SODIUM 50 MG/SENNA 8.6 MG TAB PO SCH ×2 (18:42→20:02)
[2017-01-27] MEDS: SILVER SULFADIAZINE 1% CR 50 GM JAR TOP SCH (18:43)
[2017-01-27] MEDS: NEOMYCIN/POLYMYXIN/BACITRACIN OINT 15 GM TUBE TOPICAL SCH (18:43)
[2017-01-27] MEDS: REMOVE OLD LIDOCAINE PATCH T-DERMAL SCH (18:43)
[2017-01-27] MEDS: SODIUM CHLORIDE 0.9% FLUSH 5 ML FLUSH IVF SCH (20:02)
[2017-01-27] MEDS: MAGNESIUM HYDROXIDE SUSP 30 ML CUP PO SCH (20:02)
[2017-01-27] MEDS: traZODone HCL 100 MG TAB PO SCH (20:02)
[2017-01-27] MEDS: FLUTICASONE PROPIONATE 50 MCG/ACT 16 GM NASAL SPRAY NASAL SCH (20:02)
[2017-01-27] MEDS: LIDOCAINE HCL 5% PATCH T-DERMAL SCH (20:03)
[2017-01-27] MEDS: PRAVASTATIN SOD 80 MG TAB PO SCH (20:03)
[2017-01-27 20:04] VITALS: BP 147/77; PULSE 89; RESP 18; TEMP 96.4; O2SAT 97
--- NOTE | 2017-01-27 21:58 | HHI.PR ---
Addendum to Inpatient Note Additional Information Attempted to see patient this morning. Patient was in surgery. Neva Owens DO Jan 27, 2017 21:58
[2017-01-28] MEDS: VANCOMYCIN 1,500 MG/NS 500 ML IV SCH ×4 (00:57→12:00)
[2017-01-28] MEDS ORDERED: HYDROmorphone HCL PF 1 MG/ML VIAL IV PUSH ONE (01:00)
[2017-01-28] MEDS: diphenhydrAMINE HCL 50 MG CAP PO PRN ×4 (01:00→22:57)
[2017-01-28] MEDS: ceFAZolin 2 GM PREMIX 50 ML IV SCH ×3 (01:03→18:26)
[2017-01-28] MEDS: LACTATED RINGER'S 1000 ML INJ 1,000 ML IV SCH ×2 (01:03→14:00)
[2017-01-28] MEDS: ACETAMINOPHEN/HYDROcodone 325 MG/10 MG TAB PO PRN ×7 (03:05→22:57)
[2017-01-28] MEDS: MORPHINE SULFATE 30 MG CONTROLLED RELEASE TAB PO SCH ×3 (05:38→22:57)
--- NOTE | 2017-01-28 06:52 | PD.ORT.PN ---
Subjective Subjective Remarks s/p left tibia IMN left tibia s/p left tibia soleus flap s/p left tibial plateau fracture POD 1 s/p ORIF revision with ICBG right tibia POD 19 s/p STSG left leg and removal of exfix right leg reports significant pain in ankle overnight. [patient reports that he has family he can go home to if we are ok with him being discharged from hospital Objective Vitals Vital Signs Date Time Temp Pulse Resp B/P (MAP) Pulse Ox O2 Delivery O2 Flow Rate FiO2 01/27/17 20:04 96.4 89 18 147/77 (100) 97 01/27/17 16:00 96.3 79 18 103/64 (77) 96 01/27/17 12:45 97.4 63 13 131/79 (96) 100 Nasal Cannula 2 01/27/17 12:30 64 12 149/86 (107) 100 Nasal Cannula 2 01/27/17 12:15 67 14 143/85 (104) 100 Nasal Cannula 2 01/27/17 12:00 65 13 149/78 (101) 100 Nasal Cannula 2 01/27/17 11:51 97.5 68 20 139/82 (101) 100 Nasal Cannula 2 01/27/17 08:00 97.1 76 18 95/54 (68) 98 I/O 01/27/17 01/27/17 01/27/17 01/28/17 01/28/17 01/28/17 06:59 14:59 22:59 06:59 14:59 22:59 Intake Total 0 ml 1505 ml 720 ml 360 ml Output Total 150 ml 1000 ml Balance 0 ml 1355 ml 720 ml -640 ml Intake Oral 0 ml 480 ml 720 ml 360 ml IV Total 25 ml Other 1000 ml Output Urine Total 1000 ml Estimated Blood Loss 150 ml # Voids 4 1 4 # Bowel Movements 0 1 1 0 Result Diagram: 01/24/17 0743 01/27/17 0532 Imaging Last 24 hours Impressions Pelvis X-Ray 11/07/16 2285 Signed Impressions: Service Date/Time: Monday, November 07, 2016 13:34 - CONCLUSION: No acute disease. Behzad Finch Jr., MD Chest X-Ray 11/07/16 1279 Signed Impressions: Service Date/Time: Monday, November 07, 2016 13:34 - CONCLUSION: No acute disease. Jac Gonzales MD Objective Remarks RLE: +short leg splint. intact. NVI. neg alina. [place] site clean and dry LLE: Clean dry dressings intact Dressing of bacitracin and Adaptic applied to skin graft. Soft dressings reapplied with 4 x 4's ABDs and Raul wrap. Assessment & Plan Assessment and Plan 1) Right Open Tibia Fracture s/p revision ORIF with ICBG - POD 1 2) Left Open Tibia Fracture s/p Soleus muscle flap with IMN and removal of exfix 3) left tibia plateau fracture treated nonoperatively 4) s/p STSG left leg LLE: - progress to weightbearing as tolerated -daily dressing changes of harvest site. change ABD only. leave xeroform in place. Dr. Resendez for graft over exposed tendon, dressing changes managed by plastics RLE: -NWB -maintain splint at all times -elevate -daily dressing changes to bone graft site on hip -CM for DME -will plan for DC home with family on thursday -f/u with Stew or MADIHA in 2 weeks Jef Steve Jan 28, 2017 06:52
[2017-01-28] MEDS ORDERED: WALKER/ADULT/FO1 MIS (06:53)
[2017-01-28 07:10] LABS: REVIEW FLAG FINAL
[2017-01-28] MEDS: LACTOBACILLUS ACIDOPHILUS TAB PO SCH ×3 (07:53→18:26)
[2017-01-28] MEDS: GABAPENTIN 300 MG CAP PO SCH ×3 (07:54→18:26)
[2017-01-28] MEDS: ASPIRIN 81 MG CHEW TAB CHEW SCH (07:54)
[2017-01-28] MEDS: ASCORBIC ACID 500 MG TAB PO SCH ×2 (07:54→19:53)
[2017-01-28] MEDS: FOLIC ACID 1 MG TAB PO SCH (07:54)
[2017-01-28] MEDS: THIAMINE HCL 100 MG TAB PO SCH (07:54)
[2017-01-28] MEDS: CALCIUM/VITAMIN D 250 MG/125 U TAB PO SCH ×3 (07:54→18:26)
[2017-01-28] MEDS: PROPRANOLOL HCL 10 MG TAB PO SCH ×2 (07:54→19:53)
[2017-01-28] MEDS: PANTOPRAZOLE SOD 40 MG DELAYED RELEASE TAB PO SCH (07:54)
[2017-01-28] MEDS: DOCUSATE SODIUM 50 MG/SENNA 8.6 MG TAB PO SCH ×2 (07:55→19:54)
[2017-01-28] MEDS: SODIUM CHLORIDE 0.9% FLUSH 5 ML FLUSH IVF SCH ×2 (07:56→19:53)
[2017-01-28] MEDS: CALCIUM CARBONATE 500 MG CHEWABLE TAB CHEW SCH ×2 (07:56→19:53)
[2017-01-28 08:00] VITALS: BP 124/83; PULSE 103; RESP 18; TEMP 97.4; O2SAT 95
[2017-01-28] MEDS: INSULIN ASPART SUPPLEMENTAL SCALE SQ SCH ×4 (08:00→19:54)
--- NOTE | 2017-01-28 08:53 | RADRPT ---
EXAM DATE/TIME: 01/27/2017 10:46 [facility] COMPARISON: ANKLE RIGHT LIMITED (AP&LAT), November 10, 2016, 10:07. INDICATIONS : Removal of hardware and ORIF right tibia. MEDICAL HISTORY : Unobtainable. SURGICAL HISTORY : Unobtainable. ENCOUNTER: Subsequent ACUITY: 3 months PAIN SCORE: Non-responsive. LOCATION: Right ankle. FINDINGS: 6 magnified C-arm spot views are centered over the ankle joint and labeled right. There has been plac ement of a orthopedic plate along the medial cortex of the distal tibia. Multiple anchoring screws ar e seen. This traverses a comminuted metaphyseal fracture with good alignment. An orthopedic screw see n involving the distal fibula with good alignment. CONCLUSION: Limited images as detailed above. Behzad Finch Jr., MD on January 28, 2017 at 8:50 Board Certified Radiologist. This report was verified electronically.
[2017-01-28] MEDS: NEOMYCIN/POLYMYXIN/BACITRACIN OINT 15 GM TUBE TOPICAL SCH (09:00)
[2017-01-28] MEDS: FLUTICASONE PROPIONATE 50 MCG/ACT 16 GM NASAL SPRAY NASAL SCH ×2 (09:00→19:54)
[2017-01-28] MEDS: SILVER SULFADIAZINE 1% CR 50 GM JAR TOP SCH (09:00)
[2017-01-28] MEDS: REMOVE OLD LIDOCAINE PATCH T-DERMAL SCH (09:00)
[2017-01-28 11:48] VITALS: BP 122/66; PULSE 61; RESP 18; TEMP 96.8; O2SAT 98
[2017-01-28] MEDS: FERROUS SULFATE 325 MG (65 MG ELEMENTAL IRON) TAB PO SCH ×2 (12:08→18:26)
[2017-01-28 16:00] VITALS: BP 139/81; PULSE 73; RESP 18; TEMP 96.5; O2SAT 99
--- NOTE | 2017-01-28 17:13 | PD.PLAS.PN ---
Subjective Remarks The patient has no new complaints. Vital Signs Date Time Temp Pulse Resp B/P (MAP) Pulse Ox O2 Delivery O2 Flow Rate FiO2 01/28/17 11:48 96.8 61 18 122/66 (84) 98 01/28/17 08:00 97.4 103 18 124/83 (97) 95 01/27/17 20:04 96.4 89 18 147/77 (100) 97 I/O 01/27/17 01/27/17 01/27/17 01/28/17 01/28/17 01/28/17 06:59 14:59 22:59 06:59 14:59 22:59 Intake Total 0 ml 1505 ml 720 ml 360 ml 50 ml Output Total 150 ml 1000 ml Balance 0 ml 1355 ml 720 ml -640 ml 50 ml Intake Oral 0 ml 480 ml 720 ml 360 ml IV Total 25 ml 50 ml Other 1000 ml Output Urine Total 1000 ml Estimated Blood Loss 150 ml # Voids 4 1 4 # Bowel Movements 0 1 1 0 Laboratory Tests Test 01/28/17 00:15 01/28/17 06:51 Vancomycin Level Trough 14.6 Hemoglobin 11.5 Hematocrit 35.0 Date/Time Source Procedure Growth Status 11/19/16 13:45 Blood Peripheral Aerobic Blood Culture - Final NO GROWTH IN 5 DAYS Complete 11/19/16 13:45 Blood Peripheral Anaerobic Blood Culture - Final NO GROWTH IN 5 DAYS Complete 01/20/17 16:30 Wound Leg Gram Stain - Final Complete 01/20/17 16:30 Wound Leg Wound Culture - Final NO GROWTH IN 72 HRS.--AEROBICALLY OR ... Complete Result Diagram: 01/28/17 0651 01/27/17 0532 Exam Findings Examination of the left leg reveals improved circulation to the open areas including the exposed tendon. Plan Impression: The patient is doing well and can be discharged on daily wound care to his left leg. Plan: The patient should follow up in a wound care clinic next week to be evaluated for possible additional allograft application. Denisha Resendez MD Jan 28, 2017 17:13
[2017-01-28 19:35] VITALS: BP 104/51; PULSE 66; RESP 18; TEMP 97.1; O2SAT 98
[2017-01-28] MEDS: PRAVASTATIN SOD 80 MG TAB PO SCH (19:53)
[2017-01-28] MEDS: traZODone HCL 100 MG TAB PO SCH (19:53)
[2017-01-28] MEDS: MAGNESIUM HYDROXIDE SUSP 30 ML CUP PO SCH (19:54)
[2017-01-28] MEDS: LIDOCAINE HCL 5% PATCH T-DERMAL SCH (19:54)
[2017-01-29] MEDS: VANCOMYCIN 1,500 MG/NS 500 ML IV SCH ×6 (00:17→22:12)
[2017-01-29] MEDS: ceFAZolin 2 GM PREMIX 50 ML IV SCH ×2 (02:06→09:28)
[2017-01-29] MEDS: LACTATED RINGER'S 1000 ML INJ 1,000 ML IV SCH ×3 (02:30→23:38)
[2017-01-29] MEDS: ACETAMINOPHEN/HYDROcodone 325 MG/10 MG TAB PO PRN ×5 (05:59→22:12)
[2017-01-29] MEDS: MORPHINE SULFATE 30 MG CONTROLLED RELEASE TAB PO SCH ×3 (05:59→22:04)
[2017-01-29 08:00] VITALS: BP 149/86; PULSE 70; RESP 18; TEMP 96.6; O2SAT 98
[2017-01-29] MEDS: INSULIN ASPART SUPPLEMENTAL SCALE SQ SCH ×4 (08:00→22:01)
[2017-01-29] MEDS: DOCUSATE SODIUM 50 MG/SENNA 8.6 MG TAB PO SCH ×2 (09:00→21:00)
[2017-01-29] MEDS: FLUTICASONE PROPIONATE 50 MCG/ACT 16 GM NASAL SPRAY NASAL SCH ×2 (09:00→22:05)
[2017-01-29] MEDS: REMOVE OLD LIDOCAINE PATCH T-DERMAL SCH (09:00)
[2017-01-29] MEDS: SILVER SULFADIAZINE 1% CR 50 GM JAR TOP SCH (09:00)
[2017-01-29] MEDS: NEOMYCIN/POLYMYXIN/BACITRACIN OINT 15 GM TUBE TOPICAL SCH (09:00)
[2017-01-29] MEDS: SODIUM CHLORIDE 0.9% FLUSH 5 ML FLUSH IVF SCH ×2 (09:00→22:06)
[2017-01-29] MEDS: LACTOBACILLUS ACIDOPHILUS TAB PO SCH ×3 (09:28→18:08)
[2017-01-29] MEDS: ASPIRIN 81 MG CHEW TAB CHEW SCH (09:28)
[2017-01-29] MEDS: PANTOPRAZOLE SOD 40 MG DELAYED RELEASE TAB PO SCH (09:28)
[2017-01-29] MEDS: FOLIC ACID 1 MG TAB PO SCH (09:28)
[2017-01-29] MEDS: THIAMINE HCL 100 MG TAB PO SCH (09:28)
[2017-01-29] MEDS: GABAPENTIN 300 MG CAP PO SCH ×3 (09:28→18:09)
[2017-01-29] MEDS: ASCORBIC ACID 500 MG TAB PO SCH ×2 (09:28→22:05)
[2017-01-29] MEDS: CALCIUM/VITAMIN D 250 MG/125 U TAB PO SCH ×3 (09:28→18:09)
[2017-01-29] MEDS: CALCIUM CARBONATE 500 MG CHEWABLE TAB CHEW SCH ×2 (09:29→22:05)
[2017-01-29] MEDS: PROPRANOLOL HCL 10 MG TAB PO SCH ×2 (09:29→22:05)
[2017-01-29 12:00] VITALS: BP_SYST 111; BP_SYST 139; BP_DIAS 64; BP_DIAS 75; PULSE 68; PULSE 69; RESP 17; RESP 18; TEMP 97.1; TEMP 97.6; O2SAT 95; O2SAT 97
[2017-01-29] MEDS: FERROUS SULFATE 325 MG (65 MG ELEMENTAL IRON) TAB PO SCH ×2 (13:38→18:08)
[2017-01-29 16:00] VITALS: BP 112/69; PULSE 70; RESP 18; TEMP 98; O2SAT 98
[2017-01-29 19:25] VITALS: BP 117/87; PULSE 76; RESP 14; TEMP 98.3; O2SAT 97
[2017-01-29] MEDS: LIDOCAINE HCL 5% PATCH T-DERMAL SCH (21:00)
[2017-01-29] MEDS: MAGNESIUM HYDROXIDE SUSP 30 ML CUP PO SCH (21:00)
[2017-01-29] MEDS: traZODone HCL 100 MG TAB PO SCH (22:05)
[2017-01-29] MEDS: PRAVASTATIN SOD 80 MG TAB PO SCH (22:05)
[2017-01-30] MEDS: ACETAMINOPHEN/HYDROcodone 325 MG/10 MG TAB PO PRN ×3 (02:31→11:29)
[2017-01-30] MEDS: MORPHINE SULFATE 30 MG CONTROLLED RELEASE TAB PO SCH (05:12)
--- NOTE | 2017-01-30 07:13 | PD.ORT.PN ---
Subjective Subjective Remarks Pain controlled Doing well Objective Vitals Vital Signs Date Time Temp Pulse Resp B/P (MAP) Pulse Ox O2 Delivery O2 Flow Rate FiO2 01/29/17 19:25 98.3 76 14 117/87 (97) 97 01/29/17 16:00 98.0 70 18 112/69 (83) 98 01/29/17 12:00 97.1 69 18 111/64 (80) 97 01/29/17 08:00 96.6 70 18 149/86 (107) 98 I/O 01/29/17 01/29/17 01/29/17 01/30/17 01/30/17 01/30/17 07:00 15:00 23:00 07:00 15:00 23:00 Intake Total 720 ml 720 ml 495 ml 495 ml Output Total 1150 ml Balance -430 ml 720 ml 495 ml 495 ml Intake Oral 720 ml 720 ml IV Total 495 ml 495 ml Output Urine Total 1150 ml # Voids 2 # Bowel Movements 0 1 Result Diagram: 01/28/17 0651 01/29/17 0730 Imaging Last 24 hours Impressions Pelvis X-Ray 11/07/16 1355 Signed Impressions: Service Date/Time: Monday, November 07, 2016 13:34 - CONCLUSION: No acute disease. Behzad Finch Jr., MD Chest X-Ray 11/07/16 0800 Signed Impressions: Service Date/Time: Monday, November 07, 2016 13:34 - CONCLUSION: No acute disease. Jac Gonzales MD Objective Remarks RLE: +short leg splint. intact. NVI. neg alina. [place] site clean and dry LLE: Clean dry dressings intact Dressing of bacitracin and Adaptic applied to skin graft. Soft dressings reapplied with 4 x 4's ABDs and Raul wrap. Assessment & Plan Assessment and Plan 1) Right Open Tibia Fracture s/p revision ORIF with ICBG - POD 2 2) Left Open Tibia Fracture s/p Soleus muscle flap with IMN and removal of exfix 3) left tibia plateau fracture treated nonoperatively 4) s/p STSG left leg LLE: - progress to weightbearing as tolerated -daily dressing changes of harvest site. change ABD only. leave xeroform in place. Dr. Resendez for graft over exposed tendon, dressing changes managed by plastics RLE: -NWB -maintain splint at all times -elevate -daily dressing changes to bone graft site on hip -CM for DME -Discharged home today if DME's are acquired and family is willing to accept. He will need a ride back in 2 weeks for follow-up x-rays and examination of bilateral lower extremities -f/u with Stew or MADIHA in 2 weeks Ronald Hatch Jr. Jan 30, 2017 07:13
[2017-01-30 08:00] VITALS: BP 108/78; PULSE 78; RESP 18; TEMP 97.2; O2SAT 95
[2017-01-30] MEDS: INSULIN ASPART SUPPLEMENTAL SCALE SQ SCH ×2 (08:00→11:31)
[2017-01-30] MEDS: PROPRANOLOL HCL 10 MG TAB PO SCH (08:45)
[2017-01-30] MEDS: THIAMINE HCL 100 MG TAB PO SCH (08:45)
[2017-01-30] MEDS: CALCIUM CARBONATE 500 MG CHEWABLE TAB CHEW SCH (08:45)
[2017-01-30] MEDS: CALCIUM/VITAMIN D 250 MG/125 U TAB PO SCH ×2 (08:45→11:29)
[2017-01-30] MEDS: PANTOPRAZOLE SOD 40 MG DELAYED RELEASE TAB PO SCH (08:45)
[2017-01-30] MEDS: GABAPENTIN 300 MG CAP PO SCH ×2 (08:45→11:29)
[2017-01-30] MEDS: ASPIRIN 81 MG CHEW TAB CHEW SCH (08:45)
[2017-01-30] MEDS: FOLIC ACID 1 MG TAB PO SCH (08:45)
[2017-01-30] MEDS: ASCORBIC ACID 500 MG TAB PO SCH (08:45)
[2017-01-30] MEDS: LACTOBACILLUS ACIDOPHILUS TAB PO SCH ×2 (08:45→11:31)
[2017-01-30] MEDS: SODIUM CHLORIDE 0.9% FLUSH 5 ML FLUSH IVF SCH (09:00)
[2017-01-30] MEDS: DOCUSATE SODIUM 50 MG/SENNA 8.6 MG TAB PO SCH (09:00)
[2017-01-30] MEDS: SILVER SULFADIAZINE 1% CR 50 GM JAR TOP SCH (09:00)
[2017-01-30] MEDS: REMOVE OLD LIDOCAINE PATCH T-DERMAL SCH (09:00)
[2017-01-30] MEDS: NEOMYCIN/POLYMYXIN/BACITRACIN OINT 15 GM TUBE TOPICAL SCH (09:00)
[2017-01-30] MEDS: FLUTICASONE PROPIONATE 50 MCG/ACT 16 GM NASAL SPRAY NASAL SCH (09:00)
[2017-01-30] MEDS: FERROUS SULFATE 325 MG (65 MG ELEMENTAL IRON) TAB PO SCH (11:29)
[2017-01-30] MEDS: VANCOMYCIN 1,500 MG/NS 500 ML IV SCH ×2 (11:31)
--- NOTE | 2017-01-30 12:35 | HHI.PR ---
Addendum to Inpatient Note Addendum Reason: Additional Documentation Additional Information d/w who is Jessica HIGGINS for today. D.w in past 4 weeks IV followed by oral was ok with him. Ok to discharge home on oral doxy for 2 more weeks. Will sign off please call back if any change in clinical condition or questions. Lauren Reyez MD Jan 30, 2017 12:35
[2017-01-30] MEDS ORDERED: DOXY100C PO (12:36)
--- NOTE | 2017-01-30 13:08 | HHI.PR ---
Subjective Remarks late entry - patient seen on 01/28/17 at 3:15 pm Pain controlled no issues overnight denies cp/sob Objective Vitals Vital Signs Date Time Temp Pulse Resp B/P (MAP) Pulse Ox O2 Delivery O2 Flow Rate FiO2 01/30/17 08:00 97.2 78 18 108/78 (88) 95 01/29/17 19:25 98.3 76 14 117/87 (97) 97 01/29/17 16:00 98.0 70 18 112/69 (83) 98 I/O 01/29/17 01/29/17 01/29/17 01/30/17 01/30/17 01/30/17 07:00 15:00 23:00 07:00 15:00 23:00 Intake Total 720 ml 720 ml 495 ml 495 ml Output Total 1150 ml Balance -430 ml 720 ml 495 ml 495 ml Intake Oral 720 ml 720 ml IV Total 495 ml 495 ml Output Urine Total 1150 ml # Voids 2 # Bowel Movements 0 1 Result Diagram: 01/28/17 0651 01/29/17 0730 Objective Remarks AAOx3 Clear lungs BL abdomen soft, NT RLE: +short leg splint. intact. NVI. neg alina. [place] site clean and dry LLE: Clean dry dressings intact Dressing of bacitracin and Adaptic applied to skin graft. Soft dressings reapplied with 4 x 4's ABDs and Raul wrap. Procedures 1.s/p I&D with ex fix application bilateral tibias s/p wound vac application left tibia 2.With the assistance of RN, under sterile technique the avulsed skin of the right middle finger was clipped. No bleeding noted. Patient gave consent 3.Open reduction internal fixation of right distal tibia and fibula fractures Nonoperative treatment left tibial plateau fracture Irrigation and debridement of left tibia shaft fracture, removal external fixation, soleus muscle rotational flap, intramedullary nail fixation left tibia , application of wound VAC dressing 4.11/13 Irrigation and debridement of left tibia, application wound VAC dressing 5. 8 Irrigation and debridement of left open tibia fracture with application of wound VAC dressing 6. 12/01 wound vac change at the bedside 7. 8 wound vac change at the bedside 8. 8 wound vac change at the bedside 9. 12/09 I&D left tibia, application of wound VAC dressing and application of AlloMax allograft dermal matrix 10. 01/09 Removal of external fixation right lower extremity, irrigation debridement of left leg, split-thickness skin graft left leg, application wound VAC dressing 12. 01/23/17 S/P Left Leg debridement and application of allograft 13. 01/27/17 status post right tibia removal of hardware, open reduction internal fixation of her right distal tibia. Urinary Catheter: No Vascular Central Line Catheter: No A/P Problem List: (1) Fracture of tibia, left, open ICD Code: S82.202B - Unspecified fracture of shaft of left tibia, initial encounter for open fracture type I or II Status: Acute (2) Fracture of tibia, right, open ICD Code: S82.201B - Unspecified fracture of shaft of right tibia, initial encounter for open fracture type I or II Status: Acute (3) Right shoulder pain ICD Code: M25.511 - Pain in right shoulder Assessment and Plan Bilateral open tibia-fibula fractures Left tibial plateau fracture MRSA in wound- deep infection? - Open fractures have been surgically repaired, right side has external fixation - s/p Removal of external fixation right lower extremity, irrigation debridement of left leg, split-thickness skin graft left leg, application wound VAC dressing on 01/09 - left tibial plateau fracture treated nonoperatively - continue with pain control. -management per ortho: - wound culture ( leg) 12/23 positive for MRSA -on Vanco- plan for six weeks from the start date- per ID -monitor CBC/ CMP weekly. SP right tibia removal hardware, ORIF of right distal tibia on 01/27/17 Acute blood loss anemia JAMAR - Related to trauma vs post op blood loss - Status post transfusion of 2 units of packed red blood cells in 11/12/16. - on iron supplementation daily. - hemoglobin stable - monitor CBC as indicated Coronary artery disease with h/o previous CABG - Appears stable. Patient is asymptomatic. - Continue propranolol and statin - ASA 81mg daily - Clonidine PRN Hypertension - controlled - RAUL inhibitor held due to hypotension. Diabetes mellitus type 2 - blood sugars well controlled - accu checks discontinued Alcohol abuse Transaminitis, resolved - AST and ALT now within normal range. - Continue with daily thiamine and folic acid - Alcohol cessation recommended Tobacco abuse - Cessation recommended. Chronic essential tremor - Continue Propranolol Allergic rhinitis - Flonase Indigestion -Patient on Protonix and Maalox. DVT prophylaxis with Lovenox Discharge Planning Patient for wound VAC change on . Problem Qualifiers (1) Fracture of tibia, left, open: (2) Fracture of tibia, right, open: (3) Right shoulder pain: Qualified Codes: M25.511 - Pain in right shoulder; G89.29 - Other chronic pain Davis Tao MD Jan 30, 2017 13:08
--- NOTE | 2017-01-30 13:13 | HHI.PR ---
Subjective Remarks late entry - patient seen on 01/29/17 - note written on EMR remotely however for some reason not saved Patient c/o increased pain on right hip, however he was seen ambulating on wheel chair and without much distress. denies cp/sob denies fevers/chills no cough eating well Objective Vitals Vital Signs Date Time Temp Pulse Resp B/P (MAP) Pulse Ox O2 Delivery O2 Flow Rate FiO2 01/30/17 08:00 97.2 78 18 108/78 (88) 95 01/29/17 19:25 98.3 76 14 117/87 (97) 97 01/29/17 16:00 98.0 70 18 112/69 (83) 98 I/O 01/29/17 01/29/17 01/29/17 01/30/17 01/30/17 01/30/17 07:00 15:00 23:00 07:00 15:00 23:00 Intake Total 720 ml 720 ml 495 ml 495 ml Output Total 1150 ml Balance -430 ml 720 ml 495 ml 495 ml Intake Oral 720 ml 720 ml IV Total 495 ml 495 ml Output Urine Total 1150 ml # Voids 2 # Bowel Movements 0 1 Result Diagram: 01/28/17 0651 01/29/17 0730 Objective Remarks AAOx3 Clear lungs BL abdomen soft, NT RLE: +short leg splint. intact. NVI. neg alina. [place] site clean and dry LLE: Clean dry dressings intact Dressing of bacitracin and Adaptic applied to skin graft. Soft dressings reapplied with 4 x 4's ABDs and Raul wrap. Procedures 1.s/p I&D with ex fix application bilateral tibias s/p wound vac application left tibia 2.With the assistance of RN, under sterile technique the avulsed skin of the right middle finger was clipped. No bleeding noted. Patient gave consent 3.Open reduction internal fixation of right distal tibia and fibula fractures Nonoperative treatment left tibial plateau fracture Irrigation and debridement of left tibia shaft fracture, removal external fixation, soleus muscle rotational flap, intramedullary nail fixation left tibia , application of wound VAC dressing 4.11/13 Irrigation and debridement of left tibia, application wound VAC dressing 5. 11/28 Irrigation and debridement of left open tibia fracture with application of wound VAC dressing 6. 12/01 wound vac change at the bedside 7. 12/05 wound vac change at the bedside 8. 12/08 wound vac change at the bedside 9. 12/09 I&D left tibia, application of wound VAC dressing and application of AlloMax allograft dermal matrix 10. 01/09 Removal of external fixation right lower extremity, irrigation debridement of left leg, split-thickness skin graft left leg, application wound VAC dressing 12. 01/23/17 S/P Left Leg debridement and application of allograft 13. 01/27/17 status post right tibia removal of hardware, open reduction internal fixation of her right distal tibia. A/P Problem List: (1) Fracture of tibia, left, open ICD Code: S82.202B - Unspecified fracture of shaft of left tibia, initial encounter for open fracture type I or II Status: Acute (2) Fracture of tibia, right, open ICD Code: S82.201B - Unspecified fracture of shaft of right tibia, initial encounter for open fracture type I or II Status: Acute (3) Right shoulder pain ICD Code: M25.511 - Pain in right shoulder Assessment and Plan Bilateral open tibia-fibula fractures Left tibial plateau fracture MRSA in wound- deep infection? - Open fractures have been surgically repaired, right side has external fixation - s/p Removal of external fixation right lower extremity, irrigation debridement of left leg, split-thickness skin graft left leg, application wound VAC dressing on 01/09 - left tibial plateau fracture treated nonoperatively - continue with pain control. -management per ortho: - wound culture ( leg) 12/23 positive for MRSA -on Vanco- plan for six weeks from the start date- per ID -monitor CBC/ CMP weekly. SP right tibia removal hardware, ORIF of right distal tibia on 01/27/17 Acute blood loss anemia JAMAR - Related to trauma vs post op blood loss - Status post transfusion of 2 units of packed red blood cells in 11/12/16. - on iron supplementation daily. - hemoglobin stable - monitor CBC as indicated Coronary artery disease with h/o previous CABG - Appears stable. Patient is asymptomatic. - Continue propranolol and statin - ASA 81mg daily - Clonidine PRN Hypertension - controlled - RAUL inhibitor held due to hypotension. Diabetes mellitus type 2 - blood sugars well controlled - accu checks discontinued Alcohol abuse Transaminitis, resolved - AST and ALT now within normal range. - Continue with daily thiamine and folic acid - Alcohol cessation recommended Tobacco abuse - Cessation recommended. Chronic essential tremor - Continue Propranolol - Stable Allergic rhinitis - Flonase Indigestion -Patient on Protonix and Maalox. DVT prophylaxis with Lovenox Discharge Planning Possible Dc in am. Pending ID recommendations. Problem Qualifiers (1) Fracture of tibia, left, open: (2) Fracture of tibia, right, open: (3) Right shoulder pain: Qualified Codes: M25.511 - Pain in right shoulder; G89.29 - Other chronic pain Davis Tao MD Jan 30, 2017 13:13
--- NOTE | 2017-01-30 13:25 | HHI.DCPOC ---
Discharge Care Plan Diagnosis: (1) Fracture of tibia, left, open (2) Fracture of tibia, right, open (3) Acute blood loss anemia (4) Transaminitis (5) Alcohol abuse (6) Diabetes (7) HTN (hypertension) (8) CAD (coronary artery disease) (9) Indigestion (10) Tobacco abuse (11) Essential tremor (12) Allergic rhinitis Goals to Promote Your Health * To prevent worsening of your condition and complications * To maintain your health at the optimal level Directions to Meet Your Goals Take your medications as prescribed Follow your dietary instruction Follow activity as directed Keep your appointments as scheduled Take your immunizations and boosters as scheduled If your symptoms worsen call your PCP, if no PCP go to Urgent Care Center or Emergency Room Smoking is Dangerous to Your Health. Avoid second hand smoke Call the 24-hour hour crisis hotline for domestic abuse at Davis Tao MD Jan 30, 2017 13:25
[2017-01-30] MEDS ORDERED: HYDR-3583 PO (13:40)
[2017-01-30] MEDS ORDERED: FLUT50SP NASAL (13:40)
[2017-01-30] MEDS ORDERED: NEUR300C PO (13:40)
--- NOTE | 2017-01-30 13:42 | HHI.DS ---
Discharge Summary Admission Date Nov 07, 2016 at 14:21 Discharge Date: Jan 30, 2017 Admitting Diagnosis bilateral open tib/fib fxs (1) Fracture of tibia, left, open ICD Code: S82.202B - Unspecified fracture of shaft of left tibia, initial encounter for open fracture type I or II Status: Acute (2) Fracture of tibia, right, open ICD Code: S82.201B - Unspecified fracture of shaft of right tibia, initial encounter for open fracture type I or II Status: Acute (3) Right shoulder pain ICD Code: M25.511 - Pain in right shoulder (4) Acute blood loss anemia ICD Code: D62 - Acute posthemorrhagic anemia (5) CAD (coronary artery disease) ICD Code: I25.10 - Atherosclerotic heart disease of platinum coronary artery without angina pectoris (6) Diabetes ICD Code: E11.9 - Type 2 diabetes mellitus without complications (7) HTN (hypertension) ICD Code: I10 - Essential (primary) hypertension (8) Transaminitis ICD Code: R74.0 - Nonspecific elevation of levels of transaminase and lactic acid dehydrogenase [LDH] (9) Essential tremor ICD Code: G25.0 - Essential tremor (10) Indigestion ICD Code: K30 - Functional dyspepsia (11) Allergic rhinitis ICD Code: J30.9 - Allergic rhinitis, unspecified (12) Tobacco abuse ICD Code: Z72.0 - Tobacco use (13) Alcohol abuse ICD Code: F10.10 - Alcohol abuse, uncomplicated (14) Hypotension ICD Code: I95.9 - Hypotension, unspecified Status: Acute Procedures 1.s/p I&D with ex fix application bilateral tibias s/p wound vac application left tibia 2.With the assistance of RN, under sterile technique the avulsed skin of the right middle finger was clipped. No bleeding noted. Patient gave consent 3.Open reduction internal fixation of right distal tibia and fibula fractures Nonoperative treatment left tibial plateau fracture Irrigation and debridement of left tibia shaft fracture, removal external fixation, soleus muscle rotational flap, intramedullary nail fixation left tibia , application of wound VAC dressing 4.11/13 Irrigation and debridement of left tibia, application wound VAC dressing 5. 11/28 Irrigation and debridement of left open tibia fracture with application of wound VAC dressing 6. 12/01 wound vac change at the bedside 7. 12/05 wound vac change at the bedside 8. 12/08 wound vac change at the bedside 9. 12/09 I&D left tibia, application of wound VAC dressing and application of AlloMax allograft dermal matrix 10. 01/09 Removal of external fixation right lower extremity, irrigation debridement of left leg, split-thickness skin graft left leg, application wound VAC dressing 12. 01/23/17 S/P Left Leg debridement and application of allograft 13. 01/27/17 status post right tibia removal of hardware, open reduction internal fixation of her right distal tibia. Brief History - From Admission This is a 60sh male who was brought in as a TRAUMA ALERT. He was working on a car when the car apparently slipped off the blocks. The car pinned him against a wall. He had severe bilateral leg pain and sustained bilateral open tibial and fibular fractures. He underwent I and D and external fixation. Wound VAC has been applied on the left lower extremity. He is on IV Ancef and gentamicin. Consultation has been requested by patient's attending to evaluate and manage multiple medical conditions which are CAD, hypertension and diabetes mellitus. He underwent CABG in 2010 and has been pain-free on aspirin, lisinopril, propranolol and pravastatin. He also has hypertension which is controlled on RAUL inhibitor and beta gil. He also has diabetes mellitus also stable on metformin. CBC/BMP: 01/28/17 0651 01/29/17 0730 Significant Findings Laboratory Tests Test 01/28/17 00:15 01/28/17 06:51 01/29/17 07:30 Vancomycin Level Trough 14.6 MCG/ML (5.0-10.0) Hemoglobin 11.5 GM/DL (13.0-17.0) Hematocrit 35.0 % (39.0-51.0) Imaging Last Impressions Ankle X-Ray 01/27/17 0000 Signed Impressions: Service Date/Time: Friday, January 27, 2017 10:46 - CONCLUSION: Limited images as detailed above. Behzad Finch Jr., MD Chest X-Ray 01/23/17 0000 Signed Impressions: Service Date/Time: Monday, January 23, 2017 13:10 - CONCLUSION: 1. No acute cardiopulmonary disease. Sukhi Stevens MD Tibia/Fibula X-Ray 01/22/17 0000 Signed Impressions: Service Date/Time: January 09:18 - CONCLUSION: Satisfactory postop appearance Jonathan Amezquita MD Knee X-Ray 01/01/17 0000 Signed Impressions: Service Date/Time: December 09:37 - CONCLUSION: Lateral tibial plateau fracture without involvement of the articulating surface. Paul Fuentes MD Foot X-Ray 12/27/16 0000 Signed Impressions: Service Date/Time: Tuesday, December 27, 2016 16:50 - CONCLUSION: Distal tibia and fibula fractures with internal fixation hardware. Samir Massey MD Gall Bladder Ultrasound 12/05/16 0000 Signed Impressions: Service Date/Time: Monday, December 05, 2016 08:38 - CONCLUSION: Unremarkable exam. Gallbladder is within normal limits with no evidence of cholelithiasis. Ronald Rao MD Abdomen X-Ray 12/04/16 0000 Signed Impressions: Service Date/Time: November 10:42 - CONCLUSION: Unremarkable bowel gas pattern. Ronald Rao MD Pelvis X-Ray 11/07/16 1355 Signed Impressions: Service Date/Time: Monday, November 07, 2016 13:34 - CONCLUSION: No acute disease. Behzad Finch Jr., MD PE at Discharge AAOx3 Clear lungs BL abdomen soft, NT RLE: +short leg splint. intact. NVI. neg alina. Gantt site clean and dry LLE: Clean dry dressings intact Dressing of bacitracin and Adaptic applied to skin graft. Soft dressings reapplied with 4 x 4's ABDs and Raul wrap. Pt update on day of discharge Patient states pain is controlled. Denies any fevers or chills. Denies cough, denies chest pain or shots of breath. Discussed case with Dr. Reyez, she states that she can treat the patient to oral doxycycline. Patient has been cleared by the pediatric surgery, plastic surgery and infectious disease to be discharge home. Pt Condition on Discharge: Stable Discharge Disposition: Discharge Home Discharge Time: > 30 minutes Discharge Instructions DIET: Follow Instructions for: As Tolerated, No Restrictions Activities you can perform: See Additionl Instruction Other Activity Instructions: LLE: - progress to weightbearing as tolerated -daily dressing changes of harvest site. change ABD only. leave xeroform in place. RLE: -NWB -maintain splint at all times -elevate -daily dressing changes to bone graft site on hip -CM for DME Follow up Referrals: Orthopedics - 2 Weeks with Salbador Mathias MD PCP Follow-up - 1 Week New Medications: Bedside Commode (Bedside Commode) 1 Mis Mis 1 EA .ROUTE DIRECTED, #1 EA Commode 3-in-1 (Commode 3-in-1) 1 Mis Mis 1 EA .ROUTE DIRECTED, #1 EA 0 Refills Doxycycline Hyclate (Doxycycline Hyclate) 100 Mg Cap 100 MG PO BID for MRSA infection leg for 14 Days, #28 CAP 0 Refills Tub Transfer Board (Tub Transfer Board) 1 Mis Mis 1 EA .ROUTE DIRECTED, #1 EA Walker/Adult/Folding (Walker/Adult/Folding) 1 Mis Mis EA .ROUTE DIRECTED, #1 0 Refills Wheelchair Elevated Leg (Wheelchair Elevated Leg) 1 Mis Mis 1 EA .ROUTE DIRECTED, #1 EA 0 Refills Fluticasone Nasal [place] (Fluticasone Nasal [place]) 50 Mcg/Act Naspr 1 SPRAY NASAL BID for Allergies, #1 BOTTLE 50 mcg/spray Gabapentin (Neurontin) 300 Mg Cap 600 MG PO TID for neuropathy, #93 CAP Hydrocodone-Acetaminophen (Hydrocodone-Acetaminophen) 10-325 mg Tab 1 TAB PO Q4H PRN for PAIN SCALE 1 TO 10, #60 TAB Magnesium Hydroxide (Eq Milk of Magnesia) 1,200 Mg/15 Ml Gracy 30 ML PO DAILY PRN for for Severe Constipation for 30 Days, ML Sennosides-Docusate Sodium (Senna Plus 8.6-50 mg) 1 Tab Tab 1 TAB PO BID for Constipation for 30 Days, TAB Continued Medications: Aspirin (Aspirin) 81 Mg Chew 81 MG CHEW DAILY, TAB 0 Refills Ferrous Sulfate (Ferrous Sulfate) 325 Mg (65 Mg Iron) Tablet 325 MG PO DAILY for Nutritional Supplement, #30 TAB 0 Refills Lisinopril (Lisinopril) 5 Mg Tab 25 MG PO DAILY for Blood Pressure Management, #30 TAB 0 Refills Metformin (Metformin) 500 Mg Tab 500 MG PO BIDPC for Blood Sugar Management, #60 TAB 0 Refills With meals Nitroglycerin SL (Nitroglycerin SL) 0.4 Mg Subl 0.4 MG SL DIRECTED PRN for CHEST PAIN, #100 TAB.SL 0 Refills ONE TABLET UNDER THE TONGUE NEEDED FOR CHEST PAIN, MAY REPEAT EVERY FIVE MINUTES FOR A TOTAL OF 3 DOSES OR CALL 911 IF NO RELIEF Pantoprazole (Protonix) 40 Mg Tab 40 MG PO DAILY for Reflux, #30 TAB 0 Refills Pravastatin (Pravastatin) 80 Mg Tab 80 MG PO DAILY for Cholesterol Management, #30 TAB 0 Refills Propranolol (Propranolol) 80 Mg Tab 80 MG PO Q12HR, #60 TAB 0 Refills Davis Tao MD Jan 30, 2017 13:42
== END 2017-01-30 14:18 | disposition home or self-care (01) | DRG 464 ==
LOC: NEPI 13:53 → NEDA 14:21 → EDBD 14:21 → N06A 20:30
PROVIDERS: ADMIT Hospitalist; ATTEND Hospitalist
PROC: 0QSG04Z Reposition Right Tibia with Internal Fixation Device, Open Approach (ICD-10-PCS; 2016-11-07)
PROC: 0QSH04Z Reposition Left Tibia with Internal Fixation Device, Open Approach (ICD-10-PCS; 2016-11-07)
PROC: 0QSH35Z Reposition Left Tibia with External Fixation Device, Percutaneous Approach (ICD-10-PCS; 2016-11-07)
PROC: 0QSG35Z Reposition Right Tibia with External Fixation Device, Percutaneous Approach (ICD-10-PCS; 2016-11-07)
PROC: 0QSJ04Z Reposition Right Fibula with Internal Fixation Device, Open Approach (ICD-10-PCS; principal; 2016-11-07 16:02)
PROC: 0KBT0ZZ Excision of Left Lower Leg Muscle, Open Approach (ICD-10-PCS; 2016-11-10)
PROC: 0QBH0ZZ Excision of Left Tibia, Open Approach (ICD-10-PCS; 2016-11-10)
PROC: 0KX Muscles, Transfer (ICD-10-PCS; 2016-11-10)
PROC: 0QSJ04Z Reposition Right Fibula with Internal Fixation Device, Open Approach (ICD-10-PCS; 2016-11-10)
PROC: 0QSG04Z Reposition Right Tibia with Internal Fixation Device, Open Approach (ICD-10-PCS; 2016-11-10)
PROC: 0QPH05Z Removal of External Fixation Device from Left Tibia, Open Approach (ICD-10-PCS; 2016-11-10)
PROC: 0QSH06Z Reposition Left Tibia with Intramedullary Internal Fixation Device, Open Approach (ICD-10-PCS; 2016-11-10)
PROC: 0QPJX5Z Removal of External Fixation Device from Right Fibula, External Approach (ICD-10-PCS; 2016-11-10)
PROC: 30233N1 Transfusion of Nonautologous Red Blood Cells into Peripheral Vein, Percutaneous Approach (ICD-10-PCS; 2016-11-12)
PROC: 0QBH0ZZ Excision of Left Tibia, Open Approach (ICD-10-PCS; 2016-11-13)
PROC: 0HRLXK3 Replacement of Left Lower Leg Skin with Nonautologous Tissue Substitute, Full Thickness, External Approach (ICD-10-PCS; 2016-12-09)
PROC: 0KBT0ZZ Excision of Left Lower Leg Muscle, Open Approach (ICD-10-PCS; 2016-12-09)
PROC: 0HRLX74 Replacement of Left Lower Leg Skin with Autologous Tissue Substitute, Partial Thickness, External Approach (ICD-10-PCS; 2017-01-09)
PROC: 0HBJXZZ Excision of Left Upper Leg Skin, External Approach (ICD-10-PCS; 2017-01-09)
PROC: 0JBP0ZZ Excision of Left Lower Leg Subcutaneous Tissue and Fascia, Open Approach (ICD-10-PCS; 2017-01-09)
PROC: 0HRLXK3 Replacement of Left Lower Leg Skin with Nonautologous Tissue Substitute, Full Thickness, External Approach (ICD-10-PCS; 2017-01-23)
PROC: 0LBP0ZZ Excision of Left Lower Leg Tendon, Open Approach (ICD-10-PCS; 2017-01-23)
PROC: 0QSG04Z Reposition Right Tibia with Internal Fixation Device, Open Approach (ICD-10-PCS; 2017-01-27)
PROC: 0QB20ZZ Excision of Right Pelvic Bone, Open Approach (ICD-10-PCS; 2017-01-27)
PROC: 0QPG04Z Removal of Internal Fixation Device from Right Tibia, Open Approach (ICD-10-PCS; 2017-01-27)
PROC: 0QBG0ZZ Excision of Right Tibia, Open Approach (ICD-10-PCS; 2017-01-27)
PROC: 0QSG04Z Reposition Right Tibia with Internal Fixation Device, Open Approach (ICD-10-PCS; 2017-01-27)
PROC: 0QUG07Z Supplement Right Tibia with Autologous Tissue Substitute, Open Approach (ICD-10-PCS; 2017-01-27)
DX: S82.251C Displaced comminuted fracture of shaft of right tibia, initial encounter for open fracture type IIIA, IIIB, or IIIC (principal); D62 Acute posthemorrhagic anemia; E11.649 Type 2 diabetes mellitus with hypoglycemia without coma; I95.9 Hypotension, unspecified; E87.1 Hypo-osmolality and hyponatremia; S82.301M Unspecified fracture of lower end of right tibia, subsequent encounter for open fracture type I or II with nonunion; E87.5 Hyperkalemia; I10 Essential (primary) hypertension; S82.255B Nondisplaced comminuted fracture of shaft of left tibia, initial encounter for open fracture type I or II; S82.452B Displaced comminuted fracture of shaft of left fibula, initial encounter for open fracture type I or II; E11.9 Type 2 diabetes mellitus without complications; F17.210 Nicotine dependence, cigarettes, uncomplicated; I25.10 Atherosclerotic heart disease of native coronary artery without angina pectoris; S89.101A Unspecified physeal fracture of lower end of right tibia, initial encounter for closed fracture; S89.301A Unspecified physeal fracture of lower end of right fibula, initial encounter for closed fracture; W23.0XXA Caught, crushed, jammed, or pinched between moving objects, initial encounter; Z95.1 Presence of aortocoronary bypass graft; E78.5 Hyperlipidemia, unspecified; F10.10 Alcohol abuse, uncomplicated; G25.0 Essential tremor; G47.00 Insomnia, unspecified; G89.29 Other chronic pain; H91.90 Unspecified hearing loss, unspecified ear; K21.9 Gastro-esophageal reflux disease without esophagitis; K59.00 Constipation, unspecified; M19.011 Primary osteoarthritis, right shoulder; J30.9 Allergic rhinitis, unspecified; L30.9 Dermatitis, unspecified; Z86.73 Personal history of transient ischemic attack (TIA), and cerebral infarction without residual deficits; Z95.5 Presence of coronary angioplasty implant and graft; Z16.24 Resistance to multiple antibiotics; K30 Functional dyspepsia; R00.1 Bradycardia, unspecified; R19.7 Diarrhea, unspecified; R11.2 Nausea with vomiting, unspecified; D72.829 Elevated white blood cell count, unspecified
CPT/HCPCS: 36430; 71010; 72170; 73560; 73590; 73600; 73610; 73620; 74000; 76000; 76705; 76937; 80048; 80053; 80202; 81001; 82435; 82565; 82728; 82947; 82948; 83036; 83540; 83550; 83605; 83690; 83735; 83930; 83935; 84100; 84132; 84295; 84520; 85007; 85014; 85018; 85025; 85027; 85610; 85730; 86140; 86850; 86900; 86901; 86920; 87040; 87070; 87205; 90471; 90715; 93005; 94150; 94640; 94664; 96374; 99291; C1713; C1769; C9113; G0390; J0131; J0690; J0780; J1100; J1170; J1580; J1650; J1815; J1885; J1940; J2175; J2250; J2270; J2370; J2405; J2710; J3010; J3370; J7030; J7040; J7050; J7120; J7613; L2114; P9016; Q0163; Q4100; V2790